=== PATIENT | female | born 1970 | race Caucasian/White ===

== ENCOUNTER 2019-10-23 17:35 | Emergency (ER) | payer MEDICAID, SELFPAY ==
[2019-10-23 17:37] VITALS: BP 143/87; PULSE 94; RESP 17; TEMP 36.8; O2SAT 99; BMI 20.7
[2019-10-23 18:18] LABS: Bacteria 0 SEEN /hpf (None Seen); Mucous, Urine 0 SEEN /hpf (<or=2+); Red Blood Cells-Urine 0 SEEN /hpf (0-5); White Blood Cells 0 SEEN /hpf (0-5)
[2019-10-23 18:25] LABS: Basophil# 0.09 X10^3/uL; Basophil% 0.6 % (0-1); Eosinophil# 0.33 X10^3/uL; Eosinophils% 2.2 % (0-5); Hematocrit 46.1 % (37-47); Lymphocyte % 22.9 % (19-41); Mean Corp Hgb Conc 32.5 g/dL (32-36); Mean Corpuscular Hgb 29.1 pg (27.0-32.0); Mean Corpuscular Volume 89.5 fL (81-99); Mean Platelet Vol. 10.6 fl (6.2-12.0); Monocyte# 0.98 X10^3/uL; Monocyte% 6.6 % (0-10); NRBC Flagged by Analyzer 0 % (0-5); Neutrophil % 67.4 % (47-70); Platelet Count 397 K/mm3 (150-450); RBC Distribution Width CV 14.6 % (11.6-14.6); RBC Distribution Width SD 48.4 fl (35.1-43.9); Red Blood Count 5.15 M/mm3 (4.2-5.4); White Blood Count 14.9 K/mm3 (4.4-11.0)
[2019-10-23 18:35] LABS: Color, Urine Yellow (Yellow); Glucose, Dipstick Normal (Normal); Ketone-Dipstick Negative (Negative); Leukocyte Esterase-Dipstick Negative /ul (Negative); Nitrite-Dipstick Negative (Negative); Occult Blood-Urine Negative /ul (Negative); Protein-Dipstick Negative (Negative); Specific Gravity, Urine 1.005 (1.002-1.030); Urine Bilirubin Dipstick Negative (Negative); Urine Clarity Clear (Clear); Urine Urobilinogen Normal (Normal)
[2019-10-23 18:36] LABS: Anion Gap 4 (5-15); BUN 13 mg/dL (7-18); BUN/Creat Ratio 16.6 RATIO (10-20); Calcium,Total 9.6 mg/dL (8.5-10.1); Chloride 103 mmol/L (98-107); Creatinine, Serum 0.78 mg/dL (0.55-1.02); EST Glomerular Filtration Rate 83 mL/min (>60); Est Glom Filt Rate - Afr Amer 100 mL/min (>60); Estimated Creatinine Clearance 65.84 ml/min; Glucose 87 mg/dL (74-106); Potassium 3.8 mmol/L (3.5-5.1); Sodium Level 138 mmol/L (136-145)
[2019-10-23 18:38] LABS: D-Dimer Quantitative (DVT/PE) 0.37 FEU/ug/m (0.27-0.49)
[2019-10-23 18:40] LABS: Squamous Epithelial Cells - UA 0-5 SEEN /hpf (5-10)
--- NOTE | 2019-10-23 18:48 | ED.VISSUMM ---
- ER Visit Summary Date of Service: 10/23/19 Chief Complaint: [Back pain] History of Present Illness: The patient is a 48 F [presents the emergency department complaining of right mid back. Patient states she said the pain there for about 2 days. Patient states it came on suddenly. She rates it as an 8 out of 10 currently and is sharp and stabbing and worse with deep breath and certain movements. Patient denies any trauma. She denies urinary symptoms. She denies recent travel or surgery. She denies any hemoptysis. She denies any fever or cough. She denies chest pain otherwise. She denies any paresthesias or pain radiating into the arms or legs. Patient has history of COPD.] Physical Examination: [HEENT-PERRLA, EOMI. Head atraumatic. Cardiovascular-heart] is regular rate and rhythm without murmurs. No rubs or clicks noted. Lungs-good aeration bilaterally. Patient does have some faint expiratory wheezes noted bilaterally. No excessive muscle use or retractions noted. Patient does have tenderness to palpation over the right posterior ribs on percussion. No rashes noted. No erythema or warmth noted. Abdomen-soft and not tender. No rebound, rigidity, or peritoneal signs. Extremities-intact x4, no edema, negative Homans sign, neurovascular intact Test Results: [CBC with differential count 14.9, hemoglobin 15, hematocrit 46, platelet 397. Chemistries unremarkable. Urinalysis was normal. D-dimer was normal 0.37. Chest x-ray showed nothing acute.] Emergency Department Course and Treatment: [Patient was medicated with 4 mg of morphine and 4 mg of Zofran.] Treatment Plan: [Patient will be given a prescription for [place] for pain. Patient advised to follow-up with primary care physician in 3 to 5 days.] Disposition: [Discharged home in stable condition] Impression: [Back pain] This note was generated with [employer] dictation software. It may contain incorrect words, spelling, and punctuation that were not noted in review of the chart prior to signing ED Disposition - Plan for ED Patient: Referrals: Amanda Gross MD [Primary Care Provider] -
--- NOTE | 2019-10-23 18:55 | RAD_ITS ---
STUDY: X-RAY CHEST REASON FOR EXAM: Female, 48 years old. RIGHT SIDED POSTERIOR RIB PAIN RADIATING THROUGH FLANK AND INTO ANTERIOR RIBS TECHNIQUE: PA and lateral views of the chest. COMPARISON: 04/06/2016. FINDINGS: Cardiac silhouette unremarkable. Pulmonary vascularity unremarkable. Aorta unremarkable. Hyperinflated lungs. No focal opacities. No pleural effusions. Upper abdomen unremarkable. Osseous structures intact. No pneumothorax. RAD/Chest PA and Lateral IMPRESSION: Hyperinflated lungs. No acute cardiopulmonary findings. Electronically Signed: Javan Zazueta, at 19:12 EDT Tel , Service support ,
[2019-10-23] MEDS: Morphine 4 MG/ML Syringe IV (19:10)
[2019-10-23] MEDS: Ondansetron 4 MG/2 ML Vial IV (19:10)
--- NOTE | 2019-10-23 19:30 | DCINST.ED_ITS ---
ED Disposition - Plan for ED Patient: Instructions: ED Neck Back Pain General, ED Spasm Back No Trauma Prescriptions: Hydrocodone Bitart/Apap 5-325 [[place] 5MG-325MG] 1 tablet PO Q4H PRN PRN 2 Days #15 tablet PRN Reason: Pain Transmission Status: Sent to [id number] Referrals: Amanda Gross MD [Primary Care Provider] - 3-5 Days
--- NOTE | 2019-10-23 19:30 | ED.DEP ---
ED Disposition - Plan for ED Patient: Instructions: ED Neck Back Pain General, ED Spasm Back No Trauma Prescriptions: Hydrocodone Bitart/Apap 5-325 [[place] 5MG-325MG] 1 tablet PO Q4H PRN PRN 2 Days #15 tablet PRN Reason: Pain Transmission Status: Sent to [facility] [id number] Referrals: Amanda Gross MD [Primary Care Provider] - 3-5 Days
[2019-10-23 19:58] VITALS: BP 140/74; PULSE 88; RESP 16; O2SAT 97
--- NOTE | 2019-10-24 09:45 | ED.RN ---
[facility] CALLED TO CLARIFY [place] PRESCRIPTION. PER DR ZALDIVAR CHANGE QUANTITY TO 12 TABLETS
== END 2019-10-23 19:59 | disposition home or self-care (01) ==
LOC: ED 18:49
PROVIDERS: Emergency Provider Emergency Medicine; PCP Internal Medicine
DX: M54.9 Dorsalgia, unspecified (principal); J44.9 Chronic obstructive pulmonary disease, unspecified; R06.00 Dyspnea, unspecified; Z72.0 Tobacco use
CPT/HCPCS: 71046; 80048; 81001; 85025; 85379; 96374; 96375; 99283; A4216; J2405

== ENCOUNTER 2020-05-27 17:51 | Emergency (ER) | payer MEDICAID, SELFPAY ==
[2020-05-27] VITALS (7 sets, daily range): BP systolic 110–136; BP diastolic 72–90; PULSE 76–103; RESP 16–24; TEMP 36.3; O2SAT 94–99; BMI 20.4
--- NOTE | 2020-05-27 18:01 | EKG12_ITS ---
Test Reason : CP Blood Pressure : / mmHG Vent. Rate : 091 BPM Atrial Rate : 091 BPM P-R Int : 168 ms QRS Dur : 080 ms QT Int : 354 ms P-R-T Axes : 090 086 083 degrees QTc Int : 435 ms Normal sinus rhythm Right atrial enlargement Borderline ECG Confirmed by LYNDSAY ROCHA, NGOZI ([id number]), content editor MAMI RIVERA ([id number]) on 05/31/2020 9:43:51 AM Referred By: Confirmed By:NGOZI UMANA MD
--- NOTE | 2020-05-27 18:05 | RAD_ITS ---
TECHNIQUE: STUDY: X-RAY CHEST REASON FOR EXAM: Female, 49 years old. TREATED FOR BRONCHITIS 2 WKS AGO. NOW CHEST PAIN, MUSCLE ACHES, SOB AND TROUBLE BREATHING. TECHNIQUE: Single frontal view of the chest. COMPARISON: 10/23/2019. FINDINGS: Cardiac silhouette unremarkable. Pulmonary vascularity unremarkable. Aorta unremarkable. No focal airspace opacities. No pleural effusions. Bilateral hyperinflation. Upper abdomen unremarkable. Osseous structures intact. No pneumothorax. RAD/Chest 1 View (Portable) IMPRESSION: Pulmonary hyperinflation may indicate an element of COPD. No focal consolidation. Electronically Signed: Javan Zazueta, at 19:51 EST Tel , Service support ,
[2020-05-27 19:14] LABS: Absolute Lymphocyte Count 3.12 X10^3/uL (0.83-4.51); Absolute Neutrophil Count 15.1 X10^3/uL (2.0-7.7); Basophil# 0.05 X10^3/uL; Basophil% 0.3 % (0-1); Eosinophil# 0.26 X10^3/uL; Eosinophils% 1.3 % (0-5); Hematocrit 44.2 % (37-47); Hemoglobin 14.2 g/dL (12.0-15.0); Lymphocyte # 3.12 X10^3/ul (4.0); Mean Corp Hgb Conc 32.1 g/dL (32-36); Mean Corpuscular Hgb 28.2 pg (27.0-32.0); Mean Corpuscular Volume 87.9 fL (81-99); Mean Platelet Vol. 10.2 fl (6.2-12.0); Monocyte# 0.93 X10^3/uL; Monocyte% 4.8 % (0-10); NRBC Flagged by Analyzer 0 % (0-5); Neutrophil # 15.06 X10^3/uL (2.7-7.7); Neutrophil % 77.2 % (47-70); Platelet Count 408 K/mm3 (150-450); RBC Distribution Width CV 14.4 % (11.6-14.6); RBC Distribution Width SD 45.9 fl (35.1-43.9); Red Blood Count 5.03 M/mm3 (4.2-5.4); White Blood Count 19.5 K/mm3 (4.4-11.0)
--- NOTE | 2020-05-27 19:18 | ED.DCSUM_ITS ---
History of Present Illness Chief Complaint: Chest Pain Informant: Patient Onset: Weeks Context: Gradual Onset Timing: Continuous Quality: Dyspnea, dyspnea on exertion and wheezing nonproductive cough Location: Respiratory Current Severity: Mild Maximum Severity: Moderate Worsened by: Cough and activity Relieved by: Nothing Associated Symptoms: No associated fever, chills or night sweats. No loss of taste or smell. Narrative: Patient is a 49-year-old woman who presents with shortness of breath, nonproductive cough and wheezing. Patient states she was treated with antibiotics 2 weeks ago with no improvement. She is a smoker. She normally smokes about 1 pack/day. She is now smoking 2 cigarettes a day. She does report nasal congestion which she attributes to allergies. She denies postnasal drainage and sore throat. Denies loss of taste or smell. She denies exposure to anyone that is been diagnosed with Covid. She denies headache, photophobia, neck pain or neck stiffness. She denies rash. She denies leg pain, swelling di scoloration. She has no history of VTE. She does report aches in her upper and lower extremity. The aches started 2 days ago. Prior similar symptoms: Yes Recent Illness/Hospitalization: Yes - Past Medical History (1) COPD (chronic obstructive pulmonary disease) Status: Acute (2) Tobacco abuse Status: Acute (3) Cervical cancer Status: Chronic Past Medical History - Allergies and Home Meds Allergies/Adverse Reactions: Allergies Penicillins [PCN] Allergy (Verified 10/23/19 17:37) Anaphylaxis Primary Care Physician: Amanda Gross MD [Primary Care Provider] - Prior records reviewed: Yes Surgical History: noncontributory, - - Total abdominal hysterectomy for cervical cancer Lives: Alone Smoking Status: Current every day smoker Alcohol: Rare Drugs: None - Family History Maternal Family History: Reports: - - Aneurysm of abdomen Paternal Family History: Reports: Cancer - Stomach Review of Systems General: Reports: Malaise. Denies: Chills, Fever, Subjective, Sweats Eyes: Denies: Visual changes - bilaterally, Blurred Vision - bilaterally ENT: Denies: Bilateral ear pain, Rhinorrhea, Sore throat Cardiovascular: Denies: Chest pain, Palpitations Respiratory: Reports: Dyspnea, Cough, Dyspnea on exertion. Denies: Sputum, Orthopnea, Paroxysmal nocturnal dyspnea Gastrointestinal: Denies: Abdominal pain, Nausea, Vomiting, Diarrhea, Melena, Hematochezia Genitourinary: Denies: Dysuria, Hematuria, Frequency Musculoskeletal: Reports: Myalgias, Arthralgias. Denies: Neck pain, Back pain, Swelling, Extremity Pain, -, - Skin: Denies: Rash, Wounds Neurological: Reports: Weakness. Denies: Headache, Parasthesia Endocrine: Denies: Polyuria, Polydipsia Hematologic: Denies: Easy bruising, Easy bleeding Physical Exam Vital Signs/Narrative: Vital Signs Temp Pulse Resp BP Pulse Ox 05/27/20 18:52 91 21 H 110/90 H 98 05/27/20 18:51 98 05/27/20 17:55 97.4 F L 103 H 18 129/85 H 98 05/27/20 17:53 97.4 F L 101 H 18 129/85 H 99 Inital Vital Signs reviewed: Yes General: Well nourished, Well developed, No Acute Distress Head: Normocephalic, Atraumatic Eyes: Perrl, EOMI. Negative for: Pale conjunctiva, Scleral icterus ENT: Moist mucous membranes, No rhinorrhea, TM's clear Neck: Supple, Nontender, No lymphadenopathy, No JVD Cardiovascular: Regular rhythm, No murmurs, Normal S1, Normal S2, Tachycardia Respiratory: No distress, Chest nontender, Wheezing, Decreased Air Movement. Negative for: CTA bilaterally, Retractions Abdomen: Soft, Nontender, Nondistended, Normal bowel sounds Rectal: Deferred Back: Nontender, Normal Inspection Extremities: Nontender, No edema Skin: Normal color, No rash, No Trauma. Negative for: Cyanosis, Diaphoresis, Jaundice Neurological: Alert, Oriented x3, Cranial nerves II-XII grossly intact, Normal Strength, Normal Sensation, Normal DTR Psychological: Normal affect Diagnostic/Tx/Re-eval Chest X-Ray - ED: 1 View, Read by ED Physician, Normal, Heart, No Acute Disease, Chronic Changes, - - Chronic changes with hyper aeration. No infiltrate, CHF, effusion or pneumothorax. Impressions Chest X-Ray 05/27/20 18:05 IMPRESSION: Pulmonary hyperinflation may indicate an element of COPD. No focal consolidation. Electronically Signed: Javan Zazueta, at 19:51 EST Tel , Service support , 05/27/20 18:05 Chest 1 View (Portable) [RAD] Stat Laboratory Results 05/27/20 05/27/20 05/27/20 16:45 16:45 16:45 WBC 19.5 H RBC 5.03 Hgb 14.2 Hct 44.2 MCV 87.9 MCH 28.2 MCHC 32.1 RDW Std Deviation 45.9 H RDW Coeff of Rui 14.4 Plt Count 408 MPV 10.2 Immature Gran % (Auto) 0.400 Neut % (Auto) 77.2 H Lymph % (Auto) 16.0 L Elbert % (Auto) 4.8 Eos % (Auto) 1.3 Baso % (Auto) 0.3 Absolute Neuts (auto) 15.1 H Absolute Lymphs (auto) 3.12 Nucleated RBC % 0 PT 15.1 H INR 1.2 Sodium 140 Potassium 4.3 Chloride 108 H Carbon Dioxide 28.0 Anion Gap 4 L BUN 14 Creatinine 0.85 Estim Creat Clear Calc 59.75 Est GFR (MDRD) Af Amer 91 Est GFR (MDRD) Non-Af 75 BUN/Creatinine Ratio 16.5 Glucose 117 H Calcium 9.2 Troponin I < 0.015 - EKG Initial EKG Interpretation: Sinus Rhythm - Normal sinus rhythm with ventricular rate of 91. ID interval is 168 ms. QRS duration 80 ms. QT duration 3 and 54 ms. [place] is normal. There may be right atrial enlargement. - Medical Decision Making Bacterial infection, COPD exacerbation, viral infection including Covid. Patient has an elevated white count. This may be due to high-dose prednisone. Since she is a smoker we will treat with doxycycline for typical atypical coverage. She was informed to take NSAIDs and she has no contraindication for her chest discomfort. ED Disposition - Plan for ED Patient: Disposition: Home or Assisted Living Diagnosis: Bronchitis, Bronchospasm, Tobacco use Instructions: ED Upper Resp Infec Abx Tx Prescriptions: Doxycycline 100 mg PO BID #14 cap Prescription Printed Referrals: Amanda Gross MD [Primary Care Provider] - 3-5 Days if not improving Additional Instructions: 1. It is in your best interest to quit smoking 2. Take antibiotics until gone 3. If you have Advil take 4 tablets every 8 hours for the next 3 to 5 days. 4. If you have Aleve take 2 tablets every 12 hours for the next 3 to 5 days
[2020-05-27 19:27] LABS: Anion Gap 4 (5-15); BUN 14 mg/dL (7-18); BUN/Creat Ratio 16.5 RATIO (10-20); Calcium,Total 9.2 mg/dL (8.5-10.1); Chloride 108 mmol/L (98-107); Creatinine, Serum 0.85 mg/dL (0.55-1.02); EST Glomerular Filtration Rate 75 mL/min (>60); Est Glom Filt Rate - Afr Amer 91 mL/min (>60); Estimated Creatinine Clearance 59.75 ml/min; Glucose 117 mg/dL (74-106); Potassium 4.3 mmol/L (3.5-5.1); Sodium Level 140 mmol/L (136-145)
[2020-05-27 19:32] LABS: International Normalized Ratio 1.2; Prothrombin Time (Protime)PT. 15.1 SECONDS (11.7-14.9)
[2020-05-27] MEDS: Naproxen 500 MG Tablet PO (22:08)
[2020-05-27] MEDS: Doxycycline 100 MG CAPSULE PO (22:08)
== END 2020-05-27 22:12 | disposition home or self-care (01) ==
PROVIDERS: Emergency Provider Emergency Medicine; PCP Internal Medicine
DX: J40 Bronchitis, not specified as acute or chronic (principal); J98.01 Acute bronchospasm; F17.210 Nicotine dependence, cigarettes, uncomplicated; Z85.41 Personal history of malignant neoplasm of cervix uteri; Z88.0 Allergy status to penicillin
CPT/HCPCS: 71045; 80048; 84484; 85025; 85610; 93005; 99285; A4216

== ENCOUNTER 2021-03-03 09:30 | Outpatient (RCR) | payer MEDICAID, SELFPAY ==
[2020-05-27 17:53] VITALS: BMI 20.4
--- NOTE | 2021-02-08 16:33 | HP.PTEVAL_ITS ---
Patient's Visit Information KARSON SALGADO is a 50 year old F referred to Physical Therapy by MADHAV DOWNING with a diagnosis of ACUTE KNEE PAIN. Date of Evaluation: 02/08/21 Physical Therapist: Drew Johnston, PT, Cert MDT, OCS - Visit Plan Frequency: 2x /Week Duration: 4 Weeks Plan: PT INTERVTIONS ROM,GRADED STRENGTHNEING QUADS/HAMS/HIP ,NUSTEP/BIKE JYOTI, MODALTIES AND FUNCTIONAL STRENGTHENING - Subjective This 50 y/o female presents to physical therapy with right knee pain. Patient injured at work fell off step stool twisted right knee with immediate pain DOI ~ 3weeks ago. Patient went to ER x-rays - for fracture and provided with crutches. Recommended Orthopedic consult thinks possible meniscus tear . MD wanted to try PT for 4weeks before doing MRI. Patient pain located anterior knee and medial aspect. Patient is unable to stand with WB and walk and needs crutches . Patient is unable to squat /kneel and difficulty with stairs. Pain described as sharp and gives way if attempt to put weight on leg. Denies paresthesia/tingling. Difficulty with sleeping. NO MEDS. Patient RTD in 4weeks. Patient knee feels as though it locks. Patient knee pain affects walking/standing affects ability to work and tasks. SOCIAL: - Pain Right Knee Pain Intensity (Out of 10): 9 Pain Intensity Range: 10 - Objective POSTURE: knee flexed. GAIT: Ambulates with crutches with NWB RLE due to pain. EDEMA: ABSENT. PALAPTION: tender medial knee. AROM: 0-110 degrees supine flexion. MMT: quads/hams 3+/5,hip flexion 3+/5,abd 3+/5 ,ankle 4/5. FLEXABILTY: hams mild tight. BALANCE: FAIR+ with crutches. STAIRS: one step at time with crutches - Special Tests R Knee Santo - Meniscus: Positive R Knee Apley - Meniscus: Positive R Knee Gerald - ACL: Negative R Knee Anterior Drawer - ACL: Negative R Knee Posterior Drawer - PCL: Negative R Knee Valgus - MCL: Negative R Knee Varus - LCL: Negative - Goals Goal 1:: Patient to be I with HEP Goal Time Frame: 4-6 Weeks Goal 2:: Patient to ambulate with improved gait pattern with increase WB and stance time Goal Time Frame: 4-6 Weeks Goal 3:: Patient decrease knee pain by 50% or> to improve function and gait Goal Time Frame: 4-6 Weeks Goal 4:: Patient increase AROM knee flexion 130 degrees flexion to improve stairs. Goal Time Frame: 4-6 Weeks Goal 5:: Patient increase strength quads/hams 4-/5 to improve gait Goal Time Frame: 4-6 Weeks Goal 6:: Patient to improve LFES score by 5 points or > to improve gait and function. Goal Time Frame: 4-6 Weeks - Rehabilitation Potential Physical Therapy Diagnosis: This patient injured right knee twisting causing pain with decrease ROM ,strength, unable to WB thus needs crutches with possible meniscus involvement thus benefit from skilled. Rehabilitation Potential: Good - Anticipated Interventions Patient/Client Instruction: Educate patient on: Condition, Plan of Care For the Purpose of:: To decrease pain, To increase ROM, To improve muscle performance and motor function, To improve ability to perform ADL's, To increase tolerance to activity/condition/position, To improve performance and ind ependence with ADL's, To improve ability of physical actions for home/community/work/leisure, To improve health of tissue, To decrease soft tissue restriction, To increase flexibility/ROM, To improve balance, To assume or resume ADL's, To improve health and function, To improve ability to perform tasks related to life management Therapeutic Exercise to Include: Strength training, Endurance training, Balance training, Postural training, Active ROM Comment: QUADS/HAMS/HIP For the Purpose of:: To decrease pain, To increase ROM, To improve nutrient delivery to tissue, To improve muscle performance and motor function, To improve ability to perform ADL's, To increase tolerance to activity/condition/position, To improve performance and independence with ADL's, To improve ability of physical actions for home/community/work/leisure, To improve gait and locomotor functions, To increase flexibility/ROM, To improve balance, To improve safety with gait, To reduce risk of recurrence TENS: Yes IF ES: Yes Cryotherapy (ice pack, ice massage): Yes Ultrasound (thermal/non thermal): Yes For the Purpose of:: To decrease pain, To increase ROM, To improve nutrient delivery to tissue, To increase oxygenation perfusion, To decrease soft tissue restriction Thank you for the opportunity to evaluate your patient. For Medicare and Medicare HMO plans, please review the plan of care and approve it. It will need to be FAXED BACK to us at [phone] for Medicare purposes. For Medicare only, by signing this I certify the plan of care. Please let me know if there are questions or concerns regarding this plan of care. Physician Signature: Date:
--- NOTE | 2021-04-21 11:53 | HP.PT.NRP ---
KARSON STEINBERG was seen in my office for initial evaluation on 02/08/21. The following Plan of Care was established for this patient: Initial Frequency: 2x /Week Initial Duration: 4 Weeks Patient/Client Instruction: Educate patient on: Condition, Plan of Care For the Purpose of:: To decrease pain, To increase ROM, To improve muscle performance and motor function, To improve ability to perform ADL's, To increase tolerance to activity/condition/position, To improve performance and independence with ADL's, To improve ability of physical actions for home/community/work/leisure, To improve health of tissue, To decrease soft tissue restriction, To increase flexibility/ROM, To improve balance, To assume or resume ADL's, To improve health and function, To improve ability to perform tasks related to life management Therapeutic Exercise to Include: Strength training, Endurance training, Balance training, Postural training, Active ROM For the Purpose of:: To decrease pain, To increase ROM, To improve nutrient delivery to tissue, To improve muscle performance and motor function, To improve ability to perform ADL's, To increase tolerance to activity/condition/position, To improve performance and independence with ADL's, To improve ability of physical actions for home/community/work/leisure, To improve gait and locomotor functions, To increase flexibility/ROM, To improve balance, To improve safety with gait, To reduce risk of recurrence TENS: Yes IF ES: Yes Cryotherapy (ice pack, ice massage): Yes Ultrasound (thermal/non thermal): Yes For the Purpose of:: To decrease pain, To increase ROM, To improve nutrient delivery to tissue, To increase oxygenation perfusion, To decrease soft tissue restriction This patient was last seen in our office . Pertinent comments regarding their Physical therapy will appear below: Patient was seen for PT for acute knee pain . Conts to use crutches . ROM and strength improving plan to follow up with MD At this point I will be discontinuing this patient from physical therapy. I would be happy to see this patient again in the future if found appropriate by the physician. Thank you! Drew Johnston, PT, Cert MDT, OCS Balance/Gait/Functional tests - Balance/Special Test Scores Lower Extremity Functional Score: 17
== END 2021-03-03 19:00 | disposition home or self-care (01) ==
LOC: PT 09:30
PROVIDERS: PCP Internal Medicine
DX: M25.561 Pain in right knee (principal)
CPT/HCPCS: 97014; 97110; 97161; G0283

== ENCOUNTER 2021-03-31 16:42 | Emergency (ER) | payer MEDICAID, SELFPAY ==
[2021-03-31 16:43] VITALS: BP 145/83; PULSE 85; PULSE 87; RESP 16; RESP 20; TEMP 36.4; O2SAT 96; O2SAT 97; BMI 22.1
--- NOTE | 2021-03-31 16:49 | EKG12_ITS ---
Test Reason : CP Blood Pressure : / mmHG Vent. Rate : 085 BPM Atrial Rate : 085 BPM P-R Int : 174 ms QRS Dur : 090 ms QT Int : 384 ms P-R-T Axes : 083 073 067 degrees QTc Int : 456 ms Normal sinus rhythm Biatrial enlargement Abnormal ECG Confirmed by LYNDSAY ROCHA, NGOZI ([id number]), serger MAMI RIVERA ([id number]) on 04/06/2021 11:18:03 AM Referred By: JACQUES Confirmed By:NGOZI UMANA MD
[2021-03-31 17:22] LABS: Absolute Lymphocyte Count 2.99 X10^3/uL (0.83-4.51); Absolute Neutrophil Count 7.5 X10^3/uL (2.0-7.7); Basophil# 0.06 X10^3/uL; Basophil% 0.5 % (0-1); Eosinophil# 0.24 X10^3/uL; Eosinophils% 2.1 % (0-5); Hematocrit 44.9 % (37-47); Hemoglobin 14.7 g/dL (12.0-15.0); Lymphocyte # 2.99 X10^3/ul (0.83-4.51); Lymphocyte % 25.7 % (19-41); Mean Corp Hgb Conc 32.7 g/dL (32-36); Mean Corpuscular Hgb 28.5 pg (27.0-32.0); Mean Platelet Vol. 11.2 fl (6.2-12.0); Monocyte# 0.84 X10^3/uL; Monocyte% 7.2 % (0-10); NRBC Flagged by Analyzer 0 % (0-5); Neutrophil # 7.47 X10^3/uL (2.7-7.7); Neutrophil % 64.2 % (47-70); Platelet Count 368 K/mm3 (150-450); RBC Distribution Width CV 14.1 % (11.6-14.6); RBC Distribution Width SD 45.2 fl (35.1-43.9); Red Blood Count 5.16 M/mm3 (4.2-5.4); White Blood Count 11.6 K/mm3 (4.4-11.0)
[2021-03-31] MEDS: Aspirin 81 MG TAB.CHEW 324 MG PO (17:38)
[2021-03-31 17:57] LABS: AST(SGOT) 17 U/L (15-37); Alanine Aminotransfer ALT/SGPT 16 U/L (13-56); Albumin, Serum 3.6 g/dL (3.2-5.0); Alkaline Phosphatase 102 U/L (45-117); Anion Gap 3 (5-15); BUN 16 mg/dL (7-18); BUN/Creat Ratio 18.7 RATIO (10-20); Bilirubin, Direct < 0.05 mg/dL (0.00-0.30); Calcium,Total 8.8 mg/dL (8.5-10.1); Chloride 106 mmol/L (98-107); Creatinine, Serum 0.86 mg/dL (0.55-1.02); EST Glomerular Filtration Rate 74 mL/min (>60); Est Glom Filt Rate - Afr Amer 90 mL/min (>60); Globulin 4.6 g/dL (2.2-4.2); Glucose 110 mg/dL (74-106); Lipase 139 U/L (73-393); Potassium 4.2 mmol/L (3.5-5.1); Protein, Total 8.2 g/dL (6.4-8.2); Sodium Level 137 mmol/L (136-145); Troponin-I HS 4 pg/mL (3.0-54.0)
[2021-03-31 17:58] VITALS: BP 114/79; PULSE 78; RESP 14; O2SAT 98
--- NOTE | 2021-03-31 18:03 | RAD_ITS ---
STUDY: X-RAY CHEST REASON FOR EXAM: Female, 50 years old. chest pain TECHNIQUE: PA and lateral views of the chest. COMPARISON: 05/27/2020. FINDINGS: The lungs are clear and expanded. There is no demonstrated pleural abnormality. Normal size heart. Normal mediastinum and becki. Normal visualized pulmonary arteries. Normal visualized aortic arch and descending thoracic aorta. Normal visualized thoracic spine. Normal visualized ribs, clavicles, and shoulders. There is no demonstrated abnormality of the visualized soft tissue structures of the upper abdomen. RAD/Chest PA and Lateral IMPRESSION: Normal x-ray examination of the chest. Electronically Signed: Louisa Holland MD at 19:08 EDT Tel , Service support ,
[2021-03-31 18:19] LABS: D-Dimer Quantitative (DVT/PE) 0.52 FEU/ug/m (0.27-0.49)
[2021-03-31 18:38] VITALS: BP 114/75; PULSE 61; RESP 12; O2SAT 98
--- NOTE | 2021-03-31 18:41 | CT_ITS ---
STUDY: CTA CHEST REASON FOR EXAM: Female, 50 years old. Chest pain with elevated D-dimer RADIATION DOSAGE (If Supplied By Facility): CTDIvol = ( 4.69 ) mGy, DLP = ( 106.63 ) mGycm TECHNIQUE: The examination was performed with the intravenous administration of IV 100mL Isovue-370. Post-processing of the angiographic images was performed, with multiplanar reformation and 3D reconstruction. Individualized dose optimization techniques were used for this CT. COMPARISON: None. FINDINGS: Heart size and pericardium are unremarkable. The aorta is normal in caliber. No aneurysm or dissection. There is no mediastinal mass or adenopathy. There is no hilar or axillary adenopathy. There is no evidence of pulmonary embolus. There is no pleural effusion. There is no pulmonary consolidation. Visualized abdomen is unremarkable. There is no osseous abnormality. CT/CTA Chest W/WO Contrast IMPRESSION: No acute findings. No pulmonary embolism or arterial dissection. Electronically Signed: Louisa Holland MD at 20:09 EDT Tel , Service support ,
[2021-03-31 19:00] VITALS: BP 130/76; PULSE 84; RESP 14; O2SAT 97
[2021-03-31 19:24] LABS: Troponin-I HS 4 pg/mL (3.0-54.0)
[2021-03-31 20:11] VITALS: BP 117/78; PULSE 61; RESP 16; O2SAT 97
--- NOTE | 2021-03-31 20:38 | EDS_ITS ---
HPI History of Present Illness Chief Complaint: Chest Pain Narrative Narrative: Patient is a 50-year-old female who states that today around 10 or 11 AM she noticed brief episodes of sharp stabbing chest pain. She states the pain would begin in the right side of her chest and shoot across the left. She reports the pain would only last a few seconds and resolve. She denies any nausea vomiting diaphoresis or shortness of breath associated with this. She denies any recent fevers chills or trauma. She states she is concerned this could be cardiac in nature and therefore comes in for evaluation PFSH PFS Home Medications aspirin 81 mg PO DAILY@0800 #30 tab.chew 10/14/15 [Rx Last Taken Unknown] ibuprofen 800 mg PO Q8 PRN #30 tablet 10/14/15 [Rx Last Taken Unknown] albuterol sulfate 2.5 mg INHALATION Q6H PRN PRN 02/13/16 [History Last Taken Unknown] albuterol sulfate [Ventolin Hfa (SP)] 1 puff INHALATION Q4H PRN PRN 02/13/16 [History Last Taken Unknown] fluticasone propionate 1 spray NASAL BID 02/13/16 [History Last Taken Unknown] tiotropium bromide [Spiriva 18 MCG] 1 puff INHALATION DAILY 02/13/16 [History Last Taken Unknown] naproxen 500 mg PO BID PRN #20 tab 05/16/16 [Rx Last Taken Unknown] Allergy/AdvReac Type Severity Reaction Status Date / Time Penicillins [PCN] Allergy Anaphylaxis Verified 03/31/21 16:43 Surgical History History of appendectomy History of hysterectomy Social History (System 02/25/19 @ 11:06 by Yesica Dobbins) Smoking Status: Current every day smoker tobacco type: cigarettes ROS ROS ED Constitutional Constitutional ED: Denies chills or fever(s) ENT ENT ED: Denies sore throat Cardiovascular Cardiovascular: Reports chest pain Respiratory/Chest Respiratory/Chest: Denies cough or dyspnea Gastrointestinal Gastrointestinal: Denies abdominal pain, diarrhea, nausea or vomiting Genitourinary Genitourinary ED: Denies dysuria Musculoskeletal Musculoskeletal: Denies myalgias Integumentary Denies rash Neurologic Neurologic: Denies headache(s) Hematologic/Lymphatic Hematologic/Lymphatic: Denies easy bleeding or easy bruising EXAM Physical Exam Const Vital Signs: 03/31/21 16:43 03/31/21 16:51 03/31/21 17:58 Temperature 97.5 F L Temperature Source Temporal Pulse Rate 87 78 Respiratory Rate 20 H 14 Respiratory Effort Normal Non-Labored Respiratory Pattern Normal Blood Pressure 145/83 H 114/79 Blood Pressure Mean 103 90 Pulse Ox 96 98 Oxygen Delivery Method Room Air Room Air 03/31/21 18:38 03/31/21 19:00 03/31/21 20:11 Temperature Temperature Source Pulse Rate 61 84 61 Respiratory Rate 12 14 16 Respiratory Effort Respiratory Pattern Blood Pressure 114/75 130/76 H 117/78 Blood Pressure Mean 88 94 91 Pulse Ox 98 97 97 Oxygen Delivery Method Room Air Room Air Room Air Positive well nourished and well developed General Appearance ED: well developed HEENT Reports moist mucous membranes Eyes PERRL and EOMs intact bilaterally Neck supple Chest Wall palpation of chest normal Chest Narrative: No bony deformity or crepitance Resp normal respiratory effort Resp Narrative: Breath sounds are diminished throughout with expiratory wheeze and rhonchi consistent with history of COPD Cardio regular rate and regular rhythm Rate: other Other Details: Radial pulses are plus 2 out of 4 bilaterally are equal and symmetric GI normal to inspection, nondistended, normoactive bowel sounds, soft to palpation, non-tender and non-distended GI Narrative: No voluntary guarding no rigidity no pulsatile mass Auscultation: normoactive bowel sounds Palpation: soft Extremity normal to inspection Extremity Narrative: No asymmetric edema no pitting edema negative Homans' sign bilaterally Neuro oriented x3 and CN's II-XII intact bilaterally Sensorium / Orientation: awake and alert Psych mental status grossly normal Skin no rashes or lesions noted Heart Score History: Slightly/Non-Suspicious ECG: Normal Age: >45 - <65 years Risk Factors: 1 or 2 Risk Factors Troponin: </= Normal Limit Score: 2 MDM MDM MDM Narrative Medical decision making narrative: Patient presented to the ER in no acute distress with stable vital. History and risk factors are low for cardiac disease but based on her symptoms I did elect to perform a cardiac work-up. Initial and delta troponin were normal but D-dimer is just slightly elevated so a CTA was added. CTA revealed no acute lung pathology such as dissection pneumonia pneumothorax or pulmonary embolus. Therefore at this time is overall work-up is negative and her risk factors of cardiac disease are low she is safe for discharge Lab Data Labs: Laboratory Results - last 24 hr 03/31/21 03/31/21 03/31/21 16:47 16:47 17:44 WBC 11.6 H RBC 5.16 Hgb 14.7 Hct 44.9 MCV 87.0 MCH 28.5 MCHC 32.7 RDW Std Deviation 45.2 H RDW Coeff of Rui 14.1 Plt Count 368 MPV 11.2 Immature Gran % (Auto) 0.300 Neut % (Auto) 64.2 Lymph % (Auto) 25.7 [place] % (Auto) 7.2 Eos % (Auto) 2.1 Baso % (Auto) 0.5 Absolute Neuts (auto) 7.5 Absolute Lymphs (auto) 2.99 Nucleated RBC % 0 D-Dimer Quant (PE/DVT) 0.52 H* Sodium 137 Potassium 4.2 Chloride 106 Carbon Dioxide 28.0 Anion Gap 3 L BUN 16 Creatinine 0.86 Estim Creat Clear Calc 58.40 Est GFR (MDRD) Af Amer 90 Est GFR (MDRD) Non-Af 74 BUN/Creatinine Ratio 18.7 Glucose 110 H Calcium 8.8 Total Bilirubin 0.20 Direct Bilirubin < 0.05 AST 17 ALT 16 Alkaline Phosphatase 102 Troponin I High Sens 4 Total Protein 8.2 Albumin 3.6 Globulin 4.6 H Lipase 139 03/31/21 Unknown WBC RBC Hgb Hct MCV MCH MCHC RDW Std Deviation RDW Coeff of Rui Plt Count MPV Immature Gran % (Auto) Neut % (Auto) Lymph % (Auto) [place] % (Auto) Eos % (Auto) Baso % (Auto) Absolute Neuts (auto) Absolute Lymphs (auto) Nucleated RBC % D-Dimer Quant (PE/DVT) Sodium Potassium Chloride Carbon Dioxide Anion Gap BUN Creatinine Estim Creat Clear Calc Est GFR (MDRD) Af Amer Est GFR (MDRD) Non-Af BUN/Creatinine Ratio Glucose Calcium Total Bilirubin Direct Bilirubin AST ALT Alkaline Phosphatase Troponin I High Sens 4 Total Protein Albumin Globulin Lipase Radiography Diagnostic Testing: Radiology Impression Chest X-Ray 03/31/21 18:03 IMPRESSION: Normal x-ray examination of the chest. Electronically Signed: Louisa Holland MD at 19:08 EDT Tel , Service support , Chest CTA 03/31/21 18:41 IMPRESSION: No acute findings. No pulmonary embolism or arterial dissection. Electronically Signed: Louisa Holland MD at 20:09 EDT Tel , Service support , Discharge Plan Triage Chief Complaint: Chest Pain ED Provider: Selvin Jennings Dx/Rx/DC Orders Clinical Impression: Nonspecific chest pain Instructions: ED Chest Pain, Uncertain Cause Prescriptions: No Action ibuprofen 400 MG tablet 800 mg PO Q8 PRN (Reason: Pain) Qty: 30 RF: 0 aspirin 81 MG tablet,chewable 81 mg PO DAILY@0800 Qty: 30 RF: 1 albuterol sulfate 2.5 MG/3 ML solution for nebulization 2.5 mg inhalation Q6H PRN PRN (Reason: Sob &/Or Wheezing) RF: 0 albuterol sulfate [Ventolin HFA] 1 INHALER inhaler 1 puff inhalation Q4H PRN PRN (Reason: Sob &/Or Wheezing) RF: 0 fluticasone propionate 1 SPRAY spray,suspension 1 spray NASAL BID RF: 0 Spiriva with HandiHaler 1 PUFF inhaler 1 puff inhalation DAILY RF: 0 naproxen 500 MG tablet 500 mg PO BID PRN Qty: 20 RF: 0 Primary Care Provider: Amanda Gross Referrals: Amanda Gross MD [Primary Care Provider] - Disposition Disposition: Home, Self Care
[2021-03-31 21:09] VITALS: BP 121/85; RESP 16
== END 2021-03-31 21:10 | disposition home or self-care (01) ==
PROVIDERS: Emergency Provider Emergency Medicine; PCP Internal Medicine
DX: R07.89 Other chest pain (principal); F17.210 Nicotine dependence, cigarettes, uncomplicated; Z79.82 Long term (current) use of aspirin
CPT/HCPCS: 71046; 71275; 80048; 80076; 83690; 84484; 85025; 85379; 93005; 99284; Q9967; A4216

== ENCOUNTER 2021-05-26 12:50 | Outpatient (CLI) | payer MEDICAID, SELFPAY ==
[2021-05-26] MEDS: 0.9% Saline Lock 10 ML Syringe IV (13:11)
[2021-05-26 13:13] VITALS: BP 147/85; PULSE 77; RESP 16; TEMP 36.6; O2SAT 98; BMI 21.7
[2021-05-26 13:45] VITALS: BP 149/73; PULSE 68; RESP 17; TEMP 36.4; O2SAT 97
[2021-05-26 14:43] VITALS: BP 145/83; PULSE 71; RESP 16; TEMP 36.4; O2SAT 100
== END 2021-05-26 14:44 | disposition home or self-care (01) ==
LOC: MS3OUT 12:50 → MS3 12:51
PROVIDERS: PCP Internal Medicine; Referring Provider Nurse Practitioner Adult Health; Visit Provider Nurse Practitioner Adult Health
DX: Z23 Encounter for immunization (principal); U07.1 COVID-19
CPT/HCPCS: J7050; M0245; Q0245; A4216

== ENCOUNTER 2021-08-09 18:14 | Emergency (ER) | payer MEDICAID, SELFPAY ==
[2021-08-09 18:15] VITALS: BP 120/81; PULSE 94; RESP 14; TEMP 36.2; O2SAT 96; BMI 21.7
--- NOTE | 2021-08-09 18:48 | EDS_ITS ---
HPI History of Present Illness Chief Complaint: Back Detail of Chief Complaint: Right flank pain Informant: patient Narrative Narrative: Patient presents to the emergency department complaint of right-sided back pain that started yesterday. She describes sharp stabbing pains intermittently about once an hour that lasts a couple of minutes. There is no radiation of the pain. She is never had pain like this before. She denies any back injury. She has no history of kidney stones. She denies dysuria, urgency, or frequency. Patient denies abdominal pain. Patient currently not having any pain. Pain is not positional. Prior similar symptoms: No PFSH PFSH Medical History (Updated 08/09/21 @ 20:[address] So Haley, ) COPD (chronic obstructive pulmonary disease) Home Medications aspirin 81 mg PO DAILY@0800 #30 tab.chew 10/14/15 [Rx Last Taken Unknown] ibuprofen 800 mg PO Q8 PRN #30 tablet 10/14/15 [Rx Last Taken Unknown] albuterol sulfate 2.5 mg INHALATION Q6H PRN PRN 02/13/16 [History Last Taken Unknown] albuterol sulfate [Ventolin Hfa (SP)] 1 puff INHALATION Q4H PRN PRN 02/13/16 [History Last Taken Unknown] fluticasone propionate 1 spray NASAL BID 02/13/16 [History Last Taken Unknown] tiotropium bromide [Spiriva 18 MCG] 1 puff INHALATION DAILY 02/13/16 [History Last Taken Unknown] naproxen 500 mg PO BID PRN #20 tab 05/16/16 [Rx Last Taken Unknown] cyclobenzaprine 10 mg PO TID PRN #20 tablet 08/09/21 [Rx Last Taken Unknown] hydrocodone-acetaminophen 1 tab PO Q4H PRN PRN 2 Days #10 tablet 08/09/21 [Rx Last Taken Unknown] Allergy/AdvReac Type Severity Reaction Status Date / Time Penicillins [PCN] Allergy Anaphylaxis Verified 08/09/21 18:15 Surgical History History of appendectomy History of hysterectomy Social History (System 02/25/19 @ 11:06 by Yesica Dobbins) Smoking Status: Current every day smoker tobacco type: cigarettes ROS ROS ED Constitutional Constitutional ED: Reports systems reviewed and no addt'l complaints, except as documented; Denies body ache(s), change in weight or chills Eyes Eyes: Denies acute decrease in peripheral vision, change in vision, double vision or loss of vision ENT ENT ED: Reports none; Denies ear pain, lip swelling, loss taste/smell, neck pain, otalgia or sore throat Cardiovascular Cardiovascular: Reports none; Denies abdominal pain, chest pain with activity, leg edema, lightheadedness, palpitations, rapid heart rate or syncope Respiratory/Chest Respiratory/Chest: Reports none; Denies change in mental status, dry cough, dyspnea, hemoptysis, shortness of breath at rest or shortness of breath with exertion Gastrointestinal Gastrointestinal: Reports none; Denies abdominal pain, change in stool character, diarrhea, hematemesis, hematochezia, melena, rectal bleeding or vomiting Genitourinary Genitourinary ED: Reports none; Denies abdominal discomfort, anuria, dysuria, genital pain or polyuria Musculoskeletal Musculoskeletal: Reports none and back pain; Denies arthralgias, difficulty walking, extremity pain, muscle weakness or myalgias Integumentary Reports none; Denies abscess or rash Neurologic Neurologic: Reports none; Denies abnormal gait, confusion, focal weakness, frequent falls, headache(s), loss of vision, numbness, paresthesias, radicular pain, vertigo or weakness Psychiatric Psychiatric: Reports systems reviewed and no addt'l complaints, except as documented and none; Denies behavioral changes, confusion, difficulty concentrating, hallucinations, suicidal ideation, tactile hallucinations or visual hallucinations Endocrine Endocrinology: Denies none, cold intolerance, excessive sweating, fatigue or heat intolerance Hematologic/Lymphatic Hematologic/Lymphatic: Reports none; Denies anemia, easy bleeding or easy bruising Allergic/Immunologic Allergic/Immunologic ED: Denies as per HPI, none, lip swelling, mouth swelling, throat swelling, tongue swelling or hives EXAM Physical Exam Const Vital Signs: 08/09/21 18:15 08/09/21 19:02 08/09/21 19:25 Temperature 97.1 F L Temperature Source Temporal Pulse Rate 94 106 H Respiratory Rate 14 20 H Respiratory Effort Normal Non-Labored Blood Pressure 120/81 H 115/80 Blood Pressure Mean 94 91 Pulse Ox 96 95 Oxygen Delivery Method Room Air Room Air Positive well nourished and well developed General Appearance ED: well developed and NAD HEENT Reports TM's clear and moist mucous membranes normocephalic and atraumatic; Negative for trauma or tenderness Tympanic Membrane ED: Yes TM's clear Eyes PERRL and EOMs intact bilaterally General Eye ED: Negative for pale conjunctiva or scleral icterus Neck no lymphadenopathy, supple and no JVD General: Negative for tenderness Chest Wall inspection of chest normal and palpation of chest normal Chest: Negative for tenderness Resp normal respiratory effort and clear to auscultation bilaterally Effort and Inspection: Negative for respiratory distress or pain with movement Auscultation: Negative for rhonchi, wheezes or diminished lung sounds Cardio regular rate, regular rhythm, S1 normal heart sound, S2 normal heart sound and no murmurs Peripheral Pulses: pulses 2+ throughout GI normal to inspection, nondistended, normoactive bowel sounds, soft to palpation, non-tender, non-distended and no masses Back/Spine no CVA tenderness and no thoracic nor lumbar tenderness Back/Spine Narrative: I am unable to reproduce patient's back pain with palpation. Negative straight leg raises. Deep tendon reflexes are plus 2 out of 4 bilaterally at the patella and Achilles. Patient has normal L5 extension bilaterally. Extremity normal to inspection General Extremety ED: Negative for edema General Extremity: Negative for edema Neuro oriented x3, CN's II-XII intact bilaterally, no sensory deficits noted and gait normal Sensorium / Orientation: awake, alert, oriented to person, oriented to place and oriented to time Motor Exam: strength 5/5 throughout and strength abnormal Psych mental status grossly normal Skin no rashes or lesions noted and no wounds MDM MDM MDM Narrative Medical decision making narrative: IV line established on arrival. Patient did not anything for pain. Lab work-up was unremarkable and urinalysis was unremarkable. CT flank was unremarkable. At this point etiology of her pain is unclear although I suspect possibly muscle spasm or nerve pain. Patient will be given a prescription for Flexeril and a few [place] for pain. Patient advised to follow-up with her primary care physician 3 to 5 days. She was advised to return if worsening pain, weakness in extremities, change in bowel or bladder function, or condition should worsen anyway. Lab Data Labs: Laboratory Results - last 24 hr 08/09/21 08/09/21 08/09/21 18:58 18:58 19:20 WBC 11.2 H RBC 4.53 Hgb 13.3 Hct 39.9 MCV 88.1 MCH 29.4 MCHC 33.3 RDW Std Deviation 45.7 H RDW Coeff of Rui 14.2 Plt Count 312 MPV 10.2 Immature Gran % (Auto) 0.300 Neut % (Auto) 62.4 Lymph % (Auto) 26.1 [place] % (Auto) 8.3 Eos % (Auto) 2.4 Baso % (Auto) 0.5 Absolute Neuts (auto) 7.0 Absolute Lymphs (auto) 2.92 Nucleated RBC % 0 Sodium 140 Potassium 3.8 Chloride 107 Carbon Dioxide 31.0 Anion Gap 2 L BUN 18 Creatinine 0.87 Estim Creat Clear Calc 57.73 Est GFR (MDRD) Af Amer 88 Est GFR (MDRD) Non-Af 73 BUN/Creatinine Ratio 20.7 H Glucose 86 Calcium 8.7 Urine Color Yellow Urine Clarity Clear Urine pH 7.0 Ur Specific [place] 1.010 Urine Protein Negative Urine Glucose (UA) Normal Urine Ketones Negative Urine Occult Blood Negative Urine Nitrite Negative Urine Bilirubin Negative Urine Urobilinogen Normal Ur Leukocyte Esterase Negative Urine RBC 0 SEEN Urine WBC 0 SEEN Ur Squamous Epith Cells 0-5 SEEN Urine Bacteria RARE Urine Mucus 0 SEEN Radiography Diagnostic Testing: Clinical Impression(s) from Imaging Studies Abdomen/Pelvis CT 08/09/21 18:48 IMPRESSION: 1. No evidence of renal calcifications or CT evidence of obstructive uropathy. 2. No masses bowel obstruction abscess free fluid or free air. No evidence diverticulitis. 3. The appendix is not visualized, however no evidence of appendicitis. 4. No radiodense calcifications of gallbladder, no pericholecystic fluid or ductal dilatation.. Electronically Signed: Servando Ferguson MD at 20:30 EST , Discharge Plan Triage Chief Complaint: Back Other Complaint: Flank Pain ED Provider: So Haley Dx/Rx/DC Orders Clinical Impression: Back pain Instructions: ED Back Spasm, No Trauma, ED Back and Neck Pain, General Prescriptions: New cyclobenzaprine [cyclobenzaprine] 10 MG tablet 10 mg PO TID PRN (Reason: Muscle Spasm) Qty: 20 RF: 0 hydrocodone-acetaminophen [hydrocodone-acetaminophen] 1 TABLET tablet 1 tab PO Q4H PRN PRN (Reason: Pain) 2 Days Qty: 10 RF: 0 No Action ibuprofen 400 MG tablet 800 mg PO Q8 PRN (Reason: Pain) Qty: 30 RF: 0 aspirin 81 MG tablet,chewable 81 mg PO DAILY@0800 Qty: 30 RF: 1 albuterol sulfate 2.5 MG/3 ML solution for nebulization 2.5 mg inhalation Q6H PRN PRN (Reason: Sob &/Or Wheezing) RF: 0 albuterol sulfate [Ventolin HFA] 1 INHALER inhaler 1 puff inhalation Q4H PRN PRN (Reason: Sob &/Or Wheezing) RF: 0 fluticasone propionate 1 SPRAY spray,suspension 1 spray NASAL BID RF: 0 Spiriva with HandiHaler 1 PUFF inhaler 1 puff inhalation DAILY RF: 0 naproxen 500 MG tablet 500 mg PO BID PRN Qty: 20 RF: 0 Primary Care Provider: Amanda Gross Referrals: mAanda Gross MD [Primary Care Provider] - 3-5 Days Disposition Disposition: Home, Self Care
--- NOTE | 2021-08-09 18:48 | CT_ITS ---
INDICATION: right flank pain EXAMINATION: CT ABDOMEN AND PELVIS WITHOUT CONTRAST - CT Abdomen And Pelvis W/O Contrast Injection TECHNIQUE: Helically acquired images were obtained of the abdomen and pelvis without oral or IV contrast. A radiation dose optimization technique was used for this scan. IV Contrast dosage and agent: None. Oral contrast: None. Radiation Dose (provided by facility) CTDIvol (6.1 ) mGy, DLP ( 295.49) mGy-cm COMPARISON: None. FINDINGS: LOWER CHEST: Lung bases are clear. No cardiomegaly or pericardial effusion. LIVER: Normal size configuration density given noncontrast imaging No focal mass. GALLBLADDER AND BILIARY TREE: No calcified gallstones. No gallbladder distension or wall edema. No intra- or extrahepatic biliary ductal dilation. PANCREAS: No focal cystic or solid mass. SPLEEN: Normal size without focal cystic or solid mass. ADRENAL GLANDS: No nodules. KIDNEYS AND URETERS: Normal renal size and position. No hydronephrosis. PERITONEUM: No ascites or free air. No other fluid collection. BOWEL: The appendix is not adequately visualized however no CT evidence of appendicitis. No stomach or bowel distension. No focal inflammatory change. No evidence diverticulitis. LYMPH NODES: No enlarged mesenteric or retroperitoneal lymph nodes. VESSELS: Minimal scattered vascular calcifications in the aorta. No aneurysmal dilatation. URINARY BLADDER: Unremarkable. REPRODUCTIVE ORGANS: Postop change of prior hysterectomy. ABDOMINAL WALL: No discrete abdominal or pelvic wall hernia. BONES: No lytic or blastic abnormality. CT/Abdomen/Pelvis without Cont IMPRESSION: 1. No evidence of renal calcifications or CT evidence of obstructive uropathy. 2. No masses bowel obstruction abscess free fluid or free air. No evidence diverticulitis. 3. The appendix is not visualized, however no evidence of appendicitis. 4. No radiodense calcifications of gallbladder, no pericholecystic fluid or ductal dilatation.. Electronically Signed: Servando Ferguson MD at 20:30 EST ,
[2021-08-09 19:08] LABS: Absolute Lymphocyte Count 2.92 X10^3/uL (0.83-4.51); Basophil# 0.06 X10^3/uL; Basophil% 0.5 % (0-1); Eosinophil# 0.27 X10^3/uL; Eosinophils% 2.4 % (0-5); Hematocrit 39.9 % (37-47); Hemoglobin 13.3 g/dL (12.0-15.0); Lymphocyte # 2.92 X10^3/ul (0.83-4.51); Lymphocyte % 26.1 % (19-41); Mean Corp Hgb Conc 33.3 g/dL (32-36); Mean Corpuscular Hgb 29.4 pg (27.0-32.0); Mean Corpuscular Volume 88.1 fL (81-99); Mean Platelet Vol. 10.2 fl (6.2-12.0); Monocyte# 0.93 X10^3/uL; Monocyte% 8.3 % (0-10); NRBC Flagged by Analyzer 0 % (0-5); Neutrophil # 6.99 X10^3/uL (2.7-7.7); Neutrophil % 62.4 % (47-70); Platelet Count 312 K/mm3 (150-450); RBC Distribution Width CV 14.2 % (11.6-14.6); RBC Distribution Width SD 45.7 fl (35.1-43.9); Red Blood Count 4.53 M/mm3 (4.2-5.4); White Blood Count 11.2 K/mm3 (4.4-11.0)
[2021-08-09 19:22] LABS: Anion Gap 2 (5-15); BUN 18 mg/dL (7-18); BUN/Creat Ratio 20.7 RATIO (10-20); Calcium,Total 8.7 mg/dL (8.5-10.1); Chloride 107 mmol/L (98-107); Creatinine, Serum 0.87 mg/dL (0.55-1.02); EST Glomerular Filtration Rate 73 mL/min (>60); Est Glom Filt Rate - Afr Amer 88 mL/min (>60); Estimated Creatinine Clearance 57.73 ml/min; Glucose 86 mg/dL (74-106); Potassium 3.8 mmol/L (3.5-5.1); Sodium Level 140 mmol/L (136-145)
[2021-08-09 19:25] VITALS: BP 115/80; PULSE 106; RESP 20; O2SAT 95
[2021-08-09 19:32] LABS: Mucous, Urine 0 SEEN /hpf (<or=2+); Red Blood Cells-Urine 0 SEEN /hpf (0-5); White Blood Cells 0 SEEN /hpf (0-5)
[2021-08-09 20:12] LABS: Color, Urine Yellow (Yellow); Glucose, Dipstick Normal (Normal); Ketone-Dipstick Negative (Negative); Leukocyte Esterase-Dipstick Negative /ul (Negative); Nitrite-Dipstick Negative (Negative); Occult Blood-Urine Negative /ul (Negative); Protein-Dipstick Negative (Negative); Urine Bilirubin Dipstick Negative (Negative); Urine Clarity Clear (Clear); Urine Urobilinogen Normal (Normal)
[2021-08-09 20:39] LABS: Bacteria RARE /hpf (None Seen); Squamous Epithelial Cells - UA 0-5 SEEN /hpf (5-10)
[2021-08-09 20:49] VITALS: BP 116/79; PULSE 79; RESP 16; O2SAT 97
== END 2021-08-09 20:49 | disposition home or self-care (01) ==
PROVIDERS: Emergency Provider Emergency Medicine; PCP Internal Medicine; Visit Provider Emergency Medicine
DX: M54.9 Dorsalgia, unspecified (principal); J44.9 Chronic obstructive pulmonary disease, unspecified; R10.9 Unspecified abdominal pain; F17.210 Nicotine dependence, cigarettes, uncomplicated
CPT/HCPCS: 74176; 80048; 81001; 85025; 99282; A4216

== ENCOUNTER 2021-11-28 15:35 | Emergency (ER) | payer MEDICAID, SELFPAY ==
[2021-11-28 15:36] VITALS: BP 146/95; PULSE 93; RESP 18; TEMP 36.5; O2SAT 99; BMI 23.2
[2021-11-28 15:46] VITALS: PULSE 82; RESP 24; O2SAT 99
[2021-11-28 15:50] VITALS: O2SAT 99
--- NOTE | 2021-11-28 15:52 | ED.VIS.DYS ---
HPI History of Present Illness Chief Complaint: Shortness of Breath Informant: patient Onset/Context/Timing Onset: Weeks (2) Context: gradual Timing: Continuous Quality: Positive for Wheezing Worsened by: Nothing Relieved by: Nothing Associated Symptoms Negative for cough, rhinorrhea, ear pain, fever, sore throat, chills, sweats, clear sputum, white sputum, yellow sputum or green sputum Chest Pain: Positive for None Narrative Narrative: Patient presents with shortness of breath that has been getting worse over the past 2 weeks. Patient states it is gradually gotten worse. Patient states she has been seeing her doctor every other day for this. Patient states her breathing became worse today and she needed to come to the emergency department. Patient states her breathing is worse when she is out in the heat. Patient states nothing seems to help with it. Patient states she has been using her home aerosols and inhalers as prescribed. Patient denies any cough. Patient denies any fevers or chills. Patient denies any chest pain. [facility] Medical History COPD (chronic obstructive pulmonary disease) Home Medications aspirin 81 mg PO DAILY@0800 #30 tab.chew 10/14/15 [Rx Last Taken Unknown] albuterol sulfate 2.5 mg INHALATION Q6H PRN PRN 02/13/16 [History Last Taken Unknown] albuterol sulfate [Ventolin Hfa (SP)] 1 puff INHALATION Q4H PRN PRN 02/13/16 [History Last Taken Unknown] fluticasone propionate 1 spray NASAL BID 02/13/16 [History Last Taken Unknown] tiotropium bromide [Spiriva 18 MCG] 1 puff INHALATION DAILY 02/13/16 [History Last Taken Unknown] loratadine [Claritin] 10 mg PO DAILY 11/28/21 [History Last Taken Unknown] prednisone 60 mg PO DAILY 11/28/21 [History Last Taken Unknown] Allergy/AdvReac Type Severity Reaction Status Date / Time Penicillins [PCN] Allergy Anaphylaxis Verified 11/28/21 15:37 Surgical History History of appendectomy History of hysterectomy Social History Smoking Status: Current every day smoker tobacco type: cigarettes ROS ROS ED Constitutional Constitutional ED: Denies chills or fever(s) Eyes Eyes: Denies blurry vision or change in vision ENT ENT ED: Denies rhinorrhea or sore throat Cardiovascular Cardiovascular: Denies chest pain or palpitations Respiratory/Chest Respiratory/Chest: Reports dyspnea; Denies cough Gastrointestinal Gastrointestinal: Denies nausea or vomiting Genitourinary Genitourinary ED: Denies dysuria or hematuria Musculoskeletal Musculoskeletal: Denies back pain or neck pain Integumentary Denies abscess or rash Neurologic Neurologic: Denies headache(s) or weakness Allergic/Immunologic Allergic/Immunologic ED: Denies mouth swelling or urticaria EXAM Physical Exam Const Vital Signs: 11/28/21 15:36 11/28/21 15:46 11/28/21 15:50 Temperature 97.7 F L Temperature Source Temporal Pulse Rate 93 82 Respiratory Rate 18 24 H Respiratory Effort Normal Blood Pressure 146/95 H Blood Pressure Mean 112 Pulse Ox 99 99 Oxygen Delivery Method Room Air Room Air Room Air 11/28/21 16:09 Temperature Temperature Source Pulse Rate 71 Respiratory Rate 17 Respiratory Effort Blood Pressure Blood Pressure Mean Pulse Ox 99 Oxygen Delivery Method Room Air Positive well nourished and well developed General Appearance ED: well developed HEENT Reports moist mucous membranes Neck supple and no JVD Resp normal respiratory effort Auscultation: wheezes expiratory wheezes and throughout and diminished lung sounds diffuse Cardio regular rate, regular rhythm and no murmurs GI normal to inspection, nondistended, normoactive bowel sounds and non-tender Palpation: soft Extremity normal to inspection General Extremety ED: Negative for edema or tenderness General Extremity: Negative for edema Neuro oriented x3, CN's II-XII intact bilaterally and no sensory deficits noted Sensorium / Orientation: alert Motor Exam: strength 5/5 throughout Psych mental status grossly normal Skin no rashes or lesions noted MDM MDM MDM Narrative Medical decision making narrative: Patient was given a DuoNeb aerosol here initially. Patient was ordered prednisone. However, patient told nursing staff that she was on prednisone 60 mg daily and took a dose this morning. Therefore, that the prednisone was withheld here. CBC showed a mild leukocytosis of 12.6. This is likely due to the prednisone. Comprehensive metabolic profile was within normal limits. Portable 1 view chest x-ray was obtained. On my interpretation, lung lees are clear. There is normal cardiac silhouette. Bony thorax is normal. There is no acute process noted. Radiologist also interpreted the x-ray and agrees. COVID-19 rapid antigen was obtained and was negative. Influenza A and influenza B swabs were obtained and were negative. On reevaluation, there is still some rhonchi in the bases bilaterally. Patient was given a repeat dose of albuterol here. Patient was instructed to continue her prednisone as prescribed. Patient was instructed to continue her aerosols and inhalers at home. Patient was instructed return if worse in any way. Patient understood and was agreeable with the plan. All questions were answered. Lab Data Attestation: I reviewed the patient's lab results. Labs: Laboratory Results - last 24 hr 11/28/21 11/28/21 15:49 15:49 WBC 12.6 H RBC 5.03 Hgb 14.6 Hct 45.4 MCV 90.3 MCH 29.0 MCHC 32.2 RDW Std Deviation 48.0 H RDW Coeff of Rui 14.5 Plt Count 399 MPV 10.8 Immature Gran % (Auto) 1.200 H Neut % (Auto) 67.3 Lymph % (Auto) 23.0 Owsley % (Auto) 5.5 Eos % (Auto) 2.5 Baso % (Auto) 0.5 Absolute Neuts (auto) 8.5 H Absolute Lymphs (auto) 2.89 Nucleated RBC % 0 Sodium 139 Potassium 3.8 Chloride 106 Carbon Dioxide 28.0 Anion Gap 5 BUN 15 Creatinine 0.94 Estim Creat Clear Calc 53.43 Est GFR (MDRD) Af Amer 81 Est GFR (MDRD) Non-Af 67 BUN/Creatinine Ratio 16.0 Glucose 97 Calcium 9.1 Total Bilirubin 0.20 AST 16 ALT 39 Alkaline Phosphatase 111 Total Protein 8.0 Albumin 3.7 Globulin 4.3 H Albumin/Globulin Ratio 0.9 Radiography Chest X-Ray - ED: 1 View, Read by ED Physician, Read by Radiologist and No Acute Disease Diagnostic Testing: Clinical Impression(s) from Imaging Studies Chest X-Ray 11/28/21 16:05 IMPRESSION: No radiographic evidence of acute cardiopulmonary disease. Electronically Signed: Payam Santiago, at 16:27 EDT , Discharge Plan Triage Chief Complaint: Shortness of Breath ED Provider: Aydin Almodovar Dx/Rx/DC Orders Clinical Impression: COPD (chronic obstructive pulmonary disease) Instructions: ED COPD Flare Prescriptions: No Action aspirin 81 MG tablet,chewable 81 mg PO DAILY@0800 Qty: 30 RF: 1 albuterol sulfate 2.5 MG/3 ML solution for nebulization 2.5 mg inhalation Q6H PRN PRN (Reason: Sob &/Or Wheezing) RF: 0 albuterol sulfate [Ventolin HFA] 1 INHALER inhaler 1 puff inhalation Q4H PRN PRN (Reason: Sob &/Or Wheezing) RF: 0 fluticasone propionate 1 SPRAY spray,suspension 1 spray NASAL BID RF: 0 Spiriva with HandiHaler 1 PUFF inhaler 1 puff inhalation DAILY RF: 0 prednisone 20 mg Tablet 60 mg PO DAILY RF: 0 loratadine [Claritin] 10 mg Tablet 10 mg PO DAILY RF: 0 Primary Care Provider: Amanda Gross Referrals: Amanda Gross MD [Primary Care Provider] - 3-5 Days Disposition Disposition: Home, Self Care
[2021-11-28] MEDS: Ipratropium/Albuterol Sulfate 3 ML AMPUL.NEB INHALATION (16:05)
--- NOTE | 2021-11-28 16:05 | RAD_ITS ---
INDICATION: Dyspnea EXAMINATION/TECHNIQUE: X-RAY - XR Chest 1 View COMPARISON: Chest radiograph from 03/31/2021. FINDINGS: Support devices: None. No focal consolidations, effusions, or sizable pneumothorax. Cardiomediastinal silhouette is within normal limits. No acute findings in the bones or soft tissues. RAD/Chest 1 View (Portable) IMPRESSION: No radiographic evidence of acute cardiopulmonary disease. Electronically Signed: Payam Santiago, at 16:27 EDT ,
[2021-11-28 16:09] VITALS: PULSE 71; RESP 17; O2SAT 99
[2021-11-28 16:16] LABS: Absolute Lymphocyte Count 2.89 X10^3/uL (0.83-4.51); Absolute Neutrophil Count 8.5 X10^3/uL (2.0-7.7); Basophil# 0.06 X10^3/uL; Basophil% 0.5 % (0-1); Eosinophil# 0.31 X10^3/uL; Eosinophils% 2.5 % (0-5); Hematocrit 45.4 % (37-47); Hemoglobin 14.6 g/dL (12.0-15.0); Lymphocyte # 2.89 X10^3/ul (0.83-4.51); Mean Corp Hgb Conc 32.2 g/dL (32-36); Mean Corpuscular Volume 90.3 fL (81-99); Mean Platelet Vol. 10.8 fl (6.2-12.0); Monocyte# 0.69 X10^3/uL; Monocyte% 5.5 % (0-10); NRBC Flagged by Analyzer 0 % (0-5); Neutrophil # 8.47 X10^3/uL (2.7-7.7); Neutrophil % 67.3 % (47-70); Platelet Count 399 K/mm3 (150-450); RBC Distribution Width CV 14.5 % (11.6-14.6); Red Blood Count 5.03 M/mm3 (4.2-5.4); White Blood Count 12.6 K/mm3 (4.4-11.0)
[2021-11-28 16:27] LABS: ALB/GLOB Ratio 0.9 RATIO (0.9-2.4); AST(SGOT) 16 U/L (15-37); Alanine Aminotransfer ALT/SGPT 39 U/L (13-56); Albumin, Serum 3.7 g/dL (3.2-5.0); Alkaline Phosphatase 111 U/L (45-117); Anion Gap 5 (5-15); BUN 15 mg/dL (7-18); Calcium,Total 9.1 mg/dL (8.5-10.1); Chloride 106 mmol/L (98-107); Creatinine, Serum 0.94 mg/dL (0.55-1.02); EST Glomerular Filtration Rate 67 mL/min (>60); Est Glom Filt Rate - Afr Amer 81 mL/min (>60); Estimated Creatinine Clearance 53.43 ml/min; Globulin 4.3 g/dL (2.2-4.2); Glucose 97 mg/dL (74-106); Potassium 3.8 mmol/L (3.5-5.1); Sodium Level 139 mmol/L (136-145)
[2021-11-28] MEDS: Albuterol 2.5 MG/3 ML VIAL.NEB. INHALATION (19:00)
[2021-11-28 19:01] VITALS: PULSE 71; RESP 17
[2021-11-28 19:07] VITALS: PULSE 97; RESP 18; O2SAT 99
== END 2021-11-28 19:08 | disposition home or self-care (01) ==
PROVIDERS: Emergency Provider Emergency Medicine; PCP Internal Medicine; Visit Provider Emergency Medicine
DX: J44.9 Chronic obstructive pulmonary disease, unspecified (principal); F17.210 Nicotine dependence, cigarettes, uncomplicated; Z98.2 Presence of cerebrospinal fluid drainage device
CPT/HCPCS: 94640; 71045; 80053; 85025; 87428; 99284; A4216

== ENCOUNTER → 2021-12-27 | Outpatient (CLI) | payer MEDICAID, SELFPAY ==
--- NOTE | 2021-12-27 13:16 | PFTCOMP_ITS ---
COMPLETE PULMONARY FUNCTION TEST INTERPRETATION Brief HPI: Patient is a 50-year-old female, currently under the care of Dr. Ruiz, who presents to [facility] for complete pulmonary function tests secondary to diagnosis of tobacco abuse. Respiratory therapist reports good effort and reproducible results. Interpretation: Forced expiration spirometry shows a moderately severe large airways obstructive ventilatory defect with an FEV1 of 56% predicted. There is a significant bronchodilator response in FVC and FEV1 by strict ATS criteria. Spirograms are of good quality and plateau slowly, indicating slowly emptying areas of the lungs. The respiratory flow volume loop shows decreased expiratory flow rates at all lung volumes consistent with airway obstruction. Lung volumes by body plethysmography show a decreased total lung capacity at 2.31 L, 53% predicted. All other lung volumes are reduced symmetrically. Diffusion capacity by carbon monoxide is decreased at 61% predicted. The airway resistance is elevated. Compared to previous pulmonary function tests from 11/25/2015, there is been a significant reduction in spirometry and lung volumes. Impression: Moderately severe mixed ventilatory defect with a symmetric reduction diffusion capacity. There has been worsening compared to 2016.
== END | disposition home or self-care (01) ==
LOC: PSN 08:36
PROVIDERS: PCP Internal Medicine; Referring Provider Internal Medicine Critical Care Medicine; Visit Provider Internal Medicine Critical Care Medicine
DX: J44.9 Chronic obstructive pulmonary disease, unspecified (principal); F17.211 Nicotine dependence, cigarettes, in remission
CPT/HCPCS: 94060; 94726; 94729

== ENCOUNTER → 2021-12-29 | Outpatient (CLI) | payer MEDICAID, SELFPAY ==
[2021-12-29 08:39] VITALS: PULSE 78; PULSE 82; PULSE 83; PULSE 84; PULSE 87; PULSE 95; O2SAT 94; O2SAT 95; O2SAT 96; O2SAT 97
--- NOTE | 2021-12-29 14:04 | PCM.PSN.6M ---
PSN 6 Minute Walk Test 6 Minute Walk Test 6 Minute Walk Test: 6 Minute Walk Test PSN:6-Minute Walk Test Start: 12/29/21 08:38 Freq: Status: Active Protocol: [id number] Document 12/29/21 08:39 [facility] (Rec: 12/29/21 08:42 [facility] [id number]) 6 Minute Walk Test Date Performed 12/29/21 Time Performed 08:15 Height 5 ft 1 in Weight: 56.699 kg Weight in Pounds 125.[address]: Efren Ruiz Assistive device used: None Pre-test Oxygen Delivery Method Room Air Pulse Ox (%) 96 Pulse Rate (60-100 beats/min) 78 Dyspnea Yu Scale (0-10) 2 1st minute Oxygen Delivery Method Room Air Pulse Ox (%) 95 Pulse Rate (60-100 beats/min) 87 Dyspnea Yu Scale (0-10) 3 Number of Rests Taken 0 Reported Symptoms Increased Work of Breathing 2nd minute Oxygen Delivery Method Room Air Pulse Ox (%) 97 Pulse Rate (60-100 beats/min) 87 Dyspnea Yu Scale (0-10) 3 Number of Rests Taken 0 Reported Symptoms Increased Work of Breathing 3rd minute Oxygen Delivery Method Room Air Pulse Ox (%) 97 Pulse Rate (60-100 beats/min) 82 Dyspnea Yu Scale (0-10) 3 Number of Rests Taken 0 Reported Symptoms Increased Work of Breathing 4th minute Oxygen Delivery Method Room Air Pulse Ox (%) 96 Pulse Rate (60-100 beats/min) 84 Dyspnea Yu Scale (0-10) 3 Number of Rests Taken 0 Reported Symptoms Increased Work of Breathing 5th minute Oxygen Delivery Method Room Air Pulse Ox (%) 97 Pulse Rate (60-100 beats/min) 87 Dyspnea Yu Scale (0-10) 4 Number of Rests Taken 0 Reported Symptoms Increased Work of Breathing 6th minute Oxygen Delivery Method Room Air Pulse Ox (%) 94 Pulse Rate (60-100 beats/min) 95 Dyspnea Yu Scale (0-10) 4 Number of Rests Taken 0 Reported Symptoms Increased Work of Breathing Post-test Oxygen Delivery Method Room Air Pulse Ox (%) 97 Pulse Rate (60-100 beats/min) 83 Dyspnea Yu Scale (0-10) 2 Full Laps Walked 12 Partial Lap, Number of Tiles Walked 53 Total Distance Walked (ft) 761 Interpretation Interpretation: The patient was able to ambulate 761 feet over the course of 6 minutes on room air with no assistive devices or breaks. No significant desaturation or tachycardia was noted. These findings are consistent with a musculoskeletal limitation exercise tolerance. Recommendations Recommendations: No supplemental oxygen is indicated at this time.
== END | disposition home or self-care (01) ==
LOC: PSN 08:15
PROVIDERS: PCP Internal Medicine; Referring Provider Internal Medicine Critical Care Medicine; Visit Provider Internal Medicine Critical Care Medicine
DX: J44.9 Chronic obstructive pulmonary disease, unspecified (principal); F17.211 Nicotine dependence, cigarettes, in remission
CPT/HCPCS: 94618

== ENCOUNTER 2022-02-09 09:57 | Emergency (ER) | payer MEDICAID, SELFPAY ==
[2022-02-09 09:58] VITALS: BP 135/84; PULSE 70; RESP 14; TEMP 36.3; O2SAT 98; BMI 23.5
--- NOTE | 2022-02-09 10:28 | ED.VIS.LOWEX ---
HPI History of Present Illness Chief Complaint: Lower Extremity Injury Informant: patient Narrative Narrative: Right foot injury yesterday after johan fell on her foot going down steps. History of right knee issues concerns for meniscus injury followed by orthopedics. She had MRI recently awaiting results. States her knee gave out going down steps when he came down the block came on top of her foot with a shoe on. Pain in the top of her foot. Ibuprofen taken yesterday. No other injuries. PFSH PFSH Medical History Anorexia nervosa Anxiety Asthma Duenas's esophagus Bulimia nervosa COPD (chronic obstructive pulmonary disease) Emphysema lung GERD (gastroesophageal reflux disease) H. pylori infection History of uterine cancer Hx of migraines Internal hemorrhoids Lung disease Snoring Home Medications aspirin 81 mg chewable tablet 81 mg PO DAILY@0800 ##30 10/14/15 [Rx Last Taken Unknown] albuterol sulfate 2.5 mg/3 mL (0.083 %) solution for nebulization 2.5 mg inhalation Q6H PRN PRN Sob &/Or Wheezing 02/13/16 [History Last Taken Unknown] albuterol sulfate 90 mcg/actuation aerosol inhaler (Ventolin HFA) 1 puff inhalation Q4H PRN PRN Sob &/Or Wheezing 02/13/16 [History Last Taken Unknown] fluticasone propionate 50 mcg/actuation nasal spray,suspension 1 spray BID 02/13/16 [History Last Taken Unknown] cyclobenzaprine 10 mg tablet 10 mg PO TID PRN Muscle Spasm 12/09/21 [History Last Taken Unknown] dicyclomine 10 mg capsule 10 mg PO QHS 12/09/21 [History Last Taken Unknown] ergocalciferol (vitamin D2) 1,250 mcg (50,000 unit) capsule 1,250 mcg PO QWEEK 12/09/21 [History Last Taken Unknown] ibuprofen 800 mg tablet 800 mg PO PRN PRN Pain 12/09/21 [History Last Taken Unknown] pantoprazole 40 mg tablet,delayed release 40 mg PO DAILY 12/09/21 [History Last Taken Unknown] zolpidem 5 mg tablet 5 mg PO QHS PRN Sleep 12/09/21 [History Last Taken Unknown] guaifenesin 1,200 mg tablet, extended release 12 hr 1,200 mg PO Q12H #60 tabs 01/06/22 [Rx Last Taken Unknown] loratadine 10 mg tablet (Claritin) 10 mg PO DAILY #90 tabs 01/06/22 [Rx Last Taken Unknown] tiotropium bromide 2.5 mcg/actuation mist for inhalation (Spiriva Respimat) 2 inh inhalation QDAY #1 ea 01/06/22 [Rx Last Taken Unknown] ipratropium 0.5 mg-albuterol 3 mg (2.5 mg base)/3 mL nebulization soln 3 ml inhalation Q4H PRN Shortness Of Breath Or Wheezing 02/09/22 [History Last Taken Unknown] montelukast 10 mg tablet 10 mg PO DAILY 02/09/22 [History Last Taken Unknown] phenylephrine 0.25 %-cocoa butter 88.44 % rectal suppository (Preparation H(phenyleph,cocoa buttr)) 1 supp AR PRN PRN Hemorrhoids 02/09/22 [History Last Taken Unknown] Allergy/AdvReac Type Severity Reaction Status Date / Time Penicillins [PCN] Allergy Anaphylaxis Verified 02/09/22 09:58 Family History Mother Hypertension Heart disease Eczema AAA (abdominal aortic aneurysm) Fibromyalgia Father Lung cancer Alcohol abuse Colon cancer Sister Hypertension Asthma Migraine headache Gout Fibromyalgia Aunt Breast cancer Aunt Breast cancer Surgical History History of appendectomy History of hysterectomy Social History Smoking Status: Former smoker Electronic Cigarette Use: not used second hand exposure: No alcohol intake: former substance use type: does not use ROS ROS ED Constitutional Constitutional ED: Denies chills, fever(s) or sweats Eyes Eyes: Denies change in vision ENT ENT ED: Denies dysphagia or sore throat Cardiovascular Cardiovascular: Denies chest pain, leg edema, palpitations or racing heartbeat Respiratory/Chest Respiratory/Chest: Denies cough, dyspnea or dyspnea on exertion Gastrointestinal Gastrointestinal: Denies abdominal pain, diarrhea, nausea or vomiting Genitourinary Genitourinary ED: Denies dysuria, hematuria or urinary frequency Musculoskeletal Musculoskeletal: Reports extremity pain and other Details: Right foot injury ; Denies back pain or neck pain Integumentary Denies rash or wounds Neurologic Neurologic: Denies headache(s), paresthesias or weakness EXAM Physical Exam Const Vital Signs: 02/09/22 09:58 02/09/22 12:04 02/09/22 12:04 Temperature 97.3 F L Temperature Source Temporal Pulse Rate 70 62 64 Respiratory Rate 14 16 16 Blood Pressure 135/84 H 146/87 H 146/87 H Blood Pressure Mean 101 106 Pulse Ox 98 96 96 Oxygen Delivery Method Room Air Room Air Positive well nourished and well developed General Appearance ED: well developed and NAD HEENT Reports moist mucous membranes normocephalic and atraumatic Eyes PERRL, EOMs intact bilaterally and conjunctivae normal General Eye ED: Yes normal appearance of both eyes Neck no lymphadenopathy and supple General: Negative for tenderness Chest Wall Chest: Negative for tenderness Resp normal respiratory effort and normal air movement Effort and Inspection: symmetric chest movement; Negative for respiratory distress Cardio regular rate, regular rhythm and no murmurs Peripheral Pulses: pulses 2+ throughout GI normal to inspection, nondistended, normoactive bowel sounds and non-tender Palpation: Negative for guarding or rebound tenderness present Back/Spine no CVA tenderness and no thoracic nor lumbar tenderness Extremity Extremity Narrative: Right lower extremity: Knee hinged brace intact. There is no ankle tenderness. There is tenderness midfoot and distal first and second metatarsals with mild ecchymosis. Skin intact. Neuro vas intact. No proximal fifth base tenderness. General Extremety ED: Yes tenderness; Negative for edema General Extremity: Negative for edema Neuro oriented x3 and no sensory deficits noted Sensorium / Orientation: awake and alert Skin no rashes or lesions noted and no wounds MDM MDM MDM Narrative Medical decision making narrative: Patient declined any pain medicines. Three-view x-ray right foot reviewed by myself and read by radiology shows no acute process. Postop shoe provided. She will continue ibuprofen at home. She will follow-up as an outpatient. All questions were answered. Radiography Diagnostic Testing: Clinical Impression(s) from Imaging Studies Foot X-Ray 02/09/22 11:00 IMPRESSION: Normal x-ray examination of the foot. Electronically Signed: Frank Villatoro MD at 12:28 EDT Reading Location ID and State: [facility] / [place] , Service support , Discharge Plan Triage Chief Complaint: Lower Extremity Injury ED Provider: Talon Kaba Dx/Rx/DC Orders Clinical Impression: Contusion of foot, right, History of COPD Instructions: ED Foot Contusion Prescriptions: No Action zolpidem 5 mg tablet 5 mg PO QHS PRN (Reason: Sleep) cyclobenzaprine 10 mg tablet 10 mg PO TID PRN (Reason: Muscle Spasm) pantoprazole 40 mg tablet,delayed release (DR/EC) 40 mg PO DAILY ergocalciferol (vitamin D2) 1,250 mcg (50,000 unit) capsule 1,250 mcg PO QWEEK ibuprofen 800 mg tablet 800 mg PO PRN PRN (Reason: Pain) dicyclomine 10 mg capsule 10 mg PO QHS Spiriva Respimat 2.5 mcg/actuation mist 2 inh inhalation QDAY Qty: 1 6RF Rx Instructions: administer at approximately the same time(s) each day guaifenesin 1,200 mg tablet extended release 12hr 1,200 mg PO Q12H Qty: 60 6RF loratadine [Claritin] 10 mg tablet 10 mg PO DAILY Qty: 90 3RF aspirin 81 MG tablet,chewable 81 mg PO DAILY@0800 Qty: 30 1RF albuterol sulfate 2.5 MG/3 ML solution for nebulization 2.5 mg inhalation Q6H PRN PRN (Reason: Sob &/Or Wheezing) albuterol sulfate [Ventolin HFA] 1 INHALER inhaler 1 puff inhalation Q4H PRN PRN (Reason: Sob &/Or Wheezing) fluticasone propionate 1 SPRAY spray,suspension 1 spray NASAL BID ipratropium-albuterol [DuoNeb] 0.5 mg-3 mg(2.5 mg base)/3 mL Solution For Nebulization 3 ml INHALATION Q4H PRN (Reason: Shortness Of Breath Or Wheezing) montelukast 10 mg Tablet 10 mg PO DAILY Preparation H(pe,cb) 0.25-88.44 % Suppository 1 supp AR PRN PRN (Reason: Hemorrhoids) Primary Care Provider: Amanda Gross Referrals: Amanda Gross MD [Primary Care Provider] - 1 Week if not improving Activity Restrictions/Additional Instructions: Right foot x-ray negative. Continue ibuprofen every 6 hours as needed. Postop shoe for comfort. Disposition Disposition: Home, Self Care Discharge Date/Time: 02/09/22 12:08
--- NOTE | 2022-02-09 11:00 | RAD_ITS ---
STUDY: X-RAY - LEFT FOOT CLINICAL: Female, 51 years old. FELL ON STAIRS LAST NIGHT, BRUISING TO MEDIAL ASPECT OF FOOT TECHNIQUE: 3 view(s) of the foot. COMPARISON: None. FINDINGS: Normal talus, calcaneus, and tarsal bones. Normal visualized subtalar, talonavicular, calcaneocuboid, tarsal and tarsometatarsal articulations. Normal metatarsi. Normal metatarsophalangeal joint of the great toe. Normal tibial and fibular sesamoid bones. Normal interphalangeal joint of the great toe. Normal phalanges of the great toe. Normal second through fifth metatarsophalangeal joints. Normal interphalangeal joints and phalanges of the lesser toes. The soft tissue structures are unremarkable. There is no demonstrated fracture. RAD/Foot min 3 Views IMPRESSION: Normal x-ray examination of the foot. Electronically Signed: Frank Villatoro MD at 12:28 EDT ,
[2022-02-09 12:04] VITALS: BP 146/87; PULSE 62; PULSE 64; RESP 16; O2SAT 96
== END 2022-02-09 12:08 | disposition home or self-care (01) ==
PROVIDERS: Emergency Provider Emergency Medicine; PCP Internal Medicine; Visit Provider Emergency Medicine
DX: S90.31XA Contusion of right foot, initial encounter (principal); J43.9 Emphysema, unspecified; Z87.891 Personal history of nicotine dependence; W22.8XXA Striking against or struck by other objects, initial encounter
CPT/HCPCS: 73630; 99283

== ENCOUNTER → 2022-04-26 | Outpatient (CLI) | payer MEDICAID, SELFPAY ==
--- NOTE | 2022-04-26 12:05 | ART_ITS ---
Reason For Study: stricture of artery Procedure A bilateral lower extremity continuous wave Doppler with analog waveform analysis and ankle brachial indexes. Left Segmental Pressures Left brachial= 145mmHg. Left posterior tibial artery = 149mmHg. Left dorsalis pedis artery = 152mmHg. The left dorsalis pedis waveforms are triphasic. The left posterior tibial artery waveforms are triphasic. Right Segmental Pressures Right brachial= 148mmHg. Right posterior tibial artery = 150mmHg. Right dorsalis pedis artery = 153mmHg. The right dorsalis pedis waveforms are triphasic. The right posterior tibial artery waveforms are triphasic. Indices The right ankle brachial index by the posterior tibial artery is 1.01. The right ankle brachial index by the dorsalis pedis is 1.03. The left ankle brachial index by the posterior tibial artery is 1.01. The left ankle brachial index by the dorsalis pedis is 1.03. VL/Ankle Brachial Index Interpretation Summary Bilateral noocclussive disease at rest with BRYNN 1.03 and 1.03. Ordering Physician: Nathan Malik Performed By: David Ma RVT
--- NOTE | 2022-04-26 12:06 | ADUL_ITS ---
Reason For Study: stricture of artery Right Velocities Ext. Iliac Artery, dist = 178.5 cm./sec. Common Femoral Artery, mid = 121.4 cm./sec. Supf Femoral Artery, prox = 87.6 cm./sec. Supf Femoral Artery, mid = 97.4 cm./sec. Supf Femoral Artery, dist. = 76.5 cm./sec. Profunda Femoral Artery = 75.3 cm./sec. Popliteal Artery, mid = 50.7 cm./sec. Ant. Tibial Artery, prox = 66.3 cm./sec. Ant. Tibial Artery, mid = 53.1 cm./sec. Ant. Tibial Artery, dist = 42.1 cm./sec. Post. Tibial Artery, prox = 59.3 cm./sec. Post. Tibial Artery, mid = 47.0 cm./sec. Post. Tibial Artery, dist = 54.4 cm./sec. Peroneal Artery, prox = 36.6 cm./sec. Peroneal Artery, mid = 42.1 cm./sec. Peroneal Artery,dist = 46.5 cm./sec. Procedure The exam was diagnostic. Exam performed in department. /US Art Duplex Unilat Lower Ext Interpretation Summary Right leg with no stenosis and triphasic flow. Ordering Physician: Nathan Malik Performed By: David Ma RVT
== END | disposition home or self-care (01) ==
LOC: CVS 12:02
PROVIDERS: PCP Internal Medicine; Referring Provider Surgery Vascular Surgery; Visit Provider Surgery Vascular Surgery
DX: I77.1 Stricture of artery (principal)
CPT/HCPCS: 93922; 93926

== ENCOUNTER 2022-10-29 13:34 | Emergency (ER) | payer MEDICAID, SELFPAY ==
[2022-10-29 13:35] VITALS: BP 118/79; PULSE 111; RESP 18; TEMP 36.1; O2SAT 100; BMI 25.1
--- NOTE | 2022-10-29 14:09 | EDS_ITS ---
HPI History of Present Illness Chief Complaint: Constipation Informant: patient Onset/Context/Timing Onset: Weeks Narrative Narrative: Patient has a history of chronic constipation. At baseline she takes MiraLAX da duncan, stool softeners, and has a bowel movement every week and a half or so. She presents with constipation and abdominal bloating. She states her last bowel movement was about 3 weeks ago. She was seen by her doctor earlier this week. Plan was to start lactulose if her abdominal x-ray was clear. She has lactulose at home but had not heard from her provider about whether to start the lactulose or not. She saw the results for her x-ray online this morning and came to the ER. X-ray reveals moderate stool and gas in the large bowel loops. Patient states that she is not passing any gas at this time. She is eating and drinking. [facility] Medical History Anorexia nervosa Anxiety Asthma Duenas's esophagus Bulimia nervosa COPD (chronic obstructive pulmonary disease) Emphysema lung GERD (gastroesophageal reflux disease) H. pylori infection History of uterine cancer Hx of migraines Internal hemorrhoids Lung disease Snoring Home Medications aspirin 81 mg chewable tablet 81 mg PO DAILY@0800 ##30 10/14/15 [Rx Last Taken Unknown] fluticasone propionate 50 mcg/actuation nasal spray,suspension 1 spray BID 02/13/16 [History Last Taken Unknown] cyclobenzaprine 10 mg tablet 10 mg PO TID PRN Muscle Spasm 12/09/21 [History Last Taken Unknown] dicyclomine 10 mg capsule 10 mg PO QHS 12/09/21 [History Last Taken Unknown] ergocalciferol (vitamin D2) 1,250 mcg (50,000 unit) capsule 1,250 mcg PO QWEEK 12/09/21 [History Last Taken Unknown] ibuprofen 800 mg tablet 800 mg PO PRN PRN Pain 12/09/21 [History Last Taken Unknown] pantoprazole 40 mg tablet,delayed release 40 mg PO DAILY 12/09/21 [History Last Taken Unknown] zolpidem 5 mg tablet 5 mg PO QHS PRN Sleep 12/09/21 [History Last Taken Unknown] guaifenesin 1,200 mg tablet, extended release 12 hr 1,200 mg PO Q12H #60 tabs 01/06/22 [Rx Last Taken Unknown] loratadine 10 mg tablet (Claritin) 10 mg PO DAILY #90 tabs 01/06/22 [Rx Last Taken Unknown] montelukast 10 mg tablet 10 mg PO DAILY 02/09/22 [History Last Taken Unknown] phenylephrine 0.25 %-cocoa butter 88.44 % rectal suppository (Preparation H(phenyleph,cocoa buttr)) 1 supp IN PRN PRN Hemorrhoids 02/09/22 [History Last Taken Unknown] albuterol sulfate 90 mcg/actuation aerosol inhaler (Ventolin HFA) 1 puff inhalation Q4H PRN PRN Sob &/Or Wheezing #8.5 grams 05/16/22 [Rx Last Taken Unknown] amitriptyline 25 mg tablet 25 mg PO QHS 05/16/22 [History Last Taken Unknown] fluticasone fur. 200 mcg-umeclid 62.5 mcg-vilant 25 mcg inhalat.powder (Trelegy Ellipta) 1 inh inhalation DAILY #60 ea 05/16/22 [Rx Last Taken Unknown] albuterol sulfate 2.5 mg/3 mL (0.083 %) solution for nebulization 2.5 mg (3 mL) inhalation Q6H PRN PRN Sob &/Or Wheezing #180 mL 08/14/22 [Rx Last Taken Unknown] doxycycline hyclate 100 mg tablet 100 mg PO BID #20 tabs 08/14/22 [Rx Last Taken Unknown] ipratropium 0.5 mg-albuterol 3 mg (2.5 mg base)/3 mL nebulization soln 3 ml inhalation Q4H PRN Shortness Of Breath Or Wheezing #180 mL 08/14/22 [Rx Last Taken Unknown] levofloxacin 750 mg tablet tablet PO 08/14/22 [History Last Taken Unknown] prednisone 10 mg tablet tablet PO 08/14/22 [History Last Taken Unknown] Allergy/AdvReac Type Severity Reaction Status Date / Time Penicillins [PCN] Allergy Anaphylaxis Verified 10/29/22 13:37 Family History Mother Hypertension Heart disease Eczema AAA (abdominal aortic aneurysm) Fibromyalgia Father Lung cancer Alcohol abuse Colon cancer Sister Hypertension Asthma Migraine headache Gout Fibromyalgia Aunt Breast cancer Aunt Breast cancer Surgical History History of appendectomy History of hysterectomy Social History Smoking Status: Light Smoker (<10/day) alcohol intake: former substance use type: does not use ROS ROS ED Constitutional Constitutional ED: Denies chills or fever(s) Eyes Eyes: Denies change in vision or discharge from eye(s) ENT ENT ED: Denies discharge from eye(s), rhinorrhea or sore throat Cardiovascular Cardiovascular: Denies chest pain or palpitations Respiratory/Chest Respiratory/Chest: Denies cough or dyspnea Gastrointestinal Gastrointestinal: Reports abdominal pain and constipation; Denies diarrhea, nausea or vomiting Genitourinary Genitourinary ED: Denies dysuria Musculoskeletal Musculoskeletal: Denies back pain or extremity pain Integumentary Denies Abrasions or rash Neurologic Neurologic: Denies headache(s) or weakness Allergic/Immunologic Allergic/Immunologic ED: Denies lip swelling or urticaria EXAM Physical Exam Const Vital Signs: 10/29/22 13:35 Temperature 96.9 F L Temperature Source Temporal Pulse Rate 111 H Respiratory Rate 18 Blood Pressure 118/79 Blood Pressure Mean 92 Pulse Ox 100 Oxygen Delivery Method Room Air Positive well nourished and well developed General Appearance ED: well developed HEENT Reports normocephalic and head/scalp atraumatic Eyes PERRL and EOMs intact bilaterally Neck supple Chest Wall inspection of chest normal and palpation of chest normal Resp normal respiratory effort and clear to auscultation bilaterally Cardio regular rate and regular rhythm GI GI Narrative: Abdomen distended but soft. Rare, hypoactive bowel sounds noted. No guarding or rebound. Palpation: soft Extremity normal to inspection Neuro oriented x3 and no sensory deficits noted Sensorium / Orientation: alert Motor Exam: strength 5/5 throughout Psych mental status grossly normal Skin no rashes or lesions noted MDM MDM MDM Narrative Medical decision making narrative: I was able to review the patient's notes from [facility] and the x-ray report, but cannot see images. With the patient now states that she is not passing gas abdominal x-ray with upright obtained to rule out obstruction. Radiography Diagnostic Testing: Clinical Impression(s) from Imaging Studies Abdomen X-Ray 10/29/22 14:21 IMPRESSION: No acute findings in the abdomen or pelvis. Electronically Signed: Pablo Weinstein MD at 15:24 EDT , Treatment and Re-Evaluation :: Abdominal x-ray per my interpretation reveals stool and gas pattern throughout with no sign of obstruction. Soapsuds enema is given and patient had moderate results. She will be discharged home to start the lactulose that she was already prescribed. Return instructions given Discharge Plan Triage Chief Complaint: Constipation ED Provider: Sheryl Nguyen Dx/Rx/DC Orders Clinical Impression: Constipation Instructions: ED Constipation (Adult) Prescriptions: No Action zolpidem 5 mg tablet 5 mg PO QHS PRN (Reason: Sleep) cyclobenzaprine 10 mg tablet 10 mg PO TID PRN (Reason: Muscle Spasm) pantoprazole 40 mg tablet,delayed release (DR/EC) 40 mg PO DAILY ergocalciferol (vitamin D2) 1,250 mcg (50,000 unit) capsule 1,250 mcg PO QWEEK ibuprofen 800 mg tablet 800 mg PO PRN PRN (Reason: Pain) dicyclomine 10 mg capsule 10 mg PO QHS guaifenesin 1,200 mg tablet extended release 12hr 1,200 mg PO Q12H Qty: 60 6RF loratadine [Claritin] 10 mg tablet 10 mg PO DAILY Qty: 90 3RF amitriptyline 25 mg tablet 25 mg PO QHS Trelegy Ellipta 200-62.5-25 mcg blister with device 1 inh inhalation DAILY Qty: 60 3RF albuterol sulfate [Ventolin HFA] 90 mcg/actuation HFA aerosol inhaler 1 puff inhalation Q4H PRN PRN (Reason: Sob &/Or Wheezing) Qty: 8.5 6RF prednisone 10 mg tablet PO levofloxacin 750 mg tablet PO albuterol sulfate 2.5 mg /3 mL (0.083 %) solution for nebulization 2.5 mg inhalation Q6H PRN PRN (Reason: Sob &/Or Wheezing) Qty: 180 11RF ipratropium-albuterol 0.5 mg-3 mg(2.5 mg base)/3 mL solution for nebulization 3 ml INHALATION Q4H PRN (Reason: Shortness Of Breath Or Wheezing) Qty: 180 11RF doxycycline hyclate 100 mg tablet 100 mg PO BID Qty: 20 0RF aspirin 81 MG tablet,chewable 81 mg PO DAILY@0800 Qty: 30 1RF fluticasone propionate 1 SPRAY spray,suspension 1 spray NASAL BID montelukast 10 mg Tablet 10 mg PO DAILY Preparation H(pe,cb) 0.25-88.44 % Suppository 1 supp IN PRN PRN (Reason: Hemorrhoids) Primary Care Provider: LAURA RUCKER Referrals: LAURA RUCKER, [employer] [Primary Care Provider] - 1 Week if not improving Disposition Disposition: Home, Self Care
--- NOTE | 2022-10-29 14:21 | RAD_ITS ---
EXAM: XR ABDOMEN, 2 VIEWS CLINICAL INDICATION: constipation, not passing gas TECHNIQUE: Frontal view of the abdomen/pelvis with upright view of the abdomen. This report was created using [employer] report generation technology. COMPARISON: None. FINDINGS: INTRAPERITONEAL SPACE: No free air. GASTROINTESTINAL TRACT: Mild stool burden within the large bowel. ORGANS: Unremarkable as visualized. No organomegaly. No abnormal calcifications. BONES/JOINTS: No acute abnormality. SOFT TISSUES: No acute pathology. RAD/Abd Inc Decub and/or Erect IMPRESSION: No acute findings in the abdomen or pelvis. Electronically Signed: Pablo Weinstein MD at 15:24 EDT ,
== END 2022-10-29 16:11 | disposition home or self-care (01) ==
PROVIDERS: Emergency Provider Emergency Medicine; PCP Nurse Practitioner; Visit Provider Emergency Medicine
DX: K59.00 Constipation, unspecified (principal); J43.9 Emphysema, unspecified; F17.200 Nicotine dependence, unspecified, uncomplicated; Z79.82 Long term (current) use of aspirin; Z79.899 Other long term (current) drug therapy; Z79.52 Long term (current) use of systemic steroids; Z79.1 Long term (current) use of non-steroidal anti-inflammatories (NSAID); K21.9 Gastro-esophageal reflux disease without esophagitis; F41.9 Anxiety disorder, unspecified; Z79.51 Long term (current) use of inhaled steroids; Z90.49 Acquired absence of other specified parts of digestive tract; Z90.710 Acquired absence of both cervix and uterus
CPT/HCPCS: 74019; 99284

== ENCOUNTER → 2022-11-09 | Outpatient (CLI) | payer MEDICAID, SELFPAY ==
--- NOTE | 2022-11-10 07:51 | PFT ---
INTRODUCTION: The patient is a 51-year-old female that presents for pulmonary function studies secondary to a diagnosis of COPD. Respiratory therapy reported good patient effort. Bronchodilators were used during testing. INTERPRETATION: Forced expiration spirometry demonstrated no evidence of a large airways obstructive ventilatory defect. There was a partial, although technically nonsignificant, response to aerosolized bronchodilators. Spirograms are of good quality and plateau normally. Body plethysmography was performed and revealed a decreased TLC to 2.70 L, 64% of predicted, indicative of a moderate restrictive ventilatory impairment. Diffusing capacity by single breath CO was within normal limits. IMPRESSION: Moderate restrictive ventilatory impairment with preserved diffusing capacity. There was a partial, although technically nonsignificant, response to aerosolized bronchodilators.
== END | disposition home or self-care (01) ==
LOC: PSN 13:03
PROVIDERS: PCP Nurse Practitioner; Referring Provider Nurse Practitioner Acute Care; Visit Provider Nurse Practitioner Acute Care
DX: J44.9 Chronic obstructive pulmonary disease, unspecified (principal)
CPT/HCPCS: 94060; 94726; 94729

== ENCOUNTER → 2022-12-13 | Outpatient (CLI) | payer MEDICAID, SELFPAY ==
[2022-12-13 09:56] LABS: Absolute Lymphocyte Count 2.33 X10^3/uL (0.83-4.51); Absolute Neutrophil Count 5.8 X10^3/uL (2.0-7.7); Basophil# 0.06 X10^3/uL; Basophil% 0.6 % (0-1); Eosinophil# 0.47 X10^3/uL; Eosinophils% 4.9 % (0-5); Hematocrit 39.9 % (37-47); Hemoglobin 12.9 g/dL (12.0-15.0); Lymphocyte # 2.33 X10^3/ul (0.83-4.51); Lymphocyte % 24.3 % (19-41); Mean Corp Hgb Conc 32.3 g/dL (32-36); Mean Corpuscular Hgb 28.3 pg (27.0-32.0); Mean Corpuscular Volume 87.5 fL (81-99); Mean Platelet Vol. 9.9 fl (6.2-12.0); Monocyte% 9.4 % (0-10); NRBC Flagged by Analyzer 0 % (0-5); Neutrophil % 60.4 % (47-70); Platelet Count 434 K/mm3 (150-450); RBC Distribution Width CV 14.7 % (11.6-14.6); RBC Distribution Width SD 47.1 fl (35.1-43.9); Red Blood Count 4.56 M/mm3 (4.2-5.4); White Blood Count 9.6 K/mm3 (4.4-11.0)
[2022-12-16 19:07] LABS: Alternaria tenuis 0.15 kU/L (Class 0/I); Ash, White <0.10 kU/L (Class 0); Aspergillus fumigatus <0.10 kU/L (Class 0); Bermuda Grass 0.52 kU/L (Class I); Birch <0.10 kU/L (Class 0); Black Walnut <0.10 kU/L (Class 0); Cat Hair / Dander,Stand <0.10 kU/L (Class 0); Cedar, Mountain <0.10 kU/L (Class 0); Cladosporium herbarum <0.10 kU/L (Class 0); Cockroach, American <0.10 kU/L (Class 0); Cottonwood <0.10 kU/L (Class 0); D farinae Mite <0.10 kU/L (Class 0); D pteronyssinus <0.10 kU/L (Class 0); Dog Epithelia <0.10 kU/L (Class 0); Elm, American White <0.10 kU/L (Class 0); Immunoglobulin E 21 IU/mL (6-495); Maple/Box Elder <0.10 kU/L (Class 0); Mouse Urine <0.10 kU/L (Class 0); Mulberry, White <0.10 kU/L (Class 0); Oak, White <0.10 kU/L (Class 0); Pecan <0.10 kU/L (Class 0); Penicillium Notatum <0.10 kU/L (Class 0); Pigweed, Rough <0.10 kU/L (Class 0); Ragweed, Short/Common 0.12 kU/L (Class 0/I); Russian Thistle <0.10 kU/L (Class 0); Sheep Sorrel <0.10 kU/L (Class 0); Sycamore, American <0.10 kU/L (Class 0); Timothy Grass 1.75 kU/L (Class III)
[2022-12-17 03:06] LABS: Aspirgillus flavus Negative (Neg:<1:1); Aspirgillus fumigatus Negative (Neg:<1:1); Aspirgillus niger Negative (Neg:<1:1); Immunoglobulin E 20 IU/mL (6-495)
== END | disposition home or self-care (01) ==
LOC: PAVLAB 09:42
PROVIDERS: PCP Nurse Practitioner; Referring Provider Internal Medicine Critical Care Medicine; Visit Provider Internal Medicine Critical Care Medicine
DX: J44.9 Chronic obstructive pulmonary disease, unspecified (principal)
CPT/HCPCS: 36415; 82785; 85025; 86003; 86606

== ENCOUNTER → 2022-12-21 | Outpatient (CLI) | payer MEDICAID, SELFPAY ==
--- NOTE | 2022-12-21 08:30 | CT_ITS ---
STUDY: CT CHEST WITHOUT CONTRAST REASON FOR EXAM: Female, 51 years old. Lung Nodule RADIATION DOSAGE (If Supplied By Facility): CTDIvol = ( 6.05 ) mGy, DLP = ( 202.66 ) mGycm TECHNIQUE: Transaxial imaging was performed without the administration of intravenous contrast material. Multiplanar coronal and sagittal images were reformatted. Individualized dose optimization techniques were used for this CT. COMPARISON: Comparison is made with prior study May 04, 2016. FINDINGS: CHEST Stable small benign appearing bilateral axillary lymph nodes. Emphysematous changes more prominent in the upper lobes. 1.5 cm bulla is seen in the right lung apex. Stable mild scarring at the lung apices as well as at the lung bases. There is no demonstrated pleural abnormality. There are calcifications of the coronary arteries. There are multiple small lymph nodes within the mediastinum, which are normal in size and morphology most compatible with reactive lymph hyperplasia. Normal hilar regions. Normal unenhanced pulmonary arteries. There is atherosclerotic calcification of the aortic arch. There is demineralization of the thoracic spine. There is no demonstrated abnormality of the visualized upper abdomen. CT/Chest without Contrast IMPRESSION: Stable examination. Electronically Signed: Baltazar Greene MD at 15:46 EDT ,
== END | disposition home or self-care (01) ==
PROVIDERS: PCP Nurse Practitioner; Referring Provider Internal Medicine Critical Care Medicine; Visit Provider Internal Medicine Critical Care Medicine
DX: R91.1 Solitary pulmonary nodule (principal)
CPT/HCPCS: 71250

== ENCOUNTER → 2023-05-04 | Outpatient (CLI) | payer MEDICAID, SELFPAY ==
[2023-05-04 12:50] VITALS: PULSE 83; PULSE 88; PULSE 94; PULSE 96; O2SAT 93; O2SAT 94; O2SAT 96; O2SAT 97; O2SAT 99
--- NOTE | 2023-05-04 13:41 | PCM.PSN.6M ---
PSN 6 Minute Walk Test 6 Minute Walk Test 6 Minute Walk Test: 6 Minute Walk Test PSN:6-Minute Walk Test Start: 05/04/23 12:50 Freq: Status: Active Protocol: [id number] Document 05/04/23 12:50 ELIEZERLUZ ELENA (Rec: 05/04/23 12:52 JOSÉ MIGUEL [id number]) 6 Minute Walk Test Date Performed 05/04/23 Time Performed 12:30 Height 5 ft 1 in Weight: 58.967 kg Weight in Pounds 130.[address]: Efren Ruiz Assistive device used: None Pre-test Oxygen Delivery Method Room Air Pulse Ox 97 Pulse Rate (60-100) 88 Dyspnea Yu Scale (0-10) 0.5 Exertion Yu Scale (6-20) 6 1st minute Oxygen Delivery Method Room Air Pulse Ox 96 Pulse Rate (60-100) 94 2nd minute Oxygen Delivery Method Room Air Pulse Ox 93 Pulse Rate (60-100) 96 3rd minute Oxygen Delivery Method Room Air Pulse Ox 94 Pulse Rate (60-100) 96 4th minute Oxygen Delivery Method Room Air Pulse Ox 94 Pulse Rate (60-100) 96 5th minute Oxygen Delivery Method Room Air Pulse Ox 96 Pulse Rate (60-100) 94 6th minute Oxygen Delivery Method Room Air Pulse Ox 96 Pulse Rate (60-100) 94 Dyspnea Yu Scale (0-10) 3 Exertion Yu Scale (6-20) 13 Post-test Oxygen Delivery Method Room Air Pulse Ox 99 Pulse Rate (60-100) 83 Full Laps Walked 13 Partial Lap, Number of Tiles Walked 0 Total Distance Walked (ft) 767 Interpretation Interpretation: The patient was able to ambulate 767 feet over the course of 6 minutes on room air with no assistive devices or breaks. The patient experienced no significant desaturation or tachycardia during testing. These findings are consistent with a musculoskeletal limitation exercise tolerance. Recommendations Recommendations: No supplemental oxygen is indicated at this time.
== END | disposition home or self-care (01) ==
LOC: PSN 12:33
PROVIDERS: PCP Nurse Practitioner; Referring Provider Internal Medicine Critical Care Medicine; Visit Provider Internal Medicine Critical Care Medicine
DX: J44.9 Chronic obstructive pulmonary disease, unspecified (principal)
CPT/HCPCS: 94618

== ENCOUNTER → 2023-05-15 | Outpatient (CLI) | payer MEDICAID, SELFPAY ==
--- NOTE | 2023-05-15 14:33 | US_ITS ---
STUDY: ULTRASOUND BREAST - RIGHT REASON FOR EXAM: Female, 52 years old. Right axillary pain/swelling. TECHNIQUE: Axial and longitudinal images of the RIGHT breast were performed with a high resolution ultrasound transducer. # OF IMAGES: 12 COMPARISON: None. FINDINGS: RIGHT Breast: The right axillary region was examined with ultrasound. 3 axillary lymph nodes are seen. The largest lymph node measures 2.6 cm x 1.2 cm x 0.8 cm. A fatty hilum is seen within it. US/Breast Limited Unilateral IMPRESSION: 3 right axillary lymph nodes are seen. The largest measures 2.6 cm x 1.2 cm x 0.8 cm. A fatty hilum is visualized. ASSESSMENT CATEGORY: BIRADS Category 2: Benign. A letter regarding these results will be sent to the patient by the facility within 30 days. Electronically Signed: Baltazar Greene MD at 14:01 EST ,
== END | disposition home or self-care (01) ==
PROVIDERS: PCP Nurse Practitioner; Referring Provider Clinical Nurse Specialist; Visit Provider Clinical Nurse Specialist
DX: M79.89 Other specified soft tissue disorders (principal); M79.621 Pain in right upper arm; N63.10 Unspecified lump in the right breast, unspecified quadrant
CPT/HCPCS: 76642

== ENCOUNTER 2023-05-18 16:04 | Emergency (ER) | payer MEDICAID, SELFPAY ==
[2023-05-18 16:06] VITALS: BP 143/83; PULSE 95; RESP 16; TEMP 36; O2SAT 97; BMI 24.9
--- NOTE | 2023-05-18 16:25 | ED.VIS.CHEST ---
HPI History of Present Illness Chief Complaint: Chest Pain Informant: patient Onset/Context/Timing Onset: Hours (2) Activity at onset: sudden Timing: Intermittent and Lasts (Few minutes) Location: Right Chest Worsened By: Nothing Relieved By: Nothing Associated Symptoms: Positive for Dyspnea, Cough, Acid Reflux and Palpitations; Negative for Nausea, Vomiting, Diaphoresis, Fever or Lightheadedness Narrative Narrative: Patient presents with chest pain that began approximately 2 hours prior to arrival. Patient states it has been intermittent. Patient states it is over the right upper chest and radiates down her right arm. Patient admits to some shortness of breath and cough but states she has a history of COPD. Patient admits to some palpitations. Patient also admits to some esophageal reflux disease. Patient denies any diaphoresis. Patient denies any nausea or vomiting. Patient denies any lightheadedness or dizziness. CVD Risk Factors: Positive for Smoking; Negative for Hypertension, Diabetes, Hypercholesterolemia or Family History 1' </=55 PE Risk Factors: Positive for Cancer; Negative for Recent Travel/Surgery, Recent Immobilization or Prior DVT or PE [facility] Medical History Anorexia nervosa Anxiety Asthma Duenas's esophagus Bulimia nervosa COPD (chronic obstructive pulmonary disease) Emphysema lung GERD (gastroesophageal reflux disease) H. pylori infection History of uterine cancer Hx of migraines Internal hemorrhoids Lung disease Snoring Home Medications aspirin 81 mg chewable tablet 81 mg PO DAILY@0800 ##30 10/14/15 [Rx Last Taken Unknown] fluticasone propionate 50 mcg/actuation nasal spray,suspension 1 spray BID 02/13/16 [History Last Taken Unknown] cyclobenzaprine 10 mg tablet 10 mg PO TID PRN Muscle Spasm 12/09/21 [History Last Taken Unknown] dicyclomine 10 mg capsule 10 mg PO QHS 12/09/21 [History Last Taken Unknown] ergocalciferol (vitamin D2) 1,250 mcg (50,000 unit) capsule 1,250 mcg PO QWEEK 12/09/21 [History Last Taken Unknown] ibuprofen 800 mg tablet 800 mg PO PRN PRN Pain 12/09/21 [History Last Taken Unknown] pantoprazole 40 mg tablet,delayed release 40 mg PO DAILY 12/09/21 [History Last Taken Unknown] zolpidem 5 mg tablet 5 mg PO QHS PRN Sleep 12/09/21 [History Last Taken Unknown] guaifenesin 1,200 mg tablet, extended release 12 hr 1,200 mg PO Q12H #60 tabs 01/06/22 [Rx Last Taken Unknown] loratadine 10 mg tablet (Claritin) 10 mg PO DAILY #90 tabs 01/06/22 [Rx Last Taken Unknown] montelukast 10 mg tablet 10 mg PO DAILY 02/09/22 [History Last Taken Unknown] phenylephrine 0.25 %-cocoa butter 88.44 % rectal suppository (Preparation H(phenyleph,cocoa buttr)) 1 supp KS PRN PRN Hemorrhoids 02/09/22 [History Last Taken Unknown] albuterol sulfate 90 mcg/actuation aerosol inhaler (Ventolin HFA) 1 puff inhalation Q4H PRN PRN Sob &/Or Wheezing #8.5 grams 05/16/22 [Rx Last Taken Unknown] amitriptyline 25 mg tablet 25 mg PO QHS 05/16/22 [History Last Taken Unknown] epinephrine 0.3 mg/0.3 mL injection, auto-injector (EpiPen) 0.3 mg (0.3 mL) IM ONCE #1 ea 01/08/23 [Rx Last Taken Unknown] fluticasone fur. 200 mcg-umeclid 62.5 mcg-vilant 25 mcg inhalat.powder (Trelegy Ellipta) 1 inh inhalation DAILY #3 ea 01/08/23 [Rx Last Taken Unknown] ipratropium 0.5 mg-albuterol 3 mg (2.5 mg base)/3 mL nebulization soln 3 ml inhalation Q4H PRN Shortness Of Breath Or Wheezing #180 mL 01/08/23 [Rx Last Taken Unknown] benralizumab 30 mg/mL subcutaneous auto-injector (Fasenra Pen) 30 mg subcut Q4W #1 mL 01/24/23 [Rx Last Taken Unknown] prednisone 10 mg tablet 10 mg PO QDAY #100 tabs 01/24/23 [Rx Last Taken Unknown] albuterol sulfate 2.5 mg/3 mL (0.083 %) solution for nebulization 2.5 mg (3 mL) inhalation Q6H PRN PRN Sob &/Or Wheezing #180 mL 05/03/23 [Rx Last Taken Unknown] Allergy/AdvReac Type Severity Reaction Status Date / Time Penicillins [PCN] Allergy Anaphylaxis Verified 05/18/23 16:27 Family History Mother Hypertension Heart disease Eczema AAA (abdominal aortic aneurysm) Fibromyalgia Father Lung cancer Alcohol abuse Colon cancer Sister Hypertension Asthma Migraine headache Gout Fibromyalgia Aunt Breast cancer Aunt Breast cancer Surgical History History of appendectomy History of hysterectomy Social History Smoking Status: Light Smoker (<10/day) alcohol intake: former substance use type: does not use ROS ROS ED Constitutional Constitutional ED: Denies chills or fever(s) Eyes Eyes: Denies blurry vision or change in vision ENT ENT ED: Denies rhinorrhea or sore throat Cardiovascular Cardiovascular: Reports chest pain and palpitations Respiratory/Chest Respiratory/Chest: Reports cough and dyspnea Gastrointestinal Gastrointestinal: Denies nausea or vomiting Genitourinary Genitourinary ED: Denies dysuria or hematuria Musculoskeletal Musculoskeletal: Reports neck pain; Denies back pain Integumentary Denies abscess or rash Neurologic Neurologic: Denies headache(s) or weakness Allergic/Immunologic Allergic/Immunologic ED: Denies mouth swelling or urticaria EXAM Physical Exam Const Vital Signs: 05/18/23 16:06 05/18/23 16:27 05/18/23 16:28 Temperature 96.8 F L Temperature Source Temporal Pulse Rate 95 88 Respiratory Rate 16 23 H Respiratory Effort Normal Non-Labored Respiratory Depth Respiratory Pattern Blood Pressure 143/83 H 120/93 H Blood Pressure Mean 103 102 Pulse Ox 97 Oxygen Delivery Method Room Air Room Air 05/18/23 16:31 05/18/23 16:52 05/18/23 17:04 Temperature Temperature Source Pulse Rate 77 Respiratory Rate 18 Respiratory Effort Normal Non-Labored Respiratory Depth Normal Respiratory Pattern Normal Normal Blood Pressure Blood Pressure Mean Pulse Ox 99 Oxygen Delivery Method Room Air Room Air 05/18/23 18:50 Temperature Temperature Source Pulse Rate 72 Respiratory Rate 12 Respiratory Effort Respiratory Depth Respiratory Pattern Blood Pressure 123/78 H Blood Pressure Mean 93 Pulse Ox 97 Oxygen Delivery Method Room Air Positive well nourished, well developed and obese General Appearance ED: well developed and NAD Nutritional Appearance: obese HEENT Reports moist mucous membranes Neck supple and no JVD Resp normal respiratory effort Auscultation: wheezes expiratory wheezes and throughout Cardio regular rate and regular rhythm GI soft to palpation, non-tender and non-distended Extremity normal to inspection General Extremety ED: Negative for edema or tenderness General Extremity: Negative for edema Neuro oriented x3, CN's II-XII intact bilaterally and no sensory deficits noted Sensorium / Orientation: awake and alert Motor Exam: strength 5/5 throughout Psych mental status grossly normal Heart Score History: Slightly/Non-Suspicious ECG: Normal Age: >45 - <65 years Risk Factors: 1 or 2 Risk Factors Troponin: </= Normal Limit Score: 2 MDM MDM MDM Narrative Medical decision making narrative: Differential diagnosis includes cardiac dysrhythmia, cardiac ischemia, pulmonary embolism, pneumonia, musculoskeletal pain, anxiety, and pleurisy. EKG will be obtained to assess for cardiac dysrhythmia and cardiac ischemia. Chest x-ray will be obtained to assess for pneumonia and pneumothorax. D-dimer will be obtained to assess for pulmonary embolism. CBC will be obtained to assess for leukocytosis and anemia. Basic metabolic profile will be obtained to assess for electrolyte abnormality and renal function. High-sensitivity troponin will be obtained to assess for cardiac ischemia. 2-hour repeat high-sensitivity troponin will be obtained to assess for ongoing cardiac ischemia. Lab Data Attestation: I reviewed the patient's lab results. Lab results narrative: CBC was reviewed. There is a mild leukocytosis of 11.4. The remainder is within normal limits. D-dimer was reviewed and was normal at 0.47. Basic metabolic profile was reviewed and was essentially within normal limits. Initial high-sensitivity troponin was reviewed and was normal at 5. 2-hour repeat high-sensitivity troponin was reviewed and was normal at 4. Labs: Laboratory Results - last 24 hr 05/18/23 05/18/23 16:07 18:12 WBC 11.4 H RBC 4.75 Hgb 13.2 Hct 41.2 MCV 86.7 MCH 27.8 MCHC 32.0 RDW Std Deviation 45.2 H RDW Coeff of Rui 14.1 Plt Count 396 MPV 10.2 Immature Gran % (Auto) 0.400 Neut % (Auto) 72.5 H Lymph % (Auto) 21.5 Payne % (Auto) 5.4 Eos % (Auto) 0.0 Baso % (Auto) 0.2 Absolute Neuts (auto) 8.3 H Absolute Lymphs (auto) 2.44 Nucleated RBC % 0 D-Dimer Quant (PE/DVT) 0.47 Sodium 136 Potassium 3.5 Chloride 104 Carbon Dioxide 27.0 Anion Gap 5 BUN 13 Creatinine 1.03 H Estim Creat Clear Calc 47.66 Est GFR (MDRD) Af Amer 72 Est GFR (MDRD) Non-Af 60 BUN/Creatinine Ratio 12.6 Glucose 126 H Calcium 9.0 Troponin I High Sens 5 4 Radiography Chest X-Ray - ED: 1 View, Read by ED Physician, Read by Radiologist and No Acute Disease Diagnostic Testing: Clinical Impression(s) from Imaging Studies Chest X-Ray 05/18/23 16:57 IMPRESSION: 1. Shallow inspiration crowding of bronchovascular markings at the lung bases. No consolidation, congestive failure or effusion. Electronically Signed: Servando Ferguson MD at 17:20 EST , Portable 1 view chest x-ray was obtained. On my independent interpretation, lung lees are clear. There is normal cardiac silhouette. Bony thorax is normal. There is no acute process noted. Radiologist also interpreted the x-ray and agrees. EKG Initial EKG: Attestation: I personally reviewed and interpreted this EKG as follows: Interpretation: Sinus Rhythm (88) and No Acute Injury Pattern Comments: EKG was obtained. On my independent interpretation, it showed a normal sinus rhythm with a rate of 88. KS interval, QRS interval, and QTc intervals were all normal. [place] was normal. There are no acute ST or T wave changes. Prior EKG tracings: available for review Prior: Unchanged (03/31/2021) Treatment and Re-Evaluation :: Patient was given aspirin. Patient was given a DuoNeb aerosol. Patient was advised of her findings. Patient has a HEART score of 2. Patient was advised that this is low risk for acute cardiac event. Patient was instructed to follow-up with her primary care physician in 5 to 7 days. Patient was instructed to continue her inhalers. Patient was instructed to return if worse in any way. Patient understood and was agreeable with the plan. All questions were answered. Discharge Plan Triage Chief Complaint: Chest Pain ED Provider: Aydin Almodovar Dx/Rx/DC Orders Clinical Impression: Right-sided chest pain, Tobacco abuse Instructions: ED Chest Pain, Uncertain Cause Prescriptions: No Action zolpidem 5 mg tablet 5 mg PO QHS PRN (Reason: Sleep) cyclobenzaprine 10 mg tablet 10 mg PO TID PRN (Reason: Muscle Spasm) pantoprazole 40 mg tablet,delayed release (DR/EC) 40 mg PO DAILY ergocalciferol (vitamin D2) 1,250 mcg (50,000 unit) capsule 1,250 mcg PO QWEEK ibuprofen 800 mg tablet 800 mg PO PRN PRN (Reason: Pain) dicyclomine 10 mg capsule 10 mg PO QHS guaifenesin 1,200 mg tablet extended release 12hr 1,200 mg PO Q12H Qty: 60 6RF loratadine [Claritin] 10 mg tablet 10 mg PO DAILY Qty: 90 3RF amitriptyline 25 mg tablet 25 mg PO QHS albuterol sulfate [Ventolin HFA] 90 mcg/actuation HFA aerosol inhaler 1 puff inhalation Q4H PRN PRN (Reason: Sob &/Or Wheezing) Qty: 8.5 6RF Trelegy Ellipta 200-62.5-25 mcg blister with device 1 inh inhalation DAILY Qty: 3 3RF ipratropium-albuterol 0.5 mg-3 mg(2.5 mg base)/3 mL solution for nebulization 3 ml INHALATION Q4H PRN (Reason: Shortness Of Breath Or Wheezing) Qty: 180 11RF epinephrine [EpiPen] 0.3 mg/0.3 mL auto-injector 0.3 mg IM ONCE Qty: 1 0RF Rx Instructions: as a single dose; may repeat once Fasenra Pen 30 mg/mL auto-injector 30 mg subcut Q4W Qty: 1 12RF prednisone 10 mg tablet 10 mg PO QDAY Qty: 100 0RF Rx Instructions: take 4 tabs for three days, then 3 tabs for three days, then 2 tabs for three days, then 1 tab for 3 days albuterol sulfate 2.5 mg /3 mL (0.083 %) solution for nebulization 2.5 mg inhalation Q6H PRN PRN (Reason: Sob &/Or Wheezing) Qty: 180 11RF aspirin 81 MG tablet,chewable 81 mg PO DAILY@0800 Qty: 30 1RF fluticasone propionate 1 SPRAY spray,suspension 1 spray NASAL BID montelukast 10 mg Tablet 10 mg PO DAILY Preparation H(pe,cb) 0.25-88.44 % Suppository 1 supp KS PRN PRN (Reason: Hemorrhoids) Primary Care Provider: LAURA RUCKER Referrals: LAURA RUCKER, ADVERTISING WRITER-C [Primary Care Provider] - 5-7 Days Disposition Disposition: Home, Self Care
[2023-05-18 16:27] VITALS: BP 120/93; PULSE 88; RESP 23
[2023-05-18 16:52] VITALS: O2SAT 99
[2023-05-18] MEDS: Aspirin 81 MG TAB.CHEW 324 MG PO (16:54)
--- NOTE | 2023-05-18 16:57 | RAD_ITS ---
INDICATION: chest pain EXAMINATION/TECHNIQUE: X-RAY - XR Chest 1 View COMPARISON: No previous relevant examinations available for comparison.. FINDINGS: LIFE-SUPPORT AND LINES: 1. None HEART AND VESSELS: The cardiac silhouette, pulmonary vasculature have normal appearance. No evidence of congestive failure. LUNGS AND PLEURAL SPACES: Shallow inspiration crowding of bronchovascular markings at the lung bases without consolidation or effusion. No pulmonary mass is noted. MEDIASTINUM AND HILAR REGIONS: No masses adenopathy noted. No areas of calcification. Visualized upper airway is normal in position. BONY ELEMENTS: No acute bony changes noted. RAD/Chest 1 View (Portable) IMPRESSION: 1. Shallow inspiration crowding of bronchovascular markings at the lung bases. No consolidation, congestive failure or effusion. Electronically Signed: Servando Ferguson MD at 17:20 EST ,
--- NOTE | 2023-05-18 17:00 | EKG12_ITS ---
Test Reason : CP Blood Pressure : / mmHG Vent. Rate : 088 BPM Atrial Rate : 088 BPM P-R Int : 170 ms QRS Dur : 100 ms QT Int : 360 ms P-R-T Axes : 068 062 058 degrees QTc Int : 435 ms Normal sinus rhythm Normal ECG Confirmed by JOSE DE JESUS ROCHA, CHAO ([id number]), technical editor SATHYA MUHAMMAD [id number]) on 05/21/2023 8:28:04 AM Referred By: CELESTE/KYLAH Confirmed By:MAXIMO DELA CRUZ MD
[2023-05-18] MEDS: Ipratropium/Albuterol Sulfate 3 ML AMPUL.NEB INHALATION (17:02)
[2023-05-18 17:04] VITALS: PULSE 77; RESP 18
[2023-05-18 17:07] LABS: Absolute Lymphocyte Count 2.44 X10^3/uL (0.83-4.51); Absolute Neutrophil Count 8.3 X10^3/uL (2.0-7.7); Basophil# 0.02 X10^3/uL; Basophil% 0.2 % (0-1); Hematocrit 41.2 % (37-47); Hemoglobin 13.2 g/dL (12.0-15.0); Lymphocyte # 2.44 X10^3/ul (0.83-4.51); Lymphocyte % 21.5 % (19-41); Mean Corpuscular Hgb 27.8 pg (27.0-32.0); Mean Corpuscular Volume 86.7 fL (81-99); Mean Platelet Vol. 10.2 fl (6.2-12.0); Monocyte# 0.61 X10^3/uL; Monocyte% 5.4 % (0-10); NRBC Flagged by Analyzer 0 % (0-5); Neutrophil # 8.26 X10^3/uL (2.7-7.7); Neutrophil % 72.5 % (47-70); Platelet Count 396 K/mm3 (150-450); RBC Distribution Width CV 14.1 % (11.6-14.6); RBC Distribution Width SD 45.2 fl (35.1-43.9); Red Blood Count 4.75 M/mm3 (4.2-5.4); White Blood Count 11.4 K/mm3 (4.4-11.0)
[2023-05-18 17:24] LABS: Anion Gap 5 (5-15); BUN 13 mg/dL (7-18); BUN/Creat Ratio 12.6 RATIO (10-20); Chloride 104 mmol/L (98-107); Creatinine, Serum 1.03 mg/dL (0.55-1.02); EST Glomerular Filtration Rate 60 mL/min (>60); Est Glom Filt Rate - Afr Amer 72 mL/min (>60); Estimated Creatinine Clearance 47.66 ml/min; Glucose 126 mg/dL (74-106); Potassium 3.5 mmol/L (3.5-5.1); Sodium Level 136 mmol/L (136-145); Troponin-I HS (w/2H Reflex) 5 pg/mL (3.0-54.0)
[2023-05-18 17:34] LABS: D-Dimer Quantitative (DVT/PE) 0.47 FEU/ug/m (0.27-0.49)
[2023-05-18 18:44] LABS: Reflex Troponin-HS? (from REC) Y
[2023-05-18 18:50] VITALS: BP 123/78; PULSE 72; RESP 12; O2SAT 97
[2023-05-18 19:05] LABS: Troponin-I HS 4 pg/mL (3.0-54.0)
[2023-05-18 19:37] VITALS: BP 127/87; PULSE 73; O2SAT 98
== END 2023-05-18 19:57 | disposition home or self-care (01) ==
PROVIDERS: Emergency Provider Emergency Medicine; PCP Nurse Practitioner; Visit Provider Emergency Medicine
DX: R07.9 Chest pain, unspecified (principal); J44.9 Chronic obstructive pulmonary disease, unspecified; Z72.0 Tobacco use; Z79.51 Long term (current) use of inhaled steroids; K21.9 Gastro-esophageal reflux disease without esophagitis; Z90.49 Acquired absence of other specified parts of digestive tract; Z90.710 Acquired absence of both cervix and uterus
CPT/HCPCS: 71045; 80048; 84484; 85025; 85379; 93005; 94640; 99285; A4216

== ENCOUNTER 2023-08-26 18:36 | Emergency (ER) | payer MEDICAID, SELFPAY ==
[2023-08-26 18:37] VITALS: BP 131/98; PULSE 106; RESP 20; TEMP 37.8; O2SAT 95; BMI 25.5
--- NOTE | 2023-08-26 18:40 | ED.VIS.CHEST ---
HPI History of Present Illness Chief Complaint: Chest Pain PFSH [facility] Medical History Anorexia nervosa Anxiety Asthma Duenas's esophagus Bulimia nervosa COPD (chronic obstructive pulmonary disease) Emphysema lung GERD (gastroesophageal reflux disease) H. pylori infection History of uterine cancer Hx of migraines Internal hemorrhoids Lung disease Snoring Home Medications aspirin 81 mg chewable tablet 81 mg PO DAILY@0800 ##30 10/14/15 [Rx Last Taken Unknown] fluticasone propionate 50 mcg/actuation nasal spray,suspension 1 spray BID 02/13/16 [History Last Taken Unknown] cyclobenzaprine 10 mg tablet 10 mg PO TID PRN Muscle Spasm 12/09/21 [History Last Taken Unknown] dicyclomine 10 mg capsule 10 mg PO QHS 12/09/21 [History Last Taken Unknown] ergocalciferol (vitamin D2) 1,250 mcg (50,000 unit) capsule 1,250 mcg PO QWEEK 12/09/21 [History Last Taken Unknown] ibuprofen 800 mg tablet 800 mg PO PRN PRN Pain 12/09/21 [History Last Taken Unknown] pantoprazole 40 mg tablet,delayed release 40 mg PO DAILY 12/09/21 [History Last Taken Unknown] zolpidem 5 mg tablet 5 mg PO QHS PRN Sleep 12/09/21 [History Last Taken Unknown] guaifenesin 1,200 mg tablet, extended release 12 hr 1,200 mg PO Q12H #60 tabs 01/06/22 [Rx Last Taken Unknown] loratadine 10 mg tablet (Claritin) 10 mg PO DAILY #90 tabs 01/06/22 [Rx Last Taken Unknown] montelukast 10 mg tablet 10 mg PO DAILY 02/09/22 [History Last Taken Unknown] phenylephrine 0.25 %-cocoa butter 88.44 % rectal suppository (Preparation H(phenyleph,cocoa buttr)) 1 supp NE PRN PRN Hemorrhoids 02/09/22 [History Last Taken Unknown] albuterol sulfate 90 mcg/actuation aerosol inhaler (Ventolin HFA) 1 puff inhalation Q4H PRN PRN Sob &/Or Wheezing #8.5 grams 05/16/22 [Rx Last Taken Unknown] amitriptyline 25 mg tablet 25 mg PO QHS 05/16/22 [History Last Taken Unknown] epinephrine 0.3 mg/0.3 mL injection, auto-injector (EpiPen) 0.3 mg (0.3 mL) IM ONCE #1 ea 01/08/23 [Rx Last Taken Unknown] fluticasone fur. 200 mcg-umeclid 62.5 mcg-vilant 25 mcg inhalat.powder (Trelegy Ellipta) 1 inh inhalation DAILY #3 ea 01/08/23 [Rx Last Taken Unknown] ipratropium 0.5 mg-albuterol 3 mg (2.5 mg base)/3 mL nebulization soln 3 ml inhalation Q4H PRN Shortness Of Breath Or Wheezing #180 mL 01/08/23 [Rx Last Taken Unknown] benralizumab 30 mg/mL subcutaneous auto-injector (Fasenra Pen) 30 mg subcut Q4W #1 mL 01/24/23 [Rx Last Taken Unknown] prednisone 10 mg tablet 10 mg PO QDAY #100 tabs 01/24/23 [Rx Last Taken Unknown] albuterol sulfate 2.5 mg/3 mL (0.083 %) solution for nebulization 2.5 mg (3 mL) inhalation Q6H PRN PRN Sob &/Or Wheezing #180 mL 05/03/23 [Rx Last Taken Unknown] azithromycin 250 mg tablet See Rx Instructions PO .COMPLEX #6 tabs 08/23/23 [Rx Last Taken Unknown] levofloxacin 750 mg tablet 750 mg PO DAILY #5 tabs 08/26/23 [Rx Last Taken Unknown] Allergy/AdvReac Type Severity Reaction Status Date / Time Penicillins [PCN] Allergy Anaphylaxis Verified 08/26/23 18:37 Family History (Reviewed 01/24/23 @ 11:34 by Margret Valencia PEDIATRICS PHYSICIAN, PEDIATRICS PHYSICIAN-C) Mother Hypertension Heart disease Eczema AAA (abdominal aortic aneurysm) Fibromyalgia Father Lung cancer Alcohol abuse Colon cancer Sister Hypertension Asthma Migraine headache Gout Fibromyalgia Aunt Breast cancer Aunt Breast cancer Surgical History History of appendectomy History of hysterectomy Social History Smoking Status: Light Smoker (<10/day) alcohol intake: former substance use type: does not use EXAM Physical Exam Const Vital Signs: 08/26/23 18:37 08/26/23 19:05 08/26/23 20:00 Temperature 100.1 F H Temperature Source Temporal Pulse Rate 106 H 99 Respiratory Rate 20 H 22 H Blood Pressure 131/98 H Blood Pressure Mean 109 Pulse Ox 95 99 Oxygen Delivery Method Room Air Room Air Room Air 08/26/23 21:00 08/26/23 22:07 Temperature 97.3 F L Temperature Source Pulse Rate 98 105 H Respiratory Rate 24 H 16 Blood Pressure 110/86 H 128/93 H Blood Pressure Mean 94 104 Pulse Ox 99 99 Oxygen Delivery Method Room Air [facility] Narrative Medical decision making narrative: HISTORY OF PRESENT ILLNESS: 52-year-old female presents with chest pain. She states she was recently treated for bronchitis with prednisone and a Z-Roberto. She notes tonight she developed sharp burning chest pain and bilateral arm numbness. She further states pain is ongoing for several days and worsened tonight. Denies losing consciousness. Denies any bleeding diathesis. Denies any vomiting or diarrhea. Denies any sick contacts. The patient denies recent surgery in the last 4 weeks or immobilization in the last 3 days, denies previous diagnosis of DVT or PE, hemoptysis, unilateral leg swelling or malignancy with treatment the last 6 months or palliative. No estrogen use noted. Patient denies sudden onset of pain, no tearing sensation, no migratory symptoms, no new numbness, weakness or loss of sensation. Patient denies family history or personal history of Connective tissue disorders (Marfan's Syndrome, Марина Danlos etc) REVIEW OF SYSTEMS: Pertinent positives: Chest pain, numbness, dry cough Pertinent negatives: Syncope, focal weakness, loss of sensation, PHYSICAL EXAM: Nursing triage notes reviewed, Vital signs reviewed Constitutional: please see mdm HENT: MMM Eyes: Pupils equal round and reactive to light, Extraocular muscles intact Neck: No stridor, no JVD, full neck ROM Lungs: Clear to auscultation, No wheezing or rales. No increased work of breathing, no conversational dyspnea, no accessory muscle use, no nasal flaring. No respiratory distress noted Heart: Regular rate and rhythm, No murmurs, No rubs and No gallops, 2+ distal pulses (radial, femoral, posterior tibial) in all extremities Abdomen: Soft, there is no tenderness, rigidity, rebound or guarding, no obvious peritoneal signs, no palpable pulsatile abdominal masses, no auscultated abdominal bruit : No CVAT Extremities: No edema Neuro: No focal neurological deficits, cranial nerves II through XII intact, 5/5 strength in all extremities. Intact sensation to light touch in all extremities, 2+ reflexes bilateral patella tendons. No ataxia. Intact 5/5 strength with ok sign (median), intact finger abduction (ulnar) intact wrist extension (radial n). Intact sensation in the radial, ulnar, and median nerve distributions. Skin: No rash or lesions noted MEDICAL DECISION MAKING: Chief Complaint: Chest pain External records reviewed: Echocardiogram from 2016 shows ejection fraction 65 Factors affecting care: COPD Social determinants of health: Tobacco abuse History obtained from others: The patient's Consults: none MDM Narrative: Patient was initially tachycardic, tachypneic and febrile. Lung exam without obvious consolidative process. No stigmata of VTE. No pulse deficits noted. I considered pulmonary embolism however the patient low risk Wells score and as such have a low suspicion for acute PE. There is no pulse deficits, history of connective tissue diseases or signs of focal neurologic deficits to suggest aortic dissection. I considered the following differential diagnosis: COVID, flu, RSV, pneumonia, COPD exacerbation, ACS, arrhythmia, anemia, PE, dissection I obtained a broad lab and imaging workup to further elucidate the etiology of patient's complaints Aspirin given for chest pain and fever control. ALL IMAGES (IF OBTAINED) HAVE BEEN PERSONALLY REVIEWED AND INTERPRETED BY MYSELF. EKG with normal sinus rhythm, normal axis, no intervals, no STEMI CBC without leukocytosis, severe anemia, no thrombocytopenia. BMP without evidence of significant electrolyte abnormalities, no anion gap, no acute kidney injury. High-sensitivity troponin is negative, no evidence of myocardial ischemia x 2 BNP within normal limits suggestive of no increased ventricular stretch or transmural pressure I have personally reviewed the patient's chest x-ray. Chest x-ray is unremarkable for pulmonary edema, pneumothorax, pneumonia or focal cardiopulmonary abnormality. COVID flu RSV negative The synthesis of his history, physical exam, labs images suggest no acute life-threatening etiology. Given her fever cough chest pain concern for infection her x-ray is negative. Will give prophylactic antibiotics given history of COPD and signs of infection (cough, fever, CP). The patient and/or family, caregivers express understanding. The patient and/or family, caregivers agrees with the plan. Shared decision making: I will have a discussion with the patient and or visitors regarding risk/benefits of further testing or admission. They will be made aware of of the risk/benefits inherent in this decision they will be given the opportunity to voice understanding. Total critical care time today provided was at least 0 minutes. This excludes separately billable procedures. Critical care time (if documented) is secondary to the patient having high probability of clinically significant/life threatening deterioration in the patient's condition which required my urgent intervention. Impression: 1. Chest pain 2. Fever 3. Clinical pneumonia Dispo: Discharge home This note was generated with [employer] dictation software. It may contain incorrect words, spelling, and punctuation that were not noted in review of the chart prior to signing. Lab Data Labs: Laboratory Results - last 24 hr 08/26/23 08/26/23 18:50 21:06 WBC 9.9 RBC 4.85 Hgb 13.3 Hct 42.0 MCV 86.6 MCH 27.4 MCHC 31.7 L RDW Std Deviation 44.7 H RDW Coeff of Rui 14.0 Plt Count 357 MPV 10.3 Immature Gran % (Auto) 0.500 Neut % (Auto) 70.8 H Lymph % (Auto) 18.6 L [place] % (Auto) 9.5 Eos % (Auto) 0.2 Baso % (Auto) 0.4 Absolute Neuts (auto) 7.0 Absolute Lymphs (auto) 1.83 Nucleated RBC % 0 Sodium 139 Potassium 3.6 Chloride 108 H Carbon Dioxide 27.0 Anion Gap 4 L BUN 11 Creatinine 0.80 Estim Creat Clear Calc 68.34 Est GFR (MDRD) Af Amer 97 Est GFR (MDRD) Non-Af 80 BUN/Creatinine Ratio 13.8 Glucose 99 Calcium 8.8 Troponin I High Sens 4 5 B-Natriuretic Peptide 12.8 Radiography Diagnostic Testing: Clinical Impression(s) from Imaging Studies Chest X-Ray 08/26/23 18:53 IMPRESSION: No radiographic evidence of acute cardiopulmonary disease. Electronically Signed: Aydin Houser MD at 19:31 EST , Discharge Plan Triage Chief Complaint: Chest Pain ED Provider: Compa Martin Dx/Rx/DC Orders Instructions: Treating Pneumonia Prescriptions: New levofloxacin 750 mg tablet 750 mg PO DAILY Qty: 5 0RF No Action zolpidem 5 mg tablet 5 mg PO QHS PRN (Reason: Sleep) cyclobenzaprine 10 mg tablet 10 mg PO TID PRN (Reason: Muscle Spasm) pantoprazole 40 mg tablet,delayed release (DR/EC) 40 mg PO DAILY ergocalciferol (vitamin D2) 1,250 mcg (50,000 unit) capsule 1,250 mcg PO QWEEK ibuprofen 800 mg tablet 800 mg PO PRN PRN (Reason: Pain) dicyclomine 10 mg capsule 10 mg PO QHS guaifenesin 1,200 mg tablet extended release 12hr 1,200 mg PO Q12H Qty: 60 6RF loratadine [Claritin] 10 mg tablet 10 mg PO DAILY Qty: 90 3RF amitriptyline 25 mg tablet 25 mg PO QHS albuterol sulfate [Ventolin HFA] 90 mcg/actuation HFA aerosol inhaler 1 puff inhalation Q4H PRN PRN (Reason: Sob &/Or Wheezing) Qty: 8.5 6RF Trelegy Ellipta 200-62.5-25 mcg blister with device 1 inh inhalation DAILY Qty: 3 3RF ipratropium-albuterol 0.5 mg-3 mg(2.5 mg base)/3 mL solution for nebulization 3 ml INHALATION Q4H PRN (Reason: Shortness Of Breath Or Wheezing) Qty: 180 11RF epinephrine [EpiPen] 0.3 mg/0.3 mL auto-injector 0.3 mg IM ONCE Qty: 1 0RF Rx Instructions: as a single dose; may repeat once Fasenra Pen 30 mg/mL auto-injector 30 mg subcut Q4W Qty: 1 12RF prednisone 10 mg tablet 10 mg PO QDAY Qty: 100 0RF Rx Instructions: take 4 tabs for three days, then 3 tabs for three days, then 2 tabs for three days, then 1 tab for 3 days albuterol sulfate 2.5 mg /3 mL (0.083 %) solution for nebulization 2.5 mg inhalation Q6H PRN PRN (Reason: Sob &/Or Wheezing) Qty: 180 11RF aspirin 81 MG tablet,chewable 81 mg PO DAILY@0800 Qty: 30 1RF fluticasone propionate 1 SPRAY spray,suspension 1 spray NASAL BID montelukast 10 mg Tablet 10 mg PO DAILY Preparation H(pe,cb) 0.25-88.44 % Suppository 1 supp NE PRN PRN (Reason: Hemorrhoids) azithromycin 250 mg tablet See Rx Instructions PO .COMPLEX Qty: 6 0RF Rx Instructions: take 500 mg today (day 1), then 250 mg for 4 days (days 2-5) PO Primary Care Provider: LAURA RUCKER Referrals: LAURA RUCKER NP-C [Primary Care Provider] - Activity Restrictions/Additional Instructions: Thank you for trusting us with your care today! Please take Tylenol (2 pills, 650 mg), ibuprofen (2 pills, 400 mg) every 6 hours as needed for pain and fever control. Please take antibiotics as prescribed. Please return to the emergency department if your symptoms change or worsen. Please follow with your primary care physician for further outpatient evaluation and management. Disposition Disposition: Home, Self Care Discharge Date/Time: 08/26/23 22:16
--- NOTE | 2023-08-26 18:42 | EKG12_ITS ---
Test Reason : CP Blood Pressure : / mmHG Vent. Rate : 098 BPM Atrial Rate : 098 BPM P-R Int : 168 ms QRS Dur : 078 ms QT Int : 332 ms P-R-T Axes : 064 051 068 degrees QTc Int : 423 ms Normal sinus rhythm Normal ECG Confirmed by LYNDSAY ROCHA, NGOZI ([id number]), purchase request editor MAMI RIVERA ([id number]) on 08/27/2023 10:22:06 AM Referred By: AMILCAR Confirmed By:NGOZI UMANA MD
--- NOTE | 2023-08-26 18:53 | RAD_ITS ---
EXAM: XR CHEST, 1 VIEW CLINICAL INDICATION: chest pain TECHNIQUE: Frontal view of the chest. COMPARISON: 05/18/2023 FINDINGS: LUNGS AND PLEURAL SPACES: Unremarkable. No consolidation or edema. No pneumothorax. No effusion. HEART: Unremarkable. Cardiac silhouette not enlarged. MEDIASTINUM: Central airways and mediastinal contour are unremarkable. BONES/JOINTS: Unremarkable. No acute fracture. SOFT TISSUES: Unremarkable. RAD/Chest 1 View (Portable) IMPRESSION: No radiographic evidence of acute cardiopulmonary disease. Electronically Signed: Aydin Houser MD at 19:31 EST ,
[2023-08-26] MEDS: Aspirin 81 MG TAB.CHEW 324 MG PO (19:03)
[2023-08-26 19:05] LABS: Absolute Lymphocyte Count 1.83 X10^3/uL (0.83-4.51); Basophil# 0.04 X10^3/uL; Basophil% 0.4 % (0-1); Eosinophil# 0.02 X10^3/uL; Eosinophils% 0.2 % (0-5); Hemoglobin 13.3 g/dL (12.0-15.0); Lymphocyte # 1.83 X10^3/ul (0.83-4.51); Lymphocyte % 18.6 % (19-41); Mean Corp Hgb Conc 31.7 g/dL (32-36); Mean Corpuscular Hgb 27.4 pg (27.0-32.0); Mean Corpuscular Volume 86.6 fL (81-99); Mean Platelet Vol. 10.3 fl (6.2-12.0); Monocyte# 0.94 X10^3/uL; Monocyte% 9.5 % (0-10); NRBC Flagged by Analyzer 0 % (0-5); Neutrophil # 6.98 X10^3/uL (2.7-7.7); Neutrophil % 70.8 % (47-70); Platelet Count 357 K/mm3 (150-450); RBC Distribution Width SD 44.7 fl (35.1-43.9); Red Blood Count 4.85 M/mm3 (4.2-5.4); White Blood Count 9.9 K/mm3 (4.4-11.0)
[2023-08-26 19:30] LABS: Anion Gap 4 (5-15); BUN 11 mg/dL (7-18); BUN/Creat Ratio 13.8 RATIO (10-20); Calcium,Total 8.8 mg/dL (8.5-10.1); Chloride 108 mmol/L (98-107); EST Glomerular Filtration Rate 80 mL/min (>60); Est Glom Filt Rate - Afr Amer 97 mL/min (>60); Estimated Creatinine Clearance 68.34 ml/min; Glucose 99 mg/dL (74-106); Potassium 3.6 mmol/L (3.5-5.1); Sodium Level 139 mmol/L (136-145); Troponin-I HS (w/2H Reflex) 4 pg/mL (3.0-54.0)
[2023-08-26 19:36] LABS: BNP,B-Type NATRIURETIC PEPTIDE 12.8 pg/mL (0-100)
[2023-08-26 20:00] VITALS: PULSE 99; RESP 22; O2SAT 99
[2023-08-26 21:00] VITALS: BP 110/86; PULSE 98; RESP 24; O2SAT 99
[2023-08-26 21:00] LABS: Reflex Troponin-HS? (from REC) Y
[2023-08-26 21:28] LABS: Troponin-I HS 5 pg/mL (3.0-54.0)
[2023-08-26 22:07] VITALS: BP 128/93; PULSE 105; RESP 16; TEMP 36.3; O2SAT 99
[2023-08-26] MEDS: levoFLOXacin 750 MG Tablet PO (22:13)
== END 2023-08-26 22:16 | disposition home or self-care (01) ==
PROVIDERS: Emergency Provider Emergency Medicine; PCP Nurse Practitioner; Visit Provider Emergency Medicine
DX: J18.9 Pneumonia, unspecified organism (principal); J44.9 Chronic obstructive pulmonary disease, unspecified; F17.200 Nicotine dependence, unspecified, uncomplicated; R07.9 Chest pain, unspecified; Z79.51 Long term (current) use of inhaled steroids; K21.9 Gastro-esophageal reflux disease without esophagitis; Z90.49 Acquired absence of other specified parts of digestive tract; Z90.710 Acquired absence of both cervix and uterus; Z79.899 Other long term (current) drug therapy; R06.82 Tachypnea, not elsewhere classified; R50.9 Fever, unspecified
CPT/HCPCS: 71045; 80048; 83880; 84484; 85025; 87631; 93005; 99284; A4216

== ENCOUNTER 2023-11-30 15:24 | Emergency (ER) | payer MEDICAID, SELFPAY ==
[2023-11-30 15:25] VITALS: BP 145/97; PULSE 95; RESP 18; TEMP 36.4; O2SAT 98; BMI 24.7
--- NOTE | 2023-11-30 15:32 | EKG12_ITS ---
Test Reason : Blood Pressure : / mmHG Vent. Rate : 085 BPM Atrial Rate : 085 BPM P-R Int : 164 ms QRS Dur : 078 ms QT Int : 356 ms P-R-T Axes : 076 051 073 degrees QTc Int : 423 ms Normal sinus rhythm Normal ECG Confirmed by Brian Mohr ([id number]), scientific editor SATHYA MUHAMMAD ([id number]) on 12/03/2023 8:03:12 AM Referred By: ALANIS HALL Confirmed By:Brian Mohr
[2023-11-30] MEDS: Ipratropium/Albuterol Sulfate 3 ML AMPUL.NEB INHALATION (15:38)
[2023-11-30 15:39] VITALS: PULSE 97; RESP 20
[2023-11-30] MEDS: Albuterol 2.5 MG/3 ML VIAL.NEB. INHALATION ×3 (15:40→15:50)
[2023-11-30 15:53] LABS: Absolute Lymphocyte Count 2.37 X10^3/uL (0.83-4.51); Absolute Neutrophil Count 7.1 X10^3/uL (2.0-7.7); Basophil# 0.01 X10^3/uL; Basophil% 0.1 % (0-1); Eosinophil# 0.01 X10^3/uL; Eosinophils% 0.1 % (0-5); Hematocrit 44.8 % (37-47); Hemoglobin 14.5 g/dL (12.0-15.0); Lymphocyte # 2.37 X10^3/ul (0.83-4.51); Lymphocyte % 23.8 % (19-41); Mean Corp Hgb Conc 32.4 g/dL (32-36); Mean Corpuscular Volume 86.7 fL (81-99); Mean Platelet Vol. 10.4 fl (6.2-12.0); Monocyte# 0.51 X10^3/uL; Monocyte% 5.1 % (0-10); NRBC Flagged by Analyzer 0 % (0-5); Neutrophil # 7.05 X10^3/uL (2.7-7.7); Neutrophil % 70.7 % (47-70); Platelet Count 391 K/mm3 (150-450); RBC Distribution Width CV 14.1 % (11.6-14.6); RBC Distribution Width SD 45.4 fl (35.1-43.9); Red Blood Count 5.17 M/mm3 (4.2-5.4)
--- NOTE | 2023-11-30 16:04 | EX.ED.DYSGE1 ---
HPI History of Present Illness Chief Complaint: Chest Pain Detail of Chief Complaint: Sharp left-sided chest pain Informant: patient Onset/Context/Timing Onset: Today and Hours (0.75 hours prior to presentation) Context: Sudden Onset Timing: Continuous and Waxes and wanes Quality: Sharp and stabbing Location: Left side of the chest Current Severity: Mild Maximum Severity: Moderate Worsened by: Nothing Relieved by: Nothing Associated Symptoms Associated Symptoms: Shortness of breath Narrative Narrative: Patient is a 52-year-old woman with history of COPD, depression, reflux and cervical cancer who presents with abrupt onset of sharp and waxing waning left-sided stabbing chest pain with no associated symptoms or radiation. She does endorse history of COPD. She is a smoker. She does have a cough. Cough is essentially nonproductive. She denies fever, chills night sweats. She denies rhinorrhea, congestion postnasal drainage. She denies headache. Eye double vision blurred vision loss of vision. She denies ringing in ears or decreased hearing. He has never experienced chest pain like this before. Patient has hematemesis, black or maroon-colored stool. Patient denies neurologic symptoms. Patient denies urologic symptoms. Patient states she is still experiencing the pain. She is holding her left chest. She appears in no distress. Prior similar symptoms: No Recent Illness/Hospitalization: No [facility] Medical History (Updated 11/30/23 @ 17:[address] Vinay Junior MD) Snoring Hx of migraines Lung disease Internal hemorrhoids History of uterine cancer H. pylori infection GERD (gastroesophageal reflux disease) Emphysema lung Bulimia nervosa Duenas's esophagus Asthma Anxiety Anorexia nervosa COPD (chronic obstructive pulmonary disease) Home Medications ?Medication ?Instructions ?Recorded ?Last Taken ?Type aspirin 81 mg chewable tablet 81 mg PO DAILY@0800 ##30 10/14/15 Unknown Rx cyclobenzaprine 10 mg tablet 10 mg PO TID PRN Muscle Spasm 12/09/21 Unknown History dicyclomine 10 mg capsule 10 mg PO QHS 12/09/21 Unknown History ergocalciferol (vitamin D2) 1,250 1,250 mcg PO QWEEK 12/09/21 Unknown History mcg (50,000 unit) capsule ibuprofen 800 mg tablet 800 mg PO PRN PRN Pain 12/09/21 Unknown History pantoprazole 40 mg tablet,delayed 40 mg PO DAILY 12/09/21 Unknown History release zolpidem 5 mg tablet 5 mg PO QHS PRN Sleep 12/09/21 Unknown History guaifenesin 1,200 mg tablet, 1,200 mg PO Q12H #60 tabs 01/06/22 Unknown Rx extended release 12 hr loratadine 10 mg tablet (Claritin) 10 mg PO DAILY #90 tabs 01/06/22 Unknown Rx phenylephrine 0.25 %-cocoa butter 1 supp CA PRN PRN Hemorrhoids 02/09/22 Unknown History 88.44 % rectal suppository (Preparation H(phenyleph,cocoa buttr)) albuterol sulfate 90 mcg/actuation 1 puff inhalation Q4H PRN PRN Sob 05/16/22 Unknown Rx aerosol inhaler (Ventolin HFA) &/Or Wheezing #8.5 grams amitriptyline 25 mg tablet 25 mg PO QHS 05/16/22 Unknown History epinephrine 0.3 mg/0.3 mL 0.3 mg (0.3 mL) IM ONCE #1 ea 01/08/23 Unknown Rx injection, auto-injector (EpiPen) fluticasone fur. 200 mcg-umeclid 1 inh inhalation DAILY #3 ea 01/08/23 Unknown Rx 62.5 mcg-vilant 25 mcg inhalat.powder (Trelegy Ellipta) ipratropium 0.5 mg-albuterol 3 mg 3 ml inhalation Q4H PRN Shortness 01/08/23 Unknown Rx (2.5 mg base)/3 mL nebulization Of Breath Or Wheezing #180 mL soln benralizumab 30 mg/mL subcutaneous 30 mg subcut Q4W #1 mL 01/24/23 Unknown Rx auto-injector (Fasenra Pen) albuterol sulfate 2.5 mg/3 mL 2.5 mg (3 mL) inhalation Q6H PRN 05/03/23 Unknown Rx (0.083 %) solution for nebulization PRN Sob &/Or Wheezing #180 mL fluticasone propionate 50 1 spray BID #3 ea 11/05/23 Unknown Rx mcg/actuation nasal spray,suspension montelukast 10 mg tablet 10 mg PO DAILY #90 tabs 11/05/23 Unknown Rx prednisone 20 mg tablet 60 mg (3 x 20 mg) PO DAILY #15 11/30/23 Unknown Rx TABLETS Allergy/AdvReac Type Severity Reaction Status Date / Time Penicillins (PCN) Allergy Anaphylaxis Verified 11/05/23 09:48 Family History (Reviewed 11/05/23 @ 09:56 by Margret Valencia SECURITIES UNDERWRITER, SECURITIES UNDERWRITER-C) Mother Hypertension Heart disease Eczema AAA (abdominal aortic aneurysm) Fibromyalgia Father Lung cancer Alcohol abuse Colon cancer Sister Hypertension Asthma Migraine headache Gout Fibromyalgia Aunt Breast cancer Aunt Breast cancer Surgical History History of hysterectomy History of appendectomy Social History (Reviewed 11/05/23 @ 09:56 by Margret Valencia SECURITIES UNDERWRITER, SECURITIES UNDERWRITER-C) Smoking Status: Current every day smoker tobacco type: cigarettes alcohol intake: former substance use type: does not use EXAM Physical Exam Const Vital Signs: 11/30/23 15:25 11/30/23 15:39 11/30/23 16:25 Temperature 97.6 F L Temperature Source Temporal Pulse Rate 95 97 98 Respiratory Rate 18 20 H 16 Respiratory Pattern Tachypnea Blood Pressure 145/97 H 142/89 H Blood Pressure Mean 113 106 Pulse Ox 98 98 Oxygen Delivery Method Room Air Room Air MDM MDM MDM Narrative Medical decision making narrative: Differential diagnosis is COPD, pneumothorax, pneumonia, symptoms not consistent with cardiac ischemia. Will obtain EKG determine if there is any evidence of acute ischemia. If so we will pursue a cardiac workup. Chest x-ray to determine if there are any pulmonary findings to explain her pain. She was treated with Atrovent and 2 albuterol aerosol treatments. History & Record Review Additional record(s) reviewed:: Prior outpatient record (She was recently seen by Margret Dixon.Patient was seen November 04 pulmonary visit for COPD asthma. She also has a significant smoking history.) Lab Data Attestation: I reviewed the patient's lab results. Lab results narrative: CBC is normal Labs: Laboratory Results - last 24 hr 11/30/23 15:40 WBC 10.0 RBC 5.17 Hgb 14.5 Hct 44.8 MCV 86.7 MCH 28.0 MCHC 32.4 RDW Std Deviation 45.4 H RDW Coeff of Rui 14.1 Plt Count 391 MPV 10.4 Immature Gran % (Auto) 0.200 Neut % (Auto) 70.7 H Lymph % (Auto) 23.8 [place] % (Auto) 5.1 Eos % (Auto) 0.1 Baso % (Auto) 0.1 Absolute Neuts (auto) 7.1 Absolute Lymphs (auto) 2.37 Nucleated RBC % 0 Sodium 137 Potassium 3.6 Chloride 106 Carbon Dioxide 24.0 Anion Gap 7 BUN 10 Creatinine 0.96 Estim Creat Clear Calc 56.07 Est GFR (MDRD) Af Amer 78 Est GFR (MDRD) Non-Af 65 BUN/Creatinine Ratio 10.5 Glucose 119 H Calcium 9.5 Radiography Chest X-Ray - ED: Read by ED Physician (Chest x-ray reveals normal cardiac silhouette and size. Lung parenchyma is normal. [place] is normal. Osseous structures are normal. There is no evidence of pneumothorax, infiltrate or CHF.) Diagnostic Testing: Clinical Impression(s) from Imaging Studies Chest X-Ray 11/30/23 16:10 IMPRESSION: No acute radiographic abnormalities. Electronically Signed: Nahid Ferguson MD at 16:53 EDT , EKG Initial EKG: Attestation: I personally reviewed and interpreted this EKG as follows: Interpretation: Sinus Rhythm (Rate is 85 and EKG is normal. Parables under 6 4 ms per cures duration 78 ms per QT duration 3 and 56 ms. [place] is normal) Treatment and Re-Evaluation :: Patient was reassessed at 1659. Her pain is resolved. She feels markedly better. There is slight wheeze noted. Since there is still a slight wheeze she was placed on a burst of prednisone. She was discharged to home. She was informed it is in her best interest to quit smoking. Discharge Plan Triage Chief Complaint: Chest Pain ED Provider: Vinay Junior Dx/Rx/DC Orders Clinical Impression: Acute exacerbation of chronic obstructive pulmonary disease, Tobacco abuse, Acute bronchospasm, Left-sided chest pain Instructions: ED COPD Flare Prescriptions: New prednisone 20 mg tablet 60 mg PO DAILY Qty: 15 0RF No Action zolpidem 5 mg tablet 5 mg PO QHS PRN (Reason: Sleep) cyclobenzaprine 10 mg tablet 10 mg PO TID PRN (Reason: Muscle Spasm) pantoprazole 40 mg tablet,delayed release (DR/EC) 40 mg PO DAILY ergocalciferol (vitamin D2) 1,250 mcg (50,000 unit) capsule 1,250 mcg PO QWEEK ibuprofen 800 mg tablet 800 mg PO PRN PRN (Reason: Pain) dicyclomine 10 mg capsule 10 mg PO QHS guaifenesin 1,200 mg tablet extended release 12hr 1,200 mg PO Q12H Qty: 60 6RF loratadine [Claritin] 10 mg tablet 10 mg PO DAILY Qty: 90 3RF amitriptyline 25 mg tablet 25 mg PO QHS albuterol sulfate [Ventolin HFA] 90 mcg/actuation HFA aerosol inhaler 1 puff inhalation Q4H PRN PRN (Reason: Sob &/Or Wheezing) Qty: 8.5 6RF Trelegy Ellipta 200-62.5-25 mcg blister with device 1 inh inhalation DAILY Qty: 3 3RF ipratropium-albuterol 0.5 mg-3 mg(2.5 mg base)/3 mL solution for nebulization 3 ml INHALATION Q4H PRN (Reason: Shortness Of Breath Or Wheezing) Qty: 180 11RF epinephrine [EpiPen] 0.3 mg/0.3 mL auto-injector 0.3 mg IM ONCE Qty: 1 0RF Rx Instructions: as a single dose; may repeat once Fasenra Pen 30 mg/mL auto-injector 30 mg subcut Q4W Qty: 1 12RF albuterol sulfate 2.5 mg /3 mL (0.083 %) solution for nebulization 2.5 mg inhalation Q6H PRN PRN (Reason: Sob &/Or Wheezing) Qty: 180 11RF fluticasone propionate 50 mcg/actuation spray,suspension 1 spray NASAL BID Qty: 3 3RF montelukast 10 mg tablet 10 mg PO DAILY Qty: 90 3RF aspirin 81 MG tablet,chewable 81 mg PO DAILY@0800 Qty: 30 1RF Preparation H(pe,cb) 0.25-88.44 % Suppository 1 supp CA PRN PRN (Reason: Hemorrhoids) Primary Care Provider: LAURA RUCKER Referrals: LAURA RUCKER, SECURITIES UNDERWRITER-C [Primary Care Provider] - 3-5 Days if not improving Print Language: Malay Disposition Disposition: Home, Self Care
--- NOTE | 2023-11-30 16:10 | RAD_ITS ---
INDICATION: Productive cough, wheezing, Hx COPD EXAMINATION/TECHNIQUE: X-RAY - XR Chest 2 Views COMPARISON: 08/26/2023. FINDINGS: The lungs are clear. Tortuous and calcified thoracic aorta. The heart is not enlarged. No pleural effusion or pneumothorax. Degenerative changes of the thoracic spine. RAD/Chest PA and Lateral IMPRESSION: No acute radiographic abnormalities. Electronically Signed: Nahid Ferguson MD at 16:53 EDT ,
[2023-11-30 16:13] LABS: Anion Gap 7 (5-15); BUN 10 mg/dL (7-18); BUN/Creat Ratio 10.5 RATIO (10-20); Calcium,Total 9.5 mg/dL (8.5-10.1); Chloride 106 mmol/L (98-107); Creatinine, Serum 0.96 mg/dL (0.55-1.02); EST Glomerular Filtration Rate 65 mL/min (>60); Est Glom Filt Rate - Afr Amer 78 mL/min (>60); Estimated Creatinine Clearance 56.07 ml/min; Glucose 119 mg/dL (74-106); Potassium 3.6 mmol/L (3.5-5.1); Sodium Level 137 mmol/L (136-145)
[2023-11-30 16:25] VITALS: BP 142/89; PULSE 98; RESP 16; O2SAT 98
[2023-11-30 16:45] VITALS: BP 133/82; PULSE 93; RESP 20; O2SAT 99
[2023-11-30 17:10] VITALS: BP 124/79; PULSE 95; RESP 23; TEMP 36; O2SAT 94
== END 2023-11-30 17:15 | disposition home or self-care (01) ==
PROVIDERS: Emergency Provider Emergency Medicine; PCP Nurse Practitioner; Visit Provider Emergency Medicine
DX: R07.89 Other chest pain (principal); J44.1 Chronic obstructive pulmonary disease with (acute) exacerbation; J98.01 Acute bronchospasm; Z85.41 Personal history of malignant neoplasm of cervix uteri; K21.9 Gastro-esophageal reflux disease without esophagitis; Z79.899 Other long term (current) drug therapy; F41.9 Anxiety disorder, unspecified; Z90.710 Acquired absence of both cervix and uterus; Z90.49 Acquired absence of other specified parts of digestive tract; F17.210 Nicotine dependence, cigarettes, uncomplicated
CPT/HCPCS: 71046; 80048; 85025; 93005; 94640; 99283

== ENCOUNTER 2023-12-31 06:57 | Outpatient (CLI) | payer MEDICAID, SELFPAY ==
--- NOTE | 2023-12-31 07:01 | CT_ITS ---
STUDY: LOW DOSE CT LUNG CANCER SCREENING REASON FOR EXAM: Female, 53 years old. Tobacco Dependency. Patient smoked 1 pack per day for 15 years. COPD. RADIATION DOSAGE (If Supplied By Facility): CTDIvol = ( 2.01 ) mGy, DLP = ( 67.20 ) mGycm TECHNIQUE: No contrast was administered. Low dose technique was utilized (average mAS-38 and kVp 120). 1.25 mm axial source images with a slice interval of 1.25-mm were reconstructed in lung windows. 2.5 mm axial source images with a slice interval of 2.5-mm were reconstructed in lung windows. 5.0 mm axial source images with a slice interval of 5.0-mm were reconstructed in soft tissue windows. COMPARISON: None. NODULES: No suspicious nodules are seen. Emphysema: Mild degree of emphysema with a 1.5 cm bulla in the right lung apex. Scarring at the lung apices more prominent on the right side. Mild scarring at the lung bases. Endobronchial lesion: None Aorta: Atherosclerotic plaque formation. CORONARY ARTERIES: Coronary artery calcification is seen. Heart: Unremarkable Pulmonary artery: Unremarkable Mediastinal nodes: Small mediastinal lymph nodes. Other chest and abdominal findings: CT/Low Dose CT Lung Screening IMPRESSION: Lung-RADS category 2 - Continue annual screening with LDCT in 12 months. IMPORTANT NOTES FOR USE: ACR Lung-RADS Version 1.1 Assessment Categories Release Date: 2018 Category: Coded 0-4 bases on nodule(s) with highest degree of suspicion. Negative screen is defined as categories 1 and 2; a positive screen is defined as categories 3 and 4. Category 3 and 4A nodules that are unchanged on interval CT should be coded as category 2, and individuals returned to screening in 12 months. Category 4X: Category 3 or 4 nodules with additional imaging findings that increase the suspicion of lung cancer, such as spiculation, GGN that doubles in size in 1 year, enlarged lymph notes, etc. Category Modifiers: S (significant finding unrelated to lung cancer) Electronically Signed: Baltazar Greene MD at 8:38 EDT ,
== END 2023-12-31 23:59 | disposition home or self-care (01) ==
LOC: CT 06:59
PROVIDERS: PCP Nurse Practitioner; Referring Provider Internal Medicine Critical Care Medicine; Visit Provider Internal Medicine Critical Care Medicine
DX: F17.210 Nicotine dependence, cigarettes, uncomplicated (principal); J44.9 Chronic obstructive pulmonary disease, unspecified; J43.9 Emphysema, unspecified; I25.10 Atherosclerotic heart disease of native coronary artery without angina pectoris
CPT/HCPCS: 71271

== ENCOUNTER 2024-01-21 16:42 | Emergency (ER) | payer MEDICARE, MEDICAID, SELFPAY ==
[2024-01-21 16:42] VITALS: BP 143/86; PULSE 83; RESP 16; TEMP 36.3; O2SAT 96
--- NOTE | 2024-01-21 17:12 | EKG12_ITS ---
Test Reason : SYNCOPE Blood Pressure : / mmHG Vent. Rate : 073 BPM Atrial Rate : 073 BPM P-R Int : 170 ms QRS Dur : 078 ms QT Int : 386 ms P-R-T Axes : 074 052 072 degrees QTc Int : 425 ms Normal sinus rhythm Biatrial enlargement Abnormal ECG Confirmed by JOSE DE JESUS ROCHA, CHAO ([id number]), editor sound SATHYA MUHAMMAD ([id number]) on 01/23/2024 9:59:41 AM Referred By: Confirmed By:MAXIMO DELA CRUZ MD
[2024-01-21 17:40] VITALS: BMI 23.8
[2024-01-21 17:42] VITALS: BP 118/82; PULSE 79; RESP 20; O2SAT 96
--- NOTE | 2024-01-21 17:45 | RAD_ITS ---
INDICATION: chest pain EXAMINATION/TECHNIQUE: X-RAY - XR Chest 1 View COMPARISON: November 30, 2023 FINDINGS: LINES/DEVICES: None. LUNGS: No consolidation, edema or effusion. No pneumothorax. MEDIASTINUM AND CARDIOVASCULAR STRUCTURES: Cardiac silhouette not enlarged. Central airways and mediastinal contour are unremarkable. BONES AND SOFT TISSUES: Unremarkable. RAD/Chest 1 View (Portable) IMPRESSION: No radiographic evidence of acute cardiopulmonary disease. Electronically Signed: Alexandre Elizabeth DO at 18:41 EDT ,
[2024-01-21 17:49] LABS: Absolute Lymphocyte Count 2.71 X10^3/uL (0.83-4.51); Absolute Neutrophil Count 7.8 X10^3/uL (2.0-7.7); Basophil# 0.01 X10^3/uL; Basophil% 0.1 % (0-1); Hematocrit 43.9 % (37-47); Hemoglobin 14.2 g/dL (12.0-15.0); Lymphocyte # 2.71 X10^3/ul (0.83-4.51); Lymphocyte % 24.2 % (19-41); Mean Corp Hgb Conc 32.3 g/dL (32-36); Mean Corpuscular Hgb 27.8 pg (27.0-32.0); Mean Corpuscular Volume 85.9 fL (81-99); Mean Platelet Vol. 10.5 fl (6.2-12.0); Monocyte% 6.2 % (0-10); NRBC Flagged by Analyzer 0 % (0-5); Neutrophil # 7.77 X10^3/uL (2.7-7.7); Neutrophil % 69.2 % (47-70); Platelet Count 396 K/mm3 (150-450); RBC Distribution Width CV 13.9 % (11.6-14.6); RBC Distribution Width SD 43.9 fl (35.1-43.9); Red Blood Count 5.11 M/mm3 (4.2-5.4); White Blood Count 11.2 K/mm3 (4.4-11.0)
[2024-01-21 18:08] LABS: Anion Gap 4 (5-15); BUN 7 mg/dL (7-18); BUN/Creat Ratio 8.6 RATIO (10-20); Calcium,Total 9.3 mg/dL (8.5-10.1); Chloride 106 mmol/L (98-107); Creatinine, Serum 0.81 mg/dL (0.55-1.02); EST Glomerular Filtration Rate 78 mL/min (>60); Est Glom Filt Rate - Afr Amer 94 mL/min (>60); Estimated Creatinine Clearance 59.91 ml/min; Glucose 106 mg/dL (74-106); Magnesium 2.2 mg/dL (1.6-2.6); Potassium 3.5 mmol/L (3.5-5.1); Sodium Level 140 mmol/L (136-145); Troponin-I HS 4 pg/mL (3.0-54.0)
--- NOTE | 2024-01-21 18:16 | EDS_ITS ---
HPI History of Present Illness Chief Complaint: Palpitations Narrative Narrative: 53-year-old female presenting with syncopal episodes. She states she has had 6 over the last couple months. She has cardiology follow-up next month. She is currently wearing a Holter monitor. She has a scheduled tilt table test as well. Patient states that she will to start feeling shaky and if she catches that she will sit down. Otherwise she will faint. She felt like this today and has felt weak and shaky all day long. She denies chest pain. She states she is always short of breath and she has COPD. She has home nebulizers that she uses. Denies fevers or chills. [facility] Medical History Cholelithiasis Irritable bowel syndrome with constipation Hiatal hernia Snoring Hx of migraines Lung disease Internal hemorrhoids History of uterine cancer H. pylori infection GERD (gastroesophageal reflux disease) Emphysema lung Bulimia nervosa Duenas's esophagus Asthma Anxiety Anorexia nervosa COPD (chronic obstructive pulmonary disease) Home Medications ?Medication ?Instructions ?Recorded ?Last Taken ?Type aspirin 81 mg chewable tablet 81 mg PO DAILY@0800 ##30 10/14/15 Unknown Rx cyclobenzaprine 10 mg tablet 10 mg PO TID PRN Muscle Spasm 12/09/21 Unknown History dicyclomine 10 mg capsule 10 mg PO QHS 12/09/21 Unknown History ergocalciferol (vitamin D2) 1,250 1,250 mcg PO QWEEK 12/09/21 Unknown History mcg (50,000 unit) capsule guaifenesin 1,200 mg tablet, 1,200 mg PO Q12H #60 tabs 01/06/22 Unknown Rx extended release 12 hr loratadine 10 mg tablet (Claritin) 10 mg PO DAILY #90 tabs 01/06/22 Unknown Rx phenylephrine 0.25 %-cocoa butter 1 supp NH PRN PRN Hemorrhoids 02/09/22 Unknown History 88.44 % rectal suppository (Preparation H(phenyleph,cocoa buttr)) albuterol sulfate 90 mcg/actuation 1 puff inhalation Q4H PRN PRN Sob 05/16/22 Unknown Rx aerosol inhaler (Ventolin HFA) &/Or Wheezing #8.5 grams amitriptyline 25 mg tablet 25 mg PO QHS 05/16/22 Unknown History epinephrine 0.3 mg/0.3 mL 0.3 mg (0.3 mL) IM ONCE #1 ea 01/08/23 Unknown Rx injection, auto-injector (EpiPen) fluticasone fur. 200 mcg-umeclid 1 inh inhalation DAILY #3 ea 01/08/23 Unknown Rx 62.5 mcg-vilant 25 mcg inhalat.powder (Trelegy Ellipta) ipratropium 0.5 mg-albuterol 3 mg 3 ml inhalation Q4H PRN Shortness 01/08/23 Unknown Rx (2.5 mg base)/3 mL nebulization Of Breath Or Wheezing #180 mL soln benralizumab 30 mg/mL subcutaneous 30 mg subcut Q4W #1 mL 01/24/23 Unknown Rx auto-injector (Fasenra Pen) albuterol sulfate 2.5 mg/3 mL 2.5 mg (3 mL) inhalation Q6H PRN 05/03/23 Unknown Rx (0.083 %) solution for nebulization PRN Sob &/Or Wheezing #180 mL fluticasone propionate 50 1 spray BID #3 ea 11/05/23 Unknown Rx mcg/actuation nasal spray,suspension montelukast 10 mg tablet 10 mg PO DAILY #90 tabs 11/05/23 Unknown Rx prednisone 20 mg tablet 60 mg (3 x 20 mg) PO DAILY #15 11/30/23 Unknown Rx TABLETS dexlansoprazole 60 mg 60 mg PO DAILY 01/18/24 Unknown History capsule,biphase delayed release (Dexilant) diclofenac sodium 1 % topical gel 2 g topical ONCE 01/18/24 Unknown History famotidine 40 mg tablet 40 mg PO DAILY 01/18/24 Unknown History promethazine 25 mg tablet 25 mg PO TID PRN 01/18/24 Unknown History tenapanor 50 mg tablet (Ibsrela) 50 mg PO BID 01/18/24 Unknown History Allergy/AdvReac Type Severity Reaction Status Date / Time Penicillins (PCN) Allergy Anaphylaxis Verified 01/21/24 16:45 Family History Mother Hypertension Heart disease Eczema AAA (abdominal aortic aneurysm) Fibromyalgia Father Lung cancer Alcohol abuse Colon cancer Sister Hypertension Asthma Migraine headache Gout Fibromyalgia Aunt Breast cancer Aunt Breast cancer Surgical History History of hysterectomy History of appendectomy Social History (Updated 01/18/24 @ 11:02 by Rosita Gupta) Smoking Status: Current every day smoker tobacco type: cigarettes alcohol intake: current alcohol intake frequency: holidays/special occasions only substance use type: does not use EXAM Physical Exam Const Vital Signs: 01/21/24 16:42 01/21/24 17:40 01/21/24 17:42 Temperature 97.3 F L Temperature Source Temporal Pulse Rate 83 79 Respiratory Rate 16 20 H Respiratory Effort Respiratory Pattern Blood Pressure 143/86 H 118/82 H Blood Pressure Mean 105 94 Pulse Ox 96 96 Oxygen Delivery Method Room Air Room Air 01/21/24 17:52 01/21/24 18:31 01/21/24 19:00 Temperature Temperature Source Pulse Rate 80 86 Respiratory Rate 18 19 H Respiratory Effort Normal Non-Labored Respiratory Pattern Normal Blood Pressure 114/68 Blood Pressure Mean 83 Pulse Ox 96 Oxygen Delivery Method Room Air 01/21/24 20:25 Temperature Temperature Source Pulse Rate 86 Respiratory Rate 20 H Respiratory Effort Respiratory Pattern Blood Pressure 118/77 Blood Pressure Mean 90 Pulse Ox 95 Oxygen Delivery Method Room Air MDM MDM MDM Narrative Medical decision making narrative: 53-year-old female presenting with weakness and history of syncope. Differe ntial includes ACS, dysrhythmia, syncope, near syncope, dehydration, anemia, electrode abnormalities, pneumonia, COPD exacerbation. CBC will be obtained to assess white blood cell count, hemoglobin, platelets. BMP to assess renal function, electrolytes, glucose. Magnesium level be obtained. High-sensitivity troponin and EKG to assess for ischemia/dysrhythmia. Chest x-ray to rule out pneumonia. Patient is wheezing on exam so I did give her breathing treatments. CBC shows mild leukocytosis 11.2. Hemoglobin 14.2. Platelets 396. Renal function and electrolytes within normal limits. High-sensitivity troponin is 4. Magnesium 2.2. EKG interpreted by myself shows a sinus rhythm at 73 beats per minute without sign of ischemic change or ectopy. Chest x-ray interpreted by myself as no acute cardiopulmonary process. Radiologist interprets this and agrees. Patient feels improved after breathing treatment. At this point patient is comfortable being discharged home. She has appropriate follow-up. Return precautions were discussed. Impression: 1. Syncope 2. Weakness 3. COPD Lab Data Labs: Laboratory Results - last 24 hr 01/21/24 17:40 WBC 11.2 H RBC 5.11 Hgb 14.2 Hct 43.9 MCV 85.9 MCH 27.8 MCHC 32.3 RDW Std Deviation 43.9 RDW Coeff of Rui 13.9 Plt Count 396 MPV 10.5 Immature Gran % (Auto) 0.300 Neut % (Auto) 69.2 Lymph % (Auto) 24.2 [place] % (Auto) 6.2 Eos % (Auto) 0.0 Baso % (Auto) 0.1 Absolute Neuts (auto) 7.8 H Absolute Lymphs (auto) 2.71 Nucleated RBC % 0 Sodium 140 Potassium 3.5 Chloride 106 Carbon Dioxide 30.0 Anion Gap 4 L BUN 7 Creatinine 0.81 Estim Creat Clear Calc 59.91 Est GFR (MDRD) Af Amer 94 Est GFR (MDRD) Non-Af 78 BUN/Creatinine Ratio 8.6 L Glucose 106 Calcium 9.3 Magnesium 2.2 Troponin I High Sens 4 Radiography Diagnostic Testing: Clinical Impression(s) from Imaging Studies Chest X-Ray 01/21/24 17:45 IMPRESSION: No radiographic evidence of acute cardiopulmonary disease. Electronically Signed: Alexandre Elizabeth DO at 18:41 EDT Reading Location ID and State: [facility] / [place] Tel [phone], Service support , Discharge Plan Triage Chief Complaint: Palpitations ED Provider: Dejan Jolly Dx/Rx/DC Orders Instructions: ED Near-Fainting, Uncertain Cause Prescriptions: No Action cyclobenzaprine 10 mg tablet 10 mg PO TID PRN (Reason: Muscle Spasm) ergocalciferol (vitamin D2) 1,250 mcg (50,000 unit) capsule 1,250 mcg PO QWEEK dicyclomine 10 mg capsule 10 mg PO QHS guaifenesin 1,200 mg tablet extended release 12hr 1,200 mg PO Q12H Qty: 60 6RF loratadine [Claritin] 10 mg tablet 10 mg PO DAILY Qty: 90 3RF amitriptyline 25 mg tablet 25 mg PO QHS albuterol sulfate [Ventolin HFA] 90 mcg/actuation HFA aerosol inhaler 1 puff inhalation Q4H PRN PRN (Reason: Sob &/Or Wheezing) Qty: 8.5 6RF Trelegy Ellipta 200-62.5-25 mcg blister with device 1 inh inhalation DAILY Qty: 3 3RF ipratropium-albuterol 0.5 mg-3 mg(2.5 mg base)/3 mL solution for nebulization 3 ml INHALATION Q4H PRN (Reason: Shortness Of Breath Or Wheezing) Qty: 180 11RF epinephrine [EpiPen] 0.3 mg/0.3 mL auto-injector 0.3 mg IM ONCE Qty: 1 0RF Rx Instructions: as a single dose; may repeat once Fasenra Pen 30 mg/mL auto-injector 30 mg subcut Q4W Qty: 1 12RF albuterol sulfate 2.5 mg /3 mL (0.083 %) solution for nebulization 2.5 mg inhalation Q6H PRN PRN (Reason: Sob &/Or Wheezing) Qty: 180 11RF fluticasone propionate 50 mcg/actuation spray,suspension 1 spray NASAL BID Qty: 3 3RF montelukast 10 mg tablet 10 mg PO DAILY Qty: 90 3RF Ibsrela 50 mg tablet 50 mg PO BID Rx Instructions: must administer immediately before first meal of day/breakfast and dinner promethazine 25 mg tablet 25 mg PO TID PRN diclofenac sodium 1 % gel 2 g topical ONCE Rx Instructions: apply to single elbow, wrist or hand; for hand includes palm/fingers/back of hand dexlansoprazole [Dexilant] 60 mg capsule,biphase delayed releas 60 mg PO DAILY famotidine 40 mg tablet 40 mg PO DAILY aspirin 81 MG tablet,chewable 81 mg PO DAILY@0800 Qty: 30 1RF Preparation H(pe,cb) 0.25-88.44 % Suppository 1 supp NH PRN PRN (Reason: Hemorrhoids) prednisone 20 mg tablet 60 mg PO DAILY Qty: 15 0RF Primary Care Provider: LAURA RUCKER Referrals: LAURA RUCKER NP-C [Primary Care Provider] - Print Language: Serbian Disposition Disposition: Home, Self Care
[2024-01-21 18:31] VITALS: PULSE 80; RESP 18
[2024-01-21] MEDS: Albuterol 2.5 MG/3 ML VIAL.NEB. INHALATION (18:31)
[2024-01-21] MEDS: Ipratropium/Albuterol Sulfate 3 ML AMPUL.NEB INHALATION (18:31)
--- NOTE | 2024-01-21 18:47 | CPS ---
[1831] x1 Albuterol given to pt. in ER as well
[2024-01-21 19:00] VITALS: BP 114/68; PULSE 86; RESP 19; O2SAT 96
[2024-01-21 20:25] VITALS: BP 118/77; PULSE 86; RESP 20; O2SAT 95
== END 2024-01-21 20:30 | disposition home or self-care (01) ==
PROVIDERS: Emergency Provider Student in an Organized Health Care Education/Training Program; PCP Nurse Practitioner; Visit Provider Student in an Organized Health Care Education/Training Program
DX: R53.1 Weakness (principal); J44.9 Chronic obstructive pulmonary disease, unspecified; R55 Syncope and collapse; F17.200 Nicotine dependence, unspecified, uncomplicated; Z79.82 Long term (current) use of aspirin
CPT/HCPCS: 71045; 80048; 83735; 84484; 85025; 93005; 94640; 99284; A4216

== ENCOUNTER → 2024-02-13 | Outpatient (CLI) | payer MEDICARE, SELFPAY | END | disposition home or self-care (01) | PROVIDERS: PCP Nurse Practitioner; Referring Provider Nurse Practitioner Acute Care; Visit Provider Nurse Practitioner Acute Care | DX: J44.9 Chronic obstructive pulmonary disease, unspecified (principal) | CPT/HCPCS: 94060; 94667; 94726; 94729 ==

== ENCOUNTER → 2024-03-14 | Outpatient (CLI) | payer MEDICARE, SELFPAY ==
[2024-03-14 10:40] LABS: Erythrocyte Sedimentation Rate 35 mm/hr (0-30)
[2024-03-14 11:02] LABS: Vitamin B12 298 pg/mL (211-911)
[2024-03-14 11:30] LABS: ALB/GLOB Ratio 0.9 RATIO (0.9-2.4); AST(SGOT) 31 U/L (15-37); Alanine Aminotransfer ALT/SGPT 37 U/L (13-56); Albumin, Serum 3.7 g/dL (3.2-5.0); Alkaline Phosphatase 99 U/L (45-117); Anion Gap 7 (5-15); BUN 13 mg/dL (7-18); BUN/Creat Ratio 14.1 RATIO (10-20); CRP 9.05 mg/L (0.0-3.0); Calcium,Total 9.7 mg/dL (8.5-10.1); Chloride 106 mmol/L (98-107); Creatinine, Serum 0.92 mg/dL (0.55-1.02); EST Glomerular Filtration Rate 68 mL/min (>60); Est Glom Filt Rate - Afr Amer 82 mL/min (>60); Ferritin 42 ng/mL (8-252); Globulin 4.2 g/dL (2.2-4.2); Glucose 97 mg/dL (74-106); LDH 166 U/L (84-246); Protein, Total 7.9 g/dL (6.4-8.2); Sodium Level 137 mmol/L (136-145)
[2024-03-19 10:09] LABS: ACCA 27 units (0-90); ALCA 1 units (0-60); AMCA 39 units (0-100); Albumin 3.7 g/dL (2.9-4.4); Alpha-1-Globulins 0.3 g/dL (0.0-0.4); Alpha-2-Globulins 0.9 g/dL (0.4-1.0); Angiotensin Convert Enzyme 63 U/L (14-82); Cytoplasmic Ab (C-ANCA) <1:20 titer (Neg:<1:20); Endomysial Antibody IgA Negative (Negative); Gamma Globulin 1.1 g/dL (0.4-1.8); HEPATITIS B SURFACE AG Negative (Negative); Hep C Antibodies Non Reactive (Non Reactive); Hepatitis A IgM Antibody Negative (Negative); Hepatitis B Core AB IgM Negative (Negative); IMMUNOFIXATION RESULT,S Comment: (.); Immunoglobulin A 470 mg/dL (87-352); Immunoglobulin E 13 IU/mL (6-495); Immunoglobulin G 945 mg/dL (586-1602); Immunoglobulin M 129 mg/dL (26-217); PROEL- TOTAL PROTEIN 7.5 g/dL (6.0-8.5); Perinuclear Ab (P-ANCA) <1:20 titer (Neg:<1:20); gASCA 21 units (0-50); t-Transglutaminase IgA <2 U/mL (0-3)
[2024-03-29 07:09] LABS: Beef <0.10 kU/L (Class 0); Chocolate <0.10 kU/L (Class 0); Codfish <0.10 kU/L (Class 0); Corn 0.29 kU/L (Class 0/I); Egg, Whole <0.10 kU/L (Class 0); Milk (Cow) <0.10 kU/L (Class 0); Mussels <0.10 kU/L (Class 0); Peanut 0.15 kU/L (Class 0/I); Pork <0.10 kU/L (Class 0); Salmon <0.10 kU/L (Class 0); Shrimp <0.10 kU/L (Class 0); Soybean <0.10 kU/L (Class 0); Tuna <0.10 kU/L (Class 0); Vitamin D 1,25-Dihydroxy 42.9 pg/mL (24.8-81.5); Wheat 0.18 kU/L (Class 0/I)
== END | disposition home or self-care (01) ==
LOC: LAB 09:37
PROVIDERS: PCP Nurse Practitioner; Referring Provider Internal Medicine Gastroenterology; Visit Provider Internal Medicine Gastroenterology
DX: K21.9 Gastro-esophageal reflux disease without esophagitis (principal); R14.0 Abdominal distension (gaseous); K59.00 Constipation, unspecified; D64.9 Anemia, unspecified; E03.9 Hypothyroidism, unspecified
CPT/HCPCS: 36415; 80053; 80074; 82164; 82533; 82607; 82652; 82728; 82784; 82785; 83516; 83615; 84165; 84443; 85652; 86003; 86005; 86036; 86140; 86255; 86256; 86334; 86671

== ENCOUNTER 2024-04-03 05:28 | Day surgery (SDC) | payer MEDICARE, SELFPAY ==
[2024-04-03] VITALS (8 sets, daily range): BP systolic 92–119; BP diastolic 60–72; PULSE 72–82; RESP 16–18; TEMP 36.2–36.5; O2SAT 93–96; BMI 21.2
[2024-04-03] MEDS: Lactated Ringers 1,000 ML 15 ML IV (05:50)
--- NOTE | 2024-04-03 06:30 | PCM.PRE.AN2 ---
ASA Classification* ASA Classification ASA Classification: 3 Assessment & Plan Anesthesia* Anesthesia Assessment Anesthesia Assessment: Discussed sedation and/or anesthesia options, risks, benefits, and alternatives with patient/parents/legal guardian/POA. Questions invited. The patient/parents/legal guardian/POA seems to understand and agrees to proceed with anesthesia plan. Reviewed the physical assessment, medical history, allergy history and patient home medications list prior to surgery/procedure/anesthetic and documented any changes. Performed airway and anesthesia risk assessments. Anesthesia Type Anesthesia Type: MAC History Source History Obtained from:: Patient and Chart Anesthesia Focused Assessment* Temperature: 97.6 F Pulse Rate: 81 Blood Pressure: 119/65 Respiratory Rate: 16 Pulse Ox: 93 Airway Assessment Mouth opens: >3 cm Mallampati Score: II Neck Range of motion (ROM): Full ROM Focused Labs Anesthesia Preop lab: CBC WBC 11.2 K/mm3 (4.4-11.0) H 01/21/24 17:40 RBC 5.11 M/mm3 (4.2-5.4) 01/21/24 17:40 Hgb 14.2 g/dL (12.0-15.0) 01/21/24 17:40 Hct 43.9 % (37-47) 01/21/24 17:40 Plt Count 396 K/mm3 (150-450) 01/21/24 17:40 CHEMISTRY Potassium 4.0 mmol/L (3.5-5.1) 03/14/24 09:44 Sodium 137 mmol/L (136-145) 03/14/24 09:44 Magnesium 2.2 mg/dL (1.6-2.6) 01/21/24 17:40 Phosphorus 3.3 mg/dL (2.5-4.9) 10/10/15 04:50 BUN 13 mg/dL (7-18) 03/14/24 09:44 Creatinine 0.92 mg/dL (0.55-1.02) 03/14/24 09:44 Glucose 97 mg/dL (74-106) 03/14/24 09:44 TSH 3.390 uIU/mL (0.358-3.740) 03/14/24 09:44 COAG PT 15.1 SECONDS (11.7-14.9) H 05/27/20 16:45 Pre-Assessment Diagnosis/Proposed Procedure Planned Operative Procedure(s): EGD Anesthesia History 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 When Was Last Pacemaker Check QUESTION #4 FULL TEXT: You/Your Family Experience fever (hyperthermia) with Anesthesia Last Oral Intake Last Oral intake: Last Oral Intake NPO since 20:00 04/03/24 05:57 Meds taken in AM with sips of No 04/03/24 05:57 water? Meds patient instructed to take am of surgery PONV PONV - cattle shipper: PONV - cattle shipper Female Yes 03/31/24 11:54 HX of Motion Sickness No 03/31/24 11:54 HX of N/V After Surgery No 03/31/24 11:54 Non-Smoker No 03/31/24 11:54 Duration of Surgery greater No 03/31/24 11:54 than 60 minutes Number of Risk Factors 1 03/31/24 11:54 PONV Score Low Risk 03/31/24 11:54 Height & Weight Height & Weight: Anesthesia: Height & Weight Height 5 ft 3 in 04/03/24 05:57 Weight: 54.2 kg 04/03/24 05:57 Body Mass Index (BMI) 21.2 04/03/24 05:57 Respiratory Assessment Respiratory Assessment - cattle shipper: Respiratory Tract Infection Hx - cattle shipper Hx Respiratory Tract Infection No 03/31/24 11:54 STOP Sleep Apnea STOP Sleep Apnea - cattle shipper: STOP Sleep Apnea - cattle shipper Hx Hypertension No 03/31/24 11:54 Hx Sleep Apnea No 03/31/24 11:54 CPAP BIPAP Do you snore loudly (louder No 03/31/24 11:54 than talking or can be heard Do you often feel tired/ No 03/31/24 11:54 fatigued/ sleepy during daytime? Has anyone observed you stop No 03/31/24 11:54 breathing during sleep? STOP Results Negative 03/31/24 11:54 QUESTION #5 FULL TEXT : Do you snore loudly (louder than talking or can be heard through closed doors)? 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 Specify any problems Hx of Preganancy in last 3 No 03/31/24 11:54 Months Nurse Filling Out Transfusion [facility] 03/31/24 11:54 & Questions: Date: 03/31/24 03/31/24 11:54 Time: 12:00 03/31/24 11:54 Patient unable to answer at this time (ie. confused, unrespo /Reproduction History /Reproductive History - cattle shipper: /Reproductive Hx- cattle shipper Hx Now No 03/31/24 11:54 Gestational Age (in weeks): EDC: Hx Hx Para Hx Section SAB Active Medications Active Medications: Current Medications Generic Name Dose Route Start Last Admin Trade Name Freq PRN Reason Stop Dose Admin Lactated Ringer's 1,000 mls @ 15 mls/hr 04/03/24 05:45 04/03/24 05:50 IV 15 mls/hr .Q48H HARRY Administration PFSH Medical History Wears glasses Wears dentures Cancer History of IBS Heartburn Gastric reflux Smoker Shortness of breath on exertion Chronic cough Leg cramps History of echocardiogram Cholelithiasis Irritable bowel syndrome with constipation Hiatal hernia Constipation Snoring Hx of migraines Lung disease Internal hemorrhoids History of uterine cancer H. pylori infection GERD (gastroesophageal reflux disease) Emphysema lung Bulimia nervosa Duenas's esophagus Asthma Anxiety Anorexia nervosa COPD (chronic obstructive pulmonary disease) Home Medications ?Medication ?Instructions ?Recorded ?Last Taken ?Type ergocalciferol (vitamin D2) 1,250 1,250 mcg PO QWEEK 12/09/21 Unknown History mcg (50,000 unit) capsule phenylephrine 0.25 %-cocoa butter 1 supp HI PRN PRN Hemorrhoids 02/09/22 Unknown History 88.44 % rectal suppository (Preparation H(phenyleph,cocoa buttr)) amitriptyline 25 mg tablet 100 mg PO QHS 05/16/22 Unknown History epinephrine 0.3 mg/0.3 mL 0.3 mg (0.3 mL) IM ONCE #1 ea 01/08/23 Unknown Rx injection, auto-injector (EpiPen) dexlansoprazole 60 mg 60 mg PO DAILY 01/18/24 Unknown History capsule,biphase delayed release (Dexilant) diclofenac sodium 1 % topical gel 2 g topical ONCE 01/18/24 Unknown History famotidine 40 mg tablet 40 mg PO DAILY 01/18/24 Unknown History promethazine 25 mg tablet 25 mg PO TID PRN nausea and 01/18/24 Unknown History vomiting tenapanor 50 mg tablet (Ibsrela) 50 mg PO BID 01/18/24 Unknown History PEP device #1 ea 02/05/24 Unknown Rx albuterol sulfate 2.5 mg/3 mL 2.5 mg (3 mL) inhalation Q6H PRN 02/05/24 Unknown Rx (0.083 %) solution for nebulization PRN Sob &/Or Wheezing #180 mL albuterol sulfate 90 mcg/actuation 1 puff inhalation Q4H PRN PRN Sob 02/05/24 Unknown Rx aerosol inhaler (Ventolin HFA) &/Or Wheezing #8.5 grams fluticasone fur. 200 mcg-umeclid 1 inh inhalation DAILY #3 ea 02/05/24 Unknown Rx 62.5 mcg-vilant 25 mcg inhalat.powder (Trelegy Ellipta) fluticasone propionate 50 1 spray BID #3 ea 02/05/24 Unknown Rx mcg/actuation nasal spray,suspension guaifenesin 1,200 mg tablet, 1,200 mg PO Q12H #60 tabs 02/05/24 Unknown Rx extended release 12 hr ipratropium 0.5 mg-albuterol 3 mg 3 ml inhalation Q4H PRN Shortness 02/05/24 Unknown Rx (2.5 mg base)/3 mL nebulization Of Breath Or Wheezing #180 mL soln loratadine 10 mg tablet (Claritin) 10 mg PO DAILY #90 tabs 02/05/24 Unknown Rx montelukast 10 mg tablet 10 mg PO DAILY #90 tabs 02/05/24 Unknown Rx benralizumab 30 mg/mL subcutaneous 30 mg subcut Q56D 03/31/24 Unknown History auto-injector (Fasenra Pen) Allergy/AdvReac Type Severity Reaction Status Date / Time Penicillins (PCN) Allergy Anaphylaxis Verified 02/05/24 08:52 Family History Mother Hypertension Heart disease Eczema AAA (abdominal aortic aneurysm) Fibromyalgia Father Lung cancer Alcohol abuse Colon cancer Sister Hypertension Asthma Migraine headache Gout Fibromyalgia Aunt Breast cancer Aunt Breast cancer Surgical History History of cholecystectomy History of hysterectomy History of appendectomy Social History Smoking Status: Current every day smoker tobacco type: cigarettes alcohol intake: current alcohol intake frequency: holidays/special occasions only substance use type: does not use Review of Systems (Anesthesia) ROS Narrative System reviewed and no additional complaints, except as documented.
--- NOTE | 2024-04-03 06:30 | EGD_PTH ---
PATIENT: KARSON STEINBERG LOC: EN U#:[id number] AGE/SX: 53/F ROOM: RE04/03/[address]: Dr. Pelon Hamilton DO : 1970 BED: DIS: 04/03/2024 SPEC #: [id number] RECD: 04/03/24 09:17 STATUS: SHANNAN RENereida #: [id number] KATIE: 04/03/24 06:[address]: Pelon Hamilton DEPT: SURGICAL PATHOLOGY RECD BY: Rose Lucas ENTERED: 04/03/24 10:13 SP TYPE: EGD BIOPSY OT DR: LAURA RUCKER, OBSTETRICS AND GYNECOLOGY PROFESSOR-C Tissues: A - Duodenum, NOS B - Gastric mucous membrane C - Esophagus, NOS Procedures: Special Stain Group I Surgery Specimen Level IV Alcian Blue/PAS (control) HEADER OPERATION: EGD with biopsies PRE-OP DIAGNOSIS: GERD TISSUE SUBMITTED: A- Duodenum biopsy, B- Gastric antrum biopsy, C- Distal esophagus biopsy MICROSCOPIC DIAGNOSIS A. Duodenum, biopsy: No pathologic change. B. Gastric antrum, biopsy: Chronic gastritis. C. Distal esophagus, biopsy: Gastroesophageal junctional mucosa with mild chronic inflammation. 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 No evidence of dysplasia. See comment. Umesh 04/04/2024 COMMENT B. The results of immunohistochemistry for Helicobacter pylori will be reported separately ([id number]). C. Alcian blue/PAS stain with matched control is used in the evaluation of the specimen. Immunohistochemistry ([id number]) for P53 and Ki-67 will be performed and results will be reported separately. MICROSCOPIC DESCRIPTION Slides are reviewed. GROSS DESCRIPTION A. Received in fixative is one container labeled with the patient's name and designated Duodenum biopsy. The specimen consists of two irregular fragments of light lewis soft tissue that in aggregate measure 0.6 x 0.5 x 0.1 cm. The specimen is totally submitted in one cassette. B. Received in fixative is one container labeled with the patient's name and designated Gastric antrum biopsy. The specimen consists of multiple irregular fragments of light lewis soft tissue that in aggregate measure 1.5 x 0.4 x 0.1 cm. The specimen is totally submitted in one cassette. C. Received in fixative is one container labeled with the patient's name and designated Distal esophagus biopsy. The specimen consists of multiple irregular fragments of light lewis soft tissue that in aggregate measure 0.8 x 0.5 x 0.1 cm. The specimen is totally submitted in one cassette. SJ.mr 04/03/2024 TC:3 CPT:[id number]
--- NOTE | 2024-04-03 06:30 | IMM_PTH ---
PATIENT: KARSON STEINBERG LOC: EN U#:[id number] AGE/SX: 53/F ROOM: RE04/03/[address]: Dr. Pelon Hamilton DO : 1970 BED: DIS: 04/03/2024 SPEC #: [id number] RECD: 04/03/24 10:01 STATUS: SHANNAN REQ #: [id number] KATIE: 04/03/24 06:[address]: Pelon Hamilton DEPT: IMMUNOHISTOCHEMISTRY RECD BY: Destin De La Cruz ENTERED: 04/03/24 10:01 SP TYPE: IMMUNO OTHR DR: LAURA RUCKER, RATE ENGINEER-C Tissues: B - Gastric mucous membrane Procedures: H Pylori (initial) PHYSICIAN & INSTITUTION [place] [id number] SPECIMEN INFORMATION: Tissue Source: B- Gastric antrum Clinical Info: GERD Specimen Number: [id number] CPT code: 29854 METHODOLOGY: Deparaffinized sections of prefer/formalin-fixed tissue or PAP/DQ stained slides are incubated with monoclonal/polyclonal antibodies/oligonucleotide probes. Localization is made via biotin free immunoperoxidase method. Appropriate controls are performed and reacted as expected. Results on target cell population are indicated in the following table: RESULTS: ANTIBODY / CLONE RESULT Block B H Pylori (polyclonal) negative These tests were developed and their performance characteristics determined by [facility]. They may not have been cleared or approved by the U.S. Food and Drug Administration. The FDA has determined that such clearance or approval is not necessary. The above immunohistochemical/dualISH markers are ordered and reviewed by the Pathologist. INTERPRETATION: B. Gastric antrum, biopsy: Negative for Helicobacter pylori organisms. 04/04/2024
--- NOTE | 2024-04-03 06:46 | PCM.HP.BLA ---
History and Physical Date of Admission: 04/03/24 KARSON STEINBERG, is a 53 F who presents to the office today for initial consult. *BGI established 03.14.24 pt reports a long history of GERD, IBS-C, Barretts. Pt reports that about a year ago she was told she has a small hiatal hernia. Pt states that she has nearly constant HB and nothing seems to be helpful. Pt reports waking in the middle of the night throwing up due to her HB. Pt reports taking Ibsrela and that if she did not she could go months without a bm. ROS Const Constitutional: Positive for fatigue and headache(s); No fever(s) or weight change ENT ENT: Positive for headache(s); No difficulty swallowing Gastro GI: Positive for constipation, heartburn, nausea/dyspepsia and vomiting; No abdominal pain, belching, bloating, change in bowel habits, change in stool character, coffee ground emesis, cramping, diarrhea, difficulty swallowing, feeling full early, excessive flatus, incontinent of stools, Vomiting blood/hematemesis, Blood in stool, loose stools, Black,tarry stools, pain with swallowing or other Musc Musculoskeletal: Positive for back pain, restless legs and leg pain at night; No joint pain Skin Skin: No yellowing of the eye or itchy eyes Neuro Neurology: Positive for headache(s) and restless legs Psych Psychiatric: Positive for anxiety and No depression Endo Endocrine: Positive for fatigue; No weight change Aller/Imm Allergy/Immunologic: No itchy eyes Adelso/Lymp Hematologic/Lymphatic: No easy bleeding or easy bruising Exam Const General: cooperative and comfortable Nutritional Appearance: average body habitus and well nourished [facility] Head: normal to inspection Ears: hearing grossly normal bilaterally Nose: external nose normal Face and sinus: normal facial exam Mouth: oral mucosae normal Throat: posterior oropharynx normal Eyes General: appearance normal, both eyes and all related structures Neck Neck: normal visual inspection Chest Chest palpation & inspection: normal inspection of the chest and normal palpation of entire chest wall Resp Effort & Inspection: normal respiratory effort Auscultation: Bilateral: Clear to Auscultation Cardio Palpation: normal PMI Rate: regular rate Rhythm: regular rhythm GI Inspection: normal to inspection Auscultation: normal bowel sounds Percussion: normal to percussion Palpation: no hepatosplenomegaly Skin General: no rashes or lesions noted Neuro General: patient alert Extrem General: normal to inspection Psych Affect: normal affect Assessment and Plan Assessment and Plan (1) Irritable bowel syndrome: Plan: She likely has her bowel syndrome with constipation. She is on his Ken and is actually doing very well. She is experiencing some intermittent abdominal pain so we will get a gastric emptying study to determine her gastric emptying time to see if this contributing to her IBS-C symptoms. (2) GERD (gastroesophageal reflux disease): Status: Acute Plan: She is having refractory gastroesophageal reflux disease possibly secondary to gastroparesis. She does have underlying diagnosis of anorexia on nervosa and bulimia previously diagnosed a long time ago. She does smoke which contributes to a lot of bloating and CO2 retention along with she is suffering from a COPD smoker's cough which contributes to cough induced reflux. We talked about smoking cessation and some other modalities including getting a Gonzalez pH study to evaluate her refractory reflux disease. 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 (3) Bloating: Status: Acute Plan: Bloating likely secondary to small bacterial overgrowth from smoking. (4) Constipation: Status: Inactive Plan: Continue current medications for her IBS with constipation. Orders: Orders ANTONIO + Protein Elect, Serum Today K21.9 - Gastro-esophageal reflux disease without esophagitis, K59.00 - Constipation, unspecified, R14.0 - Abdominal distension (gaseous) Ferritin Today D64.9 - Anemia, unspecified, K21.9 - Gastro-esophageal reflux disease without esophagitis, K59.00 - Constipation, unspecified, R14.0 - Abdominal distension (gaseous) LDH Today K21.9 - Gastro-esophageal reflux disease without esophagitis, K59.00 - Constipation, unspecified, R14.0 - Abdominal distension (gaseous) ANCA Today K21.9 - Gastro-esophageal reflux disease without esophagitis, K59.00 - Constipation, unspecified, R14.0 - Abdominal distension (gaseous) Angiotensin Convert Enzyme Today K21.9 - Gastro-esophageal reflux disease without esophagitis, K59.00 - Constipation, unspecified, R14.0 - Abdominal distension (gaseous) Celiac Disease Profile Today K21.9 - Gastro-esophageal reflux disease without esophagitis, K59.00 - Constipation, unspecified, R14.0 - Abdominal distension (gaseous) Comprehensive Metabolic Profil Today K21.9 - Gastro-esophageal reflux disease without esophagitis, K59.00 - Constipation, unspecified, R14.0 - Abdominal distension (gaseous) CRP Today K21.9 - Gastro-esophageal reflux disease without esophagitis, K59.00 - Constipation, unspecified, R14.0 - Abdominal distension (gaseous) Erythrocyte Sed Rate Today K21.9 - Gastro-esophageal reflux disease without esophagitis, K59.00 - Constipation, unspecified, R14.0 - Abdominal distension (gaseous) Immunoglobulin E Today K21.9 - Gastro-esophageal reflux disease without esophagitis, K59.00 - Constipation, unspecified, R14.0 - Abdominal distension (gaseous) Hepatitis Panel Acute Today K21.9 - Gastro-esophageal reflux disease without esophagitis, K59.00 - Constipation, unspecified, K75.9 - Inflammatory liver disease, unspecified, R14.0 - Abdominal distension (gaseous) Gastric Emptying Study Today K21.9 - Gastro-esophageal reflux disease without esophagitis, K59.00 - Constipation, unspecified, R14.0 - Abdominal distension (gaseous) Vitamin B12 Today K21.9 - Gastro-esophageal reflux disease without esophagitis, K59.00 - Constipation, unspecified, R14.0 - Abdominal distension (gaseous) Thyroid Stim Hormone (TSH) Today E03.9 - Hypothyroidism, unspecified, K21.9 - Gastro-esophageal reflux disease without esophagitis, K59.00 - Constipation, unspecified, R14.0 - Abdominal distension (gaseous) Vitamin D 1,25-Dihydroxy Today K21.9 - Gastro-esophageal reflux disease without esophagitis, K59.00 - Constipation, unspecified, R14.0 - Abdominal distension (gaseous) ABD Complete w/ Elastography Today K21.9 - Gastro-esophageal reflux disease without esophagitis, K59.00 - Constipation, unspecified, R14.0 - Abdominal distension (gaseous) CORTISOL SERUM Today K21.9 - Gastro-esophageal reflux disease without esophagitis, K59.00 - Constipation, unspecified, R14.0 - Abdominal distension (gaseous) IBD Expanded Profile Today K21.9 - Gastro-esophageal reflux disease without esophagitis, K59.00 - Constipation, unspecified, R14.0 - Abdominal distension (gaseous) Dexa Bone Density Study Today M81.0 - Age-related osteoporosis without current pathological fracture Allergen, Food Profile 14 I have examined the patient and the H&P has been reviewed. There are no clinical changes since date of exam.
--- NOTE | 2024-04-03 07:03 | PCM.POST.ANE ---
Anesthesia: Postop Eval I Current Vital Signs Temperature: 97.4 F Pulse Rate: 82 Blood Pressure: 96/60 Respiratory Rate: 16 Pulse Ox: 96 Oxygen Delivery Method: Room Air Assessment Airway patent: Yes Spontaneous unlabored respirations: Yes Mental status: Asleep nausea: No Vomiting: No Anesthesia Complication: No Fluid Hydration Crystalloid volume administer (ml): 400 Total IV fluid infused: 400 Progress Note Anesthesia document: Postop Eval 1 completed: Yes
--- NOTE | 2024-04-03 07:04 | OP.EGD_ITS ---
Patient Name: Jane Malik Procedure Date: 04/03/2024 6:17 AM Date of : 1970 Age: 53 Procedure: Upper GI endoscopy Indications: Epigastric abdominal pain, Functional Dyspepsia, Indigestion, Heartburn, Failure to respond to medical treatment Providers: Pelon Hamilton DO Medicines: Monitored Anesthesia Care Patient Profile: This is a 53 year old female. Refer to note in patient chart for documentation of history and physical. Patient has symptoms of chronic dyspepsia, chronic heartburn and chronic nausea. Complications: No immediate complications. Procedure: Pre-Anesthesia Assessment: - Prior to the procedure, a History and Physical was performed, and patient medications and allergies were reviewed. The patient is competent. The risks and benefits of the procedure and the sedation options and risks were discussed with the patient. All questions were answered and informed consent was obtained. Patient identification and proposed procedure were verified by the physician. Mental Status Examination: normal. Airway Examination: normal oropharyngeal airway and neck mobility. Prophylactic Antibiotics: The patient does not require prophylactic antibiotics. Prior Anticoagulants: The patient has taken no anticoagulant or antiplatelet agents except for NSAID medication. ASA Grade Assessment: II - A patient with mild systemic disease. After reviewing the risks and benefits, the patient was deemed in satisfactory condition to undergo the procedure. The anesthesia plan was to use monitored anesthesia care (MAC). Immediately prior to administration of medications, the patient was re-assessed for adequacy to receive sedatives. The heart rate, respiratory rate, oxygen saturations, blood pressure, adequacy of pulmonary ventilation, and response to care were monitored throughout the procedure. The physical status of the patient was re-assessed after the procedure. After obtaining informed consent, the endoscope was passed under direct vision. Throughout the procedure, the patient's blood pressure, pulse, and oxygen saturations were monitored continuously. The Endoscope was introduced through the mouth, and advanced to the second part of duodenum. The upper GI endoscopy was accomplished without difficulty. The patient tolerated the procedure well. Scope In: 6:50:05 AM Scope Out: 6:56:32 AM Total Procedure Duration Time 0 hours 6 minutes 27 seconds Findings: LA Grade B (one or more mucosal breaks greater than 5 mm, not extending between the tops of two mucosal folds) esophagitis with no bleeding was found 37 to 40 cm from the incisors. Biopsies were taken with a cold forceps for histology. No biopsies or other specimens were collected for this exam. Patchy moderate inflammation characterized by erosions, erythema and linear erosions was found in the gastric antrum. Biopsies were taken with a cold forceps for histology. Verification of patient identification for the specimen was done. Estimated blood loss was minimal. Biopsies were taken with a cold forceps for histology. Biopsies were taken with a cold forceps for Helicobacter pylori testing. Verification of patient identification for the specimen was done. Estimated blood loss was minimal. Patchy mildly erythematous mucosa without active bleeding and with no stigmata of bleeding was found in the first portion of the duodenum. Biopsies were taken with a cold forceps for histology. Verification of patient identification for the specimen was done. Estimated blood loss was minimal. Impression: - LA Grade B erosive esophagitis with no bleeding. Biopsied. No specimens collected. - Chronic gastritis. Biopsied. - Erythematous duodenopathy. Biopsied. Recommendation: - Discharge patient to home. - Resume previous diet. - Continue present medications. - Await pathology results. Procedure Code(s): --- Professional --- 22941, Esophagogastroduodenoscopy, flexible, transoral; with biopsy, single or multiple CPT copyright 2021 [employer]. All rights reserved. The codes documented in this report are preliminary and upon physical therapy teacher review may be revised to meet current compliance requirements. Pelon Hamilton DO 04/03/2024 7:03:57 AM This report has been signed electronically. Number of Addenda: 0 Note Initiated On: 04/03/2024 6:17 AM
--- NOTE | 2024-04-03 07:05 | OP.CCLET_ITS ---
04/03/2024 Abdelrahman Lutz Re : Upper GI endoscopy procedure for Jane Almanza Belen This procedure was performed on March. My impressions and recommendations are as follows: Impressions : - LA Grade B erosive esophagitis with no bleeding. Biopsied. No specimens collected. - Chronic gastritis. Biopsied. - Erythematous duodenopathy. Biopsied. Recommendations : - Discharge patient to home. - Resume previous diet. - Continue present medications. - Await pathology results. My findings are described in the full procedure note, which is enclosed. If I can be of further assistance, please feel free to contact me at . Sincerely, Pelon Hamilton, 04/03/2024 7:03:57 AM This report has been signed electronically.
--- NOTE | 2024-04-03 07:24 | PCM.POSTANE2 ---
Anesthesia Postop Eval I Sum Postop Eval Completion status Anesthesia document: Postop Eval 1 completed: Yes Anesthesia Postop Eval I Summary Anesthesia Postop Eval I Summary: Anesthesia Postop Eval I: Assessment Summary Airway patent Yes 04/03/24 07:04 [email or web address] Spontaneous unlabored Yes 04/03/24 07:04 [email or web address] respirations Mental status Asleep 04/03/24 07:04 [email or web address] nausea No 04/03/24 07:04 [email or web address] Vomiting No 04/03/24 07:04 [email or web address] Anesthesia Postop Eval I: Fluid Summary Crystalloid volume administer 400 04/03/24 07:04 [email or web address] (ml) Colloids volume administered ( ml) Blood Product volume administered (ml) Total IV fluid infused 400 04/03/24 07:04 [email or web address] Anesthesia Postop Eval I: Summary Notes Anesthesia Complication No 04/03/24 07:04 [email or web address] Anesthesia Complication Comment: Post-operative progress note Anesthesia: Postop Eval II Evaluation Mental status: Awake Pain Level: 0 nausea: No Vomiting: No
== END 2024-04-03 07:43 | disposition home or self-care (01) ==
LOC: EN 05:29 → AC 05:31
PROVIDERS: PCP Nurse Practitioner; Referring Provider Nurse Practitioner; Visit Provider Internal Medicine Gastroenterology
PROC: 0DJ08ZZ Inspection of Upper Intestinal Tract, Via Natural or Artificial Opening Endoscopic (ICD-10-PCS; CPT 43235; principal; 2024-04-03 06:25)
DX: K29.50 Unspecified chronic gastritis without bleeding (principal); K58.9 Irritable bowel syndrome, unspecified; K30 Functional dyspepsia; K20.80 Other esophagitis without bleeding; F41.9 Anxiety disorder, unspecified; R53.83 Other fatigue; K59.00 Constipation, unspecified
CPT/HCPCS: 43239; 88305; 88312; 88342; J7120; J2405

== ENCOUNTER → 2024-04-04 | Outpatient (CLI) | payer MEDICARE, SELFPAY ==
--- NOTE | 2024-04-04 13:00 | NM_ITS ---
CLINICAL: 53-year-old female with history of abdominal bloating. SEMI-SOLID PHASE 99m Tc SULFUR COLLOID GASTRIC EMPTYING STUDY COMPARISON: None available FINDINGS: The patient was administered 1.1 mCi of 99m Tc sulfur colloid mixed with oatmeal and consumed per os. Image acquisitions in the anterior-posterior projections were obtained for 60 minutes. There is prompt visualization of the stomach. There is no gastroesophageal reflux identified. First order kinetics are maintained throughout the duration of the acquisitions. The T ? linear fit was calculated to be 60.46 minutes, (Normal: 12-56 minutes). NM/Gastric Emptying Study IMPRESSION: 1. ABNORMAL 99m Tc sulfur colloid semi-solid phase (oatmeal) gastric emptying imaging examination. A. There is mild delayed semi-solid phase gastric emptying compared to normal controls with maintained first order kinetics throughout all components of the examination. (Ellie et al, J Nucl Med Tech 38: 186, 2010). Electronically Signed: Servando Deleon DO at 15:47 EDT ,
== END | disposition home or self-care (01) ==
LOC: NM 12:58
PROVIDERS: PCP Nurse Practitioner; Referring Provider Internal Medicine Gastroenterology; Visit Provider Internal Medicine Gastroenterology
DX: K21.9 Gastro-esophageal reflux disease without esophagitis (principal); R14.0 Abdominal distension (gaseous); K59.00 Constipation, unspecified
CPT/HCPCS: 78264; A9541

== ENCOUNTER → 2024-04-05 | Outpatient (CLI) | payer MEDICARE, SELFPAY ==
--- NOTE | 2024-04-05 08:48 | US_ITS ---
STUDY: ABDOMINAL ULTRASOUND - RIGHT UPPER QUADRANT; ELASTOGRAPHY REASON FOR VISIT: Female, 53 years old. Fatty infiltration of the liver. TECHNIQUE: Ultrasound evaluation of the right upper quadrant was performed with real-time and static leonard-scale imaging. Point quantification shear wave elastography was performed ([employer]). TECHNICAL QUALITY: Adequate. COMPARISON: None. FINDINGS: Liver: The liver is enlarged and measures 18.7 cm. There is increased echogenicity consistent with fatty infiltration. The bile ducts are within normal limits. There is hepatic color flow. The direction of portal flow is hepatopetal. There is no demonstrated mass lesion. Median liver stiffness measured 5.6 kPa. Gallbladder: The patient is status post cholecystectomy. Common Bile Duct (C.B.D.): The common bile duct measures 7 mm. Pancreas: There is normal echogenicity of the visualized pancreas. There is no demonstrated pancreatic mass or cyst. Right Kidney: Normal size of the right kidney. The right kidney measures 10.1 cm x 4.6 cm x 3.5 cm. Normal renal cortex. The right cortex measures 1.1 cm. There is no demonstrated renal mass or cyst. There is no right hydronephrosis. US/ABD Complete w/ Elastography IMPRESSION: 1. Liver stiffness measures 5.6 kPa compatible with F0-F1 (Normal to mild liver fibrosis) Metavir score. Electronically Signed: Baltazar Greene MD at 10:38 EDT ,
== END | disposition home or self-care (01) ==
PROVIDERS: PCP Nurse Practitioner; Referring Provider Internal Medicine Gastroenterology; Visit Provider Internal Medicine Gastroenterology
DX: K21.9 Gastro-esophageal reflux disease without esophagitis (principal); R14.0 Abdominal distension (gaseous); K59.00 Constipation, unspecified
CPT/HCPCS: 76700; 76981

== ENCOUNTER → 2024-04-09 | Outpatient (CLI) | payer MEDICARE, SELFPAY ==
--- NOTE | 2024-04-09 09:44 | NM_ITS ---
CLINICAL: 53-year-old female with history of abdominal bloating status post cholecystectomy. RADIONUCLIDE HEPATOBILIARY SCINTIGRAPHY COMPARISON: Abdominal ultrasound report 04/05/2024 FINDINGS: Following the intravenous administration of 5.3 mCi of 99m Tc Mebrofenin, hepatobiliary images reveal: 1. Relatively prompt and homogeneous radiopharmaceutical concentration is noted by a normal sized liver. No parenchymal defects are identified. 2. Gallbladder activity is not identified during 60 minutes of sequential imaging commensurate with known history of prior cholecystectomy. 3. Small intestinal tract is observed at 48 minutes post radiopharmaceutical administration. 4. Washout of the radiopharmaceutical by the hepatic parenchyma appears qualitatively normal. NM/Hepatobilliary Imaging IMPRESSION: 1. ABNORMAL 99m Tc Mebrofenin hepatobiliary imaging examination. A. Nonvisualization of the gallbladder is consistent with prior cholecystectomy. B. Further evaluation of this individual may be undertaken utilizing pre-examination CCK quantitative hepatobiliary scintigraphy to exclude the presence of post cholecystectomy syndrome-Sphincter of Oddi dysfunction. (Ifeanyi et al, J Nucl Med 33: 1216, 1992). Electronically Signed: Servando Deleon DO at 11:58 EDT ,
== END | disposition home or self-care (01) ==
PROVIDERS: PCP Nurse Practitioner; Referring Provider Internal Medicine Gastroenterology; Visit Provider Internal Medicine Gastroenterology
DX: R14.0 Abdominal distension (gaseous) (principal); K21.9 Gastro-esophageal reflux disease without esophagitis; K59.00 Constipation, unspecified
CPT/HCPCS: 78226; A9537

== ENCOUNTER → 2024-04-16 | Outpatient (CLI) | payer MEDICARE, SELFPAY ==
[2024-04-16 11:25] LABS: Amylase 26 U/L (25-115); Lipase 24 U/L (13-75)
== END | disposition home or self-care (01) ==
LOC: LAB 10:38
PROVIDERS: PCP Nurse Practitioner
DX: K83.4 Spasm of sphincter of Oddi (principal); K29.50 Unspecified chronic gastritis without bleeding
CPT/HCPCS: 36415; 82150; 83690

== ENCOUNTER → 2024-05-01 | Outpatient (CLI) | payer MEDICARE, SELFPAY ==
--- NOTE | 2024-05-01 08:58 | BD_ITS ---
STUDY: DUAL ENERGY X-RAY ABSORPTIOMETRY / DXA REASON FOR EXAM: Female, 53 years old. Osteoporosis TECHNIQUE: Bone Mineral Density (BMD) measurements of lumbar spine and bilateral hips were obtained. COMPARISON: None. FINDINGS: Lumbar Spine (L1-L4): g/cm2 (1.025) / T-score (-0.2) / Z-score (0.8) Findings are suggestive of normal bone density with a low fracture risk. Left Femur Total: g/cm2 (0.802) / T-score (-1.2) / Z-score (-0.5) Left Femoral Neck: g/cm2 (0.597) / T-score (-2.3) / Z-score (-1.3) Right Femur Total: g/cm2 (0.825) / T-score (-1.0) / Z-score (-0.3) Right Femoral Neck: g/cm2 (0.637) / T-score (-1.9) / Z-score (-0.9) BD/Dexa Bone Density Study IMPRESSION: The patient is considered osteopenic as outlined below according to World Armin Organization (WHO) criteria with a high fracture risk. Reference Information: The T-score is the number of standard deviations above or below the standard which is normal for young adults at their peak bone mineral density. The World Health Organization (WHO) interprets the T-scores as follows: Above -1 Normal bone density Between -1 and -2.5 Osteopenia Equal to / or below -2.5 Osteoporosis As a practical clinical guideline, osteopenia may be graded as follows: Mild -1 through -1.5 Moderate -1.6 through -2.0 Severe -2.1 through -2.4 The Z-score is the number of standard deviations above or below age-matched controls. A Z-score of less than -1.5 would be considered abnormal. References: 1. NIH Osteoporosis and Related Bone Diseases www osteo.org 2. International Society for Clinical Densitometry www iscd.org 3. National Osteoporosis Foundation www nof.org Electronically Signed: Baltazar Greene MD at 15:07 EDT ,
== END | disposition home or self-care (01) ==
LOC: OPBD 08:45
PROVIDERS: PCP Nurse Practitioner; Referring Provider Internal Medicine Gastroenterology; Visit Provider Internal Medicine Gastroenterology
DX: M81.0 Age-related osteoporosis without current pathological fracture (principal)
CPT/HCPCS: 77080

== ENCOUNTER → 2024-08-26 | Outpatient (CLI) | payer MEDICARE, SELFPAY | END | disposition home or self-care (01) | LOC: SL 09:46 | PROVIDERS: PCP Nurse Practitioner; Referring Provider Nurse Practitioner Acute Care; Visit Provider Nurse Practitioner Acute Care | DX: R09.02 Hypoxemia (principal) | CPT/HCPCS: 94762 ==

== ENCOUNTER → 2025-01-01 | Outpatient (CLI) | payer MEDICARE, SELFPAY ==
--- NOTE | 2025-01-01 13:51 | CT_ITS ---
PROCEDURE: LOW DOSE CT LUNG SCREENING 01/01/2025 REASON FOR EXAM: SMOKER TECHNIQUE: LOW DOSE CT LUNG SCREENING Coronal and Sagittal reconstruction series were provided. One or more dose reduction techniques were used (e.g., Automated exposure control, adjustment of the mA and/or kV according to patient size, use of iterative reconstruction technique). REFERENCE LINK: [employer]. Lung-RADS RADIATION DOSE SUMMARY: CTDlvol: 2 mGy DLP: 66 mGycm COMPARISON: 12/31/2023 FINDINGS: Central airways are patent. Bronchial wall thickening. Biapical scarring, some densities have a nodular appearance but are stable. Multifocal, bilateral areas of ground-glass airspace disease, some of which was present previously, but interval progression of infectious/inflammatory process. No effusion or pneumothorax. On the left, multiple micro nodules. On the right, multiple micro nodules. Multiple pleural-based nodular densities, stable, favoring pleural tags. Multiple intrapulmonary lymph nodes. Mild bilateral axillary adenopathy, usually reactive in etiology. Unremarkable base of neck. Normal heart size. No acute vascular pathology on noncontrast scanning. Mild mediastinal adenopathy, usually reactive in etiology. Thoracic spine scoliosis and degeneration. No acute chest wall findings. No acute upper abdominal findings. Status post cholecystectomy. CT/Low Dose CT Lung Screening IMPRESSION: Bilateral micro nodules. Lung-RADS Category: 2 Other Significant Findings: Worsening scattered bilateral nonspecific ground-gl ass airspace disease, most consistent with a chronic infectious/inflammatory process. Advise correlation. Follow up imagin g as clinically determined. Reading Location: [place] [id number]
== END | disposition home or self-care (01) ==
LOC: CT 13:40
PROVIDERS: PCP Nurse Practitioner; Referring Provider Nurse Practitioner Acute Care; Visit Provider Nurse Practitioner Acute Care
DX: Z12.2 Encounter for screening for malignant neoplasm of respiratory organs (principal); F17.210 Nicotine dependence, cigarettes, uncomplicated
CPT/HCPCS: 71271

== ENCOUNTER 2025-02-24 05:24 | Day surgery (SDC) | payer MEDICARE, SELFPAY ==
--- NOTE | 2025-02-23 15:09 | PAT.ANE_ITS ---
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 When Was Last Pacemaker Check QUESTION #4 FULL TEXT: You/Your Family Experience fever (hyperthermia) with Anesthesia Last Oral Intake Last Oral intake: Last Oral Intake NPO since Meds taken in AM with sips of water? 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 Female Yes 02/23/25 11:50 HX of Motion Sickness No 02/23/25 11:50 HX of N/V After Surgery No 02/23/25 11:50 Non-Smoker No 02/23/25 11:50 Duration of Surgery greater No 02/23/25 11:50 than 60 minutes Number of Risk Factors 1 02/23/25 11:50 PONV Score Low Risk 02/23/25 11:50 Height & Weight Height & Weight: Anesthesia: Height & Weight Height 5 ft 1 in 02/06/25 09:08 Respiratory Assessment Respiratory Assessment - airline ticket agent: Respiratory Tract Infection Hx - airline ticket agent Hx Respiratory Tract Infection No 02/23/25 11:50 STOP Sleep Apnea STOP Sleep Apnea - airline ticket agent: STOP Sleep Apnea - airline ticket agent Hx Hypertension No 02/23/25 11:50 Hx Sleep Apnea No: 4L O2 @ NIGHT VIA NC 02/23/25 11:50 CPAP BIPAP Do you snore loudly (louder No 02/23/25 11:50 than talking or can be heard Do you often feel tired/ No 02/23/25 11:50 fatigued/ sleepy during daytime? Has anyone observed you stop No 02/23/25 11:50 breathing during sleep? STOP Results Negative 02/23/25 11:50 QUESTION #5 FULL TEXT : Do you snore loudly (louder than talking or can be heard through closed doors)? 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 Specify any problems Hx of Preganancy in last 3 N/A 02/23/25 11:50 Months Nurse Filling Out Transfusion NBUCHER 02/23/25 11:50 & Questions: Date: 02/23/25 02/23/25 11:50 Time: 11:51 02/23/25 11:50 Patient unable to answer at this time (ie. confused, unrespo /Reproduction History /Reproductive History - airline ticket agent: /Reproductive Hx- airline ticket agent Hx Now No 02/23/25 11:50 Gestational Age (in weeks): EDC: Hx Hx Para Hx Section SAB No 02/23/25 11:50 PFSH Medical History (Updated 02/23/25 @ 11:55 by Yesica Stauffer) High cholesterol Migraine headache On home oxygen therapy Wears glasses Wears dentures Cancer History of IBS Heartburn Gastric reflux Smoker Shortness of breath on exertion Chronic cough Leg cramps History of echocardiogram Cholelithiasis Irritable bowel syndrome with constipation Hiatal hernia Constipation Snoring Hx of migraines Lung disease Internal hemorrhoids History of uterine cancer H. pylori infection GERD (gastroesophageal reflux disease) Emphysema lung Bulimia nervosa Duenas's esophagus Asthma Anxiety Anorexia nervosa COPD (chronic obstructive pulmonary disease) Home Medications ?Medication ?Instructions ?Recorded ?Last Taken ?Type ergocalciferol (vitamin D2) 1,250 1,250 mcg PO QWEEK 0 12/09/21 Unknown History mcg (50,000 unit) capsule phenylephrine 0.25 %-cocoa butter 1 supp AL PRN PRN He morrhoids 02/09/22 Unknown History 88.44 % rectal suppository (Preparation H(phenyleph,cocoa buttr)) epinephrine 0.3 mg/0.3 mL 0.3 mg (0.3 mL) IM ONCE #1 e a 01/08/23 Unknown Rx injection, auto-injector (EpiPen) diclofenac sodium 1 % topical gel 2 g topical ONCE PRN rash 01/18/24 Unknown History promethazine 25 mg tablet 25 mg PO TID PRN nausea and 01/18/24 Unknown History vomiting PEP device #1 ea 02/05/24 Unknown Rx albuterol sulfate 2.5 mg/3 mL 2.5 mg (3 mL) inhalation Q6H PRN 02/05/24 Unknown Rx (0.083 %) solution for nebulization PRN Sob &/Or Wheez ing #180 mL fluticasone propionate 50 1 spray BID #3 ea 02/05/24 U nknown Rx mcg/actuation nasal spray,suspension dexlansoprazole 30 mg 30 mg PO BID #60 caps Unknown Rx capsule,biphase delayed release famotidine 20 mg tablet 20 mg PO BID PRN breakthroug h 04/14/24 Unknown Rx heartburn #60 tabs dicyclomine 20 mg tablet 20 mg PO BID #60 tabs Unknown Rx atorvastatin 20 mg tablet 20 mg PO QDAY 05/15/24 Unkno wn History metoclopramide HCl 10 mg tablet 10 mg PO QAC #90 tabs 06/03/24 Unknown Rx tenapanor 50 mg tablet (Ibsrela) 50 mg PO BID #180 tab s 08/28/24 Unknown Rx Lactobacillus acidophilus 2 2,000 mmu cells PO BID #60 tabs 01/06/25 Unknown Rx billion cell tablet albuterol sulfate 90 mcg/actuation 1 puff inhalation Q 4H PRN PRN Sob 01/14/25 Unknown Rx aerosol inhaler (Ventolin HFA) &/Or Wheezing #8.5 gram s amitriptyline 150 mg tablet 150 mg PO QHS 01/14/25 Unk nown History doxycycline hyclate 100 mg capsule 100 mg PO BID #14 c aps 01/14/25 Unknown Rx dupilumab 300 mg/2 mL subcutaneous 300 mg (2 mL) subcu t Q2W #4 mL 01/14/25 Unknown Rx pen injector (Dupixent) famotidine 40 mg tablet 40 mg PO QDAY PRN GERD 01/14 Unknown History fluticasone fur. 200 mcg-umeclid 1 inh inhalation JOSELUIS Y #3 ea 01/14/25 Unknown Rx 62.5 mcg-vilant 25 mcg inhalat.powder (Trelegy Ellipta) guaifenesin 1,200 mg tablet, 1,200 mg PO Q12H #60 tabs 01/14/25 Unknown Rx extended release 12 hr ipratropium 0.5 mg-albuterol 3 mg 3 ml inhalation Q4H PRN Shortness 01/14/25 Unknown Rx (2.5 mg base)/3 mL nebulization Of Breath Or Wheezing #180 mL soln loratadine 10 mg tablet (Claritin) 10 mg PO DAILY #90 tabs 01/14/25 Unknown Rx meloxicam 15 mg tablet 15 mg PO QDAY 01/14/25 Unkno wn History montelukast 10 mg tablet 10 mg PO DAILY #90 tabs 04/02 Unknown Rx rizatriptan 10 mg tablet 10 mg PO Q2H PRN migraine he adache 01/14/25 Unknown History topiramate 25 mg tablet 25 mg PO QHS 01/14/25 Unknow n History sucralfate 100 mg/mL oral 10 ml PO BID 30 days #600 mL 02/13/25 Unknown Rx suspension OXYGEN - Supplemental ([facility] 02/23/25 Unknown History INFORMATIONAL USE ONLY) Allergy/AdvReac Type Severity Reaction Status Date / Time Penicillins (PCN) Allergy Anaphylaxis Verified 02/23/25 11:45 Family History Mother Hypertension Heart disease Eczema AAA (abdominal aortic aneurysm) Fibromyalgia Father Lung cancer Alcohol abuse Colon cancer Sister Hypertension Asthma Migraine headache Gout Fibromyalgia Aunt Breast cancer Aunt Breast cancer Surgical History (Updated 02/23/25 @ 11:55 by Yesica Stauffer) History of colonoscopy History of esophagogastroduodenoscopy (EGD) History of cholecystectomy History of hysterectomy History of appendectomy Social History Smoking Status: Current every day smoker tobacco type: cigarettes alcohol intake: current alcohol intake frequency: holidays/special occasions only substance use type: does not use Audit: Pertinent Findings Pertinent Findings EKG Perinent findings: January 21, 2024. Normal sinus rhythm. Biatrial enlargement. Pulmonary function results/spirometer pertinent findings: November 10, 2022. Moderate restrictive ventilatory impairment with preserved diffusing capacity. There was a partial response to aerosolized bronchodilators. Recommendation Anesthesia Recommendation Anesthesia recommendation: OPTIMIZED for anesthesia
[2025-02-24] VITALS (7 sets, daily range): BP systolic 89–126; BP diastolic 61–77; PULSE 61–72; RESP 16; TEMP 36.1–36.2; O2SAT 95–99; BMI 22.2
--- OUTSIDE RECORDS SUMMARY | 2025-02-24 05:29 | XMS RPT_ITS | CCD ---
Author Organization [facility] Care Team Providers Care Agency Trainer Name Role Phone Amanda Wallace MD Primary Care Provider Dr. Amanda Wallace Primary Care Provider Dr. Amanda Wallace Referring Provider Dr. Efren Ruiz Attending Provider Dr. Alex Graham Attending Provider Dr. Efren Ruiz Referring Provider Annie POT ANNEALER, POT ANNEALER-C Mickey Attending Provider Annie POT ANNEALER, POT ANNEALER-C Mickey Referring Provider Amanda Wallace MD Primary Care Provider Dr. Amanda Wallace Primary Care Provider Amanda Wallace MD Primary Care Provider Dr. Amanda Wallace Primary Care Provider Annie POT ANNEALER, POT ANNEALER-C Mickey Attending Provider Annie POT ANNEALER, POT ANNEALER-C Mickey Referring Provider Annie POT ANNEALER, POT ANNEALER-C Mickey Other Provider BELEN, POT ANNEALER-C LAURA Primary Care Provider Dr. Efren Ruiz Attending Provider Annie POT ANNEALER, POT ANNEALER-C Mickey Referring Provider Dr. Amanda Wallace Referring Provider Amanda Wallace MD Primary Care Provider ROSELYN TOBAR Referring Unavailable CHARLES RIGGS Attending Unavailable GANTA, AMANDA Primary Care Unavailable KALDEEDEE, ROSELYN Referring Unavailable GANHORACIO, AMANDA Primary Care Unavailable KHANH MATA Attending Unavailable OLDER, LAURA Primary Care Unavailable Older HOUSESMITH.DUMPER, Laura Primary Care Provider Ginny ROCHA, Amanda Primary Care Provider Fauzia Pendleton Primary Care Provider Unavaila chino Wallace MD, Amanda Primary Care Provider Gil HOUSESMITH.DUMPER, Oksana Delacruz Primary Care Provider Unavailable Pcp HOUSESMITH, No Primary Care Provider Unavailabl e Ginny ROCHA, Amanda Primary Care Provider Ginny ROCHA, Amanda Primary Care Provider Older HOUSESMITH.DUMPER, Laura Primary Care Provider OLDER, POT ANNEALER-C LAURA Primary Care Provider OLDER, POT ANNEALER-C LAURA Referring Provider Valencia POT ANNEALER, POT ANNEALER-C Mickey Attending Provider Dr. Efren Ruiz Attending Provider Dr. Efren Ruiz Referring Provider Dr. Efren Ruiz Other Provider Dr. Alex Graham Attending Provider OLDER, POT ANNEALER-C LAURA Primary Care Provider OLDER, POT ANNEALER-C LAURA Referring Provider Valencia POT ANNEALER, POT ANNEALER-C Mickey Attending Provider Dr. Efren Ruiz Attending Provider Dr. Efren Ruiz Referring Provider Dr. Efren Ruiz Other Provider Dr. Alex Graham Attending Provider Older HOUSESMITH.DUMPER, Laura Primary Care Provider OLDER, POT ANNEALER-C LAURA Primary Care Provider OLDER, POT ANNEALER-C LAURA Referring Provider Amanda Wallace MD Primary Care Provider Older HOUSESMITH.KACY, Laura Primary Care Provider Amanda Wallace MD Primary Care Provider GANTA, AMANDA Primary Care Unavailable SELF Referring Unavailable GANTA, AMANDA Primary Care Unavailable Allison Montoya Admitting Unavailable Allison Montoya Attending Unavailable Older HOUSESMITH.KACY, Laura Primary Care Provider Amanda Wallace MD Primary Care Provider Amanda Wallace MD Primary Care Provider Denbow PA-C, Zaida L Unavailable Older HOUSESMITH.DUMPER, Laura Unavailable Bogner PA-C, Vilma Unavailable Denbow PA-C, Zaida L Unavailable Bogner PA-C, Vilma Unavailable OLDER POT ANNEALER-C, LAURA Primary Care Provider OLDER POT ANNEALER-C, LAURA Referring Provider Dr. Pelon Hamilton DO Attending Provider Annie POT ANNEALER-C, Mickey Attending Provider Annie POT ANNEALER-C, Mickey Referring Provider Rita POT ANNEALER-CLorin Attending Provider OLDER POT ANNEALER-C, LAURA Primary Care Provider OLDER POT ANNEALER-C, LAURA Referring Provider Dr. Pelon Hamilton DO Attending Provider SHAINATA, AMANDA Primary Care Unavailable OLDER, LAURA Referring Unavailable MICKEY LÓPEZ Attending Unavailable GANTA, AMANDA Referring Unavailable GANTA, AMANDA Primary Care Unavailable OLDER, LAURA Attending Unavailable OLGA CELIS Attending Unavailable GANTA, AMANDA Primary Care Unavailable SELF Referring Unavailable GANTA, AMANDA Primary Care Unavailable GANTA, AMANDA Primary Care Unavailable MICKEY LÓPEZ Referring Unavailable OLDER, LAURA Referring Unavailable GANTA, AMANDA Primary Care Unavailable OLDER, LAURA Referring Unavailable GANTA, AMANDA Primary Care Unavailable GANTA, AMANDA Primary Care Unavailable OLDER, LAURA Attending Unavailable GANTA, AMANDA Primary Care Unavailable HABERNA, DEEP Attending Unavailable YULI, CARIN L Referring Unavailable GANTA, AMANDA Primary Care Unavailable YULI, CARIN L Referring Unavailable OLDER, LAURA Attending Unavailable OLDER, LAURA Referring Unavailable GANTA, AMANDA Primary Care Unavailable HEATH MAR Attending Unavailable GANTA, AMANDA Primary Care Unavailable OLDER, LAURA Attending Unavailable GANTA, AMANDA Primary Care Unavailable OLDER, LAURA Attending Unavailable OLDER, LAURA Referring Unavailable GANTA, AMANDA Primary Care Unavailable GANTA, AMANDA Primary Care Unavailable OLDER, LAURA Referring Unavailable GANTA, AMANDA Primary Care Unavailable OLDER, LAURA Attending Unavailable GANTA, AMANDA Primary Care Unavailable YULI, CARIN L Referring Unavailable GANTA, AMANDA Primary Care Unavailable OLDER, LAURA Referring Unavailable GANTA, AMANDA Primary Care Unavailable OLDER, LAURA Attending Unavailable JERRY HUSTON Attending Unavailable GANTA, AMANDA Primary Care Unavailable HEATH MAR Referring Unavailable GANTA, AMANDA Primary Care Unavailable OLDER, LAURA Attending Unavailable GANTA, AMANDA Primary Care Unavailable OLDER, LAURA Attending Unavailable GANTA, AMANDA Primary Care Unavailable KEYLA, DEEP Referring Unavailable BOUCHRA, MELANIE T Attending Unavailable BOUCHRA, MELANIE T Attending Unavailable GANTA, AMANDA Primary Care Unavailable BOUCHRA, MELANIE T Referring Unavailable GANTA, AMANDA Primary Care Unavailable BOUCHRA, MELANIE T Referring Unavailable GANTA, AMANDA Primary Care Unavailable OLDER, LAURA Attending Unavailable GANTA, AMANDA Primary Care Unavailable Friend, Pelon Referring Unavailable OLDER, LAURA Primary Care Unavailable Friend, Pelon Attending Unavailable Friend, Pelon Referring Unavailable OLDER, LAURA Primary Care Unavailable Friend, Pelon Attending Unavailable Friend, Pelon Attending Unavailable Friend, Pelon Referring Unavailable OLDER, LAURA Primary Care Unavailable OLDER, LAURA Referring Unavailable Katty Maurer Attending Unavailable OLDER, LAURA Primary Care Unavailable Valencia POT ANNEALER, Mickey Attending Unavailable OLDER, LAURA Primary Care Unavailable Valencia POT ANNEALER, Mickey Referring Unavailable Friend, Pelon Referring Unavailable OLDER, LAURA Primary Care Unavailable Friend, Pelon Attending Unavailable OLDER, LAURA Primary Care Unavailable OLDER, LAURA Referring Unavailable Friend, Pelon Attending Unavailable OLDER, LAURA Primary Care Unavailable Valencia POT ANNEALER, Mickey Referring Unavailable Valencia POT ANNEALER, Mickey Attending Unavailable OLDER, LAURA Referring Unavailable OLDER, LAURA Primary Care Unavailable Valencia POT ANNEALER, Mickey Attending Unavailable Killian KEENE, Jas Attending Unavailable OLDER, LAURA Referring Unavailable OLDER, LAURA Primary Care Unavailable Friend, Pelon Attending Unavailable Friend, Pelon Referring Unavailable OLDER, LAURA Primary Care Unavailable Maurer, Katty Referring Unavailable Maurer, Katty Attending Unavailable OLDER, LAURA Primary Care Unavailable OLDER, LAURA Primary Care Unavailable OLDER, LAURA Referring Unavailable Friend, Pelon Attending Unavailable OLDER, LAURA Referring Unavailable OLDER, LAURA Primary Care Unavailable Valencia POT ANNEALER, Mickey Attending Unavailable Friend, Pelon Attending Unavailable OLDER, LAURA Primary Care Unavailable OLDER, LAURA Referring Unavailable Lorin Salinas Attending Unavailable OLDER, LAURA Primary Care Unavailable OLDER, LAURA Referring Unavailable Lorin Salinas Attending Unavailable OLDER, LAURA Primary Care Unavailable OLDER, LAURA Referring Unavailable Friend, Pelon Attending Unavailable OLDER, LAURA Primary Care Unavailable OLDER, LAURA Referring Unavailable Friend, Pelon Attending Unavailable Friend, Pelon Consulting Unavailable OLDER, LAURA Referring Unavailable OLDER, LAURA Primary Care Unavailable Friend, Pelon Attending Unavailable OLDER, LAURA Primary Care Unavailable OLDER, LAURA Referring Unavailable OLDER, LAURA Primary Care Unavailable OLDER, LAURA Referring Unavailable Friend, Pelon Attending Unavailable Allergies Allergy Classification Reported Allergen(s) Allergy Type Date of Onset Reaction(s) Facility (20 sources) Penicillins; Translations: [PENICILLINS] Drug Allergy 06-11-2006 Anaphylaxis [facility] Work Phone: (20 sources) Penicillins Drug Allergy 06-11-2006 Anaphylaxis [facility] Work Phone: (12 sources) Penicillins Allergy to substance 02-09-2022 Anaphylaxis [facility] (20 sources) Penicillins Drug Allergy 06-11-2006 Anaphylaxis [facility] Work Phone: (1 source) Penicillins Drug allergy (disorder) 02-23-2025 [facility] Repository Medications Current Medications Medication Drug Class(es) Dates Sig (Normalized) Sig (Original) amitriptyline hydrochloride 150 mg oral tablet (20 sources) Tricyclic Antidepressant Start: 09-08-2024 take 1 tablet by mouth at bedtime Amitriptyline 150 mg tablet Active 150 mg PO AT BEDTIME January 14, 2025 12:00am Start: 08-10-2022 End: 09-08-2024 take 1 tablet by mouth once daily at bedtime amitriptyline (ELAVIL) 100 mg tablet take 1 tablet by mouth once daily at bedtime 90 tablet 3 09/28/2023 09/08/2024 Discontinued Start: 07-13-2022 End: 08-10-2022 take 1 tablet by mouth once daily at bedtime amitriptyline (ELAVIL) 75 mg tablet Take 1 tablet by mouth daily at bedtime. 90 tablet 3 07/13/2022 08/10/2022 Discontinued Start: 05-17-2022 End: 07-13-2022 take 1 tablet by mouth once daily at bedtime amitriptyline (ELAVIL) 50 mg tablet Take 1 tablet by mouth daily at bedtime. 90 tablet 1 05/17/2022 07/13/2022 Discontinued Start: 05-16-2022 End: 01-14-2025 take 4 tablets by mouth at bedtime Amitriptyline 25 mg tablet Discontinued 100 mg PO AT BEDTIME May 16, 2022 1:00am January 14, 2025 8:07am Start: 05-16-2022 take 25 mg by mouth at bedtime Amitriptyline Active 25 MG PO AT BEDTIME May 16, 2022 12:00am Start: 03-29-2022 take 1 tablet by freddy th once daily at bedtime amitriptyline (ELAVIL) 25 mg tablet Take 1 tablet by mouth daily at bedtime. 30 tablet 1 03/29/2022 Active Start: 03-16-2022 End: 03-29-2022 take 1 tablet by mouth once daily at bedtime amitriptyline (ELAVIL) 10 mg tablet Take 1 tablet by mouth daily at bedtime. 30 tablet 1 03/16/2022 03/29/2022 Discontinued Comment on above: Take 1 tablet by freddy th daily at bedtime. take 1 tablet by freddy th once daily at bedtime atorvastatin 20 mg oral tablet (20 sources) HMG-CoA Reductase Inhibitor Start: 04-07-20 End: 04-07-20 take 1 tablet by mouth once daily atorvastatin (LIPITOR) 20 mg tablet Take 1 tablet by mouth once daily. 30 tablet 11 04/07/2024 04/07/2025 Active azithromycin 250 mg oral tablet (18 sources) Macrolide Antimicrobial Start: 11-21-19 End: 11-26-19 take 2 tablets by mouth once daily, then take 1 tablet by mouth once daily azithromycin (ZITHROMAX) 250 mg tablet Take 2 tablets by mouth once daily for 1 day, THEN 1 tablet once daily for 4 days. 6 tablet 11/20/2024 11/25/2024 Active Start: 08-08-2024 End: 01-14-2025 take 2-5 tablets by mouth once daily Azithromycin 250 mg tablet Discontinued 0 PO .COMPLEX 6 0 August 08, 2024 1:00am January 14, 2025 8:52am take 500 mg today (day 1), then 250 mg for 4 days (days 2-5) PO Start: 08-23-2023 End: 11-05-2023 take 2-5 tablets by mouth once daily Azithromycin 250 mg tablet Discontinued 0 PO .COMPLEX 6 0 August 23, 2023 1:00am November 05, 2023 9:49am take 500 mg today (day 1), then 250 mg for 4 days (days 2-5) PO Start: 08-23-2023 Azithromycin A ctive 0 PO .COMPLEX 6 August 23, 2023 12:00am take 500 mg today (day 1), then 250 mg for 4 days (days 2-5) PO Start: 11-23-2021 End: 11-28-2021 azithromycin (ZITHROMAX Z-PA K) 250 mg tablet Take 2 tablets day one, then, 1 tablet daily until gone. 6 tablet 0 11/23/2021 11/28/2021 Active Comment on above: Take 2 tablets day o ne, then, 1 tablet daily until gone. 1 ml benralizumab 30 mg/ml auto-injector (20 sources) Interleukin-5 Receptor alpha-directed Cytolytic Antibody Start: 02-14-2023 End: 01-14-2025 FASENRA PEN 30 mg/mL auto-injector 02/14/2023 Active Start: 02-14-2023 End: 05-15-2024 Benralizumab (Fasenra Pen) 3 0 mg/mL auto-injector Discontinued 30 mg SC Q56D March 31, 2024 12:00am May 15, 2024 8:55am Start: 01-24-2023 End: 03-31-2024 Benralizumab (Fasenra Pen) 3 0 mg/mL auto-injector Discontinued 30 mg SC every 4 weeks 1 January 24, 2023 12:00am March 31, 2024 11:54am bisacodyl 10 mg rectal suppository (20 sources) Stimulant Laxative Start: 11-29-2022 bisacodyl ( DULCOLAX, BISACODYL,) 10 mg supp 1 Suppository by RECTAL route once daily as needed for constipation. 5 Suppository 1 11/29/2022 Active Comment on above: 1 Suppository by REC AILEEN route once daily as needed for constipation. cocoa butter 0.884 mg/mg / phenylephrine hydrochloride 0.0025 mg/mg rectal suppository (20 sources) alpha-1 Adrenergic Agonist Start: 02-09-2022 Phenylephrine-[place] Butter (Preparation H(Pe,Cb)) 0.25-88.44 % Suppository Active 1 NMA RC NEEDED as needed for Hemorrhoids February 09, 2022 12:00am Start: 02-09-2022 Phenylephrine- [place] Butter (Preparation H(Pe,Cb)) 0.25-88.44 % Suppository Active 1 SUPP RC NEEDED February 08, 2022 11:00pm Start: 06-13-2021 End: 02-14-2024 PHENYLephrine-cocoa butter ( PREPARATION H,PE,CB,) 0.25-88.44 % supp Indications: Blood in stool , Internal hemorrhoids 1 Suppository by RECTAL route once daily. 30 Suppository 2 06/13/2021 02/14/2024 Discontinued Comment on above: 1 Suppository by REC AILEEN route once daily. Comp Stocking,Knee,Regular, Med misc (20 sources) Start: 05-11-2020 Comp Stocking,Knee,Regula r,Med misc Indications: Pedal edema 2 Each once daily. 2 Each 05/11/2020 Active Start: 05-11-2020 Comp Stocking, Knee,Regular,Med misc Indications: Pedal edema 2 Each once daily. 2 Each 0 05/11/2020 Active Comment on above: 2 Each once daily. COMPACT SPACE CHAMBER (20 sources) Start: 01-20-2021 COMPACT SPACE CHAMBER as directed. 01/20/2021 Active Start: 01-20-2021 COMPACT SPACE CHAMBER as directed. 0 01/20/2021 Active Comment on above: as directed. 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 90 capsule 2 01/05/2023 Active Comment on above: Take 60 mg by mouth once daily. Dexlansoprazole 30 mg capsule,biphase delayed releas (5 sources) Start: 024 take 1 capsule by mouth twice daily Dexlansoprazole 30 mg capsule,biphase delayed releas Active 30 mg PO TWICE A DAY 60 April 14, 2024 12:00am diclofenac sodium 0.01 mg/mg topical gel (20 sources) Nonsteroidal Anti-inflammatory Drug Start: 024 apply 2 g topically once Diclofenac Sodium 1 % gel Active 2 g TOPICAL ONCE January 18, 2024 12:00am apply to single elbow, wrist or hand; for hand includes palm/fingers/back of hand Start: 03-23-2023 apply 2 g topically twice mary kate y diclofenac (VOLTAREN) 1 % topical gel Apply 2 g to affected area twice daily. 50 g 03/23/2023 Active Comment on above: Apply 2 g to affecte d area twice daily. dicyclomine hydrochloride 20 mg oral tablet (20 sources) Anticholinergic Start: 04-16-20 24 take 1 tablet by mouth twice daily Dicyclomine 20 mg tablet Active 20 mg PO TWICE A DAY 60 April 16, 2024 12:00am Start: 06-13-2021 End: 03-14-2024 take 1 capsule by mouth at bedtime Dicyclomine 10 mg capsule Discontinued 10 mg PO AT BEDTIME December 09, 2021 12:00am March 14, 2024 8:58am End: 11-19-2020 take 1 capsule by mouth at bedtime dicyclomine (BENTYL) 10 mg capsule Take 10 mg by mouth before meals and at bedtime. 11/19/2020 Discontinued Comment on above: Take 1 capsule by mo uth before meals and at bedtime. doxycycline hyclate 100 mg oral capsule (20 sources) Tetracycline-class Drug Start: 01-14-2025 take 1 capsule by mouth twice daily Doxycycline Hyclate 100 mg capsule Active 100 mg PO TWICE A DAY 14 January 14, 2025 12:00am Asthma-chronic obstructive pulmonary disease overlap syndrome Chronic obstructive pulmonary disease, unspecified Start: 08-02-2024 End: 08-07-2024 take 1 capsule by mouth twice daily doxycycline hyclate (VIBRAMYCIN) 100 mg capsule Indications: Asthma with COPD with exacerbation (HCC) Take 1 capsule (100 mg) by mouth two times a day for 5 days. 10 capsule 08/02/2024 08/07/2024 Active Start: 02-14-2024 End: 02-24-2024 take 1 tablet by mouth twice daily doxycycline (VIBRA-TABS) 100 mg tablet Take 1 tablet by mouth two times a day for 10 days. 20 tablet 02/14/2024 02/24/2024 Start: 10-17-2023 End: 10-27-2023 take 1 tablet by mouth twice daily doxycycline (VIBRA-TABS) 100 mg tablet Take 1 tablet by mouth two times a day for 10 days. 20 tablet 10/17/2023 10/27/2023 Start: 08-14-2022 End: 05-14-2023 take 1 tablet by mouth twice daily Doxycycline Hyclate 100 mg tablet Discontinued 100 mg PO TWICE A DAY 20 December 29, 2022 12:00am January 08, 2023 7:51am Start: 05-11-2020 End: 05-21-2020 take 1 tablet by mouth twice daily doxycycline (VIBRA-TABS) 100 mg tablet Indications: COPD with exacerbation (HCC) Take 1 tablet by mouth twice daily for 10 days. 20 tablet 05/11/2020 05/21/2020 Comment on above: Take 1 tablet by freddy th two times a day for 10 days. Take with food Take 1 tablet by freddy th two times a day for 10 days. 2 ml dupilumab 150 mg/ml auto-injector (3 sources) Interleukin-4 Receptor alpha Antagonist Start: 01-14-2025 Dupilumab (Dupixent Pen) 300 mg/2 mL pen injector Active 300 mg SC every 2 weeks 4 January 14, 2025 12:00am Asthma-chronic obstructive pulmonary disease overlap syndrome Chronic obstructive pulmonary disease, unspecified enteric contrast (will be provided with radiology test) (1 source) Start: 11-22-2022 End: 11-23-2022 enteric contrast (will be provided with radiology test) Indications: Vomiting without nausea, unspecified vomiting type , Constipation, unspecified constipation type , Acute LUQ pain For CT ABD/PEL W IVCON Routine order Administer, As Directed One Time Only, via Oral, Rectal, both Oral and Rectal, Enteric Tube, Stoma or Indwelling Catheter, Enteric Contrast as designated per enteric contrast guidelines 1 Each 0 11/22/2022 11/23/2022 Active Comment on above: For CT ABD/PEL W IVC ON Routine order Administer, As Directed One Time Only, via Oral, Rectal, both Oral and Rectal, Enteric Tube, Stoma or Indwelling Catheter, Enteric Contrast as designated per enteric contrast guidelines [id number] 0.3 ml EPINEPHrine 1 mg/ml auto-injector (20 sources) alpha-Adrenergic Agonist, beta-Adrenergic Agonist, Catecholamine Start: 01-08-2023 EPINEPHrine (EPIPEN) 0.3 mg/0.3 mL auto-injector Inject intramuscularly. 01/08/2023 Active Start: 01-08-2023 Epinephrine (E pipen) 0.3 mg/0.3 mL auto-injector Active 0.3 mg IM ONCE 1 0 January 08, 2023 12:00am as a single dose; may repeat once Comment on above: Inject intramuscular ly. ergocalciferol 1.25 mg oral capsule (20 sources) Provitamin D2 Compound Start: 024 take 1 tablet by mouth two times weekly, then take 1 tablet by mouth every week ergocalciferol 50,000 unit capsule (VITAMIN D2, DRISDOL) Take 1 tablet by mouth twice weekly [id number], then decrease to 1 tablet weekly. 16 capsule 3 05/26/2024 Active Start: 06-15-2021 End: 05-26-2024 Ergocalciferol (Vitamin D2) 1,250 mcg (50,000 unit) capsule Active 1250 ug PO EVERY WEEK December 09, 2021 12:00am Start: 01-15-2020 End: 07-12-2020 take 1 capsule by mouth every week ergocalciferol 50,000 unit capsule (VITAMIN D2, DRISDOL) Indications: Vitamin D deficiency Take 1 capsule by mouth one time a week. 4 capsule 2 01/15/2020 07/12/2020 Discontinued Comment on above: Take 1 capsule by mo [facility] one time a week. famotidine 40 mg oral tablet (20 sources) Histamine-2 Receptor Antagonist Start: take 1 tablet by mouth once daily at bedtime for gastroesophageal reflux disease Famotidine 20 mg tablet Active 20 mg PO TWICE A DAY as needed for breakthrough heartburn 60 April 14, 2024 12:00am Take 1 at bedtime. The second dose can be midday. Start: 10-26-2022 End: 12-29-2024 take 1 tablet by mouth once daily as needed Famotidine 40 mg tablet Active 40 mg PO daily as needed January 14, 2025 12:00am Comment on above: Take 1 tablet by [facility] once daily as needed. fluticasone propionate 0.05 mg/actuat metered dose nasal spray (20 sources) Corticosteroid Start: take 2 spray(s) by mouth once daily fluticasone (FLONASE) 50 mcg/actuation nasal spray Use 2 sprays in each nostril once daily. Rinse mouth after use. 1 each 3 10/31/2024 Active Start: 02-13-2016 End: 02-05-2024 Fluticasone Propionate 50 mc g/actuation spray,suspension Discontinued 1 NMA NASAL TWICE A DAY 3 3 November 05, 2023 9:59am February 05, 2024 9:06am Start: 02-13-2016 Fluticasone Pr opionate Active 1 SPRAY NASAL TWICE A DAY February 12, 2016 11:00pm Start: 01-26-2016 End: 07-18-2023 take 2 spray(s) by mouth once daily fluticasone (FLONASE) 50 mcg/actuation nasal spray Indications: History of environmental allergies Use 2 Sprays in each nostril once daily. Rinse mouth after use. 1 Each 11 07/18/2023 Active Comment on above: Use 2 Sprays in each nostril once daily. Rinse mouth after use. Fluticasone-Umeclidin- Vilanter (20 sources) Start: 01-14-2025 Oqttxomznal-Wlmgluayu-Mlb anter (Trelegy Ellipta) 200-62.5-25 mcg blister with device Active 1 NMA INHALATION DAILY 3 January 14, 2025 9:04am Asthma-chronic obstructive pulmonary disease overlap syndrome Chronic obstructive pulmonary disease, unspecified Start: 02-05-2024 End: 01-14-2025 Nihkexjzuce-Mkekzlwly-Styhed er (Trelegy Ellipta) 200-62.5-25 mcg blister with device Discontinued 1 NMA INHALATION DAILY 3 February 05, 2024 9:05am January 14, 2025 9:05am Asthma-chronic obstructive pulmonary disease overlap syndrome Chronic obstructive pulmonary disease, unspecified Start: 02-05-2024 Fluticasone-Um eclidin-Vilanter (Trelegy Ellipta) 200-62.5-25 mcg blister with device Active 1 NMA INHALATION DAILY 3 February 05, 2024 9:05am Asthma-chronic obstructive pulmonary disease overlap syndrome Chronic obstructive pulmonary disease, unspecified Start: 01-08-2023 End: 02-05-2024 Yjxggrteuir-Djbgyedta-Nlhuyh er (Trelegy Ellipta) 200-62.5-25 mcg blister with device Discontinued 1 NMA INHALATION DAILY 3 January 08, 2023 8:16am February 05, 2024 9:06am Start: 01-08-2023 Fluticasone-Um eclidin-Vilanter (Trelegy Ellipta) 200-62.5-25 mcg blister with device Active 1 INH INHALATION DAILY January 08, 2023 7:16am Start: 01-08-2023 Fluticasone-Um eclidin-Vilanter (Trelegy Ellipta) 200-62.5-25 mcg blister with device Active 1 INH INHALATION DAILY January 08, 2023 8:16am Start: 05-16-2022 End: 01-08-2023 Jriuouwwena-Ptjokulel-Vcoggv er (Trelegy Ellipta) 200-62.5-25 mcg blister with device Discontinued 1 NMA INHALATION DAILY 60 May 16, 2022 1:00am January 08, 2023 8:18am Start: 05-16-2022 End: 01-08-2023 Wsxgwydlzpo-Hwvcwqtkn-Gjwojj er (Trelegy Ellipta) 200-62.5-25 mcg blister with device Discontinued 1 INH INHALATION DAILY 60 May 16, 2022 12:00am January 08, 2023 7:18am Start: 05-16-2022 End: 01-08-2023 Yrdmlgjokjv-Rnsadoopv-Xnpvhr er (Trelegy Ellipta) 200-62.5-25 mcg blister with device Discontinued 1 INH INHALATION DAILY May 16, 2022 1:00am January 08, 2023 8:18am Start: 05-16-2022 Fluticasone-Um eclidin-Vilanter (Trelegy Ellipta) 200-62.5-25 mcg blister with device Active 1 INH INHALATION DAILY May 16, 2022 1:00am oefnjkmqkvq-agzchahtt-boxalp er (TRELEGY ELLIPTA) 200-62.5-25 mcg inhalation powder (20 sources) Start: 05-16-2022 pwewhwpnmro-ifdtuiwvv-mzpusl er (TRELEGY ELLIPTA) 200-62.5-25 mcg inhalation powder Inhale as instructed. 05/16/2022 Active Start: 05-16-2022 fluticasone-um eclidin-vilanter (TRELEGY ELLIPTA) 200-62.5-25 mcg inhalation powder Inhale as instructed. 0 05/16/2022 Active Comment on above: Inhale as instructed . 12 hr guaiFENesin 600 mg extended release oral tablet (20 sources) Start: 07-13-2022 take 1 tablet by mouth twice daily MUCUS RELIEF ER 600 mg 12 hr tablet Take 1,200 mg by mouth twice daily. 07/13/2022 Active Start: 07-13-2022 End: 08-16-2022 take 1 tablet by mouth twice daily guaiFENesin 1,200 mg Ta12 Take 1 tablet by mouth twice daily. 180 tablet 1 07/13/2022 08/16/2022 Discontinued Start: 01-06-2022 End: 01-14-2025 take 1 tablet by mouth every twelve hours Guaifenesin 1,200 mg tablet extended release 12hr Discontinued 1200 mg PO Q12H 60 6 February 05, 2024 9:05am January 14, 2025 9:05am Lung nodule Solitary pulmonary nodule Comment on above: Take 1 tablet by freddy twice daily. Take by mouth. Take 1,200 mg by [facility] twice daily. iv contrast (will be provided with radiology test) (1 source) Start: 11-23-19 End: 11-24-19 iv contrast (will be provided with radiology test) Indications: Vomiting without nausea, unspecified vomiting type , Constipation, unspecified constipation type , Acute LUQ pain CT ABD/PEL -Inject, intravenously, once for 1 dose.No IV access, insert saline lock prior to the beginning of sedation, infusion, injection of imaging exam. Discontinue saline lock post exam. If Pt. has a central line or IVAD, may access for administration according to line specific nursing protocol. Once exam is complete flush line and de-access according to line specific nursing protocol in the CT contrast administration guidelines link. 1 Each 0 11/22/2022 11/23/2022 Active Comment on above: CT ABD/PEL -Inject, intravenously, once for 1 dose.No IV access, insert saline lock prior to the beginning of sedation, infusion, injection of imaging exam. Discontinue saline lock post exam. If Pt. has a central line or IVAD, may access for administration according to line specific nursing protocol. Once exam is complete flush line and de-access according to line specific nursing protocol in the CT contrast administration guidelines link. L. acidophilus-L. rhamnosus 15 billion cell cap (20 sources) Start: 08-05-19 take 1 capsule by mouth once daily L. acidophilus-L. rhamnosus 15 billion cell cap Indications: BV (bacterial vaginosis) Take 1 capsule by mouth once daily. FLORAJ[employer] WOMEN. If on antibiotic, take at least 1-2 hours before or after antibiotic. KEEP REFRIGERATED 30 capsule 08/05/2021 Active Start: 09-18-2019 End: 08-05-2021 take 1 capsule by mouth once daily L. acidophilus-L. rhamnosus 15 billion cell cap Indications: BV (bacterial vaginosis) Take 1 capsule by mouth once daily. FLORAJEN WOMEN. If on antibiotic, take at least 1-2 hours before or after antibiotic. KEEP REFRIGERATED 30 capsule 11 09/18/2019 08/05/2021 Discontinued Comment on above: Take 1 capsule by [facility] once daily. FLORAJEN WOMEN. If on antibiotic, take at least 1-2 hours before or after antibiotic. KEEP REFRIGERATED lactobacillus acidophilus [id number] unt oral tablet (5 sources) Start: 01-07-20 Lactobacillus Acidophilus 2 billion cell tablet Active 2000 NMA PO TWICE A DAY 60 3 January 06, 2025 12:00am levoFLOXacin 750 mg oral tablet (20 sources) Quinolone Antimicrobial Start: 03-31-20 End: 04-07-20 take 1 tablet by mouth once daily levoFLOXacin (LEVAQUIN) 750 mg tablet Indications: COPD with exacerbation (HCC) , Wheezing , Shortness of breath Take 1 tablet by mouth once daily for 7 days. 7 tablet 03/31/2024 04/07/2024 Active Start: 08-26-2023 End: 11-05-2023 take 1 tablet by mouth once daily Levofloxacin 750 mg tablet Discontinued 750 mg PO DAILY 5 0 August 26, 2023 1:00am November 05, 2023 9:49am Start: 08-14-2022 End: 12-13-2022 Levofloxacin 750 mg tablet Discontinued NMA PO August 14, 2022 1:00am December 13, 2022 9:11am Start: 08-10-2022 End: 12-13-2022 take 1 tablet by mouth once daily levoFLOXacin (LEVAQUIN) 750 mg tablet Indications: COPD with exacerbation (HCC) , Wheezing , Shortness of breath Take 1 tablet by mouth once daily for 7 days. 7 tablet 08/10/2022 08/17/2022 Discontinued (Discontinued by Patient) Start: 05-31-2022 End: 06-07-2022 take 1 tablet by mouth once daily levoFLOXacin (LEVAQUIN) 750 mg tablet Indications: Helicobacter pylori infection Take 1 tablet by mouth once daily for 7 days. 7 tablet 0 05/31/2022 06/07/2022 Discontinued (Clinical Decision) Start: 10-11-2021 End: 10-18-2021 take 1 tablet by mouth once daily levoFLOXacin (LEVAQUIN) 500 mg tablet Indications: Helicobacter pylori infection Take 1 tablet by mouth once daily for 7 days. 7 tablet 0 10/11/2021 10/18/2021 Active Comment on above: Take 1 tablet by freddy th once daily for 7 days. loratadine 10 mg oral tablet (20 sources) Start: 018 End: 025 take 1 tablet by mouth once daily loratadine (CLARITIN) 10 mg tablet Take 1 tablet by mouth once daily. 30 tablet 5 01/07/2025 Active Comment on above: Take 1 tablet by freddy th once daily. magnesium hydroxide 80 mg/ml oral suspension (20 sources) Start: 023 take 15 mL by mouth once daily as needed for constipation magnesium hydroxide (MILK OF MAGNESIA) 400 mg/5 mL suspension Take 15 mL by mouth once daily as needed for constipation. 60 mL 11/29/2022 Active Comment on above: Take 15 mL by mouth once daily as needed for constipation. meloxicam 15 mg oral tablet (20 sources) Nonsteroidal Anti-inflammatory Drug Start: End: 025 take 1 tablet by mouth once daily Meloxicam 15 mg tablet Active 15 mg PO daily January 14, 2025 12:00am metoclopramide 10 mg oral tablet (10 sources) Dopamine-2 Receptor Antagonist Start: 024 take 1 tablet by mouth 30 minutes before mealtime Metoclopramide Hcl 10 mg tablet Active 10 mg PO before meals 90 2 June 03, 2024 1:00am administer 30 minutes before meals Start: 04-14-2024 End: 05-05-2024 take 1 tablet by mouth every eight hours Metoclopramide Hcl 10 mg tablet Discontinued 10 mg PO Q8H 63 21 0 April 14, 2024 12:00am May 04, 2024 12:00am May 05, 2024 12:08am nausea and vomiting montelukast 10 mg oral tablet (20 sources) Leukotriene Receptor Antagonist Start: 11-17-2021 End: 01-14-2025 take 1 tablet by mouth once daily at bedtime montelukast (SINGULAIR) 10 mg tablet Take 1 tablet by mouth daily at bedtime. 90 tablet 3 07/13/2022 Active End: 11-17-2021 montelukast (SINGULAIR) 10 m g tablet q 24 HR. 11/17/2021 Discontinued Comment on above: q 24 HR. Take 1 tablet by freddy th daily at bedtime. multivit with minerals/lutein (MULTIVITAMIN 50 PLUS ORAL) (20 sources) multivit with minerals/lutein (MULTIVITAMIN 50 PLUS ORAL) Take by mouth. Active multivit with mi nerals/lutein (MULTIVITAMIN 50 PLUS ORAL) Take by mouth. 0 Active Comment on above: Take by mouth. PEP device (5 sources) Start: 02-05-2024 PEP device Active 0 .ROUTE .MEDSUPPLY 1 February 05, 2024 12:00am Chronic obstructive pulmonary disease Chronic obstructive pulmonary disease, unspecified Bronchiectasis, uncomplicated with training predniSONE 20 mg oral tablet (20 sources) Start: 01-14-2025 take 2 tablets by mouth once daily, then take 1 tablet by mouth once daily Prednisone 20 mg tablet Active 20 mg PO daily 10 January 14, 2025 12:00am Asthma-chronic obstructive pulmonary disease overlap syndrome Stage 3 severe COPD by GOLD classification Chronic obstructive pulmonary disease, unspecified Take 2 tablets daily for 4 days then 1 tablet daily for 2 days. Start: 10-31-2024 End: 11-24-2024 take 2 tablets by mouth once daily predniSONE (DELTASONE) 20 mg tablet Take 2 tablets by mouth once daily. 10 tablet 10/31/2024 11/24/2024 Discontinued Start: 08-11-2024 End: 08-23-2024 Prednisone 10 mg tablet Disc ontinued 10 mg PO daily 30 12 0 August 11, 2024 11:19am August 22, 2024 1:00am August 23, 2024 1:18am take 4 tabs for three days, then 3 tabs for three days, then 2 tabs for three days, then 1 tab for 3 days Start: 08-02-2024 End: 08-08-2024 predniSONE (DELTASONE) 10 mg tablet Indications: Asthma with COPD with exacerbation (HCC) Take by mouth 6 pills on day 1, 5 pills on day 2, 4 pills on day 3, 3 pills on day 4, 2 pills on day 5, 1 pill on day 6 21 tablet 08/02/2024 08/08/2024 Active Start: 03-31-2024 End: 04-09-2024 predniSONE (DELTASONE) 10 mg tablet Take 4 tabs daily for 3 days, then 2 tabs daily for 3 days, then 1 tab daily for 3 days with food. 21 tablet 03/31/2024 04/09/2024 Active Start: 02-14-2024 End: 02-23-2024 predniSONE (DELTASONE) 10 mg tablet Take 4 tabs daily for 3 days, then 2 tabs daily for 3 days, then 1 tab daily for 3 days with food. 21 tablet 02/14/2024 02/23/2024 Start: 11-30-2023 End: 03-14-2024 take 3 tablets by mouth once daily Prednisone 20 mg tablet Discontinued 60 mg PO DAILY 15 November 30, 2023 12:00am March 14, 2024 8:59am Start: 08-14-2022 End: 12-13-2022 Prednisone 10 mg tablet Disc ontinued NMA PO August 14, 2022 1:00am December 13, 2022 9:11am Start: 08-10-2022 End: 11-05-2023 take 4 tablets by mouth once daily, then take 3 tablets by mouth once daily, then take 2 tablets by mouth once daily, then take 1 tablet by mouth once daily Prednisone 10 mg tablet Discontinued 10 mg PO As Directed 30 December 29, 2022 11:01am January 08, 2023 7:51am see taper instructions. Take 4 tabs daily x 3 days, then 3 tabs daily x 3 days, then 2 tabs daily x 3 days, then 1 tab daily x 3 days Start: 07-13-2022 End: 07-22-2022 predniSONE (DELTASONE) 10 mg tablet Take 4 tabs daily for 3 days, then 2 tabs daily for 3 days, then 1 tab daily for 3 days with food. 21 tablet 0 07/13/2022 07/22/2022 Active Start: 05-31-2022 End: 06-12-2022 predniSONE (DELTASONE) 10 mg tablet Indications: Wheezing , COPD with exacerbation (HCC) Take 4 tabs daily x 3 days, then 3 tabs x 3 days, 2 tabs x 3 days, then 1 tab x3 days with food. 30 tablet 05/31/2022 06/12/2022 Start: 03-29-2022 End: 04-07-2022 predniSONE (DELTASONE) 10 mg tablet Take 4 tabs daily for 3 days, then 2 tabs daily for 3 days, then 1 tab daily for 3 days with food. 21 tablet 0 03/29/2022 04/07/2022 Active Start: 12-02-2021 End: 12-14-2021 predniSONE (DELTASONE) 10 mg tablet Take 4 tabs daily x 3 days, then 3 tabs x 3 days, 2 tabs x 3 days, then 1 tab x3 days with food. 30 tablet 0 12/02/2021 12/14/2021 Active Start: 11-28-2021 take 60 mg by mouth once daily, then take 40 mg by mouth once daily Prednisone Active 60 MG PO DAILY November 28, 2021 3:47pm through 11/28/21 then 40mg po daily Start: 11-23-2021 End: 12-02-2021 take 2 tablets by mouth once daily predniSONE (DELTASONE) 20 mg tablet Take 2 tablets by mouth once daily. 10 tablet 0 11/23/2021 12/02/2021 Discontinued Start: 11-17-2021 End: 11-29-2021 predniSONE (DELTASONE) 10 mg tablet Take 4 tabs daily x 3 days, then 3 tabs x 3 days, 2 tabs x 3 days, then 1 tab x3 days with food. 30 tablet 0 11/17/2021 11/23/2021 Discontinued Start: 05-11-2020 End: 05-20-2020 predniSONE (DELTASONE) 10 mg tablet Indications: COPD with exacerbation (HCC) Take 4 tabs daily for 3 days, then 2 tabs daily for 3 days, then 1 tab daily for 3 days with food. 21 tablet 05/11/2020 05/20/2020 Comment on above: Take 4 tabs daily x 3 days, then 3 tabs x 3 days, 2 tabs x 3 days, then 1 tab x3 days with food. Take 2 tablets by [facility] once daily. Take 4 tabs daily fo r 3 days, then 2 tabs daily for 3 days, then 1 tab daily for 3 days with food. Take 4 tabs daily x5 days, then 2 tabs daily for 5 days, then 1 tab daily for 5 days. promethazine hydrochloride 25 mg oral tablet (20 sources) Phenothiazine Start: 01-18-20 take 1 tablet by mouth three times daily as needed for nausea and vomiting Promethazine 25 mg tablet Active 25 mg PO THREE TIMES A DAY as needed for nausea and vomiting January 18, 2024 12:00am Start: 07-26-2023 End: 12-29-2024 take 1 tablet by mouth every eight hours as needed promethazine (PHENERGAN) 25 mg tablet Take 1 tablet by mouth every 8 hours as needed (for nausea). 30 tablet 2 12/29/2024 Active Start: 08-16-2022 End: 07-18-2023 take 1 tablet by mouth every eight hours as needed for nausea promethazine (PHENERGAN) 25 mg tablet Indications: Chronic Helicobacter pylori gastritis Take 1 tablet by mouth every 8 hours as needed (for nausea). 30 tablet 1 02/02/2023 07/18/2023 Discontinued Start: 06-13-2021 End: 10-05-2021 take 1 tablet by mouth every eight hours as needed for nausea promethazine (PHENERGAN) 25 mg tablet Indications: Helicobacter pylori infection Take 1 tablet by mouth every 8 hours as needed (for nausea). 30 tablet 06/13/2021 10/05/2021 Discontinued End: 10-22-2020 take 1 tablet by mouth every six hours as needed for nausea and nausea promethazine (PHENERGAN) 25 mg tablet Indications: Nausea Take 25 mg by mouth every 6 hours as needed. 10/22/2020 Discontinued (Other) Comment on above: Take 1 tablet by freddy th every 8 hours as needed (for nausea). PULSE OXIMETER CONTE (20 sources) Start: 05-13-2020 PULSE OXIMETER CONTE Indications: SOB (shortness of breath) , COPD with exacerbation (HCC) , Centrilobular emphysema (HCC) 1 Each as needed. 1 Each 05/13/2020 Active Start: 05-13-2020 PULSE OXIMETER CONTE Indications: SOB (shortness of breath) , COPD with exacerbation (HCC) , Centrilobular emphysema (HCC) 1 Each as needed. 1 Each 0 05/13/2020 Active Comment on above: 1 Each as needed. RABEprazole sodium 20 mg delayed release oral tablet (3 sources) Proton Pump Inhibitor Start: End: take 1 tablet by mouth twice daily RABEprazole (ACIPHEX) 20 mg tablet Indications: Helicobacter pylori infection Take 1 tablet by mouth twice daily for 7 days. 14 tablet 0 10/11/2021 10/18/2021 Active Comment on above: Take 1 tablet by freddy th twice daily for 7 days. rifabutin 150 mg oral capsule (3 sources) Rifamycin Antimycobacterial Start: End: take 2 capsules by mouth once daily rifabutin (MYCOBUTIN) 150 mg capsule Indications: Helicobacter pylori infection Take 2 capsules by mouth once daily for 7 days. 14 capsule 0 10/11/2021 10/18/2021 Active Comment on above: Take 2 capsules by m out once daily for 7 days. rizatriptan 10 mg oral tablet (14 sources) Serotonin-1b and Serotonin-1d Receptor Agonist Start: 025 Rizatriptan 10 mg tablet Active mg PO January 14, 2025 12:00am sodium citrate (20 sources) SODIUM CITRATE O RAL Take by mouth. 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 Crush and mix with small tablespoon of applesauce. 60 tablet 0 10/05/2021 11/04/2021 Active Comment on above: Take 1 tablet by freddy twice daily. Crush and mix with small tablespoon of applesauce. tenapanor 50 mg oral tablet (20 sources) Start: 3 End: 4 take 1 tablet by mouth twice daily IBSRELA 50 mg tablet Indications: Irritable bowel syndrome with constipation TAKE 1 TABLET BY MOUTH TWICE A DAY 10 MINUTES BEFORE EATING 180 tablet 1 09/26/2023 Active Comment on above: Take 1 tablet (50 mg ) by mouth twice daily. 10 minutes before eating. TAKE 1 TABLET BY FREDDY TWICE A DAY 10 MINUTES BEFORE EATING Tenapanor (Ibsrela) 50 mg tablet (10 sources) Start: 5 take 1 tablet by mouth once daily at dinner Tenapanor (Ibsrela) 50 mg tablet Active 50 mg PO TWICE A DAY 180 3 August 28, 2024 9:17am must administer immediately before first meal of day/breakfast and dinner Start: 01-18-2024 End: 08-28-2024 take 1 tablet by mouth once daily at dinner Tenapanor (Ibsrela) 50 mg tablet Discontinued 50 mg PO TWICE A DAY January 18, 2024 12:00am August 28, 2024 9:19am must administer immediately before first meal of day/breakfast and dinner tiZANidine 4 mg oral tablet (20 sources) Central alpha-2 Adrenergic Agonist Start: 05-23-2024 take 1 tablet by mouth every eight hours as needed tiZANidine (ZANAFLEX) 4 mg tablet Indications: Cervicalgia , Muscle tightness Take 1 tablet by mouth every 8 hours as needed. 30 tablet 1 05/23/2024 Active Start: 09-06-2020 End: 11-17-2021 take 1 tablet by mouth at bedtime as needed for muscle spasms tiZANidine (ZANAFLEX) 4 mg tablet Indications: Sciatica of right side Take 1 tablet by mouth at bedtime as needed (muscle spasms). 30 tablet 2 09/06/2020 11/17/2021 Discontinued (Discontinued by Patient) Comment on above: Take 1 tablet by freddy th at bedtime as needed (muscle spasms). topiramate 25 mg oral tablet (15 sources) Start: 5 End: 5 take 1 tablet by mouth at bedtime Topiramate 25 mg tablet Active 25 mg PO AT BEDTIME January 14, 2025 12:00am valACYclovir 1000 mg oral tablet (1 source) Herpesvirus Nucleoside Analog DNA Polymerase Inhibitor, Herpes Simplex Virus Nucleoside Analog DNA Polymerase Inhibitor, Herpes Zoster Virus Nucleoside Analog DNA Polymerase Inhibitor Start: 2 End: 2 take 1 tablet by mouth three times daily valACYclovir (VALTREX) 1 gram Take 1 tablet by mouth three times daily for 7 days. 21 tablet 0 03/29/2022 04/05/2022 Active Comment on above: Take 1 tablet by freddy th three times daily for 7 days. Completed/Discontinued Medications Medication Drug Class(es) Dates Sig (Normalized) Sig (Original) acetaminophen 325 mg / HYDROcodone bitartrate 5 mg oral tablet (15 sources) Opioid Agonist Start: 10-23-2019 End: 10-25-2019 Hydrocodone-Acetami nophen 1 TABLET tablet Discontinued 1 {tbl} PO EVERY 4 HOURS NEEDED as needed for Pain 15 2 0 October 23, 2019 October 24, 2019 12:00am October 25, 2019 12:02am Back pain Dorsalgia, unspecified Start: 10-23-2019 End: 10-25-2019 take 1 tablet by mouth every four hours as needed Hydrocodone-Acetaminophen Discontinued 1 TABLET PO EVERY 4 HOURS NEEDED 15 2 October 23, 2019 October 24, 2019 11:02pm [id number] 200 actuat albuterol 0.09 mg/actuat metered dose inhaler (20 sources) beta2-Adrenergic Agonist Start: 05-03-2023 End: 02-05-2024 take 2.5 mg by inhalation every six hours as needed for wheezing Albuterol Sulfate 2.5 mg /3 mL (0.083 %) solution for nebulization Active 2.5 mg INHALATION EVERY 6 HOURS NEEDED as needed for Sob &/Or Wheezing 180 11 February 05, 2024 9:05am Asthma-chronic obstructive pulmonary disease overlap syndrome Chronic obstructive pulmonary disease, unspecified Start: 08-14-2022 End: 05-03-2023 take 2.5 mg by inhalation every six hours as needed Albuterol Sulfate Discontinued 2.5 MG INHALATION EVERY 6 HOURS NEEDED 180 August 14, 2022 10:24am May 03, 2023 9:00am Start: 08-14-2022 End: 05-03-2023 take 2.5 mg by inhalation every six hours as needed Albuterol Sulfate Discontinued 2.5 MG INHALATION EVERY 6 HOURS NEEDED 180 August 14, 2022 11:24am May 03, 2023 10:00am Start: 08-14-2022 take 2.5 mg by inhal ation every six hours as needed Albuterol Sulfate Active 2.5 MG INHALATION EVERY 6 HOURS NEEDED 180 August 14, 2022 11:24am Start: 05-16-2022 End: 01-14-2025 Albuterol Sulfate (Ventolin Hfa) 90 mcg/actuation HFA aerosol inhaler Discontinued 1 NMA INHALATION EVERY 4 HOURS NEEDED as needed for Sob &/Or Wheezing 8.5 6 February 05, 2024 9:05am January 14, 2025 9:05am Asthma-chronic obstructive pulmonary disease overlap syndrome Chronic obstructive pulmonary disease, unspecified Start: 05-16-2022 take 1 puff(s) by in halation every four hours as needed Albuterol Sulfate (Ventolin Hfa) 90 mcg/actuation HFA aerosol inhaler Active 1 PUFF INHALATION EVERY 4 HOURS NEEDED 8.5 May 16, 2022 10:12am Start: 06-15-2021 take 2.5 mg by inhal ation every six hours as needed albuterol (PROVENTIL) 2.5 mg /3 mL (0.083 %) nebulizer solution Use 3 mL via nebulizer every 6 hours as needed. 180 mL 3 06/15/2021 Active Start: 06-15-2021 End: 11-17-2021 take 2 puff(s) by inhalation every four hours as needed for wheezing albuterol HFA (VENTOLIN HFA) 90 mcg/actuation inhaler Indications: COPD with exacerbation (HCC) Inhale 2 Puffs as instructed every 4 hours as needed for wheezing/shortness of breath. 18 g 2 11/17/2021 Active Start: 01-15-2020 End: 06-15-2021 albuterol (PROVENTIL) 2.5 mg /0.5 mL nebulizer solution Indications: Moderate persistent asthma without complication Use 0.5 mL via nebulizer every 6 hours as needed. 60 Vial 3 01/15/2020 06/15/2021 Discontinued Start: 02-13-2016 Albuterol Sulf ate (Ventolin Hfa (Sp)) 1 INHALER inhaler Active 1 PUFF INHALATION EVERY 4 HOURS NEEDED February 13, 2016 12:49pm Start: 02-13-2016 End: 08-14-2022 take 2.5 mg by inhalation every six hours as needed for wheezing Albuterol Sulfate 2.5 MG/3 ML solution for nebulization Discontinued 2.5 mg INHALATION EVERY 6 HOURS NEEDED as needed for Sob &/Or Wheezing February 13, 2016 12:00am August 14, 2022 11:25am Start: 02-13-2016 End: 05-16-2022 Albuterol Sulfate (Ventolin Hfa (Sp)) 1 INHALER inhaler Discontinued 1 NMA INHALATION EVERY 4 HOURS NEEDED as needed for Sob &/Or Wheezing February 13, 2016 12:00am May 16, 2022 11:12am Start: 02-13-2016 End: 11-08-2022 Albuterol Sulfate (Ventolin Hfa (Sp)) 1 INHALER inhaler Discontinued 1 PUFF INHALATION EVERY 4 HOURS NEEDED February 12, 2016 11:00pm May 16, 2022 10:12am Start: 02-13-2016 End: 05-16-2022 Albuterol Sulfate (Ventolin Hfa (Sp)) 1 INHALER inhaler Discontinued 1 PUFF INHALATION EVERY 4 HOURS NEEDED February 13, 2016 12:00am May 16, 2022 11:12am Start: 02-13-2016 Albuterol Sulf ate (Ventolin Hfa (Sp)) 1 INHALER inhaler Active 1 PUFF INHALATION EVERY 4 HOURS NEEDED February 13, 2016 12:00am Start: 10-07-2015 End: 10-14-2015 take 1 puff(s) by inhalation every four hours as needed Albuterol Sulfate (Proair Hfa (Sp)Vent Pts) 1 PUFF inhaler Discontinued 1 - 2 NMA INHALATION EVERY 4 HOURS NEEDED as needed for Sob &/Or Wheezing October 07, 2015 12:00am October 14, 2015 2:59pm Start: 10-07-2015 End: 10-14-2015 take 1 puff(s) by inhalation every four hours as needed Albuterol Sulfate (Proair Hfa (Sp)Vent Pts) 1 PUFF inhaler Discontinued 1 - 2 PUFF INHALATION EVERY 4 HOURS NEEDED October 06, 2015 11:00pm October 14, 2015 1:59pm Comment on above: Inhale 2 Puffs as in structed every 4 hours as needed for wheezing/shortness of breath. Use 3 mL via nebuliz er every 6 hours as needed. albuterol 0.833 mg/ml / ipratropium bromide 0.167 mg/ml inhalation solution (20 sources) Anticholinergic, beta2-Adrenergic Agonist Start: 025 End: 025 take 1 mL by inhalation every six hours Ipratropium-Albute rol 0.5 mg-3 mg(2.5 mg base)/3 mL solution for nebulization Discontinued 3 mL INHALATION EVERY 6 HOURS 90 5 0 August 08, 2024 1:00am August 12, 2024 1:00am August 13, 2024 1:11am Start: 02-09-2022 End: 01-08-2023 take 1 mL by inhalation every four hours Ipratropium-Albuterol Discontinued 3 ML INHALATION Q4H 180 August 14, 2022 10:24am January 08, 2023 7:18am Start: 08-25-2020 End: 01-14-2025 take 3 mL by inhalation every four hours as needed ipratropium-albuterol (DUONEB) 0.5 mg-3 mg(2.5 mg base)/3 mL nebu Inhale 3 mL as instructed every 4 hours as needed. 20 Vial 08/25/2020 Active Start: 10-14-2015 End: 02-13-2016 Ipratropium-Albuterol (Combi vent Respimat Inhal [place]) 1 PUFF inhaler Discontinued 1 NMA INHALATION 4 TIMES DAILY 28 October 14, 2015 12:00am February 13, 2016 12:51pm Start: 10-14-2015 End: 02-13-2016 take 1 puff(s) by inhalation four times daily Ipratropium-Albuterol (Combivent Respimat Inhal [place]) 1 PUFF inhaler Discontinued 1 PUFF INHALATION 4 TIMES DAILY October 13, 2015 11:00pm February 13, 2016 11:51am Comment on above: Inhale 3 mL as instr ucted every 4 hours as needed. Albuterol Sulfate 2.5 mg /3 mL (0.083 %) solution for nebulization (5 sources) Start: 08-14-19 End: 05-03-20 take 2.5 mg by inhalation every six hours as needed for wheezing Albuterol Sulfate 2.5 mg /3 mL (0.083 %) solution for nebulization Discontinued 2.5 mg INHALATION EVERY 6 HOURS NEEDED as needed for Sob &/Or Wheezing 180 11 August 14, 2022 11:24am May 03, 2023 10:00am Asthma-chronic obstructive pulmonary disease overlap syndrome Chronic obstructive pulmonary disease, unspecified aspirin 81 mg delayed release oral tablet (20 sources) Platelet Aggregation Inhibitor, Nonsteroidal Anti-inflammatory Drug Start: 06-15-20 End: 10-06-19 23 take 1 tablet by mouth once daily aspirin, enteric coated (ASPIR-81) 81 mg EC tablet Indications: Tobacco use disorder, mild, in early remission, abuse Take 1 tablet by mouth once daily. 100 tablet 06/15/2021 03/01/2022 Discontinued Start: 07-06-2016 End: 07-12-2020 take 1 tablet by mouth once daily aspirin, enteric coated (ASPIR-81) 81 mg EC tablet Indications: Tobacco use disorder, mild, in early remission, abuse Take 1 tablet by mouth once daily. 100 tablet 3 07/06/2016 07/12/2020 Discontinued Start: 10-14-2015 End: 03-14-2024 take 1 tablet by mouth once daily Aspirin 81 MG tablet,chewable Discontinued 81 mg PO DAILY@0800 30 1 October 14, 2015 12:00am March 14, 2024 8:58am Comment on above: Take 1 tablet by freddy once daily. bismuth subcitrate 140 mg / metroNIDAZOLE 125 mg / tetracycline hydrochloride 125 mg oral capsule (1 source) Nitroimidazole Antimicrobial, Tetracycline-class Antimicrobial Start: End: take 3 capsules by mouth at bedtime Bis Subcit Tol-Cgzxe-Gzpovrhi (PYLERA) 140-125-125 mg per capsule Indications: Helicobacter pylori infection Take 3 capsules by mouth before meals and at bedtime. 120 capsule 03/01/2020 11/19/2020 Discontinued cyclobenzaprine hydrochloride 10 mg oral tablet (20 sources) Muscle Relaxant Start: 022 End: take 1 tablet by mouth three times daily as needed for muscle spasms Cyclobenzaprine 10 mg tablet Discontinued 10 mg PO THREE TIMES A DAY as needed for Muscle Spasm December 09, 2021 12:00am March 14, 2024 8:58am Start: 06-15-2021 End: 11-17-2021 take 0.5-1 tablets by mouth three times daily as needed for muscle spasms cyclobenzaprine (FLEXERIL) 10 mg tablet Indications: Strain of neck muscle, initial encounter Take 0.5-1 tablets by mouth three times daily as needed for muscle spasm. 20 tablet 06/15/2021 11/17/2021 Discontinued (Discontinued by Patient) Start: 04-19-2020 End: 07-12-2020 take 0.5-1 tablets by mouth three times daily as needed for muscle spasms cyclobenzaprine (FLEXERIL) 10 mg tablet Indications: Strain of neck muscle, initial encounter Take 0.5-1 tablets by mouth three times daily as needed for Muscle Spasm. 20 tablet 04/19/2020 07/12/2020 Discontinued Comment on above: Take 0.5-1 tablets b y mouth three times daily as needed for muscle spasm. Dexlansoprazole (Dexilant) 60 mg capsule,biphase delayed releas (5 sources) Start: 01-18-20 End: 04-14-20 24 take 1 capsule by mouth once daily Dexlansoprazole (Dexilant) 60 mg capsule,biphase delayed releas Discontinued 60 mg PO DAILY January 18, 2024 12:00am April 14, 2024 3:19pm FLUoxetine 40 mg oral capsule (1 source) Serotonin Reuptake Inhibitor Start: 08-21-19 17 End: 10-23-19 21 take 1 capsule by mouth once daily FLUoxetine HCl (PROZAC) 40 mg capsule Take 1 capsule by mouth once daily. 30 capsule 11 08/21/2016 10/22/2020 Discontinued (Other) fluticasone / salmeterol (20 sources) Corticosteroid, beta2-Adrenergic Agonist Start: 06-15-20 End: 06-07-20 take 1 puff(s) by mouth twice daily fluticasone-salmeterol (ADVAIR DISKUS) 500-50 mcg/dose dsdv Indications: COPD with exacerbation (HCC) Inhale 1 Puff as instructed twice daily. Rinse and gargle mouth with water after use. 60 Each 1 06/15/2021 06/07/2022 Discontinued (Discontinued by Patient) Start: 06-15-2021 take 1 puff(s) by mo [facility] twice daily fluticasone-salmeterol (ADVAIR DISKUS) 500-50 mcg/dose dsdv Indications: COPD with exacerbation (HCC) Inhale 1 Puff as instructed twice daily. Rinse and gargle mouth with water after use. 60 Each 1 06/15/2021 Active Start: 06-15-2021 take 1 puff(s) by mo [facility] twice daily fluticasone-salmeterol (ADVAIR DISKUS) 500-50 mcg/dose dsdv Indications: COPD with exacerbation (HCC) Inhale 1 Puff as instructed twice daily. Rinse and gargle mouth with water after use. 60 Each 1 06/15/2021 Active Comment on above: Inhale 1 Puff as ins tructed twice daily. Rinse and gargle mouth with water after use. gabapentin 100 mg oral capsule (5 sources) Anti-epileptic Agent Start: End: take 1 capsule by mouth three times daily gabapentin (NEURONTIN) 100 mg capsule Take 1 capsule by mouth three times daily for 30 days. 90 capsule 0 02/27/2022 04/12/2022 Discontinued (Discontinued by Patient) Comment on above: Take 1 capsule by mo [facility] three times daily for 30 days. hydrocortisone 25 mg/ml topical cream (5 sources) Corticosteroid Start: End: hydrocortisone (ANUSOL-HC) 2.5 % rectal cream Indications: Internal hemorrhoids by RECTAL route twice daily for 14 days. 28 g 0 11/10/2022 11/24/2022 Comment on above: by RECTAL route twic e daily for 14 days. ibuprofen 800 mg oral tablet (20 sources) Nonsteroidal Anti-inflammatory Drug Start: End: Ibuprofen 800 mg tablet Discontinued 800 mg PO NEEDED as needed for Pain December 09, 2021 12:00am January 18, 2024 11:00am Start: 11-01-2016 End: 07-12-2020 take 1 tablet by mouth every eight hours as needed for pain ibuprofen (MOTRIN) 800 mg tablet Indications: Chronic pain syndrome Take 1 tablet by mouth every 8 hours as needed for Pain. 60 tablet 5 11/01/2016 07/12/2020 Discontinued Comment on above: Take 1 tablet by [facility] every 8 hours as needed for pain. 2 ml ketorolac tromethamine 30 mg/ml injection (2 sources) Nonsteroidal Anti-inflammatory Drug, Cyclooxygenase Inhibitor Start: 08-21-2024 End: 08-21-2024 keTORolac 30 mg injection (Toradol) Start: 08-21-2024 End: 08-21-2024 30 mg, INTRAMUSCULAR, ONCE, 1 dose, On Chen 08/21/24 at 1000, Ketorolac (Toradol) is indicated for the short-term (up to 5 days) management of moderately severe acute pain. Continuation of ketorolac (Toradol) beyond 5 days increases the risk of developing serious adverse events. Please verify the duration of therapy for ketorolac (Toradol). lactulose 667 mg/ml oral solution (20 sources) Osmotic Laxative Start: 10-26-2022 End: 07-18-2023 take 15 mL by mouth twice daily lactulose (ENULOSE) 10 gram/15 mL solution Indications: Other constipation Take 15 mL by mouth twice daily. 473 mL 2 10/26/2022 07/18/2023 Discontinued Comment on above: Take 15 mL by mouth twice daily. lansoprazole 30 mg delayed release oral capsule (20 sources) Proton Pump Inhibitor Start: 08-16-2022 End: 04-11-2023 take 1 capsule by mouth twice daily lansoprazole (PREVACID) 30 mg capsule Indications: Chronic Helicobacter pylori gastritis , 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 Take 1 capsule by mouth twice daily. Take on empty stomach at least 30 minutes before eating. 180 capsule 3 08/16/2022 04/11/2023 Discontinued Comment on above: Take 1 capsule by mo [facility] twice daily. Take on empty stomach at least 30 minutes before eating. lidocaine 40 mg/ml topical cream (7 sources) Antiarrhythmic, Amide Local Anesthetic Start: 03-16-2022 End: 06-07-2022 lidocaine (LMX) 4 % cream Apply to affected area twice daily as needed. 15 g 1 03/16/2022 06/07/2022 Discontinued (Discontinued by Patient) Comment on above: Apply to affected ar ea twice daily as needed. linaclotide 0.29 mg oral capsule (20 sources) Guanylate Cyclase-C Agonist Start: 11-30-2022 End: 04-11-2023 take 1 capsule by mouth once daily LINZESS 290 mcg capsule Indications: Irritable bowel syndrome with constipation TAKE 1 CAPSULE BY MOUTH ONCE DAILY 6AM. 90 capsule 1 02/21/2023 04/11/2023 Discontinued Start: 11-06-2022 End: 11-30-2022 take 1 capsule by mouth once daily, then take 6 capsules by mouth in the morning linaclotide (LINZESS) 145 mcg capsule Indications: Irritable bowel syndrome with constipation Take 1 capsule by mouth DAILY (6 AM). 30 capsule 2 11/06/2022 11/30/2022 Discontinued Comment on above: Take 1 capsule by mo uth DAILY (6 AM). TAKE 1 CAPSULE BY MO UTH ONCE DAILY 6AM. methylPREDNISolone 4 mg oral tablet (6 sources) Corticosteroid Start: 2024 End: 2024 take 1 tablet by mouth once Methylprednisolone (Medrol (Neema)) 4 mg tablets,dose pack Discontinued 4 mg PO per package directions 21 6 0 August 08, 2024 1:00am August 13, 2024 1:00am August 11, 2024 10:56am Start: 06-25-2021 End: 07-01-2021 methylPREDNISolone (MEDROL, NEEMA,) 4 mg Dose-Pack Follow dosing instructions, take with food. 21 tablet 06/25/2021 07/01/2021 naproxen 500 mg oral tablet (1 source) Nonsteroidal Anti-inflammatory Drug Start: 10-13-2019 End: 07-12-2020 take 1 tablet by mouth twice daily as needed for pain naproxen (NAPROSYN) 500 mg tablet Indications: Strain of neck muscle, initial encounter Take 1 tablet by mouth twice daily as needed (for pain/inflammation). Take with food. 20 tablet 10/13/2019 07/12/2020 Discontinued omeprazole 40 mg delayed release oral capsule (1 source) Proton Pump Inhibitor Start: 03-01-2020 End: 11-19-2020 take 1 capsule by mouth twice daily omeprazole (PRILOSEC) 40 mg capsule Indications: Helicobacter pylori infection Take 1 capsule by mouth twice daily. 30 capsule 03/01/2020 11/19/2020 Discontinued (Changing Therapy/Dosage Form) pantoprazole 40 mg delayed release oral tablet (20 sources) Proton Pump Inhibitor Start: 12-09-2021 End: 01-18-2024 take 1 tablet by mouth once daily Pantoprazole 40 mg tablet,delayed release (DR/EC) Discontinued 40 mg PO DAILY December 09, 2021 12:00am January 18, 2024 11:00am Start: 06-25-2021 End: 08-16-2022 take 1 tablet by mouth twice daily 30 minutes before mealtime pantoprazole DR (PROTONIX) 40 mg tablet Indications: 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 , Helicobacter pylori infection Take 1 tablet by mouth twice daily. 30 minutes before meal. 60 tablet 5 06/25/2021 11/17/2021 Discontinued Start: 03-01-2020 End: 11-19-2020 take 1 tablet by mouth once daily pantoprazole DR (PROTONIX) 40 mg tablet Indications: Epigastric pain Take 1 tablet by mouth once daily. HOLD while taking omeprazole. 30 tablet 5 03/01/2020 11/19/2020 Discontinued (Changing Therapy/Dosage Form) Comment on above: Take 1 tablet by freddy twice daily. 30 minutes before meal. perflutren lipid microspheres 1.3 mL in NaCl (PF) 0.9% 10 mL injection (DEFINITY) (20 sources) Start: 2021 End: 2023 perflutren lipid microspheres 1.3 mL in NaCl (PF) 0.9% 10 mL injection (DEFINITY) phenazopyridine hydrochloride 100 mg oral tablet (2 sources) Start: 2022 phenazopyridine (PYRIDIUM) 100 mg tablet Take 1-2 tablets every 8 hrs as needed for painful urination for up to 2 days 12 tablet 0 03/23/2023 Active Comment on above: Take 1-2 tablets christian ry 8 hrs as needed for painful urination for up to 2 days polyethylene glycol 3350 [id number] mg / potassium chloride 2970 mg / sodium bicarbonate 6740 mg / sodium chloride 5860 mg / sodium sulfate 11799 mg powder for oral solution (20 sources) Osmotic Laxative Start: 2022 End: 2023 peg 3350-Electrolytes (GOLYTELY) 236-22.74-6.74 -5.86 gram suspension Indications: Irritable bowel syndrome with constipation Refer to printed patient instructions that will be mailed to you. 4000 mL 01/05/2023 07/18/2023 Discontinued Comment on above: Refer to printed pat ient instructions that will be mailed to you. 125 ml sodium chloride 9 mg/ml prefilled syringe (20 sources) Start: 2021 End: 2023 sodium chloride 0.9 % (flush) 10 mL (BD POSIFLUSH) SUMAtriptan 50 mg oral tablet (13 sources) Serotonin-1b and Serotonin-1d Receptor Agonist Start: 2024 End: 2024 take 1 tablet by mouth every two hours as needed for headache SUMAtriptan (IMITREX) 50 mg tablet Indications: Acute intractable headache, unspecified headache type , Migraine without status migrainosus, not intractable, unspecified migraine type Take 1 tablet by mouth as needed for migraine headache (see administration instructions) (at onset of headache. May repeat after 2 hours.). May repeat dose after 2 hours if needed. Maximum daily dose is 200 mg per day. 10 tablet 09/08/2024 11/24/2024 Discontinued 60 actuat tiotropium 0.0025 mg/actuat inhalation spray (20 sources) Anticholinergic Start: 2021 End: 2021 take 2.5 ug by inhalation once daily Tiotropium [place] (Spiriva Respimat) 2.5 mcg/actuation mist Discontinued 2 NMA INHALATION daily 07 14January 06, 2022 12:00am May 16, 2022 11:11am Lung nodule Solitary pulmonary nodule administer at approximately the same time(s) each day Start: 11-23-2021 End: 01-12-2022 take 2 puff(s) by inhalation once daily, then take 2 puff(s) by inhalation once daily tiotropium bromide (SPIRIVA RESPIMAT) 2.5 mcg/actuation inhaler Inhale 2 Puffs as instructed once daily. Inhale two puffs once daily. 1 Inhaler 0 11/23/2021 01/12/2022 Discontinued (Discontinued by Patient) Start: 02-13-2016 End: 11-17-2021 tiotropium (SPIRIVA) 18 mcg inhalation capsule Inhale as instructed. 02/13/2016 11/17/2021 Discontinued (Discontinued by Patient) Start: 02-13-2016 End: 01-06-2022 Tiotropium [place] (Spiriva 18 Mcg) 1 PUFF inhaler Discontinued 1 NMA INHALATION DAILY February 13, 2016 12:00am January 06, 2022 10:39am Start: 02-13-2016 End: 01-06-2022 take 1 puff(s) by inhalation once daily Tiotropium [place] (Spiriva 18 Mcg) 1 PUFF inhaler Discontinued 1 PUFF INHALATION DAILY February 12, 2016 11:00pm January 06, 2022 9:39am Comment on above: Inhale as instructed . Inhale 2 Puffs as in structed once daily. Inhale two puffs once daily. varenicline 0.5 mg oral tablet (14 sources) Partial Cholinergic Nicotinic Agonist Start: 4 End: take 1 tablet by mouth once daily varenicline (CHANTIX STARTING MONTH BOX) 0.5 mg (11)- 1 mg (42) tablet Indications: Tobacco use disorder , COPD with exacerbation (HCC) Take 0.5 mg by mouth once daily on Days 1 through 3, THEN 0.5 mg twice daily on Days 4 through 7, THEN 1 mg twice daily on Day 8 and thereafter 120 tablet 04/03/2024 09/08/2024 Discontinued Start: 03-16-2021 End: 10-05-2021 take 1 tablet by mouth once daily varenicline (CHANTIX) 0.5 mg tablet Take 0.5 mg by mouth once daily on Days 1 through 3, THEN 0.5 mg twice daily on Days 4 through 7, THEN 1 mg twice daily on Day 8 and thereafter 53 tablet 0 08/12/2021 10/05/2021 Discontinued Comment on above: Take 0.5 mg by mouth once daily on Days 1 through 3, THEN 0.5 mg twice daily on Days 4 through 7, THEN 1 mg twice daily on Day 8 and thereafter vitamin b6 100 mg oral tablet (1 source) End: 10-22-2020 take 1 tablet by mouth once daily pyridoxine, vitamin B6, (VITAMIN B6) 100 mg tablet Take 100 mg by mouth once daily. 10/22/2020 Discontinued (Other) zolpidem tartrate 5 mg oral tablet (20 sources) gamma-Aminobutyric Acid-ergic Agonist Start: 06-25-2021 End: 01-18-2024 take 1 tablet by mouth at bedtime as needed for sleep Zolpidem 5 mg tablet Discontinued 5 mg PO AT BEDTIME as needed for Sleep December 09, 2021 12:00am January 18, 2024 11:00am Comment on above: Take 1 tablet by freddy th at bedtime as needed for sedation for up to 30 days. Problems Active Problems Problem Classification Problem Date Documented Da te Episodic/Chronic Abdominal pain (10 sources) Right upper quadrant pain; Translations: [Right upper quadrant pain] Onset: Episodic Allergic reactions (1 source) H/O: non-drug allergy; Translations: [Other allergy status, other than to drugs and biological substances] 07-18-2023 Episodic Anxiety disorders (5 sources) Anxiety; Translations: [Anxiety disorder, unspecified] 11-05-2023 Chronic Asthma (20 sources) Asthma; Translations: [Unspecified asthma, uncomplicated] 01-26-2016 Chronic Biliary tract disease (12 sources) Dysfunction of sphincter of Oddi; 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] Onset: 4 04-14-2024 Chronic Chronic obstructive pulmonary disease and bronchiectasis (20 sources) Centriacinar emphysema; Translations: [Centrilobular emphysema] Onset: 6 01-17-2017 Chronic Chronic obstructive pulmonary disease and bronchiectasis (15 sources) Bronchitis; Translations: [Bronchitis, not specified as acute or chronic] 05-28-2020 Episodic Diseases of white blood cells (1 source) Leukocytosis; Translations: [Elevated white blood cell count, unspecified] 06-08-2023 Chronic E Codes: Fall (1 source) Fall; Translations: [Unspecified fall, initial encounter] 08-18-2021 Episodic Esophageal disorders (20 sources) Duggan's esophagus; Translations: [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] Onset: 7 Chronic Gastritis and duodenitis (4 sources) Unspecified chronic gastritis without bleeding; Translations: [Atrophic gastritis, without mention of hemorrhage] Onset: 3 Chronic Gastritis and duodenitis (11 sources) Gastritis; Translations: [Gastritis, unspecified, without bleeding] 04-14-2024 Episodic Genitourinary symptoms and ill-defined conditions (2 sources) Increased frequency of urination; Translations: [Frequency of micturition] Episodic Headache; including migraine (20 sources) Chronic cluster headache; Translations: [Chronic cluster headache, intractable] Onset: 6 12-31-2015 Chronic Headache; including migraine (7 sources) Headache; Translations: [Headaches] Onset: 5 Episodic Hemorrhoids (1 source) Internal hemorrhoids; Translations: [Other hemorrhoids] Episodic Intestinal infection (4 sources) Infection caused by Helicobacter pylori; Translations: [Other specified bacterial intestinal infections] Episodic Lymphadenitis (6 sources) Lymphadenopathy; Translations: [Generalized enlarged lymph nodes] Onset: 5 11-20-2024 Episodic Malaise and fatigue (1 source) Fatigue; Translations: [Other fatigue] Episodic Mood disorders (20 sources) Depressive disorder; Translations: [Other specified depressive episodes] Onset: 6 06-27-2006 Chronic Nausea and vomiting (5 sources) Vomiting without nausea; Translations: [Vomiting without nausea] Episodic Nonmalignant breast conditions (2 sources) Pain of breast; Translations: [Mastodynia] 02-23-2023 Episodic Nutritional deficiencies (20 sources) Vitamin D deficiency; Translations: [Vitamin D deficiency, unspecified] Onset: 7 07-24-2016 Chronic Nutritional deficiencies (1 source) Vitamin deficiency; Translations: [Vitamin deficiency, unspecified] 06-04-2024 Episodic Occlusion or stenosis of precerebral arteries (2 sources) Carotid artery stenosis; Translations: [Occlusion and stenosis of unspecified carotid artery] Onset: 4 04-07-2024 Chronic Osteoporosis (2 sources) Senile osteoporosis; Translations: [Age-related osteoporosis without current pathological fracture] Onset: 4 10-13-2024 Chronic Other aftercare (14 sources) Patient encounter status; Translations: [Other predatory animal exterminator (current) drug therapy] Episodic Other bone disease and musculoskeletal deformities (1 source) Osteopenia; Translations: [Other specified disorders of bone density and structure, unspecified site] 05-23-2024 Episodic Other congenital anomalies (1 source) Osteogenesis imperfecta; Translations: [Osteogenesis imperfecta] 11-20-2024 Chronic Other connective tissue disease (1 source) Cramp; Translations: [Cramp and spasm] Episodic Other connective tissue disease (7 sources) Tenderness of body region; Translations: [Pain in right upper arm] 02-23-2023 Episodic Other connective tissue disease (8 sources) Pain in axilla; Translations: [Pain in right upper arm] 05-04-2023 Episodic Other connective tissue disease (2 sources) Pain of bilateral upper limbs; Translations: [Pain in right arm] 11-01-2023 Episodic Other connective tissue disease (2 sources) Pain in right arm; Translations: [Pain in right arm] 12-11-2023 Episodic Other connective tissue disease (2 sources) Pain in left lower limb; Translations: [Pain in left lower leg] 02-21-2024 Episodic Other connective tissue disease (1 source) Increased muscle tone; Translations: [Other specified disorders of muscle] 05-23-2024 Episodic Other eye disorders (1 source) Bilateral lesion of eyelids; Translations: [Unspecified disorder of eyelid] 08-14-2023 Episodic Other gastrointestinal disorders (20 sources) Irritable bowel syndrome characterized by constipation; Translations: [Irritable bowel syndrome with constipation] Onset: 3 Chronic Other gastrointestinal disorders (2 sources) Irritable bowel syndrome without diarrhea; Translations: [Irritable bowel syndrome, unspecified] Onset: 4 Chronic Other gastrointestinal disorders (19 sources) Constipation; Translations: [Other constipation] Episodic Other gastrointestinal disorders (4 sources) Dysphagia; Translations: [Dysphagia, unspecified] Episodic Other gastrointestinal disorders (2 sources) Dysphagia, unspecified; Translations: [Dysphagia, unspecified type] Onset: 3 Episodic Other gastrointestinal disorders (5 sources) Abdominal bloating; Translations: [Abdominal distension (gaseous)] 03-14-2024 Episodic Other hereditary and degenerative nervous system conditions (1 source) Restless legs; Translations: [Restless legs syndrome] Chronic Other infections; including parasitic (3 sources) History of Helicobacter pylori infection; Translations: [Personal history of other infectious and parasitic diseases] Episodic Other infections; including parasitic (1 source) Personal history of other infectious and parasitic diseases; Translations: [History of Helicobacter pylori infection] Onset: 5 Episodic Other liver diseases (1 source) Elevated liver enzymes level; Translations: [Abnormal levels of other serum enzymes] 03-23-2023 Episodic Other lower respiratory disease (15 sources) Wheezing; Translations: [Wheezing] Episodic Other lower respiratory disease (14 sources) Dyspnea; Translations: [Shortness of breath] Episodic Other lower respiratory disease (16 sources) Nodule of lung; Translations: [Solitary pulmonary nodule] 12-09-2021 Episodic Other lower respiratory disease (5 sources) Solitary pulmonary nodule; Translations: [Solitary pulmonary nodule] Episodic Other lower respiratory disease (13 sources) History of chronic obstructive airway disease; Translations: [Personal history of other diseases of the respiratory system] 02-17-2022 Episodic Other lower respiratory disease (2 sources) Sputum abnormal - amount; Translations: [Abnormal sputum] 02-14-2024 Episodic Other lower respiratory disease (8 sources) Hypoxia; Translations: [Hypoxemia] 08-11-2024 Episodic Other nervous system disorders (5 sources) Chronic pain syndrome; Translations: [Chronic pain syndrome] Chronic Other nervous system disorders (1 source) Other chronic pain; Translations: [Chronic right shoulder pain] Onset: 5 Chronic Other nervous system disorders (3 sources) Paresthesia of upper limb; Translations: [Anesthesia of skin] 11-01-2023 Episodic Other non-epithelial cancer of skin (1 source) History of malignant neoplasm of skin; Translations: [Personal history of other malignant neoplasm of skin] 11-21-2024 Episodic Other non-traumatic joint disorders (1 source) Shoulder pain; Translations: [Pain in right shoulder] Episodic Other non-traumatic joint disorders (1 source) Hip pain; Translations: [Pain in left hip] Episodic Other non-traumatic joint disorders (12 sources) Pain in right shoulder; Translations: [Pain in joint, shoulder region] Onset: 5 03-23-2023 Episodic Other non-traumatic joint disorders (1 source) Acute ankle pain; Translations: [Pain in right ankle and joints of right foot] 2023 Episodic Other non-traumatic joint disorders (3 sources) Chronic pain of right upper limb; Translations: [Pain in right shoulder] 09-08-2024 Episodic Other screening for suspected conditions (not mental disorders or infectious disease) (5 sources) Electrocardiogram abnormal; Translations: [Abnormal electrocardiogram [ECG] [EKG]] Onset: Episodic Other skin disorders (1 source) Eruption; Translations: [Rash and other nonspecific skin eruption] Episodic Other skin disorders (4 sources) Localized swelling, mass and lump, right upper limb; Translations: [Localized superficial swelling, mass, or lump] 09-18-2023 Episodic Other upper respiratory disease (1 source) Other seasonal allergic rhinitis; Translations: [Seasonal allergies] Onset: Chronic Other upper respiratory disease (15 sources) Bronchospasm; Translations: [Acute bronchospasm] 05-28-2020 Episodic Other upper respiratory disease (5 sources) Acute bronchospasm; Translations: [Acute bronchospasm] 12-08-2023 Episodic Residual codes; unclassified (15 sources) Tobacco user; Translations: [Tobacco use] 10-07-2015 Episodic Residual codes; unclassified (15 sources) Tobacco use and exposure - finding; Translations: [Tobacco use] 05-28-2020 Episodic Residual codes; unclassified (6 sources) Tobacco use; Translations: [Tobacco use disorder] Episodic Residual codes; unclassified (1 source) Family history of malignant neoplasm of pancreas; Translations: [Family history of malignant neoplasm of digestive organs] 11-21-2024 Episodic Residual codes; unclassified (1 source) Family history of malignant neoplasm of uterus; Translations: [Family history of malignant neoplasm of other genital organs] 11-21-2024 Episodic Residual codes; unclassified (1 source) Family history of malignant neoplasm of brain; Translations: [Family history of malignant neoplasm of other organs or systems] 11-21-2024 Episodic Respiratory failure; insufficiency; arrest (adult) (2 sources) Dependence on supplemental oxygen; Translations: [Dependence on supplemental oxygen] Onset: 12-29-2024 Chronic Respiratory failure; insufficiency; arrest (adult) (15 sources) Acute respiratory failure; Translations: [Acute respiratory failure with hypoxia] 05-27-2020 Episodic Spondylosis; intervertebral disc disorders; other back problems (20 sources) Neck pain; Translations: [Cervicalgia] Onset: 6 12-31-2015 Episodic Substance-related disorders (20 sources) Tobacco user; Translations: [Nicotine dependence, unspecified, uncomplicated] Onset: 6 06-11-2006 Chronic Superficial injury; contusion (13 sources) Contusion of foot; Translations: [Contusion of right foot, initial encounter] 02-17-2022 Episodic Unclassified (20 sources) Regurgitation; Translations: [Regurgitation] Onset: 7 03-06-2017 Unclassified (2 sources) Chronic pain of right upper limb 09-08-2024 Viral infection (20 sources) Disease caused by 2019-nCoV; Translations: [COVID-19] Episodic Past or Other Problems Problem Classification Problem Date Documented Da te Episodic/Chronic Abdominal hernia (20 sources) Hiatal hernia; Translations: [Diaphragmatic hernia without obstruction or gangrene] Onset: 03-05-2023 02-28-2023 Episodic Bacterial infection; unspecified site (1 source) Helicobacter pylori [H. pylori] as the cause of diseases classified elsewhere; Translations: [Chronic Helicobacter pylori gastritis] Onset: 09-12-2022 Episodic Biliary tract disease (20 sources) Biliary calculus; Translations: [Calculus of gallbladder without cholecystitis without obstruction] Onset: 07-10-2023 07-10-2023 Episodic Cancer of cervix (20 sources) Malignant tumor of cervix; Translations: [Malignant neoplasm of cervix uteri, unspecified] Onset: 11-25-2021 Resolved: 02-14-2024 11-25-2021 Chronic Cancer of uterus (20 sources) H/O: malignant neoplasm; Translations: [Personal history of malignant neoplasm of other parts of uterus] Onset: 06-11-2006 Resolved: 05-18-2016 05-18-2016 Episodic Immunizations and screening for infectious disease (2 sources) Encounter for immunization; Translations: [Encounter for immunization] Onset: 05-15-2024 Episodic Miscellaneous mental health disorders (20 sources) Anorexia nervosa; Translations: [Anorexia nervosa, unspecified] Onset: 06-11-2006 Resolved: 02-14-2024 06-11-2006 Chronic Nonspecific chest pain (20 sources) Chest pain; Translations: [Chest pain, unspecified] Onset: 01-16-2017 Resolved: 01-17-2017 05-03-2017 Episodic Other aftercare (1 source) Other half-way (current) drug therapy; Translations: [Medication management] Onset: 05-23-2024 Episodic Other bone disease and musculoskeletal deformities (1 source) Other specified disorders of bone density and structure, unspecified site; Translations: [Osteopenia, unspecified location] Onset: 05-23-2024 Episodic Other connective tissue disease (20 sources) Myofascial pain; Translations: [Myalgia, other site] Onset: 08-23-2016 08-23-2016 Episodic Other connective tissue disease (20 sources) Fibromyalgia; Translations: [Fibromyalgia] Onset: 08-23-2016 01-17-2017 Episodic Other connective tissue disease (20 sources) Weakness of left leg; Translations: [Other symptoms and signs involving the musculoskeletal system] Onset: 09-10-2020 09-10-2020 Episodic Other connective tissue disease (20 sources) Other symptoms and signs involving the musculoskeletal system; Translations: [Other musculoskeletal symptoms referable to limbs] Onset: 09-10-2020 09-10-2020 Episodic Other connective tissue disease (20 sources) Localized swelling of right upper limb; Translations: [Other specified soft tissue disorders] Onset: 10-31-2024 05-04-2023 Episodic Other connective tissue disease (1 source) Fibromyalgia; Translations: [Fibromyalgia] Onset: 01-17-2017 Episodic Other connective tissue disease (1 source) Other specified soft tissue disorders; Translations: [Right axillary swelling] Onset: 10-31-2024 Episodic Other connective tissue disease (1 source) Pain in right upper arm; Translations: [Axillary pain, right] Onset: 10-13-2024 Episodic Other connective tissue disease (1 source) Pain in left lower leg; Translations: [Pain in left hernandez] Onset: 02-21-2024 Episodic Other female genital disorders (20 sources) Vaginal intraepithelial neoplasia grade 1; Translations: [Mild vaginal dysplasia] Onset: 05-18-2016 10-28-2020 Episodic Other female genital disorders (1 source) Other specified noninflammatory disorders of vagina; Translations: [Vaginal dryness] Onset: 10-31-2024 Episodic Other gastrointestinal disorders (1 source) Abdominal distension (gaseous); Translations: [Abdominal distension (gaseous)] Onset: 05-01-2024 Episodic Other infections; including parasitic (20 sources) Personal history of other infectious and parasitic diseases; Translations: [History of COVID-19] Onset: 07-10-2023 07-10-2023 Episodic Other lower respiratory disease (2 sources) Wheezing; Translations: [Wheezing] Onset: 03-31-2024 Episodic Other lower respiratory disease (1 source) Shortness of breath; Translations: [Shortness of breath] Onset: 03-31-2024 Episodic Other lower respiratory disease (1 source) Hypoxemia; Translations: [Hypoxemia] Onset: 09-10-2024 Episodic Other nervous system disorders (1 source) Other acute postprocedural pain; Translations: [Postoperative pain] Onset: 07-24-2023 Episodic Other nutritional; endocrine; and metabolic disorders (20 sources) Body mass index 25-29 - overweight; Translations: [Overweight] Onset: 07-10-2023 07-10-2023 Episodic Pneumonia (except that caused by tuberculosis or sexually transmitted disease) (20 sources) Community acquired pneumonia; Translations: [Pneumonia, unspecified organism] Onset: 11-03-2015 11-03-2015 Episodic Residual codes; unclassified (20 sources) Edema of foot; Translations: [Localized edema] Onset: 01-26-2016 01-26-2016 Episodic Residual codes; unclassified (20 sources) Insomnia; Translations: [Insomnia, unspecified] Onset: 06-25-2021 06-25-2021 Episodic Residual codes; unclassified (20 sources) Edema; Translations: [Edema, unspecified] Onset: 06-11-2006 Resolved: 05-18-2016 05-18-2016 Episodic Residual codes; unclassified (20 sources) Family history of malignant neoplasm of ovary; Translations: [Family history of malignant neoplasm of ovary] Onset: 10-31-2024 10-31-2024 Episodic Residual codes; unclassified (20 sources) Family history of breast cancer; Translations: [Family history of malignant neoplasm of breast] Onset: 10-31-2024 10-31-2024 Episodic Residual codes; unclassified (1 source) Family history of malignant neoplasm of ovary; Translations: [Family history of ovarian cancer] Onset: 10-31-2024 Episodic Residual codes; unclassified (1 source) Family history of malignant neoplasm of breast; Translations: [Family history of breast cancer] Onset: 10-31-2024 Episodic Screening and history of mental health and substance abuse codes (20 sources) Ex-tobacco user; Translations: [Personal history of nicotine dependence] Onset: 01-26-2016 07-10-2023 Episodic Syncope (8 sources) Syncope; Translations: [Syncope and collapse] Onset: 03-25-2024 01-16-2024 Episodic Unclassified (2 sources) RUE weakness 09-08-2024 Results Test Name Value Interpretation Reference Range Facility MR/PATElvie 02-23-2025 MR/PAT.[facility] Medical Records Department [address] [place] [address] PAT - Anesthesia 02/23/25 1509 MR#: [id number] Acct: [id number] Name: JANE STEINBERG Rep #: [id number] : 1970 54 From: Delmer Schreiber MD PCP: ASHISH LUTZC Status:PRE [facility] [place] Race: C Location: [place] Pre-Assessment Diagnosis/Proposed Procedure Planned Operative Procedure(s): EGD Anesthesia History 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 When Was Last Pacemaker Check QUESTION #4 FULL TEXT: You/Your Family Experience fever (hyperthermia) with Anesthesia Last Oral Intake Last Oral intake: Last Oral Intake NPO since Meds taken in AM with sips of water? Meds patient instructed to take am of surgery PONV PONV - tan room supervisor: PONV - tan room supervisor Female Yes 02/23/25 11:50 HX of Motion Sickness No 02/23/25 11:50 HX of N/V After Surgery No 02/23/25 11:50 Non-Smoker No 02/23/25 11:50 Duration of Surgery greater No 02/23/25 11:50 than 60 minutes Number of Risk Factors 1 02/23/25 11:50 PONV Score Low Risk 02/23/25 11:50 Height Weight Height Weight: Anesthesia: Height Weight Height 5 ft 1 in 02/06/25 09:08 Respiratory Assessment Respiratory Assessment - tan room supervisor: Respiratory Tract Infection Hx - tan room supervisor Hx Respiratory Tract Infection No 02/23/25 11:50 STOP Sleep Apnea STOP Sleep Apnea - tan room supervisor: STOP Sleep Apnea - tan room supervisor Hx Hypertension No 02/23/25 11:50 Hx Sleep Apnea No: 4L O2 @ NIGHT VIA NC 02/23/25 11:50 CPAP BIPAP Do you snore loudly (louder No 02/23/25 11:50 than talking or can be heard Do you often feel tired/ No 02/23/25 11:50 fatigued/ sleepy during daytime? Has anyone observed you stop No 02/23/25 11:50 breathing during sleep? STOP Results Negative 02/23/25 11:50 QUESTION #5 FULL TEXT : Do you snore loudly (louder than talking or can be heard through closed doors)? 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 Specify any problems Hx of Preganancy in last 3 N/A 02/23/25 11:50 Months Nurse Filling Out Transfusion NBUCHER 02/23/25 11:50 Questions: Date: 02/23/25 02/23/25 11:50 Time: 11:51 02/23/25 11:50 Patient unable to answer at this time (ie. confused, unrespo /Reproduction History /Reproductive History - tan room supervisor: /Reproductive Hx- tan room supervisor Hx Now No 02/23/25 11:50 Gestational Age (in weeks): EDC: Hx Hx Para Hx Section SAB No 02/23/25 11:50 [facility] Medical History (Updated 02/23/25 @ 11:55 by Yesica Stauffer) High cholesterol Migraine headache On home oxygen therapy Wears glasses Wears dentures Cancer History of IBS Heartburn Gastric reflux Smoker Shortness of breath on exertion Chronic cough Leg cramps History of echocardiogram Cholelithiasis Irritable bowel syndrome with constipation Hiatal hernia Constipation Snoring Hx of migraines Lung disease Internal hemorrhoids History of uterine cancer H. pylori infection GERD (gastroesophageal reflux disease) Emphysema lung Bulimia nervosa Duggan's esophagus Asthma Anxiety Anorexia nervosa COPD (chronic obstructive pulmonary disease) Home Medications ???Medication ???Instructions ???Recorded ???Last Taken ???Type ergocalciferol (vitamin D2) 1,250 1,250 mcg PO QWEEK 12/09/21 Unkno wn History mcg (50,000 unit) capsule phenylephrine 0.25 %-cocoa butter 1 supp DC PRN PRN Hemorrhoid (more content not included)... Normal [facility] Gastroenterology Visit Repor ton 02-13-2025 Gastroenterology Visit Report [facility] Gastroenterology [address] [place] [address] OFFICE VISIT Date of Service: 02/13/25 MR#: [id number] Acct: [id number] Name: JANE STEINBERG Rep #: [id number] : 1970 Provider: Pelon Friend, DO Age/Sex: 54/F [place] [facility] [place]: Signed Intake Vital Signs 08/11/24 09:31 02/06/25 09:08 Height 5 ft 1 in 5 ft 1 in Intake Visit Reasons: 1 M FU Allergies Penicillins (PCN) Allergy (Verified 02/06/25 09:22) Anaphylaxis Medications ???Medication ???Instructions ???Recorded ???Confirmed ???Type ergocalciferol (vitamin D2) 1,250 1,250 mcg PO QWEEK 12/09/2102/13 History mcg (50,000 unit) capsule phenylephrine 0.25 %-cocoa butter 1 supp DC PRN PRN Hemorrhoids 10/2802/13/25 History 88.44 % rectal suppository (Preparation H(phenyleph,cocoa buttr)) epinephrine 0.3 mg/0.3 mL 0.3 mg (0.3 mL) IM ONCE #1 ea 09/2802/13/25 Rx injection, auto-injector (EpiPen) diclofenac sodium 1 % topical gel 2 g topical ONCE 01/18/24 5 History promethazine 25 mg tablet 25 mg PO TID PRN nausea and 02/13/25 History vomiting PEP device #1 ea 02/05/24 02/13/25 Rx albuterol sulfate 2.5 mg/3 mL 2.5 mg (3 mL) inhalation Q6H PRN 0 02/05/24 02/13/25 Rx (0.083 %) solution for nebulization PRN Sob /Or Wheezing #180 mL fluticasone propionate 50 1 spray BID #3 ea 02/05/24 5 Rx mcg/actuation nasal spray,suspension dexlansoprazole 30 mg 30 mg PO BID #60 caps 04/14/2403/02 Rx capsule,biphase delayed release famotidine 20 mg tablet 20 mg PO BID PRN breakthrough 01/2902/13/25 Rx heartburn #60 tabs dicyclomine 20 mg tablet 20 mg PO BID #60 tabs 04/16/2403/02 Rx atorvastatin 20 mg tablet 20 mg PO QDAY 05/15/24 02/13/25 Hi story metoclopramide HCl 10 mg tablet 10 mg PO QAC #90 tabs 06/03/2403/02 Rx tenapanor 50 mg tablet (Ibsrela) 50 mg PO BID #180 tabs 08/28/24 Rx Lactobacillus acidophilus 2 2,000 mmu cells PO BID #60 tabs 02/13/25 Rx billion cell tablet albuterol sulfate 90 mcg/actuation 1 puff inhalation Q4H PRN PRN So b 01/14/25 02/13/25 Rx aerosol inhaler (Ventolin HFA) /Or Wheezing #8.5 grams amitriptyline 150 mg tablet 150 mg PO QHS 01/14/25 02/13/25 Hi story doxycycline hyclate 100 mg capsule 100 mg PO BID #14 caps 01/14/25 02/13/25 Rx dupilumab 300 mg/2 mL subcutaneous 300 mg (2 mL) subcut Q2W #4 mL 0 01/14/25 02/13/25 Rx pen injector (DupixKSKT) famotidine 40 mg tablet 40 mg PO QDAY PRN 01/14/25 5 History fluticasone fur. 200 mcg-umeclid 1 inh inhalation DAILY #3 ea 01/1402/13/25 Rx 62.5 mcg-vilant 25 mcg inhalat.powder (Trelegy Ellipta) guaifenesin 1,200 mg tablet, 1,200 mg PO Q12H #60 tabs 01/14/25 02/13/25 Rx extended release 12 hr ipratropium 0.5 mg-albuterol 3 mg 3 ml inhalation Q4H PRN Shortness 01/14/25 02/13/25 Rx (2.5 mg base)/3 mL nebulization Of Breath Or Wheezing #180 mL soln loratadine 10 mg tablet (Claritin) 10 mg PO DAILY #90 tabs 01/14/25 02/13/25 Rx meloxicam 15 mg tablet 15 mg PO QDAY 01/14/25 02/13/25 Hi story montelukast 10 mg tablet 10 mg PO DAILY #90 tabs 01/14/25 0 02/13/25 Rx prednisone 20 mg tablet 20 mg PO QDAY #10 tabs 01/14/25 Rx rizatriptan 10 mg tablet mg PO 01/14/25 02/13/25 History topiramate 25 mg tablet 25 mg PO QHS 01/14/25 02/13/25 His tory sucralfate 100 mg/mL oral 10 ml PO BID 30 days #600 mL 02/1302/13/25 Rx suspension PFSH Medical History Wears glasses Wears dentures Cancer History of IBS Heartburn Gastric reflux Smoker Shortness of breath on exertion Chronic cough Leg cramps History of echocardiogram Cholelithiasis Irritable bowel syndrome with constipation Hiatal hernia Constipation Snoring Hx of migraines Lung disease Internal hemorrhoids History of uterine cancer H. pylori infection GERD (gastroesophageal reflux disease) Emphysema lung Bulimia nervosa Duggan's esophagus Asthma Anxiety Anorexia nervosa COPD (chronic obstructive pulmonary disease) Surgical History History of cholecystectomy History of hysterectomy History of appendectomy Family History Mother Hypertension Heart disease Eczema AAA (abdominal aortic aneurysm) Fibromyalgia Father Lung cancer Alcohol abuse Colon cancer Sister Hypertension Asthma Migraine headache Gout Fibromyalgia Aunt Breast cancer Aunt Breast cancer Social History Smoking Status: Current every day smoker tobacco type: cigarettes alcohol intake: curren (more content not included)... Normal [facility] Office Visit Reporton 2024 [place] [facility] [place] [address] [place] [address] OFFICE VISIT Date of Service: 02/06/25 MR#: [id number] Acct: [id number] Patient: JANE STEINBERG Rep #: [id number] : 1970 Provider: Lorin Salinas NP Age/Sex: 54/F [place] [facility] [place] Status: Signed Intake Vital Signs 01/14/25 07:23 02/06/25 09:08 02/06/25 09:35 02/06/25 10:05 02/06/25 10:35 Height 5 ft 1 in 5 ft 1 in Weight: 119 lb 117 lb BMI 22.4 22.1 BP 149/99 H 133/86 H 127/88 H 122/83 H 148/84 H Blood Pressure Location Lt brachial Rt brachial Rt brachial Rt brachial Rt brachial Position Sitting Sitting Sitting Sitting Sitting Respiration 16 16 18 18 18 Pulse 84 80 68 76 72 Pulse Source Monitor Monitor Monitor Monitor Monitor Temp 97.4 F L 96.8 F L 97.8 F 98 F 97.8 F Temp Source Temporal Temporal Temporal Temporal Pulse Oximetry (%) 94 97 98 94 96 Oxygen Delivery Method room air room air room air room air room air Intake Visit Reasons: Asthma- Severe Persistent Asthma, Injection administration Chief Complaint: cough, SOB, wheezing Accompanied by: Allergies Penicillins (PCN) Allergy (Verified 02/06/25 09:22) Anaphylaxis Medications ???Medication ???Instructions ???Recorded ???Confirmed ???Type ergocalciferol (vitamin D2) 1,250 1,250 mcg PO QWEEK 12/09/2102/06 History mcg (50,000 unit) capsule phenylephrine 0.25 %-cocoa butter 1 supp DC PRN PRN Hemorrhoids 10/2802/06/25 History 88.44 % rectal suppository (Preparation H(phenyleph,cocoa buttr)) epinephrine 0.3 mg/0.3 mL 0.3 mg (0.3 mL) IM ONCE #1 ea 09/2802/06/25 Rx injection, auto-injector (EpiPen) diclofenac sodium 1 % topical gel 2 g topical ONCE 01/18/24 5 History promethazine 25 mg tablet 25 mg PO TID PRN nausea and 02/06/25 History vomiting PEP device #1 ea 02/05/24 02/06/25 Rx albuterol sulfate 2.5 mg/3 mL 2.5 mg (3 mL) inhalation Q6H PRN 0 02/05/24 02/06/25 Rx (0.083 %) solution for nebulization PRN Sob /Or Wheezing #180 mL fluticasone propionate 50 1 spray BID #3 ea 02/05/24 5 Rx mcg/actuation nasal spray,suspension dexlansoprazole 30 mg 30 mg PO BID #60 caps 04/14/2408/02 Rx capsule,biphase delayed release famotidine 20 mg tablet 20 mg PO BID PRN breakthrough 10/0 01/2902/06/25 Rx heartburn #60 tabs dicyclomine 20 mg tablet 20 mg PO BID #60 tabs 04/16/2408/02 Rx atorvastatin 20 mg tablet 20 mg PO QDAY 05/15/24 02/06/25 Hi story metoclopramide HCl 10 mg tablet 10 mg PO QAC #90 tabs 06/03/2408/02 Rx tenapanor 50 mg tablet (Ibsrela) 50 mg PO BID #180 tabs 08/28/24 Rx Lactobacillus acidophilus 2 2,000 mmu cells PO BID #60 tabs 02/06/25 Rx billion cell tablet albuterol sulfate 90 mcg/actuation 1 puff inhalation Q4H PRN PRN So b 01/14/25 02/06/25 Rx aerosol inhaler (Ventolin HFA) /Or Wheezing #8.5 grams amitriptyline 150 mg tablet 150 mg PO QHS 01/14/25 02/06/25 Hi story doxycycline hyclate 100 mg capsule 100 mg PO BID #14 caps 01/14/25 02/06/25 Rx dupilumab 300 mg/2 mL subcutaneous 300 mg (2 mL) subcut Q2W #4 mL 0 01/14/25 02/06/25 Rx pen injector (Dupixent) famotidine 40 mg tablet 40 mg PO QDAY PRN 01/14/25 5 History fluticasone fur. 200 mcg-umeclid 1 inh inhalation DAILY #3 ea 01/1402/06/25 Rx 62.5 mcg-vilant 25 mcg inhalat.powder (Trelegy Ellipta) guaifenesin 1,200 mg tablet, 1,200 mg PO Q12H #60 tabs 01/14/25 02/06/25 Rx extended release 12 hr ipratropium 0.5 mg-albuterol 3 mg 3 ml inhalation Q4H PRN Shortness 01/14/25 02/06/25 Rx (2.5 mg base)/3 mL nebulization Of Breath Or Wheezing #180 mL soln loratadine 10 mg tablet (Claritin) 10 mg PO DAILY #90 tabs 01/14/25 02/06/25 Rx meloxicam 15 mg tablet 15 mg PO QDAY 01/14/25 02/06/25 Hi story montelukast 10 mg tablet 10 mg PO DAILY #90 tabs 01/14/25 0 02/06/25 Rx prednisone 20 mg tablet 20 mg PO QDAY #10 tabs 01/14/25 Rx rizatriptan 10 mg tablet mg PO 01/14/25 02/06/25 History topiramate 25 mg tablet 25 mg PO QHS 01/14/25 02/06/25 His tory Have you fallen in the past year?: No Office Procedures Asthma Injection Procedure: Details:: Patient presented for [Y] injection. Patient tolerated treatment well. The patient was monitored for [120] minutes after treatment. Patient shows no signs of adverse reaction. Reviewed signs and symptoms of reaction. Patient instructed to call the office with new or worsening symptoms. Patient advised to report to the emergency department during after hours if necessary. Patient departed from the office with no signs of distress. 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 Normal [facility] Pulmonary Visit Reporton Pulmonary Visit Report [facility] [place] [address] [place] [address] OFFICE VISIT Date of Service: 01/14/25 MR#: [id number] Acct: [id number] Name: JANE STEINBERG Rep #: [id number] : 1970 Provider: Lorin Salinas NP Age/Sex: 54/F [place] [facility] [place] Status: Signed Assessment and Plan Assessment and Plan (1) Asthma-COPD overlap syndrome: Status: Chronic Plan: Deteriorated, the patient is uncontrolled with her current regimen. She is failing Fasenra. She has required multiple rounds of oral prednisone the last year which do provide her with some benefit while she is utilizing the medication but then there is return of wheeze after she has been off prednisone for a few weeks. I have recommended that Fasenra be discontinued and Dupixent be initiated at this time. The patient understands that she will need to come into the office for 2 hours when she has received her dose of Dupixent for an office monitoring. She is agreeable to this plan. The NIOX level is not beneficial today as it is reading below 5 in the context of significant wheezing and respiratory symptoms that the patient has described to me. I am treating her for an exacerbation of her asthma/COPD overlap syndrome today with oral prednisone and doxycycline at this time. The patient does have history of aspiration for which I had initially wanted to utilize Augmentin but due to the penicillin allergy I am planning to place her on doxycycline. The patient should notify this practice if she has worsening respiratory symptoms. She should continue to follow with GI for gastric disease process that is present as this could be contributing to suboptimal control of respiratory symptoms as well. (2) Hypoxia: Status: Acute Plan: Nocturnal hypoxemia is present with the requirement of 4 L/min of supplemental oxygen during sleep. I have discussed importance of obtaining a 6-minute walk test so that the patient can qualify for portable oxygen. The patient reports that she is not interested in obtaining this test today because in the past this test has not been able to be performed outdoors which is when she notices desaturations are present due to the heat and humidity. (3) Lung nodule: Status: Acute Plan: There are micronodules identified on the CT imaging along with groundglass disease. The patient has bilateral axillary adenopathy along with mild mediastinal adenopathy. I have recommended that she complete the antibiotic regimen and a contrasted CT scan be obtained in approximately 8 weeks. The patient does have a history of cervical cancer and significant smoking history. (4) Smoking greater than 30 pack years: Status: Chronic Plan: Complete smoking cessation is encouraged today. The patient reports that she does not want to pick a quit date. She reports that she is working on quitting . Orders: Orders Chest WITH Contrast 03/09/25 R91.1 - Solitary pulmonary nodule Medications: New dupilumab (Dupixent) 300 mg (2 mL) subcut Q2W 4 mL 11RF J44.9 - Chronic obstructive pulmonary disease, unspecified doxycycline hyclate 100 mg PO BID 14 caps 0RF J44.9 - Chronic obstructive pulmonary disease, unspecified prednisone Take 2 tablets daily for 4 days then 1 tablet daily for 2 days. 20 mg PO QDAY 10 tabs 0RF J44.9 - Chronic obstructive pulmonary disease, unspecified Discontinued benralizumab (Fasenra Pen) Discontinued Reason: Order Changed 30 mg subcut Q8W 1 mL 11RF azithromycin Discontinued Reason: Order Completed take 500 mg today (day 1), then 250 mg for 4 days (days 2-5) PO 6 tabs 0RF Plan Details Follow Up: 8 Weeks (LMR) HPI HPI Comments Details: Patient is a 54-year-old female who presents to the office today to discuss recent testing. She is ambulatory and currently on room air. She has not recently had respiratory illness requiring oral prednisone or antibiotic therapy. If you recall just prior to the last evaluation at this practice she was diagnosed with an asthma exacerbation and was given a Medrol Dosepak along with a Z-Neema in July 2024. She reports that her primary care constantly places her on prednisone. She was last on prednisone 1 month ago and before that one month prior. The patient reports that she has received at least 3 doses of prednisone this year already. The patient reports that she has shortness of breath if she goes outside for even 10 minutes. She reports that she is unable to move her air. She has to go inside and use her supplemental oxygen. She notices a significant trigger of Juan hay which is planted across the road from her home. Associated symptoms include cough that is not productive. She reports wheezes present. She denies chest pain and chest tightness. She is compliant with use of Trelegy 200, 1 puff daily. She does report rinsing he (more content not included)... Normal [facility] Gastroenterology Visit Repor ton 01-06-2025 Gastroenterology Visit Report [facility] Gastroenterology [address] [place] [address] OFFICE VISIT Date of Service: 01/06/25 MR#: [id number] Acct: [id number] Name: JANE STEINBERG Rep #: [id number] : 1970 Provider: Pelon Hamilton DO Age/Sex: 54/F Location: [facility] [place] Status: Signed Intake Vital Signs 08/11/24 09:31 Height 5 ft 1 in Weight: 126 lb BMI 23.8 BP 132/50 H Blood Pressure Location Lt brachial Position Sitting Respiration 24 H Pulse 75 Pulse Source Monitor Temp 97.3 F L Pulse Oximetry (%) 96 Oxygen Delivery Method room air Intake Visit Reasons: 3 M FU Allergies Penicillins (PCN) Allergy (Verified 08/11/24 09:40) Anaphylaxis Medications ???Medication ???Instructions ???Recorded ???Confirmed ???Type ergocalciferol (vitamin D2) 1,250 1,250 mcg PO QWEEK 12/09/2101/06 History mcg (50,000 unit) capsule phenylephrine 0.25 %-cocoa butter 1 supp DC PRN PRN Hemorrhoids 10/2801/06/25 History 88.44 % rectal suppository (Preparation H(phenyleph,cocoa buttr)) amitriptyline 25 mg tablet 100 mg PO QHS 05/16/22 01/06/25 Hi story epinephrine 0.3 mg/0.3 mL 0.3 mg (0.3 mL) IM ONCE #1 ea 09/2801/06/25 Rx injection, auto-injector (EpiPen) diclofenac sodium 1 % topical gel 2 g topical ONCE 01/18/24 5 History promethazine 25 mg tablet 25 mg PO TID PRN nausea and 01/06/25 History vomiting PEP device #1 ea 02/05/24 01/06/25 Rx albuterol sulfate 2.5 mg/3 mL 2.5 mg (3 mL) inhalation Q6H PRN 0 02/05/24 01/06/25 Rx (0.083 %) solution for nebulization PRN Sob /Or Wheezing #180 mL albuterol sulfate 90 mcg/actuation 1 puff inhalation Q4H PRN PRN So b 02/05/24 01/06/25 Rx aerosol inhaler (Ventolin HFA) /Or Wheezing #8.5 grams fluticasone fur. 200 mcg-umeclid 1 inh inhalation DAILY #3 ea 02/0401/06/25 Rx 62.5 mcg-vilant 25 mcg inhalat.powder (Trelegy Ellipta) fluticasone propionate 50 1 spray BID #3 ea 02/05/24 5 Rx mcg/actuation nasal spray,suspension guaifenesin 1,200 mg tablet, 1,200 mg PO Q12H #60 tabs 02/05/24 01/06/25 Rx extended release 12 hr ipratropium 0.5 mg-albuterol 3 mg 3 ml inhalation Q4H PRN Shortness 02/05/24 01/06/25 Rx (2.5 mg base)/3 mL nebulization Of Breath Or Wheezing #180 mL soln loratadine 10 mg tablet (Claritin) 10 mg PO DAILY #90 tabs 02/05/24 01/06/25 Rx montelukast 10 mg tablet 10 mg PO DAILY #90 tabs 02/05/24 0 01/06/25 Rx dexlansoprazole 30 mg 30 mg PO BID #60 caps 04/14/2408/02 Rx capsule,biphase delayed release famotidine 20 mg tablet 20 mg PO BID PRN breakthrough 01/2901/06/25 Rx heartburn #60 tabs dicyclomine 20 mg tablet 20 mg PO BID #60 tabs 04/16/2408/02 Rx atorvastatin 20 mg tablet 20 mg PO QDAY 05/15/24 01/06/25 Hi story benralizumab 30 mg/mL subcutaneous 30 mg subcut Q8W #1 mL 05/15/24 01/06/25 Rx auto-injector (Fasenra Pen) metoclopramide HCl 10 mg tablet 10 mg PO QAC #90 tabs 06/03/2408/02 Rx azithromycin 250 mg tablet See Rx Instructions PO .COMPLEX #6 08/08/24 01/06/25 Rx tabs tenapanor 50 mg tablet (Ibsrela) 50 mg PO BID #180 tabs 08/28/24 Rx Lactobacillus acidophilus 2 2,000 mmu cells PO BID #60 tabs 01/06/25 Rx billion cell tablet PFSH Medical History Wears glasses Wears dentures Cancer History of IBS Heartburn Gastric reflux Smoker Shortness of breath on exertion Chronic cough Leg cramps History of echocardiogram Cholelithiasis Irritable bowel syndrome with constipation Hiatal hernia Constipation Snoring Hx of migraines Lung disease Internal hemorrhoids History of uterine cancer H. pylori infection GERD (gastroesophageal reflux disease) Emphysema lung Bulimia nervosa Duggan's esophagus Asthma Anxiety Anorexia nervosa COPD (chronic obstructive pulmonary disease) Surgical History History of cholecystectomy History of hysterectomy History of appendectomy Family History Mother Hypertension Heart disease Eczema AAA (abdominal aortic aneurysm) Fibromyalgia Father Lung cancer Alcohol abuse Colon cancer Sister Hypertension Asthma Migraine headache Gout Fibromyalgia Aunt Breast cancer Aunt Breast cancer Social History (Updated 08/11/24 @ 09:54 by Mickey Valencia NP, [facility]) Smoking Status: Current every day smoker tobacco type: cigarettes alcohol intake: current alcohol intake frequency: holidays/special occasions only substance use type: does not use HPI HPI Details: JANE STEINBERG, is a 54 F who presents to the office today fo (more content not included)... [facility] 01-05-2025 [facility] Telephone (INTMWS) JANE STEINBERG ([id number]) 1970 F Date Time Provider Department 01/05/25 AMANDA WALLACE INTWS During your visit today, we recorded the following information about you: Abbey Baker, RN 01/05/2025 12:14 PM Signed Pt called in and didn't know if she should be calling her PCP or Pulmonary provider. Pt reports since it has been hot and humid outside she has been having issues going outside. She said she tries to stay inside unless she has to go to an appointment or nut picker medication. She states it feels like her throat is swelling, she reports it hinders her breathing but she can still breath. The Pt also reports she has had a consistent dry cough. She reports she will go inside and put her O2 on. I asked the Pt if she has portable O2 and she states her O2 is actually only for HS. I asked if her O2 is ordered by Pulmonary and she said it was. I told her she would need to go through them to get that changed. Pt is going to call Pulmonary as well. Please call merry hummel. KIRK Barnes Chitra, MD 01/05/2025 1:13 PM Signed Agree Regards, Abbey Espino MD, RN 01/05/2025 4:03 PM Signed Pt called and is notified of providers message. Pt voices understanding. She states she called and spoke with their nurse and she said she would talk with Pulmonary provider and get back with her. I told her she could probably give them a call back to see if they had a message for her. Abbey Baker RN Allergies As of Date: 01/05/2025 Noted Allergy Reaction PENICILLINS 06/11/2006 10 - Anaphylaxis Date Reviewed: 12/29/2024 Reviewed by: Laura Hernandez APRN.DUMPER - Fully Assessed Reason for Visit: Patient Update [1234] Prescriptions as of 01/05/2025 - promethazine (PHENERGAN) 25 mg tablet Take 1 tablet by mouth every 8 hours as needed (for nausea). - famotidine (PEPCID) 40 mg tablet Take 1 tablet by mouth once daily as needed. - meloxicam (MOBIC) 15 mg tablet Take 1 tablet by mouth once daily. - topiramate (TOPAMAX) 25 mg tablet Take 1 tablet by mouth daily at bedtime. - rizatriptan (MAXALT) 10 mg tablet Take 1 tablet by mouth as directed. at onset of headache. May repeat after 2 hours. Do not exceed 30 mg per day. - fluticasone (FLONASE) 50 mcg/actuation nasal spray Use 2 sprays in each nostril once daily. Rinse mouth after use. - amitriptyline 150 mg tablet Take 1 tablet by mouth daily at bedtime. - SODIUM CITRATE ORAL Take by mouth. - ergocalciferol 50,000 unit capsule (VITAMIN D2, DRISDOL) Take 1 tablet by mouth twice weekly [id number], then decrease to 1 tablet weekly. - tiZANidine (ZANAFLEX) 4 mg tablet Take 1 tablet by mouth every 8 hours as needed. - atorvastatin (LIPITOR) 20 mg tablet Take 1 tablet by mouth once daily. - EPINEPHrine (EPIPEN) 0.3 mg/0.3 mL auto-injector Inject intramuscularly. - multivit with minerals/lutein (MULTIVITAMIN 50 PLUS ORAL) Take by mouth. - IBSRELA 50 mg tablet TAKE 1 TABLET BY MOUTH TWICE A DAY 10 MINUTES BEFORE EATING - diclofenac (VOLTAREN) 1 % topical gel Apply 2 g to affected area twice daily. - FASENRA PEN 30 mg/mL auto-injector - Dexlansoprazole (DEXILANT) 60 mg CpDM Take 60 mg by mouth once daily. - magnesium hydroxide (MILK OF MAGNESIA) 400 mg/5 mL suspension Take 15 mL by mouth once daily as needed for constipation. - bisacodyl (DULCOLAX, BISACODYL,) 10 mg supp 1 Suppository by RECTAL route once daily as needed for constipation. - MUCUS RELIEF ER 600 mg 12 hr tablet Take 1,200 mg by mouth twice daily. - montelukast (SINGULAIR) 10 mg tablet Take 1 tablet by mouth daily at bedtime. - fluticasone-umeclidin- vilanter (TRELEGY ELLIPTA) 200-62.5-25 mcg inhalation powder Inhale as instructed. - albuterol HFA (VENTOLIN HFA) 90 mcg/actuation inhaler Inhale 2 Puffs as instructed every 4 hours as needed for wheezing/shortness of breath. - L. acidophilus-L. rhamnosus 15 billion cell cap Take 1 capsule by mouth once daily. FLORAJEN WOMEN. If on antibiotic, take at least 1-2 hours before or after antibiotic. KEEP REFRIGERATED - albuterol (PROVENTIL) 2.5 mg /3 mL (0.083 %) nebulizer solution Use 3 mL via nebulizer every 6 hours as needed. - COMPACT SPACE CHAMBER as directed. - ipratropium-albuterol (DUONEB) 0.5 mg-3 mg(2.5 mg base)/3 mL nebu Inhale 3 mL as instructed every 4 hours as needed. - PULSE OXIMETER CONTEC 1 Each as needed. - Comp Stocking,Knee,Regular, Med misc 2 Each once daily. - loratadine (CLARITIN) 10 mg tablet Take 1 tablet by mouth once daily. Meds Comments as of 06/25/2021: ` Problem List As Of Date 01/05/2025 Noted Resolved Asthma [J45.909] HISTORY OF CANCER OF UTERUS [Z85.42] 06/11/2006 05/18/2016 TOBACCO USE DISORDER [F17.200] 06/11/2006 Anorexia nervosa [F50.00] 06/11/2006 02/14/2024 Bulimia nervosa (HCC) [F50.20] 06/11/2006 02/14/2024 Edema [R60.9] (more content not included)... Normal [facility] Low Dose CT Lung Screeningon 01-01-[address] Lung Screening [facility] Imaging Services [address] [place] [address] Lung Screening MR#: [id number] Acct: [id number] Name: JANE STEINBERG Rep #: [id number] : 1970 F 54 From: Roman Dyson MD PCP: LAURA HERNANDEZ POT ANNEALER-C Status: REG CLI Study: Low Dose CT Lung Screening Date of Exam: 01/01 Exam# [id number] Ordering Dr: Mickey Valencia NP [facility]NE[facility]-C PROCEDURE: LOW DOSE CT LUNG SCREENING 01/01/2025 REASON FOR EXAM: SMOKER TECHNIQUE: LOW DOSE CT LUNG SCREENING Coronal and Sagittal reconstruction series were provided. One or more dose reduction techniques were used (e.g., Automated exposure control, adjustment of the mA and/or kV according to patient size, use of iterative reconstruction technique). REFERENCE LINK: [employer] Lung-RADS RADIATION DOSE SUMMARY: CTDlvol: 2 mGy DLP: 66 mGycm COMPARISON: 12/31/2023 FINDINGS: Central airways are patent. Bronchial wall thickening. Biapical scarring, some densities have a nodular appearance but are stable. Multifocal, bilateral areas of ground-glass airspace disease, some of which was present previously, but interval progression of infectious/inflammator y process. No effusion or pneumothorax. On the left, multiple micro nodules. On the right, multiple micro nodules. Multiple pleural-based nodular densities, stable, favoring pleural tags. Multiple intrapulmonary lymph nodes. Mild bilateral axillary adenopathy, usually reactive in etiology. Unremarkable base of neck. Normal heart size. No acute vascular pathology on noncontrast scanning. Mild mediastinal adenopathy, usually reactive in etiology. Thoracic spine scoliosis and degeneration. No acute chest wall findings. No acute upper abdominal findings. Status post cholecystectomy. CT/Low Dose CT Lung Screening IMPRESSION: Bilateral micro nodules. Lung-RADS Category: 2 Other Significant Findings: Worsening scattered bilateral nonspecific ground-glass airspace disease, most consistent with a chronic infectious/inflammator y process. Advise correlation. Follow up imaging as clinically determined. 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: Signed Normal [facility] CNOVon 12-29-2024 [facility] Office Visit (INTMWS ) JANE STEINBERG ([id number]) 1970 F Date Time Provider Department 12/29/24 9:00 AM LAURA HERNANDEZ During your visit today, we recorded the following information about you: Pulse Respiration Blood pressure Weight 80/minute 16/minute 132/80 53.1 kg Laura Hernandez APRN.DUMPER 12/29/2024 9:35 AM Signed CC: Patient presents with: Recheck: Medication follow up HPI Jane Steinberg is a 54 year old female who presents today for medication refill Recording using [employer] software for draft documentation of the visit was discussed with the patient/authorized client care representative; all questions welcomed and answered. Patient/authorized client care representative agreed to proceed COPD: - Well-controlled; avoids heat by staying indoors with air conditioning. - Recent increase in nocturnal oxygen to 4 L/min following an overnight test. - Experiences throat tightness when exposed to outdoor allergens, such as cut grass. - Has steroids on hand at home if needed - cough, wheezing, and shortness of breath at baseline. Denies fever, chills, or chest pain. Nocturnal Emesis/GERD/Barretts esophagus: - Recent increase in nocturnal emesis; previously well-controlled with medication. Needs refill on promethazine as she is needing it again. - Taking promethazine more frequently at bedtime to manage symptoms. - Scheduled appointment with Dr. Hamilton in mid-January for further evaluation. - Denies new dysphagia or abdominal pain. REVIEW OF SYSTEMS See HPI PAST MEDICAL HISTORY Diagnosis Date Anorexia nervosa (HCC) 06/11/2006 Stable; treated in past Anxiety Asthma (HCC) 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 02/13/2020 Bulimia nervosa (HCC) 06/11/2006 Stable, treated in past Cancer (HCC) Chest pain Cholelithiasis 07/24/2023 Chronic obstructive pulmonary disease (COPD) (HCC) Emphysema lung (HCC) GERD (gastroesophageal reflux disease) H. pylori infection cronic Hiatal hernia 02/13/2020 small HISTORY OF CANCER OF UTERUS 06/11/2006 2004, Hysterectomy - complete History of COVID-19 07/10/2023 Internal hemorrhoids Lung disease Migraines Osteopenia Overweight (BMI 25.0-29.9) 07/10/2023 Snoring Tobacco use disorder 06/11/2006 Quit 09/2015. Unspecified asthma(493.90) Childhood diagnosis. VAIN (vaginal intraepithelial neoplasia) 2013 Had seen MICRO PHOTOGRAPHER ONC for abnormal pap and colp biospy of vaginal vault VAIN 2013. PAST SURGICAL HISTORY Procedure Laterality Date APPENDECTOMY 1998 COLONOSCOPY 01/12/2023 no specimens, next colonoscopy 2029 EGD WITH BIOPSY(S) 03/13/2017 Dr. Shook EGD WITH BIOPSY(S) 02/13/2020 small hiatal hernia; Duggan's without dysplasia; Dr. Montoya EGD WITH BIOPSY(S) 10/06/2021 H. pylori +; Duggan's without dysplasia; Dr. Riggs EGD WITH BIOPSY(S) 09/12/2022 neg for H. pylori; Dr. Riggs LAPS SURG CHOLECYSTECTOMY W/CHOLANGIOGRAPHY 07/24/2023 PAST SURGICAL HISTORY OF 2004 Lymph Node Bx 1999 TOTAL ABDOMINAL HYSTERECT W/WO RMVL TUBE OVARY 2004 and BSO - pelvic pain/benign ALLERGIES Penicillins MEDICATIONS promethazine (PHENERGAN) 25 mg tablet Take 1 tablet by mouth every 8 hours as needed (for nausea). famotidine (PEPCID) 40 mg tablet Take 1 tablet by mouth once daily as needed. meloxicam (MOBIC) 15 mg tablet Take 1 tablet by mouth once daily. topiramate (TOPAMAX) 25 mg tablet Take 1 tablet by mouth daily at bedtime. rizatriptan (MAXALT) 10 mg tablet Take 1 tablet by mouth as directed. at onset of headache. May repeat after 2 hours. Do not exceed 30 mg per day. fluticasone (FLONASE) 50 mcg/actuation nasal spray Use 2 sprays in each nostril once daily. Rinse mouth after use. amitriptyline 150 mg tablet Take 1 tablet by mouth daily at bedtime. SODIUM CITRATE ORAL Take by mouth. ergocalciferol 50,000 unit capsule (VITAMIN D2, DRISDOL) Take 1 tablet by mouth twice weekly [id number], then decrease to 1 tablet weekly. tiZANidine (ZANAFLEX) 4 mg tablet Take 1 tablet by mouth every 8 hours as needed. atorvastatin (LIPITOR) 20 mg tablet Take 1 tablet by mouth once daily. EPINEPHrine (EPIPEN) 0.3 mg/0.3 mL auto-injector Inject intramuscularly. multivit with minerals/lutein (MULTIVITAMIN 50 PLUS ORAL) Take by mouth. IBSRELA 50 mg tablet TAKE 1 TABLET BY MOUTH TWICE A DAY 10 MINUTES BEFORE EATING diclofenac (VOLTAREN) 1 % topical gel Apply 2 g to affected area twice daily. FASENRA PEN 30 mg/mL auto-injector Dexlansoprazole (DEXILANT) 60 mg CpDM Take 60 mg by mouth once daily. magnesium hydroxide (MILK OF MAGNESIA) 400 mg/5 mL suspension Take 15 mL by mouth once daily as needed for constipation. bisacodyl (DULCOLAX, BISACODYL,) 10 mg supp 1 Suppository by RECTAL route once daily as needed for constipation. MUCUS RELIEF ER 600 mg 12 hr tablet Take 1,200 mg by mouth twice daily. montelukast (SINGULAIR) 10 mg tablet Take 1 tablet by mouth daily (more content not included)... Normal [facility] [id number] 12-16-2024 [id number] HNO ID: [id number] Author: JERRY HUSTON PT Service: ? Author Type: Physical Therapist Type: [id number] Filed: 12/16/2024 13:22 Note Text: [facility] Therapy Physical Therapy Plan of Care Certification Patient Name: Jane Steinberg : 1970 [facility] #: [id number] Date: 12/16/2024 To: Heath Mar MD From Therapist: Jerry Golias, PT RE: Patient Certification/ Recertification Your review, approval and electronic signature are required in order to comply with Payor: [employer] / Plan: [employer] MEDICARE PPO / Product Type: PPO / regulations. The identified Physical Therapy PLAN OF CARE for the patient is as follows: R29.898 RUE weakness M79.621 Axillary pain, right M25.511, G89.29 Chronic right shoulder pain M54.12 Cervical radiculopathy PLAN OF CARE: Assessment: Jane Steinberg presents with diagnosis of cervical radiculopathy that interferes with lifting, reaching overhead, sleeping (holding coffee cup) . The patient presents with impairments in ADL's, independence in exercise, overall function, posture, range of motion, strength, symptom management, and tissue tenderness. PROMIS? (Patient-Reported Outcomes Measurement Information System) scores were reviewed and identified as a rehabilitation concern. Prognosis for therapy is Good due to: current objective clinical presentation, good overall health status, good support system/ coping skills. The patient will benefit from skilled therapy services to meet the goals established for this plan of care as noted below. Goals for Episode of Care: established 12/16/24 Patient reported outcome of pain Interference will decrease T -score by a minimum of 5 points. Independent in a Home Exercise Program. Patient will decrease pain to 0/10 at rest and with functional activities to allow patient to improve reaching and lifting. Restore pain free cervical ROM to WFL to allow for improved sleeping tolerance. Sleep throughout the night without pain/symptoms. Patient will increase strength of postural muscles to WFL to allow for improve ability to maintain proper posture, improve mechanics, and decrease pain. Patient will be able to tolerate holding coffee cup, lifting and reaching without increased symptoms. Patient Goals: Alleviate pain and symptoms Time Frame for Goals and Treatment : 01/27/25 Planned Interventions, Frequency, and Duration: Current Frequency: 2x/week Duration: 6 weeks Total Number of Visits Planned: 12 Planned Treatment Interventions: Therapeutic exercise (11037), Neuromuscular re-education (93750), Manual therapy (43017), Therapeutic activities (73372), Self-fci management (80424), Patient/Family/Caregiv er Education, Body Mechanics Training PLAN FOR NEXT VISIT: Review, correct and progress HEP to tolerance. Continue with postural stretching and strengthening. Consider the use of manual therapy prn. Patient demonstrates good understanding of plan of care and treatment. The above goals and plan of care were discussed and agreed upon by patient/family. For further details regarding this patient refer to the Physical Therapy electronically documented visit dated 12/16/2024. Provider Attestation I have reviewed the treatment plan for Jane Steinberg, [facility]# [id number] for the period of 12/16/24 -- 01/27/25, established on 12/16/2024. Signature certifies the need for therapy services. Normal [facility] CNTHERAPYon 12-16-2024 CNTHERAPY OT/PT/Speech Visit (PTWS) JANE STEINBERG ([id number]) 1970 F Date Time Provider Department 12/16/24 10:00 AM JERRY HUSTON PTELIECER Date Time Provider Department Center 12/16/2024 10:00 AM [id number], BRENT PTELIECER [place] Reason for Visit: PT Eval [747] Physical Therapy [503] Visit Diagnoses:RUE weakness [R29.898] Axillary pain, right [M79.621] Chronic right shoulder pain [M25.511, G89.29] Cervical radiculopathy [M54.12] Allergies As of Date: 12/16/2024 Noted Allergy Reaction PENICILLINS 06/11/2006 10 - Anaphylaxis Date Reviewed: 11/24/2024 Reviewed by: Laura Hernandez APRN.DUMPER - Fully Assessed Prescriptions as of 12/16/2024 - topiramate (TOPAMAX) 25 mg tablet Take 1 tablet by mouth daily at bedtime. - meloxicam (MOBIC) 15 mg tablet Take 1 tablet by mouth once daily - rizatriptan (MAXALT) 10 mg tablet Take 1 tablet by mouth as directed. at onset of headache. May repeat after 2 hours. Do not exceed 30 mg per day. - fluticasone (FLONASE) 50 mcg/actuation nasal spray Use 2 sprays in each nostril once daily. Rinse mouth after use. - amitriptyline 150 mg tablet Take 1 tablet by mouth daily at bedtime. - SODIUM CITRATE ORAL Take by mouth. - promethazine (PHENERGAN) 25 mg tablet Take 1 tablet by mouth every 8 hours as needed (for nausea). - ergocalciferol 50,000 unit capsule (VITAMIN D2, DRISDOL) Take 1 tablet by mouth twice weekly [id number], then decrease to 1 tablet weekly. - tiZANidine (ZANAFLEX) 4 mg tablet Take 1 tablet by mouth every 8 hours as needed. - atorvastatin (LIPITOR) 20 mg tablet Take 1 tablet by mouth once daily. - EPINEPHrine (EPIPEN) 0.3 mg/0.3 mL auto-injector Inject intramuscularly. - multivit with minerals/lutein (MULTIVITAMIN 50 PLUS ORAL) Take by mouth. - IBSRELA 50 mg tablet TAKE 1 TABLET BY MOUTH TWICE A DAY 10 MINUTES BEFORE EATING - diclofenac (VOLTAREN) 1 % topical gel Apply 2 g to affected area twice daily. - FASENRA PEN 30 mg/mL auto-injector - Dexlansoprazole (DEXILANT) 60 mg CpDM Take 60 mg by mouth once daily. - magnesium hydroxide (MILK OF MAGNESIA) 400 mg/5 mL suspension Take 15 mL by mouth once daily as needed for constipation. - bisacodyl (DULCOLAX, BISACODYL,) 10 mg supp 1 Suppository by RECTAL route once daily as needed for constipation. - famotidine (PEPCID) 40 mg tablet Take 1 tablet by mouth once daily as needed. - MUCUS RELIEF ER 600 mg 12 hr tablet Take 1,200 mg by mouth twice daily. - montelukast (SINGULAIR) 10 mg tablet Take 1 tablet by mouth daily at bedtime. - fluticasone-umeclidin- vilanter (TRELEGY ELLIPTA) 200-62.5-25 mcg inhalation powder Inhale as instructed. - albuterol HFA (VENTOLIN HFA) 90 mcg/actuation inhaler Inhale 2 Puffs as instructed every 4 hours as needed for wheezing/shortness of breath. - L. acidophilus-L. rhamnosus 15 billion cell cap Take 1 capsule by mouth once daily. FLORAJEN WOMEN. If on antibiotic, take at least 1-2 hours before or after antibiotic. KEEP REFRIGERATED - albuterol (PROVENTIL) 2.5 mg /3 mL (0.083 %) nebulizer solution Use 3 mL via nebulizer every 6 hours as needed. - COMPACT SPACE CHAMBER as directed. - ipratropium-albuterol (DUONEB) 0.5 mg-3 mg(2.5 mg base)/3 mL nebu Inhale 3 mL as instructed every 4 hours as needed. - PULSE OXIMETER CONTEC 1 Each as needed. - Comp Stocking,Knee,Regular, Med misc 2 Each once daily. - loratadine (CLARITIN) 10 mg tablet Take 1 tablet by mouth once daily. Meds Comments as of 06/25/2021: ` Road Grader Operator: Addendum Therapy (PT/OT/Speech/Resp) ID: [id number] 12/16/2024 10:42 AM Author: JERRY HUSTON Signed by JERRY HUSTON PT on 12/16/2024 at 10:42 AM * * * This document replaces document [id number] * * * Document text: Program_ID:[id number] Access Code: [email or web address] URL: [email or web address] Date: 12-16-2024 Prepared By: Jerry Huston Program Notes Exercises - Seated Gentle Upper Trapezius Stretch - 3 x daily - 7 x weekly - sets - 3 reps - Gentle Levator Scapulae Stretch - 3 x daily - 7 x weekly - sets - 3 reps -- Normal [facility] THERAPY NTon 12-16-2024 THERAPY NT HNO ID: [id number] Author: JERRY HUSTON PT Service: ? Author Type: Physical Therapist Type: Therapy (PT/OT/Speech/Resp) Filed: 12/16/2024 10:42 Note Text: Program_ID:[id number] Access Code: [email or web address] URL: [email or web address] Date: 12-16-2024 Prepared By: Jerry Huston Program Notes Exercises - Seated Gentle Upper Trapezius Stretch - 3 x daily - 7 x weekly - sets - 3 reps - Gentle Levator Scapulae Stretch - 3 x daily - 7 x weekly - sets - 3 reps Normal [facility] CNOVon 11-24-2024 CNOV Office Visit (INTMWS ) JANE STEINBERG ([id number]) 1970 F Date Time Provider Department 11/24/24 8:40 AM LAURA HERNANDEZ INTMWS During your visit today, we recorded the following information about you: Temperature Pulse Blood pressure Weight 97.6 degrees 85/minute 122/79 54.4 kg Laura Hernandez APRN.CNP 11/24/2024 9:03 AM Signed Continue taking Zithromax as prescribed for your swollen lymph node. Begin physical therapy on Sunday as planned You are scheduled for an ultrasound in 3 months to check on the size of your lymph node as ordered by general surgeries. For your migraines and fibromyalgia pain: - Continue taking your amitriptyline before bedtime as you have been. - Start a new low-dose topiramate for migraine prevention by taking 1 pill before bed. The dose may be slowly increased if you do not feel side effects such as sleepiness, grogginess, or word-finding difficulties, and please monitor for any upset stomach or nausea. Please return for a follow-up visit in 2 weeks so we can review how you are tolerating the new medication and address any issues. Laura Hernandez APRN.CNP 11/24/2024 3:57 PM Signed CC: Patient presents with: F/U 6 Month HPI Jane Steinberg is a 53 year old female who presents today for routine follow up but has had an increase in her migraines. Recording using [employer] software for draft documentation of the visit was discussed with the patient/authorized client care representative; all questions welcomed and answered. Patient/authorized client care representative agreed to proceed Migraines: - Experiencing migraines approximately twice a week for the past 4-6 weeks. - Describes pain as stabbing and crushing, localized to the head. - Associated symptoms include nausea and emesis; denies dizziness, vision changes, confusion, weakness, or numbness. - No photophobia; denies sinus pain, pressure, or ear pain. - No history of head injuries, falls, or car accidents. - Currently taking sumatriptan (Imitrex) twice a week with minimal relief. - Uses Excedrin Migraine and Tylenol Tension for additional pain management. - Previous daily migraines reduced to twice a week. - CT of the brain last fall showed no issues. Fibromyalgia: - Taking amitriptyline before bed for pain management, reports effective control. Asthma: - Breathing reported as pretty good. - No current use of steroids; back to baseline with albuterol use. - Denies fever, chills, increased sputum production, coughing, wheezing, or increased dyspnea. Right Arm Pain: - Intermittent shooting pain in the right arm, severe enough to prevent holding objects like a coffee cup. - Recent ultrasound revealed a swollen lymph node; currently on Zithromax as ordered by general surgery - Scheduled for another ultrasound in 3 months to monitor lymph node size. - Starting physical therapy on Sunday before considering an MRI as they feel this is related to chronic neck issues. - Denies known trauma or injury. REVIEW OF SYSTEMS See HPI PAST MEDICAL HISTORY Diagnosis Date Anorexia nervosa (HCC) 06/11/2006 Stable; treated in past Anxiety Asthma (HCC) 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 02/13/2020 Bulimia nervosa 06/11/2006 Stable, treated in past Cancer (HCC) Chest pain Cholelithiasis 07/24/2023 Chronic obstructive pulmonary disease (COPD) (HCC) Emphysema lung (HCC) GERD (gastroesophageal reflux disease) H. pylori infection cronic Hiatal hernia 02/13/2020 small HISTORY OF CANCER OF UTERUS 06/11/2006 2004, Hysterectomy - complete History of COVID-19 07/10/2023 Internal hemorrhoids Lung disease Migraines Osteopenia Overweight (BMI 25.0-29.9) 07/10/2023 Snoring Tobacco use disorder 06/11/2006 Quit 09/2015. Unspecified asthma(493.90) Childhood diagnosis. VAIN (vaginal intraepithelial neoplasia) 2013 Had seen MICRO PHOTOGRAPHER ONC for abnormal pap and colp biospy of vaginal vault VAIN 2013. PAST SURGICAL HISTORY Procedure Laterality Date APPENDECTOMY 1998 COLONOSCOPY 01/12/2023 no specimens, next colonoscopy 2029 EGD WITH BIOPSY(S) 03/13/2017 Dr. Shook EGD WITH BIOPSY(S) 02/13/2020 small hiatal hernia; Duggan's without dysplasia; Dr. Montoya EGD WITH BIOPSY(S) 10/06/2021 H. pylori +; Duggan's without dysplasia; Dr. Riggs EGD WITH BIOPSY(S) 09/12/2022 neg for H. pylori; Dr. Riggs LAPChava SURG CHOLECYSTECTOMY W/CHOLANGIOGRAPHY 07/24/2023 PAST SURGICAL HISTORY OF 2003 Lymph Node Bx 1999 TOTAL ABDOMINAL HYSTERECT W/WO RMVL TUBE OVARY 2004 and BSO - pelvic pain/benign ALLERGIES Penicillins MEDICATIONS azithromycin (ZITHROMAX) 250 mg tablet Take 2 tablets by mouth once daily for 1 day, THEN 1 tablet once daily for 4 days. fluticasone (FLONASE) 50 mcg/actuation nasal spray Use 2 sprays in each nostril once daily. Rinse mouth after use. meloxicam (MOBIC) 15 mg tablet Take 1 tablet by mo (more content not included)... Normal [facility] CNOVon 11-20-2024 CNOV Office Visit (GENSWS ) JANE STEINBERG ([id number]) 1970 F Date Time Provider Department 11/20/24 8:30 AM MELANIE SHOOK During your visit today, we recorded the following information about you: Melanie Shook MD 11/20/2024 10:10 AM Signed FOLLOW UP VISIT NAME: Jane Steinberg CLINIC NO.: [id number] DATE OF SERVICE: 11/20/2024 : 1970 REFERRING PHYSICIAN: Amanda Wallace MD Jane is a patient I am following for a palpable tender lymph node and associated arm pain. Yohannes is a 53-year-old female presenting for evaluation of a tender lymph node and associated arm pain. Yohannes reports a tender lymph node and associated arm pain. She has a history of a tight neck and is experiencing pain radiating down her arm. She inquires about the possibility of a pinched nerve in her neck or a strain. She has a history of brittle bone. CT scan of the chest and axillary ultrasound were obtained which demonstrated: IMPRESSION: The lymph node in the right axilla is probably benign. Follow-up with diagnostic ultrasound is recommended in 3 months. BI-RADS Category 3: Probably Benign Interpreting Radiologist: Claire Nelson M.D. Electronically signed on: 11/18/2024 IMPRESSION: 1. Stable mildly prominent intrathoracic lymphadenopathy dating back to May 2023. 2. Peribronchial cuffing which may be seen with small airways inflammation. 3. Stable subcentimeter pulmonary nodules. VITALS: There were no vitals taken for this visit. Assessment 1. Lymphadenopathy (R59.1) Localized enlarged lymph nodes (R59.0) CT scan shows normal-sized lymph nodes without any worrisome enlargement. Ultrasound previously showed a lymph node with a slightly larger hilum, but no signs consistent with lymphoma. Tenderness suggests a reactive lymph node rather than a malignant process. - Prescribed Zithromax, 2 tablets on the first day, followed by 1 tablet daily for the next 4 days. - Ordered follow-up ultrasound in 3 months to monitor for any changes. 2. Pain in right arm (M79.601) Radiculopathy, cervical region (M54.12) No evidence of enlarged lymph nodes near the brachial plexus on CT scan. Pain is likely musculoskeletal or related to cervical radiculopathy rather than lymphadenopathy. - Recommended evaluation by musculoskeletal orthospine or neurosurgical claim benefit specialist. 3. Encounter for follow-up examination after completed treatment for conditions other than malignant neoplasm (Z09) 4. Brittle bone disease (HCC) (Q78.0) Not within my area of expertise. Diagnoses: (R59.1) Lymphadenopathy (primary encounter diagnosis) Return to Clinic: The patient is instructed to follow-up with me in 3 months, after the testing has been completed. MD Bouchra Rosales Richard T, MD 11/20/2024 10:10 AM Signed We discussed your tender lymph node and arm pain: - The chest scan and ultrasound show no concerning findings. The lymph node does not appear enlarged or abnormal, and it does not resemble a lymphoma lymph node. The radiologist recommended a follow-up ultrasound in 3 months to monitor for any changes. I have ordered this test for you. - The lymph node tenderness is likely due to a reactive process, similar to how lymph nodes respond to infections. This is not concerning at this time. - I do not recommend a biopsy of the lymph node at this point, as it appears normal and does not require removal. - I prescribed Zithromax (antibiotic) to see if it helps reduce the lymph node tenderness. Take 2 tablets on the first day, followed by 1 tablet daily for the next 4 days. This prescription has been sent to your preferred [facility] pharmacy. - If the lymph node grows or becomes more painful, please return sooner for evaluation. We discussed your arm pain: - The arm pain does not appear to be related to the lymph node. It may be due to a musculoskeletal issue, such as a pinched nerve in your neck or strain. This type of pain is often referred to as radicular pain. - I recommend discussing this further with your primary care doctor, who may refer you to a musculoskeletal or claim benefit specialist for evaluation. Physical therapy is often the first step in managing these types of symptoms. Follow-up: - Please complete the prescribed course of Zithromax. - Schedule the follow-up ultrasound in 3 months to monitor the lymph node. - If the lymph node grows, becomes more painful, or if your symptoms worsen, please return for evaluation sooner. Allergies As of Date: 11/20/2024 Noted Allergy Reaction PENICILLINS 06/11/2006 10 - Anaphylaxis Date Reviewed: 11/20/2024 Reviewed by: Johanny Vallecillo RN - Fully Assessed Reason for Visit: Follow Up [171] Cmt: US AND CT scan Primary Visit Diagnosis:Lymphadenopa thy [R59.1] Other Visit Diagnoses:Pain in right arm [M79.601 (more content not included)... Normal [facility] CT CHEST WO IVCONon 11-19-19 CT CHEST WO IVCON * * *Final Report* * * DATE OF EXAM: Nov 18 2024 8:28AM [facility] 0541 - CT CHEST WO IVCON / PROCEDURE REASON: Right axillary swelling * * * * Physician Interpretation * * * * EXAMINATION: CHEST CT WITHOUT CONTRAST CLINICAL HISTORY: Right axillary swelling Technique: Spiral CT acquisition of the chest from the thoracic inlet to the upper abdomen without contrast. MQ: CTCWO_6 CT Radiation dose: Integrated Dose-length product (DLP) for this visit = 182 mGy*cm CT Dose Reduction Employed: Automated exposure control(AEC) and iterative recon Comparison: CT chest dated 06/04/2020 RESULT: Limitations: None. Lines, tubes, and devices: None. Lung parenchyma and airways: Stable right greater than left biapical pleural-parenchymal scarring. Stable subcentimeter pulmonary nodules with client care representative measurements of a few as follows. Stable 3 mm right apical pulmonary nodule (6, 43). Stable 3 mm right lower lobe subpleural nodule (6, 82). Stable small cluster of less than 5 mm groundglass nodules in the periphery of the anterior right upper lobe (6, 92). Stable 3 to 4 mm right lower lobe subpleural nodule (6, 110). Stable nonspecific 6 mm groundglass opacity in the subpleural right middle lobe (6, 145). Several additional stable subcentimeter pulmonary nodules. No new or enlarging suspicious pulmonary nodules. Few stable scattered thin-walled cysts. Peribronchial cuffing which may be seen with small airways inflammation. Minimal dependent atelectasis. Pleural space: No pleural effusion. No pleural thickening. Lower neck, lymph nodes, and mediastinum: The imaged thyroid gland is normal. There are stable mildly prominent bilateral axillary and mediastinal lymph nodes dating back to May 2023 with client care representative measurements as follows. A stable superior right axillary lymph node with preservation of a fatty hilum measures 8 mm (5, 47). An additional stable right axillary lymph node measures 0.6 x 1.1 cm (5, 61). A stable left axillary/subpectoral lymph node measures 8 mm (5, 42). A stable prevascular lymph node measures 0.5 x 1.0 cm. A stable precarinal lymph node measures 0.6 x 1.0 cm. A stable right anterior mediastinal lymph node measures 1.1 x 0.9 cm. No new or enlarging suspect intrathoracic lymphadenopathy.. Heart, pericardium, and thoracic vessels: The thoracic aorta and main pulmonary artery are normal in caliber. The cardiac chambers are normal in size. No coronary artery atherosclerotic calcifications are noted, although the study is not optimized for coronary assessment. No pericardial effusion or thickening. Bones and soft tissues: No destructive bone lesion. Chest wall is unremarkable. Upper abdomen: Prior cholecystectomy. No additional abnormality in the imaged upper abdomen within the limits of noncontrast technique. Localizer images: No additional findings. IMPRESSION: 1. Stable mildly prominent intrathoracic lymphadenopathy dating back to May 2023. 2. Peribronchial cuffing which may be seen with small airways inflammation. 3. Stable subcentimeter pulmonary nodules. Certified Orthotic Fitter: [facility] Transcribe Date/Time: Nov 18 2024 8:36A Dictated by : KANWAL SANDRA MD This examination was interpreted and the report reviewed and electronically signed by: KANWAL SANDRA MD on Nov 18 2024 8:58AM EST [id number] Normal [facility] CT Chest WO contraston 11-18 Addendum by Provider , [facility] [place] on 11/18/2024 8:58 AM EDT * * *Final Report* * * DATE OF EXAM: Nov 18 2024 8:28AM [facility] 0541 - CT CHEST WO IVCON / PROCEDURE REASON: Right axillary swelling * * * * Physician Interpretation * * * * EXAMINATION: CHEST CT WITHOUT CONTRAST CLINICAL HISTORY: Right axillary swelling Technique: Spiral CT acquisition of the chest from the thoracic inlet to the upper abdomen without contrast. MQ: CTCWO_6 CT Radiation dose: Integrated Dose-length product (DLP) for this visit = 182 mGy*cm CT Dose Reduction Employed: Automated exposure control(AEC) and iterative recon Comparison: CT chest dated 06/04/2020 RESULT: Limitations: None. Lines, tubes, and devices: None. Lung parenchyma and airways: Stable right greater than left biapical pleural-parenchymal scarring. Stable subcentimeter pulmonary nodules with client care representative measurements of a few as follows. Stable 3 mm right apical pulmonary nodule (6, 43). Stable 3 mm right lower lobe subpleural nodule (6, 82). Stable small cluster of less than 5 mm groundglass nodules in the periphery of the anterior right upper lobe (6, 92). Stable 3 to 4 mm right lower lobe subpleural nodule (6, 110). Stable nonspecific 6 mm groundglass opacity in the subpleural right middle lobe (6, 145). Several additional stable subcentimeter pulmonary nodules. No new or enlarging suspicious pulmonary nodules. Few stable scattered thin-walled cysts. Peribronchial cuffing which may be seen with small airways inflammation. Minimal dependent atelectasis. Pleural space: No pleural effusion. No pleural thickening. Lower neck, lymph nodes, and mediastinum: The imaged thyroid gland is normal. There are stable mildly prominent bilateral axillary and mediastinal lymph nodes dating back to May 2023 with client care representative measurements as follows. A stable superior right axillary lymph node with preservation of a fatty hilum measures 8 mm (5, 47). An additional stable right axillary lymph node measures 0.6 x 1.1 cm (5, 61). A stable left axillary/subpectoral lymph node measures 8 mm (5, 42). A stable prevascular lymph node measures 0.5 x 1.0 cm. A stable precarinal lymph node measures 0.6 x 1.0 cm. A stable right anterior mediastinal lymph node measures 1.1 x 0.9 cm. No new or enlarging suspect intrathoracic lymphadenopathy.. Heart, pericardium, and thoracic vessels: The thoracic aorta and main pulmonary artery are normal in caliber. The cardiac chambers are normal in size. No coronary artery atherosclerotic calcifications are noted, although the study is not optimized for coronary assessment. No pericardial effusion or thickening. Bones and soft tissues: No destructive bone lesion. Chest wall is unremarkable. Upper abdomen: Prior cholecystectomy. No additional abnormality in the imaged upper abdomen within the limits of noncontrast technique. Localizer images: No additional findings. IMPRESSION: 1. Stable mildly prominent intrathoracic lymphadenopathy dating back to May 2023. 2. Peribronchial cuffing which may be seen with small airways inflammation. 3. Stable subcentimeter pulmonary nodules. Certified Orthotic Fitter: G[employer]NA Transcribe Date/Time: Nov 18 2024 8:36A Dictated by : KANWAL SANDRA MD This examination was interpreted and the report reviewed and electronically signed by: KANWAL SANDRA MD on Nov 18 2024 8:58AM EST [facility] Radiology Study observation [facility]narrative[facility] Chest WO contrastOrdered By: [facility] Provider on 11-18-2024 [facility] US AXILLA ONLY RTon 11-06 [facility] US AXILLA ONLY RT * * *Final Report* * * DATE OF EXAM: Nov 18 2024 9:01AM [facility] [id number] - [facility] US AXILLA ONLY RT / PROCEDURE REASON: Right axillary swelling * * * * Physician Interpretation * * * * [address] [address] [place] [address] #[id number] - [facility] US AXILLA ONLY RT HISTORY: 53 year-old patient seen for diagnostic evaluation of a palpable abnormality in the right breast. Patient states no personal history of breast cancer. The patient has a family history of breast cancer. COMPARISON STUDIES: The present examination has been compared to prior imaging studies dated 05/16/2023 (ultrasound), 10/09/2023 (mammogram), 10/09/2023 (ultrasound) and 10/31/2024 (mammogram). ULTRASOUND TECHNIQUE: Targeted ultrasound of the indicated area was performed. Pena scale images were saved. ULTRASOUND FINDINGS: There is a 1.2 cm lymph node in the right axilla. This lymph node demonstrates uniform borderline cortical thickening of 3 mm. Fatty hilus is intact. This is likely an incidental finding. No discrete sonographic abnormality for the area of palpable concern in the right axilla. Further management should be based on clinical assessment. IMPRESSION: The lymph node in the right axilla is probably benign. Follow-up with diagnostic ultrasound is recommended in 3 months. BI-RADS Category 3: Probably Benign Interpreting Radiologist: Claire Nelson M.D. Electronically signed on: 11/18/2024 Certified Orthotic Fitter: JAN Transcribe Date/Time: Nov 18 2024 8:43A Dictated by : CLAIRE NELSON MD This examination was interpreted and the report reviewed and electronically signed by: CLAIRE NELSON MD on Nov 18 2024 9:12AM EST [id number] Normal [facility] US Axilla - righton 11-19-19 IMPRESSION: The lymph node in the right axilla is probably benign. Follow-up with diagnostic ultrasound is recommended in 3 months. BI-RADS Category 3: Probably Benign Interpreting Radiologist: Claire Nelson M.D. Electronically signed on: 11/18/2024 Certified Orthotic Fitter: JAN Transcribe Date/Time: Nov 18 2024 8:43A Dictated by : CLAIRE NELSON MD This examination was interpreted and the report reviewed and electronically signed by: CLAIRE NELSON MD on Nov 18 2024 9:12AM [facility] DIVISION OF RADIOLOGY * * *Final Report* * * DATE OF EXAM: Nov 18 2024 9:01AM [facility] 0592 - [facility] US AXILLA ONLY RT / PROCEDURE REASON: Right axillary swelling * * * * Physician Interpretation * * * * [place] [address] #[id number] - [facility] US AXILLA ONLY RT HISTORY: 53 year-old patient seen for diagnostic evaluation of a palpable abnormality in the right breast. Patient states no personal history of breast cancer. The patient has a family history of breast cancer. COMPARISON STUDIES: The present examination has been compared to prior imaging studies dated 05/16/2023 (ultrasound), 10/09/2023 (mammogram), 10/09/2023 (ultrasound) and 10/31/2024 (mammogram). ULTRASOUND TECHNIQUE: Targeted ultrasound of the indicated area was performed. Pena scale images were saved. ULTRASOUND FINDINGS: There is a 1.2 cm lymph node in the right axilla. This lymph node demonstrates uniform borderline cortical thickening of 3 mm. Fatty hilus is intact. This is likely an incidental finding. No discrete sonographic abnormality for the area of palpable concern in the right axilla. Further management should be based on clinical assessment. DIVISION OF RADIOLOGY Provider, [facility] - 11/18/2024 * * *Final Report* * * DATE OF EXAM: Nov 18 2024 9:01AM [facility] [id number] - [facility] US AXILLA ONLY RT / PROCEDURE REASON: Right axillary swelling * * * * Physician Interpretation * * * * [address] [address] [place] [address] #[id number] - [facility] US AXILLA ONLY RT HISTORY: 53 year-old patient seen for diagnostic evaluation of a palpable abnormality in the right breast. Patient states no personal history of breast cancer. The patient has a family history of breast cancer. COMPARISON STUDIES: The present examination has been compared to prior imaging studies dated 05/16/2023 (ultrasound), 10/09/2023 (mammogram), 10/09/2023 (ultrasound) and 10/31/2024 (mammogram). ULTRASOUND TECHNIQUE: Targeted ultrasound of the indicated area was performed. Pena scale images were saved. ULTRASOUND FINDINGS: There is a 1.2 cm lymph node in the right axilla. This lymph node demonstrates uniform borderline cortical thickening of 3 mm. Fatty hilus is intact. This is likely an incidental finding. No discrete sonographic abnormality for the area of palpable concern in the right axilla. Further management should be based on clinical assessment. IMPRESSION IMPRESSION: The lymph node in the right axilla is probably benign. Follow-up with diagnostic ultrasound is recommended in 3 months. BI-RADS Category 3: Probably Benign Interpreting Radiologist: Claire Nelson M.D. Electronically signed on: 11/18/2024 Certified Orthotic Fitter: JAN Transcribe Date/Time: Nov 18 2024 8:43A Dictated by : CLAIRE NELSON MD This examination was interpreted and the report reviewed and electronically signed by: CLAIRE NELSON MD on Nov 18 2024 9:12AM EST [facility] Radiology Study observation (narrative) [facility] [facility] US Axilla - rightOrdered By: Ccf Provider on 11-18-2024 [facility] Basic metabolic 2000 panelon 11-06-2024 Anion gap [Moles/Vol] 11 mmol/L Normal 8-15 [facility] Comment on above: Order Comment: Speci men Type: BLOOD SPECIMENOrdering Facility: [facility] Address: [address] [place] [address] Performed By: #### 2 4321-2 ####[facility] LABCLIA [id number] [address] [place] [address] [place] Calcium [Mass/Vol] 9.2 mg/dL Normal 8.5-10.2 [facility] Comment on above: Order Comment: Speci men Type: BLOOD SPECIMENOrdering Facility: [facility] Address: [address] [place], [place] [id number] Performed By: #### 2 4321-2 ####[facility] LABCLIA [id number] [address] [place] [address] [place] Chloride [Moles/Vol] 104 mmol/L Normal 98-107 [facility] Comment on above: Order Comment: Speci men Type: BLOOD SPECIMENOrdering Facility: [facility] Address: [address] [place] [address] Performed By: #### 2 4321-2 ####[facility] LABCLIA [id number] [place] [id number] [place] CO2 [Moles/Vol] 26 mmol/L Normal 22-30 [facility] Comment on above: Order Comment: Speci men Type: BLOOD SPECIMENOrdering Facility: [facility] Address: [address] [place] [address] Performed By: #### 2 4321-2 ####[facility] LABCLIA [id number] [place] [id number] [place] Creatinine [Mass/Vol] 0.85 mg/dL Normal 0.58-0.96 [facility] Comment on above: Order Comment: Speci men Type: BLOOD SPECIMENOrdering Facility: [facility] Address: [address] [place] [address] Performed By: #### 2 4321-2 ####[facility] LABCLIA [id number] [address] [address] [place] Creatinine and Glomerular filtration rate.predicted panel (S/P/Bld) 82 mL/min/1.73m??? Normal >=60 [facility] Comment on above: Order Comment: Sonja tom Type: BLOOD SPECIMENOrdering Facility: [facility] Address: [address] [place] [address] Result Comment: Ledy mated Glomerular Filtration Rate (eGFR) is calculated using the 2020 CKD-EPI creatinine equation. This equation utilizes serum creatinine, sex, and age as parameters. The creatinine assay has traceable calibration to isotope dilution-mass spectrometry. Refer to KDIGO guidelines for clinical interpretation. In patients with unstable renal function, e.g. those with acute kidney injury, the eGFR may not accurately reflect actual GFR. Performed By: #### 2 4321-2 ####[facility] LABIA [id number] [place] [address] [place] Glucose [Mass/Vol] 100 mg/dL High 74-99 [facility] Comment on above: Order Comment: Sonja tom Type: BLOOD SPECIMENOrdering Facility: [facility] Address: [address] [place] [address] Result Comment: The [place] Diabetes Association (ADA) provides guidance for cutoff values for fasting glucose and random glucose. The ADA defines fasting as no caloric intake for at least 8 hours. Fasting plasma glucose results between 100 to 125 mg/dL indicate increased risk for diabetes (prediabetes). Fasting plasma glucose results greater than or equal to 126 mg/dL meet the criteria for diagnosis of diabetes. In the absence of unequivocal hyperglycemia, results should be confirmed by repeat testing. In a patient with classic symptoms of hyperglycemia or hyperglycemic crisis, random plasma glucose results greater than or equal to 200 mg/dL meet the criteria for diagnosis of diabetes. Reference: Standards of Medical Care in Diabetes 2016, [place] Diabetes Association. Diabetes Care. 2016.39(Suppl 1). Performed By: #### 2 4321-2 ####[facility] LABIA [id number] [place] [address] [place] Potassium [Moles/Vol] 4.3 mmol/L Normal 3.7-5.1 [facility] [place] Comment on above: Order Comment: Sonja tom Type: BLOOD SPECIMENOrdering Facility: [facility] Address: [address] [place] [address] Performed By: #### 2 4321-2 ####[facility] LABCLIA [id number] [place] [id number] [place] Sodium [Moles/Vol] 141 mmol/L Normal 136-144 [facility] Comment on above: Order Comment: Speci men Type: BLOOD SPECIMENOrdering Facility: [facility] Address: [address] [place] [address] Performed By: #### 2 4321-2 ####[facility] LABCLIA [id number] [address], [facility] [place] Urea nitrogen [Mass/Vol] 12 mg/dL Normal 7-21 [facility] Comment on above: Order Comment: Speci men Type: BLOOD SPECIMENOrdering Facility: [facility] Address: [address] [place] [address] Performed By: #### 2 4321-2 ####[facility] LABCLIA [id number] [place] [address] [place] CBC panel Auto (Bld)on 11-06 Erythrocyte distribution width (RBC) [Ratio] 13.4 % Normal 11.5-15.0 [facility] Comment on above: Order Comment: Speci men Type: BLOOD SPECIMENOrdering Facility: [facility] Address: [address] [place] [address] Performed By: #### 5 8410-2 ####[facility] LABCLIA [id number] [place] [id number] [place] Hematocrit (Bld) [Volume fraction] 45.0 % Normal 36.0-46.0 [facility] Comment on above: Order Comment: Speci men Type: BLOOD SPECIMENOrdering Facility: [facility] Address: [address] [place] [address] Performed By: #### 5 8410-2 ####[facility] LABCLIA [id number] [place] [id number] [place] Hemoglobin (Bld) [Mass/Vol] 14.4 g/dL Normal 11.5-15.5 [facility] Comment on above: Order Comment: Speci men Type: BLOOD SPECIMENOrdering Facility: [facility] Address: [address] [place] [address] Performed By: #### 5 8410-2 ####[facility] LABCLIA [id number] [place] [address] [place] MCH (RBC) [Entitic mass] 28.3 pg Normal 26.0-34.0 [facility] Comment on above: Order Comment: Speci men Type: BLOOD SPECIMENOrdering Facility: [facility] Address: [address] [place] [address] Performed By: #### 5 8410-2 ####[facility] LABIA [id number] [address] [place] MCHC (RBC) [Mass/Vol] 32.0 g/dL Normal 30.5-36.0 [facility] Comment on above: Order Comment: Speci men Type: BLOOD SPECIMENOrdering Facility: [facility] Address: [address] [place] [address] Performed By: #### 5 8410-2 ####[facility] LABIA [id number] [address] [place] MCV (RBC) [Entitic vol] 88.4 fL Normal 80.0-100.0 C [facility] Comment on above: Order Comment: Speci men Type: BLOOD SPECIMENOrdering Facility: [facility] Address: [address] [place] [address] Performed By: #### 5 8410-2 ####[facility] LABIA [id number] [place] [address] [place] Nucleated RBC (Bld) [#/Vol] 10*3/uL Normal <0.01 [facility] Comment on above: Order Comment: Speci men Type: BLOOD SPECIMENOrdering Facility: [facility] Address: [address] [place] [address] Performed By: #### 5 8410-2 ####[facility] LABIA [id number] [place] [address] [place] Platelet mean volume (Bld) [Entitic vol] 11.5 fL Normal 9.0-12.7 [facility] Comment on above: Order Comment: Speci men Type: BLOOD SPECIMENOrdering Facility: [facility] Address: [address] [place] [address] Performed By: #### 5 8410-2 ####[facility] LABIA [id number] [place] [address] [place] Platelets (Bld) [#/Vol] 404 10*3/uL High 150-400 [facility] Comment on above: Order Comment: Speci men Type: BLOOD SPECIMENOrdering Facility: [facility] Address: [address] [place] [address] Performed By: #### 5 8410-2 ####[facility] LABIA [id number] [place] [address] [place] RBC (Bld) [#/Vol] 5.09 10*6/uL Normal 3.90-5.20 [facility] Comment on above: Order Comment: Speci men Type: BLOOD SPECIMENOrdering Facility: [facility] Address: [address] [place] [address] Performed By: #### 5 8410-2 ####[facility] LABIA [id number] [place] [address] [place] WBC (Bld) [#/Vol] 7.67 10*3/uL Normal 3.70-11.00 [facility] Comment on above: Order Comment: Speci men Type: BLOOD SPECIMENOrdering Facility: [facility] Address: [address] [place] [address] Performed By: #### 5 8410-2 ####[facility] [place] [id number] ROSEANN HU [address] [place] CNOVon 11-06-2024 CNOV Office Visit (GENSWS ) MARYANJANE SHELLEY ([id number]) 1970 F Date Time Provider Department 11/06/24 3:00 PM MELANIE SHOOK GENSWS During your visit today, we recorded the following information about you: Pulse Respiration Blood pressure Weight 78/minute 14/minute 123/81 55.2 kg Felicita Huffman RN 11/08/2024 7:37 AM Signed REVIEW OF SYSTEMS: General: The patient denies fatigue, denies weight loss, denies weight gain, denies feeling hot, and denies feelings of cold. Eyes: The patient denies glaucoma, denies eye injury/surgery, does not wear glasses or contacts. Ear/Nose/Throat: The patient notes allergies, denies hayfever, denies ear infections, and denies bloody noses. Cardiovascular: The patient denies chest pain, denies heart disease, denies high blood pressure,denies cardiac stent, denies prior heart attack, denies irregular heart beat, denies high cholesterol, denies poor circulation, denies heart failure, other cardiac issues, denies claudication, denies cold feet, denies peripheral arterial stent. Respiratory: The patient denies tuberculosis, denies pneumonia, notes frequent cough, denies pulmonary embolism, notes shortness of breath, and denies coughing up blood. Gastrointestinal: The patient denies difficulty swallowing, notes acid reflux, denies ulcers, denies vomiting, denies jaundice/hepatitis, denies gallbladder problems, denies black or tarry stools, denies hemorrhoids, denies bleeding from rectum, denies diverticulitis, denies constipation, denies diarrhea, denies loss of stool control, and denies hernias. Kidney/Bladder: The patient denies kidney stones, denies urine infections, and denies bloody urine. Skin: The patient denies a history of skin cancer, denies bleeding/changing moles, and denies a history of skin rash. Neurologic: The patient denies a history of epilepsy/convulsions, denies headaches, denies head/spinal injuries, and denies stroke/TIA. Psychiatric: The patient denies psychiatric medications, denies depression, and denies voices, denies substance abuse. Endocrine: The patient denies thyroid disorders, denies diabetes, and denies hormonal problems. Hematologic: The patient denies a history of bruising, denies bleeding, and denies anemia, denies blood clots. Infections: The patient denies a history of measles and mumps, denies rheumatic fever, and denies sexually transmitted diseases. Musculoskeletal: The patient denies back pain/injury, denies back problems, denies sciatica, denies knee/foot trouble, denies arthritis, or denies gout. When was patient's last Mammogram screening? 11/01/24 Last Colonoscopy: 2022 KIRK Guo Richard T, MD 11/06/2024 3:35 PM Signed We discussed the lumps in your armpits: - I will order a new ultrasound of your right armpit to evaluate the lymph node that appears abnormal. This will help us determine the next steps. - I have also ordered a CT scan of your chest to check for any other abnormal lymph nodes. This has been marked as a priority (stat) to expedite results. - Once the ultrasound and CT scan are completed, please schedule a follow-up appointment with me a couple of days after both tests are done. At that visit, I will review the results and perform a biopsy of the lymph node if necessary. - If a biopsy is needed, I will numb the area with lidocaine, which may burn for 10-15 seconds. After that, the area should be numb, and I will use a needle to take a small tissue sample from the lymph node. This procedure is typically painless, but there may be minor discomfort if a small nerve is nearby. We discussed the importance of determining the cause of the abnormal lymph node: - Removing the lymph node is not the first step. It is important to biopsy the node to understand what is causing the abnormality. This will guide the appropriate treatment plan. - Based on the imaging and biopsy results, we will determine whether further treatment is needed. Next steps: - Complete the ultrasound and CT scan as soon as possible. - Schedule a follow-up appointment with me a few days after the tests are completed to review the results and discuss the plan moving forward. Please let me know if you have any questions or concerns before your next visit. Melanie Shook MD 11/08/2024 7:37 AM Signed HISTORY AND PHYSICAL Jane Steinberg 1970 REFERRING PHYSICIAN: Deep Ramires APRN.DUMPER CHIEF COMPLAINT: Consult (Bilat axillary swelling. R>L has gotten worse and more painful over the past few months) HPI:Yohannes is a 53-year-old female presenting with bilateral axillary masses. Yohannes reports bilateral axillary masses, with the right side being more prominent. An ultrasound was performed approximately one year ago, which reportedly showed no abnormalities. However, Yohannes notes that the masses have become p (more content not included)... Normal [facility] CNOV Office Visit (INTMWS ) JANE STEINBERG ([id number]) 1970 F Date Time Provider Department 11/06/24 7:20 AM LAURA HERNANDEZ INTMWS During your visit today, we recorded the following information about you: Pulse Respiration Blood pressure Weight 84/minute 16/minute 128/84 54.9 kg Laura Hernandez APRN.DUMPER 11/06/2024 7:34 AM Signed Continue using your albuterol inhaler as needed (approximately every 4-6 hours) since that is your baseline for managing breathlessness. Continue using Trelegy as prescribed for your COPD maintenance. Keep your windows shut to avoid triggers. If you notice a return of increased shortness of breath, wheezing, or a change in your cough, please contact your rug sample beveler or our office. Attend your scheduled rug sample beveler appointment later this month. Follow up with the specialist evaluating the recurring arm lumps as recommended. Laura Hernandez APRN.DUMPER 11/06/2024 7:41 AM Signed CC: Patient presents with: Recheck: 1 week follow up HPI Jane Steinberg is a 53 year old female who presents today for follow up on copd exacerbation. Recording using [employer] software for draft documentation of the visit was discussed with the patient/authorized client care representative; all questions welcomed and answered. Patient/authorized client care representative agreed to proceed COPD: - seen last week for exacerbation and treated with a burst of steroids and a Z-Neema; both completed. - Significant improvement in symptoms since last week, including dyspnea, wheezing, and a tight cough. - Using albuterol inhaler every 4-6 hours, consistent with baseline usage. - Reports nocturnal wheezing, present before the exacerbation. - Denies fever, chills, chest pain, sinus pressure, or otalgia. - Keeping windows shut to avoid allergens. - Follow-up with rug sample beveler scheduled for this month. - Currently on Trelegy and taking medications as ordered. REVIEW OF SYSTEMS See HPI PAST MEDICAL HISTORY Diagnosis Date Anorexia nervosa (HCC) 06/11/2006 Stable; treated in past Anxiety Asthma (HCC) 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 02/13/2020 Bulimia nervosa 06/11/2006 Stable, treated in past Cancer (HCC) Chest pain Cholelithiasis 07/24/2023 Chronic obstructive pulmonary disease (COPD) (HCC) Emphysema lung (HCC) GERD (gastroesophageal reflux disease) H. pylori infection cronic Hiatal hernia 02/13/2020 small HISTORY OF CANCER OF UTERUS 06/11/2006 2004, Hysterectomy - complete History of COVID-19 07/10/2023 Internal hemorrhoids Lung disease Migraines Osteopenia Overweight (BMI 25.0-29.9) 07/10/2023 Snoring Tobacco use disorder 06/11/2006 Quit 09/2015. Unspecified asthma(493.90) Childhood diagnosis. VAIN (vaginal intraepithelial neoplasia) 2013 Had seen MICRO PHOTOGRAPHER ONC for abnormal pap and colp biospy of vaginal vault VAIN 2013. PAST SURGICAL HISTORY Procedure Laterality Date APPENDECTOMY 1998 COLONOSCOPY 01/12/2023 no specimens, next colonoscopy 2029 EGD WITH BIOPSY(S) 03/13/2017 Dr. Shook EGD WITH BIOPSY(S) 02/13/2020 small hiatal hernia; Duggan's without dysplasia; Dr. Montoya EGD WITH BIOPSY(S) 10/06/2021 H. pylori +; Duggan's without dysplasia; Dr. Riggs EGD WITH BIOPSY(S) 09/12/2022 neg for H. pylori; Dr. Riggs LAPChava SURG CHOLECYSTECTOMY W/CHOLANGIOGRAPHY 07/24/2023 PAST SURGICAL HISTORY OF 2004 Lymph Node Bx 1999 TOTAL ABDOMINAL HYSTERECT W/WO RMVL TUBE OVARY 2004 and BSO - pelvic pain/benign ALLERGIES Penicillins MEDICATIONS predniSONE (DELTASONE) 20 mg tablet Take 2 tablets by mouth once daily. fluticasone (FLONASE) 50 mcg/actuation nasal spray Use 2 sprays in each nostril once daily. Rinse mouth after use. meloxicam (MOBIC) 15 mg tablet Take 1 tablet by mouth once daily. SUMAtriptan (IMITREX) 50 mg tablet Take 1 tablet by mouth as needed for migraine headache (see administration instructions) (at onset of headache. May repeat after 2 hours.). May repeat dose after 2 hours if needed. Maximum daily dose is 200 mg per day. amitriptyline 150 mg tablet Take 1 tablet by mouth daily at bedtime. SODIUM CITRATE ORAL Take by mouth. promethazine (PHENERGAN) 25 mg tablet Take 1 tablet by mouth every 8 hours as needed (for nausea). ergocalciferol 50,000 unit capsule (VITAMIN D2, DRISDOL) Take 1 tablet by mouth twice weekly [id number], then decrease to 1 tablet weekly. tiZANidine (ZANAFLEX) 4 mg tablet Take 1 tablet by mouth every 8 hours as needed. atorvastatin (LIPITOR) 20 mg tablet Take 1 tablet by mouth once daily. EPINEPHrine (EPIPEN) 0.3 mg/0.3 mL auto-injector Inject intramuscularly. multivit with minerals/lutein (MULTIVITAMIN 50 PLUS ORAL) Take by mouth. IBSRELA 50 mg tablet TAKE 1 TABLET BY MOUTH TWICE A DAY 10 MINUTES BEFORE EATING diclofenac (VOLTAREN) 1 % topical gel Apply 2 g to affected area twice daily. FASENRA PEN 30 mg/mL auto-injector Dexla (more content not included)... Normal [facility] CNOVon 10-31-2024 CNOV Office Visit (OBGYWM ) STEINBERGJANE ZAVALETA ([id number]) 1970 F Date Time Provider Department 10/31/24 2:00 PM DEEP RAMIRES During your visit today, we recorded the following information about you: Blood pressure Weight Height 120/70 54.9 kg 1.58 m Deep Ramires APRN.CNP 10/31/2024 1:56 PM Signed Fur Farmer offered: Patient declines. Yohannes is a 53 year old who presents for an annual gynecologic exam with complaints, vaginal dryness. Postmenopausal: Yes HRT use: No. Still get period: No LMP: unknown Menopause symptoms: Vaginal dryness Time with current partner: 14 years Number of lifetime partners: 4 control frequency: Never Contraception: hysterectomy, benign HPV vaccine: Unsure; Last pap smear: 10/28/2023 History of abnormal pap: Yes, history of abnormal PAP smears. History of VAIN 2013. Has had normal paps 2023, 2020, 2019 Bothersome pelvic pain: No Last mammogram: 10/2024 pending History of abnormal mammogram: Yes , follow up benign OB History Gravida3 Para2 Term2 Preterm0 AB1 Living2 SAB1 IAB0 Ectopic0 Multiple0 Live Births0 Comment: 2 vaginal deliveries FAMILY HISTORY Problem Relation Age of Onset Hypertension Mother Heart Mother Eczema Mother other (AAA) Mother other (Fibromyalgia) Mother Alcohol/Drug Father Alcohol Cancer Father lung Colon Cancer Father Hypertension Sister Asthma Sister other (Migraines) Sister other (Gout) Sister other (Fibromyalgia) Sister Cancer Sister 32 Ovarian cancer Sister 32 Breast Cancer Maternal Aunt 2 maternal aunts. Stomach Cancer Maternal Aunt 70 - 79 other (MICRO PHOTOGRAPHER cancer) No Family History Anesthesia Problems No Family History Blood Clots No Family History SOCIAL HISTORY Social History Tobacco Use Smoking status: Every Day Current packs/day: 0.00 Average packs/day: 0.3 packs/day for 35.0 years (8.8 ttl pk-yrs) Types: Cigarettes Start date: 11/17/1986 Last attempt to quit: 11/23/2021 Years since quittin.9 Smokeless tobacco: Never Vaping Use Vaping status: Never Used Substance Use Topics Alcohol use: Not Currently Comment: Rarely Drug use: No REVIEW OF SYSTEMS Abdomen: No abdominal pain, nausea, vomiting, diarrhea, or constipation. No bloating, early satiety, indigestion, or increased flatulence. Bladder: No dysuria, gross hematuria, urinary frequency, urinary urgency, or incontinence Breast: No breast lumps, nipple d/c, overlying skin changes, redness or skin retraction Allergies and current medication updated:Yes SENSITIVE EXAM: The sensitive examination was discussed with the Patient or Patient's Authorized Eap Counselor. As applicable, any other physician, advance practice provider, medical student, or other health professional student that will be observing or involved in the sensitive examination for educational or training purposes was discussed with the Patient or Authorized Eap Counselor. The Patient or Authorized Eap Counselor has agreed to proceed with the sensitive examination. (Sensitive examination includes inspection and/or palpation of the breasts, pelvis, prostate and anorectal regions). EXAM: BP 120/70 Ht 5' 2.205 (1.58m) Wt 121 lb (54.9kg) BMI 21.99 kg/(m2). GENERAL: pleasant, female in no apparent distress HEENT: Normocephalic, atraumatic, mucus membranes moist, and no lesions NECK: Supple, full range of motion, no adenopathy, and thyroid normal DERMATOLOGY: Normal, without lesions, non-icteric, and non-hirsute BREAST: soft, non-tender, symmetric, no dominant mass, normal nipple-areolar complex, and no nipple discharge + swelling noted to right axilla CHEST: Normal inspiratory effort ABDOMEN: soft, non-tender, and no masses PELVIC: external genitalia normal, normal Bartholin's glands, urethra, [place]'s glands, no vulvar lesions, good vaginal support, physiologic discharge present, normal appearing perineal body and perianal region, cervix surgically absent BIMANUAL: no adnexal masses, non-tender, and uterus surgically absent RECTOVAGINAL: deferred. NEURO: alert and oriented x3,exam grossly non-focal EXTREMITIES: normal ASSESSMENT/PLAN: 1) Health maintenance: Pap/HPV up to date 2023. Mammogram ordered Mammogram up to date Nutrition, exercise and routine health maintenance exams reviewed. Calcium/Vitamin D supplementation information provided. Smoking cessation: Smoking cessation encouraged and resources provided. Colon cancer screening: up to date with screening TSH/lipids/glucose: followed by PCP BMD: followed by PCP 2) Follow up one year or sooner as needed Family history of ovarian cancer - ICD9: V16.41, ICD10: Z80.41 Family history of breast cancer - ICD9: V16.3, ICD10: Z80.3 - CONSULT TO MEDICAL GENETICS - GENERAL - CONSULT TO BREAST CTR HEREDITARY HIGH RISK Right axillary swelling - ICD9: 729.8 (more content not included)... Normal [facility] CNOV Office Visit (INTMWS ) STEINBERGJANE ZAVALETA ([id number]) 1970 F Date Time Provider Department 10/31/24 7:00 AM LAURA HERNANDEZ INTKARO During your visit today, we recorded the following information about you: Temperature Pulse Respiration Blood pressure 96.8 degrees 71/minute 16/minute 132/82 Weight 54.4 kg Laura Hernandez APRN.CNP 10/31/2024 12:22 PM Signed CC: Patient presents with: Chest Congestion: Chest congestion, wheezing x 3 days HPI Jane Steinberg is a 53 year old female who presents today for copd exacerbation. Recording using [employer] software for draft documentation of the visit was discussed with the patient/authorized client care representative; all questions welcomed and answered. Patient/authorized client care representative agreed to proceed COPD: - Increased wheezing and dyspnea x3 days. - No known triggers; denies recent outdoor exposure or contact with sick individuals. - Windows open in the house. - Denies fever, chills, or body aches. - Increased cough, but minimal sputum production. - Using albuterol inhaler every few hours. - Taking Claritin and montelukast daily; no current use of Flonase. - Some nasal drainage; denies sneezing, sinus congestion, or itchy/watery eyes. - Denies chest pressure or swelling; reports back pain associated with breathing and coughing. - Last steroid use was about a month ago, a quick burst. - Took doxycycline in July. - Smokes 4-5 cigarettes per day. - Allergic to penicillin. REVIEW OF SYSTEMS See HPI PAST MEDICAL HISTORY Diagnosis Date Anorexia nervosa (HCC) 06/11/2006 Stable; treated in past Anxiety Asthma (HCC) 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 02/13/2020 Bulimia nervosa 06/11/2006 Stable, treated in past Cancer (HCC) Chest pain Cholelithiasis 07/24/2023 Chronic obstructive pulmonary disease (COPD) (HCC) Emphysema lung (HCC) GERD (gastroesophageal reflux disease) H. pylori infection cronic Hiatal hernia 02/13/2020 small HISTORY OF CANCER OF UTERUS 06/11/20062003, Hysterectomy - complete History of COVID-19 07/10/2023 Internal hemorrhoids Lung disease Migraines Overweight (BMI 25.0-29.9) 07/10/2023 Snoring Tobacco use disorder 06/11/2006 Quit 09/2015. Unspecified asthma(493.90) Childhood diagnosis. PAST SURGICAL HISTORY Procedure Laterality Date APPENDECTOMY 1998 COLONOSCOPY 01/12/2023 no specimens, next colonoscopy 2029 EGD WITH BIOPSY(S) 03/13/2017 Dr. Shook EGD WITH BIOPSY(S) 02/13/2020 small hiatal hernia; Duggan's without dysplasia; Dr. Montoya EGD WITH BIOPSY(S) 10/06/2021 H. pylori +; Duggan's without dysplasia; Dr. Riggs EGD WITH BIOPSY(S) 09/12/2022 neg for H. pylori; Dr. Riggs LAPS SURG CHOLECYSTECTOMY W/CHOLANGIOGRAPHY 07/24/2023 PAST SURGICAL HISTORY OF 2004 Lymph Node Bx 1999 TOTAL ABDOMINAL HYSTERECT W/WO RMVL TUBE OVARY 2004 and BSO - pelvic pain/benign ALLERGIES Penicillins MEDICATIONS predniSONE (DELTASONE) 20 mg tablet Take 2 tablets by mouth once daily. azithromycin (ZITHROMAX Z-NEEMA) 250 mg tablet Take 2 tablets day one, then, 1 tablet daily until gone. fluticasone (FLONASE) 50 mcg/actuation nasal spray Use 2 sprays in each nostril once daily. Rinse mouth after use. meloxicam (MOBIC) 15 mg tablet Take 1 tablet by mouth once daily. SUMAtriptan (IMITREX) 50 mg tablet Take 1 tablet by mouth as needed for migraine headache (see administration instructions) (at onset of headache. May repeat after 2 hours.). May repeat dose after 2 hours if needed. Maximum daily dose is 200 mg per day. amitriptyline 150 mg tablet Take 1 tablet by mouth daily at bedtime. SODIUM CITRATE ORAL Take by mouth. promethazine (PHENERGAN) 25 mg tablet Take 1 tablet by mouth every 8 hours as needed (for nausea). ergocalciferol 50,000 unit capsule (VITAMIN D2, DRISDOL) Take 1 tablet by mouth twice weekly [id number], then decrease to 1 tablet weekly. tiZANidine (ZANAFLEX) 4 mg tablet Take 1 tablet by mouth every 8 hours as needed. atorvastatin (LIPITOR) 20 mg tablet Take 1 tablet by mouth once daily. EPINEPHrine (EPIPEN) 0.3 mg/0.3 mL auto-injector Inject intramuscularly. multivit with minerals/lutein (MULTIVITAMIN 50 PLUS ORAL) Take by mouth. IBSRELA 50 mg tablet TAKE 1 TABLET BY MOUTH TWICE A DAY 10 MINUTES BEFORE EATING diclofenac (VOLTAREN) 1 % topical gel Apply 2 g to affected area twice daily. FASENRA PEN 30 mg/mL auto-injector Dexlansoprazole (DEXILANT) 60 mg CpDM Take 60 mg by mouth once daily. magnesium hydroxide (MILK OF MAGNESIA) 400 mg/5 mL suspension Take 15 mL by mouth once daily as needed for constipation. bisacodyl (DULCOLAX, BISACODYL,) 10 mg supp 1 Suppository by RECTAL route once daily as needed for constipation. famotidine (PEPCID) 40 mg tablet Take 1 tablet by mouth once daily as needed. MUCUS RELIEF ER 600 mg 12 hr tablet Take 1,200 mg by mouth twice daily. m (more content not included)... Normal [facility] DELTA SCREENING W Todd 10-31 DELTA SCREENING W MYRIAM * * *Final Report* * * DATE OF EXAM: Oct 31 2024 3:08PM [facility] - [facility] / PROCEDURE REASON: multiple diagnoses * * * * Physician Interpretation * * * * RESULT: [address] [address] [place] [address] #[id number] - [facility] S[facility]EN[facility] HISTORY: 53 year-old patient seen for screening. Patient is asymptomatic in both breasts. Patient states no personal history of breast cancer. The patient has a family history of breast cancer. The patient reports palpable abnormalities in both axillae, as reported in October 2023. COMPARISON STUDIES: The present examination has been compared to prior imaging studies dated 03/13/2023 (mammogram), 05/16/2023 (ultrasound), 10/09/2023 (ultrasound) and 10/09/2023 (mammogram). MAMMOGRAM TECHNIQUE: The study was acquired using full field digital technology and interpreted from soft copy. Digital Breast Tomosynthesis (DBT) images were obtained and used to assist in the interpretation of this examination. MAMMOGRAM FINDINGS: There are scattered areas of fibroglandular density. There are no suspicious mammographic findings to correspond with the areas of concern in both axillae. No significant masses, calcifications or other findings are seen in either breast. There has been no significant interval change. IMPRESSION: Negative study. No mammographic evidence of malignancy. There is no suspicious imaging finding to correspond with the areas of concern in both axillae. Clinical correlation and clinical follow up is recommended. Otherwise, a one year screening mammogram is recommended. BI-RADS Category 1: Negative RISK: Based on the Tyrer-Cuzick (TC) risk assessment model, this patient has a 5.8% lifetime risk of developing breast cancer, meaning they are at average risk for developing breast cancer. However, this is only an estimate based on available history provided on the patient's questionnaire. We encourage all patients to talk with their providers about these results, further recommendations for managing breast health, and appropriate supplemental screening options if the patient has dense breast tissue. Interpreting Radiologist: Scooby Love M.D. Electronically signed on: 11/03/2024 Certified Orthotic Fitter: JAN Transcribe Date/Time: Oct 31 2024 2:46P Dictated by: SCOOBY LOVE MD This examination was interpreted and the report reviewed and electronically signed by: SCOOBY LOVE MD on Nov 03 2024 8:13AM EST [id number] Normal [facility] CNOVon 10-13-2024 CNOV Office Visit (ORTHWS ) MARYANJANE ([id number]) 1970 F Date Time Provider Department 10/13/24 9:00 AM HEATH MAR During your visit today, we recorded the following information about you: Heath Mar MD 10/13/2024 9:33 AM Signed 2 Heath Mar MD 10/13/2024 9:33 AM Signed Heath Mar MD Department of Orthopaedics Orthopa[facility] [address] [facility] [address] Dept: [phone] Dept October 13, 2024 CHIEF COMPLAINT: New and Pain of the Right Shoulder Yohannes is a 53-year-old female with a history of osteoporosis, presenting for evaluation of right shoulder and arm pain. HPI Right Shoulder and Arm Pain: - Pain localized to the shoulder, radiating down the arm with associated numbness. - Aggravated by pressure in the axillary region, which elicits shooting pain down the arm. - Denies any limitations in shoulder mobility. - Recent shoulder X-ray showed minimal degenerative changes and small bone spurs. - Underwent a nerve conduction study last summer, which was reportedly normal. - No current use of anti-inflammatory medications. Cervicalgia: - Reports neck pain and migraines. - Previous evaluation by Dr. Hamilton noted abnormal cervical curvature. - No prior physical therapy for the neck. Osteoporosis: - Diagnosed following a bone density test. ASSESSMENT: 1. RUE weakness (R29.898) 2. Axillary pain, right (M79.621) 3. Chronic right shoulder pain (M25.511) 4. Cervical radiculopathy (M54.12) 5. Cervical disc disorder with radiculopathy of cervical region (M50.10) PLAN: - Shoulder X-ray shows minimal degenerative changes with small osteophytes; no significant arthritis. - Spurling's test positive on the right side, indicating possible cervical nerve root irritation. - Previous nerve conduction study of the upper extremities was normal. - Symptoms and exam findings suggest cervical radiculopathy rather than primary shoulder pathology. - Prescribed meloxicam 15 mg orally once daily; sent prescription to [facility] pharmacy. - Ordered physical therapy focusing on cervical spine exercises. - If no significant improvement after one month of physical therapy and anti-inflammatory treatment, will order MRI of the cervical spine. 6. Age-related osteoporosis without current pathological fracture (M81.0) - Discussed previous bone density test results indicating osteoporosis. - Reinforced importance of bone health to prevent fractures. Will continue to monitor patient for Rue weakness Axillary pain, right Chronic right shoulder pain Cervical radiculopathy (primary encounter diagnosis) Cervical disc disorder with radiculopathy of cervical region Age-related osteoporosis without current pathological fracture, patient to schedule visit as per follow up discussed. OBJECTIVE: Ms. Jane Steinberg is a pleasant 53 year old in no apparent distress. Gen:There were no vitals taken for this visit. nl development, non obese, no deformities ENT: Normocephalic, normal hearing, moist mucosa CV: Pulses:Radial= 2+ and symmetric, capillary refill < 2 secs, no peripheral edema/varicosities Skin: no rash, bruising or lesions. Good turgor. Psych: cooperative and appropriate, alert and oriented x 3, good mood and affect. - Musculoskeletal: - Right Shoulder: No palpable swelling in the axilla. No tenderness. - ROM: Forward elevation to 180 degrees, external rotation full. IR upper thoracic. - Provocative test: Negative impingement sign. - Neck: - Provocative test: Spurling's test positive on ipsilateral side, negative oncontralateral side . IMAGING: IMPRESSION: Minimal degenerative changes. Certified Orthotic Fitter: GEENA Transcribe Date/Time: Jan 03 2024 7:43A Dictated by : GINGER MONTEMAYOR MD This examination was interpreted and the report reviewed and electronically signed by: GINGER MONTEMAYOR MD on Jan 03 2024 7:43AM EST Results-Findings * * *Final Report* * * DATE OF EXAM: 2023 3:09PM WOX 5253 - XR SHLDR >/=3V AP/RACHEL AP/OTHR RT / PROCEDURE REASON: multiple diagnoses * * * * Physician Interpretation * * * * EXAMINATION: XR SHLDR >/=3V AP/RACHEL AP/OTHR RT, XR SHLDR >/=3V AP/RACHEL AP/OTHR LT HISTORY: Pain in neck and painful lumps in bilateral axillary region. Pain in axilla, unspecified laterality Numbness and tingling of both upper extremities Numbness and tingling of both upper extremities . TECHNIQUE: XR SHLDR >/=3V AP/RACHEL AP/OTHR RT, XR SHLDR >/=3V AP/RACHEL AP/OTHR LT Laterality: RIGHT (accession [id number]), LEFT (accession [id number]) Number of different views (projections): 3 M: XB_1 COMPARISON: August 18, 2021 RESULT: Minimal glenohumeral and acromioclavicular degenerative changes bilaterally. No acute bone destruction. No acute fracture or dislocation. There are no bony erosions. Sup (more content not included)... [facility] Gastroenterology Visit Repor ton 10-07-2024 Gastroenterology Visit Report [facility] [address] [place] [address] OFFICE VISIT Date of Service: 10/07/24 MR#: [id number] Acct: [id number] Name: JANE STEINBERG Rep #: [id number] : 1970 Provider: Pelon Hamilton DO Age/Sex: 53/F [place] [facility] [place]: Signed Intake Vital Signs 04/03/24 05:57 08/11/24 09:31 Height 5 ft 3 in 5 ft 1 in Intake Visit Reasons: 6 M FU Allergies Penicillins (PCN) Allergy (Verified 08/11/24 09:40) Anaphylaxis Medications ???Medication ???Instructions ???Recorded ???Confirmed ???Type ergocalciferol (vitamin D2) 1,250 1,250 mcg PO QWEEK 12/09/2110/07 History mcg (50,000 unit) capsule phenylephrine 0.25 %-cocoa butter 1 supp DC PRN PRN Hemorrhoids 10/2810/07/24 History 88.44 % rectal suppository (Preparation H(phenyleph,cocoa buttr)) amitriptyline 25 mg tablet 100 mg PO QHS 05/16/22 10/07/24 Hi story epinephrine 0.3 mg/0.3 mL 0.3 mg (0.3 mL) IM ONCE #1 ea 09/2810/07/24 Rx injection, auto-injector (EpiPen) diclofenac sodium 1 % topical gel 2 g topical ONCE 01/18/24 5 History promethazine 25 mg tablet 25 mg PO TID PRN nausea and 10/07/24 History vomiting PEP device #1 ea 02/05/24 10/07/24 Rx albuterol sulfate 2.5 mg/3 mL 2.5 mg (3 mL) inhalation Q6H PRN 0 02/05/24 10/07/24 Rx (0.083 %) solution for nebulization PRN Sob /Or Wheezing #180 mL albuterol sulfate 90 mcg/actuation 1 puff inhalation Q4H PRN PRN So b 02/05/24 10/07/24 Rx aerosol inhaler (Ventolin HFA) /Or Wheezing #8.5 grams fluticasone fur. 200 mcg-umeclid 1 inh inhalation DAILY #3 ea 02/0410/07/24 Rx 62.5 mcg-vilant 25 mcg inhalat.powder (Trelegy Ellipta) fluticasone propionate 50 1 spray BID #3 ea 02/05/24 5 Rx mcg/actuation nasal spray,suspension guaifenesin 1,200 mg tablet, 1,200 mg PO Q12H #60 tabs 02/05/24 10/07/24 Rx extended release 12 hr ipratropium 0.5 mg-albuterol 3 mg 3 ml inhalation Q4H PRN Shortness 02/05/24 10/07/24 Rx (2.5 mg base)/3 mL nebulization Of Breath Or Wheezing #180 mL soln loratadine 10 mg tablet (Claritin) 10 mg PO DAILY #90 tabs 02/05/24 10/07/24 Rx montelukast 10 mg tablet 10 mg PO DAILY #90 tabs 02/05/24 0 10/07/24 Rx dexlansoprazole 30 mg 30 mg PO BID #60 caps 04/14/2408/02 Rx capsule,biphase delayed release famotidine 20 mg tablet 20 mg PO BID PRN breakthrough 01/2910/07/24 Rx heartburn #60 tabs dicyclomine 20 mg tablet 20 mg PO BID #60 tabs 04/16/2408/02 Rx atorvastatin 20 mg tablet 20 mg PO QDAY 05/15/24 10/07/24 Hi story benralizumab 30 mg/mL subcutaneous 30 mg subcut Q8W #1 mL 05/15/24 10/07/24 Rx auto-injector (Fasenra Pen) metoclopramide HCl 10 mg tablet 10 mg PO QAC #90 tabs 06/03/2408/02 Rx azithromycin 250 mg tablet See Rx Instructions PO .COMPLEX #6 08/08/24 10/07/24 Rx tabs tenapanor 50 mg tablet (Ibsrela) 50 mg PO BID #180 tabs 08/28/24 Rx PFSH Medical History Wears glasses Wears dentures Cancer History of IBS Heartburn Gastric reflux Smoker Shortness of breath on exertion Chronic cough Leg cramps History of echocardiogram Cholelithiasis Irritable bowel syndrome with constipation Hiatal hernia Constipation Snoring Hx of migraines Lung disease Internal hemorrhoids History of uterine cancer H. pylori infection GERD (gastroesophageal reflux disease) Emphysema lung Bulimia nervosa Duggan's esophagus Asthma Anxiety Anorexia nervosa COPD (chronic obstructive pulmonary disease) Surgical History History of cholecystectomy History of hysterectomy History of appendectomy Family History Mother Hypertension Heart disease Eczema AAA (abdominal aortic aneurysm) Fibromyalgia Father Lung cancer Alcohol abuse Colon cancer Sister Hypertension Asthma Migraine headache Gout Fibromyalgia Aunt Breast cancer Aunt Breast cancer Social History (Updated 08/11/24 @ 09:54 by Mickey Valencia NP, [employer] ANNEALER-C) Smoking Status: Current every day smoker tobacco type: cigarettes alcohol intake: current alcohol intake frequency: holidays/special occasions only substance use type: does not use HPI HPI Details: JANE STEINBERG, is a 53 F who presents to the office today for follow up. *BGI established 9.12.30 pt reports a long history of GERD, IBS-C, Barretts. Pt reports that about a year ago she was told she has a small hiatal hernia. Pt states that she has nearly constant HB and nothing seems to be helpful. Pt reports waking in the middle of the night throwing up due to her HB. Pt reports (more content not included)... Normal [facility] CNOVon 09-08-2024 CNOV Office Visit (INTMWS ) STEINBERGJANE ZAVALETA ([id number]) 1970 F Date Time Provider Department 09/08/24 8:40 AM LAURA HERNANDEZ During your visit today, we recorded the following information about you: Pulse Respiration Blood pressure Weight 78/minute 16/minute 130/82 56.2 kg Laura Hernandez APRN.DUMPER 09/08/2024 10:09 AM Signed CC: Patient presents with: Recheck: Headache follow up HPI Jane Steinberg is a 53 year old female who presents today for migraine. Was seen 3 weeks ago with migraine vs tension headache. Was given ketoralac in office and imitrex to use at home. Was already on amitriptyline for migraine with aura prevention. Tolerating the imitrex well but has needed all 10 tablets. No headache today and used last 2 days ago. Previous Visit: Pain starts at neck and radiates into head and is a constant ache that varies in severity. Worsens with noise. Very bright lights can make it worse as well. Excedrin migraine helps for a few hours but it returns immediately. Last taken yesterday. Will sometimes see sparkly lights but only when the pain is severe. Does have a history of migraines with aura which is controlled with amitriptyline. Denies head injury, fever, chills, weakness, confusion, numbness, nausea, chest pain, or edema. Does have continued cough, wheezing and some shortness of breath she is continuing to follow with pulmonology for this Did have CT of brain a few months ago without concern. Ongoing right sharp axillary pain going straight down the arm, decreased ROM to right shoulder, right shoulder pain, and gets weakness to RUE. This will occur intermittently and then she will describe feeling a know if in her axillary region. It will self resolve and she says nothing makes it resolves. Will just come and go without identifiable cause throughout the day. Has had xray of shoulder last year that showed degenerative changes. Cervical xray showing degeneration and disc space narrowing and negative breast and axillary imaging. After the studies, patient started with new onset syncope and other issues so this was tabled but now would like it revaluated. Is noticing she is dropping more things over the last few months. This was prior to the headaches and med changes. Denies injuries or falls. Not occurring in office visit. Denies swelling, redness, fever, chills, or numbness. REVIEW OF SYSTEMS See HPI PAST MEDICAL HISTORY Diagnosis Date Anorexia nervosa 06/11/2006 Stable; treated in past Anxiety Asthma 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 02/13/2020 Bulimia nervosa 06/11/2006 Stable, treated in past Cancer (HCC) Chest pain Cholelithiasis 07/24/2023 Chronic obstructive pulmonary disease (COPD) (HCC) Emphysema lung (HCC) GERD (gastroesophageal reflux disease) H. pylori infection cronic Hiatal hernia 02/13/2020 small HISTORY OF CANCER OF UTERUS 06/11/2006 2004, Hysterectomy - complete History of COVID-19 07/10/2023 Internal hemorrhoids Lung disease Migraines Overweight (BMI 25.0-29.9) 07/10/2023 Snoring Tobacco use disorder 06/11/2006 Quit 09/2015. Unspecified asthma(493.90) Childhood diagnosis. PAST SURGICAL HISTORY Procedure Laterality Date APPENDECTOMY 1998 COLONOSCOPY 01/12/2023 no specimens, next colonoscopy 2029 EGD WITH BIOPSY(S) 03/13/2017 Dr. Shook EGD WITH BIOPSY(S) 02/13/2020 small hiatal hernia; Duggan's without dysplasia; Dr. Montoya EGD WITH BIOPSY(S) 10/06/2021 H. pylori +; Duggan's without dysplasia; Dr. Riggs EGD WITH BIOPSY(S) 09/12/2022 neg for H. pylori; Dr. Riggs LAPS SURG CHOLECYSTECTOMY W/CHOLANGIOGRAPHY 07/24/2023 PAST SURGICAL HISTORY OF 2004 Lymph Node Bx 1999 TOTAL ABDOMINAL HYSTERECT W/WO RMVL TUBE OVARY 2004 and BSO - pelvic pain/benign ALLERGIES Penicillins MEDICATIONS SUMAtriptan (IMITREX) 50 mg tablet Take 1 tablet (50 mg) by mouth as needed for migraine headache (see administration instructions) (at onset of headache. May repeat after 2 hours.). May repeat dose after 2 hours if needed. Maximum daily dose is 200 mg per day. SODIUM CITRATE ORAL Take by mouth. promethazine (PHENERGAN) 25 mg tablet Take 1 tablet by mouth every 8 hours as needed (for nausea). ergocalciferol 50,000 unit capsule (VITAMIN D2, DRISDOL) Take 1 tablet by mouth twice weekly [id number], then decrease to 1 tablet weekly. tiZANidine (ZANAFLEX) 4 mg tablet Take 1 tablet by mouth every 8 hours as needed. atorvastatin (LIPITOR) 20 mg tablet Take 1 tablet by mouth once daily. varenicline (CHANTIX STARTING MONTH BOX) 0.5 mg (11)- 1 mg (42) tablet Take 0.5 mg by mouth once daily on Days 1 through 3, THEN 0.5 mg twice daily on Days 4 through 7, THEN 1 mg twice daily on Day 8 and thereafter (Patient not taking: Reported on 08/02/2024) EPINEPHrine (EPIPEN) 0.3 mg/0.3 mL auto-injector Inject intramuscularly. multivit with (more content not included)... Normal [facility] CNOVon 08-21-2024 CNOV Office Visit (INTMWS ) JANE STEINBERG ([id number]) 1970 F Date Time Provider Department 08/21/24 9:40 AM LAURA HERNANDEZ During your visit today, we recorded the following information about you: Pulse Respiration Blood pressure Weight 72/minute 16/minute 128/78 58.5 kg Laura Hernandez APRN.CNP 08/21/2024 10:23 AM Signed CC: Patient presents with: Headache: Headache x 1 week HPI Jane Steinberg is a 53 year old female who presents today for headache for the last week after being on steroids and antibiotics for respiratory infection as prescribed by pulmonology. Pain starts at neck and radiates into head and is a constant ache that varies in severity. Worsens with noise. Very bright lights can make it worse as well. Excedrin migraine helps for a few hours but it returns immediately. Last taken yesterday. Will sometimes see sparkly lights but only when the pain is severe. Does have a history of migraines with aura which is controlled with amitriptyline. Denies head injury, fever, chills, weakness, confusion, numbness, nausea, chest pain, or edema. Does have continued cough, wheezing and some shortness of breath she is continuing to follow with pulmonology for this Did have CT of brain a few months ago without concern. REVIEW OF SYSTEMS See HPI PAST MEDICAL HISTORY Diagnosis Date Anorexia nervosa 06/11/2006 Stable; treated in past Anxiety Asthma 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 02/13/2020 Bulimia nervosa 06/11/2006 Stable, treated in past Cancer (HCC) Chest pain Cholelithiasis 07/24/2023 Chronic obstructive pulmonary disease (COPD) (HCC) Emphysema lung (HCC) GERD (gastroesophageal reflux disease) H. pylori infection cronic Hiatal hernia 02/13/2020 small HISTORY OF CANCER OF UTERUS 06/11/2006 2004, Hysterectomy - complete History of COVID-19 07/10/2023 Internal hemorrhoids Lung disease Migraines Overweight (BMI 25.0-29.9) 07/10/2023 Snoring Tobacco use disorder 06/11/2006 Quit 09/2015. Unspecified asthma(493.90) Childhood diagnosis. PAST SURGICAL HISTORY Procedure Laterality Date APPENDECTOMY 1998 COLONOSCOPY 01/12/2023 no specimens, next colonoscopy 2029 EGD WITH BIOPSY(S) 03/13/2017 Dr. Shook EGD WITH BIOPSY(S) 02/13/2020 small hiatal hernia; Duggan's without dysplasia; Dr. Montoya EGD WITH BIOPSY(S) 10/06/2021 H. pylori +; Duggan's without dysplasia; Dr. Riggs EGD WITH BIOPSY(S) 09/12/2022 neg for H. pylori; Dr. Keely LAPS SURG CHOLECYSTECTOMY W/CHOLANGIOGRAPHY 07/24/2023 PAST SURGICAL HISTORY OF 2004 Lymph Node Bx 1999 TOTAL ABDOMINAL HYSTERECT W/WO RMVL TUBE OVARY 2004 and BSO - pelvic pain/benign ALLERGIES Penicillins MEDICATIONS SODIUM CITRATE ORAL Take by mouth. ibuprofen (MOTRIN) 800 mg tablet Take 1 tablet by mouth every 8 hours as needed for pain. promethazine (PHENERGAN) 25 mg tablet Take 1 tablet by mouth every 8 hours as needed (for nausea). ergocalciferol 50,000 unit capsule (VITAMIN D2, DRISDOL) Take 1 tablet by mouth twice weekly [id number], then decrease to 1 tablet weekly. tiZANidine (ZANAFLEX) 4 mg tablet Take 1 tablet by mouth every 8 hours as needed. atorvastatin (LIPITOR) 20 mg tablet Take 1 tablet by mouth once daily. varenicline (CHANTIX STARTING MONTH BOX) 0.5 mg (11)- 1 mg (42) tablet Take 0.5 mg by mouth once daily on Days 1 through 3, THEN 0.5 mg twice daily on Days 4 through 7, THEN 1 mg twice daily on Day 8 and thereafter (Patient not taking: Reported on 08/02/2024) EPINEPHrine (EPIPEN) 0.3 mg/0.3 mL auto-injector Inject intramuscularly. multivit with minerals/lutein (MULTIVITAMIN 50 PLUS ORAL) Take by mouth. amitriptyline (ELAVIL) 100 mg tablet take 1 tablet by mouth once daily at bedtime IBSRELA 50 mg tablet TAKE 1 TABLET BY MOUTH TWICE A DAY 10 MINUTES BEFORE EATING fluticasone (FLONASE) 50 mcg/actuation nasal spray Use 2 Sprays in each nostril once daily. Rinse mouth after use. diclofenac (VOLTAREN) 1 % topical gel Apply 2 g to affected area twice daily. FASENRA PEN 30 mg/mL auto-injector Dexlansoprazole (DEXILANT) 60 mg CpDM Take 60 mg by mouth once daily. magnesium hydroxide (MILK OF MAGNESIA) 400 mg/5 mL suspension Take 15 mL by mouth once daily as needed for constipation. bisacodyl (DULCOLAX, BISACODYL,) 10 mg supp 1 Suppository by RECTAL route once daily as needed for constipation. famotidine (PEPCID) 40 mg tablet Take 1 tablet by mouth once daily as needed. MUCUS RELIEF ER 600 mg 12 hr tablet Take 1,200 mg by mouth twice daily. montelukast (SINGULAIR) 10 mg tablet Take 1 tablet by mouth daily at bedtime. fluticasone-umeclidin- vilanter (TRELEGY ELLIPTA) 200-62.5-25 mcg inhalation powder Inhale as instructed. albuterol HFA (VENTOLIN HFA) 90 mcg/actuation inhaler Inhale 2 Puffs as instructed every 4 hours as needed for wheezing/shortness of breath. L. acidophilus-L. r (more content not included)... Normal [facility] Pulmonary Visit Reporton Pulmonary Visit Report [facility] [address] [place] [address] OFFICE VISIT Date of Service: 08/11/24 MR#: [id number] Acct: [id number] Name: JANE STEINBERG Rep #: [id number] : 1970 Provider: NAI Valencia Age/Sex: 53/F [place] [facility] [place] Status: Signed Assessment and Plan Assessment and Plan (1) Hypoxia: Status: Acute Plan: Patient reports that her oxygen saturation has noted to be 87% upon awakening in the morning. For this reason, I am going to order an overnight oximetry. If hypoxia is discovered we will set the patient up with supplemental oxygen. (2) Asthma-COPD overlap syndrome: Status: Chronic Plan: Deteriorated, the patient was diagnosed with exacerbation on Sunday in the urgent care. She was treated with azithromycin and a Medrol Dosepak. She continues to experience symptoms and reports that she has not seen any improvement. Unfortunately, given that she is already on systemic steroids, I cannot perform a NIOX in the office today. I have encouraged her to complete the Z-Neema as ordered. I am discontinuing the Medrol Dosepak and placing the patient on a prednisone taper. The patient does admit that she becomes symptomatic about 2 weeks prior to the due of her Fasenra. We may need to consider an alternative biologic or requesting that she be treated every 4 weeks. I have asked her to contact the office on Sunday afternoon to give us an update. I explained that this is likely viral and will take some time to recover. She should not expect much improvement in the next 48 hours. Continue current maintenance medication, on maximal traditional medical treatment, including triple therapy on Trelegy and biologic therapy with Fasenra. An acute visit and typically be arranged within 1-2 days. Keep previously scheduled follow-up in January 2025. Orders: Orders OutPt Pulse Ox/Cont Overnight Today R09.02 - Hypoxemia Medications: New prednisone take 4 tabs for three days, then 3 tabs for three days, then 2 tabs for three days, then 1 tab for 3 days 10 mg PO QDAY 12 days 12 tabs 0RF Discontinued methylprednisolone (Medrol (Neema)) Discontinued Reason: Order Changed 4 mg PO PER PKG DIR 6 days 21 tabs 0RF HPI HPI Comments Details: This patient presents to the office today for an acute visit regarding wheezing, shortness of breath and cough. She is ambulatory and currently on room air. She is accompanied today by a friend. She initially contacted the office on August 07 reporting that she was feeling short of breath and had a severe cough that was dry. The nurses left a message for her to get some more details on her symptoms. The patient returned the call late in the afternoon on August 07 reporting that she did not have any fever or chills and that she felt as though her cough was productive but she was not able to expectorate any sputum. She has been utilizing her DuoNeb more frequently. Providing staff wanted to see the patient on the , however the patient did not have return a call to the office until 345 on Sunday afternoon. The provider did call the patient back at 430 that afternoon to get further details. It was recommended that the patient be seen at an urgent care or local ER for evaluation. The staff contacted the patient early this morning to see how she is feeling and the patient reported that she was continuing to experience wheezing, shortness of breath and cough. She reports that she has been using her nebulizer every 2 hours. The cough is nonproductive. Oxygen saturations are stable throughout the day, but the patient reports that they dropped to 87% at night. She is compliant with use of Trelegy 1 puff daily. She does report rinsing her mouth out after each use. She denies any medication side effect such as sore throat or thrush. She is also compliant with Claritin and Singulair daily. She continues with Fasenra bimonthly injections. She is currently utilizing albuterol in the nebulizer every 2 hours. She continues to smoke cigarettes. If you recall, she previously smoked more but recently has been only smoking 1 or 2 cigarettes/day. She is not currently on any supplemental oxygen. She has been taking the Z-Neema and Medrol Dosepak as prescribed. Intake Vital Signs 08/08/24 17:37 08/11/24 09:31 Height 5 ft 1 in 5 ft 1 in Weight: 130 lb 4 oz 126 lb BMI 24.6 23.8 BP 150/80 H 132/50 H Blood Pressure Location Rt brachial Lt brachial Position Sitting Sitting Respiration 18 24 H Pulse 94 75 Pulse Source NIBP Monitor Temp 98.6 F 97.3 F L Temperature Source Temporal Artery Pulse Oximetry (%) 95 96 Oxygen Delivery Method room air room air Intake Visit Reasons: Acute Chief Complaint: cough, SOB, wheezing Machine Try Out Setter Required: No DME Vendor: None Accompanie (more content not included)... Normal [facility] Urgent Care Visit Reporton 0 08-08-2024 Urgent Care Visit Report [facility] [address] [place] [address] OFFICE VISIT Date of Service: 08/08/24 MR#: [id number] Acct: [id number] Name: JANE STEINBERG Rep #: [id number] : 1970 Provider: YECENIA Guerra Age/Sex: 53/F [place] [facility] [place] Status: Signed Intake Vital Signs 05/15/24 07:27 08/08/24 17:37 Height 5 ft 3 in 5 ft 1 in Weight: 124 lb 130 lb 4 oz BMI 21.9 24.6 BP 129/81 H 150/80 H Blood Pressure Location Lt brachial Rt brachial Position Sitting Sitting Respiration 16 18 Pulse 81 94 Pulse Source Monitor NIBP Temp 97.4 F L 98.6 F Temp Source Oral Pulse Oximetry (%) 97 95 Oxygen Delivery Method room air room air Intake Visit Reasons: Cough Chief Complaint: cough, SOB, wheezing Machine Try Out Setter Required: No Is patient in pain?: No Allergies Penicillins (PCN) Allergy (Verified 08/08/24 17:37) Anaphylaxis Is last menstrual period known: No Post menopausal: Yes Patient : No Have you fallen in the past year?: No Nurse's Note: cough, SOB, wheezing x 2 weeks. dxd with flu 10 days ago, was also given ATB and steroid. completed as prescribed, s/s worsening. pt audibly wheezing, c/o bilateral rib/flank pain with cough. hx emphysema and COPD [facility] Medical History Wears glasses Wears dentures Cancer History of IBS Heartburn Gastric reflux Smoker Shortness of breath on exertion Chronic cough Leg cramps History of echocardiogram Cholelithiasis Irritable bowel syndrome with constipation Hiatal hernia Constipation Snoring Hx of migraines Lung disease Internal hemorrhoids History of uterine cancer H. pylori infection GERD (gastroesophageal reflux disease) Emphysema lung Bulimia nervosa Duggan's esophagus Asthma Anxiety Anorexia nervosa COPD (chronic obstructive pulmonary disease) Surgical History History of cholecystectomy History of hysterectomy History of appendectomy Family History Mother Hypertension Heart disease Eczema AAA (abdominal aortic aneurysm) Fibromyalgia Father Lung cancer Alcohol abuse Colon cancer Sister Hypertension Asthma Migraine headache Gout Fibromyalgia Aunt Breast cancer Aunt Breast cancer Social History Smoking Status: Current every day smoker tobacco type: cigarettes alcohol intake: current alcohol intake frequency: holidays/special occasions only substance use type: does not use HPI HPI Chief Complaint: cough, SOB, wheezing Details: JANE STEINBERG, is a 53 F who presents to the office today for complaint of cough, congestion, shortness of breath and wheezing. Patient states she has had this intermittently for the past 3 weeks. She also states just coming off of doxycycline after being diagnosed with influenza a week ago. Patient denies nausea, vomiting, diarrhea. No loss of taste or smell. Patient does have asthma COPD overlap syndrome. No other associated symptoms or alleviating/aggravatin g factors. ROS Const Constitutional: No other (6 system ROS completed with pertinent findings in the HPI otherwise normal.) Exam Const General: cooperative and well developed HENNM Head: normal to inspection and atraumatic Ears: hearing grossly normal bilaterally Nose: nasal discharge clear Face and sinus: normal facial exam Mouth: oral mucosae normal Throat: abnormal tonsil bilaterally hypertrophy 1+ Resp Effort Inspection: normal respiratory effort and no audible wheezes Auscultation: Bilateral: Clear to Auscultation Cardio Palpation: normal PMI Rate: regular rate Rhythm: regular rhythm Neuro General: patient alert and CN's II-XI intact bilaterally Psych Appearance: grossly normal Mental Status: mental status grossly normal Coding Level of Care Code Off vis,new,level 3 Diagnoses Asthmatic bronchitis with acute exacerbation J45.901 Assessment and Plan Assessment and Plan (1) Asthmatic bronchitis with acute exacerbation: Status: Acute Plan: Azithromycin, Medrol Dosepak and DuoNebs as prescribed today. Encouraged to get plenty of rest, drink lots of clear liquids, and use Tylenol or Ibuprofen (unless contraindicated) for fever and comfort. Patient also educated on other symptomatic management techniques. To be seen in 7-10 days if no improvement; sooner if worsening of symptoms. Patient advised of potential red flags and when appropriate to report to the ED. Patient verbalized understanding and agreement with all the above. Medications: New azithromycin take 500 mg today (day 1), then 250 mg for 4 days (days 2-5) PO 6 tabs 0RF methylprednisolone (Medrol (Pa (more content not included)... Normal [facility] 25(OH)D3 [facility] 2024 25-hydroxyvitamin D3 [Mass/Vol] 55.6 ng/mL Normal 31.0-80.0 [facility] Comment on above: Order Comment: Speci men Type: BLOOD SPECIMENOrdering Facility: [facility] Address: [address] [place] [address] Result Comment: Clas sification of 25 [place] Vitamin D status: Deficiency/Insufficiency: < or = 30 ng/ml. Sufficiency/Optimal Levels: 31-80 ng/mL Toxicity: > 100 ng/mL. Test performed by chemiluminescent immunoassay. Performed By: #### 1 989-3 ####[facility] LABCLIA [id number] [place] [address] [place] CNOVon 08-02-2024 CNOV Office Visit (UCWSTR ) MARYANJANE SHELLEY ([id number]) 1970 F Date Time Provider Department 08/02/24 12:15 PM [facility] During your visit today, we recorded the following information about you: Temperature Pulse Respiration Blood pressure 97 degrees 90/minute 16/minute 120/72 Weight 58.6 kg Weston Strickland MD 08/02/2024 12:54 PM Signed Patient presents with: Nasal Congestion: bodyaches, vomiting, wheezing, sob, fatigue x 10 days HPI: Feeling sick for 1 1/2 weeks. Positive symptoms: Cough, Shortness of breath, Wheezing, sore chest, Nasal Congestion, Rhinorrhea, Body Aches, Fatigue, migraine Headaches, Nausea and Vomiting from headaches Negative symptoms: Sore throat, Fever, Chills, Diarrhea, OTC: Nyquil, Ibuprofen, inhalers PAST MEDICAL HISTORY Diagnosis Date Anorexia nervosa 06/11/2006 Stable; treated in past Anxiety Asthma 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 02/13/2020 Bulimia nervosa 06/11/2006 Stable, treated in past Cancer (HCC) Chest pain Cholelithiasis 07/24/2023 Chronic obstructive pulmonary disease (COPD) (HCC) Emphysema lung (HCC) GERD (gastroesophageal reflux disease) H. pylori infection cronic Hiatal hernia 02/13/2020 small HISTORY OF CANCER OF UTERUS 06/11/2006 2004, Hysterectomy - complete History of COVID-19 07/10/2023 Internal hemorrhoids Lung disease Migraines Overweight (BMI 25.0-29.9) 07/10/2023 Snoring Tobacco use disorder 06/11/2006 Quit 09/2015. Unspecified asthma(493.90) Childhood diagnosis. MEDICATIONS: Current Outpatient Medications Medication Sig SODIUM CITRATE ORAL Take by mouth. ibuprofen (MOTRIN) 800 mg tablet Take 1 tablet by mouth every 8 hours as needed for pain. promethazine (PHENERGAN) 25 mg tablet Take 1 tablet by mouth every 8 hours as needed (for nausea). ergocalciferol 50,000 unit capsule (VITAMIN D2, DRISDOL) Take 1 tablet by mouth twice weekly [id number], then decrease to 1 tablet weekly. tiZANidine (ZANAFLEX) 4 mg tablet Take 1 tablet by mouth every 8 hours as needed. atorvastatin (LIPITOR) 20 mg tablet Take 1 tablet by mouth once daily. EPINEPHrine (EPIPEN) 0.3 mg/0.3 mL auto-injector Inject intramuscularly. multivit with minerals/lutein (MULTIVITAMIN 50 PLUS ORAL) Take by mouth. amitriptyline (ELAVIL) 100 mg tablet take 1 tablet by mouth once daily at bedtime fluticasone (FLONASE) 50 mcg/actuation nasal spray Use 2 Sprays in each nostril once daily. Rinse mouth after use. diclofenac (VOLTAREN) 1 % topical gel Apply 2 g to affected area twice daily. FASENRA PEN 30 mg/mL auto-injector Dexlansoprazole (DEXILANT) 60 mg CpDM Take 60 mg by mouth once daily. magnesium hydroxide (MILK OF MAGNESIA) 400 mg/5 mL suspension Take 15 mL by mouth once daily as needed for constipation. bisacodyl (DULCOLAX, BISACODYL,) 10 mg supp 1 Suppository by RECTAL route once daily as needed for constipation. famotidine (PEPCID) 40 mg tablet Take 1 tablet by mouth once daily as needed. MUCUS RELIEF ER 600 mg 12 hr tablet Take 1,200 mg by mouth twice daily. montelukast (SINGULAIR) 10 mg tablet Take 1 tablet by mouth daily at bedtime. fluticasone-umeclidin- vilanter (TRELEGY ELLIPTA) 200-62.5-25 mcg inhalation powder Inhale as instructed. albuterol HFA (VENTOLIN HFA) 90 mcg/actuation inhaler Inhale 2 Puffs as instructed every 4 hours as needed for wheezing/shortness of breath. L. acidophilus-L. rhamnosus 15 billion cell cap Take 1 capsule by mouth once daily. FLORAJEN WOMEN. If on antibiotic, take at least 1-2 hours before or after antibiotic. KEEP REFRIGERATED albuterol (PROVENTIL) 2.5 mg /3 mL (0.083 %) nebulizer solution Use 3 mL via nebulizer every 6 hours as needed. COMPACT SPACE CHAMBER as directed. ipratropium-albuterol (DUONEB) 0.5 mg-3 mg(2.5 mg base)/3 mL nebu Inhale 3 mL as instructed every 4 hours as needed. PULSE OXIMETER CONTEC 1 Each as needed. Comp Stocking,Knee,Regular, Med misc 2 Each once daily. loratadine (CLARITIN) 10 mg tablet Take 1 tablet by mouth once daily. varenicline (CHANTIX STARTING MONTH BOX) 0.5 mg (11)- 1 mg (42) tablet Take 0.5 mg by mouth once daily on Days 1 through 3, THEN 0.5 mg twice daily on Days 4 through 7, THEN 1 mg twice daily on Day 8 and thereafter (Patient not taking: Reported on 08/02/2024) IBSRELA 50 mg tablet TAKE 1 TABLET BY MOUTH TWICE A DAY 10 MINUTES BEFORE EATING No current facility-administered medications for this visit. ALLERGIES: ALLERGIES Allergen Reactions Penicillins Anaphylaxis VITALS: BP 120/72 Pulse 90 Temp 36.1 ?C (97 ?F) Resp 16 Wt 58.6 kg (129 lb 3 oz) SpO2 95% BMI 23.33 kg/m? PHYSICAL EXAM: GEN: mildly ill appearing, pleasant, alert HEENT: PERRL, EOMI, conjunctiva clear Ears: moderate cerumen in canals. TMs without erythema, bulge, or effusion Sinuses: non-tender frontal sinus, non-tender maxillary sin (more content not included)... Normal [facility] CNCOon 07-31-2024 CNCO Letter Text Letter Text Normal [facility] JANE STEINBERG ([id number]) 1970 F FNS Date Time Provider Department 05/26/24 LAURA HERNANDEZ During your visit today, we recorded the following information about you: Laura Hernandez APRN.CNP 05/26/2024 8:38 AM Signed Vit D is low. Is she taking a vit d supplement. Thank you Laura Hernandez APRN.DUMPER Latasha Salamanca MA 05/26/2024 9:02 AM Signed Patient notified and states not taking Vit D supplement. Laura Hernandez APRN.KACY 05/26/2024 9:15 AM Signed Prescription vit d supplement started. 1 tablet twice weekly for 4 weeks then once weekly. I want to improve your vit d prior to starting reclast. Thank you Laura Hernandez APRN.Abbey Delacruz RN 05/26/2024 10:49 AM Signed Pt called and is notified of providers message and instructions. Pt voices understanding. Abbey Baker RN Allergies As of Date: 05/26/2024 Noted Allergy Reaction PENICILLINS 06/11/2006 10 - Anaphylaxis Date Reviewed: 05/23/2024 Reviewed by: Laura Hernandez APRN.KACY - Fully Assessed Reason for Visit: Results [95] Order(s):ergocalcifero l 50,000 unit capsule (VITAMIN D2, DRISDOL)Take 1 tablet by mouth twice weekly [id number], then decrease to 1 tablet weekly.Disp: 16 capsuleRfl: 3 Prescriptions as of 05/26/2024 - ergocalciferol 50,000 unit capsule (VITAMIN D2, DRISDOL) Take 1 tablet by mouth twice weekly [id number], then decrease to 1 tablet weekly. - tiZANidine (ZANAFLEX) 4 mg tablet Take 1 tablet by mouth every 8 hours as needed. - atorvastatin (LIPITOR) 20 mg tablet Take 1 tablet by mouth once daily. - varenicline (CHANTIX STARTING MONTH BOX) 0.5 mg (11)- 1 mg (42) tablet Take 0.5 mg by mouth once daily on Days 1 through 3, THEN 0.5 mg twice daily on Days 4 through 7, THEN 1 mg twice daily on Day 8 and thereafter - EPINEPHrine (EPIPEN) 0.3 mg/0.3 mL auto-injector Inject intramuscularly. - multivit with minerals/lutein (MULTIVITAMIN 50 PLUS ORAL) Take by mouth. - amitriptyline (ELAVIL) 100 mg tablet take 1 tablet by mouth once daily at bedtime - IBSRELA 50 mg tablet TAKE 1 TABLET BY MOUTH TWICE A DAY 10 MINUTES BEFORE EATING - promethazine (PHENERGAN) 25 mg tablet Take 1 tablet by mouth every 8 hours as needed (for nausea). - fluticasone (FLONASE) 50 mcg/actuation nasal spray Use 2 Sprays in each nostril once daily. Rinse mouth after use. - ibuprofen (MOTRIN) 800 mg tablet Take 1 tablet by mouth every 8 hours as needed for pain. - diclofenac (VOLTAREN) 1 % topical gel Apply 2 g to affected area twice daily. - FASENRA PEN 30 mg/mL auto-injector - Dexlansoprazole (DEXILANT) 60 mg CpDM Take 60 mg by mouth once daily. - magnesium hydroxide (MILK OF MAGNESIA) 400 mg/5 mL suspension Take 15 mL by mouth once daily as needed for constipation. - bisacodyl (DULCOLAX, BISACODYL,) 10 mg supp 1 Suppository by RECTAL route once daily as needed for constipation. - famotidine (PEPCID) 40 mg tablet Take 1 tablet by mouth once daily as needed. - MUCUS RELIEF ER 600 mg 12 hr tablet Take 1,200 mg by mouth twice daily. - montelukast (SINGULAIR) 10 mg tablet Take 1 tablet by mouth daily at bedtime. - fluticasone-umeclidin- vilanter (TRELEGY ELLIPTA) 200-62.5-25 mcg inhalation powder Inhale as instructed. - albuterol HFA (VENTOLIN HFA) 90 mcg/actuation inhaler Inhale 2 Puffs as instructed every 4 hours as needed for wheezing/shortness of breath. - L. acidophilus-L. rhamnosus 15 billion cell cap Take 1 capsule by mouth once daily. FLORAJEN WOMEN. If on antibiotic, take at least 1-2 hours before or after antibiotic. KEEP REFRIGERATED - albuterol (PROVENTIL) 2.5 mg /3 mL (0.083 %) nebulizer solution Use 3 mL via nebulizer every 6 hours as needed. - COMPACT SPACE CHAMBER as directed. - ipratropium-albuterol (DUONEB) 0.5 mg-3 mg(2.5 mg base)/3 mL nebu Inhale 3 mL as instructed every 4 hours as needed. - PULSE OXIMETER CONTEC 1 Each as needed. - Comp Stocking,Knee,Regular, Med misc 2 Each once daily. - loratadine (CLARITIN) 10 mg tablet Take 1 tablet by mouth once daily. 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 Normal [facility] 25(OH)D3 SerPl-mCncon 2023 25-hydroxyvitamin D3 [Mass/Vol] 19.0 ng/mL Low 31.0-80.0 [facility] Comment on above: Order Comment: Speci men Type: BLOOD SPECIMENOrdering Facility: [facility] Address: [address] [place] [address] Result Comment: Clas sification of 25 [place] Vitamin D status: Deficiency/Insufficiency: < or = 30 ng/ml. Sufficiency/Optimal Levels: 31-80 ng/mL Toxicity: > 100 ng/mL. Test performed by chemiluminescent immunoassay. Performed By: #### 1 989-3 ####[facility] LABCLIA [id number] [place] [id number], [place] [address] [place] Basic metabolic 2000 panelon 05-23-2024 Anion gap [Moles/Vol] 9 mmol/L Normal 8-15 [facility] Comment on above: Order Comment: Speci men Type: BLOOD SPECIMENOrdering Facility: [facility] Address: [address] [place] [address] Performed By: #### 2 4321-2, 45002-1, 45357-4, 77247-5 ####[facility] LABCLIA [id number] [facility] [place] [address] [place] Calcium [Mass/Vol] 9.2 mg/dL Normal 8.5-10.2 [facility] Comment on above: Order Comment: Speci men Type: BLOOD SPECIMENOrdering Facility: [facility] Address: [address] [place] [address] Performed By: #### 2 4321-2, 59081-8, 75448-2, ####[facility] LABCLIA [id number] [place] [address] [place] Chloride [Moles/Vol] 104 mmol/L Normal 98-107 [facility] Comment on above: Order Comment: Speci men Type: BLOOD SPECIMENOrdering Facility: [facility] Address: [address] [place] [address] Performed By: #### 2 4321-2, 08804-9, 40479-6, ####[facility] LABCLIA [id number] [facility] [place] [id number] [place] CO2 [Moles/Vol] 26 mmol/L Normal 22-30 [facility] Comment on above: Order Comment: Speci men Type: BLOOD SPECIMENOrdering Facility: [facility] Address: [address] [place] [address] Performed By: #### 2 4321-2, 30956-5, 25824-7, 01508-1 ####[facility] LABCLIA [id number] [facility] [place] [id number] [place] Creatinine [Mass/Vol] 0.86 mg/dL Normal 0.58-0.96 [facility] [place] Comment on above: Order Comment: Sonja tom Type: BLOOD SPECIMENOrdering Facility: [facility] Address: [address] [id number] Performed By: #### 2 4321-2, 57243-3, 82549-7, ####[facility] LABCLIA [id number] [place] [id number] [place] Creatinine and Glomerular filtration rate.predicted panel (S/P/Bld) 80 mL/min/1.73m??? Normal >=60 [facility] Comment on above: Order Comment: Sonja tom Type: BLOOD SPECIMENOrdering Facility: [facility] Address: [address] [place] [address] Result Comment: Ledy mated Glomerular Filtration Rate (eGFR) is calculated using the 2020 CKD-EPI creatinine equation. This equation utilizes serum creatinine, sex, and age as parameters. The creatinine assay has traceable calibration to isotope dilution-mass spectrometry. Refer to KDIGO guidelines for clinical interpretation. In patients with unstable renal function, e.g. those with acute kidney injury, the eGFR may not accurately reflect actual GFR. Performed By: #### 2 4321-2, 50539-9, 98484-6, ####[facility] LABCLIA [id number] [address] [address] [place] Glucose [Mass/Vol] 100 mg/dL High 74-99 [facility] Comment on above: Order Comment: Sonja tom Type: BLOOD SPECIMENOrdering Facility: [facility] Address: [address] [place] [address] Result Comment: The [place] Diabetes Association (ADA) provides guidance for cutoff values for fasting glucose and random glucose. The ADA defines fasting as no caloric intake for at least 8 hours. Fasting plasma glucose results between 100 to 125 mg/dL indicate increased risk for diabetes (prediabetes). Fasting plasma glucose results greater than or equal to 126 mg/dL meet the criteria for diagnosis of diabetes. In the absence of unequivocal hyperglycemia, results should be confirmed by repeat testing. In a patient with classic symptoms of hyperglycemia or hyperglycemic crisis, random plasma glucose results greater than or equal to 200 mg/dL meet the criteria for diagnosis of diabetes. Reference: Standards of Medical Care in Diabetes 2016, [place] Diabetes Association. Diabetes Care. 2016.39(Suppl 1). Performed By: #### 2 4321-2, 67160-0, 53882-2, ####[facility] LABCLIA [id number] [place] [address] [place] Potassium [Moles/Vol] 4.9 mmol/L Normal 3.7-5.1 [facility] [place] Comment on above: Order Comment: Speci men Type: BLOOD SPECIMENOrdering Facility: [facility] Address: [address] [place] [address] Performed By: #### 2 4321-2, 60344-0, 28460-4, ####[facility] LABCLIA [id number] [place] [address] [place] Sodium [Moles/Vol] 139 mmol/L Normal 136-144 [facility] Comment on above: Order Comment: Speci men Type: BLOOD SPECIMENOrdering Facility: [facility] Address: [address] [place] [address] Performed By: #### 2 4321-2, 98031-0, 44731-6, ####[facility] LABCLIA [id number] [place] [address] [place] Urea nitrogen [Mass/Vol] 15 mg/dL Normal 7-21 [facility] Comment on above: Order Comment: Speci men Type: BLOOD SPECIMENOrdering Facility: [facility] Address: [address] [place] [address] Performed By: #### 2 4321-2, 23595-4, 92847-4, 35745-8 ####[facility] LABCLIA [id number] [place] [id number] [place] CNOVon 11-15-2024 CNOV Office Visit (INTMWS ) STEINBERGJANE ZAVALETA ([id number]) 1970 F FNS Date Time Provider Department 05/23/24 7:20 AM LAURA HERNANDEZ INTKARO During your visit today, we recorded the following information about you: Pulse Respiration Blood pressure Weight 72/minute 16/minute 122/72 55.3 kg Laura Hernandez APRN.DUMPER 05/23/2024 7:52 AM Signed detention: Patient presents with: Recheck: 3 month follow up HPI Jane Steinberg is a 53 year old female who presents today for follow up but with concerns. Recent Bone density showing osteopenia with high fracture risk: This study was done by her GI specialist due to her chronic gastrointestinal issues with duggan's esophagus requiring multiple kinds of PPI treatment. Last dental exam was 6 months ago. Muscle tenseness to to bilateral shoulders into neck for the past few weeks. Has tried icy hot which helps for 10 minutes or so and returns. These are resulting in tension headaches. Denies injury, weakness, numbness, vision changes, confusion, edema, redness, fever, chills, or dizziness. Also no further syncope since being on sodium. REVIEW OF SYSTEMS See HPI PAST MEDICAL HISTORY Diagnosis Date Anorexia nervosa 06/11/2006 Stable; treated in past Anxiety Asthma 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 02/13/2020 Bulimia nervosa 06/11/2006 Stable, treated in past Cancer (HCC) Chest pain Cholelithiasis 07/24/2023 Chronic obstructive pulmonary disease (COPD) (HCC) Emphysema lung (HCC) GERD (gastroesophageal reflux disease) H. pylori infection cronic Hiatal hernia 02/13/2020 small HISTORY OF CANCER OF UTERUS 06/11/2006 2004, Hysterectomy - complete History of COVID-19 07/10/2023 Internal hemorrhoids Lung disease Migraines Overweight (BMI 25.0-29.9) 07/10/2023 Snoring Tobacco use disorder 06/11/2006 Quit 09/2015. Unspecified asthma(493.90) Childhood diagnosis. PAST SURGICAL HISTORY Procedure Laterality Date APPENDECTOMY 1998 COLONOSCOPY 01/12/2023 no specimens, next colonoscopy 2029 EGD WITH BIOPSY(S) 03/13/2017 Dr. Shook EGD WITH BIOPSY(S) 02/13/2020 small hiatal hernia; Duggan's without dysplasia; Dr. Montoya EGD WITH BIOPSY(S) 10/06/2021 H. pylori +; Duggan's without dysplasia; Dr. Riggs EGD WITH BIOPSY(S) 09/12/2022 neg for H. pylori; Dr. Riggs LAPS SURG CHOLECYSTECTOMY W/CHOLANGIOGRAPHY 07/24/2023 PAST SURGICAL HISTORY OF 2004 Lymph Node Bx 1999 TOTAL ABDOMINAL HYSTERECT W/WO RMVL TUBE OVARY 2004 and BSO - pelvic pain/benign ALLERGIES Penicillins MEDICATIONS atorvastatin (LIPITOR) 20 mg tablet Take 1 tablet by mouth once daily. varenicline (CHANTIX STARTING MONTH BOX) 0.5 mg (11)- 1 mg (42) tablet Take 0.5 mg by mouth once daily on Days 1 through 3, THEN 0.5 mg twice daily on Days 4 through 7, THEN 1 mg twice daily on Day 8 and thereafter EPINEPHrine (EPIPEN) 0.3 mg/0.3 mL auto-injector Inject intramuscularly. multivit with minerals/lutein (MULTIVITAMIN 50 PLUS ORAL) Take by mouth. amitriptyline (ELAVIL) 100 mg tablet take 1 tablet by mouth once daily at bedtime IBSRELA 50 mg tablet TAKE 1 TABLET BY MOUTH TWICE A DAY 10 MINUTES BEFORE EATING promethazine (PHENERGAN) 25 mg tablet Take 1 tablet by mouth every 8 hours as needed (for nausea). fluticasone (FLONASE) 50 mcg/actuation nasal spray Use 2 Sprays in each nostril once daily. Rinse mouth after use. ibuprofen (MOTRIN) 800 mg tablet Take 1 tablet by mouth every 8 hours as needed for pain. diclofenac (VOLTAREN) 1 % topical gel Apply 2 g to affected area twice daily. FASENRA PEN 30 mg/mL auto-injector Dexlansoprazole (DEXILANT) 60 mg CpDM Take 60 mg by mouth once daily. magnesium hydroxide (MILK OF MAGNESIA) 400 mg/5 mL suspension Take 15 mL by mouth once daily as needed for constipation. bisacodyl (DULCOLAX, BISACODYL,) 10 mg supp 1 Suppository by RECTAL route once daily as needed for constipation. famotidine (PEPCID) 40 mg tablet Take 1 tablet by mouth once daily as needed. MUCUS RELIEF ER 600 mg 12 hr tablet Take 1,200 mg by mouth twice daily. montelukast (SINGULAIR) 10 mg tablet Take 1 tablet by mouth daily at bedtime. fluticasone-umeclidin- vilanter (TRELEGY ELLIPTA) 200-62.5-25 mcg inhalation powder Inhale as instructed. albuterol HFA (VENTOLIN HFA) 90 mcg/actuation inhaler Inhale 2 Puffs as instructed every 4 hours as needed for wheezing/shortness of breath. L. acidophilus-L. rhamnosus 15 billion cell cap Take 1 capsule by mouth once daily. FLORAJEN WOMEN. If on antibiotic, take at least 1-2 hours before or after antibiotic. KEEP REFRIGERATED ergocalciferol 50,000 unit capsule (VITAMIN D2, DRISDOL) Take 1 capsule by mouth one time a week. albuterol (PROVENTIL) 2.5 mg /3 mL (0.083 %) nebulizer solution Use 3 mL via nebulizer every 6 hours as needed. COMPACT SPACE CHAMBER as directed. ipratropium-albuterol (DUONEB) 0.5 mg-3 mg(2.5 mg (more content not included)... Normal [facility] Hepatic function 2000 panelo n 05-23-2024 Albumin [Mass/Vol] 3.9 g/dL Normal 3.9-4.9 [facility] Comment on above: Order Comment: Speci men Type: BLOOD SPECIMENOrdering Facility: [facility] Address: [address] [place] [address] Performed By: #### 2 4321-2, 79290-3, 44996-6, 88914-1 ####[facility] LABCLIA [id number] [place] [address] [place] ALP [Catalytic activity/Vol] 107 U/L Normal 34-123 [facility] Comment on above: Order Comment: Speci men Type: BLOOD SPECIMENOrdering Facility: [facility] Address: [address] [place] [address] Performed By: #### 2 4321-2, 40272-6, 93117-5, ####[facility] LABCLIA [id number] [place] [address] [place] ALT [Catalytic activity/Vol] 15 U/L Normal 7-38 [facility] Comment on above: Order Comment: Speci men Type: BLOOD SPECIMENOrdering Facility: [facility] Address: [address] [place] [address] Performed By: #### 2 4321-2, 39915-3, 31577-7, ####[facility] LABCLIA [id number] [place] [address] [place] AST [Catalytic activity/Vol] 16 U/L Normal 13-35 [facility] Comment on above: Order Comment: Speci men Type: BLOOD SPECIMENOrdering Facility: [facility] Address: [address] [place] [address] Performed By: #### 2 4321-2, 69727-3, 19252-4, ####[facility] LABCLIA [id number] [place] [address] [place] Bilirubin [Mass/Vol] 0.2 mg/dL Normal 0.2-1.3 [facility] Comment on above: Order Comment: Speci men Type: BLOOD SPECIMENOrdering Facility: [facility] Address: [address] [place] [address] Performed By: #### 2 4321-2, 29840-8, 79907-0, ####[facility] LABCLIA [id number] [place] [address] [place] Bilirubin.conjugated [Mass/Vol] mg/dL Normal <0.2 [facility] Comment on above: Order Comment: Speci men Type: BLOOD SPECIMENOrdering Facility: [facility] Address: [address] [id number] Performed By: #### 2 4321-2, 85216-3, 48191-0, ####[facility] LABCLIA [id number] [address] [address] [place] Protein [Mass/Vol] 7.0 g/dL Normal 6.3-8.0 [facility] Comment on above: Order Comment: Speci men Type: BLOOD SPECIMENOrdering Facility: [facility] Address: [address] [place] [address] Performed By: #### 2 4321-2, 27301-3, 70042-6, ####[facility] LABCLIA [id number] [place] [address] [place] Lipid 1996 panelon 4 Cholesterol [Mass/Vol] 155 mg/dL Normal <200 [facility] Comment on above: Order Comment: Speci men Type: BLOOD SPECIMENOrdering Facility: [facility] Address: [address] [place] [address] Result Comment: <200 mg/dL, Desirable 200-239 mg/dL, Borderline high >239 mg/dL, High Performed By: #### 2 4321-2, 65924-9, 39591-9, ####[facility] LABCLIA [id number] [place] [id number] [place] Cholesterol in HDL [Mass/Vol] 33 mg/dL Low >39 [facility] Comment on above: Order Comment: Speci men Type: BLOOD SPECIMENOrdering Facility: [facility] Address: [address] [place] [address] Result Comment: 40-5 9 mg/dL, Acceptable >59 mg/dL, High: Negative risk factor for coronary heart disease <40 mg/dL, Low: Positive risk factor for coronary heart disease Performed By: #### 2 4321-2, 95484-5, 88466-4, ####[facility] LABCLIA [id number] [address] [address] [place] Cholesterol in LDL [Mass/Vol] 91 mg/dL Normal <100 [facility] Comment on above: Order Comment: Speci men Type: BLOOD SPECIMENOrdering Facility: [facility] Address: [address] [place] [address] Result Comment: <100 mg/dL, Optimal 100-129 mg/dL, Near optimal/above optimal 130-159 mg/dL, Borderline high 160-189 mg/dL, High >189 mg/dL, Very high Secondary prevention optimal LDL Cholesterol levels are recommended to be < 70 mg/dL Performed By: #### 2 4321-2, 92818-0, 16226-5, ####[facility] LABCLIA [id number] [place] [address] [place] Cholesterol in LDL/Cholesterol in HDL [Mass ratio] 2.76 {ratio} High <2.54 [facility] Comment on above: Order Comment: Speci men Type: BLOOD SPECIMENOrdering Facility: [facility] Address: [address] [place] [address] Result Comment: Hugo agrawal: 1. National Cholesterol Education Program ATP III Guideline At-A-Glance Quick Desk Reference: National Heart, Lung, and Blood [place]. National Institutes of Health. 2001: NIH Publication No. 01-3305. 2. An International Atherosclerosis Society position paper: global recommendations for the management of dyslipidemia: executive summary, Atherosclerosis. 2014: 232(2):410-413. Performed By: #### 2 4321-2, 19689-4, 84597-5, 17475-1 ####[facility] LABCLIA [id number] [place] [id number] [place] Cholesterol in VLDL [Mass/Vol] 31 mg/dL High <30 [facility] Comment on above: Order Comment: Speci men Type: BLOOD SPECIMENOrdering Facility: [facility] Address: [address] [place] [address] Performed By: #### 2 4321-2, 48612-9, 75990-6, ####[facility] LABCLIA [id number] [address] [address] [place] Cholesterol non HDL [Mass/Vol] 122 mg/dL Normal <130 [facility] Comment on above: Order Comment: Speci men Type: BLOOD SPECIMENOrdering Facility: [facility] Address: [address] [place] [address] Result Comment: <130 mg/dL, Optimal 130-159 mg/dL, Near optimal/above optimal 160-189 mg/dL, Borderline high 190-219 mg/dL, High >219 mg/dL, Very high Secondary prevention optimal non HDL Cholesterol levels are recommended to be <100 mg/dL Performed By: #### 2 4321-2, 31091-7, 58690-8, ####[facility] LABCLIA [id number] [place] [address] [place] Cholesterol.total/Choles terol in HDL [Mass ratio] 4.70 {ratio} Normal <5.10 [facility] Comment on above: Order Comment: Speci men Type: BLOOD SPECIMENOrdering Facility: [facility] Address: [address] [place] [address] Performed By: #### 2 4321-2, 99287-7, 91705-2, ####[facility] LABCLIA [id number] [place] [id number] [place] FASTING TIME 12 hrs Normal [facility] Comment on above: Order Comment: Speci men Type: BLOOD SPECIMENOrdering Facility: [facility] Address: [address] [place] [address] Performed By: #### 2 4321-2, 12154-3, 47371-8, ####[facility] LABCLIA [id number] [place] [id number] [place] Triglyceride [Mass/Vol] 154 mg/dL High <150 C [facility] Comment on above: Order Comment: Speci men Type: BLOOD SPECIMENOrdering Facility: [facility] Address: [address] [place] [address] Result Comment: <150 mg/dL, Normal 150-199 mg/dL, Borderline high 200-499 mg/dL, High >499 mg/dL, Very high Performed By: #### 2 4321-2, 53800-8, 16062-6, 24670-1 ####[facility] LABCLIA [id number] [address] [address] [place] Magnesium SerPl-ncon 05-23 Magnesium [Mass/Vol] 2.2 mg/dL Normal 1.7-2.3 [facility] Comment on above: Order Comment: Speci men Type: BLOOD SPECIMENOrdering Facility: [facility] Address: [address] [place] [address] Performed By: #### 2 4321-2, 51064-2, 37534-8, ####[facility] LABCLIA [id number] [place] [id number] [place] Phosphate SerPl-mCncon 05-23 Phosphate [Mass/Vol] 4.2 mg/dL Normal 2.7-4.8 [facility] Comment on above: Order Comment: Speci men Type: BLOOD SPECIMENOrdering Facility: [facility] Address: [address] [place] [address] Performed By: #### 2 777-1 ####[facility] LABCLIA [id number] [place] [id number] [place] Pulmonary Visit Reporton Pulmonary Visit Report [facility] [place] [address] [place] [address] OFFICE VISIT Date of Service: 05/15/24 MR#: [id number] Acct: [id number] Name: JANE STEINBERG Rep #: [id number] : 1970 Provider: NAI Valencia Age/Sex: 53/F [place] [facility] [place] Status: Signed Assessment and Plan Assessment and Plan (1) Asthma-COPD overlap syndrome: Status: Chronic Plan: She does not appear to be an exacerbation of COPD today. NIOX procedure performed in the office today and returned within normal limits. This indicates that the patient does not require any additional corticosteroid. No need for prednisone or antibiotic. She always has significant wheezing on exam, which I believe is related to her Duggan's esophagus. I have asked her to contact our office with increase in wheezing and cough so that she can come in and have a NIOX performed to make sure that the patient is appropriately managed with prednisone when indicated. Continue current maintenance medication, on maximal traditional medical treatment, including triple therapy on Trelegy and biologic therapy with Fasenra. No additional testing at this time. An acute visit and typically be arranged within 1-2 days. Follow-up in January 2025. She was provided with a pneumonia vaccination and annual influenza vaccine today. (2) Smoking greater than 30 pack years: Status: Chronic Plan: Encourage complete smoking cessation. She admits that she would like to try to quit smoking before her follow-up visit. She is appropriate for repeat LDCT which is due in December 2024, ordered previously. Follow-up in January 2025 to discuss test results. Orders: Orders NIOX Today R06.2 - Wheezing Influenza Immunization Today J44.9 - Chronic obstructive pulmonary disease, unspecified Pneumonia Immunization Today J44.9 - Chronic obstructive pulmonary disease, unspecified, Z23 - Encounter for immunization Medications: Changed From benralizumab (Fasenra Pen) 30 mg subcut Q56D To benralizumab (Fasenra Pen) 30 mg subcut Q8W 1 mL 11RF Plan Details Follow Up: 01/06/25 (LMR) HPI 3 M FU Chief Complaint: Wheezing HPI Comments Details: This patient presents to the office today for follow-up of her severe asthma with COPD overlap syndrome. She is ambulatory, currently on room air and accompanied today by her significant other. She has not recently been seen in the ED or urgent care for any respiratory illness. She was on prednisone for really bad wheezing and coughing by PCP about one month ago. It did improve symptoms. She is compliant with use of Trelegy 1 puff daily. She does report rinsing her mouth out after each use. She denies any medication side effect such as sore throat or thrush. She is also compliant with Flonase daily, Claritin daily and Mucinex twice daily. She is not frequently using albuterol or DuoNebs. She is compliant with Fasenra bimonthly injections. She does have shortness of breath on exertion. She reports a cough that is productive of yellow- colored sputum but denies any hemoptysis. She reports constant wheezing. She denies chest tightness, chest pain or palpitations. She has not had any fever, chills or body aches. She continues to smoke cigarettes. She is currently smoking approximately 1/2 pack/day. Test results personally viewed with patient: Pulmonary function test completed on February 13, 2024 shows moderate restrictive dilatory impairment with symmetric reduction diffusing capacity. Intake Vital Signs 02/05/24 07:31 04/03/24 05:57 05/15/24 07:27 Height 5 ft 1 in 5 ft 3 in 5 ft 3 in Weight: 124 lb BMI 21.9 BP 129/81 H Blood Pressure Location Lt brachial Position Sitting Respiration 16 Pulse 81 Pulse Source Monitor Temp 97.4 F L Temperature Source Temporal Artery Pulse Oximetry (%) 97 Oxygen Delivery Method room air Intake Visit Reasons: 3 M FU Chief Complaint: follow up DME Vendor: N/A Accompanied by: Allergies Penicillins (PCN) Allergy (Verified 05/15/24 07:34) Anaphylaxis Medications ???Medication ???Instructions ???Recorded ???Confirmed ???Type ergocalciferol (vitamin D2) 1,250 1,250 mcg PO QWEEK 12/09/21 05/15/24 History mcg (50,000 unit) capsule phenylephrine 0.25 %-cocoa butter 1 supp DC PRN PRN Hemorrhoids 02/09/22 05/15/24 History 88.44 % rectal suppository (Preparation H(phenyleph,cocoa buttr)) amitriptyline 25 mg tablet 100 mg PO QHS 05/16/22 05/15/24 History epinephrine 0.3 mg/0.3 mL 0.3 mg (0.3 mL) IM ONCE #1 ea 01/08/23 05/15/24 Rx injection, auto-injector (EpiPen) diclofenac sodium 1 % topical gel 2 g topical ONCE 01/18/24 05/15/24 History promethazine 25 mg tablet 25 mg PO TID PRN nausea and 01/18/24 05/15/24 History vomiting tenapanor 50 mg (more content not included)... Normal [facility] 05-01-2024 CNPN Telephone (INTMWS) JANE STEINBERGE ([id number]) 1970 F FNS Date Time Provider Department 05/01/24 AMANDA WALLACE INTMWS During your visit today, we recorded the following information about you: Abbey Baker RN 05/01/2024 1:22 PM Signed Pt called in and reports she had blood in her stool x1 today. She denies any blood in the water or filling the toilet. Pt sates the stool was soft but formed. She reports she has had blood in her stool before, and she is worried it is her H. pylori. She is asking if provider would want to send in a stool kit for her. She reports Laura Hernandez POT ANNEALER has before. Pt does see Dr Friend, but she states that she sees him for her acid reflux. I asked if he had done a colonoscopy on her and she denied this. I let her know I would have provider get back to her if she wanted her to do stool kit or see Dr Friend. Please call and advise. Pt. Laura Hernandez APRN.KACY 05/01/2024 1:36 PM Signed She will need seen for this. She should also update her GI specialist as he recently did an EGD on her and may have biopsied for Hpylori. Also he will be where I send her if there is any concerns. Thank you Laura Hernandez APRN.Latasha Carreno MA 05/01/2024 3:02 PM Signed Tried calling patient, line kept ringing busy. Abbey Baker RN 05/01/2024 4:16 PM Signed Pt called and is notified of providers message and instructions. Pt voices understanding. She states she knows he did biopsies when he did the EGD, but she doesn't know if it was for the H. Pylori. She said she will call his office and ask and see if she can get in there, and if not she will call to get I over here. Abbey Baker RN Allergies As of Date: 05/01/2024 Noted Allergy Reaction PENICILLINS 06/11/2006 10 - Anaphylaxis Date Reviewed: 04/07/2024 Reviewed by: Ashley Jimenes MA - Fully Assessed Reason for Visit: Patient Update [5654] Patient Question [6687] Prescriptions as of 05/01/2024 - atorvastatin (LIPITOR) 20 mg tablet Take 1 tablet by mouth once daily. - varenicline (CHANTIX STARTING MONTH BOX) 0.5 mg (11)- 1 mg (42) tablet Take 0.5 mg by mouth once daily on Days 1 through 3, THEN 0.5 mg twice daily on Days 4 through 7, THEN 1 mg twice daily on Day 8 and thereafter - EPINEPHrine (EPIPEN) 0.3 mg/0.3 mL auto-injector Inject intramuscularly. - multivit with minerals/lutein (MULTIVITAMIN 50 PLUS ORAL) Take by mouth. - amitriptyline (ELAVIL) 100 mg tablet take 1 tablet by mouth once daily at bedtime - IBSRELA 50 mg tablet TAKE 1 TABLET BY MOUTH TWICE A DAY 10 MINUTES BEFORE EATING - promethazine (PHENERGAN) 25 mg tablet Take 1 tablet by mouth every 8 hours as needed (for nausea). - fluticasone (FLONASE) 50 mcg/actuation nasal spray Use 2 Sprays in each nostril once daily. Rinse mouth after use. - ibuprofen (MOTRIN) 800 mg tablet Take 1 tablet by mouth every 8 hours as needed for pain. - diclofenac (VOLTAREN) 1 % topical gel Apply 2 g to affected area twice daily. - FASENRA PEN 30 mg/mL auto-injector - Dexlansoprazole (DEXILANT) 60 mg CpDM Take 60 mg by mouth once daily. - magnesium hydroxide (MILK OF MAGNESIA) 400 mg/5 mL suspension Take 15 mL by mouth once daily as needed for constipation. - bisacodyl (DULCOLAX, BISACODYL,) 10 mg supp 1 Suppository by RECTAL route once daily as needed for constipation. - famotidine (PEPCID) 40 mg tablet Take 1 tablet by mouth once daily as needed. - MUCUS RELIEF ER 600 mg 12 hr tablet Take 1,200 mg by mouth twice daily. - montelukast (SINGULAIR) 10 mg tablet Take 1 tablet by mouth daily at bedtime. - fluticasone-umeclidin- vilanter (TRELEGY ELLIPTA) 200-62.5-25 mcg inhalation powder Inhale as instructed. - albuterol HFA (VENTOLIN HFA) 90 mcg/actuation inhaler Inhale 2 Puffs as instructed every 4 hours as needed for wheezing/shortness of breath. - L. acidophilus-L. rhamnosus 15 billion cell cap Take 1 capsule by mouth once daily. FLORAJEN WOMEN. If on antibiotic, take at least 1-2 hours before or after antibiotic. KEEP REFRIGERATED - ergocalciferol 50,000 unit capsule (VITAMIN D2, DRISDOL) Take 1 capsule by mouth one time a week. - albuterol (PROVENTIL) 2.5 mg /3 mL (0.083 %) nebulizer solution Use 3 mL via nebulizer every 6 hours as needed. - COMPACT SPACE CHAMBER as directed. - ipratropium-albuterol (DUONEB) 0.5 mg-3 mg(2.5 mg base)/3 mL nebu Inhale 3 mL as instructed every 4 hours as needed. - PULSE OXIMETER CONTEC 1 Each as needed. - Comp Stocking,Knee,Regular, Med misc 2 Each once daily. - loratadine (CLARITIN) 10 mg tablet Take 1 tablet by mouth once daily. Meds Comments as of 06/25/2021: ` Problem List As Of Date 05/01/2024 Noted Resolved Asthma [J45.909] HISTORY OF CANCER OF UTERUS [Z85.42] 06/11/2006 05/18/2016 TOBACCO USE DISORDER [F17.200] 06/11/2006 Anorexia nervosa [F50.00] 06/11/2006 02/14/2024 Bulimia nervos (more content not included)... Normal [facility] Dexa Bone Density Studyon Dexa Bone Density Study [facility] Services [address] [place] [address] Dexa Bone Density Study MR#: [id number] Acct: [id number] Name: JANE STEINBERG Rep #: [id number] : 1970 F 53 From: Baltazar mahan MD PCP: LAURA HERNANDEZ, POT ANNEALER-C Status: REG CLI Study: Dexa Bone Density Study Date of Exam: 05/01/24 Exam# [id number] Ordering Dr: Pelon Hamilton DO [id number] STUDY: DUAL ENERGY X-RAY ABSORPTIOMETRY / DXA REASON FOR EXAM: Female, 53 years old. Osteoporosis TECHNIQUE: Bone Mineral Density (BMD) measurements of lumbar spine and bilateral hips were obtained. COMPARISON: None. FINDINGS: Lumbar Spine (L1-L4): g/cm2 (1.025) / T-score (-0.2) / Z-score (0.8) Findings are suggestive of normal bone density with a low fracture risk. Left Femur Total: g/cm2 (0.802) / T-score (-1.2) / Z-score (-0.5) Left Femoral Neck: g/cm2 (0.597) / T-score (-2.3) / Z-score (-1.3) Right Femur Total: g/cm2 (0.825) / T-score (-1.0) / Z-score (-0.3) Right Femoral Neck: g/cm2 (0.637) / T-score (-1.9) / Z-score (-0.9) BD/Dexa Bone Density Study IMPRESSION: The patient is considered osteopenic as outlined below according to World Armin Organization (WHO) criteria with a high fracture risk. Reference Information: The T-score is the number of standard deviations above or below the standard which is normal for young adults at their peak bone mineral density. The World Health Organization (WHO) interprets the T-scores as follows: Above -1 Normal bone density Between -1 and -2.5 Osteopenia Equal to / or below -2.5 Osteoporosis As a practical clinical guideline, osteopenia may be graded as follows: Mild -1 through -1.5 Moderate -1.6 through -2.0 Severe -2.1 through -2.4 The Z-score is the number of standard deviations above or below age-matched controls. A Z-score of less than -1.5 would be considered abnormal. References: 1. NIH Osteoporosis and Related Bone Diseases www osteo.org 2. International Society for Clinical Densitometry www iscd.org 3. National Osteoporosis Foundation www nof.org Electronically Signed: Baltazar Greene MD at 15:07 EDT Reading Location ID and State: [address] [place] [address] , Service support , CC: NAI HERNANDEZ; Pelon Friend, Certified Orthotic Fitter: Signed Normal [facility] Amylaseon 04-16-2024 DANNY 26 U/L Normal 25-115 [facility] Comment on above: Performed By: #### L 501.2400, L560.2670 ####[facility] [id number] [place], [place], [address] Lipaseon 04-16-2024 Lipase [Catalytic activity/Vol] 24 U/L Normal 13-75 [facility] Comment on above: Result Comment: Fuentes schofield note: LIPASE revised reference range effective 22. New Lipase methodology. Expected to produce lower values than the previous assay method. NEW Reference Range: 13 - 75 U/L Performed By: #### L 501.2400, [id number] ####[facility] [id number] [place], [address] Gastroenterology Visit Repor [facility] 04-14-2024 Gastroenterology Visit Report [facility] Gastroenterology [address] [place] [address] OFFICE VISIT Date of Service: 04/14/24 MR#: [id number] Acct: [id number] Name: JANE STEINBERG Rep #: [id number] : 1970 Provider: NAI arredondo Age/Sex: 53/F [place] [facility] [place]: Signed Intake Vital Signs 04/03/24 05:57 Height 5 ft 3 in Intake Visit Reasons: Biopsy results Chief Complaint: follow up Allergies Penicillins (PCN) Allergy (Verified 02/05/24 08:52) Anaphylaxis Nurse's Note: OV 04.14.24 Pt here for a f/u of recent imaging and labs. Pt reports N/V every night. Has BM daily. Takes Ibsresla daily. [facility] Medical History Wears glasses Wears dentures Cancer History of IBS Heartburn Gastric reflux Smoker Shortness of breath on exertion Chronic cough Leg cramps History of echocardiogram Cholelithiasis Irritable bowel syndrome with constipation Hiatal hernia Constipation Snoring Hx of migraines Lung disease Internal hemorrhoids History of uterine cancer H. pylori infection GERD (gastroesophageal reflux disease) Emphysema lung Bulimia nervosa Duggan's esophagus Asthma Anxiety Anorexia nervosa COPD (chronic obstructive pulmonary disease) Surgical History History of cholecystectomy History of hysterectomy History of appendectomy Family History Mother Hypertension Heart disease Eczema AAA (abdominal aortic aneurysm) Fibromyalgia Father Lung cancer Alcohol abuse Colon cancer Sister Hypertension Asthma Migraine headache Gout Fibromyalgia Aunt Breast cancer Aunt Breast cancer Social History Smoking Status: Current every day smoker tobacco type: cigarettes alcohol intake: current alcohol intake frequency: holidays/special occasions only substance use type: does not use HPI HPI Chief Complaint: follow up Details: JANE STEINBERG, is a 53 F who presents to the office today for FU with desire to review EGD results and complaints of continued nausea and emesis waking her up at night due to severe heartburn. She denies difficulty chewing and swallowing, denies diarrhea and constipation while on Ibsrela. Denies hematochezia and melena. ROS Const Constitutional: Positive for fatigue and headache(s); No fever(s) or weight change Eyes Eyes: No change in vision ENT ENT: Positive for headache(s); No abnormal hearing or difficulty swallowing Resp Respiratory: Positive for cough; No change in phlegm color Cardio Cardiology: No chest pain at rest, chest pain with exertion or leg pain with exertion Gastro GI: Positive for heartburn and vomiting; No abdominal pain, belching, bloating, change in bowel habits, change in stool character, coffee ground emesis, constipation, cramping, diarrhea, difficulty swallowing, feeling full early, excessive flatus, incontinent of stools, Vomiting blood/hematemesis, Blood in stool, loose stools, Black,tarry stools, nausea/dyspepsia, pain with swallowing or other Genitourinary-Female: No difficulty urinating Musc Musculoskeletal: Positive for joint pain, back pain and leg pain at night; No leg pain with exertion Skin Skin: No yellowing of the eye or itchy eyes Neuro Neurology: Positive for headache(s); No abnormal hearing Psych Psychiatric: Positive for anxiety and No depression Endo Endocrine: Positive for fatigue; No cold intolerance, heat intolerance or weight change Aller/Imm Allergy/Immunologic: No food intolerance or itchy eyes Adelso/Lymp Hematologic/Lymphatic: No easy bleeding or easy bruising Exam Const General: cooperative, healthy appearing, comfortable and no acute distress Nutritional Appearance: average body habitus Orientation: alert [facility] Head: normal to inspection Ears: hearing grossly normal bilaterally Nose: external nose normal Face and sinus: normal facial exam and face symmetric Eyes General: appearance normal, both eyes and all related structures Neck Neck: normal visual inspection and full ROM Chest Chest palpation inspection: normal inspection of the chest Resp Effort Inspection: normal respiratory effort, able to speak in complete sentences and symmetric chest movement GI Inspection: normal to inspection Skin General: no rashes or lesions noted Neuro General: patient alert, patient awake and patient oriented x3 Cognition: normal cognition Speech: speech normal Gait: normal gait Extrem General: full ROM Psych Appearance: well kempt Mental Status: mental status grossly normal Mood: congruent mood Affect: normal affect Speech and Movement: speech and movement normal Attitude: cooperative Tho (more content not included)... Normal [facility] Hepatobilliary Imagingon Hepatobilliary Imaging [facility] Imaging Services [address] [place], [place] [address] Hepatobilliary Imaging MR#: [id number] Acct: [id number] Name: JANE STEINBERG Rep #: [id number] : 1970 F 53 From: Melanie Moses PCP: NAI LUTZ Status: REG CLI Study: Hepatobilliary Imaging Date of Exam: 04/09/24 Exam# [id number] Ordering Dr: Pelon Hamilton DO [id number] CLINICAL: 53-year-old female with history of abdominal bloating status post cholecystectomy. RADIONUCLIDE HEPATOBILIARY SCINTIGRAPHY COMPARISON: Abdominal ultrasound report 04/05/2024 FINDINGS: Following the intravenous administration of 5.3 mCi of 99m Tc Mebrofenin, hepatobiliary images reveal: 1. Relatively prompt and homogeneous radiopharmaceutical concentration is noted by a normal sized liver. No parenchymal defects are identified. 2. Gallbladder activity is not identified during 60 minutes of sequential imaging commensurate with known history of prior cholecystectomy. 3. Small intestinal tract is observed at 48 minutes post radiopharmaceutical administration. 4. Washout of the radiopharmaceutical by the hepatic parenchyma appears qualitatively normal. NM/Hepatobilliary Imaging IMPRESSION: 1. ABNORMAL 99m Tc Mebrofenin hepatobiliary imaging examination. A. Nonvisualization of the gallbladder is consistent with prior cholecystectomy. B. Further evaluation of this individual may be undertaken utilizing pre-examination CCK quantitative hepatobiliary scintigraphy to exclude the presence of post cholecystectomy syndrome-Sphincter of Oddi dysfunction. (Ifeanyi et al, J Nucl Med 33: 1216, 1992). Electronically Signed: Melanie Deleon DO at 11:58 EDT , CC: NAI Hamilton DO Certified Orthotic Fitter: Signed Normal [facility] CNOVon 04-07-2024 CNOV Office Visit (CARDMM ) JANE STEINBERG ([id number]) 1970 F FNS Date Time Provider Department 04/07/24 9:40 AM MICKEY LÓPEZ During your visit today, we recorded the following information about you: Pulse Blood pressure Weight 78/minute 106/72 54.6 kg Mickey López MD 04/07/2024 10:23 AM Signed [facility] SECTION OF REGIONAL CARDIOLOGY OUTPATIENT VISIT DATE 04/07/2024 OUTPATIENT VISIT TYPE NEW PRIMARY CARE PHYSICIAN: Amanda Wallace [address] [place] [address] HISTORY OF PRESENT ILLNESS: Ms. Steinberg is a 53 year old female, hx of anorexia nervosa, ISAAC, anxiety, bulimia nervosa, smoker, Duggan's, emphysema, GERD, hiatal hernia, COVID, asthma presents for syncope management. She reported a syncopal episode a few weeks ago after getting up and walking across the [place]. Preceded by lightheadedness. Denied chest pain, SOB, palpitations prior to episode. Reported feeling fatigued after the episode. She denies chest pain, SOB, palpitations, orthopnea, PND, leg swelling. She drinks 3x 16 oz of water daily. Underwent cardiac testing, results of which are summarized below. She states that she is able to engage in walking exercises. TTT 02/26/24: vasodepressor response- orthostatic drop in BP with lowest SBP 54 Carotid artery duplex 02/20/24: MIKE 20-39%, LICA 0-19%. Zio 01/15-01/25 ; HR of 50 bpm, max HR of 136 bpm, and avg HR of 90 bpm. Predominant underlying rhythm was Sinus Rhythm. Isolated SVEs were rare (<1.0%), SVE Couplets were rare (<1.0%), and no SVE Triplets were present. Isolated VEs were rare (<1.0%), and no VE Couplets or VE Triplets were present. TTE 11/05/23: EF 61%, 0.9/0.9, 1-2+ MR, trace DC, asc Ao 2.7 cm. PAST MEDICAL HISTORY Diagnosis Date Anorexia nervosa 06/11/2006 Stable; treated in past Anxiety Asthma 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 02/13/2020 Bulimia nervosa 06/11/2006 Stable, treated in past Cancer (HCC) Chest pain Cholelithiasis 07/24/2023 Chronic obstructive pulmonary disease (COPD) (HCC) Emphysema lung (HCC) GERD (gastroesophageal reflux disease) H. pylori infection cronic Hiatal hernia 02/13/2020 small HISTORY OF CANCER OF UTERUS 06/11/20062003, Hysterectomy - complete History of COVID-19 07/10/2023 Internal hemorrhoids Lung disease Migraines Overweight (BMI 25.0-29.9) 07/10/2023 Snoring Tobacco use disorder 06/11/2006 Quit 09/2015. Unspecified asthma(493.90) Childhood diagnosis. PAST SURGICAL HISTORY Procedure Laterality Date APPENDECTOMY 1998 COLONOSCOPY 01/12/2023 no specimens, next colonoscopy 2029 EGD WITH BIOPSY(S) 03/13/2017 Dr. Shook EGD WITH BIOPSY(S) 02/13/2020 small hiatal hernia; Duggan's without dysplasia; Dr. Montoya EGD WITH BIOPSY(S) 10/06/2021 H. pylori +; Duggan's without dysplasia; Dr. Riggs EGD WITH BIOPSY(S) 09/12/2022 neg for H. pylori; Dr. Riggs LAPS SURG CHOLECYSTECTOMY W/CHOLANGIOGRAPHY 07/24/2023 PAST SURGICAL HISTORY OF 2004 Lymph Node Bx 1999 TOTAL ABDOMINAL HYSTERECT W/WO RMVL TUBE OVARY 2004 and BSO - pelvic pain/benign Social History Tobacco Use Smoking status: Every Day Current packs/day: 0.00 Average packs/day: 0.3 packs/day for 35.0 years (8.8 ttl pk-yrs) Types: Cigarettes Start date: 11/17/1986 Last attempt to quit: 11/23/2021 Years since quittin.3 Smokeless tobacco: Never Vaping Use Vaping status: Never Used Substance Use Topics Alcohol use: Not Currently Comment: Rarely Drug use: No FAMILY HISTORY Problem Relation Age of Onset Hypertension Mother Heart Mother Eczema Mother other (AAA) Mother other (Fibromyalgia) Mother Alcohol/Drug Father Alcohol Cancer Father lung Colon Cancer Father Hypertension Sister Asthma Sister other (Migraines) Sister other (Gout) Sister other (Fibromyalgia) Sister Cancer Sister 32 Ovarian cancer Sister 32 Breast Cancer Maternal Aunt 2 maternal aunts. other (MICRO PHOTOGRAPHER cancer) No Family History Anesthesia Problems No Family History Blood Clots No Family History ALLERGIES Allergen Reactions Penicillins Anaphylaxis CURRENT MEDICATIONS: varenicline (CHANTIX STARTING MONTH BOX) 0.5 mg (11)- 1 mg (42) tablet Take 0.5 mg by mouth once daily on Days 1 through 3, THEN 0.5 mg twice daily on Days 4 through 7, THEN 1 mg twice daily on Day 8 and thereafter levoFLOXacin (LEVAQUIN) 750 mg tablet Take 1 tablet by mouth once daily for 7 days. predniSONE (DELTASONE) 10 mg tablet Take 4 tabs daily for 3 days, then 2 tabs daily for 3 days, then 1 tab daily for 3 days with food. EPINEPHrine (EPIPEN) 0.3 mg/0.3 mL auto-injector Inject intramuscularly. multivit with minerals/lutein (MULTIVITAMIN 50 PLUS ORAL) Take by mouth. amitriptyline (ELAVIL) 100 mg tablet take 1 tablet by mouth once daily at bedtime IBSRELA 5 (more content not included)... Normal [facility] ABD Complete w/ Elastography on 04-05-2024 ABD Complete w/ Elastography [facility] Imaging Services [address] [place] [address] [id number] ABD Complete w/ Elastography MR#: [id number] Acct: [id number] Name: JANE STEINBERG Rep #: [id number] : 1970 F 53 From: Baltazar mahan MD PCP: LAURA HERNANDEZ POT ANNEALER-C Status: REG CLI Study: ABD Complete w/ Elastography Date of Exam: Exam# [id number] Ordering Dr: Pelon Hamilton DO [id number] STUDY: ABDOMINAL ULTRASOUND - RIGHT UPPER QUADRANT; ELASTOGRAPHY REASON FOR VISIT: Female, 53 years old. Fatty infiltration of the liver. TECHNIQUE: Ultrasound evaluation of the right upper quadrant was performed with real-time and static pena-scale imaging. Point quantification shear wave elastography was performed (C-Note). TECHNICAL QUALITY: Adequate. COMPARISON: None. FINDINGS: Liver: The liver is enlarged and measures 18.7 cm. There is increased echogenicity consistent with fatty infiltration. The bile ducts are within normal limits. There is hepatic color flow. The direction of portal flow is hepatopetal. There is no demonstrated mass lesion. Median liver stiffness measured 5.6 kPa. Gallbladder: The patient is status post cholecystectomy. Common Bile Duct (C.B.D.): The common bile duct measures 7 mm. Pancreas: There is normal echogenicity of the visualized pancreas. There is no demonstrated pancreatic mass or cyst. Right Kidney: Normal size of the right kidney. The right kidney measures 10.1 cm x 4.6 cm x 3.5 cm. Normal renal cortex. The right cortex measures 1.1 cm. There is no demonstrated renal mass or cyst. There is no right hydronephrosis. US/ABD Complete w/ Elastography IMPRESSION: 1. Liver stiffness measures 5.6 kPa compatible with F0-F1 (Normal to mild liver fibrosis) Metavir score. Electronically Signed: Baltazar Greene MD at 10:38 EDT , CC: NAI HERNANDEZ; Pelon Hamilton DO Certified Orthotic Fitter: Signed Normal [facility] Gastric Emptying Studyon Gastric Emptying Study [facility] Imaging Services [address] [place], [place] [address] Gastric Emptying Study MR#: [id number] Acct: [id number] Name: JANE STEINBERG Rep #: [id number] : 1970 F 53 From: Melanie Monge O PCP: NAI LUTZ Status: REG CLI Study: Gastric Emptying Study Date of Exam: 04/04/24 Exam# [id number] Ordering Dr: Pelon Hamilton DO [id number] CLINICAL: 53-year-old female with history of abdominal bloating. SEMI-SOLID PHASE 99m Tc SULFUR COLLOID GASTRIC EMPTYING STUDY COMPARISON: None available FINDINGS: The patient was administered 1.1 mCi of 99m Tc sulfur colloid mixed with oatmeal and consumed per os. Image acquisitions in the anterior-posterior projections were obtained for 60 minutes. There is prompt visualization of the stomach. There is no gastroesophageal reflux identified. First order kinetics are maintained throughout the duration of the acquisitions. The T ? linear fit was calculated to be 60.46 minutes, (Normal: 12-56 minutes). NM/Gastric Emptying Study IMPRESSION: 1. ABNORMAL 99m Tc sulfur colloid semi-solid phase (oatmeal) gastric emptying imaging examination. A. There is mild delayed semi-solid phase gastric emptying compared to normal controls with maintained first order kinetics throughout all components of the examination. (Ellie et al, J Nucl Med Tech 38: 186, 2010). Electronically Signed: Melanie Deleon DO at 15:47 EDT Reading Location ID and State: [address] [place] [address] Tel , Service support , CC: POT ANNEALER-C LAURA HERNANDEZ; Pelon Hamilton DO Certified Orthotic Fitter: Signed Normal [facility] EGD Reporton 04-03-2024 EGD Report [facility] Medical Records Department [address] [place] [address] EGD Report MR#: [id number] Acct: [id number] Name: JANE STEINBERG Rep #: [id number] : 1970 53 From: Pelon Hamilton DO PCP: NAI LUTZ Status:REG SDC Patient Name: Jane Steinberg Procedure Date: 04/03/2024 6:17 AM Date of : 1970 Age: 53 Procedure: Upper GI endoscopy Indications: Epigastric abdominal pain, Functional Dyspepsia, Indigestion, Heartburn, Failure to respond to medical treatment Providers: Pelon Hamilton DO Medicines: Monitored Anesthesia Care Patient Profile: This is a 53 year old female. Refer to note in patient chart for documentation of history and physical. Patient has symptoms of chronic dyspepsia, chronic heartburn and chronic nausea. Complications: No immediate complications. Procedure: Pre-Anesthesia Assessment: - Prior to the procedure, a History and Physical was performed, and patient medications and allergies were reviewed. The patient is competent. The risks and benefits of the procedure and the sedation options and risks were discussed with the patient. All questions were answered and informed consent was obtained. Patient identification and proposed procedure were verified by the physician. Mental Status Examination: normal. Airway Examination: normal oropharyngeal airway and neck mobility. Prophylactic Antibiotics: The patient does not require prophylactic antibiotics. Prior Anticoagulants: The patient has taken no anticoagulant or antiplatelet agents except for NSAID medication. ASA Grade Assessment: II - A patient with mild systemic disease. After reviewing the risks and benefits, the patient was deemed in satisfactory condition to undergo the procedure. The anesthesia plan was to use monitored anesthesia care (MAC). Immediately prior to administration of medications, the patient was re-assessed for adequacy to receive sedatives. The heart rate, respiratory rate, oxygen saturations, blood pressure, adequacy of pulmonary ventilation, and response to care were monitored throughout the procedure. The physical status of the patient was re-assessed after the procedure. After obtaining informed consent, the endoscope was passed under direct vision. Throughout the procedure, the patient's blood pressure, pulse, and oxygen saturations were monitored continuously. The Endoscope was introduced through the mouth, and advanced to the second part of duodenum. The upper GI endoscopy was accomplished without difficulty. The patient tolerated the procedure well. Scope In: 6:50:05 AM Scope Out: 6:56:32 AM Total Procedure Duration Time 0 hours 6 minutes 27 seconds Findings: LA Grade B (one or more mucosal breaks greater than 5 mm, not extending between the tops of two mucosal folds) esophagitis with no bleeding was found 37 to 40 cm from the incisors. Biopsies were taken with a cold forceps for histology. No biopsies or other specimens were collected for this exam. Patchy moderate inflammation characterized by erosions, erythema and linear erosions was found in the gastric antrum. Biopsies were taken with a cold forceps for histology. Verification of patient identification for the specimen was done. Estimated blood loss was minimal. Biopsies were taken with a cold forceps for histology. Biopsies were taken with a cold forceps for Helicobacter pylori testing. Verification of patient identification for the specimen was done. Estimated blood loss was minimal. Patchy mildly erythematous mucosa without active bleeding and with no stigmata of bleeding was found in the first portion of the duodenum. Biopsies were taken with a cold forceps for histology. Verification of patient identification for the specimen was done. Estimated blood loss was minimal. Impression: - LA Grade B erosive esophagitis with no bleeding. Biopsied. No specimens collected. - Chronic gastritis. Biopsied. - Erythematous duodenopathy. Biopsied. Recommendation: - Discharge patient to home. - Resume previous diet. - Continue present medications. - Await pathology results. Procedure Code(s): --- Professional --- 73440, Esophagogastroduodenos copy, flexible, transoral; with biopsy, single or multiple CPT copyright 2021 [employer]. All rights reserved. The codes documented in this report are preliminary and upon hide dyer review may be revised to meet current compliance requirements. Pelon Hamilton DO 04/03/2024 7:03:57 AM This report has been signed electronically. Number of Addenda: 0 Note Initiated On: 04/03/2024 6:17 AM 04/03/24 0704 Date Pelon Carbajal Signature: Date (if indicated) CC: POT ANNEALERAndria Cooper (more content not included)... Normal [facility] H Pylori (initial)on 024 H Pylori (initial) -- ---- Patient Age/Sex Location Account Attending Physician ---- JANE STEINBERG 53/F EN [id number] Pelon Hamilton DO ---- Specimen: [id number] Received: 04/03/24 Status: SHANNAN Tavarez Num: [id number] Spec Type: IMMUNO Subm Dr: Pelon Hamilton DO PHYSICIAN INSTITUTION [place] [address] SPECIMEN INFORMATION: Tissue Source: B- Gastric antrum Clinical Info: GERD Specimen Number: [id number] CPT code: 49461 METHODOLOGY: Deparaffinized sections of prefer/formalin-fixed tissue or PAP/DQ stained slides are incubated with monoclonal/polyclonal antibodies/oligonucleo tide probes. Localization is made via biotin free immunoperoxidase method. Appropriate controls are performed and reacted as expected. Results on target cell population are indicated in the following table: RESULTS: ANTIBODY / CLONE RESULT Block B H Pylori (polyclonal) negative These tests were developed and their performance characteristics determined by [facility]. They may not have been cleared or approved by the U.S. Food and Drug Administration. The FDA has determined that such clearance or approval is not necessary. The above immunohistochemical/du alISH markers are ordered and reviewed by the Pathologist. INTERPRETATION: B. Gastric antrum, biopsy: Negative for Helicobacter pylori organisms. AM.mr 04/04/2024 Signed (signature on file) Dr. Senthil Gonsales, DO 04/04/24 1336 ---- Normal [facility] Comment on above: Performed By: #### P H.PYLORI ####[facility] [address] [facility] [place], [address] MR/POSTOP.WILMAR 04-03-2024 MR/POSTOP.[facility] Medical Records Department [address] [place] [address] Anesthesia Postop Eval I 04/03/24 07 MR#: [id number] Acct: [id number] Name: JANE STEINBERG Rep #: [id number] : 1970 53 From: Paul Son PCP: LAURA HERNANDEZ, POT ANNEALER-C Status:REG SDC Y Race: C Location: [place] [address] Anesthesia: Postop Eval I Current Vital Signs Temperature: 97.4 F Pulse Rate: 82 Blood Pressure: 96/60 Respiratory Rate: 16 Pulse Ox: 96 Oxygen Delivery Method: Room Air Assessment Airway patent: Yes Spontaneous unlabored respirations: Yes Mental status: Asleep nausea: No Vomiting: No Anesthesia Complication: No Fluid Hydration Crystalloid volume administer (ml): 400 Total IV fluid infused: 400 Progress Note Anesthesia document: Postop Eval 1 completed: Yes 04/03/24703 Date Paul Son Cosigner Signature: Date CC: Signed Normal [facility] MR/MAMOZYTA1vt 04-03-2024 MR/POSTOPAN2 [facility] Medical Records Department [address] [place] [address] Anesthesia Postop Eval II 04/03/24723 MR#: [id number] Acct: [id number] Name: JANE STEINBERG Rep #: [id number] : 1970 53 From: Aydin De Souza MD PCP: LAURA HERANNDEZ POT ANNEALER-C Status:REG [facility] [place] Y Race: C Location: [address] Anesthesia Postop Eval I Sum Postop Eval Completion status Anesthesia document: Postop Eval 1 completed: Yes Anesthesia Postop Eval I Summary Anesthesia Postop Eval I Summary: Anesthesia Postop Eval I: Assessment Summary Airway patent Yes 04/03/24 07:04 [email or web address] Spontaneous unlabored Yes 04/03/24 07:04 [email or web address] respirations Mental status Asleep 04/03/24 07:04 [email or web address] nausea No 04/03/24 07:04 [email or web address] Vomiting No 04/03/24 07:04 [email or web address] Anesthesia Postop Eval I: Fluid Summary Crystalloid volume administer 400 04/03/24 07:04 [email or web address] (ml) Colloids volume administered ( ml) Blood Product volume administered (ml) Total IV fluid infused 400 04/03/24 07:04 [email or web address] Anesthesia Postop Eval I: Summary Notes Anesthesia Complication No 04/03/24 07:04 [email or web address] Anesthesia Complication Comment: Post-operative progress note Anesthesia: Postop Eval II Evaluation Mental status: Awake Pain Level: 0 nausea: No Vomiting: No 04/03/24723 Date Aydin Wangigner Signature: Date CC: Signed Normal [facility] Special Stain Group Ion 03-10 Special Stain Group I ---- ---- Patient Age/Sex Location Account Attending Physician ---- JANE STEINBERG 53/F EN [id number] Pelon Hamilton DO ---- Specimen: [id number] Received: 04/03/24 Status: SHANNAN Tavarez Num: [id number] Spec Type: EGD BIOPSY Subm Dr: Pelon Hamilton, DO HEADER OPERATION: EGD with biopsies PRE-OP DIAGNOSIS: GERD TISSUE SUBMITTED: A- Duodenum biopsy, B- Gastric antrum biopsy, C- Distal esophagus biopsy ---- MICROSCOPIC DIAGNOSIS A. Duodenum, biopsy: No pathologic change. B. Gastric antrum, biopsy: Chronic gastritis. C. Distal esophagus, biopsy: Gastroesophageal junctional mucosa with mild chronic inflammation. Goblet cell metaplasia consistent with Duggan's esophagus. No evidence of dysplasia. See comment. MAGDIEL/ 04/04/2024 COMMENT B. The results of immunohistochemistry for Helicobacter pylori will be reported separately ([id number]). C. Alcian blue/PAS stain with matched control is used in the evaluation of the specimen. Immunohistochemistry ([id number]) for P53 and Ki-67 will be performed and results will be reported separately. MICROSCOPIC DESCRIPTION Slides are reviewed. GROSS DESCRIPTION A. Received in fixative is one container labeled with the patient's name and designated Duodenum biopsy. The specimen consists of two irregular fragments of light lewis soft tissue that in aggregate measure 0.6 x 0.5 x 0.1 cm. The specimen is totally submitted in one cassette. B. Received in fixative is one container labeled with the patient's name and designated Gastric antrum biopsy. The specimen consists of multiple irregular fragments of light lewis soft tissue that in aggregate measure 1.5 x 0.4 x 0.1 cm. The specimen is totally submitted in one cassette. C. Received in fixative is one container labeled with the patient's name and designated Distal esophagus biopsy. The specimen consists of multiple irregular fragments of light lewis soft tissue that in aggregate measure 0.8 x 0.5 x 0.1 cm. The specimen is totally submitted in one cassette. 04/03/2024 TC: ---- Patient Age/Sex Location Account Attending Physician ---- YOHANNES STEINBERGELA CAPRICE 53/F EN [id number] Pelon Hamilton DO ---- CPT:51163x1,31287 ---- Patient Age/Sex Location Account Attending Physician ---- JANE STEINBERG 53/F EN [id number] Pelon Hamilton DO ---- Signed (signature on file) Dr. Senthil Gonsales, 04/07/24 1141 ---- Normal [facility] Comment on above: Performed By: #### P SSI #### [facility] [address] [place], [address] CNOVon 03-31-2024 CNOV Office Visit (INTMWS ) JANE STEINBERG ([id number]) 1970 F [facility] Date Time Provider Department 03/31/24 2:20 PM LAURA HERNANDEZ During your visit today, we recorded the following information about you: Pulse Respiration Blood pressure Weight 84/minute 16/minute 128/76 54.9 kg Laura Hernandez APRN.DUMPER 03/31/2024 2:45 PM Signed CC: Patient presents with: Recheck: 1 month follow up HPI Jane Steinberg is a 53 year old female who presents today for syncope. Tilt table with lowering blood pressure with symptoms. CT brain: unremarkable Carotid US: Left 0-19% stenosis. Right 20-39% stenosis CXR: unremarkable Echo: Normal in the last 5 months Zio: Unremarkable Scheduled to see cardiology next week. Has had 2 episodes since last being seen both occurring when she was standing. Once symptoms started she sat down so did not pass out. COPD: Feels over the past 7 days is having increase in coughing, shortness of breath, and wheezing. Using acapella device as ordered by pulmonology but does not see them until next month. Coughing up thick yellow sputum that can lead to vomiting. Denies fever, chills, chest pain, edema, palpitations, sore throat, increase in regular headaches, nausea or diarrhea. Previously treated for last exacerbation 6 weeks ago with full resolution. Smoking on average 1/2 pack or less daily. REVIEW OF SYSTEMS See HPI PAST MEDICAL HISTORY Diagnosis Date Anorexia nervosa 06/11/2006 Stable; treated in past Anxiety Asthma 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 02/13/2020 Bulimia nervosa 06/11/2006 Stable, treated in past Cancer (HCC) Chest pain Cholelithiasis 07/24/2023 Chronic obstructive pulmonary disease (COPD) (HCC) Emphysema lung (HCC) GERD (gastroesophageal reflux disease) H. pylori infection cronic Hiatal hernia 02/13/2020 small HISTORY OF CANCER OF UTERUS 06/11/20062003, Hysterectomy - complete History of COVID-19 07/10/2023 Internal hemorrhoids Lung disease Migraines Overweight (BMI 25.0-29.9) 07/10/2023 Snoring Tobacco use disorder 06/11/2006 Quit 09/2015. Unspecified asthma(493.90) Childhood diagnosis. PAST SURGICAL HISTORY Procedure Laterality Date APPENDECTOMY 1998 COLONOSCOPY 01/12/2023 no specimens, next colonoscopy 2029 EGD WITH BIOPSY(S) 03/13/2017 Dr. Shook EGD WITH BIOPSY(S) 02/13/2020 small hiatal hernia; Duggan's without dysplasia; Dr. Montoya EGD WITH BIOPSY(S) 10/06/2021 H. pylori +; Duggan's without dysplasia; Dr. Riggs EGD WITH BIOPSY(S) 09/12/2022 neg for H. pylori; Dr. Riggs LAPS SURG CHOLECYSTECTOMY W/CHOLANGIOGRAPHY 07/24/2023 PAST SURGICAL HISTORY OF 2004 Lymph Node Bx 1999 TOTAL ABDOMINAL HYSTERECT W/WO RMVL TUBE OVARY 2004 and BSO - pelvic pain/benign ALLERGIES Penicillins MEDICATIONS EPINEPHrine (EPIPEN) 0.3 mg/0.3 mL auto-injector Inject intramuscularly. multivit with minerals/lutein (MULTIVITAMIN 50 PLUS ORAL) Take by mouth. amitriptyline (ELAVIL) 100 mg tablet take 1 tablet by mouth once daily at bedtime IBSRELA 50 mg tablet TAKE 1 TABLET BY MOUTH TWICE A DAY 10 MINUTES BEFORE EATING promethazine (PHENERGAN) 25 mg tablet Take 1 tablet by mouth every 8 hours as needed (for nausea). fluticasone (FLONASE) 50 mcg/actuation nasal spray Use 2 Sprays in each nostril once daily. Rinse mouth after use. ibuprofen (MOTRIN) 800 mg tablet Take 1 tablet by mouth every 8 hours as needed for pain. diclofenac (VOLTAREN) 1 % topical gel Apply 2 g to affected area twice daily. FASENRA PEN 30 mg/mL auto-injector Dexlansoprazole (DEXILANT) 60 mg CpDM Take 60 mg by mouth once daily. magnesium hydroxide (MILK OF MAGNESIA) 400 mg/5 mL suspension Take 15 mL by mouth once daily as needed for constipation. bisacodyl (DULCOLAX, BISACODYL,) 10 mg supp 1 Suppository by RECTAL route once daily as needed for constipation. famotidine (PEPCID) 40 mg tablet Take 1 tablet by mouth once daily as needed. MUCUS RELIEF ER 600 mg 12 hr tablet Take 1,200 mg by mouth twice daily. montelukast (SINGULAIR) 10 mg tablet Take 1 tablet by mouth daily at bedtime. fluticasone-umeclidin- vilanter (TRELEGY ELLIPTA) 200-62.5-25 mcg inhalation powder Inhale as instructed. albuterol HFA (VENTOLIN HFA) 90 mcg/actuation inhaler Inhale 2 Puffs as instructed every 4 hours as needed for wheezing/shortness of breath. L. acidophilus-L. rhamnosus 15 billion cell cap Take 1 capsule by mouth once daily. FLORAJEN WOMEN. If on antibiotic, take at least 1-2 hours before or after antibiotic. KEEP REFRIGERATED ergocalciferol 50,000 unit capsule (VITAMIN D2, DRISDOL) Take 1 capsule by mouth one time a week. albuterol (PROVENTIL) 2.5 mg /3 mL (0.083 %) nebulizer solution Use 3 mL via nebulizer every 6 hours as needed. COMPACT SPACE CHAMBER as directed. ipratropium-albuterol (DUONEB) 0.5 mg-3 mg(2.5 mg base)/3 mL nebu Inhale 3 mL as (more content not included)... Normal [facility] CHEST 2V FRONTAL/LATon XR CHEST 2V FRONTAL/LAT * * *Final Repor t* * * DATE OF EXAM: Mar 31 2024 2:50PM WOX [id number] - XR CHEST 2V FRONTAL/LAT / PROCEDURE REASON: multiple diagnoses * * * * Physician Interpretation * * * * EXAMINATION: CHEST RADIOGRAPH (2 VIEW FRONTAL and LATERAL) CLINICAL HISTORY: COPD with exacerbation (HCC) Wheezing MQ: XC2_6 EXAM DATE/TIME: 03/31/2024 2:50 PM COMPARISON: Chest x-ray on 02/14/2024 RESULT: Lines, tubes, and devices: None. Lungs and pleura: No consolidation. No lung mass. No pleural effusion. No pneumothorax. Cardiomediastinal silhouette: Normal cardiomediastinal silhouette. Bones and soft tissues: Unremarkable. IMPRESSION: No acute radiographic abnormality. Certified Orthotic Fitter: GEENA Transcribe Date/Time: Mar 31 2024 3:27P Dictated by : GENESIS HERNANDEZ MD This examination was interpreted and the report reviewed and electronically signed by: GENESIS HERNANDEZ MD on Mar 31 2024 3:28PM EST [id number] Normal [facility] XR Chest PA and Lateralon IMPRESSION: No acute radiographic abnormality. Certified Orthotic Fitter: PSC Transcribe Date/Time: Mar 31 2024 3:27P Dictated by : GENESIS HERNANDEZ MD This examination was interpreted and the report reviewed and electronically signed by: GENESIS HERNANDEZ MD on Mar 31 2024 3:28PM EST DIVISION OF RADIOLOGY * * *Final Report* * * DATE OF EXAM: Mar 31 2024 2:50PM WOX [id number] - XR CHEST 2V FRONTAL/LAT / PROCEDURE REASON: multiple diagnoses * * * * Physician Interpretation * * * * EXAMINATION: CHEST RADIOGRAPH (2 VIEW FRONTAL & LATERAL) CLINICAL HISTORY: COPD with exacerbation (HCC) Wheezing MQ: XC2_6 EXAM DATE/TIME: 03/31/2024 2:50 PM COMPARISON: Chest x-ray on 02/14/2024 RESULT: Lines, tubes, and devices: None. Lungs and pleura: No consolidation. No lung mass. No pleural effusion. No pneumothorax. Cardiomediastinal silhouette: Normal cardiomediastinal silhouette. Bones and soft tissues: Unremarkable. DIVISION OF RADIOLOGY Provider, Bonnie Gibson [facility] - 03/31/2024 * * *Final Report* * * DATE OF EXAM: Mar 31 2024 2:50PM WOX 5291 - XR CHEST 2V FRONTAL/LAT / PROCEDURE REASON: multiple diagnoses * * * * Physician Interpretation * * * * EXAMINATION: CHEST RADIOGRAPH (2 VIEW FRONTAL & LATERAL) CLINICAL HISTORY: COPD with exacerbation (HCC) Wheezing MQ: XC2_6 EXAM DATE/TIME: 03/31/2024 2:50 PM COMPARISON: Chest x-ray on 02/14/2024 RESULT: Lines, tubes, and devices: None. Lungs and pleura: No consolidation. No lung mass. No pleural effusion. No pneumothorax. Cardiomediastinal silhouette: Normal cardiomediastinal silhouette. Bones and soft tissues: Unremarkable. IMPRESSION IMPRESSION: No acute radiographic abnormality. Certified Orthotic Fitter: PSCB Transcribe Date/Time: Mar 31 2024 3:27P Dictated by : GENESIS HERNANDEZ MD This examination was interpreted and the report reviewed and electronically signed by: GENESIS HERNANDEZ MD on Mar 31 2024 3:28PM EST [facility] Radiology Study observation (narrative) Sadia Moreno XR Chest PA and LateralOrder ed By: Ccf Provider on 03-31-2024 [facility] [id number] 03-29-2024 BEEF <0.10 Normal Class 0 [facility] Comment on above: Performed By: #### L 2100.0000, L3100.3425, L3100.6900, L101.9900, L3300.1200, L509.6000, L3410.2400, L504.2610, L3200.1600, L3300.0960, L501.6710, L501.9520, L500.4050, L3000.0375, L503.6550, L5500.0550, L503.0105 ####[facility] [address] [place], [address] CHOCOLATE <0.10 Normal Class 0 [facility] Comment on above: Performed By: #### L 2100.0000, L3100.3425, L3100.6900, L101.9900, L3300.1200, L509.6000, L3410.2400, L504.2610, L3200.1600, L3300.0960, L501.6710, L501.9520, L500.4050, L3000.0375, L503.6550, L5500.0550, L503.0105 ####[facility] [address] [place], [place], [id number] CODFISH <0.10 Normal Class 0 [facility] Comment on above: Performed By: #### L 2100.0000, L3100.3425, L3100.6900, L101.9900, L3300.1200, L509.6000, L3410.2400, L504.2610, L3200.1600, L3300.0960, L501.6710, L501.9520, L500.4050, L3000.0375, L503.6550, L5500.0550, L503.0105 ####[facility] [address] [place], [address] COMMENT Comment Normal . [facility] Comment on above: Result Comment: Armand avitia of Specific IgE Class Description of Class ----- < 0.10 0 Negative 0.10 - 0.31 0/I Equivocal/Low 0.32 - 0.55 I Low 0.56 - 1.40 II Moderate 1.41 - 3.90 III High 3.91 - 19.00 IV Very High 19.01 - 100.00 V Very High >100.00 Very High Performed By: #### L 2100.0000, L3100.3425, L3100.6900, L101.9900, L3300.1200, L509.6000, L3410.2400, L504.2610, L3200.1600, L3300.0960, L501.6710, L501.9520, L500.4050, L3000.0375, L503.6550, L5500.0550, L503.0105 ####[facility] [address] [place], [address] CORN 0.29 kU/L Abnormal Class 0/I [facility] Comment on above: Performed By: #### L 2100.0000, L3100.3425, L3100.6900, L101.9900, L3300.1200, L509.6000, L3410.2400, L504.2610, L3200.1600, L3300.0960, L501.6710, L501.9520, L500.4050, L3000.0375, L503.6550, L5500.0550, L503.0105 ####[facility] [address] [place], [address] EGG, WHOLE <0.10 Normal Class 0 [facility] Comment on above: Result Comment: Perf ormed at: [facility] - [facility] [id number] [employer] Sticker: Bonnie Sawyer MD, Phone: [phone] Performed By: #### L 2100.0000, L3100.3425, L3100.6900, L101.9900, L3300.1200, L509.6000, L3410.2400, L504.2610, L3200.1600, L3300.0960, L501.6710, L501.9520, L500.4050, L3000.0375, L503.6550, L5500.0550, L503.0105 ####[facility] [address] [place], [address] MILK (COW) <0.10 Normal Class 0 [facility] Comment on above: Performed By: #### L 2100.0000, L3100.3425, L3100.6900, L101.9900, L3300.1200, L509.6000, L3410.2400, L504.2610, L3200.1600, L3300.0960, L501.6710, L501.9520, L500.4050, L3000.0375, L503.6550, L5500.0550, L503.0105 ####[facility] [address] [facility] [place], [place], [id number] MUSSELS <0.10 Normal Class 0 [facility] Comment on above: Performed By: #### L 2100.0000, L3100.3425, L3100.6900, L101.9900, L3300.1200, L509.6000, L3410.2400, L504.2610, L3200.1600, L3300.0960, L501.6710, L501.9520, L500.4050, L3000.0375, L503.6550, L5500.0550, L503.0105 ####[facility] [address] [facility] [place], [address] PEANUT 0.15 kU/L Abnormal Class 0/I [facility] Comment on above: Performed By: #### L 2100.0000, L3100.3425, L3100.6900, L101.9900, L3300.1200, L509.6000, L3410.2400, L504.2610, L3200.1600, L3300.0960, L501.6710, L501.9520, L500.4050, L3000.0375, L503.6550, L5500.0550, L503.0105 ####[facility] [address] [facility] [place], [place], [id number] PORK <0.10 Normal Class 0 [facility] Comment on above: Performed By: #### L 2100.0000, L3100.3425, L3100.6900, L101.9900, L3300.1200, L509.6000, L3410.2400, L504.2610, L3200.1600, L3300.0960, L501.6710, L501.9520, L500.4050, L3000.0375, L503.6550, L5500.0550, L503.0105 ####[facility] [address] [place], [place], [id number] SALMON <0.10 Normal Class 0 [facility] Comment on above: Performed By: #### L 2100.0000, L3100.3425, L3100.6900, L101.9900, L3300.1200, L509.6000, L3410.2400, L504.2610, L3200.1600, L3300.0960, L501.6710, L501.9520, L500.4050, L3000.0375, L503.6550, L5500.0550, L503.0105 ####[facility] [address] [place], [place], [id number] SHRIMP <0.10 Normal Class 0 [facility] Comment on above: Performed By: #### L 2100.0000, L3100.3425, L3100.6900, L101.9900, L3300.1200, L509.6000, L3410.2400, L504.2610, L3200.1600, L3300.0960, L501.6710, L501.9520, L500.4050, L3000.0375, L503.6550, L5500.0550, L503.0105 ####[facility] [address] [place], [address] SOYBEAN <0.10 Normal Class 0 [facility] Comment on above: Performed By: #### L 2100.0000, L3100.3425, L3100.6900, L101.9900, L3300.1200, L509.6000, L3410.2400, L504.2610, L3200.1600, L3300.0960, L501.6710, L501.9520, L500.4050, L3000.0375, L503.6550, L5500.0550, L503.0105 ####[facility] [address] [place], [place], [address] TUNA <0.10 Normal Class 0 [facility] Comment on above: Performed By: #### L 2100.0000, L3100.3425, L3100.6900, L101.9900, L3300.1200, L509.6000, L3410.2400, L504.2610, L3200.1600, L3300.0960, L501.6710, L501.9520, L500.4050, L3000.0375, L503.6550, L5500.0550, L503.0105 ####[facility] [address] [place], [place], [id number] WHEAT 0.18 kU/L Abnormal Class 0/I [facility] Comment on above: Performed By: #### L 2100.0000, L3100.3425, L3100.6900, L101.9900, L3300.1200, L509.6000, L3410.2400, L504.2610, L3200.1600, L3300.0960, L501.6710, L501.9520, L500.4050, L3000.0375, L503.6550, L5500.0550, L503.0105 ####[facility] [address] [place], [place], [id number] Vitamin D 1,25-Dihydroxyon 0 03-29-2024 VIT D 1,25 DIHY 42.9 pg/mL Normal 24.8-81.5 [facility] Comment on above: Performed By: #### L 2100.0000, L3100.3425, L3100.6900, L101.9900, L3300.1200, L509.6000, L3410.2400, L504.2610, L3200.1600, L3300.0960, L501.6710, L501.9520, L500.4050, L3000.0375, L503.6550, L5500.0550, L503.0105 ####[facility] [address] [place], [place], [address] CT BRAIN WO IVCONon 03-25-[address] BRAIN WO IVCON * * *Final Report* * * DATE OF EXAM: Mar 25 2024 8:51AM [facility] 0504 - CT BRAIN WO IVCON / PROCEDURE REASON: Syncope and collapse * * * * Physician Interpretation * * * * EXAMINATION: CT BRAIN WO IVCON CLINICAL HISTORY: Syncope TECHNIQUE: Serial axial images without IV contrast were obtained from the vertex to the foramen magnum. MQ: CTBWO_3 CT Radiation dose: Integrated Dose-Length Product (DLP) for this visit = 719 mGy*cm CT Dose Reduction Employed: Automated exposure control(AEC) and iterative recon COMPARISON: Head CT 01/16/2017. RESULT: Localizer images: No significant findings. Post-operative change: None. Acute change: No evidence of an acute infarct or other acute parenchymal process. Hemorrhage: No evidence of acute intracranial hemorrhage. ECASS hemorrhagic transformation score: Not Applicable Mass Lesion / Mass Effect: There is no evidence of an intracranial mass or extraaxial fluid collection. No significant mass effect. Chronic change: None apparent. Parenchyma: There is no significant volume loss. The brain parenchyma is otherwise within normal limits for age. Ventricles: The ventricles are within normal limits of size and configuration for age. Paranasal sinuses and skull base: The visualized paranasal sinuses are grossly clear. The skull base and imaged soft tissues are unremarkable. IMPRESSION: No acute findings. No acute infarction, intracranial hemorrhage or intracranial mass lesion. Certified Orthotic Fitter: GEENA Transcribe Date/Time: Mar 25 2024 9:50A Dictated by : SHABNAM MCCOY MD This examination was interpreted and the report reviewed and electronically signed by: SHABNAM MCCOY MD on Mar 25 2024 9:53AM EST [id number] Normal [facility] CT Head WO contraston 2023 IMPRESSION: No acute findings. No acute infarction, intracranial hemorrhage or intracranial mass lesion. Certified Orthotic Fitter: [facility] Transcribe Date/Time: Mar 25 2024 9:50A Dictated by : SHABNAM MCCOY MD This examination was interpreted and the report reviewed and electronically signed by: SHABNAM MCCOY MD on Mar 25 2024 9:53AM EST DIVISION OF RADIOLOGY * * *Final Report* * * DATE OF EXAM: Mar 25 2024 8:51AM [facility] 0504 - CT BRAIN WO IVCON / PROCEDURE REASON: Syncope and collapse * * * * Physician Interpretation * * * * EXAMINATION: CT BRAIN WO IVCON CLINICAL HISTORY: Syncope TECHNIQUE: Serial axial images without IV contrast were obtained from the vertex to the foramen magnum. MQ: CTBWO_3 CT Radiation dose: Integrated Dose-Length Product (DLP) for this visit = 719 mGy*cm CT Dose Reduction Employed: Automated exposure control(AEC) and iterative recon COMPARISON: Head CT 01/16/2017. RESULT: Localizer images: No significant findings. Post-operative change: None. Acute change: No evidence of an acute infarct or other acute parenchymal process. Hemorrhage: No evidence of acute intracranial hemorrhage. ECASS hemorrhagic transformation score: Not Applicable Mass Lesion / Mass Effect: There is no evidence of an intracranial mass or extraaxial fluid collection. No significant mass effect. Chronic change: None apparent. Parenchyma: There is no significant volume loss. The brain parenchyma is otherwise within normal limits for age. Ventricles: The ventricles are within normal limits of size and configuration for age. Paranasal sinuses and skull base: The visualized paranasal sinuses are grossly clear. The skull base and imaged soft tissues are unremarkable. DIVISION OF RADIOLOGY Provider, [facility] - 03/25/2024 * * *Final Report* * * DATE OF EXAM: Mar 25 2024 8:51AM [facility] 0504 - CT BRAIN WO IVCON / PROCEDURE REASON: Syncope and collapse * * * * Physician Interpretation * * * * EXAMINATION: CT BRAIN WO IVCON CLINICAL HISTORY: Syncope TECHNIQUE: Serial axial images without IV contrast were obtained from the vertex to the foramen magnum. MQ: CTBWO_3 CT Radiation dose: Integrated Dose-Length Product (DLP) for this visit = 719 mGy*cm CT Dose Reduction Employed: Automated exposure control(AEC) and iterative recon COMPARISON: Head CT 01/16/2017. RESULT: Localizer images: No significant findings. Post-operative change: None. Acute change: No evidence of an acute infarct or other acute parenchymal process. Hemorrhage: No evidence of acute intracranial hemorrhage. ECASS hemorrhagic transformation score: Not Applicable Mass Lesion / Mass Effect: There is no evidence of an intracranial mass or extraaxial fluid collection. No significant mass effect. Chronic change: None apparent. Parenchyma: There is no significant volume loss. The brain parenchyma is otherwise within normal limits for age. Ventricles: The ventricles are within normal limits of size and configuration for age. Paranasal sinuses and skull base: The visualized paranasal sinuses are grossly clear. The skull base and imaged soft tissues are unremarkable. IMPRESSION IMPRESSION: No acute findings. No acute infarction, intracranial hemorrhage or intracranial mass lesion. Certified Orthotic Fitter: GEENA Transcribe Date/Time: Mar 25 2024 9:50A Dictated by : SHABNAM MCCOY MD This examination was interpreted and the report reviewed and electronically signed by: SHABNAM MCCOY MD on Mar 25 2024 9:53AM EST [facility] Radiology Study observation (narrative) [facility] CT Head WO contrastOrdered B y: [facility] Provider on 03-25-2024 [facility] ANCAon 03-19-2024 Atypical pANCA <1:20 Normal Neg:<1:20 [facility] Comment on above: Order Comment: N Result Comment: The atypical pANCA pattern has been observed in a significant percentage of patients with ulcerative colitis, primary sclerosing cholangitis and autoimmune hepatitis. Performed By: #### L 2100.0000, L3100.3425, L3100.6900, L101.9900, L3300.1200, L509.6000, L3410.2400, L504.2610, L3200.1600, L3300.0960, L501.6710, L501.9520, L500.4050, L3000.0375, L503.6550, L5500.0550, L503.0105 ####[facility] [address] [place], [place], [id number] Cytoplasmic Ab <1:20 Normal Neg:<1:20 [facility] Comment on above: Order Comment: N Performed By: #### L 2100.0000, L3100.3425, L3100.6900, L101.9900, L3300.1200, L509.6000, L3410.2400, L504.2610, L3200.1600, L3300.0960, L501.6710, L501.9520, L500.4050, L3000.0375, L503.6550, L5500.0550, L503.0105 ####[facility] [address] [place], [address] Perinuclear Ab. <1:20 Normal Neg:<1:20 [facility] Comment on above: Order Comment: N Result Comment: The presence of positive fluorescence exhibiting P-ANCA or C-ANCA patterns alone is not specific for the diagnosis of Melisa's Granulomatosis (WG) or microscopic polyangiitis. Decisions about treatment should not be based solely on ANCA IFA results. The International ANCA Group Consensus recommends follow up testing of positive sera with both DC- 3 and MPO-ANCA enzyme immunoassays. As many as 5% serum samples are positive only by EIA. Ref. AM J Clin Pathol 1999;111:507-513. Performed By: #### L 2100.0000, L3100.3425, L3100.6900, L101.9900, L3300.1200, L509.6000, L3410.2400, L504.2610, L3200.1600, L3300.0960, L501.6710, L501.9520, L500.4050, L3000.0375, L503.6550, L5500.0550, L503.0105 ####[facility] [address] [place], [address] Angiotensin Convert Enzymeon 03-19-2024 ANGIOT-CONV.ENZ 63 U/L Normal 14-82 [facility] Comment on above: Order Comment: N Performed By: #### L 2100.0000, L3100.3425, L3100.6900, L101.9900, L3300.1200, L509.6000, L3410.2400, L504.2610, L3200.1600, L3300.0960, L501.6710, L501.9520, L500.4050, L3000.0375, L503.6550, L5500.0550, L503.0105 ####[facility] [address] [place], [place], [address] Celiac Disease Profileon ENDOMYSIAL IGA Negative Normal Negative [facility] Comment on above: Order Comment: N Performed By: #### L 2100.0000, L3100.3425, L3100.6900, L101.9900, L3300.1200, L509.6000, L3410.2400, L504.2610, L3200.1600, L3300.0960, L501.6710, L501.9520, L500.4050, L3000.0375, L503.6550, L5500.0550, L503.0105 ####[facility] [address] [place], [place], [address] tTG IGA <2 Normal 0-3 [facility] Comment on above: Order Comment: N Result Comment: Nega tive 0 - 3 Weak Positive 4 - 10 Positive >10 Tissue Transglutaminase (tTG) has been identified as the endomysial antigen. Studies have demonstr- ated that endomysial IgA antibodies have over 99% specificity for gluten sensitive enteropathy. Performed By: #### L 2100.0000, L3100.3425, L3100.6900, L101.9900, L3300.1200, L509.6000, L3410.2400, L504.2610, L3200.1600, L3300.0960, L501.6710, L501.9520, L500.4050, L3000.0375, L503.6550, L5500.0550, L503.0105 ####[facility] [address] [place], [place], [phone] Hepatitis Panel Acuteon 03-09 HEP B CORE,IgM Negative Normal Negative [facility] Comment on above: Order Comment: N Performed By: #### L 2100.0000, L3100.3425, L3100.6900, L101.9900, L3300.1200, L509.6000, L3410.2400, L504.2610, L3200.1600, L3300.0960, L501.6710, L501.9520, L500.4050, L3000.0375, L503.6550, L5500.0550, L503.0105 ####[facility] [address] [facility] [place], [place], [phone] HEP B SURF AG Negative Normal Negative [facility] Comment on above: Order Comment: N Performed By: #### L 2100.0000, L3100.3425, L3100.6900, L101.9900, L3300.1200, L509.6000, L3410.2400, L504.2610, L3200.1600, L3300.0960, L501.6710, L501.9520, L500.4050, L3000.0375, L503.6550, L5500.0550, L503.0105 ####[facility] [address] [facility] [place], [address] HEP C VIRUS AB Non-Reactive Normal Non Reactive [facility] Comment on above: Order Comment: N Performed By: #### L 2100.0000, L3100.3425, L3100.6900, L101.9900, L3300.1200, L509.6000, L3410.2400, L504.2610, L3200.1600, L3300.0960, L501.6710, L501.9520, L500.4050, L3000.0375, L503.6550, L5500.0550, L503.0105 ####[facility] [address] [facility] [place], [place], [phone] HEPATITIS A-IgM Negative Normal Negative [facility] Comment on above: Order Comment: N Result Comment: A ne gative anti-HAV IgM result suggests no recent or current HAV infection. Performed By: #### L 2100.0000, L3100.3425, L3100.6900, L101.9900, L3300.1200, L509.6000, L3410.2400, L504.2610, L3200.1600, L3300.0960, L501.6710, L501.9520, L500.4050, L3000.0375, L503.6550, L5500.0550, L503.0105 ####[facility] [address] [facility] [place], [address] ANTONIO + Protein Elect, Serumon 03-19-2024 Albumin [Mass/Vol] 3.7 g/dL Normal 2.9-4.4 [facility] Comment on above: Order Comment: N Performed By: #### L 2100.0000, L3100.3425, L3100.6900, L101.9900, L3300.1200, L509.6000, L3410.2400, L504.2610, L3200.1600, L3300.0960, L501.6710, L501.9520, L500.4050, L3000.0375, L503.6550, L5500.0550, L503.0105 ####[facility] [address] [place], [address] Albumin/Globulin [Mass ratio] 1.0 {ratio} Normal 0.7-1.7 [facility] Comment on above: Order Comment: N Performed By: #### L 2100.0000, L3100.3425, L3100.6900, L101.9900, L3300.1200, L509.6000, L3410.2400, L504.2610, L3200.1600, L3300.0960, L501.6710, L501.9520, L500.4050, L3000.0375, L503.6550, L5500.0550, L503.0105 ####[facility] [address] [place], [address] VTBLT-7-PYSN 0.3 g/dL Normal 0.0-0.4 [facility] Comment on above: Order Comment: N Performed By: #### L 2100.0000, L3100.3425, L3100.6900, L101.9900, L3300.1200, L509.6000, L3410.2400, L504.2610, L3200.1600, L3300.0960, L501.6710, L501.9520, L500.4050, L3000.0375, L503.6550, L5500.0550, L503.0105 ####[facility] [address] [place], [place], [address] DYVIE-8-HBZL 0.9 g/dL Normal 0.4-1.0 [facility] Comment on above: Order Comment: N Performed By: #### L 2100.0000, L3100.3425, L3100.6900, L101.9900, L3300.1200, L509.6000, L3410.2400, L504.2610, L3200.1600, L3300.0960, L501.6710, L501.9520, L500.4050, L3000.0375, L503.6550, L5500.0550, L503.0105 ####[facility] [address] [place], [place], [address] BETA GLOBULIN 1.5 g/dL High 0.7-1.3 [facility] Comment on above: Order Comment: N Performed By: #### L 2100.0000, L3100.3425, L3100.6900, L101.9900, L3300.1200, L509.6000, L3410.2400, L504.2610, L3200.1600, L3300.0960, L501.6710, L501.9520, L500.4050, L3000.0375, L503.6550, L5500.0550, L503.0105 ####[facility] [address] [place], [address] GAMMA GLOBULIN 1.1 g/dL Normal 0.4-1.8 [facility] Comment on above: Order Comment: N Performed By: #### L 2100.0000, L3100.3425, L3100.6900, L101.9900, L3300.1200, L509.6000, L3410.2400, L504.2610, L3200.1600, L3300.0960, L501.6710, L501.9520, L500.4050, L3000.0375, L503.6550, L5500.0550, L503.0105 ####[facility] [address] [place], [place], [phone] Globulin (S) [Mass/Vol] 3.8 g/dL Normal 2.2-3.9 [facility] Comment on above: Order Comment: N Performed By: #### L 2100.0000, L3100.3425, L3100.6900, L101.9900, L3300.1200, L509.6000, L3410.2400, L504.2610, L3200.1600, L3300.0960, L501.6710, L501.9520, L500.4050, L3000.0375, L503.6550, L5500.0550, L503.0105 ####[facility] [address] [place], [place], [phone] ANTONIO RESULT,S Comment: Normal . [facility] Comment on above: Order Comment: N Result Comment: Pres ence of monoclonal protein is unclear at this time. Suggest repeat in 3 to 6 months if clinically indicated. Performed By: #### L 2100.0000, L3100.3425, L3100.6900, L101.9900, L3300.1200, L509.6000, L3410.2400, L504.2610, L3200.1600, L3300.0960, L501.6710, L501.9520, L500.4050, L3000.0375, L503.6550, L5500.0550, L503.0105 ####[facility] [address] [place], [place], [address] IMMUNOGLOB A QN 470 mg/dL High 87-352 [facility] Comment on above: Order Comment: N Performed By: #### L 2100.0000, L3100.3425, L3100.6900, L101.9900, L3300.1200, L509.6000, L3410.2400, L504.2610, L3200.1600, L3300.0960, L501.6710, L501.9520, L500.4050, L3000.0375, L503.6550, L5500.0550, L503.0105 ####[facility] [address] [place], [address] IMMUNOGLOB G QN 945 mg/dL Normal 586-1602 [facility] Comment on above: Order Comment: N Performed By: #### L 2100.0000, L3100.3425, L3100.6900, L101.9900, L3300.1200, L509.6000, L3410.2400, L504.2610, L3200.1600, L3300.0960, L501.6710, L501.9520, L500.4050, L3000.0375, L503.6550, L5500.0550, L503.0105 ####[facility] [address] [place], [address] IMMUNOGLOB M QN 129 mg/dL Normal 26-217 [facility] Comment on above: Order Comment: N Performed By: #### L 2100.0000, L3100.3425, L3100.6900, L101.9900, L3300.1200, L509.6000, L3410.2400, L504.2610, L3200.1600, L3300.0960, L501.6710, L501.9520, L500.4050, L3000.0375, L503.6550, L5500.0550, L503.0105 ####[facility] [address] [place], [address] M-Chris Not Observed Normal Not Observed [facility] Comment on above: Order Comment: N Performed By: #### L 2100.0000, L3100.3425, L3100.6900, L101.9900, L3300.1200, L509.6000, L3410.2400, L504.2610, L3200.1600, L3300.0960, L501.6710, L501.9520, L500.4050, L3000.0375, L503.6550, L5500.0550, L503.0105 ####[facility] [address] [place], [address] NOTE: Comment Normal . [facility] Comment on above: Order Comment: N Result Comment: Prot ein electrophoresis scan will follow via computer, mail, or mirror maker delivery. Performed By: #### L 2100.0000, L3100.3425, L3100.6900, L101.9900, L3300.1200, L509.6000, L3410.2400, L504.2610, L3200.1600, L3300.0960, L501.6710, L501.9520, L500.4050, L3000.0375, L503.6550, L5500.0550, L503.0105 ####[facility] [address] [place], [address] Protein [Mass/Vol] 7.5 g/dL Normal 6.0-8.5 [facility] Comment on above: Order Comment: N Performed By: #### L 2100.0000, L3100.3425, L3100.6900, L101.9900, L3300.1200, L509.6000, L3410.2400, L504.2610, L3200.1600, L3300.0960, L501.6710, L501.9520, L500.4050, L3000.0375, L503.6550, L5500.0550, L503.0105 ####[facility] [address] [place], [address] Immunoglobulin Luis Enrique 4 IMMUNOGLOB E QN 13 IU/mL Normal 6-495 [facility] Comment on above: Order Comment: N Result Comment: Perf ormed at: [address] [id number] [employer] Sticker: Tereso Sierra PhD, Phone: [phone] Performed at: [facility] [address] [id number] [employer] Sticker: Bonnie Sawyer MD, Phone: [phone] Performed By: #### L 2100.0000, L3100.3425, L3100.6900, L101.9900, L3300.1200, L509.6000, L3410.2400, L504.2610, L3200.1600, L3300.0960, L501.6710, L501.9520, L500.4050, L3000.0375, L503.6550, L5500.0550, L503.0105 ####[facility] [address] [place], [place], [address] L2100.0000on 03-19-2024 ACCA 27 units Normal 0-90 [facility] Comment on above: Order Comment: N Result Comment: Nega tive: <80 Equivocal: 80-90 Positive: >90 Performed By: #### L 2100.0000, L3100.3425, L3100.6900, L101.9900, L3300.1200, L509.6000, L3410.2400, L504.2610, L3200.1600, L3300.0960, L501.6710, L501.9520, L500.4050, L3000.0375, L503.6550, L5500.0550, L503.0105 ####[facility] [address] [place], [address] ALCA 1 units Normal 0-60 [facility] Comment on above: Order Comment: N Result Comment: Nega tive:<55 Equivocal: 55-60 Positive: >60 Performed By: #### L 2100.0000, L3100.3425, L3100.6900, L101.9900, L3300.1200, L509.6000, L3410.2400, L504.2610, L3200.1600, L3300.0960, L501.6710, L501.9520, L500.4050, L3000.0375, L503.6550, L5500.0550, L503.0105 ####[facility] [address] [place], [place], [phone] AMCA 39 units Normal 0-100 [facility] Comment on above: Order Comment: N Result Comment: Nega tive: <90 Equivocal: 90-100 Positive: >100 This test was developed and its performance characteristics determined by [employer]. It has not been cleared or approved by the Food and Drug Administration. The FDA has determined that such clearance or approval is not necessary. Performed By: #### L 2100.0000, L3100.3425, L3100.6900, L101.9900, L3300.1200, L509.6000, L3410.2400, L504.2610, L3200.1600, L3300.0960, L501.6710, L501.9520, L500.4050, L3000.0375, L503.6550, L5500.0550, L503.0105 ####[facility] [address] [place], [place], [phone] Atypical pANCA Negative Normal Negative [facility] Comment on above: Order Comment: N Performed By: #### L 2100.0000, L3100.3425, L3100.6900, L101.9900, L3300.1200, L509.6000, L3410.2400, L504.2610, L3200.1600, L3300.0960, L501.6710, L501.9520, L500.4050, L3000.0375, L503.6550, L5500.0550, L503.0105 ####[facility] [address] [place], [place], [phone] COMMENT Comment Normal . [facility] Comment on above: Order Comment: N Result Comment: Carole baljinder is not suggestive of Inflammatory Bowel Disease Performed By: #### L 2100.0000, L3100.3425, L3100.6900, L101.9900, L3300.1200, L509.6000, L3410.2400, L504.2610, L3200.1600, L3300.0960, L501.6710, L501.9520, L500.4050, L3000.0375, L503.6550, L5500.0550, L503.0105 ####[facility] [address] [place], [place], [phone] Result Comment: Not infected with HCV unless early or acute infection is suspected (which may be delayed in an immunocompromised individual), or other evidence exists to indicate HCV infection. Brayan 21 units Normal 0-50 [facility] Comment on above: Order Comment: N Result Comment: Nega tive: <45 Equivocal: 45-50 Positive: >50 Performed By: #### L 2100.0000, L3100.3425, L3100.6900, L101.9900, L3300.1200, L509.6000, L3410.2400, L504.2610, L3200.1600, L3300.0960, L501.6710, L501.9520, L500.4050, L3000.0375, L503.6550, L5500.0550, L503.0105 ####[facility] [address] [place], [address] CORTISOL SERUMon 03-14-2024 CORTISOL 8.00 ug/dL Normal 3.44-22.45 [facility] Comment on above: Result Comment: Adul t (AM) 5.27 - 22.45 ug/dL Adult (PM) 3.44 - 16.76 ug/dL Performed By: #### L 2100.0000, L3100.3425, L3100.6900, L101.9900, L3300.1200, L509.6000, L3410.2400, L504.2610, L3200.1600, L3300.0960, L501.6710, L501.9520, L500.4050, L3000.0375, L503.6550, L5500.0550, L503.0105 ####[facility] [address] [place], [place], [phone] CRPon 03-14-2024 C-REACTIVE PROT 9.05 mg/L High 0.0-3.0 [facility] Comment on above: Order Comment: 1 Result Comment: C-Re active Protein (CRP) provides useful information for the diagnosis, therapy and monitoring of inflammatory processes and associated diseases. For the evaluation of Relative Risk for Cardiovascular Disease, a High Sensitivity CRP (HSCRP) should be ordered. Performed By: #### L 2100.0000, L3100.3425, L3100.6900, L101.9900, L3300.1200, L509.6000, L3410.2400, L504.2610, L3200.1600, L3300.0960, L501.6710, L501.9520, L500.4050, L3000.0375, L503.6550, L5500.0550, L503.0105 ####[facility] [address] [place], [place], [phone] Comprehensive Metabolic Prof ilon 03-14-2024 Albumin [Mass/Vol] 3.7 g/dL Normal 3.2-5.0 [facility] Comment on above: Order Comment: 1 Performed By: #### L 2100.0000, L3100.3425, L3100.6900, L101.9900, L3300.1200, L509.6000, L3410.2400, L504.2610, L3200.1600, L3300.0960, L501.6710, L501.9520, L500.4050, L3000.0375, L503.6550, L5500.0550, L503.0105 ####[facility] [address] [place], [place], [id number] Albumin/Globulin [Mass ratio] 0.9 {ratio} Normal 0.9-2.4 [facility] Comment on above: Order Comment: 1 Performed By: #### L 2100.0000, L3100.3425, L3100.6900, L101.9900, L3300.1200, L509.6000, L3410.2400, L504.2610, L3200.1600, L3300.0960, L501.6710, L501.9520, L500.4050, L3000.0375, L503.6550, L5500.0550, L503.0105 ####[facility] [address] [place], [place], [phone] ALK P 99 U/L Normal 45-117 [facility] Comment on above: Order Comment: 1 Performed By: #### L 2100.0000, L3100.3425, L3100.6900, L101.9900, L3300.1200, L509.6000, L3410.2400, L504.2610, L3200.1600, L3300.0960, L501.6710, L501.9520, L500.4050, L3000.0375, L503.6550, L5500.0550, L503.0105 ####[facility] [address] [place], [place], [id number] ALT [Catalytic activity/Vol] 37 U/L Normal 13-56 [facility] Comment on above: Order Comment: 1 Performed By: #### L 2100.0000, L3100.3425, L3100.6900, L101.9900, L3300.1200, L509.6000, L3410.2400, L504.2610, L3200.1600, L3300.0960, L501.6710, L501.9520, L500.4050, L3000.0375, L503.6550, L5500.0550, L503.0105 ####[facility] [address] [place], [place], [id number] AST [Catalytic activity/Vol] 31 U/L Normal 15-37 [facility] Comment on above: Order Comment: 1 Performed By: #### L 2100.0000, L3100.3425, L3100.6900, L101.9900, L3300.1200, L509.6000, L3410.2400, L504.2610, L3200.1600, L3300.0960, L501.6710, L501.9520, L500.4050, L3000.0375, L503.6550, L5500.0550, L503.0105 ####[facility] [id number] [place], [place], [id number] Bilirubin [Mass/Vol] 0.30 mg/dL Normal 0.20-1.00 [facility] Comment on above: Order Comment: 1 Result Comment: For patients on eltrombopag therapy, use of Dimension Papillion TBIL is not recommended. Performed By: #### L 2100.0000, L3100.3425, L3100.6900, L101.9900, L3300.1200, L509.6000, L3410.2400, L504.2610, L3200.1600, L3300.0960, L501.6710, L501.9520, L500.4050, L3000.0375, L503.6550, L5500.0550, L503.0105 ####[facility] [id number] [place], [place], [phone] BUN/CRE 14.1 RATIO Normal 10-20 [facility] Comment on above: Order Comment: 1 Performed By: #### L 2100.0000, L3100.3425, L3100.6900, L101.9900, L3300.1200, L509.6000, L3410.2400, L504.2610, L3200.1600, L3300.0960, L501.6710, L501.9520, L500.4050, L3000.0375, L503.6550, L5500.0550, L503.0105 ####[facility] [address] [place], [place], [phone](804 CA,Total 9.7 mg/dL Normal 8.5-10.1 [facility] Comment on above: Order Comment: 1 Performed By: #### L 2100.0000, L3100.3425, L3100.6900, L101.9900, L3300.1200, L509.6000, L3410.2400, L504.2610, L3200.1600, L3300.0960, L501.6710, L501.9520, L500.4050, L3000.0375, L503.6550, L5500.0550, L503.0105 ####[facility] [address] [place], [address] Chloride [Moles/Vol] 106 mmol/L Normal 98-107 [facility] Comment on above: Order Comment: 1 Performed By: #### L 2100.0000, L3100.3425, L3100.6900, L101.9900, L3300.1200, L509.6000, L3410.2400, L504.2610, L3200.1600, L3300.0960, L501.6710, L501.9520, L500.4050, L3000.0375, L503.6550, L5500.0550, L503.0105 ####[facility] [address] [place], [place], [phone](391) CO2 [Moles/Vol] 24.0 mmol/L Normal 21.0-32.0 [facility] Comment on above: Order Comment: 1 Performed By: #### L 2100.0000, L3100.3425, L3100.6900, L101.9900, L3300.1200, L509.6000, L3410.2400, L504.2610, L3200.1600, L3300.0960, L501.6710, L501.9520, L500.4050, L3000.0375, L503.6550, L5500.0550, L503.0105 ####[facility] [address] [place], [place], [phone] Creatinine [Mass/Vol] 0.92 mg/dL Normal 0.55-1.02 [facility] Comment on above: Order Comment: 1 Result Comment: The validity of the calculated GFR GFRAA in patients over 70 years has not been determined. Clinical correlation is essential. Performed By: #### L 2100.0000, L3100.3425, L3100.6900, L101.9900, L3300.1200, L509.6000, L3410.2400, L504.2610, L3200.1600, L3300.0960, L501.6710, L501.9520, L500.4050, L3000.0375, L503.6550, L5500.0550, L503.0105 ####[facility] [address] [place], [place], [address] EST GFR - AA 82 mL/min Normal >60 [facility] Comment on above: Order Comment: 1 Result Comment: Afri can Malian GFR Calc Performed By: #### L 2100.0000, L3100.3425, L3100.6900, L101.9900, L3300.1200, L509.6000, L3410.2400, L504.2610, L3200.1600, L3300.0960, L501.6710, L501.9520, L500.4050, L3000.0375, L503.6550, L5500.0550, L503.0105 ####[facility] [address] [facility] [place], [place], [phone] GAP 7 Normal 5-15 [facility] Comment on above: Order Comment: 1 Performed By: #### L 2100.0000, L3100.3425, L3100.6900, L101.9900, L3300.1200, L509.6000, L3410.2400, L504.2610, L3200.1600, L3300.0960, L501.6710, L501.9520, L500.4050, L3000.0375, L503.6550, L5500.0550, L503.0105 ####[facility] [address] [facility] [place], [place], [phone] GFR/1.73 sq M.predicted among non-blacks MDRD (S/P/Bld) [Vol rate/Area] 68 mL/min/{1.73_m2} Normal >60 [facility] Comment on above: Order Comment: 1 Result Comment: Non- GFR Calc Performed By: #### L 2100.0000, L3100.3425, L3100.6900, L101.9900, L3300.1200, L509.6000, L3410.2400, L504.2610, L3200.1600, L3300.0960, L501.6710, L501.9520, L500.4050, L3000.0375, L503.6550, L5500.0550, L503.0105 ####[facility] [address] [place], [place], [phone] Globulin (S) [Mass/Vol] 4.2 g/dL Normal 2.2-4.2 [facility] Comment on above: Order Comment: 1 Performed By: #### L 2100.0000, L3100.3425, L3100.6900, L101.9900, L3300.1200, L509.6000, L3410.2400, L504.2610, L3200.1600, L3300.0960, L501.6710, L501.9520, L500.4050, L3000.0375, L503.6550, L5500.0550, L503.0105 ####[facility] [address] [place], [place], [phone] Glucose [Mass/Vol] 97 mg/dL Normal 74-106 [facility] Comment on above: Order Comment: 1 Performed By: #### L 2100.0000, L3100.3425, L3100.6900, L101.9900, L3300.1200, L509.6000, L3410.2400, L504.2610, L3200.1600, L3300.0960, L501.6710, L501.9520, L500.4050, L3000.0375, L503.6550, L5500.0550, L503.0105 ####[facility] [address] [place], [place], [phone] Potassium [Moles/Vol] 4.0 mmol/L Normal 3.5-5.1 [facility] Comment on above: Order Comment: 1 Performed By: #### L 2100.0000, L3100.3425, L3100.6900, L101.9900, L3300.1200, L509.6000, L3410.2400, L504.2610, L3200.1600, L3300.0960, L501.6710, L501.9520, L500.4050, L3000.0375, L503.6550, L5500.0550, L503.0105 ####[facility] [address] [place], [address] Sodium [Moles/Vol] 137 mmol/L Normal 136-145 [facility] Comment on above: Order Comment: 1 Performed By: #### L 2100.0000, L3100.3425, L3100.6900, L101.9900, L3300.1200, L509.6000, L3410.2400, L504.2610, L3200.1600, L3300.0960, L501.6710, L501.9520, L500.4050, L3000.0375, L503.6550, L5500.0550, L503.0105 ####[facility] [address] [place], [address] T PROT 7.9 g/dL Normal 6.4-8.2 [facility] Comment on above: Order Comment: 1 Performed By: #### L 2100.0000, L3100.3425, L3100.6900, L101.9900, L3300.1200, L509.6000, L3410.2400, L504.2610, L3200.1600, L3300.0960, L501.6710, L501.9520, L500.4050, L3000.0375, L503.6550, L5500.0550, L503.0105 ####[facility] [address] [place], [place], [phone] Urea nitrogen [Mass/Vol] 13 mg/dL Normal 7-18 [facility] Comment on above: Order Comment: 1 Performed By: #### L 2100.0000, L3100.3425, L3100.6900, L101.9900, L3300.1200, L509.6000, L3410.2400, L504.2610, L3200.1600, L3300.0960, L501.6710, L501.9520, L500.4050, L3000.0375, L503.6550, L5500.0550, L503.0105 ####[facility] [address] [place], [place], [address] Erythrocyte Sed Rateon 03-14 SED RATE 35 mm/hr High 0-30 [facility] Comment on above: Performed By: #### L 2100.0000, L3100.3425, L3100.6900, L101.9900, L3300.1200, L509.6000, L3410.2400, L504.2610, L3200.1600, L3300.0960, L501.6710, L501.9520, L500.4050, L3000.0375, L503.6550, L5500.0550, L503.0105 #### [facility] Laboratory [address] [place], [place], [phone] Ferritinon 03-14-2024 Ferritin [Mass/Vol] 42 ng/mL Normal 8-252 [facility] Comment on above: Order Comment: 1 Performed By: #### L 2100.0000, L3100.3425, L3100.6900, L101.9900, L3300.1200, L509.6000, L3410.2400, L504.2610, L3200.1600, L3300.0960, L501.6710, L501.9520, L500.4050, L3000.0375, L503.6550, L5500.0550, L503.0105 ####[facility] [address] [place], [place], [phone] Gastroenterology Visit Repor ton 03-14-2024 Gastroenterology Visit Report [facility]enter[facility] [address] [place] [address] OFFICE VISIT Date of Service: 03/14/24 MR#: [id number] Acct: [id number] Name: JANE STEINBERG Rep #: [id number] : 1970 Provider: Pelon Hamilton DO Age/Sex: 53/F Location: [facility] Status: Signed Intake Vital Signs 11/30/23 15:25 02/05/24 07:31 Height 5 ft 1 in 5 ft 1 in Intake Visit Reasons: Irritable bowel syndrome Chief Complaint: follow up Allergies Penicillins (PCN) Allergy (Verified 02/05/24 08:52) Anaphylaxis Medications ???Medication ???Instructions ???Recorded ???Confirmed ???Type ergocalciferol (vitamin D2) 1,250 1,250 mcg PO QWEEK 12/09/21 02/05/24 History mcg (50,000 unit) capsule phenylephrine 0.25 %-cocoa butter 1 supp DC PRN PRN Hemorrhoids 02/09/22 02/05/24 History 88.44 % rectal suppository (Preparation H(phenyleph,cocoa buttr)) amitriptyline 25 mg tablet 25 mg PO QHS 05/16/22 02/05/24 History epinephrine 0.3 mg/0.3 mL 0.3 mg (0.3 mL) IM ONCE #1 ea 01/08/23 02/05/24 Rx injection, auto-injector (EpiPen) benralizumab 30 mg/mL subcutaneous 30 mg subcut Q4W #1 mL 01/24/23 02/05/24 Rx auto-injector (Fasenra Pen) dexlansoprazole 60 mg 60 mg PO DAILY 01/18/24 02/05/24 History capsule,biphase delayed release (Dexilant) diclofenac sodium 1 % topical gel 2 g topical ONCE 01/18/24 02/05/24 History famotidine 40 mg tablet 40 mg PO DAILY 01/18/24 02/05/24 History promethazine 25 mg tablet 25 mg PO TID PRN 01/18/24 02/05/24 History tenapanor 50 mg tablet (Ibsrela) 50 mg PO BID 01/18/24 02/05/24 History PEP device #1 ea 02/05/24 03/14/24 Rx albuterol sulfate 2.5 mg/3 mL 2.5 mg (3 mL) inhalation Q6H PRN 02/05/24 03/14/24 Rx (0.083 %) solution for nebulization PRN Sob /Or Wheezing #180 mL albuterol sulfate 90 mcg/actuation 1 puff inhalation Q4H PRN PRN Sob 02/05/24 03/14/24 Rx aerosol inhaler (Ventolin HFA) /Or Wheezing #8.5 grams fluticasone fur. 200 mcg-umeclid 1 inh inhalation DAILY #3 ea 02/05/24 03/14/24 Rx 62.5 mcg-vilant 25 mcg inhalat.powder (Trelegy Ellipta) fluticasone propionate 50 1 spray BID #3 ea 02/05/24 03/14/24 Rx mcg/actuation nasal spray,suspension guaifenesin 1,200 mg tablet, 1,200 mg PO Q12H #60 tabs 02/05/24 03/14/24 Rx extended release 12 hr ipratropium 0.5 mg-albuterol 3 mg 3 ml inhalation Q4H PRN Shortness 02/05/24 02/05/24 Rx (2.5 mg base)/3 mL nebulization Of Breath Or Wheezing #180 mL soln loratadine 10 mg tablet (Claritin) 10 mg PO DAILY #90 tabs 02/05/24 03/14/24 Rx montelukast 10 mg tablet 10 mg PO DAILY #90 tabs 02/05/24 03/14/24 Rx PFSH Medical History (Updated 03/14/24 @ 09:[address] Bird Friend, DO) Constipation Cholelithiasis Irritable bowel syndrome with constipation Hiatal hernia Snoring Hx of migraines Lung disease Internal hemorrhoids History of uterine cancer H. pylori infection GERD (gastroesophageal reflux disease) Emphysema lung Bulimia nervosa Duggan's esophagus Asthma Anxiety Anorexia nervosa COPD (chronic obstructive pulmonary disease) Surgical History History of hysterectomy History of appendectomy Family History Mother Hypertension Heart disease Eczema AAA (abdominal aortic aneurysm) Fibromyalgia Father Lung cancer Alcohol abuse Colon cancer Sister Hypertension Asthma Migraine headache Gout Fibromyalgia Aunt Breast cancer Aunt Breast cancer Social History Smoking Status: Current every day smoker tobacco type: cigarettes alcohol intake: current alcohol intake frequency: holidays/special occasions only substance use type: does not use HPI HPI Chief Complaint: follow up Details: JANE STEINBERG, is a 53 F who presents to the office today for initial consult. *BGI established 9.6.24 pt reports a long history of GERD, IBS-C, Barretts. Pt reports that about a year ago she was told she has a small hiatal hernia. Pt states that she has nearly constant HB and nothing seems to be helpful. Pt reports waking in the middle of the night throwing up due to her HB. Pt reports taking Ibsrela and that if she did not she could go months without a bm. ROS Const Constitutional: Positive for fatigue and headache(s); No fever(s) or weight change ENT ENT: Positive for headache(s); No difficulty swallowing Gastro GI: Positive for constipation, heartburn, nausea/dyspepsia and vomiting; No abdominal pain, belching, bloating, change in bowel habits, change in stool character, coffee ground emesis, cramping, diarrhea, difficulty swallowing, feeling full early, excessive flatus, incontinent of stools, Vomiting blood/ (more content not included)... Normal [facility] LDHon 03-14-2024 LDH 166 U/L Normal 84-246 [facility] Comment on above: Order Comment: 1 Performed By: #### L 2100.0000, L3100.3425, L3100.6900, L101.9900, L3300.1200, L509.6000, L3410.2400, L504.2610, L3200.1600, L3300.0960, L501.6710, L501.9520, L500.4050, L3000.0375, L503.6550, L5500.0550, L503.0105 ####[facility] [address] [place], [address] Thyroid Stim Hormone (TSH)on 03-14-2024 TSH 3.390 uIU/mL Normal 0.358-3.740 [facility] Comment on above: Order Comment: 1 Performed By: #### L 2100.0000, L3100.3425, L3100.6900, L101.9900, L3300.1200, L509.6000, L3410.2400, L504.2610, L3200.1600, L3300.0960, L501.6710, L501.9520, L500.4050, L3000.0375, L503.6550, L5500.0550, L503.0105 ####[facility] [address] [place], [place], [address] Vitamin B12on 03-14-2024 Cobalamin (Vitamin B12) [Mass/Vol] 298 pg/mL Normal 211-911 [facility] Comment on above: Performed By: #### L 2100.0000, L3100.3425, L3100.6900, L101.9900, L3300.1200, L509.6000, L3410.2400, L504.2610, L3200.1600, L3300.0960, L501.6710, L501.9520, L500.4050, L3000.0375, L503.6550, L5500.0550, L503.0105 ####[facility] [address] [place], [address] [facility] 02-28-2024 [facility] Telephone (INTMWS) JANE STEINBERG ([id number]) 1970 F FNS Date Time Provider Department 02/28/24 AMANDA WALLACE INTWS During your visit today, we recorded the following information about you: Bree Meléndez, KIRK 02/28/2024 1:14 PM Signed Patient calling in and requesting provider to advise on recent Tilt Table results, when able. Thank you. Laura Hernandez APRN.CNP 02/28/2024 2:30 PM Signed Still only at a preliminary status. Will update her when results are final. Thank you Laura Hernandez APRN.Maricarmen Hawkins LPN 02/29/2024 11:42 AM Signed Updated via [employer] JOMAR Arroyo Mary, LPN 03/07/2024 1:45 PM Signed Tilt table test still in preliminary result status. Maricarmen Wong LPN March 07, 2024 1:45 PM Laura Hernandez APRN.CNP 03/14/2024 2:09 PM Signed Had a drop of BP during tilt table that may or may not be cause of previous syncope. No other cardiac concerns noted. Has she had any further episodes or concerns? Thank you Laura Hernandez APRN.Latasha Carreno MA 03/14/2024 2:36 PM Signed Patient notified. Patient states that she continues to have syncope episodes though not as often, only when patient has been up on feet for a long period of time. Laura Hernandez APRN.CNP 03/14/2024 2:42 PM Signed I have consulted her to cardiology and ordered a CT of her brain. Follow up in 2 weeks. Go to ER for any concerns or further syncopal episodes. Thank you WILLIAM Lutz Brandy 03/16/2024 11:03 AM Signed Patient is currently scheduled with cardiology at [facility] for 04/07/24. I scheduled patient for CT scan on 03/25/24 @ 8:20 am and then follow-up with Laura Hernandez CNP on 03/31/24 @ 8:20 am I called and confirmed these dates and times with Yohannes Aguilar Allergies As of Date: 02/28/2024 Noted Allergy Reaction PENICILLINS 06/11/2006 10 - Anaphylaxis Date Reviewed: 02/21/2024 Reviewed by: Latasha Salamanca MA - Fully Assessed Reason for Visit: Results [95] Primary Visit Diagnosis:Syncope and collapse [R55] Order(s):CT BRAIN WO IVCON [5396915] Order #: [id number] FUTURE CONSULT TO CARDIOLOGY [9004] Order #: [id number]: 1 FUTURE Prescriptions as of 03/16/2024 - EPINEPHrine (EPIPEN) 0.3 mg/0.3 mL auto-injector Inject intramuscularly. - multivit with minerals/lutein (MULTIVITAMIN 50 PLUS ORAL) Take by mouth. - amitriptyline (ELAVIL) 100 mg tablet take 1 tablet by mouth once daily at bedtime - IBSRELA 50 mg tablet TAKE 1 TABLET BY MOUTH TWICE A DAY 10 MINUTES BEFORE EATING - promethazine (PHENERGAN) 25 mg tablet Take 1 tablet by mouth every 8 hours as needed (for nausea). - fluticasone (FLONASE) 50 mcg/actuation nasal spray Use 2 Sprays in each nostril once daily. Rinse mouth after use. - ibuprofen (MOTRIN) 800 mg tablet Take 1 tablet by mouth every 8 hours as needed for pain. - diclofenac (VOLTAREN) 1 % topical gel Apply 2 g to affected area twice daily. - FASENRA PEN 30 mg/mL auto-injector - Dexlansoprazole (DEXILANT) 60 mg CpDM Take 60 mg by mouth once daily. - magnesium hydroxide (MILK OF MAGNESIA) 400 mg/5 mL suspension Take 15 mL by mouth once daily as needed for constipation. - bisacodyl (DULCOLAX, BISACODYL,) 10 mg supp 1 Suppository by RECTAL route once daily as needed for constipation. - famotidine (PEPCID) 40 mg tablet Take 1 tablet by mouth once daily as needed. - MUCUS RELIEF ER 600 mg 12 hr tablet Take 1,200 mg by mouth twice daily. - montelukast (SINGULAIR) 10 mg tablet Take 1 tablet by mouth daily at bedtime. - fluticasone-umeclidin- vilanter (TRELEGY ELLIPTA) 200-62.5-25 mcg inhalation powder Inhale as instructed. - albuterol HFA (VENTOLIN HFA) 90 mcg/actuation inhaler Inhale 2 Puffs as instructed every 4 hours as needed for wheezing/shortness of breath. - L. acidophilus-L. rhamnosus 15 billion cell cap Take 1 capsule by mouth once daily. FLORAJEN WOMEN. If on antibiotic, take at least 1-2 hours before or after antibiotic. KEEP REFRIGERATED - ergocalciferol 50,000 unit capsule (VITAMIN D2, DRISDOL) Take 1 capsule by mouth one time a week. - albuterol (PROVENTIL) 2.5 mg /3 mL (0.083 %) nebulizer solution Use 3 mL via nebulizer every 6 hours as needed. - COMPACT SPACE CHAMBER as directed. - ipratropium-albuterol (DUONEB) 0.5 mg-3 mg(2.5 mg base)/3 mL nebu Inhale 3 mL as instructed every 4 hours as needed. - PULSE OXIMETER CONTEC 1 Each as needed. - Comp Stocking,Knee,Regular, Med misc 2 Each once daily. - loratadine (CLARITIN) 10 mg tablet Take 1 tablet by mouth once daily. Meds Comments as of 06/25/2021: ` Problem List As Of Date 02/28/2024 Noted Resolved Asthma [J45.909] HISTORY OF CANCER OF UTERUS [Z85.42] 06/11/2006 05/18/2016 TOBACCO USE DISORDER [F17.200] 06/11/2006 Anorexia nervosa [F50.00] 06/11/2006 02/14/2024 Bulimia nervosa [F50.2] 06/11/2006 02/14/2024 Edema [R60.9] 06/11/2006 05/18/2016 DEPRESSIVE (more content not included)... Normal [facility] TILT TABLE TESTon 02-26-2024 Martin Shah MD - 02/26/2024 12:00 AM EDT [facility]- Tilt Table Test (passive) MARYAN JANEANGELA SHELLEY : 1970 AGE: 53 SEX: F ACCTNUM: [id number] [facility] SVC: LOCATION: ATTENDING PHYSICIAN: DATE OF STUDY: 02/26/2024 INDICATIONS: Syncope. REPORT: The resting blood pressure was 138/83 mmHg. The patient had a resting heart rate of 65 beats per minute. EKG NSR The patient was tilted upright at an angle of 70 degrees for 18 minutes. The patient's heart rate increased up to 85 beats per minute after 10 minutes. The patient did not have any symptoms at that time. Her blood pressure steadily dropped after 15 minutes and the patient started to feel tingling all over the body and her blood pressure dropped suddenly to 54 mmHg systolic. EKG showed NSR with no arrhythmia or ST changes. At this time, she was reclined back and her symptoms got better and her blood pressure recovered to 118/71 mmHg and her symptoms resolved. CONCLUSION: 1. The patient had vasodepressor response that may be responsible for her syncope due to orthostatic / postural drop in her blood pressure suddenly at 19 minutes. 2. The patient did not have any postural orthostatic tachycardia or neurocardiogenic syncope. Martin Shah MD, [facility]. Services Engineer, Dept of Medicine, [facility]. Regulator Mechanic of Ambulatory Cardiology, [facility]. Regulator Mechanic of Cardiac Catheterization laboratory, [facility]. Asst. producer arborist manager, [facility] and [facility] Staff Insurance Rater, Heart, Vascular and Thoracic [place], Rose Wyatt Department of Cardiovascular Medicine. QS:[id number] /[id number] [facility] XR Tibia and Fibula - left A P and Lateralon 02-26-2024 IMPRESSION: No acute osseous abnormality Certified Orthotic Fitter: GEENA Transcribe Date/Time: Feb 26 2024 4:15P Dictated by : KATTY WU MD This examination was interpreted and the report reviewed and electronically signed by: KATTY WU MD on Feb 26 2024 4:17PM [facility] DIVISION OF RADIOLOGY * * *Final Report* * * DATE OF EXAM: Feb 21 2024 8:55AM WOX [id number] - XR TIBIA FIBULA 2V AP/LAT LT / PROCEDURE REASON: Pain in left hernandez * * * * Physician Interpretation * * * * EXAMINATION: XR TIBIA FIBULA 2V AP/LAT LT CLINICAL HISTORY: Pain in left hernandez Technique: XR TIBIA FIBULA 2V AP/LAT LT -- LEFT with 2 views on 2 images Comparison: None RESULT: No acute fracture or dislocation. Joint spaces are maintained. DIVISION OF RADIOLOGY Provider, [facility] - 02/26/2024 * * *Final Report* * * DATE OF EXAM: Feb 21 2024 8:55AM WOX [id number] - XR TIBIA FIBULA 2V AP/LAT LT / PROCEDURE REASON: Pain in left hernandez * * * * Physician Interpretation * * * * EXAMINATION: XR TIBIA FIBULA 2V AP/LAT LT CLINICAL HISTORY: Pain in left hernandez Technique: XR TIBIA FIBULA 2V AP/LAT LT -- LEFT with 2 views on 2 images Comparison: None RESULT: No acute fracture or dislocation. Joint spaces are maintained. IMPRESSION IMPRESSION: No acute osseous abnormality Certified Orthotic Fitter: PSCB Transcribe Date/Time: Feb 26 2024 4:15P Dictated by : KATTY WU MD This examination was interpreted and the report reviewed and electronically signed by: KATTY WU MD on Feb 26 2024 4:17PM EST [facility] XR Tibia and Fibula - left A P and LateralOrdered By: [facility] Provider on 02-26-2024 [facility] CNOVon 02-21-2024 CNOV Office Visit (INTMWS ) JANE STEINBERG ([id number]) 1970 F FNS Date Time Provider Department 02/21/24 8:20 AM LAURA HERNANDEZ INTKARO During your visit today, we recorded the following information about you: Pulse Respiration Blood pressure Weight 88/minute 16/minute 128/80 56.2 kg Laura Hernandez APRN.DUMPER 02/21/2024 9:26 AM Signed CC: Patient presents with: Recheck: 1 week follow up HPI Jane Steinberg is a 53 year old female who presents today for COPD exacerbation follow up. Was seen a 1 week ago and doxy and prednisone ordered. CXR resulted without concern. Last visit: COPD Exacerbation: Last saw pulmonology 1 week ago for routine follow up and given an acapella device. For the past two days feels like her breathing is worsening. Denies extra sputum but states she can hear it rattling in her chest, increased cough which she states is worsening, wheezing, and shortness of breath. All worse than her baseline. Using her albuterol every 4 hours even at night time. Prior to use was using every 6 hours and not needing at night. Also feeling weak, tired, headaches, Last steroid usage was months ago and last antibiotic over 6 months ago. Reports today that she has had improvement and is less wheezy but still using albuterol every four hours including at night. Also with moist cough and shortness of breath. Has appointment with rug sample beveler in 2 weeks which was as early as she could get in. Currently smoking 1/2 ppd. Denies fever, chills, chest pain, edema, or palpitations. Being worked up for syncope. Left hernandez stil painful from last episode of syncope while in xray 2 months ago. Hit the hernandez on a step. 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 Denies edema, redness, deformity, or loss of sensation. REVIEW OF SYSTEMS See HPI PAST MEDICAL HISTORY 06/11/2006: Anorexia nervosa Comment: Stable; treated in past No date: Anxiety No date: Asthma 02/13/2020: 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 06/11/2006: Bulimia nervosa Comment: Stable, treated in past No date: Cancer (HCC) No date: Chest pain 07/24/2023: Cholelithiasis No date: Chronic obstructive pulmonary disease (COPD) (HCC) No date: Emphysema lung (HCC) No date: GERD (gastroesophageal reflux disease) No date: H. pylori infection Comment: cronic 02/13/2020: Hiatal hernia Comment: small 06/11/2006: HISTORY OF CANCER OF UTERUS Comment: 2003, Hysterectomy - complete 07/10/2023: History of COVID-19 No date: Internal hemorrhoids No date: Lung disease No date: Migraines 07/10/2023: Overweight (BMI 25.0-29.9) No date: Snoring 06/11/2006: Tobacco use disorder Comment: Quit 09/2015. No date: Unspecified asthma(493.90) Comment: Childhood diagnosis. PAST SURGICAL HISTORY 1998: APPENDECTOMY 01/12/2023: COLONOSCOPY Comment: no specimens, next colonoscopy 202903/13/2017: EGD WITH BIOPSY(S) Comment: Dr. Shook 02/13/2020: EGD WITH BIOPSY(S) Comment: small hiatal hernia; Duggan's without dysplasia; Dr. Montoya 10/06/2021: EGD WITH BIOPSY(S) Comment: H. pylori +; Duggan's without dysplasia; Dr. Riggs 09/12/2022: EGD WITH BIOPSY(S) Comment: neg for H. pylori; Dr. Riggs 07/24/2023: LAPS SURG CHOLECYSTECTOMY W/CHOLANGIOGRAPHY 2004: PAST SURGICAL HISTORY OF Comment: Lymph Node Bx 1999 2005: TOTAL ABDOMINAL HYSTERECT W/WO RMVL TUBE OVARY Comment: and BSO - pelvic pain/benign ALLERGIES Penicillins MEDICATIONS predniSONE (DELTASONE) 10 mg tablet Take 4 tabs daily for 3 days, then 2 tabs daily for 3 days, then 1 tab daily for 3 days with food. doxycycline (VIBRA-TABS) 100 mg tablet Take 1 tablet by mouth two times a day for 10 days. EPINEPHrine (EPIPEN) 0.3 mg/0.3 mL auto-injector Inject intramuscularly. multivit with minerals/lutein (MULTIVITAMIN 50 PLUS ORAL) Take by mouth. amitriptyline (ELAVIL) 100 mg tablet take 1 tablet by mouth once daily at bedtime IBSRELA 50 mg tablet TAKE 1 TABLET BY MOUTH TWICE A DAY 10 MINUTES BEFORE EATING promethazine (PHENERGAN) 25 mg tablet Take 1 tablet by mouth every 8 hours as needed (for nausea). fluticasone (FLONASE) 50 mcg/actuation nasal spray Use 2 Sprays in each nostril once daily. Rinse mouth after use. ibuprofen (MOTRIN) 800 mg tablet Take 1 tablet by mouth every 8 hours as needed for pain. diclofenac (VOLTAREN) 1 % topical gel Apply 2 g to affected area twice daily. FASENRA PEN 30 mg/mL auto-injector Dexlansoprazole (DEXILANT) 60 mg CpDM Take 60 mg by mouth once daily. magnesium hydroxide (MILK OF MAGNESIA) 400 mg/5 mL suspension Take 15 mL by mouth once daily as needed for constipation. bisacodyl (DULCOLAX, BISACODYL,) 10 mg supp 1 Suppository by RECTAL route once daily as needed for constipation. famotidine (PEPCID) 40 mg tablet Take 1 tablet by mouth once d (more content not included)... Normal [facility] [place] 02-21-2024 B[facility] Telephone (GSTNOR) STEINBERG,JANE SHELLEY ([id number]) 1970 F FNS Date Time Provider Department 02/21/24 ROSELYN TOBAR During your visit today, we recorded the following information about you: Danielle Shabazz MA 02/21/2024 2:08 PM Signed Last office notes faxed to [facility] specialty pharmacy at [phone] Allergies As of Date: 02/21/2024 Noted Allergy Reaction PENICILLINS 06/11/2006 10 - Anaphylaxis Date Reviewed: 02/21/2024 Reviewed by: Latasha Salamanca MA - Fully Assessed Reason for Visit: [employer] - Other [4440] Prescriptions as of 02/21/2024 - predniSONE (DELTASONE) 10 mg tablet Take 4 tabs daily for 3 days, then 2 tabs daily for 3 days, then 1 tab daily for 3 days with food. - doxycycline (VIBRA-TABS) 100 mg tablet Take 1 tablet by mouth two times a day for 10 days. - EPINEPHrine (EPIPEN) 0.3 mg/0.3 mL auto-injector Inject intramuscularly. - multivit with minerals/lutein (MULTIVITAMIN 50 PLUS ORAL) Take by mouth. - amitriptyline (ELAVIL) 100 mg tablet take 1 tablet by mouth once daily at bedtime - IBSRELA 50 mg tablet TAKE 1 TABLET BY MOUTH TWICE A DAY 10 MINUTES BEFORE EATING - promethazine (PHENERGAN) 25 mg tablet Take 1 tablet by mouth every 8 hours as needed (for nausea). - fluticasone (FLONASE) 50 mcg/actuation nasal spray Use 2 Sprays in each nostril once daily. Rinse mouth after use. - ibuprofen (MOTRIN) 800 mg tablet Take 1 tablet by mouth every 8 hours as needed for pain. - diclofenac (VOLTAREN) 1 % topical gel Apply 2 g to affected area twice daily. - FASENRA PEN 30 mg/mL auto-injector - Dexlansoprazole (DEXILANT) 60 mg CpDM Take 60 mg by mouth once daily. - magnesium hydroxide (MILK OF MAGNESIA) 400 mg/5 mL suspension Take 15 mL by mouth once daily as needed for constipation. - bisacodyl (DULCOLAX, BISACODYL,) 10 mg supp 1 Suppository by RECTAL route once daily as needed for constipation. - famotidine (PEPCID) 40 mg tablet Take 1 tablet by mouth once daily as needed. - MUCUS RELIEF ER 600 mg 12 hr tablet Take 1,200 mg by mouth twice daily. - montelukast (SINGULAIR) 10 mg tablet Take 1 tablet by mouth daily at bedtime. - fluticasone-umeclidin- vilanter (TRELEGY ELLIPTA) 200-62.5-25 mcg inhalation powder Inhale as instructed. - albuterol HFA (VENTOLIN HFA) 90 mcg/actuation inhaler Inhale 2 Puffs as instructed every 4 hours as needed for wheezing/shortness of breath. - L. acidophilus-L. rhamnosus 15 billion cell cap Take 1 capsule by mouth once daily. FLORAJEN WOMEN. If on antibiotic, take at least 1-2 hours before or after antibiotic. KEEP REFRIGERATED - ergocalciferol 50,000 unit capsule (VITAMIN D2, DRISDOL) Take 1 capsule by mouth one time a week. - albuterol (PROVENTIL) 2.5 mg /3 mL (0.083 %) nebulizer solution Use 3 mL via nebulizer every 6 hours as needed. - COMPACT SPACE CHAMBER as directed. - ipratropium-albuterol (DUONEB) 0.5 mg-3 mg(2.5 mg base)/3 mL nebu Inhale 3 mL as instructed every 4 hours as needed. - PULSE OXIMETER CONTEC 1 Each as needed. - Comp Stocking,Knee,Regular, Med misc 2 Each once daily. - loratadine (CLARITIN) 10 mg tablet Take 1 tablet by mouth once daily. Meds Comments as of 06/25/2021: ` Problem List As Of Date 02/21/2024 Noted Resolved Asthma [J45.909] HISTORY OF CANCER OF UTERUS [Z85.42] 06/11/2006 05/18/2016 TOBACCO USE DISORDER [F17.200] 06/11/2006 Anorexia nervosa [F50.00] 06/11/2006 02/14/2024 Bulimia nervosa [F50.2] 06/11/2006 02/14/2024 Edema [R60.9] 06/11/2006 05/18/2016 DEPRESSIVE DISORDER NEC [F32.89] 06/27/2006 Community acquired pneumonia [J18.9] 11/03/2015 Cervicalgia [M54.2] 12/31/2015 Intractable chronic cluster headache [G44.021] 12/31/2015 Former tobacco use [Z87.891] 01/26/2016 Pedal edema [R60.0] 01/26/2016 VAIN I (vaginal intraepithelial neoplasia grade*05/18/2016 Centrilobular emphysema (HCC) [J43.2] 05/18/2016 Vitamin D deficiency [E55.9] 07/24/2016 Chronic neck and back pain [M54.2, M54.9, G89.2*08/23/2016 Myofascial pain [M79.18] 08/23/2016 Fibromyalgia [M79.7] 08/23/2016 Chest pain [R07.9] 01/16/2017 01/17/2017 Regurgitation [ZDU7205] 03/06/2017 Gastroesophageal reflux disease [K21.9] 03/06/2017 Chest pain [R07.9] 05/03/2017 Left leg weakness [R29.898] 09/10/2020 Chronic obstructive pulmonary disease (HCC) [J4*10/22/2020 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 [K22.70] 06/22/2021 Insomnia [G47.00] 06/25/2021 Malignant neoplasm of cervix (HCC) [C53.9] 11/25/2021 02/14/2024 Irritable bowel syndrome with constipation [K58*01/12/2023 Hiatal hernia [K44.9] 03/05/2023 Biliary calculus [K80.20] 07/10/2023 Overweight (BMI 25.0-29.9) [E66.3] 07/10/2023 History of COVID-19 [Z86.16] 07/10/2023 Encounter Status:Closed by DANIELLE SHABAZZ on 02/21/24 Normal [facility] XR TIBIA FIBULA 2V AP/LAT LT on 02-21-2024 XR TIBIA FIBULA 2V AP/LAT LT * * *Final Report* * * DATE OF EXAM: Feb 21 2024 8:55AM WOX 5265 - XR TIBIA FIBULA 2V AP/LAT LT / PROCEDURE REASON: Pain in left hernandez * * * * Physician Interpretation * * * * EXAMINATION: XR TIBIA FIBULA 2V AP/LAT LT CLINICAL HISTORY: Pain in left hernandez Technique: XR TIBIA FIBULA 2V AP/LAT LT -- LEFT with 2 views on 2 images Comparison: None RESULT: No acute fracture or dislocation. Joint spaces are maintained. IMPRESSION: No acute osseous abnormality Certified Orthotic Fitter: PSCB Transcribe Date/Time: Feb 26 2024 4:15P Dictated by : KATTY WU MD This examination was interpreted and the report reviewed and electronically signed by: KATTY WU MD on Feb 26 2024 4:17PM EST [id number] Normal [facility] XR Tibia and Fibula - left A P and Lateralon 02-21-2024 Radiology Study observation (narrative) [facility] XR Chest PA and Lateralon IMPRESSION: No acute radiographic abnormality. Certified Orthotic Fitter: [employer]INGS Transcribe Date/Time: Feb 14 2024 9:01A Dictated by : GENESIS HERNANDEZ MD This examination was interpreted and the report reviewed and electronically signed by: GENESIS HERNANDEZ MD on Feb 14 2024 9:02AM EST DIVISION OF RADIOLOGY * * *Final Report* * * DATE OF EXAM: Feb 14 2024 8:11AM WOX 5291 - XR CHEST 2V FRONTAL/LAT / PROCEDURE REASON: multiple diagnoses * * * * Physician Interpretation * * * * EXAMINATION: CHEST RADIOGRAPH (2 VIEW FRONTAL & LATERAL) CLINICAL HISTORY: COPD with exacerbation (HCC) Shortness of breath MQ: XC2_6 EXAM DATE/TIME: 02/14/2024 8:11 AM COMPARISON: Chest x-ray on 10/17/2023 RESULT: Lines, tubes, and devices: None. Lungs and pleura: No consolidation. No lung mass. No pleural effusion. No pneumothorax. Cardiomediastinal silhouette: Stable cardiomediastinal silhouette. Bones and soft tissues: Unremarkable. DIVISION OF RADIOLOGY [facility]14/[facility] * * *Final Report* * * DATE OF EXAM: Feb 14 2024 8:11AM WOX 5291 - XR CHEST 2V FRONTAL/LAT / PROCEDURE REASON: multiple diagnoses * * * * Physician Interpretation * * * * EXAMINATION: CHEST RADIOGRAPH (2 VIEW FRONTAL & LATERAL) CLINICAL HISTORY: COPD with exacerbation (HCC) Shortness of breath MQ: XC2_6 EXAM DATE/TIME: 02/14/2024 8:11 AM COMPARISON: Chest x-ray on 10/17/2023 RESULT: Lines, tubes, and devices: None. Lungs and pleura: No consolidation. No lung mass. No pleural effusion. No pneumothorax. Cardiomediastinal silhouette: Stable cardiomediastinal silhouette. Bones and soft tissues: Unremarkable. IMPRESSION IMPRESSION: No acute radiographic abnormality. Certified Orthotic Fitter: PSCB Transcribe Date/Time: Feb 14 2024 9:01A Dictated by : GENESIS HERNANDEZ MD This examination was interpreted and the report reviewed and electronically signed by: GENESIS HERNANDEZ MD on Feb 14 2024 9:02AM EST [facility] Radiology Study observation (narrative) [facility] XR Chest PA and LateralOrder ed By: Ccf Provider on 02-14-2024 [facility] CBC W Auto Differential pane l (Bld)on 01-16-2024 Basophils (Bld) [#/Vol] [facility] Basophils/100 WBC (Bld) 0.1 % C [facility] Differential cell count method Nom (Bld) Auto [facility] Eosinophils (Bld) [#/Vol] [facility] Eosinophils/100 WBC (Bld) 0.0 % [facility] Erythrocyte distribution width (RBC) [Ratio] 14.2 % 11.5 - 15.0 % [facility] Hematocrit (Bld) [Volume fraction] 46.2 % High 36.0 - 46.0 % [facility] Hemoglobin (Bld) [Mass/Vol] 14.6 g/dL 11.5 - 15.5 g/dL [facility] Immature granulocytes (Bld) [#/Vol] 0.03 10*3/uL [facility] Immature granulocytes/100 WBC (Bld) 0.3 % [facility] Interpretation and review of laboratory results Abnormal [facility] Lymphocytes (Bld) [#/Vol] 2.71 10*3/uL [facility] Lymphocytes/100 WBC (Bld) 31.4 % [facility] MCH (RBC) [Entitic mass] 27.9 pg 26. 0 - 34.0 pg [facility] MCHC (RBC) [Mass/Vol] 31.6 g/dL 30.5 - 36.0 g/dL [facility] MCV (RBC) [Entitic vol] 88.3 fL 80.0 - 100.0 fL [facility] Monocytes (Bld) [#/Vol] 0.76 10*3/uL [facility] Monocytes/100 WBC (Bld) 8.8 % [facility] Neutrophils (Bld) [#/Vol] 5.12 10*3/uL [facility] Neutrophils/100 WBC (Bld) 59.4 % [facility] Nucleated RBC (Bld) [#/Vol] NINF [facility] Nucleated RBC/100 WBC (Bld) [Ratio] 0.0 % /100 WBC [facility] Platelet mean volume (Bld) [Entitic vol] 11.5 fL 9.0 - 12.7 fL [facility] Platelets (Bld) [#/Vol] 383 10*3/uL [facility] RBC (Bld) [#/Vol] 5.23 10*6/uL High 3.90 - 5.2 0 m/uL [facility] WBC (Bld) [#/Vol] 8.63 10*3/uL [facility] No Panel InformationOrdered By: Ccf Provider on 01-03-2024 [facility] No Panel Informationon 01-02 IMPRESSION: Minimal degenerative changes. Certified Orthotic Fitter: GEENA Transcribe Date/Time: Jan 03 2024 7:43A Dictated by : GINGER MONTEMAYOR MD This examination was interpreted and the report reviewed and electronically signed by: GINGER MONTEMAYOR MD on Jan 03 2024 7:43AM EST DIVISION OF RADIOLOGY XR Ankle - right AP and Late ral and obliqueon 01-03-2024 IMPRESSION: No acute osseous findings. Certified Orthotic Fitter: PSCPasha Transcribe Date/Time: Jan 03 2024 7:43A Dictated by : GINGER MONTEMAYOR MD This examination was interpreted and the report reviewed and electronically signed by: GINGER MONTEMAYOR MD on Jan 03 2024 7:44AM EST DIVISION OF RADIOLOGY * * *Final Report* * * DATE OF EXAM: 2023 3:09PM WOX 5297 - XR ANKLE 3V AP/LAT/OBL RT / PROCEDURE REASON: Acute right ankle pain * * * * Physician Interpretation * * * * EXAMINATION: XR ANKLE 3V AP/LAT/OBL RT HISTORY: Right ankle pain after recently dropping a heavy item on ankle. Pain on lateral side of ankle. Acute right ankle pain . TECHNIQUE: XR ANKLE 3V AP/LAT/OBL RT Laterality: RIGHT Number of different views (projections): 3 M: XB_1 COMPARISON: RESULT: Ankle mortise is maintained. Os peroneum. Mild hindfoot degenerative changes. No acute fracture or dislocation. There are no bony erosions. DIVISION OF RADIOLOGY Provider, [facility] - 01/03/2024 * * *Final Report* * * DATE OF EXAM: 2023 3:09PM WOX 5297 - XR ANKLE 3V AP/LAT/OBL RT / PROCEDURE REASON: Acute right ankle pain * * * * Physician Interpretation * * * * EXAMINATION: XR ANKLE 3V AP/LAT/OBL RT HISTORY: Right ankle pain after recently dropping a heavy item on ankle. Pain on lateral side of ankle. Acute right ankle pain . TECHNIQUE: XR ANKLE 3V AP/LAT/OBL RT Laterality: RIGHT Number of different views (projections): 3 M: XB_1 COMPARISON: RESULT: Ankle mortise is maintained. Os peroneum. Mild hindfoot degenerative changes. No acute fracture or dislocation. There are no bony erosions. IMPRESSION IMPRESSION: No acute osseous findings. Certified Orthotic Fitter: PSCB Transcribe Date/Time: Jan 03 2024 7:43A Dictated by : GINGER MONTEMAYOR MD This examination was interpreted and the report reviewed and electronically signed by: GINGER MONTEMAYOR MD on Jan 03 2024 7:44AM EST [facility] XR Shoulder - left 3 Viewson 01-03-2024 * * *Final Report* * * DATE OF EXAM: 2023 3:09PM WOX 5252 - XR SHLDR >/=3V AP/RACHEL AP/OTHR LT / PROCEDURE REASON: multiple diagnoses * * * * Physician Interpretation * * * * EXAMINATION: XR SHLDR >/=3V AP/RACHEL AP/OTHR RT, XR SHLDR >/=3V AP/RACHEL AP/OTHR LT HISTORY: Pain in neck and painful lumps in bilateral axillary region. Pain in axilla, unspecified laterality Numbness and tingling of both upper extremities Numbness and tingling of both upper extremities . TECHNIQUE: XR SHLDR >/=3V AP/RACHEL AP/OTHR RT, XR SHLDR >/=3V AP/RACHEL AP/OTHR LT Laterality: RIGHT (accession [id number]), LEFT (accession [id number]) Number of different views (projections): 3 M: XB_1 COMPARISON: August 18, 2021 RESULT: Minimal glenohumeral and acromioclavicular degenerative changes bilaterally. No acute bone destruction. No acute fracture or dislocation. There are no bony erosions. DIVISION OF RADIOLOGY Provider, [facility] - 01/03/2024 * * *Final Report* * * DATE OF EXAM: 2023 3:09PM WOX 5252 - XR SHLDR >/=3V AP/RACHEL AP/OTHR LT / PROCEDURE REASON: multiple diagnoses * * * * Physician Interpretation * * * * EXAMINATION: XR SHLDR >/=3V AP/RACHEL AP/OTHR RT, XR SHLDR >/=3V AP/RACHEL AP/OTHR LT HISTORY: Pain in neck and painful lumps in bilateral axillary region. Pain in axilla, unspecified laterality Numbness and tingling of both upper extremities Numbness and tingling of both upper extremities . TECHNIQUE: XR SHLDR >/=3V AP/RACHEL AP/OTHR RT, XR SHLDR >/=3V AP/RACHEL AP/OTHR LT Laterality: RIGHT (accession [id number]), LEFT (accession [id number]) Number of different views (projections): 3 M: XB_1 COMPARISON: August 18, 2021 RESULT: Minimal glenohumeral and acromioclavicular degenerative changes bilaterally. No acute bone destruction. No acute fracture or dislocation. There are no bony erosions. IMPRESSION IMPRESSION: Minimal degenerative changes. Certified Orthotic Fitter: GEENA Transcribe Date/Time: Jan 03 2024 7:43A Dictated by : GINGER MONTEMAYOR MD This examination was interpreted and the report reviewed and electronically signed by: GINGER MONTEMAYOR MD on Jan 03 2024 7:43AM EST [facility] XR Shoulder - right 3 Viewso n 01-03-2024 * * *Final Report* * * DATE OF EXAM: 2023 3:09PM WOX 5253 - XR SHLDR >/=3V AP/RACHEL AP/OTHR RT / PROCEDURE REASON: multiple diagnoses * * * * Physician Interpretation * * * * EXAMINATION: XR SHLDR >/=3V AP/RACHEL AP/OTHR RT, XR SHLDR >/=3V AP/RACHEL AP/OTHR LT HISTORY: Pain in neck and painful lumps in bilateral axillary region. Pain in axilla, unspecified laterality Numbness and tingling of both upper extremities Numbness and tingling of both upper extremities . TECHNIQUE: XR SHLDR >/=3V AP/RACHEL AP/OTHR RT, XR SHLDR >/=3V AP/RACHEL AP/OTHR LT Laterality: RIGHT (accession [id number]), LEFT (accession [id number]) Number of different views (projections): 3 M: XB_1 COMPARISON: August 18, 2021 RESULT: Minimal glenohumeral and acromioclavicular degenerative changes bilaterally. No acute bone destruction. No acute fracture or dislocation. There are no bony erosions. DIVISION OF RADIOLOGY Provider, [facility] - 01/03/2024 * * *Final Report* * * DATE OF EXAM: 2023 3:09PM WOX 5253 - XR SHLDR >/=3V AP/RACHEL AP/OTHR RT / PROCEDURE REASON: multiple diagnoses * * * * Physician Interpretation * * * * EXAMINATION: XR SHLDR >/=3V AP/RACHEL AP/OTHR RT, XR SHLDR >/=3V AP/RACHEL AP/OTHR LT HISTORY: Pain in neck and painful lumps in bilateral axillary region. Pain in axilla, unspecified laterality Numbness and tingling of both upper extremities Numbness and tingling of both upper extremities . TECHNIQUE: XR SHLDR >/=3V AP/RACHEL AP/OTHR RT, XR SHLDR >/=3V AP/RACHEL AP/OTHR LT Laterality: RIGHT (accession [id number]), LEFT (accession [id number]) Number of different views (projections): 3 M: XB_1 COMPARISON: August 18, 2021 RESULT: Minimal glenohumeral and acromioclavicular degenerative changes bilaterally. No acute bone destruction. No acute fracture or dislocation. There are no bony erosions. IMPRESSION IMPRESSION: Minimal degenerative changes. Certified Orthotic Fitter: PSCB Transcribe Date/Time: Jan 03 2024 7:43A Dictated by : GINGER MONTEMAYOR MD This examination was interpreted and the report reviewed and electronically signed by: GINGER MONTEMAYOR MD on Jan 03 2024 7:43AM EST [facility] XR CERV OTHER 4V AP/LAT/FLX/ EXTon 12-31-2023 IMPRESSION: Cervical spine degenerative changes with multilevel disc space narrowing. Certified Orthotic Fitter: [facility] Transcribe Date/Time: Dec 31 2023 4:02P Dictated by : GENESIS HERNANDEZ MD This examination was interpreted and the report reviewed and electronically signed by: GENESIS HERNANDEZ MD on Dec 31 2023 4:04PM [facility] DIVISION OF RADIOLOGY * * *Final Report* * * DATE OF EXAM: 2023 3:09PM WOX 5310 - XR CERVICAL 4V AP/LAT/FLX/EXT / PROCEDURE REASON: multiple diagnoses * * * * Physician Interpretation * * * * EXAM TITLE: XR CERVICAL 4V AP/LAT/FLX/EXT EXAM DATE/TIME: 2023 3:09 PM COMPARISON: None. CLINICAL INDICATION/HISTORY: Pain. TECHNIQUE: AP, lateral, lateral extension and lateral flexion views of the cervical spine are presented. FINDINGS: No fractures or subluxations are noted. No change in alignment of the cervical spine with lateral extension and lateral flexion. C2 and C3 spinal fusion/partial spinal fusion is visualized. There is generalized disc space narrowing involving C3-C7 levels. There is mild to moderate osteophyte formation. Degenerative changes involving the bilateral Luschka joints. The prevertebral soft tissues are normal. DIVISION OF RADIOLOGY [facility], [facility] - 12/31/2023 * * *Final Report* * * DATE OF EXAM: 2023 3:09PM WOX 5310 - XR CERVICAL 4V AP/LAT/FLX/EXT / PROCEDURE REASON: multiple diagnoses * * * * Physician Interpretation * * * * EXAM TITLE: XR CERVICAL 4V AP/LAT/FLX/EXT EXAM DATE/TIME: 2023 3:09 PM COMPARISON: None. CLINICAL INDICATION/HISTORY: Pain. TECHNIQUE: AP, lateral, lateral extension and lateral flexion views of the cervical spine are presented. FINDINGS: No fractures or subluxations are noted. No change in alignment of the cervical spine with lateral extension and lateral flexion. C2 and C3 spinal fusion/partial spinal fusion is visualized. There is generalized disc space narrowing involving C3-C7 levels. There is mild to moderate osteophyte formation. Degenerative changes involving the bilateral Luschka joints. The prevertebral soft tissues are normal. IMPRESSION IMPRESSION: Cervical spine degenerative changes with multilevel disc space narrowing. Certified Orthotic Fitter: GEENA Transcribe Date/Time: Dec 31 2023 4:02P Dictated by : GENESIS HERNANDEZ MD This examination was interpreted and the report reviewed and electronically signed by: GENESIS HERNANDEZ MD on Dec 31 2023 4:04PM EST [facility] No Panel Informationon 12-27 Radiology Study observation (narrative) [facility] EMG(NEURO/NI)on 12-11-2023 Results can be seen in attached scanned documents. If you are a patient reviewing this test result, call the doctor who ordered the test with any questions. [facility] CBC W Auto Differential pane l (Bld)on 11-01-2023 Basophils (Bld) [#/Vol] NINF [facility] Basophils/100 WBC (Bld) 0.2 % [facility] Differential cell count method Nom (Bld) Auto [facility] Eosinophils (Bld) [#/Vol] NINF [facility] Eosinophils/100 WBC (Bld) 0.0 % [facility] Erythrocyte distribution width (RBC) [Ratio] 14.4 % 11.5 - 15.0 % [facility] Hematocrit (Bld) [Volume fraction] 46.3 % High 36.0 - 46.0 % [facility] Hemoglobin (Bld) [Mass/Vol] 14.1 g/dL 11.5 - 15.5 g/dL [facility] Immature granulocytes (Bld) [#/Vol] [facility] Immature granulocytes/100 WBC (Bld) 0.2 % [facility] Interpretation and review of laboratory results Abnormal [facility] Lymphocytes (Bld) [#/Vol] 2.43 10*3/uL [facility] Lymphocytes/100 WBC (Bld) 28.7 % [facility] MCH (RBC) [Entitic mass] 27.5 pg 26. 0 - 34.0 pg [facility] MCHC (RBC) [Mass/Vol] 30.5 g/dL 30.5 - 36.0 g/dL [facility] MCV (RBC) [Entitic vol] 90.3 fL 80.0 - 100.0 fL [facility] Monocytes (Bld) [#/Vol] 0.78 10*3/uL [facility] Monocytes/100 WBC (Bld) 9.2 % [facility] Neutrophils (Bld) [#/Vol] 5.23 10*3/uL [facility] Neutrophils/100 WBC (Bld) 61.7 % [facility] Nucleated RBC (Bld) [#/Vol] [facility] Nucleated RBC/100 WBC (Bld) [Ratio] 0.0 % /100 WBC [facility] Platelet mean volume (Bld) [Entitic vol] 11.4 fL 9.0 - 12.7 fL [facility] Platelets (Bld) [#/Vol] 404 10*3/uL High [facility] RBC (Bld) [#/Vol] 5.13 10*6/uL 3.90 - 5.2 0 m/uL [facility] WBC (Bld) [#/Vol] 8.48 10*3/uL [facility] Comprehensive metabolic 2000 panelon 11-01-2023 Albumin [Mass/Vol] 4.0 g/dL 3.9 - 4.9 g/dL [facility] ALP [Catalytic activity/Vol] 113 U/L 34 - 123 U/L [facility] ALT [Catalytic activity/Vol] 23 U/L 7 - 38 U/L [facility] Anion gap [Moles/Vol] 11 mmol/L 9 - 18 mmol/L [facility] AST [Catalytic activity/Vol] 25 U/L 13 - 35 U/L [facility] Bilirubin [Mass/Vol] mg/dL Low 0.2 - 1 .3 mg/dL [facility] Calcium [Mass/Vol] 9.7 mg/dL 8.5 - 10. 2 mg/dL [facility] Chloride [Moles/Vol] 103 mmol/L 97 - 10 5 mmol/L [facility] CO2 [Moles/Vol] 26 mmol/L 22 - 30 mmol/L [facility] Creatinine [Mass/Vol] 0.82 mg/dL 0.58 - 0.96 mg/dL [facility] GFR/1.73 sq M.predicted among non-blacks MDRD (S/P/Bld) [Vol rate/Area] 86 mL/min/{1.73_m2} - PINF [facility] Comment on above: Estimated Glomerular Filtration Rate (eGFR) is calculated using the 2020 CKD-EPI creatinine equation. This equation utilizes serum creatinine, sex, and age as parameters. The creatinine assay has traceable calibration to isotope dilution-mass spectrometry. Refer to KDIGO guidelines for clinical interpretation. In patients with unstable renal function, e.g. those with acute kidney injury, the eGFR may not accurately reflect actual GFR. Glucose [Mass/Vol] 105 mg/dL High 74 - 99 mg/dL [facility] Comment on above: The [place] Diabete s Association (ADA) provides guidance for cutoff values for fasting glucose and random glucose. The ADA defines fasting as no caloric intake for at least 8 hours. Fasting plasma glucose results between 100 to 125 mg/dL indicate increased risk for diabetes (prediabetes). Fasting plasma glucose results greater than or equal to 126 mg/dL meet the criteria for diagnosis of diabetes. In the absence of unequivocal hyperglycemia, results should be confirmed by repeat testing. In a patient with classic symptoms of hyperglycemia or hyperglycemic crisis, random plasma glucose results greater than or equal to 200 mg/dL meet the criteria for diagnosis of diabetes. Reference: Standards of Medical Care in Diabetes 2016, [place] Diabetes Association. Diabetes Care. 2016.39(Suppl 1). Interpretation and review of laboratory results Abnormal [facility] Potassium [Moles/Vol] 4.7 mmol/L 3.7 - 5.1 mmol/L [facility] Protein [Mass/Vol] 7.3 g/dL 6.3 - 8.0 g/dL [facility] Sodium [Moles/Vol] 140 mmol/L 136 - 144 mmol/L [facility] Urea nitrogen [Mass/Vol] 14 mg/dL 7 - 21 mg/dL [facility] HbA1c (Bld)on 11-01-2023 Average glucose Estimated from glycated hemoglobin (Bld) [Mass/Vol] 123 mg/dL [facility] Comment on above: eAG: (Estimated aver age glucose) is a calculated value from HgbA1c and is client care representative of the average blood glucose level in the last 2-3 month period. HbA1c (Bld) [Mass fraction] 5.9 % High 4.3 - 5.6 % [facility] Comment on above: [place] Diabetes As sociation guidelines indicate that patients with HgbA1c in the range 5.7-6.4% are at increased risk for development of diabetes, and intervention by lifestyle modification may be beneficial. HgbA1c greater or equal to 6.5% is considered diagnostic of diabetes. Interpretation and review of laboratory results Abnormal [facility] No Panel Informationon 10-31 Interpretation and review of laboratory results Normal [facility] THYROID STIMULATING HORMONEo n 11-01-2023 TSH Qn 3.530 m[IU]/L [facility] VITAMIN B12on 11-01-2023 Cobalamin (Vitamin B12) [Mass/Vol] 286 pg/mL 232 - 1245 pg/mL [facility] XR Chest PA and Lateralon IMPRESSION: No acute radiographic abnormality. Certified Orthotic Fitter: GEENA Transcribe Date/Time: Oct 17 2023 10:54A Dictated by : GENESIS HERNANDEZ MD This examination was interpreted and the report reviewed and electronically signed by: GENESIS HERNANDEZ MD on Oct 17 2023 10:54AM [facility] DIVISION OF RADIOLOGY * * *Final Report* * * DATE OF EXAM: Oct 17 2023 10:39AM WOX 5291 - XR CHEST 2V FRONTAL/LAT / PROCEDURE REASON: multiple diagnoses * * * * Physician Interpretation * * * * EXAMINATION: CHEST RADIOGRAPH (2 VIEW FRONTAL & LATERAL) CLINICAL HISTORY: Chest pain, unspecified type Shortness of breath MQ: XC2_6 EXAM DATE/TIME: 10/17/2023 10:39 AM COMPARISON: Chest x-ray on 08/10/2022 RESULT: Lines, tubes, and devices: None. Lungs and pleura: No consolidation. No lung mass. No pleural effusion. No pneumothorax. Cardiomediastinal silhouette: Normal cardiomediastinal silhouette. Bones and soft tissues: Unremarkable. DIVISION OF RADIOLOGY Provider, Bonnie Ramirez - 10/17/2023 * * *Final Report* * * DATE OF EXAM: Oct 17 2023 10:39AM WOX 5291 - XR CHEST 2V FRONTAL/LAT / PROCEDURE REASON: multiple diagnoses * * * * Physician Interpretation * * * * EXAMINATION: CHEST RADIOGRAPH (2 VIEW FRONTAL & LATERAL) CLINICAL HISTORY: Chest pain, unspecified type Shortness of breath MQ: XC2_6 EXAM DATE/TIME: 10/17/2023 10:39 AM COMPARISON: Chest x-ray on 08/10/2022 RESULT: Lines, tubes, and devices: None. Lungs and pleura: No consolidation. No lung mass. No pleural effusion. No pneumothorax. Cardiomediastinal silhouette: Normal cardiomediastinal silhouette. Bones and soft tissues: Unremarkable. IMPRESSION IMPRESSION: No acute radiographic abnormality. Certified Orthotic Fitter: PSCB Transcribe Date/Time: Oct 17 2023 10:54A Dictated by : GENESIS HERNANDEZ MD This examination was interpreted and the report reviewed and electronically signed by: GENESIS HERNANDEZ MD on Oct 17 2023 10:54AM [facility] Radiology Study observation (narrative) [facility] XR Chest PA and LateralOrder ed By: [facility] Provider on 10-17-2023 [facility] DBT Breast - bilateral diagn ostic for implanton 10-09-2023 [facility] No Panel Informationon 10-08 [facility] Absolute lymphocyte countOrd ered By: Compa Martin on 08-26-2023 Lymphocytes Auto (Unsp spec) [#/Vol] 1.83 10*3/uL 0.83-4.51 [facility] Automated lymphocyte count a s percentage of total leukocytesOrdered By: Compa Martin on 08-26-2023 Lymphocytes/100 WBC Auto (Unsp spec) 18.6 % 19-41 [facility] Basophil percentageOrdered B y: Compa Martin on 08-26-2023 Basophils/100 WBC (Bld) 0.4 % 0-1 [facility] Chloride [Moles/Vol] 108 mmol/L 98-107 [facility] Eosinophils/100 WBC (Bld) 0.2 % 0-5 [facility] Glucose [Mass/Vol] 99 mg/dL 74-106 [facility] Hemoglobin (Bld) [Mass/Vol] 13.3 g/dL 12.0-15.0 [facility] Monocytes/100 WBC (Bld) 9.5 % 0-10 [facility] Neutrophils (Bld) [#/Vol] 7.0 10*3/uL 2.0-7.7 [facility] Neutrophils/100 WBC (Bld) 70.8 % 47-70 [facility] Potassium [Moles/Vol] 3.6 mmol/L 3.5-5.1 [facility] Sodium [Moles/Vol] 139 mmol/L 136-145 [facility] WBC (Bld) [#/Vol] 9.9 10*3/uL 4.4-11.0 [facility] Determination of erythrocyte mean corpuscular volume (MCV)Ordered By: Compa Martin on 08-26-2023 MCV (RBC) [Entitic vol] 86.6 fL 81-99 [facility] Erythrocyte distribution wid th ratioOrdered By: Compa Martin on 08-26-2023 Erythrocyte distribution width (RBC) [Ratio] 14.0 % 11.6-14.6 [facility] Erythrocyte distribution wid th standard deviationOrdered By: Compa Martin on 08-26-2023 Erythrocyte distribution width (RBC) [Entitic vol] 44.7 fL 35.1-43.9 [facility] Hematocrit Auto (Bld) [Volum e fraction]Ordered By: Compa Martin on 08-26-2023 Hematocrit (Bld) [Volume fraction] 42.0 % 37-47 [facility] Immature granulocytes/100 WB C Auto (Bld)Ordered By: Compa Martin on 08-26-2023 Immature granulocytes/100 WBC (Bld) 0.500 % 0.0-0.9 [facility] Comment on above: IG% - Immature Granu locytes (promyelocytes, myelocytes and metamyelocytes) > 1% indicates that a LEFT SHIFT is Present. Laboratory - Chemistry and C hemistry - challengeOrdered By: Compa Martin on 08-26-2023 CO2 [Moles/Vol] 27.0 mmol/L 21.0-32.0 [facility] Natriuretic peptide B (Bld) [Mass/Vol] 12.8 pg/mL 0-100 [facility] Urea nitrogen/Creatinine [Mass ratio] 13.8 mg/mg 10-20 [facility] Laboratory - Hematology and Cell countsOrdered By: Compa Martin on 08-26-2023 MCH (RBC) [Entitic mass] 27.4 pg 27.0-32.0 [facility] MCHC (RBC) [Mass/Vol] 31.7 g/dL 32-36 [facility] Nucleated RBC/100 WBC (Bld) [Ratio] 0 % 0-5 [facility] Platelet mean volume (Bld) [Entitic vol] 10.3 fL 6.2-12.0 [facility] Platelets (Bld) [#/Vol] 357 10*3/uL 150-450 [facility] Laboratory - Microbiology an d Antimicrobial susceptibilityOrdered By: Compa Martin on 08-26-2023 SARS-CoV-2 (COVID-19) RNA ERYN+probe Ql (Unsp spec) [facility] No Panel InformationOrdered By: Compa Martin on 08-26-2023 Troponin I High Sensitivity 5 pg/mL 3.0-54.0 [facility] Comment on above: Please Note: New Gaby t Units and Gender Specific Reference Ranges. For more information see Policy Stat Procedure [place] High Sensitivity Troponin (TNIH) and attachments. Estimated Creatinine Clearance Calc 68.34 ml/min [facility] Estimated GFR (MDRD) Amer 97 mL/min >60 [facility] Comment on above: GFR Calc Estimated GFR (MDRD) Non-Af Amer 80 mL/min >60 [facility] Comment on above: Non- GFR Calc RBC Auto (Bld) [#/Vol]Ordere d By: Compa Martin on 08-26-2023 RBC (Bld) [#/Vol] 4.85 10*6/uL 4.2-5.4 [facility] Serum or plasma calcium tea urement (mass/volume)Ordered By: Compa Martin on 08-26-2023 Calcium [Mass/Vol] 8.8 mg/dL 8.5-10.1 [facility] Serum or plasma creatinine m easurement (mass/volume)Ordered By: Compa Martin on 08-26-2023 Creatinine [Mass/Vol] 0.80 mg/dL 0.55-1.02 [facility] Comment on above: The validity of the calculated GFR & GFRAA in patients over 70 years has not been determined. Clinical correlation is essential. Serum or plasma urea nitroge n measurement (mass/volume)Ordered By: Compa Martin on 08-26-2023 Urea nitrogen [Mass/Vol] 11 mg/dL 7-18 [facility] Thin prep Papanicolaou smear with manual screeningOrdered By: Compa Martin on 08-26-2023 Thin prep Papanicolaou smear with manual screening 4 -15 [facility] ANES POSTPROC EVALon 024 ANES POSTPROC EVAL HNO ID: [id number] Author: SHERYL SHEA MD Service: Anesthesiology Author Type: Anesthesiologist Type: Anesthesia Postprocedure Evaluation Filed: 07/24/2023 10:17 Note Text: POST ANESTHESIA EVALUATION NOTE : 1970 Procedure Summary Date: 07/24/23 Room / Location: [place] [address] / [place] Anesthesia Start: 734 Anesthesia Stop: 910 Procedure: LAPAROSCOPIC CHOLECYSTECTOMY WITH GRAMS (Abdomen) Diagnosis: Biliary calculus of other site without obstruction RUQ abdominal pain (Biliary calculus of other site without obstruction [K80.80]) (RUQ abdominal pain [R10.11]) Surgeons: Allison Montoya MD Responsible Provider: Sheryl Shea MD Anesthesia Type: general ASA Status: 3 Anesthesia Type: general Airway Type: ETT Last Vitals Vitals Value Taken Time BP 135/73 07/24/23 1000 Temp 36 ?C (96.8 ?F) 07/24/23 0910 HR SpO2 93 07/24/23 0910 Resp 26 07/24/23 1010 SpO2 93 % 07/24/23 1010 Vitals shown include unfiled device data. Post Anesthesia Patient Status Patient Evaluation: PACU. PACU/ICU Patient Condition: stable. Anticipated Disposition: phase 2 then home. Neurological Status: aware and responsive. Pulmonary Status: breathing comfortably on room air Airway Control: returned to baseline unsupported. Cardiovascular Status: stable. Pain Management: clinically adequate - multimodal analgesia pain management approach Postoperative Hydration: acceptable. Intraoperative Events: no significant anesthesia events Post Operative Nausea/Vomiting Status: no significant post operative nausea or vomiting Recommendation: continue current plan of care. Anesthesia Observations No Documentation SIGNATURE: Sheryl Shea MD PATIENT NAME: Jane Steinberg DATE: July 24, 2023 TIME: 10:17 AM CSN: [id number] [facility] ANES PRE-OPon 07-24-2023 ANES PRE-OP HNO ID: [id number] Author: MEJIA RIDER MD Service: Anesthesiology Author Type: Anesthesiologist Type: Anesthesia Preprocedure Evaluation Filed: 07/24/2023 07:09 Note Text: ANESTHESIOLOGY DAY OF SURGERY NOTE : 1970 Procedure Information Date/Time: 07/24/23729 Procedure: LAPAROSCOPIC CHOLECYSTECTOMY WITH GRAMS Location: [place] [facility] Surgeons: Allison Montoya MD Estimated body mass index is 24.75 kg/m? as calculated from the following: Height as of this encounter: 154.9 cm (5' 1). Weight as of this encounter: 59.4 kg (131 lb). Most recent hematocrit and potassium results: Hematocrit 44.7 06/08/2023 Potassium 4.8 06/08/2023 Relevant Problems GI (+) Gastroesophageal reflux disease (+) Hiatal hernia NEURO-PSYCH (+) History of COVID-19 (+) Intractable chronic cluster headache PULMONARY (+) Asthma (+) Centrilobular emphysema (HCC) (+) Chronic obstructive pulmonary disease (HCC) (+) Community acquired pneumonia (+) History of COVID-19 I - PHYSICAL EVALUATION AIRWAY Patient intubated: No. Mallampati: II. TM distance: >3 FB. Neck ROM: full ROM without neurological symptoms. Mouth opening: adequate. Short neck: no. DENTAL Dental findings: poor dentition. Dentures, upper: complete. II - ANESTHESIA PLAN ASA Score: 3 Anesthetic Plan: general Airway type: ETT NPO Status: adequate Beta Wayne Monitoring Plan Monitoring plan: standard ASA. Post Procedure Analgesic Plan Postoperative analgesic plan: multimodal analgesia. Patient / Surrogate agrees to blood products: blood products not planned DNR status not reviewed with patient and/or family prior to surgery. Significant changes in the patient condition since the History and Physical, not otherwise documented in primary service progress note: no. Vitals Value Taken Time BP 133/87 07/24/23 0650 Pulse Resp Temp 36.5 ?C (97.7 ?F) 07/24/23 0650 SpO2 98 % 07/24/23 0650 Facility-Administered Medications as of 07/24/2023 Medication Dose Route Frequency - lidocaine (PF) 10 mg/mL (1 %) 1-2 mg injection (XYLOCAINE) 0.1-0.2 mL INTRADERMAL PRN - lactated ringers iv infusion 5-30 mL/hr INTRAVENOUS CONTINUOUS - NaCl 0.9% iv flush bag 20 mL INTRAVENOUS PRN - vancomycin iv piggyback 1 g in D5W 200 mL (VANCOCIN) 1 g INTRAVENOUS Pre-Op Once - [COMPLETED] acetaminophen 1,000 mg tab(s) (TYLENOL) 1,000 mg ORAL Pre-Op Once - [COMPLETED] promethazine 12.5 mg tab(s) (PHENERGAN) 12.5 mg ORAL Pre-Op Once - lactated ringers iv infusion 30 mL/hr INTRAVENOUS CONTINUOUS Outpatient Medications as of 07/24/2023 Medication Sig - amitriptyline (ELAVIL) 100 mg tablet Take 1 tablet by mouth daily at bedtime. - Dexlansoprazole (DEXILANT) 60 mg CpDM Take 60 mg by mouth once daily. - famotidine (PEPCID) 40 mg tablet Take 1 tablet by mouth once daily as needed. - MUCUS RELIEF ER 600 mg 12 hr tablet Take 1,200 mg by mouth twice daily. - montelukast (SINGULAIR) 10 mg tablet Take 1 tablet by mouth daily at bedtime. - fluticasone-umeclidin- vilanter (TRELEGY ELLIPTA) 200-62.5-25 mcg inhalation powder Inhale as instructed. - albuterol HFA (VENTOLIN HFA) 90 mcg/actuation inhaler Inhale 2 Puffs as instructed every 4 hours as needed for wheezing/shortness of breath. - albuterol (PROVENTIL) 2.5 mg /3 mL (0.083 %) nebulizer solution Use 3 mL via nebulizer every 6 hours as needed. - ipratropium-albuterol (DUONEB) 0.5 mg-3 mg(2.5 mg base)/3 mL nebu Inhale 3 mL as instructed every 4 hours as needed. - PULSE OXIMETER CONTEC 1 Each as needed. - diclofenac (VOLTAREN) 1 % topical gel Apply 2 g to affected area twice daily. - FASENRA PEN 30 mg/mL auto-injector - tenapanor (IBSRELA) 50 mg tablet Take 1 tablet (50 mg) by mouth twice daily. 10 minutes before eating. - magnesium hydroxide (MILK OF MAGNESIA) 400 mg/5 mL suspension Take 15 mL by mouth once daily as needed for constipation. - bisacodyl (DULCOLAX, BISACODYL,) 10 mg supp 1 Suppository by RECTAL route once daily as needed for constipation. - L. acidophilus-L. rhamnosus 15 billion cell cap Take 1 capsule by mouth once daily. FLORAJEN WOMEN. If on antibiotic, take at least 1-2 hours before or after antibiotic. KEEP REFRIGERATED - ergocalciferol 50,000 unit capsule (VITAMIN D2, DRISDOL) Take 1 capsule by mouth one time a week. - PHENYLephrine-cocoa butter (PREPARATION H,PE,CB,) 0.25-88.44 % supp 1 Suppository by RECTAL route once daily. (Patient taking differently: 1 Suppository by RECTAL route as needed.) - COMPACT SPACE CHAMBER as directed. - Comp Stocking,Knee,Regular, Med misc 2 Each once daily. - loratadine (CLARITIN) 10 mg tablet Take 1 tablet by mouth once daily. I have interviewed and examined the patient. I have reviewed the medical record and/or the pre-anesthesia evaluation, pertinent labs, and test results. This contains updated information obtained within 48 hours of Surgery/Procedure. SIGNATURE: Mejia Rider MD PATIENT (more content not included)... [facility] BRIEF OP NOTon 07-24-2023 BRIEF OP NOT HNO ID: [id number] Author: ALLISON MONTOYA MD Service: General Surgery Author Type: Physician Type: Brief Op Note Filed: 07/24/2023 08:56 Note Text: BRIEF OPERATIVE NOTE SURGERY DATE: 07/24/2023 Incision/Procedure Start Time: 7:56 Incision Close/Procedure End Time: 8:54 Surgeon(s)/Procedurali st(s) and Back End Web Developer(s): Valarie Procedures: Laparoscopic cholecystectomy with cholangigrams Anesthesia: General Findings: normal cholangiograms, cholelithiasis with obstruction (hydrops) and cholecystitis Estimated Blood Loss: 10 ml Specimens: gallbladder and contents Complications: None Closure Technique: Primary Preop Diagnosis: cholelithiaiss, RUQ abdomial pain Postop Diagnosis: cholelithiasis with obstruction (hydrops) and cholecystitis SIGNATURE: Allison Montoya MD PATIENT NAME: Jane Steinberg DATE: July 24, 2023 TIME: 8:53 AM Acct: [id number] [facility] OPERATIVE NOon 07-24-2023 OPERATIVE NO HNO ID: [id number] Author: ALLISON MONTOYA MD Service: General Surgery Author Type: Physician Type: Operative Report Filed: 07/24/2023 16:00 Note Text: [facility] - Operative Report JANE STEINBERG : 1970 AGE: 52. SEX: F PATIENT TYPE: [facility] LOCATION: [facility] ATTENDING PHYSICIAN: Allison Montoya M.D. CSN NUMBER: [id number] DATE OF SURGERY/PROCEDURE: 07/24/2023 INCISION/PROCEDURE START TIME: 7:56 AM INCISION CLOSE/PROCEDURE END TIME: 8:55 AM PREOPERATIVE DIAGNOSIS: Cholelithiasis and right upper quadrant abdominal pain. POSTOPERATIVE DIAGNOSIS: Cholelithiasis with obstruction and cholecystitis. SURGEON: Allison Montoya M.D. ACCOUNT GENERAL MANAGER: 1st assistant prosecuting attorney, Zuleika Bush. She has assisted me as there is no surgery residents available. She assisted in retraction during the procedure and closure of the wounds under my supervision. SURGERY/PROCEDURE: Laparoscopic cholecystectomy with cholangiogram. ANESTHESIA: General endotracheal anesthesia. LOCATION: [facility] [place]. INDICATIONS: The patient is a 52-year-old white female who presents with right upper quadrant abdominal pain and findings of cholelithiasis by ultrasound. She therefore presents for laparoscopic cholecystectomy. She has been counseled on the risks of the procedure including, but not limited to infection, bleeding, injury to any bowel or bladder, injury to any blood vessels or nerves, scar tissue, injury to any internal organs such as the liver and/or the spleen, injury to the common bile duct and/or biliary tree, possible bile leakage, internal abscess and/or bleeding, incisional trocar site hernias, wound infections, cosmetic deformity, complications of anesthesia, etc. The patient understands and agrees to proceed. DESCRIPTION OF PROCEDURE: After informed consent was given, the patient was brought to the operating room. Appropriate time-out protocol was followed. The patient was then placed under general endotracheal anesthesia by the anesthesia provider. The patient's abdomen was then prepped with sterile surgical skin preparation. Appropriate sterile surgical drapes were placed. The supraumbilical skin fold was grasped with 2 penetrating towel clips and the skin and subcutaneous tissues were infiltrated with local anesthetic. An incision was made with a 15 blade scalpel. The anterior abdominal wall was elevated and Veress needle was carefully inserted into the intraabdominal cavity. A normal saline drop test was done and was noted to be correct. CO2 pneumoperitoneum was created. Once this was achieved, the Veress needle was removed and 11 mm trocar was placed instead. A 10 mm laparoscope was then inserted into the trocar. Under direct visualization, the contents of the intraabdominal cavity was carefully examined. There was no evidence of any injury from insertion of Veress needle or the trocar. Under direct visualization, two 5 mm right subcostal trocars were placed as well as one 5 mm subxiphoid trocar. The skin and subcutaneous tissues were infiltrated with local anesthetic prior to placement of these trocars. Attention was then directed to the RUQ of the abdominal cavity. The gallbladder was noted to be grossly distended. Needle aspiration was done and clear fluid was obtained from the gallbladder contents. This was consistent with hydrops and thus, cholelithiasis with obstruction. Once needle aspiration was done, the gallbladder could be easily grasped. Graspers were placed in the 2 right sided trocars, 1 grasper was grasping the gallbladder distally and directed cephalad and the other was grasping the gallbladder Catracho's pouch and directing it laterally. Dissection then began around the area of the triangle of Calot. The critical triangle was identified. A clip was placed across the cystic artery Proximally for hemostasis control. A clip was then placed across the neck of the gallbladder. A small ductotomy was then created. A Ranfac catheter was brought in through a separate skin incision and placed into the cystic duct. Intraoperative cholangiogram was obtained which revealed no lesions in the common bile duct and good flow into the duodenum. The Ranfac catheter was then removed. 2 clips were placed proximal to the ductotomy and cystic duct was then transected. Clips were placed on the proximal cystic artery and distally and was then transected between the distal and proximal clips. The gallbladder was then removed from liver bed using electrocautery. The posterior gallbladder wall was densely adhesed to the liver bed. This was consistent with acute on chronic cholecystitis. This precluded keeping the gallbladder wall intact. The gallbladder once completely from the liver bed was then placed in the endobag and brought out through the periumbilical trocar site. It was then forwarded to Pathology for analysis. The area was then vigor (more content not included)... [facility] SURGICAL PATHOLOGYon 024 CASE REPORT [facility] Comment on above: Order Comment: Sonja tom Type: TISSUE SPECIMEN Ordering Facility: [facility] Address: [address] [place] [address] Result Comment: Surg ica Pathology Report Case: [id number] Authorizing Provider: Allison Montoya MD Collected: 07/24/2023 08:19 AM Ordering Location: [facility] Surgery Received: 07/24/2023 10:37 AM Pathologist: Mayo Matute MD Specimen: GALLBLADDER Performed By: #### S #### [facility] CLIA [id number] [address] [place] [address] [place] CLINICAL HISTORY Normal [facility] Comment on above: Order Comment: Sonja tom Type: TISSUE SPECIMEN Ordering Facility: [facility] Address: [address] [place] [address] Result Comment: Pre- op diagnosis: Biliary calculus of other site without obstruction [K80.80] RUQ abdominal pain [R10.11] Performed By: #### S #### [facility] CLIA [id number] [address] [place] [address] [place] FINAL DIAGNOSIS [facility] Comment on above: Order Comment: Sonja tom Type: TISSUE SPECIMEN Ordering Facility: [facility] Address: [address] [place] [address] Result Comment: A. G allbladder, cholecystectomy: - Partially denuded gallbladder mucosa with features of chronic cholecystitis. - Cholelithiasis. Performed By: #### S #### [facility] CLIA [id number] [address] [place] [address] [place] FINAL PERFORMING LAB Normal [facility] Comment on above: Order Comment: Speci men Type: TISSUE SPECIMEN Ordering Facility: [facility] Address: [address] [place] [address] Result Comment: Diag nostic interpretation performed at [facility], [address] [place] [address] CLIA# [id number] [employer] Well Shooter: Adeel Bahena M.D. Performed By: #### S #### [facility] CLIA [id number] [address] [place] [address] [place] GROSS DESCRIPTION A. GALLBLADDER Normal [facility] Comment on above: Order Comment: Speci men Type: TISSUE SPECIMEN Ordering Facility: [facility] Address: [address] [place] [address] Result Comment: Rece ived in formalin, labeled gallbladder is a gallbladder measuring 7.2 x 2.5 x 1.0 cm. The serosal aspect is purple-lewis and diffusely hyperemic. A defect is present at the fundus, on the hepatic bed, measuring 2.3 cm in greatest dimension. The lumen is devoid of contents. The wall of the gallbladder averages 0.1 cm in thickness. Calculi are present, are lewis-yellow, firm, bosselated, and measure up to 1.7 cm in greatest dimension. A calculus is impacted in the cystic duct. The mucosa is pink-red, glistening and trabeculated. Eap Counselor sections are submitted in cassette A1. AKA July 24, 2023 1:41 PM Gross examination performed at [facility], [address] [place] [address] Performed By: #### S #### [facility] CLIA [id number] [address] [place] [address] [place] HISTORY PHYSICALon HISTORY PHYSICAL HNO ID: [id number] Author: ALLISON MONTOYA MD Service: General Surgery Author Type: Physician Type: H&P Filed: 07/23/2023 12:15 Note Text: HISTORY AND PHYSICAL Jane Steinberg 1970 REFERRING PHYSICIAN: Laura Hernandez APRN.DUMPER CHIEF COMPLAINT: Consult (RUQ pain) HPI: The patient is a 52 year old female presents with RUQ abdominal pain for the past two weeks. She states that it is a severe ache with occasional sharp pains. She notes some nausea and emesis. She was noted to have gallstones by US 06/12/2023 She states that her mother had gallbladder disease She denies icterus and/or jaundice She denies fevers. Patient is a heavy cigarettes user PAST MEDICAL HISTORY PAST MEDICAL HISTORY Diagnosis Date Anorexia nervosa 06/11/2006 Stable; treated in past Anxiety Asthma 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 02/13/2020 Bulimia nervosa 06/11/2006 Stable, treated in past Cancer (HCC) Chest pain Chronic obstructive pulmonary disease (COPD) (HCC) Emphysema lung (HCC) GERD (gastroesophageal reflux disease) H. pylori infection cronic Hiatal hernia 02/13/2020 small HISTORY OF CANCER OF UTERUS 06/11/20062003, Hysterectomy - complete Internal hemorrhoids Lung disease Migraines Snoring Tobacco use disorder 06/11/2006 Quit 09/2015. Unspecified asthma(493.90) Childhood diagnosis. PAST SURGICAL HISTORY PAST SURGICAL HISTORY Procedure Laterality Date APPENDECTOMY 1998 COLONOSCOPY 01/12/2023 no specimens, next colonoscopy 2029 EGD WITH BIOPSY(S) 03/13/2017 Dr. Shook EGD WITH BIOPSY(S) 02/13/2020 small hiatal hernia; Duggan's without dysplasia; Dr. Montoya EGD WITH BIOPSY(S) 10/06/2021 H. pylori +; Duggan's without dysplasia; Dr. Riggs EGD WITH BIOPSY(S) 09/12/2022 neg for H. pylori; Dr. Riggs PAST SURGICAL HISTORY OF 2003 Lymph Node Bx 1999 TOTAL ABDOMINAL HYSTERECT W/WO RMVL TUBE OVARY 2004 and BSO - pelvic pain/benign Current Outpatient Medications Medication Sig amitriptyline (ELAVIL) 100 mg tablet Take 1 tablet by mouth daily at bedtime. diclofenac (VOLTAREN) 1 % topical gel Apply 2 g to affected area twice daily. FASENRA PEN 30 mg/mL auto-injector tenapanor (IBSRELA) 50 mg tablet Take 1 tablet (50 mg) by mouth twice daily. 10 minutes before eating. promethazine (PHENERGAN) 25 mg tablet Take 1 tablet by mouth every 8 hours as needed (for nausea). peg 3350-Electrolytes (GOLYTELY) 236-22.74-6.74 -5.86 gram suspension Refer to printed patient instructions that will be mailed to you. Dexlansoprazole (DEXILANT) 60 mg CpDM Take 60 mg by mouth once daily. magnesium hydroxide (MILK OF MAGNESIA) 400 mg/5 mL suspension Take 15 mL by mouth once daily as needed for constipation. bisacodyl (DULCOLAX, BISACODYL,) 10 mg supp 1 Suppository by RECTAL route once daily as needed for constipation. lactulose (ENULOSE) 10 gram/15 mL solution Take 15 mL by mouth twice daily. famotidine (PEPCID) 40 mg tablet Take 1 tablet by mouth once daily as needed. MUCUS RELIEF ER 600 mg 12 hr tablet Take 1,200 mg by mouth twice daily. montelukast (SINGULAIR) 10 mg tablet Take 1 tablet by mouth daily at bedtime. fluticasone-umeclidin- vilanter (TRELEGY ELLIPTA) 200-62.5-25 mcg inhalation powder Inhale as instructed. zolpidem (AMBIEN) 5 mg tablet Take 1 tablet by mouth at bedtime as needed for sedation for up to 30 days. albuterol HFA (VENTOLIN HFA) 90 mcg/actuation inhaler Inhale 2 Puffs as instructed every 4 hours as needed for wheezing/shortness of breath. L. acidophilus-L. rhamnosus 15 billion cell cap Take 1 capsule by mouth once daily. FLORAJEN WOMEN. If on antibiotic, take at least 1-2 hours before or after antibiotic. KEEP REFRIGERATED ergocalciferol 50,000 unit capsule (VITAMIN D2, DRISDOL) Take 1 capsule by mouth one time a week. albuterol (PROVENTIL) 2.5 mg /3 mL (0.083 %) nebulizer solution Use 3 mL via nebulizer every 6 hours as needed. PHENYLephrine-cocoa butter (PREPARATION H,PE,CB,) 0.25-88.44 % supp 1 Suppository by RECTAL route once daily. (Patient taking differently: 1 Suppository by RECTAL route as needed.) COMPACT SPACE CHAMBER as directed. ipratropium-albuterol (DUONEB) 0.5 mg-3 mg(2.5 mg base)/3 mL nebu Inhale 3 mL as instructed every 4 hours as needed. PULSE OXIMETER CONTEC 1 Each as needed. Comp Stocking,Knee,Regular, Med misc 2 Each once daily. loratadine (CLARITIN) 10 mg tablet Take 1 tablet by mouth once daily. fluticasone (FLONASE) 50 mcg/actuation nasal spray Use 2 Sprays in each nostril once daily. Rinse mouth after use. ALLERGIES: Penicillins PERSONAL HISTORY: SOCIAL HISTORY Social History Tobacco Use Smoking status: Every Day Packs/day: 0.25 Years: 29.00 Additional pack years: 0.00 Total pack years: 7.25 Types: Cigarettes Start date: 11/17/1986 Last attempt to quit: 11/23/2021 Years since quittin.5 Smokeless tobacco: Never Vaping Use Vaping Use: Never used Substance Use Topics (more content not included)... Normal [facility] US ABD RIGHT UPPER QUADRANTo n 06-12-2023 [facility] CBC W Auto Differential pane l (Bld)on 06-08-2023 Basophils (Bld) [#/Vol] <0.11 k/uL [facility] Basophils/100 WBC (Bld) 0.2 % [facility] Differential cell count method Nom (Bld) Auto [facility] Eosinophils (Bld) [#/Vol] <0.46 k/uL [facility] Eosinophils/100 WBC (Bld) 0.1 % [facility] Erythrocyte distribution width (RBC) [Ratio] 14.0 % 11.5 - 15.0 % [facility] Hematocrit (Bld) [Volume fraction] 44.7 % 36.0 - 46.0 % [facility] Hemoglobin (Bld) [Mass/Vol] 14.4 g/dL 11.5 - 15.5 g/dL [facility] Immature granulocytes (Bld) [#/Vol] 0.04 10*3/uL <0.10 k/uL [facility] Immature granulocytes/100 WBC (Bld) 0.5 % [facility] Lymphocytes (Bld) [#/Vol] 2.71 10*3/uL 1.00 - 4.00 k/uL [facility] Lymphocytes/100 WBC (Bld) 31.7 % [facility] MCH (RBC) [Entitic mass] 27.9 pg 26. 0 - 34.0 pg [facility] MCHC (RBC) [Mass/Vol] 32.2 g/dL 30.5 - 36.0 g/dL [facility] MCV (RBC) [Entitic vol] 86.6 fL 80.0 - 100.0 fL [facility] Monocytes (Bld) [#/Vol] 0.67 10*3/uL <0.87 k/uL [facility] Monocytes/100 WBC (Bld) 7.8 % [facility] Neutrophils (Bld) [#/Vol] 5.09 10*3/uL 1.45 - 7.50 k/uL [facility] Neutrophils/100 WBC (Bld) 59.7 % [facility] Nucleated RBC (Bld) [#/Vol] <0.01 k/uL [facility] Nucleated RBC/100 WBC (Bld) [Ratio] 0.0 /100 WBC [facility] Platelet mean volume (Bld) [Entitic vol] 10.6 fL 9.0 - 12.7 fL [facility] Platelets (Bld) [#/Vol] 413 10*3/uL High 150 - 400 k/uL [facility] RBC (Bld) [#/Vol] 5.16 10*6/uL 3.90 - 5.2 0 m/uL [facility] WBC (Bld) [#/Vol] 8.54 10*3/uL 3.70 - 11.00 k/uL [facility] UA DIP, URINE (POC)on 2022 BILIRUBIN UA (POCT) Negative Negative [facility] CLARITY UA (POCT) Clear [facility] COLOR UA (POCT) Yellow [facility] GLUCOSE UA (POCT) Negative Negative mg/dL [facility] Hemoglobin Ql (U) Negative Negative [facility] KETONE UA (POCT) Negative Negative mg/dL [facility] LEUKOCYTES UA (POCT) Negative Negative [facility] NITRITE UA (POCT) Negative Negative [facility] PH UA (POCT) 5.5 4.5 - 8.0 [facility] Protein Ql (U) Negative Negative mg/dL [facility] SPECIFIC GRAVITY UA (POCT) 1.010 1.005 - 1.030 [facility] UROBILINOGEN UA (POCT) 0.2 E.U./dL Aniyah l E.U./dL [facility] Absolute lymphocyte countOrd ered By: Aydin Almodovar on 05-18-2023 Lymphocytes Auto (Unsp spec) [#/Vol] 2.44 10*3/uL 0.83-4.51 [facility] Basophil percentageOrdered B y: Aydin Almodovar on 05-18-2023 Basophils/100 WBC (Bld) 0.2 % 0-1 [facility] Chloride [Moles/Vol] 104 mmol/L 98-107 [facility] Eosinophils/100 WBC (Bld) 0.0 % 0-5 [facility] Glucose [Mass/Vol] 126 mg/dL 74-106 [facility] Comment on above: Fasting Glucose resu lt greater than or equal to 126 mg/dL suggests DIABETES MELLITUS per A.D.A. criteria. Neutrophils (Bld) [#/Vol] 8.3 10*3/uL 2.0-7.7 [facility] Neutrophils/100 WBC (Bld) 72.5 % 47-70 [facility] Potassium [Moles/Vol] 3.5 mmol/L 3.5-5.1 [facility] Sodium [Moles/Vol] 136 mmol/L 136-145 [facility] WBC (Bld) [#/Vol] 11.4 10*3/uL 4.4-11.0 [facility] Blood erythrocytes count (nu mber/volume)Ordered By: Aydin Almodovar on 05-18-2023 RBC (Bld) [#/Vol] 4.75 10*6/uL 4.2-5.4 [facility] Blood hemoglobin measurement (mass/volume)Ordered By: Aydin Almodovar on 05-18-2023 Hemoglobin (Bld) [Mass/Vol] 13.2 g/dL 12.0-15.0 [facility] Blood lymphocytes/100 leukoc ytesOrdered By: Aydin Almodovar on 05-18-2023 Lymphocytes/100 WBC (Bld) 21.5 % 19-41 [facility] Blood monocytes/100 leukocyt esOrdered By: Aydin Almodovar on 05-18-2023 Monocytes/100 WBC (Bld) 5.4 % 0-10 [facility] Blood platelet mean volumeOr dered By: Aydin Almodovar on 05-18-2023 Platelet mean volume (Bld) [Entitic vol] 10.2 fL 6.2-12.0 [facility] Determination of erythrocyte mean corpuscular volume (MCV)Ordered By: Aydin Almodovar on 05-18-2023 MCV (RBC) [Entitic vol] 86.7 fL 81-99 [facility] Hematocrit Auto (Bld) [Volum e fraction]Ordered By: Aydin Almodovar on 05-18-2023 Hematocrit (Bld) [Volume fraction] 41.2 % 37-47 [facility] Laboratory - Chemistry and C hemistry - challengeOrdered By: Aydin Almodovar on 05-18-2023 CO2 [Moles/Vol] 27.0 mmol/L 21.0-32.0 [facility] Urea nitrogen/Creatinine [Mass ratio] 12.6 mg/mg 10-20 [facility] Laboratory - Hematology and Cell countsOrdered By: Aydin Almodovar on 05-18-2023 Erythrocyte distribution width (RBC) [Entitic vol] 45.2 fL 35.1-43.9 [facility] Erythrocyte distribution width (RBC) [Ratio] 14.1 % 11.6-14.6 [facility] Immature granulocytes/100 WBC (Bld) 0.400 % 0.0-0.9 [facility] Comment on above: IG% - Immature Granu locytes (promyelocytes, myelocytes and metamyelocytes) > 1% indicates that a LEFT SHIFT is Present. MCH (RBC) [Entitic mass] 27.8 pg 27.0-32.0 [facility] Nucleated RBC/100 WBC (Bld) [Ratio] 0 % 0-5 [facility] MCHC Auto (RBC) [Mass/Vol]Or dered By: Aydin Almodovar on 05-18-2023 MCHC (RBC) [Mass/Vol] 32.0 g/dL 32-36 [facility] No Panel InformationOrdered By: Aydin Almodovar on 05-18-2023 Troponin I High Sensitivity 4 pg/mL 3.0-54.0 [facility] Comment on above: Please Note: New Gaby t Units and Gender Specific Reference Ranges. For more information see Policy Stat Procedure [place] High Sensitivity Troponin (TNIH) and attachments. D-Dimer Quantitative (PE/DVT) 0.47 FEU/ug/m 0.27-0.49 [facility] Comment on above: NORMAL D-Dimer level (<0.50) indicates no DVT or PE. Estimated Creatinine Clearance Calc 47.66 ml/min [facility] Estimated GFR (MDRD) Amer 72 mL/min >60 [facility] Comment on above: GFR Calc Estimated GFR (MDRD) Non-Af Amer 60 mL/min >60 [facility] Comment on above: Non- GFR Calc Platelets bldOrdered By: Sharon Almodovar on 05-18-2023 Platelets (Bld) [#/Vol] 396 10*3/uL 150-450 [facility] Serum or plasma calcium tea urement (mass/volume)Ordered By: Aydin Almodovar on 05-18-2023 Calcium [Mass/Vol] 9.0 mg/dL 8.5-10.1 [facility] Serum or plasma creatinine m easurement (mass/volume)Ordered By: Aydin Almodovar on 05-18-2023 Creatinine [Mass/Vol] 1.03 mg/dL 0.55-1.02 [facility] Comment on above: The validity of the calculated GFR & GFRAA in patients over 70 years has not been determined. Clinical correlation is essential. Serum or plasma urea nitroge n measurement (mass/volume)Ordered By: Aydin Almodovar on 05-18-2023 Urea nitrogen [Mass/Vol] 13 mg/dL 7-18 [facility] Thin prep Papanicolaou smear with manual screeningOrdered By: Aydin Almodovar on 05-18-2023 Thin prep Papanicolaou smear with manual screening 5 -15 [facility] US BREAST LTD RIGHTon 2022 [facility] UA DIP, URINE (POC)on 2022 BILIRUBIN UA (POCT) Negative Negative [facility] CLARITY UA (POCT) Clear [facility] COLOR UA (POCT) Yellow [facility] GLUCOSE UA (POCT) Negative Negative mg/dL [facility] Hemoglobin Ql (U) Negative Negative [facility] KETONE UA (POCT) Negative Negative mg/dL [facility] LEUKOCYTES UA (POCT) Negative [facility] NITRITE UA (POCT) Negative Negative [facility] PH UA (POCT) 6.0 4.5 - 8.0 [facility] Protein Ql (U) Negative Negative mg/dL [facility] SPECIFIC GRAVITY UA (POCT) 1.010 1.005 - 1.030 [facility] UROBILINOGEN UA (POCT) 0.2 E.U./dL Aniyah l E.U./dL [facility] CNCOon 03-05-2023 CNCO Letter Text Normal [facility] CNOVon 03-05-2023 CNOV Office Visit (AGGENS 4) JANE STEINBERG ([id number]) 1970 F Date Time Provider Department 03/05/23 9:30 AM KHANH MATA AGGENS4 During your visit today, we recorded the following information about you: Pulse Blood pressure Weight Height 78/minute 118/74 58.8 kg 1.549 m Khanh Mata MD 03/05/2023 11:41 AM Signed [facility] [address] [facility] [place] [address] Khanh Mata MD New Reflux H/P Referred by: Roselyn Tobar PA-C History of Present Illness: Patient is a 52 year old female whose Body mass index is 24.49 kg/m?. who presents to general surgery clinic for initial consultation. The patient presents with chief complaint of GERD and hiatal hernia. They report a history of heartburn, dysphagia, and regurgitation which have been ongoing for 5 years. Exacerbating factors: spicy foods but any food could cause symptoms. Alleviating factors: taking antacids. Additional symptoms: bad smell, vomiting, and choking sensation . Prior workup: EGD, UGI, colonoscopy, CT scan. Taking Dexilant pepcid and then takes tums 3 times per day. Smoke half a pack per day which she has decreased for the last 3 years. Drinks multiple cups of coffee per day. Review of Systems: Review of Systems HENT: Negative. Eyes: Negative. Respiratory: Negative. Cardiovascular: Negative. Gastrointestinal: Positive for heartburn, nausea and vomiting. Genitourinary: Negative. Musculoskeletal: Negative. Skin: Negative. Neurological: Negative. Endo/Heme/Allergies: Negative. Psychiatric/Behavioral : Negative. Past Medical History: PAST MEDICAL HISTORY Diagnosis Date Anorexia nervosa 06/11/2006 Stable; treated in past Anxiety Asthma 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 02/13/2020 Bulimia nervosa 06/11/2006 Stable, treated in past Cancer (HCC) Chest pain Chronic obstructive pulmonary disease (COPD) (HCC) Emphysema lung (HCC) GERD (gastroesophageal reflux disease) H. pylori infection cronic Hiatal hernia 02/13/2020 small HISTORY OF CANCER OF UTERUS 06/11/2006 2004, Hysterectomy - complete Internal hemorrhoids Lung disease Migraines Snoring Tobacco use disorder 06/11/2006 Quit 09/2015. Unspecified asthma(493.90) Childhood diagnosis. Past Surgical History: PAST SURGICAL HISTORY Procedure Laterality Date APPENDECTOMY 1998 EGD WITH BIOPSY(S) 03/13/2017 Dr. Shook EGD WITH BIOPSY(S) 02/13/2020 small hiatal hernia; Duggan's without dysplasia; Dr. Montoya EGD WITH BIOPSY(S) 10/06/2021 H. pylori +; Duggan's without dysplasia; Dr. Riggs EGD WITH BIOPSY(S) 09/12/2022 neg for H. pylori; Dr. Riggs PAST SURGICAL HISTORY OF 2004 Lymph Node Bx 1999 TOTAL ABDOMINAL HYSTERECT W/WO RMVL TUBE OVARY 2004 and BSO - pelvic pain/benign Current Medications: Current Outpatient Medications Medication Sig FASENRA PEN 30 mg/mL auto-injector LINZESS 290 mcg capsule TAKE 1 CAPSULE BY MOUTH ONCE DAILY 6AM. tenapanor (IBSRELA) 50 mg tablet Take 1 tablet (50 mg) by mouth twice daily. 10 minutes before eating. ibuprofen (MOTRIN) 800 mg tablet Take 1 tablet by mouth every 8 hours as needed for pain. promethazine (PHENERGAN) 25 mg tablet Take 1 tablet by mouth every 8 hours as needed (for nausea). peg 3350-Electrolytes (GOLYTELY) 236-22.74-6.74 -5.86 gram suspension Refer to printed patient instructions that will be mailed to you. Dexlansoprazole (DEXILANT) 60 mg CpDM Take 60 mg by mouth once daily. magnesium hydroxide (MILK OF MAGNESIA) 400 mg/5 mL suspension Take 15 mL by mouth once daily as needed for constipation. lactulose (ENULOSE) 10 gram/15 mL solution Take 15 mL by mouth twice daily. famotidine (PEPCID) 40 mg tablet Take 1 tablet by mouth once daily as needed. amitriptyline (ELAVIL) 100 mg tablet Take 1 tablet by mouth daily at bedtime. doxycycline (VIBRA-TABS) 100 mg tablet MUCUS RELIEF ER 600 mg 12 hr tablet Take 1,200 mg by mouth twice daily. lansoprazole (PREVACID) 30 mg capsule Take 1 capsule by mouth twice daily. Take on empty stomach at least 30 minutes before eating. montelukast (SINGULAIR) 10 mg tablet Take 1 tablet by mouth daily at bedtime. fluticasone-umeclidin- vilanter (TRELEGY ELLIPTA) 200-62.5-25 mcg inhalation powder Inhale as instructed. zolpidem (AMBIEN) 5 mg tablet Take 1 tablet by mouth at bedtime as needed for sedation for up to 30 days. albuterol HFA (VENTOLIN HFA) 90 mcg/actuation inhaler Inhale 2 Puffs as instructed every 4 hours as needed for wheezing/shortness of breath. L. acidophilus-L. rhamnosus 15 billion cell cap Take 1 capsule by mouth once daily. FLORAJEN WOMEN. If on antibiotic, take at least 1-2 hours before or after antibiotic. KEEP REFRIGERATED ergocalciferol 50,000 unit capsule (VITAMIN D2, DRISDOL) Take 1 capsule by mouth one time a week. albuterol (PROVENTIL) 2.5 mg /3 mL (more content not included)... Normal [facility] COLONOSCOPY DIAGNOSTICon [facility] Absolute lymphocyte countOrd ered By: Dr. Ruiz on 12-13-2022 Lymphocytes Auto (Unsp spec) [#/Vol] 2.33 10*3/uL 0.83-4.51 [facility] Alternaria alternata IgE ser umOrdered By: Dr. Ruiz on 12-13-2022 A. alternata IgE Qn (S) 0.15 kU/L Class 0/I [facility] Basophil percentageOrdered B y: Dr. Ruiz on 12-13-2022 Basophils/100 WBC (Bld) 0.6 % 0-1 [facility] Eosinophils/100 WBC (Bld) 4.9 % 0-5 [facility] Neutrophils (Bld) [#/Vol] 5.8 10*3/uL 2.0-7.7 [facility] Neutrophils/100 WBC (Bld) 60.4 % 47-70 [facility] WBC (Bld) [#/Vol] 9.6 10*3/uL 4.4-11.0 [facility] Blood erythrocytes count (nu mber/volume)Ordered By: Dr. Ruiz on 12-13-2022 RBC (Bld) [#/Vol] 4.56 10*6/uL 4.2-5.4 [facility] Blood hemoglobin measurement (mass/volume)Ordered By: Dr. Ruiz on 12-13-2022 Hemoglobin (Bld) [Mass/Vol] 12.9 g/dL 12.0-15.0 [facility] Blood lymphocytes/100 leukoc ytesOrdered By: Dr. Ruiz on 12-13-2022 Lymphocytes/100 WBC (Bld) 24.3 % 19-41 [facility] Blood monocytes/100 leukocyt esOrdered By: Dr. Ruiz on 12-13-2022 Monocytes/100 WBC (Bld) 9.4 % 0-10 [facility] Blood platelet mean volumeOr dered By: Dr. Ruiz on 12-13-2022 Platelet mean volume (Bld) [Entitic vol] 9.9 fL 6.2-12.0 [facility] Determination of erythrocyte mean corpuscular volume (MCV)Ordered By: Dr. Ruiz on 12-13-2022 MCV (RBC) [Entitic vol] 87.5 fL 81-99 [facility] Hematocrit Auto (Bld) [Volum e fraction]Ordered By: Dr. Ruiz on 12-13-2022 Hematocrit (Bld) [Volume fraction] 39.9 % 37-47 [facility] Laboratory - Hematology and Cell countsOrdered By: Dr. Ruiz on 12-13-2022 Erythrocyte distribution width (RBC) [Entitic vol] 47.1 fL 35.1-43.9 [facility] Erythrocyte distribution width (RBC) [Ratio] 14.7 % 11.6-14.6 [facility] Immature granulocytes/100 WBC (Bld) 0.400 % 0.0-0.9 [facility] Comment on above: IG% - Immature Granu locytes (promyelocytes, myelocytes and metamyelocytes) > 1% indicates that a LEFT SHIFT is Present. MCH (RBC) [Entitic mass] 28.3 pg 27.0-32.0 [facility] Nucleated RBC/100 WBC (Bld) [Ratio] 0 % 0-5 [facility] MCHC Auto (RBC) [Mass/Vol]Or dered By: Dr. Ruiz on 12-13-2022 MCHC (RBC) [Mass/Vol] 32.3 g/dL 32-36 [facility] No Panel InformationOrdered By: Dr. Ruiz on 12-13-2022 Cat Hair Allergen <0.10 kU/L Class 0 [facility] Common Ragweed (Short) Allergen 0.12 kU/L Class 0/I [facility] Immunoglobulin E 20 IU/mL 6-495 [facility] Comment on above: Performed at: [place] [id number] Director: Bonnie Sawyer MD, Phone: [phone] Maple (Barren) Allergen IgE Ab <0.10 kU/L [facility] 0 [facility] Mouse Urine Allergen IgE Antibody <0.10 kU/L [facility] 0 [facility] Comment on above: Performed at: [facility] [id number] Director: Bonnie Sawyer MD, Phone: [phone] RAST Comment Comment . [facility] Comment on above: Levels of Specific I gE Class Description of Class ----- < 0.10 0 Negative 0.10 - 0.31 0/I Equivocal/Low 0.32 - 0.55 I Low 0.56 - 1.40 II Moderate 1.41 - 3.90 III High 3.91 - 19.00 IV Very High 19.01 - 100.00 V Very High >100.00 Very High [place] Tree Allergen <0.10 kU/L Class 0 [facility] Platelets bldOrdered By: Dr. Ruiz on 12-13-2022 Platelets (Bld) [#/Vol] 434 10*3/uL 150-450 [facility] Rough pigweed specific IgE a ntibody assayOrdered By: Dr. Ruiz on 12-13-2022 Rough Pigweed IgE Qn (S) <0.10 kU/L Class 0 [facility] Serum Malian sycamore IgE antibody assay (units/volume)Ordered By: Dr. Ruiz on 12-13-2022 Malian Sanford IgE Qn (S) <0.10 kU/L Class 0 [facility] Serum Aspergillus flavus ant ibody detection by immunodiffusionOrdered By: Dr. Ruiz on 12-13-2022 A. flavus Ab Immune diff Ql (S) Negative Neg:<1:1 [facility] Serum Aspergillus fumigatus IgE antibody assay (units/volume)Ordered By: Dr. Ruiz on 12-13-2022 A. fumigatus IgE Qn (S) <0.10 kU/L Class 0 [facility] Serum Aspergillus fumigatus antibody detection by immunodiffusionOrdered By: Dr. Ruiz on 12-13-2022 A. fumigatus Ab Immune diff Ql (S) Negative Neg:<1:1 [facility] Serum Aspergillus niger anti body detection by immunodiffusionOrdered By: Dr. Ruiz on 12-13-2022 A. niger Ab Immune diff Ql (S) Negative Neg:<1:1 [facility] Serum Bermuda grass IgE anti body assay (units/volume)Ordered By: Dr. Ruiz on 12-13-2022 Bermuda grass IgE Qn (S) 0.52 kU/L Class I [facility] Serum Cladosporium herbarum IgE antibody assay (units/volume)Ordered By: Dr. Ruiz on 12-13-2022 C. herbarum IgE Qn (S) <0.10 kU/L Class 0 [facility] Serum Dermatophagoides farin ae specific IgE antibody assay (units/volume)Ordered By: Dr. Ruiz on 12-13-2022 Malian house dust mite IgE Qn (S) <0.10 kU/L Class 0 [facility] Serum house dust mi te IgE antibody assay (units/volume)Ordered By: Dr. Ruiz on 12-13-2022 house dust mite IgE Qn (S) <0.10 kU/L Class 0 [facility] Serum Penicillium notatum Ig E antibody assay (units/volume)Ordered By: Dr. Ruiz on 12-13-2022 P. notatum IgE Qn (S) <0.10 kU/L Class 0 [facility] Serum Periplaneta americana IgE antibody assay (units/volume)Ordered By: Dr. Ruiz on 12-13-2022 Malian Cockroach IgE Qn (S) <0.10 kU/L Class 0 [facility] Serum Paraguayan thistle specif ic IgE antibody assayOrdered By: Dr. Ruiz on 12-13-2022 Saltwort IgE Qn (S) <0.10 kU/L Class 0 [facility] Serum birch specific IgE ant ibody assayOrdered By: Dr. Ruiz on 12-13-2022 Silver Birch IgE Qn (S) <0.10 kU/L [facility] Serum black walnut IgE antib rita assay (units/volume)Ordered By: Dr. Ruiz on 12-13-2022 Black [place] IgE Qn (S) <0.10 kU/L Class [facility] Serum cottonwood IgE antibod y assay (units/volume)Ordered By: Dr. Ruiz on 12-13-2022 Archbold IgE Qn (S) <0.10 kU/L Class 0 [facility] Serum dog epithelium IgE ant ibody assay (units/volume)Ordered By: Dr. Ruiz on 12-13-2022 Dog epithelium IgE Qn (S) <0.10 kU/L Class 0 [facility] Serum mountain cedar specifi c IgE antibody assayOrdered By: Dr. Ruiz on 12-13-2022 Mountain Juniper IgE Qn (S) <0.10 kU/L Class 0 [facility] Serum pecan or hickory nut I gE antibody assay (units/volume)Ordered By: Dr. Ruiz on 12-13-2022 Pecan or [place] Nut IgE Qn (S) <0.10 kU/L Class 0 [facility] Serum sheep sorrel IgE antib rita assay (units/volume)Ordered By: Dr. Ruiz on 12-13-2022 Sheep [place] IgE Qn (S) <0.10 kU/L Class 0 [facility] Serum juan IgE antibody a ssay (units/volume)Ordered By: Dr. Ruiz on 12-13-2022 Juan IgE Qn (S) 1.75 kU/L Class III [facility] Serum white gt IgE antibody assay (units/volume)Ordered By: Dr. Ruiz on 12-13-2022 White Gt IgE Qn (S) <0.10 kU/L Class 0 [facility] Serum white elm IgE antibody assay (units/volume)Ordered By: Dr. Ruiz on 12-13-2022 White Elm IgE Qn (S) <0.10 kU/L Class 0 [facility] Serum white mulberry IgE ant ibody assay (units/volume)Ordered By: Dr. Ruiz on 12-13-2022 White mulberry IgE Qn (S) <0.10 kU/L Class 0 [facility] CT ABD/PEL W IVCONon 023 [facility] CBC W Auto Differential pane l (Bld)on 11-22-2022 Basophils (Bld) [#/Vol] 0.06 10*3/uL <0.11 k/uL [facility] Basophils/100 WBC (Bld) 0.6 % [facility] Differential cell count method Nom (Bld) Auto [facility] Eosinophils (Bld) [#/Vol] 0.35 10*3/uL <0.46 k/uL [facility] Eosinophils/100 WBC (Bld) 3.4 % [facility] Erythrocyte distribution width (RBC) [Ratio] 14.9 % 11.5 - 15.0 % [facility] Hematocrit (Bld) [Volume fraction] 41.8 % 36.0 - 46.0 % [facility] Hemoglobin (Bld) [Mass/Vol] 13.3 g/dL 11.5 - 15.5 g/dL [facility] Immature granulocytes (Bld) [#/Vol] 0.07 10*3/uL <0.10 k/uL [facility] Immature granulocytes/100 WBC (Bld) 0.7 % [facility] Lymphocytes (Bld) [#/Vol] 2.64 10*3/uL 1.00 - 4.00 k/uL [facility] Lymphocytes/100 WBC (Bld) 26.0 % [facility] MCH (RBC) [Entitic mass] 28.4 pg 26. 0 - 34.0 pg [facility] MCHC (RBC) [Mass/Vol] 31.8 g/dL 30.5 - 36.0 g/dL [facility] MCV (RBC) [Entitic vol] 89.3 fL 80.0 - 100.0 fL [facility] Monocytes (Bld) [#/Vol] 0.87 10*3/uL High <0.87 k/uL [facility] Monocytes/100 WBC (Bld) 8.6 % [facility] Neutrophils (Bld) [#/Vol] 6.18 10*3/uL 1.45 - 7.50 k/uL [facility] Neutrophils/100 WBC (Bld) 60.7 % [facility] Nucleated RBC (Bld) [#/Vol] <0.01 k/uL [facility] Nucleated RBC/100 WBC (Bld) [Ratio] 0.0 /100 WBC [facility] Platelet mean volume (Bld) [Entitic vol] 10.7 fL 9.0 - 12.7 fL [facility] Platelets (Bld) [#/Vol] 381 10*3/uL 150 - 400 k/uL [facility] RBC (Bld) [#/Vol] 4.68 10*6/uL 3.90 - 5.2 0 m/uL [facility] WBC (Bld) [#/Vol] 10.17 10*3/uL 3.70 - 11.00 k/uL [facility] XR ESOPHAGRAMon 11-15-2022 XR ESOPHAGRAM * * *Final Report* * * DATE OF EXAM: Nov 15 2022 2:01PM [id number] [id number] - XR ESOPHAGRAM / PROCEDURE REASON: Dysphagia, unspecified type * * * * Physician Interpretation * * * * EXAM TITLE: ESOPHAGRAM DATE: November 15, 2022 CLINICAL INDICATION/HISTORY: Dysphagia COMPARISON: None. TECHNIQUE: Air-contrast esophagram was performed by Shayne Perez RPA. A total of 83 images are presented for my interpretation. 42 seconds of fluoroscopy time was utilized. Oral contrast was administered CINE AP and lateral images of the upper esophagus were obtained. There are multiple spot fluoroscopic images of the esophagus which were obtained with the patient in the upright and DYSON position. FINDINGS: No evidence of aspiration. The esophagus has a smooth contour with no evidence of mass, diverticulum or stricture. Normal primary and secondary peristaltic waves were noted. There is a small hiatal hernia. A 13 mm barium tablet was administered and passed rapidly into the stomach. IMPRESSION: Small hiatal hernia. Certified Orthotic Fitter: [facility] Transcribe Date/Time: Nov 15 2022 3:45P Dictated by : WILLIAM ARGUETA MD This examination was interpreted and the report reviewed and electronically signed by: WILLIAM ARGUETA MD on Nov 15 2022 3:49PM EST [id number] Normal [facility] XR ABDOMEN 1V SUPINEon 10-26 [facility] UA DIP, URINE (POC)on 2022 BILIRUBIN UA (POCT) Negative Negative [facility] CLARITY UA (POCT) Clear [facility] COLOR UA (POCT) Yellow [facility] GLUCOSE UA (POCT) Negative Negative mg/dL [facility] HEMOGLOBIN/BLOOD UA (POCT) Negative Negative [facility] KETONE UA (POCT) Negative Negative mg/dL [facility] LEUKOCYTES UA (POCT) Negative Negative [facility] NITRITE UA (POCT) Negative Negative [facility] PH UA (POCT) 6.5 4.5 - 8.0 [facility] Protein Ql (U) Negative Negative mg/dL [facility] SPECIFIC GRAVITY UA (POCT) 1.010 1.005 - 1.030 [facility] UROBILINOGEN UA (POCT) 0.2 E.U./dL Aniyah l E.U./dL [facility] ANES POSTPROC EVALon 023 ANES POSTPROC EVAL HNO ID: [id number] Author: Mejia Victor MD Service: Anesthesiology Author Type: Physician Type: Anesthesia Postprocedure Evaluation Filed: 09/12/2022 2:12 PM Note Text: POST ANESTHESIA EVALUATION NOTE : 1970 Procedure Summary Date: 09/12/22 Room / Location: [facility] Anesthesia Start: 1332 Anesthesia Stop: 1400 Procedure: EGD DIAGNOSTIC Diagnosis: Chronic Helicobacter pylori gastritis Scheduled Providers: Charles Riggs MD Responsible Provider: Mejia Victor MD Anesthesia Type: MAC ASA Status: 3 Anesthesia Type: MAC Last Vitals Vitals Value Taken Time BP 95/64 09/12/22 1400 Temp 36.6 ?C (97.8 ?F) 09/12/22 1400 Pulse 93 09/12/22 1400 Resp 24 09/12/22 1400 SpO2 94 % 09/12/22 1400 Post Anesthesia Patient Status Patient Evaluation: bedside. Pulmonary Status: breathing comfortably on supplemental oxygen Cardiovascular Status: stable. Intraoperative Events: no significant anesthesia events Recommendation: continue current plan of care. Anesthesia Observations No Documentation SIGNATURE: Mejia Victor MD PATIENT NAME: Jane Steinberg DATE: September 12, 2022 TIME: 2:11 PM CSN: [id number] Normal [facility] ANES PRE-OPon 09-12-2022 ANES PRE-OP HNO ID: [id number] Author: Mejia Victor MD Service: Anesthesiology Author Type: Physician Type: Anesthesia Preprocedure Evaluation Filed: 09/12/2022 1:57 PM Note Text: ANESTHESIOLOGY DAY OF SURGERY NOTE : 1970 Procedure Information Anesthesia Start Date/Time: 09/12/221332 Scheduled providers: Charles Riggs MD Procedure: EGD DIAGNOSTIC Location: [facility] Estimated body mass index is 23.23 kg/m? (pended) as calculated from the following: Height as of 08/16/22: 157.5 cm (5' 2). Weight as of 08/17/22: (P) 57.6 kg (127 lb). Most recent hematocrit and potassium results: Hematocrit 44.5 02/27/2022 Potassium 4.0 02/27/2022 Relevant Problems GI (+) GERD without esophagitis NEURO-PSYCH (+) Intractable chronic cluster headache PULMONARY (+) Asthma (+) Centrilobular emphysema (HCC) (+) Chronic obstructive pulmonary disease (HCC) (+) Community acquired pneumonia I - PHYSICAL EVALUATION AIRWAY Patient intubated: No. Tracheostomy tube not present Mallampati: III. TM distance: >3 FB. Neck ROM: full ROM without neurological symptoms. Mouth opening: adequate. Short neck: no. Thick neck: no DENTAL Normal dental observations. Dental findings: teeth intact. II - ANESTHESIA PLAN ASA Score: 3 Anesthetic Plan: MAC NPO Status: adequate Beta Wayne Administration of chronic beta wayne medication not planned. Reasons for not administering beta wayne perioperatively: other Monitoring Plan Monitoring plan: standard ASA. Post Procedure Analgesic Plan Postoperative analgesic plan: parenteral or oral opioids and per surgical service. Informed Consent Anesthetic risks, benefits, alternatives, personnel and consent discussed: yes. Patient / Responsible Libertarian agrees to proceed: yes Patient / Surrogate agrees to blood products: blood products not planned Vitals Value Taken Time BP 121/79 09/12/22 1257 Pulse 91 09/12/22 1317 Resp 18 09/12/22 1317 Temp 36.4 ?C (97.5 ?F) 09/12/22 1257 SpO2 100 % 09/12/22 1317 Outpatient Medications as of 09/12/2022 Medication Sig - aspirin, enteric coated (ASPIR-81) 81 mg EC tablet Take 1 tablet by mouth once daily. - doxycycline (VIBRA-TABS) 100 mg tablet - MUCUS RELIEF ER 600 mg 12 hr tablet Take 1,200 mg by mouth twice daily. - lansoprazole (PREVACID) 30 mg capsule Take 1 capsule by mouth twice daily. Take on empty stomach at least 30 minutes before eating. - amitriptyline (ELAVIL) 100 mg tablet Take 1 tablet by mouth daily at bedtime. - montelukast (SINGULAIR) 10 mg tablet Take 1 tablet by mouth daily at bedtime. - ibuprofen (MOTRIN) 800 mg tablet Take 1 tablet by mouth every 8 hours as needed for pain. - fluticasone-umeclidin- vilanter (TRELEGY ELLIPTA) 200-62.5-25 mcg inhalation powder Inhale as instructed. - albuterol HFA (VENTOLIN HFA) 90 mcg/actuation inhaler Inhale 2 Puffs as instructed every 4 hours as needed for wheezing/shortness of breath. - L. acidophilus-L. rhamnosus 15 billion cell cap Take 1 capsule by mouth once daily. FLORAJEN WOMEN. If on antibiotic, take at least 1-2 hours before or after antibiotic. KEEP REFRIGERATED - ergocalciferol 50,000 unit capsule (VITAMIN D2, DRISDOL) Take 1 capsule by mouth one time a week. - albuterol (PROVENTIL) 2.5 mg /3 mL (0.083 %) nebulizer solution Use 3 mL via nebulizer every 6 hours as needed. - ipratropium-albuterol (DUONEB) 0.5 mg-3 mg(2.5 mg base)/3 mL nebu Inhale 3 mL as instructed every 4 hours as needed. - loratadine (CLARITIN) 10 mg tablet Take 1 tablet by mouth once daily. - fluticasone (FLONASE) 50 mcg/actuation nasal spray Use 2 Sprays in each nostril once daily. Rinse mouth after use. - promethazine (PHENERGAN) 25 mg tablet Take 1 tablet by mouth every 8 hours as needed (for nausea). - zolpidem (AMBIEN) 5 mg tablet Take 1 tablet by mouth at bedtime as needed for sedation for up to 30 days. - PHENYLephrine-cocoa butter (PREPARATION H,PE,CB,) 0.25-88.44 % supp 1 Suppository by RECTAL route once daily. (Patient taking differently: 1 Suppository by RECTAL route as needed.) - COMPACT SPACE CHAMBER as directed. - PULSE OXIMETER CONTEC 1 Each as needed. - Comp Stocking,Knee,Regular, Med misc 2 Each once daily. Facility-Administered Medications as of 09/12/2022 Medication Dose Route Frequency - lidocaine 10 mg/mL (1 %) 1-2 mg injection (XYLOCAINE) 0.1-0.2 mL INTRADERMAL PRN - lactated ringers iv infusion 30 mL/hr INTRAVENOUS CONTINUOUS - [COMPLETED] ipratropium-albuterol 3 mL nebulizer solution (DUONEB) 3 mL INHALATION ONCE - lidocaine (PF) 20 mg/mL (2 %) injection (XYLOCAINE) INTRAVENOUS PRN - propofol injection (DIPRIVAN) INTRAVENOUS PRN - perflutren lipid microspheres 1.3 mL in NaCl (PF) 0.9% 10 mL injection (DEFINITY) INTRAVENOUS DIRECTED PRN - sodium chloride 0.9 % (flush) 10 mL (BD POSIFLUSH) 10 mL INTRAVENOUS DIRECTED PRN I have interviewed and examined the patient. I have reviewed the medical record an (more content not included)... Normal [facility] OPERATIVE NOon 09-12-2022 OPERATIVE NO HNO ID: [id number] Author: Charles Riggs MD Service: Gastroenterology Author Type: Physician Type: Operative Report Filed: 09/12/2022 2:28 PM Note Text: OPERATIVE/PROCEDURE REPORT LOG ID: [id number] Surgery/Procedure Date: Incision/Procedure Start Time: 1:50 PM Incision Close/Procedure End Time: 1:52 PM Surgeon(s)/Procedurali st(s) and Back End Web Developer(s): Charles Riggs MD No Additional Staff Procedure(s): Esophagogastroduodenos copy (EGD) with biopsy Anesthesia: Monitored anesthesia care (MAC) Brief History: 51/F with H pylori infection for repeat upper endoscopy Procedure Details: The patient was placed in the left lateral decubitus position. A bite block was placed and medications administered as above. The Olympus gastroscope was used to intubate the oropharynx and esophagus with ease. Esophagus- No strictures; mucosa unremarkable; Diaphragmatic indentation at 38 cm, GE junction at 38 cm and Squamocolumnar junction at 38 cm from incisors. Stomach- Cardia- No masses Body- normal Antrum- normal Fundus (during retroflexion)- normal Duodenum- Bulb- normal; Second part- normal The scope was then withdrawn and the patient tolerated the procedure well. Pre-Op/Pre-Procedure Diagnosis: H pylori infection S/P antibiotic therapy with persistent infection Post-Op/Post-Procedure Diagnosis: Normal gastroscopy. Biopsies taken to rule out H. Pylori. Specimens: See above EBL: None Complications: None Recommendations: Continue current medications Follow up pathology Follow up in GI clinic I/primary surgeon/proceduralist performed the procedure with assistance. Charles Riggs MD SIGNATURE: Charles Riggs MD PATIENT NAME: Jane Steinberg DATE: September 12, 2022 TIME: 2:26 PM PAGER/CONTACT #: [phone] [facility] SURGICAL PATHOLOGYon 023 CASE REPORT Normal [facility] Comment on above: Order Comment: Speci men Type: TISSUE SPECIMEN Ordering Facility: [facility] Address: [address] [place] [address] Result Comment: Surg [facility] Pathology Report Case: [id number] Authorizing Provider: Charles Riggs MD Collected: 09/12/2022 01:53 PM Ordering Location: [facility] Received: 09/13/2022 11:16 AM Pathologist: Aydin Banerjee MD Specimen: STOMACH BIOPSY Performed By: #### S #### [facility] CLIA [id number] [address] CLINICAL HISTORY History of Helicobacter pylori gastritis Normal [facility] Comment on above: Order Comment: Speci men Type: TISSUE SPECIMEN Ordering Facility: [facility] Address: [address] [place] [address] Performed By: #### S #### [facility] CLIA [id number] [address] [place] [address] DIAGNOSIS COMMENT Normal [facility] Comment on above: Order Comment: Speci men Type: TISSUE SPECIMEN Ordering Facility: [facility] Address: [address] [place] [address] Result Comment: Shay brandt Developed Test (LDT) Disclaimer: Performance characteristics of immunohistochemical, immunofluorescent and chromogenic in-situ hybridization tests have been determined by the performing laboratory within [facility]???s [facility] [place] ([facility], [facility], [facility], [facility], [facility], or [facility]) in a manner consistent with CLIA requirements. One or more of these tests have not been cleared or approved by the FDA. [facility] is regulated under CLIA as qualified to perform high-complexity testing. These tests are used for clinical purposes. They should not be regarded as investigational or for research. Positive and negative controls stain appropriately. Performed By: #### S #### [facility] CLIA [id number] [address] [place] [address] FINAL DIAGNOSIS Normal [facility] Comment on above: Order Comment: Speci men Type: TISSUE SPECIMEN Ordering Facility: [facility] Address: [address] [address] Result Comment: A. S tomach, biopsy: - Mild chronic gastritis. Immunohistochemical stain for Helicobacter pylori is negative for organisms. Performed By: #### S #### [facility] CLIA [id number] [address] [place] [address] FINAL PERFORMING LAB Normal [facility] Comment on above: Order Comment: Speci men Type: TISSUE SPECIMEN Ordering Facility: [facility] Address: [address] [address] Result Comment: Diag nostic interpretation performed at [facility], [address] [place] [address] CLIA# [id number] [employer] Sh[employer]: Aydin Banerjee M.D. Performed By: #### S #### [facility] CLIA [id number] [address] [place] [address] GROSS DESCRIPTION Normal [facility] Comment on above: Order Comment: Speci men Type: TISSUE SPECIMEN Ordering Facility: [facility] Address: [address] [place] [address] Result Comment: Frank. Chava JOY BIOPSY Received in formalin labeled stomach biopsy are multiple pieces of lewis, soft tissue aggregating to 1.5 x 0.2 x 0.2 cm. Totally submitted in one cassette. Gross examination performed at [facility], [address] [place] [address] CLIA# [id number] RSA September 13, 2022 1:48 PM Performed By: #### S #### [facility] CLIA [id number] [address] [place] [address] XR Chest PA and Lateralon IMPRESSION: No acute radiographic abnormality. Certified Orthotic Fitter: [facility] Transcribe Date/Time: Aug 10 2022 3:19P Dictated by : GENESIS HERNANDEZ MD This examination was interpreted and the report reviewed and electronically signed by: GENESIS HERNANDEZ MD on Aug 10 2022 3:20PM [facility] DIVISION OF RADIOLOGY * * *Final Report* * * DATE OF EXAM: Aug 10 2022 8:33AM WOX [id number] - XR CHEST 2V FRONTAL/LAT / PROCEDURE REASON: multiple diagnoses * * * * Physician Interpretation * * * * EXAMINATION: CHEST RADIOGRAPH (2 VIEW FRONTAL & LATERAL) CLINICAL HISTORY: COPD with exacerbation (HCC) Wheezing MQ: XC2_6 EXAM DATE/TIME: 08/10/2022 8:33 AM COMPARISON: Chest x-ray on 06/07/2022 RESULT: Lines, tubes, and devices: None. Lungs and pleura: No consolidation. No lung mass. No pleural effusion. No pneumothorax. Cardiomediastinal silhouette: Normal cardiomediastinal silhouette. Bones and soft tissues: Unremarkable. DIVISION OF RADIOLOGY Provider, [facility] - 08/10/2022 * * *Final Report* * * DATE OF EXAM: Aug 10 2022 8:33AM WOX [id number] - XR CHEST 2V FRONTAL/LAT / PROCEDURE REASON: multiple diagnoses * * * * Physician Interpretation * * * * EXAMINATION: CHEST RADIOGRAPH (2 VIEW FRONTAL & LATERAL) CLINICAL HISTORY: COPD with exacerbation (HCC) Wheezing MQ: XC2_6 EXAM DATE/TIME: 08/10/2022 8:33 AM COMPARISON: Chest x-ray on 06/07/2022 RESULT: Lines, tubes, and devices: None. Lungs and pleura: No consolidation. No lung mass. No pleural effusion. No pneumothorax. Cardiomediastinal silhouette: Normal cardiomediastinal silhouette. Bones and soft tissues: Unremarkable. IMPRESSION IMPRESSION: No acute radiographic abnormality. Certified Orthotic Fitter: [facility] Transcribe Date/Time: Aug 10 2022 3:19P Dictated by : GENESIS HERNANDEZ MD This examination was interpreted and the report reviewed and electronically signed by: GENESIS HERNANDEZ MD on Aug 10 2022 3:20PM EST [facility] Radiology Study observation (narrative) [facility] XR Chest PA and LateralOrder ed By: [facility] Provider on 08-10-2022 [facility] XR CHEST 2V FRONTAL/LATon [facility] XR Chest PA and Lateralon IMPRESSION: No persistent or developing acute abnormality Certified Orthotic Fitter: GEENA Transcribe Date/Time: Jun 07 2022 4:21P Dictated by : CANDIE ROMERO MD This examination was interpreted and the report reviewed and electronically signed by: CANDIE ROMERO MD on Jun 07 2022 4:22PM [facility] DIVISION OF RADIOLOGY * * *Final Report* * * DATE OF EXAM: Jun 07 2022 4:09PM WOX 5291 - XR CHEST 2V FRONTAL/LAT / PROCEDURE REASON: multiple diagnoses * * * * Physician Interpretation * * * * EXAMINATION: CHEST RADIOGRAPH (2 VIEW FRONTAL & LATERAL) CLINICAL HISTORY: Chest pain, unspecified type Pneumonia due to infectious organism, unspecified laterality, unspecified part of lung MQ: XC2_6 EXAM DATE/TIME: 06/07/2022 4:09 PM COMPARISON: 05/31/2022 RESULT: Lines, tubes, and devices: None. Lungs and pleura: No consolidation. No lung mass. No pleural effusion. No pneumothorax. Cardiomediastinal silhouette: Normal cardiomediastinal silhouette. Bones and soft tissues: Unremarkable. DIVISION OF RADIOLOGY Provider, [facility] - 06/07/2022 * * *Final Report* * * DATE OF EXAM: Jun 07 2022 4:09PM WOX 5291 - XR CHEST 2V FRONTAL/LAT / PROCEDURE REASON: multiple diagnoses * * * * Physician Interpretation * * * * EXAMINATION: CHEST RADIOGRAPH (2 VIEW FRONTAL & LATERAL) CLINICAL HISTORY: Chest pain, unspecified type Pneumonia due to infectious organism, unspecified laterality, unspecified part of lung MQ: XC2_6 EXAM DATE/TIME: 06/07/2022 4:09 PM COMPARISON: 05/31/2022 RESULT: Lines, tubes, and devices: None. Lungs and pleura: No consolidation. No lung mass. No pleural effusion. No pneumothorax. Cardiomediastinal silhouette: Normal cardiomediastinal silhouette. Bones and soft tissues: Unremarkable. IMPRESSION IMPRESSION: No persistent or developing acute abnormality Certified Orthotic Fitter: GEENA Transcribe Date/Time: Jun 07 2022 4:21P Dictated by : CANDIE ROMERO MD This examination was interpreted and the report reviewed and electronically signed by: CANDIE ROMERO MD on Jun 07 2022 4:22PM [facility] Radiology Study observation (narrative) Sadia monge [facility] XR Chest PA and LateralOrder ed By: Ccf Provider on 06-07-2022 [facility] XR CHEST 2V FRONTAL/LATon [facility] XR Chest PA and Lateralon IMPRESSION: Mild hazy opacity in the left midlung zone, likely atelectasis versus pneumonia in the appropriate clinical setting. Follow-up to document resolution is advised. Certified Orthotic Fitter: GEENA Transcribe Date/Time: May 31 2022 1:55P Dictated by : KANWAL SANDRA MD This examination was interpreted and the report reviewed and electronically signed by: KANWAL SANDRA MD on May 31 2022 2:03PM [facility] DIVISION OF RADIOLOGY * * *Final Report* * * DATE OF EXAM: May 31 2022 1:48PM WOX 5291 - XR CHEST 2V FRONTAL/LAT / PROCEDURE REASON: multiple diagnoses * * * * Physician Interpretation * * * * EXAMINATION: CHEST RADIOGRAPH (2 VIEW FRONTAL & LATERAL) CLINICAL HISTORY: Wheezing COPD with exacerbation (HCC) MQ: XC2_6 EXAM DATE/TIME: 05/31/2022 1:48 PM COMPARISON: Chest x-ray dated November 17, 2021 RESULT: Lines, tubes, and devices: None. Lungs and pleura: Stable mild biapical pleural thickening Mild hazy opacity in the left midlung zone. No pleural effusion or pneumothorax. Cardiomediastinal silhouette: Normal cardiomediastinal silhouette. Bones and soft tissues: No acute abnormality. DIVISION OF RADIOLOGY [facility] * * *Final Report* * * DATE OF EXAM: May 31 2022 1:48PM WOX 5291 - XR CHEST 2V FRONTAL/LAT / PROCEDURE REASON: multiple diagnoses * * * * Physician Interpretation * * * * EXAMINATION: CHEST RADIOGRAPH (2 VIEW FRONTAL & LATERAL) CLINICAL HISTORY: Wheezing COPD with exacerbation (HCC) MQ: XC2_6 EXAM DATE/TIME: 05/31/2022 1:48 PM COMPARISON: Chest x-ray dated November 17, 2021 RESULT: Lines, tubes, and devices: None. Lungs and pleura: Stable mild biapical pleural thickening Mild hazy opacity in the left midlung zone. No pleural effusion or pneumothorax. Cardiomediastinal silhouette: Normal cardiomediastinal silhouette. Bones and soft tissues: No acute abnormality. IMPRESSION IMPRESSION: Mild hazy opacity in the left midlung zone, likely atelectasis versus pneumonia in the appropriate clinical setting. Follow-up to document resolution is advised. Certified Orthotic Fitter: GEENA Transcribe Date/Time: May 31 2022 1:55P Dictated by : KANWAL SANDRA MD This examination was interpreted and the report reviewed and electronically signed by: KANWAL SANDRA MD on May 31 2022 2:03PM EST [facility] Radiology Study observation (narrative) [facility] XR Chest PA and LateralOrder ed By: Ccf Provider on 05-31-2022 [facility] Absolute lymphocyte counton 11-28-2021 Lymphocytes Auto (Unsp spec) [#/Vol] 2.89 10*3/uL 0.83-4.51 [facility] Work Phone: Basophil percentageon 2021 Basophils/100 WBC (Bld) 0.5 % 0-1 [facility] Work Phone: [phone] Bilirubin [Mass/Vol] 0.20 mg/dL 0.20-1.00 [facility] Work Phone: [phone] Comment on above: For patients on eltr ombopag therapy, use of Dimension [place] TBIL is not recommended. Chloride [Moles/Vol] 106 mmol/L 98-107 [facility] Work Phone: [phone] Eosinophils/100 WBC (Bld) 2.5 % 0-5 [facility] Work Phone: [phone] Glucose [Mass/Vol] 97 mg/dL 74-106 [facility] Work Phone: [phone] Neutrophils (Bld) [#/Vol] 8.5 10*3/uL 2.0-7.7 [facility] Work Phone: Neutrophils/100 WBC (Bld) 67.3 % 47-70 [facility] Work Phone: [phone] Potassium [Moles/Vol] 3.8 mmol/L 3.5-5.1 [facility] Work Phone: Protein [Mass/Vol] 8.0 g/dL 6.4-8.2 [facility] Work Phone: Sodium [Moles/Vol] 139 mmol/L 136-145 [facility] Work Phone: WBC (Bld) [#/Vol] 12.6 10*3/uL 4.4-11.0 [facility]: Blood erythrocytes count (nu mber/volume)on 11-28-2021 RBC (Bld) [#/Vol] 5.03 10*6/uL 4.2-5.4 [facility] Work Phone: Blood hemoglobin measurement (mass/volume)on 11-28-2021 Hemoglobin (Bld) [Mass/Vol] 14.6 g/dL 12.0-15.0 [facility] Work Phone: Blood lymphocytes/100 leukoc yteson 11-28-2021 Lymphocytes/100 WBC (Bld) 23.0 % 19-41 [facility] Work Phone: Blood monocytes/100 leukocyt eson 11-28-2021 Monocytes/100 WBC (Bld) 5.5 % 0-10 [facility] Work Phone: Blood platelet mean volumeon 11-28-2021 Platelet mean volume (Bld) [Entitic vol] 10.8 fL 6.2-12.0 [facility] Work Phone: Determination of erythrocyte mean corpuscular volume (MCV)on 11-28-2021 MCV (RBC) [Entitic vol] 90.3 fL 81-99 [facility] Work Phone: Hematocrit Auto (Bld) [Volum e fraction]on 11-28-2021 Hematocrit (Bld) [Volume fraction] 45.4 % 37-47 [facility] Work Phone: Laboratory - Chemistry and C hemistry - challengeon 11-28-2021 ALP [Catalytic activity/Vol] 111 U/L 45-117 [facility] Work Phone: ALT [Catalytic activity/Vol] 39 U/L 13-56 [facility] Work Phone: CO2 [Moles/Vol] 28.0 mmol/L 21.0-32.0 [facility] Work Phone: Globulin (S) [Mass/Vol] 4.3 g/dL 2.2-4.2 [facility] Work Phone: Urea nitrogen/Creatinine [Mass ratio] 16.0 mg/mg 10-20 [facility] Work Phone: Laboratory - Hematology and Cell countson 11-28-2021 Erythrocyte distribution width (RBC) [Entitic vol] 48.0 fL 35.1-43.9 [facility] Work Phone: Erythrocyte distribution width (RBC) [Ratio] 14.5 % 11.6-14.6 [facility] Work Phone: Immature granulocytes/100 WBC (Bld) 1.200 % 0.0-0.9 [facility] Work Phone: Comment on above: IG% - Immature Granu locytes (promyelocytes, myelocytes and metamyelocytes) > 1% indicates that a LEFT SHIFT is Present. MCH (RBC) [Entitic mass] 29.0 pg 27.0-32.0 [facility] Work Phone: Nucleated RBC/100 WBC (Bld) [Ratio] 0 % 0-5 [facility] Work Phone: MCHC Auto (RBC) [Mass/Vol]on 11-28-2021 MCHC (RBC) [Mass/Vol] 32.2 g/dL 32-36 [facility] Work Phone: [phone] Panel Informationon 11-28 SARS-CoV-2 & FLU Antigen (Rapid) [facility] Work Phone: Estimated Creatinine Clearance Calc 53.43 ml/min [facility] Work Phone: Estimated GFR (MDRD) Amer 81 mL/min >60 [facility] Work Phone: Comment on above: GFR Calc Estimated GFR (MDRD) Non-Af Amer 67 mL/min >60 [facility] Work Phone: Comment on above: Non- GFR Calc Platelets bldon 11-28-2021 Platelets (Bld) [#/Vol] 399 10*3/uL 150-450 [facility] Work Phone: Serum or plasma albumin tea urement (mass/volume)on 11-28-2021 Albumin [Mass/Vol] 3.7 g/dL 3.2-5.0 [facility] Work Phone: Serum or plasma albumin/glob ulin mass ratioon 11-28-2021 Albumin/Globulin [Mass ratio] 0.9 {ratio} 0.9-2.4 [facility] Work Phone: Serum or plasma calcium tea urement (mass/volume)on 11-28-2021 Calcium [Mass/Vol] 9.1 mg/dL 8.5-10.1 [facility] Work Phone: Serum or plasma creatinine m easurement (mass/volume)on 11-28-2021 Creatinine [Mass/Vol] 0.94 mg/dL 0.55-1.02 [facility] Work Phone: Comment on above: The validity of the calculated GFR & GFRAA in patients over 70 years has not been determined. Clinical correlation is essential. Serum or plasma urea nitroge n measurement (mass/volume)on 11-28-2021 Urea nitrogen [Mass/Vol] 15 mg/dL 7-18 [facility] Work Phone: Thin prep Papanicolaou smear with manual screeningon 11-28-2021 Thin prep Papanicolaou smear with manual screening 16 U/L 15-37 [facility] Work Phone: Thin prep Papanicolaou smear with manual screening 5 5-15 [facility] Work Phone: DELTA SCREENINGon 11-18-2021 [facility] No Panel Informationon 11-17 Radiology Study observation (narrative) Sadia monge [facility] XR CHEST 2V FRONTAL/LATon [facility] XR Chest PA and Lateralon IMPRESSION: Stable chest. No acute radiographic abnormality. Certified Orthotic Fitter: PSCB Transcribe Date/Time: Nov 17 2021 2:05P Dictated by : VAN PALACIOS MD This examination was interpreted and the report reviewed and electronically signed by: VAN PALACIOS MD on Nov 17 2021 2:07PM EST ZZZ_DO_NOT_US E_DIVISION OF RADIOLOGY * * *Final Report* * * DATE OF EXAM: Nov 17 2021 1:59PM WOX 5291 - XR CHEST 2V FRONTAL/LAT / PROCEDURE REASON: multiple diagnoses * * * * Physician Interpretation * * * * EXAMINATION: CHEST RADIOGRAPH (2 VIEW FRONTAL & LATERAL) CLINICAL HISTORY: Wheezing. Shortness of breath. MQ: XC2_6 EXAM DATE/TIME: 11/17/2021 1:59 PM COMPARISON: Comparison is made to prior study dated 10/05/2021 and 24 Nov 2020 RESULT: Lines, tubes, and devices: None. Lungs and pleura: Chronic interstitial lung changes with biapical pleural thickening and scattered fibrotic scarring. There is no focal consolidation or acute pleural process. There is no vascular redistribution to suggest pulmonary edema. Cardiomediastinal silhouette: Normal cardiomediastinal silhouette. Bones and soft tissues: Unremarkable. [id number]_NOT_US E_DIVISION OF RADIOLOGY Provider, [facility] - 11/17/2021 * * *Final Report* * * DATE OF EXAM: Nov 17 2021 1:59PM WOX 5291 - XR CHEST 2V FRONTAL/LAT / PROCEDURE REASON: multiple diagnoses * * * * Physician Interpretation * * * * EXAMINATION: CHEST RADIOGRAPH (2 VIEW FRONTAL & LATERAL) CLINICAL HISTORY: Wheezing. Shortness of breath. MQ: XC2_6 EXAM DATE/TIME: 11/17/2021 1:59 PM COMPARISON: Comparison is made to prior study dated 10/05/2021 and 24 Nov 2020 RESULT: Lines, tubes, and devices: None. Lungs and pleura: Chronic interstitial lung changes with biapical pleural thickening and scattered fibrotic scarring. There is no focal consolidation or acute pleural process. There is no vascular redistribution to suggest pulmonary edema. Cardiomediastinal silhouette: Normal cardiomediastinal silhouette. Bones and soft tissues: Unremarkable. IMPRESSION IMPRESSION: Stable chest. No acute radiographic abnormality. Certified Orthotic Fitter: [facility] Transcribe Date/Time: Nov 17 2021 2:05P Dictated by : VAN PALACIOS MD This examination was interpreted and the report reviewed and electronically signed by: VAN PALACIOS MD on Nov 17 2021 2:07PM EST [facility] XR Chest PA and LateralOrder ed By: Cc Provider on 11-17-2021 [facility] XR Lumbar spine AP and Later elia 11-17-2021 IMPRESSION: Mild spondylosis, unchanged Certified Orthotic Fitter: [facility] Transcribe Date/Time: Nov 17 2021 12:40P Dictated by : MIKE SPEARS MD This examination was interpreted and the report reviewed and electronically signed by: MIKE SPEARS MD on Nov 17 2021 12:56PM EST ZZZ_DO_NOT_US E_DIVISION OF RADIOLOGY * * *Final Report* * * DATE OF EXAM: Nov 17 2021 12:33PM WOX 5229 - XR LUMBAR 2V AP/LAT / PROCEDURE REASON: lumbar pain * * * * Physician Interpretation * * * * PROCEDURE: Lumbar pain INDICATION: lumbar pain.acute low back pain, began after injuring right knee TECHNIQUE: XR LUMBAR 2V AP/LAT COMPARISON: 08/18/2021 FINDINGS: Mild levoscoliosis, unchanged. No fracture or subluxation. Minimal vertebral body spurring at all levels. Disc spaces are maintained. Sacroiliac joints are unremarkable. [id number]_NOT_US E_DIVISION OF RADIOLOGY Provider, Bonnie Ramirez - 11/17/2021 * * *Final Report* * * DATE OF EXAM: Nov 17 2021 12:33PM WOX 5229 - XR LUMBAR 2V AP/LAT / PROCEDURE REASON: lumbar pain * * * * Physician Interpretation * * * * PROCEDURE: Lumbar pain INDICATION: lumbar pain.acute low back pain, began after injuring right knee TECHNIQUE: XR LUMBAR 2V AP/LAT COMPARISON: 08/18/2021 FINDINGS: Mild levoscoliosis, unchanged. No fracture or subluxation. Minimal vertebral body spurring at all levels. Disc spaces are maintained. Sacroiliac joints are unremarkable. IMPRESSION IMPRESSION: Mild spondylosis, unchanged Certified Orthotic F[facility] Transcribe Date/Time: Nov 17 2021 12:40P Dictated by : MIKE SPEARS MD This examination was interpreted and the report reviewed and electronically signed by: MIKE SPEARS MD on Nov 17 2021 12:56PM EST [facility] XR Lumbar spine AP and Later alOrdered By: Ccf Provider on 11-17-2021 [facility] XR CHEST 2V FRONTAL/LATon [facility] XR Chest PA and Lateralon Addendum by Provider , [facility] [place] on 10/05/2021 12:21 PM EDT * * *Final Report* * * DATE OF EXAM: Oct 05 2021 12:08PM WOX 5291 - XR CHEST 2V FRONTAL/LAT / PROCEDURE REASON: Wheezing * * * * Physician Interpretation * * * * EXAMINATION: CHEST RADIOGRAPH (2 VIEW FRONTAL & LATERAL) CLINICAL HISTORY: Wheezing MQ: XC2_6 EXAM DATE/TIME: 10/05/2021 12:08 PM COMPARISON: 11/24/2020 RESULT: Lines, tubes, and devices: None. Lungs and pleura: No consolidation. No lung mass. No pleural effusion. No pneumothorax. Cardiomediastinal silhouette: Normal cardiomediastinal silhouette. Bones and soft tissues: Unremarkable. IMPRESSION: No acute radiographic abnormality. Certified Orthotic Fitter: PSCB Transcribe Date/Time: Oct 05 2021 12:18P Dictated by : CANDIE ROMERO MD This examination was interpreted and the report reviewed and electronically signed by: CANDIE ROMERO MD on Oct 05 2021 12:19PM [facility] Radiology Study observation (narrative) [facility] XR Chest PA and LateralOrder ed By: Ccf Provider on 10-05-2021 [facility] No Panel Informationon 08-18 Radiology Study observation (narrative) [facility] XR Lumbar spine 3 Viewson IMPRESSION: Lumbar spine mild degenerative changes. Certified Orthotic Fitter: GEENA Transcribe Date/Time: Aug 18 2021 1:40P Dictated by : GENESIS HERNANDEZ MD This examination was interpreted and the report reviewed and electronically signed by: GENESIS HERNANDEZ MD on Aug 18 2021 1:41PM [facility] DIVISION OF RADIOLOGY * * *Final Report* * * DATE OF EXAM: Aug 18 2021 1:20PM WOX 5228 - XR LUMBAR 3V AP/LAT/L5-S1 / PROCEDURE REASON: Fall, initial encounter * * * * Physician Interpretation * * * * EXAM TITLE: XR LUMBAR 3V AP/LAT/L5-S1 EXAM DATE/TIME: 08/18/2021 1:20 PM COMPARISON: None. CLINICAL INDICATION/HISTORY: Fall. TECHNIQUE: AP, lateral and cone down lateral views of the lumbar spine are presented. FINDINGS: There are five tyn-qge-jxmqjim lumbar vertebrae. No acute fracture or subluxations are noted. Mild left-sided curvature seen on AP view. The disc spaces are maintained. There is mild osteophyte formation. DIVISION OF RADIOLOGY Provider, [facility] - 08/18/2021 * * *Final Report* * * DATE OF EXAM: Aug 18 2021 1:20PM WOX 5228 - XR LUMBAR 3V AP/LAT/L5-S1 / PROCEDURE REASON: Fall, initial encounter * * * * Physician Interpretation * * * * EXAM TITLE: XR LUMBAR 3V AP/LAT/L5-S1 EXAM DATE/TIME: 08/18/2021 1:20 PM COMPARISON: None. CLINICAL INDICATION/HISTORY: Fall. TECHNIQUE: AP, lateral and cone down lateral views of the lumbar spine are presented. FINDINGS: There are five ywu-ian-[id number] lumbar vertebrae. No acute fracture or subluxations are noted. Mild left-sided curvature seen on AP view. The disc spaces are maintained. There is mild osteophyte formation. IMPRESSION IMPRESSION: Lumbar spine mild degenerative changes. Certified Orthotic Fitter: GEENA Transcribe Date/Time: Aug 18 2021 1:40P Dictated by : GENESIS HERNANDEZ MD This examination was interpreted and the report reviewed and electronically signed by: GENESIS HERNANDEZ MD on Aug 18 2021 1:41PM EST [facility] XR Pelvis and Hip - right AP and Lateral frogon 08-18-2021 IMPRESSION: Negative right hip x-ray and AP view pelvis. Certified Orthotic Fitter: GEENA Transcribe Date/Time: Aug 18 2021 1:43P Dictated by : GENESIS HERNANDEZ MD This examination was interpreted and the report reviewed and electronically signed by: GENESIS HERNANDEZ MD on Aug 18 2021 1:45PM [facility] DIVISION OF RADIOLOGY * * *Final Report* * * DATE OF EXAM: Aug 18 2021 1:20PM WOX 5352 - XR HIP 3V PELV+ AP/LAT RT / PROCEDURE REASON: Fall, initial encounter * * * * Physician Interpretation * * * * EXAM TITLE: XR HIP 3V PELV+ AP/LAT RT EXAM DATE/TIME: 08/18/2021 1:20 PM COMPARISON: None. CLINICAL INDICATION/HISTORY: Fall. TECHNIQUE: AP and frog lateral views of the right hip and AP view of the pelvis are presented. FINDINGS: No acute fractures or subluxations are noted in the right hip. The right hip joint space is maintained. The visualized pelvic bones are intact. The mineralization of the bones is normal. There is no significant soft tissue swelling. DIVISION OF RADIOLOGY Provider, [facility] - 08/18/2021 * * *Final Report* * * DATE OF EXAM: Aug 18 2021 1:20PM WOX 5352 - XR HIP 3V PELV+ AP/LAT RT / PROCEDURE REASON: Fall, initial encounter * * * * Physician Interpretation * * * * EXAM TITLE: XR HIP 3V PELV+ AP/LAT RT EXAM DATE/TIME: 08/18/2021 1:20 PM COMPARISON: None. CLINICAL INDICATION/HISTORY: Fall. TECHNIQUE: AP and frog lateral views of the right hip and AP view of the pelvis are presented. FINDINGS: No acute fractures or subluxations are noted in the right hip. The right hip joint space is maintained. The visualized pelvic bones are intact. The mineralization of the bones is normal. There is no significant soft tissue swelling. IMPRESSION IMPRESSION: Negative right hip x-ray and AP view pelvis. Certified Orthotic Fitter: [facility] Transcribe Date/Time: Aug 18 2021 1:43P Dictated by : GENESIS HERNANDEZ MD This examination was interpreted and the report reviewed and electronically signed by: GENESIS HERNANDEZ MD on Aug 18 2021 1:45PM EST [facility] XR Shoulder - right 3 Viewso n 08-18-2021 IMPRESSION: Findings are suggestive of degenerative changes of the acromioclavicular joint. No acute fracture seen. Certified Orthotic Fitter: [facility] Transcribe Date/Time: Aug 18 2021 1:41P Dictated by : GENESIS HERNANDEZ MD This examination was interpreted and the report reviewed and electronically signed by: GENESIS HERNANDEZ MD on Aug 18 2021 1:43PM [facility] DIVISION OF RADIOLOGY * * *Final Report* * * DATE OF EXAM: Aug 18 2021 1:20PM WOX 5253 - XR SHLDR >/=3V AP/RACHEL AP/OTHR RT / PROCEDURE REASON: Fall, initial encounter * * * * Physician Interpretation * * * * EXAM TITLE: XR SHLDR >/=3V AP/RACHEL AP/OTHR RT EXAM DATE/TIME: 08/18/2021 1:20 PM COMPARISON: None. CLINICAL INDICATION/HISTORY: Fall. TECHNIQUE: AP, true AP and axillary views of the right shoulder are presented FINDINGS: No acute fractures or subluxations are noted. Acromioclavicular joint space narrowing is demonstrated, with mild osteophyte formation. Normal appearance of the glenohumeral joint. The acromiohumeral interval is maintained. The mineralization of the bones is normal. There is no significant soft tissue swelling. DIVISION OF RADIOLOGY Provider, [facility] - 08/18/2021 * * *Final Report* * * DATE OF EXAM: Aug 18 2021 1:20PM WOX 5253 - XR SHLDR >/=3V AP/RACHEL AP/OTHR RT / PROCEDURE REASON: Fall, initial encounter * * * * Physician Interpretation * * * * EXAM TITLE: XR SHLDR >/=3V AP/RACHEL AP/OTHR RT EXAM DATE/TIME: 08/18/2021 1:20 PM COMPARISON: None. CLINICAL INDICATION/HISTORY: Fall. TECHNIQUE: AP, true AP and axillary views of the right shoulder are presented FINDINGS: No acute fractures or subluxations are noted. Acromioclavicular joint space narrowing is demonstrated, with mild osteophyte formation. Normal appearance of the glenohumeral joint. The acromiohumeral interval is maintained. The mineralization of the bones is normal. There is no significant soft tissue swelling. IMPRESSION IMPRESSION: Findings are suggestive of degenerative changes of the acromioclavicular joint. No acute fracture seen. Certified Orthotic Fitter: PSCB Transcribe Date/Time: Aug 18 2021 1:41P Dictated by : GENESIS HERNANDEZ MD This examination was interpreted and the report reviewed and electronically signed by: GENESIS HERNANDEZ MD on Aug 18 2021 1:43PM EST [facility] XR Shoulder - right 3 ViewsO rdered By: Ccf Provider on 08-18-2021 [facility] Absolute lymphocyte counton 08-09-2021 Lymphocytes Auto (Unsp spec) [#/Vol] 2.92 10*3/uL 0.83-4.51 [facility] Work Phone: Basophil percentageon 2021 Basophil percentage 0 SEEN /hpf [facility] Work Phone: Basophils/100 WBC (Bld) 0.5 % 0-1 [facility] Work Phone: Chloride [Moles/Vol] 107 mmol/L 98-107 [facility] Work Phone: Eosinophils/100 WBC (Bld) 2.4 % 0-5 [facility] Work Phone: Glucose [Mass/Vol] 86 mg/dL 74-106 [facility] Work Phone: Neutrophils (Bld) [#/Vol] 7.0 10*3/uL 2.0-7.7 [facility] Work Phone: Neutrophils/100 WBC (Bld) 62.4 % 47-70 [facility] Work Phone: Potassium [Moles/Vol] 3.8 mmol/L 3.5-5.1 [facility] Work Phone: Sodium [Moles/Vol] 140 mmol/L 136-145 [place] [facility] Work Phone: WBC (Bld) [#/Vol] 11.2 10*3/uL 4.4-11.0 [facility]: Bilirubin Test strip Ql (U)o n 08-09-2021 Bilirubin Ql (U) Negative Negative [facility] Work Phone: Blood erythrocytes count (nu mber/volume)on 08-09-2021 RBC (Bld) [#/Vol] 4.53 10*6/uL 4.2-5.4 [facility] Work Phone: Blood hemoglobin measurement (mass/volume)on 08-09-2021 Hemoglobin (Bld) [Mass/Vol] 13.3 g/dL 12.0-15.0 [facility] Work Phone: Blood lymphocytes/100 leukoc yteson 08-09-2021 Lymphocytes/100 WBC (Bld) 26.1 % 19-41 [facility] Work Phone: Blood monocytes/100 leukocyt eson 08-09-2021 Monocytes/100 WBC (Bld) 8.3 % 0-10 [facility] Work Phone: Blood platelet mean volumeon 08-09-2021 Platelet mean volume (Bld) [Entitic vol] 10.2 fL 6.2-12.0 [facility] Work Phone: Determination of erythrocyte mean corpuscular volume (MCV)on 08-09-2021 MCV (RBC) [Entitic vol] 88.1 fL 81-99 [facility] Work Phone: Hematocrit Auto (Bld) [Volum e fraction]on 08-09-2021 Hematocrit (Bld) [Volume fraction] 39.9 % 37-47 [facility] Work Phone: Ketones Test strip Ql (U)on 08-09-2021 Ketones Ql (U) Negative Negative [facility] Work Phone: Laboratory - Chemistry and C hemistry - challengeon 08-09-2021 CO2 [Moles/Vol] 31.0 mmol/L 21.0-32.0 [facility] Work Phone: Urea nitrogen/Creatinine [Mass ratio] 20.7 mg/mg 10-20 [facility] Work Phone: Laboratory - Hematology and Cell countson 08-09-2021 Erythrocyte distribution width (RBC) [Entitic vol] 45.7 fL 35.1-43.9 [facility] Work Phone: Erythrocyte distribution width (RBC) [Ratio] 14.2 % 11.6-14.6 [facility] Work Phone: Immature granulocytes/100 WBC (Bld) 0.300 % 0.0-0.9 [facility] Work Phone: Comment on above: IG% - Immature Granu locytes (promyelocytes, myelocytes and metamyelocytes) > 1% indicates that a LEFT SHIFT is Present. MCH (RBC) [Entitic mass] 29.4 pg 27.0-32.0 [facility] Work Phone: Nucleated RBC/100 WBC (Bld) [Ratio] 0 % 0-5 [facility] Work Phone: MCHC Auto (RBC) [Mass/Vol]on 08-09-2021 MCHC (RBC) [Mass/Vol] 33.3 g/dL 32-36 [facility] Work Phone: Mucus LM Ql (Urine sed)on Mucus Ql (Urine sed) 0 SEEN /hpf [facility] Work Phone: Nitrite Test strip Ql (U)on 08-09-2021 Nitrite Ql (U) Negative Negative [facility] Work Phone: No Panel Informationon 08-09 Estimated Creatinine Clearance Calc 57.73 ml/min [facility] Work Phone: Estimated GFR (MDRD) Amer 88 mL/min >60 [facility] Work Phone: Comment on above: GFR Calc Estimated GFR (MDRD) Non-Af Amer 73 mL/min >60 [facility] Work Phone: Comment on above: Non- GFR Calc Platelets bldon 08-09-2021 Platelets (Bld) [#/Vol] 312 10*3/uL 150-450 [facility] Work Phone: Protein Test strip Ql (U)on 08-09-2021 Protein Ql (U) Negative Negative [facility] Work Phone: Serum or plasma calcium tea urement (mass/volume)on 08-09-2021 Calcium [Mass/Vol] 8.7 mg/dL 8.5-10.1 [facility] Work Phone: Serum or plasma creatinine m easurement (mass/volume)on 08-09-2021 Creatinine [Mass/Vol] 0.87 mg/dL 0.55-1.02 [facility] Work Phone: Comment on above: The validity of the calculated GFR & GFRAA in patients over 70 years has not been determined. Clinical correlation is essential. Serum or plasma urea nitroge n measurement (mass/volume)on 08-09-2021 Urea nitrogen [Mass/Vol] 18 mg/dL 7-18 [facility] Work Phone: Squamous epithelial cells de tection in urine sediment by light microscopyon 08-09-2021 Epithelial cells.squamous LM Ql (Urine sed) 0-5 SEEN /hpf [facility] Work Phone: Thin prep Papanicolaou smear with manual screeningon 08-09-2021 Thin prep Papanicolaou smear with manual screening 2 5-15 [facility] Work Phone: Urine blood detectionon 02-0 RBC Ql (U) Negative Negative [facility] Work Phone: RBC Ql (U) 0 SEEN /hpf [facility] Work Phone: Urine clarityon 08-09-2021 Clarity (U) Clear Clear [facility] Work Phone: Urine color determinationon 08-09-2021 Color (U) Yellow Yellow [facility] Work Phone: Urine glucose detectionon Glucose Ql (U) Normal mg/dl Normal [facility] Work Phone: Urine leukocyte esterase det ection by dipstickon 08-09-2021 Leukocyte esterase Test strip Ql (U) Negative Negative [facility] Work Phone: Urine pHon 08-09-2021 pH (U) 7.0 [pH] [facility] Work Phone: Urine sediment bacteria coun t by microscopy (number/high power field)on 08-09-2021 Bacteria LM.HPF (Urine sed) [#/Area] RARE /hpf None Seen [facility] Work Phone: Urine specific gravity measu rementon 08-09-2021 Specific gravity (U) [Rel density] 1.010 [facility] Work Phone: Urobilinogen Auto test strip Ql (U)on 08-09-2021 Urobilinogen Ql (U) Normal mg/dl Normal [facility] Work Phone: XR Abdomen Supine and Uprigh ton 06-26-2021 IMPRESSION: Nonobstructive bowel gas pattern. Certified Orthotic Fitter: PSCPasha Transcribe Date/Time: Jun 26 2021 4:34P Dictated by : GENESIS HERNANDEZ MD This examination was interpreted and the report reviewed and electronically signed by: GENESIS HERNANDEZ MD on Jun 26 2021 4:35PM [facility] DIVISION OF RADIOLOGY * * *Final Report* * * DATE OF EXAM: Jun 25 2021 12:02PM WOX [id number] - XR ABDOMEN 1V SUPINE / PROCEDURE REASON: multiple diagnoses * * * * Physician Interpretation * * * * EXAM TITLE: XR ABDOMEN 1V SUPINE EXAM DATE/TIME: 06/25/2021 12:02 PM COMPARISON: None. CLINICAL INDICATION/HISTORY: Abdominal pain TECHNIQUE: AP views of the abdomen are presented. FINDINGS: No abnormally dilated bowel loops identified. No study is not tailored for evaluation of free air. There are phleboliths in the pelvis. The bony structures appear intact. DIVISION OF RADIOLOGY Provider, [facility] - 06/26/2021 * * *Final Report* * * DATE OF EXAM: Jun 25 2021 12:02PM WOX [id number] - XR ABDOMEN 1V SUPINE / PROCEDURE REASON: multiple diagnoses * * * * Physician Interpretation * * * * EXAM TITLE: XR ABDOMEN 1V SUPINE EXAM DATE/TIME: 06/25/2021 12:02 PM COMPARISON: None. CLINICAL INDICATION/HISTORY: Abdominal pain TECHNIQUE: AP views of the abdomen are presented. FINDINGS: No abnormally dilated bowel loops identified. No study is not tailored for evaluation of free air. There are phleboliths in the pelvis. The bony structures appear intact. IMPRESSION IMPRESSION: Nonobstructive bowel gas pattern. Certified Orthotic Fitter: cFares Transcribe Date/Time: Jun 26 2021 4:34P Dictated by : GENESIS HERNANDEZ MD This examination was interpreted and the report reviewed and electronically signed by: GENESIS HERNANDEZ MD on Jun 26 2021 4:35PM EST [facility] XR Abdomen Supine and Uprigh tOrdered By: Ccf Provider on 06-26-2021 [facility] XR Abdomen Supine and Uprigh ton 06-25-2021 Radiology Study observation (narrative) [facility] XR HIP DAVID 5V PEL+ AP/LAT EA HIPon 09-10-2020 XR HIP DAVID 5V PEL+ AP/LAT EA HIP Final Report DATE OF EXAM: Sep 10 2020 12:02PM GRX [id number] - XR HIP DAVID 5V PEL+ AP/LAT EA HIP / PROCEDURE REASON: Sciatica of right side Physician Interpretation EXAM TITLE: XR HIP DAVID 5V PEL+ AP/LAT EA HIP DATE: 09/10/2020 12:59 PM INDICATION: Chronic bilateral hip pain COMPARISON: None. FINDINGS: There is no fracture or dislocation. Joint spaces are maintained and the soft tissues are normal. IMPRESSION: Within normal limits. Certified Orthotic Fitter: cFares Transcribe Date/Time: Sep 10 2020 12:59P Dictated by : MK GOLDBERG MD This examination was interpreted and the report reviewed and electronically signed by: MK GOLDBERG MD on Sep 10 2020 1:00PM EST Normal [facility] XR CHEST 1V FRONTALon 2020 XR CHEST 1V FRONTAL Final Report DATE OF EXAM: Aug 25 2020 11:16AM GRX [id number] - XR CHEST 1V FRONTAL / PROCEDURE REASON: Chest pain or SOB, pleurisy or effusion suspected Physician Interpretation EXAMINATION: CHEST RADIOGRAPH (SINGLE VIEW AP OR PA) CLINICAL HISTORY: Chest pain MQ: XC1_5 Comparison: Chest radiograph 08/23/2020 RESULT: Lines, tubes, and devices: None. Lungs and pleura: No consolidation. No pneumothorax. No pleural effusion. Cardiomediastinal silhouette: Normal cardiomediastinal silhouette. Other: . IMPRESSION: No acute radiographic abnormality. Certified Orthotic Fitter: GEENA Transcribe Date/Time: Aug 25 2020 11:29A Dictated by : DEX IVORY MD This examination was interpreted and the report reviewed and electronically signed by: DEX IVORY MD on Aug 25 2020 11:30AM EST Normal [facility] XR CHEST 2V FRONTAL/LATon XR CHEST 2V FRONTAL/LAT Final Report DATE OF EXAM: Aug 23 2020 5:50PM GRX [id number] - XR CHEST 2V FRONTAL/LAT / PROCEDURE REASON: Shortness of breath Physician Interpretation EXAMINATION: CHEST RADIOGRAPH (2 VIEW FRONTAL & LATERAL) CLINICAL HISTORY: Shortness of breath, Wheezing MQ: XC2_6 EXAM DATE/TIME: 08/23/2020 5:50 PM COMPARISON: 05/12/2020 RESULT: Lines, tubes, and devices: None. Lungs and pleura: There are mild increased bronchovascular markings which may represent minimal pulmonary vascular congestion. Changes of bronchitis/viral pneumonia cannot be excluded. No consolidation. No lung mass. There is bilateral apical pleural thickening with no pleural effusion. No pneumothorax. Cardiomediastinal silhouette: Normal cardiomediastinal silhouette. Bones and soft tissues: Unremarkable. IMPRESSION: Nonspecific prominent bronchovascular markings which may be related to changes of bronchitis or early changes of viral pneumonia. Clinical correlation and follow-up exams are recommended. Certified Orthotic Fitter: GEENA Transcribe Date/Time: Aug 23 2020 5:53P Dictated by : RADHA PEREZ MD This examination was interpreted and the report reviewed and electronically signed by: RADHA PEREZ MD on Aug 23 2020 5:54PM EST Normal [facility] XR Chest PA and Lateralon IMPRESSION: No acute radiographic abnormality. Certified Orthotic Fitter: [facility] Transcribe Date/Time: May 12 2020 4:35P Dictated by : BRYAN HANEY MD This examination was interpreted and the report reviewed and electronically signed by: BRYAN HANEY MD on May 12 2020 4:35PM EST DIVISION OF RADIOLOGY * * *Final Report* * * DATE OF EXAM: May 12 2020 3:13PM WOX [id number] - XR CHEST 2V FRONTAL/LAT / PROCEDURE REASON: SOB (shortness of breath) * * * * Physician Interpretation * * * * EXAMINATION: CHEST RADIOGRAPH (2 VIEW FRONTAL & LATERAL) CLINICAL HISTORY: SOB (shortness of breath) MQ: XC2_6 EXAM DATE/TIME: 05/12/2020 3:13 PM COMPARISON: 05/03/2017 RESULT: Lines, tubes, and devices: None. Lungs and pleura: No consolidation. No lung mass. No pleural effusion. No pneumothorax. Cardiomediastinal silhouette: Normal cardiomediastinal silhouette. Bones and soft tissues: Unremarkable. DIVISION OF RADIOLOGY Provider, [facility] - 05/12/2020 * * *Final Report* * * DATE OF EXAM: May 12 2020 3:13PM WOX [id number] - XR CHEST 2V FRONTAL/LAT / PROCEDURE REASON: SOB (shortness of breath) * * * * Physician Interpretation * * * * EXAMINATION: CHEST RADIOGRAPH (2 VIEW FRONTAL & LATERAL) CLINICAL HISTORY: SOB (shortness of breath) MQ: XC2_6 EXAM DATE/TIME: 05/12/2020 3:13 PM COMPARISON: 05/03/2017 RESULT: Lines, tubes, and devices: None. Lungs and pleura: No consolidation. No lung mass. No pleural effusion. No pneumothorax. Cardiomediastinal silhouette: Normal cardiomediastinal silhouette. Bones and soft tissues: Unremarkable. IMPRESSION IMPRESSION: No acute radiographic abnormality. Certified Orthotic Fitter: GEENA Transcribe Date/Time: May 12 2020 4:35P Dictated by : BRYAN HANEY MD This examination was interpreted and the report reviewed and electronically signed by: BRYAN HANEY MD on May 12 2020 4:35PM [facility] Radiology Study observation (narrative) Sadia monge [facility] XR Chest PA and LateralOrder ed By: Ccf Provider on 05-12-2020 [facility] CHEST-2 VIEWon 12-14-2019 CHEST-2 VIEW JANE GUTIERREZ [id number] Ordering physician: Stoney Lagos LOC:ER [id number] Attending physician: [id number] DOS: 12/14/19 Acc#: [id number] Exam/Proc: CHEST-2 VIEW Dept: RADIOLOGY INDICATION: shortness of breath EXAMINATION: X-ray CHEST-2 VIEW COMPARISON: July 04, 2019 chest x-ray FINDINGS: Subtle perihilar reticular pulmonary markings. No gross consolidative pneumonia, effusion, or pneumothorax. Heart size normal. Aortic contour normal. Mild rotoscoliosis. No gross acute osseous process demonstrated. IMPRESSION: 1. Subtle perihilar reticular pulmonary markings, nonspecific. Chronic lung change considered. Inflammatory/infectiou s process considered. Correlate with clinical exam findings. Electronically signed by: Jim Rogers DO 12/14/2019 1:44 PM CDT REPORT SIGNATURE ON FILE Electronically Signed Date/Time: 12/14/19 1344 Dictated Date/time: 12/14/19 1344 CC: [facility] ED.PDOCon 12-14-2019 ED.PDOC JANE GUTIERREZ [id number] Attending provider: [facility] ER ER [id number] Stoney Lagos 1970 48 DOS: 12/14/19 Hx/Exam - History of Present Illness Chief Complaint: COUGH Additional Comments: 48-year-old female with known history of COPD and heavy smoking calms with cough wheezing and shortness of breath. Its been going on for a week. No associated fever chills or productivity of the cough. No known exposures to COVID-19. She has some rib pain from coughing that is intermittent and only present with a cough. It is sharp its fibers 6/10 it is bilateral. She is not in any pain right now. She does have a nebulizer at home. She has been using it. She has not been on steroids for a year. - Review of Systems All Other Systems: Pertinent Positives in HPI, All Other Systems Negative Constitutional: Denies: Fever, Chills, Sweats, Weakness, Malaise Eyes: Denies: Blurred Vision, Conjunctivae Inflammation, Eye Discharge ENT: Denies: Nose Congestion, Throat Pain Respiratory: Shortness of Breath, SOB with Excertion, Wheezing. Denies: Cough, Hemoptysis, Pleuritic Pain, Sputum Cardiovascular: Chest Pain (Chest wall pain with cough ). Denies: Palpitations, Light Headedness Gastrointestinal: Denies: Nausea, Vomiting, Abdominal Pain Genitourinary: Denies: Dysuria, Frequency, Urgency Reproductive: Denies Presumptive Musculoskeletal: Denies: Neck Pain, Back Pain, Body Aches Skin: Denies: Rash, Lesions Neurological: Denies: Headache, Weakness Psychiatric: Denies: Anxiety, Depression - Past Medical History General History: Yes COPD - Past Surgical History Surgical History: Yes Appendectomy, Yes Hysterectomy - Social History Smoking Status: Current every day smoker Hx Alcohol Use: Yes Hx Drug Use: None Living Conditions: Friends - Physical Exam General Appearance: awake, alert, no apparent distress Eyes: PERRL, EOMI, conjunctivae clear Head, Ears, Nose, and Throat: pharynx normal, mucous membranes moist Neck: no stridor Respiratory: no respiratory distress, no accessory muscle use, wheezing, chest wall tender (A little tender to palpation of the ribs on both sides ) Cardiovascular: regular rate, rhythm Abdomen/GI: non tender, soft, non-distended, normal bowel sounds Back: non tender Extremity: normal inspection, no pedal edema, no calf tenderness Pulses: Radial: 2+ Neurologic: no motor/sensory deficits, speech clear/fluent, boiler tester II-XII intact Psychiatric: oriented x3, calm, normal affect Skin Exam: warm/dry, normal color - Source of History Source of History: Nursing Notes/Vital Signs/Triage Reviewed and Agree Note(s) - Physician Notes Additional Notes, See Orders for Details: 12/14/19 14:39 Chest x-ray shows no acute change. Patient will go home on prednisone burst with taper as well as albuterol for nebulizer. EKG - EKG EKG Interpretation: Not Applicable Discharge Screen - Discharge Discharge Problem: COPD exacerbation, Strain of chest wall, Smoking Disposition: HOME/SELF CARE Condition: Stable Instructions: DI for Chronic Obstructive Pulmonary Disease, Web and Computer Based Smoking Cessation Programs May Be Effective Prescriptions: Albuterol Sulfate 0.63 mg IN 4 X DAY PRN PRN #50 neb PRN Reason: Albuterol Sulfate [Proair Hfa] 2 puffs INH Q4H PRN #1 inh PRN Reason: Wheezing PredniSONE [Prednisone] 40 mg PO DAILY #34 tab PredniSONE [Prednisone] 60 mg PO DAILY #15 tab Referrals: Call,On [NON STAFF] - William Dimas [ACTIVE] - Dictated By: Stoney Lagos MD Dictated Date/Time:12/14/19 1308 Electronically Signed Date/Time: 12/14/19 1445 [facility] ABDOMEN/PELVIS W/CONTRASTon 09-14-2019 ABDOMEN/PELVIS W/CONTRAST JANE GUTIERREZ Female [id number] Ordering physician: Vy Gutierres LOC:ER [id number] Attending physician: [id number] 48 DOS: 09/14/19 Acc#: [id number] Exam/Proc: ABDOMEN/PELVIS W/CONTRAST Dept: COMPUTED TOMOGRAPHY EXAM DESCRIPTION: ABDOMEN/PELVIS W/CONTRAST CLINICAL HISTORY: pain, nausea, diarrhea, uterine cancer hx TECHNIQUE: Routine helical CT images were obtained from the lung bases through the pelvis after the uneventful administration of IV contrast. Coronal and sagittal reformats were obtained. Dose lowering techniques were utilized to include automated exposure control, adjustment of the mA and/or kV according to patient size, and use of iterative reconstruction technique. COMPARISON: None available FINDINGS: The size, density, and morphology of the liver, spleen, adrenals, kidneys, pancreas and unopacified loops of bowel are unremarkable. The opacified aorta demonstrates normal size and morphology without aneurysmal dilation or dissection. There are no enlarged lymph nodes by pathologic size criteria. There is no free fluid within the pelvis. The bladder has an unremarkable CT appearance. Patient status post hysterectomy. The osseous structures are without gross lytic or sclerotic lesion. The lung bases are clear. IMPRESSION: No acute intra-abdominal or intrapelvic pathology. Electronically signed by: Edmond Cortez MD 09/14/2019 7:36 PM CDT Workstation: [employer] REPORT SIGNATURE ON FILE Electronically Signed Date/Time: 09/14/191935 Dictated Date/time: 09/14/191935 CC: Normal [facility] AMYLASEon 09-14-2019 Amylase [Catalytic activity/Vol] 50 U/L Normal 25-115 [facility] Comment on above: Performed By: #### A MY, LIP #### [address] [address] CBC with AUTO DIFFon 020 BAS0 % 0.90 % Normal 0-2 [facility] Comment on above: Performed By: #### C BC #### [address] [address] Basophils (Bld) [#/Vol] 0.1 10*3/uL Normal 0-0.1 [facility] Comment on above: Performed By: #### C BC #### [address] [address] Eosinophils (Bld) [#/Vol] 0.3 10*3/uL Normal 0.0-1.80 [facility] Comment on above: Performed By: #### C BC #### [address] [address] Eosinophils/100 WBC (Bld) 3.0 % Normal 0-8 [facility] Comment on above: Performed By: #### C BC #### [address] [address] GRAN # 5.2 K/uL Normal 2.2-9.1 [facility] Comment on above: Performed By: #### C BC #### [facility] [address] [place] [address] GRAN % 53.2 % Normal 42-80 [facility] Comment on above: Performed By: #### C BC #### [facility] [address] [place] [address] Hematocrit (Bld) [Volume fraction] 37.0 % Normal 37.0-47.0 [facility] Comment on above: Performed By: #### C BC #### [facility] [address] [place] [address] Hemoglobin (Bld) [Mass/Vol] 12.5 g/dL Normal 12.0-16.0 [facility] Comment on above: Performed By: #### C BC #### [facility] [address] [place] [address] Lymphocytes (Bld) [#/Vol] 3.4 10*3/uL Normal 1.0-4.0 [facility] Comment on above: Performed By: #### C BC #### [facility] [address] [place] [address] Lymphocytes/100 WBC (Bld) 34.9 % Normal 16-48 [facility] Comment on above: Performed By: #### C BC #### [facility] [address] [place] [address] MCH (RBC) [Entitic mass] 33.9 g/dL Normal 31.0-36.0 [facility] Comment on above: Performed By: #### C BC #### [facility] [address] [place] [address] MCV (RBC) [Entitic vol] 87.3 fL Normal 80-97 [facility] Comment on above: Performed By: #### C BC #### [facility] [address] [place] [address] MEAN CORPUSCULAR HGB 29.6 pg Normal 26.0-32.0 [facility] Comment on above: Performed By: #### C BC #### [facility] [address] [place] [address] Monocytes (Bld) [#/Vol] 0.8 10*3/uL Normal 0.1-1.7 [facility] Comment on above: Performed By: #### C BC #### [facility] [address] [place] [address] Monocytes/100 WBC (Bld) 8.0 % Normal 3-9 [facility] Comment on above: Performed By: #### C BC #### [facility] [address] [place] [address] Platelet mean volume (Bld) [Entitic vol] 9.1 fL Normal 6.6-10.5 [facility] Comment on above: Performed By: #### C BC #### [facility] [address] [place] [address] Platelets (Bld) [#/Vol] 321 10*3/uL Normal 140-450 [facility] Comment on above: Performed By: #### C BC #### [facility] [address] [place] [address] RBC (Bld) [#/Vol] 4.24 10*6/uL Normal 4.20-5.50 [facility] Comment on above: Performed By: #### C BC #### [facility] [address] [place] [address] RED CELL DISTRI WIDTH 14.7 % Normal 11.0-15.5 [facility] Comment on above: Performed By: #### C BC #### [facility] [address] [place] [address] WBC (Bld) [#/Vol] 9.8 10*3/uL Normal 4.0-11.0 [facility] Comment on above: Performed By: #### C BC #### [facility] [address] [place] [address] COMPREHENSIVE METABOLIC PANE Go 09-14-2019 Albumin [Mass/Vol] 3.3 g/dL Low 3.4-5.0 [facility] Comment on above: Performed By: #### M N #### [facility] [address] [place] [address] Albumin/Globulin [Mass ratio] 1.0 {ratio} Low 1.1-1.8 [facility] Comment on above: Performed By: #### M N #### [facility] [address] [place] [address] ALP [Catalytic activity/Vol] 95 U/L Normal 45-117 [facility] Comment on above: Performed By: #### M N #### [facility] [address] [place] [address] ALT [Catalytic activity/Vol] 16 U/L Normal 12-78 [facility] Comment on above: Performed By: #### M N #### [facility] [address] [place] [address] Anion gap [Moles/Vol] 6.8 mmol/L Low 11-23 [facility] Comment on above: Performed By: #### M N #### [address] [place] [address] Bilirubin [Mass/Vol] 0.1 mg/dL Low 0.2-1.0 [facility] Comment on above: Performed By: #### M N #### [address] [place] [address] Calcium [Mass/Vol] 8.3 mg/dL Low 8.5-10.1 [facility] Comment on above: Performed By: #### M N #### [address] [place] [address] Chloride [Moles/Vol] 110 mmol/L High 98-107 [facility] Comment on above: Performed By: #### M N #### [address] [place] [address] CO2 [Moles/Vol] 28.0 mmol/L Normal 21-32 [facility] Comment on above: Performed By: #### M N #### [address] [place] [address] Creatinine [Mass/Vol] 0.90 mg/dL Normal 0.55-1.02 [facility] Comment on above: Performed By: #### M N #### [address] [place] [address] GFR AM > 60.0 [facility] Comment on above: Result Comment: THE NORMAL LEVEL OF GFR VARIES ACCORDING TO AGE, SEX, AND BODY SIZE. A GFR LEVEL OF LESS THAN 60 ML/MIN REPRESENTS LOSS OF THE ADULT LEVEL OF NORMAL KIDNEY FUNCTION. Performed By: #### M N #### [address] [place] [address] GFR/1.73 sq M.predicted MDRD (S/P/Bld) [Vol rate/Area] mL/min/{1.73_m2} [facility] Comment on above: Performed By: #### M N #### [facility] [place] [facility] [address] [place] [address] Globulin (S) [Mass/Vol] 3.4 g/dL Normal 2.5-4.6 [facility] Comment on above: Performed By: #### M N #### [facility] [address] [place] [address] Glucose [Mass/Vol] 85 mg/dL Normal 70-100 [facility] Comment on above: Performed By: #### M N #### [facility] [address] [place] [address] Potassium [Moles/Vol] 3.6 mmol/L Normal 3.5-5.1 [facility] Comment on above: Performed By: #### M N #### [facility] [address] [place] [address] Protein [Mass/Vol] 6.7 g/dL Normal 6.0-8.3 [facility] Comment on above: Performed By: #### M N #### [facility] [address] [place] [address] SGOT/AST 13 U/L Low 15-37 [facility] Comment on above: Performed By: #### M N #### [facility] [address] [place] [address] Sodium [Moles/Vol] 141 mmol/L Normal 136-145 [facility] Comment on above: Performed By: #### M N #### [facility] [address] [place] [address] Urea nitrogen [Mass/Vol] 19.0 mg/dL High 7-18 [facility] Comment on above: Performed By: #### M N #### [facility] [address] [place] [address] ED.PDOCon 09-14-2019 ED.PDOC JANE GUTIERREZ [id number] Attending provider: [facility] [id number] Vy Gutierres 1970 48 DOS: 09/14/19 Hx/Exam - History of Present Illness Location: diffuse but worse on mid to left side Symptom Duration: 1 Symptom Duration: Day(s) Onset of Symptoms: acute Intensity: moderate Quality: sharp Episode Frequency: constant Radiations: none Symptoms Improve with: none Symptoms Worse with: any food Assoc Sxs/Pertinent Hx: nausea, nonbloody diarrhea, h/o uterine CA with hysterectomy-1999 Patient/Family Denies: fevers, cp, sob, dizziness, vomiting, weak, dysuria, flank pain, rash - Review of Systems All Other Systems: Pertinent Positives in HPI, All Other Systems Negative Constitutional: Denies: Fever, Chills, Sweats, Weakness, Malaise Respiratory: Denies: Cough, Shortness of Breath, Wheezing Cardiovascular: Denies: Chest Pain, Palpitations, Light Headedness Gastrointestinal: Nausea, Abdominal Pain, Constipation. Denies: Vomiting, Diarrhea, Melena, Hematochezia Genitourinary: Denies: Dysuria, Frequency, Urgency, Hematuria, Incontinence, Retention Reproductive: Denies Presumptive (hysterectomy) Musculoskeletal: Denies: Back Pain Skin: Denies: Rash, Lesions, Jaundice, Laceration, Abrasion, Bruising Neurological: Denies: Headache, Weakness, Numbness, Incoordination, Change in Speech, Confusion, Seizures - Past Medical History General History: Yes COPD - Past Surgical History Surgical History: Yes Appendectomy, Yes Hysterectomy - Social History Smoking Status: Current every day smoker - Physical Exam General Appearance: awake, alert, no apparent distress Eyes: PERRL, EOMI, conjunctivae clear Head, Ears, Nose, and Throat: mucous membranes moist Neck: supple, full ROM Respiratory: lungs clear, no wheezes/rhonchi/rales, no respiratory distress, no accessory muscle use Cardiovascular: regular rate, rhythm, no murmur Abdomen/GI: soft, non-distended, normal bowel sounds, no organomegaly, no pulsatile mass, guarding, diffuse tenderness (worse on left and mid) Back: no CVA tenderness Extremity: normal range of motion, non-tender, normal inspection, normal capillary refill Pulses: Radial: 2+ Neurologic: no motor/sensory deficits, normal gait, normal strength, normal sensation, speech clear/fluent Psychiatric: oriented x3, calm Skin Exam: warm/dry, normal color - Source of History Source of History: Nursing Notes/Vital Signs/Triage Reviewed and Agree Source of History: Old Medical Records Reviewed - History of Present Illness Chief Complaint: ABDOMINAL PAIN Additional Comments: + smoker with h/o COPD. states last ate soft tacos few hrs ago. Told 4 yrs ago had abnormal PAP test which is supposed to be a yearly test but patient hasnt followed up for over last year. (Vy Gutierres) Note(s) - Physician Notes Additional Notes, See Orders for Details: 09/14/19 19:[address] Canada. 09/14/19 20:[address] abd/pelvis no acute intra-abdominal pathology. 09/14/19 21:05 Patient initially refused anything for pain. On my recheck to discuss results she was still c/o no change in pain so she now agreed to have something for pain. She will be given bentyl IM and dilaudid IV. Wie also discussed follow up referrals. 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 She states she has h/o of GERD and had scope though past GI located in [place] but hasnt seen him since. She is not currently on any GERD medication. 09/14/19 21:54 Dr Canada is going to recheck after patient has had some time to allow pain medications to take effect. (Vy Gutierres) 09/14/19 23:05 I saw patient as well, and agree with workup and plan. 48 yo F presents for eavluation of abdomainl discomfort. Denies chset pain or SOB. Denies back or flank pain. Denies distinct pelvic pain. Denies any concern for . CT a/p shows no acute process; I d/w pt and her loved one all imaging results. Exam: PERRLA, EOMI RRR no MRG BCTA no WR Soft abdomen no peritoneal signs noted CN 2-12 intact, strength 5/5 UE and LE; sensation 2+ light touch B/L No rash noted My reassessment of pt shows she now feels improved after meds in the ED. Repeat exam shows soft abdomen, no peritoneal signs; in particular no RLQ or vamsi-umbilical tenderness. Patient has tolerated PO well and has been up and ambulatory with steady gait in the ED. Repeat HR 72 radial bedside. Pt states she has close follow up outpt, and her loved one confirms she is acting her baseline. I d/w pt no driving with phenergan. Discussed with patient, comfortable with plan, close follow up and return precautions. 03/10/20 11:10 This note completed at this point due to the busyness of the ED at time of pt encounter. 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 If the symptoms worsen or new symptoms develop return to the Emergency Department (ED) immediately. Call your doctor for additional questions. ED Condition: Good Instructions: DI for Abdominal Pain-Adult Prescriptions: Dicyclomine [Bentyl] 10 mg PO Q8H PRN PRN #10 cap PRN Reason: RX: Omeprazole [Prilosec] 20 mg PO DAILY #10 cap Promethazine HCl [Phenergan] 12.5 mg PO BID PRN PRN #5 tab PRN Reason: Referrals: Jonathan Newell [ACTIVE] - 2-3 Days Paco Sanchez [ACTIVE] - 2-3 Days William Dimas [Family Provider] - 2-3 Days Dictated By: YECENIA Whitley Dictated Date/Time:09/14/19 191 Electronically Signed Date/Time: 09/15/19 1157 Normal [facility] LACTIC ACIDon 09-14-2019 Lactate [Moles/Vol] 0.7 mmol/L Normal 0.4-2.0 [facility] Comment on above: Order Comment: Y Performed By: #### L A #### [facility] [address] [place] [address] LIPASEon 09-14-2019 Lipase [Catalytic activity/Vol] 345 U/L Normal 73-393 [facility] Comment on above: Performed By: #### A MY, LIP #### [facility] [address] [place] [address] URINALYSISon 09-14-2019 Appearance (U) Clear Normal CLEAR [facility] Comment on above: Order Comment: What Is Urine Source? Clean Catch [place] Performed By: #### U A #### [facility] [address] [place] [address] Color (U) Lt. Yellow Normal [facility] Comment on above: Order Comment: What Is Urine Source? [place] Performed By: #### U A #### [address] [address] Hemoglobin Ql (U) Negative Normal NEGATIVE [facility] Comment on above: Order Comment: What Is Urine Source? [place] Performed By: #### U A #### [address] [address] pH (U) 6.5 [pH] Normal 5.0-9.0 [facility] Comment on above: Order Comment: What Is Urine Source? Clean [place] Performed By: #### U A #### [address] [address] Protein (U) [Mass/Vol] Negative Normal NEGATIVE [facility] Comment on above: Order Comment: What Is Urine Source? [place] Performed By: #### U A #### [address] [address] URINE BILIRUBIN - DIPSTICK Negative Normal NEGATIVE [facility] Comment on above: Order Comment: What Is Urine Source? [place] Performed By: #### U A #### [address] [address] URINE GLUCOSE -DIPSTICK Negative Normal NEGATIVE [facility] Comment on above: Order Comment: What Is Urine Source? [place] Performed By: #### U A #### [address] [address] URINE KETONE Negative Normal NEGATIVE [facility] Comment on above: Order Comment: What Is Urine Source? [place] Performed By: #### U A #### [address] [address] URINE LEUK ESTERASE Negative Normal NEGATIVE [facility] Comment on above: Order Comment: What Is Urine Source? [place] Performed By: #### U A #### [address] [address] URINE NITRITE - DIPSTICK Negative Normal NEGATIVE [facility] Comment on above: Order Comment: What Is Urine Source? [place] Performed By: #### U A #### [address] [address] URINE SPEC GRAVITY, DIPSTICK 1.010 Normal 1.003-1.035 [facility] Comment on above: Order Comment: What Is Urine Source? [place] Performed By: #### U A #### [facility] [address] [place] [address] URINE UROBILINOGEN - DIPSTICK 0.2 E.U./dL Normal <=1.0 [facility] Comment on above: Order Comment: What Is Urine Source? Clean [place] Performed By: #### U A #### [facility] [address] [place] [address] CHEST-2 VIEWon 07-04-2019 CHEST-2 VIEW GUTIERREZJANEfrank greco [id number] Ordering physician: Narendra Pugh LOC:ER [id number] Attending physician: 1970 48 DOS: 07/04/19 Acc#: [id number] Exam/Proc: CHEST-2 VIEW Dept: RADIOLOGY EXAM DESCRIPTION: CHEST-2 VIEW CLINICAL HISTORY: cough/SOB COMPARISON:None available FINDINGS: PA and lateral radiographs of the chest were obtained. The lungs are clear without evidence of focal consolidation, mass, pleural effusion, or pneumothorax. The cardiomediastinal silhouette is unremarkable. The bones and soft tissues are unremarkable. IMPRESSION: Negative PA and lateral radiographs of the chest. Electronically signed by: Edmond Cortez MD 07/04/2019 6:10 PM [facility] REPORT SIGNATURE ON FILE Electronically Signed Date/Time: 07/04/191809 Dictated Date/time: 07/04/191809 CC: Normal [facility] ED.PDOCon 07-04-2019 ED.PDOC GUTIERREZJANEfrank greco [id number] Attending provider: [facility] ER [id number] Narendra Pugh 1970 48 DOS: 07/04/19 Hx/Exam - History of Present Illness Symptom Duration: several weeks Onset of Symptoms: subtle and steadily worsening Intensity: moderate-severe Quality: cough wheeze and SOB c exertion Episode Frequency: constant Symptoms Improve with: rest Symptoms Worse with: minimal exertion Assoc Sxs/Pertinent Hx: known hx of COPD smoke cigs daily Patient/Family Denies: fevers or night sweats - Review of Systems Constitutional: Denies: Fever, Chills, Sweats, Weakness, Malaise, Weight Gain, Weight Loss, Other Eyes: Denies: Pain, Blurred Vision, Double Vision, Conjunctivae Inflammation, Eyelid Inflammation, Redness, Eye Discharge, Other ENT: Denies: Ear Pain, Ear Discharge, Hearing Impaired, Nose Pain, Nose Discharge, Nose Congestion, Mouth Pain, Mouth Swelling, Throat Pain, Throat Swelling, Other Respiratory: Cough, Shortness of Breath, SOB with Excertion, Sputum, Wheezing. Denies: Hemoptysis Cardiovascular: Denies: Chest Pain, Palpitations Gastrointestinal: Denies: Nausea, Vomiting, Abdominal Pain, Diarrhea, Constipation, Melena, Hematochezia, Other, 9 Genitourinary: Denies: Dysuria, Frequency, Urgency Neurological: Denies: Headache, Weakness, Numbness, Incoordination, Change in Speech, Confusion, Seizures, Other Psychiatric: Denies: Anxiety, Depression, Radha, Dementia, Hallucination, Suicidal Ideation, Other - Physical Exam General Appearance: awake, alert, no apparent distress Eyes: PERRL, EOMI, no scleral icterus Head, Ears, Nose, and Throat: pharynx normal, mucous membranes moist Neck: supple, non-tender Respiratory: no respiratory distress, no accessory muscle use, crackles/rales, rhonchi, wheezing Cardiovascular: regular rate, rhythm, no murmur Abdomen/GI: non tender, soft Extremity: no pedal edema, no calf tenderness Pulses: Carotid: 1+, Radial: 1+ Neurologic: no motor/sensory deficits, normal gait, speech clear/fluent Psychiatric: oriented x3, calm, normal affect Skin Exam: warm/dry, normal color - History of Present Illness Chief Complaint: COUGH Note(s) - Physician Notes Additional Notes, See Orders for Details: 07/04/19 18:43 pt is currently receiving aerosols and is starting to feel better case endorsed to Dr Canada at change of shift . CXR is pending. Plan home nebs, zithromax, 9 day prednisone taper. (Narendra Pugh) 07/04/19 19:19 I received sign out regarding patient at change of shift, pending disposition, cxr result. 48 yo F presents with hx of COPD, with cough and wheezing. Exam: PERRLA, EOMI Midline uvula, no exudates; symmetric nonswollen tonsils bilaterally; no pain or swelling noted under tongue. No pain over anterior throat. RRR no MRG BCTA with trace wheezing B/L noted Soft abdomen no peritoneal signs noted Strength 5/5 UE and LE; sensation 2+ light touch B/L No rash noted Steady gait I reviewed nursing notes. Pulse ox 99% on RA. No stridor or retracitons. PERC negative. cxr shows no acute process; I d/w pt all imaging results. Discussed with patient, loved one, comfortable with plan, close follow up and return precautions. This note is completed with assistance of the [employer] dictation program. While every attempt has been made to dictate accurately, the system does make errors in transcribing the precise spoken word intended. (Amado Canada) EKG - EKG EKG Interpretation: Not Applicable Discharge Screen - Discharge Discharge Problem: COPD exacerbation, Cough Disposition: HOME/SELF CARE Additional Instructions: nebulizer as directed, prednisone, zithromax, STOP SMOKING return if worse Make and keep apt with Dr Traore for follow up care. Condition: Good Instructions: DI for Chronic Obstructive Pulmonary Disease Prescriptions: Albuterol [Ventolin] 2.5 mg AERO 4 X DAY PRN #30 udc PRN Reason: Azithromycin [Z-Neema] 1 pack PO ASDIR #1 pack PredniSONE [Prednisone] 0 tab PO ASDIR #18 tab Referrals: Sindy Traore [ACTIVE] - 2-3 Days [facility] [Provider Group] - 2-3 Days Dictated By: Narendra Pugh MD Dictated Date/Time:07/04/19 5660 Electronically Signed Date/Time: 07/09/19 1630 [facility] Telephone (HLPRAD) JANE STEINBERG ( ) 1970 FDate Time Provider Guimzvekdk71/25/17 JUAN JOSE DOVER During your visit today, we recorded the following information about you:Juan Jose Dover MD 05/02/2017 2:38 PM SignedCalled and discussed b6 levels. She will start a supplementAllergies As of Date: 05/02/2017 Noted Allergy ReactionPENICILLINS 06/11/2006 10 - AnaphylaxisDate Reviewed: 04/30/2017Reviewed by: Sonya Gill LPN - Fully AssessedReason for Visit: Results [95]Prescriptions as of 05/02/2017 Sig: SUCRALFATE 1 GRAM TABLET Take 1 tablet by mouth four t* PANTOPRAZOLE 40 MG TABLET,DEL* Take 1 tablet by mouth once d* PREDNISONE 10 MG TABLET 4 tablets daily for 3 days, 3* MONTELUKAST 10 MG TABLET Take 1 tablet by mouth daily * FLUTICASONE 200 MCG-VILANTERO* Inhale 1 Inhalation as instru* PREGABALIN 50 MG CAPSULE Take 1 capsule by mouth as di* IBUPROFEN 800 MG TABLET Take 1 tablet by mouth every * FLUOXETINE 40 MG CAPSULE Take 1 capsule by mouth once * DULOXETINE 60 MG CAPSULE,CAROLYN* Take 1 capsule by mouth once * ERGOCALCIFEROL (VITAMIN D2) 5* Take 1 capsule by mouth once * ASPIRIN 81 MG TABLET,DELAYED * Take 1 tablet by mouth once d* LORAZEPAM 0.5 MG TABLET Take 1 tablet by mouth twice * FLUTICASONE 50 MCG/ACTUATION * Use 2 Sprays in each nostril * ALBUTEROL SULFATE CONCENTRATE* Use 0.5 mL via nebulizer ever* IPRATROPIUM 20 MCG-ALBUTEROL * Inhale 1 Puff as instructed f*Problem List As Of Date 05/02/2017 Noted Resolved Asthma [J45.909] 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 BULIMIA NERVOSA [F50.2] INVALID FOR* More... Edema [R60.9] INVALID FOR*05/18/2016 DEPRESSIVE DISORDER NEC [F32.9] INVALID FOR* Community acquired pneumonia [J18.9] INVALID FOR* Cervicalgia [M54.2] INVALID FOR* Intractable chronic cluster headache [G44.021] INVALID FOR* Tobacco use disorder, mild, in early remission,*INVALID FOR* Pedal edema [R60.0] INVALID FOR* VAIN I (vaginal intraepithelial neoplasia grade*INVALID FOR* Centrilobular emphysema (HCC) [J43.2] INVALID FOR* Vitamin D deficiency [E55.9] INVALID FOR* Chronic neck and back pain [M54.2, M54.9] INVALID FOR* Myofascial pain [M79.1] INVALID FOR* Fibromyalgia [M79.7] INVALID FOR* Chest pain [R07.9] INVALID FOR*01/17/2017 Regurgitation [R11.10] INVALID FOR* More... GERD without esophagitis [K21.9] INVALID FOR* More... Status:Closed by JUAN JOSE DOVER MD on 05/02/17 [facility] SURGICAL PATHOLOGY, CONVERTE Don 06-06-2011 [facility] No Panel Information SARS-CoV-2 & FLU Antigen (Rapid) [facility] Work Phone: Vital Signs Date Time Vital Sign Value Performing Clinician Facility 02-06-2025 10:35-0400 Body temperature 97.8 [degF] [facility] Work Phone: [facility] 02-06-2025 10:35-0400 Diastolic blood pressure 84 mm[Hg] [facility] Work Phone: [facility] 02-06-2025 10:35-0400 Heart rate 72 /min [facility] Work Phone: [facility] 02-06-2025 10:35-0400 Respiratory rate 18 /min [facility] Work Phone: [facility] 02-06-2025 10:35-0400 SaO2% (BldA) [Mass fraction] 96 % [facility] Work Phone: [facility] 02-06-2025 10:35-0400 Systolic blood pressure 148 mm[Hg] [facility] Work Phone: [facility] 02-06-2025 09:08-0400 Body height 154.94 cm LAURA O[facility] Work Phone: [facility] 02-06-2025 09:08-0400 Body mass index (BMI) [Ratio] 22.1 kg/m2 LAURA OLDER [facility] Work Phone: [facility] 02-06-2025 09:08-0400 Body weight 53.07 kg LAURA OLDER [facility] Work Phone: [phone] [place] [address] 01-14-2025 07:23-0400 Body mass index (BMI) [Ratio] 22.4 kg/m2 LAURA OLDER [facility] Work Phone: [facility] 01-14-2025 07:23-0400 Body temperature 97.4 [degF] LAURA OLDER [facility] Work Phone: [phone] [place] [address] 01-14-2025 07:23-0400 Body weight 53.97 kg LAURA OLDER [facility] Work Phone: [facility] 01-14-2025 07:23-0400 Diastolic blood pressure 99 mm[Hg] LAURA OLDER [facility] Work Phone: [facility] 01-14-2025 07:23-0400 Heart rate 84 /min LAURA OLDER [employer] Work Phone: [facility] 01-14-2025 07:23-0400 Respiratory rate 16 /min LAURA OLDER [facility] Work Phone: [facility] 01-14-2025 07:23-0400 SaO2% (BldA) [Mass fraction] 94 % LAURA OLDER [facility] Work Phone: [facility] 01-14-2025 07:23-0400 Systolic blood pressure 149 mm[Hg] LAURA OLDER [facility] [facility]NE[facility]C Work Phone: [facility] 12-29-2024 09:00-0400 Body mass index (BMI) [Ratio] 21.26 kg/m2 Laura Older HOUSESMITH.DUMPER Work Phone: [facility] 12-29-2024 09:00-0400 Body weight 53.07 kg Laura Older HOUSESMITH[employer]DUMPER Work Phone: [facility] 12-29-2024 09:00-0400 Diastolic blood pressure 80 mm[Hg] Laura Older HOUSESMITH.DUMPER Work Phone: [facility] 12-29-2024 09:00-0400 Heart rate 80 /min Laura Older HOUSESMITH.DUMPER Work Phone: [facility] 12-29-2024 09:00-0400 Respiratory rate 16 /min Laura Older HOUSESMITH.DUMPER Work Phone: [facility] 12-29-2024 09:00-0400 SaO2% (BldA) [Mass fraction] 94 % Laura Older HOUSESMITH[employer]DUMPER Work Phone: [facility] 12-29-2024 09:00-0400 Systolic blood pressure 132 mm[Hg] Laura Older HOUSESMITH[employer]DUMPER Work Phone: [facility] 12-16-2024 09:00-0400 Diastolic blood pressure 86 mm[Hg] Jerry Golias PT Work Phone: [facility] 12-16-2024 09:00-0400 Heart rate 81 /min Jerry Golias PT Work Phone: [facility] 12-16-2024 09:00-0400 Systolic blood pressure 134 mm[Hg] Jerry Golias PT Work Phone: [facility] 11-24-2024 08:40-0400 Body mass index (BMI) [Ratio] 21.8 kg/m2 Laura Older [employer]OUSESMITH[employer]DUMPER Work Phone: [facility] 11-24-2024 08:40-0400 Body temperature 97.59 [degF] Laura Older HOUSESMITH[employer]DUMPER Work Phone: [facility] 11-24-2024 08:40-0400 Body weight 54.43 kg Laura Older HOUSESMITH.DUMPER Work Phone: [facility] 11-24-2024 08:40-0400 Diastolic blood pressure 79 mm[Hg] Laura Older HOUSESMITH.DUMPER Work Phone: [facility] Comment on above: bp machine reading 11-24-2024 08:40-0400 Heart rate 85 /min Laura Older HOUSESMITH.DUMPER Work Phone: [facility] 11-24-2024 08:40-0400 SaO2% (BldA) [Mass fraction] 93 % Laura Older HOUSESMITH.DUMPER Work Phone: [facility] 11-24-2024 08:40-0400 Systolic blood pressure 122 mm[Hg] Laura Older HOUSESMITH.DUMPER Work Phone: [facility] Comment on above: bp machine reading 11-06-2024 15:09-0400 Body mass index (BMI) [Ratio] 22.13 kg/m2 Melanie Shook MD Work Phone: [facility] 11-06-2024 15:09-0400 Body weight 55.25 kg Melanie Shook MD Work Phone: [facility] 11-06-2024 15:09-0400 Diastolic blood pressure 81 mm[Hg] Melanie Shook MD Work Phone: [facility] 11-06-2024 15:09-0400 Heart rate 78 /min Melanie Shook MD Work Phone: [facility] 11-06-2024 15:09-0400 Respiratory rate 14 /min Melanie Shook MD Work Phone: [facility] 11-06-2024 15:09-0400 SaO2% (BldA) [Mass fraction] 95 % Melanie Shook MD Work Phone: [facility] 11-06-2024 15:09-0400 Systolic blood pressure 123 mm[Hg] Melanie Shook MD Work Phone: [facility] 11-06-2024 07:10-0400 Body mass index (BMI) [Ratio] 21.99 kg/m2 Laura Older HOUSESMITH.DUMPER Work Phone: [facility] 11-06-2024 07:10-0400 Body weight 54.88 kg Laura Older HOUSESMITH.DUMPER Work Phone: [facility] 11-06-2024 07:10-0400 Diastolic blood pressure 84 mm[Hg] Laura Older HOUSESMITH.DUMPER Work Phone: [facility] 11-06-2024 07:10-0400 Heart rate 84 /min Laura Older HOUSESMITH.DUMPER Work Phone: [facility] 11-06-2024 07:10-0400 Respiratory rate 16 /min Laura Older HOUSESMITH.DUMPER Work Phone: [facility] 11-06-2024 07:10-0400 SaO2% (BldA) [Mass fraction] 96 % Laura Older HOUSESMITH.DUMPER Work Phone: [facility] 11-06-2024 07:10-0400 Systolic blood pressure 128 mm[Hg] Laura Older HOUSESMITH.DUMPER Work Phone: [facility] 09-08-2024 08:50-0500 Body mass index (BMI) [Ratio] 22.39 kg/m2 Laura Older HOUSESMITH.DUMPER Work Phone: [facility] 09-08-2024 08:50-0500 Body weight 56.25 kg Laura Older HOUSESMITH.DUMPER Work Phone: [facility] 09-08-2024 08:50-0500 Diastolic blood pressure 82 mm[Hg] Laura Older HOUSESMITH.DUMPER Work Phone: [facility] 09-08-2024 08:50-0500 Heart rate 78 /min Laura Older HOUSESMITH.DUMPER Work Phone: [facility] 09-08-2024 08:50-0500 Respiratory rate 16 /min Laura Older HOUSESMITH.DUMPER Work Phone: [facility] 09-08-2024 08:50-0500 SaO2% (BldA) [Mass fraction] 98 % Laura Older HOUSESMITH.DUMPER Work Phone: [facility] 09-08-2024 08:50-0500 Systolic blood pressure 130 mm[Hg] Laura Older HOUSESMITH.DUMPER Work Phone: [facility] 08-21-2024 09:30-0500 Body mass index (BMI) [Ratio] 23.29 kg/m2 Laura Older HOUSESMITH.DUMPER Work Phone: [facility] 08-21-2024 09:30-0500 Body weight 58.51 kg Laura Older HOUSESMITH.DUMPER Work Phone: [facility] 08-21-2024 09:30-0500 Diastolic blood pressure 78 mm[Hg] Laura Older HOUSESMITH.DUMPER Work Phone: [facility] 08-21-2024 09:30-0500 Heart rate 72 /min Laura Older HOUSESMITH.DUMPER Work Phone: [facility] 08-21-2024 09:30-0500 Respiratory rate 16 /min Laura Older HOUSESMITH.DUMPER Work Phone: [facility] 08-21-2024 09:30-0500 SaO2% (BldA) [Mass fraction] 98 % Laura Older HOUSESMITH.DUMPER Work Phone: [facility] 08-21-2024 09:30-0500 Systolic blood pressure 128 mm[Hg] Laura Older HOUSESMITH.DUMPER Work Phone: [facility] 08-02-2024 12:11-0500 Body mass index (BMI) [Ratio] 23.33 kg/m2 Weston Strickland MD Work Phone: [facility] 08-02-2024 12:11-0500 Body temperature 97 [degF] Weston Strickland MD Work Phone: [facility] 08-02-2024 12:11-0500 Body weight 58.6 kg Weston Strickland MD Work Phone: [facility] 08-02-2024 12:11-0500 Diastolic blood pressure 72 mm[Hg] Weston Strickland MD Work Phone: [facility] 08-02-2024 12:11-0500 Heart rate 90 /min Weston Strickland MD Work Phone: [facility] 08-02-2024 12:11-0500 Respiratory rate 16 /min Weston Strickland MD Work Phone: [facility] 08-02-2024 12:11-0500 SaO2% (BldA) [Mass fraction] 95 % Weston Strickland MD Work Phone: [facility] 08-02-2024 12:11-0500 Systolic blood pressure 120 mm[Hg] Weston Strickland MD Work Phone: [facility] 05-23-2024 07:17-0500 Body mass index (BMI) [Ratio] 22.03 kg/m2 Laura Older HOUSESMITH.DUMPER Work Phone: [facility] 05-23-2024 07:17-0500 Body weight 55.34 kg Laura Older HOUSESMITH.DUMPER Work Phone: [facility] 05-23-2024 07:17-0500 Diastolic blood pressure 72 mm[Hg] Laura Older HOUSESMITH.DUMPER Work Phone: [facility] 05-23-2024 07:17-0500 Heart rate 72 /min Laura Older HOUSESMITH.DUMPER Work Phone: [facility] 05-23-2024 07:17-0500 Respiratory rate 16 /min Laura Older HOUSESMITH.DUMPER Work Phone: [facility] 05-23-2024 07:17-0500 SaO2% (BldA) [Mass fraction] 96 % Laura Older HOUSESMITH.DUMPER Work Phone: [facility] 05-23-2024 07:17-0500 Systolic blood pressure 122 mm[Hg] Laura Older HOUSESMITH.DUMPER Work Phone: [facility] 04-07-2024 09:52-0400 Body mass index (BMI) [Ratio] 21.73 kg/m2 Mickey López MD Work Phone: [facility] 04-07-2024 09:52-0400 Body weight 54.6 kg Mickey López MD Work Phone: [facility] 04-07-2024 09:52-0400 Diastolic blood pressure 72 mm[Hg] Mickey López MD Work Phone: [facility] 04-07-2024 09:52-0400 Heart rate 78 /min Mickey López MD Work Phone: [facility] 04-07-2024 09:52-0400 SaO2% (BldA) [Mass fraction] 98 % Mickey López MD Work Phone: [facility] 04-07-2024 09:52-0400 Systolic blood pressure 106 mm[Hg] Mickey López MD Work Phone: [facility] 03-31-2024 14:06-0400 Body mass index (BMI) [Ratio] 21.85 kg/m2 Laura Older HOUSESMITH.DUMPER Work Phone: [facility] 03-31-2024 14:06-0400 Body weight 54.88 kg Laura Older HOUSESMITH.DUMPER Work Phone: [facility] 03-31-2024 14:06-0400 Diastolic blood pressure 76 mm[Hg] Laura Older HOUSESMITH.DUMPER Work Phone: [facility] 03-31-2024 14:06-0400 Heart rate 84 /min Laura Older HOUSESMITH.DUMPER Work Phone: [facility] 03-31-2024 14:06-0400 Respiratory rate 16 /min Laura Older HOUSESMITH.DUMPER Work Phone: [facility] 03-31-2024 14:06-0400 SaO2% (BldA) [Mass fraction] 95 % Laura Older HOUSESMITH.DUMPER Work Phone: [facility] 03-31-2024 14:06-0400 Systolic blood pressure 128 mm[Hg] Laura Older HOUSESMITH.DUMPER Work Phone: [facility] 02-21-2024 08:15-0400 Body mass index (BMI) [Ratio] 22.39 kg/m2 Laura Older HOUSESMITH.DUMPER Work Phone: [facility] 02-21-2024 08:15-0400 Body weight 56.25 kg Laura Older HOUSESMITH.DUMPER Work Phone: [facility] 02-21-2024 08:15-0400 Diastolic blood pressure 80 mm[Hg] Laura Older HOUSESMITH.DUMPER Work Phone: [facility] 02-21-2024 08:15-0400 Heart rate 88 /min Laura Older HOUSESMITH.DUMPER Work Phone: [facility] 02-21-2024 08:15-0400 Respiratory rate 16 /min Laura Older HOUSESMITH.DUMPER Work Phone: [facility] 02-21-2024 08:15-0400 SaO2% (BldA) [Mass fraction] 96 % Laura Older HOUSESMITH.DUMPER Work Phone: [facility] 02-21-2024 08:15-0400 Systolic blood pressure 128 mm[Hg] Laura Older HOUSESMITH.DUMPER Work Phone: [facility] 02-14-2024 07:24-0400 Body mass index (BMI) [Ratio] 22.39 kg/m2 Laura Older HOUSESMITH.DUMPER Work Phone: [facility] 02-14-2024 07:24-0400 Body weight 56.25 kg Laura Older HOUSESMITH.DUMPER Work Phone: [facility] 02-14-2024 07:24-0400 Diastolic blood pressure 80 mm[Hg] Laura Older HOUSESMITH.DUMPER Work Phone: [facility] 02-14-2024 07:24-0400 Heart rate 90 /min Laura Older HOUSESMITH.DUMPER Work Phone: [facility] 02-14-2024 07:24-0400 Respiratory rate 16 /min Laura Older HOUSESMITH.DUMPER Work Phone: [facility] 02-14-2024 07:24-0400 SaO2% (BldA) [Mass fraction] 97 % Laura Older HOUSESMITH.DUMPER Work Phone: [facility] 02-14-2024 07:24-0400 Systolic blood pressure 120 mm[Hg] Laura Older HOUSESMITH.DUMPER Work Phone: [facility] 01-16-2024 07:45-0400 Body mass index (BMI) [Ratio] 22.57 kg/m2 Laura Older HOUSESMITH.DUMPER Work Phone: [facility] 01-16-2024 07:45-0400 Body weight 56.7 kg Laura Older HOUSESMITH.DUMPER Work Phone: [facility] 01-16-2024 07:45-0400 Diastolic blood pressure 79 mm[Hg] Laura Older HOUSESMITH.DUMPER Work Phone: [facility] 01-16-2024 07:45-0400 Heart rate 91 /min Laura Older HOUSESMITH.DUMPER Work Phone: [facility] 01-16-2024 07:45-0400 Respiratory rate 16 /min Laura Older HOUSESMITH.DUMPER Work Phone: [facility] 01-16-2024 07:45-0400 SaO2% (BldA) [Mass fraction] 96 % Laura Older HOUSESMITH.DUMPER Work Phone: [facility] 01-16-2024 07:45-0400 Systolic blood pressure 120 mm[Hg] Laura Older HOUSESMITH.DUMPER Work Phone: [facility] 2023 09:37-0400 Body mass index (BMI) [Ratio] 22.75 kg/m2 Laura Older HOUSESMITH.DUMPER Work Phone: [facility] 2023 09:37-0400 Body weight 57.15 kg Laura Older HOUSESMITH.DUMPER Work Phone: [facility] 2023 09:37-0400 Diastolic blood pressure 74 mm[Hg] Laura Older HOUSESMITH.DUMPER Work Phone: [facility] 2023 09:37-0400 Heart rate 84 /min Laura Older HOUSESMITH.DUMPER Work Phone: [facility] 2023 09:37-0400 Respiratory rate 16 /min Laura Older HOUSESMITH.DUMPER Work Phone: [facility] 2023 09:37-0400 SaO2% (BldA) [Mass fraction] 96 % Laura Older HOUSESMITH.DUMPER Work Phone: [facility] 2023 09:37-0400 Systolic blood pressure 122 mm[Hg] Laura Older HOUSESMITH.DUMPER Work Phone: [facility] 11-01-2023 07:05-0400 Body mass index (BMI) [Ratio] 24.01 kg/m2 María Elena Felicia HOUSESMITH.DUMPER Work Phone: [facility] 11-01-2023 07:05-0400 Body weight 60.33 kg María Elena Felicia HOUSESMITH.DUMPER Work Phone: [facility] 11-01-2023 07:05-0400 Diastolic blood pressure 86 mm[Hg] María Elena Felicia HOUSESMITH.DUMPER Work Phone: [facility] 11-01-2023 07:05-0400 Heart rate 84 /min María Elena Felicia HOUSESMITH.DUMPER Work Phone: [facility] 11-01-2023 07:05-0400 Respiratory rate 18 /min María Elena Felicia HOUSESMITH.DUMPER Work Phone: [facility] 11-01-2023 07:05-0400 SaO2% (BldA) [Mass fraction] 94 % María Elena Felicia HOUSESMITH.DUMPER Work Phone: [facility] 11-01-2023 07:05-0400 Systolic blood pressure 126 mm[Hg] María Elena Felicia HOUSESMITH.DUMPER Work Phone: [facility] 10-25-2023 09:22-0400 Body height 158.5 cm Carin Roldan MD Work Phone: [facility] 10-25-2023 09:22-0400 Body weight 58.51 kg Carin Roldan MD Work Phone: [facility] 10-25-2023 09:22-0400 Diastolic blood pressure 74 mm[Hg] Carin Roldan MD Work Phone: [facility] 10-25-2023 09:22-0400 Systolic blood pressure 116 mm[Hg] Carin Roldan MD Work Phone: [facility] 10-17-2023 09:38-0400 Body weight 59.42 kg Laura Older HOUSESMITH.DUMPER Work Phone: [facility] 10-17-2023 09:38-0400 Diastolic blood pressure 78 mm[Hg] Laura Older HOUSESMITH.DUMPER Work Phone: [facility] 10-17-2023 09:38-0400 Heart rate 80 /min Laura Older HOUSESMITH.DUMPER Work Phone: [facility] 10-17-2023 09:38-0400 Respiratory rate 16 /min Laura Older HOUSESMITH.DUMPER Work Phone: [facility] 10-17-2023 09:38-0400 SaO2% (BldA) [Mass fraction] 97 % Laura Older HOUSESMITH.DUMPER Work Phone: [facility] 10-17-2023 09:38-0400 Systolic blood pressure 118 mm[Hg] Laura Older HOUSESMITH.DUMPER Work Phone: [facility] 09-18-2023 09:00-0400 Diastolic blood pressure 70 mm[Hg] Laura Older HOUSESMITH.DUMPER Work Phone: [facility] 09-18-2023 09:00-0400 Systolic blood pressure 122 mm[Hg] Laura Older HOUSESMITH.DUMPER Work Phone: [facility] 09-18-2023 08:23-0400 Body temperature 96.8 [degF] Laura Older HOUSESMITH.DUMPER Work Phone: [facility] 09-18-2023 08:23-0400 Body weight 61.69 kg Laura Older HOUSESMITH.DUMPER Work Phone: [facility] 09-18-2023 08:23-0400 Heart rate 90 /min Laura Older HOUSESMITH.DUMPER Work Phone: [facility] 09-18-2023 08:23-0400 Respiratory rate 16 /min Laura Older HOUSESMITH.DUMPER Work Phone: [facility] 09-18-2023 08:23-0400 SaO2% (BldA) [Mass fraction] 96 % Laura Older HOUSESMITH.DUMPER Work Phone: [facility] 08-26-2023 22:07-0500 Body temperature 97.3 [degF] POT ANNEALER-C LAURA OLDER Work Phone: [facility] 08-26-2023 22:07-0500 Diastolic blood pressure 93 mm[Hg] POT ANNEALER-C LAURA OLDER Work Phone: [facility] 08-26-2023 22:07-0500 Heart rate 105 /min POT ANNEALER-C LAURA OLDER Work Phone: [facility] 08-26-2023 22:07-0500 Respiratory rate 16 /min POT ANNEALER-C LAURA OLDER Work Phone: [facility] 08-26-2023 22:07-0500 SaO2% (BldA) [Mass fraction] 99 % POT ANNEALER-C LAURA OLDER Work Phone: [facility] 08-26-2023 22:07-0500 Systolic blood pressure 128 mm[Hg] POT ANNEALER-C LAURA OLDER Work Phone: [facility] 08-26-2023 18:37-0500 Body height 154.94 cm POT ANNEALER-C LAURA OLDER Work Phone: [facility] 08-26-2023 18:37-0500 Body mass index (BMI) [Ratio] 25.5 kg/m2 POT ANNEALER-C LAURA OLDER Work Phone: [facility] 08-26-2023 18:37-0500 Body weight 61.37 kg POT ANNEALER-C LAURA BELEN Work Phone: [facility] 08-14-2023 08:18-0500 Body temperature 97.11 [degF] María Elena LloydFelicia HOUSESMITH.DUMPER Work Phone: [facility] 08-14-2023 08:18-0500 Body weight 59.88 kg María Elena LloydFelicia HOUSESMITH.DUMPER Work Phone: [facility] 08-14-2023 08:18-0500 Diastolic blood pressure 66 mm[Hg] María Elena Felicia HOUSESMITH.DUMPER Work Phone: [facility] 08-14-2023 08:18-0500 Heart rate 92 /min María Elena LloydFelicia HOUSESMITH.DUMPER Work Phone: [facility] 08-14-2023 08:18-0500 Respiratory rate 16 /min María Elena LloydFelicia HOUSESMITH.DUMPER Work Phone: [facility] 08-14-2023 08:18-0500 SaO2% (BldA) [Mass fraction] 95 % María Elena Duarte HOUSESMITH.DUMPER Work Phone: [facility] 08-14-2023 08:18-0500 Systolic blood pressure 106 mm[Hg] María Elena VallesFelicia HOUSESMITH.DUMPER Work Phone: [facility] 08-09-2023 12:48-0500 Body height 154.9 cm Abbeymerry Ortaf PA-C Work Phone: [facility] 08-09-2023 12:48-0500 Body temperature 96.3 [degF] Abbey Duck Key PA-C Work Phone: [facility] 08-09-2023 12:48-0500 Body weight 59.24 kg Abbey Nuno PA-C Work Phone: [facility] 08-09-2023 12:48-0500 Diastolic blood pressure 78 mm[Hg] Abbey [place] PA-C Work Phone: [facility] 08-09-2023 12:48-0500 Heart rate 113 /min Abbeymerry Ortaf PA-C Work Phone: [facility] 08-09-2023 12:48-0500 SaO2% (BldA) [Mass fraction] 96 % Abbeymerry Ortaf PA-C Work Phone: [facility] 08-09-2023 12:48-0500 Systolic blood pressure 112 mm[Hg] Abbeymerry Ortaf PA-C Work Phone: [facility] 07-18-2023 10:09-0500 Body weight 59.42 kg Laura Older HOUSESMITH.DUMPER Work Phone: [facility] 07-18-2023 10:09-0500 Diastolic blood pressure 70 mm[Hg] Laura Older HOUSESMITH.DUMPER Work Phone: [facility] 07-18-2023 10:09-0500 Heart rate 92 /min Laura Older HOUSESMITH.DUMPER Work Phone: [facility] 07-18-2023 10:09-0500 Respiratory rate 16 /min Laura Older HOUSESMITH.DUMPER Work Phone: [facility] 07-18-2023 10:09-0500 SaO2% (BldA) [Mass fraction] 97 % Laura Older HOUSESMITH.DUMPER Work Phone: [facility] 07-18-2023 10:09-0500 Systolic blood pressure 122 mm[Hg] Laura Older HOUSESMITH.DUMPER Work Phone: [facility] 06-08-2023 11:35-0500 Body weight 59.88 kg Laura Older HOUSESMITH.DUMPER Work Phone: [facility] 06-08-2023 11:35-0500 Diastolic blood pressure 80 mm[Hg] Laura Older HOUSESMITH.DUMPER Work Phone: [facility] 06-08-2023 11:35-0500 Heart rate 84 /min Laura Older HOUSESMITH.DUMPER Work Phone: [facility] 06-08-2023 11:35-0500 Respiratory rate 16 /min Laura Older HOUSESMITH.DUMPER Work Phone: [facility] 06-08-2023 11:35-0500 Systolic blood pressure 120 mm[Hg] Laura Older HOUSESMITH.DUMPER Work Phone: [facility] 05-18-2023 19:37-0500 Diastolic blood pressure 87 mm[Hg] POT ANNEALER-C LAURA OLDER Work Phone: [facility] 05-18-2023 19:37-0500 Heart rate 73 /min POT ANNEALER-C LAURA OLDER Work Phone: [facility] 05-18-2023 19:37-0500 SaO2% (BldA) [Mass fraction] 98 % POT ANNEALER-C LAURA OLDER Work Phone: [facility] 05-18-2023 19:37-0500 Systolic blood pressure 127 mm[Hg] POT ANNEALER-C LAURA OLDER Work Phone: [facility] 05-18-2023 18:50-0500 Respiratory rate 12 /min POT ANNEALER-C LAURA OLDER Work Phone: [facility] 05-18-2023 16:06-0500 Body mass index (BMI) [Ratio] 24.9 kg/m2 POT ANNEALER-C LAURA OLDER Work Phone: [facility] 05-18-2023 16:06-0500 Body temperature 96.8 [degF] POT ANNEALER-C LAURA OLDER Work Phone: [facility] 05-18-2023 16:06-0500 Body weight 59.8 kg POT ANNEALER-C LAURA OLDER Work Phone: [facility] 05-04-2023 13:56-0400 Body weight 60.33 kg Renetta Kline HOUSESMITH.ANDROID DEVELOPER Work Phone: [facility] 05-04-2023 13:56-0400 Diastolic blood pressure 80 mm[Hg] Renetta Kline HOUSESMITH.ANDROID DEVELOPER Work Phone: [facility] 05-04-2023 13:56-0400 Heart rate 91 /min Renetta Kline HOUSESMITH.ANDROID DEVELOPER Work Phone: [facility] 05-04-2023 13:56-0400 Respiratory rate 16 /min Renetta Kline HOUSESMITH.ANDROID DEVELOPER Work Phone: [facility] 05-04-2023 13:56-0400 Systolic blood pressure 121 mm[Hg] Renetta Kline HOUSESMITH.ANDROID DEVELOPER Work Phone: [facility] 05-04-2023 12:50-0400 Body height 154.94 cm POT ANNEALER-C LAURA OLDER Work Phone: [facility] 05-04-2023 12:50-0400 Body weight 58.96 kg POT ANNEALER-C LAURA OLDER Work Phone: [facility] 05-04-2023 12:50-0400 Heart rate 88 /min POT ANNEALER-C LAURA OLDER Work Phone: [facility] 05-04-2023 12:50-0400 SaO2% (BldA) [Mass fraction] 97 % POT ANNEALER-C LAURA OLDER Work Phone: [facility] 05-03-2023 06:37-0400 Body mass index (BMI) [Ratio] 24.5 kg/m2 POT ANNEALER-C LAURA OLDER Work Phone: [facility] 05-03-2023 06:37-0400 Body temperature 97.3 [degF] POT ANNEALER-C LAURA OLDER Work Phone: [facility] 05-03-2023 06:37-0400 Body weight 58.96 kg POT ANNEALER-C LAURA OLDER Work Phone: [facility] 05-03-2023 06:37-0400 Diastolic blood pressure 77 mm[Hg] POT ANNEALER-C LAURA OLDER Work Phone: [facility] 05-03-2023 06:37-0400 Heart rate 87 /min POT ANNEALER-C LAURA OLDER Work Phone: [facility] 05-03-2023 06:37-0400 Respiratory rate 18 /min POT ANNEALER-C LAURA OLDER Work Phone: [facility] 05-03-2023 06:37-0400 SaO2% (BldA) [Mass fraction] 95 % POT ANNEALER-C LAURA OLDER Work Phone: [facility] 05-03-2023 06:37-0400 Systolic blood pressure 115 mm[Hg] POT ANNEALER-C LAURA OLDER Work Phone: [facility] 03-23-2023 07:18-0400 Body temperature 96.91 [degF] Laura Older HOUSESMITH.DUMPER Work Phone: [facility] 03-23-2023 07:18-0400 Body weight 59.06 kg Laura Older HOUSESMITH.DUMPER Work Phone: [facility] 03-23-2023 07:18-0400 Diastolic blood pressure 80 mm[Hg] Laura Older HOUSESMITH.DUMPER Work Phone: [facility] 03-23-2023 07:18-0400 Heart rate 78 /min Laura Older HOUSESMITH.DUMPER Work Phone: [facility] 03-23-2023 07:18-0400 Respiratory rate 16 /min Laura Older HOUSESMITH.DUMPER Work Phone: [facility] 03-23-2023 07:18-0400 SaO2% (BldA) [Mass fraction] 99 % Laura Older HOUSESMITH.DUMPER Work Phone: [facility] 03-23-2023 07:18-0400 Systolic blood pressure 130 mm[Hg] Laura Older HOUSESMITH.DUMPER Work Phone: [facility] 03-05-2023 09:35-0400 Body height 154.9 cm Khanh Mata MD Work Phone: [facility] 03-05-2023 09:35-0400 Body weight 58.79 kg Khanh Mata MD Work Phone: [facility] 03-05-2023 09:35-0400 Diastolic blood pressure 74 mm[Hg] Khanh Mata MD Work Phone: [facility] 03-05-2023 09:35-0400 Heart rate 78 /min Khanh Mata MD Work Phone: [facility] 03-05-2023 09:35-0400 Systolic blood pressure 118 mm[Hg] Khanh Mata MD Work Phone: [facility] 02-19-2023 11:00-0400 Body temperature 96.4 [degF] POT ANNEALER-C LAURA OLDER Work Phone: [facility] 02-19-2023 11:00-0400 Diastolic blood pressure 86 mm[Hg] POT ANNEALER-C LAURA OLDER Work Phone: [facility] 02-19-2023 11:00-0400 Heart rate 87 /min POT ANNEALER-C LAURA OLDER Work Phone: [facility] 02-19-2023 11:00-0400 Respiratory rate 18 /min POT ANNEALER-C LAURA OLDER Work Phone: [facility] 02-19-2023 11:00-0400 SaO2% (BldA) [Mass fraction] 96 % POT ANNEALER-C LAURA OLDER Work Phone: [facility] 02-19-2023 11:00-0400 Systolic blood pressure 125 mm[Hg] POT ANNEALER-C LAURA OLDER Work Phone: [facility] 01-24-2023 07:54-0400 Body mass index (BMI) [Ratio] 24 kg/m2 POT ANNEALER-C LAURA OLDER Work Phone: [facility] 01-24-2023 07:54-0400 Body temperature 97.2 [degF] POT ANNEALER-C LAURA OLDER Work Phone: [facility] 01-24-2023 07:54-0400 Body weight 57.6 kg POT ANNEALER-C LAURA OLDER Work Phone: [facility] 01-24-2023 07:54-0400 Diastolic blood pressure 86 mm[Hg] POT ANNEALER-C LAURA OLDER Work Phone: [facility] 01-24-2023 07:54-0400 Heart rate 90 /min POT ANNEALER-C LAURA OLDER Work Phone: [facility] 01-24-2023 07:54-0400 Respiratory rate 18 /min POT ANNEALER-C LAURA OLDER Work Phone: [facility] 01-24-2023 07:54-0400 SaO2% (BldA) [Mass fraction] 94 % POT ANNEALER-C LAURA OLDER Work Phone: [facility] 01-24-2023 07:54-0400 Systolic blood pressure 135 mm[Hg] POT ANNEALER-C LAURA OLDER Work Phone: [facility] 01-12-2023 11:44-0400 Diastolic blood pressure 64 mm[Hg] Allison Montoya MD Work Phone: [facility] 01-12-2023 11:44-0400 Heart rate 83 /min Allison Montoya MD Work Phone: [facility] 01-12-2023 11:44-0400 Respiratory rate 16 /min Allison Montoya MD Work Phone: [facility] 01-12-2023 11:44-0400 SaO2% (BldA) [Mass fraction] 92 % Allison Montoya MD Work Phone: [facility] 01-12-2023 11:44-0400 Systolic blood pressure 132 mm[Hg] Allison Montoya MD Work Phone: [facility] 01-12-2023 10:03-0400 Body temperature 97.2 [degF] Allison Montoya MD Work Phone: [facility] 12-13-2022 06:25-0400 Body height 154.94 cm POT ANNEALER-C Mickey Valencia POT ANNEALER Work Phone: [facility] 12-13-2022 06:25-0400 Body mass index (BMI) [Ratio] 24.3 kg/m2 POT ANNEALER-C Mickey Valencia POT ANNEALER Work Phone: [facility] 12-13-2022 06:25-0400 Body temperature 97.6 [degF] POT ANNEALER-C Mickey Valencia POT ANNEALER Work Phone: [facility] 12-13-2022 06:25-0400 Body weight 58.51 kg POT ANNEALER-C Mickey Valencia POT ANNEALER Work Phone: [facility] 12-13-2022 06:25-0400 Diastolic blood pressure 76 mm[Hg] POT ANNEALER-C Mickey Valencia POT ANNEALER Work Phone: [facility] 12-13-2022 06:25-0400 Heart rate 92 /min POT ANNEALER-C Mickey Valencia POT ANNEALER Work Phone: [facility] 12-13-2022 06:25-0400 Respiratory rate 16 /min POT ANNEALER-C Mickey Valencia POT ANNEALER Work Phone: [facility] 12-13-2022 06:25-0400 SaO2% (BldA) [Mass fraction] 95 % POT ANNEALER-C Mickey Valencia POT ANNEALER Work Phone: [facility] 12-13-2022 06:25-0400 Systolic blood pressure 107 mm[Hg] POT ANNEALER-C Mickey Valencia POT ANNEALER Work Phone: [facility] 11-22-2022 07:53-0400 Body temperature 97.39 [degF] Laura Older HOUSESMITH.DUMPER Work Phone: [facility] 11-22-2022 07:53-0400 Body weight 60.33 kg Laura Older HOUSESMITH.DUMPER Work Phone: [facility] 11-22-2022 07:53-0400 Diastolic blood pressure 80 mm[Hg] Laura Older HOUSESMITH.DUMPER Work Phone: [facility] 11-22-2022 07:53-0400 Heart rate 86 /min Laura Older HOUSESMITH.DUMPER Work Phone: [facility] 11-22-2022 07:53-0400 Respiratory rate 16 /min Laura Older HOUSESMITH.DUMPER Work Phone: [facility] 11-22-2022 07:53-0400 SaO2% (BldA) [Mass fraction] 97 % Laura Older HOUSESMITH.DUMPER Work Phone: [facility] 11-22-2022 07:53-0400 Systolic blood pressure 118 mm[Hg] Laura Hernandez APRN.CNP Work Phone: [facility] 10-29-2022 13:35-0400 Body height 154.[address] Amanda Wallace Work Phone: [facility] 10-29-2022 13:35-0400 Body mass index (BMI) [Ratio] 25.1 kg/m2 Dr. Amanda Wallace Work Phone: [facility] 10-29-2022 13:35-0400 Body temperature 96.9 [degF] Dr. Amanda Wallace Work Phone: [facility] 10-29-2022 13:35-0400 Body weight 60.[address] Amanda Wallace Work Phone: [facility] 10-29-2022 13:35-0400 Diastolic blood pressure 79 mm[Hg] Dr. Amanda Wallace Work Phone: [facility] 10-29-2022 13:35-0400 Heart rate 111 /min Dr. Amanda Wallace Work Phone: [facility] 10-29-2022 13:35-0400 Respiratory rate 18 /min Dr. Amanda Wallace Work Phone: [facility] 10-29-2022 13:35-0400 SaO2% (BldA) [Mass fraction] 100 % Dr. Amanda Wallace Work Phone: [facility] 10-29-2022 13:35-0400 Systolic blood pressure 118 mm[Hg] Dr. Amanda Wallace Work Phone: [facility] 10-26-2022 10:38-0400 Body height 157.5 cm Roselyn Tobar PA-C Work Phone: [facility] 10-26-2022 10:38-0400 Body weight 58.51 kg Roselyn KEENE-C Work Phone: [facility] 10-26-2022 10:38-0400 Diastolic blood pressure 70 mm[Hg] Roselyn Cantuka PA-C Work Phone: [facility] 10-26-2022 10:38-0400 Heart rate 90 /min Roselyn Kalka PA-C Work Phone: [facility] 10-26-2022 10:38-0400 Systolic blood pressure 108 mm[Hg] Roselyn Kalka PA-C Work Phone: [facility] 10-05-2022 08:16-0400 Body temperature 97.11 [degF] Laura Older HOUSESMITH.DUMPER Work Phone: [facility] 10-05-2022 08:16-0400 Body weight 62.14 kg Laura Older HOUSESMITH.DUMPER Work Phone: [facility] 10-05-2022 08:16-0400 Diastolic blood pressure 70 mm[Hg] Laura Older HOUSESMITH.DUMPER Work Phone: [facility] 10-05-2022 08:16-0400 Heart rate 84 /min Laura Older HOUSESMITH.DUMPER Work Phone: [facility] 10-05-2022 08:16-0400 Respiratory rate 16 /min Laura Older HOUSESMITH.DUMPER Work Phone: [facility] 10-05-2022 08:16-0400 SaO2% (BldA) [Mass fraction] 94 % Laura Older HOUSESMITH.DUMPER Work Phone: [facility] 10-05-2022 08:16-0400 Systolic blood pressure 112 mm[Hg] Laura Older HOUSESMITH.DUMPER Work Phone: [facility] 09-12-2022 14:17-0500 Diastolic blood pressure 68 mm[Hg] Charles Riggs MD Work Phone: [facility] 09-12-2022 14:17-0500 Heart rate 90 /min Charles Riggs MD Work Phone: [facility] 09-12-2022 14:17-0500 Respiratory rate 24 /min Charles Riggs MD Work Phone: [facility] 09-12-2022 14:17-0500 SaO2% (BldA) [Mass fraction] 94 % Charles Riggs MD Work Phone: [facility] 09-12-2022 14:17-0500 Systolic blood pressure 99 mm[Hg] Charles Riggs MD Work Phone: [facility] 09-12-2022 14:00-0500 Body temperature 97.81 [degF] Charles Riggs MD Work Phone: [facility] 08-16-2022 08:17-0500 Body height 157.5 cm Roselyn Kalka PA-C Work Phone: [facility] 08-16-2022 08:17-0500 Body weight 59.38 kg Roselyn Kalka PA-C Work Phone: [facility] 08-16-2022 08:17-0500 Diastolic blood pressure 74 mm[Hg] Roselyn Kalka PA-C Work Phone: [facility] 08-16-2022 08:17-0500 Heart rate 99 /min Roselyn Kalka PA-C Work Phone: [facility] 08-16-2022 08:17-0500 Systolic blood pressure 118 mm[Hg] Roselyn Kalka PA-C Work Phone: [facility] 08-14-2022 07:55-0500 Body mass index (BMI) [Ratio] 24.7 kg/m2 Dr. Amanda Wallace Work Phone: [facility] 08-14-2022 07:55-0500 Body temperature 97.7 [degF] Dr. Amanda Wallace Work Phone: [facility] 08-14-2022 07:55-0500 Body weight 59.[address] Amanda Wallace Work Phone: [facility] 08-14-2022 07:55-0500 Diastolic blood pressure 92 mm[Hg] Dr. Amanda Wallace Work Phone: [facility] 08-14-2022 07:55-0500 Heart rate 96 /min Dr. Amanda Wallace Work Phone: [facility] 08-14-2022 07:55-0500 Respiratory rate 20 /min Dr. Amanda Wallace Work Phone: [facility] 08-14-2022 07:55-0500 SaO2% (BldA) [Mass fraction] 93 % Dr. Amanda Wallace Work Phone: [facility] 08-14-2022 07:55-0500 Systolic blood pressure 143 mm[Hg] Dr. Amanda Wallace Work Phone: [facility] 08-10-2022 07:51-0500 Body temperature 97.3 [degF] Laura Older HOUSESMITH.DUMPER Work Phone: [facility] 08-10-2022 07:51-0500 Body weight 58.51 kg Laura Older HOUSESMITH.DUMPER Work Phone: [facility] 08-10-2022 07:51-0500 Diastolic blood pressure 72 mm[Hg] Laura Older HOUSESMITH.DUMPER Work Phone: [facility] 08-10-2022 07:51-0500 Heart rate 76 /min Laura Older HOUSESMITH.DUMPER Work Phone: [facility] 08-10-2022 07:51-0500 Respiratory rate 16 /min Laura Older HOUSESMITH.DUMPER Work Phone: [facility] 08-10-2022 07:51-0500 SaO2% (BldA) [Mass fraction] 99 % Laura Older HOUSESMITH.DUMPER Work Phone: [facility] 08-10-2022 07:51-0500 Systolic blood pressure 122 mm[Hg] Laura Older HOUSESMITH.DUMPER Work Phone: [facility] 07-13-2022 07:59-0500 Diastolic blood pressure 78 mm[Hg] Laura Older HOUSESMITH.DUMPER Work Phone: [facility] 07-13-2022 07:59-0500 Systolic blood pressure 118 mm[Hg] Laura Older HOUSESMITH.DUMPER Work Phone: [facility] 06-07-2022 15:05-0500 Body temperature 97.5 [degF] Laura Older HOUSESMITH.DUMPER Work Phone: [facility] 06-07-2022 15:05-0500 Diastolic blood pressure 72 mm[Hg] Laura Older HOUSESMITH.DUMPER Work Phone: [facility] 06-07-2022 15:05-0500 Heart rate 93 /min Laura Older HOUSESMITH.DUMPER Work Phone: [facility] 06-07-2022 15:05-0500 Respiratory rate 16 /min Laura Older HOUSESMITH.DUMPER Work Phone: [facility] 06-07-2022 15:05-0500 SaO2% (BldA) [Mass fraction] 95 % Laura Older HOUSESMITH.DUMPER Work Phone: [facility] 06-07-2022 15:05-0500 Systolic blood pressure 116 mm[Hg] Laura Older HOUSESMITH.DUMPER Work Phone: [facility] 05-31-2022 13:11-0500 Body temperature 97.7 [degF] Laura Older HOUSESMITH.DUMPER Work Phone: [facility] 05-31-2022 13:11-0500 Body weight 56.7 kg Laura Older HOUSESMITH.DUMPER Work Phone: [facility] 05-31-2022 13:11-0500 Diastolic blood pressure 70 mm[Hg] Laura Older HOUSESMITH.DUMPER Work Phone: [facility] 05-31-2022 13:11-0500 Heart rate 84 /min Laura Older HOUSESMITH.DUMPER Work Phone: [facility] 05-31-2022 13:11-0500 Respiratory rate 16 /min Laura Older HOUSESMITH.DUMPER Work Phone: [facility] 05-31-2022 13:11-0500 SaO2% (BldA) [Mass fraction] 94 % Laura Older HOUSESMITH.DUMPER Work Phone: [facility] 05-31-2022 13:11-0500 Systolic blood pressure 124 mm[Hg] Laura Older HOUSESMITH.DUMPER Work Phone: [facility] 04-12-2022 13:15-0400 Body weight 57.61 kg Laura Older HOUSESMITH.DUMPER Work Phone: [facility] 04-12-2022 13:15-0400 Diastolic blood pressure 72 mm[Hg] Laura Older HOUSESMITH.DUMPER Work Phone: [facility] 04-12-2022 13:15-0400 Heart rate 92 /min Laura Older HOUSESMITH.DUMPER Work Phone: [facility] 04-12-2022 13:15-0400 Respiratory rate 16 /min Laura Older HOUSESMITH.DUMPER Work Phone: [facility] 04-12-2022 13:15-0400 Systolic blood pressure 112 mm[Hg] Laura Older HOUSESMITH.DUMPER Work Phone: [facility] 03-29-2022 12:57-0400 Body weight 55.34 kg Laura Older HOUSESMITH.DUMPER Work Phone: [facility] 03-29-2022 12:57-0400 Diastolic blood pressure 78 mm[Hg] Laura Older HOUSESMITH.DUMPER Work Phone: [facility] 03-29-2022 12:57-0400 Heart rate 68 /min Laura Older HOUSESMITH.DUMPER Work Phone: [facility] 03-29-2022 12:57-0400 Respiratory rate 16 /min Laura Older HOUSESMITH.DUMPER Work Phone: [facility] 03-29-2022 12:57-0400 Systolic blood pressure 126 mm[Hg] Laura Older HOUSESMITH.DUMPER Work Phone: [facility] 03-16-2022 13:30-0400 Body weight 55.34 kg Laura Older HOUSESMITH.DUMPER Work Phone: [facility] 03-16-2022 13:30-0400 Diastolic blood pressure 76 mm[Hg] Laura Older HOUSESMITH.DUMPER Work Phone: [facility] 03-16-2022 13:30-0400 Heart rate 74 /min Laura Older HOUSESMITH.DUMPER Work Phone: [facility] 03-16-2022 13:30-0400 Respiratory rate 16 /min Laura Older HOUSESMITH.DUMPER Work Phone: [facility] 03-16-2022 13:30-0400 SaO2% (BldA) [Mass fraction] 99 % Laura Older HOUSESMITH.DUMPER Work Phone: [facility] 03-16-2022 13:30-0400 Systolic blood pressure 122 mm[Hg] Laura Older HOUSESMITH.DUMPER Work Phone: [facility] 02-27-2022 14:06-0400 Body weight 55.34 kg Laura Older HOUSESMITH.DUMPER Work Phone: [facility] 02-27-2022 14:06-0400 Diastolic blood pressure 74 mm[Hg] Laura Older HOUSESMITH.DUMPER Work Phone: [facility] 02-27-2022 14:06-0400 Heart rate 76 /min Laura Older HOUSESMITH.DUMPER Work Phone: [facility] 02-27-2022 14:06-0400 Respiratory rate 16 /min Laura Older HOUSESMITH.DUMPER Work Phone: [facility] 02-27-2022 14:06-0400 SaO2% (BldA) [Mass fraction] 95 % Laura Older HOUSESMITH.DUMPER Work Phone: [facility] 02-27-2022 14:06-0400 Systolic blood pressure 122 mm[Hg] Laura Older HOUSESMITH.DUMPER Work Phone: [facility] 02-09-2022 12:04-0400 Diastolic blood pressure 87 mm[Hg] Dr. Amanda Wallace Work Phone: [facility] Work Phone: 02-09-2022 12:04-0400 Heart rate 64 /min Dr. Amanda Wallace Work Phone: [facility] Work Phone: 02-09-2022 12:04-0400 Respiratory rate 16 /min Dr. Amanda Wallace Work Phone: [facility] Work Phone: 02-09-2022 12:04-0400 SaO2% (BldA) [Mass fraction] 96 % Dr. Amanda Wallace Work Phone: [facility] Work Phone: 02-09-2022 12:04-0400 Systolic blood pressure 146 mm[Hg] Dr. Amanda Wallace Work Phone: [facility] Work Phone: 02-09-2022 09:58-0400 Body height 154.[address] Amanda Wallace Work Phone: [facility] Work Phone: 02-09-2022 09:58-0400 Body mass index (BMI) [Ratio] 23.5 kg/m2 Dr. Amanda Wallace Work Phone: [facility] Work Phone: 02-09-2022 09:58-0400 Body temperature 97.3 [degF] Dr. Amanda Wallace Work Phone: [facility] Work Phone: 02-09-2022 09:58-0400 Body weight 56.[address] Amanda Wallace Work Phone: [facility] Work Phone: 01-12-2022 09:16-0400 Body weight 55.79 kg Laura Hernandez APRN.CNP Work Phone: [facility] 01-12-2022 09:16-0400 Diastolic blood pressure 76 mm[Hg] HOUSESMITH.DUMPER Work Phone: [facility] 01-12-2022 09:16-0400 Heart rate 82 /min Laura Older HOUSESMITH.DUMPER Work Phone: [facility] 01-12-2022 09:16-0400 Respiratory rate 16 /min Laura Older HOUSESMITH.DUMPER Work Phone: [facility] 01-12-2022 09:16-0400 SaO2% (BldA) [Mass fraction] 99 % Older HOUSESMITH.DUMPER Work Phone: [facility] 01-12-2022 09:16-0400 Systolic blood pressure 124 mm[Hg] HOUSESMITH.DUMPER Work Phone: [facility] 01-06-2022 10:18-0400 Body mass index (BMI) [Ratio] 23.2 kg/m2 Dr. Amanda Wallace Work Phone: [facility] Work Phone: 01-06-2022 10:18-0400 Body temperature 97.4 [degF] Dr. Amanda Wallace Work Phone: [facility] Work Phone: 01-06-2022 10:18-0400 Body weight 55.[address] Amanda Wallace Work Phone: [facility] Work Phone: 01-06-2022 10:18-0400 Diastolic blood pressure 89 mm[Hg] Dr. Amanda Wallace Work Phone: [facility] Work Phone: 01-06-2022 10:18-0400 Heart rate 80 /min Dr. Amanda Wallace Work Phone: [facility] Work Phone: 01-06-2022 10:18-0400 Respiratory rate 16 /min Dr. Amanda Wallace Work Phone: [facility] Work Phone: 01-06-2022 10:18-0400 SaO2% (BldA) [Mass fraction] 96 % Dr. Amanda Wallace Work Phone: [facility] Work Phone: 01-06-2022 10:18-0400 Systolic blood pressure 138 mm[Hg] Dr. Amanda Wallace Work Phone: [facility] Work Phone: 12-29-2021 08:39-0400 Body height 154.[address] Amanda Wallace Work Phone: [facility] Work Phone: 12-29-2021 08:39-0400 Body weight 56.[address] Amanda Wallace Work Phone: [facility] Work Phone: 12-29-2021 08:39-0400 Heart rate 78 /min Dr. Amanda Wallace Work Phone: [facility] Work Phone: 12-29-2021 08:39-0400 SaO2% (BldA) [Mass fraction] 96 % Dr. Amanda Wallace Work Phone: [facility] Work Phone: 12-09-2021 10:28-0400 Body mass index (BMI) [Ratio] 23.6 kg/m2 Dr. Amanda Wallace Work Phone: [facility] Work Phone: 12-09-2021 10:28-0400 Body temperature 97.4 [degF] Dr. Amanda Wallace Work Phone: [facility] Work Phone: 12-09-2021 10:28-0400 Body weight 56.[address] Amanda Wallace Work Phone: [facility] Work Phone: 12-09-2021 10:28-0400 Diastolic blood pressure 86 mm[Hg] Dr. Amanda Wallace Work Phone: [facility] Work Phone: 12-09-2021 10:28-0400 Heart rate 86 /min Dr. Amanda Wallace Work Phone: [facility] Work Phone: 12-09-2021 10:28-0400 Respiratory rate 16 /min Dr. Amanda Wallace Work Phone: [facility] Work Phone: 12-09-2021 10:28-0400 SaO2% (BldA) [Mass fraction] 97 % Dr. Amanda Wallace Work Phone: [facility] Work Phone: 12-09-2021 10:28-0400 Systolic blood pressure 135 mm[Hg] Dr. Amanda Wallace Work Phone: [facility] Work Phone: 11-28-2021 19:07-0400 Heart rate 97 /min [facility] Work Phone: 11-28-2021 19:07-0400 Respiratory rate 18 /min [facility] Work Phone: 11-28-2021 19:07-0400 SaO2% (BldA) [Mass fraction] 99 % [facility] Work Phone: 11-28-2021 15:36-0400 Body height 154.94 cm [facility] Work Phone: 11-28-2021 15:36-0400 Body mass index (BMI) [Ratio] 23.2 kg/m2 [facility] Work Phone: 11-28-2021 15:36-0400 Body temperature 97.7 [degF] [facility] Work Phone: 11-28-2021 15:36-0400 Body weight 55.79 kg [facility] Work Phone: 11-28-2021 15:36-0400 Diastolic blood pressure 95 mm[Hg] [facility] Work Phone: 11-28-2021 15:36-0400 Systolic blood pressure 146 mm[Hg] [facility] Work Phone: 11-25-2021 15:32-0400 Body height 157.5 cm Dona Shadi HOUSESMITH.DUMPER Work Phone: [facility] 11-25-2021 15:32-0400 Body weight 55.88 kg Dona [place] H[employer]ESMITH[employer]DUMPER Work Phone: [facility] 11-25-2021 15:32-0400 Diastolic blood pressure 60 mm[Hg] Dona Shadi HOUSESMITH.DUMPER Work Phone: [facility] 11-25-2021 15:32-0400 Systolic blood pressure 110 mm[Hg] Dona [place] HOUSESMITH.DUMPER Work Phone: [facility] 11-25-2021 10:34-0400 Diastolic blood pressure 92 mm[Hg] Laura Older HOUSESMITH.DUMPER Work Phone: [facility] 11-25-2021 10:34-0400 Heart rate 60 /min Laura Older HOUSESMITH.DUMPER Work Phone: [facility] 11-25-2021 10:34-0400 Respiratory rate 20 /min Laura Older HOUSESMITH.DUMPER Work Phone: [facility] 11-25-2021 10:34-0400 SaO2% (BldA) [Mass fraction] 99 % Laura Older HOUSESMITH.DUMPER Work Phone: [facility] 11-25-2021 10:34-0400 Systolic blood pressure 138 mm[Hg] Laura Older HOUSESMITH.DUMPER Work Phone: [facility] 11-23-2021 14:07-0400 Body weight 56.25 kg Laura Older HOUSESMITH.DUMPER Work Phone: [facility] 11-23-2021 14:07-0400 Diastolic blood pressure 72 mm[Hg] Laura Older HOUSESMITH.DUMPER Work Phone: [facility] 11-23-2021 14:07-0400 Heart rate 72 /min Laura Older HOUSESMITH.DUMPER Work Phone: [facility] 11-23-2021 14:07-0400 Respiratory rate 16 /min Laura Older HOUSESMITH.DUMPER Work Phone: [facility] 11-23-2021 14:07-0400 SaO2% (BldA) [Mass fraction] 97 % Laura Older HOUSESMITH.DUMPER Work Phone: [facility] 11-23-2021 14:07-0400 Systolic blood pressure 130 mm[Hg] Laura Older HOUSESMITH.DUMPER Work Phone: [facility] 11-17-2021 12:51-0400 Body weight 55.34 kg Laura Older HOUSESMITH.DUMPER Work Phone: [facility] 11-17-2021 12:51-0400 Diastolic blood pressure 80 mm[Hg] Laura Older HOUSESMITH.DUMPER Work Phone: [facility] 11-17-2021 12:51-0400 Heart rate 72 /min Laura Older HOUSESMITH.DUMPER Work Phone: [facility] 11-17-2021 12:51-0400 Respiratory rate 16 /min Laura Older HOUSESMITH.DUMPER Work Phone: [facility] 11-17-2021 12:51-0400 SaO2% (BldA) [Mass fraction] 96 % Laura Older HOUSESMITH.DUMPER Work Phone: [facility] 11-17-2021 12:51-0400 Systolic blood pressure 118 mm[Hg] Laura Older HOUSESMITH.DUMPER Work Phone: [facility] 10-06-2021 09:57-0400 Diastolic blood pressure 83 mm[Hg] Charles Riggs MD Work Phone: [facility] 10-06-2021 09:57-0400 Heart rate 81 /min Charles Riggs MD Work Phone: [facility] 10-06-2021 09:57-0400 Respiratory rate 16 /min Charles Riggs MD Work Phone: [facility] 10-06-2021 09:57-0400 SaO2% (BldA) [Mass fraction] 97 % Charles Riggs MD Work Phone: [facility] 10-06-2021 09:57-0400 Systolic blood pressure 109 mm[Hg] Charles Riggs MD Work Phone: [facility] 10-06-2021 09:47-0400 Body temperature 97.2 [degF] Charles Riggs MD Work Phone: [facility] 10-05-2021 10:21-0400 Body height 154.9 cm Roselyn Kalka PA-C Work Phone: [facility] 10-05-2021 10:21-0400 Body weight 56.25 kg Roselyn Kalka PA-C Work Phone: [facility] 10-05-2021 10:21-0400 Diastolic blood pressure 70 mm[Hg] Roselyn Kalka PA-C Work Phone: [facility] 10-05-2021 10:21-0400 Heart rate 80 /min Roselyn Kalka PA-C Work Phone: [facility] 10-05-2021 10:21-0400 Systolic blood pressure 112 mm[Hg] Roselyn Kalka PA-C Work Phone: [facility] 08-09-2021 19:49-0500 Diastolic blood pressure 79 mm[Hg] [facility] Work Phone: 08-09-2021 19:49-0500 Heart rate 79 /min [facility] Work Phone: 08-09-2021 19:49-0500 Respiratory rate 16 /min [facility] Work Phone: 08-09-2021 19:49-0500 SaO2% (BldA) [Mass fraction] 97 % [facility] Work Phone: 08-09-2021 19:49-0500 Systolic blood pressure 116 mm[Hg] [facility] Work Phone: 08-09-2021 17:15-0500 Body mass index (BMI) [Ratio] 21.7 kg/m2 [facility] Work Phone: 08-09-2021 17:15-0500 Body temperature 97.1 [degF] [facility] Work Phone: 08-09-2021 17:15-0500 Body weight 52.16 kg [facility] Work Phone: Encounters Encounter Date Encounter Type Care Provider Facility Start: 02-24-2025 ambulatory LAURA OLDER Facility:[facility] Start: 02-17-2025 End: 02-17-2025 ambulatory Amanda Wallace MD Work Phone: Pharm [facility] Comment on above: Allied Health Visit (Medication Adherence Outreach/) Start: 02-13-2025 End: 02-13-2025 Patient encounter procedure Pelon Hamilton DO -[facility] Work Phone: Start: 02-13-2025 End: 02-13-2025 ambulatory LAURA OLDER POT ANNEALER-C Work Phone: [facility] Start: 02-06-2025 End: 02-06-2025 Patient encounter procedure CHELSEA Salinas -[facility] Work Phone: Start: 02-06-2025 End: 02-06-2025 ambulatory LAURA OLDER POT ANNEALER-C Work Phone: [facility] Start: 01-14-2025 End: 01-14-2025 Patient encounter procedure CHELSEA Salinas [facility] Work Phone: Start: 01-14-2025 End: 01-14-2025 ambulatory LAURA OLDER POT ANNEALER-C Work Phone: [facility] Start: 01-06-2025 End: 01-06-2025 Patient encounter procedure Pelon Hamilton [facility] Work Phone: Start: 01-06-2025 End: 01-07-2025 ambulatory LAURA HERNANDEZ POT ANNEALER-C Work Phone: [facility] Comment on above: Claritin Start: 01-05-2025 End: 01-05-2025 Telephone encounter Amanda Wallace MD Work Phone: [facility] Comment on above: Patient Update Start: 01-01-2025 End: 01-01-2025 ambulatory LAURA HERNANDEZ POT ANNEALER-C Work Phone: -Cat Scan [facility] Start: 01-01-2025 End: 01-01-2025 Patient encounter procedure Mickey Valencia POT ANNEALER-C -Cat Scan [facility] Work Phone: Start: 01-01-2025 End: 01-01-2025 [facility] LAURA HERNANDEZ Facility:[facility] Start: 12-29-2024 End: 12-29-2024 Office outpatient visit 25 minutes Laura Hernandez APRN.DUMPER Work Phone: [facility] Comment on above: 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 (Primary Dx); Gastro-esophageal reflux disease without esophagitis; Dysphagia, unspecified type; Chronic obstructive pulmonary disease, unspecified COPD type (HCC); Dependence on supplemental oxygen; History of Helicobacter pylori infection; Encounter for immunization Start: 12-29-2024 End: 12-29-2024 ambulatory AMANDA WALLACE Facility:[facility] Start: 12-25-2024 End: 12-29-2024 Refill Roselyn Tobar PA-C Work Phone: [facility] [place] Comment on above: Refill Request Start: 12-16-2024 End: 12-16-2024 ambulatory Jerry Huston PT Work Phone: [facility] Comment on above: RUE weakness; Axillary pain, right; Chronic right shoulder pain; Cervical radiculopathy Start: 12-10-2024 End: 12-10-2024 Telemedicine consultation with patient Laura Hernandez APRN.DUMPER Work Phone: [facility] Start: 12-10-2024 End: 12-10-2024 ambulatory Laura Hernandez APRN.DUMPER Work Phone: [facility] [place] Comment on above: Chronic migraine wit hout aura without status migrainosus, not intractable (Primary Dx); Acute intractable headache, unspecified headache type Start: 12-07-2024 End: 12-08-2024 Refill Heath Mar MD Work Phone: Orthopaedics Comment on above: Refill Request Start: 11-24-2024 End: 11-24-2024 Office outpatient visit 25 minutes Laura Hernandez APRN.DUMPER Work Phone: [facility] Comment on above: Chronic migraine wit hout aura without status migrainosus, not intractable (Primary Dx); Fibromyalgia; Enlarged lymph nodes; Chronic obstructive pulmonary disease, unspecified COPD type (HCC) Start: 11-24-2024 End: 11-24-2024 ambulatory [facility] Facility:[facility] Start: 11-21-2024 End: 11-21-2024 Telemedicine consultation with patient Olga Celis MS Work Phone: [facility] Start: 11-21-2024 End: 11-21-2024 ambulatory Olga Celis MS Work Phone: [facility] Comment on above: History of uterine c ancer (Primary Dx); Family history of ovarian cancer; Family history of breast cancer; History of skin cancer; Family history of pancreatic cancer; Family history of uterine cancer; Family history of brain cancer Start: 11-20-2024 End: 11-20-2024 Patient encounter procedure Melanie Shook MD Work Phone: General Surgery Comment on above: Lymphadenopathy (Emi maricarmen Dx); Pain in right arm; Localized enlarged lymph nodes; Radiculopathy, cervical region; Encounter for follow-up examination after completed treatment for conditions other than malignant neoplasm; Brittle bone disease (HCC) Start: 11-20-2024 End: 11-20-2024 ambulatory MELANIE SHOOK Facility:[facility] Start: 11-18-2024 ambulatory MELANIE SHOOK [facility] ity:[facility] Start: 11-18-2024 End: 11-18-2024 Subsequent hospital visit by physician Latonia [facility] (I-Stat) Work Phone: Cat Scan Comment on above: Right axillary swell ing [M79.89] Start: 11-07-2024 End: 11-07-2024 E-mail encounter from caregiver Olga Celis MS Work Phone: [facility] Start: 11-07-2024 End: 01-07-2025 Follow-up encounter Laura Hernandez APRN.DUMPER Work Phone: Family Medicine [facility] Start: 11-07-2024 End: 11-07-2024 Patient encounter procedure Olga Celis MS Work Phone: [facility] Comment on above: Genetic counseling a ppointment Start: 11-06-2024 End: 11-06-2024 Patient encounter procedure Melanie Shook MD Work Phone: General Surgery Comment on above: Right axillary swell ing Start: 11-06-2024 End: 11-06-2024 ambulatory [facility] Facility:[facility] Start: 11-06-2024 End: 11-06-2024 Office outpatient visit 15 minutes Laura Hernandez APRN.DUMPER Work Phone: Internal Medicine [place] Comment on above: Chronic obstructive pulmonary disease, unspecified COPD type (HCC) (Primary Dx); Medication management Start: 11-06-2024 End: 11-06-2024 ambulatory [facility] Facility:[facility] Start: 11-03-2024 End: 01-03-2025 Follow-up encounter Carin Roldan MD Work Phone: OB/Gynecology Start: 10-31-2024 End: 10-31-2024 [facility] Facility:[facility] Start: 10-31-2024 Encounter for gynecological examination (general) (routine) without abnormal findings DEEP RAMIRES [facility] Start: 10-31-2024 End: 10-31-2024 ambulatory [facility] Facility:[facility] Start: 10-13-2024 End: 10-13-2024 ambulatory LAURA HERNANDEZ Facility:[facility] Start: 10-13-2024 End: 10-13-2024 Patient encounter procedure Heath Mar MD Work Phone: Orthopaedics Comment on above: Cervical radiculopat hy (Primary Dx); RUE weakness; Axillary pain, right; Chronic right shoulder pain; Cervical disc disorder with radiculopathy of cervical region; Age-related osteoporosis without current pathological fracture Start: 10-07-2024 End: 10-07-2024 Patient encounter procedure Pelondionne Hamilton [facility] Work Phone: Start: 10-07-2024 End: 10-07-2024 ambulatory Pelon Hamilton [place] Start: 10-01-2024 End: 10-01-2024 ambulatory Amanda Wallace MD Work Phone: Pharm [facility] Comment on above: Allied Health Visit (Medication Adherence Outreach/) Start: 09-08-2024 End: 09-08-2024 ambulatory AMANDA WALLACE Facility:[facility] Start: 09-08-2024 End: 09-08-2024 Patient encounter procedure Laura Hrenandez APRN.DUMPER Work Phone: Internal Medicine [place] Comment on above: Acute intractable he adache, unspecified headache type (Primary Dx); Migraine without status migrainosus, not intractable, unspecified migraine type; RUE weakness; Axillary pain, right; Chronic right shoulder pain Start: 08-26-2024 End: 08-26-2024 ambulatory Mickey Valencia NP Facility:[facility] Start: 08-21-2024 End: 08-21-2024 [facility] Start: 08-21-2024 End: 08-21-2024 Patient encounter procedure Laura Hernandez APRN.DUMPER Work Phone: Internal Medicine [place] Comment on above: Acute intractable he adache, unspecified headache type (Primary Dx); Migraine without status migrainosus, not intractable, unspecified migraine type Start: 08-20-2024 End: 08-20-2024 ambulatory Amanda Wallace MD Work Phone: Internal Medicine [place] Comment on above: Headaches Start: 08-11-2024 End: 08-11-2024 ambulatory LAURA OLDER [place] Start: 08-08-2024 End: 08-08-2024 ambulatory Jas KEENE [place] Start: 08-04-2024 End: 08-04-2024 ambulatory [facility] Facility:[facility] Start: 08-02-2024 End: 08-02-2024 ambulatory [facility] Facility:[facility] Start: 08-02-2024 End: 08-02-2024 Office outpatient visit 25 minutes Weston Strickland MD Work Phone: [facility] Comment on above: Asthma with COPD wit h exacerbation (HCC) (Primary Dx) Start: 07-31-2024 End: 08-01-2024 Refill Laura Older HOUSESMITH.DUMPER Work Phone: Internal Medicine [place] Comment on above: Refill Request Start: 06-06-2024 End: 06-06-2024 Refill Laura Older HOUSESMITH.DUMPER Work Phone: [facility] Comment on above: Refill Request Start: 05-26-2024 End: 05-26-2024 Telephone encounter Laura Older HOUSESMITH.DUMPER Work Phone: [facility] [place] Comment on above: Results Start: 05-24-2024 End: 06-04-2024 ambulatory Laura Older HOUSESMITH.DUMPER Work Phone: Internal Medicine [place] Comment on above: Infusion Start: 05-23-2024 End: 05-23-2024 ambulatory [facility] Facility:[facility] Start: 05-23-2024 End: 05-23-2024 Patient encounter procedure Laura Older HOUSESMITH.DUMPER Work Phone: Internal Medicine [place] Comment on above: Osteopenia, unspecif ied location (Primary Dx); Cervicalgia; Muscle tightness; Medication management Start: 05-15-2024 End: 05-15-2024 ambulatory LAURA OLDER [place] Start: 05-01-2024 End: 05-01-2024 ambulatory Carin Roldan MD Work Phone: OB/Gynecology Comment on above: Cervical cancer scre ening Start: 05-01-2024 End: 05-01-2024 Telephone encounter Amanda Wallace MD Work Phone: [facility] Comment on above: Patient Update; Kori ent Question Start: 05-01-2024 End: 05-01-2024 ambulatory [facility] Facility:[facility] Start: 04-16-2024 End: 04-16-2024 ambulatory Katty Maurer Facility:[facility] Start: 04-14-2024 End: 04-14-2024 ambulatory [facility] [place] Start: 04-09-2024 End: 04-09-2024 ambulatory [facility] Facility:[facility] Start: 04-07-2024 End: 04-07-2024 ambulatory AMANDA WALLACE Facility:[facility] Start: 04-07-2024 End: 04-07-2024 Patient encounter procedure Mickey López MD Work Phone: Cardiology Comment on above: Syncope, unspecified syncope type (Primary Dx); Stenosis of carotid artery, unspecified laterality Start: 04-05-2024 End: 04-05-2024 [facility] Facility:[facility] Start: 04-03-2024 End: 04-04-2024 [facility] Facility:[facility] Start: 03-31-2024 End: 03-31-2024 Subsequent hospital visit by physician Luisito [facility] Work Phone: Radiology Comment on above: COPD with exacerbati on (HCC) [J44.1] Start: 03-31-2024 End: 03-31-2024 ambulatory [facility] Facility:[facility] Start: 03-31-2024 End: 03-31-2024 Patient encounter procedure Laura Hernandez APRN.CNP Work Phone: [facility] Comment on above: Syncope, unspecified syncope type (Primary Dx); COPD with exacerbation (HCC); Wheezing; Shortness of breath Start: 03-25-2024 End: 03-25-2024 Refill Roselyn Tobar PA-C Work Phone: [facility] [place] Comment on above: Refill Request Start: 03-25-2024 End: 03-25-2024 ambulatory [facility] Facility:[facility] Start: 03-25-2024 End: 03-25-2024 Subsequent hospital visit by physician Latonia [facility] (I-Stat) Work Phone: Cat Scan Comment on above: Syncope and collapse [R55] Start: 03-14-2024 End: 03-14-2024 ambulatory LAURA OLDER [place] Start: 03-14-2024 End: 03-14-2024 ambulatory Pelon Friend Facility:[facility] Start: 02-28-2024 End: 03-16-2024 Telephone encounter Amanda Wallace MD Work Phone: [facility] Comment on above: Results Start: 02-26-2024 End: 02-26-2024 ambulatory Lalita Nieves RN Cardiology Lab Start: 02-26-2024 End: 02-26-2024 Subsequent hospital visit by physician [facility] Work Phone: Cardiology Lab Start: 02-21-2024 Telephone encounter Roselyn dunlap PA-C Work Phone: [facility] [place] Comment on above: [employer] - O ther Start: 02-21-2024 End: 02-21-2024 Subsequent hospital visit by physician Luisito [facility] Work Phone: Radiology Comment on above: Pain in left hernandez [M 79.662] Start: 02-21-2024 End: 02-21-2024 ambulatory AMANDA SHAINA Facility:[facility] Start: 02-21-2024 End: 02-21-2024 Patient encounter procedure Laura Older HOUSESMITH.DUMPER Work Phone: Internal Medicine [place] Comment on above: COPD with exacerbati on (HCC) (Primary Dx); Pain in left hernandez Start: 02-14-2024 End: 02-14-2024 Subsequent hospital visit by physician Luisito [facility] Work Phone: Radiology Comment on above: COPD with exacerbati on (HCC) [J44.1] Start: 02-14-2024 End: 02-14-2024 Patient encounter procedure Laura Older HOUSESMITH.DUMPER Work Phone: [facility] Comment on above: COPD with exacerbati on (HCC) (Primary Dx); Shortness of breath; Headaches; Increased sputum production; Syncope, unspecified syncope type Start: 02-01-2024 Telephone encounter Lalita Griffin RN Cardiology Lab Comment on above: Opened In Error Start: 01-16-2024 End: 01-16-2024 Patient encounter procedure Laura Hernandez APRN.DUMPER Work Phone: [facility] Comment on above: Syncope, unspecified syncope type (Primary Dx); Hiatal hernia; 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; Gastroesophageal reflux disease with esophagitis, unspecified whether hemorrhage; Irritable bowel syndrome with constipation; Abnormal EKG Start: 2023 End: 2023 Subsequent hospital visit by physician Luisito [facility] Work Phone: Radiology Comment on above: Acute right ankle pa in [M25.571] Start: 2023 End: 12-04-2024 Telephone encounter Laura Hernandez APRN.DUMPER Work Phone: [facility] Start: 2023 End: 2023 Patient encounter procedure Laura Hernandez APRN.DUMPER Work Phone: Internal Medicine [place] Comment on above: Acute right ankle pa in (Primary Dx); Pain in axilla, unspecified laterality; Numbness and tingling of both upper extremities Start: 12-11-2023 End: 12-11-2023 Patient encounter procedure Emg 2 Neur [facility] Rej (Max Weight: 400) Work Phone: Neurology Comment on above: EMG Start: 11-01-2023 End: 11-01-2023 Patient encounter procedure María Elena Duarte APRN.DUMPER Work Phone: Internal Medicine [place] Comment on above: Numbness and tinglin g of both upper extremities (Primary Dx); Pain in both upper extremities Start: 10-25-2023 Telephone encounter Laura Hernandez APRN.CNP Work Phone: [facility] Comment on above: Patient Update Start: 10-25-2023 End: 10-25-2023 Patient encounter procedure Carin Roldan MD Work Phone: OB/Gynecology Comment on above: Encounter for gyneco logical examination (general) (routine) without abnormal findings (Primary Dx); VAIN I (vaginal intraepithelial neoplasia grade I); Encounter for screening for human papillomavirus (HPV); Encounter for screening mammogram for breast cancer Start: 10-25-2023 End: 10-25-2023 Patient encounter status Carin Roldan MD Work Phone: [facility] Start: 10-17-2023 End: 10-17-2023 Subsequent hospital visit by physician Xr [facility] [place] Work Phone: Radiology Comment on above: Chest pain, unspecif ied type [R07.9] Start: 10-17-2023 End: 10-17-2023 Patient encounter procedure Laura Hernadnez APRN.DUMPER Work Phone: [facility] Comment on above: Shortness of breath (Primary Dx); Wheezing; Chest pain, unspecified type; Abnormal EKG; Axillary tenderness, unspecified laterality Start: 10-09-2023 End: 10-09-2023 Subsequent hospital visit by physician Diagnostic Mammo [facility] Mammogram Comment on above: Axillary tenderness, right [M79.621] Start: 09-27-2023 Refill Zaida Goodson PA-C Work Phone: Internal Medicine [facility] Comment on above: Refill Request Start: 09-26-2023 Refill Roselyn Tobar PA-C Work Phone: [facility] [place] Comment on above: Refill Request Start: 09-25-2023 Telephone encounter Laura Hernandez APRN.CNP Work Phone: Mammogram Comment on above: Orders Start: 09-18-2023 End: 09-18-2023 Patient encounter procedure Laura Hernandez APRN.CNP Work Phone: Internal Medicine [place] Comment on above: Axillary tenderness, right (Primary Dx); Axillary mass, right Start: 08-26-2023 End: 08-26-2023 Emergency department patient visit NAI HERNANDEZ Work Phone: [facility]-Emergency Department Work Phone: Start: 08-14-2023 End: 08-14-2023 Patient encounter procedure María Elena Duarte APRN.CNP Work Phone: Internal Medicine [facility] Comment on above: COPD with exacerbati on (HCC) (Primary Dx); Lesion of eyelid of both eyes Start: 08-09-2023 End: 08-09-2023 Patient encounter procedure Abbey Reina PA-C Work Phone: General Surgery Comment on above: 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 (Primary Dx) Start: 07-24-2023 End: 07-24-2023 ambulatory [facility] Facility[facility] Start: 07-18-2023 End: 07-18-2023 Patient encounter procedure Laura Hernandez APRN.CNP Work Phone: Internal Medicine [place] Comment on above: RUQ abdominal pain ( Primary Dx); Gastroesophageal reflux disease, unspecified whether esophagitis present; Chronic obstructive pulmonary disease, unspecified COPD type (HCC); Vomiting without nausea, unspecified vomiting type; Tobacco use disorder; Chronic pain syndrome; History of environmental allergies Start: 06-26-2023 End: 05-13-2024 Telephone encounter Allison Montoya MD Work Phone: General Surgery Comment on above: 07/24/2023 [facility] Start: 06-13-2023 Telephone encounter Laura Hernandez APRN.CNP Work Phone: Internal Medicine [facility] Comment on above: Results Start: 06-12-2023 End: 06-12-2023 Subsequent hospital visit by [place] [facility] Work Phone: Radiology Comment on above: RUQ abdominal pain [ R10.11] Start: 06-08-2023 End: 06-08-2023 Patient encounter procedure Laura Hernandez APRN.CNP Work Phone: Internal Medicine [place] Comment on above: RUQ abdominal pain ( Primary Dx); Nausea; Gastroesophageal reflux disease, unspecified whether esophagitis present; Leukocytosis, unspecified type Start: 05-18-2023 End: 05-18-2023 Emergency department patient visit POT ANNEALER-Tiki HERNANDEZ Work Phone: [facility]-Emergency Department Work Phone: Start: 05-16-2023 End: 05-16-2023 Subsequent hospital visit by physician [facility] Work Phone: Radiology Comment on above: Right axillary swell ing [M79.89] Start: 05-15-2023 End: 05-15-2023 ambulatory POT ANNEALER-C LAURA OLDER Work Phone: [facility] Work Phone: Start: 05-15-2023 End: 05-15-2023 Patient encounter procedure POT ANNEALER-Tiki HERNANDEZ Work Phone: [facility]-Outpatient Breast Imaging Work Phone: Start: 05-04-2023 Non-patient / Non-visit POT ANNEALER-Tiki HERNANDEZ Work Phone: [facility] Start: 05-04-2023 End: 05-04-2023 Office outpatient visit 15 minutes Renetta Kline APRN.ANDROID DEVELOPER Work Phone: Internal Medicine [facility] Comment on above: Right axillary swell ing (Primary Dx); Pain in right axilla Start: 05-04-2023 End: 05-04-2023 ambulatory POT ANNEALER-C LAURA HERNANDEZ Work Phone: [facility] Work Phone: Start: 05-04-2023 End: 05-04-2023 Patient encounter procedure POT ANNEALER-C LAURA HERNANDEZ Work Phone: [facility]-Pulmonary Services/Neurology Work Phone: Start: 05-03-2023 End: 05-03-2023 Patient encounter procedure POT ANNEALER-C LAURA OLDER Work Phone: [facility] Work Phone: Start: 03-26-2023 Refill Laura Hernandez HOUSESMITH .DUMPER Work Phone: Internal Medicine [facility] Comment on above: Refill Request Start: 03-23-2023 End: 03-23-2023 Patient encounter procedure Laura Hernandez APRN.CNP Work Phone: Internal Medicine [place] Comment on above: Pain with urination (Primary Dx); Intermittent right-sided chest pain; Acute pain of right shoulder; Gastroesophageal reflux disease without esophagitis; Vitamin D deficiency; Elevated liver enzymes Start: 03-13-2023 End: 03-13-2023 Subsequent hospital visit by [place] [facility] Work Phone: Radiology Start: 03-05-2023 End: 03-05-2023 ambulatory KHANH MATA Facility:[facility] Start: 03-05-2023 End: 03-05-2023 Office outpatient new 45 minutes Khanh Mata MD Work Phone: [facility] Comment on above: Gastroesophageal ref lux disease without esophagitis (Primary Dx); Tobacco use disorder; Hiatal hernia Start: 02-28-2023 ambulatory [facility] Cant[facility]C [facility] above: [facility] Start: 02-23-2023 Telephone encounter Laura Hernandez APRN.CNP Work Phone: Mammogram Comment on above: Orders Start: 02-20-2023 Refill Laura Hernandez APRN, .CNP Work Phone: Internal Medicine [facility] Comment on above: Refill Request Start: 02-19-2023 Refill Roselyn Cantuka PA-C [facility] Comment on above: Refill Request Start: 02-19-2023 End: 02-19-2023 Patient encounter procedure POT ANNEALER-C LAURA HERNANDEZ Work Phone: [facility] Work Phone: Start: 02-01-2023 Refill Roselyn Kalka PA-C [facility] Comment on above: Refill Request Start: 01-24-2023 End: 01-24-2023 Patient encounter procedure POT ANNEALER-C LAURA HERNANDEZ Work Phone: [facility] Work Phone: Start: 01-22-2023 ambulatory Roselyn Tobar PA-C Work Phone: [facility] [place] Comment on above: Prescription Start: 01-14-2023 ambulatory Roselynreyna Tobar PA-C [facility] Comment on above: Medicine Start: 01-12-2023 End: 01-12-2023 Subsequent hospital visit by physician Allison Montoya MD Work Phone: Ambulatory Surgery Comment on above: Irritable bowel synd elias with constipation [K58.1] Start: 01-05-2023 Telephone encounter Roselyn dunlap PA-C [facility] Comment on above: Insurance Authorizat ion Start: 01-04-2023 Telephone encounter Amanda campos MD Work Phone: Internal Medicine [facility] Comment on above: Peter KEENE report Start: 12-21-2022 End: 12-21-2022 ambulatory POT ANNEALER-C Mickey Valencia NP Work Phone: [facility] Work Phone: Start: 12-21-2022 End: 12-21-2022 Patient encounter procedure POT ANNEALER-C Mickey Valencia NP Work Phone: [facility] Start: 12-20-2022 ambulatory Amanda Monge Work Phone: Internal Medicine [facility] Start: 12-13-2022 End: 12-13-2022 Patient encounter procedure POT ANNEALER-C Mickey Valencia NP [facility] Start: 11-29-2022 Telephone encounter Roselyn dunlap PA-C [facility] Comment on above: Appointment Start: 11-24-2022 End: 11-24-2022 Subsequent hospital visit by physician Ct [facility] (I-Stat) Work Phone: Cat Scan Comment on above: Vomiting without bradley sea, unspecified vomiting type [R11.11] Start: 11-22-2022 End: 11-22-2022 Patient encounter procedure Laura Hernandez WILLIAM Work Phone: Internal Medicine [facility] Comment on above: Constipation, unspec ified constipation type (Primary Dx); Vomiting without nausea, unspecified vomiting type; Acute LUQ pain; Rash Start: 11-16-2022 ambulatory Roselyn Tobar PA-C Work Phone: Gastroenterology [place] Comment on above: Question regarding X R ESOPHAGRAM Start: 11-15-2022 ambulatory ROSELYN TOBAR Facility: [facility] Start: 11-15-2022 End: 11-15-2022 Subsequent hospital visit by physician Gi/Gu 1 [place] [facility]IO GI/ [facility] Comment on above: Dysphagia, unspecifi ed type [R13.10] Start: 11-10-2022 ambulatory Roselyn Tobar PA-C Work Phone: [facility] Comment on above: [place] Start: 11-10-2022 Non-patient / Non-visit Dr. Roberto Wallace Work Phone: [facility] Start: 11-09-2022 End: 11-09-[address] Amanda Wallace Work Phone: [facility] Work Phone: Start: 11-09-2022 End: 11-09-[address] Amanda Wallace Work Phone: [facility]-Pulmonary Services/Neurology Start: 11-07-2022 Telephone encounter Roselyn KEENE-C Work Phone: [facility] Comment on above: Insurance Authorizat ion Start: 11-05-2022 ambulatory Roselyn Tobar PA-C Work Phone: [facility] Comment on above: Stool Start: 10-29-2022 End: 10-29-2022 Emergency department patient visit Dr. Amanda Wallace Work Phone: [facility]-Emergency Department Start: 10-26-2022 End: 10-26-2022 Subsequent hospital visit by physician Luisito [facility] Nick Work Phone: Radiology Comment on above: Other constipation [ K59.09] Start: 10-26-2022 End: 10-26-2022 Patient encounter procedure Roselyn Tobar PA-C Work Phone: [facility] Comment on above: 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 (Primary Dx); Dysphagia, unspecified type; History of Helicobacter pylori infection; Other constipation Start: 10-10-2022 ambulatory Laura Hernandez HOUSESMITH .DUMPER Work Phone: Internal Medicine [place] Comment on above: Medicine Start: 10-05-2022 End: 10-05-2022 Patient encounter procedure Laura Hernandez HOUSESMITH.DUMPER Work Phone: Internal Medicine [place] Comment on above: Gastroesophageal ref lux disease, unspecified whether esophagitis present (Primary Dx); Increased urinary frequency; Constipation, unspecified constipation type Start: 09-19-2022 ambulatory Roselyn Tobar PA-C Work Phone: [facility] Comment on above: Question regarding S URGICAL PATHOLOGY Start: 09-12-2022 ambulatory ROSELYN TOBAR Facility: [facility] Start: 09-12-2022 End: 09-12-2022 Subsequent hospital visit by physician Charles Riggs MD Work Phone: 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] Start: 08-31-2022 Refill Laura Hernandez HOUSESMITH .DUMPER Work Phone: Internal Medicine [place] Comment on above: Refill Request Start: 08-17-2022 End: 08-17-2022 Patient encounter procedure Laura Hernandez HOUSESMITH.DUMPER Work Phone: [facility] Comment on above: Chronic obstructive pulmonary disease, unspecified COPD type (HCC) (Primary Dx); Gastroesophageal reflux disease, unspecified whether esophagitis present; Migraine without aura and without status migrainosus, not intractable Start: 08-16-2022 End: 08-16-2022 Patient encounter procedure Roselyn Tobar PA-C [facility] Comment on above: Chronic Helicobacter pylori gastritis (Primary Dx); 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; Other constipation Start: 08-14-2022 Telephone encounter Roselyn dunlap PA-C Work Phone: [facility] Comment on above: Appointment Start: 08-14-2022 End: 08-14-[address] Amanda Wallace [facility] Start: 08-10-2022 End: 08-10-2022 Subsequent hospital visit by physician Xr [facility] Work Phone: Radiology Comment on above: COPD with exacerbati on (HCC) [J44.1] Start: 08-10-2022 End: 08-10-2022 Patient encounter procedure Laura Hernandez APRN.CNP Work Phone: Internal Medicine [facility] Comment on above: COPD with exacerbati on (HCC) (Primary Dx); Wheezing; Shortness of breath; Other fatigue; Headaches Start: 07-13-2022 End: 07-13-2022 Patient encounter procedure Laura Hernandez APRN.CNP Work Phone: Internal [facility] Comment on above: Chronic obstructive pulmonary disease, unspecified COPD type (HCC) (Primary Dx); Fibromyalgia; Chronic pain syndrome; GERD without esophagitis Start: 06-07-2022 End: 06-07-2022 Subsequent hospital visit by physician Luisito [facility] Work Phone: Radiology Comment on above: Chest pain, unspecif ied type [R07.9] Start: 06-07-2022 End: 06-07-2022 Patient encounter procedure Laura Hernandez APRN.CNP Work Phone: [facility] Comment on above: Pneumonia due to inf ectious organism, unspecified laterality, unspecified part of lung (Primary Dx); Shortness of breath; Chest pain, unspecified type; EKG abnormality Start: 06-07-2022 Telephone encounter Laura Older HOUSESMITH.DUMPER Work Phone: Internal Medicine [facility] Comment on above: Results Start: 05-31-2022 Telephone encounter Laura Older HOUSESMITH.DUMPER Work Phone: Internal Medicine [facility] Comment on above: Results Start: 05-31-2022 End: 05-31-2022 Subsequent hospital visit by physician Xr [facility] Work Phone: Radiology Comment on above: Wheezing [R06.2] Start: 05-31-2022 End: 05-31-2022 Patient encounter procedure Laura Older HOUSESMITH.DUMPER Work Phone: Internal Medicine [facility] Comment on above: COPD with exacerbati on (HCC) (Primary Dx); Wheezing Start: 04-26-2022 End: 04-26-[address] Amanda Wallace Work Phone: [facility] Work Phone: Start: 04-26-2022 End: 04-26-[address] Amanda Wallace Work Phone: [facility]-Cardiovascular Services Start: 04-17-2022 End: 04-17-2022 Subsequent hospital visit by physician Xr [facility] Work Phone: RADIO GEN [facility] Start: 04-12-2022 End: 04-12-2022 Patient encounter procedure Laura Older HOUSESMITH.DUMPER Work Phone: Internal Medicine [place] Comment on above: Herpes zoster withou t complication (Primary Dx); Postherpetic neuralgia; Left hip pain Start: 03-29-2022 End: 03-29-2022 Patient encounter procedure Laura Older HOUSESMITH.DUMPER Work Phone: Internal Medicine [facility] Comment on above: Herpes zoster withou t complication (Primary Dx); Postherpetic neuralgia; Wheezing Start: 03-16-2022 End: 03-16-2022 Patient encounter procedure Laura Older HOUSESMITH.DUMPER Work Phone: Internal Medicine [place] Comment on above: Postherpetic neuralg ia (Primary Dx) Start: 03-01-2022 Refill Lenore Cee APRN.DUMPER Work Phone: Internal Medicine [facility] Comment on above: Refill Request Start: 02-27-2022 End: 02-27-2022 Patient encounter procedure Laura Hernandez APRN.DUMPER Work Phone: Internal Medicine [facility] Comment on above: Muscle cramps (Prima ry Dx); Restless leg; Herpes zoster without complication Start: 02-09-2022 End: 02-09-2022 Emergency department patient visit Dr. Amanda Wallace Work Phone: [facility]-Emergency Department Start: 01-12-2022 End: 01-12-2022 Patient encounter procedure Laura Hernandez APRN.DUMPER Work Phone: Internal [facility] Comment on above: Chronic obstructive pulmonary disease, unspecified COPD type (HCC) (Primary Dx); GERD without esophagitis; Helicobacter pylori infection Start: 01-06-2022 End: 01-06-[address] Amanda Wallace Work [facility] Start: 12-29-2021 Non-patient / Non-visit Dr. Roberto Wallace Work Phone: [facility] Start: 12-29-2021 End: 12-29-[address] Amanda Wallace Work Phone: [facility]-Pulmonary Services/Neurology Start: 12-27-2021 Non-patient / Non-visit Dr. Roberto Wallace Work Phone: [facility] Start: 12-27-2021 End: 12-27-[address] Amanda Wallace [facility] Start: 12-12-2021 Telephone encounter Tu John DO Work Phone: Radiology Comment on above: Patient Question Start: 12-09-2021 End: 12-09-[address] Amanda Wallace Work [facility] Start: 12-07-2021 Telephone encounter Laura Hernandez APRN.CNP Work Phone: Family Medicine [facility] Comment on above: Orders Start: 12-02-2021 Telephone encounter Laura Hernandez APRN.CNP Work Phone: Family [facility] Comment on above: Results Start: 11-28-2021 End: 11-28-2021 Emergency department patient visit [facility]-Emergency Department Start: 11-25-2021 End: 11-25-2021 Patient encounter procedure Dona [place] EVELYN.KACY Work Phone: OB/Gynecology Comment on above: Encounter for gyneco logical examination (general) (routine) without abnormal findings; Encounter for screening mammogram for breast cancer Start: 11-25-2021 End: 11-25-2021 Patient encounter status Donasusan PinedaShadi EVELYN.KACY Work Phone: OB/Gynecology Start: 11-25-2021 End: 11-25-2021 Patient encounter procedure Laura Hernandez APRN.CNP Work Phone: Internal [facility] Comment on above: COPD with exacerbati on (HCC) (Primary Dx); Shortness of breath; Wheezing Start: 11-23-2021 End: 11-23-2021 Patient encounter procedure Laura Hernandez APRN.CNP Work Phone: Internal Medicine [facility] Comment on above: COPD with exacerbati on (HCC) (Primary Dx); Shortness of breath; Wheezing Start: 11-23-2021 Telephone encounter Laura Hernandez APRN.CNP Work Phone: Family Medicine [facility] Comment on above: Medication Question Start: 11-18-2021 Documentation procedure Mammog guero Coordinator [facility] Start: 11-18-2021 Letter encounter Mammography Coordinator [facility] Department Start: 11-18-2021 End: 11-18-2021 Subsequent hospital visit by physician Screen Mammo [facility] Mammogram Comment on above: Encounter for screen ing mammogram for malignant neoplasm of breast [Z12.31] Start: 11-17-2021 ambulatory Laura Hernandez APRN, .CNP Work Phone: Internal Medicine [place] Comment on above: H maddy Start: 11-17-2021 End: 11-17-2021 Subsequent hospital visit by physician Luisito [facility] Work Phone: Radiology Comment on above: Wheezing [R06.2] Start: 11-17-2021 End: 11-17-2021 Patient encounter procedure Laura Belen BEAUCHAMPDUMPER Work Phone: Internal Medicine [facility] Comment on above: COPD with exacerbati on (HCC) (Primary Dx); Shortness of breath; Wheezing; Insomnia, unspecified type; Vitamin D deficiency; Lipid screening; Medication management; Encounter for screening mammogram for malignant neoplasm of breast; Acute pain of both shoulders Start: 11-17-2021 End: 11-17-2021 Subsequent hospital visit by physician Luisito [facility] Work Phone: Radiology Start: 11-10-2021 Telephone encounter Roselyn KEENE-C [facility] Comment on above: Results Start: 10-14-2021 ambulatory Roselyn KEENE-C Work Phone: Gastroenterology Comment on above: 3rd medication Start: 10-14-2021 E-mail encounter arsen m caregiver Roselyn KEENE-C Work Phone: [facility] Start: 10-11-2021 ambulatory Amanda Monge Work Phone: Internal Medicine [facility] [employer] Start: 10-11-2021 Telephone encounter Roselyn KEENE-C Work Phone: [facility] Comment on above: Results Start: 10-07-2021 Telephone encounter Charles Riggs MD [facility] Comment on above: Patient Question Start: 10-06-2021 End: 10-06-2021 Subsequent hospital visit by physician Charles Riggs MD Work Phone: [place] [facility] Comment on above: Chronic RUQ pain [R1 0.11, G89.29] Start: 10-05-2021 End: 10-05-2021 Subsequent hospital visit by physician Xr [facility] Work Phone: Radiology Comment on above: Wheezing [R06.2] Start: 10-05-2021 End: 10-05-2021 Patient encounter procedure Roselyn Tobar PAChiaraC Work Phone: Gastroenterology [place] Comment on above: Chronic RUQ pain (Pr imary Dx); 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; Other constipation; Wheezing Start: 08-18-2021 End: 08-18-2021 Subsequent hospital visit by physician Xr [facility] Work Phone: Radiology Comment on above: Fall, initial encoun ter [W19.XXXA] Start: 08-09-2021 End: 08-09-2021 [facility] Start: 06-25-2021 End: 06-25-2021 Subsequent hospital visit by physician Xr [facility] Work Phone: Radiology Comment on above: Chronic RUQ pain [R1 0.11, G89.29] Start: 05-12-2020 End: 05-12-2020 Subsequent hospital visit by physician Xr [facility] Work Phone: Radiology Comment on above: SOB (shortness of br eath) [R06.02] Start: 06-07-2011 Documentation procedure Sachin Mendez MD Work Phone: [facility] Start: 06-07-2011 Historic EMR Sachin hernandez MD Work Phone: [facility] Procedures Date Procedure Procedure Detail Performing Clinician Start: 01-01-2025 CT of chest LAURA HERNANDEZ POT ANNEALER-C Work Phone: Start: 12-29-2024 PFIZER-BIONTECH COVI D-19 VACCINE AGE 12+ YR (COMIRNATY) Laura Hernandez HOUSESMITH.DUMPER Work Phone: Start: 11-18-2024 Us lmtd joint/oth no nvasc xtr strux r-t w/img Melanie Shook MD Work Phone: Start: 11-18-2024 Ct thorax w/o contra st material Melanie Shook MD Work Phone: Start: 05-23-2024 Lipid 1996 panel - S chepe or Plasma Laura Older HOUSESMITH.DUMPER Work Phone: Start: 03-31-2024 Radiologic exam ches t 2 views Laura Older HOUSESMITH.DUMPER Work Phone: Start: 03-25-2024 Ct head/brain w/o co ntrast material Laura Older HOUSESMITH.DUMPER Work Phone: Start: 02-26-2024 Cardiovascular funct ion eval w/tilt table w/mntr Laura Older HOUSESMITH.DUMPER Work Phone: Start: 02-26-2024 Cardiovascular funct ion eval w/tilt table w/mntr Provider [facility] Start: 02-21-2024 Radiologic examinati on tibia & fibula 2 views Laura Older HOUSESMITH.DUMPER Work Phone: Start: 02-14-2024 Radiologic exam ches t 2 views Laura Older HOUSESMITH.DUMPER Work Phone: Start: 2023 Radex ankle complete minimum 3 views Laura Older HOUSESMITH.DUMPER Work Phone: Start: 12-11-2023 Nerve conduction jacek dies 5-6 studies María Elena Duarte HOUSESMITH.DUMPER Work Phone: Start: 10-17-2023 Radiologic exam ches t 2 views Laura Older HOUSESMITH.DUMPER Work Phone: Start: 10-09-2023 Us breast uni real t adarsh with image limited Laura Older HOUSESMITH.DUMPER Work Phone: Start: 10-09-2023 Digital breast tomos ynthesis bilateral Laura Older HOUSESMITH.DUMPER Work Phone: Start: 08-26-2023 Plain chest X-ray POT ANNEALER-C LAURA OLDER Work Phone: Start: 08-26-2023 SARS-CoV-2, Influenz a & RSV (PCR) POT ANNEALER-C LAURA OLDER Work Phone: Start: 06-12-2023 Us abdominal real ti me w/image limited Laura Older HOUSESMITH.DUMPER Work Phone: Start: 06-08-2023 Urnls dip stick/tabl et rgnt auto w/o microscopy Laura Older HOUSESMITH.DUMPER Work Phone: Start: 05-18-2023 Plain chest X-ray POT ANNEALER-C LAURA OLDER Work Phone: Start: 05-16-2023 Us breast uni real t adarsh with image limited Renetta Kline HOUSESMITH.[employer]EL[employer] Work Phone: Start: 05-15-2023 Ultrasonography of breast POT ANNEALER-C LAURA OLDER Work Phone: Start: 03-23-2023 Urnls dip stick/tabl et rgnt auto w/o microscopy Laura Older HOUSESMITH.DUMPER Work Phone: Start: 01-12-2023 Colonoscopy flx dx w /collj spec when pfrmd Roselyn Tobar PA-C Work Phone: Start: 01-12-2023 Colonoscopy Roselyn dunlap PA-C Work Phone: Start: 12-21-2022 CT of chest without contrast POT ANNEALER-C Mickey Valencia POT ANNEALER Work Phone: Start: 11-24-2022 Ct abdomen & pelvis w/contrast material Laura Hernandez HOUSESMITH.DUMPER Work Phone: Start: 11-15-2022 Radiologic exam esop hagus single contrast study Roselyn MILLERC Work Phone: Start: 11-14-2022 Lipid 1996 panel - S chepe or Plasma Laura Hernandez HOUSESMITH.DUMPER Work Phone: Start: 10-29-2022 Diagnostic radiograp hy of abdomen, decubitus and erect Dr. Amanda Wallace Work Phone: Start: 10-26-2022 Radiologic exam abdo men 1 view Roselyn MILLERC Work Phone: Start: 10-05-2022 Urnls dip stick/tabl et rgnt auto w/o microscopy Laura Older HOUSESMITH.[facility] Work Phone: Start: 08-10-2022 Radiologic exam ches t 2 views Laura Older HOUSESMITH.[facility] Work Phone: Start: 06-07-2022 Radiologic exam ches t 2 views Laura Older HOUSESMITH.[facility] Work Phone: Start: 05-31-2022 Radiologic exam ches t 2 views Laura Older HOUSESMITH.[facility] Work Phone: Start: 02-09-2022 X-ray of both feet Dr. Amanda Wallace Work Phone: Start: 11-28-2021 Plain chest X-ray Start: 11-28-2021 SARS-CoV-2 & FLU Ant igen (Rapid) Start: 11-18-2021 End: 11-18-2021 Screening mammography bi 2-view breast inc cad Laura Older HOUSESMITH.[facility] Work Phone: Start: 11-17-2021 Radiologic exam ches t 2 views Laura Older HOUSESMITH.[facility] Work Phone: Start: 11-17-2021 Radex spine lumbosac ral 2/3 views [facility] Provider Start: 10-05-2021 Radiologic exam ches t 2 views Roselyn KEENE-Tiki Work Phone: Start: 08-18-2021 Radex hip unilateral with pelvis 2-3 views Kathy R Ervin PA-C Work Phone: Start: 08-09-2021 CT of abdomen and pe lvis without contrast Start: 06-25-2021 Radiologic exam abdo men 1 view Roselyn KEENE-C Work Phone: Start: 10-22-2020 Mammography Roselyn dunlap PA-C Work Phone: Start: 02-13-2020 Colonoscopy Roselyn dunlap PA-C Work Phone: Start: 06-06-2011 SURGICAL PATHOLOGY, CONVERTED Sachin Paul Mendez MD Work Phone: SARS-CoV-2 & FLU Ant igen (Rapid) Dr. Amanda Wallace Work Phone: Plan of Treatment Date Care Activity Detail Author Start: 12-29-2034 Urine microalbumin profile DTaP,Tdap,Td Vaccine (7 - Td or Tdap) [facility] Start: 01-12-2033 Colonoscopy COLONOSCOPY [facility] Start: 01-12-2033 COLORECTAL CANCER SCREENING COLORECTAL CANCER SCREENING [facility] Start: 01-12-2033 Screening for malignant neoplasm of colon [facility] Start: 02-12-2030 Colonoscopy COLONOSCOPY [facility] Start: 02-12-2030 COLORECTAL CANCER SCREENING COLORECTAL CANCER SCREENING [facility] Start: 05-23-2029 Lipid panel Lipid Screening [facility] Start: 10-24-2028 Screening for malignant neoplasm of cervix HPV Testing [facility] Start: 11-15-2027 Lipid 1996 panel - Serum or Plasma Lipid Screening [facility] Start: 11-15-2027 Lipid panel Lipid Screening [facility] Start: 11-15-2027 LIPID SCREEN LIPID SCREEN [facility] Start: 11-07-2027 Diabetes Screening Diabetes Screening [facility] Start: 05-23-2027 Diabetes Screening Diabetes Screening [facility] Start: 01-15-2027 Diabetes Screening Diabetes Screening [facility] Start: 11-18-2026 LIPID SCREEN LIPID SCREEN [facility] Start: 10-31-2026 Diabetes Screening Diabetes Screening [facility] Start: 06-08-2026 Diabetes Screening Diabetes Screening [facility] Start: 03-23-2026 Diabetes Screening Diabetes Screening [facility] Start: 12-29-2025 Annual PCP Team Chronic Disease Visit Annual PCP Team Chronic Disease Visit [facility] Start: 12-10-2025 Annual PCP Team Chronic Disease Visit Annual PCP Team Chronic Disease Visit [facility] Start: 11-24-2025 Annual PCP Team Chronic Disease Visit Annual PCP Team Chronic Disease Visit [facility] Start: 11-22-2025 DIABETES SCREEN DIABETES SCREEN [facility] Start: 11-22-2025 Diabetes Screening Diabetes Screening [facility] Start: 11-06-2025 Annual PCP Team Chronic Disease Visit Annual PCP Team Chronic Disease Visit [facility] Start: 11-02-2025 End: 11-02-2025 Patient encounter procedure Mammogram Comment on above: Encounter for screening mammogram for br east cancer [Z12.31] Annual Start: 10-31-2025 Screening for malignant neoplasm of breast Mammogram Screening [facility] Start: 10-22-2025 HPV TESTING HPV TESTING [facility] Start: 10-22-2025 Screening for malignant neoplasm of cervix HPV Testing [facility] Start: 09-08-2025 Annual PCP Team Chronic Disease Visit Annual PCP Team Chronic Disease Visit [facility] Start: 08-21-2025 Annual PCP Team Chronic Disease Visit Annual PCP Team Chronic Disease Visit [facility] Start: 05-23-2025 Annual PCP Team Chronic Disease Visit Annual PCP Team Chronic Disease Visit [facility] Start: 05-15-2025 Pneumococcal vaccination Pneumococcal Vaccine (2 of 2 - PCV) [facility] Start: 05-15-2025 Pneumococcal Vaccine: 50+ (2 of 2 - PCV) Pneumococcal Vaccine: 50+ (2 of 2 - PCV) [facility] Start: 03-31-2025 Annual PCP Team Chronic Disease Visit Annual PCP Team Chronic Disease Visit [facility] Start: 03-30-2025 End: 03-30-2025 Patient encounter procedure 03/30/2025 8:20 AM EDT Office Visit Internal Medicine [facility] [address] [place], [place] [id number] Laura Hernandez APRN.DUMPER [address] [place], [place] [address] 3 month follow up Internal Medicine [facility] Comment on above: 3 month follow up Start: 03-27-2025 End: 03-27-2025 Patient encounter procedure 03/27/2025 9:00 AM EDT Office Visit [facility] [address] [place] [address] [place], [place] [address] [place] [address] Family history of ovarian cancer [Z80.41]; Family history of breast cancer [Z80.3] [facility] Comment on above: Family history of ovarian cancer [Z80.41 ]; Family history of breast cancer [Z80.3] Start: 03-09-2025 Influenza vaccination Influenza Vaccine (#1) [facility] [facility] Start: 02-27-2025 DIABETES SCREEN DIABETES SCREEN [facility] Start: 02-24-2025 End: 02-24-2025 Patient encounter procedure 02/24/2025 8:30 AM EDT Appointment Radiology [address] [place] [address] Lymphadenopathy [R59.1] Radiology Comment on above: Lymphadenopathy [R59.1] Start: 02-20-2025 Annual PCP Team Chronic Disease Visit Annual PCP Team Chronic Disease Visit [facility] Start: 02-20-2025 End: 12-20-2025 US Axilla - right US AXILLA ONLY RIGHT Radiology Routine Lymphadenopathy Expected: 02/20/2025, Expires: 12/20/2025 [facility] Work Phone: Comment on above: Expected: 02/20/2025, Expires: Start: 02-13-2025 Annual PCP Team Chronic Disease Visit Annual PCP Team Chronic Disease Visit [facility] Start: 01-15-2025 Annual PCP Team Chronic Disease Visit Annual PCP Team Chronic Disease Visit [facility] Start: 12-27-2024 Annual PCP Team Chronic Disease Visit Annual PCP Team Chronic Disease Visit [facility] Start: 12-16-2024 End: 12-16-2024 ambulatory 12/16/2024 10:00 AM EDT OT/PT/Speech Visit [facility] Physical Therapy [address] [address] Jerry Huston, PT [address] [place] [address] Doctor says my neck [facility] Physical Therapy Comment on above: Doctor says my neck Start: 12-10-2024 End: 12-10-2024 ambulatory 12/10/2024 10:20 AM EDT [facility] Internal Medicine [place] [address] [place] [address] Laura Hernandez APRN.DUMPER [address] [place] [address] 2 week Internal Medicine [facility] Comment on above: 2 week Start: 12-08-2024 End: 12-08-2024 ambulatory 12/08/2024 9:20 AM EDT [facility] Internal Medicine [place] [address] [facility] [place] [address] Laura Hernandez APRN.DUMPER [address] [facility] [place] [place] [address] 2 week Internal Medicine [facility] Comment on above: 2 week Start: 12-05-2024 End: 12-05-2024 ambulatory 12/05/2024 9:30 AM EDT OT/PT/Speech [facility] [address] [place] [address] Jerry Huston, PT [address] [place] [address] Doctor [facility] Comment on above: Doctor says my neck Start: 11-24-2024 End: 11-24-2024 Patient encounter procedure 11/24/2024 8:40 AM EDT Office Visit Internal Medicine [place] [address] [facility] [place] [address] Laura Hernandez APRN.DUMPER [address] [facility] [place] [address] 6 month follow up Internal Medicine [facility] Comment on above: 6 month follow up Start: 11-21-2024 End: 11-21-2024 ambulatory 11/21/2024 6:00 PM EDT [facility] [address] [place] [address] Olga Celis, [place] [address] [place] [address] Fhx of cancers [facility] Comment on above: Fhx of cancers Start: 11-21-2024 End: 02-20-2025 [facility] INVITAE HEREDITARY DIAGNOSTIC CANCER PANEL [facility] IN[facility] HEREDITARY DIAGNOSTIC CANCER PANEL Lab Routine Family history of ovarian cancer Family history of breast cancer History of uterine cancer History of skin cancer Family history of pancreatic cancer Family history of uterine cancer Family history of brain cancer Expected: 11/21/2024, Expires: 02/20/2025 [facility] Work Phone: Comment on above: Expected: 11/21/2024, Expires: Start: 11-20-2024 End: 11-20-2024 Patient encounter procedure Internal Medicine [place] Comment on above: 6 month follow up RT BREAST BIOPSY PROCEDURE: RT BREAST BIOPSY - F/U saw RG 11-06-2024. US scheduled 11/18/24 as of 11/13/24. [facility] Start: 11-18-2024 DIABETES SCREEN DIABETES SCREEN [facility] Start: 11-18-2024 End: 11-18-2024 Patient encounter procedure Cat Scan Comment on above: CT CHEST US Start: 11-06-2024 End: 11-06-2024 Patient encounter procedure 11/06/2024 3:00 PM EDT Office Visit General Surgery [address] [place] [address] Melanie Shook MD [address] [place] [address] Referral Deep Ramires MICRO PHOTOGRAPHER Right axillary swelling [M79.89] lh General Surgery Comment on above: Referral Deep Ramires MICRO PHOTOGRAPHER Right axillary swelling [M79.89] Start: 11-06-2024 End: 02-05-2025 Basic metabolic 2000 panel - Serum or Plasma [facility] Work Phone: Comment on above: Expected: 11/06/2024, Expires: Start: 11-06-2024 End: 02-05-2025 CBC panel - Blood by Automated count [facility] Comment on above: Expected: 11/06/2024, Expires: Start: 10-31-2024 Annual PCP Team Chronic Disease Visit Annual PCP Team Chronic Disease Visit [facility] Start: 10-27-2024 End: 10-27-2024 Patient encounter procedure 10/27/2024 10:15 AM EDT Office Visit OB/Gynecology [address] [place] [address] Deep Ramires APRN.DUMPER [address] [place] [address] ANNUAL OB/Gynecology Comment on above: ANNUAL Start: 10-27-2024 End: 10-27-2024 Patient encounter procedure Mammogram Comment on above: Encounter for screening mammogram for br east cancer [Z12.31] annual Start: 10-24-2024 Screening for malignant neoplasm of cervix [facility] Start: 10-16-2024 Annual PCP Team Chronic Disease Visit Annual PCP Team Chronic Disease Visit [facility] Start: 10-13-2024 End: 10-13-2024 Patient encounter procedure 10/13/2024 9:00 AM EDT Office Visit Orthopaedics [address] [place] [address] Heath Mar MD [address] [place] [address] : RUE weakness [R29.898]; Axillary pain, right [M79.621]; Chronic right shoulder pain [M25.511, G89.29] Orthopaedics Comment on above: : RUE weakness [R29.898]; Axillary pain, right [M79.621]; Chronic right shoulder pain [M25.511, G89.29] Start: 10-08-2024 Screening for malignant neoplasm of breast Mammogram Screening [facility] Start: 10-06-2024 End: 10-06-2024 Patient encounter procedure 10/06/2024 9:40 AM EDT Office Visit Cardiology [address] [place] [address] Mickey López MD [address] [place] [id number] 6 month follow up Cardiology Comment on above: 6 month follow up Start: 09-17-2024 Annual PCP Team Chronic Disease Visit Annual PCP Team Chronic Disease Visit [facility] Start: 09-16-2024 LIPID SCREEN LIPID SCREEN [facility] Start: 09-08-2024 End: 09-08-2024 Patient encounter procedure 09/08/2024 8:40 AM EST Office Visit Internal Medicine [place] [address] [place] [address] Laura Hernandez, HOUSESMITH.DUMPER [address] [place] [address] 2 week follow up for headaches Internal Medicine [place] Comment on above: 2 week follow up for headaches Start: 08-21-2024 End: 08-21-2024 Patient encounter procedure 08/21/2024 9:40 AM EST Office Visit Internal Medicine [place] [address] [place] [address] Laura Hernandez, HOUSESMITH.DUMPER [address] [place] [address] Headache. See triage Internal Medicine [place] Comment on above: Headache. See triage Start: 08-14-2024 Annual PCP Team Chronic Disease Visit Annual PCP Team Chronic Disease Visit [facility] Start: 08-04-2024 End: 11-03-2024 25-hydroxyvitamin D3 [Mass/volume] in Serum or Plasma VITAMIN D 25 HYDROXY Lab Routine Medication management Vitamin D deficiency Expected: 08/04/2024 (Approximate), Expires: 11/03/2024 [facility] Work Phone: Comment on above: Expected: 08/04/2024 (Approximate), Expi res: 11/03/2024 Start: 08-04-2024 End: 08-04-2024 ambulatory 08/04/2024 8:00 AM EST Results Only [place] [facility] Draw Station [address] [place] [address] [facility] Draw Station Start: 07-18-2024 Annual PCP Team Chronic Disease Visit Annual PCP Team Chronic Disease Visit [facility] Start: 07-09-2024 Medicare Advantage Annual Wellness Visit Medicare Advantage Annual Wellness Visit [facility] Start: 06-08-2024 Annual PCP Team Chronic Disease Visit Annual PCP Team Chronic Disease Visit [facility] Start: 05-23-2024 End: 08-22-2024 25-hydroxyvitamin D3 [Mass/volume] in Serum or Plasma [facility] Comment on above: Expected: 05/23/2024, Expires: Start: 05-23-2024 End: 08-22-2024 Basic metabolic 2000 panel - Serum or Plasma [facility] Work Phone: Comment on above: Expected: 05/23/2024, Expires: Start: 05-23-2024 End: 08-22-2024 Magnesium [Mass/volume] in Serum or Plasma [facility] Comment on above: Expected: 05/23/2024, Expires: Start: 05-23-2024 End: 08-22-2024 Phosphate [Mass/volume] in Serum or Plasma [facility] Comment on above: Expected: 05/23/2024, Expires: Start: 05-23-2024 End: 05-23-2024 Patient encounter procedure 05/23/2024 7:20 AM EST Office Visit Internal Medicine [place] [address] [place], [place] [address] Laura Hernandez APRN.DUMPER [address] [place] [address] 3 month follow up Internal Medicine [facility] Comment on above: 3 month follow up Start: 05-07-2024 End: 08-06-2024 Hepatic function 2000 panel - Serum or Plasma HEPATIC FUNCTION PNL Lab Routine Stenosis of carotid artery, unspecified laterality Expected: 05/07/2024, Expires: 08/06/2024 [facility] Comment on above: Expected: 05/07/2024, Expires: Start: 05-07-2024 End: 08-06-2024 Lipid 1996 panel - Serum or Plasma LIPID PANEL BASIC Lab Routine Stenosis of carotid artery, unspecified laterality Expected: 05/07/2024, Expires: 08/06/2024 [facility] Work Phone: Comment on above: Expected: 05/07/2024, Expires: Start: 04-11-2024 Annual PCP Team Chronic Disease Visit Annual PCP Team Chronic Disease Visit [facility] Start: 04-11-2024 Covid-19 Vaccine () Covid-19 Vaccine () [facility] Comment on above: Postponed from 03/09/2023 (Declined at t his time) Start: 04-11-2024 Hepatitis B Vaccine (1 of 3 - 19+ 3-dose series) Hepatitis B Vaccine (1 of 3 - 19+ 3-dose series) [facility] Comment on above: Postponed from 1988 (Declined at t his time) Start: 04-11-2024 Hepatitis B Vaccine (1 of 3 - 3-dose series) Hepatitis B Vaccine (1 of 3 - 3-dose series) [facility] Comment on above: Postponed from 1969 (Declined at t his time) Start: 04-11-2024 Pneumococcal vaccination [facility] Comment on above: Postponed from 08/25/2017 (Declined at t his time) Start: 04-11-2024 Shingrix Vaccine (1 of 2) Shingrix Vaccine (1 of 2) [facility] Comment on above: Postponed from 12/29/2019 (Declined at t his time) Start: 04-11-2024 Urine microalbumin profile DTaP,Tdap,Td Vaccine (6 - Tdap) [facility] Comment on above: Postponed from 07/31/2006 (Declined at t his time) Start: 04-07-2024 End: 04-07-2024 Patient encounter procedure 04/07/2024 9:40 AM EDT Office Visit Cardiology [address] [place] [address] Mickey López MD [address] [place] [address] Syncope, unspecified syncope type [R55] Cardiology Comment on above: Syncope, unspecified syncope type [R55] Start: 03-31-2024 End: 03-31-2024 Patient encounter procedure 03/31/2024 2:20 PM EDT Office Visit Internal Medicine [place] [address] [place], [place] [id number] Laura Hernandez APRN.DUMPER [address] [place], [place] [address] 1 week follow up Internal Medicine [place] Comment on above: 1 week follow up Start: 03-25-2024 End: 03-25-2024 Patient encounter procedure Gastroenterology [place] Comment on above: follow up, IBS, Duggan's Syncope and collapse [R55] Start: 03-23-2024 Annual PCP Team Chronic Disease Visit Annual PCP Team Chronic Disease Visit [facility] Start: 03-13-2024 Mammography Mammogram Screening [facility] Start: 03-13-2024 Screening for malignant neoplasm of breast Mammogram Screening [facility] Start: 03-09-2024 Covid-19 Vaccine () Covid-19 Vaccine () [facility] Start: 03-09-2024 Influenza vaccination Influenza Vaccine (#1) [facility] Start: 02-26-2024 End: 02-26-2024 Patient encounter procedure 02/26/2024 9:00 AM EDT Appointment Cardiology Lab [address] [place] [address] Syncope, unspecified syncope type [R55 (ICD-10-CM)] Cardiology Lab Comment on above: Syncope, unspecified syncope type [R55 ( ICD-10-CM)] Start: 02-21-2024 End: 02-21-2024 Patient encounter procedure 02/21/2024 8:20 AM EDT Office Visit Internal Medicine [place] [address] [place] [address] Laura Hernandez APRN.DUMPER [address] [place] [address] 1 week follow up Internal Medicine [place] Comment on above: 1 week follow up Start: 02-20-2024 End: 02-20-2024 Patient encounter procedure 02/20/2024 8:00 AM EDT Office Visit Vasculary Surgery [address] [place] [address] Syncope, unspecified syncope type [R55] Vasculary Surgery Comment on above: Syncope, unspecified syncope type [R55] Start: 02-14-2024 End: 02-14-2024 Patient encounter procedure Internal Medicine [place] Comment on above: 4 week follow up Start: 02-09-2024 ANNUAL PCP TEAM CHRONIC DISEASE VISIT ANNUAL PCP TEAM CHRONIC DISEASE VISIT [facility] Start: 01-16-2024 End: 04-16-2024 Comprehensive metabolic 2000 panel - Serum or Plasma [facility] Comment on above: Expected: 01/16/2024, Expires: Start: 01-16-2024 End: 04-16-2024 Magnesium [Mass/volume] in Serum or Plasma [facility] Comment on above: Expected: 01/16/2024, Expires: Start: 01-16-2024 End: 04-16-2024 Thyrotropin [Units/volume] in Serum or Plasma [facility] Comment on above: Expected: 01/16/2024, Expires: Start: 01-16-2024 End: 04-16-2024 Thyroxine (T4) free [Mass/volume] in Serum or Plasma [facility] Comment on above: Expected: 01/16/2024, Expires: Start: 01-16-2024 End: 01-16-2024 Patient encounter procedure 01/16/2024 7:40 AM EDT Office Visit Internal Medicine [place] [address] [place] [address] Laura Hernandez, HOUSESMITH.DUMPER [address] [place], [place] [id number] 3 month follow up Internal Medicine [place] Comment on above: 3 month follow up Start: 2023 End: 2023 Patient encounter procedure 2023 9:40 AM EDT Office Visit Internal Medicine [place] [address] [place], [place] [id number] Laura Hernandez, HOUSESMITH.DUMPER [address] [place] [address] Lumps Internal Medicine [place] Comment on above: Raffaele Start: 11-30-2023 ANNUAL PCP TEAM CHRONIC DISEASE VISIT ANNUAL PCP TEAM CHRONIC DISEASE VISIT [facility] Start: 11-29-2023 End: 11-29-2023 ambulatory 11/29/2023 12:30 PM EDT Procedure Neurology [address] [place] [address] Numbness and tingling of both upper extremities [R20.0, R20.2]; Pain in both upper extremities [M79.601, M79.602] Neurology Comment on above: Numbness and tingling of both upper extr emities [R20.0, R20.2]; Pain in both upper extremities [M79.601, M79.602] Start: 11-25-2023 DIABETES SCREEN DIABETES SCREEN [facility] Start: 11-23-2023 ANNUAL PCP TEAM CHRONIC DISEASE VISIT ANNUAL PCP TEAM CHRONIC DISEASE VISIT [facility] Start: 11-19-2023 End: 11-19-2023 Patient encounter procedure 11/19/2023 1:05 PM EDT Procedure Neurology [address] [place] [address] Numbness and tingling of both upper extremities [R20.0, R20.2]; Pain in both upper extremities [M79.601, M79.602] Neurology Comment on above: Numbness and tingling of both upper extr emities [R20.0, R20.2]; Pain in both upper extremities [M79.601, M79.602] Start: 11-05-2023 End: 11-05-2023 Patient encounter procedure 11/05/2023 3:30 PM EDT Office Visit Cardiology [address] [place] [address] Chest pain, unspecified type [R07.9]; Shortness of breath [R06.02]; Abnormal EKG [R94.31] Cardiology Comment on above: Chest pain, unspecified type [R07.9]; Sh ortness of breath [R06.02]; Abnormal EKG [R94.31] Start: 11-02-2023 End: 11-02-2023 Patient encounter procedure 11/02/2023 7:40 AM EDT Office Visit Internal Medicine [place] [address] [place], [place] [address] María Elena Duarte, HOUSESMITH.DUMPER [address] [place] [address] Pain Internal Medicine [place] Comment on above: Pain Start: 10-06-2023 ANNUAL PCP TEAM CHRONIC DISEASE VISIT ANNUAL PCP TEAM CHRONIC DISEASE VISIT [facility] Start: 08-26-2023 [facility] Start: 08-26-2023 [facility] Start: 08-17-2023 ANNUAL PCP TEAM CHRONIC DISEASE VISIT ANNUAL PCP TEAM CHRONIC DISEASE VISIT [facility] Start: 08-10-2023 ANNUAL PCP TEAM CHRONIC DISEASE VISIT ANNUAL PCP TEAM CHRONIC DISEASE VISIT [facility] Start: 07-13-2023 ANNUAL PCP TEAM CHRONIC DISEASE VISIT ANNUAL PCP TEAM CHRONIC DISEASE VISIT [facility] Start: 06-08-2023 End: 09-07-2023 Basic metabolic 2000 panel - Serum or Plasma [facility] Work Phone: Comment on above: Expected: 06/08/2023, Expires: Start: 06-07-2023 ANNUAL PCP TEAM CHRONIC DISEASE VISIT ANNUAL PCP TEAM CHRONIC DISEASE VISIT [facility] Start: 05-31-2023 ANNUAL PCP TEAM CHRONIC DISEASE VISIT ANNUAL PCP TEAM CHRONIC DISEASE VISIT [facility] Start: 05-18-2023 [facility] Start: 05-18-2023 [facility] Start: 04-12-2023 ANNUAL PCP TEAM CHRONIC DISEASE VISIT ANNUAL PCP TEAM CHRONIC DISEASE VISIT [facility] Start: 03-29-2023 ANNUAL PCP TEAM CHRONIC DISEASE VISIT ANNUAL PCP TEAM CHRONIC DISEASE VISIT [facility] Start: 03-23-2023 End: 05-23-2023 25-hydroxyvitamin D3 [Mass/volume] in Serum or Plasma [facility] Work Phone: Comment on above: Expected: 03/23/2023, Expires: Start: 03-23-2023 End: 05-23-2023 CBC panel - Blood by Automated count [facility] Work Phone: Comment on above: Expected: 03/23/2023, Expires: Start: 03-23-2023 End: 05-23-2023 Cobalamin (Vitamin B12) [Mass/volume] in Serum or Plasma [facility] Work Phone: Comment on above: Expected: 03/23/2023, Expires: Start: 03-23-2023 End: 05-23-2023 Comprehensive metabolic 2000 panel - Serum or Plasma [facility] Work Phone: Comment on above: Expected: 03/23/2023, Expires: Start: 03-23-2023 End: 05-23-2023 Magnesium [Mass/volume] in Serum or Plasma [facility] Work Phone: Comment on above: Expected: 03/23/2023, Expires: 3 Start: 03-23-2023 End: 05-23-2023 Thyrotropin [Units/volume] in Serum or Plasma [facility] Work Phone: Comment on above: Expected: 03/23/2023, Expires: Start: 03-16-2023 ANNUAL PCP TEAM CHRONIC DISEASE VISIT ANNUAL PCP TEAM CHRONIC DISEASE VISIT [facility] Start: 03-09-2023 Influenza vaccination [facility] Start: 02-27-2023 ANNUAL PCP TEAM CHRONIC DISEASE VISIT ANNUAL PCP TEAM CHRONIC DISEASE VISIT [facility] Start: 01-12-2023 ANNUAL PCP TEAM CHRONIC DISEASE VISIT ANNUAL PCP TEAM CHRONIC DISEASE VISIT [facility] Start: 01-12-2023 PAP TESTING PAP TESTING [facility] Comment on above: Postponed from 10/22/2021 (Declined at t his time) Start: 01-12-2023 PNEUMOCOCCAL (2 - PCV) PNEUMOCOCCAL (2 - PCV) [facility] Comment on above: Postponed from 01/25/2017 (Declined at t his time) Start: 01-12-2023 SHINGRIX VACCINE (1 of 2) SHINGRIX VACCINE (1 of 2) [facility] Comment on above: Postponed from 12/29/2019 (Declined at t his time) Start: 11-30-2022 ANNUAL PCP TEAM CHRONIC DISEASE VISIT ANNUAL PCP TEAM CHRONIC DISEASE VISIT [facility] Start: 11-25-2022 ANNUAL PCP TEAM CHRONIC DISEASE VISIT ANNUAL PCP TEAM CHRONIC DISEASE VISIT [facility] Start: 11-23-2022 ANNUAL PCP TEAM CHRONIC DISEASE VISIT ANNUAL PCP TEAM CHRONIC DISEASE VISIT [facility] Start: 11-22-2022 End: 01-22-2023 Amylase [Enzymatic activity/volume] in Serum or Plasma [facility] Work Phone: Comment on above: Expected: 11/22/2022, Expires: 3 Start: 11-22-2022 End: 01-22-2023 Comprehensive metabolic 2000 panel - Serum or Plasma [facility] Work Phone: Comment on above: Expected: 11/22/2022, Expires: 3 Start: 11-22-2022 End: 01-22-2023 Lipase [Enzymatic activity/volume] in Serum or Plasma [facility] Work Phone: Comment on above: Expected: 11/22/2022, Expires: 3 Start: 11-18-2022 Mammography MAMMOGRAM [facility] Start: 11-17-2022 ANNUAL PCP TEAM CHRONIC DISEASE VISIT ANNUAL PCP TEAM CHRONIC DISEASE VISIT [facility] Start: 06-25-2022 ANNUAL PCP TEAM CHRONIC DISEASE VISIT ANNUAL PCP TEAM CHRONIC DISEASE VISIT [facility] Start: 06-25-2022 Urine microalbumin profile DTAP,TDAP,TD (6 - Tdap) [facility] Comment on above: Postponed from 07/31/2006 (Declined at t his time) Start: 03-09-2022 Influenza vaccination INFLUENZA (#1) [facility] Start: 02-27-2022 End: 04-29-2022 Basic metabolic 2000 panel - Serum or Plasma [facility] Work Phone: Comment on above: Expected: 02/27/2022, Expires: 2 Start: 02-27-2022 End: 04-29-2022 CBC W Auto Differential panel - Blood [facility] Work Phone: Comment on above: Expected: 02/27/2022, Expires: 2 Start: 02-27-2022 End: 04-29-2022 Magnesium [Mass/volume] in Serum or Plasma [facility] Work Phone: Comment on above: Expected: 02/27/2022, Expires: 2 Start: 02-26-2022 COVID-19 VACCINE (3 - Booster for Pfizer series) COVID-19 VACCINE (3 - Booster for Pfizer series) [facility] Start: 02-09-2022 X-ray of both feet Foot min 3 Views [facility] Work Phone: Start: 02-09-2022 XR Foot GE 3 Views [facility] Work Phone: Start: 11-28-2021 Inhalation therapy procedure [facility] Work Phone: Start: 11-28-2021 Pressurized/nonpressuriz ed inhalation treatment AIRWAY INHALATION TREATMENT [facility] Work Phone: Start: 11-28-2021 Inhalation therapy procedure [facility] Work Phone: Start: 11-21-2021 COVID-19 VACCINE (3 - Booster for Pfizer series) COVID-19 VACCINE (3 - Booster for Pfizer series) [facility] Start: 11-21-2021 COVID-19 VACCINE (3 - Pfizer series) COVID-19 VACCINE (3 - Pfizer series) [facility] Start: 11-17-2021 End: 01-17-2022 CBC W Auto Differential panel - Blood CBC + DIFF Lab Routine Medication management Expected: 11/17/2021, Expires: 01/17/2022 [facility] Work Phone: Comment on above: Expected: 11/17/2021, Expires: 2 Start: 11-17-2021 End: 01-17-2022 Comprehensive metabolic 2000 panel - Serum or Plasma COMP METABOLIC PANEL Lab Routine Lipid screening Medication management Expected: 11/17/2021, Expires: 01/17/2022 [facility] Work Phone: Comment on above: Expected: 11/17/2021, Expires: 2 Start: 11-17-2021 End: 01-17-2022 LIPID PANEL BASIC LIPID PANEL BASIC Lab Routine Lipid screening Expected: 11/17/2021, Expires: 01/17/2022 [facility] Work Phone: Comment on above: Expected: 11/17/2021, Expires: 2 Start: 11-17-2021 End: 01-17-2022 VITAMIN D 25 HYDROXY VITAMIN D 25 HYDROXY Lab Routine Vitamin D deficiency Expected: 11/17/2021, Expires: 01/17/2022 [facility] Work Phone: Comment on above: Expected: 11/17/2021, Expires: 2 Start: 11-10-2021 End: 01-10-2022 Helicobacter pylori Ag [Presence] in Stool by Immunoassay H PYLORI AG BY EIA,STOOL Microbiology Routine Helicobacter pylori infection Expected: 11/10/2021, Expires: 01/10/2022 [facility] Work Phone: Comment on above: Expected: 11/10/2021, Expires: 2 Start: 10-22-2021 Mammography MAMMOGRAM [facility] Start: 10-22-2021 PAP TESTING PAP TESTING [facility] Start: 10-22-2021 Screening for malignant neoplasm of cervix Pap Testing [facility] Start: 10-11-2021 End: 12-11-2021 CBC panel - Blood by Automated count CBC Lab Routine Medication management Expected: 10/11/2021, Expires: 12/11/2021 [facility] Work Phone: Comment on above: Expected: 10/11/2021, Expires: 2 Start: 10-11-2021 End: 12-11-2021 SCHEDULE LAB TESTING SCHEDULE LAB TESTING Lab Routine Expected: 10/11/2021, Expires: 12/11/2021 [facility] Work Phone: Comment on above: Expected: 10/11/2021, Expires: 2 Start: 12-29-2019 SHINGRIX VACCINE (1 of 2) SHINGRIX VACCINE (1 of 2) [facility] Start: 08-25-2017 Pneumococcal vaccination Pneumococcal Vaccine (2 of 2 - PCV) [facility] Start: 01-25-2017 PNEUMOCOCCAL (2 - PCV) PNEUMOCOCCAL (2 - PCV) [facility] Start: 01-25-2017 Pneumococcal vaccination Pneumococcal Vaccine (2 - PCV) [facility] Start: 2014 COLOGUARD (FIT-DNA) COLOGUARD (FIT-DNA) [facility] Start: [address] COLONOGRAPHY [facility] Start: 2014 FECAL OCCULT BLOOD FECAL OCCULT BLOOD [facility] Start: 2014 Screening for malignant neoplasm of colon [facility] Start: 2014 SIGMOIDOSCOPY SIGMOIDOSCOPY [facility] Start: 07-31-2006 Urine microalbumin profile [facility] Start: 1988 Hepatitis B Vaccine (1 of 3 - 19+ 3-dose series) Hepatitis B Vaccine (1 of 3 - 19+ 3-dose series) [facility] Start: 1988 SHINGRIX VACCINE (1 of 2) SHINGRIX VACCINE (1 of 2) [facility] Start: 12-29-1987 Anxiety Screening Anxiety Screening [facility] Start: 1969 HEPATITIS B (1 of 3 - 3-dose series) HEPATITIS B (1 of 3 - 3-dose series) [facility] Start: 1969 Hepatitis B Vaccine (1 of 3 - 3-dose series) Hepatitis B Vaccine (1 of 3 - 3-dose series) [facility] Bacteria identified in Urine by Culture URINE CULTURE Microbiology Routine Pain with urination 03/23/2023 7:54 AM EDT [facility] Work Phone: Cardiovascular funct ion eval w/tilt table w/mntr TILT TABLE EVALUATION Cardiology Routine Syncope, unspecified syncope type Ordered: 01/16/2024 [facility] Comment on above: Ordered: 01/16/2024 COVID & INFLUENZA A/ B & RSV NAAT, ROUTINE COVID & INFLUENZA A/B & RSV NAAT, ROUTINE Microbiology Routine COPD with exacerbation (HCC) Shortness of breath Headaches Increased sputum production Ordered: 02/14/2024 [facility] Work Phone: Comment on above: Ordered: 02/14/2024 End: 12-22-2023 Ct abdomen & pelvis w/contrast material CT ABD/PEL W IVCON Radiology Routine Vomiting without nausea, unspecified vomiting type Constipation, unspecified constipation type Acute LUQ pain 1 Occurrences starting 11/22/2022 until 12/22/2023 [facility] Work Phone: Comment on above: 1 Occurrences starting 11/22/2022 until 12/22/2023 CT [facility] [place] [place] contrast [facility] Work Phone: End: 12-06-2025 CT Chest WO contrast CT CHEST WO IVCON Radiology STAT Right axillary swelling 1 Occurrences starting 11/06/2024 until 12/06/2025 [facility] Comment on above: 1 Occurrences starting 11/06/2024 until 12/06/2025 End: 04-13-2025 CT Head WO contrast CT BRAIN WO IVCON Radiology Routine Syncope and collapse 1 Occurrences starting 03/14/2024 until 04/13/2025 [facility] Work Phone: Comment on above: 1 Occurrences starting 03/14/2024 until 04/13/2025 End: 11-23-2024 DBT Breast - bilateral screening DELTA SCREENING W MYRIAM Radiology Routine Encounter for gynecological examination (general) (routine) without abnormal findings Encounter for screening mammogram for breast cancer 1 Occurrences starting 10/25/2023 until 11/23/2024 [facility] Work Phone: Comment on above: 1 Occurrences starting 10/25/2023 until 11/23/2024 End: 06-07-2023 ECG COMPLETE ECG COMPLETE ECG Routine Chest pain, unspecified type 1 Occurrences starting 06/07/2022 until 06/07/2023 [facility] Work Phone: Comment on above: 1 Occurrences starting 06/07/2022 until 06/07/2023 End: 03-23-2024 ECG COMPLETE ECG COMPLETE ECG Routine Intermittent right-sided chest pain 1 Occurrences starting 03/23/2023 until 03/23/2024 [facility] Work Phone: Comment on above: 1 Occurrences starting 03/23/2023 until 03/23/2024 ECG COMPLETE ECG COMPLETE ECG Routine Chest pain, unspecified type Ordered: 10/17/2023 [facility] Work Phone: Comment on above: Ordered: 10/17/2023 ECG COMPLETE ECG COMPLETE ECG Routine Syncope, unspecified syncope type Ordered: 01/16/2024 [facility] Work Phone: Comment on above: Ordered: 01/16/2024 End: 06-07-2023 Echocardiography ECHO Cardiology Routine Chest pain, unspecified type Shortness of breath EKG abnormality 1 Occurrences starting 06/07/2022 until 06/07/2023 [facility] Work Phone: Comment on above: 1 Occurrences starting 06/07/2022 until 06/07/2023 End: 10-16-2024 Echocardiography ECHO Cardiology Routine Chest pain, unspecified type Shortness of breath Abnormal EKG 1 Occurrences starting 10/17/2023 until 10/16/2024 [facility] Work Phone: Comment on above: 1 Occurrences starting 10/17/2023 until 10/16/2024 End: 10-05-2022 EGD DIAGNOSTIC EGD DIAGNOSTIC Endoscopy Routine Chronic RUQ pain 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 1 Occurrences starting 10/05/2021 until 10/05/2022 [facility] Work Phone: Comment on above: 1 Occurrences starting 10/05/2021 until 10/05/2022 End: 10-06-2021 EGD DIAGNOSTIC EGD DIAGNOSTIC Endoscopy Routine Chronic RUQ pain 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 1 Occurrences starting 10/06/2021 until 10/06/2021 [facility] Work Phone: Comment on above: 1 Occurrences starting 10/06/2021 until 10/06/2021 End: 08-16-2023 EGD DIAGNOSTIC EGD DIAGNOSTIC Endoscopy Routine Chronic Helicobacter pylori gastritis 1 Occurrences starting 08/16/2022 until 08/16/2023 [facility] Work Phone: Comment on above: 1 Occurrences starting 08/16/2022 until 08/16/2023 End: 09-12-2022 EGD DIAGNOSTIC EGD DIAGNOSTIC Endoscopy Routine Chronic Helicobacter pylori gastritis 1 Occurrences starting 09/12/2022 until 09/12/2022 [facility] Work Phone: Comment on above: 1 Occurrences starting 09/12/2022 until 09/12/2022 End: 10-31-2024 EMG(NEURO/NI) EMG(NEURO/NI) EMG JAMESON Numbness and tingling of both upper extremities Pain in both upper extremities 1 Occurrences starting 11/01/2023 until 10/31/2024 [facility] Work Phone: Comment on above: 1 Occurrences starting 11/01/2023 until 10/31/2024 End: 03-24-2024 DELTA DIAGNOSTIC BILATERAL DELTA DIAGNOSTIC BILATERAL Radiology Routine Breast pain Axillary tenderness, right 1 Occurrences starting 02/23/2023 until 03/24/2024 [facility] Work Phone: Comment on above: 1 Occurrences starting 02/23/2023 until 03/24/2024 End: 06-02-2024 DELTA DIAGNOSTIC RIGHT DELTA DIAGNOSTIC RIGHT Radiology Routine Right axillary swelling Pain in right axilla 1 Occurrences starting 05/04/2023 until 06/02/2024 [facility] Work Phone: Comment on above: 1 Occurrences starting 05/04/2023 until 06/02/2024 End: 01-19-2024 DELTA SCREENING DELTA SCREENING Radiology Routine Encounter for screening mammogram for breast cancer 1 Occurrences starting 12/20/2022 until 01/19/2024 [facility] Work Phone: Comment on above: 1 Occurrences starting 12/20/2022 until 01/19/2024 Measurement of respiratory function [facility] End: 10-24-2024 MG Breast - bilateral Diagnostic DELTA DIAGNOSTIC BILATERAL Radiology Routine Axillary tenderness, right Mass of right axilla 1 Occurrences starting 09/26/2023 until 10/24/2024 [facility] Work Phone: Comment on above: 1 Occurrences starting 09/26/2023 until 10/24/2024 End: 10-17-2024 MG Breast - right Diagnostic for implant DELTA DIAGNOSTIC RIGHT Radiology Routine Axillary tenderness, right Axillary mass, right 1 Occurrences starting 09/18/2023 until 10/17/2024 [facility] Work Phone: Comment on above: 1 Occurrences starting 09/18/2023 until 10/17/2024 OUTSIDE VENDOR CARDI AC OUTPATIENT EXTENDED RHYTHM RECORDING (WITHOUT TELEMETRY) OUTSIDE VENDOR CARDIAC OUTPATIENT EXTENDED RHYTHM RECORDING (WITHOUT TELEMETRY) Holter Routine Syncope, unspecified syncope type Ordered: 01/16/2024 [facility] Comment on above: Ordered: 01/16/2024 PAP TEST PAP TEST Lab Rou lucidna EDWARD I (vaginal intraepithelial neoplasia grade I) Encounter for gynecological examination (general) (routine) without abnormal findings Encounter for screening for human papillomavirus (HPV) 10/25/2023 9:48 AM EDT [facility] Work Phone: Patient Education [facility] Work Phone: Patient referral [facility] Work Phone: PT ED DIGESTIVE DISEASE PT ED DI GESTIVE DISEASE Other 08/17/2022 [facility] PT ED PATIENT INFORMATION PT ED PATIENT INFORMATION Other 08/17/2022 [facility] End: 09-09-2023 Radiologic exam chest 2 views XR CHEST 2V FRONTAL/LAT Radiology Routine COPD with exacerbation (HCC) Wheezing Shortness of breath 1 Occurrences starting 08/10/2022 until 09/09/2023 [facility] Work Phone: Comment on above: 1 Occurrences starting 08/10/2022 until 09/09/2023 Radiologic exam ches t 2 views XR CHEST 2V FRONTAL/LAT Radiology Routine COPD with exacerbation (HCC) Wheezing Shortness of breath 08/10/2022 8:39 AM EST [facility] Work Phone: End: 11-25-2023 Radiologic exam esophagus single contrast study XR ESOPHAGRAM Radiology Routine Dysphagia, unspecified type 1 Occurrences starting 10/26/2022 until 11/25/2023 [facility] Work Phone: Comment on above: 1 Occurrences starting 10/26/2022 until 11/25/2023 End: 12-17-2022 Screening mammography bi 2-view breast inc cad DELTA SCREENING Radiology Routine Encounter for screening mammogram for malignant neoplasm of breast 1 Occurrences starting 11/17/2021 until 12/17/2022 [facility] Work Phone: Comment on above: 1 Occurrences starting 11/17/2021 until 12/17/2022 End: 12-25-2022 Screening mammography bi 2-view breast inc cad DELTA SCREENING Radiology Routine Encounter for screening mammogram for breast cancer 1 Occurrences starting 11/25/2021 until 12/25/2022 [facility] Work Phone: Comment on above: 1 Occurrences starting 11/25/2021 until 12/25/2022 SURGICAL PATHOLOGY [facility] Work Phone: Comment on above: Release Upon Ordering for 1 Occurrences starting 10/06/2021, 1 completed SURGICAL PATHOLOGY SURGICAL PATH OLOGY Lab Routine Chronic Helicobacter pylori gastritis Release Upon Ordering for 1 Occurrences starting 09/12/2022 [facility] Work Phone: Comment on above: Release Upon Ordering for 1 Occurrences starting 09/12/2022 TILT TABLE TEST TILT TABLE TEST EPS Routine 02/26/2024 9:07 AM EDT [facility] Work Phone: UA DIP, URINE (POC) UA DIP, URIN E (POC) Lab Routine Increased urinary frequency Ordered: 10/05/2022 [facility] Work Phone: Comment on above: Ordered: 10/05/2022 End: 07-07-2024 US ABD RIGHT UPPER QUADRANT US ABD RIGHT UPPER QUADRANT Radiology Routine RUQ abdominal pain Nausea 1 Occurrences starting 06/08/2023 until 07/07/2024 [facility] Work Phone: Comment on above: 1 Occurrences starting 06/08/2023 until 07/07/2024 End: 12-06-2025 US Axilla - right US AXILLA ONLY RIGHT Radiology Routine Right axillary swelling 1 Occurrences starting 11/06/2024 until 12/06/2025 [facility] Work Phone: Comment on above: 1 Occurrences starting 11/06/2024 until 12/06/2025 End: 06-02-2024 US AXILLA ONLY RIGHT US AXILLA ONLY RIGHT Radiology Routine Right axillary swelling Pain in right axilla 1 Occurrences starting 05/04/2023 until 06/02/2024 [facility] Work Phone: Comment on above: 1 Occurrences starting 05/04/2023 until 06/02/2024 End: 10-17-2024 US Breast - right limited US BREAST LTD RIGHT Radiology Routine Axillary tenderness, right Axillary mass, right 1 Occurrences starting 09/18/2023 until 10/17/2024 [facility] Work Phone: Comment on above: 1 Occurrences starting 09/18/2023 until 10/17/2024 End: 01-15-2025 US Carotid arteries - bilateral US CAROTID ARTERIES [facility] Vascular Lab Routine Syncope, unspecified syncope type 1 Occurrences starting 01/16/2024 until 01/15/2025 [facility] Comment on above: 1 Occurrences starting 01/16/2024 until 01/15/2025 End: 11-25-2023 XR ABDOMEN 1V SUPINE XR ABDOMEN 1V SUPINE Radiology Routine Other constipation 1 Occurrences starting 10/26/2022 until 11/25/2023 [facility] Work Phone: Comment on above: 1 Occurrences starting 10/26/2022 until 11/25/2023 XR ABDOMEN 1V SUPINE XR ABDOMEN 1V SUPINE Radiology Routine Other constipation 10/26/2022 12:13 PM EDT [facility] Work Phone: End: 01-26-2025 XR Ankle - right AP and Lateral and oblique XR ANKLE GENERAL 3V AP/LAT/OBL RIGHT Radiology Routine Acute right ankle pain 1 Occurrences starting 2023 until 01/26/2025 [facility] Work Phone: Comment on above: 1 Occurrences starting 2023 until 01/26/2025 XR Ankle - right AP and Lateral and oblique XR ANKLE GENERAL 3V AP/LAT/OBL RIGHT Radiology Routine Acute right ankle pain 2023 3:09 PM EDT [facility] End: 01-26-2025 XR CERV OTHER 4V AP/LAT/FLX/EXT XR CERV OTHER 4V AP/LAT/FLX/EXT Radiology Routine Pain in axilla, unspecified laterality Numbness and tingling of both upper extremities 1 Occurrences starting 2023 until 01/26/2025 [facility] Comment on above: 1 Occurrences starting 2023 until 01/26/2025 XR CERV OTHER 4V AP/LAT/FLX/EXT XR CERV OTHER 4V AP/LAT/FLX/EXT Radiology Routine Acute right ankle pain Pain in axilla, unspecified laterality Numbness and tingling of both upper extremities 2023 3:09 PM EDT [facility] End: 01-26-2025 XR Shoulder - left 3 Views XR SHOULDER GENERAL 3V OR MORE AP/TRUE AP/OTHER LEFT Radiology Routine Pain in axilla, unspecified laterality Numbness and tingling of both upper extremities 1 Occurrences starting 2023 until 01/26/2025 [facility] Comment on above: 1 Occurrences starting 2023 until 01/26/2025 XR Shoulder - left 3 Views XR SHOULDER GENERAL 3V OR MORE AP/TRUE AP/OTHER LEFT Radiology Routine Acute right ankle pain Pain in axilla, unspecified laterality Numbness and tingling of both upper extremities 2023 3:09 PM EDT [facility] End: 01-26-2025 XR Shoulder - right 3 Views XR SHOULDER GENERAL 3V OR MORE AP/TRUE AP/OTHER RIGHT Radiology Routine Pain in axilla, unspecified laterality Numbness and tingling of both upper extremities 1 Occurrences starting 2023 until 01/26/2025 [facility] Comment on above: 1 Occurrences starting 2023 until 01/26/2025 XR Shoulder - right 3 Views XR SHOULDER GENERAL 3V OR MORE AP/TRUE AP/OTHER RIGHT Radiology Routine Acute right ankle pain Pain in axilla, unspecified laterality Numbness and tingling of both upper extremities 2023 3:09 PM EDT [facility] End: 03-22-2025 XR Tibia and Fibula - left AP and Lateral XR TIBIA FIBULA 2V AP/LAT LEFT Radiology Routine Pain in left hernandez 1 Occurrences starting 02/21/2024 until 03/22/2025 [facility] Work Phone: Comment on above: 1 Occurrences starting 02/21/2024 until 03/22/2025 XR Tibia and Fibula - left AP and Lateral XR TIBIA FIBULA 2V AP/LAT LEFT Radiology Routine Pain in left hernandez 02/21/2024 8:55 AM EDT [facility] Immunizations Immunization Date Immunization Notes Care Provider Devon escudero 12-29-2024 COVID-19 vaccine, ag e 12+ yr (PFIZER-BIONTECH COMIRNATY) Laura Older HOUSESMITH.DUMPER Work Phone: [facility] 12-29-2024 tetanus toxoid, redu manda diphtheria toxoid, and acellular pertussis vaccine, adsorbed Amanda Wallace MD Work Phone: [facility] 05-15-2024 influenza, injectabl e, madin ene canine kidney, preservative free LAURA OLDER POT ANNEALER-C Work Phone: [facility] 05-15-2024 pneumococcal polysaccharide vaccine, 23 valent LAURA OLDER POT ANNEALER-C Work Phone: [facility] 05-15-2024 influenza virus vaccine, unspecified formulation Laura Older HOUSESMITH.DUMPER Work Phone: [facility] 04-11-2023 influenza, injectabl e, quadrivalent, contains preservative Renetat Kline HOUSESMITH.ANDROID DEVELOPER Work Phone: [facility] 04-11-2023 influenza virus vaccine, unspecified formulation Laura Older HOUSESMITH.DUMPER Work Phone: [facility] 09-26-2021 COVID-19 original vaccine, age 12+ yr, monovalent (PFIZER-BIONTECH - MAGAÑA TOP) Renetta Kline HOUSESMITH.ANDROID DEVELOPER Work Phone: [facility] Work Phone: 09-26-2021 COVID-19 vaccine, ag e 12+ yr (PFIZER-BIONTECH - PURPLE TOP) Roselyn MILLERC Work Phone: [facility] 09-05-2021 COVID-19 original vaccine, age 12+ yr, monovalent (PFIZER-BIONTECH - MAGAÑA TOP) Renetta Kline HOUSESMITH.ANDROID DEVELOPER Work Phone: [facility] Work Phone: 09-05-2021 COVID-19 vaccine, ag e 12+ yr ([employer] - PURPLE TOP) Roselyn Cantuka PA-C Work Phone: [facility] 06-25-2021 influenza, seasonal, injectable Roselyn Cantuka PA-C Work Phone: [facility] 06-25-2021 influenza virus vaccine, unspecified formulation Laura Hernandez HOUSESMITH.DUMPER Work Phone: [facility] 04-30-2017 influenza, injectabl e, quadrivalent, contains preservative Roselyn Kalka PA-C Work Phone: [facility] Work Phone: 08-25-2016 pneumococcal conjuga te vaccine, 7 valent Renetta Kline HOUSESMITH.ANDROID DEVELOPER Work Phone: [facility] Work Phone: 07-09-2016 influenza, injectabl e, quadrivalent, contains preservative Renetta Kline HOUSESMITH.ANDROID DEVELOPER Work Phone: [facility] Work Phone: 04-28-2016 influenza, injectabl e, quadrivalent, contains preservative Roselyn Kalka PA-C Work Phone: [facility] Work Phone: 01-26-2016 pneumococcal polysaccharide vaccine, 23 valent Roselyn Kalka PA-C Work Phone: [facility] Work Phone: 10-14-2015 influenza, injectabl e, quadrivalent, preservative free POT ANNEALER-C LAURA HERNANDEZ Work Phone: [facility] 10-14-2015 influenza, seasonal, injectable [facility] 10-14-2015 influenza, seasonal, injectable, preservative free Renetta Kline HOUSESMITH.ANDROID DEVELOPER Work Phone: [facility] Work Phone: 07-30-2006 tetanus and diphther ia toxoids, adsorbed, preservative free, for adult use (2 Lf of tetanus toxoid and 2 Lf of diphtheria toxoid) Roselyn Cantuka PA-C Work Phone: [facility] Work Phone: 06-20-1985 diphtheria antitoxin Roselyn Cantuka PA-C Work Phone: [facility] Work Phone: 06-20-1985 trivalent poliovirus vaccine, live, oral Roselyn Cantuka PA-C Work Phone: [facility] Work Phone: 06-20-1985 tuberculin skin test ; purified protein derivative solution, intradermal Lalita Nieves [facility] 02-10-1975 diphtheria, tetanus toxoids and pertussis vaccine Roselyn Pepeka PA-C Work Phone: [facility] Work Phone: 02-10-1975 trivalent poliovirus vaccine, live, oral Roselyn Kalka PA-C Work Phone: [facility] Work Phone: 02-28-1974 tuberculin skin test ; purified protein derivative solution, intradermal Lalita Nieves [facility] 11-13-1972 measles, mumps and rubella virus vaccine Roselyn Pepeka PA-C Work Phone: [facility] Work Phone: 03-08-1972 diphtheria, tetanus toxoids and pertussis vaccine Roselyn Pepeka PA-C Work Phone: [facility] Work Phone: 03-08-1972 trivalent poliovirus vaccine, live, oral Roselyn Kalka PA-C Work Phone: [facility] Work Phone: 03-08-1972 tuberculin skin test ; purified protein derivative solution, intradermal Lalita Nieves [facility] 03-03-1971 diphtheria, tetanus toxoids and pertussis vaccine Roselyn Pepeka PA-C Work Phone: [facility] Work Phone: 03-03-1971 trivalent poliovirus vaccine, live, oral Roselyn Kalka PA-C Work Phone: [facility] Work Phone: 11-08-1970 diphtheria, tetanus toxoids and pertussis vaccine Roselyn Kalka PA-C Work Phone: [facility] Work Phone: 11-08-1970 trivalent poliovirus vaccine, live, oral Roselyn Kalka PA-C Work Phone: [facility] Work Phone: 08-05-1970 diphtheria, tetanus toxoids and pertussis vaccine Roselyn Kalka PA-C Work Phone: [facility] Work Phone: 08-05-1970 trivalent poliovirus vaccine, live, oral Roselyn Kalka PA-C Work Phone: [facility] Work Phone: NEGATED: Highlighted row has not occurred!06-25-2021 influenza, injectable, quadrivalent, contains preservative Roselyn Kalka PA-C Work Phone: [facility] Work Phone: Payers Date Payer Category Payer Medicare (Managed Care) [employer] [id number] 2024 Medicare [id number] 2023 Medicare [id number] 2022 Medicaid [id number] 2021 Medicaid [employer] [id number] 2021-[facility] [phone] [address] [place] [address] Medicaid [id number] 2019 Medicaid [id number] 2007 Self-pay [id number] Unknown [id number] Unknown [id number] Unknown [id number]. 462 Unknown [id number] [id number]. 462 Unknown [id number] [id number]. 462 Unknown [id number] 2.840.1.287938.3.579.2. 462 Unknown [id number] [id number]. 462 Unknown [id number] [id number]. 462 Unknown [id number] [id number]. 462 Unknown [id number] 2.16840.1.437543.3.579.2. 462 Unknown [id number] 2.16840.1.479169.3.579.2. 462 Unknown [id number] 2.16.840.1.851627.3.579.2. 462 Unknown [id number] 2.16.840.1.161561.3.579.2. 462 Unknown [id number] 2.16.840.1.381976.3.579.2. 462 Unknown [id number] 2.16.840.1.280370.3.579.2. 462 Unknown [id number] 2.16.840.1.525623.3.579.2. 462 Unknown [id number] 2.16.840.1.651872.3.579.2. 462 Unknown [id number] 2.16.840.1.882271.3.579.2. 462 Unknown [id number] [id number]. 462 Unknown [id number] 2.16.840.1.374448.3.579.2. 462 Unknown [id number] 2.16.840.1.342862.3.579.2. 462 Unknown [id number] [id number]. 462 Unknown [id number]. 462 Social History Date Type Detail Facility Start: 11-17-1986 End: 04-07-2024 Tobacco smoking status NVIS Smokes tobacco daily [facility] Start: 11-17-1986 End: 11-23-2021 History of tobacco use Cigarette Smoker [facility] Start: 09-17-2019 End: 11-24-2022 Cigarettes smoked current (pack per day) - Reported 0.25 [facility] Start: 09-17-2019 End: 04-07-2024 Tobacco use and exposure Smokeless tobacco non-user [facility] Start: 10-05-2021 End: 12-29-2024 Alcohol intake Ex-drinker (finding) [facility] Start: 07-17-2020 End: 05-29-2022 History SDOH Alcohol Frequency 1 [facility] Start: 07-17-2020 History SDOH Alcohol Std Drinks 98 [facility] Start: 07-20-2016 History SDOH Alcohol Comment Rarely [facility] Start: 07-17-2020 End: 05-29-2022 History SDOH Social Connections Phone 5 [facility] Start: 07-17-2020 End: 05-29-2022 History SDOH Social Connections Get Together 2 [facility] Start: 07-17-2020 End: 05-29-2022 History SDOH Physical Activity DPW 0 [facility] Start: 1970 Sex Assigned At Female [facility] Start: 04-12-2020 End: 04-17-2022 Exposure to SARS-CoV-2 (event) Not sure [facility] Start: 11-07-2021 End: 04-12-2022 Exposure to SARS-CoV-2 (event) Unable to assess [facility] Start: 11-25-2021 End: 08-16-2022 Tobacco smoking status NHIS Ex-smoker [facility] Work Phone: Start: 11-17-1986 End: 11-23-2021 History of tobacco use Current smoker [facility] Work Phone: Start: 11-28-2021 End: 08-26-2023 Tobacco smoking status NHIS Unknown if ever smoked [facility] Start: 05-27-2020 Rare [facility] Start: 05-27-2020 None [facility] Start: 05-27-2020 Alone [facility] Start: 05-29-2022 History SDOH Social Connections Phone 3 [facility] Start: 05-29-2022 End: 11-24-2022 Social connection and isolation panel [facility] Do you belong to any clubs or organizations such as islam groups, unions, fraternal or athletic groups, or school groups? No [facility] Are you now , , , , never or living with a partner? [facility] How often to you hav e a drink containing alcohol? Never [facility] Start: 06-09-2012 How many standard drinks containing alcohol do you have on a typical day? Patient does not drink [facility] Do you feel stress - tense, restless, nervous, or anxious, or unable to sleep at night because your mind is troubled all the time - these days [OSQ] Only a little [facility] (I/We) worried sindy er (my/our) food would run out before (I/we) got money to buy more. Never true [facility] Start: 07-16-2020 Gender identity Identifies as female gender (finding) [facility] Start: 07-16-2020 Sexual orientation Heterosexual (finding) [facility] Start: 10-15-2006 Alcohol intake Current non-drinker of alcohol (finding) [facility] Do you feel stress - tense, restless, nervous, or anxious, or unable to sleep at night because your mind is troubled all the time - these days [OSQ] Rather much [facility] Do you feel stress - tense, restless, nervous, or anxious, or unable to sleep at night because your mind is troubled all the time - these days [OSQ] Very much [facility] Are you now , , , , never or living with a partner? [facility] Do you feel stress - tense, restless, nervous, or anxious, or unable to sleep at night because your mind is troubled all the time - these days [OSQ] To some extent [facility] Start: 02-13-2020 Tobacco Comment 6 cigs a day 02/13/20 [facility] Functional Status Date Assessment Result Facility 05-04-2017 Are you deaf, or do you have serious difficulty hearing No 05/04/2017 7:51 PM Kendy Brown, KIRK No [facility] 05-04-2017 Are you blind, or do you have serious difficulty seeing, even when wearing glasses No 05/04/2017 7:51 PM Kendy Brown, KIRK No [facility] 05-04-2017 Do you have serious difficulty walking or climbing stairs No 05/04/2017 7:51 PM Kendy Brown, KIRK No [facility] 05-04-2017 Do you have difficul ty dressing or bathing No 05/04/2017 7:51 PM Kendy Brown, KIRK No [facility] 05-04-2017 Because of a physica l, mental, or emotional condition, do you have difficulty doing errands alone such as visiting a physician's office or shopping No 05/04/2017 7:51 PM Kendy Brown, KIRK No [facility] Mental Status Date Assessment Result Facility 08-26-2023 Cognitive function Level Of Cons ciousness Awake;Alert;Appropriate;Fol lows Commands [facility] Work Phone: 05-18-2023 Cognitive function Voice/Name [facility] Work Phone: 08-09-2021 Cognitive function Level Of Cons ciousness Awake;Alert;Appropriate [facility] Work Phone: 05-04-2017 Because of a physica l, mental, or emotional condition, do you have serious difficulty concentrating, remembering, or making decisions No 05/04/2017 7:51 PM EDT Kendy Pittman RN No [facility] Clinical Notes 01-16-2017 to 02-17-2025 Deion Tracy CPhT - 02/17/2025 3:20 PM EDTTelephone Encounter - Reena Nuñez RN - 01/07/2025 4:11 PM EDTTelephone Encounter - Reena Nuñez RN - 01/07/2025 4:11 PM EDT Note Date & Type Note Facility 02-17-2025 History of Presen t illness Narrative Patient is identified through a medication adherence outreach initiative based on pharmacy claims data from: [employer] Medication Adherence Category: Statins First Review Attribution Status: Correct attribution Medication(s) Atorvastatin 20 mg Medication Status per portal/Epic Reconcile Dispense: Not filled Medication Status per Profile Review: No issues per profile review Patient/provider appropriate for outreach? Yes Patient identified by name and Outreach to patient: Sent/Responded to [employer] What was primary intervention? Remind patient to nut picker or fill Deion Tracy CPhT [facility] Pharm[facility] Team documented in this encounter [facility] 02-17-2025 Note HNO ID: [id number] Author: DEION TRACY CPhT Service: ? Author Type: Spiritual Counselor Type: Progress Notes Filed: 02/17/2025 15:23 Note Text: Patient is identified through a medication adherence outreach initiative based on pharmacy claims data from: [employer] Medication Adherence Category: Statins First Review Attribution Status: Correct attribution Medication(s) Atorvastatin 20 mg Medication Status per portal/Epic Reconcile Dispense: Not filled Medication Status per Profile Review: No issues per profile review Patient/provider appropriate for outreach? Yes Patient identified by name and Outreach to patient: Sent/Responded to [employer] What was primary intervention? Remind patient to nut picker or fill Deion Tracy CPhT [facility] 02-17-2025 Note Patient Outreach ( POHE) JANE STEINBERG ([id number]) 1970 F Date Time Provider Department 02/17/25 AMANDA WALLACE During your visit today, we recorded the following information about you: Deion Tracy CPhT 02/17/2025 3:23 PM Signed Patient is identified through a medication adherence outreach initiative based on pharmacy claims data from: [employer] Medication Adherence Category: Statins First Review Attribution Status: Correct attribution Medication(s) Atorvastatin 20 mg Medication Status per portal/Epic Reconcile Dispense: Not filled Medication Status per Profile Review: No issues per profile review Patient/provider appropriate for outreach? Yes Patient identified by name and Outreach to patient: Sent/Responded to [employer] What was primary intervention? 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 - promethazine (PHENERGAN) 25 mg tablet Take 1 tablet by mouth every 8 hours as needed (for nausea). - famotidine (PEPCID) 40 mg tablet Take 1 tablet by mouth once daily as needed. - meloxicam (MOBIC) 15 mg tablet Take 1 tablet by mouth once daily. - topiramate (TOPAMAX) 25 mg tablet Take 1 tablet by mouth daily at bedtime. - rizatriptan (MAXALT) 10 mg tablet Take 1 tablet by mouth as directed. at onset of headache. May repeat after 2 hours. Do not exceed 30 mg per day. - fluticasone (FLONASE) 50 mcg/actuation nasal spray Use 2 sprays in each nostril once daily. Rinse mouth after use. - amitriptyline 150 mg tablet Take 1 tablet by mouth daily at bedtime. - SODIUM CITRATE ORAL Take by mouth. - ergocalciferol 50,000 unit capsule (VITAMIN D2, DRISDOL) Take 1 tablet by mouth twice weekly [id number], then decrease to 1 tablet weekly. - tiZANidine (ZANAFLEX) 4 mg tablet Take 1 tablet by mouth every 8 hours as needed. - atorvastatin (LIPITOR) 20 mg tablet Take 1 tablet by mouth once daily. - EPINEPHrine (EPIPEN) 0.3 mg/0.3 mL auto-injector Inject intramuscularly. - multivit with minerals/lutein (MULTIVITAMIN 50 PLUS ORAL) Take by mouth. - IBSRELA 50 mg tablet TAKE 1 TABLET BY MOUTH TWICE A DAY 10 MINUTES BEFORE EATING - diclofenac (VOLTAREN) 1 % topical gel Apply 2 g to affected area twice daily. - FASENRA PEN 30 mg/mL auto-injector - Dexlansoprazole (DEXILANT) 60 mg CpDM Take 60 mg by mouth once daily. - magnesium hydroxide (MILK OF MAGNESIA) 400 mg/5 mL suspension Take 15 mL by mouth once daily as needed for constipation. - bisacodyl (DULCOLAX, BISACODYL,) 10 mg supp 1 Suppository by RECTAL route once daily as needed for constipation. - MUCUS RELIEF ER 600 mg 12 hr tablet Take 1,200 mg by mouth twice daily. - montelukast (SINGULAIR) 10 mg tablet Take 1 tablet by mouth daily at bedtime. - bhojuxvrwwi-wtvicgafk-qeqrnnas (TRELEGY ELLIPTA) 200-62.5-25 mcg inhalation powder Inhale as instructed. - albuterol HFA (VENTOLIN HFA) 90 mcg/actuation inhaler Inhale 2 Puffs as instructed every 4 hours as needed for wheezing/shortness of breath. - L. acidophilus-L. rhamnosus 15 billion cell cap Take 1 capsule by mouth once daily. FLORAJEN WOMEN. If on antibiotic, take at least 1-2 hours before or after antibiotic. KEEP REFRIGERATED - albuterol (PROVENTIL) 2.5 mg /3 mL (0.083 %) nebulizer solution Use 3 mL via nebulizer every 6 hours as needed. - COMPACT SPACE CHAMBER as directed. - ipratropium-albuterol (DUONEB) 0.5 mg-3 mg(2.5 mg base)/3 mL nebu Inhale 3 mL as instructed every 4 hours as needed. - PULSE OXIMETER CONTEC 1 Each as needed. - Comp Stocking,Knee,Regular,Med misc 2 Each once daily. Meds Comments as of 06/25/2021: ` Problem List As Of Date 02/17/2025 Noted Resolved Asthma [J45.909] HISTORY OF CANCER OF UTERUS [Z85.42] 06/11/2006 05/18/2016 TOBACCO USE DISORDER [F17.200] 06/11/2006 Anorexia nervosa [F50.00] 06/11/2006 02/14/2024 Bulimia nervosa (HCC) [F50.20] 06/11/2006 02/14/2024 Edema [R60.9] 06/11/2006 05/18/2016 DEPRESSIVE DISORDER NEC [F32.89] 06/27/2006 Community acquired pneumonia [J18.9] 11/03/2015 Cervicalgia [M54.2] 12/31/2015 Intractable chronic cluster headache [G44.021] 12/31/2015 Former tobacco use [Z87.891] 01/26/2016 Pedal edema [R60.0] 01/26/2016 VAIN I (vaginal intraepithelial neoplasia grade*05/18/2016 Centrilobular emphysema (HCC) [J43.2] 05/18/2016 Vitamin D deficiency [E55.9] 07/24/2016 Chronic neck and back pain [M54.2, M54.9, G89.2*08/23/2016 Myofascial pain [M79.18] 08/23/2016 Fibromyalgia [M79.7] (more content not included)... [facility] 01-07-2025 Telephone encounter Note Patient calls to check on status of request below. Notified that prescription was sent to [facility] today with verbalized understanding. Reena Nuñez RN [facility] 01-07-2025 Miscellaneous Notes Patient calls to check on status of request below. Notified that prescription was sent to [facility] today with verbalized understanding. Reena Nuñez RN Prescription Refill Information The patient has been identified by name and date of : Yes Caregiver verified no other encounters exist for this prescription request: Yes Caregiver confirmed with patient/requestor that no other refills are due, in the near future, with this provider at this time: Yes The last office visit in the department: 12/29/24 Does the patient have a future office visit with this provider/department: Yes 03/30/25 Requested Prescriptions Pending Prescriptions Disp Refills loratadine (CLARITIN) 10 mg tablet 30 tablet 5 Sig: Take 1 tablet by mouth once daily. Hermila Roldan LPN January 07, 2025 9:33 AM documented in this encounter [facility] 01-07-2025 Telephone encounter Note Prescription Refill Information The patient has been identified by name and date of : Yes Caregiver verified no other encounters exist for this prescription request: Yes Caregiver confirmed with patient/requestor that no other refills are due, in the near future, with this provider at this time: Yes The last office visit in the department: 12/29/24 Does the patient have a future office visit with this provider/department: Yes 03/30/25 Requested Prescriptions Pending Prescriptions Disp Refills loratadine (CLARITIN) 10 mg tablet 30 tablet 5 Sig: Take 1 tablet by mouth once daily. Hermila Roldan LPN January 07, 2025 9:33 AM [facility] 01-06-2025 Evaluation note Diagnosis Onset Date Resolution Duggan esophagus determined by endoscopy acute January 9:23am Gastritis acute January 06, 2025 9:23am Sphincter of Oddi dysfunction acute January 06, 2025 9 :23am Hypoxia acute January 14, 2025 8:01am Lung nodule acute January 14 8:01am Asthma-COPD overlap syndrome chronic January 14, 2025 8 :01am Smoking greater than 30 pack years chronic January 14, 2025 8 :01am Asthma-COPD overlap syndrome chronic February 06, 2025 8:50am [facility]: [phone] Telephone encounter Note* Telephone Encounter - Abbey Baker RN - 01/05/2025 4:02 PM EDT Pt called and is notified of providers message. Pt voices understanding. She states she called and spoke with their nurse and she said she would talk with Pulmonary provider and get back with her. I told her she could probably give them a call back to see if they had a message for her. Abbey Baker RN [facility]06-30-2025 Miscellaneous Notes* Telephone Encounter - Abbey Baker RN - 01/05/2025 4:02 PM EDT Pt called and is notified of providers message. Pt voices understanding. She states she called and spoke with their nurse and she said she would talk with Pulmonary provider and get back with her. I told her she could probably give them a call back to see if they had a message for her. Abbey Baker RN * Telephone Encounter - Amanda Wallace MD - 01/05/2025 1:13 PM EDT Agree Regards, Amanda Wallace MD * Telephone Encounter - Abbey Baker RN - 01/05/2025 11:49 AM EDT Pt called in and didn't know if she should be calling her PCP or Pulmonary provider. Pt reports since it has been hot and humid outside she has been having issues going outside. She said she tries tostay inside unless she has to go to an appointment or nut picker medication. She states it feels like her throat is swelling, she reports it hinders her breathing but she can still breath. The Pt also reports she has had a consistent dry cough. She reports she will go inside and put her O2 on. I askedthe Pt if she has portable O2 and she states her O2 is actually only for HS. I asked if her O2 is ordered by Pulmonary and she said it was. I told her she would need to go through them to get that changed. Pt is going to call Pulmonary as well. Please call merry hummel. Abbey Baker RN [facility] Telephone encounter Note * Telephone Encounter - Amanda Wallace MD - 01/05/2025 1:13 PM EDT Agree Regards, Amanda Wallace MD [facility]06-30-2025 Telephone encounter Note* Telephone Encounter - Abbey Baker RN - 01/05/2025 11:49 AM EDT Pt called in and didn't know if she should be calling her PCP or Pulmonary provider. Pt reports since it has been hot and humid outside she has been having issues going outside. She said she tries tostay inside unless she has to go to an appointment or nut picker medication. She states it feels like her throat is swelling, she reports it hinders her breathing but she can still breath. The Pt also reports she has had a consistent dry cough. She reports she will go inside and put her O2 on. I askedthe Pt if she has portable O2 and she states her O2 is actually only for HS. I asked if her O2 is ordered by Pulmonary and she said it was. I told her she would need to go through them to get that changed. Pt is going to call Pulmonary as well. Please call merry hummel. Abbey Baker RN [facility]06-26-2025 Radiology Diagnostic study note [facility] Imaging Services [address] [place] [address] Lung Screening MR#: [id number] Acct: [id number] Name: JANE STEINBERG Rep #: [id number] 2 : 1970 F 54 From: Fanta Dyson MD PCP: LAURA HERNANDEZ [facility] Status: [facility] CL Study:Low Dose CT Lung Screening Date of Exam : 01/01/25 Exam# [id number] Ordering Dr: Tiki Valencia NP [facility] PROCEDURE: LOW DOSE CT LUNG SCREENING 01/01/2025 REASON FOR EXAM: SMOKER TECHNIQUE: LOW DOSE CT LUNG SCREENING Coronal and Sagittal reconstruction series were provided. One or more dose reduction techniques were used (e.g., Automated exposure control, adjustment of the mA and/or kV according to patient size, use of iterative reconstruction technique). REFERENCE LINK: [employer] Lung-RADS RADIATION DOSE SUMMARY: CTDlvol: 2 mGy DLP: 66 mGycm COMPARISON: 12/31/2023 FINDINGS: Central airways are patent. Bronchial wall thickening. Biapical scarring, somedensities have a nodular appearance but are stable. Multifocal, bilateral areas of ground-glass airspace disease, some of which was present previously, but interval progression of infectious/inflammatory process. No effusion or pneumothorax. On the left, multiple micro nodules. On the right, multiple micro nodules. Multiple pleural-based nodular densities,stable, favoring pleural tags. Multiple intrapulmonary lymph nodes. Mild bilateral axillary adenopathy, usually reactive in etiology. Unremarkable base of neck. Normalheart size. No acute vascular pathology on noncontrast scanning. Mild mediastinal adenopathy, usually reactive in etiology. Thoracic spine scoliosis and degeneration. No acute chest wall findings. No acute upper abdominal findings. Status post cholecystectomy. CT/Low Dose CT Lung Screening IMPRESSION: Bilateral micro nodules. Lung-RADS Category: 2 Other Significant Findings: Worsening scattered bilateral nonspecific ground- glass airspace disease, most consistent with a chronic infectious/inflammatory process. Advise correlation. Follow up imagingas clinically determined. [facility] CC: NAI Valencia; NAI HERNANDEZ ~ Certified Orthotic Fitter: Signed [facility]06-23-2025 Telephone encounter Note* Telephone Encounter - Vy Cr LPN - 12/29/2024 3:37 PM EDT Duplicate request. Vy Cr LPN [facility]06-23-2025 Miscellaneous Notes* Telephone Encounter - Vy Cr LPN - 12/29/2024 3:37 PM EDT Duplicate request. Vy Cr LPN documented in this encounter[facility] Instructions* Patient Instructions* Laura Hernandez APRN.DUMPER - 12/29/2024 9:13 AM EDT - Refills for promethazine (Phenergan) and famotidine have been sent to [facility] [place]: take promethazine at bedtime as needed for nighttime nausea/vomiting and continue famotidine once nightly before bed for GERD. - Continue using your prescribed nighttime oxygen at 4 L/min as recommended after your overnight test. - Stay indoors with air conditioning during hot weather to help control your COPD. - Bring your rescue inhalers and oral steroids with you on your honeymoon trip so they re readily available if you have breathing trouble. - COVID-19 booster vaccine was given today in this office. - Get the Tdap (tetanus/diphtheria/pertussis) vaccine at your pharmacy before traveling. - Your follow-up appointment with Dr. Hamilton is in mid-January to reassess your GI symptoms. documented in this encounter[facility]25 NoteHNO ID: [id number] Author: LAURA HERNANDEZ APRN.KACY Service: ? Author Type: Nurse Practitioner Type: Progress Notes Filed: 12/29/2024 09:35 Note Text: CC: Patient presents with: Recheck: Medication follow up HPI Jane Steinberg is a 54 year old female who presents today for medication refill Recording using [employer] software for draft documentation of the visit was discussed with the patient/authorized client care representative; all questions welcomed and answered. Patient/authorized client care representative agreed to proceed COPD: - Well-controlled; avoids heat by staying indoors with air conditioning. - Recent increase in nocturnal oxygen to 4 L/min following an overnight test. - Experiences throat tightness when exposed to outdoor allergens, such as cut grass. - Has steroids on hand at home if needed - cough, wheezing, and shortness of breath at baseline. Denies fever, chills, or chest pain. Nocturnal Emesis/GERD/Barretts esophagus: - Recent increase in nocturnal emesis; previously well-controlled with medication. Needs refill on promethazine as she is needing it again. - Taking promethazine more frequently at bedtime to manage symptoms. - Scheduled appointment with Dr. Hamilton in mid-January for further evaluation. - Denies new dysphagia or abdominal pain. REVIEW OF SYSTEMS See HPI PAST MEDICAL HISTORY Diagnosis Date Anorexia nervosa (HCC) 06/11/2006 Stable; treated in past Anxiety Asthma (HCC) 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 02/13/2020 Bulimia nervosa (HCC) 06/11/2006 Stable, treated in past Cancer (HCC) Chest pain Cholelithiasis 07/24/2023 Chronic obstructive pulmonary disease (COPD) (HCC) Emphysema lung (HCC) GERD (gastroesophageal reflux disease) H. pylori infection cronic Hiatal hernia 02/13/2020 small HISTORY OF CANCER OF UTERUS 06/11/2006 2004, Hysterectomy - complete History of COVID-19 07/10/2023 Internal hemorrhoids Lung disease Migraines Osteopenia Overweight (BMI 25.0-29.9) 07/10/2023 Snoring Tobacco use disorder 06/11/2006 Quit 09/2015. Unspecified asthma(493.90) Childhood diagnosis. VAIN (vaginal intraepithelial neoplasia) 2013 Had seen MICRO PHOTOGRAPHER ONC for abnormal pap and colp biospy of vaginal vault VAIN 2013. PAST SURGICAL HISTORY Procedure Laterality Date APPENDECTOMY 1998 COLONOSCOPY 01/12/2023 no specimens, next colonoscopy 2029 EGD WITH BIOPSY(S) 03/13/2017 Dr. Shook EGD WITH BIOPSY(S) 02/13/2020 small hiatal hernia; Duggan's without dysplasia; Dr. Montoya EGD WITH BIOPSY(S) 10/06/2021 H. pylori +; Duggan's without dysplasia; Dr. Riggs EGD WITH BIOPSY(S) 09/12/2022 neg for H. pylori; Dr. Riggs LAPS SURG CHOLECYSTECTOMY W/CHOLANGIOGRAPHY 07/24/2023 PAST SURGICAL HISTORY OF 2004 Lymph Node Bx 1999 TOTAL ABDOMINAL HYSTERECT W/WO RMVL TUBE OVARY 2004 and BSO - pelvic pain/benign ALLERGIES Penicillins MEDICATIONS promethazine (PHENERGAN) 25 mg tablet Take 1 tablet by mouth every 8 hours as needed (for nausea). famotidine (PEPCID) 40 mg tablet Take 1 tablet by mouth once daily as needed. meloxicam (MOBIC) 15 mg tablet Take 1 tablet by mouth once daily. topiramate (TOPAMAX) 25 mg tablet Take 1 tablet by mouth daily at bedtime. rizatriptan (MAXALT) 10 mg tablet Take 1 tablet by mouth as directed. at onset of headache. May repeat after 2 hours. Do not exceed 30 mg per day. fluticasone (FLONASE) 50 mcg/actuation nasal spray Use 2 sprays in each nostril once daily. Rinse mouth after use. amitriptyline 150 mg tablet Take 1 tablet by mouth daily at bedtime. SODIUM CITRATE ORAL Take by mouth. ergocalciferol 50,000 unit capsule (VITAMIN D2, DRISDOL) Take 1 tablet by mouth twice weekly [id number], then decrease to 1 tablet weekly. tiZANidine (ZANAFLEX) 4 mg tablet Take 1 tablet by mouth every 8 hours as needed. atorvastatin (LIPITOR) 20 mg tablet Take 1 tablet by mouth once daily. EPINEPHrine (EPIPEN) 0.3 mg/0.3 mL auto-injector Inject intramuscularly. multivit with minerals/lutein (MULTIVITAMIN 50 PLUS ORAL) Take by mouth. IBSRELA 50 mg tablet TAKE 1 TABLET BY MOUTH TWICE A DAY 10 MINUTES BEFORE EATING diclofenac (VOLTAREN) 1 % topical gel Apply 2 g to affected area twice daily. FASENRA PEN 30 mg/mL auto-injector Dexlansoprazole (DEXILANT) 60 mg CpDM Take 60 mg by mouth once daily. magnesium hydroxide (MILK OF MAGNESIA) 400 mg/5 mL suspension Take 15 mL by mouth once daily as needed for constipation. bisacodyl (DULCOLAX, BISACODYL,) 10 mg supp 1 Suppository by RECTAL route once daily as needed for constipation. MUCUS RELIEF ER 600 mg 12 hr tablet Take 1,200 mg by mouth twice daily. montelukast (SINGULAIR) 10 mg tablet Take 1 tablet by mouth daily at bedtime. kjoeuavefci-nqcpdzeis-eueqyudj (TRELEGY ELLIPTA) 200-62.5-25 mcg inhalation powder Inhale as instructed. albuterol HFA (VENTOLIN HFA) 90 mcg/actuation inhaler Inhale 2 Puffs as instructed every 4 hours as needed for wheezing/shortness of mary (more content not included)...[facility]06-23-2025 History of Present illness Narrative* Laura Hernandez APRN.DUMPER - 12/29/2024 9:06 AM EDT CC: Patient presents with: Recheck: Medication follow up HPI Jane Steinberg is a 54 year old female who presents today for medication refill Recording using [employer] software for draft documentation of the visit was discussed with the patient/authorized client care representative; all questions welcomed and answered. Patient/authorized client care representative agreed to proceed COPD: - Well-controlled; avoids heat by staying indoors with air conditioning. - Recent increase in nocturnal oxygen to 4 L/min following an overnight test. - Experiences throat tightness when exposed to outdoor allergens, such as cut grass. - Has steroids on hand at home if needed - cough, wheezing, and shortness of breath at baseline. Denies fever, chills, or chest pain. Nocturnal Emesis/GERD/Barretts esophagus: - Recent increase in nocturnal emesis; previously well-controlled with medication. Needs refill on promethazine as she is needing it again. - Taking promethazine more frequently at bedtime to manage symptoms. - Scheduled appointment with Dr. Hamilton in mid-January for further evaluation. - Denies new dysphagia or abdominal pain. REVIEW OF SYSTEMS See HPI PAST MEDICAL HISTORY Diagnosis Date Anorexia nervosa (HCC) 06/11/2006 Stable; treated in past Anxiety Asthma (HCC) 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 02/13/2020 Bulimia nervosa (HCC) 06/11/2006 Stable, treated in past Cancer (HCC) Chest pain Cholelithiasis 07/24/2023 Chronic obstructive pulmonary disease (COPD) (HCC) Emphysema lung (HCC) GERD (gastroesophageal reflux disease) H. pylori infection cronic Hiatal hernia 02/13/2020 small HISTORY OF CANCER OF UTERUS 06/11/2006 2004, Hysterectomy - complete History of COVID-19 07/10/2023 Internal hemorrhoids Lung disease Migraines Osteopenia Overweight (BMI 25.0-29.9) 07/10/2023 Snoring Tobacco use disorder 06/11/2006 Quit 09/2015. Unspecified asthma(493.90) Childhood diagnosis. VAIN (vaginal intraepithelial neoplasia) 2013 Had seen MICRO PHOTOGRAPHER ONC for abnormal pap and colp biospy of vaginal vault VAIN 2013. PAST SURGICAL HISTORY Procedure Laterality Date APPENDECTOMY 1998 COLONOSCOPY 01/12/2023 no specimens, next colonoscopy 2029 EGD WITH BIOPSY(S) 03/13/2017 Dr. Shook EGD WITH BIOPSY(S) 02/13/2020 small hiatal hernia; Duggan's without dysplasia; Dr. Montoya EGD WITH BIOPSY(S) 10/06/2021 H. pylori +; Duggan's without dysplasia; Dr. Riggs EGD WITH BIOPSY(S) 09/12/2022 neg for H. pylori; Dr. Riggs LAPS SURG CHOLECYSTECTOMY W/CHOLANGIOGRAPHY 07/24/2023 PAST SURGICAL HISTORY OF 2004 Lymph Node Bx 1999 TOTAL ABDOMINAL HYSTERECT W/WO RMVL TUBE OVARY 2004 and BSO - pelvic pain/benign ALLERGIES Penicillins MEDICATIONS promethazine (PHENERGAN) 25 mg tablet Take 1 tablet by mouth every 8 hours as needed (for nausea). famotidine (PEPCID) 40 mg tablet Take 1 tablet by mouth once daily as needed. meloxicam (MOBIC) 15 mg tablet Take 1 tablet by mouth once daily. topiramate (TOPAMAX) 25 mg tablet Take 1 tablet by mouth daily at bedtime. rizatriptan (MAXALT) 10 mg tablet Take 1 tablet by mouth as directed. at onset of headache. May repeat after 2 hours. Do not exceed 30 mg per day. fluticasone (FLONASE) 50 mcg/actuation nasal spray Use 2 sprays in each nostril once daily. Rinse mouth after use. amitriptyline 150 mg tablet Take 1 tablet by mouth daily at bedtime. SODIUM CITRATE ORAL Take by mouth. ergocalciferol 50,000 unit capsule (VITAMIN D2, DRISDOL) Take 1 tablet by mouth twice weekly [id number], then decrease to 1 tablet weekly. tiZANidine (ZANAFLEX) 4 mg tablet Take 1 tablet by mouth every 8 hours as needed. atorvastatin (LIPITOR) 20 mg tablet Take 1 tablet by mouth once daily. EPINEPHrine (EPIPEN) 0.3 mg/0.3 mL auto-injector Inject intramuscularly. multivit with minerals/lutein (MULTIVITAMIN 50 PLUS ORAL) Take by mouth. IBSRELA 50 mg tablet TAKE 1 TABLET BY MOUTH TWICE A DAY 10 MINUTES BEFORE EATING diclofenac (VOLTAREN) 1 % topical gel Apply 2 g to affected area twice daily. FASENRA PEN 30 mg/mL auto-injector Dexlansoprazole (DEXILANT) 60 mg CpDM Take 60 mg by mouth once daily. magnesium hydroxide (MILK OF MAGNESIA) 400 mg/5 mL suspension Take 15 mL by mouth once daily as needed for constipation. bisacodyl (DULCOLAX, BISACODYL,) 10 mg supp 1 Suppository by RECTAL route once daily as needed for constipation. MUCUS RELIEF ER 600 mg 12 hr tablet Take 1,200 mg by mouth twice daily. montelukast (SINGULAIR) 10 mg tablet Take 1 tablet by mouth daily at bedtime. bgzwqklpnyj-kxssggjmg-wehlcfil (TRELEGY ELLIPTA) 200-62.5-25 mcg inhalation powder Inhale as instructed. albuterol HFA (VENTOLIN HFA) 90 mcg/actuation inhaler Inhale 2 Puffs as instructed every 4 hours asneeded for wheezing/shortness of breath. L. acidophilus-L. rhamnosus 15 billion cell cap Take 1 capsule by mouth once daily. FLORAJEN WOMEN.If on antibiotic, take at least 1-2 hours before or after antibiotic. KEEP REFRIGERATED albuterol (PROVENTIL) 2.5 mg /3 mL (0.083 %) nebulizer solution Use 3 mL via nebulizer every 6 hours as needed. COMPACT SPACE CHAMBER as directed. ipratropium-albuterol (DUONEB) 0.5 mg-3 mg(2.5 mg base)/3 mL nebu Inhale 3 mL as instructed every 4hours as needed. PULSE OXIMETER CONTEC 1 Each as needed. Comp Stocking,Knee,Regular,Med misc 2 Each once daily. loratadine (CLARITIN) 10 mg tablet Take 1 tablet by mouth once daily. FAMILY HISTORY Problem Relation Age of Onset Hypertension Mother Heart Mother Eczema Mother other (AAA) Mother other (Fibromyalgia) Mother Alcohol/Drug Father Alcohol Cancer Father lung Colon Cancer Father Hypertension Sister Asthma Sister other (Migraines) Sister other (Gout) Sister other (Fibromyalgia) Sister Cancer Sister 32 Ovarian cancer Sister 32 Breast Cancer Maternal Aunt 2 maternal aunts. Stomach Cancer Maternal Aunt 70 - 79 other (MICRO PHOTOGRAPHER cancer) No Family History Anesthesia Problems No Family History Blood Clots No Family History Social History Tobacco Use Smoking status: Every Day Current packs/day: 0.00 Average packs/day: 0.3 packs/day for 35.0 years (8.8 ttl pk-yrs) Types: Cigarettes Start date: 11/17/1986 Last attempt to quit: 11/23/2021 Years since quittin.1 Smokeless tobacco: Never Vaping Use Vaping status: Never Used Substance Use Topics Alcohol use: Not Currently Comment: Rarely Drug use: No PHYSICAL EXAM BP 132/80 Pulse 80 Resp 16 Wt 53.1 kg (117 lb) SpO2 94% BMI 21.26 kg/m General Appearance: well appearing, in no acute distress, alert Eyes: conjunctiva pink and moist, no icterus, sclera white, non-injected Lungs: Lungs with inspiratory and expiratory wheezes. No rhonchi, rales. Heart: RRR without murmur, gallop, or rubs. No ectopy Abdomen: Abdomen soft, non-tender. Bowel sounds normal. No masses, organomegaly Health maintenance reviewed with patient: Anxiety Screening Never done Hepatitis B Vaccine(1 of 3 - 19+ 3-dose series) Never done DTaP,Tdap,Td Vaccine(6 - Tdap) due on 07/31/2006 Shingrix Vaccine(1 of 2) Never done Covid-19 Vaccine(6 - 2023- season) due on 03/09/2024 Medicare Advantage Annual Wellness Visit Never done Pneumococcal Vaccine: 50+(2 of 2 - PCV) due on 05/15/2025 Mammogram Screening due on 10/31/2025 Annual PCP Team Chronic Disease Visit due on 12/29/2025 Diabetes Screening due on 11/07/2027 Lipid Screening due on 05/23/2029 Colorectal Cancer Screening due on 01/12/2033 Influenza Vaccine Completed Hepatitis C Screening Completed HIV Screening Completed Cervical Cancer Screening Discontinued DATA REVIEWED: No new labs Assessment/Plan 1. 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 (K22.70) 2. Gastro-esophageal reflux disease without esophagitis (K21.9) 3. History of Helicobacter pylori infection (Z86.19) - Duggan's esophagus and GERD are chronic and had been controlled - History of H. pylori infection, previously difficult to eradicate. - Refilled promethazine 25 mg PO QHS PRN for nocturnal emesis; provided multiple refills. - Follow-up with Dr. Hamilton scheduled for mid-January to reassess management. - follow up in 3 months or earlier if needed 4. Dysphagia, unspecified type (R13.10) - no current dysphagia at this time due to control of GERD, refill needed 5. Chronic obstructive pulmonary disease, unspecified COPD type (HCC) (J44.9) 6. Dependence on supplemental oxygen (Z99.81) - COPD stable; usual wheezing noted on exam. - Advised to stay indoors with air conditioning to prevent exacerbations due to heat and allergens. - Oxygen therapy increased to 4 L/min at night per rug sample beveler's recommendation following overnight oximetry. - Patient has a supply of corticosteroids at home; instructed to bring her PRN medications and steroids on upcoming trip to [facility] in case they are needed 7. Encounter for immunization (Z23) - Administered COVID-19 vaccine in office today. - Advised to obtain Tdap vaccine at the pharmacy before international travel. Prescription instructions reviewed with patient as applicable. Potential red flag symptoms discussed with the patient. Reviewed appropriate action plan to take if red flag symptoms occur. Patient agreeable to treatment plan. Laura Hernandez APRN.CNP documented [facility] NoteHNO ID: [id number] Author: JERRY HUSTON PT Service: ? Author Type: Physical Therapist Type: Progress Notes Filed: 12/16/2024 13:22 Note Text: Episode Visit Count: 1 Therapist That Will Accept/Oversee The Plan Of Care: Jerry Huston PT Start of Care Date: 12/16/24 Onset Date: 07/18/24 Plan of Care Certification Date: 12/16/24 Next Certification Due Date: 01/27/25 Patient Identified by Name and Date of : Yes REHABILITATION AND SPORTS THERAPY PHYSICAL THERAPY EVALUATION PLAN OF CARE: Assessment: Jane Steinberg presents with diagnosis of cervical radiculopathy that interferes with lifting, reaching overhead, sleeping (holding coffee cup) . The patient presents with impairments in ADL's, independence in exercise, overall function, posture, range of motion, strength, symptom management, and tissue tenderness. PROMIS? (Patient-Reported Outcomes Measurement Information System) scores were reviewed and identified as a rehabilitation concern. Prognosis for therapy is Good due to: current objective clinical presentation, good overall health status, good support system/ coping skills. The patient will benefit from skilled therapy services to meet the goals established for this plan of care as noted below. Goals for Episode of Care: established 12/16/24 Patient reported outcome of pain Interference will decrease T -score by a minimum of 5 points. Independent in a Home Exercise Program. Patient will decrease pain to 0/10 at rest and with functional activities to allow patient to improve reaching and lifting. Restore pain free cervical ROM to WFL to allow for improved sleeping tolerance. Sleep throughout the night without pain/symptoms. Patient will increase strength of postural muscles to WFL to allow for improve ability to maintain proper posture, improve mechanics, and decrease pain. Patient will be able to tolerate holding coffee cup, lifting and reaching without increased symptoms. Patient Goals: Alleviate pain and symptoms Time Frame for Goals and Treatment : 01/27/25 Planned Interventions, Frequency, and Duration: Current Frequency: 2x/week Duration: 6 weeks Total Number of Visits Planned: 12 Planned Treatment Interventions: Therapeutic exercise (56110), Neuromuscular re-education (79555), Manual therapy (06847), Therapeutic activities (53177), Self-fci management (79990), Patient/Family/Caregiver Education, Body Mechanics Training PLAN FOR NEXT VISIT: Review, correct and progress HEP to tolerance. Continue with postural stretching and strengthening. Consider the use of manual therapy prn. Patient demonstrates good understanding of plan of care and treatment. The above goals and plan of care were discussed and agreed upon by patient/family. SUBJECTIVE: Pt reports intermittent random shooting pains down R UE to fingers without explanation. She reports that at times she can go days without symptoms. She also reports intermittent weakness in her R hand that accompanies the shooting pains. She denies any consistent pattern to her symptoms. She reports going to the gym 3 days a week to work on core and [employer]. She denies any neck pain at this time. She reports that this can wake her at night. 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 Cervical Arterial Dysfunction Clinical Reasoning: No identified risk factors Red Flags - Cervical Cancer Red Flags: History of Cancer Cancer Clinical Reasoning: Proceed with caution (uterine cancer 1999, currently clear) Infection Clinical Reasoning: No identified risk factors. Cervical Arterial Dysfunction Clinical Reasoning: No identified risk factors Spine History Symptoms Location at Onset: Arm Symptoms Since Onset: Unchanging Pain is Worse Always: (nothing consistently aggravates) Pain is Better Always: (nothing consistently relieves) Previous Episodes: No Sleeping Position: Side lying left Sleep Affected by Pain: Pain awakens Pain: Pain Pain Level: (-8) Pain Location: Arm - Right Description: Sharp Frequency: Intermittent Post Treatment Pain Post Treatment Pain Level: No Change PROMIS Scales 12/09/2024 09/09/2020 Higher is Better Phys Func - T Score 41 (mild dysfunction) Phys Func - Percentile 18 Self-Eff Sympt (more content not included)...[facility] 12-16-2024 History of Present illness Narrative* Jerry Huston, PT - 12/16/2024 1:18 PM EDT Images from the original note were not included. Episode Visit Count: 1 Therapist That Will Accept/Oversee The Plan Of Care: Jerry Huston PT Start of Care Date: 12/16/24 Onset Date: 07/18/24 Plan of Care Certification Date: 12/16/24 Next Certification Due Date: 01/27/25 Patient Identified by Name and Date of : Yes REHABILITATION AND SPORTS THERAPY PHYSICAL THERAPY EVALUATION PLAN OF CARE: Assessment: Jane Steinberg presents with diagnosis of cervical radiculopathy that interferes with lifting, reaching overhead, sleeping (holding coffee cup) . The patient presents with impairments in ADL's, independence in exercise, overall function, posture, range of motion, strength, symptom management, and tissue tenderness. PROMIS (Patient-Reported Outcomes Measurement Information System) scores were reviewed and identified as a rehabilitation concern. Prognosis for therapy is Good due to: current objective clinical presentation, good overall health status, good support system/ coping skills. The patient will benefit from skilled therapy services to meet the goals established for this plan of care as noted below. Goals for Episode of Care: established 12/16/24 Patient reported outcome of pain Interference will decrease T -score by a minimum of 5 points. Independent in a Home Exercise Program. Patient will decrease pain to 0/10 at rest and with functional activities to allow patient to improve reaching and lifting. Restore pain free cervical ROM to WFL to allow for improved sleeping tolerance. Sleep throughout the night without pain/symptoms. Patient will increase strength of postural muscles to WFL to allow for improve ability to maintain proper posture, improve mechanics, and decrease pain. Patient will be able to tolerate holding coffee cup, lifting and reaching without increased symptoms. Patient Goals: Alleviate pain and symptoms Time Frame for Goals and Treatment : 01/27/25 Planned Interventions, Frequency, and Duration: Current Frequency: 2x/week Duration: 6 weeks Total Number of Visits Planned: 12 Planned Treatment Interventions: Therapeutic exercise (54235), Neuromuscular re- education (53441), Manual therapy (28910), Therapeutic activities (96881), Self- fci management (30955), Patient/Family/Caregiver Education, Body Mechanics Training PLAN FOR NEXT VISIT: Review, correct and progress HEP to tolerance. Continue with postural stretching and strengthening. Consider the use of manual therapy prn. Patient demonstrates good understanding of plan of care and treatment. The above goals and plan of care were discussed and agreed upon by patient/family. SUBJECTIVE: Pt reports intermittent random shooting pains down R UE to fingers without explanation. She reportsthat at times she can go days without symptoms. She also reports intermittent weakness in her R hand that accompanies the shooting pains. She denies any consistent pattern to her symptoms. She reports going to the gym 3 days a week to work on [employer] and [employer]. She denies any neck pain at this time. Shereports that this can wake her at night. 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 Cervical Arterial Dysfunction Clinical Reasoning: No identified risk factors Red Flags - Cervical Cancer Red Flags: History of Cancer Cancer Clinical Reasoning: Proceed with caution (uterine cancer 1999, currently clear) Infection Clinical Reasoning: No identified risk factors. Cervical Arterial Dysfunction Clinical Reasoning: No identified risk factors Spine History Symptoms Location at Onset: Arm Symptoms Since Onset: Unchanging Pain is Worse Always: (nothing consistently aggravates) Pain is Better Always: (nothing consistently relieves) Previous Episodes: No Sleeping Position: Side lying left Sleep Affected by Pain: Pain awakens Pain: Pain Pain Level: (-02/15) Pain Location: Arm - Right Description: Sharp Frequency: Intermittent Post Treatment Pain Post Treatment Pain Level: No Change PROMIS Scales 12/09/2024 09/09/2020 Higher is Better Phys Func - T Score 41 (mild dysfunction) Phys Func - Percentile 18 Self-Eff Symptom - T Score 46 (Average) 44 (Average) Self-Eff Symptom - Percentile 34 27 12/09/2024 09/09/2020 Lower is Better Pain Interference - T Score 65 (moderate) 66 (moderate) Pain Interference - Percentile 7 5 T-scores: mean of general population = 50. 5 points is clinically meaningfully difference Percentiles provide an indication of how the patient's score ranks in relation to the general population. Higher percentile rankings indicate better function/quality of life. 50th percentile is the average of the general population and indicates half of respondents had a worse score. OBJECTIVE MEASURES WITH LEVEL OF FUNCTION: Posture / Alignment Posture: Forward head, Increased thoracic kyphosis, Rounded shoulders Reflexes - Upper Extremity R Brachioradialis : Normal R Biceps: Normal L Brachioradialis : Normal L Biceps: Normal Spine Observations R Cervical Spine Palpation Tenderness: Upper trapezius, Levator scapulae L Cervical Spine Palpation Tenderness: No tenderness noted Sensation - Cervical Spine Cervical Spine Sensation: Grossly Intact (but pt does report intermittent numbness and tingling in R UE but sensation is currently normal) Cervical Spine ROM Cervical ROM : Measurement AROM Cervical Flexion AROM (degrees) : 53 Degrees Cervical Extension AROM (degrees) : 50 Degrees Cervical Side-Bend Right AROM (degrees): 45 Degrees Cervical Side-Bend Left AROM (degrees) : 35 Degrees Cervical Rotation Right AROM (degrees) : 82 Degrees Cervical Rotation Left AROM (degrees) : 101 Degrees UE and Cervical Strength Strength Tested: Cervical Cervical Strength: Pt's diagnosis and reported functional difficulties indicate that she will benefit from increased core and postural strength. Special Tests - Cervical Cervical Special Tests: Cervical Compression, Cervical Distraction, Spurling, Vertebral Artery Test Vertebral Artery Test: Negative Cervical Compression: Negative Cervical Distraction: Negative Spurling: Right Negative, Left Negative (L caused stretch but not pain or R UE symptoms) Vitals BP: 134/86 Pulse: 81 Education: Education Learning Preferences: Demonstration, Explanation, Performance, Printed Materials Barriers: None Learning/educational needs: Home exercise program, Plan of Care, Posture, Body Mechanics Education Provided: Yes, see treatment interventions for education provided Education Provided To: Patient Education Mode/Type: Demonstration, Explanation/Discussion, Literature/Printed Materials, Performance Response to Education/Teach Back: States/Identifies, Return Demonstration, Requires Review/Additional Education TREATMENT: PT Treatment Interventions: Therapeutic Exercise, Self-Senior Living Management Evaluation Therapeutic Exercise: 1: Pt was educated on the anatomy of cervical spine and surrounding musculature, likely etiology ofsymptoms and rationale for plan of care recommendations. She was advised to stop any exercise that causes increased pain, especially peripheral symptoms. Pictures were used to clarify education regarding anatomy and etiology. She was advised to avoid R sidebending movements because it could aggravate her symptoms in R UE. 2: *seated R UT stretch 3x30 seconds 3: *seated R levator scapulae stretch 3x30 seconds Skilled Intervention: Patient was educated in proper exercise technique and purpose for exercises. Reviewed and educated patient on additions/changes for home exercise program as above (*). Skilled judgment was used in selection of appropriate interventions. Provided written instruction for home exercise program to facilitate proper performance and compliance. Correct performance of therapeutic exercises was facilitated with verbal, visual, and tactile cuing. Patient education as noted. Self-Senior Living Management: 1: Pt was educated on anatomy, postural correction, the importance of postural correction and the functional implications of postural correction on her symptoms. She was educated on how to use a towel roll in her pillowcase to support her cervical lordosis at night. Proper pillow thickness was also explained. Skilled Intervention: Skilled judgment in the selection of proper modification for activity of daily living/home management based on clinical presentation, deficits, and needs. Reviewed patient specific diagnosis in relation to activities of daily living/home management. Billing * Evaluation Low Complexity: 1 Unit Therapeutic Exercise Treatment Minutes: 17 Self-Care/Home Management Treatment Minutes: 10 Skilled Treatment Time Minutes (timed and untimed codes): 47 Total Session Time (minutes): 47 Session Start Time : 1000 Session Stop Time : 1047 Jerry Huston PT * Jerry Huston PT - 12/16/2024 10:42 AM EDT Program_ID:[id number] Access Code: [email or web address] URL: [email or web address] Date: 12-16-2024 Prepared By: Jerry Huston Program Notes Exercises - Seated Gentle Upper Trapezius Stretch - 3 x daily - 7 x weekly - sets - 3 reps - Gentle Levator Scapulae Stretch - 3 x daily - 7 x weekly - sets - 3 reps documented in this [facility] NoteHNO ID: [id number] Author: LAURA HERNANDEZ APRN.KACY Service: ? Author Type: Nurse Practitioner Type: Progress Notes Filed: 12/10/2024 08:36 Note Text: This Team Access Model visit is a virtual encounter. It required patient-provider interaction for the medical decision making as documented below. Patient agrees to the visit: Yes Patient Location: [place] CC: Patient presents with: Headache HPI Jane Steinberg is a 53 year old female who is contacted today for a virtual visit. This is an established patient of Dr. Amanda Wallace MD. Was seen 2 weeks ago for increase headaches/migraines and started on topiramate. Has not lost weight on this medication. Denies any side effects to this medication specifically fatigue, difficulty with work find, or confusion. Has only had 1 slight headache since starting this medication. Took a maxalt for this which resolved her headache. REVIEW OF SYSTEMS Neurologic: No weakness, numbness, dizziness, memory loss, syncope. PAST MEDICAL HISTORY Diagnosis Date Anorexia nervosa (HCC) 06/11/2006 Stable; treated in past Anxiety Asthma (HCC) 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 02/13/2020 Bulimia nervosa 06/11/2006 Stable, treated in past Cancer (HCC) Chest pain Cholelithiasis 07/24/2023 Chronic obstructive pulmonary disease (COPD) (HCC) Emphysema lung (HCC) GERD (gastroesophageal reflux disease) H. pylori infection cronic Hiatal hernia 02/13/2020 small HISTORY OF CANCER OF UTERUS 06/11/2006 2004, Hysterectomy - complete History of COVID-19 07/10/2023 Internal hemorrhoids Lung disease Migraines Osteopenia Overweight (BMI 25.0-29.9) 07/10/2023 Snoring Tobacco use disorder 06/11/2006 Quit 09/2015. Unspecified asthma(493.90) Childhood diagnosis. VAIN (vaginal intraepithelial neoplasia) 2013 Had seen MICRO PHOTOGRAPHER ONC for abnormal pap and colp biospy of vaginal vault VAIN 2013. PAST SURGICAL HISTORY Procedure Laterality Date APPENDECTOMY 1998 COLONOSCOPY 01/12/2023 no specimens, next colonoscopy 2029 EGD WITH BIOPSY(S) 03/13/2017 Dr. Shook EGD WITH BIOPSY(S) 02/13/2020 small hiatal hernia; Duggan's without dysplasia; Dr. Montoya EGD WITH BIOPSY(S) 10/06/2021 H. pylori +; Duggan's without dysplasia; Dr. Riggs EGD WITH BIOPSY(S) 09/12/2022 neg for H. pylori; Dr. Riggs LAPS SURG CHOLECYSTECTOMY W/CHOLANGIOGRAPHY 07/24/2023 PAST SURGICAL HISTORY OF 2004 Lymph Node Bx 1999 TOTAL ABDOMINAL HYSTERECT W/WO RMVL TUBE OVARY 2004 and BSO - pelvic pain/benign ALLERGIES Penicillins MEDICATIONS meloxicam (MOBIC) 15 mg tablet Take 1 tablet by mouth once daily topiramate (TOPAMAX) 25 mg tablet Take 1 tablet by mouth daily at bedtime. rizatriptan (MAXALT) 10 mg tablet Take 1 tablet by mouth as directed. at onset of headache. May repeat after 2 hours. Do not exceed 30 mg per day. fluticasone (FLONASE) 50 mcg/actuation nasal spray Use 2 sprays in each nostril once daily. Rinse mouth after use. amitriptyline 150 mg tablet Take 1 tablet by mouth daily at bedtime. SODIUM CITRATE ORAL Take by mouth. promethazine (PHENERGAN) 25 mg tablet Take 1 tablet by mouth every 8 hours as needed (for nausea). ergocalciferol 50,000 unit capsule (VITAMIN D2, DRISDOL) Take 1 tablet by mouth twice weekly [id number], then decrease to 1 tablet weekly. tiZANidine (ZANAFLEX) 4 mg tablet Take 1 tablet by mouth every 8 hours as needed. atorvastatin (LIPITOR) 20 mg tablet Take 1 tablet by mouth once daily. EPINEPHrine (EPIPEN) 0.3 mg/0.3 mL auto-injector Inject intramuscularly. multivit with minerals/lutein (MULTIVITAMIN 50 PLUS ORAL) Take by mouth. IBSRELA 50 mg tablet TAKE 1 TABLET BY MOUTH TWICE A DAY 10 MINUTES BEFORE EATING diclofenac (VOLTAREN) 1 % topical gel Apply 2 g to affected area twice daily. FASENRA PEN 30 mg/mL auto-injector Dexlansoprazole (DEXILANT) 60 mg CpDM Take 60 mg by mouth once daily. magnesium hydroxide (MILK OF MAGNESIA) 400 mg/5 mL suspension Take 15 mL by mouth once daily as needed for constipation. bisacodyl (DULCOLAX, BISACODYL,) 10 mg supp 1 Suppository by RECTAL route once daily as needed for constipation. famotidine (PEPCID) 40 mg tablet Take 1 tablet by mouth once daily as needed. MUCUS RELIEF ER 600 mg 12 hr tablet Take 1,200 mg by mouth twice daily. montelukast (SINGULAIR) 10 mg tablet Take 1 tablet by mouth daily at bedtime. twwomfeexhd-vqfivssvp-omemavab (TRELEGY ELLIPTA) 200-62.5-25 mcg inhalation powder Inhale as instructed. albuterol HFA (VENTOLIN HFA) 90 mcg/actuation inhaler Inhale 2 Puffs as instructed every 4 hours as needed for wheezing/shortness of breath. L. acidophilus-L. rhamnosus 15 billion cell cap Take 1 capsule by mouth once daily. FLORAJEN WOMEN. If on antibiotic, take at least 1-2 hours before or after antibiotic. KEEP REFRIGERATED albuterol (PROVENTIL) 2.5 mg /3 mL (0.083 %) nebulizer solution Use 3 mL via nebulizer every 6 hours as needed. COMPACT SPACE CHAMBER as d (more content not included)...[facility]06-04-2025 History of Present illness Narrative* Laura Hernandez APRN.DUMPER - 12/10/2024 8:24 AM EDT This Team Access Model visit is a virtual encounter. It required patient- provider interaction for the medical decision making as documented below. Patient agrees to the visit: Yes Patient Location: [place] CC: Patient presents with: Headache HPI Jane Steinberg is a 53 year old female who is contacted today for a virtual visit. This is an established patient of Dr. Amanda Wallace MD. Was seen 2 weeks ago for increase headaches/migraines and started on topiramate. Has not lost weight on this medication. Denies any side effects to this medication specifically fatigue, difficulty with work find, or confusion. Has only had 1 slight headache since starting this medication. Took a maxalt for this which resolved her headache. REVIEW OF SYSTEMS Neurologic: No weakness, numbness, dizziness, memory loss, syncope. PAST MEDICAL HISTORY Diagnosis Date Anorexia nervosa (HCC) 06/11/2006 Stable; treated in past Anxiety Asthma (HCC) 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 02/13/2020 Bulimia nervosa 06/11/2006 Stable, treated in past Cancer (HCC) Chest pain Cholelithiasis 07/24/2023 Chronic obstructive pulmonary disease (COPD) (HCC) Emphysema lung (HCC) GERD (gastroesophageal reflux disease) H. pylori infection cronic Hiatal hernia 02/13/2020 small HISTORY OF CANCER OF UTERUS 06/11/2006 2004, Hysterectomy - complete History of COVID-19 07/10/2023 Internal hemorrhoids Lung disease Migraines Osteopenia Overweight (BMI 25.0-29.9) 07/10/2023 Snoring Tobacco use disorder 06/11/2006 Quit 09/2015. Unspecified asthma(493.90) Childhood diagnosis. VAIN (vaginal intraepithelial neoplasia) 2013 Had seen MICRO PHOTOGRAPHER ONC for abnormal pap and colp biospy of vaginal vault VAIN 2013. PAST SURGICAL HISTORY Procedure Laterality Date APPENDECTOMY 1998 COLONOSCOPY 01/12/2023 no specimens, next colonoscopy 2029 EGD WITH BIOPSY(S) 03/13/2017 Dr. Shook EGD WITH BIOPSY(S) 02/13/2020 small hiatal hernia; Duggan's without dysplasia; Dr. Montoya EGD WITH BIOPSY(S) 10/06/2021 H. pylori +; Duggan's without dysplasia; Dr. Riggs EGD WITH BIOPSY(S) 09/12/2022 neg for H. pylori; Dr. Riggs LAPS SURG CHOLECYSTECTOMY W/CHOLANGIOGRAPHY 07/24/2023 PAST SURGICAL HISTORY OF 2003 Lymph Node Bx 1999 TOTAL ABDOMINAL HYSTERECT W/WO RMVL TUBE OVARY 2004 and BSO - pelvic pain/benign ALLERGIES Penicillins MEDICATIONS meloxicam (MOBIC) 15 mg tablet Take 1 tablet by mouth once daily topiramate (TOPAMAX) 25 mg tablet Take 1 tablet by mouth daily at bedtime. rizatriptan (MAXALT) 10 mg tablet Take 1 tablet by mouth as directed. at onset of headache. May repeat after 2 hours. Do not exceed 30 mg per day. fluticasone (FLONASE) 50 mcg/actuation nasal spray Use 2 sprays in each nostril once daily. Rinse mouth after use. amitriptyline 150 mg tablet Take 1 tablet by mouth daily at bedtime. SODIUM CITRATE ORAL Take by mouth. promethazine (PHENERGAN) 25 mg tablet Take 1 tablet by mouth every 8 hours as needed (for nausea). ergocalciferol 50,000 unit capsule (VITAMIN D2, DRISDOL) Take 1 tablet by mouth twice weekly [id number], then decrease to 1 tablet weekly. tiZANidine (ZANAFLEX) 4 mg tablet Take 1 tablet by mouth every 8 hours as needed. atorvastatin (LIPITOR) 20 mg tablet Take 1 tablet by mouth once daily. EPINEPHrine (EPIPEN) 0.3 mg/0.3 mL auto-injector Inject intramuscularly. multivit with minerals/lutein (MULTIVITAMIN 50 PLUS ORAL) Take by mouth. IBSRELA 50 mg tablet TAKE 1 TABLET BY MOUTH TWICE A DAY 10 MINUTES BEFORE EATING diclofenac (VOLTAREN) 1 % topical gel Apply 2 g to affected area twice daily. FASENRA PEN 30 mg/mL auto-injector Dexlansoprazole (DEXILANT) 60 mg CpDM Take 60 mg by mouth once daily. magnesium hydroxide (MILK OF MAGNESIA) 400 mg/5 mL suspension Take 15 mL by mouth once daily as needed for constipation. bisacodyl (DULCOLAX, BISACODYL,) 10 mg supp 1 Suppository by RECTAL route once daily as needed for constipation. famotidine (PEPCID) 40 mg tablet Take 1 tablet by mouth once daily as needed. MUCUS RELIEF ER 600 mg 12 hr tablet Take 1,200 mg by mouth twice daily. montelukast (SINGULAIR) 10 mg tablet Take 1 tablet by mouth daily at bedtime. zzjjcxgcvoq-xddaohrjc-ohkvvebp (TRELEGY ELLIPTA) 200-62.5-25 mcg inhalation powder Inhale as instructed. albuterol HFA (VENTOLIN HFA) 90 mcg/actuation inhaler Inhale 2 Puffs as instructed every 4 hours asneeded for wheezing/shortness of breath. L. acidophilus-L. rhamnosus 15 billion cell cap Take 1 capsule by mouth once daily. FLORAJEN WOMEN.If on antibiotic, take at least 1-2 hours before or after antibiotic. KEEP REFRIGERATED albuterol (PROVENTIL) 2.5 mg /3 mL (0.083 %) nebulizer solution Use 3 mL via nebulizer every 6 hours as needed. COMPACT SPACE CHAMBER as directed. ipratropium-albuterol (DUONEB) 0.5 mg-3 mg(2.5 mg base)/3 mL nebu Inhale 3 mL as instructed every 4hours as needed. PULSE OXIMETER CONTEC 1 Each as needed. Comp Stocking,Knee,Regular,Med misc 2 Each once daily. loratadine (CLARITIN) 10 mg tablet Take 1 tablet by mouth once daily. FAMILY HISTORY Problem Relation Age of Onset Hypertension Mother Heart Mother Eczema Mother other (AAA) Mother other (Fibromyalgia) Mother Alcohol/Drug Father Alcohol Cancer Father lung Colon Cancer Father Hypertension Sister Asthma Sister other (Migraines) Sister other (Gout) Sister other (Fibromyalgia) Sister Cancer Sister 32 Ovarian cancer Sister 32 Breast Cancer Maternal Aunt 2 maternal aunts. Stomach Cancer Maternal Aunt 70 - 79 other (MICRO PHOTOGRAPHER cancer) No Family History Anesthesia Problems No Family History Blood Clots No Family History Social History Tobacco Use Smoking status: Every Day Current packs/day: 0.00 Average packs/day: 0.3 packs/day for 35.0 years (8.8 ttl pk-yrs) Types: Cigarettes Start date: 11/17/1986 Last attempt to quit: 11/23/2021 Years since quittin.0 Smokeless tobacco: Never Vaping Use Vaping status: Never Used Substance Use Topics Alcohol use: Not Currently Comment: Rarely Drug use: No EXAM: Virtual visit completed using video, limited exam completed. GENERAL: alert and appropriate, in no distress, well-hydrated, well nourished, and happy, smiling, interactive RESPIRATORY: breathing non-labored CHEST: equal chest rise with normal respiratory effort DATA REVIEWED: No new labs Anxiety Screening Never done Hepatitis B Vaccine(1 of 3 - 19+ 3-dose series) Never done DTaP,Tdap,Td Vaccine(6 - Tdap) due on 07/31/2006 Shingrix Vaccine(1 of 2) Never done Covid-19 Vaccine( - 2023- season) due on 03/09/2024 Pneumococcal Vaccine: 50+(2 of 2 - PCV) due on 05/15/2025 Mammogram Screening due on 10/31/2025 Annual PCP Team Chronic Disease Visit due on 11/24/2025 Diabetes Screening due on 11/07/2027 Lipid Screening due on 05/23/2029 Colorectal Cancer Screening due on 01/12/2033 Influenza Vaccine Completed Hepatitis C Screening Completed HIV Screening Completed Cervical Cancer Screening Discontinued ASSESSMENT/PLAN: 1. Chronic migraine without aura without status migrainosus, not intractable - ICD9: 346.70, ICD10:G43.709 (primary diagnosis) Improved control with topiramate and tolerating well. Will continue use - go to ER for sudden or severe headache, weakness, numbness, confusion, or any other urgent concerns. 2. Acute intractable headache, unspecified headache type - ICD9: 784.0, ICD10: R51.9 As above Prescription instructions reviewed with patient as applicable. Potential red flag symptoms discussed with the patient. Reviewed appropriate action plan to take if red flag symptoms occur. Patient agreeable to treatment plan. During this patient visit I have spent approximately 15 minutes in counseling regarding treatment options and medications. Laura Hernandez APRN.KACY documented in this encounterCos[facility]05-[facility] Telephone encounter Note * Telephone Encounter - Latasha Salamanca MA - 12/04/2024 3:29 PM EDT Addressed in OV. [facility]05-[facility] Miscellaneous Notes* Telephone Encounter - Latasha Salamanca MA - 12/04/2024 3:29 PM EDT Addressed in OV. * Telephone Encounter - Latasha Salamanca MA - 2023 3:25 PM EDT Patient stopped in to let provider know that when in radiology she passed out. She did not fall or hit head, asked patient if she had ate that day or was feeling poorly, patient denied any warning. Patient states it is happening maybe 2 times a week. Patient states she feels fine afterwards just maybe a little shaky. Advised patient to to to ED if happens again. documented in this encounterCoshocton [facility]05-19-2025 NoteHNO ID: [id number] Author: LAURA HERNANDEZ APRN.DUMPER Service: ? Author Type: Nurse Practitioner Type: Progress Notes Filed: 11/24/2024 15:57 Note Text: CC: Patient presents with: F/U 6 Month HPI Jane Steinberg is a 53 year old female who presents today for routine follow up but has had an increase in her migraines. Recording using [employer] software for draft documentation of the visit was discussed with the patient/authorized client care representative; all questions welcomed and answered. Patient/authorized client care representative agreed to proceed Migraines: - Experiencing migraines approximately twice a week for the past 4-6 weeks. - Describes pain as stabbing and crushing, localized to the head. - Associated symptoms include nausea and emesis; denies dizziness, vision changes, confusion, weakness, or numbness. - No photophobia; denies sinus pain, pressure, or ear pain. - No history of head injuries, falls, or car accidents. - Currently taking sumatriptan (Imitrex) twice a week with minimal relief. - Uses Excedrin Migraine and Tylenol Tension for additional pain management. - Previous daily migraines reduced to twice a week. - CT of the brain last fall showed no issues. Fibromyalgia: - Taking amitriptyline before bed for pain management, reports effective control. Asthma: - Breathing reported as pretty good. - No current use of steroids; back to baseline with albuterol use. - Denies fever, chills, increased sputum production, coughing, wheezing, or increased dyspnea. Right Arm Pain: - Intermittent shooting pain in the right arm, severe enough to prevent holding objects like a coffee cup. - Recent ultrasound revealed a swollen lymph node; currently on Zithromax as ordered by general surgery - Scheduled for another ultrasound in 3 months to monitor lymph node size. - Starting physical therapy on Sunday before considering an MRI as they feel this is related to chronic neck issues. - Denies known trauma or injury. REVIEW OF SYSTEMS See HPI PAST MEDICAL HISTORY Diagnosis Date Anorexia nervosa (HCC) 06/11/2006 Stable; treated in past Anxiety Asthma (HCC) 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 02/13/2020 Bulimia nervosa 06/11/2006 Stable, treated in past Cancer (HCC) Chest pain Cholelithiasis 07/24/2023 Chronic obstructive pulmonary disease (COPD) (HCC) Emphysema lung (HCC) GERD (gastroesophageal reflux disease) H. pylori infection cronic Hiatal hernia 02/13/2020 small HISTORY OF CANCER OF UTERUS 06/11/2006 2004, Hysterectomy - complete History of COVID-19 07/10/2023 Internal hemorrhoids Lung disease Migraines Osteopenia Overweight (BMI 25.0-29.9) 07/10/2023 Snoring Tobacco use disorder 06/11/2006 Quit 09/2015. Unspecified asthma(493.90) Childhood diagnosis. VAIN (vaginal intraepithelial neoplasia) 2013 Had seen MICRO PHOTOGRAPHER ONC for abnormal pap and colp biospy of vaginal vault VAIN 2013. PAST SURGICAL HISTORY Procedure Laterality Date APPENDECTOMY 1998 COLONOSCOPY 01/12/2023 no specimens, next colonoscopy 2029 EGD WITH BIOPSY(S) 03/13/2017 Dr. Shook EGD WITH BIOPSY(S) 02/13/2020 small hiatal hernia; Duggan's without dysplasia; Dr. Montoya EGD WITH BIOPSY(S) 10/06/2021 H. pylori +; Duggan's without dysplasia; Dr. Riggs EGD WITH BIOPSY(S) 09/12/2022 neg for H. pylori; Dr. Riggs LAPS SURG CHOLECYSTECTOMY W/CHOLANGIOGRAPHY 07/24/2023 PAST SURGICAL HISTORY OF 2003 Lymph Node Bx 1999 TOTAL ABDOMINAL HYSTERECT W/WO RMVL TUBE OVARY 2004 and BSO - pelvic pain/benign ALLERGIES Penicillins MEDICATIONS azithromycin (ZITHROMAX) 250 mg tablet Take 2 tablets by mouth once daily for 1 day, THEN 1 tablet once daily for 4 days. fluticasone (FLONASE) 50 mcg/actuation nasal spray Use 2 sprays in each nostril once daily. Rinse mouth after use. meloxicam (MOBIC) 15 mg tablet Take 1 tablet by mouth once daily. amitriptyline 150 mg tablet Take 1 tablet by mouth daily at bedtime. SODIUM CITRATE ORAL Take by mouth. promethazine (PHENERGAN) 25 mg tablet Take 1 tablet by mouth every 8 hours as needed (for nausea). ergocalciferol 50,000 unit capsule (VITAMIN D2, DRISDOL) Take 1 tablet by mouth twice weekly [id number], then decrease to 1 tablet weekly. tiZANidine (ZANAFLEX) 4 mg tablet Take 1 tablet by mouth every 8 hours as needed. atorvastatin (LIPITOR) 20 mg tablet Take 1 tablet by mouth once daily. EPINEPHrine (EPIPEN) 0.3 mg/0.3 mL auto-injector Inject intramuscularly. multivit with minerals/lutein (MULTIVITAMIN 50 PLUS ORAL) Take by mouth. diclofenac (VOLTAREN) 1 % topical gel Apply 2 g to affected area twice daily. FASENRA PEN 30 mg/mL auto-injector Dexlansoprazole (DEXILANT) 60 mg CpDM Take 60 mg by mouth once daily. magnesium hydroxide (MILK OF MAGNESIA) 400 mg/5 mL suspension Take 15 mL by mouth once daily as needed for constipation. bisacodyl (DULCOLAX, BISACODYL,) 10 mg supp 1 Suppository by RECTAL route once daily (more content not included)...[facility]05-19-2025 History of Present illness Narrative* Laura Hernandez APRN.DUMPER - 11/24/2024 9:12 AM EDT CC: Patient presents with: F/U 6 Month HPI Jane Steinberg is a 53 year old female who presents today for routine follow up but has had an increase in her migraines. Recording using [employer] software for draft documentation of the visit was discussed with the patient/authorized client care representative; all questions welcomed and answered. Patient/authorized client care representative agreed to proceed Migraines: - Experiencing migraines approximately twice a week for the past 4-6 weeks. - Describes pain as stabbing and crushing, localized to the head. - Associated symptoms include nausea and emesis; denies dizziness, vision changes, confusion, weakness, or numbness. - No photophobia; denies sinus pain, pressure, or ear pain. - No history of head injuries, falls, or car accidents. - Currently taking sumatriptan (Imitrex) twice a week with minimal relief. - Uses Excedrin Migraine and Tylenol Tension for additional pain management. - Previous daily migraines reduced to twice a week. - CT of the brain last fall showed no issues. Fibromyalgia: - Taking amitriptyline before bed for pain management, reports effective control. Asthma: - Breathing reported as pretty good. - No current use of steroids; back to baseline with albuterol use. - Denies fever, chills, increased sputum production, coughing, wheezing, or increased dyspnea. Right Arm Pain: - Intermittent shooting pain in the right arm, severe enough to prevent holding objects like a coffee cup. - Recent ultrasound revealed a swollen lymph node; currently on Zithromax as ordered by general surgery - Scheduled for another ultrasound in 3 months to monitor lymph node size. - Starting physical therapy on Sunday before considering an MRI as they feel this is related to chronic neck issues. - Denies known trauma or injury. REVIEW OF SYSTEMS See HPI PAST MEDICAL HISTORY Diagnosis Date Anorexia nervosa (HCC) 06/11/2006 Stable; treated in past Anxiety Asthma (HCC) 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 02/13/2020 Bulimia nervosa 06/11/2006 Stable, treated in past Cancer (HCC) Chest pain Cholelithiasis 07/24/2023 Chronic obstructive pulmonary disease (COPD) (HCC) Emphysema lung (HCC) GERD (gastroesophageal reflux disease) H. pylori infection cronic Hiatal hernia 02/13/2020 small HISTORY OF CANCER OF UTERUS 06/11/20062003, Hysterectomy - complete History of COVID-19 07/10/2023 Internal hemorrhoids Lung disease Migraines Osteopenia Overweight (BMI 25.0-29.9) 07/10/2023 Snoring Tobacco use disorder 06/11/2006 Quit 09/2015. Unspecified asthma(493.90) Childhood diagnosis. VAIN (vaginal intraepithelial neoplasia) 2013 Had seen MICRO PHOTOGRAPHER ONC for abnormal pap and colp biospy of vaginal vault VAIN 2013. PAST SURGICAL HISTORY Procedure Laterality Date APPENDECTOMY 1998 COLONOSCOPY 01/12/2023 no specimens, next colonoscopy 2029 EGD WITH BIOPSY(S) 03/13/2017 Dr. Shook EGD WITH BIOPSY(S) 02/13/2020 small hiatal hernia; Duggan's without dysplasia; Dr. Montoya EGD WITH BIOPSY(S) 10/06/2021 H. pylori +; Duggan's without dysplasia; Dr. Riggs EGD WITH BIOPSY(S) 09/12/2022 neg for H. pylori; Dr. Riggs LAPS SURG CHOLECYSTECTOMY W/CHOLANGIOGRAPHY 07/24/2023 PAST SURGICAL HISTORY OF 2004 Lymph Node Bx 1999 TOTAL ABDOMINAL HYSTERECT W/WO RMVL TUBE OVARY 2004 and BSO - pelvic pain/benign ALLERGIES Penicillins MEDICATIONS azithromycin (ZITHROMAX) 250 mg tablet Take 2 tablets by mouth once daily for 1 day, THEN 1 tablet once daily for 4 days. fluticasone (FLONASE) 50 mcg/actuation nasal spray Use 2 sprays in each nostril once daily. Rinse mouth after use. meloxicam (MOBIC) 15 mg tablet Take 1 tablet by mouth once daily. amitriptyline 150 mg tablet Take 1 tablet by mouth daily at bedtime. SODIUM CITRATE ORAL Take by mouth. promethazine (PHENERGAN) 25 mg tablet Take 1 tablet by mouth every 8 hours as needed (for nausea). ergocalciferol 50,000 unit capsule (VITAMIN D2, DRISDOL) Take 1 tablet by mouth twice weekly [id number], then decrease to 1 tablet weekly. tiZANidine (ZANAFLEX) 4 mg tablet Take 1 tablet by mouth every 8 hours as needed. atorvastatin (LIPITOR) 20 mg tablet Take 1 tablet by mouth once daily. EPINEPHrine (EPIPEN) 0.3 mg/0.3 mL auto-injector Inject intramuscularly. multivit with minerals/lutein (MULTIVITAMIN 50 PLUS ORAL) Take by mouth. diclofenac (VOLTAREN) 1 % topical gel Apply 2 g to affected area twice daily. FASENRA PEN 30 mg/mL auto-injector Dexlansoprazole (DEXILANT) 60 mg CpDM Take 60 mg by mouth once daily. magnesium hydroxide (MILK OF MAGNESIA) 400 mg/5 mL suspension Take 15 mL by mouth once daily as needed for constipation. bisacodyl (DULCOLAX, BISACODYL,) 10 mg supp 1 Suppository by RECTAL route once daily as needed for constipation. famotidine (PEPCID) 40 mg tablet Take 1 tablet by mouth once daily as needed. MUCUS RELIEF ER 600 mg 12 hr tablet Take 1,200 mg by mouth twice daily. montelukast (SINGULAIR) 10 mg tablet Take 1 tablet by mouth daily at bedtime. zxuxznofvpe-zzhlknedh-wlznopzz (TRELEGY ELLIPTA) 200-62.5-25 mcg inhalation powder Inhale as instructed. albuterol HFA (VENTOLIN HFA) 90 mcg/actuation inhaler Inhale 2 Puffs as instructed every 4 hours asneeded for wheezing/shortness of breath. L. acidophilus-L. rhamnosus 15 billion cell cap Take 1 capsule by mouth once daily. FLORAJEN WOMEN.If on antibiotic, take at least 1-2 hours before or after antibiotic. KEEP REFRIGERATED albuterol (PROVENTIL) 2.5 mg /3 mL (0.083 %) nebulizer solution Use 3 mL via nebulizer every 6 hours as needed. COMPACT SPACE CHAMBER as directed. ipratropium-albuterol (DUONEB) 0.5 mg-3 mg(2.5 mg base)/3 mL nebu Inhale 3 mL as instructed every 4hours as needed. PULSE OXIMETER CONTEC 1 Each as needed. Comp Stocking,Knee,Regular,Med misc 2 Each once daily. loratadine (CLARITIN) 10 mg tablet Take 1 tablet by mouth once daily. topiramate (TOPAMAX) 25 mg tablet Take 1 tablet by mouth daily at bedtime. rizatriptan (MAXALT) 10 mg tablet Take 1 tablet by mouth as directed. at onset of headache. May repeat after 2 hours. Do not exceed 30 mg per day. IBSRELA 50 mg tablet TAKE 1 TABLET BY MOUTH TWICE A DAY 10 MINUTES BEFORE EATING FAMILY HISTORY Problem Relation Age of Onset Hypertension Mother Heart Mother Eczema Mother other (AAA) Mother other (Fibromyalgia) Mother Alcohol/Drug Father Alcohol Cancer Father lung Colon Cancer Father Hypertension Sister Asthma Sister other (Migraines) Sister other (Gout) Sister other (Fibromyalgia) Sister Cancer Sister 32 Ovarian cancer Sister 32 Breast Cancer Maternal Aunt 2 maternal aunts. Stomach Cancer Maternal Aunt 70 - 79 other (MICRO PHOTOGRAPHER cancer) No Family History Anesthesia Problems No Family History Blood Clots No Family History Social History Tobacco Use Smoking status: Every Day Current packs/day: 0.00 Average packs/day: 0.3 packs/day for 35.0 years (8.8 ttl pk-yrs) Types: Cigarettes Start date: 11/17/1986 Last attempt to quit: 11/23/2021 Years since quittin.0 Smokeless tobacco: Never Vaping Use Vaping status: Never Used Substance Use Topics Alcohol use: Not Currently Comment: Rarely Drug use: No PHYSICAL EXAM BP 122/79 (BP Site: Left Arm, BP Position: Sitting, BP Cuff Size: Regular Adult) Pulse 85 Temp 36.4 C (97.6 F) Wt 54.4 kg (120 lb) SpO2 93% BMI 21.80 kg/m General Appearance: well appearing, in no acute distress, alert Eyes: PERRLA, EOM's intact, conjunctiva pink and moist, no icterus, sclera white, non-injected Lungs: Lungs clear to auscultation. No wheezing, rhonchi, rales. Heart: RRR without murmur, gallop, or rubs. No ectopy Neurological: Gait normal. Reflexes normal and symmetric. Sensation intact., speech normal, mental status intact, muscle tone normal, muscle strength normal Health maintenance reviewed with patient: Anxiety Screening Never done Hepatitis B Vaccine(1 of 3 - 19+ 3-dose series) Never done DTaP,Tdap,Td Vaccine(6 - Tdap) due on 07/31/2006 Shingrix Vaccine(1 of 2) Never done Covid-19 Vaccine( - season) due on 03/09/2024 Pneumococcal Vaccine: 50+(2 of 2 - PCV) due on 05/15/2025 Mammogram Screening due on 10/31/2025 Annual PCP Team Chronic Disease Visit due on 11/06/2025 Diabetes Screening due on 11/07/2027 Lipid Screening due on 05/23/2029 Colorectal Cancer Screening due on 01/12/2033 Influenza Vaccine Completed Hepatitis C Screening Completed HIV Screening Completed Cervical Cancer Screening Discontinued DATA REVIEWED: No new labs Assessment/Plan 1. Chronic migraine without aura without status migrainosus, not intractable (G43.709) - Experiencing migraines approximately twice a week, characterized by severe pain and nausea, without photophobia, dizziness, or aura. - Current treatment with sumatriptan is ineffective; patient also uses Excedrin Migraine and Excedrin Tension. - Previous CT of the brain last fall showed no abnormalities. - Initiated topiramate at the lowest dose, to be taken before bed. Discussed potential side effectsincluding somnolence, cognitive effects, and weight loss. - Follow-up in 2 weeks to monitor efficacy and side effects. 2. Fibromyalgia (M79.7) - Pain is well-controlled with current amitriptyline regimen. - Continue current dosage of amitriptyline. 3. Enlarged lymph nodes (R59.9) - Lymphadenopathy noted, with variable presentation on physical examination and ultrasound. - Currently on azithromycin. - Scheduled for a follow-up ultrasound in 3 months to monitor changes in size. 4. Chronic obstructive pulmonary disease, unspecified COPD type (HCC) (J44.9) - Respiratory status stable; no fever, chills, increased sputum production, cough, wheezing, or dyspnea. - Completed course of corticosteroids; using albuterol as needed. - Continue current management. Prescription instructions reviewed with patient as applicable. Potential red flag symptoms discussed with the patient. Reviewed appropriate action plan to take if red flag symptoms occur. Patient agreeable to treatment plan. Laura Hernandez APRN.CNP documented in this [facility] Instructions* Patient Instructions* Laura Hernandez APRN.CNP - 11/24/2024 9:03 AM EDT Continue taking Zithromax as prescribed for your swollen lymph node. Begin physical therapy on Sunday as planned You are scheduled for an ultrasound in 3 months to check on the size of your lymph node as ordered by general surgeries. For your migraines and fibromyalgia pain: - Continue taking your amitriptyline before bedtime as you have been. - Start a new low-dose topiramate for migraine prevention by taking 1 pill before bed. The dose maybe slowly increased if you do not feel side effects such as sleepiness, grogginess, or word-findingdifficulties, and please monitor for any upset stomach or nausea. Please return for a follow-up visit in 2 weeks so we can review how you are tolerating the new medication and address any issues. documented in this encounterCosho[facility]05-16-[facility]25 History of Present illness Narrative* Olga Celis MS - 11/21/2024 6:00 PM EDT [facility] Department of Medical Genetics Consultation Note Genetic Counselor: Olga Celis MS, [facility] [facility] Patient: Jane Steinberg This visit was conducted via [employer]. I have communicated my name and active licensure. The patient's identity and physical location were verified at the time of this visit. Either the patient or their legal client care representative has been informed of the risks and benefits of -- and alternatives to -- treatment through a remote evaluation and consents to proceed with the evaluation remotely. HIGH LEVEL SUMMARY: The patient's personal and family history is potentially suggestive of a hereditary cancer syndrome. The patient provided informed consent for Multi-Cancer panel through [facility]. Results are expected in 2-3 weeks from the time of sample collection. Patient will have blood drawn at a [facility] lab. IDENTIFICATION AND CHIEF COMPLAINT: Deep Ramires APRN.DUMPER requested a consultation for genetic counseling and risk assessment for Jane Steinberg, a 53 year old female, for discussion of her personal and family history of cancer. Shepresents to clinic today to discuss the possibility of a genetic predisposition to cancer, and to further clarify her risks, as well as her family members' risks for cancer. HISTORY OF PRESENT ILLNESS: In 2003, at the age of 33, Jane Steinberg was diagnosed with uterine cancer. This was treated with a hysterectomy. She also had a skin cancer in 2000, unsure which type which was removed. PAST MEDICAL HISTORY Diagnosis Date Anorexia nervosa (HCC) 06/11/2006 Stable; treated in past Anxiety Asthma (HCC) 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 02/13/2020 Bulimia nervosa 06/11/2006 Stable, treated in past Cancer (HCC) Chest pain Cholelithiasis 07/24/2023 Chronic obstructive pulmonary disease (COPD) (HCC) Emphysema lung (HCC) GERD (gastroesophageal reflux disease) H. pylori infection cronic Hiatal hernia 02/13/2020 small HISTORY OF CANCER OF UTERUS 06/11/20062003, Hysterectomy - complete History of COVID-19 07/10/2023 Internal hemorrhoids Lung disease Migraines Osteopenia Overweight (BMI 25.0-29.9) 07/10/2023 Snoring Tobacco use disorder 06/11/2006 Quit 09/2015. Unspecified asthma(493.90) Childhood diagnosis. VAIN (vaginal intraepithelial neoplasia) 2013 Had seen MICRO PHOTOGRAPHER ONC for abnormal pap and colp biospy of vaginal vault VAIN 2013. PAST SURGICAL HISTORY Procedure Laterality Date APPENDECTOMY 1998 COLONOSCOPY 01/12/2023 no specimens, next colonoscopy 2029 EGD WITH BIOPSY(S) 03/13/2017 Dr. Shook EGD WITH BIOPSY(S) 02/13/2020 small hiatal hernia; Duggan's without dysplasia; Dr. Montoya EGD WITH BIOPSY(S) 10/06/2021 H. pylori +; Duggan's without dysplasia; Dr. Riggs EGD WITH BIOPSY(S) 09/12/2022 neg for H. pylori; Dr. Riggs LAPS SURG CHOLECYSTECTOMY W/CHOLANGIOGRAPHY 07/24/2023 PAST SURGICAL HISTORY OF 2004 Lymph Node Bx 1999 TOTAL ABDOMINAL HYSTERECT W/WO RMVL TUBE OVARY 2004 and BSO - pelvic pain/benign CANCER SURVEILLANCE HISTORY: Mammograms: last 10/2024 Breast MRI's: N/A Breast Biopsies: N/A Colonoscopy: last 01/2023 EGD: last 03/2024 GI Polyps: no polyps per pt report Dermatology: No REPRODUCTIVE HISTORY AND PERSONAL RISK ASSESSMENT FACTORS: Weight: Last 1 Encounter Wt Readings: Date: Wt: 11/06/2024 55.2 kg (121 lb 12.8 oz) Height: Last 1 Encounter Ht Readings: Date: Ht: 10/31/2024 158 cm (5' 2.21) Menarche was at age 11 Surgical menopause Uterus Intact: No Ovaries Intact: No First live at age 14 She has not used HRT in the past. SOCIAL HISTORY: Social History Tobacco Use Smoking status: Every Day Current packs/day: 0.00 Average packs/day: 0.3 packs/day for 35.0 years (8.8 ttl pk-yrs) Types: Cigarettes Start date: 11/17/1986 Last attempt to quit: 11/23/2021 Years since quittin.9 Smokeless tobacco: Never Vaping Use Vaping status: Never Used Substance Use Topics Alcohol use: Not Currently Comment: Rarely Drug use: No FAMILY HISTORY: We obtained a detailed, 4-generation family history. Significant diagnoses are listed below: Father with pancreatic cancer in 50s Paternal half-sister with ovarian cancer in 30s Maternal aunt with breast cancer in 40s, pancreatic cancer in 70s Maternal aunt with breast cancer in 40s Maternal cousin with uterine cancer in 40s Maternal grandmother with brain cancer in 60s FAMILY HISTORY Problem Relation Age of Onset Hypertension Mother Heart Mother Eczema Mother other (AAA) Mother other (Fibromyalgia) Mother Alcohol/Drug Father Alcohol Cancer Father lung Colon Cancer Father Hypertension Sister Asthma Sister other (Migraines) Sister other (Gout) Sister other (Fibromyalgia) Sister Cancer Sister 32 Ovarian cancer Sister 32 Breast Cancer Maternal Aunt 2 maternal aunts. Stomach Cancer Maternal Aunt 70 - 79 other (MICRO PHOTOGRAPHER cancer) No Family History Anesthesia Problems No Family History Blood Clots No Family History The patient's maternal ancestors are of mixed descent and paternal ancestors are of mixed descent. There is no known Ashkenazi Yarsani ancestry. There is no known consanguinity. A copy of the patient's pedigree will be available under the scanned documents tab following today's visit. GENETIC COUNSELING RISK ASSESSMENT, DISCUSSION, AND SUGGESTED FOLLOW UP: We reviewed the natural history and genetic etiology of sporadic, familial and hereditary cancer syndromes. 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 We discussed that identification of a hereditary cancer syndrome may help her care providers tailorher medical management. If a mutation is detected, the National Comprehensive Cancer Network and/[facility] opinion recommendations could include increased cancer surveillance and prophylactic surgeryoptions. If a mutation is detected, the patient will be referred back to the referring provider andto any additional appropriate care providers to discuss the relevant options. Inheritance of hereditary cancer syndromes was discussed with the patient. If a mutation is not found in the patient, this will decrease the likelihood of a hereditary cancersyndrome as the explanation for the patient's personal and family history of cancer. However, it cannot completely rule out this possibility. Cancer surveillance options would be discussed for the patient according to the appropriate standard National Comprehensive Cancer Network and [place] [employer] guidelines, with consideration of their personal and family history risk factors. In this case, the patient will be referred back to their care providers for discussions of management. Based on this assessment of the patient's family and personal history, genetic testing is recommended. The patient was offered Multi-Cancer panel through [facility]. After considering the risks, benefits, and limitations, the patient chose to pursue and provided informed consent for the following testing: Multi-Cancer panel through [facility]. The Multi-Cancer Panel includes the following 70 genes: AIP, ALK, APC, DANI, AXIN2, BAP1, BARD1, BLM, BMPR1A, BRCA1, BRCA2, BRIP1, CDC73, CDH1, CDK4, CDKN1B, CDKN2A, CHEK2, CTNNA1, DICER1, EGFR, EPCAM, FH, FLCN, GREM1, HOXB13, KIT, LZTR1, MAX, MBD4, MEN1, MET, MITF, MLH1, MSH2, MSH3, MSH6, MUTYH, NF1, NF2, NTHL1, PALB2, PDGFRA, PMS2, POLD1, POLE, POT1, CDLDT0F, PTCH1, PTEN, RAD51C, RAD51D, RB1, RET, SDHA, SDHAF2, SDHB, SDHC, SDHD, SMAD4, SMARCA4, SMARCB1, SMARCE1, STK11, SUFU, VUJR163, TP53, TSC1, TSC2, VHL. The Multi-Cancer panel looks at genes associated with cancers of the breast, gynecologic tract (ovarian, uterine/endometrial), gastrointestinal system (colorectal, gastric, pancreatic), endocrine glands (thyroid, parathyroid, pituitary, adrenal glands), genitourinary tract (renal/urinary tract, prostate), skin (melanoma, basal cell carcinoma), and brain/nervous system. We discussed that an NGS panel can rarely result in an unexpected finding which may or may not be related to the presenting phenotype. We discussed that [employer] may contact the patient regarding billing. The patient should watch for this communication and respond promptly. The patient should contact [employer] directly with anybilling questions (ph. [phone] or [email or web address]). Per the patient's request, we will contact her by [employer] or telephone to review these results. A follow up genetic counseling visit will be scheduled if requested. I spent a total of 30 minutes on the date of the service, which included preparing to see the patient, completing clinical documentation, obtaining and/or reviewing separately obtained history, counseling and educating the patient/family/caregiver, ordering tests, communicating with other HCPs (not separately reported), independently interpreting results (not separately reported), communicating results to the patient/family/caregiver, and care coordination (not separately reported). This plan is being carried out under the oversight of Dr. Gerri Quezada. This note will also be sent to the referring provider via the electronic medical record. Olga Celis MS, [facility] CC: Deep Ramires APRN.DUMPER Dr. Gerri Quezada documented in this encounterCoshocton [facility]05-16-[facility]25 NoteHNO ID: [id number] Author: OLGA CELIS MS Service: ? Author Type: Genetic Counselor Type: Progress Notes Filed: 11/29/2024 09:46 Note Text: [facility] Department of Medical Genetics Consultation Note Genetic Counselor: Olga Celis MS, [facility] Patient: Jane Steinberg This visit was conducted via [employer]aren[employer]. I have communicated my name and active licensure. The patient's identity and physical location were verified at the time of this visit. Either the patient or their legal client care representative has been informed of the risks and benefits of -- and alternatives to -- treatment through a remote evaluation and consents to proceed with the evaluation remotely. HIGH LEVEL SUMMARY: The patient's personal and family history is potentially suggestive of a hereditary cancer syndrome. The patient provided informed consent for Multi-Cancer panel through [facility]. Results are expected in 2-3 weeks from the time of sample collection. Patient will have blood drawn at a [facility] lab. IDENTIFICATION AND CHIEF COMPLAINT: Deep Ramires APRN.[facility] requested a consultation for genetic counseling and risk assessment for Jane Steinberg, a 53 year old female, for discussion of her personal and family history of cancer. She presents to clinic today to discuss the possibility of a genetic predisposition to cancer, and to further clarify her risks, as well as her family members' risks for cancer. HISTORY OF PRESENT ILLNESS: In 2003, at the age of 33, Jane Steinberg was diagnosed with uterine cancer. This was treated with a hysterectomy. She also had a skin cancer in 2000, unsure which type which was removed. PAST MEDICAL HISTORY Diagnosis Date Anorexia nervosa (HCC) 06/11/2006 Stable; treated in past Anxiety Asthma (HCC) 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 02/13/2020 Bulimia nervosa 06/11/2006 Stable, treated in past Cancer (HCC) Chest pain Cholelithiasis 07/24/2023 Chronic obstructive pulmonary disease (COPD) (HCC) Emphysema lung (HCC) GERD (gastroesophageal reflux disease) H. pylori infection cronic Hiatal hernia 02/13/2020 small HISTORY OF CANCER OF UTERUS 06/11/2006 2004, Hysterectomy - complete History of COVID-19 07/10/2023 Internal hemorrhoids Lung disease Migraines Osteopenia Overweight (BMI 25.0-29.9) 07/10/2023 Snoring Tobacco use disorder 06/11/2006 Quit 09/2015. Unspecified asthma(493.90) Childhood diagnosis. VAIN (vaginal intraepithelial neoplasia) 2013 Had seen MICRO PHOTOGRAPHER ONC for abnormal pap and colp biospy of vaginal vault VAIN 1 2013. PAST SURGICAL HISTORY Procedure Laterality Date APPENDECTOMY 1998 COLONOSCOPY 01/12/2023 no specimens, next colonoscopy 2029 EGD WITH BIOPSY(S) 03/13/2017 Dr. Shook EGD WITH BIOPSY(S) 02/13/2020 small hiatal hernia; Duggan's without dysplasia; Dr. Montoya EGD WITH BIOPSY(S) 10/06/2021 H. pylori +; Duggan's without dysplasia; Dr. Riggs EGD WITH BIOPSY(S) 09/12/2022 neg for H. pylori; Dr. Riggs LAPS SURG CHOLECYSTECTOMY W/CHOLANGIOGRAPHY 07/24/2023 PAST SURGICAL HISTORY OF 2004 Lymph Node Bx 1999 TOTAL ABDOMINAL HYSTERECT W/WO RMVL TUBE OVARY 2004 and BSO - pelvic pain/benign CANCER SURVEILLANCE HISTORY: Mammograms: last 10/2024 Breast MRI's: N/A Breast Biopsies: N/A Colonoscopy: last 01/2023 EGD: last 03/2024 GI Polyps: no polyps per pt report Dermatology: No REPRODUCTIVE HISTORY AND PERSONAL RISK ASSESSMENT FACTORS: Weight: Last 1 Encounter Wt Readings: Date: Wt: 11/06/2024 55.2 kg (121 lb 12.8 oz) Height: Last 1 Encounter Ht Readings: Date: Ht: 10/31/2024 158 cm (5' 2.21) Menarche was at age 11 Surgical menopause Uterus Intact: No Ovaries Intact: No First live at age 14 She has not used HRT in the past. SOCIAL HISTORY: Social History Tobacco Use Smoking status: Every Day Current packs/day: 0.00 Average packs/day: 0.3 packs/day for 35.0 years (8.8 ttl pk-yrs) Types: Cigarettes Start date: 11/17/1986 Last attempt to quit: 11/23/2021 Years since quittin.9 Smokeless tobacco: Never Vaping Use Vaping status: Never Used Substance Use Topics Alcohol use: Not Currently Comment: Rarely Drug use: No FAMILY HISTORY: We obtained a detailed, 4-generation family history. Significant diagnoses are listed below: FAMILY HISTORY Problem Relation Age of Onset Hypertension Mother Heart Mother Eczema Mother other (AAA) Mother other (Fibromyalgia) Mother Alcohol/Drug Father Alcohol Cancer Father lung Colon Cancer Father Hypertension Sister Asthma Sister other (Migraines) Sister other (Gout) Sister other (Fibromyalgia) Sister Cancer Sister 32 Ovarian cancer Sister 32 Breast Cancer Maternal Aunt 2 maternal aunts. Stomach Cancer Maternal Aunt 70 - 79 other (MICRO PHOTOGRAPHER cancer) No Family History Anesthesia Problems No Family History Blood Clots No Family History The patient's maternal ancestors (more content not included)...[facility]05-15-2025 Instructions* Patient Instructions* Melanie Shook MD - 11/20/2024 10:10 AM EDT We discussed your tender lymph node and arm pain: - The chest scan and ultrasound show no concerning findings. The lymph node does not appear enlarged or abnormal, and it does not resemble a lymphoma lymph node. The radiologist recommended a follow-up ultrasound in 3 months to monitor for any changes. I have ordered this test for you. - The lymph node tenderness is likely due to a reactive process, similar to how lymph nodes respondto infections. This is not concerning at this time. - I do not recommend a biopsy of the lymph node at this point, as it appears normal and does not require removal. - I prescribed Zithromax (antibiotic) to see if it helps reduce the lymph node tenderness. Take 2 tablets on the first day, followed by 1 tablet daily for the next 4 days. This prescription has been sent to your preferred [facility] pharmacy. - If the lymph node grows or becomes more painful, please return sooner for evaluation. We discussed your arm pain: - The arm pain does not appear to be related to the lymph node. It may be due to a musculoskeletal issue, such as a pinched nerve in your neck or strain. This type of pain is often referred to as radicular pain. - I recommend discussing this further with your primary care doctor, who may refer you to a musculoskeletal or claim benefit specialist for evaluation. Physical therapy is often the first step in managing these types of symptoms. Follow-up: - Please complete the prescribed course of Zithromax. - Schedule the follow-up ultrasound in 3 months to monitor the lymph node. - If the lymph node grows, becomes more painful, or if your symptoms worsen, please return for evaluation sooner. documented in this encounterCoshocton [facility]05-15-2025 NoteHNO ID: [id number] Author: MELANIE SHOOK MD Service: ? Author Type: Physician Type: Progress Notes Filed: 11/20/2024 10:10 Note Text: FOLLOW UP VISIT NAME: Jane Shelley [facility] NO.: [id number] DATE OF SERVICE: 11/20/2024 : 1970 REFERRING PHYSICIAN: Amanda Wallace MD Jane is a patient I am following for a palpable tender lymph node and associated arm pain. Yohannes is a 53-year-old female presenting for evaluation of a tender lymph node and associated arm pain. Yohannes reports a tender lymph node and associated arm pain. She has a history of a tight neck and is experiencing pain radiating down her arm. She inquires about the possibility of a pinched nerve in her neck or a strain. She has a history of brittle bone. CT scan of the chest and axillary ultrasound were obtained which demonstrated: IMPRESSION: The lymph node in the right axilla is probably benign. Follow-up with diagnostic ultrasound is recommended in 3 months. BI-RADS Category 3: Probably Benign Interpreting Radiologist: Claire Nelson M.D. Electronically signed on: 11/18/2024 IMPRESSION: 1. Stable mildly prominent intrathoracic lymphadenopathy dating back to May 2023. 2. Peribronchial cuffing which may be seen with small airways inflammation. 3. Stable subcentimeter pulmonary nodules. VITALS: There were no vitals taken for this visit. Assessment 1. Lymphadenopathy (R59.1) Localized enlarged lymph nodes (R59.0) CT scan shows normal-sized lymph nodes without any worrisome enlargement. Ultrasound previously showed a lymph node with a slightly larger hilum, but no signs consistent with lymphoma. Tenderness suggests a reactive lymph node rather than a malignant process. - Prescribed Zithromax, 2 tablets on the first day, followed by 1 tablet daily for the next 4 days. - Ordered follow-up ultrasound in 3 months to monitor for any changes. 2. Pain in right arm (M79.601) Radiculopathy, cervical region (M54.12) No evidence of enlarged lymph nodes near the brachial plexus on CT scan. Pain is likely musculoskeletal or related to cervical radiculopathy rather than lymphadenopathy. - Recommended evaluation by musculoskeletal orthospine or neurosurgical claim benefit specialist. 3. Encounter for follow-up examination after completed treatment for conditions other than malignant neoplasm (Z09) 4. Brittle bone disease (HCC) (Q78.0) Not within my area of expertise. Diagnoses: (R59.1) Lymphadenopathy (primary encounter diagnosis) Return to Clinic: The patient is instructed to follow-up with me in 3 months, after the testing has been completed. Melanie Shook [facility]05-15-2025 History of Present illness Narrative* Melanie Shook MD - 11/20/2024 10:06 AM EDT FOLLOW UP VISIT NAME: Jane Shelley [facility] NO.: [id number] DATE OF SERVICE: 11/20/2024 : 1970 REFERRING PHYSICIAN: Amanda Wallace MD Jane is a patient I am following for a palpable tender lymph node and associated arm pain. Yohannes is a 53-year-old female presenting for evaluation of a tender lymph node and associated arm pain. Yohannes reports a tender lymph node and associated arm pain. She has a history of a tight neck and isexperiencing pain radiating down her arm. She inquires about the possibility of a pinched nerve in her neck or a strain. She has a history of brittle bone. CT scan of the chest and axillary ultrasound were obtained which demonstrated: IMPRESSION: The lymph node in the right axilla is probably benign. Follow-up with diagnostic ultrasound is recommended in 3 months. BI-RADS Category 3: Probably Benign Interpreting Radiologist: Claire Nelson M.D. Electronically signed on: 11/18/2024 IMPRESSION: 1. Stable mildly prominent intrathoracic lymphadenopathy dating back to May 2023. 2. Peribronchial cuffing which may be seen with small airways inflammation. 3. Stable subcentimeter pulmonary nodules. VITALS: There were no vitals taken for this visit. Assessment 1. Lymphadenopathy (R59.1) Localized enlarged lymph nodes (R59.0) CT scan shows normal-sized lymph nodes without any worrisome enlargement. Ultrasound previously showed a lymph node with a slightly larger hilum, but no signs consistent with lymphoma. Tenderness suggests a reactive lymph node rather than a malignant process. - Prescribed Zithromax, 2 tablets on the first day, followed by 1 tablet daily for the next 4 days. - Ordered follow-up ultrasound in 3 months to monitor for any changes. 2. Pain in right arm (M79.601) Radiculopathy, cervical region (M54.12) No evidence of enlarged lymph nodes near the brachial plexus on CT scan. Pain is likely musculoskeletal or related to cervical radiculopathy rather than lymphadenopathy. - Recommended evaluation by musculoskeletal orthospine or neurosurgical claim benefit specialist. 3. Encounter for follow-up examination after completed treatment for conditions other than malignant neoplasm (Z09) 4. Brittle bone disease (HCC) (Q78.0) Not within my area of expertise. Diagnoses: (R59.1) Lymphadenopathy (primary encounter diagnosis) Return to Clinic: The patient is instructed to follow-up with me in 3 months, after the testing hasbeen completed. Melanie Shook MD [facility] History of Present illness Narrative* Nichole Sage RDMS - 11/18/2024 8:30 AM EDT Radiology Service Progress Note PATIENT NAME: Jane Steinberg DATE OF SERVICE: November 18, 2024 TIME: 3:09 PM PATIENT IDENTITY VERIFICATION COMPLETED USING TWO (2) IDENTIFIERS: Name and Date of confirmedby patient verbally. FALL SCREENING: Has the patient had 2 falls in the last year or 1 fall with injury or currently using an Ambulatory Assistive Device (Walker, Cane, Wheelchair, Crutches, etc.)? No PATIENT GENDER DATA: Assigned female at . status: : No status:NO. PATIENT RELEVANT IMPLANT DATA REVIEWED: Not Applicable PATIENT PRESENTS WITH AN IMPLANTABLE OR ATTACHED SHAREMILKER: No RADIOLOGY DEPARTMENT: Ultrasound PERIPHERAL IV DATA: Not applicable SIGNED BY: Nichole Sage RDMS November 18, 2024 3:09 PM documented in this encounterCos[facility]05-13-[facility]25 NoteHNO ID: [id number] Author: NICHOLE SAGE RDMS Service: ? Author Type: Food Safety Manager Type: Progress Notes Filed: 11/18/2024 15:09 Note Text: Radiology Service Progress Note PATIENT NAME: Jane Steinberg DATE OF SERVICE: November 18, 2024 TIME: 3:09 PM PATIENT IDENTITY VERIFICATION COMPLETED USING TWO (2) IDENTIFIERS: Name and Date of confirmed by patient verbally. FALL SCREENING: Has the patient had 2 falls in the last year or 1 fall with injury or currently using an Ambulatory Assistive Device (Walker, Cane, Wheelchair, Crutches, etc.)? No PATIENT GENDER DATA: Assigned female at . status: : No status: NO. PATIENT RELEVANT IMPLANT DATA REVIEWED: Not Applicable PATIENT PRESENTS WITH AN IMPLANTABLE OR ATTACHED SHAREMILKER: No RADIOLOGY DEPARTMENT: Ultrasound PERIPHERAL IV DATA: Not applicable SIGNED BY: Nichole Sage RDMS November 18, 2024 3:09 [facility]05-13-2025 History of Present illness Narrative* Mike Mojica RT(R) - 11/18/2024 8:00 AM EDT Radiology Service Progress Note PATIENT NAME: Jane Steinberg DATE OF SERVICE: November 18, 2024 TIME: 2:51 PM PATIENT IDENTITY VERIFICATION COMPLETED USING TWO (2) IDENTIFIERS: Name and Date of confirmedby patient verbally. FALL SCREENING: Has the patient had 2 falls in the last year or 1 fall with injury or currently using an Ambulatory Assistive Device (Walker, Cane, Wheelchair, Crutches, etc.)? No PATIENT GENDER DATA: Assigned female at . status: : No status:NO. PATIENT RELEVANT IMPLANT DATA REVIEWED: Yes PATIENT PRESENTS WITH AN IMPLANTABLE OR ATTACHED SHAREMILKER: No RADIOLOGY DEPARTMENT: CT; Exam(s) Completed: Chest PERIPHERAL IV DATA: Not applicable SIGNED BY: RT Bj(R) November 18, 2024 2:51 PM documented in this encounterCos[facility]05-13-2025 NoteHNO ID: [id number] Author: MIKE MOJICA RT(Lashae) Service: ? Author Type: Food Safety Manager Type: Progress Notes Filed: 11/18/2024 14:52 Note Text: Radiology Service Progress Note PATIENT NAME: Jane Steinberg DATE OF SERVICE: November 18, 2024 TIME: 2:51 PM PATIENT IDENTITY VERIFICATION COMPLETED USING TWO (2) IDENTIFIERS: Name and Date of confirmed by patient verbally. FALL SCREENING: Has the patient had 2 falls in the last year or 1 fall with injury or currently using an Ambulatory Assistive Device (Walker, Cane, Wheelchair, Crutches, etc.)? No PATIENT GENDER DATA: Assigned female at . status: : No status: NO. PATIENT RELEVANT IMPLANT DATA REVIEWED: Yes PATIENT PRESENTS WITH AN IMPLANTABLE OR ATTACHED SHAREMILKER: No RADIOLOGY DEPARTMENT: CT; Exam(s) Completed: Chest PERIPHERAL IV DATA: Not applicable SIGNED BY: RT Bj(Lashae) November 18, 2024 2:51 [facility]05-01-2025 NoteHNO ID: [id number] Author: MELANIE SHOOK MD Service: ? Author Type: Physician Type: Progress Notes Filed: 11/08/2024 07:37 Note Text: HISTORY AND PHYSICAL Jane Steinberg 1970 REFERRING PHYSICIAN: Deep Ramires APRN.CNP CHIEF COMPLAINT: Consult (Bilat axillary swelling. R>L has gotten worse and more painful over the past few months) HPI:Yohannes is a 53-year-old female presenting with bilateral axillary masses. Yohannes reports bilateral axillary masses, with the right side being more prominent. An ultrasound was performed approximately one year ago, which reportedly showed no abnormalities. However, Yohannes notes that the masses have become painful over the past few months. She initially thought she might be imagining the masses, but her OB-MICRO PHOTOGRAPHER, Deep, confirmed the presence of a mass on the right side during a recent examination. The patient is being seen by me today at the request of Deep Ramires APRN.CNP my opinion and advice regarding palpable axillary mass. PAST MEDICAL HISTORY Diagnosis Date Anorexia nervosa (HCC) 06/11/2006 Stable; treated in past Anxiety Asthma (HCC) 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 02/13/2020 Bulimia nervosa 06/11/2006 Stable, treated in past Cancer (HCC) Chest pain Cholelithiasis 07/24/2023 Chronic obstructive pulmonary disease (COPD) (HCC) Emphysema lung (HCC) GERD (gastroesophageal reflux disease) H. pylori infection cronic Hiatal hernia 02/13/2020 small HISTORY OF CANCER OF UTERUS 06/11/2006 2004, Hysterectomy - complete History of COVID-19 07/10/2023 Internal hemorrhoids Lung disease Migraines Osteopenia Overweight (BMI 25.0-29.9) 07/10/2023 Snoring Tobacco use disorder 06/11/2006 Quit 09/2015. Unspecified asthma(493.90) Childhood diagnosis. VAIN (vaginal intraepithelial neoplasia) 2013 Had seen MICRO PHOTOGRAPHER ONC for abnormal pap and colp biospy of vaginal vault VAIN 2013. PAST SURGICAL HISTORY Procedure Laterality Date APPENDECTOMY 1998 COLONOSCOPY 01/12/2023 no specimens, next colonoscopy 2029 EGD WITH BIOPSY(S) 03/13/2017 Dr. Shook EGD WITH BIOPSY(S) 02/13/2020 small hiatal hernia; Duggan's without dysplasia; Dr. Montoya EGD WITH BIOPSY(S) 10/06/2021 H. pylori +; Duggan's without dysplasia; Dr. Riggs EGD WITH BIOPSY(S) 09/12/2022 neg for H. pylori; Dr. Riggs LAPS SURG CHOLECYSTECTOMY W/CHOLANGIOGRAPHY 07/24/2023 PAST SURGICAL HISTORY OF 2004 Lymph Node Bx 1999 TOTAL ABDOMINAL HYSTERECT W/WO RMVL TUBE OVARY 2004 and BSO - pelvic pain/benign Current Outpatient Medications Medication Sig predniSONE (DELTASONE) 20 mg tablet Take 2 tablets by mouth once daily. fluticasone (FLONASE) 50 mcg/actuation nasal spray Use 2 sprays in each nostril once daily. Rinse mouth after use. meloxicam (MOBIC) 15 mg tablet Take 1 tablet by mouth once daily. SUMAtriptan (IMITREX) 50 mg tablet Take 1 tablet by mouth as needed for migraine headache (see administration instructions) (at onset of headache. May repeat after 2 hours.). May repeat dose after 2 hours if needed. Maximum daily dose is 200 mg per day. amitriptyline 150 mg tablet Take 1 tablet by mouth daily at bedtime. SODIUM CITRATE ORAL Take by mouth. promethazine (PHENERGAN) 25 mg tablet Take 1 tablet by mouth every 8 hours as needed (for nausea). ergocalciferol 50,000 unit capsule (VITAMIN D2, DRISDOL) Take 1 tablet by mouth twice weekly m7lyuls, then decrease to 1 tablet weekly. tiZANidine (ZANAFLEX) 4 mg tablet Take 1 tablet by mouth every 8 hours as needed. atorvastatin (LIPITOR) 20 mg tablet Take 1 tablet by mouth once daily. EPINEPHrine (EPIPEN) 0.3 mg/0.3 mL auto-injector Inject intramuscularly. multivit with minerals/lutein (MULTIVITAMIN 50 PLUS ORAL) Take by mouth. diclofenac (VOLTAREN) 1 % topical gel Apply 2 g to affected area twice daily. FASENRA PEN 30 mg/mL auto-injector Dexlansoprazole (DEXILANT) 60 mg CpDM Take 60 mg by mouth once daily. magnesium hydroxide (MILK OF MAGNESIA) 400 mg/5 mL suspension Take 15 mL by mouth once daily as needed for constipation. bisacodyl (DULCOLAX, BISACODYL,) 10 mg supp 1 Suppository by RECTAL route once daily as needed for constipation. famotidine (PEPCID) 40 mg tablet Take 1 tablet by mouth once daily as needed. MUCUS RELIEF ER 600 mg 12 hr tablet Take 1,200 mg by mouth twice daily. montelukast (SINGULAIR) 10 mg tablet Take 1 tablet by mouth daily at bedtime. lcpljsrwgps-wzxzeozfc-yghnhhxo (TRELEGY ELLIPTA) 200-62.5-25 mcg inhalation powder Inhale as instructed. albuterol HFA (VENTOLIN HFA) 90 mcg/actuation inhaler Inhale 2 Puffs as instructed every 4 hours as needed for wheezing/shortness of breath. L. acidophilus-L. rhamnosus 15 billion cell cap Take 1 capsule by mouth once daily. FLORAJEN WOMEN. If on antibiotic, take at least 1-2 hours before or after antibiotic. KEEP REFRIGERATED albuterol (PROVENTIL) 2.5 mg /3 mL (0.083 %) nebulizer solution Use 3 mL via nebulizer every (more content not included)...[facility] 11-06-2024 History of Present illness Narrative* Melanie Shook MD - 11/06/2024 3:35 PM EDT HISTORY AND PHYSICAL Jane Steinberg 1970 REFERRING PHYSICIAN: Deep Ramires APRN.CNP CHIEF COMPLAINT: Consult (Bilat axillary swelling. R>L has gotten worse and more painful over the past few months) HPI:Yohannes is a 53-year-old female presenting with bilateral axillary masses. Yohannes reports bilateral axillary masses, with the right side being more prominent. An ultrasound was performed approximately one year ago, which reportedly showed no abnormalities. However, Yohannes notes that the masses have become painful over the past few months. She initially thought she might be imagining the masses, but her OB-MICRO PHOTOGRAPHER, Deep, confirmed the presence of a mass on the right side during arecent examination. The patient is being seen by me today at the request of Deep Ramires APRN.KACY my opinion and advice regarding palpable axillary mass. PAST MEDICAL HISTORY Diagnosis Date Anorexia nervosa (HCC) 06/11/2006 Stable; treated in past Anxiety Asthma (HCC) 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 02/13/2020 Bulimia nervosa 06/11/2006 Stable, treated in past Cancer (HCC) Chest pain Cholelithiasis 07/24/2023 Chronic obstructive pulmonary disease (COPD) (HCC) Emphysema lung (HCC) GERD (gastroesophageal reflux disease) H. pylori infection cronic Hiatal hernia 02/13/2020 small HISTORY OF CANCER OF UTERUS 06/11/2006 2004, Hysterectomy - complete History of COVID-19 07/10/2023 Internal hemorrhoids Lung disease Migraines Osteopenia Overweight (BMI 25.0-29.9) 07/10/2023 Snoring Tobacco use disorder 06/11/2006 Quit 09/2015. Unspecified asthma(493.90) Childhood diagnosis. VAIN (vaginal intraepithelial neoplasia) 2013 Had seen MICRO PHOTOGRAPHER ONC for abnormal pap and colp biospy of vaginal vault VAIN 2013. PAST SURGICAL HISTORY Procedure Laterality Date APPENDECTOMY 1998 COLONOSCOPY 01/12/2023 no specimens, next colonoscopy 2029 EGD WITH BIOPSY(S) 03/13/2017 Dr. Shook EGD WITH BIOPSY(S) 02/13/2020 small hiatal hernia; Duggan's without dysplasia; Dr. Montoya EGD WITH BIOPSY(S) 10/06/2021 H. pylori +; Duggan's without dysplasia; Dr. Riggs EGD WITH BIOPSY(S) 09/12/2022 neg for H. pylori; Dr. Riggs LAPS SURG CHOLECYSTECTOMY W/CHOLANGIOGRAPHY 07/24/2023 PAST SURGICAL HISTORY OF 2004 Lymph Node Bx 1999 TOTAL ABDOMINAL HYSTERECT W/WO RMVL TUBE OVARY 2004 and BSO - pelvic pain/benign Current Outpatient Medications Medication Sig predniSONE (DELTASONE) 20 mg tablet Take 2 tablets by mouth once daily. fluticasone (FLONASE) 50 mcg/actuation nasal spray Use 2 sprays in each nostril once daily. Rinse mouth after use. meloxicam (MOBIC) 15 mg tablet Take 1 tablet by mouth once daily. SUMAtriptan (IMITREX) 50 mg tablet Take 1 tablet by mouth as needed for migraine headache (see administration instructions) (at onset of headache. May repeat after 2 hours.). May repeat dose after 2 hours if needed. Maximum daily dose is 200 mg per day. amitriptyline 150 mg tablet Take 1 tablet by mouth daily at bedtime. SODIUM CITRATE ORAL Take by mouth. promethazine (PHENERGAN) 25 mg tablet Take 1 tablet by mouth every 8 hours as needed (for nausea). ergocalciferol 50,000 unit capsule (VITAMIN D2, DRISDOL) Take 1 tablet by mouth twice weekly [id number], then decrease to 1 tablet weekly. tiZANidine (ZANAFLEX) 4 mg tablet Take 1 tablet by mouth every 8 hours as needed. atorvastatin (LIPITOR) 20 mg tablet Take 1 tablet by mouth once daily. EPINEPHrine (EPIPEN) 0.3 mg/0.3 mL auto-injector Inject intramuscularly. multivit with minerals/lutein (MULTIVITAMIN 50 PLUS ORAL) Take by mouth. diclofenac (VOLTAREN) 1 % topical gel Apply 2 g to affected area twice daily. FASENRA PEN 30 mg/mL auto-injector Dexlansoprazole (DEXILANT) 60 mg CpDM Take 60 mg by mouth once daily. magnesium hydroxide (MILK OF MAGNESIA) 400 mg/5 mL suspension Take 15 mL by mouth once daily as needed for constipation. bisacodyl (DULCOLAX, BISACODYL,) 10 mg supp 1 Suppository by RECTAL route once daily as needed for constipation. famotidine (PEPCID) 40 mg tablet Take 1 tablet by mouth once daily as needed. MUCUS RELIEF ER 600 mg 12 hr tablet Take 1,200 mg by mouth twice daily. montelukast (SINGULAIR) 10 mg tablet Take 1 tablet by mouth daily at bedtime. icxdmzwjrkx-acfguolqu-mfwdpqio (TRELEGY ELLIPTA) 200-62.5-25 mcg inhalation powder Inhale as instructed. albuterol HFA (VENTOLIN HFA) 90 mcg/actuation inhaler Inhale 2 Puffs as instructed every 4 hours asneeded for wheezing/shortness of breath. L. acidophilus-L. rhamnosus 15 billion cell cap Take 1 capsule by mouth once daily. FLORAJEN WOMEN.If on antibiotic, take at least 1-2 hours before or after antibiotic. KEEP REFRIGERATED albuterol (PROVENTIL) 2.5 mg /3 mL (0.083 %) nebulizer solution Use 3 mL via nebulizer every 6 hours as needed. COMPACT SPACE CHAMBER as directed. ipratropium-albuterol (DUONEB) 0.5 mg-3 mg(2.5 mg base)/3 mL nebu Inhale 3 mL as instructed every 4hours as needed. PULSE OXIMETER CONTEC 1 Each as needed. Comp Stocking,Knee,Regular,Med misc 2 Each once daily. loratadine (CLARITIN) 10 mg tablet Take 1 tablet by mouth once daily. IBSRELA 50 mg tablet TAKE 1 TABLET BY MOUTH TWICE A DAY 10 MINUTES BEFORE EATING No current facility-administered medications for this visit. ALLERGIES: Penicillins PERSONAL HISTORY: Social History Tobacco Use Smoking status: Every Day Current packs/day: 0.00 Average packs/day: 0.3 packs/day for 35.0 years (8.8 ttl pk-yrs) Types: Cigarettes Start date: 11/17/1986 Last attempt to quit: 11/23/2021 Years since quittin.9 Smokeless tobacco: Never Vaping Use Vaping status: Never Used Substance Use Topics Alcohol use: Not Currently Comment: Rarely Drug use: No FAMILY HISTORY: FAMILY HISTORY Problem Relation Age of Onset Hypertension Mother Heart Mother Eczema Mother other (AAA) Mother other (Fibromyalgia) Mother Alcohol/Drug Father Alcohol Cancer Father lung Colon Cancer Father Hypertension Sister Asthma Sister other (Migraines) Sister other (Gout) Sister other (Fibromyalgia) Sister Cancer Sister 32 Ovarian cancer Sister 32 Breast Cancer Maternal Aunt 2 maternal aunts. Stomach Cancer Maternal Aunt 70 - 79 other (MICRO PHOTOGRAPHER cancer) No Family History Anesthesia Problems No Family History Blood Clots No Family History REVIEW OF SYMPTOMS: The review of systems data was entered by the nurse and reviewed by me There are no exam notes on file for this visit. PHYSICAL EXAMINATION: General: The patient is 53 year old female, well nourished, well hydrated in no acute distress. Thepatient is oriented to time, place, and person. VITALS: Blood pressure 123/81, pulse 78, resp. rate 14, weight 55.2 kg (121 lb 12.8 oz), SpO2 95%. HEENT: Normal cephalic, ataumatic, pupils are equally round, sclera are anicteric, mucous membranesare moist, oropharynx is clear. Neck has no masses, asymmetry or lymphadenopathy. Thyroid is unremarkable. Respiratory: Clear to auscultation and percussion. Normal respiratory excursion and pattern. Cardiac: Examination is regular rate and rhythm. Abdominal exam: Soft, nontender, with no palpable masses. No hepatosplenomegaly. No palpable hernias. Rectal exam: exam deferred Extremities: no clubbing, cyanosis or edema. No adenopathy. Other: Palpable masses in both axillae; right axillary lymph node palpated, described as enlarged and resembling a walnut. LABORATORY VALUES: As Noted RADIOLOGIC STUDIES: As Noted Imaging: (Today) Right Axilla Ultrasound: - Enlarged lymph node with normal external contour and suspicious internal architecture Mammogram: - No suspicious findings in the breast (October) Ultrasound (Axilla): - No abnormalities Bone Density: - No results discussed Ultrasound (Gallbladder and Liver): - No results discussed Assessment 1. Right axillary swelling (M79.89) Palpable mass in the right axilla with recent onset of tenderness. Previous ultrasound approximately a year ago showed no abnormalities. Recent mammogram on the showed no abnormalities. On examination, a lymph node in the right axilla appears enlarged and atypical. - Ordered a repeat ultrasound of the right axilla to obtain a more current assessment. - Ordered a CT scan of the chest to evaluate for any additional lymphadenopathy. - Scheduled follow-up appointment a few days after both imaging studies are completed to review results. - Plan to perform a core needle biopsy of the suspicious lymph node under ultrasound guidance during the follow-up visit. Will use local anesthetic (lidocaine) to minimize discomfort during the procedure. - Discussed the importance of obtaining a biopsy before considering surgical removal to ensure appropriate treatment based on the underlying pathology. Diagnoses: (M79.89) Right axillary swelling My findings have been communicated to Keyla via shared medical record. This note will be forwarded to Amanda Wallace MD. Return to Clinic: The patient is instructed to follow-up with me after the testing has been completed. Melanie Shook MD * Felicita Huffman RN - 11/06/2024 3:16 PM EDT REVIEW OF SYSTEMS: General: The patient denies fatigue, denies weight loss, denies weight gain, denies feeling hot, and denies feelings of cold. Eyes: The patient denies glaucoma, denies eye injury/surgery, does not wear glasses or contacts. Ear/Nose/Throat: The patient notes allergies, denies hayfever, denies ear infections, and denies bloody noses. Cardiovascular: The patient denies chest pain, denies heart disease, denies high blood pressure,denies cardiac stent, denies prior heart attack, denies irregular heart beat, denies high cholesterol, denies poor circulation, denies heart failure, other cardiac issues, denies claudication, denies cold feet, denies peripheral arterial stent. Respiratory: The patient denies tuberculosis, denies pneumonia, notes frequent cough, denies pulmonary embolism, notes shortness of breath, and denies coughing up blood. Gastrointestinal: The patient denies difficulty swallowing, notes acid reflux, denies ulcers, denies vomiting, denies jaundice/hepatitis, denies gallbladder problems, denies black or tarry stools, denies hemorrhoids, denies bleeding from rectum, denies diverticulitis, denies constipation, denies diarrhea, denies loss of stool control, and denies hernias. Kidney/Bladder: The patient denies kidney stones, denies urine infections, and denies bloody urine. Skin: The patient denies a history of skin cancer, denies bleeding/changing moles, and denies a history of skin rash. Neurologic: The patient denies a history of epilepsy/convulsions, denies headaches, denies head/spinal injuries, and denies stroke/TIA. Psychiatric: The patient denies psychiatric medications, denies depression, and denies voices, denies substance abuse. Endocrine: The patient denies thyroid disorders, denies diabetes, and denies hormonal problems. Hematologic: The patient denies a history of bruising, denies bleeding, and denies anemia, denies blood clots. Infections: The patient denies a history of measles and mumps, denies rheumatic fever, and denies sexually transmitted diseases. Musculoskeletal: The patient denies back pain/injury, denies back problems, denies sciatica, deniesknee/foot trouble, denies arthritis, or denies gout. When was patient's last Mammogram screening? 11/01/24 Last Colonoscopy: 2022 Felicita Huffman RN documented in this [facility] Instructions* Patient Instructions* Melanie Shook MD - 11/06/2024 3:35 PM EDT We discussed the lumps in your armpits: - I will order a new ultrasound of your right armpit to evaluate the lymph node that appears abnormal. This will help us determine the next steps. - I have also ordered a CT scan of your chest to check for any other abnormal lymph nodes. This hasbeen marked as a priority (stat) to expedite results. - Once the ultrasound and CT scan are completed, please schedule a follow-up appointment with me a couple of days after both tests are done. At that visit, I will review the results and perform a biopsy of the lymph node if necessary. - If a biopsy is needed, I will numb the area with lidocaine, which may burn for 10-15 seconds. After that, the area should be numb, and I will use a needle to take a small tissue sample from the lymph node. This procedure is typically painless, but there may be minor discomfort if a small nerve isnearby. We discussed the importance of determining the cause of the abnormal lymph node: - Removing the lymph node is not the first step. It is important to biopsy the node to understand what is causing the abnormality. This will guide the appropriate treatment plan. - Based on the imaging and biopsy results, we will determine whether further treatment is needed. Next steps: - Complete the ultrasound and CT scan as soon as possible. - Schedule a follow-up appointment with me a few days after the tests are completed to review the results and discuss the plan moving forward. Please let me know if you have any questions or concerns before your next visit. documented [facility] NoteHNO ID: [id number] Author: FELICITA HUFFMAN RN Service: ? Author Type: Registered Nurse Type: Progress Notes Filed: 11/08/2024 07:37 Note Text: REVIEW OF SYSTEMS: General: The patient denies fatigue, denies weight loss, denies weight gain, denies feeling hot, and denies feelings of cold. Eyes: The patient denies glaucoma, denies eye injury/surgery, does not wear glasses or contacts. Ear/Nose/Throat: The patient notes allergies, denies hayfever, denies ear infections, and denies bloody noses. Cardiovascular: The patient denies chest pain, denies heart disease, denies high blood pressure,denies cardiac stent, denies prior heart attack, denies irregular heart beat, denies high cholesterol, denies poor circulation, denies heart failure, other cardiac issues, denies claudication, denies cold feet, denies peripheral arterial stent. Respiratory: The patient denies tuberculosis, denies pneumonia, notes frequent cough, denies pulmonary embolism, notes shortness of breath, and denies coughing up blood. Gastrointestinal: The patient denies difficulty swallowing, notes acid reflux, denies ulcers, denies vomiting, denies jaundice/hepatitis, denies gallbladder problems, denies black or tarry stools, denies hemorrhoids, denies bleeding from rectum, denies diverticulitis, denies constipation, denies diarrhea, denies loss of stool control, and denies hernias. Kidney/Bladder: The patient denies kidney stones, denies urine infections, and denies bloody urine. Skin: The patient denies a history of skin cancer, denies bleeding/changing moles, and denies a history of skin rash. Neurologic: The patient denies a history of epilepsy/convulsions, denies headaches, denies head/spinal injuries, and denies stroke/TIA. Psychiatric: The patient denies psychiatric medications, denies depression, and denies voices, denies substance abuse. Endocrine: The patient denies thyroid disorders, denies diabetes, and denies hormonal problems. Hematologic: The patient denies a history of bruising, denies bleeding, and denies anemia, denies blood clots. Infections: The patient denies a history of measles and mumps, denies rheumatic fever, and denies sexually transmitted diseases. Musculoskeletal: The patient denies back pain/injury, denies back problems, denies sciatica, denies knee/foot trouble, denies arthritis, or denies gout. When was patient's last Mammogram screening? 11/01/24 Last Colonoscopy: 2022 [facility] NoteHNO ID: [id number] Author: LAURA HERNANDEZ APRN.DUMPER Service: ? Author Type: Nurse Practitioner Type: Progress Notes Filed: 11/06/2024 07:41 Note Text: CC: Patient presents with: Recheck: 1 week follow up HPI Jane Steinberg is a 53 year old female who presents today for follow up on copd exacerbation. Recording using [employer] software for draft documentation of the visit was discussed with the patient/authorized client care representative; all questions welcomed and answered. Patient/authorized client care representative agreed to proceed COPD: - seen last week for exacerbation and treated with a burst of steroids and a Z-Neema; both completed. - Significant improvement in symptoms since last week, including dyspnea, wheezing, and a tight cough. - Using albuterol inhaler every 4-6 hours, consistent with baseline usage. - Reports nocturnal wheezing, present before the exacerbation. - Denies fever, chills, chest pain, sinus pressure, or otalgia. - Keeping windows shut to avoid allergens. - Follow-up with rug sample beveler scheduled for this month. - Currently on Trelegy and taking medications as ordered. REVIEW OF SYSTEMS See HPI PAST MEDICAL HISTORY Diagnosis Date Anorexia nervosa (HCC) 06/11/2006 Stable; treated in past Anxiety Asthma (HCC) 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 02/13/2020 Bulimia nervosa 06/11/2006 Stable, treated in past Cancer (HCC) Chest pain Cholelithiasis 07/24/2023 Chronic obstructive pulmonary disease (COPD) (HCC) Emphysema lung (HCC) GERD (gastroesophageal reflux disease) H. pylori infection cronic Hiatal hernia 02/13/2020 small HISTORY OF CANCER OF UTERUS 06/11/2006 2004, Hysterectomy - complete History of COVID-19 07/10/2023 Internal hemorrhoids Lung disease Migraines Osteopenia Overweight (BMI 25.0-29.9) 07/10/2023 Snoring Tobacco use disorder 06/11/2006 Quit 09/2015. Unspecified asthma(493.90) Childhood diagnosis. VAIN (vaginal intraepithelial neoplasia) 2013 Had seen MICRO PHOTOGRAPHER ONC for abnormal pap and colp biospy of vaginal vault VAIN 2013. PAST SURGICAL HISTORY Procedure Laterality Date APPENDECTOMY 1998 COLONOSCOPY 01/12/2023 no specimens, next colonoscopy 2029 EGD WITH BIOPSY(S) 03/13/2017 Dr. Shook EGD WITH BIOPSY(S) 02/13/2020 small hiatal hernia; Duggan's without dysplasia; Dr. Montoya EGD WITH BIOPSY(S) 10/06/2021 H. pylori +; Duggan's without dysplasia; Dr. Riggs EGD WITH BIOPSY(S) 09/12/2022 neg for H. pylori; Dr. Riggs LAP[facility] SURG CHOLECYSTECTOMY W/CHOLANGIOGRAPHY 07/24/2023 PAST SURGICAL HISTORY OF 2004 Lymph Node Bx 1999 TOTAL ABDOMINAL HYSTERECT W/WO RMVL TUBE OVARY 2004 and BSO - pelvic pain/benign ALLERGIES Penicillins MEDICATIONS predniSONE (DELTASONE) 20 mg tablet Take 2 tablets by mouth once daily. fluticasone (FLONASE) 50 mcg/actuation nasal spray Use 2 sprays in each nostril once daily. Rinse mouth after use. meloxicam (MOBIC) 15 mg tablet Take 1 tablet by mouth once daily. SUMAtriptan (IMITREX) 50 mg tablet Take 1 tablet by mouth as needed for migraine headache (see administration instructions) (at onset of headache. May repeat after 2 hours.). May repeat dose after 2 hours if needed. Maximum daily dose is 200 mg per day. amitriptyline 150 mg tablet Take 1 tablet by mouth daily at bedtime. SODIUM CITRATE ORAL Take by mouth. promethazine (PHENERGAN) 25 mg tablet Take 1 tablet by mouth every 8 hours as needed (for nausea). ergocalciferol 50,000 unit capsule (VITAMIN D2, DRISDOL) Take 1 tablet by mouth twice weekly [id number], then decrease to 1 tablet weekly. tiZANidine (ZANAFLEX) 4 mg tablet Take 1 tablet by mouth every 8 hours as needed. atorvastatin (LIPITOR) 20 mg tablet Take 1 tablet by mouth once daily. EPINEPHrine (EPIPEN) 0.3 mg/0.3 mL auto-injector Inject intramuscularly. multivit with minerals/lutein (MULTIVITAMIN 50 PLUS ORAL) Take by mouth. IBSRELA 50 mg tablet TAKE 1 TABLET BY MOUTH TWICE A DAY 10 MINUTES BEFORE EATING diclofenac (VOLTAREN) 1 % topical gel Apply 2 g to affected area twice daily. FASENRA PEN 30 mg/mL auto-injector Dexlansoprazole (DEXILANT) 60 mg CpDM Take 60 mg by mouth once daily. magnesium hydroxide (MILK OF MAGNESIA) 400 mg/5 mL suspension Take 15 mL by mouth once daily as needed for constipation. bisacodyl (DULCOLAX, BISACODYL,) 10 mg supp 1 Suppository by RECTAL route once daily as needed for constipation. famotidine (PEPCID) 40 mg tablet Take 1 tablet by mouth once daily as needed. MUCUS RELIEF ER 600 mg 12 hr tablet Take 1,200 mg by mouth twice daily. montelukast (SINGULAIR) 10 mg tablet Take 1 tablet by mouth daily at bedtime. skohaatxkdu-rvajwdmtp-kdbfczra (TRELEGY ELLIPTA) 200-62.5-25 mcg inhalation powder Inhale as instructed. albuterol HFA (VENTOLIN HFA) 90 mcg/actuation inhaler Inhale 2 Puffs as instructed every 4 hours as needed for wheezing/shortness of breath. L. acidophilus-L. rhamnosus 15 billion cell cap Take 1 capsul (more content not included)...[facility]05-01[facility] History of Present illness Narrative* Laura Hernandez APRN.DUMPER - 11/06/2024 7:37 AM EDT CC: Patient presents with: Recheck: 1 week follow up HPI Jane Steinberg is a 53 year old female who presents today for follow up on copd exacerbation. Recording using [employer] software for draft documentation of the visit was discussed with the patient/authorized client care representative; all questions welcomed and answered. Patient/authorized client care representative agreed to proceed COPD: - seen last week for exacerbation and treated with a burst of steroids and a Z- Neema; both completed. - Significant improvement in symptoms since last week, including dyspnea, wheezing, and a tight cough. - Using albuterol inhaler every 4-6 hours, consistent with baseline usage. - Reports nocturnal wheezing, present before the exacerbation. - Denies fever, chills, chest pain, sinus pressure, or otalgia. - Keeping windows shut to avoid allergens. - Follow-up with rug sample beveler scheduled for this month. - Currently on Trelegy and taking medications as ordered. REVIEW OF SYSTEMS See HPI PAST MEDICAL HISTORY Diagnosis Date Anorexia nervosa (HCC) 06/11/2006 Stable; treated in past Anxiety Asthma ([facility]) 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 02/13/2020 Bulimia nervosa 06/11/2006 Stable, treated in past Cancer (HCC) Chest pain Cholelithiasis 07/24/2023 Chronic obstructive pulmonary disease (COPD) (HCC) Emphysema lung (HCC) GERD (gastroesophageal reflux disease) H. pylori infection cronic Hiatal hernia 02/13/2020 small HISTORY OF CANCER OF UTERUS 06/11/2006 2004, Hysterectomy - complete History of COVID-19 07/10/2023 Internal hemorrhoids Lung disease Migraines Osteopenia Overweight (BMI 25.0-29.9) 07/10/2023 Snoring Tobacco use disorder 06/11/2006 Quit 09/2015. Unspecified asthma(493.90) Childhood diagnosis. VAIN (vaginal intraepithelial neoplasia) 2013 Had seen MICRO PHOTOGRAPHER ONC for abnormal pap and colp biospy of vaginal vault VAIN 2013. PAST SURGICAL HISTORY Procedure Laterality Date APPENDECTOMY 1998 COLONOSCOPY 01/12/2023 no specimens, next colonoscopy 2029 EGD WITH BIOPSY(S) 03/13/2017 Dr. Shook EGD WITH BIOPSY(S) 02/13/2020 small hiatal hernia; Duggan's without dysplasia; Dr. Montoya EGD WITH BIOPSY(S) 10/06/2021 H. pylori +; Duggan's without dysplasia; Dr. Riggs EGD WITH BIOPSY(S) 09/12/2022 neg for H. pylori; Dr. Keely ROSARIO SURG CHOLECYSTECTOMY W/CHOLANGIOGRAPHY 07/24/2023 PAST SURGICAL HISTORY OF 2004 Lymph Node Bx 1999 TOTAL ABDOMINAL HYSTERECT W/WO RMVL TUBE OVARY 2004 and BSO - pelvic pain/benign ALLERGIES Penicillins MEDICATIONS predniSONE (DELTASONE) 20 mg tablet Take 2 tablets by mouth once daily. fluticasone (FLONASE) 50 mcg/actuation nasal spray Use 2 sprays in each nostril once daily. Rinse mouth after use. meloxicam (MOBIC) 15 mg tablet Take 1 tablet by mouth once daily. SUMAtriptan (IMITREX) 50 mg tablet Take 1 tablet by mouth as needed for migraine headache (see administration instructions) (at onset of headache. May repeat after 2 hours.). May repeat dose after 2 hours if needed. Maximum daily dose is 200 mg per day. amitriptyline 150 mg tablet Take 1 tablet by mouth daily at bedtime. SODIUM CITRATE ORAL Take by mouth. promethazine (PHENERGAN) 25 mg tablet Take 1 tablet by mouth every 8 hours as needed (for nausea). ergocalciferol 50,000 unit capsule (VITAMIN D2, DRISDOL) Take 1 tablet by mouth twice weekly [id number], then decrease to 1 tablet weekly. tiZANidine (ZANAFLEX) 4 mg tablet Take 1 tablet by mouth every 8 hours as needed. atorvastatin (LIPITOR) 20 mg tablet Take 1 tablet by mouth once daily. EPINEPHrine (EPIPEN) 0.3 mg/0.3 mL auto-injector Inject intramuscularly. multivit with minerals/lutein (MULTIVITAMIN 50 PLUS ORAL) Take by mouth. IBSRELA 50 mg tablet TAKE 1 TABLET BY MOUTH TWICE A DAY 10 MINUTES BEFORE EATING diclofenac (VOLTAREN) 1 % topical gel Apply 2 g to affected area twice daily. FASENRA PEN 30 mg/mL auto-injector Dexlansoprazole (DEXILANT) 60 mg CpDM Take 60 mg by mouth once daily. magnesium hydroxide (MILK OF MAGNESIA) 400 mg/5 mL suspension Take 15 mL by mouth once daily as needed for constipation. bisacodyl (DULCOLAX, BISACODYL,) 10 mg supp 1 Suppository by RECTAL route once daily as needed for constipation. famotidine (PEPCID) 40 mg tablet Take 1 tablet by mouth once daily as needed. MUCUS RELIEF ER 600 mg 12 hr tablet Take 1,200 mg by mouth twice daily. montelukast (SINGULAIR) 10 mg tablet Take 1 tablet by mouth daily at bedtime. gsxmpbvwzbt-gkwryxumz-qsggqcdj (TRELEGY ELLIPTA) 200-62.5-25 mcg inhalation powder Inhale as instructed. albuterol HFA (VENTOLIN HFA) 90 mcg/actuation inhaler Inhale 2 Puffs as instructed every 4 hours asneeded for wheezing/shortness of breath. L. acidophilus-L. rhamnosus 15 billion cell cap Take 1 capsule by mouth once daily. FLORAJEN WOMEN.If on antibiotic, take at least 1-2 hours before or after antibiotic. KEEP REFRIGERATED albuterol (PROVENTIL) 2.5 mg /3 mL (0.083 %) nebulizer solution Use 3 mL via nebulizer every 6 hours as needed. COMPACT SPACE CHAMBER as directed. ipratropium-albuterol (DUONEB) 0.5 mg-3 mg(2.5 mg base)/3 mL nebu Inhale 3 mL as instructed every 4hours as needed. PULSE OXIMETER CONTEC 1 Each as needed. Comp Stocking,Knee,Regular,Med misc 2 Each once daily. loratadine (CLARITIN) 10 mg tablet Take 1 tablet by mouth once daily. FAMILY HISTORY Problem Relation Age of Onset Hypertension Mother Heart Mother Eczema Mother other (AAA) Mother other (Fibromyalgia) Mother Alcohol/Drug Father Alcohol Cancer Father lung Colon Cancer Father Hypertension Sister Asthma Sister other (Migraines) Sister other (Gout) Sister other (Fibromyalgia) Sister Cancer Sister 32 Ovarian cancer Sister 32 Breast Cancer Maternal Aunt 2 maternal aunts. Stomach Cancer Maternal Aunt 70 - 79 other (MICRO PHOTOGRAPHER cancer) No Family History Anesthesia Problems No Family History Blood Clots No Family History Social History Tobacco Use Smoking status: Every Day Current packs/day: 0.00 Average packs/day: 0.3 packs/day for 35.0 years (8.8 ttl pk-yrs) Types: Cigarettes Start date: 11/17/1986 Last attempt to quit: 11/23/2021 Years since quittin.9 Smokeless tobacco: Never Vaping Use Vaping status: Never Used Substance Use Topics Alcohol use: Not Currently Comment: Rarely Drug use: No PHYSICAL EXAM BP 128/84 Pulse 84 Resp 16 Wt 54.9 kg (121 lb) SpO2 96% BMI 21.99 kg/m General Appearance: well appearing, in no acute distress, alert Eyes: conjunctiva pink and moist, no icterus, sclera white, non-injected Lungs: Lungs with scattered inspiratory and expiratory wheezes throughout. No rhonchi or rales. Heart: RRR without murmur, gallop, or rubs. No ectopy Health maintenance reviewed with patient: Anxiety Screening Never done Hepatitis B Vaccine(1 of 3 - 19+ 3-dose series) Never done DTaP,Tdap,Td Vaccine(6 - Tdap) due on 07/31/2006 Shingrix Vaccine(1 of 2) Never done Covid-19 Vaccine( - 2023- season) due on 03/09/2024 Pneumococcal Vaccine: 50+(2 of 2 - PCV) due on 05/15/2025 Mammogram Screening due on 10/31/2025 Annual PCP Team Chronic Disease Visit due on 10/31/2025 Diabetes Screening due on 05/23/2027 Lipid Screening due on 05/23/2029 Colorectal Cancer Screening due on 01/12/2033 Influenza Vaccine Completed Hepatitis C Screening Completed HIV Screening Completed Cervical Cancer Screening Discontinued DATA REVIEWED: No new labs Assessment/Plan 1. Chronic obstructive pulmonary disease, unspecified COPD type (HCC) (J44.9) - Recent exacerbation treated with a course of prednisone and azithromycin; symptoms have significantly improved. - Currently using albuterol every 4 to 6 hours, which is baseline usage. - Mild wheezing noted on auscultation, consistent with baseline findings; no signs of respiratory distress. - Continues on Trelegy as prescribed by rug sample beveler. - Follow-up with rug sample beveler scheduled for this month. - Advised to seek medical attention if symptoms worsen or if there is a recurrence of exacerbation. 2. Medication management (Z79.899) - bmp and cbc ordered. - Completed recent courses of prednisone and azithromycin for COPD exacerbation. - Continues on Trelegy and albuterol as per rug sample beveler's management plan. - No changes to current medication regimen at this time. Prescription instructions reviewed with patient as applicable. Potential red flag symptoms discussed with the patient. Reviewed appropriate action plan to take if red flag symptoms occur. Patient agreeable to treatment plan. Laura Hernandez APRN.KACY documented in this encounterCos[facility]05-[facility]25 Instructions* Patient Instructions* Laura Hernandez APRN.CNP - 11/06/2024 7:34 AM EDT Continue using your albuterol inhaler as needed (approximately every 4-6 hours) since that is your baseline for managing breathlessness. Continue using Trelegy as prescribed for your COPD maintenance. Keep your windows shut to avoid triggers. If you notice a return of increased shortness of breath, wheezing, or a change in your cough, please contact your rug sample beveler or our office. Attend your scheduled rug sample beveler appointment later this month. Follow up with the specialist evaluating the recurring arm lumps as recommended. documented in this encounterCos[facility]04-25-2025 NoteHNO ID: [id number] Author: GOLDIE WAGNER Mammo Tech Service: ? Author Type: Food Safety Manager Type: Progress Notes Filed: 10/31/2024 15:00 Note Text: Radiology Service Progress Note PATIENT NAME: Jane Steinberg DATE OF SERVICE: October 31, 2024 TIME: 3:00 PM PATIENT IDENTITY VERIFICATION COMPLETED USING TWO (2) IDENTIFIERS: Name and Date of confirmed by patient verbally. FALL SCREENING: Has the patient had 2 falls in the last year or 1 fall with injury or currently using an Ambulatory Assistive Device (Walker, Cane, Wheelchair, Crutches, etc.)? No PATIENT GENDER DATA: Assigned female at . status: : No status: NO. PATIENT RELEVANT IMPLANT DATA REVIEWED: Not Applicable PATIENT PRESENTS WITH AN IMPLANTABLE OR ATTACHED SHAREMILKER: No RADIOLOGY DEPARTMENT: Mammography PERIPHERAL IV DATA: Not applicable SIGNED BY: Asa Centeno October 31, 2024 3:00 [facility]04-25-2025 NoteHNO ID: [id number] Author: DEEP RAMIRES APRN.CNP Service: ? Author Type: Nurse Practitioner Type: Progress Notes Filed: 10/31/2024 13:56 Note Text: Fur Farmer offered: Patient declines. Yohannes is a 53 year old who presents for an annual gynecologic exam with complaints, vaginal dryness. Postmenopausal: Yes HRT use: No. Still get period: No LMP: unknown Menopause symptoms: Vaginal dryness Time with current partner: 14 years Number of lifetime partners: 4 control frequency: Never Contraception: hysterectomy, benign HPV vaccine: Unsure; Last pap smear: 10/28/2023 History of abnormal pap: Yes, history of abnormal PAP smears. History of VAIN 2013. Has had normal paps 2023, 2020, 2019 Bothersome pelvic pain: No Last mammogram: 10/2024 pending History of abnormal mammogram: Yes , follow up benign OB History Gravida3 Para2 Term2 Preterm0 AB1 Living2 SAB1 IAB0 Ectopic0 Multiple0 Live Births0 Comment: 2 vaginal deliveries FAMILY HISTORY Problem Relation Age of Onset Hypertension Mother Heart Mother Eczema Mother other (AAA) Mother other (Fibromyalgia) Mother Alcohol/Drug Father Alcohol Cancer Father lung Colon Cancer Father Hypertension Sister Asthma Sister other (Migraines) Sister other (Gout) Sister other (Fibromyalgia) Sister Cancer Sister 32 Ovarian cancer Sister 32 Breast Cancer Maternal Aunt 2 maternal aunts. Stomach Cancer Maternal Aunt 70 - 79 other (MICRO PHOTOGRAPHER cancer) No Family History Anesthesia Problems No Family History Blood Clots No Family History SOCIAL HISTORY Social History Tobacco Use Smoking status: Every Day Current packs/day: 0.00 Average packs/day: 0.3 packs/day for 35.0 years (8.8 ttl pk-yrs) Types: Cigarettes Start date: 11/17/1986 Last attempt to quit: 11/23/2021 Years since quittin.9 Smokeless tobacco: Never Vaping Use Vaping status: Never Used Substance Use Topics Alcohol use: Not Currently Comment: Rarely Drug use: No REVIEW OF SYSTEMS Abdomen: No abdominal pain, nausea, vomiting, diarrhea, or constipation. No bloating, early satiety, indigestion, or increased flatulence. Bladder: No dysuria, gross hematuria, urinary frequency, urinary urgency, or incontinence Breast: No breast lumps, nipple d/c, overlying skin changes, redness or skin retraction Allergies and current medication updated:Yes SENSITIVE EXAM: The sensitive examination was discussed with the Patient or Patient's Authorized Eap Counselor. As applicable, any other physician, advance practice provider, medical student, or other health professional student that will be observing or involved in the sensitive examination for educational or training purposes was discussed with the Patient or Authorized Eap Counselor. The Patient or Authorized Eap Counselor has agreed to proceed with the sensitive examination. (Sensitive examination includes inspection and/or palpation of the breasts, pelvis, prostate and anorectal regions). EXAM: BP 120/70 Ht 5' 2.205 (1.58m) Wt 121 lb (54.9kg) BMI 21.99 kg/(m2). GENERAL: pleasant, female in no apparent distress HEENT: Normocephalic, atraumatic, mucus membranes moist, and no lesions NECK: Supple, full range of motion, no adenopathy, and thyroid normal DERMATOLOGY: Normal, without lesions, non-icteric, and non-hirsute BREAST: soft, non-tender, symmetric, no dominant mass, normal nipple-areolar complex, and no nipple discharge + swelling noted to right axilla CHEST: Normal inspiratory effort ABDOMEN: soft, non-tender, and no masses PELVIC: external genitalia normal, normal Bartholin's glands, urethra, [place]'s glands, no vulvar lesions, good vaginal support, physiologic discharge present, normal appearing perineal body and perianal region, cervix surgically absent BIMANUAL: no adnexal masses, non-tender, and uterus surgically absent RECTOVAGINAL: deferred. NEURO: alert and oriented x3,exam grossly non-focal EXTREMITIES: normal ASSESSMENT/PLAN: 1) Health maintenance: Pap/HPV up to date 2023. Mammogram ordered Mammogram up to date Nutrition, exercise and routine health maintenance exams reviewed. Calcium/Vitamin D supplementation information provided. Smoking cessation: Smoking cessation encouraged and resources provided. Colon cancer screening: up to date with screening TSH/lipids/glucose: followed by PCP BMD: followed by PCP 2) Follow up one year or sooner as needed Family history of ovarian cancer - ICD9: V16.41, ICD10: Z80.41 Family history of breast cancer - ICD9: V16.3, ICD10: Z80.3 - CONSULT TO MEDICAL GENETICS - GENERAL - CONSULT TO BREAST CTR HEREDITARY HIGH RISK Right axillary swelling - ICD9: 729.81, ICD10: M79.89 - Had imaging for this in 2023 and saw PCP 2023 - Unknown etiology - I recommend consult with general surgery for second opinion - CONSULT TO GENERAL SURGERY Vaginal dryness - ICD9: 625.8, ICD10: N89.8 - [place] (more content not included)...[facility]04-25-2025 NoteHNO ID: [id number] Author: LAURA HERNANDEZ APRN.DUMPER Service: ? Author Type: Nurse Practitioner Type: Progress Notes Filed: 10/31/2024 12:22 Note Text: CC: Patient presents with: Chest Congestion: Chest congestion, wheezing x 3 days HPI Jane Steinberg is a 53 year old female who presents today for copd exacerbation. Recording using ImmuMet[employer] software for draft documentation of the visit was discussed with the patient/authorized client care representative; all questions welcomed and answered. Patient/authorized client care representative agreed to proceed COPD: - Increased wheezing and dyspnea x3 days. - No known triggers; denies recent outdoor exposure or contact with sick individuals. - Windows open in the house. - Denies fever, chills, or body aches. - Increased cough, but minimal sputum production. - Using albuterol inhaler every few hours. - Taking Claritin and montelukast daily; no current use of Flonase. - Some nasal drainage; denies sneezing, sinus congestion, or itchy/watery eyes. - Denies chest pressure or swelling; reports back pain associated with breathing and coughing. - Last steroid use was about a month ago, a quick burst. - Took doxycycline in July. - Smokes 4-5 cigarettes per day. - Allergic to penicillin. REVIEW OF SYSTEMS See HPI PAST MEDICAL HISTORY Diagnosis Date Anorexia nervosa (HCC) 06/11/2006 Stable; treated in past Anxiety Asthma (HCC) 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 02/13/2020 Bulimia nervosa 06/11/2006 Stable, treated in past Cancer (HCC) Chest pain Cholelithiasis 07/24/2023 Chronic obstructive pulmonary disease (COPD) (HCC) Emphysema lung (HCC) GERD (gastroesophageal reflux disease) H. pylori infection cronic Hiatal hernia 02/13/2020 small HISTORY OF CANCER OF UTERUS 06/11/2006 2004, Hysterectomy - complete History of COVID-19 07/10/2023 Internal hemorrhoids Lung disease Migraines Overweight (BMI 25.0-29.9) 07/10/2023 Snoring Tobacco use disorder 06/11/2006 Quit 09/2015. Unspecified asthma(493.90) Childhood diagnosis. PAST SURGICAL HISTORY Procedure Laterality Date APPENDECTOMY 1998 COLONOSCOPY 01/12/2023 no specimens, next colonoscopy 2029 EGD WITH BIOPSY(S) 03/13/2017 Dr. Shook EGD WITH BIOPSY(S) 02/13/2020 small hiatal hernia; Duggan's without dysplasia; Dr. Montoya EGD WITH BIOPSY(S) 10/06/2021 H. pylori +; Duggan's without dysplasia; Dr. Riggs EGD WITH BIOPSY(S) 09/12/2022 neg for H. pylori; Dr. Riggs LAPS SURG CHOLECYSTECTOMY W/CHOLANGIOGRAPHY 07/24/2023 PAST SURGICAL HISTORY OF 2004 Lymph Node Bx 1999 TOTAL ABDOMINAL HYSTERECT W/WO RMVL TUBE OVARY 2004 and BSO - pelvic pain/benign ALLERGIES Penicillins MEDICATIONS predniSONE (DELTASONE) 20 mg tablet Take 2 tablets by mouth once daily. azithromycin (ZITHROMAX Z-NEEMA) 250 mg tablet Take 2 tablets day one, then, 1 tablet daily until gone. fluticasone (FLONASE) 50 mcg/actuation nasal spray Use 2 sprays in each nostril once daily. Rinse mouth after use. meloxicam (MOBIC) 15 mg tablet Take 1 tablet by mouth once daily. SUMAtriptan (IMITREX) 50 mg tablet Take 1 tablet by mouth as needed for migraine headache (see administration instructions) (at onset of headache. May repeat after 2 hours.). May repeat dose after 2 hours if needed. Maximum daily dose is 200 mg per day. amitriptyline 150 mg tablet Take 1 tablet by mouth daily at bedtime. SODIUM CITRATE ORAL Take by mouth. promethazine (PHENERGAN) 25 mg tablet Take 1 tablet by mouth every 8 hours as needed (for nausea). ergocalciferol 50,000 unit capsule (VITAMIN D2, DRISDOL) Take 1 tablet by mouth twice weekly [id number], then decrease to 1 tablet weekly. tiZANidine (ZANAFLEX) 4 mg tablet Take 1 tablet by mouth every 8 hours as needed. atorvastatin (LIPITOR) 20 mg tablet Take 1 tablet by mouth once daily. EPINEPHrine (EPIPEN) 0.3 mg/0.3 mL auto-injector Inject intramuscularly. multivit with minerals/lutein (MULTIVITAMIN 50 PLUS ORAL) Take by mouth. IBSRELA 50 mg tablet TAKE 1 TABLET BY MOUTH TWICE A DAY 10 MINUTES BEFORE EATING diclofenac (VOLTAREN) 1 % topical gel Apply 2 g to affected area twice daily. FASENRA PEN 30 mg/mL auto-injector Dexlansoprazole (DEXILANT) 60 mg CpDM Take 60 mg by mouth once daily. magnesium hydroxide (MILK OF MAGNESIA) 400 mg/5 mL suspension Take 15 mL by mouth once daily as needed for constipation. bisacodyl (DULCOLAX, BISACODYL,) 10 mg supp 1 Suppository by RECTAL route once daily as needed for constipation. famotidine (PEPCID) 40 mg tablet Take 1 tablet by mouth once daily as needed. MUCUS RELIEF ER 600 mg 12 hr tablet Take 1,200 mg by mouth twice daily. montelukast (SINGULAIR) 10 mg tablet Take 1 tablet by mouth daily at bedtime. bmflysmxdrz-prfuienqw-hgdhcepy (TRELEGY ELLIPTA) 200-62.5-25 mcg inhalation powder Inhale as instructed. albuterol HFA (VENTOLIN HFA) 90 mcg/actuation inhaler Inhale 2 Puffs as instructed every 4 hours as (more content not included)...[facility]04-07-2025 NoteHNO ID: [id number] Author: HEATH MAR MD Service: ? Author Type: Physician Type: Progress Notes Filed: 10/13/2024 09:33 Note Text: Heath Mar MD Department of Orthopaedics Orthopa[facility] [address] [address] Dept: [phone] Dept October 13, 2024 CHIEF COMPLAINT: New and Pain of the Right Shoulder Yohannes is a 53-year-old female with a history of osteoporosis, presenting for evaluation of right shoulder and arm pain. HPI Right Shoulder and Arm Pain: - Pain localized to the shoulder, radiating down the arm with associated numbness. - Aggravated by pressure in the axillary region, which elicits shooting pain down the arm. - Denies any limitations in shoulder mobility. - Recent shoulder X-ray showed minimal degenerative changes and small bone spurs. - Underwent a nerve conduction study last summer, which was reportedly normal. - No current use of anti-inflammatory medications. Cervicalgia: - Reports neck pain and migraines. - Previous evaluation by Dr. Hamilton noted abnormal cervical curvature. - No prior physical therapy for the neck. Osteoporosis: - Diagnosed following a bone density test. ASSESSMENT: 1. RUE weakness (R29.898) 2. Axillary pain, right (M79.621) 3. Chronic right shoulder pain (M25.511) 4. Cervical radiculopathy (M54.12) 5. Cervical disc disorder with radiculopathy of cervical region (M50.10) PLAN: - Shoulder X-ray shows minimal degenerative changes with small osteophytes; no significant arthritis. - Spurling's test positive on the right side, indicating possible cervical nerve root irritation. - Previous nerve conduction study of the upper extremities was normal. - Symptoms and exam findings suggest cervical radiculopathy rather than primary shoulder pathology. - Prescribed meloxicam 15 mg orally once daily; sent prescription to [facility] pharmacy. - Ordered physical therapy focusing on cervical spine exercises. - If no significant improvement after one month of physical therapy and anti-inflammatory treatment, will order MRI of the cervical spine. 6. Age-related osteoporosis without current pathological fracture (M81.0) - Discussed previous bone density test results indicating osteoporosis. - Reinforced importance of bone health to prevent fractures. Will continue to monitor patient for Rue weakness Axillary pain, right Chronic right shoulder pain Cervical radiculopathy (primary encounter diagnosis) Cervical disc disorder with radiculopathy of cervical region Age-related osteoporosis without current pathological fracture, patient to schedule visit as per follow up discussed. OBJECTIVE: Ms. Jane Steinberg is a pleasant 53 year old in no apparent distress. Gen:There were no vitals taken for this visit. nl development, non obese, no deformities ENT: Normocephalic, normal hearing, moist mucosa CV: Pulses:Radial= 2+ and symmetric, capillary refill < 2 secs, no peripheral edema/varicosities Skin: no rash, bruising or lesions. Good turgor. Psych: cooperative and appropriate, alert and oriented x 3, good mood and affect. - Musculoskeletal: - Right Shoulder: No palpable swelling in the axilla. No tenderness. - ROM: Forward elevation to 180 degrees, external rotation full. IR upper thoracic. - Provocative test: Negative impingement sign. - Neck: - Provocative test: Spurling's test positive on ipsilateral side, negative oncontralateral side . IMAGING: IMPRESSION: Minimal degenerative changes. Certified Orthotic Fitter: GEENA Transcribe Date/Time: Jan 03 2024 7:43A Dictated by : GINGER MONTEMAYOR MD This examination was interpreted and the report reviewed and electronically signed by: GINGER MONTEMAYOR MD on Jan 03 2024 7:43AM EST Results-Findings * * *Final Report* * * DATE OF EXAM: 2023 3:09PM WOX 5253 - XR SHLDR >/=3V AP/RACHEL AP/OTHR RT / PROCEDURE REASON: multiple diagnoses * * * * Physician Interpretation * * * * EXAMINATION: XR SHLDR >/=3V AP/RACHEL AP/OTHR RT, XR SHLDR >/=3V AP/RACHEL AP/OTHR LT HISTORY: Pain in neck and painful lumps in bilateral axillary region. Pain in axilla, unspecified laterality Numbness and tingling of both upper extremities Numbness and tingling of both upper extremities . TECHNIQUE: XR SHLDR >/=3V AP/RACHEL AP/OTHR RT, XR SHLDR >/=3V AP/RACHEL AP/OTHR LT Laterality: RIGHT (accession [id number]), LEFT (accession [id number]) Number of different views (projections): 3 M: XB_1 COMPARISON: August 18, 2021 RESULT: Minimal glenohumeral and acromioclavicular degenerative changes bilaterally. No acute bone destruction. No acute fracture or dislocation. There are no bony erosions. Supporting Subjective Information Below: Past Medical History: PAST MEDICAL HISTORY Diagnosis Date Anorexia nervosa (HCC) 06/11/2006 Stable; treated in past Anxiety Asthma (HCC) 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 02/13/2020 Bul (more content not included)...[facility]04-07-2025 History of Present illness Narrative* Heath Mar MD - 10/13/2024 9:26 AM EDT Heath Mar MD Department of Orthopaedics Orthopaedics [address] [address] Dept: [phone] Dept October 13, 2024 CHIEF COMPLAINT: New and Pain of the Right Shoulder Yohannes is a 53-year-old female with a history of osteoporosis, presenting for evaluation of right shoulder and arm pain. HPI Right Shoulder and Arm Pain: - Pain localized to the shoulder, radiating down the arm with associated numbness. - Aggravated by pressure in the axillary region, which elicits shooting pain down the arm. - Denies any limitations in shoulder mobility. - Recent shoulder X-ray showed minimal degenerative changes and small bone spurs. - Underwent a nerve conduction study last summer, which was reportedly normal. - No current use of anti-inflammatory medications. Cervicalgia: - Reports neck pain and migraines. - Previous evaluation by Dr. Hamilton noted abnormal cervical curvature. - No prior physical therapy for the neck. Osteoporosis: - Diagnosed following a bone density test. ASSESSMENT: 1. RUE weakness (R29.898) 2. Axillary pain, right (M79.621) 3. Chronic right shoulder pain (M25.511) 4. Cervical radiculopathy (M54.12) 5. Cervical disc disorder with radiculopathy of cervical region (M50.10) PLAN: - Shoulder X-ray shows minimal degenerative changes with small osteophytes; no significant arthritis. - Spurling's test positive on the right side, indicating possible cervical nerve root irritation. - Previous nerve conduction study of the upper extremities was normal. - Symptoms and exam findings suggest cervical radiculopathy rather than primary shoulder pathology. - Prescribed meloxicam 15 mg orally once daily; sent prescription to [facility] pharmacy. - Ordered physical therapy focusing on cervical spine exercises. - If no significant improvement after one month of physical therapy and anti- inflammatory treatment, will order MRI of the cervical spine. 6. Age-related osteoporosis without current pathological fracture (M81.0) - Discussed previous bone density test results indicating osteoporosis. - Reinforced importance of bone health to prevent fractures. Will continue to monitor patient for Rue weakness Axillary pain, right Chronic right shoulder pain Cervical radiculopathy (primary encounter diagnosis) Cervical disc disorder with radiculopathy of cervical region Age-related osteoporosis without current pathological fracture, patient to schedule visit as per follow up discussed. OBJECTIVE: Ms. Jane Steinberg is a pleasant 53 year old in no apparent distress. Gen:There were no vitals taken for this visit. nl development, non obese, no deformities ENT: Normocephalic, normal hearing, moist mucosa CV: Pulses:Radial= 2+ and symmetric, capillary refill < 2 secs, no peripheral edema/varicosities Skin: no rash, bruising or lesions. Good turgor. Psych: cooperative and appropriate, alert and oriented x 3, good mood and affect. - Musculoskeletal: - Right Shoulder: No palpable swelling in the axilla. No tenderness. - ROM: Forward elevation to 180 degrees, external rotation full. IR upper thoracic. - Provocative test: Negative impingement sign. - Neck: - Provocative test: Spurling's test positive on ipsilateral side, negative oncontralateral side . IMAGING: IMPRESSION: Minimal degenerative changes. Certified Orthotic Fitter: cFares Transcribe Date/Time: Jan 03 2024 7:43A Dictated by : GINGER MONTEMAYOR MD This examination was interpreted and the report reviewed and electronically signed by: GINGER MONTEMAYOR MD on Jan 03 2024 7:43AM EST Results-Findings * * *Final Report* * * DATE OF EXAM: 2023 3:09PM WOX 5253 - XR SHLDR >/=3V AP/RACHEL AP/OTHR RT / PROCEDURE REASON: multiple diagnoses * * * * Physician Interpretation * * * * EXAMINATION: XR SHLDR >/=3V AP/RACHEL AP/OTHR RT, XR SHLDR >/=3V AP/RACHEL AP/OTHR LT HISTORY: Pain in neck and painful lumps in bilateral axillary region. Pain in axilla, unspecified laterality Numbness and tingling of both upper extremities Numbness and tingling of both upper extremities . TECHNIQUE: XR SHLDR >/=3V AP/RACHEL AP/OTHR RT, XR SHLDR >/=3V AP/RACHEL AP/OTHR LT Laterality: RIGHT (accession [id number]), LEFT (accession [id number]) Number of different views (projections): 3 M: XB_1 COMPARISON: August 18, 2021 RESULT: Minimal glenohumeral and acromioclavicular degenerative changes bilaterally. No acute bone destruction. No acute fracture or dislocation. There are no bony erosions. Supporting Subjective Information Below: Past Medical History: PAST MEDICAL HISTORY Diagnosis Date Anorexia nervosa (HCC) 06/11/2006 Stable; treated in past Anxiety Asthma ([facility]) 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 02/13/2020 Bulimia nervosa 06/11/2006 Stable, treated in past Cancer (HCC) Chest pain Cholelithiasis 07/24/2023 Chronic obstructive pulmonary disease (COPD) (HCC) Emphysema lung (HCC) GERD (gastroesophageal reflux disease) H. pylori infection cronic Hiatal hernia 02/13/2020 small HISTORY OF CANCER OF UTERUS 06/11/2006 2004, Hysterectomy - complete History of COVID-19 07/10/2023 Internal hemorrhoids Lung disease Migraines Overweight (BMI 25.0-29.9) 07/10/2023 Snoring Tobacco use disorder 06/11/2006 Quit 09/2015. Unspecified asthma(493.90) Childhood diagnosis. Past Surgical History: PAST SURGICAL HISTORY Procedure Laterality Date APPENDECTOMY 1998 COLONOSCOPY 01/12/2023 no specimens, next colonoscopy 2029 EGD WITH BIOPSY(S) 03/13/2017 Dr. Shook EGD WITH BIOPSY(S) 02/13/2020 small hiatal hernia; Duggan's without dysplasia; Dr. Montoya EGD WITH BIOPSY(S) 10/06/2021 H. pylori +; Duggan's without dysplasia; Dr. Riggs EGD WITH BIOPSY(S) 09/12/2022 neg for H. pylori; Dr. Riggs LAPS SURG CHOLECYSTECTOMY W/CHOLANGIOGRAPHY 07/24/2023 PAST SURGICAL HISTORY OF 2003 Lymph Node Bx 1999 TOTAL ABDOMINAL HYSTERECT W/WO RMVL TUBE OVARY 2004 and BSO - pelvic pain/benign Family History: FAMILY HISTORY Problem Relation Age of Onset Hypertension Mother Heart Mother Eczema Mother other (AAA) Mother other (Fibromyalgia) Mother Alcohol/Drug Father Alcohol Cancer Father lung Colon Cancer Father Hypertension Sister Asthma Sister other (Migraines) Sister other (Gout) Sister other (Fibromyalgia) Sister Cancer Sister 32 Ovarian cancer Sister 32 Breast Cancer Maternal Aunt 2 maternal aunts. other (MICRO PHOTOGRAPHER cancer) No Family History Anesthesia Problems No Family History Blood Clots No Family History Social History: Social History Tobacco Use Smoking status: Every Day Current packs/day: 0.00 Average packs/day: 0.3 packs/day for 35.0 years (8.8 ttl pk-yrs) Types: Cigarettes Start date: 11/17/1986 Last attempt to quit: 11/23/2021 Years since quittin.8 Smokeless tobacco: Never Vaping Use Vaping status: Never Used Substance Use Topics Alcohol use: Not Currently Comment: Rarely Drug use: No Medications: Current Outpatient Medications Medication Sig SUMAtriptan (IMITREX) 50 mg tablet Take 1 tablet by mouth as needed for migraine headache (see administration instructions) (at onset of headache. May repeat after 2 hours.). May repeat dose after 2 hours if needed. Maximum daily dose is 200 mg per day. amitriptyline 150 mg tablet Take 1 tablet by mouth daily at bedtime. SODIUM CITRATE ORAL Take by mouth. promethazine (PHENERGAN) 25 mg tablet Take 1 tablet by mouth every 8 hours as needed (for nausea). ergocalciferol 50,000 unit capsule (VITAMIN D2, DRISDOL) Take 1 tablet by mouth twice weekly [id number], then decrease to 1 tablet weekly. tiZANidine (ZANAFLEX) 4 mg tablet Take 1 tablet by mouth every 8 hours as needed. atorvastatin (LIPITOR) 20 mg tablet Take 1 tablet by mouth once daily. multivit with minerals/lutein (MULTIVITAMIN 50 PLUS ORAL) Take by mouth. IBSRELA 50 mg tablet TAKE 1 TABLET BY MOUTH TWICE A DAY 10 MINUTES BEFORE EATING fluticasone (FLONASE) 50 mcg/actuation nasal spray Use 2 Sprays in each nostril once daily. Rinse mouth after use. diclofenac (VOLTAREN) 1 % topical gel Apply 2 g to affected area twice daily. FASENRA PEN 30 mg/mL auto-injector Dexlansoprazole (DEXILANT) 60 mg CpDM Take 60 mg by mouth once daily. magnesium hydroxide (MILK OF MAGNESIA) 400 mg/5 mL suspension Take 15 mL by mouth once daily as needed for constipation. bisacodyl (DULCOLAX, BISACODYL,) 10 mg supp 1 Suppository by RECTAL route once daily as needed for constipation. famotidine (PEPCID) 40 mg tablet Take 1 tablet by mouth once daily as needed. MUCUS RELIEF ER 600 mg 12 hr tablet Take 1,200 mg by mouth twice daily. montelukast (SINGULAIR) 10 mg tablet Take 1 tablet by mouth daily at bedtime. gvwepeiyaaw-gnwhbhsrp-tpufycpz (TRELEGY ELLIPTA) 200-62.5-25 mcg inhalation powder Inhale as instructed. albuterol HFA (VENTOLIN HFA) 90 mcg/actuation inhaler Inhale 2 Puffs as instructed every 4 hours asneeded for wheezing/shortness of breath. L. acidophilus-L. rhamnosus 15 billion cell cap Take 1 capsule by mouth once daily. FLORAJEN WOMEN.If on antibiotic, take at least 1-2 hours before or after antibiotic. KEEP REFRIGERATED albuterol (PROVENTIL) 2.5 mg /3 mL (0.083 %) nebulizer solution Use 3 mL via nebulizer every 6 hours as needed. ipratropium-albuterol (DUONEB) 0.5 mg-3 mg(2.5 mg base)/3 mL nebu Inhale 3 mL as instructed every 4hours as needed. loratadine (CLARITIN) 10 mg tablet Take 1 tablet by mouth once daily. meloxicam (MOBIC) 15 mg tablet Take 1 tablet by mouth once daily. EPINEPHrine (EPIPEN) 0.3 mg/0.3 mL auto-injector Inject intramuscularly. COMPACT SPACE CHAMBER as directed. PULSE OXIMETER CONTEC 1 Each as needed. Comp Stocking,Knee,Regular,Med misc 2 Each once daily. No current facility-administered medications for this visit. Allergies: Penicillins ROS: General (negative for fatigue, malaise, weight loss/gain) HEENT (negative for headache, earache, recent vision changes, sinus pain, sore throat) Respiratory (no recent shortness of breath, hemoptysis) CV (negative for chest tightness, palpitations) Musculoskeletal (see HPI) Psych (no depression, anxiety) The patient consented to the use of [employer] software for draft documentation of the visit consistent with [facility] s Notice of Privacy Practices. Heath Mar MD * Heath Mar MD - 10/13/2024 8:37 AM EDT 2 documented in this encounterCoshocton [facility]04-07-2025 NoteHNO ID: [id number] Author: HEATH MAR MD Service: ? Author Type: Physician Type: Progress Notes Filed: 10/13/2024 09:33 Note Text: [facility]* Diagnosis Onset Date Resolution Status Admit Date Duggan esophagus determined by endoscopy acute October 07, 2024 8:22am Gastritis acute October 07 8:22am Sphincter of Oddi dysfunction acute October 07, 2024 8:22am [facility] Work Phone: [phone]) 600-603704-01-2025 Evaluation note* Diagnosis Onset Date Resolution Status Admit Date Duggan esophagus determined by endoscopy acute October 07, 2024 8:22am Gastritis acute October 07 8:22am Sphincter of Oddi dysfunction acute October 07, 2024 8:22am Duggan esophagus determined by endoscopy acute January 06, 2025 9 :23am Gastritis acute January 06, 2025 9:23am Sphincter of Oddi dysfunction acute January 06, 2025 9:23am Hypoxia acute January 14, 2025 8:01am Asthma-COPD overlap syndrome chronic January 14, 2025 8:01am [facility] Work Phone: 1(950) 577-460503-26-2025 NoteHNO ID: [id number] Author: LENORE LILLY CPhT Service: ? Author Type: Spiritual Counselor Type: Progress Notes Filed: 10/01/2024 10:52 Note Text: Patient is identified through a medication adherence outreach initiative based on pharmacy claims data from: [facility] Medication Adherence Category: Statins First Review Attribution Status: Correct Attribution Medication(s) Atorvastatin 20 mg Medication Status per portal/Epic Reconcile Dispense: Filled on time - On or before next fill date Date Filled (MM/DD): 09/22 Day Supply: 30 Medication Status per Profile Review: No issues per profile review Patient appropriate for outreach? No Reason patient not appropriate for outreach:Patient filled on time / no adherence concerns to be addressed Lenore Lilly CPhT [facility] History of Present illness Narrative* Lenore Lilly CPhT - 10/01/2024 10:51 AM EDT Patient is identified through a medication adherence outreach initiative based on pharmacy claims data from: [facility] Medication Adherence Category: Statins First Review Attribution Status: Correct Attribution Medication(s) Atorvastatin 20 mg Medication Status per portal/Epic Reconcile Dispense: Filled on time - On or before next fill date Date Filled (MM/DD): 03/17 Day Supply: 30 Medication Status per Profile Review: No issues per profile review Patient appropriate for outreach? No Reason patient not appropriate for outreach:Patient filled on time / no adherence concerns to be addressed Lenore Lilly CPhT [facility] Based [facility] Pharmacy Team documented in this encounterCoshocton [facility]03-26-2025 NotePatient Outreach (PHPOHE) JANE STEINBERG ([id number]) 1970 F Date Time Provider Department 10/01/24 AMANDA WALLACE PHPOHE During your visit today, we recorded the following information about you: Lenore Lilly CPhT 10/01/2024 10:52 AM Signed Patient is identified through a medication adherence outreach initiative based on pharmacy claims data from: [facility] Medication Adherence Category: Statins First Review Attribution Status: Correct Attribution Medication(s) Atorvastatin 20 mg Medication Status per portal/Epic Reconcile Dispense: Filled on time - On or before next fill date Date Filled (MM/DD): 09/22 Day Supply: 30 Medication Status per Profile Review: No issues per profile review Patient appropriate for outreach? No Reason patient not appropriate for outreach:Patient filled on time / no adherence concerns to be addressed Lenore Lilly CPhT Value [facility] Pharmacy Team Allergies As of Date: 10/01/2024 Noted Allergy Reaction PENICILLINS 06/11/2006 10 - Anaphylaxis Date Reviewed: 09/08/2024 Reviewed by: Latasha Salamanca MA - Fully Assessed Reason for Visit: Allied Health Visit [5] Cmt: Medication Adherence Outreach Prescriptions as of 10/01/2024 - SUMAtriptan (IMITREX) 50 mg tablet Take 1 tablet by mouth as needed for migraine headache (see administration instructions) (at onset of headache. May repeat after 2 hours.). May repeat dose after 2 hours if needed. Maximum daily dose is 200 mg per day. - amitriptyline 150 mg tablet Take 1 tablet by mouth daily at bedtime. - SODIUM CITRATE ORAL Take by mouth. - promethazine (PHENERGAN) 25 mg tablet Take 1 tablet by mouth every 8 hours as needed (for nausea). - ergocalciferol 50,000 unit capsule (VITAMIN D2, DRISDOL) Take 1 tablet by mouth twice weekly [id number], then decrease to 1 tablet weekly. - tiZANidine (ZANAFLEX) 4 mg tablet Take 1 tablet by mouth every 8 hours as needed. - atorvastatin (LIPITOR) 20 mg tablet Take 1 tablet by mouth once daily. - EPINEPHrine (EPIPEN) 0.3 mg/0.3 mL auto-injector Inject intramuscularly. - multivit with minerals/lutein (MULTIVITAMIN 50 PLUS ORAL) Take by mouth. - IBSRELA 50 mg tablet TAKE 1 TABLET BY MOUTH TWICE A DAY 10 MINUTES BEFORE EATING - fluticasone (FLONASE) 50 mcg/actuation nasal spray Use 2 Sprays in each nostril once daily. Rinse mouth after use. - diclofenac (VOLTAREN) 1 % topical gel Apply 2 g to affected area twice daily. - FASENRA PEN 30 mg/mL auto-injector - Dexlansoprazole (DEXILANT) 60 mg CpDM Take 60 mg by mouth once daily. - magnesium hydroxide (MILK OF MAGNESIA) 400 mg/5 mL suspension Take 15 mL by mouth once daily as needed for constipation. - bisacodyl (DULCOLAX, BISACODYL,) 10 mg supp 1 Suppository by RECTAL route once daily as needed for constipation. - famotidine (PEPCID) 40 mg tablet Take 1 tablet by mouth once daily as needed. - MUCUS RELIEF ER 600 mg 12 hr tablet Take 1,200 mg by mouth twice daily. - montelukast (SINGULAIR) 10 mg tablet Take 1 tablet by mouth daily at bedtime. - ahgsfsybpsc-imllzsikz-ysoimegh (TRELEGY ELLIPTA) 200-62.5-25 mcg inhalation powder Inhale as instructed. - albuterol HFA (VENTOLIN HFA) 90 mcg/actuation inhaler Inhale 2 Puffs as instructed every 4 hours as needed for wheezing/shortness of breath. - L. acidophilus-L. rhamnosus 15 billion cell cap Take 1 capsule by mouth once daily. FLORAJEN WOMEN. If on antibiotic, take at least 1-2 hours before or after antibiotic. KEEP REFRIGERATED - albuterol (PROVENTIL) 2.5 mg /3 mL (0.083 %) nebulizer solution Use 3 mL via nebulizer every 6 hours as needed. - COMPACT SPACE CHAMBER as directed. - ipratropium-albuterol (DUONEB) 0.5 mg-3 mg(2.5 mg base)/3 mL nebu Inhale 3 mL as instructed every 4 hours as needed. - PULSE OXIMETER CONTEC 1 Each as needed. - Comp Stocking,Knee,Regular,Med misc 2 Each once daily. - loratadine (CLARITIN) 10 mg tablet Take 1 tablet by mouth once daily. 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 Author Type: Nurse Practitioner Type: Progress Notes Filed: 09/08/2024 10:09 Note Text: CC: Patient presents with: Recheck: Headache follow up HPI Jane Steinberg is a 53 year old female who presents today for migraine. Was seen 3 weeks ago with migraine vs tension headache. Was given ketoralac in office and imitrex to use at home. Was already on amitriptyline for migraine with aura prevention. Tolerating the imitrex well but has needed all 10 tablets. No headache today and used last 2 days ago. Previous Visit: Pain starts at neck and radiates into head and is a constant ache that varies in severity. Worsens with noise. Very bright lights can make it worse as well. Excedrin migraine helps for a few hours but it returns immediately. Last taken yesterday. Will sometimes see sparkly lights but only when the pain is severe. Does have a history of migraines with aura which is controlled with amitriptyline. Denies head injury, fever, chills, weakness, confusion, numbness, nausea, chest pain, or edema. Does have continued cough, wheezing and some shortness of breath she is continuing to follow with pulmonology for this Did have CT of brain a few months ago without concern. Ongoing right sharp axillary pain going straight down the arm, decreased ROM to right shoulder, right shoulder pain, and gets weakness to RUE. This will occur intermittently and then she will describe feeling a know if in her axillary region. It will self resolve and she says nothing makes it resolves. Will just come and go without identifiable cause throughout the day. Has had xray of shoulder last year that showed degenerative changes. Cervical xray showing degeneration and disc space narrowing and negative breast and axillary imaging. After the studies, patient started with new onset syncope and other issues so this was tabled but now would like it revaluated. Is noticing she is dropping more things over the last few months. This was prior to the headaches and med changes. Denies injuries or falls. Not occurring in office visit. Denies swelling, redness, fever, chills, or numbness. REVIEW OF SYSTEMS See HPI PAST MEDICAL HISTORY Diagnosis Date Anorexia nervosa 06/11/2006 Stable; treated in past Anxiety Asthma 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 02/13/2020 Bulimia nervosa 06/11/2006 Stable, treated in past Cancer (HCC) Chest pain Cholelithiasis 07/24/2023 Chronic obstructive pulmonary disease (COPD) (HCC) Emphysema lung (HCC) GERD (gastroesophageal reflux disease) H. pylori infection cronic Hiatal hernia 02/13/2020 small HISTORY OF CANCER OF UTERUS 06/11/2006 2004, Hysterectomy - complete History of COVID-19 07/10/2023 Internal hemorrhoids Lung disease Migraines Overweight (BMI 25.0-29.9) 07/10/2023 Snoring Tobacco use disorder 06/11/2006 Quit 09/2015. Unspecified asthma(493.90) Childhood diagnosis. PAST SURGICAL HISTORY Procedure Laterality Date APPENDECTOMY 1998 COLONOSCOPY 01/12/2023 no specimens, next colonoscopy 2029 EGD WITH BIOPSY(S) 03/13/2017 Dr. Shook EGD WITH BIOPSY(S) 02/13/2020 small hiatal hernia; Duggan's without dysplasia; Dr. Montoya EGD WITH BIOPSY(S) 10/06/2021 H. pylori +; Duggan's without dysplasia; Dr. Riggs EGD WITH BIOPSY(S) 09/12/2022 neg for H. pylori; Dr. Riggs LAPS SURG CHOLECYSTECTOMY W/CHOLANGIOGRAPHY 07/24/2023 PAST SURGICAL HISTORY OF 2003 Lymph Node Bx 1999 TOTAL ABDOMINAL HYSTERECT W/WO RMVL TUBE OVARY 2004 and BSO - pelvic pain/benign ALLERGIES Penicillins MEDICATIONS SUMAtriptan (IMITREX) 50 mg tablet Take 1 tablet (50 mg) by mouth as needed for migraine headache (see administration instructions) (at onset of headache. May repeat after 2 hours.). May repeat dose after 2 hours if needed. Maximum daily dose is 200 mg per day. SODIUM CITRATE ORAL Take by mouth. promethazine (PHENERGAN) 25 mg tablet Take 1 tablet by mouth every 8 hours as needed (for nausea). ergocalciferol 50,000 unit capsule (VITAMIN D2, DRISDOL) Take 1 tablet by mouth twice weekly [id number], then decrease to 1 tablet weekly. tiZANidine (ZANAFLEX) 4 mg tablet Take 1 tablet by mouth every 8 hours as needed. atorvastatin (LIPITOR) 20 mg tablet Take 1 tablet by mouth once daily. varenicline (CHANTIX STARTING MONTH BOX) 0.5 mg (11)- 1 mg (42) tablet Take 0.5 mg by mouth once daily on Days 1 through 3, THEN 0.5 mg twice daily on Days 4 through 7, THEN 1 mg twice daily on Day 8 and thereafter (Patient not taking: Reported on 08/02/2024) EPINEPHrine (EPIPEN) 0.3 mg/0.3 mL auto-injector Inject intramuscularly. multivit with minerals/lutein (MULTIVITAMIN 50 PLUS ORAL) Take by mouth. amitriptyline (ELAVIL) 100 mg tablet take 1 tablet by mouth once daily at bedtime IBSRELA 50 mg tablet TAKE 1 TABLET BY MOUTH TWICE A DAY 10 MINUTES BEFORE EATING fluticasone (FLONASE) 50 mc (more content not included)...[facility]03-03-2025 History of Present illness Narrative* Laura Hernandez APRN.DUMPER - 09/08/2024 8:59 AM EST CC: Patient presents with: Recheck: Headache follow up HPI Jane Steinberg is a 53 year old female who presents today for migraine. Was seen 3 weeks ago with migraine vs tension headache. Was given ketoralac in office and imitrex to use at home. Was already on amitriptyline for migraine with aura prevention. Tolerating the imitrex well but has needed all 10 tablets. No headache today and used last 2 days ago. Previous Visit: Pain starts at neck and radiates into head and is a constant ache that varies in severity. Worsens with noise. Very bright lights can make it worse as well. Excedrin migraine helps for a few hours but it returns immediately. Last taken yesterday. Will sometimes see sparkly lights but only when the pain is severe. Does have a history of migraines with aura which is controlled withamitriptyline. Denies head injury, fever, chills, weakness, confusion, numbness, nausea, chest pain, or edema. Does have continued cough, wheezing and some shortness of breath she is continuing to follow with pulmonology for this Did have CT of brain a few months ago without concern. Ongoing right sharp axillary pain going straight down the arm, decreased ROM to right shoulder, right shoulder pain, and gets weakness to RUE. This will occur intermittently and then she will describe feeling a know if in her axillary region. It will self resolve and she says nothing makes it resolves. Will just come and go without identifiable cause throughout the day. Has had xray of shoulder last year that showed degenerative changes. Cervical xray showing degeneration and disc space narrowing and negative breast and axillary imaging. After the studies, patient started with new onset syncope and other issues so this was tabled but now would like it revaluated. Is noticing she is dropping more things over the last few months. This was prior to the headaches and med changes. Denies injuries or falls. Not occurring in office visit. Denies swelling, redness, fever, chills, or numbness. REVIEW OF SYSTEMS See HPI PAST MEDICAL HISTORY Diagnosis Date Anorexia nervosa 06/11/2006 Stable; treated in past Anxiety Asthma 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 02/13/2020 Bulimia nervosa 06/11/2006 Stable, treated in past Cancer (HCC) Chest pain Cholelithiasis 07/24/2023 Chronic obstructive pulmonary disease (COPD) (HCC) Emphysema lung (HCC) GERD (gastroesophageal reflux disease) H. pylori infection cronic Hiatal hernia 02/13/2020 small HISTORY OF CANCER OF UTERUS 06/11/20062003, Hysterectomy - complete History of COVID-19 07/10/2023 Internal hemorrhoids Lung disease Migraines Overweight (BMI 25.0-29.9) 07/10/2023 Snoring Tobacco use disorder 06/11/2006 Quit 09/2015. Unspecified asthma(493.90) Childhood diagnosis. PAST SURGICAL HISTORY Procedure Laterality Date APPENDECTOMY 1998 COLONOSCOPY 01/12/2023 no specimens, next colonoscopy 2029 EGD WITH BIOPSY(S) 03/13/2017 Dr. Shook EGD WITH BIOPSY(S) 02/13/2020 small hiatal hernia; Duggan's without dysplasia; Dr. Montoya EGD WITH BIOPSY(S) 10/06/2021 H. pylori +; Duggan's without dysplasia; Dr. Riggs EGD WITH BIOPSY(S) 09/12/2022 neg for H. pylori; Dr. Riggs LAPS SURG CHOLECYSTECTOMY W/CHOLANGIOGRAPHY 07/24/2023 PAST SURGICAL HISTORY OF 2004 Lymph Node Bx 1999 TOTAL ABDOMINAL HYSTERECT W/WO RMVL TUBE OVARY 2004 and BSO - pelvic pain/benign ALLERGIES Penicillins MEDICATIONS SUMAtriptan (IMITREX) 50 mg tablet Take 1 tablet (50 mg) by mouth as needed for migraine headache (see administration instructions) (at onset of headache. May repeat after 2 hours.). May repeat dose after 2 hours if needed. Maximum daily dose is 200 mg per day. SODIUM CITRATE ORAL Take by mouth. promethazine (PHENERGAN) 25 mg tablet Take 1 tablet by mouth every 8 hours as needed (for nausea). ergocalciferol 50,000 unit capsule (VITAMIN D2, DRISDOL) Take 1 tablet by mouth twice weekly [id number], then decrease to 1 tablet weekly. tiZANidine (ZANAFLEX) 4 mg tablet Take 1 tablet by mouth every 8 hours as needed. atorvastatin (LIPITOR) 20 mg tablet Take 1 tablet by mouth once daily. varenicline (CHANTIX STARTING MONTH BOX) 0.5 mg (11)- 1 mg (42) tablet Take 0.5 mg by mouth once daily on Days 1 through 3, THEN 0.5 mg twice daily on Days 4 through 7, THEN 1 mg twice daily on Day 8and thereafter (Patient not taking: Reported on 08/02/2024) EPINEPHrine (EPIPEN) 0.3 mg/0.3 mL auto-injector Inject intramuscularly. multivit with minerals/lutein (MULTIVITAMIN 50 PLUS ORAL) Take by mouth. amitriptyline (ELAVIL) 100 mg tablet take 1 tablet by mouth once daily at bedtime IBSRELA 50 mg tablet TAKE 1 TABLET BY MOUTH TWICE A DAY 10 MINUTES BEFORE EATING fluticasone (FLONASE) 50 mcg/actuation nasal spray Use 2 Sprays in each nostril once daily. Rinse mouth after use. diclofenac (VOLTAREN) 1 % topical gel Apply 2 g to affected area twice daily. FASENRA PEN 30 mg/mL auto-injector Dexlansoprazole (DEXILANT) 60 mg CpDM Take 60 mg by mouth once daily. magnesium hydroxide (MILK OF MAGNESIA) 400 mg/5 mL suspension Take 15 mL by mouth once daily as needed for constipation. bisacodyl (DULCOLAX, BISACODYL,) 10 mg supp 1 Suppository by RECTAL route once daily as needed for constipation. famotidine (PEPCID) 40 mg tablet Take 1 tablet by mouth once daily as needed. MUCUS RELIEF ER 600 mg 12 hr tablet Take 1,200 mg by mouth twice daily. montelukast (SINGULAIR) 10 mg tablet Take 1 tablet by mouth daily at bedtime. xcqrjvmpabu-ydinkkkmh-wrkazijb (TRELEGY ELLIPTA) 200-62.5-25 mcg inhalation powder Inhale as instructed. albuterol HFA (VENTOLIN HFA) 90 mcg/actuation inhaler Inhale 2 Puffs as instructed every 4 hours asneeded for wheezing/shortness of breath. L. acidophilus-L. rhamnosus 15 billion cell cap Take 1 capsule by mouth once daily. FLORAJEN WOMEN.If on antibiotic, take at least 1-2 hours before or after antibiotic. KEEP REFRIGERATED albuterol (PROVENTIL) 2.5 mg /3 mL (0.083 %) nebulizer solution Use 3 mL via nebulizer every 6 hours as needed. COMPACT SPACE CHAMBER as directed. ipratropium-albuterol (DUONEB) 0.5 mg-3 mg(2.5 mg base)/3 mL nebu Inhale 3 mL as instructed every 4hours as needed. PULSE OXIMETER CONTEC 1 Each as needed. Comp Stocking,Knee,Regular,Med misc 2 Each once daily. loratadine (CLARITIN) 10 mg tablet Take 1 tablet by mouth once daily. FAMILY HISTORY Problem Relation Age of Onset Hypertension Mother Heart Mother Eczema Mother other (AAA) Mother other (Fibromyalgia) Mother Alcohol/Drug Father Alcohol Cancer Father lung Colon Cancer Father Hypertension Sister Asthma Sister other (Migraines) Sister other (Gout) Sister other (Fibromyalgia) Sister Cancer Sister 32 Ovarian cancer Sister 32 Breast Cancer Maternal Aunt 2 maternal aunts. other (MICRO PHOTOGRAPHER cancer) No Family History Anesthesia Problems No Family History Blood Clots No Family History Social History Tobacco Use Smoking status: Every Day Current packs/day: 0.00 Average packs/day: 0.3 packs/day for 35.0 years (8.8 ttl pk-yrs) Types: Cigarettes Start date: 11/17/1986 Last attempt to quit: 11/23/2021 Years since quittin.7 Smokeless tobacco: Never Vaping Use Vaping status: Never Used Substance Use Topics Alcohol use: Not Currently Comment: Rarely Drug use: No PHYSICAL EXAM BP 130/82 Pulse 78 Resp 16 Wt 56.2 kg (124 lb) SpO2 98% BMI 22.39 kg/m General Appearance: well appearing, in no acute distress, alert Eyes: conjunctiva pink and moist, no icterus, sclera white, non-injected Neck: Thyroid normal size and symmetric without palpable nodules, Neck supple, No adenopathy Lymph nodes: No cervical lymphadenopathy and No supraclavicular lymphadenopathy Lungs: Lungs clear to auscultation. No wheezing, rhonchi, rales. Heart: RRR without murmur, gallop, or rubs. No ectopy Neck: Inspection: normal Palpation: non-tender ROM: full Musculoskeletal: Bilateral shoulder: normal to inspection. no tenderness with palpation of deltoid,biceps tendon, trapezius, clavicle, AC (Acromioclavicular) joint, and SC (Sternoclavicular) joint. ROM: full. Special tests: Drop arm: -, Empty Can: -, Infraspinatus: -, Brooks:-, Neer - Upper extremities: reflexes: +2 to bilateral U/L extremities.. Muscle strength: 5/5 upper, bilaterally, sensation intact Extremities: No deformities, edema, skin discoloration, clubbing or cyanosis. Good capillary refill. Pulses palpable. Health maintenance reviewed with patient: Anxiety Screening Never done Hepatitis B Vaccine(1 of 3 - 19+ 3-dose series) Never done DTaP,Tdap,Td Vaccine(6 - Tdap) due on 07/31/2006 Shingrix Vaccine(1 of 2) Never done Covid-19 Vaccine(6 - 2023- season) due on 03/09/2024 Mammogram Screening due on 10/08/2024 Pneumococcal Vaccine: 50+(2 of 2 - PCV) due on 05/15/2025 Annual PCP Team Chronic Disease Visit due on 08/21/2025 Diabetes Screening due on 05/23/2027 Lipid Screening due on 05/23/2029 Colorectal Cancer Screening due on 01/12/2033 Alpha-1 Antitrypsin Deficiency Screening Completed Spirometry Completed Influenza Vaccine Completed Hepatitis C Screening Completed HIV Screening Completed Cervical Cancer Screening Discontinued DATA REVIEWED: Most recent imaging ASSESSMENT/PLAN: 1. Acute intractable headache, unspecified headache type - ICD9: 784.0, ICD10: R51.9 (primary diagnosis) Imitrex working well but needing often, increasing amitriptyline to decrease need of use. No red flag symptoms or exam findings. Neuro exam benign - Reviewed headache treatment, prevention and when to seek emergency care; see patient instructions - SUMATRIPTAN 50 MG TABLET - follow up if needing imitrex more then 1-2 times a week or for any other changes or concerns. 2. Migraine without status migrainosus, not intractable, unspecified migraine type - ICD9: 346.90, ICD10: G43.909 As above - SUMATRIPTAN 50 MG TABLET 3. RUE weakness - ICD9: 729.89, ICD10: R29.898 Assessments typically normal, imaging unremarkable out of degeneration, but the intermittent complaints sound like musculoskeletal cause so will have her see orthopedics for further evaluation of this - CONSULT TO ORTHOPAEDICS 4. Axillary pain, right - ICD9: 729.5, ICD10: M79.621 As above - CONSULT TO ORTHOPAEDICS 5. Chronic right shoulder pain - ICD9: 719.41, 338.29, ICD10: M25.511, G89.29 See #3 - CONSULT TO ORTHOPAEDICS Prescription instructions reviewed with patient as applicable. Potential red flag symptoms discussed with the patient. Reviewed appropriate action plan to take if red flag symptoms occur. Patient agreeable to treatment plan. Laura Hernandez APRN.CNP documented in [facility] NoteHNO ID: [id number] Author: LAURA HERNANDEZ APRN.CNP Service: ? Author Type: Nurse Practitioner Type: Progress Notes Filed: 08/21/2024 10:23 Note Text: CC: Patient presents with: Headache: Headache x 1 week HPI Jane Steinberg is a 53 year old female who presents today for headache for the last week after being on steroids and antibiotics for respiratory infection as prescribed by pulmonology. Pain starts at neck and radiates into head and is a constant ache that varies in severity. Worsens with noise. Very bright lights can make it worse as well. Excedrin migraine helps for a few hours but it returns immediately. Last taken yesterday. Will sometimes see sparkly lights but only when the pain is severe. Does have a history of migraines with aura which is controlled with amitriptyline. Denies head injury, fever, chills, weakness, confusion, numbness, nausea, chest pain, or edema. Does have continued cough, wheezing and some shortness of breath she is continuing to follow with pulmonology for this Did have CT of brain a few months ago without concern. REVIEW OF SYSTEMS See HPI PAST MEDICAL HISTORY Diagnosis Date Anorexia nervosa 06/11/2006 Stable; treated in past Anxiety Asthma 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 02/13/2020 Bulimia nervosa 06/11/2006 Stable, treated in past Cancer (HCC) Chest pain Cholelithiasis 07/24/2023 Chronic obstructive pulmonary disease (COPD) (HCC) Emphysema lung (HCC) GERD (gastroesophageal reflux disease) H. pylori infection cronic Hiatal hernia 02/13/2020 small HISTORY OF CANCER OF UTERUS 06/11/2006 2004, Hysterectomy - complete History of COVID-19 07/10/2023 Internal hemorrhoids Lung disease Migraines Overweight (BMI 25.0-29.9) 07/10/2023 Snoring Tobacco use disorder 06/11/2006 Quit 09/2015. Unspecified asthma(493.90) Childhood diagnosis. PAST SURGICAL HISTORY Procedure Laterality Date APPENDECTOMY 1998 COLONOSCOPY 01/12/2023 no specimens, next colonoscopy 2029 EGD WITH BIOPSY(S) 03/13/2017 Dr. Shook EGD WITH BIOPSY(S) 02/13/2020 small hiatal hernia; Duggan's without dysplasia; Dr. Montoya EGD WITH BIOPSY(S) 10/06/2021 H. pylori +; Duggan's without dysplasia; Dr. Riggs EGD WITH BIOPSY(S) 09/12/2022 neg for H. pylori; Dr. Riggs LAPS SURG CHOLECYSTECTOMY W/CHOLANGIOGRAPHY 07/24/2023 PAST SURGICAL HISTORY OF 2004 Lymph Node Bx 1999 TOTAL ABDOMINAL HYSTERECT W/WO RMVL TUBE OVARY 2004 and BSO - pelvic pain/benign ALLERGIES Penicillins MEDICATIONS SODIUM CITRATE ORAL Take by mouth. ibuprofen (MOTRIN) 800 mg tablet Take 1 tablet by mouth every 8 hours as needed for pain. promethazine (PHENERGAN) 25 mg tablet Take 1 tablet by mouth every 8 hours as needed (for nausea). ergocalciferol 50,000 unit capsule (VITAMIN D2, DRISDOL) Take 1 tablet by mouth twice weekly [id number], then decrease to 1 tablet weekly. tiZANidine (ZANAFLEX) 4 mg tablet Take 1 tablet by mouth every 8 hours as needed. atorvastatin (LIPITOR) 20 mg tablet Take 1 tablet by mouth once daily. varenicline (CHANTIX STARTING MONTH BOX) 0.5 mg (11)- 1 mg (42) tablet Take 0.5 mg by mouth once daily on Days 1 through 3, THEN 0.5 mg twice daily on Days 4 through 7, THEN 1 mg twice daily on Day 8 and thereafter (Patient not taking: Reported on 08/02/2024) EPINEPHrine (EPIPEN) 0.3 mg/0.3 mL auto-injector Inject intramuscularly. multivit with minerals/lutein (MULTIVITAMIN 50 PLUS ORAL) Take by mouth. amitriptyline (ELAVIL) 100 mg tablet take 1 tablet by mouth once daily at bedtime IBSRELA 50 mg tablet TAKE 1 TABLET BY MOUTH TWICE A DAY 10 MINUTES BEFORE EATING fluticasone (FLONASE) 50 mcg/actuation nasal spray Use 2 Sprays in each nostril once daily. Rinse mouth after use. diclofenac (VOLTAREN) 1 % topical gel Apply 2 g to affected area twice daily. FASENRA PEN 30 mg/mL auto-injector Dexlansoprazole (DEXILANT) 60 mg CpDM Take 60 mg by mouth once daily. magnesium hydroxide (MILK OF MAGNESIA) 400 mg/5 mL suspension Take 15 mL by mouth once daily as needed for constipation. bisacodyl (DULCOLAX, BISACODYL,) 10 mg supp 1 Suppository by RECTAL route once daily as needed for constipation. famotidine (PEPCID) 40 mg tablet Take 1 tablet by mouth once daily as needed. MUCUS RELIEF ER 600 mg 12 hr tablet Take 1,200 mg by mouth twice daily. montelukast (SINGULAIR) 10 mg tablet Take 1 tablet by mouth daily at bedtime. npmsoogrkhk-fsxcdkazn-uenhufxk (TRELEGY ELLIPTA) 200-62.5-25 mcg inhalation powder Inhale as instructed. albuterol HFA (VENTOLIN HFA) 90 mcg/actuation inhaler Inhale 2 Puffs as instructed every 4 hours as needed for wheezing/shortness of breath. L. acidophilus-L. rhamnosus 15 billion cell cap Take 1 capsule by mouth once daily. FLORAJEN WOMEN. If on antibiotic, take at least 1-2 hours before or after antibiotic. KEEP REFRIGERATED albuterol (PROVENTIL) 2.5 mg /3 mL (0.083 %) nebulizer solution Use 3 mL via nebuliz (more content not included)...[facility]02-13-2025 History of Present illness Narrative* Belen LauraEVELYN.DUMPER - 08/21/2024 9:44 AM EST CC: Patient presents with: Headache: Headache x 1 week HPI Jane Steinberg is a 53 year old female who presents today for headache for the last week after being on steroids and antibiotics for respiratory infection as prescribed by pulmonology. Pain starts at neck and radiates into head and is a constant ache that varies in severity. Worsens with noise. Very bright lights can make it worse as well. Excedrin migraine helps for a few hours but it returns immediately. Last taken yesterday. Will sometimes see sparkly lights but only when the pain is severe. Does have a history of migraines with aura which is controlled with amitriptyline. Denies head injury, fever, chills, weakness, confusion, numbness, nausea, chest pain, or edema. Does have continued cough, wheezing and some shortness of breath she is continuing to follow with pulmonology for this Did have CT of brain a few months ago without concern. REVIEW OF SYSTEMS See HPI PAST MEDICAL HISTORY Diagnosis Date Anorexia nervosa 06/11/2006 Stable; treated in past Anxiety Asthma 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 02/13/2020 Bulimia nervosa 06/11/2006 Stable, treated in past Cancer (HCC) Chest pain Cholelithiasis 07/24/2023 Chronic obstructive pulmonary disease (COPD) (HCC) Emphysema lung (HCC) GERD (gastroesophageal reflux disease) H. pylori infection cronic Hiatal hernia 02/13/2020 small HISTORY OF CANCER OF UTERUS 06/11/2006 2004, Hysterectomy - complete History of COVID-19 07/10/2023 Internal hemorrhoids Lung disease Migraines Overweight (BMI 25.0-29.9) 07/10/2023 Snoring Tobacco use disorder 06/11/2006 Quit 09/2015. Unspecified asthma(493.90) Childhood diagnosis. PAST SURGICAL HISTORY Procedure Laterality Date APPENDECTOMY 1998 COLONOSCOPY 01/12/2023 no specimens, next colonoscopy 2029 EGD WITH BIOPSY(S) 03/13/2017 Dr. Shook EGD WITH BIOPSY(S) 02/13/2020 small hiatal hernia; Duggan's without dysplasia; Dr. Montoya EGD WITH BIOPSY(S) 10/06/2021 H. pylori +; Duggan's without dysplasia; Dr. Rgigs EGD WITH BIOPSY(S) 09/12/2022 neg for H. pylori; Dr. Riggs LAPS SURG CHOLECYSTECTOMY W/CHOLANGIOGRAPHY 07/24/2023 PAST SURGICAL HISTORY OF 2004 Lymph Node Bx 1999 TOTAL ABDOMINAL HYSTERECT W/WO RMVL TUBE OVARY 2004 and BSO - pelvic pain/benign ALLERGIES Penicillins MEDICATIONS SODIUM CITRATE ORAL Take by mouth. ibuprofen (MOTRIN) 800 mg tablet Take 1 tablet by mouth every 8 hours as needed for pain. promethazine (PHENERGAN) 25 mg tablet Take 1 tablet by mouth every 8 hours as needed (for nausea). ergocalciferol 50,000 unit capsule (VITAMIN D2, DRISDOL) Take 1 tablet by mouth twice weekly [id number], then decrease to 1 tablet weekly. tiZANidine (ZANAFLEX) 4 mg tablet Take 1 tablet by mouth every 8 hours as needed. atorvastatin (LIPITOR) 20 mg tablet Take 1 tablet by mouth once daily. varenicline (CHANTIX STARTING MONTH BOX) 0.5 mg (11)- 1 mg (42) tablet Take 0.5 mg by mouth once daily on Days 1 through 3, THEN 0.5 mg twice daily on Days 4 through 7, THEN 1 mg twice daily on Day 8and thereafter (Patient not taking: Reported on 08/02/2024) EPINEPHrine (EPIPEN) 0.3 mg/0.3 mL auto-injector Inject intramuscularly. multivit with minerals/lutein (MULTIVITAMIN 50 PLUS ORAL) Take by mouth. amitriptyline (ELAVIL) 100 mg tablet take 1 tablet by mouth once daily at bedtime IBSRELA 50 mg tablet TAKE 1 TABLET BY MOUTH TWICE A DAY 10 MINUTES BEFORE EATING fluticasone (FLONASE) 50 mcg/actuation nasal spray Use 2 Sprays in each nostril once daily. Rinse mouth after use. diclofenac (VOLTAREN) 1 % topical gel Apply 2 g to affected area twice daily. FASENRA PEN 30 mg/mL auto-injector Dexlansoprazole (DEXILANT) 60 mg CpDM Take 60 mg by mouth once daily. magnesium hydroxide (MILK OF MAGNESIA) 400 mg/5 mL suspension Take 15 mL by mouth once daily as needed for constipation. bisacodyl (DULCOLAX, BISACODYL,) 10 mg supp 1 Suppository by RECTAL route once daily as needed for constipation. famotidine (PEPCID) 40 mg tablet Take 1 tablet by mouth once daily as needed. MUCUS RELIEF ER 600 mg 12 hr tablet Take 1,200 mg by mouth twice daily. montelukast (SINGULAIR) 10 mg tablet Take 1 tablet by mouth daily at bedtime. dtkvxqgnqgw-wxrbmuaxp-onoknzyv (TRELEGY ELLIPTA) 200-62.5-25 mcg inhalation powder Inhale as instructed. albuterol HFA (VENTOLIN HFA) 90 mcg/actuation inhaler Inhale 2 Puffs as instructed every 4 hours asneeded for wheezing/shortness of breath. L. acidophilus-L. rhamnosus 15 billion cell cap Take 1 capsule by mouth once daily. FLORAJEN WOMEN.If on antibiotic, take at least 1-2 hours before or after antibiotic. KEEP REFRIGERATED albuterol (PROVENTIL) 2.5 mg /3 mL (0.083 %) nebulizer solution Use 3 mL via nebulizer every 6 hours as needed. COMPACT SPACE CHAMBER as directed. ipratropium-albuterol (DUONEB) 0.5 mg-3 mg(2.5 mg base)/3 mL nebu Inhale 3 mL as instructed every 4hours as needed. PULSE OXIMETER CONTEC 1 Each as needed. Comp Stocking,Knee,Regular,Med misc 2 Each once daily. loratadine (CLARITIN) 10 mg tablet Take 1 tablet by mouth once daily. FAMILY HISTORY Problem Relation Age of Onset Hypertension Mother Heart Mother Eczema Mother other (AAA) Mother other (Fibromyalgia) Mother Alcohol/Drug Father Alcohol Cancer Father lung Colon Cancer Father Hypertension Sister Asthma Sister other (Migraines) Sister other (Gout) Sister other (Fibromyalgia) Sister Cancer Sister 32 Ovarian cancer Sister 32 Breast Cancer Maternal Aunt 2 maternal aunts. other (MICRO PHOTOGRAPHER cancer) No Family History Anesthesia Problems No Family History Blood Clots No Family History Social History Tobacco Use Smoking status: Every Day Current packs/day: 0.00 Average packs/day: 0.3 packs/day for 35.0 years (8.8 ttl pk-yrs) Types: Cigarettes Start date: 11/17/1986 Last attempt to quit: 11/23/2021 Years since quittin.7 Smokeless tobacco: Never Vaping Use Vaping status: Never Used Substance Use Topics Alcohol use: Not Currently Comment: Rarely Drug use: No PHYSICAL EXAM BP 128/78 Pulse 72 Resp 16 Wt 58.5 kg (129 lb) SpO2 98% BMI 23.29 kg/m General Appearance: well appearing, in no acute distress, alert Eyes: PERRLA, EOM's intact, conjunctiva pink and moist, no icterus, sclera white, non-injected Neck: Thyroid normal size and symmetric without palpable nodules, Neck supple, No adenopathy, full ROM without pain or difficulty. No tenderness to spine or paraspinal muscles. Lymph nodes: No cervical lymphadenopathy and No supraclavicular lymphadenopathy Lungs: Lungs with inspiratory and expiratory wheezing. Heart: RRR without murmur, gallop, or rubs. No ectopy Neurological: Gait normal. Reflexes normal and symmetric. Sensation intact., speech normal, mental status intact, muscle tone normal, muscle strength normal Health maintenance reviewed with patient: Anxiety Screening Never done Hepatitis B Vaccine(1 of 3 - 19+ 3-dose series) Never done DTaP,Tdap,Td Vaccine(6 - Tdap) due on 07/31/2006 Shingrix Vaccine(1 of 2) Never done Covid-19 Vaccine( - 2023- season) due on 03/09/2024 Mammogram Screening due on 10/08/2024 Pneumococcal Vaccine: 50+(2 of 2 - PCV) due on 05/15/2025 Annual PCP Team Chronic Disease Visit due on 05/23/2025 Diabetes Screening due on 05/23/2027 Lipid Screening due on 05/23/2029 Colorectal Cancer Screening due on 01/12/2033 Alpha-1 Antitrypsin Deficiency Screening Completed Spirometry Completed Influenza Vaccine Completed Hepatitis C Screening Completed HIV Screening Completed Cervical Cancer Screening Discontinued DATA REVIEWED: No new labs ASSESSMENT/PLAN: 1. Acute intractable headache, unspecified headache type - ICD9: 784.0, ICD10: R51.9 (primary diagnosis) No sign of meningitis at this time. Possibly form of migraine versus tension headache with all use of accessory muscles from respiratory illness. - if this does not resolve or returns, would recommend increasing amitriptyline. - SUMATRIPTAN 50 MG TABLET - KETOROLAC 60 MG/2 ML INTRAMUSCULAR SOLUTION No red flag symptoms on exam Go to ER for increased pain, confusion, weakness, numbness, or any other urgent concern Follow up in 2 weeks. 2. Migraine without status migrainosus, not intractable, unspecified migraine type - ICD9: 346.90, ICD10: G43.909 As above - SUMATRIPTAN 50 MG TABLET Prescription instructions reviewed with patient as applicable. Potential red flag symptoms discussed with the patient. Reviewed appropriate action plan to take if red flag symptoms occur. Patient agreeable to treatment plan. Laura Hernandez APRN.KACY documented in this encounterCos[facility] Telephone encounter Note * Telephone Encounter - Selina Malave RN - 08/20/2024 11:11 AM EST Patient reports having headaches daily for the past week. Reports tension headache & migraine medicine gives relief for about 8 hours. Protocol recommends see provider within 3 days. Scheduled appt. Reason for Disposition [1] MILD-MODERATE headache AND [2] present > 3 days (72 hours) AND [3] no improvement after using Care Advice Answer Assessment - Initial Assessment Questions 1. LOCATION: Back of head to sides of head, into mosque area. Patient does not have a headache right now - states she took medication this morning at 6 am for headache. 2. ONSET:Daily for about a week 3. PATTERN: Constant. Taking tension headache and migraine medicine gives relief for 8-9 hours. 4. SEVERITY: Moderate- interferes with normal activities, wakes her up in a sleep. They feel severeat times. 5. RECURRENT SYMPTOM: Has had headaches before- due to muscle tightness in shoulders. These are thesame but a little bit stronger. Has never been told she has migraines. 6. CAUSE: Not sure. Drinks a lot of fluids. 7. MIGRAINE: Never diagnosed with migraines. 8. HEAD INJURY No head injury. 9. OTHER SYMPTOMS:No fever. No stiff neck. Eye pain sometimes but not all the time with it. No sorethroat. No cold symptoms. 10. : No. Hx hysterectomy. Protocols used: [id number] [facility] Miscellaneous Notes* Telephone Encounter - Selina Malave RN - 08/20/2024 11:11 AM EST Patient reports having headaches daily for the past week. Reports tension headache & migraine medicine gives relief for about 8 hours. Protocol recommends see provider within 3 days. Scheduled appt. Reason for Disposition [1] MILD-MODERATE headache AND [2] present > 3 days (72 hours) AND [3] no improvement after using Care Advice Answer Assessment - Initial Assessment Questions 1. LOCATION: Back of head to sides of head, into mosque area. Patient does not have a headache right now - states she took medication this morning at 6 am for headache. 2. ONSET:Daily for about a week 3. PATTERN: Constant. Taking tension headache and migraine medicine gives relief for 8-9 hours. 4. SEVERITY: Moderate- interferes with normal activities, wakes her up in a sleep. They feel severeat times. 5. RECURRENT SYMPTOM: Has had headaches before- due to muscle tightness in shoulders. These are thesame but a little bit stronger. Has never been told she has migraines. 6. CAUSE: Not sure. Drinks a lot of fluids. 7. MIGRAINE: Never diagnosed with migraines. 8. HEAD INJURY No head injury. 9. OTHER SYMPTOMS:No fever. No stiff neck. Eye pain sometimes but not all the time with it. No sorethroat. No cold symptoms. 10. : No. Hx hysterectomy. Protocols used: [id number] documented in this encounterCoshocton [facility]01-25-2025 NoteHNO ID: [id number] Author: WESTON STRICKLAND MD Service: ? Author Type: Physician Type: Progress Notes Filed: 08/02/2024 12:54 Note Text: Patient presents with: Nasal Congestion: bodyaches, vomiting, wheezing, sob, fatigue x 10 days HPI: Feeling sick for 1 1/2 weeks. Positive symptoms: Cough, Shortness of breath, Wheezing, sore chest, Nasal Congestion, Rhinorrhea, Body Aches, Fatigue, migraine Headaches, Nausea and Vomiting from headaches Negative symptoms: Sore throat, Fever, Chills, Diarrhea, OTC: Nyquil, Ibuprofen, inhalers PAST MEDICAL HISTORY Diagnosis Date Anorexia nervosa 06/11/2006 Stable; treated in past Anxiety Asthma 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 02/13/2020 Bulimia nervosa 06/11/2006 Stable, treated in past Cancer (HCC) Chest pain Cholelithiasis 07/24/2023 Chronic obstructive pulmonary disease (COPD) (HCC) Emphysema lung (HCC) GERD (gastroesophageal reflux disease) H. pylori infection cronic Hiatal hernia 02/13/2020 small HISTORY OF CANCER OF UTERUS 06/11/2006 2004, Hysterectomy - complete History of COVID-19 07/10/2023 Internal hemorrhoids Lung disease Migraines Overweight (BMI 25.0-29.9) 07/10/2023 Snoring Tobacco use disorder 06/11/2006 Quit 09/2015. Unspecified asthma(493.90) Childhood diagnosis. MEDICATIONS: Current Outpatient Medications Medication Sig SODIUM CITRATE ORAL Take by mouth. ibuprofen (MOTRIN) 800 mg tablet Take 1 tablet by mouth every 8 hours as needed for pain. promethazine (PHENERGAN) 25 mg tablet Take 1 tablet by mouth every 8 hours as needed (for nausea). ergocalciferol 50,000 unit capsule (VITAMIN D2, DRISDOL) Take 1 tablet by mouth twice weekly [id number], then decrease to 1 tablet weekly. tiZANidine (ZANAFLEX) 4 mg tablet Take 1 tablet by mouth every 8 hours as needed. atorvastatin (LIPITOR) 20 mg tablet Take 1 tablet by mouth once daily. EPINEPHrine (EPIPEN) 0.3 mg/0.3 mL auto-injector Inject intramuscularly. multivit with minerals/lutein (MULTIVITAMIN 50 PLUS ORAL) Take by mouth. amitriptyline (ELAVIL) 100 mg tablet take 1 tablet by mouth once daily at bedtime fluticasone (FLONASE) 50 mcg/actuation nasal spray Use 2 Sprays in each nostril once daily. Rinse mouth after use. diclofenac (VOLTAREN) 1 % topical gel Apply 2 g to affected area twice daily. FASENRA PEN 30 mg/mL auto-injector Dexlansoprazole (DEXILANT) 60 mg CpDM Take 60 mg by mouth once daily. magnesium hydroxide (MILK OF MAGNESIA) 400 mg/5 mL suspension Take 15 mL by mouth once daily as needed for constipation. bisacodyl (DULCOLAX, BISACODYL,) 10 mg supp 1 Suppository by RECTAL route once daily as needed for constipation. famotidine (PEPCID) 40 mg tablet Take 1 tablet by mouth once daily as needed. MUCUS RELIEF ER 600 mg 12 hr tablet Take 1,200 mg by mouth twice daily. montelukast (SINGULAIR) 10 mg tablet Take 1 tablet by mouth daily at bedtime. pgncwxiryso-zjarmiowq-jtzbzgdq (TRELEGY ELLIPTA) 200-62.5-25 mcg inhalation powder Inhale as instructed. albuterol HFA (VENTOLIN HFA) 90 mcg/actuation inhaler Inhale 2 Puffs as instructed every 4 hours as needed for wheezing/shortness of breath. L. acidophilus-L. rhamnosus 15 billion cell cap Take 1 capsule by mouth once daily. FLORAJEN WOMEN. If on antibiotic, take at least 1-2 hours before or after antibiotic. KEEP REFRIGERATED albuterol (PROVENTIL) 2.5 mg /3 mL (0.083 %) nebulizer solution Use 3 mL via nebulizer every 6 hours as needed. COMPACT SPACE CHAMBER as directed. ipratropium-albuterol (DUONEB) 0.5 mg-3 mg(2.5 mg base)/3 mL nebu Inhale 3 mL as instructed every 4 hours as needed. PULSE OXIMETER CONTEC 1 Each as needed. Comp Stocking,Knee,Regular,Med misc 2 Each once daily. loratadine (CLARITIN) 10 mg tablet Take 1 tablet by mouth once daily. varenicline (CHANTIX STARTING MONTH BOX) 0.5 mg (11)- 1 mg (42) tablet Take 0.5 mg by mouth once daily on Days 1 through 3, THEN 0.5 mg twice daily on Days 4 through 7, THEN 1 mg twice daily on Day 8 and thereafter (Patient not taking: Reported on 08/02/2024) IBSRELA 50 mg tablet TAKE 1 TABLET BY MOUTH TWICE A DAY 10 MINUTES BEFORE EATING No current facility-administered medications for this visit. ALLERGIES: ALLERGIES Allergen Reactions Penicillins Anaphylaxis VITALS: BP 120/72 Pulse 90 Temp 36.1 ?C (97 ?F) Resp 16 Wt 58.6 kg (129 lb 3 oz) SpO2 95% BMI 23.33 kg/m? PHYSICAL EXAM: GEN: mildly ill appearing, pleasant, alert HEENT: PERRL, EOMI, conjunctiva clear Ears: moderate cerumen in canals. TMs without erythema, bulge, or effusion Sinuses: non-tender frontal sinus, non-tender maxillary sinuses Throat: moist mucous membranes, no erythema, no exudate Neck: supple, no thyromegaly, no lymphadenopathy HEART: regular rate, regular rhythm, no murmurs LUNGS: musical wheezes and crackles throughout, mild increased WOB ASSESSMENT/PLAN: 1. Asthma with COPD with exacerbation (HCC) - ICD9: 4 (more content not included)...[facility]01-25-2025 History of Present illness Narrative* Weston Strickland MD - 08/02/2024 12:40 PM EST Patient presents with: Nasal Congestion: bodyaches, vomiting, wheezing, sob, fatigue x 10 days HPI: Feeling sick for 1 1/2 weeks. Positive symptoms: Cough, Shortness of breath, Wheezing, sore chest, Nasal Congestion, Rhinorrhea, Body Aches, Fatigue, migraine Headaches, Nausea and Vomiting from headaches Negative symptoms: Sore throat, Fever, Chills, Diarrhea, OTC: Nyquil, Ibuprofen, inhalers PAST MEDICAL HISTORY Diagnosis Date Anorexia nervosa 06/11/2006 Stable; treated in past Anxiety Asthma 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 02/13/2020 Bulimia nervosa 06/11/2006 Stable, treated in past Cancer ([facility]) Chest pain Cholelithiasis 07/24/2023 Chronic obstructive pulmonary disease (COPD) ([facility]) Emphysema lung ([facility]) GERD (gastroesophageal reflux disease) H. pylori infection cronic Hiatal hernia 02/13/2020 small HISTORY OF CANCER OF UTERUS 06/11/2006 2004, Hysterectomy - complete History of COVID-19 07/10/2023 Internal hemorrhoids Lung disease Migraines Overweight (BMI 25.0-29.9) 07/10/2023 Snoring Tobacco use disorder 06/11/2006 Quit 09/2015. Unspecified asthma(493.90) Childhood diagnosis. MEDICATIONS: Current Outpatient Medications Medication Sig SODIUM CITRATE ORAL Take by mouth. ibuprofen (MOTRIN) 800 mg tablet Take 1 tablet by mouth every 8 hours as needed for pain. promethazine (PHENERGAN) 25 mg tablet Take 1 tablet by mouth every 8 hours as needed (for nausea). ergocalciferol 50,000 unit capsule (VITAMIN D2, DRISDOL) Take 1 tablet by mouth twice weekly [id number], then decrease to 1 tablet weekly. tiZANidine (ZANAFLEX) 4 mg tablet Take 1 tablet by mouth every 8 hours as needed. atorvastatin (LIPITOR) 20 mg tablet Take 1 tablet by mouth once daily. EPINEPHrine (EPIPEN) 0.3 mg/0.3 mL auto-injector Inject intramuscularly. multivit with minerals/lutein (MULTIVITAMIN 50 PLUS ORAL) Take by mouth. amitriptyline (ELAVIL) 100 mg tablet take 1 tablet by mouth once daily at bedtime fluticasone (FLONASE) 50 mcg/actuation nasal spray Use 2 Sprays in each nostril once daily. Rinse mouth after use. diclofenac (VOLTAREN) 1 % topical gel Apply 2 g to affected area twice daily. FASENRA PEN 30 mg/mL auto-injector Dexlansoprazole (DEXILANT) 60 mg CpDM Take 60 mg by mouth once daily. magnesium hydroxide (MILK OF MAGNESIA) 400 mg/5 mL suspension Take 15 mL by mouth once daily as needed for constipation. bisacodyl (DULCOLAX, BISACODYL,) 10 mg supp 1 Suppository by RECTAL route once daily as needed for constipation. famotidine (PEPCID) 40 mg tablet Take 1 tablet by mouth once daily as needed. MUCUS RELIEF ER 600 mg 12 hr tablet Take 1,200 mg by mouth twice daily. montelukast (SINGULAIR) 10 mg tablet Take 1 tablet by mouth daily at bedtime. fvpilleooka-smtzkeobt-tmwuvilu (TRELEGY ELLIPTA) 200-62.5-25 mcg inhalation powder Inhale as instructed. albuterol HFA (VENTOLIN HFA) 90 mcg/actuation inhaler Inhale 2 Puffs as instructed every 4 hours asneeded for wheezing/shortness of breath. L. acidophilus-L. rhamnosus 15 billion cell cap Take 1 capsule by mouth once daily. FLORAJEN WOMEN.If on antibiotic, take at least 1-2 hours before or after antibiotic. KEEP REFRIGERATED albuterol (PROVENTIL) 2.5 mg /3 mL (0.083 %) nebulizer solution Use 3 mL via nebulizer every 6 hours as needed. COMPACT SPACE CHAMBER as directed. ipratropium-albuterol (DUONEB) 0.5 mg-3 mg(2.5 mg base)/3 mL nebu Inhale 3 mL as instructed every 4hours as needed. PULSE OXIMETER CONTEC 1 Each as needed. Comp Stocking,Knee,Regular,Med misc 2 Each once daily. loratadine (CLARITIN) 10 mg tablet Take 1 tablet by mouth once daily. varenicline (CHANTIX STARTING MONTH BOX) 0.5 mg (11)- 1 mg (42) tablet Take 0.5 mg by mouth once daily on Days 1 through 3, THEN 0.5 mg twice daily on Days 4 through 7, THEN 1 mg twice daily on Day 8and thereafter (Patient not taking: Reported on 08/02/2024) IBSRELA 50 mg tablet TAKE 1 TABLET BY MOUTH TWICE A DAY 10 MINUTES BEFORE EATING No current facility-administered medications for this visit. ALLERGIES: ALLERGIES Allergen Reactions Penicillins Anaphylaxis VITALS: BP 120/72 Pulse 90 Temp 36.1 C (97 F) Resp 16 Wt 58.6 kg (129 lb 3 oz) SpO2 95% BMI 23.33 kg/m PHYSICAL EXAM: GEN: mildly ill appearing, pleasant, alert HEENT: PERRL, EOMI, conjunctiva clear Ears: moderate cerumen in canals. TMs without erythema, bulge, or effusion Sinuses: non-tender frontal sinus, non-tender maxillary sinuses Throat: moist mucous membranes, no erythema, no exudate Neck: supple, no thyromegaly, no lymphadenopathy HEART: regular rate, regular rhythm, no murmurs LUNGS: musical wheezes and crackles throughout, mild increased WOB ASSESSMENT/PLAN: 1. Asthma with COPD with exacerbation (HCC) - ICD9: 493.22, ICD10: J44.1 Viral URI triggering chronic lung disease. - PREDNISONE 10 MG TABLET taper - DOXYCYCLINE HYCLATE 100 MG CAPSULE Follow up in the ER this weekend with worsening cough, worsening shortness of breath, increasing chest pain, or late onset fever. Weston Strickland MD documented in this encounterCos[facility]01-[facility]25 Telephone encounter Note * Telephone Encounter - Kierra Gomez OCCA - 07/31/2024 10:31 AM EST Prescription Refill Information The patient has been identified by name and date of : Yes Caregiver verified no other encounters exist for this prescription request: Yes Caregiver confirmed with patient/requestor that no other refills are due, in the near future, with this provider at this time: Yes The last office visit in the department: 05/23/2024 Does the patient have a future office visit with this provider/department: Yes, 11/20/2024 Requested Prescriptions Pending Prescriptions Disp Refills ibuprofen (MOTRIN) 800 mg tablet 60 tablet 1 Sig: Take 1 tablet by mouth every 8 hours as needed for pain. DAVID Cosme July 31, 2024 10:32 AM [facility]01-23-2025 Miscellaneous Notes* Telephone Encounter - Kierra Gomez OCCA - 07/31/2024 10:31 AM EST Prescription Refill Information The patient has been identified by name and date of : Yes Caregiver verified no other encounters exist for this prescription request: Yes Caregiver confirmed with patient/requestor that no other refills are due, in the near future, with this provider at this time: Yes The last office visit in the department: 05/23/2024 Does the patient have a future office visit with this provider/department: Yes, 11/20/2024 Requested Prescriptions Pending Prescriptions Disp Refills ibuprofen (MOTRIN) 800 mg tablet 60 tablet 1 Sig: Take 1 tablet by mouth every 8 hours as needed for pain. DAVID Cosme July 31, 2024 10:32 AM documented in this encounterCosho[facility]11-29-2024 Telephone encounter Note * Telephone Encounter - Hermila Roldan LPN - 06/06/2024 12:29 PM EST Prescription Refill Information The patient has been identified by name and date of : Yes Caregiver verified no other encounters exist for this prescription request: Yes Caregiver confirmed with patient/requestor that no other refills are due, in the near future, with this provider at this time: Yes The last office visit in the department: 05/23/24 Does the patient have a future office visit with this provider/department: Yes 11/20/24 Requested Prescriptions Pending Prescriptions Disp Refills promethazine (PHENERGAN) 25 mg tablet 30 tablet 1 Sig: Take 1 tablet by mouth every 8 hours as needed (for nausea). Hermila Roldan LPN June 06, 2024 12:30 PM [facility]11-29-2024 Miscellaneous Notes* Telephone Encounter - Hermila Roldan LPN - 06/06/2024 12:29 PM EST Prescription Refill Information The patient has been identified by name and date of : Yes Caregiver verified no other encounters exist for this prescription request: Yes Caregiver confirmed with patient/requestor that no other refills are due, in the near future, with this provider at this time: Yes The last office visit in the department: 05/23/24 Does the patient have a future office visit with this provider/department: Yes 11/20/24 Requested Prescriptions Pending Prescriptions Disp Refills promethazine (PHENERGAN) 25 mg tablet 30 tablet 1 Sig: Take 1 tablet by mouth every 8 hours as needed (for nausea). Hermila Roldan LPN June 06, 2024 12:30 PM documented in this encounterCoshocton [facility]11-18-2024 Telephone encounter Note * Telephone Encounter - Abbey Baker RN - 05/26/2024 10:49 AM EST Pt called and is notified of providers message and instructions. Pt voices understanding. Abbey Baker RN [facility]11-18-2024 Miscellaneous Notes* Telephone Encounter - Abbye Baker RN - 05/26/2024 10:49 AM EST Pt called and is notified of providers message and instructions. Pt voices understanding. Abbey Baker RN * Telephone Encounter - Laura Hernandez APRN.CNP - 05/26/2024 9:13 AM EST Prescription vit d supplement started. 1 tablet twice weekly for 4 weeks then once weekly. I want to improve your vit d prior to starting reclast. Thank you Laura Hernandez APRN.CNP * Telephone Encounter - Latasha Salamanca MA - 05/26/2024 9:02 AM EST Patient notified and states not taking Vit D supplement. * Telephone Encounter - Laura Hernandez APRN.CNP - 05/26/2024 8:38 AM EST Vit D is low. Is she taking a vit d supplement. Thank you Laura Hernandez APRN.CNP documented in this [facility] Telephone encounter Note * Telephone Encounter - Laura Hernandez APRN.CNP - 05/26/2024 9:13 AM EST Prescription vit d supplement started. 1 tablet twice weekly for 4 weeks then once weekly. I want to improve your vit d prior to starting reclast. Thank you Laura Hernandez APRN.CNP [facility]11-18-2024 Telephone encounter Note* Telephone Encounter - Latasha Salamanca MA - 05/26/2024 9:02 AM EST Patient notified and states not taking Vit D supplement. [facility]11-18-[facility] Telephone encounter Note* Telephone Encounter - Laura Hernandez APRN.CNP - 05/26/2024 8:38 AM EST Vit D is low. Is she taking a vit d supplement. Thank you Laura Hernandez APRN.CNP [facility]11-15-2024 Instructions* Patient Instructions* Laura Hernandez APRN.CNP - 05/23/2024 7:38 AM EST Please take over the counter Vit d 3 2000 IU daily and get 5494-6463 mg per day calcium. Calcium isbest absorbed from your diet. Green vegetables and low fat dairy are good dietary sources of calcium. Walking, weight bearing exercise, resistance training , limiting alcohol and not smoking are alsogood ways to help maintain your bone mass. We will repeat the bone density in two years. If you add a calcium supplement you will not absorb more than 600 mg at a time so split the dosing . Yogurt, plain, low fat, 8 ounces 415 mg per serving [place] juice, calcium-fortified, 6 ounces 375 mg per serving Yogurt, fruit, low fat, 8 ounces 338-384 mg per serving Mozzarella, part skim, 1.5 ounces 333 mg per serving Sardines, canned in oil, with bones, 3 ounces 325 mg per serving Cheddar cheese, 1.5 ounces 307 mg per serving Milk, nonfat, 8 ounces 299 mg per serving Milk, reduced-fat (2% milk fat), 8 ounces 293 mg per serving Milk, buttermilk, 8 ounces 282-350 mg per serving Milk, whole (3.25% milk fat), 8 ounces 276 mg per serving Tofu, firm, made with calcium sulfate, cup 253 mg per serving [place], pink, canned, solids with bone, 3 ounces 181 mg per serving Cottage cheese, 1% milk fat, 1 cup 138 mg per serving Instant breakfast drink, various flavors and brands, powder prepared with water, 8 ounces 105-250 mg per serving Frozen yogurt, vanilla, soft serve, cup 103 mg per serving Xownm-ym-iww cereal, calcium-fortified, 1 cup 100-1,000 mg per serving Turnip greens, fresh, boiled, cup 99 mg per serving Kale, fresh, cooked, 1 cup 94 mg per serving Kale, raw, chopped, 1 cup 90 mg per serving Tofu, soft, made with calcium sulfate, cup 138 mg per serving Ice cream, vanilla, cup 84 mg per serving Soy beverage, calcium-fortified, 8 ounces 80-500 mg per serving Italian cabbage, bok bazzi, raw, shredded, 1 cup 74 mg per serving Bread, white, 1 slice 73 mg per serving Pudding, chocolate, ready to eat, refrigerated, 4 ounces 55 mg per serving Tortilla, corn, luuhz-ow-jdya/bernal, one 6 diameter 46 mg per serving Tortilla, flour, qjxmn-hj-xylk/bernal, one 6 diameter 32 mg per serving Sour cream, reduced fat, cultured, 2 tablespoons 31 mg per serving Bread, whole-wheat, 1 slice 30 mg per serving Broccoli, raw, cup 21 mg per serving Cheese, cream, regular, 1 tablespoon 14 mg per serving documented in this [facility]24 NoteHNO ID: [id number] Author: LAURA HERNANDEZ APRN.KACY Service: ? Author Type: Nurse Practitioner Type: Progress Notes Filed: 05/23/2024 07:52 Note Text: detention: Patient presents with: Recheck: 3 month follow up HPI Jane Steinberg is a 53 year old female who presents today for follow up but with concerns. Recent Bone density showing osteopenia with high fracture risk: This study was done by her GI specialist due to her chronic gastrointestinal issues with duggan's esophagus requiring multiple kinds of PPI treatment. Last dental exam was 6 months ago. Muscle tenseness to to bilateral shoulders into neck for the past few weeks. Has tried icy hot which helps for 10 minutes or so and returns. These are resulting in tension headaches. Denies injury, weakness, numbness, vision changes, confusion, edema, redness, fever, chills, or dizziness. Also no further syncope since being on sodium. REVIEW OF SYSTEMS See HPI PAST MEDICAL HISTORY Diagnosis Date Anorexia nervosa 06/11/2006 Stable; treated in past Anxiety Asthma 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 02/13/2020 Bulimia nervosa 06/11/2006 Stable, treated in past Cancer (HCC) Chest pain Cholelithiasis 07/24/2023 Chronic obstructive pulmonary disease (COPD) (HCC) Emphysema lung (HCC) GERD (gastroesophageal reflux disease) H. pylori infection cronic Hiatal hernia 02/13/2020 small HISTORY OF CANCER OF UTERUS 06/11/2006 2004, Hysterectomy - complete History of COVID-19 07/10/2023 Internal hemorrhoids Lung disease Migraines Overweight (BMI 25.0-29.9) 07/10/2023 Snoring Tobacco use disorder 06/11/2006 Quit 09/2015. Unspecified asthma(493.90) Childhood diagnosis. PAST SURGICAL HISTORY Procedure Laterality Date APPENDECTOMY 1998 COLONOSCOPY 01/12/2023 no specimens, next colonoscopy 2029 EGD WITH BIOPSY(S) 03/13/2017 Dr. Shook EGD WITH BIOPSY(S) 02/13/2020 small hiatal hernia; Duggan's without dysplasia; Dr. Montoya EGD WITH BIOPSY(S) 10/06/2021 H. pylori +; Duggan's without dysplasia; Dr. Riggs EGD WITH BIOPSY(S) 09/12/2022 neg for H. pylori; Dr. Riggs LAPS SURG CHOLECYSTECTOMY W/CHOLANGIOGRAPHY 07/24/2023 PAST SURGICAL HISTORY OF 2003 Lymph Node Bx 1999 TOTAL ABDOMINAL HYSTERECT W/WO RMVL TUBE OVARY 2004 and BSO - pelvic pain/benign ALLERGIES Penicillins MEDICATIONS atorvastatin (LIPITOR) 20 mg tablet Take 1 tablet by mouth once daily. varenicline (CHANTIX STARTING MONTH BOX) 0.5 mg (11)- 1 mg (42) tablet Take 0.5 mg by mouth once daily on Days 1 through 3, THEN 0.5 mg twice daily on Days 4 through 7, THEN 1 mg twice daily on Day 8 and thereafter EPINEPHrine (EPIPEN) 0.3 mg/0.3 mL auto-injector Inject intramuscularly. multivit with minerals/lutein (MULTIVITAMIN 50 PLUS ORAL) Take by mouth. amitriptyline (ELAVIL) 100 mg tablet take 1 tablet by mouth once daily at bedtime IBSRELA 50 mg tablet TAKE 1 TABLET BY MOUTH TWICE A DAY 10 MINUTES BEFORE EATING promethazine (PHENERGAN) 25 mg tablet Take 1 tablet by mouth every 8 hours as needed (for nausea). fluticasone (FLONASE) 50 mcg/actuation nasal spray Use 2 Sprays in each nostril once daily. Rinse mouth after use. ibuprofen (MOTRIN) 800 mg tablet Take 1 tablet by mouth every 8 hours as needed for pain. diclofenac (VOLTAREN) 1 % topical gel Apply 2 g to affected area twice daily. FASENRA PEN 30 mg/mL auto-injector Dexlansoprazole (DEXILANT) 60 mg CpDM Take 60 mg by mouth once daily. magnesium hydroxide (MILK OF MAGNESIA) 400 mg/5 mL suspension Take 15 mL by mouth once daily as needed for constipation. bisacodyl (DULCOLAX, BISACODYL,) 10 mg supp 1 Suppository by RECTAL route once daily as needed for constipation. famotidine (PEPCID) 40 mg tablet Take 1 tablet by mouth once daily as needed. MUCUS RELIEF ER 600 mg 12 hr tablet Take 1,200 mg by mouth twice daily. montelukast (SINGULAIR) 10 mg tablet Take 1 tablet by mouth daily at bedtime. pkqtlvdqbxe-sqguudokk-vjqrchop (TRELEGY ELLIPTA) 200-62.5-25 mcg inhalation powder Inhale as instructed. albuterol HFA (VENTOLIN HFA) 90 mcg/actuation inhaler Inhale 2 Puffs as instructed every 4 hours as needed for wheezing/shortness of breath. L. acidophilus-L. rhamnosus 15 billion cell cap Take 1 capsule by mouth once daily. FLORAJEN WOMEN. If on antibiotic, take at least 1-2 hours before or after antibiotic. KEEP REFRIGERATED ergocalciferol 50,000 unit capsule (VITAMIN D2, DRISDOL) Take 1 capsule by mouth one time a week. albuterol (PROVENTIL) 2.5 mg /3 mL (0.083 %) nebulizer solution Use 3 mL via nebulizer every 6 hours as needed. COMPACT SPACE CHAMBER as directed. ipratropium-albuterol (DUONEB) 0.5 mg-3 mg(2.5 mg base)/3 mL nebu Inhale 3 mL as instructed every 4 hours as needed. PULSE OXIMETER CONTEC 1 Each as needed. Comp Stocking,Knee,Regular,Med misc 2 Each once daily. loratadine (CLARITIN) 10 mg tablet Take 1 tablet by mouth once daily. FAMILY HISTORY Problem (more content not included)...[facility]11-15-2024 History of Present illness Narrative* BelenLauraEVELYN.DUMPER - 05/23/2024 7:25 AM EST detention: Patient presents with: Recheck: 3 month follow up HPI Jane Steinberg is a 53 year old female who presents today for follow up but with concerns. Recent Bone density showing osteopenia with high fracture risk: This study was done by her GI specialist due to her chronic gastrointestinal issues with duggan's esophagus requiring multiple kinds of PPI treatment. Last dental exam was 6 months ago. Muscle tenseness to to bilateral shoulders into neck for the past few weeks. Has tried icy hot which helps for 10 minutes or so and returns. These are resulting in tension headaches. Denies injury, weakness, numbness, vision changes, confusion, edema, redness, fever, chills, or dizziness. Also no further syncope since being on sodium. REVIEW OF SYSTEMS See HPI PAST MEDICAL HISTORY Diagnosis Date Anorexia nervosa 06/11/2006 Stable; treated in past Anxiety Asthma 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 02/13/2020 Bulimia nervosa 06/11/2006 Stable, treated in past Cancer (HCC) Chest pain Cholelithiasis 07/24/2023 Chronic obstructive pulmonary disease (COPD) (HCC) Emphysema lung (HCC) GERD (gastroesophageal reflux disease) H. pylori infection cronic Hiatal hernia 02/13/2020 small HISTORY OF CANCER OF UTERUS 06/11/2006 2004, Hysterectomy - complete History of COVID-19 07/10/2023 Internal hemorrhoids Lung disease Migraines Overweight (BMI 25.0-29.9) 07/10/2023 Snoring Tobacco use disorder 06/11/2006 Quit 09/2015. Unspecified asthma(493.90) Childhood diagnosis. PAST SURGICAL HISTORY Procedure Laterality Date APPENDECTOMY 1998 COLONOSCOPY 01/12/2023 no specimens, next colonoscopy 2029 EGD WITH BIOPSY(S) 03/13/2017 Dr. Shook EGD WITH BIOPSY(S) 02/13/2020 small hiatal hernia; Duggan's without dysplasia; Dr. Montoya EGD WITH BIOPSY(S) 10/06/2021 H. pylori +; Duggan's without dysplasia; Dr. Riggs EGD WITH BIOPSY(S) 09/12/2022 neg for H. pylori; Dr. Riggs LAPS SURG CHOLECYSTECTOMY W/CHOLANGIOGRAPHY 07/24/2023 PAST SURGICAL HISTORY OF 2004 Lymph Node Bx 1999 TOTAL ABDOMINAL HYSTERECT W/WO RMVL TUBE OVARY 2004 and BSO - pelvic pain/benign ALLERGIES Penicillins MEDICATIONS atorvastatin (LIPITOR) 20 mg tablet Take 1 tablet by mouth once daily. varenicline (CHANTIX STARTING MONTH ) 0.5 mg (11)- 1 mg (42) tablet Take 0.5 mg by mouth once daily on Days 1 through 3, THEN 0.5 mg twice daily on Days 4 through 7, THEN 1 mg twice daily on Day 8and thereafter EPINEPHrine (EPIPEN) 0.3 mg/0.3 mL auto-injector Inject intramuscularly. multivit with minerals/lutein (MULTIVITAMIN 50 PLUS ORAL) Take by mouth. amitriptyline (ELAVIL) 100 mg tablet take 1 tablet by mouth once daily at bedtime IBSRELA 50 mg tablet TAKE 1 TABLET BY MOUTH TWICE A DAY 10 MINUTES BEFORE EATING promethazine (PHENERGAN) 25 mg tablet Take 1 tablet by mouth every 8 hours as needed (for nausea). fluticasone (FLONASE) 50 mcg/actuation nasal spray Use 2 Sprays in each nostril once daily. Rinse mouth after use. ibuprofen (MOTRIN) 800 mg tablet Take 1 tablet by mouth every 8 hours as needed for pain. diclofenac (VOLTAREN) 1 % topical gel Apply 2 g to affected area twice daily. FASENRA PEN 30 mg/mL auto-injector Dexlansoprazole (DEXILANT) 60 mg CpDM Take 60 mg by mouth once daily. magnesium hydroxide (MILK OF MAGNESIA) 400 mg/5 mL suspension Take 15 mL by mouth once daily as needed for constipation. bisacodyl (DULCOLAX, BISACODYL,) 10 mg supp 1 Suppository by RECTAL route once daily as needed for constipation. famotidine (PEPCID) 40 mg tablet Take 1 tablet by mouth once daily as needed. MUCUS RELIEF ER 600 mg 12 hr tablet Take 1,200 mg by mouth twice daily. montelukast (SINGULAIR) 10 mg tablet Take 1 tablet by mouth daily at bedtime. cxwctbdnmie-wrjqxrdfh-ceiypqco (TRELEGY ELLIPTA) 200-62.5-25 mcg inhalation powder Inhale as instructed. albuterol HFA (VENTOLIN HFA) 90 mcg/actuation inhaler Inhale 2 Puffs as instructed every 4 hours asneeded for wheezing/shortness of breath. L. acidophilus-L. rhamnosus 15 billion cell cap Take 1 capsule by mouth once daily. FLORAJEN WOMEN.If on antibiotic, take at least 1-2 hours before or after antibiotic. KEEP REFRIGERATED ergocalciferol 50,000 unit capsule (VITAMIN D2, DRISDOL) Take 1 capsule by mouth one time a week. albuterol (PROVENTIL) 2.5 mg /3 mL (0.083 %) nebulizer solution Use 3 mL via nebulizer every 6 hours as needed. COMPACT SPACE CHAMBER as directed. ipratropium-albuterol (DUONEB) 0.5 mg-3 mg(2.5 mg base)/3 mL nebu Inhale 3 mL as instructed every 4hours as needed. PULSE OXIMETER CONTEC 1 Each as needed. Comp Stocking,Knee,Regular,Med misc 2 Each once daily. loratadine (CLARITIN) 10 mg tablet Take 1 tablet by mouth once daily. FAMILY HISTORY Problem Relation Age of Onset Hypertension Mother Heart Mother Eczema Mother other (AAA) Mother other (Fibromyalgia) Mother Alcohol/Drug Father Alcohol Cancer Father lung Colon Cancer Father Hypertension Sister Asthma Sister other (Migraines) Sister other (Gout) Sister other (Fibromyalgia) Sister Cancer Sister 32 Ovarian cancer Sister 32 Breast Cancer Maternal Aunt 2 maternal aunts. other (MICRO PHOTOGRAPHER cancer) No Family History Anesthesia Problems No Family History Blood Clots No Family History Social History Tobacco Use Smoking status: Every Day Current packs/day: 0.00 Average packs/day: 0.3 packs/day for 35.0 years (8.8 ttl pk-yrs) Types: Cigarettes Start date: 11/17/1986 Last attempt to quit: 11/23/2021 Years since quittin.4 Smokeless tobacco: Never Vaping Use Vaping status: Never Used Substance Use Topics Alcohol use: Not Currently Comment: Rarely Drug use: No PHYSICAL EXAM BP 122/72 Pulse 72 Resp 16 Wt 55.3 kg (122 lb) SpO2 96% BMI 22.03 kg/m General Appearance: well appearing, in no acute distress, alert Pysch: mood and affect broad and appropriate Eyes: conjunctiva pink and moist, no icterus, sclera white, non-injected Neck: Thyroid normal size and symmetric without palpable nodules, Neck supple, No adenopathy multiple tightness to muscles with small amount of tenderness. No spinal tenderness and full ROM. Lymph nodes: No cervical lymphadenopathy and No supraclavicular lymphadenopathy Lungs: Lungs clear to auscultation. No wheezing, rhonchi, rales. Heart: RRR without murmur, gallop, or rubs. No ectopy Health maintenance reviewed with patient: Anxiety Screening Never done Hepatitis B Vaccine(1 of 3 - 19+ 3-dose series) Never done DTaP,Tdap,Td Vaccine(6 - Tdap) due on 07/31/2006 Shingrix Vaccine(1 of 2) Never done Covid-19 Vaccine(6 - 2023- season) due on 03/09/2024 Mammogram Screening due on 10/08/2024 Annual PCP Team Chronic Disease Visit due on 03/31/2025 Pneumococcal Vaccine(2 of 2 - PCV) due on 05/15/2025 Diabetes Screening due on 01/15/2027 Lipid Screening due on 11/15/2027 Colorectal Cancer Screening due on 01/12/2033 Alpha-1 Antitrypsin Deficiency Screening Completed Spirometry Completed Influenza Vaccine Completed Hepatitis C Screening Completed HIV Screening Completed Cervical Cancer Screening Discontinued DATA REVIEWED: Most recent imaging ASSESSMENT/PLAN: 1. Osteopenia, unspecified location - ICD9: 733.90, ICD10: M85.80 (primary diagnosis) - with her chronic gastritis, barrets esophagus, and resistant to basic treatment GERD, will start treatment with reclast. Patient to have dental evaluation prior to me ordering this infusion and having it scheduled. - Reviewed the need for Calcium and Vitamin D supplements and weight bearing exercise as tolerated - BASIC METABOLIC PANEL - VITAMIN D 25 HYDROXY - MAGNESIUM - PHOSPHORUS INORGANIC 2. Cervicalgia - ICD9: 723.1, ICD10: M54.2 No concerns on exam Will start with muscle relaxer and stretching exercises. If no improvement will consider PT for dryneedling. - TIZANIDINE 4 MG TABLET 3. Muscle tightness - ICD9: 728.9, ICD10: M62.89 As above - TIZANIDINE 4 MG TABLET 4. Medication management - ICD9: V58.69, ICD10: Z79.899 See #1 - MAGNESIUM - PHOSPHORUS INORGANIC Prescription instructions reviewed with patient as applicable. Potential red flag symptoms discussed with the patient. Reviewed appropriate action plan to take if red flag symptoms occur. Patient agreeable to treatment plan. Laura Hernandez APRN.CNP [facility] Telephone encounter Note * Telephone Encounter - Abbey Baker RN - 05/01/2024 4:15 PM EDT Pt called and is notified of providers message and instructions. Pt voices understanding. She states she knows he did biopsies when he did the EGD, but she doesn't know if it was for the H. Pylori. She said she will call his office and ask and see if she can get in there, and if not she will call to get I over here. Abbey Baker RN [facility]10-[facility] Miscellaneous Notes* Telephone Encounter - Abbey Baker RN - 05/01/2024 4:15 PM EDT Pt called and is notified of providers message and instructions. Pt voices understanding. She states she knows he did biopsies when he did the EGD, but she doesn't know if it was for the H. Pylori. She said she will call his office and ask and see if she can get in there, and if not she will call to get I over here. Abbey Baker RN * Telephone Encounter - Latasha Salamanca MA - 05/01/2024 3:02 PM EDT Tried calling patient, line kept ringing busy. * Telephone Encounter - Laura Hernandez APRN.CNP - 05/01/2024 1:35 PM EDT She will need seen for this. She should also update her GI specialist as he recently did an EGD on her and may have biopsied for Hpylori. Also he will be where I send her if there is any concerns. Thank you Laura Hernandez APRN.KACY * Telephone Encounter - Abbey Baker RN - 05/01/2024 1:14 PM EDT Pt called in and reports she had blood in her stool x1 today. She denies any blood in the water or filling the toilet. Pt sates the stool was soft but formed. She reports she has had blood in her stool before, and she is worried it is her H. pylori. She is asking if provider would want to send in astool kit for her. She reports Laura Hernandez POT ANNEALER has before. Pt does see Dr Alfonso, but she states that she sees him for her acid reflux. I asked if he had done a colonoscopy on her and she denied this. Ilet her know I would have provider get back to her if she wanted her to do stool kit or see Dr Hamilton. Please call and advise. Pt. documented in this [facility]10-[facility] Telephone encounter Note * Telephone Encounter - Sheryl Ruggiero RN - 05/01/2024 3:21 PM EDT Patient's chart is marked for yearly cervical cancer screening. Does she need this on a yearly basis? Has Medicare insurance. Sheryl Ruggiero RN [facility]10-[facility] Miscellaneous Notes* Telephone Encounter - Sheryl Ruggiero RN - 05/01/2024 3:21 PM EDT Patient's chart is marked for yearly cervical cancer screening. Does she need this on a yearly basis? Has Medicare insurance. Sheryl Ruggiero, RN documented in this [facility]10[facility] Telephone encounter Note * Telephone Encounter - Latasha Salamanca MA - 05/01/2024 3:02 PM EDT Tried calling patient, line kept ringing busy. [facility] Telephone encounter Note* Telephone Encounter - Laura Hernandez APRN.KACY - 05/01/2024 1:35 PM EDT She will need seen for this. She should also update her GI specialist as he recently did an EGD on her and may have biopsied for Hpylori. Also he will be where I send her if there is any concerns. Thank you Laura Hernandez APRN.KACY [facility]10-[facility] Telephone encounter Note* Telephone Encounter - Abbey Baker RN - 05/01/2024 1:14 PM EDT Pt called in and reports she had blood in her stool x1 today. She denies any blood in the water or filling the toilet. Pt sates the stool was soft but formed. She reports she has had blood in her stool before, and she is worried it is her H. pylori. She is asking if provider would want to send in astool kit for her. She reports Laura Hernandez POT ANNEALER has before. Pt does see Dr Friend, but she states that she sees him for her acid reflux. I asked if he had done a colonoscopy on her and she denied this. Ilet her know I would have provider get back to her if she wanted her to do stool kit or see Dr Friend. Please call and advise. Pt. [facility]09[facility] History of Present illness Narrative* Mcikey López MD - 04/07/2024 9:40 AM EDT Images from the original note were not included. [facility] SE[facility] OF REGIONAL CARDIOLOGY OUTPATIENT VISIT DATE 04/07/2024 OUTPATIENT VISIT TYPE NEW PRIMARY CARE PHYSICIAN: Amanda Wallace [address] [place] [address] HISTORY OF PRESENT ILLNESS: Ms. Steinberg is a 53 year old female, hx of anorexia nervosa, ISAAC, anxiety, bulimia nervosa, smoker, Duggan's, emphysema, GERD, hiatal hernia, COVID, asthma presents for syncope management. She reported a syncopal episode a few weeks ago after getting up and walking across the [place]. Preceded by lightheadedness. Denied chest pain, SOB, palpitations prior to episode. Reported feeling fatigued after the episode. She denies chest pain, SOB, palpitations, orthopnea, PND, leg swelling. She drinks 3x 16 oz of water daily. Underwent cardiac testing, results of which are summarized below. She states that she is able to engage in walking exercises. TTT 02/26/24: vasodepressor response- orthostatic drop in BP with lowest SBP 54 Carotid artery duplex 02/20/24: MIKE 20-39%, LICA 0-19%. Zio 01/15-01/25 ; HR of 50 bpm, max HR of 136 bpm, and avg HR of 90 bpm. Predominant underlying rhythm was Sinus Rhythm. Isolated SVEs were rare (<1.0%), SVE Couplets were rare (<1.0%), and no SVE Triplets were present. Isolated VEs were rare (<1.0%), and no VE Couplets or VE Triplets were present. TTE 11/05/23: EF 61%, 0.9/0.9, 1-2+ MR, trace DC, asc Ao 2.7 cm. PAST MEDICAL HISTORY Diagnosis Date Anorexia nervosa 06/11/2006 Stable; treated in past Anxiety Asthma 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 02/13/2020 Bulimia nervosa 06/11/2006 Stable, treated in past Cancer (HCC) Chest pain Cholelithiasis 07/24/2023 Chronic obstructive pulmonary disease (COPD) (HCC) Emphysema lung (HCC) GERD (gastroesophageal reflux disease) H. pylori infection cronic Hiatal hernia 02/13/2020 small HISTORY OF CANCER OF UTERUS 06/11/20062003, Hysterectomy - complete History of COVID-19 07/10/2023 Internal hemorrhoids Lung disease Migraines Overweight (BMI 25.0-29.9) 07/10/2023 Snoring Tobacco use disorder 06/11/2006 Quit 09/2015. Unspecified asthma(493.90) Childhood diagnosis. PAST SURGICAL HISTORY Procedure Laterality Date APPENDECTOMY 1998 COLONOSCOPY 01/12/2023 no specimens, next colonoscopy 2029 EGD WITH BIOPSY(S) 03/13/2017 Dr. Shook EGD WITH BIOPSY(S) 02/13/2020 small hiatal hernia; Duggan's without dysplasia; Dr. Montoya EGD WITH BIOPSY(S) 10/06/2021 H. pylori +; Duggan's without dysplasia; Dr. Riggs EGD WITH BIOPSY(S) 09/12/2022 neg for H. pylori; Dr. Riggs LAPChava SURG CHOLECYSTECTOMY W/CHOLANGIOGRAPHY 07/24/2023 PAST SURGICAL HISTORY OF 2003 Lymph Node Bx 1999 TOTAL ABDOMINAL HYSTERECT W/WO RMVL TUBE OVARY 2004 and BSO - pelvic pain/benign Social History Tobacco Use Smoking status: Every Day Current packs/day: 0.00 Average packs/day: 0.3 packs/day for 35.0 years (8.8 ttl pk-yrs) Types: Cigarettes Start date: 11/17/1986 Last attempt to quit: 11/23/2021 Years since quittin.3 Smokeless tobacco: Never Vaping Use Vaping status: Never Used Substance Use Topics Alcohol use: Not Currently Comment: Rarely Drug use: No FAMILY HISTORY Problem Relation Age of Onset Hypertension Mother Heart Mother Eczema Mother other (AAA) Mother other (Fibromyalgia) Mother Alcohol/Drug Father Alcohol Cancer Father lung Colon Cancer Father Hypertension Sister Asthma Sister other (Migraines) Sister other (Gout) Sister other (Fibromyalgia) Sister Cancer Sister 32 Ovarian cancer Sister 32 Breast Cancer Maternal Aunt 2 maternal aunts. other (MICRO PHOTOGRAPHER cancer) No Family History Anesthesia Problems No Family History Blood Clots No Family History ALLERGIES Allergen Reactions Penicillins Anaphylaxis CURRENT MEDICATIONS: varenicline (CHANTIX STARTING MONTH BOX) 0.5 mg (11)- 1 mg (42) tablet Take 0.5 mg by mouth once daily on Days 1 through 3, THEN 0.5 mg twice daily on Days 4 through 7, THEN 1 mg twice daily on Day 8and thereafter levoFLOXacin (LEVAQUIN) 750 mg tablet Take 1 tablet by mouth once daily for 7 days. predniSONE (DELTASONE) 10 mg tablet Take 4 tabs daily for 3 days, then 2 tabs daily for 3 days, then 1 tab daily for 3 days with food. EPINEPHrine (EPIPEN) 0.3 mg/0.3 mL auto-injector Inject intramuscularly. multivit with minerals/lutein (MULTIVITAMIN 50 PLUS ORAL) Take by mouth. amitriptyline (ELAVIL) 100 mg tablet take 1 tablet by mouth once daily at bedtime IBSRELA 50 mg tablet TAKE 1 TABLET BY MOUTH TWICE A DAY 10 MINUTES BEFORE EATING promethazine (PHENERGAN) 25 mg tablet Take 1 tablet by mouth every 8 hours as needed (for nausea). fluticasone (FLONASE) 50 mcg/actuation nasal spray Use 2 Sprays in each nostril once daily. Rinse mouth after use. ibuprofen (MOTRIN) 800 mg tablet Take 1 tablet by mouth every 8 hours as needed for pain. diclofenac (VOLTAREN) 1 % topical gel Apply 2 g to affected area twice daily. FASENRA PEN 30 mg/mL auto-injector Dexlansoprazole (DEXILANT) 60 mg CpDM Take 60 mg by mouth once daily. magnesium hydroxide (MILK OF MAGNESIA) 400 mg/5 mL suspension Take 15 mL by mouth once daily as needed for constipation. bisacodyl (DULCOLAX, BISACODYL,) 10 mg supp 1 Suppository by RECTAL route once daily as needed for constipation. famotidine (PEPCID) 40 mg tablet Take 1 tablet by mouth once daily as needed. MUCUS RELIEF ER 600 mg 12 hr tablet Take 1,200 mg by mouth twice daily. montelukast (SINGULAIR) 10 mg tablet Take 1 tablet by mouth daily at bedtime. asximtfpalf-sxpwpuyga-aceamovt (TRELEGY ELLIPTA) 200-62.5-25 mcg inhalation powder Inhale as instructed. albuterol HFA (VENTOLIN HFA) 90 mcg/actuation inhaler Inhale 2 Puffs as instructed every 4 hours asneeded for wheezing/shortness of breath. L. acidophilus-L. rhamnosus 15 billion cell cap Take 1 capsule by mouth once daily. FLORAJEN WOMEN.If on antibiotic, take at least 1-2 hours before or after antibiotic. KEEP REFRIGERATED ergocalciferol 50,000 unit capsule (VITAMIN D2, DRISDOL) Take 1 capsule by mouth one time a week. albuterol (PROVENTIL) 2.5 mg /3 mL (0.083 %) nebulizer solution Use 3 mL via nebulizer every 6 hours as needed. COMPACT SPACE CHAMBER as directed. ipratropium-albuterol (DUONEB) 0.5 mg-3 mg(2.5 mg base)/3 mL nebu Inhale 3 mL as instructed every 4hours as needed. PULSE OXIMETER CONTEC 1 Each as needed. Comp Stocking,Knee,Regular,Med misc 2 Each once daily. loratadine (CLARITIN) 10 mg tablet Take 1 tablet by mouth once daily. PHYSICAL EXAMINATION: BP 106/72 (BP Site: Right Arm, BP Position: Sitting, BP Cuff Size: Regular Adult) Pulse 78 Wt 54.6 kg (120 lb 5.9 oz) SpO2 98% BMI 21.73 kg/m General: Appears comfortable in no apparent cardiopulmonary distress Neck: No JVD, no bruits CVS: S1, S2, No m/r/g Chest: CTAB Abd: Soft, nontender, no masses, BS present Ext: No pedal edema, pedal pulses 2+ bilaterally Neuro: No focal neurological deficits CARDIOVASCULAR MEDICINE TESTING: Last ECHO Result Conclusion ECHO Collected: 11/05/2023 3:29 PM (Final result) Impression: CONCLUSIONS: - Exam indication: Abnormal ECG - The left ventricle is normal in size. Left ventricular systolic function is normal. EF = 61 5% (2D biplane) Normal left ventricular diastolic function. - The right ventricle is normal in size. Right ventricular systolic function is normal. - There are no significant valvular abnormalities. - Exam was compared with the prior echocardiographic exam performed on 06/13/2022, no significant change. * * * Final * * * Last EKG Result Conclusion ECG COMPLETE Collected: 01/16/2024 7:10 AM (Final result) Impression: NORMAL SINUS RHYTHM BIATRIAL ENLARGEMENT ABNORMAL ECG Confirmed by MD VO GREGORY () on 01/17/2024 8:33:[address] Result Conclusion CT CHEST WO IVCON Exam End: 06/04/2023 8:41 AM (Final result) Impression: IMPRESSION: Multiple lung nodules including stable nodules and new nodules. No CT evidence of lymphadenopathy in the chest. Certified Orthotic Fitter: GEENA Transcribe Date/Time: Jun 06 2023 4:38P Dictated by : GENESIS HERNANDEZ MD This examination was interpreted and the report reviewed and electronically signed by: GENESIS HERNANDEZ MD on Jun 06 2023 4:45PM EST ASSESSMENT/PLAN: 1. Syncope, unspecified syncope type - ICD9: 780.2, ICD10: R55 Episodes appear to be orthostatic as well as vagal induced. - Advised on proper hydration - Advised on being liberal with salt intake - Consider salt tablets 6-10 g /24 hrs - Consider at least knee-high graded compression stockings starting at 20 to 30 mmHg, increasing to30 to 40 mmHg if necessary, to be worn during the daytime and removal at bedtime. - Advised on resistance training exercises targeting her lower extremities. - Advised to avoid driving if she continues to experience presyncopal episodes. - She was counseled on techniques to mitigate lightheadedness such as getting close to the ground, elevating her lower extremities above the level of the head/heart, etc. -Will keep us informed if she continues to experience lightheadedness and or syncope despite above measures. Consider midodrine 5 mg p.o. tid if symptoms persist. - RTC 6 months 2. Carotid artery stenosis 20-30% R ICA stenosis per carotid artery duplex. - Start atorvastatin 20 mg p.o. daily - Obtain lipids and LFTs in 4 to 6 weeks - Recommend repeat carotid artery duplex in 1 year Mickey Lpóez MD, FACC documented in this [facility] NoteHNO ID: [id number] Author: MICKEY LÓPEZ MD Service: ? Author Type: Physician Type: Progress Notes Filed: 04/07/2024 10:23 Note Text: [facility] SECTION OF REGIONAL CARDIOLOGY OUTPATIENT VISIT DATE 04/07/2024 OUTPATIENT VISIT TYPE NEW PRIMARY CARE PHYSICIAN: Amanda Wallace [address] [place] [address] HISTORY OF PRESENT ILLNESS: Ms. Steinberg is a 53 year old female, hx of anorexia nervosa, ISAAC, anxiety, bulimia nervosa, smoker, Duggan's, emphysema, GERD, hiatal hernia, COVID, asthma presents for syncope management. She reported a syncopal episode a few weeks ago after getting up and walking across the [place]. Preceded by lightheadedness. Denied chest pain, SOB, palpitations prior to episode. Reported feeling fatigued after the episode. She denies chest pain, SOB, palpitations, orthopnea, PND, leg swelling. She drinks 3x 16 oz of water daily. Underwent cardiac testing, results of which are summarized below. She states that she is able to engage in walking exercises. TTT 02/26/24: vasodepressor response- orthostatic drop in BP with lowest SBP 54 Carotid artery duplex 02/20/24: MIKE 20-39%, LICA 0-19%. Zio 01/15-01/25 ; HR of 50 bpm, max HR of 136 bpm, and avg HR of 90 bpm. Predominant underlying rhythm was Sinus Rhythm. Isolated SVEs were rare (<1.0%), SVE Couplets were rare (<1.0%), and no SVE Triplets were present. Isolated VEs were rare (<1.0%), and no VE Couplets or VE Triplets were present. TTE 11/05/23: EF 61%, 0.9/0.9, 1-2+ MR, trace DC, asc Ao 2.7 cm. PAST MEDICAL HISTORY Diagnosis Date Anorexia nervosa 06/11/2006 Stable; treated in past Anxiety Asthma 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 02/13/2020 Bulimia nervosa 06/11/2006 Stable, treated in past Cancer (HCC) Chest pain Cholelithiasis 07/24/2023 Chronic obstructive pulmonary disease (COPD) (HCC) Emphysema lung (HCC) GERD (gastroesophageal reflux disease) H. pylori infection cronic Hiatal hernia 02/13/2020 small HISTORY OF CANCER OF UTERUS 06/11/2006 2004, Hysterectomy - complete History of COVID-19 07/10/2023 Internal hemorrhoids Lung disease Migraines Overweight (BMI 25.0-29.9) 07/10/2023 Snoring Tobacco use disorder 06/11/2006 Quit 09/2015. Unspecified asthma(493.90) Childhood diagnosis. PAST SURGICAL HISTORY Procedure Laterality Date APPENDECTOMY 1998 COLONOSCOPY 01/12/2023 no specimens, next colonoscopy 2029 EGD WITH BIOPSY(S) 03/13/2017 Dr. Shook EGD WITH BIOPSY(S) 02/13/2020 small hiatal hernia; Duggan's without dysplasia; Dr. Montoya EGD WITH BIOPSY(S) 10/06/2021 H. pylori +; Duggan's without dysplasia; Dr. Riggs EGD WITH BIOPSY(S) 09/12/2022 neg for H. pylori; Dr. Riggs LAPS SURG CHOLECYSTECTOMY W/CHOLANGIOGRAPHY 07/24/2023 PAST SURGICAL HISTORY OF 2003 Lymph Node Bx 1999 TOTAL ABDOMINAL HYSTERECT W/WO RMVL TUBE OVARY 2004 and BSO - pelvic pain/benign Social History Tobacco Use Smoking status: Every Day Current packs/day: 0.00 Average packs/day: 0.3 packs/day for 35.0 years (8.8 ttl pk-yrs) Types: Cigarettes Start date: 11/17/1986 Last attempt to quit: 11/23/2021 Years since quittin.3 Smokeless tobacco: Never Vaping Use Vaping status: Never Used Substance Use Topics Alcohol use: Not Currently Comment: Rarely Drug use: No FAMILY HISTORY Problem Relation Age of Onset Hypertension Mother Heart Mother Eczema Mother other (AAA) Mother other (Fibromyalgia) Mother Alcohol/Drug Father Alcohol Cancer Father lung Colon Cancer Father Hypertension Sister Asthma Sister other (Migraines) Sister other (Gout) Sister other (Fibromyalgia) Sister Cancer Sister 32 Ovarian cancer Sister 32 Breast Cancer Maternal Aunt 2 maternal aunts. other (MICRO PHOTOGRAPHER cancer) No Family History Anesthesia Problems No Family History Blood Clots No Family History ALLERGIES Allergen Reactions Penicillins Anaphylaxis CURRENT MEDICATIONS: varenicline (CHANTIX STARTING MONTH BOX) 0.5 mg (11)- 1 mg (42) tablet Take 0.5 mg by mouth once daily on Days 1 through 3, THEN 0.5 mg twice daily on Days 4 through 7, THEN 1 mg twice daily on Day 8 and thereafter levoFLOXacin (LEVAQUIN) 750 mg tablet Take 1 tablet by mouth once daily for 7 days. predniSONE (DELTASONE) 10 mg tablet Take 4 tabs daily for 3 days, then 2 tabs daily for 3 days, then 1 tab daily for 3 days with food. EPINEPHrine (EPIPEN) 0.3 mg/0.3 mL auto-injector Inject intramuscularly. multivit with minerals/lutein (MULTIVITAMIN 50 PLUS ORAL) Take by mouth. amitriptyline (ELAVIL) 100 mg tablet take 1 tablet by mouth once daily at bedtime IBSRELA 50 mg tablet TAKE 1 TABLET BY MOUTH TWICE A DAY 10 MINUTES BEFORE EATING promethazine (PHENERGAN) 25 mg tablet Take 1 tablet by mouth every 8 hours as needed (for nausea). fluticasone (FLONASE) 50 mcg/actuation nasal spray Use 2 Sprays in each nostril (more content not included)...[facility]09-26-2024 [facility] Medical Records Department [address] [place] [address] History Physical Exam 04/03/24 0646 MR#: [id number] Acct: [id number] Name: JANE STEINBERG Rep #: [id number] : 1970 53 From: Pelon Friend DO PCP: LAURA HERNANDEZ NP-C Status:[facility] Location: [place] [address] History and Physical Date of Admission: 04/03/24 JANE STEINBERG, is a 53 F who presents to the office today for initial consult. *BGI established 9.6.24 pt reports a long history of GERD, IBS-C, Barretts. Pt reports that about a year ago she was told she has a small hiatal hernia. Pt states that she has nearly constant HB and nothing seems to be helpful. Pt reports waking in the middle of the night throwing up due to her HB. Pt reports taking Ibsrela and that if she did not she could go months without a bm. ROS Const Constitutional: Positive for fatigue and headache(s); No fever(s) or weight change ENT ENT: Positive for headache(s); No difficulty swallowing Gastro GI: Positive for constipation, heartburn, nausea/dyspepsia and vomiting; No abdominal pain, belching, bloating, change in bowel habits, change in stool character, coffee ground emesis, cramping, diarrhea, difficulty swallowing, feeling full early, excessive flatus, inc ontinent of stools, Vomiting blood/hematemesis, Blood in stool, loose stools, Black,tarry stools, pain with swallowing or other Musc Musculoskeletal: Positive for back pain, restless legs and leg pain at night; No joint pain Skin Skin: No yellowing of the eye or itchy eyes Neuro Neurology: Positive for headache(s) and restless legs Psych Psychiatric: Positive for anxiety and No depression Endo Endocrine: Positive for fatigue; No weight change Aller/Imm Allergy/Immunologic: No itchy eyes Adelso/Lymp Hematologic/Lymphatic: No easy bleeding or easy bruising Exam Const General: cooperative and comfortable Nutritional Appearance: average body habitus and well nourished [facility] Head: normal to inspection Ears: hearing grossly normal bilaterally Nose: external nose normal Face and sinus: normal facial exam Mouth: oral mucosae normal Throat: posterior oropharynx normal Eyes General: appearance normal, both eyes and all related structures Neck Neck: normal visual inspection Chest Chest palpation inspection: normal inspection of the chest and normal palpation of entire chest wall Resp Effort Inspection: normal respiratory effort Auscultation: Bilateral: Clear to Auscultation Cardio Palpation: normal PMI Rate: regular rate Rhythm: regular rhythm GI Inspection: normal to inspection Auscultation: normal bowel sounds Percussion: normal to percussion Palpation: no hepatosplenomegaly Skin General: no rashes or lesions noted Neuro General: patient alert Extrem General: normal to inspection Psych Affect: normal affect Assessment and Plan Assessment and Plan (1) Irritable bowel syndrome: Plan: She likely has her bowel syndrome with constipation. She is on his Ken and is actually doing very well. She is experiencing some intermittent abdominal pain so we will get a gastric emptying study to determine her gastric emptying time to see if this contributing to her IBS-C symptoms. (2) GERD (gastroesophageal reflux disease): Status: Acute Plan: She is having refractory gastroesophageal reflux disease possibly secondary to gastroparesis. She does have underlying diagnosis of anorexia on nervosa and bulimia previously diagnosed a long time ago. She does smoke which contributes to a lot of bloating and CO2 retention along with she is suffering from a COPD smoker's cough which contributes to cough induced reflux. We talked about smoking cessation and some other modalities including getting a Gonzalez pH study to evaluate her refractory reflux disease. She does have Duggan's esophagus which will need to undergo surveillance. (3) Bloating: Status: Acute Plan: Bloating likely secondary to small bacterial overgrowth from smoking. (4) Constipation: Status: Inactive Plan: Continue current medications for her IBS with constipation. Orders: Orders ANTONIO + Protein Elect, Serum Today K21.9 - Gastro-esophageal reflux disease without esophagitis, K59.00 - Constipation, unspecified, R14.0 - Abdominal distension (gaseous) Ferritin Today D64.9 - Anemia, unspecified, K21.9 - Gastro-esophageal reflux disease without esophagitis, K59.00 - Constipation, unspecified, R14.0 - Abdominal distension (gaseous) LDH Today K21.9 - Gastro-esophageal reflux disease without esophagitis, K59.00 - Constipation, unspecified, R14.0 - Abdominal distension (gaseous) ANCA Today K21.9 - Gastro-esophageal reflux disease without esophagitis, K59.00 - Constipation, unspecified, R14.0 - Abdominal distension (gaseous) Angiotensin Convert Enzyme Today K21.9 - Gastro-esophageal reflux (more content not included)...[facility]09-23-2024 History of Present illness Narrative* Brady Menendez RT(R) - 03/31/2024 2:50 PM EDT Radiology Service Progress Note PATIENT NAME: Jane Steinberg DATE OF SERVICE: March 31, 2024 TIME: 2:43 PM PATIENT IDENTITY VERIFICATION COMPLETED USING TWO (2) IDENTIFIERS: Name and Date of confirmedby patient verbally. FALL SCREENING: Has the patient had 2 falls in the last year or 1 fall with injury or currently using an Ambulatory Assistive Device (Walker, Cane, Wheelchair, Crutches, etc.)? No PATIENT GENDER DATA: Female. status: : No status: NO. PATIENT RELEVANT IMPLANT DATA REVIEWED: Yes PATIENT PRESENTS WITH AN IMPLANTABLE OR ATTACHED SHAREMILKER: No RADIOLOGY DEPARTMENT: General X-ray: Exam(s) Completed: Chest X-Ray PERIPHERAL IV DATA: Not applicable SIGNED BY: RT Emilia(R) March 31, 2024 2:43 PM documented in this encounterCos[facility]09-23-2024 NoteHNO ID: [id number] Author: BRADY MENENDEZ RT(R) Service: Radiology Author Type: Technologist Type: Progress Notes Filed: 03/31/2024 14:51 Note Text: Radiology Service Progress Note PATIENT NAME: Jane Steinberg DATE OF SERVICE: March 31, 2024 TIME: 2:43 PM PATIENT IDENTITY VERIFICATION COMPLETED USING TWO (2) IDENTIFIERS: Name and Date of confirmed by patient verbally. FALL SCREENING: Has the patient had 2 falls in the last year or 1 fall with injury or currently using an Ambulatory Assistive Device (Walker, Cane, Wheelchair, Crutches, etc.)? No PATIENT GENDER DATA: Female. status: : No status: NO. PATIENT RELEVANT IMPLANT DATA REVIEWED: Yes PATIENT PRESENTS WITH AN IMPLANTABLE OR ATTACHED SHAREMILKER: No RADIOLOGY DEPARTMENT: General X-ray: Exam(s) Completed: Chest X-Ray PERIPHERAL IV DATA: Not applicable SIGNED BY: RT Emilia(R) March 31, 2024 2:43 [facility]09-23-2024 NoteHNO ID: [id number] Author: LAURA HERNANDEZ APRN.DUMPER Service: ? Author Type: Nurse Practitioner Type: Progress Notes Filed: 03/31/2024 14:45 Note Text: CC: Patient presents with: Recheck: 1 month follow up HPI Jane Steinberg is a 53 year old female who presents today for syncope. Tilt table with lowering blood pressure with symptoms. CT brain: unremarkable Carotid US: Left 0-19% stenosis. Right 20-39% stenosis CXR: unremarkable Echo: Normal in the last 5 months Zio: Unremarkable Scheduled to see cardiology next week. Has had 2 episodes since last being seen both occurring when she was standing. Once symptoms started she sat down so did not pass out. COPD: Feels over the past 7 days is having increase in coughing, shortness of breath, and wheezing. Using acapella device as ordered by pulmonology but does not see them until next month. Coughing up thick yellow sputum that can lead to vomiting. Denies fever, chills, chest pain, edema, palpitations, sore throat, increase in regular headaches, nausea or diarrhea. Previously treated for last exacerbation 6 weeks ago with full resolution. Smoking on average 1/2 pack or less daily. REVIEW OF SYSTEMS See HPI PAST MEDICAL HISTORY Diagnosis Date Anorexia nervosa 06/11/2006 Stable; treated in past Anxiety Asthma 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 02/13/2020 Bulimia nervosa 06/11/2006 Stable, treated in past Cancer (HCC) Chest pain Cholelithiasis 07/24/2023 Chronic obstructive pulmonary disease (COPD) (HCC) Emphysema lung (HCC) GERD (gastroesophageal reflux disease) H. pylori infection cronic Hiatal hernia 02/13/2020 small HISTORY OF CANCER OF UTERUS 06/11/2006 2004, Hysterectomy - complete History of COVID-19 07/10/2023 Internal hemorrhoids Lung disease Migraines Overweight (BMI 25.0-29.9) 07/10/2023 Snoring Tobacco use disorder 06/11/2006 Quit 09/2015. Unspecified asthma(493.90) Childhood diagnosis. PAST SURGICAL HISTORY Procedure Laterality Date APPENDECTOMY 1998 COLONOSCOPY 01/12/2023 no specimens, next colonoscopy 2029 EGD WITH BIOPSY(S) 03/13/2017 Dr. Shook EGD WITH BIOPSY(S) 02/13/2020 small hiatal hernia; Duggan's without dysplasia; Dr. Montoya EGD WITH BIOPSY(S) 10/06/2021 H. pylori +; Duggan's without dysplasia; Dr. Riggs EGD WITH BIOPSY(S) 09/12/2022 neg for H. pylori; Dr. Riggs LAPS SURG CHOLECYSTECTOMY W/CHOLANGIOGRAPHY 07/24/2023 PAST SURGICAL HISTORY OF 2003 Lymph Node Bx 1999 TOTAL ABDOMINAL HYSTERECT W/WO RMVL TUBE OVARY 2004 and BSO - pelvic pain/benign ALLERGIES Penicillins MEDICATIONS EPINEPHrine (EPIPEN) 0.3 mg/0.3 mL auto-injector Inject intramuscularly. multivit with minerals/lutein (MULTIVITAMIN 50 PLUS ORAL) Take by mouth. amitriptyline (ELAVIL) 100 mg tablet take 1 tablet by mouth once daily at bedtime IBSRELA 50 mg tablet TAKE 1 TABLET BY MOUTH TWICE A DAY 10 MINUTES BEFORE EATING promethazine (PHENERGAN) 25 mg tablet Take 1 tablet by mouth every 8 hours as needed (for nausea). fluticasone (FLONASE) 50 mcg/actuation nasal spray Use 2 Sprays in each nostril once daily. Rinse mouth after use. ibuprofen (MOTRIN) 800 mg tablet Take 1 tablet by mouth every 8 hours as needed for pain. diclofenac (VOLTAREN) 1 % topical gel Apply 2 g to affected area twice daily. FASENRA PEN 30 mg/mL auto-injector Dexlansoprazole (DEXILANT) 60 mg CpDM Take 60 mg by mouth once daily. magnesium hydroxide (MILK OF MAGNESIA) 400 mg/5 mL suspension Take 15 mL by mouth once daily as needed for constipation. bisacodyl (DULCOLAX, BISACODYL,) 10 mg supp 1 Suppository by RECTAL route once daily as needed for constipation. famotidine (PEPCID) 40 mg tablet Take 1 tablet by mouth once daily as needed. MUCUS RELIEF ER 600 mg 12 hr tablet Take 1,200 mg by mouth twice daily. montelukast (SINGULAIR) 10 mg tablet Take 1 tablet by mouth daily at bedtime. zgcosdmtlxn-cipkalomo-enynglbp (TRELEGY ELLIPTA) 200-62.5-25 mcg inhalation powder Inhale as instructed. albuterol HFA (VENTOLIN HFA) 90 mcg/actuation inhaler Inhale 2 Puffs as instructed every 4 hours as needed for wheezing/shortness of breath. L. acidophilus-L. rhamnosus 15 billion cell cap Take 1 capsule by mouth once daily. FLORAJEN WOMEN. If on antibiotic, take at least 1-2 hours before or after antibiotic. KEEP REFRIGERATED ergocalciferol 50,000 unit capsule (VITAMIN D2, DRISDOL) Take 1 capsule by mouth one time a week. albuterol (PROVENTIL) 2.5 mg /3 mL (0.083 %) nebulizer solution Use 3 mL via nebulizer every 6 hours as needed. COMPACT SPACE CHAMBER as directed. ipratropium-albuterol (DUONEB) 0.5 mg-3 mg(2.5 mg base)/3 mL nebu Inhale 3 mL as instructed every 4 hours as needed. PULSE OXIMETER CONTEC 1 Each as needed. Comp Stocking,Knee,Regular,Med misc 2 Each once daily. loratadine (CLARITIN) 10 mg tablet Take 1 tablet by mouth once daily. FAMILY HISTORY Problem Relation Age of Onset Hyper (more content not included)...[facility]09-23-2024 History of Present illness Narrative* Laura Hernandez APRN.DUMPER - 03/31/2024 2:10 PM EDT CC: Patient presents with: Recheck: 1 month follow up HPI Jane Steinberg is a 53 year old female who presents today for syncope. Tilt table with lowering blood pressure with symptoms. CT brain: unremarkable Carotid US: Left 0-19% stenosis. Right 20-39% stenosis CXR: unremarkable Echo: Normal in the last 5 months Zio: Unremarkable Scheduled to see cardiology next week. Has had 2 episodes since last being seen both occurring when she was standing. Once symptoms started she sat down so did not pass out. COPD: Feels over the past 7 days is having increase in coughing, shortness of breath, and wheezing.Using acapella device as ordered by pulmonology but does not see them until next month. Coughing upthick yellow sputum that can lead to vomiting. Denies fever, chills, chest pain, edema, palpitations, sore throat, increase in regular headaches, nausea or diarrhea. Previously treated for last exacerbation 6 weeks ago with full resolution. Smoking on average 1/2 pack or less daily. REVIEW OF SYSTEMS See HPI PAST MEDICAL HISTORY Diagnosis Date Anorexia nervosa 06/11/2006 Stable; treated in past Anxiety Asthma 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 02/13/2020 Bulimia nervosa 06/11/2006 Stable, treated in past Cancer (HCC) Chest pain Cholelithiasis 07/24/2023 Chronic obstructive pulmonary disease (COPD) (HCC) Emphysema lung (HCC) GERD (gastroesophageal reflux disease) H. pylori infection cronic Hiatal hernia 02/13/2020 small HISTORY OF CANCER OF UTERUS 06/11/2006 2004, Hysterectomy - complete History of COVID-19 07/10/2023 Internal hemorrhoids Lung disease Migraines Overweight (BMI 25.0-29.9) 07/10/2023 Snoring Tobacco use disorder 06/11/2006 Quit 09/2015. Unspecified asthma(493.90) Childhood diagnosis. PAST SURGICAL HISTORY Procedure Laterality Date APPENDECTOMY 1998 COLONOSCOPY 01/12/2023 no specimens, next colonoscopy 2029 EGD WITH BIOPSY(S) 03/13/2017 Dr. Shook EGD WITH BIOPSY(S) 02/13/2020 small hiatal hernia; Duggan's without dysplasia; Dr. Montoya EGD WITH BIOPSY(S) 10/06/2021 H. pylori +; Duggan's without dysplasia; Dr. Riggs EGD WITH BIOPSY(S) 09/12/2022 neg for H. pylori; Dr. Riggs LAPS SURG CHOLECYSTECTOMY W/CHOLANGIOGRAPHY 07/24/2023 PAST SURGICAL HISTORY OF 2004 Lymph Node Bx 1999 TOTAL ABDOMINAL HYSTERECT W/WO RMVL TUBE OVARY 2004 and BSO - pelvic pain/benign ALLERGIES Penicillins MEDICATIONS EPINEPHrine (EPIPEN) 0.3 mg/0.3 mL auto-injector Inject intramuscularly. multivit with minerals/lutein (MULTIVITAMIN 50 PLUS ORAL) Take by mouth. amitriptyline (ELAVIL) 100 mg tablet take 1 tablet by mouth once daily at bedtime IBSRELA 50 mg tablet TAKE 1 TABLET BY MOUTH TWICE A DAY 10 MINUTES BEFORE EATING promethazine (PHENERGAN) 25 mg tablet Take 1 tablet by mouth every 8 hours as needed (for nausea). fluticasone (FLONASE) 50 mcg/actuation nasal spray Use 2 Sprays in each nostril once daily. Rinse mouth after use. ibuprofen (MOTRIN) 800 mg tablet Take 1 tablet by mouth every 8 hours as needed for pain. diclofenac (VOLTAREN) 1 % topical gel Apply 2 g to affected area twice daily. FASENRA PEN 30 mg/mL auto-injector Dexlansoprazole (DEXILANT) 60 mg CpDM Take 60 mg by mouth once daily. magnesium hydroxide (MILK OF MAGNESIA) 400 mg/5 mL suspension Take 15 mL by mouth once daily as needed for constipation. bisacodyl (DULCOLAX, BISACODYL,) 10 mg supp 1 Suppository by RECTAL route once daily as needed for constipation. famotidine (PEPCID) 40 mg tablet Take 1 tablet by mouth once daily as needed. MUCUS RELIEF ER 600 mg 12 hr tablet Take 1,200 mg by mouth twice daily. montelukast (SINGULAIR) 10 mg tablet Take 1 tablet by mouth daily at bedtime. lyxzmedihjd-lcnzvxwkx-lkixmpzb (TRELEGY ELLIPTA) 200-62.5-25 mcg inhalation powder Inhale as instructed. albuterol HFA (VENTOLIN HFA) 90 mcg/actuation inhaler Inhale 2 Puffs as instructed every 4 hours asneeded for wheezing/shortness of breath. L. acidophilus-L. rhamnosus 15 billion cell cap Take 1 capsule by mouth once daily. FLORAJEN WOMEN.If on antibiotic, take at least 1-2 hours before or after antibiotic. KEEP REFRIGERATED ergocalciferol 50,000 unit capsule (VITAMIN D2, DRISDOL) Take 1 capsule by mouth one time a week. albuterol (PROVENTIL) 2.5 mg /3 mL (0.083 %) nebulizer solution Use 3 mL via nebulizer every 6 hours as needed. COMPACT SPACE CHAMBER as directed. ipratropium-albuterol (DUONEB) 0.5 mg-3 mg(2.5 mg base)/3 mL nebu Inhale 3 mL as instructed every 4hours as needed. PULSE OXIMETER CONTEC 1 Each as needed. Comp Stocking,Knee,Regular,Med misc 2 Each once daily. loratadine (CLARITIN) 10 mg tablet Take 1 tablet by mouth once daily. FAMILY HISTORY Problem Relation Age of Onset Hypertension Mother Heart Mother Eczema Mother other (AAA) Mother other (Fibromyalgia) Mother Alcohol/Drug Father Alcohol Cancer Father lung Colon Cancer Father Hypertension Sister Asthma Sister other (Migraines) Sister other (Gout) Sister other (Fibromyalgia) Sister Cancer Sister 32 Ovarian cancer Sister 32 Breast Cancer Maternal Aunt 2 maternal aunts. other (MICRO PHOTOGRAPHER cancer) No Family History Anesthesia Problems No Family History Blood Clots No Family History Social History Tobacco Use Smoking status: Every Day Current packs/day: 0.00 Average packs/day: 0.3 packs/day for 35.0 years (8.8 ttl pk-yrs) Types: Cigarettes Start date: 11/17/1986 Last attempt to quit: 11/23/2021 Years since quittin.3 Smokeless tobacco: Never Vaping Use Vaping status: Never Used Substance Use Topics Alcohol use: Not Currently Comment: Rarely Drug use: No PHYSICAL EXAM BP 128/76 Pulse 84 Resp 16 Wt 54.9 kg (121 lb) SpO2 95% BMI 21.85 kg/m General Appearance: well appearing, in no acute distress, alert Skin: Skin color, texture, turgor normal for age; Eyes: conjunctiva pink and moist, no icterus, sclera white, non-injected Neck: Thyroid normal size and symmetric without palpable nodules, Neck supple, No adenopathy Lymph nodes: No cervical lymphadenopathy and No supraclavicular lymphadenopathy Lungs: inspriatory and expiratory wheezes throughout with more coarse sounds on left posterior. No rhonchi noted. Heart: RRR without murmur, gallop, or rubs. No ectopy Health maintenance reviewed with patient: Anxiety Screening Never done Covid-19 Vaccine(6 - 2023- season) due on 03/09/2024 Influenza Vaccine(1) due on 03/09/2024 DTaP,Tdap,Td Vaccine(6 - Tdap) due on 04/11/2024 Hepatitis B Vaccine(1 of 3 - 19+ 3-dose series) due on 04/11/2024 Shingrix Vaccine(1 of 2) due on 04/11/2024 Pneumococcal Vaccine(2 of 2 - PCV) due on 04/11/2024 Mammogram Screening due on 10/08/2024 Cervical Cancer Screening due on 10/24/2024 Annual PCP Team Chronic Disease Visit due on 02/20/2025 Diabetes Screening due on 01/15/2027 Lipid Screening due on 11/15/2027 Colorectal Cancer Screening due on 01/12/2033 Alpha-1 Antitrypsin Deficiency Screening Completed Spirometry Completed Hepatitis C Screening Completed HIV Screening Completed DATA REVIEWED: Most recent labs and imaging results. ASSESSMENT/PLAN: 1. Syncope, unspecified syncope type - ICD9: 780.2, ICD10: R55 (primary diagnosis) Probable result of BP lowering when standing for so long. Wear compression socks during the day Stay hydrated with plenty of water and can slightly increase salt intake on days she will be standing/walking for long periods. Keep upcoming appointment with cardiology 2. COPD with exacerbation (HCC) - ICD9: 491.21, ICD10: J44.1 Recent usage of doxy so will use levaquin along with prednisone taper If no improvement in a few days, call pulmonology group Go to ER for any worsening symptoms. Follow depending on chest xray, if positive for pneumonia will need follow up next week. - LEVOFLOXACIN 750 MG TABLET - XR CHEST 2V FRONTAL/LAT 3. Wheezing - ICD9: 786.07, ICD10: R06.2 As above - LEVOFLOXACIN 750 MG TABLET - XR CHEST 2V FRONTAL/LAT 4. Shortness of breath - ICD9: 786.05, ICD10: R06.02 See #1 - LEVOFLOXACIN 750 MG TABLET - XR CHEST 2V FRONTAL/LAT Prescription instructions reviewed with patient as applicable. Potential red flag symptoms discussed with the patient. Reviewed appropriate action plan to take if red flag symptoms occur. Patient agreeable to treatment plan. Laura Hernandez APRN.CNP documented in this encounter[facility] Telephone encounter Note * Telephone Encounter - Danielle Shabazz MA - 03/25/2024 10:08 AM EDT Patient phones requesting refills as follows: Requested Prescriptions Pending Prescriptions Disp Refills IBSRELA 50 mg tablet [Pharmacy Med Name: IBSRELA 50 MG TAB] 4 Sig: TAKE 1 TABLET BY MOUTH TWICE A DAY 10 MINUTES BEFORE EATING Please review and advise. Danielle Shabazz MA [facility]09-17-2024 Miscellaneous Notes* Telephone Encounter - Danielle Shabazz MA - 03/25/2024 10:08 AM EDT Patient phones requesting refills as follows: Requested Prescriptions Pending Prescriptions Disp Refills IBSRELA 50 mg tablet [Pharmacy Med Name: IBSRELA 50 MG TAB] 4 Sig: TAKE 1 TABLET BY MOUTH TWICE A DAY 10 MINUTES BEFORE EATING Please review and advise. Danielle Shabazz MA documented in this encounterCosho[facility]09-08-2024 Telephone encounter Note * Telephone Encounter - Eleanor Willoughby - 03/16/2024 10:57 AM EDT Patient is currently scheduled with cardiology at [facility] for 04/07/24. I scheduled patient for CT scan on 03/25/24 @ 8:20 am and then follow-up with Laura Hernandez CNP on 03/31/24 @ 8:20 am I called and confirmed these dates and times with Yohannes Aguilar [facility]-08-[facility]24 Miscellaneous Notes* Telephone Encounter - Eleanor Willoughby - 03/16/2024 10:57 AM EDT Patient is currently scheduled with cardiology at [facility] for 04/07/24. I scheduled patient for CT scan on 03/25/24 @ 8:20 am and then follow-up with Laura Hernandez CNP on 03/31/24 @ 8:20 am I called and confirmed these dates and times with Yohannes Aguilar * Telephone Encounter - Laura Hernandez APRN.CNP - 03/14/2024 2:41 PM EDT I have consulted her to cardiology and ordered a CT of her brain. Follow up in 2 weeks. Go to ER for any concerns or further syncopal episodes. Thank you Laura Hernandez APRN.CNP * Telephone Encounter - Latasha Salamanca MA - 03/14/2024 2:35 PM EDT Patient notified. Patient states that she continues to have syncope episodes though not as often, only when patient has been up on feet for a long period of time. * Telephone Encounter - Laura Hernandez APRN.CNP - 03/14/2024 2:08 PM EDT Had a drop of BP during tilt table that may or may not be cause of previous syncope. No other cardiac concerns noted. Has she had any further episodes or concerns? Thank you Laura Hernandez APRN.CNP * Telephone Encounter - Maricarmen Wong LPN - 03/07/2024 1:44 PM EDT Tilt table test still in preliminary result status. Maricarmen Wong LPN March 07, 2024 1:45 PM * Telephone Encounter - Maricarmen Wong LPN - 02/29/2024 11:42 AM EDT Updated via [email or web address] Maricarmen Wong LPN * Telephone Encounter - Laura Hernandez APRN.CNP - 02/28/2024 2:30 PM EDT Still only at a preliminary status. Will update her when results are final. Thank you Laura Hernandez APRN.CNP * Telephone Encounter - Bree Meléndez RN - 02/28/2024 1:11 PM EDT Patient calling in and requesting provider to advise on recent Tilt Table results, when able. Thank you. documented in this encounterCosho[facility]09-06-2024 Telephone encounter Note * Telephone Encounter - Laura Hernandez APRN.CNP - 03/14/2024 2:41 PM EDT I have consulted her to cardiology and ordered a CT of her brain. Follow up in 2 weeks. Go to ER for any concerns or further syncopal episodes. Thank you Laura Hernandez APRN.CNP [facility]09-06-[facility] Telephone encounter Note* Telephone Encounter - Latasha Salamanca MA - 03/14/2024 2:35 PM EDT Patient notified. Patient states that she continues to have syncope episodes though not as often, only when patient has been up on feet for a long period of time. [facility] Telephone encounter Note* Telephone Encounter - Laura Hernandez APRN.CNP - 03/14/2024 2:08 PM EDT Had a drop of BP during tilt table that may or may not be cause of previous syncope. No other cardiac concerns noted. Has she had any further episodes or concerns? Thank you Laura Hernandez APRN.KACY [facility]08-30-2024 Telephone encounter Note* Telephone Encounter - Maricarmen Wong LPN - 03/07/2024 1:44 PM EDT Tilt table test still in preliminary result status. Maricarmen Wong LPN March 07, 2024 1:45 PM [facility]08-23-[facility] Telephone encounter Note* Telephone Encounter - Maricarmen Wong LPN - 02/29/2024 11:42 AM EDT Updated via [email or web address] Maricarmen Wong LPN [facility]08-22-2024 Telephone encounter Note* Telephone Encounter - Laura Hernandez APRN.CNP - 02/28/2024 2:30 PM EDT Still only at a preliminary status. Will update her when results are final. Thank you Laura Hernandez APRN.CNP [facility]08-22-2024 Telephone encounter Note* Telephone Encounter - Bree Meléndez RN - 02/28/2024 1:11 PM EDT Patient calling in and requesting provider to advise on recent Tilt Table results, when able. Thank you. [facility]08[facility] Nurse Note* Lalita Nieves RN - 02/26/2024 10:42 AM EDT Pt here for out patient tilt table test. IV started left hand # 24, flushed and patent. After 18 minutes pt felt like I am going out HR and B/P decreased. Pt requested to lay down. After laying down for 5 minutes, symptoms resolved and vs at baseline. Once test completed, IV discontinued, catheter intact. Pt departs in an upright steady gait without complaints. [facility] Nurse Note* Lalita Nieves RN - 02/26/2024 10:42 AM EDT Pt here for out patient tilt table test. IV started left hand # 24, flushed and patent. After 18 minutes pt felt like I am going out HR and B/P decreased. Pt requested to lay down. After laying down for 5 minutes, symptoms resolved and vs at baseline. Once test completed, IV discontinued, catheter intact. Pt departs in an upright steady gait without complaints. documented in this encounterCoshocton [facility] Center08-20-2024 NoteHNO ID: [id number] Author: MARTIN SHAH MD Service: Cardiovascular Medicine Author Type: Physician Type: Procedures Filed: 02/26/2024 17:10 Note Text: [facility]- Tilt Table Test (passive) JANE STEINBERG : 1970 AGE: 53 SEX: F ACCTNUM: [id number] [facility] SVC: LOCATION: ATTENDING PHYSICIAN: DATE OF STUDY: 02/26/2024 INDICATIONS: Syncope. REPORT: The resting blood pressure was 138/83 mmHg. The patient had a resting heart rate of 65 beats per minute. EKG NSR The patient was tilted upright at an angle of 70 degrees for 18 minutes. The patient's heart rate increased up to 85 beats per minute after 10 minutes. The patient did not have any symptoms at that time. Her blood pressure steadily dropped after 15 minutes and the patient started to feel tingling all over the body and her blood pressure dropped suddenly to 54 mmHg systolic. EKG showed NSR with no arrhythmia or ST changes. At this time, she was reclined back and her symptoms got better and her blood pressure recovered to 118/71 mmHg and her symptoms resolved. CONCLUSION: 1. The patient had vasodepressor response that may be responsible for her syncope due to orthostatic / postural drop in her blood pressure suddenly at 19 minutes. 2. The patient did not have any postural orthostatic tachycardia or neurocardiogenic syncope. Martin Shah MD, FACC. Services Engineer, Dept of Medicine, [facility]. Regulator Mechanic of Ambulatory Cardiology, [facility]. Regulator Mechanic of Cardiac Catheterization laboratory, [facility]. Asst. producer arborist manager, [facility] and [facility] Staff Insurance Rater, [facility] [place], Rose Wyatt Department of Cardiovascular Medicine. QS:[id number] Procedure note* Martin Shah MD - 02/26/2024 12:00 AM EDTAssociated Order(s): TILT TABLE TEST [facility]- Tilt Table Test (passive) STEINBERGJANE ZAVALETA : 1970 AGE: 53 SEX: F [id number] SVC: LOCATION: ATTENDING PHYSICIAN: DATE OF STUDY: 02/26/2024 INDICATIONS: Syncope. REPORT: The resting blood pressure was 138/83 mmHg. The patient had a resting heart rate of 65 beats per minute. EKG NSR The patient was tilted upright at an angle of 70 degrees for 18 minutes. The patient's heart rate increased up to 85 beats per minute after 10 minutes. The patient did not have any symptoms at that time. Her blood pressure steadily dropped after 15 minutes and the patient started to feel tingling all over the body and her blood pressure dropped suddenly to 54 mmHg systolic. EKG showed NSR with noarrhythmia or ST changes. At this time, she was reclined back and her symptoms got better and her blood pressure recovered to 118/71 mmHg and her symptoms resolved. CONCLUSION: 1. The patient had vasodepressor response that may be responsible for her syncope due to orthostatic / postural drop in her blood pressure suddenly at 19 minutes. 2. The patient did not have any postural orthostatic tachycardia or neurocardiogenic syncope. Martin Shah MD, FACC. Services Engineer, Dept of Medicine, [facility]. Regulator Mechanic of Ambulatory Cardiology, [facility]. Regulator Mechanic of Cardiac Catheterization laboratory, [facility]. Asst. producer arborist manager, [facility] and [facility] Staff Insurance Rater, Heart, [facility] [place], Rose Leija Department of Cardiovascular Medicine. QS:[id number] /[id number] [facility] Work Phone: 1(750) 787-290508-20-2024 Procedure note* Martin Shah MD - 02/26/2024 12:00 AM EDTAssociated Order(s): TILT TABLE TEST [facility]- Tilt Table Test (passive) JANE STEINBERG : 1970 AGE: 53 SEX: F [id number]: ATTENDING PHYSICIAN: DATE OF STUDY: 02/26/2024 INDICATIONS: Syncope. REPORT: The resting blood pressure was 138/83 mmHg. The patient had a resting heart rate of 65 beats per minute. EKG NSR The patient was tilted upright at an angle of 70 degrees for 18 minutes. The patient's heart rate increased up to 85 beats per minute after 10 minutes. The patient did not have any symptoms at that time. Her blood pressure steadily dropped after 15 minutes and the patient started to feel tingling all over the body and her blood pressure dropped suddenly to 54 mmHg systolic. EKG showed NSR with noarrhythmia or ST changes. At this time, she was reclined back and her symptoms got better and her blood pressure recovered to 118/71 mmHg and her symptoms resolved. CONCLUSION: 1. The patient had vasodepressor response that may be responsible for her syncope due to orthostatic / postural drop in her blood pressure suddenly at 19 minutes. 2. The patient did not have any postural orthostatic tachycardia or neurocardiogenic syncope. Martin Shah MD, FACC. Services Engineer, Dept of Medicine, [facility]. Regulator Mechanic of Ambulatory Cardiology, [facility]. Regulator Mechanic of Cardiac Catheterization laboratory, [facility]. Asst. producer arborist manager, [facility] and [facility] Staff Insurance Rater, Heart, Vascular [facility] [place], Rose Wyatt Department of Cardiovascular Medicine. QS:[id number] /[id number] documented in this encounterCoshoct[facility]08-15-2024 Telephone encounter Note * Telephone Encounter - Danielle Shabazz MA - 02/21/2024 2:07 PM EDT Last office notes faxed to [facility] at [phone] [facility]08-15-2024 Miscellaneous Notes* Telephone Encounter - Danielle Shabazz MA - 02/21/2024 2:07 PM EDT Last office notes faxed to [facility] at [phone] documented in this encounterCoshocton [facility] Center08-15-2024 History of Present illness Narrative* Mikael Stubbs, RT(R) - 02/21/2024 8:50 AM EDT Radiology Service Progress Note PATIENT NAME: Jane Steinberg DATE OF SERVICE: February 21, 2024 TIME: 8:48 AM PATIENT IDENTITY VERIFICATION COMPLETED USING TWO (2) IDENTIFIERS: Name and Date of confirmedby patient verbally. FALL SCREENING: Has the patient had 2 falls in the last year or 1 fall with injury or currently using an Ambulatory Assistive Device (Walker, Cane, Wheelchair, Crutches, etc.)? No PATIENT GENDER DATA: Female. status: : No status: NO. PATIENT RELEVANT IMPLANT DATA REVIEWED: Not Applicable PATIENT PRESENTS WITH AN IMPLANTABLE OR ATTACHED SHAREMILKER: No RADIOLOGY DEPARTMENT: General X-ray: Exam(s) Completed: Lower Extremity X- Ray(s): Tibia Fibula, Left PERIPHERAL IV DATA: Not applicable SIGNED BY: RT Trisha(R) February 21, 2024 8:48 AM documented in this encounterCoshocton [facility] Center08-15-2024 NoteHNO ID: [id number] Author: MIKAEL STUBBS RT(R) Service: Radiology Author Type: Technologist Type: Progress Notes Filed: 02/21/2024 08:55 Note Text: Radiology Service Progress Note PATIENT NAME: Jane Steinberg DATE OF SERVICE: February 21, 2024 TIME: 8:48 AM PATIENT IDENTITY VERIFICATION COMPLETED USING TWO (2) IDENTIFIERS: Name and Date of confirmed by patient verbally. FALL SCREENING: Has the patient had 2 falls in the last year or 1 fall with injury or currently using an Ambulatory Assistive Device (Walker, Cane, Wheelchair, Crutches, etc.)? No PATIENT GENDER DATA: Female. status: : No status: NO. PATIENT RELEVANT IMPLANT DATA REVIEWED: Not Applicable PATIENT PRESENTS WITH AN IMPLANTABLE OR ATTACHED SHAREMILKER: No RADIOLOGY DEPARTMENT: General X-ray: Exam(s) Completed: Lower Extremity X-Ray(s): Tibia Fibula, Left PERIPHERAL IV DATA: Not applicable SIGNED BY: RT Trisha(Lashae) February 21, 2024 8:[address] [facility]08-15-2024 NoteHNO ID: [id number] Author: LAURA HERNANDEZ APRN.DUMPER Service: ? Author Type: Nurse Practitioner Type: Progress Notes Filed: 02/21/2024 09:26 Note Text: CC: Patient presents with: Recheck: 1 week follow up HPI Jane Steinberg is a 53 year old female who presents today for COPD exacerbation follow up. Was seen a 1 week ago and doxy and prednisone ordered. CXR resulted without concern. Last visit: COPD Exacerbation: Last saw pulmonology 1 week ago for routine follow up and given an acapella device. For the past two days feels like her breathing is worsening. Denies extra sputum but states she can hear it rattling in her chest, increased cough which she states is worsening, wheezing, and shortness of breath. All worse than her baseline. Using her albuterol every 4 hours even at night time. Prior to use was using every 6 hours and not needing at night. Also feeling weak, tired, headaches, Last steroid usage was months ago and last antibiotic over 6 months ago. Reports today that she has had improvement and is less wheezy but still using albuterol every four hours including at night. Also with moist cough and shortness of breath. Has appointment with rug sample beveler in 2 weeks which was as early as she could get in. Currently smoking 1/2 ppd. Denies fever, chills, chest pain, edema, or palpitations. Being worked up for syncope. Left hernandez stil painful from last episode of syncope while in xray 2 months ago. Hit the hernandez on a step. 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 Denies edema, redness, deformity, or loss of sensation. REVIEW OF SYSTEMS See HPI PAST MEDICAL HISTORY 06/11/2006: Anorexia nervosa Comment: Stable; treated in past No date: Anxiety No date: Asthma 02/13/2020: 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 06/11/2006: Bulimia nervosa Comment: Stable, treated in past No date: Cancer (HCC) No date: Chest pain 07/24/2023: Cholelithiasis No date: Chronic obstructive pulmonary disease (COPD) ([facility]) No date: Emphysema lung (HCC) No date: GERD (gastroesophageal reflux disease) No date: H. pylori infection Comment: cronic 02/13/2020: Hiatal hernia Comment: small 06/11/2006: HISTORY OF CANCER OF UTERUS Comment: 2004, Hysterectomy - complete 07/10/2023: History of COVID-19 No date: Internal hemorrhoids No date: Lung disease No date: Migraines 07/10/2023: Overweight (BMI 25.0-29.9) No date: Snoring 06/11/2006: Tobacco use disorder Comment: Quit 09/2015. No date: Unspecified asthma(493.90) Comment: Childhood diagnosis. PAST SURGICAL HISTORY 1998: APPENDECTOMY 01/12/2023: COLONOSCOPY Comment: no specimens, next colonoscopy 202903/13/2017: EGD WITH BIOPSY(S) Comment: Dr. Shook 02/13/2020: EGD WITH BIOPSY(S) Comment: small hiatal hernia; Duggan's without dysplasia; Dr. Montoya 10/06/2021: EGD WITH BIOPSY(S) Comment: H. pylori +; Duggan's without dysplasia; Dr. Riggs 09/12/2022: EGD WITH BIOPSY(S) Comment: neg for H. pylori; Dr. Riggs 07/24/2023: LAPS SURG CHOLECYSTECTOMY W/CHOLANGIOGRAPHY 2003: PAST SURGICAL HISTORY OF Comment: Lymph Node Bx 1999 2004: TOTAL ABDOMINAL HYSTERECT W/WO RMVL TUBE OVARY Comment: and BSO - pelvic pain/benign ALLERGIES Penicillins MEDICATIONS predniSONE (DELTASONE) 10 mg tablet Take 4 tabs daily for 3 days, then 2 tabs daily for 3 days, then 1 tab daily for 3 days with food. doxycycline (VIBRA-TABS) 100 mg tablet Take 1 tablet by mouth two times a day for 10 days. EPINEPHrine (EPIPEN) 0.3 mg/0.3 mL auto-injector Inject intramuscularly. multivit with minerals/lutein (MULTIVITAMIN 50 PLUS ORAL) Take by mouth. amitriptyline (ELAVIL) 100 mg tablet take 1 tablet by mouth once daily at bedtime IBSRELA 50 mg tablet TAKE 1 TABLET BY MOUTH TWICE A DAY 10 MINUTES BEFORE EATING promethazine (PHENERGAN) 25 mg tablet Take 1 tablet by mouth every 8 hours as needed (for nausea). fluticasone (FLONASE) 50 mcg/actuation nasal spray Use 2 Sprays in each nostril once daily. Rinse mouth after use. ibuprofen (MOTRIN) 800 mg tablet Take 1 tablet by mouth every 8 hours as needed for pain. diclofenac (VOLTAREN) 1 % topical gel Apply 2 g to affected area twice daily. FASENRA PEN 30 mg/mL auto-injector Dexlansoprazole (DEXILANT) 60 mg CpDM Take 60 mg by mouth once daily. magnesium hydroxide (MILK OF MAGNESIA) 400 mg/5 mL suspension Take 15 mL by mouth once daily as needed for constipation. bisacodyl (DULCOLAX, BISACODYL,) 10 mg supp 1 Suppository by RECTAL route once daily as needed for constipation. famotidine (PEPCID) 40 mg tablet Take 1 tablet by mouth once daily as needed. MUCUS RELIEF ER 600 mg 12 hr tablet Take 1,200 mg by mouth twice daily. montelukast (SINGULAIR) 10 mg tablet Take 1 tablet by mouth daily at bedtime. swgckiwnuta-hylebuhkg-kornpqvv (TRELEGY ELLIPTA) 200-62.5-25 mcg inhalation powder Inhale (more content not included)...[facility]08-15-2024 History of Present illness Narrative* Laura Hernandez APRN.DUMPER - 02/21/2024 8:29 AM EDT CC: Patient presents with: Recheck: 1 week follow up HPI Jane Steinberg is a 53 year old female who presents today for COPD exacerbation follow up. Was seen a 1 week ago and doxy and prednisone ordered. CXR resulted without concern. Last visit: COPD Exacerbation: Last saw pulmonology 1 week ago for routine follow up and given an acapella device. For the past two days feels like her breathing is worsening. Denies extra sputum but states she can hear it rattling in her chest, increased cough which she states is worsening, wheezing, and shortness of breath. All worse than her baseline. Using her albuterol every 4 hours even atnight time. Prior to use was using every 6 hours and not needing at night. Also feeling weak, tired, headaches, Last steroid usage was months ago and last antibiotic over 6 months ago. Reports today that she has had improvement and is less wheezy but still using albuterol every four hours including at night. Also with moist cough and shortness of breath. Has appointment with rug sample beveler in 2 weeks which was as early as she could get in. Currently smoking 1/2 ppd. Denies fever, chills, chest pain, edema, or palpitations. Being worked up for syncope. Left hernandez stil painful from last episode of syncope while in xray 2 months ago. Hit the hernandez on a step. 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 Denies edema, redness, deformity, or loss of sensation. REVIEW OF SYSTEMS See HPI PAST MEDICAL HISTORY 06/11/2006: Anorexia nervosa Comment: Stable; treated in past No date: Anxiety No date: Asthma 02/13/2020: 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 06/11/2006: Bulimia nervosa Comment: Stable, treated in past No date: Cancer (HCC) No date: Chest pain 07/24/2023: Cholelithiasis No date: Chronic obstructive pulmonary disease (COPD) ([facility]) No date: Emphysema lung ([facility]) No date: GERD (gastroesophageal reflux disease) No date: H. pylori infection Comment: cronic 02/13/2020: Hiatal hernia Comment: small 06/11/2006: HISTORY OF CANCER OF UTERUS Comment: 2004, Hysterectomy - complete 07/10/2023: History of COVID-19 No date: Internal hemorrhoids No date: Lung disease No date: Migraines 07/10/2023: Overweight (BMI 25.0-29.9) No date: Snoring 06/11/2006: Tobacco use disorder Comment: Quit 09/2015. No date: Unspecified asthma(493.90) Comment: Childhood diagnosis. PAST SURGICAL HISTORY 1998: APPENDECTOMY 01/12/2023: COLONOSCOPY Comment: no specimens, next colonoscopy 202903/13/2017: EGD WITH BIOPSY(S) Comment: Dr. Shook 02/13/2020: EGD WITH BIOPSY(S) Comment: small hiatal hernia; Duggan's without dysplasia; Dr. Montoya 10/06/2021: EGD WITH BIOPSY(S) Comment: H. pylori +; Duggan's without dysplasia; Dr. Riggs 09/12/2022: EGD WITH BIOPSY(S) Comment: neg for H. pylori; Dr. Riggs 07/24/2023: LAPS SURG CHOLECYSTECTOMY W/CHOLANGIOGRAPHY 2004: PAST SURGICAL HISTORY OF Comment: Lymph Node Bx 1999 2004: TOTAL ABDOMINAL HYSTERECT W/WO RMVL TUBE OVARY Comment: and BSO - pelvic pain/benign ALLERGIES Penicillins MEDICATIONS predniSONE (DELTASONE) 10 mg tablet Take 4 tabs daily for 3 days, then 2 tabs daily for 3 days, then 1 tab daily for 3 days with food. doxycycline (VIBRA-TABS) 100 mg tablet Take 1 tablet by mouth two times a day for 10 days. EPINEPHrine (EPIPEN) 0.3 mg/0.3 mL auto-injector Inject intramuscularly. multivit with minerals/lutein (MULTIVITAMIN 50 PLUS ORAL) Take by mouth. amitriptyline (ELAVIL) 100 mg tablet take 1 tablet by mouth once daily at bedtime IBSRELA 50 mg tablet TAKE 1 TABLET BY MOUTH TWICE A DAY 10 MINUTES BEFORE EATING promethazine (PHENERGAN) 25 mg tablet Take 1 tablet by mouth every 8 hours as needed (for nausea). fluticasone (FLONASE) 50 mcg/actuation nasal spray Use 2 Sprays in each nostril once daily. Rinse mouth after use. ibuprofen (MOTRIN) 800 mg tablet Take 1 tablet by mouth every 8 hours as needed for pain. diclofenac (VOLTAREN) 1 % topical gel Apply 2 g to affected area twice daily. FASENRA PEN 30 mg/mL auto-injector Dexlansoprazole (DEXILANT) 60 mg CpDM Take 60 mg by mouth once daily. magnesium hydroxide (MILK OF MAGNESIA) 400 mg/5 mL suspension Take 15 mL by mouth once daily as needed for constipation. bisacodyl (DULCOLAX, BISACODYL,) 10 mg supp 1 Suppository by RECTAL route once daily as needed for constipation. famotidine (PEPCID) 40 mg tablet Take 1 tablet by mouth once daily as needed. MUCUS RELIEF ER 600 mg 12 hr tablet Take 1,200 mg by mouth twice daily. montelukast (SINGULAIR) 10 mg tablet Take 1 tablet by mouth daily at bedtime. oddaibwpxtj-imrkixtjg-omrzrmes (TRELEGY ELLIPTA) 200-62.5-25 mcg inhalation powder Inhale as instructed. albuterol HFA (VENTOLIN HFA) 90 mcg/actuation inhaler Inhale 2 Puffs as instructed every 4 hours asneeded for wheezing/shortness of breath. L. acidophilus-L. rhamnosus 15 billion cell cap Take 1 capsule by mouth once daily. FLORAJEN WOMEN.If on antibiotic, take at least 1-2 hours before or after antibiotic. KEEP REFRIGERATED ergocalciferol 50,000 unit capsule (VITAMIN D2, DRISDOL) Take 1 capsule by mouth one time a week. albuterol (PROVENTIL) 2.5 mg /3 mL (0.083 %) nebulizer solution Use 3 mL via nebulizer every 6 hours as needed. COMPACT SPACE CHAMBER as directed. ipratropium-albuterol (DUONEB) 0.5 mg-3 mg(2.5 mg base)/3 mL nebu Inhale 3 mL as instructed every 4hours as needed. PULSE OXIMETER CONTEC 1 Each as needed. Comp Stocking,Knee,Regular,Med misc 2 Each once daily. loratadine (CLARITIN) 10 mg tablet Take 1 tablet by mouth once daily. FAMILY HISTORY Problem Relation Age of Onset Hypertension Mother Heart Mother Eczema Mother other (AAA) Mother other (Fibromyalgia) Mother Alcohol/Drug Father Alcohol Cancer Father lung Colon Cancer Father Hypertension Sister Asthma Sister other (Migraines) Sister other (Gout) Sister other (Fibromyalgia) Sister Cancer Sister 32 Ovarian cancer Sister 32 Breast Cancer Maternal Aunt 2 maternal aunts. other (MICRO PHOTOGRAPHER cancer) No Family History Anesthesia Problems No Family History Blood Clots No Family History Social History Tobacco Use Smoking status: Every Day Packs/day: 0.25 Years: 29.00 Additional pack years: 0.00 Total pack years: 7.25 Types: Cigarettes Start date: 11/17/1986 Last attempt to quit: 11/23/2021 Years since quittin.2 Smokeless tobacco: Never Vaping Use Vaping Use: Never used Substance Use Topics Alcohol use: Not Currently Comment: Rarely Drug use: No PHYSICAL EXAM BP 128/80 Pulse 88 Resp 16 Wt 56.2 kg (124 lb) SpO2 96% BMI 22.39 kg/m General Appearance: well appearing, in no acute distress, alert Pysch: mood and affect broad and appropriate Eyes: conjunctiva pink and moist, no icterus, sclera white, non-injected Lungs: Lungs with faint expiratory wheezes scattered. No rhonchi, rales. Heart: RRR without murmur, gallop, or rubs. No ectopy BLE Extremities: No deformities, edema, skin discoloration, clubbing or cyanosis. Good capillary refill. Pulses palpable. Left lower hernandez tender to touch without deformity, edema, or discoloration. Health maintenance reviewed with patient: Anxiety Screening Never done DTaP,Tdap,Td Vaccine(6 - Tdap) due on 04/11/2024 Hepatitis B Vaccine(1 of 3 - 19+ 3-dose series) due on 04/11/2024 Shingrix Vaccine(1 of 2) due on 04/11/2024 Pneumococcal Vaccine(2 of 2 - PCV) due on 04/11/2024 Influenza Vaccine(1) due on 03/09/2024 Mammogram Screening due on 10/08/2024 Cervical Cancer Screening due on 10/24/2024 Annual PCP Team Chronic Disease Visit due on 02/13/2025 Diabetes Screening due on 01/15/2027 Lipid Screening due on 11/15/2027 Colorectal Cancer Screening due on 01/12/2033 Alpha-1 Antitrypsin Deficiency Screening Completed Spirometry Completed Hepatitis C Screening Completed HIV Screening Completed Covid-19 Vaccine Completed DATA REVIEWED: Most recent imaging ASSESSMENT/PLAN: 1. COPD with exacerbation (HCC) - ICD9: 491.21, ICD10: J44.1 (primary diagnosis) Finish prednisone and antibiotic as ordered at last visit. Lung sound with much improvement so no further treatment at this time. Keep upcoming appointment with pulmonology. Smoking cessation encouraged but declined at this time Follow back up for any worsening or return of symptoms. 2. Pain in left hernandez - ICD9: 729.5, ICD10: M79.662 Has been there for almost 2 months and still very tender. Possibly one bruise but will xray to evaluate for fracture. - XR TIBIA FIBULA 2V AP/LAT LEFT Prescription instructions reviewed with patient as applicable. Potential red flag symptoms discussed with the patient. Reviewed appropriate action plan to take if red flag symptoms occur. Patient agreeable to treatment plan. Laura Hernandez APRN.KACY documented [facility] History of Present illness Narrative* Mikael Stubbs, RT(R) - 02/14/2024 8:10 AM EDT Radiology Service Progress Note PATIENT NAME: Jane Steinberg DATE OF SERVICE: February 14, 2024 TIME: 8:03 AM PATIENT IDENTITY VERIFICATION COMPLETED USING TWO (2) IDENTIFIERS: Name and Date of confirmedby patient verbally. FALL SCREENING: Has the patient had 2 falls in the last year or 1 fall with injury or currently using an Ambulatory Assistive Device (Walker, Cane, Wheelchair, Crutches, etc.)? No PATIENT GENDER DATA: Female. status: : No status: NO. PATIENT RELEVANT IMPLANT DATA REVIEWED: Not Applicable PATIENT PRESENTS WITH AN IMPLANTABLE OR ATTACHED SHAREMILKER: No RADIOLOGY DEPARTMENT: General X-ray: Exam(s) Completed: Chest X-Ray PERIPHERAL IV DATA: Not applicable SIGNED BY: RT Trisha(R) February 14, 2024 8:03 AM documented in this encounterCos[facility]08-[facility]24 History of Present illness Narrative* Laura Hernandez APRN.DUMPER - 02/14/2024 7:33 AM EDT CC: Patient presents with: Recheck: Zio monitor results HPI Jane Steinberg is a 53 year old female who presents today for follow up on syncope to review results. COPD Exacerbation: Last saw pulmonology 1 week ago for routine follow up and given an acapella device. For the past two days feels like her breathing is worsening. Denies extra sputum but states she can hear it rattling in her chest, increased cough which she states is worsening, wheezing, and shortness of breath. All worse than her baseline. Using her albuterol every 4 hours even at night time. Prior to use was using every 6 hours and not needing at night. Also feeling weak, tired, headaches, Last steroid usage was months ago and last antibiotic over 6 months ago. Denies fever, chills, chest pain, palpitations, dizziness, sore throat, N/V/D, sinus congestion. Noknown sick contacts but [place] the weekend at the beach. Syncope: Has not occurred since last visit. As long as she sits down when she feels funny she is fine and it passes quickly. States she feels like she is falling backwards. Zio patch and Echo previously unremarkable. Has upcoming carotid US, tilt table, and consult to cardiology. REVIEW OF SYSTEMS See HPI PAST MEDICAL HISTORY 06/11/2006: Anorexia nervosa Comment: Stable; treated in past No date: Anxiety No date: Asthma 02/13/2020: 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 06/11/2006: Bulimia nervosa Comment: Stable, treated in past No date: Cancer (HCC) No date: Chest pain 07/24/2023: Cholelithiasis No date: Chronic obstructive pulmonary disease (COPD) (HCC) No date: Emphysema lung (HCC) No date: GERD (gastroesophageal reflux disease) No date: H. pylori infection Comment: cronic 02/13/2020: Hiatal hernia Comment: small 06/11/2006: HISTORY OF CANCER OF UTERUS Comment: 2003, Hysterectomy - complete 07/10/2023: History of COVID-19 No date: Internal hemorrhoids No date: Lung disease No date: Migraines 07/10/2023: Overweight (BMI 25.0-29.9) No date: Snoring 06/11/2006: Tobacco use disorder Comment: Quit 09/2015. No date: Unspecified asthma(493.90) Comment: Childhood diagnosis. PAST SURGICAL HISTORY 1998: APPENDECTOMY 01/12/2023: COLONOSCOPY Comment: no specimens, next colonoscopy 202903/13/2017: EGD WITH BIOPSY(S) Comment: Dr. Shook 02/13/2020: EGD WITH BIOPSY(S) Comment: small hiatal hernia; Duggan's without dysplasia; Dr. Montoya 10/06/2021: EGD WITH BIOPSY(S) Comment: H. pylori +; Duggan's without dysplasia; Dr. Riggs 09/12/2022: EGD WITH BIOPSY(S) Comment: neg for H. pylori; Dr. Riggs 07/24/2023: LAPS SURG CHOLECYSTECTOMY W/CHOLANGIOGRAPHY 2003: PAST SURGICAL HISTORY OF Comment: Lymph Node Bx 1999 2005: TOTAL ABDOMINAL HYSTERECT W/WO RMVL TUBE OVARY Comment: and BSO - pelvic pain/benign ALLERGIES Penicillins MEDICATIONS EPINEPHrine (EPIPEN) 0.3 mg/0.3 mL auto-injector Inject intramuscularly. multivit with minerals/lutein (MULTIVITAMIN 50 PLUS ORAL) Take by mouth. amitriptyline (ELAVIL) 100 mg tablet take 1 tablet by mouth once daily at bedtime IBSRELA 50 mg tablet TAKE 1 TABLET BY MOUTH TWICE A DAY 10 MINUTES BEFORE EATING promethazine (PHENERGAN) 25 mg tablet Take 1 tablet by mouth every 8 hours as needed (for nausea). fluticasone (FLONASE) 50 mcg/actuation nasal spray Use 2 Sprays in each nostril once daily. Rinse mouth after use. ibuprofen (MOTRIN) 800 mg tablet Take 1 tablet by mouth every 8 hours as needed for pain. diclofenac (VOLTAREN) 1 % topical gel Apply 2 g to affected area twice daily. FASENRA PEN 30 mg/mL auto-injector Dexlansoprazole (DEXILANT) 60 mg CpDM Take 60 mg by mouth once daily. magnesium hydroxide (MILK OF MAGNESIA) 400 mg/5 mL suspension Take 15 mL by mouth once daily as needed for constipation. bisacodyl (DULCOLAX, BISACODYL,) 10 mg supp 1 Suppository by RECTAL route once daily as needed for constipation. famotidine (PEPCID) 40 mg tablet Take 1 tablet by mouth once daily as needed. MUCUS RELIEF ER 600 mg 12 hr tablet Take 1,200 mg by mouth twice daily. montelukast (SINGULAIR) 10 mg tablet Take 1 tablet by mouth daily at bedtime. bkrllwepgfy-geoncubcz-nwpqwhww (TRELEGY ELLIPTA) 200-62.5-25 mcg inhalation powder Inhale as instructed. albuterol HFA (VENTOLIN HFA) 90 mcg/actuation inhaler Inhale 2 Puffs as instructed every 4 hours asneeded for wheezing/shortness of breath. L. acidophilus-L. rhamnosus 15 billion cell cap Take 1 capsule by mouth once daily. FLORAJEN WOMEN.If on antibiotic, take at least 1-2 hours before or after antibiotic. KEEP REFRIGERATED ergocalciferol 50,000 unit capsule (VITAMIN D2, DRISDOL) Take 1 capsule by mouth one time a week. albuterol (PROVENTIL) 2.5 mg /3 mL (0.083 %) nebulizer solution Use 3 mL via nebulizer every 6 hours as needed. PHENYLephrine-cocoa butter (PREPARATION H,PE,CB,) 0.25-88.44 % supp 1 Suppository by RECTAL route once daily. (Patient taking differently: 1 Suppository by RECTAL route as needed.) COMPACT SPACE CHAMBER as directed. ipratropium-albuterol (DUONEB) 0.5 mg-3 mg(2.5 mg base)/3 mL nebu Inhale 3 mL as instructed every 4hours as needed. PULSE OXIMETER CONTEC 1 Each as needed. Comp Stocking,Knee,Regular,Med misc 2 Each once daily. loratadine (CLARITIN) 10 mg tablet Take 1 tablet by mouth once daily. FAMILY HISTORY Problem Relation Age of Onset Hypertension Mother Heart Mother Eczema Mother other (AAA) Mother other (Fibromyalgia) Mother Alcohol/Drug Father Alcohol Cancer Father lung Colon Cancer Father Hypertension Sister Asthma Sister other (Migraines) Sister other (Gout) Sister other (Fibromyalgia) Sister Cancer Sister 32 Ovarian cancer Sister 32 Breast Cancer Maternal Aunt 2 maternal aunts. other (MICRO PHOTOGRAPHER cancer) No Family History Anesthesia Problems No Family History Blood Clots No Family History Social History Tobacco Use Smoking status: Every Day Packs/day: 0.25 Years: 29.00 Additional pack years: 0.00 Total pack years: 7.25 Types: Cigarettes Start date: 11/17/1986 Last attempt to quit: 11/23/2021 Years since quittin.2 Smokeless tobacco: Never Vaping Use Vaping Use: Never used Substance Use Topics Alcohol use: Not Currently Comment: Rarely Drug use: No PHYSICAL EXAM BP 120/80 Pulse 90 Resp 16 Wt 56.2 kg (124 lb) SpO2 97% BMI 22.39 kg/m General Appearance: in no acute distress, alert, ill and tired appearing Eyes: conjunctiva pink and moist, no icterus, sclera white, non-injected Lungs: expiratory and inspiratory wheezes throughout, diminished tight respiratory sounds to bilateral bases. Heart: RRR without murmur, gallop, or rubs. No ectopy Health maintenance reviewed with patient: Anxiety Screening Never done DTaP,Tdap,Td Vaccine(6 - Tdap) due on 04/11/2024 Hepatitis B Vaccine(1 of 3 - 19+ 3-dose series) due on 04/11/2024 Shingrix Vaccine(1 of 2) due on 04/11/2024 Pneumococcal Vaccine(2 of 2 - PCV) due on 04/11/2024 Influenza Vaccine(1) due on 03/09/2024 Mammogram Screening due on 10/08/2024 Cervical Cancer Screening due on 10/24/2024 Annual PCP Team Chronic Disease Visit due on 01/15/2025 Diabetes Screening due on 01/15/2027 Lipid Screening due on 11/15/2027 Colorectal Cancer Screening due on 01/12/2033 Alpha-1 Antitrypsin Deficiency Screening Completed Spirometry Completed Hepatitis C Screening Completed HIV Screening Completed Covid-19 Vaccine Completed HPV Vaccine Aged Out DATA REVIEWED: Most recent imaging ASSESSMENT/PLAN: 1. COPD with exacerbation (HCC) - ICD9: 491.21, ICD10: J44.1 (primary diagnosis) With increased symptoms including moist cough, will treat with antibiotic along with steroid taper. - worsening or new symptoms, go to ER - follow up in 1 week with either me or pulmonology. - COVID & INFLUENZA A/B & RSV NAAT, ROUTINE - XR CHEST 2V FRONTAL/LAT 2. Shortness of breath - ICD9: 786.05, ICD10: R06.02 As above - COVID & INFLUENZA A/B & RSV NAAT, ROUTINE - XR CHEST 2V FRONTAL/LAT 3. Headaches - ICD9: 784.0, ICD10: R51.9 See #1 - COVID & INFLUENZA A/B & RSV NAAT, ROUTINE - XR CHEST 2V FRONTAL/LAT 4. Increased sputum production - ICD9: 786.4, ICD10: R09.3 See #1 - COVID & INFLUENZA A/B & RSV NAAT, ROUTINE - XR CHEST 2V FRONTAL/LAT 5. Syncope, unspecified syncope type - ICD9: 780.2, ICD10: R55 No further episodes, Zio unremarkable Continue with scheduled carotid US and tilt table For further episodes or any urgent concern, go to ER Prescription instructions reviewed with patient as applicable. Potential red flag symptoms discussed with the patient. Reviewed appropriate action plan to take if red flag symptoms occur. Patient agreeable to treatment plan. Laura Hernandez APRN.CNP documented in this encounterCos[facility]07-10-[facility] History of Present illness Narrative* Latasha Salamanca MA - 01/16/2024 8:47 AM EDT EVENT MONITOR DISPOSABLE PATCH INSTRUCTIONS Patient Name: Jane Steinberg Clinic Number: [id number] Skin prepped and cleansed with alcohol Patch secured to prepped area Monitor Activated Serial #: [id number] Patient Instructed: Prescribed order timeframe Bathing guidelines Usage of event button and diary documentation Return of monitor at the end of prescribed order Call with problems [phone] or [phone]. [phone] Patient expresses a good understanding of instructions Latasha Salamanca MA * Laura Hernandez APRN.DUMPER - 01/16/2024 7:52 AM EDT CC: Patient presents with: Recheck: Follow up HPI Jane Steinberg is a 53 year old female who presents today for routine follow up but experiencingsyncope. For the past month has been having syncopal episodes. Has occurred 5 or 6 times and happens when she is standing. Will get woozy prior to passing out. If able to sit down she does not completely pass out but feelings of shakiness and wooziness will last a few minutes. If unable to sit down, she will wake up on the floor and thinks its a after few minutes. One episode was witnessed by respiratory care technician here when getting shoulder xray. Echo completed 6 weeks ago and unremarkable. Denies recent illness, change in chronic shortness of breath/cough/wheezing, chest pain. palpitations, headaches, edema, weakness, or numbness. Has never had this previously. Also needs referral to Dr. Hamilton for GI due to insurance coverage changes for her chronic unchanged symptoms of GERD, Barretts esophagus, IBS, and hiatal hernia. REVIEW OF SYSTEMS See HPI PAST MEDICAL HISTORY Diagnosis Date Anorexia nervosa 06/11/2006 Stable; treated in past Anxiety Asthma 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 02/13/2020 Bulimia nervosa 06/11/2006 Stable, treated in past Cancer (HCC) Chest pain Cholelithiasis 07/24/2023 Chronic obstructive pulmonary disease (COPD) (HCC) Emphysema lung (HCC) GERD (gastroesophageal reflux disease) H. pylori infection cronic Hiatal hernia 02/13/2020 small HISTORY OF CANCER OF UTERUS 06/11/2006 2004, Hysterectomy - complete History of COVID-19 07/10/2023 Internal hemorrhoids Lung disease Migraines Overweight (BMI 25.0-29.9) 07/10/2023 Snoring Tobacco use disorder 06/11/2006 Quit 09/2015. Unspecified asthma(493.90) Childhood diagnosis. PAST SURGICAL HISTORY Procedure Laterality Date APPENDECTOMY 1998 COLONOSCOPY 01/12/2023 no specimens, next colonoscopy 2029 EGD WITH BIOPSY(S) 03/13/2017 Dr. Shook EGD WITH BIOPSY(S) 02/13/2020 small hiatal hernia; Duggan's without dysplasia; Dr. Montoya EGD WITH BIOPSY(S) 10/06/2021 H. pylori +; Duggan's without dysplasia; Dr. Riggs EGD WITH BIOPSY(S) 09/12/2022 neg for H. pylori; Dr. Riggs LAPS SURG CHOLECYSTECTOMY W/CHOLANGIOGRAPHY 07/24/2023 PAST SURGICAL HISTORY OF 2003 Lymph Node Bx 1999 TOTAL ABDOMINAL HYSTERECT W/WO RMVL TUBE OVARY 2004 and BSO - pelvic pain/benign ALLERGIES Penicillins MEDICATIONS EPINEPHrine (EPIPEN) 0.3 mg/0.3 mL auto-injector Inject intramuscularly. multivit with minerals/lutein (MULTIVITAMIN 50 PLUS ORAL) Take by mouth. amitriptyline (ELAVIL) 100 mg tablet take 1 tablet by mouth once daily at bedtime IBSRELA 50 mg tablet TAKE 1 TABLET BY MOUTH TWICE A DAY 10 MINUTES BEFORE EATING promethazine (PHENERGAN) 25 mg tablet Take 1 tablet by mouth every 8 hours as needed (for nausea). fluticasone (FLONASE) 50 mcg/actuation nasal spray Use 2 Sprays in each nostril once daily. Rinse mouth after use. ibuprofen (MOTRIN) 800 mg tablet Take 1 tablet by mouth every 8 hours as needed for pain. diclofenac (VOLTAREN) 1 % topical gel Apply 2 g to affected area twice daily. FASENRA PEN 30 mg/mL auto-injector Dexlansoprazole (DEXILANT) 60 mg CpDM Take 60 mg by mouth once daily. magnesium hydroxide (MILK OF MAGNESIA) 400 mg/5 mL suspension Take 15 mL by mouth once daily as needed for constipation. bisacodyl (DULCOLAX, BISACODYL,) 10 mg supp 1 Suppository by RECTAL route once daily as needed for constipation. famotidine (PEPCID) 40 mg tablet Take 1 tablet by mouth once daily as needed. MUCUS RELIEF ER 600 mg 12 hr tablet Take 1,200 mg by mouth twice daily. montelukast (SINGULAIR) 10 mg tablet Take 1 tablet by mouth daily at bedtime. lynqasstjtm-hiytondho-uhqeppxl (TRELEGY ELLIPTA) 200-62.5-25 mcg inhalation powder Inhale as instructed. albuterol HFA (VENTOLIN HFA) 90 mcg/actuation inhaler Inhale 2 Puffs as instructed every 4 hours asneeded for wheezing/shortness of breath. L. acidophilus-L. rhamnosus 15 billion cell cap Take 1 capsule by mouth once daily. FLORAJEN WOMEN.If on antibiotic, take at least 1-2 hours before or after antibiotic. KEEP REFRIGERATED ergocalciferol 50,000 unit capsule (VITAMIN D2, DRISDOL) Take 1 capsule by mouth one time a week. albuterol (PROVENTIL) 2.5 mg /3 mL (0.083 %) nebulizer solution Use 3 mL via nebulizer every 6 hours as needed. PHENYLephrine-cocoa butter (PREPARATION H,PE,CB,) 0.25-88.44 % supp 1 Suppository by RECTAL route once daily. (Patient taking differently: 1 Suppository by RECTAL route as needed.) COMPACT SPACE CHAMBER as directed. ipratropium-albuterol (DUONEB) 0.5 mg-3 mg(2.5 mg base)/3 mL nebu Inhale 3 mL as instructed every 4hours as needed. PULSE OXIMETER CONTEC 1 Each as needed. Comp Stocking,Knee,Regular,Med misc 2 Each once daily. loratadine (CLARITIN) 10 mg tablet Take 1 tablet by mouth once daily. FAMILY HISTORY Problem Relation Age of Onset Hypertension Mother Heart Mother Eczema Mother other (AAA) Mother other (Fibromyalgia) Mother Alcohol/Drug Father Alcohol Cancer Father lung Colon Cancer Father Hypertension Sister Asthma Sister other (Migraines) Sister other (Gout) Sister other (Fibromyalgia) Sister Cancer Sister 32 Ovarian cancer Sister 32 Breast Cancer Maternal Aunt 2 maternal aunts. other (MICRO PHOTOGRAPHER cancer) No Family History Anesthesia Problems No Family History Blood Clots No Family History Social History Tobacco Use Smoking status: Every Day Packs/day: 0.25 Years: 29.00 Additional pack years: 0.00 Total pack years: 7.25 Types: Cigarettes Start date: 11/17/1986 Last attempt to quit: 11/23/2021 Years since quittin.1 Smokeless tobacco: Never Vaping Use Vaping Use: Never used Substance Use Topics Alcohol use: Not Currently Comment: Rarely Drug use: No PHYSICAL EXAM BP 120/79 Pulse 91 Resp 16 Wt 56.7 kg (125 lb) SpO2 96% BMI 22.57 kg/m General Appearance: well appearing, in no acute distress, alert Pysch: mood and affect broad and appropriate Skin: Skin color, texture, turgor normal for age; Eyes: PERRLA, EOM's intact, conjunctiva pink and moist, no icterus, sclera white, non-injected Neck: Thyroid normal size and symmetric without palpable nodules, No bruits, Neck supple, No adenopathy Lymph nodes: No cervical lymphadenopathy and No supraclavicular lymphadenopathy Lungs: Lungs clear to auscultation. No wheezing, rhonchi, rales. Heart: RRR without murmur, gallop, or rubs. No ectopy Neurological: Gait normal. Reflexes normal and symmetric. Sensation intact., speech normal, mental status intact, gait, including heel, toe, and tandem walking normal, Romberg negative, muscle tone normal, muscle strength normal Health maintenance reviewed with patient: DTaP,Tdap,Td Vaccine(6 - Tdap) due on 04/11/2024 Hepatitis B Vaccine(1 of 3 - 19+ 3-dose series) due on 04/11/2024 Shingrix Vaccine(1 of 2) due on 04/11/2024 Pneumococcal Vaccine(2 of 2 - PCV) due on 04/11/2024 Influenza Vaccine(1) due on 03/09/2024 Mammogram Screening due on 10/08/2024 Cervical Cancer Screening due on 10/24/2024 Annual PCP Team Chronic Disease Visit due on 12/27/2024 Diabetes Screening due on 10/31/2026 Lipid Screening due on 11/15/2027 Colorectal Cancer Screening due on 01/12/2033 Alpha-1 Antitrypsin Deficiency Screening Completed Spirometry Completed Hepatitis C Screening Completed HIV Screening Completed Covid-19 Vaccine Completed HPV Vaccine Aged Out DATA REVIEWED: No new labs EKG Interpretation: RHYTHM: Normal sinus rhythm at 83 beats per minute with biatrial enlargement AXIS: Normal axis INTERVALS: Normal DC interval QRS COMPLEX: Normal ST SEGMENT: Normal ST-T segments QT INTERVAL: Normal COMPARED WITH PRIOR: changed previous with LA enlargement (not found on ECHO) and this time with bilateral atrial enlargement ASSESSMENT/PLAN: 1. Syncope, unspecified syncope type - ICD9: 780.2, ICD10: R55 (primary diagnosis) Unsure on cause - neurologic exam completely normal and no other concerns at this time. Will evaluate for cardiac cause, if none, would recommend Brain imaging and neuro consult - orthostatic BP in office negative - ECG COMPLETE - OUTSIDE VENDOR CARDIAC OUTPATIENT EXTENDED RHYTHM RECORDING (WITHOUT TELEMETRY) - CONSULT TO CARDIOLOGY - TILT TABLE EVALUATION - US CAROTID ARTERIES [facility] - COMPREHENSIVE METABOLIC PANEL - COMPLETE BLOOD COUNT AND DIFFERENTIAL - MAGNESIUM - THYROID STIMULATING HORMONE - T4 FREE/FREE THYROXINE 2. Hiatal hernia - ICD9: 553.3, ICD10: K44.9 No change in this chronic condition, needs consult for provider that is covered by insurance. - CONSULT TO GASTROENTEROLOGY 3. 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 - ICD9: 530.85, ICD10: K22.70 As above - CONSULT TO GASTROENTEROLOGY 4. Gastroesophageal reflux disease with esophagitis, unspecified whether hemorrhage - ICD9: 530.11,ICD10: K21.00 See #2 - CONSULT TO GASTROENTEROLOGY 5. Irritable bowel syndrome with constipation - ICD9: 564.1, ICD10: K58.1 See #2 - CONSULT TO GASTROENTEROLOGY Prescription instructions reviewed with patient as applicable. Potential red flag symptoms discussed with the patient. Reviewed appropriate action plan to take if red flag symptoms occur. Patient agreeable to treatment plan. Laura Hernandez APRN.CNP documented in this encounterCos[facility] Telephone encounter Note * Telephone Encounter - Latasha Salamanca MA - 2023 3:25 PM EDT Patient stopped in to let provider know that when in radiology she passed out. She did not fall or hit head, asked patient if she had ate that day or was feeling poorly, patient denied any warning. Patient states it is happening maybe 2 times a week. Patient states she feels fine afterwards just maybe a little shaky. Advised patient to to to ED if happens again. [facility]06[facility] History of Present illness Narrative* Michelle Garcia RT(R) - 2023 2:30 PM EDT Radiology Service Progress Note PATIENT NAME: Jane Steinberg DATE OF SERVICE: 2023 TIME: 2:36 PM PATIENT IDENTITY VERIFICATION COMPLETED USING TWO (2) IDENTIFIERS: Name and Date of confirmedby patient verbally. FALL SCREENING: Has the patient had 2 falls in the last year or 1 fall with injury or currently using an Ambulatory Assistive Device (Walker, Cane, Wheelchair, Crutches, etc.)? No PATIENT GENDER DATA: Female. status: : No status: NO. PATIENT RELEVANT IMPLANT DATA REVIEWED: Yes PATIENT PRESENTS WITH AN IMPLANTABLE OR ATTACHED SHAREMILKER: No RADIOLOGY DEPARTMENT: General X-ray: Exam(s) Completed: Spine X-Ray(s): Cervical AP / LAT / FLEX-EXT Lower Extremity X-Ray(s): Ankle, Right Upper Extremity X-Ray(s): Shoulder, AP / TRUE AP / AXILLARY bilateral PERIPHERAL IV DATA: Not applicable SIGNED BY: RT Balwinder(R) 2023 2:36 PM documented in this encounterCosho[facility]06-21-[facility] History of Present illness Narrative* Laura Hernandez APRN.DUMPER - 2023 9:57 AM EDT CC: Patient presents with: Recheck: Follow up, lump under arm. R foot pain HPI Jane Steinberg is a 52 year old female who presents today for foot pain and reoccurrence of painand lumps to axillary. Dropped a 2x4 onto her right foot/ ankle 2 weeks ago. Had the board above her head before it was dropped. Initially after injury, had open wound to ankle region, large amount of edema, bruising and inability to bear weight on it . After a week she was able to start putting weight on it but still istender and very painful with extension of ankle joint. Wound has healed and no further edema or bruising. With extension, pain is very sharp to entire ankle and resolves with relaxing the ankle. Has been taking ibuprofen which helps dull the pain. Denies weakness or instability at this time. Had dropped the board for ongoing axillary pain that causes her arms to get numb and tingly. Had her neck flexed with head back during this. Also will get intermittent lumps to axillary region. Hasseen multiple providers and been worked up for this with negative US, neg mammogram, normal EMG. Was given steroids and even doxy at one point but no improvement. REVIEW OF SYSTEMS See HPI PAST MEDICAL HISTORY Diagnosis Date Anorexia nervosa 06/11/2006 Stable; treated in past Anxiety Asthma 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 02/13/2020 Bulimia nervosa 06/11/2006 Stable, treated in past Cancer (HCC) Chest pain Cholelithiasis 07/24/2023 Chronic obstructive pulmonary disease (COPD) (HCC) Emphysema lung (HCC) GERD (gastroesophageal reflux disease) H. pylori infection cronic Hiatal hernia 02/13/2020 small HISTORY OF CANCER OF UTERUS 06/11/2006 2004, Hysterectomy - complete History of COVID-19 07/10/2023 Internal hemorrhoids Lung disease Migraines Overweight (BMI 25.0-29.9) 07/10/2023 Snoring Tobacco use disorder 06/11/2006 Quit 09/2015. Unspecified asthma(493.90) Childhood diagnosis. PAST SURGICAL HISTORY Procedure Laterality Date APPENDECTOMY 1998 COLONOSCOPY 01/12/2023 no specimens, next colonoscopy 2029 EGD WITH BIOPSY(S) 03/13/2017 Dr. Shook EGD WITH BIOPSY(S) 02/13/2020 small hiatal hernia; Duggan's without dysplasia; Dr. Montoya EGD WITH BIOPSY(S) 10/06/2021 H. pylori +; Duggan's without dysplasia; Dr. Riggs EGD WITH BIOPSY(S) 09/12/2022 neg for H. pylori; Dr. Riggs LAPS SURG CHOLECYSTECTOMY W/CHOLANGIOGRAPHY 07/24/2023 PAST SURGICAL HISTORY OF 2004 Lymph Node Bx 1999 TOTAL ABDOMINAL HYSTERECT W/WO RMVL TUBE OVARY 2005 and BSO - pelvic pain/benign ALLERGIES Penicillins MEDICATIONS EPINEPHrine (EPIPEN) 0.3 mg/0.3 mL auto-injector Inject intramuscularly. multivit with minerals/lutein (MULTIVITAMIN 50 PLUS ORAL) Take by mouth. amitriptyline (ELAVIL) 100 mg tablet take 1 tablet by mouth once daily at bedtime IBSRELA 50 mg tablet TAKE 1 TABLET BY MOUTH TWICE A DAY 10 MINUTES BEFORE EATING promethazine (PHENERGAN) 25 mg tablet Take 1 tablet by mouth every 8 hours as needed (for nausea). fluticasone (FLONASE) 50 mcg/actuation nasal spray Use 2 Sprays in each nostril once daily. Rinse mouth after use. ibuprofen (MOTRIN) 800 mg tablet Take 1 tablet by mouth every 8 hours as needed for pain. diclofenac (VOLTAREN) 1 % topical gel Apply 2 g to affected area twice daily. FASENRA PEN 30 mg/mL auto-injector Dexlansoprazole (DEXILANT) 60 mg CpDM Take 60 mg by mouth once daily. magnesium hydroxide (MILK OF MAGNESIA) 400 mg/5 mL suspension Take 15 mL by mouth once daily as needed for constipation. bisacodyl (DULCOLAX, BISACODYL,) 10 mg supp 1 Suppository by RECTAL route once daily as needed for constipation. famotidine (PEPCID) 40 mg tablet Take 1 tablet by mouth once daily as needed. MUCUS RELIEF ER 600 mg 12 hr tablet Take 1,200 mg by mouth twice daily. montelukast (SINGULAIR) 10 mg tablet Take 1 tablet by mouth daily at bedtime. cwivcaglsnm-lkfltufte-pkbwrksc (TRELEGY ELLIPTA) 200-62.5-25 mcg inhalation powder Inhale as instructed. albuterol HFA (VENTOLIN HFA) 90 mcg/actuation inhaler Inhale 2 Puffs as instructed every 4 hours asneeded for wheezing/shortness of breath. L. acidophilus-L. rhamnosus 15 billion cell cap Take 1 capsule by mouth once daily. FLORAJEN WOMEN.If on antibiotic, take at least 1-2 hours before or after antibiotic. KEEP REFRIGERATED ergocalciferol 50,000 unit capsule (VITAMIN D2, DRISDOL) Take 1 capsule by mouth one time a week. albuterol (PROVENTIL) 2.5 mg /3 mL (0.083 %) nebulizer solution Use 3 mL via nebulizer every 6 hours as needed. PHENYLephrine-cocoa butter (PREPARATION H,PE,CB,) 0.25-88.44 % supp 1 Suppository by RECTAL route once daily. (Patient taking differently: 1 Suppository by RECTAL route as needed.) COMPACT SPACE CHAMBER as directed. ipratropium-albuterol (DUONEB) 0.5 mg-3 mg(2.5 mg base)/3 mL nebu Inhale 3 mL as instructed every 4hours as needed. PULSE OXIMETER CONTEC 1 Each as needed. Comp Stocking,Knee,Regular,Med misc 2 Each once daily. loratadine (CLARITIN) 10 mg tablet Take 1 tablet by mouth once daily. FAMILY HISTORY Problem Relation Age of Onset Hypertension Mother Heart Mother Eczema Mother other (AAA) Mother other (Fibromyalgia) Mother Alcohol/Drug Father Alcohol Cancer Father lung Colon Cancer Father Hypertension Sister Asthma Sister other (Migraines) Sister other (Gout) Sister other (Fibromyalgia) Sister Cancer Sister 32 Ovarian cancer Sister 32 Breast Cancer Maternal Aunt 2 maternal aunts. other (MICRO PHOTOGRAPHER cancer) No Family History Anesthesia Problems No Family History Blood Clots No Family History Social History Tobacco Use Smoking status: Every Day Packs/day: 0.25 Years: 29.00 Additional pack years: 0.00 Total pack years: 7.25 Types: Cigarettes Start date: 11/17/1986 Last attempt to quit: 11/23/2021 Years since quittin.0 Smokeless tobacco: Never Vaping Use Vaping Use: Never used Substance Use Topics Alcohol use: Not Currently Comment: Rarely Drug use: No PHYSICAL EXAM BP 122/74 Pulse 84 Resp 16 Wt 57.2 kg (126 lb) SpO2 96% BMI 22.75 kg/m General Appearance: well appearing, in no acute distress, alert Skin: Skin color, texture, turgor normal for age; Eyes: conjunctiva pink and moist, no icterus, sclera white, non-injected Neck: Thyroid normal size and symmetric without palpable nodules, Neck supple, No adenopathy Lymph nodes: No cervical lymphadenopathy, No supraclavicular lymphadenopathy, and No axillary lymphadenopathy. Lungs: Lungs clear to auscultation. No wheezing, rhonchi, rales. Heart: RRR without murmur, gallop, or rubs. No ectopy Extremities: No deformities, edema, skin discoloration, clubbing or cyanosis. Good capillary refill. Right axillary tenderness reported, - Right ankle with tenderness. Full ROM but pain reported with extension. No redness edema or open area on exam. Neck: Inspection: normal Palpation: non tender ROM: full without pain or difficulty Musculoskeletal: Bilateral shoulder: normal to inspection. no tenderness with palpation of deltoid,biceps tendon, trapezius, clavicle, AC (Acromioclavicular) joint, and SC (Sternoclavicular) joint. ROM: full without difficulty or pain. Special tests: Drop arm: -, Empty Can: -, Infraspinatus: -, Brooks:-, Neer - Upper extremities: reflexes: +2 to bilateral U/L extremities.. Muscle strength: 5/5 upper, bilaterally Health maintenance reviewed with patient: DTaP,Tdap,Td Vaccine(6 - Tdap) due on 04/11/2024 Hepatitis B Vaccine(1 of 3 - 19+ 3-dose series) due on 04/11/2024 Shingrix Vaccine(1 of 2) due on 04/11/2024 Pneumococcal Vaccine(2 of 2 - PCV) due on 04/11/2024 Mammogram Screening due on 10/08/2024 Cervical Cancer Screening due on 10/24/2024 Annual PCP Team Chronic Disease Visit due on 10/31/2024 Diabetes Screening due on 10/31/2026 Lipid Screening due on 11/15/2027 Colorectal Cancer Screening due on 01/12/2033 Alpha-1 Antitrypsin Deficiency Screening Completed Spirometry Completed Influenza Vaccine Completed Hepatitis C Screening Completed HIV Screening Completed Covid-19 Vaccine Completed HPV Vaccine Aged Out DATA REVIEWED: Most recent labs and imaging results. ASSESSMENT/PLAN: 1. Acute right ankle pain - ICD9: 719.47, 338.19, ICD10: M25.571 (primary diagnosis) Still with tenderness and pain on extension - will xray to further evaluate - XR ANKLE GENERAL 3V AP/LAT/OBL RIGHT 2. Pain in axilla, unspecified laterality - ICD9: 729.5, ICD10: M79.629 - normal exam except with tenderness reported to right axillae. Has had these concerns since last fall without any concerns on imaging or EMG. Will do xray to see if cervical possible cause and shoulders as the numbness and pain flared with bilateral shoulders in extension and neck flexed back. If not cause found may need an MRI - XR CERV OTHER 4V AP/LAT/FLX/EXT - XR SHOULDER GENERAL 3V OR MORE AP/TRUE AP/OTHER LEFT - XR SHOULDER GENERAL 3V OR MORE AP/TRUE AP/OTHER RIGHT 3. Numbness and tingling of both upper extremities - ICD9: 782.0, ICD10: R20.0, R20.2 As above - XR CERV OTHER 4V AP/LAT/FLX/EXT - XR SHOULDER GENERAL 3V OR MORE AP/TRUE AP/OTHER LEFT - XR SHOULDER GENERAL 3V OR MORE AP/TRUE AP/OTHER RIGHT Prescription instructions reviewed with patient as applicable. Potential red flag symptoms discussed with the patient. Reviewed appropriate action plan to take if red flag symptoms occur. Patient agreeable to treatment plan. Laura Hernandez APRN.CNP documented in this encounterCos[facility]06-[facility] History of Present illness Narrative* Tj Murphy MD - 12/11/2023 10:18 AM EDT UNIVERSAL PROTOCOL / SAFETY CHECKLIST Procedure to be Performed: EMG Sign In: A Moment of CARE was completed. Personnel directly involved with the procedure wore the appropriate PPE (Personal Protective Equipment). Patient/Surrogate Stated/Verified: PATIENT VERIFIED(optional for EMERGENT procedures): Patient name, Date of , Relevant allergies, and The intended procedure Time Out Communication: Intended patient and procedure match the source documents. Correct side/site marked and visible. Sign Out: SIGN OUT (optional for EMERGENT procedures): Post-procedure follow-up management communicated and Plan of Care Visit completed when applicable. Erin Murphy MD documented in this encounterCos[facility]04-25-2024 History of Present illness Narrative* María Elena Duarte APRN.CNP - 11/01/2023 7:09 AM EDT CC: Patient presents with: Numbness: Couple weeks elbows into hands HPI Jane Steinberg is a 52 year old female who presents today for above. Symptoms started with bilateral axillary pain and swelling approximately 2.5 months ago. She was evaluated for this on 09/17, soft right axillary mass found on exam. Evaluated with diagnostic mammogram and ultrasound which were negative for lymphadenopathy. Pain never improved, re-evaluated in the office on 10/16 and was prescribed prednisone. Today patient reports no improvement in pain. Starting two weeks ago she began experiencing numbness/tingling sensation from her upper arms to her hands. 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 There is no swelling, abnormal skin temperature or discoloration. Denies neck or shoulder pain. Denies alcohol or illicit drug use. Denies heavy lifting or strenuous activities. She has no numbness/tingling any where else. She has never had symptoms likethis before. Pain is still located both armpits and into her chest. She reported this chest pain atoffice visit on 10/16, EKG did not show acute ischemia but there were changes noted from previous. She is scheduled for an echocardiogram to evaluate. No new or worsening symptoms associated with the chest pain. She is SOB with exertion but this her baseline. Review of Systems Constitutional: Positive for fatigue (I'm always tired, but no worse). Negative for chills, diaphoresis, fever and unexpected weight change. HENT: Negative for trouble swallowing and voice change. Eyes: Negative for visual disturbance. Respiratory: Chronic cough and wheezing secondary to smoking. No worse than usual Cardiovascular: Negative for palpitations and leg swelling. Endocrine: Negative for cold intolerance, heat intolerance, polydipsia, polyphagia and polyuria. Musculoskeletal: Negative for back pain, gait problem, joint swelling, neck pain and neck stiffness. Skin: Negative for rash. Neurological: Negative for dizziness, tremors, seizures, syncope, facial asymmetry, speech difficulty, weakness, light-headedness and headaches. No issues with balance or coordination Hematological: Negative for adenopathy. Does not bruise/bleed easily. Psychiatric/Behavioral: Negative for confusion, dysphoric mood and sleep disturbance. The patient is not nervous/anxious. PAST MEDICAL HISTORY Diagnosis Date Anorexia nervosa 06/11/2006 Stable; treated in past Anxiety Asthma 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 02/13/2020 Bulimia nervosa 06/11/2006 Stable, treated in past Cancer (HCC) Chest pain Cholelithiasis 07/24/2023 Chronic obstructive pulmonary disease (COPD) (HCC) Emphysema lung (HCC) GERD (gastroesophageal reflux disease) H. pylori infection cronic Hiatal hernia 02/13/2020 small HISTORY OF CANCER OF UTERUS 06/11/2006 2004, Hysterectomy - complete History of COVID-19 07/10/2023 Internal hemorrhoids Lung disease Migraines Overweight (BMI 25.0-29.9) 07/10/2023 Snoring Tobacco use disorder 06/11/2006 Quit 09/2015. Unspecified asthma(493.90) Childhood diagnosis. PAST SURGICAL HISTORY Procedure Laterality Date APPENDECTOMY 1998 COLONOSCOPY 01/12/2023 no specimens, next colonoscopy 2029 EGD WITH BIOPSY(S) 03/13/2017 Dr. Shook EGD WITH BIOPSY(S) 02/13/2020 small hiatal hernia; Duggan's without dysplasia; Dr. Montoya EGD WITH BIOPSY(S) 10/06/2021 H. pylori +; Duggan's without dysplasia; Dr. Riggs EGD WITH BIOPSY(S) 09/12/2022 neg for H. pylori; Dr. Riggs LAPS SURG CHOLECYSTECTOMY W/CHOLANGIOGRAPHY 07/24/2023 PAST SURGICAL HISTORY OF 2003 Lymph Node Bx 1999 TOTAL ABDOMINAL HYSTERECT W/WO RMVL TUBE OVARY 2004 and BSO - pelvic pain/benign ALLERGIES Penicillins MEDICATIONS EPINEPHrine (EPIPEN) 0.3 mg/0.3 mL auto-injector Inject intramuscularly. multivit with minerals/lutein (MULTIVITAMIN 50 PLUS ORAL) Take by mouth. amitriptyline (ELAVIL) 100 mg tablet take 1 tablet by mouth once daily at bedtime IBSRELA 50 mg tablet TAKE 1 TABLET BY MOUTH TWICE A DAY 10 MINUTES BEFORE EATING promethazine (PHENERGAN) 25 mg tablet Take 1 tablet by mouth every 8 hours as needed (for nausea). fluticasone (FLONASE) 50 mcg/actuation nasal spray Use 2 Sprays in each nostril once daily. Rinse mouth after use. ibuprofen (MOTRIN) 800 mg tablet Take 1 tablet by mouth every 8 hours as needed for pain. diclofenac (VOLTAREN) 1 % topical gel Apply 2 g to affected area twice daily. FASENRA PEN 30 mg/mL auto-injector Dexlansoprazole (DEXILANT) 60 mg CpDM Take 60 mg by mouth once daily. magnesium hydroxide (MILK OF MAGNESIA) 400 mg/5 mL suspension Take 15 mL by mouth once daily as needed for constipation. bisacodyl (DULCOLAX, BISACODYL,) 10 mg supp 1 Suppository by RECTAL route once daily as needed for constipation. famotidine (PEPCID) 40 mg tablet Take 1 tablet by mouth once daily as needed. MUCUS RELIEF ER 600 mg 12 hr tablet Take 1,200 mg by mouth twice daily. montelukast (SINGULAIR) 10 mg tablet Take 1 tablet by mouth daily at bedtime. vfsevmdeqzn-mblwibvms-jcigvjtp (TRELEGY ELLIPTA) 200-62.5-25 mcg inhalation powder Inhale as instructed. albuterol HFA (VENTOLIN HFA) 90 mcg/actuation inhaler Inhale 2 Puffs as instructed every 4 hours asneeded for wheezing/shortness of breath. L. acidophilus-L. rhamnosus 15 billion cell cap Take 1 capsule by mouth once daily. FLORAJEN WOMEN.If on antibiotic, take at least 1-2 hours before or after antibiotic. KEEP REFRIGERATED ergocalciferol 50,000 unit capsule (VITAMIN D2, DRISDOL) Take 1 capsule by mouth one time a week. albuterol (PROVENTIL) 2.5 mg /3 mL (0.083 %) nebulizer solution Use 3 mL via nebulizer every 6 hours as needed. PHENYLephrine-cocoa butter (PREPARATION H,PE,CB,) 0.25-88.44 % supp 1 Suppository by RECTAL route once daily. (Patient taking differently: 1 Suppository by RECTAL route as needed.) COMPACT SPACE CHAMBER as directed. ipratropium-albuterol (DUONEB) 0.5 mg-3 mg(2.5 mg base)/3 mL nebu Inhale 3 mL as instructed every 4hours as needed. PULSE OXIMETER CONTEC 1 Each as needed. Comp Stocking,Knee,Regular,Med misc 2 Each once daily. loratadine (CLARITIN) 10 mg tablet Take 1 tablet by mouth once daily. FAMILY HISTORY Problem Relation Age of Onset Hypertension Mother Heart Mother Eczema Mother other (AAA) Mother other (Fibromyalgia) Mother Alcohol/Drug Father Alcohol Cancer Father lung Colon Cancer Father Hypertension Sister Asthma Sister other (Migraines) Sister other (Gout) Sister other (Fibromyalgia) Sister Cancer Sister 32 Ovarian cancer Sister 32 Breast Cancer Maternal Aunt 2 maternal aunts. other (MICRO PHOTOGRAPHER cancer) No Family History Anesthesia Problems No Family History Blood Clots No Family History Social History Tobacco Use Smoking status: Every Day Packs/day: 0.25 Years: 29.00 Additional pack years: 0.00 Total pack years: 7.25 Types: Cigarettes Start date: 11/17/1986 Last attempt to quit: 11/23/2021 Years since quittin.9 Smokeless tobacco: Never Vaping Use Vaping Use: Never used Substance Use Topics Alcohol use: Not Currently Comment: Rarely Drug use: No BP 126/86 Pulse 84 Resp 18 Wt 60.3 kg (133 lb) SpO2 94% BMI 24.01 kg/m Physical Exam Vitals reviewed. Constitutional: Appearance: Normal appearance. HENT: Head: Normocephalic and atraumatic. Mouth/Throat: Lips: [place]. Mouth: Mucous membranes are moist. Tongue: Tongue does not deviate from midline. Eyes: Extraocular Movements: Extraocular movements intact. Conjunctiva/sclera: Conjunctivae normal. Pupils: Pupils are equal, round, and reactive to light. Neck: Thyroid: No thyroid mass, thyromegaly or thyroid tenderness. Cardiovascular: Rate and Rhythm: Normal rate and regular rhythm. Pulses: Normal pulses. Heart sounds: Normal heart sounds. No murmur heard. Pulmonary: Effort: Pulmonary effort is normal. Breath sounds: Normal air entry. Wheezing (scattered wheezing) present. No rhonchi or rales. Chest: Chest wall: Tenderness present. No mass, deformity, swelling, crepitus or edema. Musculoskeletal: Right shoulder: Tenderness present. Left shoulder: Tenderness present. Right upper arm: Tenderness present. Left upper arm: Tenderness present. Right elbow: No tenderness. Left elbow: No tenderness. Right forearm: Tenderness present. Left forearm: Tenderness present. Right wrist: No tenderness. Left wrist: No tenderness. Right hand: No tenderness. Normal capillary refill. Normal pulse. Left hand: No tenderness. Normal capillary refill. Normal pulse. Cervical back: Normal range of motion and neck supple. Muscular tenderness (bilateral trapezius) present. No pain with movement or spinous process tenderness. Right lower leg: No edema. Left lower leg: No edema. Comments: Bilateral axillary tenderness with palpation Lymphadenopathy: Cervical: No cervical adenopathy. Upper Body: Right upper body: No supraclavicular or axillary adenopathy. Left upper body: No supraclavicular or axillary adenopathy. Skin: General: Skin is warm and dry. Neurological: General: No focal deficit present. Mental Status: She is alert and oriented to person, place, and time. Cranial Nerves: Cranial nerves 2-12 are intact. Sensory: Sensation is intact. Motor: Motor function is intact. No weakness or tremor. Coordination: Romberg sign negative. Coordination normal. Jowxdr-Mvws-Zxcsgi Test normal. Rapid alternating movements normal. Gait: Gait and tandem walk normal. Deep Tendon Reflexes: Reflexes are normal and symmetric. Psychiatric: Attention and Perception: Attention normal. Mood and Affect: Mood and affect normal. Speech: Speech normal. Behavior: Behavior normal. Behavior is cooperative. Cognition and Memory: Cognition normal. DATA REVIEWED: Most recent EKG, labs and imaging ASSESSMENT/PLAN: 1. Numbness and tingling of both upper extremities - ICD9: 782.0, ICD10: R20.0, R20.2 (primary diagnosis) Etiology unclear. Differentials include nerve impingement, thoracic outlet syndrome, autoimmune, diabetes Evaluate further with: - COMPLETE BLOOD COUNT AND DIFFERENTIAL - COMPREHENSIVE METABOLIC PANEL - THYROID STIMULATING HORMONE - VITAMIN B12 - HEMOGLOBIN A1C - EMG(NEURO/NI) Follow-up pending results 2. Pain in both upper extremities - ICD9: 729.5, ICD10: M79.601, M79.602 As above - COMPLETE BLOOD COUNT AND DIFFERENTIAL - COMPREHENSIVE METABOLIC PANEL - THYROID STIMULATING HORMONE - VITAMIN B12 - HEMOGLOBIN A1C - EMG(NEURO/NI) Prescription instructions reviewed with patient as applicable. Potential red flag symptoms discussed with the patient. Reviewed appropriate action plan to take if red flag symptoms occur. Patient agreeable to treatment plan. María Elena Duarte APRN.DUMPER documented in this encounterCos[facility]04-[facility] Telephone encounter Note * Telephone Encounter - Janeen George RN - 10/25/2023 12:52 PM EDT Patient calls with update on pain. Patient states that prednisone has not helped with the pain. Patient reports that pain is now going down to patient's bilateral hands. Please review and advise, Janeen George RN [facility]04-18-2024 Miscellaneous Notes* Telephone Encounter - Janeen George RN - 10/25/2023 12:52 PM EDT Patient calls with update on pain. Patient states that prednisone has not helped with the pain. Patient reports that pain is now going down to patient's bilateral hands. Please review and advise, Janeen George RN documented in this encounterCoshocton [facility]04-18-2024 History of Present illness Narrative* Carin Roldan MD - 10/25/2023 9:11 AM EDT Yohannes is a 52 year old who presents for an annual gynecologic exam without complaints. Denieshot flashes or vaginal dryness. 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 pylori infection cronic Hiatal hernia 02/13/2020 small HISTORY OF CANCER OF UTERUS 06/11/2006 2004, Hysterectomy - complete History of COVID-19 07/10/2023 Internal hemorrhoids Lung disease Migraines Overweight (BMI 25.0-29.9) 07/10/2023 Snoring Tobacco use disorder 06/11/2006 Quit 09/2015. Unspecified asthma(493.90) Childhood diagnosis. PAST SURGICAL HISTORY Procedure Laterality Date APPENDECTOMY 1998 COLONOSCOPY 01/12/2023 no specimens, next colonoscopy 2029 EGD WITH BIOPSY(S) 03/13/2017 Dr. Shook EGD WITH BIOPSY(S) 02/13/2020 small hiatal hernia; Duggan's without dysplasia; Dr. Montoya EGD WITH BIOPSY(S) 10/06/2021 H. pylori +; Duggan's without dysplasia; Dr. Riggs EGD WITH BIOPSY(S) 09/12/2022 neg for H. pylori; Dr. Riggs LAPS SURG CHOLECYSTECTOMY W/CHOLANGIOGRAPHY 07/24/2023 PAST SURGICAL HISTORY OF 2003 Lymph Node Bx 1999 TOTAL ABDOMINAL HYSTERECT W/WO RMVL TUBE OVARY 2004 and BSO - pelvic pain/benign FAMILY HISTORY Problem Relation Age of Onset Hypertension Mother Heart Mother Eczema Mother other (AAA) Mother other (Fibromyalgia) Mother Alcohol/Drug Father Alcohol Cancer Father lung Colon Cancer Father Hypertension Sister Asthma Sister other (Migraines) Sister other (Gout) Sister other (Fibromyalgia) Sister Cancer Sister 32 Ovarian cancer Sister 32 Breast Cancer Maternal Aunt 2 maternal aunts. other (MICRO PHOTOGRAPHER cancer) No Family History Anesthesia Problems No Family History Blood Clots No Family History SOCIAL HISTORY Social History Tobacco Use Smoking status: Every Day Packs/day: 0.25 Years: 29.00 Additional pack years: 0.00 Total pack years: 7.25 Types: Cigarettes Start date: 11/17/1986 Last attempt to quit: 11/23/2021 Years since quittin.9 Smokeless tobacco: Never Vaping Use Vaping Use: Never used Substance Use Topics Alcohol use: Not Currently Comment: Rarely Drug use: No REVIEW OF SYSTEMS Abdomen: No abdominal pain, nausea, vomiting, diarrhea, or constipation. No bloating, early satiety, indigestion, or increased flatulence. Bladder: No dysuria, gross hematuria, urinary frequency, urinary urgency, or incontinence Breast: No breast lumps, nipple d/c, overlying skin changes, redness or skin retraction Allergies and current medication updated:Yes EXAM: BP 116/74 Ht 5' 2.402 (1.59m) Wt 129 lb (58.5kg) BMI 23.29 kg/(m^2). GENERAL: pleasant, female in no apparent distress HEENT: Normocephalic, atraumatic, mucus membranes moist, and no lesions NECK: Supple, full range of motion, no adenopathy, and thyroid normal DERMATOLOGY: Normal, without lesions, non-icteric, and non-hirsute BREAST: soft, non-tender, symmetric, no dominant mass, normal nipple-areolar complex, no lymphadenopathy, and no nipple discharge CHEST: Normal inspiratory effort ABDOMEN: soft, non-tender, and no masses PELVIC: external genitalia normal, normal Bartholin's glands, urethra, [place]'s glands, no vulvar lesions, no cervical lesions, good vaginal support, physiologic discharge present, normal appearing perineal body and perianal region BIMANUAL: uterus normal size, shape and consistency, no adnexal masses, and non-tender RECTOVAGINAL: deferred. NEURO: alert and oriented x3,exam grossly non-focal EXTREMITIES: normal ASSESSMENT/PLAN: 1) Health maintenance: Pap done with HPV. Mammogram ordered Colon cancer screening: up to date with screening 2) Follow up one year or sooner as needed Carin Roldan MD documented in this encounterCos[facility]04-10-2024 History of Present illness Narrative* Brady Menendez RT(R) - 10/17/2023 10:40 AM EDT Radiology Service Progress Note PATIENT NAME: Jane Steinberg DATE OF SERVICE: October 17, 2023 TIME: 10:32 AM PATIENT IDENTITY VERIFICATION COMPLETED USING TWO (2) IDENTIFIERS: Name and Date of confirmedby patient verbally. FALL SCREENING: Has the patient had 2 falls in the last year or 1 fall with injury or currently using an Ambulatory Assistive Device (Walker, Cane, Wheelchair, Crutches, etc.)? No PATIENT GENDER DATA: Female. status: : No status: NO. PATIENT RELEVANT IMPLANT DATA REVIEWED: Yes PATIENT PRESENTS WITH AN IMPLANTABLE OR ATTACHED SHAREMILKER: No RADIOLOGY DEPARTMENT: General X-ray: Exam(s) Completed: Chest X-Ray PERIPHERAL IV DATA: Not applicable SIGNED BY: RT Emilia(Lashae) October 17, 2023 10:32 AM documented in this encounterCos[facility]04-10-2024 History of Present illness Narrative* Laura Hernandez APRN.DUMPER - 10/17/2023 9:49 AM EDT CC: Patient presents with: Recheck: 3 month follow up HPI Jane Steinberg is a 52 year old female who presents today for routine follow up but has ongoing concerns. Bilateral axillary pain for the past month and a half which is present always but at night with certain movement will cause a sharp pain from axillary region down bilateral upper arms which is accompanied by a numbness sensation. Pain and tenderness is to axillary region but US and mammography negative for any concern. Denies any weakness, decreased ROM, injury, neck pain, rash, redness, or fever. COPD: Last exacerbation was 2 months ago. Using albuterol every 4 hours which is her baseline. Seespulmonology in a few weeks Getting short of breath with exertion over the past week. Accompanied with increase cough, some sputum, and wheezing. Denies fever, chills, edema, palpitations, or malaise. Gets right sided chest pain that sometimes can be with the shortness of breath but not always. Onlylasts a few minutes and then self resolves. Described as a sharp ache. Denies any abnromal sweating or nausea wit the pain. REVIEW OF SYSTEMS See HPI PAST MEDICAL HISTORY Diagnosis Date Anorexia nervosa 06/11/2006 Stable; treated in past Anxiety Asthma 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 02/13/2020 Bulimia nervosa 06/11/2006 Stable, treated in past Cancer (HCC) Chest pain Cholelithiasis 07/24/2023 Chronic obstructive pulmonary disease (COPD) (HCC) Emphysema lung (HCC) GERD (gastroesophageal reflux disease) H. pylori infection cronic Hiatal hernia 02/13/2020 small HISTORY OF CANCER OF UTERUS 06/11/2006 2004, Hysterectomy - complete History of COVID-19 07/10/2023 Internal hemorrhoids Lung disease Migraines Overweight (BMI 25.0-29.9) 07/10/2023 Snoring Tobacco use disorder 06/11/2006 Quit 09/2015. Unspecified asthma(493.90) Childhood diagnosis. PAST SURGICAL HISTORY Procedure Laterality Date APPENDECTOMY 1998 COLONOSCOPY 01/12/2023 no specimens, next colonoscopy 2029 EGD WITH BIOPSY(S) 03/13/2017 Dr. Shook EGD WITH BIOPSY(S) 02/13/2020 small hiatal hernia; Duggan's without dysplasia; Dr. Montoya EGD WITH BIOPSY(S) 10/06/2021 H. pylori +; Duggan's without dysplasia; Dr. Riggs EGD WITH BIOPSY(S) 09/12/2022 neg for H. pylori; Dr. Riggs LAPS SURG CHOLECYSTECTOMY W/CHOLANGIOGRAPHY 07/24/2023 PAST SURGICAL HISTORY OF 2004 Lymph Node Bx 1999 TOTAL ABDOMINAL HYSTERECT W/WO RMVL TUBE OVARY 2004 and BSO - pelvic pain/benign ALLERGIES Penicillins MEDICATIONS multivit with minerals/lutein (MULTIVITAMIN 50 PLUS ORAL) Take by mouth. amitriptyline (ELAVIL) 100 mg tablet take 1 tablet by mouth once daily at bedtime IBSRELA 50 mg tablet TAKE 1 TABLET BY MOUTH TWICE A DAY 10 MINUTES BEFORE EATING promethazine (PHENERGAN) 25 mg tablet Take 1 tablet by mouth every 8 hours as needed (for nausea). fluticasone (FLONASE) 50 mcg/actuation nasal spray Use 2 Sprays in each nostril once daily. Rinse mouth after use. ibuprofen (MOTRIN) 800 mg tablet Take 1 tablet by mouth every 8 hours as needed for pain. diclofenac (VOLTAREN) 1 % topical gel Apply 2 g to affected area twice daily. FASENRA PEN 30 mg/mL auto-injector Dexlansoprazole (DEXILANT) 60 mg CpDM Take 60 mg by mouth once daily. magnesium hydroxide (MILK OF MAGNESIA) 400 mg/5 mL suspension Take 15 mL by mouth once daily as needed for constipation. bisacodyl (DULCOLAX, BISACODYL,) 10 mg supp 1 Suppository by RECTAL route once daily as needed for constipation. famotidine (PEPCID) 40 mg tablet Take 1 tablet by mouth once daily as needed. MUCUS RELIEF ER 600 mg 12 hr tablet Take 1,200 mg by mouth twice daily. montelukast (SINGULAIR) 10 mg tablet Take 1 tablet by mouth daily at bedtime. mvxcwilwmvb-szlbfbzsi-guubyezi (TRELEGY ELLIPTA) 200-62.5-25 mcg inhalation powder Inhale as instructed. albuterol HFA (VENTOLIN HFA) 90 mcg/actuation inhaler Inhale 2 Puffs as instructed every 4 hours asneeded for wheezing/shortness of breath. L. acidophilus-L. rhamnosus 15 billion cell cap Take 1 capsule by mouth once daily. FLORAJEN WOMEN.If on antibiotic, take at least 1-2 hours before or after antibiotic. KEEP REFRIGERATED ergocalciferol 50,000 unit capsule (VITAMIN D2, DRISDOL) Take 1 capsule by mouth one time a week. albuterol (PROVENTIL) 2.5 mg /3 mL (0.083 %) nebulizer solution Use 3 mL via nebulizer every 6 hours as needed. PHENYLephrine-cocoa butter (PREPARATION H,PE,CB,) 0.25-88.44 % supp 1 Suppository by RECTAL route once daily. (Patient taking differently: 1 Suppository by RECTAL route as needed.) COMPACT SPACE CHAMBER as directed. ipratropium-albuterol (DUONEB) 0.5 mg-3 mg(2.5 mg base)/3 mL nebu Inhale 3 mL as instructed every 4hours as needed. PULSE OXIMETER CONTEC 1 Each as needed. Comp Stocking,Knee,Regular,Med misc 2 Each once daily. loratadine (CLARITIN) 10 mg tablet Take 1 tablet by mouth once daily. FAMILY HISTORY Problem Relation Age of Onset Hypertension Mother Heart Mother Eczema Mother other (AAA) Mother other (Fibromyalgia) Mother Alcohol/Drug Father Alcohol Cancer Father lung Colon Cancer Father Hypertension Sister Asthma Sister other (Migraines) Sister other (Gout) Sister other (Fibromyalgia) Sister Breast Cancer Maternal Aunt 2 maternal aunts. other (MICRO PHOTOGRAPHER cancer) No Family History Anesthesia Problems No Family History Blood Clots No Family History Social History Tobacco Use Smoking status: Every Day Packs/day: 0.25 Years: 29.00 Additional pack years: 0.00 Total pack years: 7.25 Types: Cigarettes Start date: 11/17/1986 Last attempt to quit: 11/23/2021 Years since quittin.8 Smokeless tobacco: Never Vaping Use Vaping Use: Never used Substance Use Topics Alcohol use: Not Currently Comment: Rarely Drug use: No PHYSICAL EXAM BP 118/78 Pulse 80 Resp 16 Wt 59.4 kg (131 lb) SpO2 97% BMI 24.75 kg/m General Appearance: well appearing, in no acute distress, alert Pysch: mood and affect broad and appropriate Neck: Thyroid normal size and symmetric without palpable nodules, Neck supple, No adenopathy. No tenderness, Full ROM without pain or difficulty Lymph nodes: No cervical lymphadenopathy and No supraclavicular lymphadenopathy Lungs: Lungs clear to auscultation. No wheezing, rhonchi, rales. Heart: RRR without murmur, gallop, or rubs. No ectopy BUE Extremities: No deformities, edema, skin discoloration, clubbing or cyanosis. Good capillary refill. Bilateral axillary with tenderness but no redness, rash, edema, or masses noted today Neck: Inspection: normal Palpation: nontender ROM: full Musculoskeletal: Bilateral shoulder: normal to inspection. no tenderness with palpation of deltoid,biceps tendon, trapezius, clavicle, AC (Acromioclavicular) joint, and SC (Sternoclavicular) joint. ROM: full. Special tests: Drop arm: -, Empty Can: -, Infraspinatus: -, , Neer - Muscle strength: 5/5 upper, bilaterally and sensation intact Health maintenance reviewed with patient: Pap Testing due on 10/22/2021 DTaP,Tdap,Td Vaccine(6 - Tdap) due on 04/11/2024 Hepatitis B Vaccine(1 of 3 - 19+ 3-dose series) due on 04/11/2024 Shingrix Vaccine(1 of 2) due on 04/11/2024 Pneumococcal Vaccine(2 of 2 - PCV) due on 04/11/2024 Annual PCP Team Chronic Disease Visit due on 09/17/2024 Mammogram Screening due on 10/08/2024 HPV Testing due on 10/22/2025 Diabetes Screening due on 06/08/2026 Lipid Screening due on 11/15/2027 Colorectal Cancer Screening due on 01/12/2033 Alpha-1 Antitrypsin Deficiency Screening Completed Spirometry Completed Influenza Vaccine Completed Hepatitis C Screening Completed HIV Screening Completed Covid-19 Vaccine Completed HPV Vaccine Aged Out DATA REVIEWED: No new labs EKG Interpretation: RHYTHM: Normal sinus rhythm at 72 beats per minute with possible left atrial enlargement AXIS: Normal axis INTERVALS: Normal DC interval QRS COMPLEX: Normal ST SEGMENT: Normal ST-T segments QT INTERVAL: Normal COMPARED WITH PRIOR: changed possible left atrial enlargement is new ASSESSMENT/PLAN: 1. Shortness of breath - ICD9: 786.05, ICD10: R06.02 (primary diagnosis) COPD exacerbation but with new EKG changes will do ECHO as well - continue with current medications and prednisone taper - keep upcoming pulmonology appointment or if canceled, follow up in this office - ECHO - PERFLUTREN LIPID MICROSPHERES 1.1 MG/ML INJECTION IN NS 10 ML - SODIUM CHLORIDE 0.9 % (FLUSH) INJECTION SYRINGE - XR CHEST 2V FRONTAL/LAT 2. Wheezing - ICD9: 786.07, ICD10: R06.2 As above - XR CHEST 2V FRONTAL/LAT 3. Chest pain, unspecified type - ICD9: 786.50, ICD10: R07.9 See #1 - ECG COMPLETE - ECHO - PERFLUTREN LIPID MICROSPHERES 1.1 MG/ML INJECTION IN NS 10 ML - SODIUM CHLORIDE 0.9 % (FLUSH) INJECTION SYRINGE - XR CHEST 2V FRONTAL/LAT 4. Abnormal EKG - ICD9: 794.31, ICD10: R94.31 See #1 - ECHO - PERFLUTREN LIPID MICROSPHERES 1.1 MG/ML INJECTION IN NS 10 ML - SODIUM CHLORIDE 0.9 % (FLUSH) INJECTION SYRINGE 5. Axillary tenderness, unspecified laterality - ICD9: 729.5, ICD10: M79.629 - prednisone taper for COPD exacerbation may help if related to inflammation - doxycyline ordered as US was normal but she did have a palpable lump at last visit. - follow up if no improvement in pain Prescription instructions reviewed with patient as applicable. Potential red flag symptoms discussed with the patient. Reviewed appropriate action plan to take if red flag symptoms occur. Patient agreeable to treatment plan. Laura Hernandez APRN.CNP documented in this encounterCos[facility]04-02-2024 History of Present illness Narrative* Nichole Sage RDMS - 10/09/2023 9:30 AM EDT Radiology Service Progress Note PATIENT NAME: Jane Steinberg DATE OF SERVICE: October 09, 2023 TIME: 4:30 PM PATIENT IDENTITY VERIFICATION COMPLETED USING TWO (2) IDENTIFIERS: Name and Date of confirmedby patient verbally. FALL SCREENING: Has the patient had 2 falls in the last year or 1 fall with injury or currently using an Ambulatory Assistive Device (Walker, Cane, Wheelchair, Crutches, etc.)? No PATIENT GENDER DATA: Female. status: : No status: NO. PATIENT RELEVANT IMPLANT DATA REVIEWED: Not Applicable PATIENT PRESENTS WITH AN IMPLANTABLE OR ATTACHED SHAREMILKER: No RADIOLOGY DEPARTMENT: Ultrasound PERIPHERAL IV DATA: Not applicable SIGNED BY: Nichole Sage RDMS October 09, 2023 4:30 PM documented in this encounterCoshoct[facility]03-22-2024 Miscellaneous Notes* Telephone Encounter - Sonya Mark LPN - 09/28/2023 11:22 AM EDT Patient has been identified by name and date of : No Patient phones for refill(s): Requested Prescriptions Pending Prescriptions Disp Refills amitriptyline (ELAVIL) 100 mg tablet [Pharmacy Med Name: Amitriptyline HCl 100 MG Oral Tablet] 90 tablet 0 Sig: take 1 tablet by mouth once daily at bedtime Date of last office visit in primary care: 09/18/2023 Date of next office visit in primary care: 10/17/2023 Please advise. Thank you. Sonya Mark LPN. documented in this encounterCoshocton [facility]03-20-2024 Miscellaneous Notes* Telephone Encounter - Danielle Shabazz MA - 09/26/2023 1:38 PM EDT Patient phones requesting refills as follows: Requested Prescriptions Pending Prescriptions Disp Refills IBSRELA 50 mg tablet [Pharmacy Med Name: IBSRELA 50 MG TAB] 1 Sig: TAKE 1 TABLET BY MOUTH TWICE A DAY 10 MINUTES BEFORE EATING Please review and advise. Danielle Shabazz MA documented in this encounterCoshocton [facility]03-19-2024 Miscellaneous Notes* Telephone Encounter - Lashay Pickard Ma - 09/25/2023 11:52 AM EDT See message below, pended order. Please review and file. There's also an US order in as well. Lashay Pickard Ma * Telephone Encounter - Goldie Wagner Mammo Tech - 09/25/2023 11:01 AM EDT Could we have a new order Bilateral Diagnostic pt due for screening on 12/20. Thanks a million documented in this encounterCoshocton [facility]03-12-2024 History of Present illness Narrative* Laura Hernandez APRN.KACY - 09/18/2023 8:47 AM EDT CC: Patient presents with: Derm Problem: under bilateral armpit areas x few days HPI Jane Steinberg is a 52 year old female who presents today for lump in armpit Has had bumps to bilateral to bilateral armpit for a few weeks now that come and go. One under right axillary region is large, constantly there, and intermittently tender. Denies any fever chills, change in energy, change in weight, itching, breast changes, nipple drainage, or change in Deoderantor soaps. Did have a COPD exacerbation 1 month ago but symptoms have fully resolved and no further infections. Finished her zpack and steroids 1 week ago. Lump to right axillary appeared prior to this. Had US of right breast 4 months ago for tenderness without identified issue. REVIEW OF SYSTEMS General: no fevers, no chills, no night sweats, no recurrent infections, no change in appetite, no change in energy, and no significant changes in weight Respiratory: at baseline Cardiovascular: no chest pain, no chest pressure, no palpitations, and no swelling Neurologic: No headache, weakness, dizziness, memory loss, syncope. PAST MEDICAL HISTORY Diagnosis Date Anorexia nervosa 06/11/2006 Stable; treated in past Anxiety Asthma 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 02/13/2020 Bulimia nervosa 06/11/2006 Stable, treated in past Cancer (HCC) Chest pain Cholelithiasis 07/24/2023 Chronic obstructive pulmonary disease (COPD) (HCC) Emphysema lung (HCC) GERD (gastroesophageal reflux disease) H. pylori infection cronic Hiatal hernia 02/13/2020 small HISTORY OF CANCER OF UTERUS 06/11/2006 2004, Hysterectomy - complete History of COVID-19 07/10/2023 Internal hemorrhoids Lung disease Migraines Overweight (BMI 25.0-29.9) 07/10/2023 Snoring Tobacco use disorder 06/11/2006 Quit 09/2015. Unspecified asthma(493.90) Childhood diagnosis. PAST SURGICAL HISTORY Procedure Laterality Date APPENDECTOMY 1998 COLONOSCOPY 01/12/2023 no specimens, next colonoscopy 2029 EGD WITH BIOPSY(S) 03/13/2017 Dr. Shook EGD WITH BIOPSY(S) 02/13/2020 small hiatal hernia; Dgugan's without dysplasia; Dr. Montoya EGD WITH BIOPSY(S) 10/06/2021 H. pylori +; Duggan's without dysplasia; Dr. Riggs EGD WITH BIOPSY(S) 09/12/2022 neg for H. pylori; Dr. Riggs LAPS SURG CHOLECYSTECTOMY W/CHOLANGIOGRAPHY 07/24/2023 PAST SURGICAL HISTORY OF 2003 Lymph Node Bx 1999 TOTAL ABDOMINAL HYSTERECT W/WO RMVL TUBE OVARY 2004 and BSO - pelvic pain/benign ALLERGIES Penicillins MEDICATIONS promethazine (PHENERGAN) 25 mg tablet Take 1 tablet by mouth every 8 hours as needed (for nausea). fluticasone (FLONASE) 50 mcg/actuation nasal spray Use 2 Sprays in each nostril once daily. Rinse mouth after use. ibuprofen (MOTRIN) 800 mg tablet Take 1 tablet by mouth every 8 hours as needed for pain. amitriptyline (ELAVIL) 100 mg tablet Take 1 tablet by mouth daily at bedtime. diclofenac (VOLTAREN) 1 % topical gel Apply 2 g to affected area twice daily. FASENRA PEN 30 mg/mL auto-injector tenapanor (IBSRELA) 50 mg tablet Take 1 tablet (50 mg) by mouth twice daily. 10 minutes before eating. Dexlansoprazole (DEXILANT) 60 mg CpDM Take 60 mg by mouth once daily. magnesium hydroxide (MILK OF MAGNESIA) 400 mg/5 mL suspension Take 15 mL by mouth once daily as needed for constipation. bisacodyl (DULCOLAX, BISACODYL,) 10 mg supp 1 Suppository by RECTAL route once daily as needed for constipation. famotidine (PEPCID) 40 mg tablet Take 1 tablet by mouth once daily as needed. montelukast (SINGULAIR) 10 mg tablet Take 1 tablet by mouth daily at bedtime. dzgsllorwmh-ciqeerjvl-iyyajvqd (TRELEGY ELLIPTA) 200-62.5-25 mcg inhalation powder Inhale as instructed. albuterol HFA (VENTOLIN HFA) 90 mcg/actuation inhaler Inhale 2 Puffs as instructed every 4 hours asneeded for wheezing/shortness of breath. L. acidophilus-L. rhamnosus 15 billion cell cap Take 1 capsule by mouth once daily. FLORAJEN WOMEN.If on antibiotic, take at least 1-2 hours before or after antibiotic. KEEP REFRIGERATED ergocalciferol 50,000 unit capsule (VITAMIN D2, DRISDOL) Take 1 capsule by mouth one time a week. albuterol (PROVENTIL) 2.5 mg /3 mL (0.083 %) nebulizer solution Use 3 mL via nebulizer every 6 hours as needed. COMPACT SPACE CHAMBER as directed. ipratropium-albuterol (DUONEB) 0.5 mg-3 mg(2.5 mg base)/3 mL nebu Inhale 3 mL as instructed every 4hours as needed. PULSE OXIMETER CONTEC 1 Each as needed. Comp Stocking,Knee,Regular,Med misc 2 Each once daily. loratadine (CLARITIN) 10 mg tablet Take 1 tablet by mouth once daily. MUCUS RELIEF ER 600 mg 12 hr tablet Take 1,200 mg by mouth twice daily. PHENYLephrine-cocoa butter (PREPARATION H,PE,CB,) 0.25-88.44 % supp 1 Suppository by RECTAL route once daily. (Patient taking differently: 1 Suppository by RECTAL route as needed.) FAMILY HISTORY Problem Relation Age of Onset Hypertension Mother Heart Mother Eczema Mother other (AAA) Mother other (Fibromyalgia) Mother Alcohol/Drug Father Alcohol Cancer Father lung Colon Cancer Father Hypertension Sister Asthma Sister other (Migraines) Sister other (Gout) Sister other (Fibromyalgia) Sister Breast Cancer Maternal Aunt 2 maternal aunts. other (MICRO PHOTOGRAPHER cancer) No Family History Anesthesia Problems No Family History Blood Clots No Family History Social History Tobacco Use Smoking status: Every Day Packs/day: 0.25 Years: 29.00 Additional pack years: 0.00 Total pack years: 7.25 Types: Cigarettes Start date: 11/17/1986 Last attempt to quit: 11/23/2021 Years since quittin.8 Smokeless tobacco: Never Vaping Use Vaping Use: Never used Substance Use Topics Alcohol use: Not Currently Comment: Rarely Drug use: No PHYSICAL EXAM BP 122/70 Pulse 90 Temp 36 C (96.8 F) Resp 16 Wt 61.7 kg (136 lb) SpO2 96% BMI 25.70 kg/m General Appearance: well appearing, in no acute distress, alert Pysch: mood and affect broad and appropriate Eyes: conjunctiva pink and moist, no icterus, sclera white, non-injected Neck: Thyroid normal size and symmetric without palpable nodules, Neck supple, No adenopathy Lymph nodes: No cervical lymphadenopathy, No supraclavicular lymphadenopathy, Lungs: Lungs clear to auscultation. No wheezing, rhonchi, rales. Heart: RRR without murmur, gallop, or rubs. No ectopy Breast: breasts symmetric, no dominant or suspicious mass, no skin or nipple changes, no axillary adenopathy to left axillary region. Right axillary with soft mass noted reported as tender. Health maintenance reviewed with patient: Pap Testing due on 10/22/2021 DTaP,Tdap,Td Vaccine(6 - Tdap) due on 04/11/2024 Hepatitis B Vaccine(1 of 3 - 19+ 3-dose series) due on 04/11/2024 Shingrix Vaccine(1 of 2) due on 04/11/2024 Pneumococcal Vaccine(2 of 2 - PCV) due on 04/11/2024 Mammogram Screening due on 03/13/2024 Annual PCP Team Chronic Disease Visit due on 08/14/2024 HPV Testing due on 10/22/2025 Diabetes Screening due on 06/08/2026 Lipid Screening due on 11/15/2027 Colorectal Cancer Screening due on 01/12/2033 Alpha-1 Antitrypsin Deficiency Screening Completed Spirometry Completed Influenza Vaccine Completed Hepatitis C Screening Completed HIV Screening Completed Covid-19 Vaccine Completed HPV Vaccine Aged Out DATA REVIEWED: No new labs ASSESSMENT/PLAN: 1. Axillary tenderness, right - ICD9: 729.5, ICD10: M79.621 (primary diagnosis) Tender previously but now with palpable soft mass, will redo US for further evaluation. - US BREAST LTD RIGHT - DELTA DIAGNOSTIC RIGHT 2. Axillary mass, right - ICD9: 782.2, ICD10: R22.31 As above - US BREAST LTD RIGHT - DELTA DIAGNOSTIC RIGHT Prescription instructions reviewed with patient as applicable. Potential red flag symptoms discussed with the patient. Reviewed appropriate action plan to take if red flag symptoms occur. Patient agreeable to treatment plan. Laura Hernandez APRN.CNP documented in this [facility] History of Present illness Narrative* María Elena Duarte APRN.CNP - 08/14/2023 8:22 AM EST Images from the original note were not included. CC: Patient presents with: Wheezing: X 2 DAYS , SPOTS ON EYELIDS HPI Jane Steinberg is a 52 year old female who presents today for above. Patient reports wheezing x 3 days. Temperature elevation: No Chills: No Cough: Yes non-productive Shortness of breath: Yes, more than usual Fatigue: No Muscle aches: No Headache: No New loss of smell or taste: No Sore throat: No Nasal congestion: No Rhinorrhea: No Nausea and/or vomiting: No Diarrhea: No Other Associated symptoms: none. PMH: COPD Meds/remedies that patient has tried: albuterol inhaler, using more than usual Exposures: Sick contacts? No Family or close contacts with confirmed/probable COVID-19 in last 14 days? No Home COVID test: No Eyelid lesions- first noticed a couple months ago. No change in size or appearance since then. A little itchy at times but no pain or discomfort. Review of Systems See HPI PAST MEDICAL HISTORY Diagnosis Date Anorexia nervosa 06/11/2006 Stable; treated in past Anxiety Asthma 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 02/13/2020 Bulimia nervosa 06/11/2006 Stable, treated in past Cancer (HCC) Chest pain Cholelithiasis 07/24/2023 Chronic obstructive pulmonary disease (COPD) (HCC) Emphysema lung (HCC) GERD (gastroesophageal reflux disease) H. pylori infection cronic Hiatal hernia 02/13/2020 small HISTORY OF CANCER OF UTERUS 06/11/2006 2004, Hysterectomy - complete History of COVID-19 07/10/2023 Internal hemorrhoids Lung disease Migraines Overweight (BMI 25.0-29.9) 07/10/2023 Snoring Tobacco use disorder 06/11/2006 Quit 09/2015. Unspecified asthma(493.90) Childhood diagnosis. PAST SURGICAL HISTORY Procedure Laterality Date APPENDECTOMY 1998 COLONOSCOPY 01/12/2023 no specimens, next colonoscopy 2029 EGD WITH BIOPSY(S) 03/13/2017 Dr. Shook EGD WITH BIOPSY(S) 02/13/2020 small hiatal hernia; Duggan's without dysplasia; Dr. Montoya EGD WITH BIOPSY(S) 10/06/2021 H. pylori +; Duggan's without dysplasia; Dr. Riggs EGD WITH BIOPSY(S) 09/12/2022 neg for H. pylori; Dr. Riggs LAPS SURG CHOLECYSTECTOMY W/CHOLANGIOGRAPHY 07/24/2023 PAST SURGICAL HISTORY OF 2003 Lymph Node Bx 1999 TOTAL ABDOMINAL HYSTERECT W/WO RMVL TUBE OVARY 2004 and BSO - pelvic pain/benign ALLERGIES Penicillins MEDICATIONS promethazine (PHENERGAN) 25 mg tablet^Take 1 tablet by mouth every 8 hours as needed (for nausea).^Disp: 30 tablet^Rfl: 1 fluticasone (FLONASE) 50 mcg/actuation nasal spray^Use 2 Sprays in each nostril once daily. Rinse mouth after use.^Disp: 1 Each^Rfl: 11 ibuprofen (MOTRIN) 800 mg tablet^Take 1 tablet by mouth every 8 hours as needed for pain.^Disp: 60 tablet^Rfl: 1 amitriptyline (ELAVIL) 100 mg tablet^Take 1 tablet by mouth daily at bedtime.^Disp: 90 tablet^Rfl: 1 diclofenac (VOLTAREN) 1 % topical gel^Apply 2 g to affected area twice daily.^Disp: 50 g^Rfl: 0 FASENRA PEN 30 mg/mL auto-injector^^Disp: ^Rfl: tenapanor (IBSRELA) 50 mg tablet^Take 1 tablet (50 mg) by mouth twice daily. 10 minutes before eating.^Disp: 180 tablet^Rfl: 1 Dexlansoprazole (DEXILANT) 60 mg CpDM^Take 60 mg by mouth once daily.^Disp: 90 capsule^Rfl: 2 magnesium hydroxide (MILK OF MAGNESIA) 400 mg/5 mL suspension^Take 15 mL by mouth once daily as needed for constipation.^Disp: 60 mL^Rfl: 0 bisacodyl (DULCOLAX, BISACODYL,) 10 mg supp^1 Suppository by RECTAL route once daily as needed for constipation.^Disp: 5 Suppository^Rfl: 1 famotidine (PEPCID) 40 mg tablet^Take 1 tablet by mouth once daily as needed.^Disp: 90 tablet^Rfl: 2 MUCUS RELIEF ER 600 mg 12 hr tablet^Take 1,200 mg by mouth twice daily.^Disp: ^Rfl: montelukast (SINGULAIR) 10 mg tablet^Take 1 tablet by mouth daily at bedtime.^Disp: 90 tablet^Rfl: 3 ngyqyefekpu-mxuakiqvy-kqnquumc (TRELEGY ELLIPTA) 200-62.5-25 mcg inhalation powder^Inhale as instructed.^Disp: ^Rfl: albuterol HFA (VENTOLIN HFA) 90 mcg/actuation inhaler^Inhale 2 Puffs as instructed every 4 hours asneeded for wheezing/shortness of breath.^Disp: 18 g^Rfl: 2 L. acidophilus-L. rhamnosus 15 billion cell cap^Take 1 capsule by mouth once daily. FLORAJEN WOMEN.If on antibiotic, take at least 1-2 hours before or after antibiotic. KEEP REFRIGERATED^Disp: 30 capsule^Rfl: 11 ergocalciferol 50,000 unit capsule (VITAMIN D2, DRISDOL)^Take 1 capsule by mouth one time a week.^Disp: 4 capsule^Rfl: 1 albuterol (PROVENTIL) 2.5 mg /3 mL (0.083 %) nebulizer solution^Use 3 mL via nebulizer every 6 hours as needed.^Disp: 180 mL^Rfl: 3 PHENYLephrine-cocoa butter (PREPARATION H,PE,CB,) 0.25-88.44 % supp^1 Suppository by RECTAL route once daily.^Disp: 30 Suppository^Rfl: 2 (Patient taking differently: 1 Suppository by RECTAL route asneeded.) COMPACT SPACE CHAMBER^as directed.^Disp: ^Rfl: ipratropium-albuterol (DUONEB) 0.5 mg-3 mg(2.5 mg base)/3 mL nebu^Inhale 3 mL as instructed every 4hours as needed.^Disp: 20 Vial^Rfl: 0 PULSE OXIMETER CONTEC^1 Each as needed.^Disp: 1 Each^Rfl: 0 Comp Stocking,Knee,Regular,Med misc^2 Each once daily.^Disp: 2 Each^Rfl: 0 loratadine (CLARITIN) 10 mg tablet^Take 1 tablet by mouth once daily.^Disp: 10 tablet^Rfl: 0 FAMILY HISTORY Problem Relation Age of Onset Hypertension Mother Heart Mother Eczema Mother other (AAA) Mother other (Fibromyalgia) Mother Alcohol/Drug Father Alcohol Cancer Father lung Colon Cancer Father Hypertension Sister Asthma Sister other (Migraines) Sister other (Gout) Sister other (Fibromyalgia) Sister Breast Cancer Maternal Aunt 2 maternal aunts. other (MICRO PHOTOGRAPHER cancer) No Family History Anesthesia Problems No Family History Blood Clots No Family History Social History Tobacco Use Smoking status: Every Day Packs/day: 0.25 Years: 29.00 Additional pack years: 0.00 Total pack years: 7.25 Types: Cigarettes Start date: 11/17/1986 Last attempt to quit: 11/23/2021 Years since quittin.7 Smokeless tobacco: Never Vaping Use Vaping Use: Never used Substance Use Topics Alcohol use: Not Currently Comment: Rarely Drug use: No BP 106/66 Pulse 92 Temp 36.2 C (97.1 F) (Temporal) Resp 16 Wt 59.9 kg (132 lb) SpO2 95% BMI 24.94 kg/m Physical Exam Vitals reviewed. Constitutional: General: She is not in acute distress. Appearance: Normal appearance. She is not ill-appearing. Eyes: Cardiovascular: Rate and Rhythm: Normal rate and regular rhythm. Heart sounds: Normal heart sounds. No murmur heard. Pulmonary: Effort: Pulmonary effort is normal. Breath sounds: Normal air entry. Wheezing (diffuse) present. Musculoskeletal: Right lower leg: No edema. Left lower leg: No edema. Lymphadenopathy: Cervical: No cervical adenopathy. Skin: General: Skin is warm and dry. Neurological: Mental Status: She is alert. ASSESSMENT/PLAN: 1. COPD with exacerbation (HCC) - ICD9: 491.21, ICD10: J44.1 (primary diagnosis) Wheezing and increased SOB with exertion. Exacerbation treatment with prednisone taper. OTC cough medicine as needed. Follow-up in 3 to 5 days if no improvement or sooner if worsening 2. Lesion of eyelid of both eyes - ICD9: 373.9, ICD10: H02.9 Suspect xanthelasma. Discussed etiology and treatment with patient. She will contact her eye doctorfor any further concerns. Prescription instructions reviewed with patient as applicable. Potential red flag symptoms discussed with the patient. Reviewed appropriate action plan to take if red flag symptoms occur. Patient agreeable to treatment plan. María Elena Duarte APRN.KACY documented in this encounterCos[facility]24 Instructions* Patient Instructions* Abbey Reina PA-C - 08/09/2023 1:20 PM EST The following instructions are important for you related to your office visit today with the [facility] General Surgeons. INSTRUCTIONS FOLLOWING YOU RECENT GALLBLADDER SURGERY You should be returning to your regular diet, If you have having persistent issues with tolerating your diet, please contact our office It is not unusual to have pain similar to your gallbladder symptoms for the first 1-2 weeks following surgery. If this persists beyond 2 weeks, contact the office. It is not unusual to have loose stools following surgery. This is usually self limited and related to the antibiotics that were given during your surgical procedure. Fiber supplementation and yogurt with active cultures may help you return to regular bowel activity. If you note loose stools persisting for over 2 weeks, or significant cramping or loose bloody stools, contact the office immediately. You may return to your regular activities. You may drive if you are no longer taking narcotic pain medication. You should perform no lifting greater than 25 lbs for the next 2 weeks. Contact the office immediately if any of your incisions become increasingly tender, red or have drainage. Again, if you have any difficulties or concerns, contact our office immediately. If you note any additional difficulties, questions, or concerns, you should contact our office immediately @ [phone] and ask to be transferred to the General Surgery department. documented in this encounterCos[facility]02-01-[facility]24 History of Present illness Narrative* Abbey Reina PA-C - 08/09/2023 1:07 PM EST FOLLOW UP VISIT - CHOLECYSTECTOMY NAME: Jane Steinberg [facility] NO.: [id number] DATE OF SERVICE: 08/09/2023 : 1970 REFERRING PHYSICIAN: Laura Hernandez APRN.KACY Lara is a patient I am following with Dr. Montoya for a complaint of right upper quadrant pain. Dr. Montoya performed a laparoscopic cholecystectomy with intraoperative cholangiogram on 07/24/23. Pathology showed chronic cholecystitis and cholelithiasis. The patient currently notes no complaints. her appetite has been good. she denies fever, chills or abdominal pain. She does note some mild incisionaldiscomfort. VITALS: Blood pressure 112/78, pulse 113, temperature (!) 35.7 C (96.3 F), height 154.9 cm (5' 1),weight 59.2 kg (130 lb 9.6 oz), SpO2 96%. On examination, the abdomen is benign. The incisions are healing well without signs of infection orinflammation. Assessment IMPRESSION: status post laparoscopic cholecystectomy with intraoperative cholangiogram PLAN: If the patient notes any problems, she should contact me immediately. she may return to her regularactivities as tolerated, with the exception of no lifting greater than 25 pounds for the next 2 weeks. The patient is to contact me immediately is she experiences any of her preoperative symptoms. Wediscussed that occasional right up quadrant symptoms similar to the preoperative complaints can occur in the first couple of weeks post operatively. If this persists beyond the first 2-3 weeks, they should contact our office. Diagnoses: (K80.10) Calculus of gallbladder with chronic cholecystitis without obstruction (primaryencounter diagnosis) Return to Clinic: The patient is instructed to follow-up with me as needed. Abbey Reina PA-C documented in this encounterCos[facility]01-16-[facility]24 NoteHNO ID: [id number] Author: CECILIO CASANOVA APRN.CRNA Service: Anesthesiology Author Type: Nurse Concrete Layer Type: Anesthesia Procedure Notes Filed: 07/24/2023 07:55 Note Text: ANESTHESIOLOGY PROCEDURE NOTE Airway General Information Procedure Start Time/Medication Administration: 07/24/2023 7:43 AM Patient location during procedure: OR Timeout Performed Pre-procedure: timeout performed Consent Obtained: Yes Patient identity confirmed: arm band, care forensics team director and patient Staffing SCHEDULE MANAGER: Cecilio Casanova APRN.SCHEDULE MANAGER Performed by: BAM Indications and Patient Condition Indications for airway management: anesthesia Preoxygenated: yes anesthesia circuit Patient position: sniffing Method: asleep Cricoid Pressure: Yes Manual In-Line Stabilization: No Difficult Mask: No Final Airway Details Final airway type: endotracheal airway Final Endotracheal Airway: ETT Cuffed: yes Successful intubation technique: direct laryngoscopy Devices used: intubating stylet Endotracheal tube insertion site: oral Blade: Cristian Blade size: #3 ETT size (mm): 7.0 Measured from: lips Measurement (cm): 21 Placement verified by: capnometry Cormack-Lehane Classification: grade IIa - partial view of glottis Number of attempts at approach: 1 Failed airway: no Unrecognized esophageal intubation: no Airway not difficult SIGNATURE: Cecilio Casanova APRN.SCHEDULE MANAGER PATIENT NAME: Jane Steinberg DATE: July 24, 2023 TIME: 7:54 AM CSN: [id number] History of Present illness Narrative* Laura Hernandez APRN.DUMPER - 07/18/2023 10:19 AM EST CC: Patient presents with: Recheck: 3 month follow up HPI Jane Steinberg is a 52 year old female who presents today for follow up on RUQ pain. RUQ pain ongoing and was found to have gallstones. Is getting her gallbladder removed next week. Chronic uncontrolled reflux with chronic vomiting and constipation: Daily Bm now she is on Ibsrela. Stool is easy to past and varies from soft brown to liquid. Hopefully gallbladder removal improves herchronic vomiting. COPD: uses albuterol every four hours which is baseline for her. Denies an increase shortness of breath, cough, or wheezing. Sees [facility] every 3 months. Smokes average of 2 cigarrettes a day. Chronic pain and nerve pain: On amitrytilline and will use ibuprofen on average twice a week. Controlled with current treatment. REVIEW OF SYSTEMS General: no fevers, no chills, no night sweats, no recurrent infections, no change in appetite, no change in energy, and no significant changes in weight Respiratory: See HPI Cardiovascular: no chest pain, no chest pressure, no palpitations, and no swelling PAST MEDICAL HISTORY Diagnosis Date Anorexia nervosa 06/11/2006 Stable; treated in past Anxiety Asthma 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 02/13/2020 Bulimia nervosa 06/11/2006 Stable, treated in past Cancer (HCC) Chest pain Chronic obstructive pulmonary disease (COPD) (HCC) Emphysema lung (HCC) GERD (gastroesophageal reflux disease) H. pylori infection cronic Hiatal hernia 02/13/2020 small HISTORY OF CANCER OF UTERUS 06/11/20062003, Hysterectomy - complete History of COVID-19 07/10/2023 Internal hemorrhoids Lung disease Migraines Overweight (BMI 25.0-29.9) 07/10/2023 Snoring Tobacco use disorder 06/11/2006 Quit 09/2015. Unspecified asthma(493.90) Childhood diagnosis. PAST SURGICAL HISTORY Procedure Laterality Date APPENDECTOMY 1998 COLONOSCOPY 01/12/2023 no specimens, next colonoscopy 2029 EGD WITH BIOPSY(S) 03/13/2017 Dr. Shook EGD WITH BIOPSY(S) 02/13/2020 small hiatal hernia; Duggan's without dysplasia; Dr. Montoya EGD WITH BIOPSY(S) 10/06/2021 H. pylori +; Duggan's without dysplasia; Dr. Riggs EGD WITH BIOPSY(S) 09/12/2022 neg for H. pylori; Dr. Riggs PAST SURGICAL HISTORY OF 2003 Lymph Node Bx 1999 TOTAL ABDOMINAL HYSTERECT W/WO RMVL TUBE OVARY 2004 and BSO - pelvic pain/benign ALLERGIES Penicillins MEDICATIONS amitriptyline (ELAVIL) 100 mg tablet^Take 1 tablet by mouth daily at bedtime.^Disp: 90 tablet^Rfl: 1 diclofenac (VOLTAREN) 1 % topical gel^Apply 2 g to affected area twice daily.^Disp: 50 g^Rfl: 0 FASENRA PEN 30 mg/mL auto-injector^^Disp: ^Rfl: tenapanor (IBSRELA) 50 mg tablet^Take 1 tablet (50 mg) by mouth twice daily. 10 minutes before eating.^Disp: 180 tablet^Rfl: 1 promethazine (PHENERGAN) 25 mg tablet^Take 1 tablet by mouth every 8 hours as needed (for nausea).^Disp: 30 tablet^Rfl: 1 peg 3350-Electrolytes (GOLYTELY) 236-22.74-6.74 -5.86 gram suspension^Refer to printed patient instructions that will be mailed to you.^Disp: 4000 mL^Rfl: 0 Dexlansoprazole (DEXILANT) 60 mg CpDM^Take 60 mg by mouth once daily.^Disp: 90 capsule^Rfl: 2 magnesium hydroxide (MILK OF MAGNESIA) 400 mg/5 mL suspension^Take 15 mL by mouth once daily as needed for constipation.^Disp: 60 mL^Rfl: 0 bisacodyl (DULCOLAX, BISACODYL,) 10 mg supp^1 Suppository by RECTAL route once daily as needed for constipation.^Disp: 5 Suppository^Rfl: 1 lactulose (ENULOSE) 10 gram/15 mL solution^Take 15 mL by mouth twice daily.^Disp: 473 mL^Rfl: 2 famotidine (PEPCID) 40 mg tablet^Take 1 tablet by mouth once daily as needed.^Disp: 90 tablet^Rfl: 2 MUCUS RELIEF ER 600 mg 12 hr tablet^Take 1,200 mg by mouth twice daily.^Disp: ^Rfl: montelukast (SINGULAIR) 10 mg tablet^Take 1 tablet by mouth daily at bedtime.^Disp: 90 tablet^Rfl: 3 fphgfyrbzgj-dohnjhkdz-mdbvgfxx (TRELEGY ELLIPTA) 200-62.5-25 mcg inhalation powder^Inhale as instructed.^Disp: ^Rfl: zolpidem (AMBIEN) 5 mg tablet^Take 1 tablet by mouth at bedtime as needed for sedation for up to 30days.^Disp: 15 tablet^Rfl: 1 albuterol HFA (VENTOLIN HFA) 90 mcg/actuation inhaler^Inhale 2 Puffs as instructed every 4 hours asneeded for wheezing/shortness of breath.^Disp: 18 g^Rfl: 2 L. acidophilus-L. rhamnosus 15 billion cell cap^Take 1 capsule by mouth once daily. FLORAJEN WOMEN.If on antibiotic, take at least 1-2 hours before or after antibiotic. KEEP REFRIGERATED^Disp: 30 capsule^Rfl: 11 ergocalciferol 50,000 unit capsule (VITAMIN D2, DRISDOL)^Take 1 capsule by mouth one time a week.^Disp: 4 capsule^Rfl: 1 albuterol (PROVENTIL) 2.5 mg /3 mL (0.083 %) nebulizer solution^Use 3 mL via nebulizer every 6 hours as needed.^Disp: 180 mL^Rfl: 3 PHENYLephrine-cocoa butter (PREPARATION H,PE,CB,) 0.25-88.44 % supp^1 Suppository by RECTAL route once daily.^Disp: 30 Suppository^Rfl: 2 (Patient taking differently: 1 Suppository by RECTAL route asneeded.) COMPACT SPACE CHAMBER^as directed.^Disp: ^Rfl: ipratropium-albuterol (DUONEB) 0.5 mg-3 mg(2.5 mg base)/3 mL nebu^Inhale 3 mL as instructed every 4hours as needed.^Disp: 20 Vial^Rfl: 0 PULSE OXIMETER CONTEC^1 Each as needed.^Disp: 1 Each^Rfl: 0 Comp Stocking,Knee,Regular,Med misc^2 Each once daily.^Disp: 2 Each^Rfl: 0 loratadine (CLARITIN) 10 mg tablet^Take 1 tablet by mouth once daily.^Disp: 10 tablet^Rfl: 0 fluticasone (FLONASE) 50 mcg/actuation nasal spray^Use 2 Sprays in each nostril once daily. Rinse mouth after use.^Disp: 1 Bottle^Rfl: 11 FAMILY HISTORY Problem Relation Age of Onset Hypertension Mother Heart Mother Eczema Mother other (AAA) Mother other (Fibromyalgia) Mother Alcohol/Drug Father Alcohol Cancer Father lung Colon Cancer Father Hypertension Sister Asthma Sister other (Migraines) Sister other (Gout) Sister other (Fibromyalgia) Sister Breast Cancer Maternal Aunt 2 maternal aunts. other (MICRO PHOTOGRAPHER cancer) No Family History Anesthesia Problems No Family History Blood Clots No Family History Social History Tobacco Use Smoking status: Every Day Packs/day: 0.25 Years: 29.00 Additional pack years: 0.00 Total pack years: 7.25 Types: Cigarettes Start date: 11/17/1986 Last attempt to quit: 11/23/2021 Years since quittin.6 Smokeless tobacco: Never Vaping Use Vaping Use: Never used Substance Use Topics Alcohol use: Not Currently Comment: Rarely Drug use: No PHYSICAL EXAM BP 122/70 Pulse 92 Resp 16 Wt 59.4 kg (131 lb) SpO2 97% BMI 24.75 kg/m General Appearance: well appearing, in no acute distress, alert Skin: Skin color, texture, turgor normal for age; Eyes: conjunctiva pink and moist, no icterus, sclera white, non-injected Lungs: Lungs with faint expiratory and inspiratory wheezes throughout. No rhonchi, rales. Heart: RRR without murmur, gallop, or rubs. No ectopy Health maintenance reviewed with patient: Pap Testing due on 10/22/2021 DTaP,Tdap,Td Vaccine(6 - Tdap) due on 04/11/2024 Hepatitis B Vaccine(1 of 3 - 3-dose series) due on 04/11/2024 Shingrix Vaccine(1 of 2) due on 04/11/2024 Pneumococcal Vaccine(2 of 2 - PCV) due on 04/11/2024 Mammogram Screening due on 03/13/2024 Annual PCP Team Chronic Disease Visit due on 06/08/2024 HPV Testing due on 10/22/2025 Diabetes Screening due on 06/08/2026 Lipid Screening due on 11/15/2027 Colorectal Cancer Screening due on 01/12/2033 Alpha-1 Antitrypsin Deficiency Screening Completed Spirometry Completed Influenza Vaccine Completed Hepatitis C Screening Completed HIV Screening Completed Covid-19 Vaccine Completed HPV Vaccine Aged Out DATA REVIEWED: No new labs ASSESSMENT/PLAN: 1. RUQ abdominal pain - ICD9: 789.01, ICD10: R10.11 (primary diagnosis) - continue with plans for cholecystectomy and recommendations by general surgery 2. Gastroesophageal reflux disease, unspecified whether esophagitis present - ICD9: 530.81, ICD10: K21.9 - uncontrolled -continue with recommendations by GI - Discussed lifestyle modifications including limiting caffeine, no meals three hours before sleep,and head of bed elevation 3. Chronic obstructive pulmonary disease, unspecified COPD type (HCC) - ICD9: 496, ICD10: J44.9 Stable and at baseline Encourage smoking cessation Continue current medications and recommendations by pulmonology 4. Vomiting without nausea, unspecified vomiting type - ICD9: 787.03, ICD10: R11.11 -uncontrolled, if no improvement with cholecystectomy will need to re-evaluated with GI and possible surgery for uncontrolled reflux 5. Tobacco use disorder - ICD9: 305.1, ICD10: F17.200 - Cessation encouraged. - Physiologic and physical aspects of tobacco addiction as well as strategies for quitting were discussed. - Counseling was given focusing on the harmful effects of this addiction especially given the patient's medical condition(s) which will be worsened because of the chemicals in tobacco. 6. Chronic pain syndrome - ICD9: 338.4, ICD10: G89.4 Stable at this time - dicussed with her GI issues, ibuprofen is contraindicated. States she only takes average of 1 tabat most 2 tabs a week and is aware of concerns. - IBUPROFEN 800 MG TABLET 7. History of environmental allergies - ICD9: V15.09, ICD10: Z91.09 Not discussed today refill needed Prescription instructions reviewed with patient as applicable. Potential red flag symptoms discussed with the patient. Reviewed appropriate action plan to take if red flag symptoms occur. Patient agreeable to treatment plan. Laura Hernandez APRN.CNP documented in this encounter[facility]12-[facility] Telephone encounter Note * Telephone Encounter - Olivia Montiel - 06/26/2023 2:29 PM EST 07/24/2023 BRIAN ALVA [facility]12-[facility]23 Miscellaneous Notes* Telephone Encounter - Olivia Montiel - 06/26/2023 2:29 PM EST 07/24/2023 BRIAN ALVA documented in this encounterCosho[facility]12-06-2023 Miscellaneous Notes* Telephone Encounter - Latasha Salamanca Ma - 06/13/2023 9:30 AM EST Patient notified, please assist in scheduling. * Telephone Encounter - Laura Hernandez APRN.CNP - 06/13/2023 9:15 AM EST US showing gallstones. With her symptoms, I a consulting her to general surgery for further evaluation. Take care Laura Hernandez APRN.CNP documented in this encounterCoshocton [facility]12-05-2023 History of Present illness Narrative* Jerica Dyson RDMS - 06/12/2023 7:45 AM EST Radiology Service Progress Note PATIENT NAME: Jane Steinberg DATE OF SERVICE: June 12, 2023 TIME: 2:47 PM PATIENT IDENTITY VERIFICATION COMPLETED USING TWO (2) IDENTIFIERS: Name and Date of confirmedby patient verbally. FALL SCREENING: Has the patient had 2 falls in the last year or 1 fall with injury or currently using an Ambulatory Assistive Device (Walker, Cane, Wheelchair, Crutches, etc.)? No PATIENT GENDER DATA: Female. status: : No status: NO. PATIENT RELEVANT IMPLANT DATA REVIEWED: Not Applicable RADIOLOGY DEPARTMENT: Ultrasound PERIPHERAL IV DATA: Not applicable SIGNED BY: Jerica Dyson RDMS [facility] June 12, 2023 2:47 PM documented in this encounterCoshocton [facility]12-01-2023 History of Present illness Narrative* Laura Hernandez APRN.CNP - 06/08/2023 11:48 AM EST CC: Patient presents with: Sleep Problem: Pain: Right side chest Abdominal Pain: HPI Jane Steinberg is a 52 year old female who presents today for RUQ and Right sided chest pain anduncontrolled GERD. Unable to sleep because she wakes up throwing up and is worried she will in her sleep if she takes medication to keep her asleep. Recent CT of chest showing stable lung noduleswithout any other concern. Has been to [facility] ER for the right sided pain. CXR EKG and lab work all unremarkable. Slight decrease in kidney function and slight elevation in WBCs noted. Gets a sharp pain radiating up from RUQ to right chest which occur randomly and last for a couple of minutes. Is not accompanied with other s ymptoms. Has heartburn and nausea all the time. Follows closely with GI for uncontrolled reflux andchronic constipation. Sees general surgery on the for possible surgical intervention. Still has her gallbladder. Had appendix removed over 20 years ago. Denies fever, chills, difficulty or pain urinating, chest pain, edema, palpitations, dizziness, syncope, or increase in chronic cough wheezing or SOB due to COPD. REVIEW OF SYSTEMS See HPI PAST MEDICAL HISTORY Diagnosis Date Anorexia nervosa 06/11/2006 Stable; treated in past Anxiety Asthma 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 02/13/2020 Bulimia nervosa 06/11/2006 Stable, treated in past Cancer (HCC) Chest pain Chronic obstructive pulmonary disease (COPD) (HCC) Emphysema lung (HCC) GERD (gastroesophageal reflux disease) H. pylori infection cronic Hiatal hernia 02/13/2020 small HISTORY OF CANCER OF UTERUS 06/11/2006 2004, Hysterectomy - complete Internal hemorrhoids Lung disease Migraines Snoring Tobacco use disorder 06/11/2006 Quit 09/2015. Unspecified asthma(493.90) Childhood diagnosis. PAST SURGICAL HISTORY Procedure Laterality Date APPENDECTOMY 1998 COLONOSCOPY 01/12/2023 no specimens, next colonoscopy 2029 EGD WITH BIOPSY(S) 03/13/2017 Dr. Shook EGD WITH BIOPSY(S) 02/13/2020 small hiatal hernia; Duggan's without dysplasia; Dr. Montoya EGD WITH BIOPSY(S) 10/06/2021 H. pylori +; Duggan's without dysplasia; Dr. Riggs EGD WITH BIOPSY(S) 09/12/2022 neg for H. pylori; Dr. Riggs PAST SURGICAL HISTORY OF 2003 Lymph Node Bx 1999 TOTAL ABDOMINAL HYSTERECT W/WO RMVL TUBE OVARY 2004 and BSO - pelvic pain/benign ALLERGIES Penicillins MEDICATIONS amitriptyline (ELAVIL) 100 mg tablet^Take 1 tablet by mouth daily at bedtime.^Disp: 90 tablet^Rfl: 1 diclofenac (VOLTAREN) 1 % topical gel^Apply 2 g to affected area twice daily.^Disp: 50 g^Rfl: 0 FASENRA PEN 30 mg/mL auto-injector^^Disp: ^Rfl: tenapanor (IBSRELA) 50 mg tablet^Take 1 tablet (50 mg) by mouth twice daily. 10 minutes before eating.^Disp: 180 tablet^Rfl: 1 promethazine (PHENERGAN) 25 mg tablet^Take 1 tablet by mouth every 8 hours as needed (for nausea).^Disp: 30 tablet^Rfl: 1 Dexlansoprazole (DEXILANT) 60 mg CpDM^Take 60 mg by mouth once daily.^Disp: 90 capsule^Rfl: 2 magnesium hydroxide (MILK OF MAGNESIA) 400 mg/5 mL suspension^Take 15 mL by mouth once daily as needed for constipation.^Disp: 60 mL^Rfl: 0 bisacodyl (DULCOLAX, BISACODYL,) 10 mg supp^1 Suppository by RECTAL route once daily as needed for constipation.^Disp: 5 Suppository^Rfl: 1 lactulose (ENULOSE) 10 gram/15 mL solution^Take 15 mL by mouth twice daily.^Disp: 473 mL^Rfl: 2 famotidine (PEPCID) 40 mg tablet^Take 1 tablet by mouth once daily as needed.^Disp: 90 tablet^Rfl: 2 MUCUS RELIEF ER 600 mg 12 hr tablet^Take 1,200 mg by mouth twice daily.^Disp: ^Rfl: montelukast (SINGULAIR) 10 mg tablet^Take 1 tablet by mouth daily at bedtime.^Disp: 90 tablet^Rfl: 3 xrgctqwesvl-kpnukcbdx-msoazhms (TRELEGY ELLIPTA) 200-62.5-25 mcg inhalation powder^Inhale as instructed.^Disp: ^Rfl: zolpidem (AMBIEN) 5 mg tablet^Take 1 tablet by mouth at bedtime as needed for sedation for up to 30days.^Disp: 15 tablet^Rfl: 1 albuterol HFA (VENTOLIN HFA) 90 mcg/actuation inhaler^Inhale 2 Puffs as instructed every 4 hours asneeded for wheezing/shortness of breath.^Disp: 18 g^Rfl: 2 L. acidophilus-L. rhamnosus 15 billion cell cap^Take 1 capsule by mouth once daily. FLORAJEN WOMEN.If on antibiotic, take at least 1-2 hours before or after antibiotic. KEEP REFRIGERATED^Disp: 30 capsule^Rfl: 11 ergocalciferol 50,000 unit capsule (VITAMIN D2, DRISDOL)^Take 1 capsule by mouth one time a week.^Disp: 4 capsule^Rfl: 1 albuterol (PROVENTIL) 2.5 mg /3 mL (0.083 %) nebulizer solution^Use 3 mL via nebulizer every 6 hours as needed.^Disp: 180 mL^Rfl: 3 PHENYLephrine-cocoa butter (PREPARATION H,PE,CB,) 0.25-88.44 % supp^1 Suppository by RECTAL route once daily.^Disp: 30 Suppository^Rfl: 2 (Patient taking differently: 1 Suppository by RECTAL route asneeded.) COMPACT SPACE CHAMBER^as directed.^Disp: ^Rfl: ipratropium-albuterol (DUONEB) 0.5 mg-3 mg(2.5 mg base)/3 mL nebu^Inhale 3 mL as instructed every 4hours as needed.^Disp: 20 Vial^Rfl: 0 PULSE OXIMETER CONTEC^1 Each as needed.^Disp: 1 Each^Rfl: 0 loratadine (CLARITIN) 10 mg tablet^Take 1 tablet by mouth once daily.^Disp: 10 tablet^Rfl: 0 fluticasone (FLONASE) 50 mcg/actuation nasal spray^Use 2 Sprays in each nostril once daily. Rinse mouth after use.^Disp: 1 Bottle^Rfl: 11 peg 3350-Electrolytes (GOLYTELY) 236-22.74-6.74 -5.86 gram suspension^Refer to printed patient instructions that will be mailed to you.^Disp: 4000 mL^Rfl: 0 Comp Stocking,Knee,Regular,Med misc^2 Each once daily.^Disp: 2 Each^Rfl: 0 FAMILY HISTORY Problem Relation Age of Onset Hypertension Mother Heart Mother Eczema Mother other (AAA) Mother other (Fibromyalgia) Mother Alcohol/Drug Father Alcohol Cancer Father lung Colon Cancer Father Hypertension Sister Asthma Sister other (Migraines) Sister other (Gout) Sister other (Fibromyalgia) Sister Breast Cancer Maternal Aunt 2 maternal aunts. other (MICRO PHOTOGRAPHER cancer) No Family History Social History Tobacco Use Smoking status: Every Day Packs/day: 0.25 Years: 29.00 Additional pack years: 0.00 Total pack years: 7.25 Types: Cigarettes Start date: 11/17/1986 Last attempt to quit: 11/23/2021 Years since quittin.5 Smokeless tobacco: Never Vaping Use Vaping Use: Never used Substance Use Topics Alcohol use: Not Currently Comment: Rarely Drug use: No PHYSICAL EXAM BP 120/80 Pulse 84 Resp 16 Wt 59.9 kg (132 lb) BMI 24.94 kg/m General Appearance: well appearing, in no acute distress, alert Pysch: mood and affect broad and appropriate Skin: Skin color, texture, turgor normal for age; Eyes: conjunctiva pink and moist, no icterus, sclera white, non-injected Lungs: Lungs clear to auscultation. No wheezing, rhonchi, rales. Heart: RRR without murmur, gallop, or rubs. No ectopy Abdomen: Abdomen soft, non-tender. Bowel sounds normal. No masses, organomegaly Health maintenance reviewed with patient: Pap Testing due on 10/22/2021 DTaP,Tdap,Td Vaccine(6 - Tdap) due on 04/11/2024 Hepatitis B Vaccine(1 of 3 - 3-dose series) due on 04/11/2024 Shingrix Vaccine(1 of 2) due on 04/11/2024 Pneumococcal Vaccine(2 - PCV) due on 04/11/2024 Mammogram Screening due on 03/13/2024 Annual PCP Team Chronic Disease Visit due on 06/08/2024 HPV Testing due on 10/22/2025 Diabetes Screening due on 03/23/2026 Lipid Screening due on 11/15/2027 Colorectal Cancer Screening due on 01/12/2033 Alpha-1 Antitrypsin Deficiency Screening Completed Spirometry Completed Influenza Vaccine Completed Hepatitis C Screening Completed HIV Screening Completed Covid-19 Vaccine Completed HPV Vaccine Aged Out DATA REVIEWED: Outside chart from [facility] reviewed. ASSESSMENT/PLAN: 1. RUQ abdominal pain - ICD9: 789.01, ICD10: R10.11 (primary diagnosis) - will further evaluate but needs to continue to follow up GI - UA DIP, URINE (POC) -normal - US ABD RIGHT UPPER QUADRANT - BASIC METABOLIC PNL - CBC + DIFF 2. Nausea - ICD9: 787.02, ICD10: R11.0 As above - UA DIP, URINE (POC) - US ABD RIGHT UPPER QUADRANT - BASIC METABOLIC PNL 3. Gastroesophageal reflux disease, unspecified whether esophagitis present - ICD9: 530.81, ICD10: K21.9 - uncontrolled - keep upcoming appointment with general surgery - large amount of coffee throughout the day. Patient to decrease this to see if symptoms improve. - Discussed lifestyle modifications including losing weight, limiting caffeine, no meals three hours before sleep, and head of bed elevation 4. Leukocytosis, unspecified type - ICD9: 288.60, ICD10: D72.829 - UA DIP, URINE (POC) - normal - CBC + DIFF Prescription instructions reviewed with patient as applicable. Potential red flag symptoms discussed with the patient. Reviewed appropriate action plan to take if red flag symptoms occur. Patient agreeable to treatment plan. Laura Hernandez APRN.CNP documented in this encounterCos[facility]11-08-2023 History of Present illness Narrative* Jerica Dyson RDMS - 05/16/2023 10:45 AM EST Radiology Service Progress Note PATIENT NAME: Jane Steinberg DATE OF SERVICE: May 16, 2023 TIME: 4:19 PM PATIENT IDENTITY VERIFICATION COMPLETED USING TWO (2) IDENTIFIERS: Name and Date of confirmedby patient verbally. FALL SCREENING: Has the patient had 2 falls in the last year or 1 fall with injury or currently using an Ambulatory Assistive Device (Walker, Cane, Wheelchair, Crutches, etc.)? No PATIENT GENDER DATA: Female. status: : No status: NO. PATIENT RELEVANT IMPLANT DATA REVIEWED: Not Applicable RADIOLOGY DEPARTMENT: Ultrasound PERIPHERAL IV DATA: Not applicable SIGNED BY: Jerica Dyson RDMS RVT May 16, 2023 4:19 PM documented in this encounterCoshocton [facility]11-08-2023 Miscellaneous Notes* Result Encounter Note - Renetta Kline APRN.ANDROID DEVELOPER - 05/16/2023 10:45 AM EST Benign findings, return to annual screening documented in this encounterCoshocton [facility]10-27-2023 Procedure [facility]10[facility]27[facility] History of Present illness Narrative* Renetta Kline APRN.CNS - 05/04/2023 1:40 PM EDT Images from the original note were not included. SUBJECTIVE: Pap Testing due on 10/22/2021 HPI Jane Steinberg is a 52 year old female. 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 She reports no injury illness or fever. Reports axillary swelling present for 3 days or so. No prior occurrence. No palpable breast mass. Review of Systems Constitutional: Negative. Objective BP 121/80 Pulse 91 Resp 16 Wt 60.3 kg (133 lb) BMI 25.13 kg/m Physical Exam Vitals and nursing note reviewed. Constitutional: Appearance: Normal appearance. HENT: Head: Normocephalic and atraumatic. Eyes: Conjunctiva/sclera: Conjunctivae normal. Cardiovascular: Rate and Rhythm: Normal rate. Pulmonary: Effort: Pulmonary effort is normal. Chest: Comments: large mobile mass TTP right axilla, axillary swelling, no breast mass appreciated on palpation Skin: General: Skin is warm and dry. Neurological: Mental Status: She is alert. ALLERGIES Allergen Reactions Penicillins Anaphylaxis amitriptyline (ELAVIL) 100 mg tablet^Take 1 tablet by mouth daily at bedtime.^Disp: 90 tablet^Rfl: 1 diclofenac (VOLTAREN) 1 % topical gel^Apply 2 g to affected area twice daily.^Disp: 50 g^Rfl: 0 FASENRA PEN 30 mg/mL auto-injector^^Disp: ^Rfl: tenapanor (IBSRELA) 50 mg tablet^Take 1 tablet (50 mg) by mouth twice daily. 10 minutes before eating.^Disp: 180 tablet^Rfl: 1 promethazine (PHENERGAN) 25 mg tablet^Take 1 tablet by mouth every 8 hours as needed (for nausea).^Disp: 30 tablet^Rfl: 1 peg 3350-Electrolytes (GOLYTELY) 236-22.74-6.74 -5.86 gram suspension^Refer to printed patient instructions that will be mailed to you.^Disp: 4000 mL^Rfl: 0 Dexlansoprazole (DEXILANT) 60 mg CpDM^Take 60 mg by mouth once daily.^Disp: 90 capsule^Rfl: 2 magnesium hydroxide (MILK OF MAGNESIA) 400 mg/5 mL suspension^Take 15 mL by mouth once daily as needed for constipation.^Disp: 60 mL^Rfl: 0 bisacodyl (DULCOLAX, BISACODYL,) 10 mg supp^1 Suppository by RECTAL route once daily as needed for constipation.^Disp: 5 Suppository^Rfl: 1 (Patient not taking: Reported on 03/05/2023) lactulose (ENULOSE) 10 gram/15 mL solution^Take 15 mL by mouth twice daily.^Disp: 473 mL^Rfl: 2 famotidine (PEPCID) 40 mg tablet^Take 1 tablet by mouth once daily as needed.^Disp: 90 tablet^Rfl: 2 doxycycline (VIBRA-TABS) 100 mg tablet^^Disp: ^Rfl: MUCUS RELIEF ER 600 mg 12 hr tablet^Take 1,200 mg by mouth twice daily.^Disp: ^Rfl: montelukast (SINGULAIR) 10 mg tablet^Take 1 tablet by mouth daily at bedtime.^Disp: 90 tablet^Rfl: 3 sbbmjjmkorx-uxtbisjez-lwqkabgl (TRELEGY ELLIPTA) 200-62.5-25 mcg inhalation powder^Inhale as instructed.^Disp: ^Rfl: zolpidem (AMBIEN) 5 mg tablet^Take 1 tablet by mouth at bedtime as needed for sedation for up to 30days.^Disp: 15 tablet^Rfl: 1 albuterol HFA (VENTOLIN HFA) 90 mcg/actuation inhaler^Inhale 2 Puffs as instructed every 4 hours asneeded for wheezing/shortness of breath.^Disp: 18 g^Rfl: 2 L. acidophilus-L. rhamnosus 15 billion cell cap^Take 1 capsule by mouth once daily. FLORAJEN WOMEN.If on antibiotic, take at least 1-2 hours before or after antibiotic. KEEP REFRIGERATED^Disp: 30 capsule^Rfl: 11 ergocalciferol 50,000 unit capsule (VITAMIN D2, DRISDOL)^Take 1 capsule by mouth one time a week.^Disp: 4 capsule^Rfl: 1 albuterol (PROVENTIL) 2.5 mg /3 mL (0.083 %) nebulizer solution^Use 3 mL via nebulizer every 6 hours as needed.^Disp: 180 mL^Rfl: 3 PHENYLephrine-cocoa butter (PREPARATION H,PE,CB,) 0.25-88.44 % supp^1 Suppository by RECTAL route once daily.^Disp: 30 Suppository^Rfl: 2 (Patient taking differently: 1 Suppository by RECTAL route asneeded.) COMPACT SPACE CHAMBER^as directed.^Disp: ^Rfl: ipratropium-albuterol (DUONEB) 0.5 mg-3 mg(2.5 mg base)/3 mL nebu^Inhale 3 mL as instructed every 4hours as needed.^Disp: 20 Vial^Rfl: 0 PULSE OXIMETER CONTEC^1 Each as needed.^Disp: 1 Each^Rfl: 0 Comp Stocking,Knee,Regular,Med misc^2 Each once daily.^Disp: 2 Each^Rfl: 0 loratadine (CLARITIN) 10 mg tablet^Take 1 tablet by mouth once daily.^Disp: 10 tablet^Rfl: 0 fluticasone (FLONASE) 50 mcg/actuation nasal spray^Use 2 Sprays in each nostril once daily. Rinse mouth after use.^Disp: 1 Bottle^Rfl: 11 PAST MEDICAL HISTORY Diagnosis Date Anorexia nervosa 06/11/2006 Stable; treated in past Anxiety Asthma 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 02/13/2020 Bulimia nervosa 06/11/2006 Stable, treated in past Cancer (HCC) Chest pain Chronic obstructive pulmonary disease (COPD) (HCC) Emphysema lung (HCC) GERD (gastroesophageal reflux disease) H. pylori infection cronic Hiatal hernia 02/13/2020 small HISTORY OF CANCER OF UTERUS 06/11/2006 2004, Hysterectomy - complete Internal hemorrhoids Lung disease Migraines Snoring Tobacco use disorder 06/11/2006 Quit 09/2015. Unspecified asthma(493.90) Childhood diagnosis. Social History Tobacco Use Smoking status: Every Day Packs/day: 0.25 Years: 29.00 Additional pack years: 0.00 Total pack years: 7.25 Types: Cigarettes Start date: 11/17/1986 Last attempt to quit: 11/23/2021 Years since quittin.4 Smokeless tobacco: Never Vaping Use Vaping Use: Never used Substance Use Topics Alcohol use: Not Currently Comment: Rarely Drug use: No ASSESSMENT/PLAN: 1. Right axillary swelling - ICD9: 729.81, ICD10: M79.89 (primary diagnosis) 2. Pain in right axilla - ICD9: 729.5, ICD10: M79.621 Multiple mass deep in right axilla with surrounding swelling, possible infection. We will treat with antibiotic and recheck in 3 to 7 days. Ultrasound axilla only. Follow-up with diagnostic mammogram if needed. ER for any severe or concerning symptoms. - US AXILLA ONLY RIGHT - DELTA DIAGNOSTIC RIGHT Renetta Kline APRN.CNS Medical Decision Making: Problems: Low: Acute, uncomplicated illness or injury Data: Unique test(s) ordered: 2 Risk: Moderate: Drug management Medical Decision Making Level: 3 - Low documented in this encounterCoshoct[facility]09-18-2023 Miscellaneous Notes* Telephone Encounter - Sonya Mark - 03/26/2023 1:02 PM EDT Patient has been identified by name and date of : No Patient phones for refill(s): Requested Prescriptions Pending Prescriptions Disp Refills amitriptyline (ELAVIL) 100 mg tablet 90 tablet 1 Sig: Take 1 tablet by mouth daily at bedtime. Date of last office visit in primary care: 03/23/23 Last 2 Encounter Wt Readings: Date: Wt: 03/23/2023 59.1 kg (130 lb 3.2 oz) 03/05/2023 58.8 kg (129 lb 9.6 oz) Previous labs/tests for medication: Not applicable Please advise. Thank you. Sonya Mark documented in this encounterCoshocton [facility]09-15-2023 History of Present illness Narrative* Laura HernandezEVELYN.DUMPER - 03/23/2023 7:28 AM EDT CC: Patient presents with: Difficulty Urinating: Pain with urination x 2 weeks Chest Pain: Right side down the right arm off and on x 1 week HPI Jane Steinberg is a 52 year old female who presents today for concerns of pain with urinating and chest pain. 1 week ago started with right chest pain that radiates during her right arm. No injury, previous injuries/surgeries, change in activity, swelling, redness, weakness, numbness, tingling, neck pain, decreased ROM, nausea, sweating, increase in chronic shortness of breath, increase in chronic cough/wheezing, or recent COPD exacerbation. Pain is described as sharp to her chest then radiates still sharp all the way down her RUE to her wrist. No pain to hands. Pain can occur at anytime whether with activity or rest. Lasts for a few minutes and then self resolves. Has had pain with urination off and on for the past 2 weeks but became worse and with every urination a few days ago. Gets pain and pressure to lower abdomen with starting, during and after urination. Denies fever, chills, dark/fouls smelling urine, or difficulty urinating. Had history of constipation but has been resolved for the past month. REVIEW OF SYSTEMS General: no fevers, no chills, no night sweats, no recurrent infections, no change in appetite, no change in energy, and no significant changes in weight Respiratory: See HPI Cardiovascular: no chest pressure, no palpitations, and no swelling Neurologic: No headache, weakness, numbness, tingling, dizziness, memory loss, syncope. PAST MEDICAL HISTORY Diagnosis Date Anorexia nervosa 06/11/2006 Stable; treated in past Anxiety Asthma 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 02/13/2020 Bulimia nervosa 06/11/2006 Stable, treated in past Cancer (HCC) Chest pain Chronic obstructive pulmonary disease (COPD) (HCC) Emphysema lung (HCC) GERD (gastroesophageal reflux disease) H. pylori infection cronic Hiatal hernia 02/13/2020 small HISTORY OF CANCER OF UTERUS 06/11/2006 2004, Hysterectomy - complete Internal hemorrhoids Lung disease Migraines Snoring Tobacco use disorder 06/11/2006 Quit 09/2015. Unspecified asthma(493.90) Childhood diagnosis. PAST SURGICAL HISTORY Procedure Laterality Date APPENDECTOMY 1998 EGD WITH BIOPSY(S) 03/13/2017 Dr. Shook EGD WITH BIOPSY(S) 02/13/2020 small hiatal hernia; Duggan's without dysplasia; Dr. Montoya EGD WITH BIOPSY(S) 10/06/2021 H. pylori +; Duggan's without dysplasia; Dr. Riggs EGD WITH BIOPSY(S) 09/12/2022 neg for H. pylori; Dr. Riggs PAST SURGICAL HISTORY OF 2003 Lymph Node Bx 1999 TOTAL ABDOMINAL HYSTERECT W/WO RMVL TUBE OVARY 2004 and BSO - pelvic pain/benign ALLERGIES Penicillins MEDICATIONS FASENRA PEN 30 mg/mL auto-injector^^Disp: ^Rfl: LINZESS 290 mcg capsule^TAKE 1 CAPSULE BY MOUTH ONCE DAILY 6AM.^Disp: 90 capsule^Rfl: 1 tenapanor (IBSRELA) 50 mg tablet^Take 1 tablet (50 mg) by mouth twice daily. 10 minutes before eating.^Disp: 180 tablet^Rfl: 1 ibuprofen (MOTRIN) 800 mg tablet^Take 1 tablet by mouth every 8 hours as needed for pain.^Disp: 60 tablet^Rfl: 1 promethazine (PHENERGAN) 25 mg tablet^Take 1 tablet by mouth every 8 hours as needed (for nausea).^Disp: 30 tablet^Rfl: 1 Dexlansoprazole (DEXILANT) 60 mg CpDM^Take 60 mg by mouth once daily.^Disp: 90 capsule^Rfl: 2 magnesium hydroxide (MILK OF MAGNESIA) 400 mg/5 mL suspension^Take 15 mL by mouth once daily as needed for constipation.^Disp: 60 mL^Rfl: 0 lactulose (ENULOSE) 10 gram/15 mL solution^Take 15 mL by mouth twice daily.^Disp: 473 mL^Rfl: 2 famotidine (PEPCID) 40 mg tablet^Take 1 tablet by mouth once daily as needed.^Disp: 90 tablet^Rfl: 2 amitriptyline (ELAVIL) 100 mg tablet^Take 1 tablet by mouth daily at bedtime.^Disp: 90 tablet^Rfl: 1 MUCUS RELIEF ER 600 mg 12 hr tablet^Take 1,200 mg by mouth twice daily.^Disp: ^Rfl: lansoprazole (PREVACID) 30 mg capsule^Take 1 capsule by mouth twice daily. Take on empty stomach atleast 30 minutes before eating.^Disp: 180 capsule^Rfl: 3 montelukast (SINGULAIR) 10 mg tablet^Take 1 tablet by mouth daily at bedtime.^Disp: 90 tablet^Rfl: 3 zmkkmbvoiwb-baobjnkgr-ezxkfgny (TRELEGY ELLIPTA) 200-62.5-25 mcg inhalation powder^Inhale as instructed.^Disp: ^Rfl: zolpidem (AMBIEN) 5 mg tablet^Take 1 tablet by mouth at bedtime as needed for sedation for up to 30days.^Disp: 15 tablet^Rfl: 1 albuterol HFA (VENTOLIN HFA) 90 mcg/actuation inhaler^Inhale 2 Puffs as instructed every 4 hours asneeded for wheezing/shortness of breath.^Disp: 18 g^Rfl: 2 L. acidophilus-L. rhamnosus 15 billion cell cap^Take 1 capsule by mouth once daily. FLORAJEN WOMEN.If on antibiotic, take at least 1-2 hours before or after antibiotic. KEEP REFRIGERATED^Disp: 30 capsule^Rfl: 11 ergocalciferol 50,000 unit capsule (VITAMIN D2, DRISDOL)^Take 1 capsule by mouth one time a week.^Disp: 4 capsule^Rfl: 1 albuterol (PROVENTIL) 2.5 mg /3 mL (0.083 %) nebulizer solution^Use 3 mL via nebulizer every 6 hours as needed.^Disp: 180 mL^Rfl: 3 PHENYLephrine-cocoa butter (PREPARATION H,PE,CB,) 0.25-88.44 % supp^1 Suppository by RECTAL route once daily.^Disp: 30 Suppository^Rfl: 2 (Patient taking differently: 1 Suppository by RECTAL route asneeded.) COMPACT SPACE CHAMBER^as directed.^Disp: ^Rfl: ipratropium-albuterol (DUONEB) 0.5 mg-3 mg(2.5 mg base)/3 mL nebu^Inhale 3 mL as instructed every 4hours as needed.^Disp: 20 Vial^Rfl: 0 PULSE OXIMETER CONTEC^1 Each as needed.^Disp: 1 Each^Rfl: 0 Comp Stocking,Knee,Regular,Med misc^2 Each once daily.^Disp: 2 Each^Rfl: 0 loratadine (CLARITIN) 10 mg tablet^Take 1 tablet by mouth once daily.^Disp: 10 tablet^Rfl: 0 fluticasone (FLONASE) 50 mcg/actuation nasal spray^Use 2 Sprays in each nostril once daily. Rinse mouth after use.^Disp: 1 Bottle^Rfl: 11 peg 3350-Electrolytes (GOLYTELY) 236-22.74-6.74 -5.86 gram suspension^Refer to printed patient instructions that will be mailed to you.^Disp: 4000 mL^Rfl: 0 bisacodyl (DULCOLAX, BISACODYL,) 10 mg supp^1 Suppository by RECTAL route once daily as needed for constipation.^Disp: 5 Suppository^Rfl: 1 (Patient not taking: Reported on 03/05/2023) doxycycline (VIBRA-TABS) 100 mg tablet^^Disp: ^Rfl: FAMILY HISTORY Problem Relation Age of Onset Hypertension Mother Heart Mother Eczema Mother other (AAA) Mother other (Fibromyalgia) Mother Alcohol/Drug Father Alcohol Cancer Father lung Colon Cancer Father Hypertension Sister Asthma Sister other (Migraines) Sister other (Gout) Sister other (Fibromyalgia) Sister Breast Cancer Maternal Aunt 2 maternal aunts. other (MICRO PHOTOGRAPHER cancer) No Family History Social History Tobacco Use Smoking status: Every Day Packs/day: 0.25 Years: 29.00 Additional pack years: 0.00 Total pack years: 7.25 Types: Cigarettes Start date: 11/17/1986 Last attempt to quit: 11/23/2021 Years since quittin.3 Smokeless tobacco: Never Vaping Use Vaping Use: Never used Substance Use Topics Alcohol use: Not Currently Comment: Rarely Drug use: No PHYSICAL EXAM BP 130/80 Pulse 78 Resp 16 Wt 59.1 kg (130 lb 3.2 oz) BMI 24.60 kg/m General Appearance: well appearing, in no acute distress, alert Skin: Skin color, texture, turgor normal for age; Eyes: conjunctiva pink and moist, no icterus, sclera white, non-injected Lungs: Lungs clear to auscultation. No wheezing, rhonchi, rales. Heart: RRR without murmur, gallop, or rubs. No ectopy Neck: Inspection: normal and no tenderness with Palpation: ROM: Full without pain Musculoskeletal: Bilateral shoulder: normal to inspection. no tenderness with palpation of deltoid,biceps tendon, trapezius, clavicle, AC (Acromioclavicular) joint, and SC (Sternoclavicular) joint. ROM: FULL. Special tests: Drop arm: -, Empty Can: -, Infraspinatus: -, Brooks:-, Neer - Upper extremities: reflexes: +2 to bilateral U/L extremities.. Muscle strength: 5/5 upper, bilaterally, pulses palpable BUE Extremities: No deformities, edema, skin discoloration, clubbing or cyanosis. Good capillary refill. Health maintenance reviewed with patient: Hepatitis B Vaccine(1 of 3 - 3-dose series) Never done DTaP,Tdap,Td Vaccine(6 - Tdap) due on 07/31/2006 Pneumococcal Vaccine(2 - PCV) due on 01/25/2017 Shingrix Vaccine(1 of 2) Never done Pap Testing due on 10/22/2021 Covid-19 Vaccine(3 - Pfizer series) due on 11/21/2021 Influenza Vaccine(1) due on 03/09/2023 Annual PCP Team Chronic Disease Visit due on 02/09/2024 Mammogram Screening due on 03/13/2024 HPV Testing due on 10/22/2025 Diabetes Screening due on 11/22/2025 Lipid Screening due on 11/15/2027 Colorectal Cancer Screening due on 01/12/2033 Alpha-1 Antitrypsin Deficiency Screening Completed Spirometry Completed Hepatitis C Screening Completed HIV Screening Completed HPV Vaccine Aged Out DATA REVIEWED: No new labs EKG Interpretation: RHYTHM: Normal sinus rhythm at 75 beats per minute, possible left atrial enlargement AXIS: Normal axis INTERVALS: Normal DC interval QRS COMPLEX: Normal ST SEGMENT: Normal ST-T segments QT INTERVAL: Normal COMPARED WITH PRIOR: unchanged, except possible left atrial enlargement which was not found on ECHO9 months ago ASSESSMENT/PLAN: 1. Pain with urination - ICD9: 788.1, ICD10: R30.9 (primary diagnosis) - dip normal, and assessment normal. With the description of increasing pain will send for culture and start with some pyridium. - UA DIP, URINE (POC) - URINE CULTURE 2. Intermittent right-sided chest pain - ICD9: 786.59, ICD10: R07.89 - probable inflammation as EKG is without concern and no accompanying symptoms. - ECG COMPLETE - CBC - COMP METABOLIC PANEL - MAGNESIUM BLD - VITAMIN B12 BLOOD - TSH BLD - go to ER for increased chest pain, shortness of breath, palpitations or any other urgent concerns. 3. Acute pain of right shoulder - ICD9: 719.41, ICD10: M25.511 - assessment normal without injury possible inflammation - diclofenac gel as ordered - follow up for persistent or worsening symptoms 4. Gastroesophageal reflux disease without esophagitis - ICD9: 530.81, ICD10: K21.9 - has been uncontrolled for a very long time with multiple treatments, will check for any vitamin deficiencies as she may not be absorbing as well with all the numerous treatments for GERD, Esophagitis, and even resistant Hpylori last year - CBC - COMP METABOLIC PANEL - MAGNESIUM BLD - VITAMIN B12 BLOOD - VITAMIN D 25 HYDROXY 5. Vitamin D deficiency - ICD9: 268.9, ICD10: E55.9 - VITAMIN D 25 HYDROXY 6. Elevated liver enzymes - ICD9: 790.5, ICD10: R74.8 - CBC - COMP METABOLIC PANEL Prescription instructions reviewed with patient as applicable. Potential red flag symptoms discussed with the patient. Reviewed appropriate action plan to take if red flag symptoms occur. Patient agreeable to treatment plan. Laura Hernandez APRN.CNP documented in this encounterCos[facility] History of Present illness Narrative* Jerica Dyson RDMS - 03/13/2023 9:00 AM EDT Radiology Service Progress Note PATIENT NAME: Jane Steinberg DATE OF SERVICE: March 13, 2023 TIME: 10:15 AM PATIENT IDENTITY VERIFICATION COMPLETED USING TWO (2) IDENTIFIERS: Name and Date of confirmedby patient verbally. FALL SCREENING: Has the patient had 2 falls in the last year or 1 fall with injury or currently using an Ambulatory Assistive Device (Walker, Cane, Wheelchair, Crutches, etc.)? No PATIENT GENDER DATA: Female. status: : No status: NO. PATIENT RELEVANT IMPLANT DATA REVIEWED: Not Applicable RADIOLOGY DEPARTMENT: Ultrasound PERIPHERAL IV DATA: Not applicable SIGNED BY: Jerica Dyson RDMS RVT March 13, 2023 10:15 AM documented in this encounterCoshocton [facility]08-28-2023 NoteHNO ID: [id number] Author: Khanh Mata MD Service: ? Author Type: Physician Type: Progress Notes Filed: 03/05/2023 11:41 AM Note Text: [facility] [address] [address] [facility] [place] [address] Khanh Mata MD New Reflux H/P Referred by: Roselyn Tobar PA-C History of Present Illness: Patient is a 52 year old female whose Body mass index is 24.49 kg/m?. who presents to general surgery clinic for initial consultation. The patient presents with chief complaint of GERD and hiatal hernia. They report a history of heartburn, dysphagia, and regurgitation which have been ongoing for 5 years. Exacerbating factors: spicy foods but any food could cause symptoms. Alleviating factors: taking antacids. Additional symptoms: bad smell, vomiting, and choking sensation . Prior workup: EGD, UGI, colonoscopy, CT scan. Taking Dexilant pepcid and then takes tums 3 times per day. Smoke half a pack per day which she has decreased for the last 3 years. Drinks multiple cups of coffee per day. Review of Systems: Review of Systems HENT: Negative. Eyes: Negative. Respiratory: Negative. Cardiovascular: Negative. Gastrointestinal: Positive for heartburn, nausea and vomiting. Genitourinary: Negative. Musculoskeletal: Negative. Skin: Negative. Neurological: Negative. Endo/Heme/Allergies: Negative. Psychiatric/Behavioral: Negative. Past Medical History: PAST MEDICAL HISTORY Diagnosis Date Anorexia nervosa 06/11/2006 Stable; treated in past Anxiety Asthma 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 02/13/2020 Bulimia nervosa 06/11/2006 Stable, treated in past Cancer (HCC) Chest pain Chronic obstructive pulmonary disease (COPD) (HCC) Emphysema lung (HCC) GERD (gastroesophageal reflux disease) H. pylori infection cronic Hiatal hernia 02/13/2020 small HISTORY OF CANCER OF UTERUS 06/11/20062003, Hysterectomy - complete Internal hemorrhoids Lung disease Migraines Snoring Tobacco use disorder 06/11/2006 Quit 09/2015. Unspecified asthma(493.90) Childhood diagnosis. Past Surgical History: PAST SURGICAL HISTORY Procedure Laterality Date APPENDECTOMY 1998 EGD WITH BIOPSY(S) 03/13/2017 Dr. Shook EGD WITH BIOPSY(S) 02/13/2020 small hiatal hernia; Duggan's without dysplasia; Dr. Monotya EGD WITH BIOPSY(S) 10/06/2021 H. pylori +; Duggan's without dysplasia; Dr. Riggs EGD WITH BIOPSY(S) 09/12/2022 neg for H. pylori; Dr. Riggs PAST SURGICAL HISTORY OF 2003 Lymph Node Bx 1999 TOTAL ABDOMINAL HYSTERECT W/WO RMVL TUBE OVARY 2004 and BSO - pelvic pain/benign Current Medications: Current Outpatient Medications Medication Sig FASENRA PEN 30 mg/mL auto-injector LINZESS 290 mcg capsule TAKE 1 CAPSULE BY MOUTH ONCE DAILY 6AM. tenapanor (IBSRELA) 50 mg tablet Take 1 tablet (50 mg) by mouth twice daily. 10 minutes before eating. ibuprofen (MOTRIN) 800 mg tablet Take 1 tablet by mouth every 8 hours as needed for pain. promethazine (PHENERGAN) 25 mg tablet Take 1 tablet by mouth every 8 hours as needed (for nausea). peg 3350-Electrolytes (GOLYTELY) 236-22.74-6.74 -5.86 gram suspension Refer to printed patient instructions that will be mailed to you. Dexlansoprazole (DEXILANT) 60 mg CpDM Take 60 mg by mouth once daily. magnesium hydroxide (MILK OF MAGNESIA) 400 mg/5 mL suspension Take 15 mL by mouth once daily as needed for constipation. lactulose (ENULOSE) 10 gram/15 mL solution Take 15 mL by mouth twice daily. famotidine (PEPCID) 40 mg tablet Take 1 tablet by mouth once daily as needed. amitriptyline (ELAVIL) 100 mg tablet Take 1 tablet by mouth daily at bedtime. doxycycline (VIBRA-TABS) 100 mg tablet MUCUS RELIEF ER 600 mg 12 hr tablet Take 1,200 mg by mouth twice daily. lansoprazole (PREVACID) 30 mg capsule Take 1 capsule by mouth twice daily. Take on empty stomach at least 30 minutes before eating. montelukast (SINGULAIR) 10 mg tablet Take 1 tablet by mouth daily at bedtime. tqrnlbacang-yorfxcgpo-uormkeph (TRELEGY ELLIPTA) 200-62.5-25 mcg inhalation powder Inhale as instructed. zolpidem (AMBIEN) 5 mg tablet Take 1 tablet by mouth at bedtime as needed for sedation for up to 30 days. albuterol HFA (VENTOLIN HFA) 90 mcg/actuation inhaler Inhale 2 Puffs as instructed every 4 hours as needed for wheezing/shortness of breath. L. acidophilus-L. rhamnosus 15 billion cell cap Take 1 capsule by mouth once daily. FLORAJEN WOMEN. If on antibiotic, take at least 1-2 hours before or after antibiotic. KEEP REFRIGERATED ergocalciferol 50,000 unit capsule (VITAMIN D2, DRISDOL) Take 1 capsule by mouth one time a week. albuterol (PROVENTIL) 2.5 mg /3 mL (0.083 %) nebulizer solution Use 3 mL via nebulizer every 6 hours as needed. PHENYLephrine-cocoa butter (PREPARATION H,PE,CB,) 0.25-88.44 % supp 1 Suppository by RECTAL route once daily. (Patient taking differently: 1 Suppository by RECTAL route as nee (more content not included)...[facility]08-28-2023 Instructions* Patient Instructions* Khanh Mata MD - 03/05/2023 9:55 AM EDT Easy Way to Quit Smoking - Jamin Tijerina documented in this encounterCosho[facility]08-28-2023 History of Present illness Narrative* Khanh Mata MD - 03/05/2023 9:39 AM EDT Images from the original note were not included. [facility] [address] [facility] [place] [address] Khanh Mata MD New Reflux H/P Referred by: Roselyn Tobar PA-C History of Present Illness: Patient is a 52 year old female whose Body mass index is 24.49 kg/m . who presents to general surgery clinic for initial consultation. The patient presents with chief complaint of GERD and hiatal hernia. They report a history of heartburn, dysphagia, and regurgitation which have been ongoing for 5 years. Exacerbating factors: spicy foods but any food could cause symptoms. Alleviating factors: taking antacids. Additional symptoms: bad smell, vomiting, and choking sensation . Prior workup: EGD, UGI, colonoscopy, CT scan. Taking Dexilant pepcid and then takes tums 3 times per day. Smoke half a pack per day which she has decreased for the last 3 years. Drinks multiple cups of coffee per day. Review of Systems: Review of Systems HENT: Negative. Eyes: Negative. Respiratory: Negative. Cardiovascular: Negative. Gastrointestinal: Positive for heartburn, nausea and vomiting. Genitourinary: Negative. Musculoskeletal: Negative. Skin: Negative. Neurological: Negative. Endo/Heme/Allergies: Negative. Psychiatric/Behavioral: Negative. Past Medical History: PAST MEDICAL HISTORY Diagnosis Date Anorexia nervosa 06/11/2006 Stable; treated in past Anxiety Asthma 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 02/13/2020 Bulimia nervosa 06/11/2006 Stable, treated in past Cancer (HCC) Chest pain Chronic obstructive pulmonary disease (COPD) (HCC) Emphysema lung (HCC) GERD (gastroesophageal reflux disease) H. pylori infection cronic Hiatal hernia 02/13/2020 small HISTORY OF CANCER OF UTERUS 06/11/2006 2004, Hysterectomy - complete Internal hemorrhoids Lung disease Migraines Snoring Tobacco use disorder 06/11/2006 Quit 09/2015. Unspecified asthma(493.90) Childhood diagnosis. Past Surgical History: PAST SURGICAL HISTORY Procedure Laterality Date APPENDECTOMY 1998 EGD WITH BIOPSY(S) 03/13/2017 Dr. Shook EGD WITH BIOPSY(S) 02/13/2020 small hiatal hernia; Duggan's without dysplasia; Dr. Montoya EGD WITH BIOPSY(S) 10/06/2021 H. pylori +; Duggan's without dysplasia; Dr. Riggs EGD WITH BIOPSY(S) 09/12/2022 neg for H. pylori; Dr. Riggs PAST SURGICAL HISTORY OF 2003 Lymph Node Bx 1999 TOTAL ABDOMINAL HYSTERECT W/WO RMVL TUBE OVARY 2004 and BSO - pelvic pain/benign Current Medications: Current Outpatient Medications Medication Sig FASENRA PEN 30 mg/mL auto-injector LINZESS 290 mcg capsule TAKE 1 CAPSULE BY MOUTH ONCE DAILY 6AM. tenapanor (IBSRELA) 50 mg tablet Take 1 tablet (50 mg) by mouth twice daily. 10 minutes before eating. ibuprofen (MOTRIN) 800 mg tablet Take 1 tablet by mouth every 8 hours as needed for pain. promethazine (PHENERGAN) 25 mg tablet Take 1 tablet by mouth every 8 hours as needed (for nausea). peg 3350-Electrolytes (GOLYTELY) 236-22.74-6.74 -5.86 gram suspension Refer to printed patient instructions that will be mailed to you. Dexlansoprazole (DEXILANT) 60 mg CpDM Take 60 mg by mouth once daily. magnesium hydroxide (MILK OF MAGNESIA) 400 mg/5 mL suspension Take 15 mL by mouth once daily as needed for constipation. lactulose (ENULOSE) 10 gram/15 mL solution Take 15 mL by mouth twice daily. famotidine (PEPCID) 40 mg tablet Take 1 tablet by mouth once daily as needed. amitriptyline (ELAVIL) 100 mg tablet Take 1 tablet by mouth daily at bedtime. doxycycline (VIBRA-TABS) 100 mg tablet MUCUS RELIEF ER 600 mg 12 hr tablet Take 1,200 mg by mouth twice daily. lansoprazole (PREVACID) 30 mg capsule Take 1 capsule by mouth twice daily. Take on empty stomach atleast 30 minutes before eating. montelukast (SINGULAIR) 10 mg tablet Take 1 tablet by mouth daily at bedtime. nxkijmluoiu-nczafmfgk-ecyqvcba (TRELEGY ELLIPTA) 200-62.5-25 mcg inhalation powder Inhale as instructed. zolpidem (AMBIEN) 5 mg tablet Take 1 tablet by mouth at bedtime as needed for sedation for up to 30days. albuterol HFA (VENTOLIN HFA) 90 mcg/actuation inhaler Inhale 2 Puffs as instructed every 4 hours asneeded for wheezing/shortness of breath. L. acidophilus-L. rhamnosus 15 billion cell cap Take 1 capsule by mouth once daily. FLORAJEN WOMEN.If on antibiotic, take at least 1-2 hours before or after antibiotic. KEEP REFRIGERATED ergocalciferol 50,000 unit capsule (VITAMIN D2, DRISDOL) Take 1 capsule by mouth one time a week. albuterol (PROVENTIL) 2.5 mg /3 mL (0.083 %) nebulizer solution Use 3 mL via nebulizer every 6 hours as needed. PHENYLephrine-cocoa butter (PREPARATION H,PE,CB,) 0.25-88.44 % supp 1 Suppository by RECTAL route once daily. (Patient taking differently: 1 Suppository by RECTAL route as needed.) COMPACT SPACE CHAMBER as directed. ipratropium-albuterol (DUONEB) 0.5 mg-3 mg(2.5 mg base)/3 mL nebu Inhale 3 mL as instructed every 4hours as needed. PULSE OXIMETER CONTEC 1 Each as needed. loratadine (CLARITIN) 10 mg tablet Take 1 tablet by mouth once daily. fluticasone (FLONASE) 50 mcg/actuation nasal spray Use 2 Sprays in each nostril once daily. Rinse mouth after use. bisacodyl (DULCOLAX, BISACODYL,) 10 mg supp 1 Suppository by RECTAL route once daily as needed for constipation. (Patient not taking: Reported on 03/05/2023) Comp Stocking,Knee,Regular,Med misc 2 Each once daily. (Patient not taking: Reported on 03/05/2023) Current Facility-Administered Medications Medication Dose Route Frequency perflutren lipid microspheres 1.3 mL in NaCl (PF) 0.9% 10 mL injection (DEFINITY) INTRAVENOUS DIRECTED PRN sodium chloride 0.9 % (flush) 10 mL (BD POSIFLUSH) 10 mL INTRAVENOUS DIRECTED PRN Allergies: Penicillins Family Medical History: FAMILY HISTORY Problem Relation Age of Onset Hypertension Mother Heart Mother Eczema Mother other (AAA) Mother other (Fibromyalgia) Mother Alcohol/Drug Father Alcohol Cancer Father lung Colon Cancer Father Hypertension Sister Asthma Sister other (Migraines) Sister other (Gout) Sister other (Fibromyalgia) Sister Breast Cancer Maternal Aunt 2 maternal aunts. other (MICRO PHOTOGRAPHER cancer) No Family History Social History: Social History Tobacco Use Smoking status: Every Day Packs/day: 0.25 Years: 29.00 Additional pack years: 0.00 Total pack years: 7.25 Types: Cigarettes Start date: 11/17/1986 Last attempt to quit: 11/23/2021 Years since quittin.2 Smokeless tobacco: Never Vaping Use Vaping Use: Never used Substance Use Topics Alcohol use: Not Currently Comment: Rarely Drug use: No Physical Examination: BP 118/74 (BP Site: Left Arm, BP Position: Sitting, BP Cuff Size: Large Adult) Pulse 78 Ht 154.9 cm (5' 1) Wt 58.8 kg (129 lb 9.6 oz) BMI 24.49 kg/m Body mass index is 24.49 kg/m . Physical Exam Constitutional: Appearance: Normal appearance. HENT: Head: Normocephalic and atraumatic. Nose: Nose normal. Mouth/Throat: Mouth: Mucous membranes are moist. Eyes: Extraocular Movements: Extraocular movements intact. Pupils: Pupils are equal, round, and reactive to light. Cardiovascular: Rate and Rhythm: Normal rate. Pulses: Normal pulses. Pulmonary: Effort: Pulmonary effort is normal. Abdominal: Palpations: Abdomen is soft. Musculoskeletal: General: Normal range of motion. Cervical back: Normal range of motion and neck supple. Skin: General: Skin is warm and dry. Neurological: General: No focal deficit present. Mental Status: She is alert and oriented to person, place, and time. Psychiatric: Mood and Affect: Mood normal. Behavior: Behavior normal. Radiologic/Endoscopic/Laboratory Studies to Date UGI on 11/15/[address] small hiatal her[address] CT abdomen/pelvis shows small hiatal hernia as well EGD on 09/12/22 shows mild gastritis, neg for H pylori, no large PEH seen Note from Roselyn Tobar reviewed on 01/05/23, my note will be sent to her via electronic records Assessment: Patient is a 52 year old female with Severe GERD and hiatal hernia. She has had a full work up consistent with GERD and is on dexilant currently, however patient is not a good surgical candidate given the continued nicotine use. ASSESSMENT/PLAN: 1. Gastroesophageal reflux disease without esophagitis - ICD9: 530.81, ICD10: K21.9 (primary diagnosis) Continue PPI and Pepcid Decrease caffeine use Stop nicotine as below 2. Tobacco use disorder - ICD9: 305.1, ICD10: F17.200 - Cessation encouraged. - Physiologic and physical aspects of tobacco addiction as well as strategies for quitting were discussed. - Counseling was given focusing on the harmful effects of this addiction especially given the patient's medical condition(s) which will be worsened because of the chemicals in tobacco. - I gave the patient references to books and videos include Easy Way to Stop Smoking by Bryan Tijerina - After Nicotine cessation, I will follow up with the patient, if her symptoms are still medically refractory, will plan for EGD with Gonzalez and Surgical paraesophageal hernia repair with Toupet fundoplication 3. Hiatal hernia - ICD9: 553.3, ICD10: K44.9 Will plan for repair once she has quit nicotine Follow up in 3 months Khanh Mata MD [facility] Medical Decision Making: Problems: Moderate: 2+ stable chronic illnesses Data: Unique source(s) for external note(s) reviewed: 1 Unique test result(s) reviewed: 3+ Independent interpretation of test from other physician/QHCP Discussed management or test w/ external physician/QHCP/source Risk: Minimal: Minimal risk from testing/treatment Medical Decision Making Level: 4 - Moderate documented in this encounterCos[facility]08-23-2023 Miscellaneous Notes* Addendum Note - Roselyn Tobar PA-C - 02/28/2023 8:20 PM EDTAddended by: ROSELYN TOBAR on: 02/28/2023 08:20 PM Modules accepted: Orders documented in this encounterCoshocton [facility]08-18-2023 Miscellaneous Notes* Telephone Encounter - Laura Hernandez APRN.CNP - 02/23/2023 3:09 PM EDT This has been ordered Thank you Laura Hernandez APRN.CNP * Telephone Encounter - Roselyn King RT(R) - 02/23/2023 1:59 PM EDT Please enter a bilateral diagnostic order, patient's last screening was 11/27, thank you! documented in this encounterCoshoct[facility]08-15-2023 Miscellaneous Notes* Telephone Encounter - Sonya Gill LPN - 02/20/2023 6:42 PM EDT Patient has been identified by name and date of : No Patient phones for refill(s): Requested Prescriptions Pending Prescriptions Disp Refills LINZESS 290 mcg capsule [Pharmacy Med Name: Linzess 290 MCG Oral Capsule] 30 capsule 0 Sig: TAKE 1 CAPSULE BY MOUTH ONCE DAILY 6AM. Date of last office visit in primary care: 02/08/23 Last 2 Encounter Wt Readings: Date: Wt: 02/08/2023 59.4 kg (131 lb) 11/29/2022 60.3 kg (133 lb) Previous labs/tests for medication: Not applicable Please advise. Thank you. Sonya Gill LPN documented in this encounterCos[facility]08-14-2023 Miscellaneous Notes* Telephone Encounter - Hermila Roldan LPN - 02/19/2023 3:55 PM EDT Last office visit: 02/08/23 Next appointment scheduled: 05/11/23 Patient phones requesting refills as follows: Requested Prescriptions Pending Prescriptions Disp Refills ibuprofen (MOTRIN) 800 mg tablet 60 tablet 1 Sig: Take 1 tablet by mouth every 8 hours as needed for pain. Hermila Roldan LPN documented in this encounterCoshoct[facility]08-14-2023 Miscellaneous Notes* Telephone Encounter - Danielle Shabazz MA - 02/19/2023 3:22 PM EDT Patient phones requesting refills as follows: Requested Prescriptions Pending Prescriptions Disp Refills tenapanor (IBSRELA) 50 mg tablet 180 tablet 1 Sig: Take 1 tablet (50 mg) by mouth twice daily. 10 minutes before eating. Please review and advise. Danielle Shabazz MA documented in this encounterKarla [place] [id number] Miscellaneous Notes* Telephone Encounter - Danielle Shabazz MA - 02/02/2023 7:41 AM EDT Patient phones requesting refills as follows: Requested Prescriptions Pending Prescriptions Disp Refills promethazine (PHENERGAN) 25 mg tablet 30 tablet 1 Sig: Take 1 tablet by mouth every 8 hours as needed (for nausea). Please review and advise. Danielle Shabazz MA documented in this encounterCosho[facility]07-07-2023 Nurse Note* Marian Jiménez RN - 01/12/2023 11:14 AM EDT Patient remains sedated and expresses desire to remain in bed for a while longer. Denies discomfort. Marian Jiménez RN * Marian Jiménez RN - 01/12/2023 10:44 AM EDT Arrived in phase II via cart. Left lateral position. Sedated; responds t deep verbal stimuli Color normal; skin warm and dry. Respirations wnl and unlabored. Abdomen soft and with + bowel sounds in quads X 4. Marian Jiménez RN documented in this encounterCoshocton [facility]07-07-2023 History and physical note * Allison Montoya MD - 01/12/2023 10:15 AM EDT UPDATED PROCEDURAL SEDATION HISTORY AND PHYSICAL EXAMINATION SERVICE DATE: 01/12/2023 SERVICE TIME: 9:59 PHYSICAL EXAM MUST BE COMPLETED ON ADMISSION PROCEDURE: colonoscopy, possible biopsies Procedure Indications: constipation The History and Physical (completed in the past 30 days) has been reviewed and the patient has beenexamined. The contents accurately reflect the patient's condition with the following additions or revisions since the H&P was completed. ASA Class: ASA Class:: Patient with mild systemic disease Examination indicates no changes. AIRWAY: Airway Visualization of Uvula: Yes Mouth opening greater than 2 fingerbreadths: Yes Neck Full Range of Motion: Yes LUNGS: Lungs clear to auscultation CARDIAC: Regular rhythm,Regular rate Provisional Diagnosis/Treatment Plan: colonoscopy, possible biopsies SEDATION GOAL: Moderate This H&P can be found in the Electronic Medical Record . SIGNATURE: Allison Montoya MD PATIENT NAME: Jane Steinberg DATE: January 12, 2023 TIME: 9:59 AM Source Note - Allison Montoya MD - 01/12/2023 10:15 AM EDT Ms. Steinberg presents today for colonoscopy. PMHx positive for anorexia nervosa/bulimia (s/p treatment), uterine CA (s/p hysterectomy 2005), anxiety, asthma, Duggan's, COPD, GERD. Unable to log into Zoom, called for encounter. Constipation worsened around 11/2022 for which Golytely bowel prep was advised to clear pt out. Pt includes this worked very well for her initially. Had been taking Linzess 290 mcg daily and now feels as though she is backed up again. Bms are one per week, no blood. Lower abd pain will improve withBM. Also on Miralax daily, stool softeners daily. Denies unintentional weight loss. CT abd 11/2022 IMPRESSION: No acute abdominal or pelvic process is identified. Fatty infiltration of the liver. Moderate stool burden. Stable subcentimeter pulmonary nodules, when compared to the prior examination. \ Taking Miralax full cap daily, stool softeners BID and having a BM every 1.5 weeks. Abd pain is generalized, /10, improves with a BM. Last colonoscopy 2015 PAST MEDICAL HISTORY PAST MEDICAL HISTORY Diagnosis Date Anorexia nervosa 06/11/2006 Stable; treated in past Anxiety Asthma Duggan's esophagus Bulimia nervosa 06/11/2006 Stable, treated in past Chest pain Chronic obstructive pulmonary disease (COPD) (HCC) Emphysema lung (HCC) GERD (gastroesophageal reflux disease) H. pylori infection cronic HISTORY OF CANCER OF UTERUS 06/11/2006 2004, Hysterectomy - complete Internal hemorrhoids Lung disease Migraines Snoring Tobacco use disorder 06/11/2006 Quit 09/2015. Unspecified asthma(493.90) Childhood diagnosis. PAST SURGICAL HISTORY PAST SURGICAL HISTORY Procedure Laterality Date APPENDECTOMY 1998 COLONOSCOPY FLX DX W/COLLJ SPEC WHEN PFRMD 02/13/2020 Colonoscopy EGD W/O [facility] SPEC VARICIES INJ 10/06/2021 EGD W/O [facility] SPEC VARICIES INJ 09/12/2022 ESOPHAGOGASTRODUODENOSCOPY TRANSORAL DIAGNOSTIC 03/13/2017 EGD ESOPHAGOGASTRODUODENOSCOPY TRANSORAL DIAGNOSTIC 02/13/2020 EGD GASTRIC EMPTYING IMAG STUDY 02/17/2021 PAST SURGICAL HISTORY OF 2004 Lymph Node Bx 1999 TOTAL ABDOMINAL HYSTERECT W/WO RMVL TUBE OVARY 2005 and BSO - pelvic pain/benign FAMILY HISTORY FAMILY HISTORY Problem Relation Age of Onset Hypertension Mother Heart Mother Eczema Mother other (AAA) Mother other (Fibromyalgia) Mother Alcohol/Drug Father Alcohol Cancer Father lung Colon Cancer Father Hypertension Sister Asthma Sister other (Migraines) Sister other (Gout) Sister other (Fibromyalgia) Sister Breast Cancer Maternal Aunt 2 maternal aunts. other (MICRO PHOTOGRAPHER cancer) No Family History SOCIAL HISTORY Social History Tobacco Use Smoking status: Every Day Packs/day: 0.25 Years: 29.00 Pack years: 7.25 Types: Cigarettes Start date: 11/17/1986 Last attempt to quit: 11/23/2021 Years since quittin.1 Smokeless tobacco: Never Vaping Use Vaping Use: Never used Substance Use Topics Alcohol use: Not Currently Comment: Rarely Drug use: No CURRENT MEDICATIONS Current Outpatient Medications Medication Sig Dispense Refill linaCLOtide (LINZESS) 290 mcg capsule Take 1 capsule by mouth DAILY (6 AM). 30 capsule 1 magnesium hydroxide (MILK OF MAGNESIA) 400 mg/5 mL suspension Take 15 mL by mouth once daily as needed for constipation. 60 mL 0 bisacodyl (DULCOLAX, BISACODYL,) 10 mg supp 1 Suppository by RECTAL route once daily as needed for constipation. 5 Suppository 1 lactulose (ENULOSE) 10 gram/15 mL solution Take 15 mL by mouth twice daily. 473 mL 2 famotidine (PEPCID) 40 mg tablet Take 1 tablet by mouth once daily as needed. 90 tablet 2 amitriptyline (ELAVIL) 100 mg tablet Take 1 tablet by mouth daily at bedtime. 90 tablet 1 doxycycline (VIBRA-TABS) 100 mg tablet MUCUS RELIEF ER 600 mg 12 hr tablet Take 1,200 mg by mouth twice daily. lansoprazole (PREVACID) 30 mg capsule Take 1 capsule by mouth twice daily. Take on empty stomach atleast 30 minutes before eating. 180 capsule 3 promethazine (PHENERGAN) 25 mg tablet Take 1 tablet by mouth every 8 hours as needed (for nausea). 30 tablet 1 montelukast (SINGULAIR) 10 mg tablet Take 1 tablet by mouth daily at bedtime. 90 tablet 3 ibuprofen (MOTRIN) 800 mg tablet Take 1 tablet by mouth every 8 hours as needed for pain. 60 tablet1 vhyikbitezu-dgbtsqnkv-zxecuqen (TRELEGY ELLIPTA) 200-62.5-25 mcg inhalation powder Inhale as instructed. zolpidem (AMBIEN) 5 mg tablet Take 1 tablet by mouth at bedtime as needed for sedation for up to 30days. 15 tablet 1 albuterol HFA (VENTOLIN HFA) 90 mcg/actuation inhaler Inhale 2 Puffs as instructed every 4 hours asneeded for wheezing/shortness of breath. 18 g 2 L. acidophilus-L. rhamnosus 15 billion cell cap Take 1 capsule by mouth once daily. FLORAJEN WOMEN.If on antibiotic, take at least 1-2 hours before or after antibiotic. KEEP REFRIGERATED 30 capsule 11 ergocalciferol 50,000 unit capsule (VITAMIN D2, DRISDOL) Take 1 capsule by mouth one time a week. 4capsule 1 albuterol (PROVENTIL) 2.5 mg /3 mL (0.083 %) nebulizer solution Use 3 mL via nebulizer every 6 hours as needed. 180 mL 3 PHENYLephrine-cocoa butter (PREPARATION H,PE,CB,) 0.25-88.44 % supp 1 Suppository by RECTAL route once daily. (Patient taking differently: 1 Suppository by RECTAL route as needed.) 30 Suppository 2 COMPACT SPACE CHAMBER as directed. ipratropium-albuterol (DUONEB) 0.5 mg-3 mg(2.5 mg base)/3 mL nebu Inhale 3 mL as instructed every 4hours as needed. 20 Vial 0 PULSE OXIMETER CONTEC 1 Each as needed. 1 Each 0 Comp Stocking,Knee,Regular,Med misc 2 Each once daily. 2 Each 0 loratadine (CLARITIN) 10 mg tablet Take 1 tablet by mouth once daily. 10 tablet 0 fluticasone (FLONASE) 50 mcg/actuation nasal spray Use 2 Sprays in each nostril once daily. Rinse mouth after use. 1 Bottle 11 Current Facility-Administered Medications Medication Dose Route Frequency Provider Last Rate Last Admin perflutren lipid microspheres 1.3 mL in NaCl (PF) 0.9% 10 mL injection (DEFINITY) INTRAVENOUS DIRECTED PRN Laura Hernandez APRN.KACY sodium chloride 0.9 % (flush) 10 mL (BD POSIFLUSH) 10 mL INTRAVENOUS DIRECTED PRN Laura Hernandez APRN.DUMPER ALLERGIES ALLERGIES Allergen Reactions Penicillins Anaphylaxis REVIEW OF SYSTEMS: PAIN ASSESSMENT: Negative for pain, history of chronic pain, or current treatment for a chronic pain condition. GENERAL: No weight loss, malaise or fevers RESPIRATORY: Negative for cough, hemoptysis, wheezing, COPD, dyspnea or shortness of breath CARDIOVASCULAR: Negative for chest pain, leg swelling, hypertension, CHF or palpitations GI: See HPI : No history of dysuria, frequency or incontinence MICRO PHOTOGRAPHER: Negative for abnormal vaginal bleeding, abnormal vaginal discharge Physical examination: Vital signs in chart, reviewed and noted by me General - WD/WN in no apparent distress, alert and oriented Head - Normocephalic. EOM intact with sclera clear. Mouth with mucus membranes moist. Neck - supple with no jugular venous distention noted. Trachea is midline. Lungs - clear to auscultation. Normal breath sounds. No rales/rhonchi/wheezing noted. Heart - normal heart sounds. No rubs/clicks/murmurs noted. Regular rate. Abdomen - soft and benign. Extremities - no pitting edema noted. Skin - Normal skin integrity. Neurological - non focal Psych - calm and appropriate Impression: constipation Discussion/Plan/Recommendations: I have discussed the above with the patient. I have offered colonoscopy , possible biopsies I have explained the procedure to the patient. I have counseled the patient as to the risks of the procedure, including but not limited to: infection, bleeding, injury to any intrabdominal organs such as liver/spleen, perforation of the GI tract,inability to complete the procedure, complications of anesthesia, etc. - the patient understands. The patient wishes to proceed. I have answered all questions to the patient s satisfaction and the patient has no further questions. * lAlison Montoya MD - 01/12/2023 10:15 AM EDT Ms. Steinberg presents today for colonoscopy. PMHx positive for anorexia nervosa/bulimia (s/p treatment), uterine CA (s/p hysterectomy 2005), anxiety, asthma, Duggan's, COPD, GERD. Unable to log into Zoom, called for encounter. Constipation worsened around 11/2022 for which Golytely bowel prep was advised to clear pt out. Pt includes this worked very well for her initially. Had been taking Linzess 290 mcg daily and now feels as though she is backed up again. Bms are one per week, no blood. Lower abd pain will improve withBM. Also on Miralax daily, stool softeners daily. Denies unintentional weight loss. CT abd 11/2022 IMPRESSION: No acute abdominal or pelvic process is identified. Fatty infiltration of the liver. Moderate stool burden. Stable subcentimeter pulmonary nodules, when compared to the prior examination. \ Taking Miralax full cap daily, stool softeners BID and having a BM every 1.5 weeks. Abd pain is generalized, 7/10, improves with a BM. Last colonoscopy 2015 PAST MEDICAL HISTORY PAST MEDICAL HISTORY Diagnosis Date Anorexia nervosa 06/11/2006 Stable; treated in past Anxiety Asthma Duggan's esophagus Bulimia nervosa 06/11/2006 Stable, treated in past Chest pain Chronic obstructive pulmonary disease (COPD) (HCC) Emphysema lung (HCC) GERD (gastroesophageal reflux disease) H. pylori infection cronic HISTORY OF CANCER OF UTERUS 06/11/20062003, Hysterectomy - complete Internal hemorrhoids Lung disease Migraines Snoring Tobacco use disorder 06/11/2006 Quit 09/2015. Unspecified asthma(493.90) Childhood diagnosis. PAST SURGICAL HISTORY PAST SURGICAL HISTORY Procedure Laterality Date APPENDECTOMY 1998 COLONOSCOPY FLX DX W/COLLJ SPEC WHEN PFRMD 02/13/2020 Colonoscopy EGD W/O [facility] SPEC VARICIES INJ 10/06/2021 EGD W/O [facility] SPEC VARICIES INJ 09/12/2022 ESOPHAGOGASTRODUODENOSCOPY TRANSORAL DIAGNOSTIC 03/13/2017 EGD ESOPHAGOGASTRODUODENOSCOPY TRANSORAL DIAGNOSTIC 02/13/2020 EGD GASTRIC EMPTYING IMAG STUDY 02/17/2021 PAST SURGICAL HISTORY OF 2004 Lymph Node Bx 1999 TOTAL ABDOMINAL HYSTERECT W/WO RMVL TUBE OVARY 2004 and BSO - pelvic pain/benign FAMILY HISTORY FAMILY HISTORY Problem Relation Age of Onset Hypertension Mother Heart Mother Eczema Mother other (AAA) Mother other (Fibromyalgia) Mother Alcohol/Drug Father Alcohol Cancer Father lung Colon Cancer Father Hypertension Sister Asthma Sister other (Migraines) Sister other (Gout) Sister other (Fibromyalgia) Sister Breast Cancer Maternal Aunt 2 maternal aunts. other (MICRO PHOTOGRAPHER cancer) No Family History SOCIAL HISTORY Social History Tobacco Use Smoking status: Every Day Packs/day: 0.25 Years: 29.00 Pack years: 7.25 Types: Cigarettes Start date: 11/17/1986 Last attempt to quit: 11/23/2021 Years since quittin.1 Smokeless tobacco: Never Vaping Use Vaping Use: Never used Substance Use Topics Alcohol use: Not Currently Comment: Rarely Drug use: No CURRENT MEDICATIONS Current Outpatient Medications Medication Sig Dispense Refill linaCLOtide (LINZESS) 290 mcg capsule Take 1 capsule by mouth DAILY (6 AM). 30 capsule 1 magnesium hydroxide (MILK OF MAGNESIA) 400 mg/5 mL suspension Take 15 mL by mouth once daily as needed for constipation. 60 mL 0 bisacodyl (DULCOLAX, BISACODYL,) 10 mg supp 1 Suppository by RECTAL route once daily as needed for constipation. 5 Suppository 1 lactulose (ENULOSE) 10 gram/15 mL solution Take 15 mL by mouth twice daily. 473 mL 2 famotidine (PEPCID) 40 mg tablet Take 1 tablet by mouth once daily as needed. 90 tablet 2 amitriptyline (ELAVIL) 100 mg tablet Take 1 tablet by mouth daily at bedtime. 90 tablet 1 doxycycline (VIBRA-TABS) 100 mg tablet MUCUS RELIEF ER 600 mg 12 hr tablet Take 1,200 mg by mouth twice daily. lansoprazole (PREVACID) 30 mg capsule Take 1 capsule by mouth twice daily. Take on empty stomach atleast 30 minutes before eating. 180 capsule 3 promethazine (PHENERGAN) 25 mg tablet Take 1 tablet by mouth every 8 hours as needed (for nausea). 30 tablet 1 montelukast (SINGULAIR) 10 mg tablet Take 1 tablet by mouth daily at bedtime. 90 tablet 3 ibuprofen (MOTRIN) 800 mg tablet Take 1 tablet by mouth every 8 hours as needed for pain. 60 tablet1 bzkhscbixkp-csjszmfyu-etvaagnc (TRELEGY ELLIPTA) 200-62.5-25 mcg inhalation powder Inhale as instructed. zolpidem (AMBIEN) 5 mg tablet Take 1 tablet by mouth at bedtime as needed for sedation for up to 30days. 15 tablet 1 albuterol HFA (VENTOLIN HFA) 90 mcg/actuation inhaler Inhale 2 Puffs as instructed every 4 hours asneeded for wheezing/shortness of breath. 18 g 2 L. acidophilus-L. rhamnosus 15 billion cell cap Take 1 capsule by mouth once daily. FLORAJEN WOMEN.If on antibiotic, take at least 1-2 hours before or after antibiotic. KEEP REFRIGERATED 30 capsule 11 ergocalciferol 50,000 unit capsule (VITAMIN D2, DRISDOL) Take 1 capsule by mouth one time a week. 4capsule 1 albuterol (PROVENTIL) 2.5 mg /3 mL (0.083 %) nebulizer solution Use 3 mL via nebulizer every 6 hours as needed. 180 mL 3 PHENYLephrine-cocoa butter (PREPARATION H,PE,CB,) 0.25-88.44 % supp 1 Suppository by RECTAL route once daily. (Patient taking differently: 1 Suppository by RECTAL route as needed.) 30 Suppository 2 COMPACT SPACE CHAMBER as directed. ipratropium-albuterol (DUONEB) 0.5 mg-3 mg(2.5 mg base)/3 mL nebu Inhale 3 mL as instructed every 4hours as needed. 20 Vial 0 PULSE OXIMETER CONTEC 1 Each as needed. 1 Each 0 Comp Stocking,Knee,Regular,Med misc 2 Each once daily. 2 Each 0 loratadine (CLARITIN) 10 mg tablet Take 1 tablet by mouth once daily. 10 tablet 0 fluticasone (FLONASE) 50 mcg/actuation nasal spray Use 2 Sprays in each nostril once daily. Rinse mouth after use. 1 Bottle 11 Current Facility-Administered Medications Medication Dose Route Frequency Provider Last Rate Last Admin perflutren lipid microspheres 1.3 mL in NaCl (PF) 0.9% 10 mL injection (DEFINITY) INTRAVENOUS DIRECTED PRN Laura Hernandez APRN.CNP sodium chloride 0.9 % (flush) 10 mL (BD POSIFLUSH) 10 mL INTRAVENOUS DIRECTED PRN Laura Hernandez APRN.KACY ALLERGIES ALLERGIES Allergen Reactions Penicillins Anaphylaxis REVIEW OF SYSTEMS: PAIN ASSESSMENT: Negative for pain, history of chronic pain, or current treatment for a chronic pain condition. GENERAL: No weight loss, malaise or fevers RESPIRATORY: Negative for cough, hemoptysis, wheezing, COPD, dyspnea or shortness of breath CARDIOVASCULAR: Negative for chest pain, leg swelling, hypertension, CHF or palpitations GI: See HPI : No history of dysuria, frequency or incontinence MICRO PHOTOGRAPHER: Negative for abnormal vaginal bleeding, abnormal vaginal discharge Physical examination: Vital signs in chart, reviewed and noted by me General - WD/WN in no apparent distress, alert and oriented Head - Normocephalic. EOM intact with sclera clear. Mouth with mucus membranes moist. Neck - supple with no jugular venous distention noted. Trachea is midline. Lungs - clear to auscultation. Normal breath sounds. No rales/rhonchi/wheezing noted. Heart - normal heart sounds. No rubs/clicks/murmurs noted. Regular rate. Abdomen - soft and benign. Extremities - no pitting edema noted. Skin - Normal skin integrity. Neurological - non focal Psych - calm and appropriate Impression: constipation Discussion/Plan/Recommendations: I have discussed the above with the patient. I have offered colonoscopy , possible biopsies I have explained the procedure to the patient. I have counseled the patient as to the risks of the procedure, including but not limited to: infection, bleeding, injury to any intrabdominal organs such as liver/spleen, perforation of the GI tract,inability to complete the procedure, complications of anesthesia, etc. - the patient understands. The patient wishes to proceed. I have answered all questions to the patient s satisfaction and the patient has no further questions. documented in this encounterCosho[facility]07-03-2023 Miscellaneous Notes* Telephone Encounter - Danielle Shabazz MA - 01/08/2023 11:14 AM EDT Dexlansoprazole approved 01/05/23- 01/04/24 * Telephone Encounter - Danielle Shabazz MA - 01/05/2023 1:34 PM EDT Prior authorization submitted for Dexlansoprazole awaiting approval or denial. documented in this encounterCoshocton [facility]06-29-2023 Miscellaneous Notes* Telephone Encounter - Livia Bond Ma - 01/04/2023 3:42 PM EDT Called [employer] and advised yes PA is needed since mg amount was increased. Did complete PA over the phone to get this pushed through faster. Was approved and approved till 01/05/2024 Contact id [id number] Pharmacy was notified Livia Bond Ma * Telephone Encounter - Selina Malave RN - 01/04/2023 3:02 PM EDT [facility] states they received a fax today from pcp office that states linzess does does not require a PA. Reports when they run it through it states PA required. Noted in chart PA approval on 12-01-22. Pharmacy wondering if it's been too long to fill it, since they are just now trying to fill this, and maybe insurance requiring a PA now? documented in this encounterCoshocton [facility]05-24-2023 Miscellaneous Notes* Telephone Encounter - Daiana Harley - 11/29/2022 12:04 PM EDT Pt was in to see PCP today and was recommended to follow up with your office in a week. Per schedule it appears that your next est care appt isn't until February is there anyway we can get this pt in sooner? documented in this encounterCoshocton [facility]05-19-2023 History of Present illness Narrative* Mike Mojica RT(R) - 11/24/2022 2:00 PM EDT Radiology Service Progress Note DATE OF SERVICE: November 24, 2022 TIME: 3:38 PM PATIENT IDENTITY VERIFICATION COMPLETED USING TWO (2) STANDARD IDENTIFIERS: Name and Date of confirmed by patient verbally. FALL SCREENING: Has the patient had 2 falls in the last year or 1 fall with injury or currently using an Ambulatory Assistive Device (Walker, Cane, Wheelchair, Crutches, etc.)? No PATIENT GENDER DATA: Female. status: : No status: NO. PATIENT RELEVANT IMPLANT DATA REVIEWED: Yes ALLERGIES: Reviewed and unchanged CONTRAST ALLERGY: NO. EXAM: CT -CONTRAST INDUCED NEPHROPATHY RISK FACTORS: Not applicable CREATININE: Creatinine Date Value Ref Range Status 11/22/2022 1.00 (H) 0.58 - 0.96 mg/dL Final 02/27/2022 0.79 0.58 - 0.96 mg/dL Final 11/18/2021 0.70 0.58 - 0.96 mg/dL Final Estimated Glomerular Filtration Rate Date Value Ref Range Status 11/22/2022 68 >=60 mL/min/1.73m Final Comment: Estimated Glomerular Filtration Rate (eGFR) is calculated using the 2020 CKD-EPI creatinine equation. This equation utilizes serum creatinine, sex, and age as parameters. The creatinine assay has traceable calibration to isotope dilution- mass spectrometry. Refer to KDIGO guidelines for clinical interpretation. In patients with unstable renal function, e.g. those with acute kidney injury, the eGFRmay not accurately reflect actual GFR. eGFR- Date Value Ref Range Status 11/24/2020 >60 Final P.O.C.T. RESULTS: POC done: Yes, See Lab Tab November 24, 2022 TREATMENT: N/A PERIPHERAL IV DATA: Ambulatory: A peripheral IV was started in the Left antecubital site with a Angio cath: 22 gauge. RADIOLOGY DEPARTMENT: CT; Exam(s) Completed: Abdomen/Pelvis SIGNATURE: RT Bj(R) PATIENT NAME: Jane Steinberg DATE: November 24, 2022 TIME: 3:38 PM documented in this encounterCoshocton Regional [facility] Center05-17-2023 History of Present illness Narrative* Laura EVELYN Hernandez.DUMPER - 11/22/2022 7:57 AM EDT CC: Patient presents with: Recheck: 3 month follow up HPI Jane Steinberg is a 51 year old female who presents today for GI: 2 weeks ago started having daily episodes of emesis with no nausea prior, reporting 3 times during the day and a few times during the night waking her up and has a moment of shortness of breath prior to vomiting. Emesis usually dark in color, black but not coffee ground. Not taking anything over the counter for these episodes, has tried the phenergan but she isn't getting nauseated prior to episodes so it hasn't been helpful. Reports GI physician aware of these episodes and they suggested PCP or rug sample beveler with concern being related to lungs (per patient). Esophagram completed 11/15 per GI, impression of small hiatal hernia Recent issues with constipation. Saw her GI specialis 10/26 and had abdominal xray showing stool andstarted on lactulose and linzess. Then patient went to [facility] ER 10/29 for constipation, due to seeing her abdominal xrays following the GI visit and wasn't passing gas at that time. She hadanother XR in hospital which was negative for acute issues beyond stool burden within large bowel which is consistent with what the XR done 10/26 revealed. She was given an enema in the ER with effective results. Bowels are moving better since that, moves a little every day. Not hard stool and doesn't have to strain as much. But does have blood in her stool. Reports GI physician is aware of this and she was ordered anusol routinely twice a day for possible internal hemorrhoids. Reports she is doing this. Appetite has been good, no changes. COPD: Sob is up and down, but overall stable from previous visits. Worsens with emesis issues. 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 There was a partial, although technically nonsignificant, response to aerosolized bronchodilators. Her next pulmonology appt In December. Denies any edema, sputum is blackish/yellow and tastes like acid when her cough is productive. Usually a dry cough. Discussed lipid panel results which have improved. REVIEW OF SYSTEMS General: no fevers, no chills, no night sweats, no recurrent infections, no change in appetite, no change in energy, and no significant changes in weight Respiratory: See HPI Cardiovascular: no chest pain, no chest pressure, no palpitations, and no swelling GI: See HPI : No history of dysuria, frequency or incontinence PAST MEDICAL HISTORY Diagnosis Date Anorexia nervosa 06/11/2006 Stable; treated in past Anxiety Asthma Duggan's esophagus Bulimia nervosa 06/11/2006 Stable, treated in past Chest pain Chronic obstructive pulmonary disease (COPD) (HCC) Emphysema lung (HCC) GERD (gastroesophageal reflux disease) H. pylori infection cronic HISTORY OF CANCER OF UTERUS 06/11/20062003, Hysterectomy - complete Internal hemorrhoids Lung disease Migraines Snoring Tobacco use disorder 06/11/2006 Quit 09/2015. Unspecified asthma(493.90) Childhood diagnosis. PAST SURGICAL HISTORY Procedure Laterality Date APPENDECTOMY 1998 COLONOSCOPY FLX DX W/COLLJ SPEC WHEN PFRMD 02/13/2020 Colonoscopy EGD W/O [facility] SPEC VARICIES INJ 10/06/2021 EGD W/O [facility] SPEC VARICIES INJ 09/12/2022 ESOPHAGOGASTRODUODENOSCOPY TRANSORAL DIAGNOSTIC 03/13/2017 EGD ESOPHAGOGASTRODUODENOSCOPY TRANSORAL DIAGNOSTIC 02/13/2020 EGD GASTRIC EMPTYING IMAG STUDY 02/17/2021 PAST SURGICAL HISTORY OF 2004 Lymph Node Bx 1999 TOTAL ABDOMINAL HYSTERECT W/WO RMVL TUBE OVARY 2004 and BSO - pelvic pain/benign ALLERGIES Penicillins MEDICATIONS hydrocortisone (ANUSOL-HC) 2.5 % rectal cream^by RECTAL route twice daily for 14 days.^Disp: 28 g^Rfl: 0 linaclotide (LINZESS) 145 mcg capsule^Take 1 capsule by mouth DAILY (6 AM).^Disp: 30 capsule^Rfl: 2 lactulose (ENULOSE) 10 gram/15 mL solution^Take 15 mL by mouth twice daily.^Disp: 473 mL^Rfl: 2 famotidine (PEPCID) 40 mg tablet^Take 1 tablet by mouth once daily as needed.^Disp: 90 tablet^Rfl: 2 amitriptyline (ELAVIL) 100 mg tablet^Take 1 tablet by mouth daily at bedtime.^Disp: 90 tablet^Rfl: 1 doxycycline (VIBRA-TABS) 100 mg tablet^^Disp: ^Rfl: MUCUS RELIEF ER 600 mg 12 hr tablet^Take 1,200 mg by mouth twice daily.^Disp: ^Rfl: lansoprazole (PREVACID) 30 mg capsule^Take 1 capsule by mouth twice daily. Take on empty stomach atleast 30 minutes before eating.^Disp: 180 capsule^Rfl: 3 promethazine (PHENERGAN) 25 mg tablet^Take 1 tablet by mouth every 8 hours as needed (for nausea).^Disp: 30 tablet^Rfl: 1 montelukast (SINGULAIR) 10 mg tablet^Take 1 tablet by mouth daily at bedtime.^Disp: 90 tablet^Rfl: 3 ibuprofen (MOTRIN) 800 mg tablet^Take 1 tablet by mouth every 8 hours as needed for pain.^Disp: 60 tablet^Rfl: 1 qsmcagbsrhe-omjnpdmcx-iobiwhgs (TRELEGY ELLIPTA) 200-62.5-25 mcg inhalation powder^Inhale as instructed.^Disp: ^Rfl: zolpidem (AMBIEN) 5 mg tablet^Take 1 tablet by mouth at bedtime as needed for sedation for up to 30days.^Disp: 15 tablet^Rfl: 1 albuterol HFA (VENTOLIN HFA) 90 mcg/actuation inhaler^Inhale 2 Puffs as instructed every 4 hours asneeded for wheezing/shortness of breath.^Disp: 18 g^Rfl: 2 L. acidophilus-L. rhamnosus 15 billion cell cap^Take 1 capsule by mouth once daily. FLORAJEN WOMEN.If on antibiotic, take at least 1-2 hours before or after antibiotic. KEEP REFRIGERATED^Disp: 30 capsule^Rfl: 11 ergocalciferol 50,000 unit capsule (VITAMIN D2, DRISDOL)^Take 1 capsule by mouth one time a week.^Disp: 4 capsule^Rfl: 1 albuterol (PROVENTIL) 2.5 mg /3 mL (0.083 %) nebulizer solution^Use 3 mL via nebulizer every 6 hours as needed.^Disp: 180 mL^Rfl: 3 PHENYLephrine-cocoa butter (PREPARATION H,PE,CB,) 0.25-88.44 % supp^1 Suppository by RECTAL route once daily.^Disp: 30 Suppository^Rfl: 2 (Patient taking differently: 1 Suppository by RECTAL route asneeded.) COMPACT SPACE CHAMBER^as directed.^Disp: ^Rfl: ipratropium-albuterol (DUONEB) 0.5 mg-3 mg(2.5 mg base)/3 mL nebu^Inhale 3 mL as instructed every 4hours as needed.^Disp: 20 Vial^Rfl: 0 PULSE OXIMETER CONTEC^1 Each as needed.^Disp: 1 Each^Rfl: 0 Comp Stocking,Knee,Regular,Med misc^2 Each once daily.^Disp: 2 Each^Rfl: 0 loratadine (CLARITIN) 10 mg tablet^Take 1 tablet by mouth once daily.^Disp: 10 tablet^Rfl: 0 fluticasone (FLONASE) 50 mcg/actuation nasal spray^Use 2 Sprays in each nostril once daily. Rinse mouth after use.^Disp: 1 Bottle^Rfl: 11 FAMILY HISTORY Problem Relation Age of Onset Hypertension Mother Heart Mother Eczema Mother other (AAA) Mother other (Fibromyalgia) Mother Alcohol/Drug Father Alcohol Cancer Father lung Colon Cancer Father Hypertension Sister Asthma Sister other (Migraines) Sister other (Gout) Sister other (Fibromyalgia) Sister Breast Cancer Maternal Aunt 2 maternal aunts. other (MICRO PHOTOGRAPHER cancer) No Family History Social History Tobacco Use Smoking status: Every Day Packs/day: 0.25 Years: 29.00 Pack years: 7.25 Types: Cigarettes Start date: 11/17/1986 Last attempt to quit: 11/23/2021 Years since quittin.9 Smokeless tobacco: Never Vaping Use Vaping Use: Never used Substance Use Topics Alcohol use: Not Currently Comment: Rarely Drug use: No PHYSICAL EXAM BP 118/80 Pulse 86 Temp 36.3 C (97.4 F) (Temporal) Resp 16 Wt 60.3 kg (133 lb) SpO2 97% BMI 24.33 kg/m General Appearance: well appearing, in no acute distress, alert Skin: Skin color, texture, turgor normal for age; positives: scattered flat to some slightly raised red pinpoint rash generalized to abdomen Eyes: conjunctiva pink and moist, no icterus, sclera white, non-injected Neck: Thyroid normal size and symmetric without palpable nodules, No adenopathy Oropharynx: lips normal without lesions, no post-oropharyngeal erythema Lungs: clear to ausculation, posteriorly assessed. No wheezing. No coughing during visit, no conversational dysnpea noted Heart: RRR without murmur, gallop, or rubs. No ectopy Abdomen: Positive findings: distended, tenderness moderate LUQ and LLQ; bowel sounds normoactive Extremities: No deformities, edema, skin discoloration, clubbing or cyanosis. Good capillary refill. Health maintenance reviewed with patient: HEPATITIS B(1 of 3 - 3-dose series) Never done DTAP,TDAP,TD(6 - Tdap) due on 07/31/2006 COVID-19 VACCINE(3 - Booster for Pfizer series) due on 11/21/2021 MAMMOGRAM due on 11/18/2022 PAP TESTING due on 01/12/2023 SHINGRIX VACCINE(1 of 2) due on 01/12/2023 PNEUMOCOCCAL(2 - PCV) due on 01/12/2023 INFLUENZA(Season Ended) due on 03/09/2023 ANNUAL PCP TEAM CHRONIC DISEASE VISIT due on 10/06/2023 DIABETES SCREEN due on 02/27/2025 HPV TESTING due on 10/22/2025 LIPID SCREEN due on 11/15/2027 COLORECTAL CANCER SCREENING due on 02/12/2030 ALPHA-1 ANTITRYPSIN DEFICIENCY SCREENING Completed SPIROMETRY Completed HEPATITIS C SCREENING Completed HIV SCREENING Completed DATA REVIEWED: Most recent labs and imaging results. Outside chart from [facility] reviewed. ASSESSMENT/PLAN: 1. Constipation, unspecified constipation type - ICD9: 564.00, ICD10: K59.00 (primary diagnosis) Having patient hold lactulose and linzess as symptoms started with starting these medications. - COMP METABOLIC PANEL - CBC + DIFF - CT ABD/PEL W IVCON - IV CONTRAST (RADIOLOGY PROCEDURE) - ENTERIC CONTRAST (RADIOLOGY PROCEDURE) - follow up in 2 weeks. 2. Vomiting without nausea, unspecified vomiting type - ICD9: 787.03, ICD10: R11.11 As above - COMP METABOLIC PANEL - CBC + DIFF - LIPASE BLD - AMYLASE BLD - CT ABD/PEL W IVCON - IV CONTRAST (RADIOLOGY PROCEDURE) - ENTERIC CONTRAST (RADIOLOGY PROCEDURE) 3. Acute LUQ pain - ICD9: 789.02, 338.19, ICD10: R10.12 As above - COMP METABOLIC PANEL - CBC + DIFF - LIPASE BLD - AMYLASE BLD - CT ABD/PEL W IVCON - IV CONTRAST (RADIOLOGY PROCEDURE) - ENTERIC CONTRAST (RADIOLOGY PROCEDURE) 4. Rash - ICD9: 782.1, ICD10: R21 - appears petechial but with some slightly raised unsure. Rash noted on exam, patient did not realize she had it. Denies any itchiness. - will further evaluate in 2 weeks - COMP METABOLIC PANEL - CBC + DIFF Prescription instructions reviewed with patient as applicable. Potential red flag symptoms discussed with the patient. Reviewed appropriate action plan to take if red flag symptoms occur. Patient agreeable to treatment plan. Laura Hernandez APRN.CNP documented in this encounterCos[facility]05-[facility]23 Miscellaneous Notes* Telephone Encounter - Danielle Shabazz MA - 11/10/2022 1:26 PM EDT Follow up form faxed for authorization * Telephone Encounter - Danielle Shabazz MA - 11/07/2022 12:31 PM EDT Prior authorization for Peter completed and faxed. documented in this encounterCoshocton [facility]05-05-2023 Procedure [facility]05-01-2023 Miscellaneous Notes* Addendum Note - Roselyn Tobar PA-C - 11/06/2022 2:34 PM EDTAddended by: ROSELYN TOBAR on: 11/06/2022 02:34 PM Modules accepted: Orders documented in this encounterCoshocton [facility]04-20-2023 History of Present illness Narrative* Roselyn Tobar PA-C - 10/26/2022 10:37 AM EDT CHIEF COMPLAINT: Patient presents with: Procedure Follow Up: EGD 09/12/22. Waking up vomiting in the night tastes like battery acid. Stomach feels on fire HPI Accompanied by spouse. Jane Steinberg is a 51 year old female PMHx positive for anorexia nervosa/bulimia (s/p treatment), uterine CA (s/p hysterectomy 2005), anxiety, asthma, Duggan's, COPD, GERD,here today for Procedure Follow Up (EGD 09/12/22. Waking up vomiting in the night tastes like battery acid. Stomach feels onfire). Seen in office for h/o H. Pylori gastritis, Duggan's. Regimens attempted in the past included quadruple, triple, Doxy containing, Levaquin containing. Levaquin tx confirmed eradication 12/2020. Given recurrent positive 09/2021, rifabutin regimen was advised. Positive again 11/2021, advised to see Infectious disease. Seen by them 01/2022 and Isha advised w/ Protonix. Repeat EGD 09/2022 was neg for H. Pylori. Taking Prevacid 30 mg BID with minimal relief in reflux. Still having persistent N/V, burning/fire sensations in stomach. Having dysphagia with solids/liquids. Weight has been stable. Taking Miralax full cap daily, stool softeners BID and having a BM every 1.5 weeks. Abd pain is generalized, 7/10, improves with a BM. EGD 09/2022 FINAL DIAGNOSIS A. Stomach, biopsy: - Mild chronic gastritis. Immunohistochemical stain for Helicobacter pylori is negative for organisms. GES, HIDA 2020 both negative OV 08/16/2022 Jane Steinberg is a 51 year old female PMHx positive for anorexia nervosa/bulimia (s/p treatment), uterine CA (s/p hysterectomy 2005), anxiety, asthma, Duggan's, COPD, GERD, here today for Heartburn (Vomiting, Dysphagia ). Seen in 2021 for heartburn, RUQ pain. Repeat EGD 09/2021 showed evidenceof H. Pylori gastritis, Duggan's w/o dysplasia. Regimens attempted in the past included quadruple,triple, Doxy containing, Levaquin containing. Levaquin tx confirmed eradication 12/2020. Given recurrent positive 09/2021, rifabutin regimen was advised. Positive again 11/2021, advised to see Infectious disease. Seen by them 01/2022 and Isha advised w/ Protonix. Pt did not wish to follow up withthem after. Noted raspy voice for the past few weeks. Feels as though there is a lump in her voice.Protonix 40 mg BID helping minimally for her reflux, feels as though her sx are significantly getting worse. Having one episode of emesis daily. On Miralax PRN for her constipation with relief. Denies changes in bowel habits, abd pain, fevers, bloating/gas. EGD 09/2021 A. Duodenum, biopsy: - Duodenal mucosa with no histopathologic abnormality. B. Stomach, biopsy: - Helicobacter pylori gastritis with acute and chronic inflammation. - The organisms are identified by Helicobacter pylori immunohistochemistry. C. Esophagus, biopsy: - Squamoglandular junction mucosa with intestinal metaplasia and acute and chronic inflammation. - There is no evidence of dysplasia. GES, HIDA 2020 both negative Current Outpatient Medications Medication Sig amitriptyline (ELAVIL) 100 mg tablet Take 1 tablet by mouth daily at bedtime. doxycycline (VIBRA-TABS) 100 mg tablet MUCUS RELIEF ER 600 mg 12 hr tablet Take 1,200 mg by mouth twice daily. lansoprazole (PREVACID) 30 mg capsule Take 1 capsule by mouth twice daily. Take on empty stomach atleast 30 minutes before eating. promethazine (PHENERGAN) 25 mg tablet Take 1 tablet by mouth every 8 hours as needed (for nausea). montelukast (SINGULAIR) 10 mg tablet Take 1 tablet by mouth daily at bedtime. ibuprofen (MOTRIN) 800 mg tablet Take 1 tablet by mouth every 8 hours as needed for pain. rbfdgndlmfb-dbyogikgw-mtqzivyp (TRELEGY ELLIPTA) 200-62.5-25 mcg inhalation powder Inhale as instructed. zolpidem (AMBIEN) 5 mg tablet Take 1 tablet by mouth at bedtime as needed for sedation for up to 30days. albuterol HFA (VENTOLIN HFA) 90 mcg/actuation inhaler Inhale 2 Puffs as instructed every 4 hours asneeded for wheezing/shortness of breath. L. acidophilus-L. rhamnosus 15 billion cell cap Take 1 capsule by mouth once daily. FLORAJEN WOMEN.If on antibiotic, take at least 1-2 hours before or after antibiotic. KEEP REFRIGERATED ergocalciferol 50,000 unit capsule (VITAMIN D2, DRISDOL) Take 1 capsule by mouth one time a week. albuterol (PROVENTIL) 2.5 mg /3 mL (0.083 %) nebulizer solution Use 3 mL via nebulizer every 6 hours as needed. PHENYLephrine-cocoa butter (PREPARATION H,PE,CB,) 0.25-88.44 % supp 1 Suppository by RECTAL route once daily. (Patient taking differently: 1 Suppository by RECTAL route as needed.) ipratropium-albuterol (DUONEB) 0.5 mg-3 mg(2.5 mg base)/3 mL nebu Inhale 3 mL as instructed every 4hours as needed. PULSE OXIMETER CONTEC 1 Each as needed. loratadine (CLARITIN) 10 mg tablet Take 1 tablet by mouth once daily. fluticasone (FLONASE) 50 mcg/actuation nasal spray Use 2 Sprays in each nostril once daily. Rinse mouth after use. COMPACT SPACE CHAMBER as directed. Comp Stocking,Knee,Regular,Med misc 2 Each once daily. Current Facility-Administered Medications Medication Dose Route Frequency perflutren lipid microspheres 1.3 mL in NaCl (PF) 0.9% 10 mL injection (DEFINITY) INTRAVENOUS DIRECTED PRN sodium chloride 0.9 % (flush) 10 mL (BD POSIFLUSH) 10 mL INTRAVENOUS DIRECTED PRN ALLERGIES Allergen Reactions Penicillins Anaphylaxis Social History Tobacco Use Smoking status: Every Day Packs/day: 0.25 Years: 29.00 Pack years: 7.25 Types: Cigarettes Start date: 11/17/1986 Last attempt to quit: 11/23/2021 Years since quittin.9 Smokeless tobacco: Never Vaping Use Vaping Use: Never used Substance Use Topics Alcohol use: Not Currently Comment: Rarely Drug use: No PAST MEDICAL HISTORY Diagnosis Date Anorexia nervosa 06/11/2006 Stable; treated in past Anxiety Asthma Duggan's esophagus Bulimia nervosa 06/11/2006 Stable, treated in past Chest pain Chronic obstructive pulmonary disease (COPD) (HCC) Emphysema lung (HCC) GERD (gastroesophageal reflux disease) H. pylori infection cronic HISTORY OF CANCER OF UTERUS 06/11/2006 2004, Hysterectomy - complete Internal hemorrhoids Lung disease Migraines Snoring Tobacco use disorder 06/11/2006 Quit 09/2015. Unspecified asthma(493.90) Childhood diagnosis. PAST SURGICAL HISTORY Procedure Laterality Date APPENDECTOMY 1998 COLONOSCOPY FLX DX W/COLLJ SPEC WHEN PFRMD 02/13/2020 Colonoscopy EGD W/O [facility] SPEC VARICIES INJ 10/06/2021 EGD W/O [facility] SPEC VARICIES INJ 09/12/2022 ESOPHAGOGASTRODUODENOSCOPY TRANSORAL DIAGNOSTIC 03/13/2017 EGD ESOPHAGOGASTRODUODENOSCOPY TRANSORAL DIAGNOSTIC 02/13/2020 EGD GASTRIC EMPTYING IMAG STUDY 02/17/2021 PAST SURGICAL HISTORY OF 2004 Lymph Node Bx 1999 TOTAL ABDOMINAL HYSTERECT W/WO RMVL TUBE OVARY 2004 and BSO - pelvic pain/benign FAMILY HISTORY Problem Relation Age of Onset Hypertension Mother Heart Mother Eczema Mother other (AAA) Mother other (Fibromyalgia) Mother Alcohol/Drug Father Alcohol Cancer Father lung Colon Cancer Father Hypertension Sister Asthma Sister other (Migraines) Sister other (Gout) Sister other (Fibromyalgia) Sister Breast Cancer Maternal Aunt 2 maternal aunts. other (MICRO PHOTOGRAPHER cancer) No Family History REVIEW OF SYSTEMS Review of Systems Constitutional: Positive for fatigue. HENT: Positive for trouble swallowing and voice change. Respiratory: Positive for chest tightness, shortness of breath and wheezing. Gastrointestinal: Positive for abdominal pain, constipation and nausea. Change in bowel habits All other systems reviewed and are negative. PHYSICAL EXAM BP 108/70 Pulse 90 Ht 157.5 cm (5' 2) Wt 58.5 kg (129 lb) BMI 23.59 kg/m Physical Exam Constitutional: General: She is not in acute distress. Appearance: Normal appearance. She is normal weight. She is not ill-appearing, toxic-appearing or diaphoretic. HENT: Head: Normocephalic and atraumatic. Nose: Nose normal. Eyes: General: No scleral icterus. Right eye: No discharge. Left eye: No discharge. Extraocular Movements: Extraocular movements intact. Conjunctiva/sclera: Conjunctivae normal. Pupils: Pupils are equal, round, and reactive to light. Cardiovascular: Rate and Rhythm: Normal rate and regular rhythm. Pulses: Normal pulses. Heart sounds: Normal heart sounds. No murmur heard. No friction rub. No gallop. Pulmonary: Effort: No respiratory distress. Breath sounds: No stridor. Wheezing (bilateral wheezing) present. No rhonchi or rales. Chest: Chest wall: No tenderness. Abdominal: General: Bowel sounds are normal. There is distension. Palpations: Abdomen is soft. There is no mass. Tenderness: There is no abdominal tenderness. There is no right CVA tenderness, left CVA tenderness, guarding or rebound. Hernia: No hernia is present. Musculoskeletal: General: Normal range of motion. Cervical back: Normal range of motion and neck supple. Skin: General: Skin is warm and dry. Neurological: General: No focal deficit present. Mental Status: She is alert and oriented to person, place, and time. Psychiatric: Mood and Affect: Mood normal. Behavior: Behavior normal. Assessment/Plan (K22.70) 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 (primary encounter diagnosis) (R13.10) Dysphagia, unspecified type (Z86.19) History of Helicobacter pylori infection (K59.09) Other constipation 1. 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 - famotidine (PEPCID) 40 mg tablet; Take 1 tablet by mouth once daily as needed. Dispense: 90 tablet; Refill: 2 - Continue Prevacid 30 mg BID - Start Pepcid 40 mg daily/PRN - Follow reflux precautions - Avoid NSAIDs - H. Pylori neg on most recent EGD 09/2022 - Will obtain esophagram to further eval dysphagia/dyspepsia, if unremarkable consider HREM (discussed this procedure with pt and reports she would like to wait on this testing at this time but will reconsider if needed) 2. Dysphagia, unspecified type - XR ESOPHAGRAM; Future - famotidine (PEPCID) 40 mg tablet; Take 1 tablet by mouth once daily as needed. Dispense: 90 tablet; Refill: 2 3. History of Helicobacter pylori infection - famotidine (PEPCID) 40 mg tablet; Take 1 tablet by mouth once daily as needed. Dispense: 90 tablet; Refill: 2 4. Other constipation - XR ABDOMEN 1V SUPINE; Future - lactulose (ENULOSE) 10 gram/15 mL solution; Take 15 mL by mouth twice daily. Dispense: 473 mL; Refill: 2 - Colon 2020 normal - Taking Pepto regularly, advised to d/c - Has been taking Miralax daily, stool softeners BID with one BM every 1.5 weeks - Will obtain KUB to assess stool burden - If KUB clear, she will start lactulose daily, is to [place] message/call me if any S/Es I spent a total of 20 minutes on the date of the service which included preparing to see the patient, [id number] patient care, completing clinical documentation, obtaining and/or reviewing separately obtained history, performing a medically appropriate examination, counseling and educating the pat ient/family/caregiver, ordering medications, tests, or procedures, communicating with other HCPs (not separately reported), independently interpreting results (not separately reported), communicatingresults to the patient/family/caregiver, and care coordination (not separately reported). Roselyn Tobar PA-C October 26, 2022 11:03 AM documented in this encounterCos[facility]03-30-2023 Instructions* Patient Instructions* Laura Hernandez APRN.CNP - 10/05/2022 8:50 AM EDT Start taking Pepcid/Famotidine before bed. Take a low dose over the counter laxative today as directed and increase stool softener to twice a day. Follow up if no improvement in bowels or urination. documented in this encounterCoshoct[facility]03-30-2023 History of Present illness Narrative* Laura Hernandez APRN.CNP - 10/05/2022 8:37 AM EDT CC: Patient presents with: Recheck HPI Jane Steinberg is a 51 year old female who presents today for concerns of issues since EGD> Had an EGD a few weeks ago and has had difficulty swallowing since then. Does not choke but all foods feel like they get stuck and has trouble breathing until it goes down. Does not occur with liquids. Has had an increase in her heart burn nausea and vomited twice. Currently is taking prevacid before meals. Has a follow up appointment with GI in 4 weeks. Also has had issues with constipation. Is having a bowel movement daily which is very hard and small brown balls. Are very difficult to pass as well. Has been taking miralax and 1 over the counter stool softener daily to be able to have this small hard bowel movements. [place] also noticed an increase in her urination but denies any pain with urination dark or foul smelling urine. REVIEW OF SYSTEMS General: no fevers, no chills, no night sweats, no recurrent infections, no change in appetite, no change in energy, and no significant changes in weight Respiratory: no increase in chronic cough, wheezing, or shortness of breath, Cardiovascular: no chest pain, no chest pressure, no palpitations, and no swelling GI: See HPI : See HPI Neurologic: No headache, weakness, numbness, tingling, dizziness, syncope. PAST MEDICAL HISTORY Diagnosis Date Anorexia nervosa 06/11/2006 Stable; treated in past Anxiety Asthma Duggan's esophagus Bulimia nervosa 06/11/2006 Stable, treated in past Chest pain Chronic obstructive pulmonary disease (COPD) (HCC) Emphysema lung (HCC) GERD (gastroesophageal reflux disease) H. pylori infection cronic HISTORY OF CANCER OF UTERUS 06/11/20062003, Hysterectomy - complete Internal hemorrhoids Lung disease Migraines Snoring Tobacco use disorder 06/11/2006 Quit 09/2015. Unspecified asthma(493.90) Childhood diagnosis. PAST SURGICAL HISTORY Procedure Laterality Date APPENDECTOMY 1998 COLONOSCOPY FLX DX W/COLLJ SPEC WHEN PFRMD 02/13/2020 Colonoscopy EGD W/O [facility] SPEC VARICIES INJ 10/06/2021 ESOPHAGOGASTRODUODENOSCOPY TRANSORAL DIAGNOSTIC 03/13/2017 EGD ESOPHAGOGASTRODUODENOSCOPY TRANSORAL DIAGNOSTIC 02/13/2020 EGD GASTRIC EMPTYING IMAG STUDY 02/17/2021 PAST SURGICAL HISTORY OF 2004 Lymph Node Bx 1999 TOTAL ABDOMINAL HYSTERECT W/WO RMVL TUBE OVARY 2004 and BSO - pelvic pain/benign ALLERGIES Penicillins MEDICATIONS aspirin, enteric coated (ASPIR-81) 81 mg EC tablet^Take 1 tablet by mouth once daily.^Disp: 90 tablet^Rfl: 2 doxycycline (VIBRA-TABS) 100 mg tablet^^Disp: ^Rfl: MUCUS RELIEF ER 600 mg 12 hr tablet^Take 1,200 mg by mouth twice daily.^Disp: ^Rfl: lansoprazole (PREVACID) 30 mg capsule^Take 1 capsule by mouth twice daily. Take on empty stomach atleast 30 minutes before eating.^Disp: 180 capsule^Rfl: 3 promethazine (PHENERGAN) 25 mg tablet^Take 1 tablet by mouth every 8 hours as needed (for nausea).^Disp: 30 tablet^Rfl: 1 amitriptyline (ELAVIL) 100 mg tablet^Take 1 tablet by mouth daily at bedtime.^Disp: 30 tablet^Rfl: 1 montelukast (SINGULAIR) 10 mg tablet^Take 1 tablet by mouth daily at bedtime.^Disp: 90 tablet^Rfl: 3 ibuprofen (MOTRIN) 800 mg tablet^Take 1 tablet by mouth every 8 hours as needed for pain.^Disp: 60 tablet^Rfl: 1 wqyhwwvqeft-oncuwyzao-tfamzcfq (TRELEGY ELLIPTA) 200-62.5-25 mcg inhalation powder^Inhale as instructed.^Disp: ^Rfl: zolpidem (AMBIEN) 5 mg tablet^Take 1 tablet by mouth at bedtime as needed for sedation for up to 30days.^Disp: 15 tablet^Rfl: 1 albuterol HFA (VENTOLIN HFA) 90 mcg/actuation inhaler^Inhale 2 Puffs as instructed every 4 hours asneeded for wheezing/shortness of breath.^Disp: 18 g^Rfl: 2 L. acidophilus-L. rhamnosus 15 billion cell cap^Take 1 capsule by mouth once daily. FLORAJEN WOMEN.If on antibiotic, take at least 1-2 hours before or after antibiotic. KEEP REFRIGERATED^Disp: 30 capsule^Rfl: 11 ergocalciferol 50,000 unit capsule (VITAMIN D2, DRISDOL)^Take 1 capsule by mouth one time a week.^Disp: 4 capsule^Rfl: 1 albuterol (PROVENTIL) 2.5 mg /3 mL (0.083 %) nebulizer solution^Use 3 mL via nebulizer every 6 hours as needed.^Disp: 180 mL^Rfl: 3 PHENYLephrine-cocoa butter (PREPARATION H,PE,CB,) 0.25-88.44 % supp^1 Suppository by RECTAL route once daily.^Disp: 30 Suppository^Rfl: 2 (Patient taking differently: 1 Suppository by RECTAL route asneeded.) COMPACT SPACE CHAMBER^as directed.^Disp: ^Rfl: ipratropium-albuterol (DUONEB) 0.5 mg-3 mg(2.5 mg base)/3 mL nebu^Inhale 3 mL as instructed every 4hours as needed.^Disp: 20 Vial^Rfl: 0 PULSE OXIMETER CONTEC^1 Each as needed.^Disp: 1 Each^Rfl: 0 Comp Stocking,Knee,Regular,Med misc^2 Each once daily.^Disp: 2 Each^Rfl: 0 loratadine (CLARITIN) 10 mg tablet^Take 1 tablet by mouth once daily.^Disp: 10 tablet^Rfl: 0 fluticasone (FLONASE) 50 mcg/actuation nasal spray^Use 2 Sprays in each nostril once daily. Rinse mouth after use.^Disp: 1 Bottle^Rfl: 11 FAMILY HISTORY Problem Relation Age of Onset Hypertension Mother Heart Mother Eczema Mother other (AAA) Mother other (Fibromyalgia) Mother Alcohol/Drug Father Alcohol Cancer Father lung Colon Cancer Father Hypertension Sister Asthma Sister other (Migraines) Sister other (Gout) Sister other (Fibromyalgia) Sister Breast Cancer Maternal Aunt 2 maternal aunts. other (MICRO PHOTOGRAPHER cancer) No Family History Social History Tobacco Use Smoking status: Every Day Packs/day: 0.25 Years: 29.00 Pack years: 7.25 Types: Cigarettes Start date: 11/17/1986 Last attempt to quit: 11/23/2021 Years since quittin.8 Smokeless tobacco: Never Vaping Use Vaping Use: Never used Substance Use Topics Alcohol use: Not Currently Comment: Rarely Drug use: No PHYSICAL EXAM BP 112/70 Pulse 84 Temp 36.2 C (97.1 F) (Temporal) Resp 16 Wt 62.1 kg (137 lb) SpO2 94% BMI 25.06 kg/m General Appearance: well appearing, in no acute distress, alert Skin: Skin color, texture, turgor normal for age; Eyes: conjunctiva pink and moist, no icterus, sclera white, non-injected Neck: Thyroid normal size and symmetric without palpable nodules, Neck supple, No adenopathy Oropharynx: tongue midline and normal, soft palate, uvula, and tonsils normal, palpation of salivary glands negative Lymph nodes: No cervical lymphadenopathy and No supraclavicular lymphadenopathy Lungs: Lungs with scattered wheezing which is her baseline but no rhonchi or rales. Heart: RRR without murmur, gallop, or rubs. No ectopy Abdomen: Abdomen soft, non-tender. Bowel sounds normal. No masses, organomegaly, Negative CVA tenderness BUE Extremities: No deformities, edema, skin discoloration, clubbing or cyanosis. Good capillary refill. Health maintenance reviewed with patient: HEPATITIS B(1 of 3 - 3-dose series) Never done DTAP,TDAP,TD(6 - Tdap) due on 07/31/2006 COVID-19 VACCINE(3 - Booster for Pfizer series) due on 11/21/2021 INFLUENZA(1) due on 03/09/2022 MAMMOGRAM due on 11/18/2022 PAP TESTING due on 01/12/2023 SHINGRIX VACCINE(1 of 2) due on 01/12/2023 PNEUMOCOCCAL(2 - PCV) due on 01/12/2023 ANNUAL PCP TEAM CHRONIC DISEASE VISIT due on 08/17/2023 DIABETES SCREEN due on 02/27/2025 HPV TESTING due on 10/22/2025 LIPID SCREEN due on 11/18/2026 COLORECTAL CANCER SCREENING due on 02/12/2030 ALPHA-1 ANTITRYPSIN DEFICIENCY SCREENING Completed SPIROMETRY Completed HEPATITIS C SCREENING Completed HIV SCREENING Completed DATA REVIEWED: Most recent labs ASSESSMENT/PLAN: 1. Gastroesophageal reflux disease, unspecified whether esophagitis present - ICD9: 530.81, ICD10: K21.9 (primary diagnosis) - uncontrolled and probable cause of things feeling stuck in her throat. - start taking pepcid prior to bed. - discussed with Roselyn KEENE from GI and she is in agreement with this plan -keep upcoming appointment with GI - Discussed lifestyle modifications including losing weight, limiting caffeine, no meals three hours before sleep, and head of bed elevation 2. Increased urinary frequency - ICD9: 788.41, ICD10: R35.0 - Urine dip completely normal. Possible result of constipation and discussed this with patient - UA DIP, URINE (POC) - follow up if no improvement or worsening of symptoms for further evaluation. 3. Constipation, unspecified constipation type - ICD9: 564.00, ICD10: K59.00 - assessment normal - Start taking stool softener twice daily until regular daily large soft bowel movements. hold for loose stools. Take low dose over the counter laxative today. - follow up if no improvement in bowel movements in the next few days - go to ER for abdominal pain, fever, or vomiting. Prescription instructions reviewed with patient as applicable. Potential red flag symptoms discussed with the patient. Reviewed appropriate action plan to take if red flag symptoms occur. Patient agreeable to treatment plan. Laura Hernandez APRN.CNP documented in this encounter[facility] Surgical operation note* Operative Report - Charles Riggs MD - 09/12/2022 1:34 PM EST OPERATIVE/PROCEDURE REPORT LOG ID: [id number] Surgery/Procedure Date: Incision/Procedure Start Time: 1:50 PM Incision Close/Procedure End Time: 1:52 PM Surgeon(s)/Proceduralist(s) and Back End Web Developer(s): Charles Riggs MD No Additional Staff Procedure(s): Esophagogastroduodenoscopy (EGD) with biopsy Anesthesia: Monitored anesthesia care (MAC) Brief History: 51/F with H pylori infection for repeat upper endoscopy Procedure Details: The patient was placed in the left lateral decubitus position. A bite block was placed and medications administered as above. The Olympus gastroscope was used to intubate the oropharynx and esophagus with ease. Esophagus- No strictures; mucosa unremarkable; Diaphragmatic indentation at 38 cm, GE junction at 38 cm and Squamocolumnar junction at 38 cm from incisors. Stomach- Cardia- No masses Body- normal Antrum- normal Fundus (during retroflexion)- normal Duodenum- Bulb- normal; Second part- normal The scope was then withdrawn and the patient tolerated the procedure well. Pre-Op/Pre-Procedure Diagnosis: H pylori infection S/P antibiotic therapy with persistent infection Post-Op/Post-Procedure Diagnosis: Normal gastroscopy. Biopsies taken to rule out H. Pylori. Specimens: See above EBL: None Complications: None Recommendations: Continue current medications Follow up pathology Follow up in GI clinic I/primary surgeon/proceduralist performed the procedure with assistance. Charles Riggs MD SIGNATURE: Charles Riggs MD PATIENT NAME: Jane Steinberg DATE: September 12, 2022 TIME: 2:26 PM PAGER/CONTACT #: [phone] documented in this encounterCos[facility]02-[facility]23 Miscellaneous Notes* Telephone Encounter - Aline Daily LPN - 08/31/2022 12:07 PM EST Patient has been identified by name and date of : Yes Patient phones for refill(s): Requested Prescriptions Pending Prescriptions Disp Refills aspirin, enteric coated (ASPIR-81) 81 mg EC tablet 90 tablet 2 Sig: Take 1 tablet by mouth once daily. Date of last office visit in primary care: 08/17/2022 Please advise. Thank you. Aline Daily LPN documented in this encounterCos[facility]02-09-[facility]23 History of Present illness Narrative* Laura Hernandez APRN.DUMPER - 08/17/2022 7:59 AM EST CC: Patient presents with: Recheck HPI Jane Steinberg is a 51 year old female who presents today for COPD Exacerbation Follow up. Was seen 1 week ago with increased shortness of breath, wheezing, weakness, moist cough, increased heart burn, and vomiting. Was prescribed steroids and Levaquin. Took steroids as ordered, levaquin 5 days after starting was stopped by her rug sample beveler and switched to doxycycline which she is continuing to take. Has had improved shortness of breath, wheezing, cough and overall feels she is breathing much better. Saw GI for the increase in heartburn and vomiting and is getting scheduled for an upper endoscopy. 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 Was started on pepcid. No further vomiting, but has phenergan for the nausea. Migraines without aura. At last appointment amitriptyline was increased to 100mg before bed with improvement that migraines are less severe. Still getting headaches daily but resolved with ibuprofen.Pain is from forehead to back of school and is a throbbing. With the headache patient is very sensitive to light and sound and nausea increases. REVIEW OF SYSTEMS General: no fevers, no chills, no night sweats, no recurrent infections, no change in appetite, no change in energy, and no significant changes in weight Respiratory: See HPI Cardiovascular: no chest pain, no chest pressure, no palpitations, and no swelling Neurologic: No numbness, tingling, dizziness, memory loss, syncope. PAST MEDICAL HISTORY Diagnosis Date Anorexia nervosa 06/11/2006 Stable; treated in past Anxiety Asthma Duggan's esophagus Bulimia nervosa 06/11/2006 Stable, treated in past Chest pain Chronic obstructive pulmonary disease (COPD) (HCC) Emphysema lung (HCC) GERD (gastroesophageal reflux disease) H. pylori infection cronic HISTORY OF CANCER OF UTERUS 06/11/2006 2004, Hysterectomy - complete Internal hemorrhoids Lung disease Migraines Snoring Tobacco use disorder 06/11/2006 Quit 09/2015. Unspecified asthma(493.90) Childhood diagnosis. PAST SURGICAL HISTORY Procedure Laterality Date APPENDECTOMY 1998 COLONOSCOPY FLX DX W/COLLJ SPEC WHEN PFRMD 02/13/2020 Colonoscopy EGD W/O [facility] SPEC VARICIES INJ 10/06/2021 ESOPHAGOGASTRODUODENOSCOPY TRANSORAL DIAGNOSTIC 03/13/2017 EGD ESOPHAGOGASTRODUODENOSCOPY TRANSORAL DIAGNOSTIC 02/13/2020 EGD GASTRIC EMPTYING IMAG STUDY 02/17/2021 PAST SURGICAL HISTORY OF 2003 Lymph Node Bx 1999 TOTAL ABDOMINAL HYSTERECT W/WO RMVL TUBE OVARY 2004 and BSO - pelvic pain/benign ALLERGIES Penicillins MEDICATIONS doxycycline (VIBRA-TABS) 100 mg tablet^^Disp: ^Rfl: MUCUS RELIEF ER 600 mg 12 hr tablet^Take 1,200 mg by mouth twice daily.^Disp: ^Rfl: lansoprazole (PREVACID) 30 mg capsule^Take 1 capsule by mouth twice daily. Take on empty stomach atleast 30 minutes before eating.^Disp: 180 capsule^Rfl: 3 promethazine (PHENERGAN) 25 mg tablet^Take 1 tablet by mouth every 8 hours as needed (for nausea).^Disp: 30 tablet^Rfl: 1 predniSONE (DELTASONE) 10 mg tablet^Take 4 tabs daily for 3 days, then 2 tabs daily for 3 days, then 1 tab daily for 3 days with food.^Disp: 21 tablet^Rfl: 0 levoFLOXacin (LEVAQUIN) 750 mg tablet^Take 1 tablet by mouth once daily for 7 days.^Disp: 7 tablet^Rfl: 0 amitriptyline (ELAVIL) 100 mg tablet^Take 1 tablet by mouth daily at bedtime.^Disp: 30 tablet^Rfl: 1 montelukast (SINGULAIR) 10 mg tablet^Take 1 tablet by mouth daily at bedtime.^Disp: 90 tablet^Rfl: 3 ibuprofen (MOTRIN) 800 mg tablet^Take 1 tablet by mouth every 8 hours as needed for pain.^Disp: 60 tablet^Rfl: 1 jpuryudvqfz-ennwgnqoh-jvdvjjsi (TRELEGY ELLIPTA) 200-62.5-25 mcg inhalation powder^Inhale as instructed.^Disp: ^Rfl: aspirin, enteric coated (ASPIR-81) 81 mg EC tablet^Take 1 tablet by mouth once daily.^Disp: 90 tablet^Rfl: 2 zolpidem (AMBIEN) 5 mg tablet^Take 1 tablet by mouth at bedtime as needed for sedation for up to 30days.^Disp: 15 tablet^Rfl: 1 albuterol HFA (VENTOLIN HFA) 90 mcg/actuation inhaler^Inhale 2 Puffs as instructed every 4 hours asneeded for wheezing/shortness of breath.^Disp: 18 g^Rfl: 2 L. acidophilus-L. rhamnosus 15 billion cell cap^Take 1 capsule by mouth once daily. FLORAJEN WOMEN.If on antibiotic, take at least 1-2 hours before or after antibiotic. KEEP REFRIGERATED^Disp: 30 capsule^Rfl: 11 ergocalciferol 50,000 unit capsule (VITAMIN D2, DRISDOL)^Take 1 capsule by mouth one time a week.^Disp: 4 capsule^Rfl: 1 albuterol (PROVENTIL) 2.5 mg /3 mL (0.083 %) nebulizer solution^Use 3 mL via nebulizer every 6 hours as needed.^Disp: 180 mL^Rfl: 3 PHENYLephrine-cocoa butter (PREPARATION H,PE,CB,) 0.25-88.44 % supp^1 Suppository by RECTAL route once daily.^Disp: 30 Suppository^Rfl: 2 (Patient taking differently: 1 Suppository by RECTAL route asneeded.) COMPACT SPACE CHAMBER^as directed.^Disp: ^Rfl: ipratropium-albuterol (DUONEB) 0.5 mg-3 mg(2.5 mg base)/3 mL nebu^Inhale 3 mL as instructed every 4hours as needed.^Disp: 20 Vial^Rfl: 0 PULSE OXIMETER CONTEC^1 Each as needed.^Disp: 1 Each^Rfl: 0 Comp Stocking,Knee,Regular,Med misc^2 Each once daily.^Disp: 2 Each^Rfl: 0 loratadine (CLARITIN) 10 mg tablet^Take 1 tablet by mouth once daily.^Disp: 10 tablet^Rfl: 0 fluticasone (FLONASE) 50 mcg/actuation nasal spray^Use 2 Sprays in each nostril once daily. Rinse mouth after use.^Disp: 1 Bottle^Rfl: 11 FAMILY HISTORY Problem Relation Age of Onset Hypertension Mother Heart Mother Eczema Mother other (AAA) Mother other (Fibromyalgia) Mother Alcohol/Drug Father Alcohol Cancer Father lung Colon Cancer Father Hypertension Sister Asthma Sister other (Migraines) Sister other (Gout) Sister other (Fibromyalgia) Sister Breast Cancer Maternal Aunt 2 maternal aunts. other (MICRO PHOTOGRAPHER cancer) No Family History Social History Tobacco Use Smoking status: Former Packs/day: 0.25 Years: 29.00 Pack years: 7.25 Types: Cigarettes Start date: 11/17/1986 Quit date: 11/23/2021 Years since quittin.7 Smokeless tobacco: Never Vaping Use Vaping Use: Never used Substance Use Topics Alcohol use: Not Currently Comment: Rarely Drug use: No PHYSICAL EXAM There were no vitals taken for this visit. General Appearance: well appearing, in no acute distress, alert Skin: Skin color, texture, turgor normal for age; Eyes: PERRLA, EOM's intact, conjunctiva pink and moist, no icterus, sclera white, non-injected Lungs: Lungs with expiratory wheezes throughout posteriorly. No rhonchi or rales. Heart: RRR without murmur, gallop, or rubs. No ectopy Neuro:Gait normal. Reflexes normal and symmetric. Sensation grossly intact., speech normal, mental status intact, muscle tone normal, muscle strength normal Health maintenance reviewed with patient: HEPATITIS B(1 of 3 - 3-dose series) Never done DTAP,TDAP,TD(6 - Tdap) due on 07/31/2006 COVID-19 VACCINE(3 - Booster for Pfizer series) due on 11/21/2021 INFLUENZA(1) due on 03/09/2022 PAP TESTING due on 01/12/2023 SHINGRIX VACCINE(1 of 2) due on 01/12/2023 PNEUMOCOCCAL(2 - PCV) due on 01/12/2023 MAMMOGRAM due on 11/18/2022 ANNUAL PCP TEAM CHRONIC DISEASE VISIT due on 08/10/2023 DIABETES SCREEN due on 02/27/2025 HPV TESTING due on 10/22/2025 LIPID SCREEN due on 11/18/2026 COLORECTAL CANCER SCREENING due on 02/12/2030 ALPHA-1 ANTITRYPSIN DEFICIENCY SCREENING Completed SPIROMETRY Completed HEPATITIS C SCREENING Completed HIV SCREENING Completed DATA REVIEWED: No new labs ASSESSMENT/PLAN: 1. Chronic obstructive pulmonary disease, unspecified COPD type (HCC) - ICD9: 496, ICD10: J44.9 (primary diagnosis) - much improvement - continue with doxycyline as ordered by pulmonology and recommendations by them - continue current medications - follow up in 3 months or earlier if needed 2. Gastroesophageal reflux disease, unspecified whether esophagitis present - ICD9: 530.81, ICD10: K21.9 - continue with plans for upper endoscopy and med changes as ordered by gastroenterology - Discussed lifestyle modifications including losing weight, limiting caffeine, no meals three hours before sleep, and head of bed elevation 3. Migraine without aura and without status migrainosus, not intractable - ICD9: 346.10, ICD10: G43.009 - no red flag symptoms or assessment findings - improved control with increase in amitriptyline. Will continue this for now, but all of her GI issues, we need to decrease the amount of ibuprofen and discussed this with patient. If they do not continue to improve in the next 2-4 weeks, patient should follow up and will try nurtec or increase dose of amitriptyline. - go to ER for sudden or severe headache, weakness, numbness, confusion, or any other urgent concerns Prescription instructions reviewed with patient as applicable. Potential red flag symptoms discussed with the patient. Reviewed appropriate action plan to take if red flag symptoms occur. Patient agreeable to treatment plan. Laura Hernandez APRN.CNP documented in this encounterCos[facility]02-08-[facility]23 History of Present illness Narrative* Roselyn Tobar PA-C - 08/16/2022 8:17 AM EST CHIEF COMPLAINT: Patient presents with: Heartburn : Vomiting, Dysphagia HPI Jane Steinberg is a 51 year old female PMHx positive for anorexia nervosa/bulimia (s/p treatment), uterine CA (s/p hysterectomy 2005), anxiety, asthma, Duggan's, COPD, GERD, here today for Heartburn (Vomiting, Dysphagia ). Seen in 2021 for heartburn, RUQ pain. Repeat EGD 09/2021 showed evidenceof H. Pylori gastritis, Duggan's w/o dysplasia. Regimens attempted in the past included quadruple,triple, Doxy containing, Levaquin containing. Levaquin tx confirmed eradication 12/2020. Given recurrent positive 09/2021, rifabutin regimen was advised. Positive again 11/2021, advised to see Infectious disease. Seen by them 01/2022 and Isha advised w/ Protonix. Pt did not wish to follow up withthem after. Noted raspy voice for the past few weeks. Feels as though there is a lump in her voice.Protonix 40 mg BID helping minimally for her reflux, feels as though her sx are significantly getting worse. Having one episode of emesis daily. On Miralax PRN for her constipation with relief. Denies changes in bowel habits, abd pain, fevers, bloating/gas. EGD 09/2021 A. Duodenum, biopsy: - Duodenal mucosa with no histopathologic abnormality. B. Stomach, biopsy: - Helicobacter pylori gastritis with acute and chronic inflammation. - The organisms are identified by Helicobacter pylori immunohistochemistry. C. Esophagus, biopsy: - Squamoglandular junction mucosa with intestinal metaplasia and acute and chronic inflammation. - There is no evidence of dysplasia. GES, HIDA 2020 both negative Component Latest Ref Rng & Units 02/27/2022 WBC 3.70 - 11.00 k/uL 11.98 (H) RBC 3.90 - 5.20 m/uL 4.98 Hemoglobin 11.5 - 15.5 g/dL 14.1 Hematocrit 36.0 - 46.0 % 44.5 MCV 80.0 - 100.0 fL 89.4 MCH 26.0 - 34.0 pg 28.3 MCHC 30.5 - 36.0 g/dL 31.7 RDW-CV 11.5 - 15.0 % 14.3 Platelet Count 150 - 400 k/uL 351 MPV 9.0 - 12.7 fL 12.5 Neut% % 65.5 Abs Neut (ANC) 1.45 - 7.50 k/uL 7.83 (H) Lymph% % 24.0 Abs Lymph 1.00 - 4.00 k/uL 2.88 Petroleum% % 7.3 Abs Petroleum <0.87 k/uL 0.88 (H) Eosin% % 2.4 Abs Eosin <0.46 k/uL 0.29 Baso% % 0.5 Abs Baso <0.11 k/uL 0.06 Immature Gran % % 0.3 IMMATURE GRANS (ABS) <0.10 k/uL 0.04 NRBC /100 WBC 0.0 Absolute nRBC <0.01 k/uL <0.01 DTYPE Auto Glucose 74 - 99 mg/dL 95 BUN 7 - 21 mg/dL 13 Creatinine 0.58 - 0.96 mg/dL 0.79 Sodium 136 - 144 mmol/L 139 Potassium 3.7 - 5.1 mmol/L 4.0 Chloride 97 - 105 mmol/L 103 CO2 22 - 30 mmol/L 24 Anion Gap 9 - 18 mmol/L 12 Calcium 8.5 - 10.2 mg/dL 9.7 eGFR >=60 mL/min/1.73m 90 Magnesium 1.7 - 2.3 mg/dL 2.1 OV 09/2021 Jane Steinberg is a 50 year old female PMHx positive for anorexia nervosa/bulimia (s/p treatment), uterine CA (s/p hysterectomy 2005), anxiety, asthma, Duggan's, COPD, GERD, here today for Acid reflux (Abdominal pain. XR 06/25/21 H pylori 06/28/21). Seen last in GI office for chronic RUQ pain, B arrett's confirmed on EGD 02/2020. H pylori stool, KUB were both negative 06/2021. Has received GES, HIDA in the past for RUQ pain which were unremarkable. Tried switching from Protonix to Nexium with returning symptoms so she started back on Protonix 40 mg BID. Started having mid-esophageal dysphagia for the past day with solids and liquids. Some mild persistent RUQ pain. Taking Miralax daily with good relief in bowel movements, no blood in stools. Denies NSAID usage. Current Outpatient Medications Medication Sig doxycycline (VIBRA-TABS) 100 mg tablet MUCUS RELIEF ER 600 mg 12 hr tablet Take 1,200 mg by mouth twice daily. predniSONE (DELTASONE) 10 mg tablet Take 4 tabs daily for 3 days, then 2 tabs daily for 3 days, then 1 tab daily for 3 days with food. levoFLOXacin (LEVAQUIN) 750 mg tablet Take 1 tablet by mouth once daily for 7 days. amitriptyline (ELAVIL) 100 mg tablet Take 1 tablet by mouth daily at bedtime. montelukast (SINGULAIR) 10 mg tablet Take 1 tablet by mouth daily at bedtime. ibuprofen (MOTRIN) 800 mg tablet Take 1 tablet by mouth every 8 hours as needed for pain. begnfpwpikq-osrydkjdp-rckblgfi (TRELEGY ELLIPTA) 200-62.5-25 mcg inhalation powder Inhale as instructed. aspirin, enteric coated (ASPIR-81) 81 mg EC tablet Take 1 tablet by mouth once daily. albuterol HFA (VENTOLIN HFA) 90 mcg/actuation inhaler Inhale 2 Puffs as instructed every 4 hours asneeded for wheezing/shortness of breath. L. acidophilus-L. rhamnosus 15 billion cell cap Take 1 capsule by mouth once daily. FLORAJEN WOMEN.If on antibiotic, take at least 1-2 hours before or after antibiotic. KEEP REFRIGERATED ergocalciferol 50,000 unit capsule (VITAMIN D2, DRISDOL) Take 1 capsule by mouth one time a week. albuterol (PROVENTIL) 2.5 mg /3 mL (0.083 %) nebulizer solution Use 3 mL via nebulizer every 6 hours as needed. PHENYLephrine-cocoa butter (PREPARATION H,PE,CB,) 0.25-88.44 % supp 1 Suppository by RECTAL route once daily. (Patient taking differently: 1 Suppository by RECTAL route as needed.) COMPACT SPACE CHAMBER as directed. ipratropium-albuterol (DUONEB) 0.5 mg-3 mg(2.5 mg base)/3 mL nebu Inhale 3 mL as instructed every 4hours as needed. PULSE OXIMETER CONTEC 1 Each as needed. Comp Stocking,Knee,Regular,Med misc 2 Each once daily. loratadine (CLARITIN) 10 mg tablet Take 1 tablet by mouth once daily. fluticasone (FLONASE) 50 mcg/actuation nasal spray Use 2 Sprays in each nostril once daily. Rinse mouth after use. pantoprazole DR (PROTONIX) 40 mg tablet Take 1 tablet by mouth twice daily. 30 minutes before meal. zolpidem (AMBIEN) 5 mg tablet Take 1 tablet by mouth at bedtime as needed for sedation for up to 30days. Current Facility-Administered Medications Medication Dose Route Frequency perflutren lipid microspheres 1.3 mL in NaCl (PF) 0.9% 10 mL injection (DEFINITY) INTRAVENOUS DIRECTED PRN sodium chloride 0.9 % (flush) 10 mL (BD POSIFLUSH) 10 mL INTRAVENOUS DIRECTED PRN ALLERGIES Allergen Reactions Penicillins Anaphylaxis Social History Tobacco Use Smoking status: Former Packs/day: 0.25 Years: 29.00 Pack years: 7.25 Types: Cigarettes Start date: 11/17/1986 Quit date: 11/23/2021 Years since quittin.7 Smokeless tobacco: Never Vaping Use Vaping Use: Never used Substance Use Topics Alcohol use: Not Currently Comment: Rarely Drug use: No PAST MEDICAL HISTORY Diagnosis Date Anorexia nervosa 06/11/2006 Stable; treated in past Anxiety Asthma Duggan's esophagus Bulimia nervosa 06/11/2006 Stable, treated in past Chest pain Chronic obstructive pulmonary disease (COPD) (HCC) Emphysema lung (HCC) GERD (gastroesophageal reflux disease) H. pylori infection cronic HISTORY OF CANCER OF UTERUS 06/11/20062003, Hysterectomy - complete Internal hemorrhoids Lung disease Migraines Snoring Tobacco use disorder 06/11/2006 Quit 09/2015. Unspecified asthma(493.90) Childhood diagnosis. PAST SURGICAL HISTORY Procedure Laterality Date APPENDECTOMY 1998 COLONOSCOPY FLX DX W/COLLJ SPEC WHEN PFRMD 02/13/2020 Colonoscopy EGD W/O [facility] SPEC VARICIES INJ 10/06/2021 ESOPHAGOGASTRODUODENOSCOPY TRANSORAL DIAGNOSTIC 03/13/2017 EGD ESOPHAGOGASTRODUODENOSCOPY TRANSORAL DIAGNOSTIC 02/13/2020 EGD GASTRIC EMPTYING IMAG STUDY 02/17/2021 PAST SURGICAL HISTORY OF 2004 Lymph Node Bx 1999 TOTAL ABDOMINAL HYSTERECT W/WO RMVL TUBE OVARY 2005 and BSO - pelvic pain/benign FAMILY HISTORY Problem Relation Age of Onset Hypertension Mother Heart Mother Eczema Mother other (AAA) Mother other (Fibromyalgia) Mother Alcohol/Drug Father Alcohol Cancer Father lung Colon Cancer Father Hypertension Sister Asthma Sister other (Migraines) Sister other (Gout) Sister other (Fibromyalgia) Sister Breast Cancer Maternal Aunt 2 maternal aunts. other (MICRO PHOTOGRAPHER cancer) No Family History REVIEW OF SYSTEMS Review of Systems Constitutional: Positive for appetite change. HENT: Positive for trouble swallowing and voice change. Respiratory: Positive for shortness of breath and wheezing. Gastrointestinal: Positive for vomiting. Heartburn All other systems reviewed and are negative. PHYSICAL EXAM BP 118/74 Pulse 99 Ht 5' 2 (1.58m) Wt 130 lb 14.4 oz (59.4kg) BMI 23.94 kg/(m^2). Physical Exam Constitutional: General: She is not in acute distress. Appearance: Normal appearance. She is normal weight. She is not ill-appearing, toxic-appearing or diaphoretic. HENT: Head: Normocephalic and atraumatic. Nose: Nose normal. Eyes: General: No scleral icterus. Right eye: No discharge. Left eye: No discharge. Extraocular Movements: Extraocular movements intact. Conjunctiva/sclera: Conjunctivae normal. Pupils: Pupils are equal, round, and reactive to light. Cardiovascular: Rate and Rhythm: Normal rate and regular rhythm. Pulses: Normal pulses. Heart sounds: Normal heart sounds. No murmur heard. No friction rub. No gallop. Pulmonary: Effort: No respiratory distress. Breath sounds: No stridor. Rales present. No wheezing or rhonchi. Chest: Chest wall: No tenderness. Abdominal: General: Abdomen is flat. Bowel sounds are normal. There is no distension. Palpations: Abdomen is soft. There is no mass. Tenderness: There is no abdominal tenderness. There is no right CVA tenderness, left CVA tenderness, guarding or rebound. Hernia: No hernia is present. Musculoskeletal: General: Normal range of motion. Cervical back: Normal range of motion and neck supple. Skin: General: Skin is warm and dry. Neurological: General: No focal deficit present. Mental Status: She is alert and oriented to person, place, and time. Psychiatric: Mood and Affect: Mood normal. Behavior: Behavior normal. Assessment/Plan (K29.50, B96.81) Chronic Helicobacter pylori gastritis (primary encounter diagnosis) (K22.70) 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 (K59.09) Other constipation 1. Chronic Helicobacter pylori gastritis - EGD DIAGNOSTIC; Future - lansoprazole (PREVACID) 30 mg capsule; Take 1 capsule by mouth twice daily. Take on empty stomachat least 30 minutes before eating. Dispense: 180 capsule; Refill: 3 - promethazine (PHENERGAN) 25 mg tablet; Take 1 tablet by mouth every 8 hours as needed (for nausea). Dispense: 30 tablet; Refill: 1 - Stop Protonix, start Prevacid BID - Start Phenergan PRN - Pt reports she has been compliant with all prescribed antibiotic regimens. Regimens attempted in the past included quadruple, triple, Doxy containing, Levaquin containing. Levaquin tx confirmed eradication 12/2020. Pt was positive again 09/2021 and rifabutin tx provided without eradication. Pylera provided to pt by ID without success. - Advised repeat EGD w/ H. Pylori culture to help determine antibiotic susceptibility - Follow gastritis precautions, avoid NSAIDs 2. 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 - lansoprazole (PREVACID) 30 mg capsule; Take 1 capsule by mouth twice daily. Take on empty stomachat least 30 minutes before eating. Dispense: 180 capsule; Refill: 3 3. Other constipation - Advised taking Miralax full cap daily as this works well for her to prevent constipation Recommended to please call office/go to ER if fever, chills, chest pain, SOB, diarrhea, nausea, emesis, worsening abdominal pain, dehydration occurs I spent a total of 20 minutes on the date of the service which included preparing to see the patient, [id number] patient care, completing clinical documentation, obtaining and/or reviewing separately obtained history, performing a medically appropriate examination, counseling and educating the pat ient/family/caregiver, ordering medications, tests, or procedures, communicating with other HCPs (not separately reported), independently interpreting results (not separately reported), communicatingresults to the patient/family/caregiver, and care coordination (not separately reported). Roselyn Tobar PA-C August 16, 2022 8:40 AM documented in this encounterCos[facility]02-06-2023 Miscellaneous Notes* Telephone Encounter - Danielle Shabazz MA - 08/14/2022 9:21 AM EST Patient left a voicemail to see if we had any appointment cancellations. She is currently scheduledon 09/18/22 with Roselyn. documented in this encounterCoshocton [facility]02-02-2023 History of Present illness Narrative* Mikael Stubbs RT(R) - 08/10/2022 8:40 AM EST Radiology Service Progress Note PATIENT NAME: Jane Steinberg DATE OF SERVICE: August 10, 2022 TIME: 8:31 AM PATIENT IDENTITY VERIFICATION COMPLETED USING TWO (2) IDENTIFIERS: Name and Date of confirmedby patient verbally. FALL SCREENING: Has the patient had 2 falls in the last year or 1 fall with injury or currently using an Ambulatory Assistive Device (Walker, Cane, Wheelchair, Crutches, etc.)? No PATIENT GENDER DATA: Female. status: : No status: NO. PATIENT RELEVANT IMPLANT DATA REVIEWED: Not Applicable RADIOLOGY DEPARTMENT: General X-ray: Exam(s) Completed: Chest X-Ray PERIPHERAL IV DATA: Not applicable SIGNED BY: RT Trisha(R) August 10, 2022 8:31 AM documented in this encounterCoshoct[facility]02-02-2023 History of Present illness Narrative* Laura Hernandez APRN.KACY - 08/10/2022 8:01 AM EST CC: Patient presents with: Cough: Cough, vomitting when awaking x 1 week HPI Jane Steinberg is a 51 year old female who presents today for cough and woke up vomiting a few days ago. Reports increased shortness of breath, wheezing, moist cough without any sputum production, fatigued, increase in heart burn with burning all the way into her esophagus, generalized weakness, and decreased appetite. Has vomited 3 times. Twice from coughing so hard and the 3rd time when she woke up in the morning. Denies fever, chills, sick exposures, nausea, diarrhea, or abdominal pain. On pylera 4 times a day for reflux issues along with high dose pantoprazole twice daily. Sees a GI specialist in [place] but not been seen recently. Chronic migraines: Occurs average of every other day, some improvement with previous increase in amitriptyline. Takes ibuprofen and tylenol which is not always helpful. Denies any numbness, tingling,vision changes, dizziness or syncope. REVIEW OF SYSTEMS General: no fevers, no chills, no night sweats, no recurrent infections, and no significant changesin weight HEENT: no changes in hearing, no visual changes, no nose bleeds, no sinus or nasal problems Respiratory: See HPI Cardiovascular: no chest pain, no chest pressure, no palpitations, and no swelling GI: See HPI : No history of dysuria, frequency or incontinence Neurologic: No weakness, numbness, tingling, dizziness, memory loss, syncope. PAST MEDICAL HISTORY Diagnosis Date Anorexia nervosa 06/11/2006 Stable; treated in past Anxiety Asthma Duggan's esophagus Bulimia nervosa 06/11/2006 Stable, treated in past Chest pain Chronic obstructive pulmonary disease (COPD) (HCC) Emphysema lung (HCC) Emphysema lung (HCC) GERD (gastroesophageal reflux disease) H. pylori infection cronic HISTORY OF CANCER OF UTERUS 06/11/20062003, Hysterectomy - complete Internal hemorrhoids Lung disease Migraines Snoring Tobacco use disorder 06/11/2006 Quit 09/2015. Unspecified asthma(493.90) Childhood diagnosis. PAST SURGICAL HISTORY Procedure Laterality Date APPENDECTOMY 1998 APPENDECTOMY COLONOSCOPY FLX DX W/COLLJ SPEC WHEN PFRMD 02/13/2020 Colonoscopy ESOPHAGOGASTRODUODENOSCOPY TRANSORAL DIAGNOSTIC 03/13/2017 EGD ESOPHAGOGASTRODUODENOSCOPY TRANSORAL DIAGNOSTIC 02/13/2020 EGD GASTRIC EMPTYING IMAG STUDY 02/17/2021 PAST SURGICAL HISTORY OF 2004 Lymph Node Bx 1999 TOTAL ABDOMINAL HYSTERECT W/WO RMVL TUBE OVARY 2004 and BSO - pelvic pain/benign VAGINAL HYSTERECTOMY ALLERGIES Penicillins MEDICATIONS pantoprazole DR (PROTONIX) 40 mg tablet^Take 1 tablet by mouth twice daily. 30 minutes before meal.^Disp: 180 tablet^Rfl: 3 montelukast (SINGULAIR) 10 mg tablet^Take 1 tablet by mouth daily at bedtime.^Disp: 90 tablet^Rfl: 3 ibuprofen (MOTRIN) 800 mg tablet^Take 1 tablet by mouth every 8 hours as needed for pain.^Disp: 60 tablet^Rfl: 1 amitriptyline (ELAVIL) 75 mg tablet^Take 1 tablet by mouth daily at bedtime.^Disp: 90 tablet^Rfl: 3 guaiFENesin 1,200 mg Ta12^Take 1 tablet by mouth twice daily.^Disp: 180 tablet^Rfl: 1 apgywdqvkgc-mnqkgjyxp-cbgdhnig (TRELEGY ELLIPTA) 200-62.5-25 mcg inhalation powder^Inhale as instructed.^Disp: ^Rfl: aspirin, enteric coated (ASPIR-81) 81 mg EC tablet^Take 1 tablet by mouth once daily.^Disp: 90 tablet^Rfl: 2 zolpidem (AMBIEN) 5 mg tablet^Take 1 tablet by mouth at bedtime as needed for sedation for up to 30days.^Disp: 15 tablet^Rfl: 1 albuterol HFA (VENTOLIN HFA) 90 mcg/actuation inhaler^Inhale 2 Puffs as instructed every 4 hours asneeded for wheezing/shortness of breath.^Disp: 18 g^Rfl: 2 L. acidophilus-L. rhamnosus 15 billion cell cap^Take 1 capsule by mouth once daily. FLORAJEN WOMEN.If on antibiotic, take at least 1-2 hours before or after antibiotic. KEEP REFRIGERATED^Disp: 30 capsule^Rfl: 11 ergocalciferol 50,000 unit capsule (VITAMIN D2, DRISDOL)^Take 1 capsule by mouth one time a week.^Disp: 4 capsule^Rfl: 1 albuterol (PROVENTIL) 2.5 mg /3 mL (0.083 %) nebulizer solution^Use 3 mL via nebulizer every 6 hours as needed.^Disp: 180 mL^Rfl: 3 PHENYLephrine-cocoa butter (PREPARATION H,PE,CB,) 0.25-88.44 % supp^1 Suppository by RECTAL route once daily.^Disp: 30 Suppository^Rfl: 2 (Patient taking differently: 1 Suppository by RECTAL route asneeded. ) COMPACT SPACE CHAMBER^as directed.^Disp: ^Rfl: ipratropium-albuterol (DUONEB) 0.5 mg-3 mg(2.5 mg base)/3 mL nebu^Inhale 3 mL as instructed every 4hours as needed.^Disp: 20 Vial^Rfl: 0 PULSE OXIMETER CONTEC^1 Each as needed.^Disp: 1 Each^Rfl: 0 Comp Stocking,Knee,Regular,Med misc^2 Each once daily.^Disp: 2 Each^Rfl: 0 loratadine (CLARITIN) 10 mg tablet^Take 1 tablet by mouth once daily.^Disp: 10 tablet^Rfl: 0 fluticasone (FLONASE) 50 mcg/actuation nasal spray^Use 2 Sprays in each nostril once daily. Rinse mouth after use.^Disp: 1 Bottle^Rfl: 11 FAMILY HISTORY Problem Relation Age of Onset Hypertension Mother Heart Mother Eczema Mother other (AAA) Mother other (Fibromyalgia) Mother Alcohol/Drug Father Alcohol Cancer Father lung Colon Cancer Father Hypertension Sister Asthma Sister other (Migraines) Sister other (Gout) Sister other (Fibromyalgia) Sister Breast Cancer Maternal Aunt 2 maternal aunts. other (MICRO PHOTOGRAPHER cancer) No Family History Social History Tobacco Use Smoking status: Former Packs/day: 0.25 Years: 29.00 Pack years: 7.25 Types: Cigarettes Start date: 11/17/1986 Quit date: 11/23/2021 Years since quittin.7 Smokeless tobacco: Never Vaping Use Vaping Use: Never used Substance Use Topics Alcohol use: Not Currently Comment: Rarely Drug use: No PHYSICAL EXAM BP 122/72 Pulse 76 Temp 36.3 C (97.3 F) (Temporal) Resp 16 Wt 58.5 kg (129 lb) SpO2 99% BMI 23.59 kg/m General Appearance: well appearing, in no acute distress, alert Skin: Skin color, texture, turgor normal for age; Eyes: PERRLA, EOM's intact, conjunctiva pink and moist, no icterus, sclera white, non-injected Neck: Thyroid normal size and symmetric without palpable nodules, Neck supple, No adenopathy Lymph nodes: No cervical lymphadenopathy and No supraclavicular lymphadenopathy Lungs: Posterior bilateral wheezing and coarse lung sounds Heart: RRR without murmur, gallop, or rubs. No ectopy Extremities: No deformities, edema, skin discoloration, clubbing or cyanosis. Good capillary refill. Neurological: Gait normal. Reflexes normal and symmetric. Sensation grossly intact., speech normal,mental status intact, muscle tone normal, muscle strength normal Health maintenance reviewed with patient: HEPATITIS B(1 of 3 - 3-dose series) Never done DTAP,TDAP,TD(6 - Tdap) due on 07/31/2006 COVID-19 VACCINE(3 - Booster for Pfizer series) due on 11/21/2021 INFLUENZA(1) due on 03/09/2022 PAP TESTING due on 01/12/2023 SHINGRIX VACCINE(1 of 2) due on 01/12/2023 PNEUMOCOCCAL(2 - PCV) due on 01/12/2023 MAMMOGRAM due on 11/18/2022 ANNUAL PCP TEAM CHRONIC DISEASE VISIT due on 07/13/2023 DIABETES SCREEN due on 02/27/2025 HPV TESTING due on 10/22/2025 LIPID SCREEN due on 11/18/2026 COLORECTAL CANCER SCREENING due on 02/12/2030 ALPHA-1 ANTITRYPSIN DEFICIENCY SCREENING Completed SPIROMETRY Completed HEPATITIS C SCREENING Completed HIV SCREENING Completed DATA REVIEWED: No new labs ASSESSMENT/PLAN: 1. COPD with exacerbation (HCC) - ICD9: 491.21, ICD10: J44.1 (primary diagnosis) - patient declined albuterol nebulizer treatment in office. - per patient has follow up appointmentwith pulmonology scheduled - with the increased shortness of breath, moist cough, and abnormal lung sounds will go ahead and start a prednisone taper and levaquin - PREDNISONE 10 MG TABLET - LEVOFLOXACIN 750 MG TABLET - XR CHEST 2V FRONTAL/LAT - go to Er for any increased shortness of breath or wheezing, or for any chest pain, palpitations or other urgent concerns - follow up next week 2. Wheezing - ICD9: 786.07, ICD10: R06.2 As above - PREDNISONE 10 MG TABLET - LEVOFLOXACIN 750 MG TABLET - XR CHEST 2V FRONTAL/LAT 3. Shortness of breath - ICD9: 786.05, ICD10: R06.02 - see #1 - PREDNISONE 10 MG TABLET - LEVOFLOXACIN 750 MG TABLET - XR CHEST 2V FRONTAL/LAT 4. Other fatigue - ICD9: 780.79, ICD10: R53.83 See #1 5. Headaches - ICD9: 784.0, ICD10: R51.9 - unable to fully discuss in appointment today. Since amitriptyline was helpful, increased dose to 100mg before bed. Will have her follow up next week to discuss other preventative options and further evaluate Prescription instructions reviewed with patient as applicable. Potential red flag symptoms discussed with the patient. Reviewed appropriate action plan to take if red flag symptoms occur. Patient agreeable to treatment plan. Laura Hernandez APRN.CNP documented in this encounterCos[facility]01-05-2023 History of Present illness Narrative* Laura Hernandez, HOUSESMITH.KACY - 07/13/2022 8:03 AM EST CC: Patient presents with: Recheck: Follow up, pain, headaches daily HPI Jane Steinberg is a 51 year old female who presents today for follow up on COPD, chronic pain, and fibromyalgia. COPD: Patient feels she is at baseline with wheezing and needing her albuterol inhaler every 5-6 hours. Sees pulmonology for this and has a follow up appointment next month. Tries to limit smoking to5-6 a day. Denies increase in chronic shortness of breath or wheezing. Has had a persistent dry cough for about 2 weeks. Denies sinus drainage, fever, chills, sick contacts, chest pain, or ear pain. Has issues with generalized chronic pain that she describes as it hurst and is like a ping pong ball that bounces everywhere at different times. States she is unable to sleep well because of the pain which is making her tired throughout the day. Has a history of fibromyalgia which she reports notbeing treated for this for years. GERD: Improved with pantoprazole twice daily. This improves her heartburn greatly, but if she decreases dose then the heartburn is not tolerable. Denies nausea, vomiting, difficulty swallowing, or abdominal pain. REVIEW OF SYSTEMS General: no fevers, no chills, no night sweats, no recurrent infections, no change in appetite, no change in energy, and no significant changes in weight Respiratory: see HPI Cardiovascular: no chest pain, no chest pressure, no palpitations, and no swelling GI: No nausea, vomiting, or diarrhea PAST MEDICAL HISTORY Diagnosis Date Anorexia nervosa 06/11/2006 Stable; treated in past Anxiety Asthma Duggan's esophagus Bulimia nervosa 06/11/2006 Stable, treated in past Chest pain Chronic obstructive pulmonary disease (COPD) (HCC) Emphysema lung (HCC) Emphysema lung (HCC) GERD (gastroesophageal reflux disease) H. pylori infection cronic HISTORY OF CANCER OF UTERUS 06/11/2006 2004, Hysterectomy - complete Internal hemorrhoids Lung disease Migraines Snoring Tobacco use disorder 06/11/2006 Quit 09/2015. Unspecified asthma(493.90) Childhood diagnosis. PAST SURGICAL HISTORY Procedure Laterality Date APPENDECTOMY 1998 APPENDECTOMY COLONOSCOPY FLX DX W/COLLJ SPEC WHEN PFRMD 02/13/2020 Colonoscopy ESOPHAGOGASTRODUODENOSCOPY TRANSORAL DIAGNOSTIC 03/13/2017 EGD ESOPHAGOGASTRODUODENOSCOPY TRANSORAL DIAGNOSTIC 02/13/2020 EGD GASTRIC EMPTYING IMAG STUDY 02/17/2021 PAST SURGICAL HISTORY OF 2004 Lymph Node Bx 1999 TOTAL ABDOMINAL HYSTERECT W/WO RMVL TUBE OVARY 2004 and BSO - pelvic pain/benign VAGINAL HYSTERECTOMY ALLERGIES Penicillins MEDICATIONS jfnyjqzdfap-eoghixiyq-qcbeyqhb (TRELEGY ELLIPTA) 200-62.5-25 mcg inhalation powder^Inhale as instructed.^Disp: ^Rfl: amitriptyline (ELAVIL) 50 mg tablet^Take 1 tablet by mouth daily at bedtime.^Disp: 90 tablet^Rfl: 1 aspirin, enteric coated (ASPIR-81) 81 mg EC tablet^Take 1 tablet by mouth once daily.^Disp: 90 tablet^Rfl: 2 ibuprofen (MOTRIN) 800 mg tablet^Take 1 tablet by mouth every 8 hours as needed for pain.^Disp: 60 tablet^Rfl: [address] (PROTONIX) 40 mg tablet^Take 1 tablet by mouth twice daily. 30 minutes before meal.^Disp: 60 tablet^Rfl: 5 zolpidem (AMBIEN) 5 mg tablet^Take 1 tablet by mouth at bedtime as needed for sedation for up to 30days.^Disp: 15 tablet^Rfl: 1 albuterol HFA (VENTOLIN HFA) 90 mcg/actuation inhaler^Inhale 2 Puffs as instructed every 4 hours asneeded for wheezing/shortness of breath.^Disp: 18 g^Rfl: 2 montelukast (SINGULAIR) 10 mg tablet^Take 1 tablet by mouth daily at bedtime.^Disp: 30 tablet^Rfl: 5 L. acidophilus-L. rhamnosus 15 billion cell cap^Take 1 capsule by mouth once daily. FLORAJEN WOMEN.If on antibiotic, take at least 1-2 hours before or after antibiotic. KEEP REFRIGERATED^Disp: 30 capsule^Rfl: 11 ergocalciferol 50,000 unit capsule (VITAMIN D2, DRISDOL)^Take 1 capsule by mouth one time a week.^Disp: 4 capsule^Rfl: 1 albuterol (PROVENTIL) 2.5 mg /3 mL (0.083 %) nebulizer solution^Use 3 mL via nebulizer every 6 hours as needed.^Disp: 180 mL^Rfl: 3 PHENYLephrine-cocoa butter (PREPARATION H,PE,CB,) 0.25-88.44 % supp^1 Suppository by RECTAL route once daily.^Disp: 30 Suppository^Rfl: 2 (Patient taking differently: 1 Suppository by RECTAL route asneeded. ) COMPACT SPACE CHAMBER^as directed.^Disp: ^Rfl: ipratropium-albuterol (DUONEB) 0.5 mg-3 mg(2.5 mg base)/3 mL nebu^Inhale 3 mL as instructed every 4hours as needed.^Disp: 20 Vial^Rfl: 0 PULSE OXIMETER CONTEC^1 Each as needed.^Disp: 1 Each^Rfl: 0 Comp Stocking,Knee,Regular,Med misc^2 Each once daily.^Disp: 2 Each^Rfl: 0 loratadine (CLARITIN) 10 mg tablet^Take 1 tablet by mouth once daily.^Disp: 10 tablet^Rfl: 0 fluticasone (FLONASE) 50 mcg/actuation nasal spray^Use 2 Sprays in each nostril once daily. Rinse mouth after use.^Disp: 1 Bottle^Rfl: 11 FAMILY HISTORY Problem Relation Age of Onset Hypertension Mother Heart Mother Eczema Mother other (AAA) Mother other (Fibromyalgia) Mother Alcohol/Drug Father Alcohol Cancer Father lung Colon Cancer Father Hypertension Sister Asthma Sister other (Migraines) Sister other (Gout) Sister other (Fibromyalgia) Sister Breast Cancer Maternal Aunt 2 maternal aunts. other (MICRO PHOTOGRAPHER cancer) No Family History Social History Tobacco Use Smoking status: Former Packs/day: 0.25 Years: 29.00 Pack years: 7.25 Types: Cigarettes Start date: 11/17/1986 Quit date: 11/23/2021 Years since quittin.6 Smokeless tobacco: Never Vaping Use Vaping Use: Never used Substance Use Topics Alcohol use: Not Currently Comment: Rarely Drug use: No PHYSICAL EXAM There were no vitals taken for this visit. General Appearance: well appearing, in no acute distress, alert Skin: Skin color, texture, turgor normal for age; Eyes: conjunctiva pink and moist, no icterus, sclera white, non-injected Lungs: expiratory and inspiratory wheezing noted throughout bilaterally and very tight Heart: RRR without murmur, gallop, or rubs. No ectopy Health maintenance reviewed with patient: HEPATITIS B(1 of 3 - 3-dose series) Never done DTAP,TDAP,TD(6 - Tdap) due on 07/31/2006 COVID-19 VACCINE(3 - Booster for Pfizer series) due on 11/21/2021 INFLUENZA(1) due on 03/09/2022 PAP TESTING due on 01/12/2023 SHINGRIX VACCINE(1 of 2) due on 01/12/2023 PNEUMOCOCCAL(2 - PCV) due on 01/12/2023 MAMMOGRAM due on 11/18/2022 ANNUAL PCP TEAM CHRONIC DISEASE VISIT due on 06/07/2023 DIABETES SCREEN due on 02/27/2025 HPV TESTING due on 10/22/2025 LIPID SCREEN due on 11/18/2026 COLORECTAL CANCER SCREENING due on 02/12/2030 ALPHA-1 ANTITRYPSIN DEFICIENCY SCREENING Completed SPIROMETRY Completed HEPATITIS C SCREENING Completed HIV SCREENING Completed DATA REVIEWED: No new labs ASSESSMENT/PLAN: 1. Chronic obstructive pulmonary disease, unspecified COPD type (HCC) - ICD9: 496, ICD10: J44.9 (primary diagnosis) With the large amount of wheezing and increased cough, will put on steroid taper and also start on mucinex. 2. Chronic pain syndrome - ICD9: 338.4, ICD10: G89.4 - probable related to fibromyalgia so increasing amitriptyline. If no improvement will have to weanoff and consider other treatment. Also refilling ibuprofen as requested - IBUPROFEN 800 MG TABLET 3. Fibromyalgia - ICD9: 729.1, ICD10: M79.7 As above 4. GERD without esophagitis - ICD9: 530.81, ICD10: K21.9 - Discussed lifestyle modifications including losing weight, limiting caffeine, no meals three hours before sleep, and head of bed elevation - Continue treatment with Pantoprazole as ordered Prescription instructions reviewed with patient as applicable. Potential red flag symptoms discussed with the patient. Reviewed appropriate action plan to take if red flag symptoms occur. Patient agreeable to treatment plan. Laura Hernandez APRN.CNP documented in this encounterCosho[facility]12-01-2022 Miscellaneous Notes* Telephone Encounter - Kymberly Myles - 06/08/2022 8:37 AM EST Contacted patient scheduled her echo on 06-13-2022 Kymberly Myles * Telephone Encounter - Latasha Salamanca Ma - 06/07/2022 6:27 PM EST Patient notified, please assist in scheduling. * Telephone Encounter - Laura Hernandez APRN.CNP - 06/07/2022 5:14 PM EST Please let patient know chest xray does not show any infection or abnormality. I am ordering an echocardiogram which is an US of the heart to evaluate further for this shortness of breath and EKG indicated possible atrial enlargements which may not be accurate since the chest xray does not indicatethis. Thank you Laura Hernandez APRN.CNP documented in this encounterCoshocton [facility]11-30-2022 History of Present illness Narrative* Mikael Stubbs RT(R) - 06/07/2022 4:10 PM EST Radiology Service Progress Note PATIENT NAME: Jane Steinberg DATE OF SERVICE: June 07, 2022 TIME: 4:08 PM PATIENT IDENTITY VERIFICATION COMPLETED USING TWO (2) IDENTIFIERS: Name and Date of confirmedby patient verbally. FALL SCREENING: Has the patient had 2 falls in the last year or 1 fall with injury or currently using an Ambulatory Assistive Device (Walker, Cane, Wheelchair, Crutches, etc.)? No PATIENT GENDER DATA: Female. status: : No status: NO. PATIENT RELEVANT IMPLANT DATA REVIEWED: Not Applicable RADIOLOGY DEPARTMENT: General X-ray: Exam(s) Completed: Chest X-Ray PERIPHERAL IV DATA: Not applicable SIGNED BY: RT Trisha(Lashae) June 07, 2022 4:13 PM documented in this encounterCoshocton [facility] Center11-30-2022 Instructions* Patient Instructions* Laura Hernandez APRN.CNP - 06/07/2022 3:56 PM EST Call rug sample beveler for further evaluation. documented in this encounterCoshocton [facility]11-30-2022 History of Present illness Narrative* Laura Hernandez APRN.CNP - 06/07/2022 3:11 PM EST CC: Patient presents with: Recheck: 1 week follow up. pneumonia HPI Jane Steinberg is a 51 year old female who presents today for pneumonia. Was seen 1 week ago forincreased cough, increased mucous production wheezing and shortness of breath. CXR showed possible beginning of pneumonia. With history of COPD was given 7 days of levaquin and steroid taper. Finished Levaquin yesterday and is still on taper of prednisone. Denies any improvement, still with shortness of breath, chest jones at all times to sternum, cough is getting worse and is nonproductive, and has decreased energy, Is needing her albuterol inhaler every 3 hours. Denies fever, chills, dizziness, or syncope. Last saw pulmonology 1 month ago and changed to trelegy inhaler at that time. REVIEW OF SYSTEMS General: no fevers, no chills, no night sweats, no recurrent infections, no change in appetite, andno significant changes in weight Respiratory: See HPI Cardiovascular: no chest pressure, no palpitations, and no swelling GI: No nausea, vomiting, or diarrhea Neurologic: No headache, weakness, numbness, tingling, neck stiffness, tremor, vertigo, dizziness, memory loss, syncope. PAST MEDICAL HISTORY Diagnosis Date Anorexia nervosa 06/11/2006 Stable; treated in past Anxiety Asthma Dugagn's esophagus Bulimia nervosa 06/11/2006 Stable, treated in past Chest pain Chronic obstructive pulmonary disease (COPD) (HCC) Emphysema lung (HCC) Emphysema lung (HCC) GERD (gastroesophageal reflux disease) H. pylori infection cronic HISTORY OF CANCER OF UTERUS 06/11/20062003, Hysterectomy - complete Internal hemorrhoids Lung disease Migraines Snoring Tobacco use disorder 06/11/2006 Quit 09/2015. Unspecified asthma(493.90) Childhood diagnosis. PAST SURGICAL HISTORY Procedure Laterality Date APPENDECTOMY 1998 APPENDECTOMY COLONOSCOPY FLX DX W/COLLJ SPEC WHEN PFRMD 02/13/2020 Colonoscopy ESOPHAGOGASTRODUODENOSCOPY TRANSORAL DIAGNOSTIC 03/13/2017 EGD ESOPHAGOGASTRODUODENOSCOPY TRANSORAL DIAGNOSTIC 02/13/2020 EGD GASTRIC EMPTYING IMAG STUDY 02/17/2021 PAST SURGICAL HISTORY OF 2003 Lymph Node Bx 1999 TOTAL ABDOMINAL HYSTERECT W/WO RMVL TUBE OVARY 2004 and BSO - pelvic pain/benign VAGINAL HYSTERECTOMY ALLERGIES Penicillins MEDICATIONS predniSONE (DELTASONE) 10 mg tablet Take 4 tabs daily x 3 days, then 3 tabs x 3 days, 2 tabs x 3 days, then 1 tab x3 days with food. levoFLOXacin (LEVAQUIN) 750 mg tablet Take 1 tablet by mouth once daily for 7 days. amitriptyline (ELAVIL) 50 mg tablet Take 1 tablet by mouth daily at bedtime. lidocaine (LMX) 4 % cream Apply to affected area twice daily as needed. aspirin, enteric coated (ASPIR-81) 81 mg EC tablet Take 1 tablet by mouth once daily. ibuprofen (MOTRIN) 800 mg tablet Take 1 tablet by mouth every 8 hours as needed for pain. pantoprazole DR (PROTONIX) 40 mg tablet Take 1 tablet by mouth twice daily. 30 minutes before meal. zolpidem (AMBIEN) 5 mg tablet Take 1 tablet by mouth at bedtime as needed for sedation for up to 30days. albuterol HFA (VENTOLIN HFA) 90 mcg/actuation inhaler Inhale 2 Puffs as instructed every 4 hours asneeded for wheezing/shortness of breath. montelukast (SINGULAIR) 10 mg tablet Take 1 tablet by mouth daily at bedtime. L. acidophilus-L. rhamnosus 15 billion cell cap Take 1 capsule by mouth once daily. FLORAJEN WOMEN.If on antibiotic, take at least 1-2 hours before or after antibiotic. KEEP REFRIGERATED fluticasone-salmeterol (ADVAIR DISKUS) 500-50 mcg/dose dsdv Inhale 1 Puff as instructed twice daily. Rinse and gargle mouth with water after use. ergocalciferol 50,000 unit capsule (VITAMIN D2, DRISDOL) Take 1 capsule by mouth one time a week. albuterol (PROVENTIL) 2.5 mg /3 mL (0.083 %) nebulizer solution Use 3 mL via nebulizer every 6 hours as needed. PHENYLephrine-cocoa butter (PREPARATION H,PE,CB,) 0.25-88.44 % supp 1 Suppository by RECTAL route once daily. (Patient taking differently: 1 Suppository by RECTAL route as needed. ) dicyclomine (BENTYL) 10 mg capsule Take 1 capsule by mouth before meals and at bedtime. COMPACT SPACE CHAMBER as directed. ipratropium-albuterol (DUONEB) 0.5 mg-3 mg(2.5 mg base)/3 mL nebu Inhale 3 mL as instructed every 4hours as needed. PULSE OXIMETER CONTEC 1 Each as needed. Comp Stocking,Knee,Regular,Med misc 2 Each once daily. loratadine (CLARITIN) 10 mg tablet Take 1 tablet by mouth once daily. fluticasone (FLONASE) 50 mcg/actuation nasal spray Use 2 Sprays in each nostril once daily. Rinse mouth after use. FAMILY HISTORY Problem Relation Age of Onset Hypertension Mother Heart Mother Eczema Mother other (AAA) Mother other (Fibromyalgia) Mother Alcohol/Drug Father Alcohol Cancer Father lung Colon Cancer Father Hypertension Sister Asthma Sister other (Migraines) Sister other (Gout) Sister other (Fibromyalgia) Sister Breast Cancer Maternal Aunt 2 maternal aunts. other (MICRO PHOTOGRAPHER cancer) No Family History Social History Tobacco Use Smoking status: Former Packs/day: 0.25 Years: 29.00 Pack years: 7.25 Types: Cigarettes Start date: 11/17/1986 Quit date: 11/23/2021 Years since quittin.5 Smokeless tobacco: Never Vaping Use Vaping Use: Never used Substance Use Topics Alcohol use: Not Currently Comment: Rarely Drug use: No PHYSICAL EXAM BP 116/72 Pulse 93 Temp 36.4 C (97.5 F) (Temporal) Resp 16 SpO2 95% General Appearance: well appearing, in no acute distress, alert Skin: Skin color, texture, turgor normal for age; Eyes: conjunctiva pink and moist, no icterus, sclera white, non-injected Neck: Thyroid normal size and symmetric without palpable nodules, No adenopathy Lymph nodes: No cervical lymphadenopathy and No supraclavicular lymphadenopathy Lungs: Lungs diminished in the bases with expiratory wheezing. rhonchi, rales. Heart: RRR without murmur, gallop, or rubs. No ectopy Abdomen: Abdomen soft, non-tender. Bowel sounds normal. No masses, organomegaly Health maintenance reviewed with patient: HEPATITIS B(1 of 3 - 3-dose series) Never done COVID-19 VACCINE(3 - Booster for Pfizer series) due on 11/21/2021 INFLUENZA(1) due on 03/09/2022 DTAP,TDAP,TD(6 - Tdap) due on 06/25/2022 PAP TESTING due on 01/12/2023 SHINGRIX VACCINE(1 of 2) due on 01/12/2023 PNEUMOCOCCAL(2 - PCV) due on 01/12/2023 MAMMOGRAM due on 11/18/2022 ANNUAL PCP TEAM CHRONIC DISEASE VISIT due on 05/31/2023 DIABETES SCREEN due on 02/27/2025 HPV TESTING due on 10/22/2025 LIPID SCREEN due on 11/18/2026 COLORECTAL CANCER SCREENING due on 02/12/2030 ALPHA-1 ANTITRYPSIN DEFICIENCY SCREENING Completed SPIROMETRY Completed HEPATITIS C SCREENING Completed HIV SCREENING Completed DATA REVIEWED: Most recent imaging EKG Interpretation: RHYTHM: Normal sinus rhythm at 86 beats per minute AXIS: Normal axis INTERVALS: Normal DC interval QRS COMPLEX: Normal ST SEGMENT: Normal ST-T segments QT INTERVAL: Normal COMPARED WITH PRIOR: changed Normal SR with biatrial enlargement ASSESSMENT/PLAN: 1. Pneumonia due to infectious organism, unspecified laterality, unspecified part of lung - ICD9: 486, ICD10: J18.9 (primary diagnosis) - continue steroid taper - follow up with pulmonology - will repeat chest xray evaluate for any worsening or new findings - XR CHEST 2V FRONTAL/LAT - go to ER for increased shortness of breath, confusion, chest pressure or any other urgent concern. 2. Shortness of breath - ICD9: 786.05, ICD10: R06.02 As above - XR CHEST 2V FRONTAL/LAT 3. Chest pain, unspecified type - ICD9: 786.50, ICD10: R07.9 Atypical chest pain, - inflammation from pneumonia or uncontrolled heartburn - ECG COMPLETE - XR CHEST 2V FRONTAL/LAT 4. EKG abnormality - ICD9: 794.31, ICD10: R94.31 - with EKG showing biatrial enlargement, (no cardiomegaly on chest xray) will do ECHO to further evaluate. Prescription instructions reviewed with patient as applicable. Potential red flag symptoms discussed with the patient. Reviewed appropriate action plan to take if red flag symptoms occur. Patient agreeable to treatment plan. Laura Hernandez APRN.CNP documented in this encounterCos[facility]11-[facility] Miscellaneous Notes* Telephone Encounter - Latasha Salamanca Ma - 05/31/2022 2:14 PM EST Patient notified, will schedule through [facility]. * Telephone Encounter - Laura Hernandez APRN.CNP - 05/31/2022 2:06 PM EST Please let patient know xray shows possible starting of pneumonia. I am ordering her levaquin. 1 tablet daily for 7 days. Follow up with me next week. Thank you Laura Hernandez APRN.CNP documented in this encounterCosho[facility]11-23-2022 History of Present illness Narrative* Laura Hernandez APRN.CNP - 05/31/2022 1:17 PM EST CC: Patient presents with: Head Congestion: Chest congestion, wheezing x 3 days HPI Jane Steinberg is a 51 year old female who presents today for cough and congestion for 3 days. Patient with increased cough, wheezing, shortness of breath, and mucous production for 3 days. Willcough so hard she will vomit. Has had issues with her COPD over the past year and just recently in the last few months got it under control. Patient wanted to be seen prior to getting worse as it is going into a holiday weekend. Denies fever, chills, chest pain, body aches, or known sick contacts. Has noticed she is needing her nebulizer every 4 hours which is almost double what she usually uses it. Smokes an average of 1 cigarette a day. REVIEW OF SYSTEMS General: no fevers, no chills, no night sweats, no recurrent infections, no change in appetite, no change in energy, and no significant changes in weight Respiratory: See HPI Cardiovascular: no chest pain, no chest pressure, no palpitations, and no swelling GI: no nausea, diarrhea,abdominal pain or constipation Skin: Negative for lesions, rash, and itching Neurologic: No headache, weakness, numbness, tingling, dizziness, memory loss, syncope. PAST MEDICAL HISTORY Diagnosis Date Anorexia nervosa 06/11/2006 Stable; treated in past Anxiety Asthma Duggan's esophagus Bulimia nervosa 06/11/2006 Stable, treated in past Chest pain Chronic obstructive pulmonary disease (COPD) (HCC) Emphysema lung (HCC) Emphysema lung (HCC) GERD (gastroesophageal reflux disease) H. pylori infection cronic HISTORY OF CANCER OF UTERUS 06/11/20062003, Hysterectomy - complete Internal hemorrhoids Lung disease Migraines Snoring Tobacco use disorder 06/11/2006 Quit 09/2015. Unspecified asthma(493.90) Childhood diagnosis. PAST SURGICAL HISTORY Procedure Laterality Date APPENDECTOMY 1998 APPENDECTOMY COLONOSCOPY FLX DX W/COLLJ SPEC WHEN PFRMD 02/13/2020 Colonoscopy ESOPHAGOGASTRODUODENOSCOPY TRANSORAL DIAGNOSTIC 03/13/2017 EGD ESOPHAGOGASTRODUODENOSCOPY TRANSORAL DIAGNOSTIC 02/13/2020 EGD GASTRIC EMPTYING IMAG STUDY 02/17/2021 PAST SURGICAL HISTORY OF 2003 Lymph Node Bx 1999 TOTAL ABDOMINAL HYSTERECT W/WO RMVL TUBE OVARY 2004 and BSO - pelvic pain/benign VAGINAL HYSTERECTOMY ALLERGIES Penicillins MEDICATIONS amitriptyline (ELAVIL) 50 mg tablet Take 1 tablet by mouth daily at bedtime. lidocaine (LMX) 4 % cream Apply to affected area twice daily as needed. aspirin, enteric coated (ASPIR-81) 81 mg EC tablet Take 1 tablet by mouth once daily. ibuprofen (MOTRIN) 800 mg tablet Take 1 tablet by mouth every 8 hours as needed for pain. pantoprazole DR (PROTONIX) 40 mg tablet Take 1 tablet by mouth twice daily. 30 minutes before meal. zolpidem (AMBIEN) 5 mg tablet Take 1 tablet by mouth at bedtime as needed for sedation for up to 30days. albuterol HFA (VENTOLIN HFA) 90 mcg/actuation inhaler Inhale 2 Puffs as instructed every 4 hours asneeded for wheezing/shortness of breath. montelukast (SINGULAIR) 10 mg tablet Take 1 tablet by mouth daily at bedtime. L. acidophilus-L. rhamnosus 15 billion cell cap Take 1 capsule by mouth once daily. FLORAJEN WOMEN.If on antibiotic, take at least 1-2 hours before or after antibiotic. KEEP REFRIGERATED fluticasone-salmeterol (ADVAIR DISKUS) 500-50 mcg/dose dsdv Inhale 1 Puff as instructed twice daily. Rinse and gargle mouth with water after use. ergocalciferol 50,000 unit capsule (VITAMIN D2, DRISDOL) Take 1 capsule by mouth one time a week. albuterol (PROVENTIL) 2.5 mg /3 mL (0.083 %) nebulizer solution Use 3 mL via nebulizer every 6 hours as needed. PHENYLephrine-cocoa butter (PREPARATION H,PE,CB,) 0.25-88.44 % supp 1 Suppository by RECTAL route once daily. (Patient taking differently: 1 Suppository by RECTAL route as needed. ) dicyclomine (BENTYL) 10 mg capsule Take 1 capsule by mouth before meals and at bedtime. COMPACT SPACE CHAMBER as directed. ipratropium-albuterol (DUONEB) 0.5 mg-3 mg(2.5 mg base)/3 mL nebu Inhale 3 mL as instructed every 4hours as needed. PULSE OXIMETER CONTEC 1 Each as needed. Comp Stocking,Knee,Regular,Med misc 2 Each once daily. loratadine (CLARITIN) 10 mg tablet Take 1 tablet by mouth once daily. fluticasone (FLONASE) 50 mcg/actuation nasal spray Use 2 Sprays in each nostril once daily. Rinse mouth after use. FAMILY HISTORY Problem Relation Age of Onset Hypertension Mother Heart Mother Eczema Mother other (AAA) Mother other (Fibromyalgia) Mother Alcohol/Drug Father Alcohol Cancer Father lung Colon Cancer Father Hypertension Sister Asthma Sister other (Migraines) Sister other (Gout) Sister other (Fibromyalgia) Sister Breast Cancer Maternal Aunt 2 maternal aunts. other (MICRO PHOTOGRAPHER cancer) No Family History Social History Tobacco Use Smoking status: Former Packs/day: 0.25 Years: 29.00 Pack years: 7.25 Types: Cigarettes Start date: 11/17/1986 Quit date: 11/23/2021 Years since quittin.5 Smokeless tobacco: Never Vaping Use Vaping Use: Never used Substance Use Topics Alcohol use: Not Currently Comment: Rarely Drug use: No PHYSICAL EXAM BP 124/70 Pulse 84 Temp 36.5 C (97.7 F) (Temporal) Resp 16 Wt 56.7 kg (125 lb) SpO2 94% BMI 22.86 kg/m General Appearance: well appearing, in no acute distress, alert Pysch: mood and affect broad and appropriate Skin: Skin color, texture, turgor normal for age; Eyes: conjunctiva pink and moist, no icterus, sclera white, non-injected Nose/sinus: Nares normal. Septum midline. Mucosa normal. No drainage. Neck: Thyroid normal size and symmetric without palpable nodules, No adenopathy Lymph nodes: No cervical lymphadenopathy and No supraclavicular lymphadenopathy Lungs: expiratory wheezing noted posteriorly throughout. Rhonchi noted to LLL Heart: RRR without murmur, gallop, or rubs. No ectopy Abdomen: Abdomen soft, non-tender. Bowel sounds normal. No masses, organomegaly BUE Extremities: No deformities, edema, skin discoloration, clubbing or cyanosis. Good capillary refill. ASSESSMENT/PLAN: 1. COPD with exacerbation (HCC) - ICD9: 491.21, ICD10: J44.1 (primary diagnosis) - with increased shortness of breath, nebulizer usage, and sputum production will treat with antibiotic. Since such a large amount of wheezing and some rhonchi present on exam will have her do chest xray prior to deciding which antibiotic to prescribe. - PREDNISONE 10 MG TABLET - XR CHEST 2V FRONTAL/LAT 2. Wheezing - ICD9: 786.07, ICD10: R06.2 As above - PREDNISONE 10 MG TABLET - XR CHEST 2V FRONTAL/LAT Prescription instructions reviewed with patient as applicable. Potential red flag symptoms discussed with the patient. Reviewed appropriate action plan to take if red flag symptoms occur. Patient agreeable to treatment plan. Laura Hernandez APRN.CNP documented in this encounterCos[facility]10-10-[facility]22 History of Present illness Narrative* RT Brady(R) - 04/17/2022 11:40 AM EDT Radiology Service Progress Note PATIENT NAME: Jane Steinberg DATE OF SERVICE: April 17, 2022 TIME: 12:26 PM PATIENT IDENTITY VERIFICATION COMPLETED USING TWO (2) IDENTIFIERS: Name and Date of confirmedby patient verbally. FALL SCREENING: Has the patient had 2 falls in the last year or 1 fall with injury or currently using an Ambulatory Assistive Device (Walker, Cane, Wheelchair, Crutches, etc.)? No PATIENT GENDER DATA: Female. status: : No status: NO. PATIENT RELEVANT IMPLANT DATA REVIEWED: Not Applicable RADIOLOGY DEPARTMENT: General X-ray: Exam(s) Completed: Pelvis X-Ray: Pelvis with Hip Left PERIPHERAL IV DATA: Not applicable SIGNED BY: RT Brady(Lashae) April 17, 2022 12:26 PM documented in this encounterCos[facility]10-05-2022 History of Present illness Narrative* Laura Hernandez, EVELYN.DUMPER - 04/12/2022 1:22 PM EDT CC: Patient presents with: Recheck: Shingles follow up HPI Jane Steinberg is a 51 year old female who presents today for follow up on shingles rash with postherpetic neuralgia. Shingles rash has resolved and no new occurrences. Pain has greatly improved with the amitriptyline. Is using the lidocaine to left thigh which still hurts at night. At end of visit patient brought up chronic left hip pain that has been worsening. States she has arthritis to hip and it has hurt for years but noticed pain increasing recently. Has a left knee injury she is currently getting physical therapy for. Denies edema, weakness, numbness, tingling, decrease ROM, or injury. REVIEW OF SYSTEMS General: no fevers, no chills, no night sweats, no recurrent infections, no change in appetite, no change in energy, and no significant changes in weight Respiratory: no cough, no wheezing, no shortness of breath, no hemoptysis Cardiovascular: no chest pain, no chest pressure, no palpitations, and no swelling PAST MEDICAL HISTORY Diagnosis Date Anorexia nervosa 06/11/2006 Stable; treated in past Anxiety Asthma Duggan's esophagus Bulimia nervosa 06/11/2006 Stable, treated in past Chest pain Chronic obstructive pulmonary disease (COPD) (HCC) Emphysema lung (HCC) Emphysema lung (HCC) GERD (gastroesophageal reflux disease) H. pylori infection cronic HISTORY OF CANCER OF UTERUS 06/11/2006 2004, Hysterectomy - complete Internal hemorrhoids Lung disease Migraines Snoring Tobacco use disorder 06/11/2006 Quit 09/2015. Unspecified asthma(493.90) Childhood diagnosis. PAST SURGICAL HISTORY Procedure Laterality Date APPENDECTOMY 1998 APPENDECTOMY COLONOSCOPY FLX DX W/COLLJ SPEC WHEN PFRMD 02/13/2020 Colonoscopy ESOPHAGOGASTRODUODENOSCOPY TRANSORAL DIAGNOSTIC 03/13/2017 EGD ESOPHAGOGASTRODUODENOSCOPY TRANSORAL DIAGNOSTIC 02/13/2020 EGD GASTRIC EMPTYING IMAG STUDY 02/17/2021 PAST SURGICAL HISTORY OF 2003 Lymph Node Bx 1999 TOTAL ABDOMINAL HYSTERECT W/WO RMVL TUBE OVARY 2004 and BSO - pelvic pain/benign VAGINAL HYSTERECTOMY ALLERGIES Penicillins MEDICATIONS amitriptyline (ELAVIL) 25 mg tablet Take 1 tablet by mouth daily at bedtime. lidocaine (LMX) 4 % cream Apply to affected area twice daily as needed. aspirin, enteric coated (ASPIR-81) 81 mg EC tablet Take 1 tablet by mouth once daily. ibuprofen (MOTRIN) 800 mg tablet Take 1 tablet by mouth every 8 hours as needed for pain. gabapentin (NEURONTIN) 100 mg capsule Take 1 capsule by mouth three times daily for [address] (PROTONIX) 40 mg tablet Take 1 tablet by mouth twice daily. 30 minutes before meal. zolpidem (AMBIEN) 5 mg tablet Take 1 tablet by mouth at bedtime as needed for sedation for up to 30days. albuterol HFA (VENTOLIN HFA) 90 mcg/actuation inhaler Inhale 2 Puffs as instructed every 4 hours asneeded for wheezing/shortness of breath. montelukast (SINGULAIR) 10 mg tablet Take 1 tablet by mouth daily at bedtime. L. acidophilus-L. rhamnosus 15 billion cell cap Take 1 capsule by mouth once daily. FLORAJEN WOMEN.If on antibiotic, take at least 1-2 hours before or after antibiotic. KEEP REFRIGERATED fluticasone-salmeterol (ADVAIR DISKUS) 500-50 mcg/dose dsdv Inhale 1 Puff as instructed twice daily. Rinse and gargle mouth with water after use. ergocalciferol 50,000 unit capsule (VITAMIN D2, DRISDOL) Take 1 capsule by mouth one time a week. albuterol (PROVENTIL) 2.5 mg /3 mL (0.083 %) nebulizer solution Use 3 mL via nebulizer every 6 hours as needed. PHENYLephrine-cocoa butter (PREPARATION H,PE,CB,) 0.25-88.44 % supp 1 Suppository by RECTAL route once daily. (Patient taking differently: 1 Suppository by RECTAL route as needed. ) dicyclomine (BENTYL) 10 mg capsule Take 1 capsule by mouth before meals and at bedtime. COMPACT SPACE CHAMBER as directed. ipratropium-albuterol (DUONEB) 0.5 mg-3 mg(2.5 mg base)/3 mL nebu Inhale 3 mL as instructed every 4hours as needed. PULSE OXIMETER CONTEC 1 Each as needed. Comp Stocking,Knee,Regular,Med misc 2 Each once daily. loratadine (CLARITIN) 10 mg tablet Take 1 tablet by mouth once daily. fluticasone (FLONASE) 50 mcg/actuation nasal spray Use 2 Sprays in each nostril once daily. Rinse mouth after use. FAMILY HISTORY Problem Relation Age of Onset Hypertension Mother Heart Mother Eczema Mother other (AAA) Mother other (Fibromyalgia) Mother Alcohol/Drug Father Alcohol Cancer Father lung Colon Cancer Father Hypertension Sister Asthma Sister other (Migraines) Sister other (Gout) Sister other (Fibromyalgia) Sister Breast Cancer Maternal Aunt 2 maternal aunts. other (MICRO PHOTOGRAPHER cancer) No Family History Social History Tobacco Use Smoking status: Former Packs/day: 0.25 Years: 29.00 Pack years: 7.25 Types: Cigarettes Start date: 11/17/1986 Quit date: 11/23/2021 Years since quittin.3 Smokeless tobacco: Never Vaping Use Vaping Use: Never used Substance Use Topics Alcohol use: Not Currently Comment: Rarely Drug use: No PHYSICAL EXAM BP 112/72 Pulse 92 Resp 16 Wt 57.6 kg (127 lb) BMI 23.23 kg/m General Appearance: well appearing, in no acute distress, alert Skin: Skin color, texture, turgor normal for age; Eyes: conjunctiva pink and moist, no icterus, sclera white, non-injected Lungs: Lungs clear to auscultation. No wheezing, rhonchi, rales. Heart: RRR without murmur, gallop, or rubs. No ectopy Health maintenance reviewed with patient: HEPATITIS B(1 of 3 - 3-dose series) Never done COVID-19 VACCINE(3 - Booster for Pfizer series) due on 11/21/2021 INFLUENZA(1) due on 03/09/2022 DTAP,TDAP,TD(6 - Tdap) due on 06/25/2022 PAP TESTING due on 01/12/2023 SHINGRIX VACCINE(1 of 2) due on 01/12/2023 PNEUMOCOCCAL(2 - PCV) due on 01/12/2023 MAMMOGRAM due on 11/18/2022 ANNUAL PCP TEAM CHRONIC DISEASE VISIT due on 03/29/2023 DIABETES SCREEN due on 02/27/2025 HPV TESTING due on 10/22/2025 LIPID SCREEN due on 11/18/2026 COLORECTAL CANCER SCREENING due on 02/12/2030 ALPHA-1 ANTITRYPSIN DEFICIENCY SCREENING Completed SPIROMETRY Completed HEPATITIS C SCREENING Completed HIV SCREENING Completed DATA REVIEWED: No new labs ASSESSMENT/PLAN: 1. Herpes zoster without complication - ICD9: 053.9, ICD10: B02.9 (primary diagnosis) Resolved 2. Postherpetic neuralgia - ICD9: 053.19, ICD10: B02.29 - will continue with current amitriptyline dose, but discussed if she is still needing the lidocaine gel to contact me in a week or so to have this dosage increased - follow up in 3 months. 3. Left hip pain - ICD9: 719.45, ICD10: M25.552 - discussed possibility of pain increasing because of abnormal gait due to left knee injury. Patient to let physical therapy of this and if needed, will send an order for the left hip pain. - also discussed if patient needed a thorough evaluation for the left hip she needs to schedule an appointment to review this. Prescription instructions reviewed with patient as applicable. Potential red flag symptoms discussed with the patient. Reviewed appropriate action plan to take if red flag symptoms occur. Patient agreeable to treatment plan. Laura Hernandez APRN.CNP documented in this encounterCos[facility]09-21-2022 History of Present illness Narrative* Laura Hernandez, EVELYN.KACY - 03/29/2022 1:05 PM EDT CC: Patient presents with: Recheck: Rash follow up, new rash on leg and arm x 1 week, sharp shooting pain HPI Jane Steinberg is a 51 year old female who presents today for rash. Duration: 1 week feels it is getting worse. States it started as pain and then the rashes showed. Is still seeing new areas to rash on right upper thigh appear. Location: left upper arm is painful red and dry but originally was reddened vesicles and left upperleg towards groin is painful and reddened vesicles. Itching or Pain: YES. Ever had a rash like this before:Yes had shingles to right upper chest a few weeks ago that resolved except the pain. Per patient she feels it was actually on the left side of chest History of skin problems such as psoriasis, eczema, hives: No. Changes in soaps or detergents: No. New medications or foods: No. Exposure to others with rash: No. Environmental exposures: No Environmental/seasonal allergies: Yes Fever, chills, fatigue, joint pain/swelling: No. Treatments: Tried alcohol rubs and lidocaine gel for pain which is not helpful. PAST MEDICAL HISTORY Diagnosis Date Anorexia nervosa 06/11/2006 Stable; treated in past Anxiety Asthma Duggan's esophagus Bulimia nervosa 06/11/2006 Stable, treated in past Chest pain Chronic obstructive pulmonary disease (COPD) (HCC) Emphysema lung (HCC) Emphysema lung (HCC) GERD (gastroesophageal reflux disease) H. pylori infection cronic HISTORY OF CANCER OF UTERUS 06/11/2006 2004, Hysterectomy - complete Internal hemorrhoids Lung disease Migraines Snoring Tobacco use disorder 06/11/2006 Quit 09/2015. Unspecified asthma(493.90) Childhood diagnosis. PAST SURGICAL HISTORY Procedure Laterality Date APPENDECTOMY 1998 APPENDECTOMY COLONOSCOPY FLX DX W/COLLJ SPEC WHEN PFRMD 02/13/2020 Colonoscopy ESOPHAGOGASTRODUODENOSCOPY TRANSORAL DIAGNOSTIC 03/13/2017 EGD ESOPHAGOGASTRODUODENOSCOPY TRANSORAL DIAGNOSTIC 02/13/2020 EGD GASTRIC EMPTYING IMAG STUDY 02/17/2021 PAST SURGICAL HISTORY OF 2004 Lymph Node Bx 1999 TOTAL ABDOMINAL HYSTERECT W/WO RMVL TUBE OVARY 2004 and BSO - pelvic pain/benign VAGINAL HYSTERECTOMY ALLERGIES Penicillins MEDICATIONS amitriptyline (ELAVIL) 10 mg tablet Take 1 tablet by mouth daily at bedtime. lidocaine (LMX) 4 % cream Apply to affected area twice daily as needed. aspirin, enteric coated (ASPIR-81) 81 mg EC tablet Take 1 tablet by mouth once daily. ibuprofen (MOTRIN) 800 mg tablet Take 1 tablet by mouth every 8 hours as needed for pain. gabapentin (NEURONTIN) 100 mg capsule Take 1 capsule by mouth three times daily for [address] (PROTONIX) 40 mg tablet Take 1 tablet by mouth twice daily. 30 minutes before meal. zolpidem (AMBIEN) 5 mg tablet Take 1 tablet by mouth at bedtime as needed for sedation for up to 30days. albuterol HFA (VENTOLIN HFA) 90 mcg/actuation inhaler Inhale 2 Puffs as instructed every 4 hours asneeded for wheezing/shortness of breath. montelukast (SINGULAIR) 10 mg tablet Take 1 tablet by mouth daily at bedtime. L. acidophilus-L. rhamnosus 15 billion cell cap Take 1 capsule by mouth once daily. FLORAJEN WOMEN.If on antibiotic, take at least 1-2 hours before or after antibiotic. KEEP REFRIGERATED fluticasone-salmeterol (ADVAIR DISKUS) 500-50 mcg/dose dsdv Inhale 1 Puff as instructed twice daily. Rinse and gargle mouth with water after use. ergocalciferol 50,000 unit capsule (VITAMIN D2, DRISDOL) Take 1 capsule by mouth one time a week. albuterol (PROVENTIL) 2.5 mg /3 mL (0.083 %) nebulizer solution Use 3 mL via nebulizer every 6 hours as needed. PHENYLephrine-cocoa butter (PREPARATION H,PE,CB,) 0.25-88.44 % supp 1 Suppository by RECTAL route once daily. (Patient taking differently: 1 Suppository by RECTAL route as needed. ) dicyclomine (BENTYL) 10 mg capsule Take 1 capsule by mouth before meals and at bedtime. COMPACT SPACE CHAMBER as directed. ipratropium-albuterol (DUONEB) 0.5 mg-3 mg(2.5 mg base)/3 mL nebu Inhale 3 mL as instructed every 4hours as needed. PULSE OXIMETER CONTEC 1 Each as needed. Comp Stocking,Knee,Regular,Med misc 2 Each once daily. loratadine (CLARITIN) 10 mg tablet Take 1 tablet by mouth once daily. fluticasone (FLONASE) 50 mcg/actuation nasal spray Use 2 Sprays in each nostril once daily. Rinse mouth after use. FAMILY HISTORY Problem Relation Age of Onset Hypertension Mother Heart Mother Eczema Mother other (AAA) Mother other (Fibromyalgia) Mother Alcohol/Drug Father Alcohol Cancer Father lung Colon Cancer Father Hypertension Sister Asthma Sister other (Migraines) Sister other (Gout) Sister other (Fibromyalgia) Sister Breast Cancer Maternal Aunt 2 maternal aunts. other (MICRO PHOTOGRAPHER cancer) No Family History Social History Tobacco Use Smoking status: Former Packs/day: 0.25 Years: 29.00 Pack years: 7.25 Types: Cigarettes Start date: 11/17/1986 Quit date: 11/23/2021 Years since quittin.3 Smokeless tobacco: Never Vaping Use Vaping Use: Never used Substance Use Topics Alcohol use: Not Currently Comment: Rarely Drug use: No REVIEW OF SYSTEMS General: no fevers, no chills, no night sweats, no recurrent infections, no change in appetite, no change in energy, and no significant changes in weight Respiratory: no increase in chronic cough, wheezing, or shortness of breath, no hemoptysis Cardiovascular: no chest pain, no chest pressure, no palpitations, and no swelling Skin: See HPI PHYSICAL EXAM BP 126/78 Pulse 68 Resp 16 Wt 55.3 kg (122 lb) BMI 22.31 kg/m General Appearance: well appearing, in no acute distress, alert Lungs: inspiratory and expiratory wheezing throughout bilateraly Heart: RRR without murmur, gallop, or rubs. No ectopy Skin: Upper left thigh: vesicles on an erythematous base clustered in a dermatomal distribution Left Upper Arm: reddened and dry/crusty without vesicles - per patient vesicles were there until she started scrubbing them with alcohol. DATA REVIEWED: No new labs ASSESSMENT/PLAN: 1. Herpes zoster without complication - ICD9: 053.9, ICD10: B02.9 (primary diagnosis) - discussed if this continues or changes, she will need to see dermatology for further evaluation. - since continuing to spread will treat with valacyclovir and prednisone - increasing amitriptyline. 2. Postherpetic neuralgia - ICD9: 053.19, ICD10: B02.29 As above 3. Wheezing - ICD9: 786.07, ICD10: R06.2 - per patient this is how she usually sounds and will take her albuterol inhaler once she gets in car to resolve wheezing - follow up if this does not improve - go to ER for increased shortness of breath, chest pain, or any other urgent concerns. Prescription instructions reviewed with patient as applicable. Potential red flag symptoms discussed with the patient. Reviewed appropriate action plan to take if red flag symptoms occur. Patient agreeable to treatment plan. Laura Hernandez APRN.CNP [facility] History of Present illness Narrative* Laura Hernandez APRN.CNP - 03/16/2022 1:40 PM EDT CC: Patient presents with: Recheck: 2 week shingles follow up HPI Jane Steinberg is a 51 year old female who presents today for on shingles and post herpetic neuralgia. Was seen 2 weeks ago and started on gabapentin Since last visit, rash has completely subsided, but still having pain of burning to skin to right upper chest area where the rash was. States it is so painful for anything to rub against it. Has increased gabapentin since last visit with only small amount of improvement. Cold temperatures seem to increase the pain. Denies any numbness, tingling, increase in chronic shortness of breath, chest pain, fever, or any other concerns. REVIEW OF SYSTEMS General: no fevers, no chills, no night sweats, no recurrent infections, no change in appetite, no change in energy, and no significant changes in weight Respiratory: no cough, no wheezing, no hemoptysis Cardiovascular: no chest pain, no chest pressure, no palpitations, and no swelling Skin: See HPI PAST MEDICAL HISTORY Diagnosis Date Anorexia nervosa 06/11/2006 Stable; treated in past Anxiety Asthma Duggan's esophagus Bulimia nervosa 06/11/2006 Stable, treated in past Chest pain Chronic obstructive pulmonary disease (COPD) (HCC) Emphysema lung (HCC) Emphysema lung (HCC) GERD (gastroesophageal reflux disease) H. pylori infection cronic HISTORY OF CANCER OF UTERUS 06/11/20062003, Hysterectomy - complete Internal hemorrhoids Lung disease Migraines Snoring Tobacco use disorder 06/11/2006 Quit 09/2015. Unspecified asthma(493.90) Childhood diagnosis. PAST SURGICAL HISTORY Procedure Laterality Date APPENDECTOMY 1998 APPENDECTOMY COLONOSCOPY FLX DX W/COLLJ SPEC WHEN PFRMD 02/13/2020 Colonoscopy ESOPHAGOGASTRODUODENOSCOPY TRANSORAL DIAGNOSTIC 03/13/2017 EGD ESOPHAGOGASTRODUODENOSCOPY TRANSORAL DIAGNOSTIC 02/13/2020 EGD GASTRIC EMPTYING IMAG STUDY 02/17/2021 PAST SURGICAL HISTORY OF 2004 Lymph Node Bx 1999 TOTAL ABDOMINAL HYSTERECT W/WO RMVL TUBE OVARY 2004 and BSO - pelvic pain/benign VAGINAL HYSTERECTOMY ALLERGIES Penicillins MEDICATIONS aspirin, enteric coated (ASPIR-81) 81 mg EC tablet Take 1 tablet by mouth once daily. ibuprofen (MOTRIN) 800 mg tablet Take 1 tablet by mouth every 8 hours as needed for pain. gabapentin (NEURONTIN) 100 mg capsule Take 1 capsule by mouth three times daily for [address] (PROTONIX) 40 mg tablet Take 1 tablet by mouth twice daily. 30 minutes before meal. zolpidem (AMBIEN) 5 mg tablet Take 1 tablet by mouth at bedtime as needed for sedation for up to 30days. albuterol HFA (VENTOLIN HFA) 90 mcg/actuation inhaler Inhale 2 Puffs as instructed every 4 hours asneeded for wheezing/shortness of breath. montelukast (SINGULAIR) 10 mg tablet Take 1 tablet by mouth daily at bedtime. L. acidophilus-L. rhamnosus 15 billion cell cap Take 1 capsule by mouth once daily. FLORAJEN WOMEN.If on antibiotic, take at least 1-2 hours before or after antibiotic. KEEP REFRIGERATED fluticasone-salmeterol (ADVAIR DISKUS) 500-50 mcg/dose dsdv Inhale 1 Puff as instructed twice daily. Rinse and gargle mouth with water after use. ergocalciferol 50,000 unit capsule (VITAMIN D2, DRISDOL) Take 1 capsule by mouth one time a week. albuterol (PROVENTIL) 2.5 mg /3 mL (0.083 %) nebulizer solution Use 3 mL via nebulizer every 6 hours as needed. PHENYLephrine-cocoa butter (PREPARATION H,PE,CB,) 0.25-88.44 % supp 1 Suppository by RECTAL route once daily. (Patient taking differently: 1 Suppository by RECTAL route as needed. ) dicyclomine (BENTYL) 10 mg capsule Take 1 capsule by mouth before meals and at bedtime. COMPACT SPACE CHAMBER as directed. ipratropium-albuterol (DUONEB) 0.5 mg-3 mg(2.5 mg base)/3 mL nebu Inhale 3 mL as instructed every 4hours as needed. PULSE OXIMETER CONTEC 1 Each as needed. Comp Stocking,Knee,Regular,Med misc 2 Each once daily. loratadine (CLARITIN) 10 mg tablet Take 1 tablet by mouth once daily. fluticasone (FLONASE) 50 mcg/actuation nasal spray Use 2 Sprays in each nostril once daily. Rinse mouth after use. FAMILY HISTORY Problem Relation Age of Onset Hypertension Mother Heart Mother Eczema Mother other (AAA) Mother other (Fibromyalgia) Mother Alcohol/Drug Father Alcohol Cancer Father lung Colon Cancer Father Hypertension Sister Asthma Sister other (Migraines) Sister other (Gout) Sister other (Fibromyalgia) Sister Breast Cancer Maternal Aunt 2 maternal aunts. other (MICRO PHOTOGRAPHER cancer) No Family History Social History Tobacco Use Smoking status: Former Packs/day: 0.25 Years: 29.00 Pack years: 7.25 Types: Cigarettes Start date: 11/17/1986 Quit date: 11/23/2021 Years since quittin.3 Smokeless tobacco: Never Vaping Use Vaping Use: Never used Substance Use Topics Alcohol use: Not Currently Comment: Rarely Drug use: No PHYSICAL EXAM BP 122/76 Pulse 74 Resp 16 Wt 55.3 kg (122 lb) SpO2 99% BMI 22.31 kg/m General Appearance: well appearing, in no acute distress, alert Pysch: mood and affect broad and appropriate Skin: Skin color, texture, turgor normal for age; No rashes or lesions Eyes: conjunctiva pink and moist, no icterus, sclera white, non-injected Health maintenance reviewed with patient: HEPATITIS B(1 of 3 - 3-dose series) Never done COVID-19 VACCINE(3 - Booster for Pfizer series) due on 02/26/2022 INFLUENZA(1) due on 03/09/2022 DTAP,TDAP,TD(6 - Tdap) due on 06/25/2022 PAP TESTING due on 01/12/2023 SHINGRIX VACCINE(1 of 2) due on 01/12/2023 PNEUMOCOCCAL(2 - PCV) due on 01/12/2023 MAMMOGRAM due on 11/18/2022 ANNUAL PCP TEAM CHRONIC DISEASE VISIT due on 02/27/2023 DIABETES SCREEN due on 02/27/2025 HPV TESTING due on 10/22/2025 LIPID SCREEN due on 11/18/2026 COLORECTAL CANCER SCREENING due on 02/12/2030 ALPHA-1 ANTITRYPSIN DEFICIENCY SCREENING Completed SPIROMETRY Completed HEPATITIS C SCREENING Completed HIV SCREENING Completed DATA REVIEWED: No new labs ASSESSMENT/PLAN: 1. Postherpetic neuralgia - ICD9: 053.19, ICD10: B02.29 - will start lidocaine gel to area and begin amitriptyline. Hopefully this will improve her pain and we can wean off gabapentin. - follow up in 4 weeks. Prescription instructions reviewed with patient as applicable. Potential red flag symptoms discussed with the patient. Reviewed appropriate action plan to take if red flag symptoms occur. Patient agreeable to treatment plan. Laura Hernandez APRN.CNP [facility] History of Present illness Narrative* Laura Hernandez APRN.CNP - 02/27/2022 2:14 PM EDT CC: Patient presents with: Pain: Pain throughout arms, legs, shoulders x 5 days HPI Jane Steinberg is a 51 year old female who presents today for muscle spasms to arms and legs forthe past 5 days which is typically at night but happens during the day as well. Also states her skin is very sensitive, feels like it is burning, and touch hurts. Is unable to even have a sheet on atnight or even sleep more than 2 hours because of the pain. Noticed a burning to the skin on the right side of her chest 2 days ago and saw bumps to her chest.[place] bumps and saw what looked like a rasied scratch that may have had blisters. When showed pictures of various rashes, identified a shingles rash as what it originally looked like. REVIEW OF SYSTEMS General: no fevers, no chills, no night sweats, no recurrent infections, no change in appetite, no change in energy, and no significant changes in weight Respiratory: no cough, no wheezing, no shortness of breath, no hemoptysis Cardiovascular: no chest pain, no chest pressure, no palpitations, and no swelling Skin: See HPI, no other rashes except what is identified in HPI Neurologic: No headache, weakness, numbness, tingling, dizziness, syncope. PAST MEDICAL HISTORY Diagnosis Date Anorexia nervosa 06/11/2006 Stable; treated in past Anxiety Asthma Duggan's esophagus Bulimia nervosa 06/11/2006 Stable, treated in past Chest pain Chronic obstructive pulmonary disease (COPD) (HCC) Emphysema lung (HCC) Emphysema lung (HCC) GERD (gastroesophageal reflux disease) H. pylori infection cronic HISTORY OF CANCER OF UTERUS 06/11/20062003, Hysterectomy - complete Internal hemorrhoids Lung disease Migraines Snoring Tobacco use disorder 06/11/2006 Quit 09/2015. Unspecified asthma(493.90) Childhood diagnosis. PAST SURGICAL HISTORY Procedure Laterality Date APPENDECTOMY 1998 APPENDECTOMY COLONOSCOPY FLX DX W/COLLJ SPEC WHEN PFRMD 02/13/2020 Colonoscopy ESOPHAGOGASTRODUODENOSCOPY TRANSORAL DIAGNOSTIC 03/13/2017 EGD ESOPHAGOGASTRODUODENOSCOPY TRANSORAL DIAGNOSTIC 02/13/2020 EGD GASTRIC EMPTYING IMAG STUDY 02/17/2021 PAST SURGICAL HISTORY OF 2003 Lymph Node Bx 1999 TOTAL ABDOMINAL HYSTERECT W/WO RMVL TUBE OVARY 2004 and BSO - pelvic pain/benign VAGINAL HYSTERECTOMY ALLERGIES Penicillins MEDICATIONS pantoprazole DR (PROTONIX) 40 mg tablet Take 1 tablet by mouth twice daily. 30 minutes before meal. zolpidem (AMBIEN) 5 mg tablet Take 1 tablet by mouth at bedtime as needed for sedation for up to 30days. albuterol HFA (VENTOLIN HFA) 90 mcg/actuation inhaler Inhale 2 Puffs as instructed every 4 hours asneeded for wheezing/shortness of breath. montelukast (SINGULAIR) 10 mg tablet Take 1 tablet by mouth daily at bedtime. L. acidophilus-L. rhamnosus 15 billion cell cap Take 1 capsule by mouth once daily. FLORAJEN WOMEN.If on antibiotic, take at least 1-2 hours before or after antibiotic. KEEP REFRIGERATED fluticasone-salmeterol (ADVAIR DISKUS) 500-50 mcg/dose dsdv Inhale 1 Puff as instructed twice daily. Rinse and gargle mouth with water after use. aspirin, enteric coated (ASPIR-81) 81 mg EC tablet Take 1 tablet by mouth once daily. ergocalciferol 50,000 unit capsule (VITAMIN D2, DRISDOL) Take 1 capsule by mouth one time a week. ibuprofen (MOTRIN) 800 mg tablet Take 1 tablet by mouth every 8 hours as needed for pain. albuterol (PROVENTIL) 2.5 mg /3 mL (0.083 %) nebulizer solution Use 3 mL via nebulizer every 6 hours as needed. PHENYLephrine-cocoa butter (PREPARATION H,PE,CB,) 0.25-88.44 % supp 1 Suppository by RECTAL route once daily. (Patient taking differently: 1 Suppository by RECTAL route as needed. ) dicyclomine (BENTYL) 10 mg capsule Take 1 capsule by mouth before meals and at bedtime. COMPACT SPACE CHAMBER as directed. ipratropium-albuterol (DUONEB) 0.5 mg-3 mg(2.5 mg base)/3 mL nebu Inhale 3 mL as instructed every 4hours as needed. PULSE OXIMETER CONTEC 1 Each as needed. Comp Stocking,Knee,Regular,Med misc 2 Each once daily. loratadine (CLARITIN) 10 mg tablet Take 1 tablet by mouth once daily. fluticasone (FLONASE) 50 mcg/actuation nasal spray Use 2 Sprays in each nostril once daily. Rinse mouth after use. FAMILY HISTORY Problem Relation Age of Onset Hypertension Mother Heart Mother Eczema Mother other (AAA) Mother other (Fibromyalgia) Mother Alcohol/Drug Father Alcohol Cancer Father lung Colon Cancer Father Hypertension Sister Asthma Sister other (Migraines) Sister other (Gout) Sister other (Fibromyalgia) Sister Breast Cancer Maternal Aunt 2 maternal aunts. other (MICRO PHOTOGRAPHER cancer) No Family History Social History Tobacco Use Smoking status: Former Packs/day: 0.25 Years: 29.00 Pack years: 7.25 Types: Cigarettes Start date: 11/17/1986 Quit date: 11/23/2021 Years since quittin.2 Smokeless tobacco: Never Vaping Use Vaping Use: Never used Substance Use Topics Alcohol use: Not Currently Comment: Rarely Drug use: No PHYSICAL EXAM BP 122/74 Pulse 76 Resp 16 Wt 55.3 kg (122 lb) SpO2 95% BMI 22.31 kg/m General Appearance: well appearing, in no acute distress, alert Pysch: mood and affect broad and appropriate Eyes: conjunctiva pink and moist, no icterus, sclera white, non-injected Neck: Thyroid normal size and symmetric without palpable nodules, No adenopathy Lymph nodes: No cervical lymphadenopathy and No supraclavicular lymphadenopathy Lungs: Lungs clear to auscultation. No wheezing, rhonchi, rales. Heart: RRR without murmur, gallop, or rubs. No ectopy BUE Extremities: No deformities, edema, skin discoloration, clubbing or cyanosis. Good capillary refill. Skin: 1-1.5 inch scabbed/crusted rash to right upper chest. Health maintenance reviewed with patient: HEPATITIS B(1 of 3 - 3-dose series) Never done COVID-19 VACCINE(3 - Booster for Pfizer series) due on 02/26/2022 DTAP,TDAP,TD(6 - Tdap) due on 06/25/2022 PAP TESTING due on 01/12/2023 SHINGRIX VACCINE(1 of 2) due on 01/12/2023 PNEUMOCOCCAL(2 - PCV) due on 01/12/2023 INFLUENZA(1) due on 03/09/2022 MAMMOGRAM due on 11/18/2022 ANNUAL PCP TEAM CHRONIC DISEASE VISIT due on 01/12/2023 DIABETES SCREEN due on 11/18/2024 HPV TESTING due on 10/22/2025 LIPID SCREEN due on 11/18/2026 COLORECTAL CANCER SCREENING due on 02/12/2030 ALPHA-1 ANTITRYPSIN DEFICIENCY SCREENING Completed SPIROMETRY Completed HEPATITIS C SCREENING Completed HIV SCREENING Completed DATA REVIEWED: No new labs ASSESSMENT/PLAN: 1. Muscle cramps - ICD9: 729.82, ICD10: R25.2 (primary diagnosis) - unsure on cause - CBC + DIFF - BASIC METABOLIC PNL - MAGNESIUM BLD 2. Restless leg - ICD9: 333.94, ICD10: G25.81 - CBC + DIFF - BASIC METABOLIC PNL - MAGNESIUM BLD 3. Herpes zoster without complication - ICD9: 053.9, ICD10: B02.9 - rash is healing without any new lesions but pain is still present - gabapentin as prescribed - follow up in 2 weeks. Prescription instructions reviewed with patient as applicable. Potential red flag symptoms discussed with the patient. Reviewed appropriate action plan to take if red flag symptoms occur. Patient agreeable to treatment plan. Laura Hernandez APRN.CNP [facility] History of Present illness Narrative* Laura Hernandez APRN.CNP - 01/12/2022 9:38 AM EDT CC: Patient presents with: Recheck: Follow up COPD HPI Jane Steinberg is a 51 year old female who presents today for follow up on uncontrolled COPD. Since last visit, she established with [facility], and bronchoscopy completed showing severe COPD. Had a routine follow up and to discuss bronchoscopy results pulmonology a few days ago, was placed on Zpack, inhaler changed, And started mucinex. Patient unsure what inhaler she is taking versus thespiriva and unsure if she is taking duoneb versus albuterol only in her nebulizer. Using nebulizer every 4-5 hours. SOB, cough, and wheezing is irritatated by the heat but feels better when in the air conditioning. Has seen improvement in all of these symptoms since last visit. Denies fever, chest pain, fatigue, or any new concerns. GERD: taking pantoprazole twice daily has heart burn every other day and has difficulty sleeping because of it. Is seeing ID today for chronic H-pylori has a decreased appetite, upper abdominal pain and nausea related to Hpylori without any change. No vomiting constipaiton or diarrhea. REVIEW OF SYSTEMS General: no fevers, no chills, no night sweats, no recurrent infections, no change in appetite, no change in energy and no significant changes in weight Respiratory: no cough, no wheezing, no shortness of breath, no hemoptysis Cardiovascular: no chest pain, no chest pressure, no palpitations and no swelling GI: See HPI Neurologic: No headache, weakness, numbness, tingling, dizziness, syncope. PAST MEDICAL HISTORY Diagnosis Date Anorexia nervosa 06/11/2006 Stable; treated in past Anxiety Asthma Duggan's esophagus Bulimia nervosa 06/11/2006 Stable, treated in past Chest pain Chronic obstructive pulmonary disease (COPD) (HCC) Emphysema lung (HCC) Emphysema lung (HCC) GERD (gastroesophageal reflux disease) H. pylori infection cronic HISTORY OF CANCER OF UTERUS 06/11/20062003, Hysterectomy - complete Internal hemorrhoids Lung disease Migraines Snoring Tobacco use disorder 06/11/2006 Quit 09/2015. Unspecified asthma(493.90) Childhood diagnosis. PAST SURGICAL HISTORY Procedure Laterality Date APPENDECTOMY 1998 APPENDECTOMY COLONOSCOPY FLX DX W/COLLJ SPEC WHEN PFRMD 02/13/2020 Colonoscopy ESOPHAGOGASTRODUODENOSCOPY TRANSORAL DIAGNOSTIC 03/13/2017 EGD ESOPHAGOGASTRODUODENOSCOPY TRANSORAL DIAGNOSTIC 02/13/2020 EGD GASTRIC EMPTYING IMAG STUDY 02/17/2021 PAST SURGICAL HISTORY OF 2003 Lymph Node Bx 1999 TOTAL ABDOMINAL HYSTERECT W/WO RMVL TUBE OVARY 2004 and BSO - pelvic pain/benign VAGINAL HYSTERECTOMY ALLERGIES Penicillins MEDICATIONS tiotropium bromide (SPIRIVA RESPIMAT) 2.5 mcg/actuation inhaler Inhale 2 Puffs as instructed once daily. Inhale two puffs once daily. pantoprazole DR (PROTONIX) 40 mg tablet Take 1 tablet by mouth twice daily. 30 minutes before meal. zolpidem (AMBIEN) 5 mg tablet Take 1 tablet by mouth at bedtime as needed for sedation for up to 30days. albuterol HFA (VENTOLIN HFA) 90 mcg/actuation inhaler Inhale 2 Puffs as instructed every 4 hours asneeded for wheezing/shortness of breath. montelukast (SINGULAIR) 10 mg tablet Take 1 tablet by mouth daily at bedtime. L. acidophilus-L. rhamnosus 15 billion cell cap Take 1 capsule by mouth once daily. FLORAJEN WOMEN.If on antibiotic, take at least 1-2 hours before or after antibiotic. KEEP REFRIGERATED fluticasone-salmeterol (ADVAIR DISKUS) 500-50 mcg/dose dsdv Inhale 1 Puff as instructed twice daily. Rinse and gargle mouth with water after use. aspirin, enteric coated (ASPIR-81) 81 mg EC tablet Take 1 tablet by mouth once daily. ergocalciferol 50,000 unit capsule (VITAMIN D2, DRISDOL) Take 1 capsule by mouth one time a week. ibuprofen (MOTRIN) 800 mg tablet Take 1 tablet by mouth every 8 hours as needed for pain. albuterol (PROVENTIL) 2.5 mg /3 mL (0.083 %) nebulizer solution Use 3 mL via nebulizer every 6 hours as needed. PHENYLephrine-cocoa butter (PREPARATION H,PE,CB,) 0.25-88.44 % supp 1 Suppository by RECTAL route once daily. dicyclomine (BENTYL) 10 mg capsule Take 1 capsule by mouth before meals and at bedtime. COMPACT SPACE CHAMBER as directed. ipratropium-albuterol (DUONEB) 0.5 mg-3 mg(2.5 mg base)/3 mL nebu Inhale 3 mL as instructed every 4hours as needed. PULSE OXIMETER CONTEC 1 Each as needed. Comp Stocking,Knee,Regular,Med misc 2 Each once daily. loratadine (CLARITIN) 10 mg tablet Take 1 tablet by mouth once daily. fluticasone (FLONASE) 50 mcg/actuation nasal spray Use 2 Sprays in each nostril once daily. Rinse mouth after use. FAMILY HISTORY Problem Relation Age of Onset Hypertension Mother Heart Mother Eczema Mother other (AAA) Mother other (Fibromyalgia) Mother Alcohol/Drug Father Alcohol Cancer Father lung Colon Cancer Father Hypertension Sister Asthma Sister other (Migraines) Sister other (Gout) Sister other (Fibromyalgia) Sister Breast Cancer Maternal Aunt 2 maternal aunts. other (MICRO PHOTOGRAPHER cancer) No Family History Social History Tobacco Use Smoking status: Former Smoker Packs/day: 0.25 Years: 29.00 Pack years: 7.25 Types: Cigarettes Start date: 11/17/1986 Quit date: 11/23/2021 Years since quittin.1 Smokeless tobacco: Never Used Vaping Use Vaping Use: Never used Substance Use Topics Alcohol use: Not Currently Comment: Rarely Drug use: No PHYSICAL EXAM BP 124/76 Pulse 82 Resp 16 Wt 55.8 kg (123 lb) SpO2 99% BMI 22.50 kg/m General Appearance: well appearing, in no acute distress, alert Skin: Skin color, texture, turgor normal for age; Eyes: conjunctiva pink and moist, no icterus, sclera white, non-injected Lungs: Lungs with posterior scattered expiratory and inspiratory wheezes. No rhonchi, rales. Heart: RRR without murmur, gallop, or rubs. No ectopy BUE Extremities: No deformities, edema, skin discoloration, clubbing or cyanosis. Good capillary refill. Health maintenance reviewed with patient: PNEUMOCOCCAL(2 - PCV) due on 01/25/2017 SHINGRIX VACCINE(1 of 2) Never done PAP TESTING due on 10/22/2021 DTAP,TDAP,TD(6 - Tdap) due on 06/25/2022 COVID-19 VACCINE(3 - Booster for Pfizer series) due on 02/26/2022 INFLUENZA(1) due on 03/09/2022 MAMMOGRAM due on 11/18/2022 ANNUAL PCP TEAM CHRONIC DISEASE VISIT due on 11/30/2022 DIABETES SCREEN due on 11/18/2024 HPV TESTING due on 10/22/2025 LIPID SCREEN due on 11/18/2026 COLORECTAL CANCER SCREENING due on 02/12/2030 SPIROMETRY Completed HEPATITIS C SCREENING Completed HIV SCREENING Completed DATA REVIEWED: No new labs ASSESSMENT/PLAN: 1. Chronic obstructive pulmonary disease, unspecified COPD type (HCC) - ICD9: 496, ICD10: J44.9 (primary diagnosis) - much improved. Continue current medications and follow ups as ordered by pulmonology. Please callwith or bring in medications to next visit so we can verify appropriate inhalers and nebulizer medications are accurate on your home med list. 2. GERD without esophagitis - ICD9: 530.81, ICD10: K21.9 - Discussed lifestyle modifications including losing weight, limiting caffeine, no meals three hours before sleep and head of bed elevation - With Seeing ID for further treatment of chronic H-Pylori, will not change reflux medications at this time. - discussed with patient if medicaitons aren't changed, to contact me and we will evaluate for new changes to current PPI for reflux control. 3. Helicobacter pylori infection - ICD9: 041.86, ICD10: A04.8 As above Prescription instructions reviewed with patient as applicable. Potential red flag symptoms discussed with the patient. Reviewed appropriate action plan to take if red flag symptoms occur. Patient agreeable to treatment plan. Laura Hernandez APRN.CNP documented in this encounterCos[facility]06-[facility] Miscellaneous Notes* Telephone Encounter - Kymberly Myles - 12/12/2021 2:31 PM EDT Patient has been notified that cd is ready for pickup. Kymberly Myles PSS * Telephone Encounter - ALEXANDRA Roblero - 12/12/2021 11:59 AM EDT CD/ report READY FOR [facility] AT [facility] * Telephone Encounter - Park Mar Pss - 12/12/2021 9:31 AM EDT Patient calling requesting report and cd of xray of lumbar done on 11/17/21. Patient will pickup after 9:30 am tomorrow, 12/13. documented in this encounterCoshocton [facility]06-01-2022 Miscellaneous Notes* Telephone Encounter - Latasha Salamanca Ma - 12/07/2021 12:07 PM EDT Faxed to [facility]. * Telephone Encounter - Laura Hernandez APRN.CNP - 12/07/2021 11:04 AM EDT Please fax, last PFT, recent CT of chest, and my last note to [facility]. Patient has an appointment to establish there on Sunday. Also please have patient schedule a follow up with me in 2 weeks. Thank you Laura Hernandez APRN.CNP documented in this encounterCoshoct[facility]06-01-2022 Miscellaneous Notes* Telephone Encounter - Laura Hernandez APRN.CNP - 12/07/2021 11:03 AM EDT Noted. Laura Hernandez APRN.CNP * Telephone Encounter - Sonya Gill LPN - 12/07/2021 10:39 AM EDT Yes scheduled and appt with this Sunday at 10:45am. please review. Sonya Gill LPN * Telephone Encounter - Sonya Gill LPN - 12/07/2021 10:17 AM EDT ----- Message from Laura Hernandez APRN.CNP sent at 12/07/2021 9:16 AM EDT ----- Regarding: RE: Asthma/COPD Exacerbatio versus vocal cord dysfunction Please ask patient if she has been able to schedule an earlier pulmonology appointment with [facility]? If not please let her know Dr. Edwards might be able to see her in a few weeks, but with him retiring, the bronchoscopy he will recommend will be performed by someone else. Thank you Laura Hernandez APRN.CNP * Telephone Encounter - Laura Hernandez APRN.CNP - 12/07/2021 8:02 AM EDT Noted Laura Hernandez APRN.CNP * Telephone Encounter - Van Acevedo LPN - 12/02/2021 4:24 PM EDT Patient returned call and went over notes form Laura Hernandez POT ANNEALER with understanding. Aware rx to pharmacy. Patient said [facility] phoned her yesterday and said they would be calling her with an appt. * Telephone Encounter - Latasha Salamanca Ma - 12/02/2021 4:00 PM EDT Left message for return call. * Telephone Encounter - Laura Hernandez APRN.CNP - 12/02/2021 3:46 PM EDT Please call patient and ask if she would like us to try to get an earlier appointment with Dr. Perales in [place] which was recommended by Dr. Ruiz, or has she been able to get in with [facility]. I am also going to have her start tapering off of her prednisone. Prescription sent to pharmacy. Thank you Laura Hernandez APRN.CNP documented in this encounterCoshocton [facility]05-20-2022 History of Present illness Narrative* Dona Hsu APRN.CNP - 11/25/2021 3:31 PM EDT Yohannes is a 50 year old who presents for an annual gynecologic exam without complaints. Menses: na s/p hyst for benign disease. Contraception: hysterectomy HPV vaccine: No Last Pap: 10/27/2020 normal HPV: 10/27/2020 negative History of abnormal pap: Yes VAIN, neg pap and HPV last year Last mammogram: 2021 normal History of abnormal mammogram: No Sexually active: Yes History of STDS: None Patient concerns for STD exposure: No. 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 pylori infection cronic HISTORY OF CANCER OF UTERUS 06/11/2006 2004, Hysterectomy - complete Internal hemorrhoids Lung disease Migraines Snoring Tobacco use disorder 06/11/2006 Quit 09/2015. Unspecified asthma(493.90) Childhood diagnosis. PAST SURGICAL HISTORY Procedure Laterality Date APPENDECTOMY 1998 APPENDECTOMY COLONOSCOPY FLX DX W/COLLJ SPEC WHEN PFRMD 02/13/2020 Colonoscopy ESOPHAGOGASTRODUODENOSCOPY TRANSORAL DIAGNOSTIC 03/13/2017 EGD ESOPHAGOGASTRODUODENOSCOPY TRANSORAL DIAGNOSTIC 02/13/2020 EGD GASTRIC EMPTYING IMAG STUDY 02/17/2021 PAST SURGICAL HISTORY OF 2004 Lymph Node Bx 1999 TOTAL ABDOMINAL HYSTERECT W/WO RMVL TUBE OVARY 2004 and BSO - pelvic pain/benign VAGINAL HYSTERECTOMY FAMILY HISTORY Problem Relation Age of Onset Hypertension Mother Heart Mother Eczema Mother other (AAA) Mother other (Fibromyalgia) Mother Alcohol/Drug Father Alcohol Cancer Father lung Colon Cancer Father Hypertension Sister Asthma Sister other (Migraines) Sister other (Gout) Sister other (Fibromyalgia) Sister Breast Cancer Maternal Aunt 2 maternal aunts. other (MICRO PHOTOGRAPHER cancer) No Family History SOCIAL HISTORY Social History Tobacco Use Smoking status: Former Smoker Packs/day: 0.25 Years: 29.00 Pack years: 7.25 Types: Cigarettes Start date: 11/17/1986 Quit date: 11/23/2021 Smokeless tobacco: Never Used Vaping Use Vaping Use: Never used Substance Use Topics Alcohol use: Not Currently Comment: Rarely Drug use: No REVIEW OF SYSTEMS Abdomen: No abdominal pain, nausea, vomiting, diarrhea, or constipation. No bloating, early satiety, indigestion, or increased flatulence. Bladder: No dysuria, gross hematuria, urinary frequency, urinary urgency, or incontinence Breast: No breast lumps, nipple d/c, overlying skin changes, redness or skin retraction Allergies and current medication updated:Yes EXAM: Ht 5' 2 (1.58m) Wt 123 lb 3.2 oz (55.9kg) BMI 22.53 kg/(m^2). GENERAL: pleasant, female in no apparent distress HEENT: Normocephalic, atraumatic, mucus membranes moist and no lesions NECK: full range of motion DERMATOLOGY: Normal, without lesions, non-icteric and non-hirsute BREAST: soft, non-tender, symmetric, no dominant mass, normal nipple-areolar complex, no lymphadenopathy and no nipple discharge CHEST: Normal inspiratory effort ABDOMEN: soft, non-tender and no masses PELVIC: external genitalia normal, normal Bartholin's glands, urethra, [place]'s glands, no vulvar lesions, good vaginal support, physiologic discharge present, normal appearing perineal body and perianal region, cervix surgically absent BIMANUAL: no adnexal masses, non-tender and uterus surgically absent NEURO: alert and oriented x3 EXTREMITIES: normal ASSESSMENT/PLAN: 1) Health maintenance: Pap/HPV up to date. Mammogram ordered Mammogram up to date. 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 I have reviewed the Advanced Practice Registered Nurse (HOUSESMITH) Student's documentation and verified the findings in the note as written. Any additions or changes are noted in bold/italics. Signature: Dona Hsu Date: 11/25/2021 Time: 4:02 PM documented in this encounterCoshoct[facility]05-20-2022 History of Present illness Narrative* Laura Hernandez APRN.DUMPER - 11/25/2021 12:29 PM EDT CC: Patient presents with: Recheck: COPD follow up HPI Jane Steinberg is a 50 year old female who presents today for COPD follow-up with her . Was seen by this provider 2 days ago and started on steroids azythromycin, and spiriva inhaler. Was seen the week prior as well and was started on montelukast and consulted to pulmonology. Pulmonology unable to see her until February. Patient returns today thinking there might have been a decrease in wheezing but not much. Is very frustrated because she has been breathing this way for month and is even refraining from smoking which isn't helping. Has gone to ER numerous times but she says they just do a breathing treatment and send her home without improvement. Denies fever, chills, confusion, chest pain, malaise, dizziness, or any other concerns. REVIEW OF SYSTEMS See HPI PAST MEDICAL HISTORY Diagnosis Date Anorexia nervosa 06/11/2006 Stable; treated in past Anxiety Asthma Duggan's esophagus Bulimia nervosa 06/11/2006 Stable, treated in past Chest pain Chronic obstructive pulmonary disease (COPD) (HCC) Emphysema lung (HCC) Emphysema lung (HCC) GERD (gastroesophageal reflux disease) H. pylori infection cronic HISTORY OF CANCER OF UTERUS 06/11/2006 2004, Hysterectomy - complete Internal hemorrhoids Lung disease Migraines Snoring Tobacco use disorder 06/11/2006 Quit 09/2015. Unspecified asthma(493.90) Childhood diagnosis. PAST SURGICAL HISTORY Procedure Laterality Date APPENDECTOMY 1998 APPENDECTOMY COLONOSCOPY FLX DX W/COLLJ SPEC WHEN PFRMD 02/13/2020 Colonoscopy ESOPHAGOGASTRODUODENOSCOPY TRANSORAL DIAGNOSTIC 03/13/2017 EGD ESOPHAGOGASTRODUODENOSCOPY TRANSORAL DIAGNOSTIC 02/13/2020 EGD GASTRIC EMPTYING IMAG STUDY 02/17/2021 PAST SURGICAL HISTORY OF 2003 Lymph Node Bx 1999 TOTAL ABDOMINAL HYSTERECT W/WO RMVL TUBE OVARY 2004 and BSO - pelvic pain/benign VAGINAL HYSTERECTOMY ALLERGIES Penicillins MEDICATIONS tiotropium bromide (SPIRIVA RESPIMAT) 2.5 mcg/actuation inhaler Inhale 2 Puffs as instructed once daily. Inhale two puffs once daily. azithromycin (ZITHROMAX Z-NEEMA) 250 mg tablet Take 2 tablets day one, then, 1 tablet daily until gone. predniSONE (DELTASONE) 20 mg tablet Take 2 tablets by mouth once daily. pantoprazole DR (PROTONIX) 40 mg tablet Take 1 tablet by mouth twice daily. 30 minutes before meal. zolpidem (AMBIEN) 5 mg tablet Take 1 tablet by mouth at bedtime as needed for sedation for up to 30days. albuterol HFA (VENTOLIN HFA) 90 mcg/actuation inhaler Inhale 2 Puffs as instructed every 4 hours asneeded for wheezing/shortness of breath. montelukast (SINGULAIR) 10 mg tablet Take 1 tablet by mouth daily at bedtime. L. acidophilus-L. rhamnosus 15 billion cell cap Take 1 capsule by mouth once daily. FLORAJEN WOMEN.If on antibiotic, take at least 1-2 hours before or after antibiotic. KEEP REFRIGERATED fluticasone-salmeterol (ADVAIR DISKUS) 500-50 mcg/dose dsdv Inhale 1 Puff as instructed twice daily. Rinse and gargle mouth with water after use. aspirin, enteric coated (ASPIR-81) 81 mg EC tablet Take 1 tablet by mouth once daily. ergocalciferol 50,000 unit capsule (VITAMIN D2, DRISDOL) Take 1 capsule by mouth one time a week. ibuprofen (MOTRIN) 800 mg tablet Take 1 tablet by mouth every 8 hours as needed for pain. albuterol (PROVENTIL) 2.5 mg /3 mL (0.083 %) nebulizer solution Use 3 mL via nebulizer every 6 hours as needed. PHENYLephrine-cocoa butter (PREPARATION H,PE,CB,) 0.25-88.44 % supp 1 Suppository by RECTAL route once daily. dicyclomine (BENTYL) 10 mg capsule Take 1 capsule by mouth before meals and at bedtime. COMPACT SPACE CHAMBER as directed. ipratropium-albuterol (DUONEB) 0.5 mg-3 mg(2.5 mg base)/3 mL nebu Inhale 3 mL as instructed every 4hours as needed. PULSE OXIMETER CONTEC 1 Each as needed. Comp Stocking,Knee,Regular,Med misc 2 Each once daily. loratadine (CLARITIN) 10 mg tablet Take 1 tablet by mouth once daily. fluticasone (FLONASE) 50 mcg/actuation nasal spray Use 2 Sprays in each nostril once daily. Rinse mouth after use. FAMILY HISTORY Problem Relation Age of Onset Hypertension Mother Heart Mother Eczema Mother other (AAA) Mother other (Fibromyalgia) Mother Alcohol/Drug Father Alcohol Cancer Father lung Colon Cancer Father Hypertension Sister Asthma Sister other (Migraines) Sister other (Gout) Sister other (Fibromyalgia) Sister Breast Cancer Maternal Aunt 2 maternal aunts. other (MICRO PHOTOGRAPHER cancer) No Family History Social History Tobacco Use Smoking status: Current Every Day Smoker Packs/day: 0.25 Years: 29.00 Pack years: 7.25 Types: Cigarettes Start date: 11/17/1986 Smokeless tobacco: Never Used Vaping Use Vaping Use: Never used Substance Use Topics Alcohol use: Not Currently Comment: Rarely Drug use: No PHYSICAL EXAM BP 138/92 Pulse 60 Resp 20 SpO2 99% General Appearance: well appearing, in no acute distress, alert Eyes: conjunctiva pink and moist, no icterus, sclera white, non-injected Lungs: Lungs clear to auscultation. No wheezing, rhonchi, rales. Heart: RRR without murmur, gallop, or rubs. No ectopy Health maintenance reviewed with patient: SHINGRIX VACCINE(1 of 2) Never done PAP TESTING due on 10/22/2021 DTAP,TDAP,TD(6 - Tdap) due on 06/25/2022 COVID-19 VACCINE(3 - Booster for Pfizer series) due on 02/26/2022 MAMMOGRAM due on 11/18/2022 ANNUAL PCP TEAM CHRONIC DISEASE VISIT due on 11/25/2022 DIABETES SCREEN due on 11/18/2024 HPV TESTING due on 10/22/2025 LIPID SCREEN due on 11/18/2026 COLORECTAL CANCER SCREENING due on 02/12/2030 SPIROMETRY Completed ONE PNEUMOVAX PRIOR TO AGE 65 Completed INFLUENZA Completed HEPATITIS C SCREENING Completed HIV SCREENING Completed MENINGOCOCCAL CONJUGATE Aged Out DATA REVIEWED: No new labs ASSESSMENT/PLAN: 1. COPD with exacerbation (HCC) - ICD9: 491.21, ICD10: J44.1 (primary diagnosis) - patient without much improvement and I am very concerned about her even though she states she hasbeen like this for the past few months constantly. Discussed ER option with patient and her concerns and frustrations. Patient understanding and agrees that if there are any changes or increase in symptoms she must immediately go to ER. Discussed that oxygen status is normal at this time but my concern is her respiratory system wearing out which if this happens can quickly change. Patient and both state understanding and agreement - Prednisone increased. Patient states she has so much of it at home she would prefer to use what she already has. Increase Prednisone to 60mg for the next 3 days then 40mg for the next 2 days after. - Follow up next week - will fax consult to [facility] in hopes they can see patient earlier. 2. Shortness of breath - ICD9: 786.05, ICD10: R06.02 As above 3. Wheezing - ICD9: 786.07, ICD10: R06.2 As above Prescription instructions reviewed with patient as applicable. Potential red flag symptoms discussed with the patient. Reviewed appropriate action plan to take if red flag symptoms occur. Patient agreeable to treatment plan. Laura Hernandez APRN.CNP documented in this encounterCoshocton [facility]05-20-2022 Instructions* Patient Instructions* Laura Hernandez APRN.CNP - 11/25/2021 11:26 AM EDT Increase Prednisone to 60mg for the next 3 days then 40mg for the next 2 days after. Call pulmonology for hopefully earlier appointment. [facility] with Dr. Graham, Dr. Ruiz and Mickey Dixon CNP documented in this encounterCoshocton [facility]05-18-2022 Miscellaneous Notes* Telephone Encounter - Laura Hernandez APRN.CNP - 11/23/2021 5:59 PM EDT Prescription corrected and resent for 10 tablets. Thank you Laura Hernandez APRN.CNP * Telephone Encounter - Aaliyah Villarreal LPN - 11/23/2021 4:15 PM EDT Pt was seen today & given Rx for prednison. Pt states she understood she was to take 2 tabs daily X 5days. Rx was written to dispense #5 tabs instead of 10. Pt uses [facility]. Aaliyah Villarreal LPN documented in this encounterCoshocton [facility]05-18-2022 History of Present illness Narrative* Laura Hernandez APRN.CNP - 11/23/2021 2:16 PM EDT CC: Patient presents with: Recheck: COPD follow up HPI Jane Steinberg is a 50 year old female who presents today for COPD follow up. Was seen last weekand prescribed steroids, restarted on montelukast, and was ordered a pulmonology consult. CXR was normal. Currently using nebulizer every 4 hours and feels it is increasing in result to the hotter temperatures. Is keeping her house cold to make breathing easier. Has had air filter changed recently by . Has also refrained from smoking with the increase in SOB. Reports increase in wheezing, shortness of breath, nonproductive cough. Denies fever, chills, fatigue, or any other concerns. REVIEW OF SYSTEMS General: no fevers, no chills, no night sweats, no recurrent infections, no change in appetite, no change in energy and no significant changes in weight Respiratory: no cough, no wheezing, no shortness of breath, no hemoptysis Cardiovascular: no chest pain, no chest pressure, no palpitations and no swelling Neurologic: No headache, weakness, dizziness, syncope. PAST MEDICAL HISTORY Diagnosis Date Anorexia nervosa 06/11/2006 Stable; treated in past Anxiety Asthma Duggan's esophagus Bulimia nervosa 06/11/2006 Stable, treated in past Chest pain Chronic obstructive pulmonary disease (COPD) (HCC) Emphysema lung (HCC) Emphysema lung (HCC) GERD (gastroesophageal reflux disease) H. pylori infection cronic HISTORY OF CANCER OF UTERUS 06/11/20062003, Hysterectomy - complete Internal hemorrhoids Lung disease Migraines Snoring Tobacco use disorder 06/11/2006 Quit 09/2015. Unspecified asthma(493.90) Childhood diagnosis. PAST SURGICAL HISTORY Procedure Laterality Date APPENDECTOMY 1998 APPENDECTOMY COLONOSCOPY FLX DX W/COLLJ SPEC WHEN PFRMD 02/13/2020 Colonoscopy ESOPHAGOGASTRODUODENOSCOPY TRANSORAL DIAGNOSTIC 03/13/2017 EGD ESOPHAGOGASTRODUODENOSCOPY TRANSORAL DIAGNOSTIC 02/13/2020 EGD GASTRIC EMPTYING IMAG STUDY 02/17/2021 PAST SURGICAL HISTORY OF 2003 Lymph Node Bx 1999 TOTAL ABDOMINAL HYSTERECT W/WO RMVL TUBE OVARY 2004 and BSO - pelvic pain/benign VAGINAL HYSTERECTOMY ALLERGIES Penicillins MEDICATIONS pantoprazole DR (PROTONIX) 40 mg tablet Take 1 tablet by mouth twice daily. 30 minutes before meal. zolpidem (AMBIEN) 5 mg tablet Take 1 tablet by mouth at bedtime as needed for sedation for up to 30days. albuterol HFA (VENTOLIN HFA) 90 mcg/actuation inhaler Inhale 2 Puffs as instructed every 4 hours asneeded for wheezing/shortness of breath. montelukast (SINGULAIR) 10 mg tablet Take 1 tablet by mouth daily at bedtime. predniSONE (DELTASONE) 10 mg tablet Take 4 tabs daily x 3 days, then 3 tabs x 3 days, 2 tabs x 3 days, then 1 tab x3 days with food. L. acidophilus-L. rhamnosus 15 billion cell cap Take 1 capsule by mouth once daily. FLORAJEN WOMEN.If on antibiotic, take at least 1-2 hours before or after antibiotic. KEEP REFRIGERATED fluticasone-salmeterol (ADVAIR DISKUS) 500-50 mcg/dose dsdv Inhale 1 Puff as instructed twice daily. Rinse and gargle mouth with water after use. aspirin, enteric coated (ASPIR-81) 81 mg EC tablet Take 1 tablet by mouth once daily. ergocalciferol 50,000 unit capsule (VITAMIN D2, DRISDOL) Take 1 capsule by mouth one time a week. ibuprofen (MOTRIN) 800 mg tablet Take 1 tablet by mouth every 8 hours as needed for pain. albuterol (PROVENTIL) 2.5 mg /3 mL (0.083 %) nebulizer solution Use 3 mL via nebulizer every 6 hours as needed. PHENYLephrine-cocoa butter (PREPARATION H,PE,CB,) 0.25-88.44 % supp 1 Suppository by RECTAL route once daily. dicyclomine (BENTYL) 10 mg capsule Take 1 capsule by mouth before meals and at bedtime. COMPACT SPACE CHAMBER as directed. ipratropium-albuterol (DUONEB) 0.5 mg-3 mg(2.5 mg base)/3 mL nebu Inhale 3 mL as instructed every 4hours as needed. PULSE OXIMETER CONTEC 1 Each as needed. Comp Stocking,Knee,Regular,Med misc 2 Each once daily. loratadine (CLARITIN) 10 mg tablet Take 1 tablet by mouth once daily. fluticasone (FLONASE) 50 mcg/actuation nasal spray Use 2 Sprays in each nostril once daily. Rinse mouth after use. FAMILY HISTORY Problem Relation Age of Onset Hypertension Mother Heart Mother Eczema Mother other (AAA) Mother other (Fibromyalgia) Mother Alcohol/Drug Father Alcohol Cancer Father lung Colon Cancer Father Hypertension Sister Asthma Sister other (Migraines) Sister other (Gout) Sister other (Fibromyalgia) Sister Breast Cancer Maternal Aunt 2 maternal aunts. other (MICRO PHOTOGRAPHER cancer) No Family History Social History Tobacco Use Smoking status: Current Every Day Smoker Packs/day: 0.25 Years: 29.00 Pack years: 7.25 Types: Cigarettes Start date: 11/17/1986 Smokeless tobacco: Never Used Vaping Use Vaping Use: Never used Substance Use Topics Alcohol use: Not Currently Comment: Rarely Drug use: No PHYSICAL EXAM BP 130/72 Pulse 72 Resp 16 Wt 56.2 kg (124 lb) SpO2 97% BMI 23.43 kg/m General Appearance: well appearing, in no acute distress, alert Eyes: conjunctiva pink and moist, no icterus, sclera white, non-injected Lungs: Lungs with wheezing throughout, rhonchi, rales., no accessory muscle usage Heart: RRR without murmur, gallop, or rubs. No ectopy BUE Extremities: No deformities, edema, skin discoloration, clubbing or cyanosis. Good capillary refill. Health maintenance reviewed with patient: SHINGRIX VACCINE(1 of 2) Never done PAP TESTING due on 10/22/2021 DTAP,TDAP,TD(6 - Tdap) due on 06/25/2022 COVID-19 VACCINE(3 - Booster for Pfizer series) due on 02/26/2022 ANNUAL PCP TEAM CHRONIC DISEASE VISIT due on 11/17/2022 MAMMOGRAM due on 11/18/2022 DIABETES SCREEN due on 11/18/2024 HPV TESTING due on 10/22/2025 LIPID SCREEN due on 11/18/2026 COLORECTAL CANCER SCREENING due on 02/12/2030 SPIROMETRY Completed ONE PNEUMOVAX PRIOR TO AGE 65 Completed INFLUENZA Completed HEPATITIS C SCREENING Completed HIV SCREENING Completed MENINGOCOCCAL CONJUGATE Aged Out DATA REVIEWED: Most recent labs and imaging results. ASSESSMENT/PLAN: 1. COPD with exacerbation (HCC) - ICD9: 491.21, ICD10: J44.1 - No improvement and very concerning. Pulse ox normal and no accessory muscle usage on exam. Discussed with patient if she has any increase in shortness of breath, need for nebulizer, chest pain, or any other urgent concerns she needs to go immediately to ER. - prednisone as prescribed, added Zpack antibiotic since no improvement - Spiriva also added for daily prevention - Continue with plan to see pulmonology. - Follow up on Sunday unless symptoms worsened at any point and go to ER as discussed 2. Shortness of breath - ICD9: 786.05, ICD10: R06.02 As above 3. Wheezing - ICD9: 786.07, ICD10: R06.2 As above Prescription instructions reviewed with patient as applicable. Potential red flag symptoms discussed with the patient. Reviewed appropriate action plan to take if red flag symptoms occur. Patient agreeable to treatment plan. Laura Hernandez APRN.CNP documented in this encounterCos[facility]-13-[facility] History of Present illness Narrative* RT Brandon(R) - 11/18/2021 9:50 AM EDT Radiology Service Progress Note PATIENT NAME: Jane Steinberg DATE OF SERVICE: November 18, 2021 TIME: 9:02 AM PATIENT IDENTITY VERIFICATION COMPLETED USING TWO (2) IDENTIFIERS: Name and Date of confirmedby patient verbally. FALL SCREENING: Has the patient had 2 falls in the last year or 1 fall with injury or currently using an Ambulatory Assistive Device (Walker, Cane, Wheelchair, Crutches, etc.)? No PATIENT GENDER DATA: Female. status: : No status: NO. PATIENT RELEVANT IMPLANT DATA REVIEWED: Not Applicable RADIOLOGY DEPARTMENT: Mammography PERIPHERAL IV DATA: Not applicable SIGNED BY: RT Brandon(R) November 18, 2021 9:02 AM documented in this encounterCoshoct[facility]05-13-2022 Miscellaneous Notes* Letter - Mammography Coordinator - 11/18/2021 9:45 AM EDT November 18, 2021 PID: [id number] Jane Steinberg [address] [place], [place] [id number] Dear Ms. Steinberg, We are pleased to inform you that the results of your recent breast imaging exam on 11/18/2021 are normal. Your mammogram demonstrates that you have dense breast tissue, which could hide abnormalities. Dense breast tissue, in and of itself, is a relatively common condition. Therefore, this information is not provided to cause undue concern; rather, it is to raise your awareness and promote discussion with your health care provider regarding the presence of dense breast tissue in addition to other riskfactors. Early detection of cancer is very important. We also understand recommendations regarding breast cancer screening are controversial. Please discuss with your primary care provider which strategy is best for you and whether a mammogram is right for you. Your imaging studies and report will be kept on file at [facility] as part of your permanent medical record and are available for your continuing care. Thank you for allowing us to help in meeting your health care needs. Sincerely, Dr. Edouard Interpreting Radiologist [facility] (Normal over 40) documented in this encounterCoshocton [facility]05-12-2022 History of Present illness Narrative* Laura Hernandez, HOUSESMITH.DUMPER - 11/17/2021 12:55 PM EDT CC: Patient presents with: Recheck: Follow up HPI Jane Steinberg is a 50 year old female who presents today for routine follow up on COPD and Insomnia. Chronic H-pylori infection - had multiple treatments by gastroenterology without cure - wants to see a non [facility] specialist for this. Insomnia: Does not take this every night. Will take if she has to lay in bed for a few hours without sleeping. This medication works well for insomnia and sleeps 8 hours with feeling rested in the AM. COPD: Uses advair diskus as prescribed and uses as prescribed. Uses emergency inhaler twice a week and nebulizer nightly. Has noticed the increase need for nebulizer for the past few months. Was muchworse and ended up in ER at [facility] a little over a month ago and was put on a steroid burst dosage unknown. Continues to smoke but has cut back to less than half a pack a day. Reports increase in wheezing and shortness of breath. Denies fever, cough, chest pain, palpitations, or edema. Reports neck and bilateral shoulder pain for the past few days with a sensation of being very tight. Icy hot rub, heat ice, is not helpful. Woke up this and wakes up at night from the pain. Denies injury, edema, weakness decreased ROM, or recent infection. Has had occaisional tingling to arms that comes and goes but is not new and has not increased. REVIEW OF SYSTEMS General: no fevers, no chills, no night sweats, no recurrent infections, no change in appetite, no change in energy and no significant changes in weight Respiratory: See HPI Cardiovascular: no chest pain, no chest pressure, no palpitations and no swelling Musculoskeletal: See HPI Neurologic: No headache, weakness, dizziness, syncope. PAST MEDICAL HISTORY Diagnosis Date Anorexia nervosa 06/11/2006 Stable; treated in past Anxiety Asthma Duggan's esophagus Bulimia nervosa 06/11/2006 Stable, treated in past Chest pain Chronic obstructive pulmonary disease (COPD) (HCC) Emphysema lung (HCC) Emphysema lung (HCC) GERD (gastroesophageal reflux disease) H. pylori infection cronic HISTORY OF CANCER OF UTERUS 06/11/20062003, Hysterectomy - complete Internal hemorrhoids Lung disease Migraines Snoring Tobacco use disorder 06/11/2006 Quit 09/2015. Unspecified asthma(493.90) Childhood diagnosis. PAST SURGICAL HISTORY Procedure Laterality Date APPENDECTOMY 1998 APPENDECTOMY COLONOSCOPY FLX DX W/COLLJ SPEC WHEN PFRMD 02/13/2020 Colonoscopy ESOPHAGOGASTRODUODENOSCOPY TRANSORAL DIAGNOSTIC 03/13/2017 EGD ESOPHAGOGASTRODUODENOSCOPY TRANSORAL DIAGNOSTIC 02/13/2020 EGD GASTRIC EMPTYING IMAG STUDY 02/17/2021 PAST SURGICAL HISTORY OF 2003 Lymph Node Bx 1999 TOTAL ABDOMINAL HYSTERECT W/WO RMVL TUBE OVARY 2004 and BSO - pelvic pain/benign VAGINAL HYSTERECTOMY ALLERGIES Penicillins MEDICATIONS L. acidophilus-L. rhamnosus 15 billion cell cap Take 1 capsule by mouth once daily. FLORAJEN WOMEN.If on antibiotic, take at least 1-2 hours before or after antibiotic. KEEP REFRIGERATED pantoprazole DR (PROTONIX) 40 mg tablet Take 1 tablet by mouth twice daily. 30 minutes before meal. zolpidem (AMBIEN) 5 mg tablet Take 1 tablet by mouth at bedtime as needed for sedation for up to 30days. fluticasone-salmeterol (ADVAIR DISKUS) 500-50 mcg/dose dsdv Inhale 1 Puff as instructed twice daily. Rinse and gargle mouth with water after use. albuterol HFA (VENTOLIN HFA) 90 mcg/actuation inhaler Inhale 2 Puffs as instructed every 4 hours asneeded for wheezing/shortness of breath. cyclobenzaprine (FLEXERIL) 10 mg tablet Take 0.5-1 tablets by mouth three times daily as needed formuscle spasm. aspirin, enteric coated (ASPIR-81) 81 mg EC tablet Take 1 tablet by mouth once daily. ergocalciferol 50,000 unit capsule (VITAMIN D2, DRISDOL) Take 1 capsule by mouth one time a week. ibuprofen (MOTRIN) 800 mg tablet Take 1 tablet by mouth every 8 hours as needed for pain. albuterol (PROVENTIL) 2.5 mg /3 mL (0.083 %) nebulizer solution Use 3 mL via nebulizer every 6 hours as needed. PHENYLephrine-cocoa butter (PREPARATION H,PE,CB,) 0.25-88.44 % supp 1 Suppository by RECTAL route once daily. dicyclomine (BENTYL) 10 mg capsule Take 1 capsule by mouth before meals and at bedtime. COMPACT SPACE CHAMBER as directed. tiotropium (SPIRIVA) 18 mcg inhalation capsule Inhale as instructed. montelukast (SINGULAIR) 10 mg tablet q 24 HR. tiZANidine (ZANAFLEX) 4 mg tablet Take 1 tablet by mouth at bedtime as needed (muscle spasms). ipratropium-albuterol (DUONEB) 0.5 mg-3 mg(2.5 mg base)/3 mL nebu Inhale 3 mL as instructed every 4hours as needed. PULSE OXIMETER CONTEC 1 Each as needed. Comp Stocking,Knee,Regular,Med misc 2 Each once daily. loratadine (CLARITIN) 10 mg tablet Take 1 tablet by mouth once daily. fluticasone (FLONASE) 50 mcg/actuation nasal spray Use 2 Sprays in each nostril once daily. Rinse mouth after use. FAMILY HISTORY Problem Relation Age of Onset Hypertension Mother Heart Mother Eczema Mother other (AAA) Mother other (Fibromyalgia) Mother Alcohol/Drug Father Alcohol Cancer Father lung Colon Cancer Father Hypertension Sister Asthma Sister other (Migraines) Sister other (Gout) Sister other (Fibromyalgia) Sister Breast Cancer Maternal Aunt 2 maternal aunts. other (MICRO PHOTOGRAPHER cancer) No Family History Social History Tobacco Use Smoking status: Current Every Day Smoker Packs/day: 0.25 Years: 29.00 Pack years: 7.25 Types: Cigarettes Start date: 11/17/1986 Smokeless tobacco: Never Used Vaping Use Vaping Use: Never used Substance Use Topics Alcohol use: Not Currently Comment: Rarely Drug use: No PHYSICAL EXAM BP 118/80 Pulse 72 Resp 16 Wt 55.3 kg (122 lb) BMI 23.05 kg/m General Appearance: well appearing, in no acute distress, alert Eyes: conjunctiva pink and moist, no icterus, sclera white, non-injected Neck: Thyroid normal size and symmetric without palpable nodules, Neck supple, No adenopathy Lymph nodes: No cervical lymphadenopathy and No supraclavicular lymphadenopathy Lungs: Inspiratory and expiratory wheezes throughout bilaterally prior to nebulizer treatment - post nebulizer, wheezes still noted but lessened. Breathing also slowed and patient appeared more comfortable. Heart: RRR without murmur, gallop, or rubs. No ectopy Neck: Inspection: aniyah Palpation: nontender ROM: Normal Musculoskeletal: Bilateral shoulder: normal to inspection. no tenderness with palpation ROM: normal.Muscle strength: 5/5 upper, bilaterally Health maintenance reviewed with patient: SHINGRIX VACCINE(1 of 2) Never done MAMMOGRAM due on 10/22/2021 PAP TESTING due on 10/22/2021 DTAP,TDAP,TD(6 - Tdap) due on 06/25/2022 COVID-19 VACCINE(3 - Booster for Pfizer series) due on 02/26/2022 ANNUAL PCP TEAM CHRONIC DISEASE VISIT due on 06/25/2022 DIABETES SCREEN due on 11/25/2023 LIPID SCREEN due on 09/16/2024 HPV TESTING due on 10/22/2025 COLORECTAL CANCER SCREENING due on 02/12/2030 SPIROMETRY Completed ONE PNEUMOVAX PRIOR TO AGE 65 Completed INFLUENZA Completed HEPATITIS C SCREENING Completed HIV SCREENING Completed MENINGOCOCCAL CONJUGATE Aged Out DATA REVIEWED: No new labs ASSESSMENT/PLAN: 1. COPD with exacerbation (HCC) - ICD9: 491.21, ICD10: J44.1 (primary diagnosis) - albuterol nebulizer in office - ALBUTEROL SULFATE HFA 90 MCG/ACTUATION AEROSOL INHALER - CONSULT TO PULMONARY MEDICINE - XR CHEST 2V FRONTAL/LAT - Prednisone as prescribed. - Follow up next week - go to ER for increased SOB, chest pain, lethargy, fever, or any other urgent concerns. - Refrain from smoking. 2. Shortness of breath - ICD9: 786.05, ICD10: R06.02 As above - XR CHEST 2V FRONTAL/LAT 3. Wheezing - ICD9: 786.07, ICD10: R06.2 As above - XR CHEST 2V FRONTAL/LAT 4. Insomnia, unspecified type - ICD9: 780.52, ICD10: G47.00 - controlled - ZOLPIDEM 5 MG TABLET 5. Vitamin D deficiency - ICD9: 268.9, ICD10: E55.9 - VITAMIN D 25 HYDROXY 6. Lipid screening - ICD9: V77.91, ICD10: Z13.220 - COMP METABOLIC PANEL - LIPID PANEL BASIC 7. Medication management - ICD9: V58.69, ICD10: Z79.899 - COMP METABOLIC PANEL - CBC + DIFF 8. Encounter for screening mammogram for malignant neoplasm of breast - ICD9: V76.12, ICD10: Z12.31 - DELTA SCREENING 9. Acute pain of both shoulders - ICD9: 719.41, ICD10: M25.511, M25.512 - no injury or concern on exam - feel that the tightness and ache is related to her difficulty breathing from COPD exacerbation. Prescription instructions reviewed with patient as applicable. Potential red flag symptoms discussed with the patient. Reviewed appropriate action plan to take if red flag symptoms occur. Patient agreeable to treatment plan. Laura Hernandez APRN.KACY documented in this encounterCosho[facility]05-05-2022 Miscellaneous Notes* Addendum Note - Roselyn Tobar PA-C - 11/10/2021 11:38 AM EDT Addended by: ROSELYN TOBAR on: 11/10/2021 11:38 AM Modules accepted: Orders documented in this encounterCoshocton [facility]04-05-2022 Miscellaneous Notes* Telephone Encounter - Roselyn Tobar PA-C - 10/11/2021 9:04 AM EDT First tested positive for H. Pylori 02/2020. Regimens attempted in the past include quadruple, triple, Doxy containing, Levaquin containing. Levaquin tx confirmed eradication 12/2020. Pt exhibited symptoms again and stool testing 06/2021 was negative. Follow up EGD showed H. Pylori positive 10/06/2021. Discussed findings with pt advised Rifabutin containing regimen and to repeat stool 4 weeks after finishing tx. Avoid EtOH while on regimen. Is to stop Carafate, Protonix, and Maalox. Follow up in GI office as scheduled. Roselyn Tobar PA-C documented in this encounterCoshocton [facility]04-01-2022 Miscellaneous Notes* Telephone Encounter - Kalli Apodaca Ma - 10/07/2021 5:27 PM EDT Patient call, having some burning in esophagus/stomach post EGD, is using carafate bid and pantoprazole. Biopsy pending. Suggested Maalox for interim. Kalli Apodaca VISITING NURSE documented in this encounterCoshocton [facility]03-31-2022 Miscellaneous Notes* Operative Report - Charles Riggs MD - 10/06/2021 9:24 AM EDT OPERATIVE/PROCEDURE REPORT LOG ID: [id number] Surgery/Procedure Date: Incision/Procedure Start Time: 9:37 AM Incision Close/Procedure End Time: 9:43 AM Surgeon(s)/Proceduralist(s) and Back End Web Developer(s): * No surgeons found in log * No Additional Staff Procedure(s): Esophagogastroduodenoscopy (EGD) with biopsy Anesthesia: Monitored anesthesia care (MAC) Brief History: 50/F with c/o- abdominal pain for EGD Procedure Details: The patient was placed in the left lateral decubitus position. A bite block was placed and medications administered as above. The Olympus gastroscope was used to intubate the oropharynx and esophagus with ease. Esophagus- No strictures; mucosa unremarkable; Diaphragmatic indentation at 38 cm, GE junction at 38 cm and Squamocolumnar junction at 38 cm from incisors. Biopsy obtained from GE junction Stomach- Cardia- No masses Body- normal Antrum- normal Fundus (during retroflexion)- normal Biopsy obtained Duodenum- Bulb- normal; Second part- normal Biopsy obtained The scope was then withdrawn and the patient tolerated the procedure well. Pre-Op/Pre-Procedure Diagnosis: Abdominal pain Post-Op/Post-Procedure Diagnosis: Normal gastroscopy. Biopsies taken to rule out H. Pylori and celiac disease. Biopsy obtained from GE junction to r/o- Duggan's Specimens: See above EBL: None Complications: None Recommendations: Continue current medications Follow up pathology Follow up in GI clinic I/primary surgeon/proceduralist performed the procedure with assistance. Charles Riggs MD SIGNATURE: Charles Riggs MD PATIENT NAME: Jane Steinberg DATE: October 06, 2021 TIME: 9:49 AM PAGER/CONTACT #: [phone] documented in this encounterCoshocton [facility]03-30-2022 Miscellaneous Notes* Addendum Note - Roselyn Tobar PA-C - 10/05/2021 11:17 AM EDT Addended by: ROSELYN TOBAR on: 10/05/2021 11:17 AM Modules accepted: Orders * Addendum Note - Roselyn Tobar PA-C - 10/05/2021 11:15 AM EDT Addended by: ROSELYN TOBAR on: 10/05/2021 11:15 AM Modules accepted: Orders documented in this encounterCoshocton [facility]03-30-2022 Instructions* Patient Instructions* Roselyn Tobar PA-C - 10/05/2021 10:56 AM EDT Chew all foods thoroughly and avoid tough meats, nuts, seeds, raw fruits and vegetables and dried fruit. Please go to ER if food is getting stuck and not completely passing through esophagus or trouble breathing occurs. Some soft diet food alternatives are included below: Hot cereal, [id number] cereal soaked in milk, canned fruit, soft cooked vegetables, juice, scrambled eggs, ground meat, cooked beans, cooked peas, cottage cheese, yogurt without fruit, custards, puddings, cream soups, noodles Calorie/nutrient rich drinks such as Boost/Ensure as appropriate for weight control Drink water with meals and take sips periodically to keep hydrated and help food pass down esophagus Gargle with warm salt water to help reduce any swelling or irritation that may be causing the difficulty in swallowing Oral lozenges can help eliminate dryness because this increases saliva production documented in this encounterCoshocton [facility] Center03-30-2022 History of Present illness Narrative* Roselyn Tobar PA-C - 10/05/2021 10:21 AM EDT CHIEF COMPLAINT: Patient presents with: Acid reflux: Abdominal pain. XR 06/25/21 H pylori 06/28/21 HPI Jane Steinberg is a 50 year old female PMHx positive for anorexia nervosa/bulimia (s/p treatment), uterine CA (s/p hysterectomy 2005), anxiety, asthma, Duggan's, COPD, GERD, here today for Acid reflux (Abdominal pain. XR 06/25/21 H pylori 06/28/21). Seen last in GI office for chronic RUQ pain, B kamariett's confirmed on EGD 02/2020. H pylori stool, KUB were both negative 06/2021. Has received GES, HIDA in the past for RUQ pain which were unremarkable. Tried switching from Protonix to Nexium with returning symptoms so she started back on Protonix 40 mg BID. Started having mid-esophageal dysphagia for the past day with solids and liquids. Some mild persistent RUQ pain. Taking Miralax daily with good relief in bowel movements, no blood in stools. Denies NSAID usage. OV 06/22/2021 Jane Steinberg is a 50 year old female PMHx positive for anorexia nervosa/bulimia (s/p treatment), uterine CA (s/p hysterectomy 2005), anxiety, asthma, Duggan's, COPD, GERD, here today for Recheck (Early satiety, nausea, RUQ abdominal pain- GES 02/17/21). Received GES, HIDA in the past few mos both of which were normal. Still not feeling much improvement. Having postprandial RUQ pains associated with heartburn. Protonix BID not working well for heartburn anymore. BMs are every 2 days, loose to formed, no blood. Takes Miralax PRN with relief. Last formed stool was yesterday. Tested positivefor COVID last month. Received antibody injections for COVID per PCP last month. Denies unintentional weight loss. HIDA 04/28/2021 IMPRESSION: 1 Gallbladder is visualized. Patent cystic and common bile ducts. No scintigraphic evidence of acute cholecystitis. 2. Normal Gallbladder ejection fraction GES 02/17/2021 IMPRESSION IMPRESSION: NORMAL RATE OF GASTRIC EMPTYING OF SOLID MEAL Current Outpatient Medications Medication Sig L. acidophilus-L. rhamnosus 15 billion cell cap Take 1 capsule by mouth once daily. FLORAJEN WOMEN.If on antibiotic, take at least 1-2 hours before or after antibiotic. KEEP REFRIGERATED pantoprazole DR (PROTONIX) 40 mg tablet Take 1 tablet by mouth twice daily. 30 minutes before meal. zolpidem (AMBIEN) 5 mg tablet Take 1 tablet by mouth at bedtime as needed for sedation for up to 30days. fluticasone-salmeterol (ADVAIR DISKUS) 500-50 mcg/dose dsdv Inhale 1 Puff as instructed twice daily. Rinse and gargle mouth with water after use. albuterol HFA (VENTOLIN HFA) 90 mcg/actuation inhaler Inhale 2 Puffs as instructed every 4 hours asneeded for wheezing/shortness of breath. cyclobenzaprine (FLEXERIL) 10 mg tablet Take 0.5-1 tablets by mouth three times daily as needed formuscle spasm. aspirin, enteric coated (ASPIR-81) 81 mg EC tablet Take 1 tablet by mouth once daily. ergocalciferol 50,000 unit capsule (VITAMIN D2, DRISDOL) Take 1 capsule by mouth one time a week. ibuprofen (MOTRIN) 800 mg tablet Take 1 tablet by mouth every 8 hours as needed for pain. albuterol (PROVENTIL) 2.5 mg /3 mL (0.083 %) nebulizer solution Use 3 mL via nebulizer every 6 hours as needed. PHENYLephrine-cocoa butter (PREPARATION H,PE,CB,) 0.25-88.44 % supp 1 Suppository by RECTAL route once daily. (Patient taking differently: 1 Suppository by RECTAL route as needed. ) dicyclomine (BENTYL) 10 mg capsule Take 1 capsule by mouth before meals and at bedtime. COMPACT SPACE CHAMBER as directed. tiotropium (SPIRIVA) 18 mcg inhalation capsule Inhale as instructed. montelukast (SINGULAIR) 10 mg tablet q 24 HR. tiZANidine (ZANAFLEX) 4 mg tablet Take 1 tablet by mouth at bedtime as needed (muscle spasms). ipratropium-albuterol (DUONEB) 0.5 mg-3 mg(2.5 mg base)/3 mL nebu Inhale 3 mL as instructed every 4hours as needed. PULSE OXIMETER CONTEC 1 Each as needed. Comp Stocking,Knee,Regular,Med misc 2 Each once daily. loratadine (CLARITIN) 10 mg tablet Take 1 tablet by mouth once daily. fluticasone (FLONASE) 50 mcg/actuation nasal spray Use 2 Sprays in each nostril once daily. Rinse mouth after use. No current facility-administered medications for this visit. ALLERGIES Allergen Reactions Penicillins Anaphylaxis Social History Tobacco Use Smoking status: Current Every Day Smoker Packs/day: 0.25 Years: 29.00 Pack years: 7.25 Types: Cigarettes Start date: 11/17/1986 Smokeless tobacco: Never Used Vaping Use Vaping Use: Never used Substance Use Topics Alcohol use: Not Currently Comment: Rarely Drug use: No PAST MEDICAL HISTORY Diagnosis Date Anorexia nervosa 06/11/2006 Stable; treated in past Anxiety Asthma Duggan's esophagus Bulimia nervosa 06/11/2006 Stable, treated in past Chest pain Chronic obstructive pulmonary disease (COPD) (HCC) Emphysema lung (HCC) Emphysema lung (HCC) GERD (gastroesophageal reflux disease) H. pylori infection cronic HISTORY OF CANCER OF UTERUS 06/11/2006 2004, Hysterectomy - complete Internal hemorrhoids Lung disease Migraines Snoring Tobacco use disorder 06/11/2006 Quit 09/2015. Unspecified asthma(493.90) Childhood diagnosis. PAST SURGICAL HISTORY Procedure Laterality Date APPENDECTOMY 1998 APPENDECTOMY COLONOSCOPY FLX DX W/COLLJ SPEC WHEN PFRMD 02/13/2020 Colonoscopy ESOPHAGOGASTRODUODENOSCOPY TRANSORAL DIAGNOSTIC 03/13/2017 EGD ESOPHAGOGASTRODUODENOSCOPY TRANSORAL DIAGNOSTIC 02/13/2020 EGD GASTRIC EMPTYING IMAG STUDY 02/17/2021 PAST SURGICAL HISTORY OF 2004 Lymph Node Bx 1999 TOTAL ABDOMINAL HYSTERECT W/WO RMVL TUBE OVARY 2004 and BSO - pelvic pain/benign VAGINAL HYSTERECTOMY FAMILY HISTORY Problem Relation Age of Onset Hypertension Mother Heart Mother Eczema Mother other (AAA) Mother other (Fibromyalgia) Mother Alcohol/Drug Father Alcohol Cancer Father lung Colon Cancer Father Hypertension Sister Asthma Sister other (Migraines) Sister other (Gout) Sister other (Fibromyalgia) Sister Breast Cancer Maternal Aunt 2 maternal aunts. other (MICRO PHOTOGRAPHER cancer) No Family History REVIEW OF SYSTEMS Review of Systems HENT: Positive for trouble swallowing. Respiratory: Positive for cough and wheezing. Cardiovascular: Positive for chest pain. Gastrointestinal: Heartburn All other systems reviewed and are negative. PHYSICAL EXAM BP 112/70 Pulse 80 Ht 5' 1 (1.55m) Wt 124 lb (56.2kg) BMI 23.44 kg/(m^2). Physical Exam Constitutional: General: She is not in acute distress. Appearance: Normal appearance. She is normal weight. She is not ill-appearing, toxic-appearing or diaphoretic. HENT: Head: Normocephalic and atraumatic. Nose: Nose normal. Eyes: General: No scleral icterus. Right eye: No discharge. Left eye: No discharge. Extraocular Movements: Extraocular movements intact. Conjunctiva/sclera: Conjunctivae normal. Pupils: Pupils are equal, round, and reactive to light. Cardiovascular: Rate and Rhythm: Normal rate and regular rhythm. Pulses: Normal pulses. Heart sounds: Normal heart sounds. No murmur heard. No friction rub. No gallop. Pulmonary: Effort: No respiratory distress. Breath sounds: No stridor. Wheezing (bilateral lower lobes) and rales (bilateral lower lobes) present. No rhonchi. Chest: Chest wall: No tenderness. Abdominal: General: Abdomen is flat. Bowel sounds are normal. There is no distension. Palpations: Abdomen is soft. There is no mass. Tenderness: There is no abdominal tenderness. There is no right CVA tenderness, left CVA tenderness, guarding or rebound. Hernia: No hernia is present. Musculoskeletal: General: Normal range of motion. Cervical back: Normal range of motion and neck supple. Skin: General: Skin is warm and dry. Neurological: General: No focal deficit present. Mental Status: She is alert and oriented to person, place, and time. Psychiatric: Mood and Affect: Mood normal. Behavior: Behavior normal. Assessment/Plan (R10.11, G89.29) Chronic RUQ pain (primary encounter diagnosis) (K22.70) 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 (K59.09) Other constipation 1. Chronic RUQ pain - EGD DIAGNOSTIC; Future - sucralfate (CARAFATE) 1 gram tablet; Take 1 tablet by mouth twice daily. Crush and mix with smalltablespoon of applesauce. Dispense: 60 tablet; Refill: 0 - Bentyl PRN - Has had unremarkable CT abd, HIDA, GES in the past year that were all negative 2. 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 - EGD DIAGNOSTIC; Future - sucralfate (CARAFATE) 1 gram tablet; Take 1 tablet by mouth twice daily. Crush and mix with smalltablespoon of applesauce. Dispense: 60 tablet; Refill: 0 - Continue Protonix 40 mg BID - Start carafate BID - EGD +/- dilaiton, eval for Duggan's changes - Follow reflux precautions - Avoid NSAIDs - Is working with PCP on smoking cessation. Advised f/u with PCP due to wheezing auscultated on PE today, has appointment in October, will obtain CXR Chew all foods thoroughly and avoid tough meats, nuts, seeds, raw fruits and vegetables and dried fruit. Please go to ER if food is getting stuck and not completely passing through esophagus or trouble breathing occurs. Some soft diet food alternatives are included below: Hot cereal, abjhj-jz-rue cereal soaked in milk, canned fruit, soft cooked vegetables, juice, scrambled eggs, ground meat, cooked beans, cooked peas, cottage cheese, yogurt without fruit, custards, puddings, cream soups, noodles Calorie/nutrient rich drinks such as Boost/Ensure as appropriate for weight control Drink water with meals and take sips periodically to keep hydrated and help food pass down esophagus Gargle with warm salt water to help reduce any swelling or irritation that may be causing the difficulty in swallowing Oral lozenges can help eliminate dryness because this increases saliva production 3. Other constipation - Doing well with Miralax full cap daily - Drink plenty of fluids Recommended to please call office/go to ER if fever, chills, chest pain, SOB, diarrhea, nausea, emesis, worsening abdominal pain, dehydration occurs I spent 10 minutes in the visit, with more than 50% of the total [id number] time of the visit in counseling / coordination of care. I have confirmed and edited as necessary, the PFSH and ROS obtained by others. Roselyn Tobar PA-C October 05, 2021 11:00 AM documented in this encounter[facility] History of Present illness Narrative* Brady Menendez RT(R) - 06/25/2021 12:00 PM EST Radiology Service Progress Note PATIENT NAME: Jane Steinberg DATE OF SERVICE: June 25, 2021 TIME: 11:55 AM PATIENT IDENTITY VERIFICATION COMPLETED USING TWO (2) IDENTIFIERS: Name and Date of confirmedby patient verbally. FALL SCREENING: Has the patient had 2 falls in the last year or 1 fall with injury or currently using an Ambulatory Assistive Device (Walker, Cane, Wheelchair, Crutches, etc.)? No PATIENT GENDER DATA: Female. status: : No status: NO. PATIENT RELEVANT IMPLANT DATA REVIEWED: Yes RADIOLOGY DEPARTMENT: General X-ray: Exam(s) Completed: Abdomen X-Ray: Abdomen PERIPHERAL IV DATA: Not applicable SIGNED BY: RT Emilia(R) June 25, 2021 11:55 AM documented in this encounterCos[facility]11[facility] History of Present illness Narrative* Mikael Stubbs (Rt), Tech - 05/12/2020 3:10 PM EST Radiology Service Progress Note PATIENT NAME: Jane Gutierrez DATE OF SERVICE: May 12, 2020 TIME: 3:14 PM PATIENT IDENTITY VERIFICATION COMPLETED USING TWO (2) IDENTIFIERS: Name and Date of confirmedby patient verbally. FALL SCREENING: Has the patient had 2 falls in the last year or 1 fall with injury or currently using an Ambulatory Assistive Device (Walker, Cane, Wheelchair, Crutches, etc.)? No PATIENT GENDER DATA: Female. status: : No status: NO. PATIENT RELEVANT IMPLANT DATA REVIEWED: Not Applicable RADIOLOGY DEPARTMENT: General X-ray: Exam(s) Completed: Chest X-Ray PERIPHERAL IV DATA: Not applicable SIGNED BY: RT Trisha May 12, 2020 3:14 PM documented in this encounterCos[facility] History of Past illness Narrative* Problem Noted Date Resolved Date Chest pain 01/16/2017 01/17/2017 HISTORY OF CANCER OF UTERUS 06/11/200605/09 Overview: 2003, Hysterectomy - complete Edema 06/11/2006 05/18/2016 documented as of this encounter (statuses as of 10/05/2021) [facility] Narrative* Problem Noted Date Resolved Date Chest pain 01/16/2017 01/17/2017 HISTORY OF CANCER OF UTERUS 06/11/200605/09 Overview: 2003, Hysterectomy - complete Edema 06/11/2006 05/18/2016 documented as of this encounter (statuses as of 10/07/2021) [address]11-2017 History of Past illness Narrative* Problem Noted Date Resolved Date Chest pain 01/16/2017 01/17/2017 HISTORY OF CANCER OF UTERUS 06/11/200605/09 Overview: 2003, Hysterectomy - complete Edema 06/11/2006 05/18/2016 documented as of this encounter (statuses as of 10/07/2021) [facility] Narrative* Problem Noted Date Resolved Date Chest pain 01/16/2017 01/17/2017 HISTORY OF CANCER OF UTERUS 06/11/200605/09 Overview: 2003, Hysterectomy - complete Edema 06/11/2006 05/18/2016 documented as of this encounter (statuses as of 10/11/2021) [address]11-2017 History of Past illness Narrative* Problem Noted Date Resolved Date Chest pain 01/16/2017 01/17/2017 HISTORY OF CANCER OF UTERUS 06/11/200605/09 Overview: 2003, Hysterectomy - complete Edema 06/11/2006 05/18/2016 documented as of this encounter (statuses as of 10/14/2021) [facility] Narrative* Problem Noted Date Resolved Date Chest pain 01/16/2017 01/17/2017 HISTORY OF CANCER OF UTERUS 06/11/200605/09 Overview: 2003, Hysterectomy - complete Edema 06/11/2006 05/18/2016 documented as of this encounter (statuses as of 10/14/2021) [facility] Narrative* Problem Noted Date Resolved Date Chest pain 01/16/2017 01/17/2017 HISTORY OF CANCER OF UTERUS 06/11/200605/09 Overview: 2003, Hysterectomy - complete Edema 06/11/2006 05/18/2016 documented as of this encounter (statuses as of 11/10/2021) [address]11-2017 History of Past illness Narrative* Problem Noted Date Resolved Date Chest pain 01/16/2017 01/17/2017 HISTORY OF CANCER OF UTERUS 06/11/200605/09 Overview: 2003, Hysterectomy - complete Edema 06/11/2006 05/18/2016 documented as of this encounter (statuses as of 11/17/2021) [address]11-2017 History of Past illness Narrative* Problem Noted Date Resolved Date Chest pain 01/16/2017 01/17/2017 HISTORY OF CANCER OF UTERUS 06/11/200605/09 Overview: 2003, Hysterectomy - complete Edema 06/11/2006 05/18/2016 documented as of this encounter (statuses as of 11/19/2021) [address]11-2017 History of Past illness Narrative* Problem Noted Date Resolved Date Chest pain 01/16/2017 01/17/2017 HISTORY OF CANCER OF UTERUS 06/11/200605/09 Overview: 2003, Hysterectomy - complete Edema 06/11/2006 05/18/2016 documented as of this encounter (statuses as of 11/21/2021) [facility] Narrative* Problem Noted Date Resolved Date Chest pain 01/16/2017 01/17/2017 HISTORY OF CANCER OF UTERUS 06/11/200605/09 Overview: 2003, Hysterectomy - complete Edema 06/11/2006 05/18/2016 documented as of this encounter (statuses as of 11/22/2021) [facility] Narrative* Problem Noted Date Resolved Date Chest pain 01/16/2017 01/17/2017 HISTORY OF CANCER OF UTERUS 06/11/200605/09 Overview: 2003, Hysterectomy - complete Edema 06/11/2006 05/18/2016 documented as of this encounter (statuses as of 11/23/2021) [address]11-2017 History of Past illness Narrative* Problem Noted Date Resolved Date Chest pain 01/16/2017 01/17/2017 HISTORY OF CANCER OF UTERUS 06/11/200605/09 Overview: 2003, Hysterectomy - complete Edema 06/11/2006 05/18/2016 documented as of this encounter (statuses as of 11/23/2021) [address]11-2017 History of Past illness Narrative* Problem Noted Date Resolved Date Chest pain 01/16/2017 01/17/2017 HISTORY OF CANCER OF UTERUS 06/11/200605/09 Overview: 2003, Hysterectomy - complete Edema 06/11/2006 05/18/2016 documented as of this encounter (statuses as of 11/25/2021) [facility] Narrative* Problem Noted Date Resolved Date Chest pain 01/16/2017 01/17/2017 HISTORY OF CANCER OF UTERUS 06/11/200605/09 Overview: 2003, Hysterectomy - complete Edema 06/11/2006 05/18/2016 documented as of this encounter (statuses as of 11/25/2021) [address]11-2017 History of Past illness Narrative* Problem Noted Date Resolved Date Chest pain 01/16/2017 01/17/2017 HISTORY OF CANCER OF UTERUS 06/11/200605/09 Overview: 2003, Hysterectomy - complete Edema 06/11/2006 05/18/2016 documented as of this encounter (statuses as of 12/07/2021) [facility] Narrative* Problem Noted Date Resolved Date Chest pain 01/16/2017 01/17/2017 HISTORY OF CANCER OF UTERUS 06/11/200605/09 Overview: 2003, Hysterectomy - complete Edema 06/11/2006 05/18/2016 documented as of this encounter (statuses as of 12/07/2021) [facility] Narrative* Problem Noted Date Resolved Date Chest pain 01/16/2017 01/17/2017 HISTORY OF CANCER OF UTERUS 06/11/200605/09 Overview: 2003, Hysterectomy - complete Edema 06/11/2006 05/18/2016 documented as of this encounter (statuses as of 12/12/2021) [facility] Narrative* Problem Noted Date Resolved Date Chest pain 01/16/2017 01/17/2017 HISTORY OF CANCER OF UTERUS 06/11/200605/09 Overview: 2003, Hysterectomy - complete Edema 06/11/2006 05/18/2016 documented as of this encounter (statuses as of 01/12/2022) [facility]arrative* Problem Noted Date Resolved Date Chest pain 01/16/2017 01/17/2017 HISTORY OF CANCER OF UTERUS 06/11/200605/09 Overview: 2003, Hysterectomy - complete Edema 06/11/2006 05/18/2016 documented as of this encounter (statuses as of 02/27/2022) [facility] Narrative* Problem Noted Date Resolved Date Chest pain 01/16/2017 01/17/2017 HISTORY OF CANCER OF UTERUS 06/11/200605/09 Overview: 2003, Hysterectomy - complete Edema 06/11/2006 05/18/2016 documented as of this encounter (statuses as of 03/01/2022) [facility] Narrative* Problem Noted Date Resolved Date Chest pain 01/16/2017 01/17/2017 HISTORY OF CANCER OF UTERUS 06/11/200605/09 Overview: 2003, Hysterectomy - complete Edema 06/11/2006 05/18/2016 documented as of this encounter (statuses as of 03/16/2022) [address]11-2017 History of Past illness Narrative* Problem Noted Date Resolved Date Chest pain 01/16/2017 01/17/2017 HISTORY OF CANCER OF UTERUS 06/11/200605/09 Overview: 2003, Hysterectomy - complete Edema 06/11/2006 05/18/2016 documented as of this encounter (statuses as of 03/29/2022) [address]11-2017 History of Past illness Narrative* Problem Noted Date Resolved Date Chest pain 01/16/2017 01/17/2017 HISTORY OF CANCER OF UTERUS 06/11/200605/09 Overview: 2003, Hysterectomy - complete Edema 06/11/2006 05/18/2016 documented as of this encounter (statuses as of 04/12/2022) [address]11-2017 History of Past illness Narrative* Problem Noted Date Resolved Date Chest pain 01/16/2017 01/17/2017 HISTORY OF CANCER OF UTERUS 06/11/200605/09 Overview: 2003, Hysterectomy - complete Edema 06/11/2006 05/18/2016 documented as of this encounter (statuses as of 04/18/2022) [address]11-2017 History of Past illness Narrative* Problem Noted Date Resolved Date Chest pain 01/16/2017 01/17/2017 HISTORY OF CANCER OF UTERUS 06/11/200605/09 Overview: 2003, Hysterectomy - complete Edema 06/11/2006 05/18/2016 documented as of this encounter (statuses as of 05/31/2022) [facility]* Problem Noted Date Resolved Date Chest pain 01/16/2017 01/17/2017 HISTORY OF CANCER OF UTERUS 06/11/200605/09 Overview: 2003, Hysterectomy - complete Edema 06/11/2006 05/18/2016 documented as of this encounter (statuses as of 05/31/2022) [facility] Narrative* Problem Noted Date Resolved Date Chest pain 01/16/2017 01/17/2017 HISTORY OF CANCER OF UTERUS 06/11/200605/09 Overview: 2003, Hysterectomy - complete Edema 06/11/2006 05/18/2016 documented as of this encounter (statuses as of 06/07/2022) [facility]* Problem Noted Date Resolved Date Chest pain 01/16/2017 01/17/2017 HISTORY OF CANCER OF UTERUS 06/11/200605/09 Overview: 2003, Hysterectomy - complete Edema 06/11/2006 05/18/2016 documented as of this encounter (statuses as of 07/14/2022) [facility]ative* Problem Noted Date Resolved Date Chest pain 01/16/2017 01/17/2017 HISTORY OF CANCER OF UTERUS 06/11/200605/09 Overview: 2003, Hysterectomy - complete Edema 06/11/2006 05/18/2016 documented as of this encounter (statuses as of 08/10/2022) [facility]ative* Problem Noted Date Resolved Date Chest pain 01/16/2017 01/17/2017 HISTORY OF CANCER OF UTERUS 06/11/200605/09 Overview: 2003, Hysterectomy - complete Edema 06/11/2006 05/18/2016 documented as of this encounter (statuses as of 08/14/2022) [facility]* Problem Noted Date Resolved Date Chest pain 01/16/2017 01/17/2017 HISTORY OF CANCER OF UTERUS 06/11/200605/09 Overview: 2003, Hysterectomy - complete Edema 06/11/2006 05/18/2016 documented as of this encounter (statuses as of 08/16/2022) [facility]* Problem Noted Date Resolved Date Chest pain 01/16/2017 01/17/2017 HISTORY OF CANCER OF UTERUS 06/11/200605/09 Overview: 2003, Hysterectomy - complete Edema 06/11/2006 05/18/2016 documented as of this encounter (statuses as of 08/17/2022) [facility]* Problem Noted Date Resolved Date Chest pain 01/16/2017 01/17/2017 HISTORY OF CANCER OF UTERUS 06/11/200605/09 Overview: 2003, Hysterectomy - complete Edema 06/11/2006 05/18/2016 documented as of this encounter (statuses as of 09/01/2022) [address]11-2017 History of Past illness Narrative* Problem Noted Date Resolved Date Chest pain 01/16/2017 01/17/2017 HISTORY OF CANCER OF UTERUS 06/11/200605/09 Overview: 2003, Hysterectomy - complete Edema 06/11/2006 05/18/2016 documented as of this encounter (statuses as of 09/10/2022) [facility]* Problem Noted Date Resolved Date Chest pain 01/16/2017 01/17/2017 HISTORY OF CANCER OF UTERUS 06/11/200605/09 Overview: 2003, Hysterectomy - complete Edema 06/11/2006 05/18/2016 documented as of this encounter (statuses as of 09/13/2022) [address]11-2017 History of Past illness Narrative* Problem Noted Date Resolved Date Chest pain 01/16/2017 01/17/2017 HISTORY OF CANCER OF UTERUS 06/11/200605/09 Overview: 2003, Hysterectomy - complete Edema 06/11/2006 05/18/2016 documented as of this encounter (statuses as of 09/20/2022) [facility]* Problem Noted Date Resolved Date Chest pain 01/16/2017 01/17/2017 HISTORY OF CANCER OF UTERUS 06/11/200605/09 Overview: 2003, Hysterectomy - complete Edema 06/11/2006 05/18/2016 documented as of this encounter (statuses as of 10/05/2022) [address]11-2017 History of Past illness Narrative* Problem Noted Date Resolved Date Chest pain 01/16/2017 01/17/2017 HISTORY OF CANCER OF UTERUS 06/11/200605/09 Overview: 2003, Hysterectomy - complete Edema 06/11/2006 05/18/2016 documented as of this encounter (statuses as of 10/11/2022) [address]11-2017 History of Past illness Narrative* Problem Noted Date Resolved Date Chest pain 01/16/2017 01/17/2017 HISTORY OF CANCER OF UTERUS 06/11/200605/09 Overview: 2003, Hysterectomy - complete Edema 06/11/2006 05/18/2016 documented as of this encounter (statuses as of 10/27/2022) [address]11-2017 History of Past illness Narrative* Problem Noted Date Resolved Date Chest pain 01/16/2017 01/17/2017 HISTORY OF CANCER OF UTERUS 06/11/200605/09 Overview: 2003, Hysterectomy - complete Edema 06/11/2006 05/18/2016 documented as of this encounter (statuses as of 11/06/2022) [address]11-2017 History of Past illness Narrative* Problem Noted Date Resolved Date Chest pain 01/16/2017 01/17/2017 HISTORY OF CANCER OF UTERUS 06/11/200605/09 Overview: 2003, Hysterectomy - complete Edema 06/11/2006 05/18/2016 documented as of this encounter (statuses as of 11/10/2022) [address]11-2017 History of Past illness Narrative* Problem Noted Date Resolved Date Chest pain 01/16/2017 01/17/2017 HISTORY OF CANCER OF UTERUS 06/11/200605/09 Overview: 2003, Hysterectomy - complete Edema 06/11/2006 05/18/2016 documented as of this encounter (statuses as of 11/16/2022) [facility] Problem Noted Date Resolved Date Chest pain 01/16/2017 01/17/2017 HISTORY OF CANCER OF UTERUS 06/11/200605/09 Overview: 2003, Hysterectomy - complete Edema 06/11/2006 05/18/2016 documented as of this encounter (statuses as of 11/16/2022) [facility]* Problem Noted Date Resolved Date Chest pain 01/16/2017 01/17/2017 HISTORY OF CANCER OF UTERUS 06/11/200605/09 Overview: 2003, Hysterectomy - complete Edema 06/11/2006 05/18/2016 documented as of this encounter (statuses as of 11/17/2022) [facility]* Problem Noted Date Resolved Date Chest pain 01/16/2017 01/17/2017 HISTORY OF CANCER OF UTERUS 06/11/200605/09 Overview: 2003, Hysterectomy - complete Edema 06/11/2006 05/18/2016 documented as of this encounter (statuses as of 11/22/2022) [facility]* Problem Noted Date Resolved Date Chest pain 01/16/2017 01/17/2017 HISTORY OF CANCER OF UTERUS 06/11/200605/09 Overview: 2003, Hysterectomy - complete Edema 06/11/2006 05/18/2016 documented as of this encounter (statuses as of 12/24/2022) [facility]* Problem Noted Date Resolved Date Chest pain 01/16/2017 01/17/2017 HISTORY OF CANCER OF UTERUS 06/11/200605/09 Overview: 2003, Hysterectomy - complete Edema 06/11/2006 05/18/2016 documented as of this encounter (statuses as of 12/25/2022) [facility]* Problem Noted Date Resolved Date Chest pain 01/16/2017 01/17/2017 HISTORY OF CANCER OF UTERUS 06/11/200605/09 Overview: 2003, Hysterectomy - complete Edema 06/11/2006 05/18/2016 documented as of this encounter (statuses as of 01/05/2023) [facility]* Problem Noted Date Resolved Date Chest pain 01/16/2017 01/17/2017 HISTORY OF CANCER OF UTERUS 06/11/200605/09 Overview: 2003, Hysterectomy - complete Edema 06/11/2006 05/18/2016 documented as of this encounter (statuses as of 01/08/2023) [facility]* Problem Noted Date Diagnosed Date Resolved Date Chest pain 01/16/2017 01/17/2017 HISTORY OF CANCER OF UTERUS 06/11/2006 05/18/2016 Overview: 2003, Hysterectomy - complete Edema 06/11/2006 05/18/2016 documented as of this encounter (statuses as of 01/15/2023) [facility] Problem Noted Date Diagnosed Date Resolved Date Chest pain 01/16/2017 01/17/2017 HISTORY OF CANCER OF UTERUS 06/11/2006 05/18/2016 Overview: 2003, Hysterectomy - complete Edema 06/11/2006 05/18/2016 documented as of this encounter (statuses as of 01/22/2023) [address]-2017 History of Past illness Narrative* Problem Noted Date Diagnosed Date Resolved Date Chest pain 01/16/2017 01/17/2017 HISTORY OF CANCER OF UTERUS 06/11/2006 05/18/2016 Overview: 2003, Hysterectomy - complete Edema 06/11/2006 05/18/2016 documented as of this encounter (statuses as of 02/02/2023) [facility] Problem Noted Date Diagnosed Date Resolved Date Chest pain 01/16/2017 01/17/2017 HISTORY OF CANCER OF UTERUS 06/11/2006 05/18/2016 Overview: 2003, Hysterectomy - complete Edema 06/11/2006 05/18/2016 documented as of this encounter (statuses as of 02/20/2023) [facility]* Problem Noted Date Diagnosed Date Resolved Date Chest pain 01/16/2017 01/17/2017 HISTORY OF CANCER OF UTERUS 06/11/2006 05/18/2016 Overview: 2003, Hysterectomy - complete Edema 06/11/2006 05/18/2016 documented as of this encounter (statuses as of 02/22/2023) [address]11-2017 History of Past illness Narrative* Problem Noted Date Diagnosed Date Resolved Date Chest pain 01/16/2017 01/17/2017 HISTORY OF CANCER OF UTERUS 06/11/2006 05/18/2016 Overview: 2003, Hysterectomy - complete Edema 06/11/2006 05/18/2016 documented as of this encounter (statuses as of 02/23/2023) [address]11-2017 History of Past illness Narrative* Problem Noted Date Diagnosed Date Resolved Date Chest pain 01/16/2017 01/17/2017 HISTORY OF CANCER OF UTERUS 06/11/2006 05/18/2016 Overview: 2003, Hysterectomy - complete Edema 06/11/2006 05/18/2016 documented as of this encounter (statuses as of 03/01/2023) [address]11-2017 History of Past illness Narrative* Problem Noted Date Diagnosed Date Resolved Date Chest pain 01/16/2017 01/17/2017 HISTORY OF CANCER OF UTERUS 06/11/2006 05/18/2016 Overview: 2003, Hysterectomy - complete Edema 06/11/2006 05/18/2016 documented as of this encounter (statuses as of 03/05/2023) [address]2017 History of Past illness Narrative* Problem Noted Date Diagnosed Date Resolved Date Chest pain 01/16/2017 01/17/2017 HISTORY OF CANCER OF UTERUS 06/11/2006 05/18/2016 Overview: 2003, Hysterectomy - complete Edema 06/11/2006 05/18/2016 documented as of this encounter (statuses as of 03/23/2023) [facility]* Problem Noted Date Diagnosed Date Resolved Date Chest pain 01/16/2017 01/17/2017 HISTORY OF CANCER OF UTERUS 06/11/2006 05/18/2016 Overview: 2003, Hysterectomy - complete Edema 06/11/2006 05/18/2016 documented as of this encounter (statuses as of 03/28/2023) [address]2017 History of Past illness Narrative* Problem Noted Date Diagnosed Date Resolved Date Chest pain 01/16/2017 01/17/2017 HISTORY OF CANCER OF UTERUS 06/11/2006 05/18/2016 Overview: 2003, Hysterectomy - complete Edema 06/11/2006 05/18/2016 documented as of this encounter (statuses as of 03/30/2023) [facility]* Problem Noted Date Diagnosed Date Resolved Date Chest pain 01/16/2017 01/17/2017 HISTORY OF CANCER OF UTERUS 06/11/2006 05/18/2016 Overview: 2003, Hysterectomy - complete Edema 06/11/2006 05/18/2016 documented as of this encounter (statuses as of 05/04/2023) [address]2017 History of Past illness Narrative* Problem Noted Date Diagnosed Date Resolved Date Chest pain 01/16/2017 01/17/2017 HISTORY OF CANCER OF UTERUS 06/11/2006 05/18/2016 Overview: 2003, Hysterectomy - complete Edema 06/11/2006 05/18/2016 documented as of this encounter (statuses as of 05/13/2023) [facility]* Problem Noted Date Diagnosed Date Resolved Date Chest pain 01/16/2017 01/17/2017 HISTORY OF CANCER OF UTERUS 06/11/2006 05/18/2016 Overview: 2003, Hysterectomy - complete Edema 06/11/2006 05/18/2016 documented as of this encounter (statuses as of 05/13/2023) [facility]* Problem Noted Date Diagnosed Date Resolved Date Chest pain 01/16/2017 01/17/2017 HISTORY OF CANCER OF UTERUS 06/11/2006 05/18/2016 Overview: 2003, Hysterectomy - complete Edema 06/11/2006 05/18/2016 documented as of this encounter (statuses as of 05/13/2023) [facility]07-11-2017 History of Past illness Narrative* Problem Noted Date Diagnosed Date Resolved Date Chest pain 01/16/2017 01/17/2017 HISTORY OF CANCER OF UTERUS 06/11/2006 05/18/2016 Overview: 2003, Hysterectomy - complete Edema 06/11/2006 05/18/2016 documented as of this encounter (statuses as of 05/13/2023) [address]11-2017 History of Past illness Narrative* Problem Noted Date Diagnosed Date Resolved Date Chest pain 01/16/2017 01/17/2017 HISTORY OF CANCER OF UTERUS 06/11/2006 05/18/2016 Overview: 2003, Hysterectomy - complete Edema 06/11/2006 05/18/2016 documented as of this encounter (statuses as of 05/17/2023) [address]-2017 History of Past illness Narrative* Problem Noted Date Diagnosed Date Resolved Date Chest pain 01/16/2017 01/17/2017 HISTORY OF CANCER OF UTERUS 06/11/2006 05/18/2016 Overview: 2003, Hysterectomy - complete Edema 06/11/2006 05/18/2016 documented as of this encounter (statuses as of 06/08/2023) [address]-2017 History of Past illness Narrative* Problem Noted Date Diagnosed Date Resolved Date Chest pain 01/16/2017 01/17/2017 HISTORY OF CANCER OF UTERUS 06/11/2006 05/18/2016 Overview: 2003, Hysterectomy - complete Edema 06/11/2006 05/18/2016 documented as of this encounter (statuses as of 06/13/2023) [facility]07-11-2017 History of Past illness Narrative* Problem Noted Date Diagnosed Date Resolved Date Chest pain 01/16/2017 01/17/2017 HISTORY OF CANCER OF UTERUS 06/11/2006 05/18/2016 Overview: 2003, Hysterectomy - complete Edema 06/11/2006 05/18/2016 documented as of this encounter (statuses as of 07/22/2023) [facility]-2017 History of Past illness Narrative* Problem Noted Date Diagnosed Date Resolved Date Chest pain 01/16/2017 01/17/2017 HISTORY OF CANCER OF UTERUS 06/11/2006 05/18/2016 Overview: 2003, Hysterectomy - complete Edema 06/11/2006 05/18/2016 documented as of this encounter (statuses as of 08/10/2023) [address]-2017 History of Past illness Narrative* Problem Noted Date Diagnosed Date Resolved Date Chest pain 01/16/2017 01/17/2017 HISTORY OF CANCER OF UTERUS 06/11/2006 05/18/2016 Overview: 2003, Hysterectomy - complete Edema 06/11/2006 05/18/2016 documented as of this encounter (statuses as of 08/14/2023) [facility]-2017 History of Past illness Narrative* Problem Noted Date Diagnosed Date Resolved Date Chest pain 01/16/2017 01/17/2017 HISTORY OF CANCER OF UTERUS 06/11/2006 05/18/2016 Overview: 2003, Hysterectomy - complete Edema 06/11/2006 05/18/2016 documented as of this encounter (statuses as of 08/30/2023) [address]-2017 History of Past illness Narrative* Problem Noted Date Diagnosed Date Resolved Date Chest pain 01/16/2017 01/17/2017 HISTORY OF CANCER OF UTERUS 06/11/2006 05/18/2016 Overview: 2003, Hysterectomy - complete Edema 06/11/2006 05/18/2016 documented as of this encounter (statuses as of 09/18/2023) [facility]-2017 History of Past illness Narrative* Problem Noted Date Diagnosed Date Resolved Date Chest pain 01/16/2017 01/17/2017 HISTORY OF CANCER OF UTERUS 06/11/2006 05/18/2016 Overview: 2003, Hysterectomy - complete Edema 06/11/2006 05/18/2016 documented as of this encounter (statuses as of 09/26/2023) [facility]2017 History of Past illness Narrative* Problem Noted Date Diagnosed Date Resolved Date Chest pain 01/16/2017 01/17/2017 HISTORY OF CANCER OF UTERUS 06/11/2006 05/18/2016 Overview: 2003, Hysterectomy - complete Edema 06/11/2006 05/18/2016 documented as of this encounter (statuses as of 09/26/2023) [address]-2017 History of Past illness Narrative* Problem Noted Date Diagnosed Date Resolved Date Chest pain 01/16/2017 01/17/2017 HISTORY OF CANCER OF UTERUS 06/11/2006 05/18/2016 Overview: 2003, Hysterectomy - complete Edema 06/11/2006 05/18/2016 documented as of this encounter (statuses as of 09/28/2023) [address]-2017 History of Past illness Narrative* Problem Noted Date Diagnosed Date Resolved Date Chest pain 01/16/2017 01/17/2017 HISTORY OF CANCER OF UTERUS 06/11/2006 05/18/2016 Overview: 2003, Hysterectomy - complete Edema 06/11/2006 05/18/2016 documented as of this encounter (statuses as of 10/10/2023) [address]-2017 History of Past illness Narrative* Problem Noted Date Diagnosed Date Resolved Date Chest pain 01/16/2017 01/17/2017 HISTORY OF CANCER OF UTERUS 06/11/2006 05/18/2016 Overview: 2003, Hysterectomy - complete Edema 06/11/2006 05/18/2016 documented as of this encounter (statuses as of 10/10/2023) [address]11-2017 History of Past illness Narrative* Problem Noted Date Diagnosed Date Resolved Date Chest pain 01/16/2017 01/17/2017 HISTORY OF CANCER OF UTERUS 06/11/2006 05/18/2016 Overview: 2003, Hysterectomy - complete Edema 06/11/2006 05/18/2016 documented as of this encounter (statuses as of 10/18/2023) [facility]-2017 History of Past illness Narrative* Problem Noted Date Diagnosed Date Resolved Date Chest pain 01/16/2017 01/17/2017 HISTORY OF CANCER OF UTERUS 06/11/2006 05/18/2016 Overview: 2003, Hysterectomy - complete Edema 06/11/2006 05/18/2016 documented as of this encounter (statuses as of 10/25/2023) [facility] note* Diagnosis Chronic RUQ pain- Primary Abdominal pain, right upper quadrant 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 Duggan's esophagus Other constipation Wheezing documented [facility] this encounter [facility] Diagnosis Chronic RUQ pain Abdominal pain, right upper quadrant 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 Duggan's esophagus documented in this encounter [facility]* Diagnosis Helicobacter pylori infection- Primary Helicobacter pylori (H. pylori) documented in this encounter [facility]* Diagnosis Medication management Encounter for long-term (current) use of other medications documented in this encounter [facility] note* Diagnosis Helicobacter pylori infection- Primary Helicobacter pylori (H. pylori) documented in this encounter [facility] note* Diagnosis COPD with exacerbation (HCC)- Primary Obstructive chronic bronchitis with exacerbation Shortness of breath Wheezing Insomnia, unspecified type Vitamin D deficiency Unspecified vitamin D deficiency Lipid screening Screening for lipoid disorders Medication management Encounter for long-term (current) use of other medications Encounter for screening mammogram for malignant neoplasm of breast Other screening mammogram Acute pain of both shoulders documented in this encounter [facility]* Diagnosis Encounter for screening mammogram for malignant neoplasm of breast Other screening mammogram documented in this encounter [facility]* Diagnosis COPD with exacerbation (HCC)- Primary Obstructive chronic bronchitis with exacerbation Shortness of breath Wheezing documented in this encounter [facility] note* Diagnosis COPD with exacerbation (HCC)- Primary Obstructive chronic bronchitis with exacerbation Shortness of breath Wheezing documented in this encounter [facility] note* Diagnosis Encounter for gynecological examination (general) (routine) without abnormal findings Encounter for screening mammogram for breast cancer documented in this encounter [facility] noteNo assessment information availableWCleveland Clinic [facility] Work Phone: evaluation note* Diagnosis Onset Date Resolution Status COPD (chronic obstructive pulmonary disease) acute Lung nodule acute Nicotine dependence, cigarettes, in remission acute [facility] Work Phone: Evaluation note* Diagnosis Chronic obstructive pulmonary disease, unspecified COPD type (HCC)- Primary GERD without esophagitis Esophageal reflux Helicobacter pylori infection Helicobacter pylori (H. pylori) documented in this encounter [facility] note* Diagnosis Onset Date Resolution Status COPD (chronic obstructive pulmonary disease) acute Lung nodule acute Nicotine dependence, cigarettes, in remission acute COPD (chronic obstructive pulmonary disease) acute Lung nodule acute Tobacco abuse [facility] Work Phone: Evaluation note* Diagnosis Muscle cramps- Primary Cramp of limb Restless leg Restless legs syndrome (RLS) Herpes zoster without complication Herpes zoster without mention of complication [facility] Diagnosis Tobacco use disorder, mild, in early remission, abuse Chronic pain syndrome [facility] Diagnosis Postherpetic neuralgia- Primary Herpes zoster with other nervous system complications documented in this encounter [facility] note* Diagnosis Herpes zoster without complication- Primary Herpes zoster without mention of complication Postherpetic neuralgia Herpes zoster with other nervous system complications Wheezing documented in this encounter [facility] note* Diagnosis Herpes zoster without complication- Primary Herpes zoster without mention of complication Postherpetic neuralgia Herpes zoster with other nervous system complications Left hip pain Pain in joint, pelvic region and thigh [facility] Diagnosis Onset Date Resolution Status COPD (chronic obstructive pulmonary disease) acute Lung nodule acute Tobacco abuse acute [facility] Work Phone: Evaluation note* Diagnosis COPD with exacerbation (HCC)- Primary Obstructive chronic bronchitis with exacerbation Wheezing documented in this encounter [facility] note* Diagnosis Helicobacter pylori infection Helicobacter pylori (H. pylori) [facility] Diagnosis Pneumonia due to infectious organism, unspecified laterality, unspecified part of lung- Primary Shortness of breath Chest pain, unspecified type EKG abnormality Nonspecific abnormal electrocardiogram (ECG) (EKG) documented in this encounter [facility] note* Diagnosis Chronic obstructive pulmonary disease, unspecified COPD type (HCC)- Primary Fibromyalgia Mylagia and myositis, unspecified Chronic pain syndrome GERD without esophagitis Esophageal reflux documented in this encounter [facility] note* Diagnosis COPD with exacerbation (HCC)- Primary Obstructive chronic bronchitis with exacerbation Wheezing Shortness of breath Other fatigue Headaches documented in this encounter [facility] note* Diagnosis Chronic Helicobacter pylori gastritis- Primary 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 Duggan's esophagus Other constipation documented in this encounter [facility] note* Diagnosis Chronic obstructive pulmonary disease, unspecified COPD type (HCC)- Primary Gastroesophageal reflux disease, unspecified whether esophagitis present Migraine without aura and without status migrainosus, not intractable Migraine without aura, without mention of intractable migraine without mention of status migrainosus documented in this encounter [facility] note* Diagnosis Chronic Helicobacter pylori gastritis documented in this encounter [facility] note* Diagnosis Gastroesophageal reflux disease, unspecified whether esophagitis present- Primary Increased urinary frequency Urinary frequency Constipation, unspecified constipation type documented in this encounter [facility] note* Diagnosis 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- Primary Duggan's esophagus Dysphagia, unspecified type History of Helicobacter pylori infection Personal history of other infectious and parasitic disease Other constipation documented in this encounter [facility] note* Diagnosis Onset Date Resolution Status Asthma-COPD overlap syndrome chronic Smoking greater than 30 pack years [facility] Work Phone: Evaluation note* Diagnosis Irritable bowel syndrome with constipation- Primary Irritable bowel syndrome documented in this encounter [facility] note* Diagnosis Internal hemorrhoids- Primary Internal hemorrhoids without mention of complication documented in this encounter [facility] note* Diagnosis Dysphagia, unspecified type documented in this encounter [facility] note* Diagnosis Constipation, unspecified constipation type- Primary Vomiting without nausea, unspecified vomiting type Acute LUQ pain Abdominal pain, left upper quadrant Rash Rash and other nonspecific skin eruption documented in this encounter [facility] note* Diagnosis Encounter for screening mammogram for breast cancer documented in this encounter [facility] note* Diagnosis Onset Date Resolution Status Lung nodule acute Tobacco abuse acute Asthma-COPD overlap syndrome chronic [facility] Work Phone: Evaluation note* Diagnosis Chronic Helicobacter pylori gastritis documented in this encounter [facility]* Diagnosis Irritable bowel syndrome with constipation Irritable bowel syndrome documented in this encounter [facility]* Diagnosis Chronic pain syndrome documented in this encounter [facility] note* Diagnosis Irritable bowel syndrome with constipation Irritable bowel syndrome documented in this encounter [facility] note* Diagnosis Breast pain- Primary Mastodynia Axillary tenderness, right documented in this encounter [facility]* Diagnosis Hiatal hernia- Primary Diaphragmatic hernia without mention of obstruction or gangrene 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 Duggan's esophagus documented in this encounter [facility] note* Diagnosis Gastroesophageal reflux disease without esophagitis- Primary Esophageal reflux Tobacco use disorder Hiatal hernia Diaphragmatic hernia without mention of obstruction or gangrene documented in this encounter [facility]* Diagnosis Pain with urination- Primary Renal colic Intermittent right-sided chest pain Acute pain of right shoulder Gastroesophageal reflux disease without esophagitis Esophageal reflux Vitamin D deficiency Unspecified vitamin D deficiency Elevated liver enzymes Other nonspecific abnormal serum enzyme levels documented in this encounter [facility] note* Diagnosis Right axillary swelling- Primary Swelling of limb Pain in right axilla Pain in limb documented in this encounter [facility] note* Diagnosis Onset Date Resolution Status Asthma-COPD overlap syndrome chronic Smoking greater than 30 pack years chronic Tobacco abuse acute Asthma-COPD overlap syndrome [facility] Work Phone: Evaluation note* Diagnosis Other constipation documented in this encounter [facility] note* Diagnosis Constipation, unspecified constipation type- Primary Irritable bowel syndrome with constipation Irritable bowel syndrome documented in this encounter [facility]* Diagnosis Axillary tenderness, right Breast pain Mastodynia documented in this encounter [facility]* Diagnosis Vomiting without nausea, unspecified vomiting type Constipation, unspecified constipation type Acute LUQ pain Abdominal pain, left upper quadrant documented in this encounter [facility] note* Diagnosis Right axillary swelling Swelling of limb Pain in right axilla Pain in limb documented in this encounter [facility]* Diagnosis RUQ abdominal pain- Primary Abdominal pain, right upper quadrant Nausea Nausea alone Gastroesophageal reflux disease, unspecified whether esophagitis present Leukocytosis, unspecified type documented in this encounter [facility]* Diagnosis RUQ abdominal pain Abdominal pain, right upper quadrant Nausea Nausea alone documented in this encounter [facility]* Diagnosis RUQ abdominal pain- Primary Abdominal pain, right upper quadrant Gastroesophageal reflux disease, unspecified whether esophagitis present Chronic obstructive pulmonary disease, unspecified COPD type (HCC) Vomiting without nausea, unspecified vomiting type Tobacco use disorder Chronic pain syndrome History of environmental allergies Other allergy, other than to medicinal agents Biliary calculus of other site without obstruction RUQ abdominal pain Abdominal pain, right upper quadrant documented in this encounter [facility]* Diagnosis Calculus of gallbladder with chronic cholecystitis without obstruction- Primary Calculus of gallbladder with other cholecystitis, without mention of obstruction documented in this encounter [facility] note* Diagnosis COPD with exacerbation (HCC)- Primary Obstructive chronic bronchitis with exacerbation Lesion of eyelid of both eyes documented in this encounter [facility] note* Diagnosis Onset Date Resolution Status Tobacco abuse acute Asthma-COPD overlap syndrome [facility] Work Phone: Evaluation note* Diagnosis Biliary calculus of other site without obstruction- Primary RUQ abdominal pain Abdominal pain, right upper quadrant documented in this encounter [facility]* Diagnosis Axillary tenderness, right- Primary Axillary mass, right documented in this encounter [facility] note* Diagnosis Axillary tenderness, right- Primary Mass of right axilla documented in this encounter [facility] note* Diagnosis Axillary tenderness, right Mass of right axilla documented in this encounter [facility] note* Diagnosis Axillary tenderness, right Axillary mass, right documented in this encounter [facility] note* Diagnosis Shortness of breath- Primary Wheezing Chest pain, unspecified type Abnormal EKG Nonspecific abnormal electrocardiogram (ECG) (EKG) Axillary tenderness, unspecified laterality documented in this encounter [facility]* Diagnosis Encounter for gynecological examination (general) (routine) without abnormal findings- Primary 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 Encounter for screening for human papillomavirus (HPV) Special screening examination for human papillomavirus (HPV) Encounter for screening mammogram for breast cancer documented in this encounter [facility]* Diagnosis Numbness and tingling of both upper extremities- Primary Pain in both upper extremities documented in this encounter [facility]* Diagnosis Cervicalgia- Primary Numbness and tingling of both upper extremities Pain in both upper extremities Pain in right arm documented in this encounter [facility]* Diagnosis Acute right ankle pain- Primary Pain in axilla, unspecified laterality Numbness and tingling of both upper extremities documented in this encounter [facility]* Diagnosis Syncope, unspecified syncope type- Primary Hiatal hernia Diaphragmatic hernia without mention of obstruction or gangrene 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 Duggan's esophagus Gastroesophageal reflux disease with esophagitis, unspecified whether hemorrhage Irritable bowel syndrome with constipation Irritable bowel syndrome Abnormal EKG Nonspecific abnormal electrocardiogram (ECG) (EKG) documented in this encounter [facility] note* Diagnosis COPD with exacerbation (HCC)- Primary Obstructive chronic bronchitis with exacerbation Shortness of breath Headaches Increased sputum production Abnormal sputum Syncope, unspecified syncope type COPD with exacerbation (HCC) Obstructive chronic bronchitis with exacerbation Shortness of breath Headaches Increased sputum production Abnormal sputum documented in this encounter [facility]* Diagnosis COPD with exacerbation (HCC)- Primary Obstructive chronic bronchitis with exacerbation Pain in left hernandez [facility] Diagnosis Pre-op evaluation- Primary Preoperative examination, unspecified Biliary calculus of other site without obstruction Former tobacco use Personal history of tobacco use, presenting hazards to health Overweight (BMI 25.0-29.9) Overweight History of COVID-19 Chronic obstructive pulmonary disease, unspecified COPD type (HCC) Malignant neoplasm of cervix, unspecified site (HCC) 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 Duggan's esophagus COPD with exacerbation (HCC) Obstructive chronic bronchitis with exacerbation Shortness of breath Headaches Increased sputum production Abnormal sputum documented in this encounter [facility]* Diagnosis Pre-op evaluation- Primary Preoperative examination, unspecified Biliary calculus of other site without obstruction Former tobacco use Personal history of tobacco use, presenting hazards to health Overweight (BMI 25.0-29.9) Overweight History of COVID-19 Chronic obstructive pulmonary disease, unspecified COPD type (HCC) Malignant neoplasm of cervix, unspecified site (HCC) 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 Duggan's esophagus Pain in left hernandez [facility] Diagnosis Pre-op evaluation- Primary Preoperative examination, unspecified Biliary calculus of other site without obstruction Former tobacco use Personal history of tobacco use, presenting hazards to health Overweight (BMI 25.0-29.9) Overweight History of COVID-19 Chronic obstructive pulmonary disease, unspecified COPD type (HCC) Malignant neoplasm of cervix, unspecified site (HCC) 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 Duggan's esophagus Syncope and collapse- Primary [facility] Diagnosis Pre-op evaluation- Primary Preoperative examination, unspecified Biliary calculus of other site without obstruction Former tobacco use Personal history of tobacco use, presenting hazards to health Overweight (BMI 25.0-29.9) Overweight History of COVID-19 Chronic obstructive pulmonary disease, unspecified COPD type (HCC) Malignant neoplasm of cervix, unspecified site (HCC) 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 Duggan's esophagus Chest pain, unspecified type Shortness of breath Wheezing documented in this [facility] Diagnosis Pre-op evaluation- Primary Preoperative examination, unspecified Biliary calculus of other site without obstruction Former tobacco use Personal history of tobacco use, presenting hazards to health Overweight (BMI 25.0-29.9) Overweight History of COVID-19 Chronic obstructive pulmonary disease, unspecified COPD type (HCC) Malignant neoplasm of cervix, unspecified site (HCC) 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 Duggan's esophagus Irritable bowel syndrome with constipation Irritable bowel syndrome [facility] Diagnosis Pre-op evaluation- Primary Preoperative examination, unspecified Biliary calculus of other site without obstruction Former tobacco use Personal history of tobacco use, presenting hazards to health Overweight (BMI 25.0-29.9) Overweight History of COVID-19 Chronic obstructive pulmonary disease, unspecified COPD type (HCC) Malignant neoplasm of cervix, unspecified site (HCC) 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 Duggan's esophagus Syncope and collapse [facility] Diagnosis Pre-op evaluation- Primary Preoperative examination, unspecified Biliary calculus of other site without obstruction Former tobacco use Personal history of tobacco use, presenting hazards to health Overweight (BMI 25.0-29.9) Overweight History of COVID-19 Chronic obstructive pulmonary disease, unspecified COPD type (HCC) Malignant neoplasm of cervix, unspecified site (HCC) 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 Duggan's esophagus Syncope, unspecified syncope type- Primary COPD with exacerbation (HCC) Obstructive chronic bronchitis with exacerbation Wheezing Shortness of breath COPD with exacerbation (HCC) Obstructive chronic bronchitis with exacerbation Wheezing Shortness of breath documented in this encounter [facility]* Diagnosis Pre-op evaluation- Primary Preoperative examination, unspecified Biliary calculus of other site without obstruction Former tobacco use Personal history of tobacco use, presenting hazards to health Overweight (BMI 25.0-29.9) Overweight History of COVID-19 Chronic obstructive pulmonary disease, unspecified COPD type (HCC) Malignant neoplasm of cervix, unspecified site (HCC) 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 Duggan's esophagus COPD with exacerbation (HCC) Obstructive chronic bronchitis with exacerbation Wheezing Shortness of breath documented in this encounter [facility] note* Diagnosis COPD with exacerbation (HCC) Obstructive chronic bronchitis with exacerbation Wheezing Shortness of breath Pre-op evaluation- Primary Preoperative examination, unspecified Biliary calculus of other site without obstruction Former tobacco use Personal history of tobacco use, presenting hazards to health Overweight (BMI 25.0-29.9) Overweight History of COVID-19 Chronic obstructive pulmonary disease, unspecified COPD type (HCC) Malignant neoplasm of cervix, unspecified site (HCC) 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 Duggan's esophagus documented in this encounter [facility] note* Diagnosis Chest pain, unspecified type Pneumonia due to infectious organism, unspecified laterality, unspecified part of lung Shortness of breath Pre-op evaluation- Primary Preoperative examination, unspecified Biliary calculus of other site without obstruction Former tobacco use Personal history of tobacco use, presenting hazards to health Overweight (BMI 25.0-29.9) Overweight History of COVID-19 Chronic obstructive pulmonary disease, unspecified COPD type (HCC) Malignant neoplasm of cervix, unspecified site (HCC) 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 Duggan's esophagus documented in this encounter [facility] note* Diagnosis Wheezing COPD with exacerbation (HCC) Obstructive chronic bronchitis with exacerbation Pre-op evaluation- Primary Preoperative examination, unspecified Biliary calculus of other site without obstruction Former tobacco use Personal history of tobacco use, presenting hazards to health Overweight (BMI 25.0-29.9) Overweight History of COVID-19 Chronic obstructive pulmonary disease, unspecified COPD type (HCC) Malignant neoplasm of cervix, unspecified site (HCC) 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 Duggan's esophagus documented in this encounter [facility] note* Diagnosis Wheezing Shortness of breath Pre-op evaluation- Primary Preoperative examination, unspecified Biliary calculus of other site without obstruction Former tobacco use Personal history of tobacco use, presenting hazards to health Overweight (BMI 25.0-29.9) Overweight History of COVID-19 Chronic obstructive pulmonary disease, unspecified COPD type (HCC) Malignant neoplasm of cervix, unspecified site (HCC) 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 Duggan's esophagus documented in this encounter [facility] note* Diagnosis Wheezing Pre-op evaluation- Primary Preoperative examination, unspecified Biliary calculus of other site without obstruction Former tobacco use Personal history of tobacco use, presenting hazards to health Overweight (BMI 25.0-29.9) Overweight History of COVID-19 Chronic obstructive pulmonary disease, unspecified COPD type (HCC) Malignant neoplasm of cervix, unspecified site (HCC) 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 Duggan's esophagus documented in this encounter [facility] note* Diagnosis Pre-op evaluation- Primary Preoperative examination, unspecified Biliary calculus of other site without obstruction Former tobacco use Personal history of tobacco use, presenting hazards to health Overweight (BMI 25.0-29.9) Overweight History of COVID-19 Chronic obstructive pulmonary disease, unspecified COPD type (HCC) Malignant neoplasm of cervix, unspecified site (HCC) 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 Duggan's esophagus Syncope, unspecified syncope type- Primary Stenosis of carotid artery, unspecified laterality documented in this encounter [facility] note* Diagnosis Fall, initial encounter Pre-op evaluation- Primary Preoperative examination, unspecified Biliary calculus of other site without obstruction Former tobacco use Personal history of tobacco use, presenting hazards to health Overweight (BMI 25.0-29.9) Overweight History of COVID-19 Chronic obstructive pulmonary disease, unspecified COPD type (HCC) Malignant neoplasm of cervix, unspecified site (HCC) 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 Duggan's esophagus documented in this encounter [facility] note* Diagnosis Chronic RUQ pain Abdominal pain, right upper quadrant Pre-op evaluation- Primary Preoperative examination, unspecified Biliary calculus of other site without obstruction Former tobacco use Personal history of tobacco use, presenting hazards to health Overweight (BMI 25.0-29.9) Overweight History of COVID-19 Chronic obstructive pulmonary disease, unspecified COPD type (HCC) Malignant neoplasm of cervix, unspecified site (HCC) 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 Duggan's esophagus documented in this encounter [facility] note* Diagnosis Pre-op evaluation- Primary Preoperative examination, unspecified Biliary calculus of other site without obstruction Former tobacco use Personal history of tobacco use, presenting hazards to health Overweight (BMI 25.0-29.9) Overweight History of COVID-19 Chronic obstructive pulmonary disease, unspecified COPD type (HCC) Malignant neoplasm of cervix, unspecified site (HCC) 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 Duggan's esophagus Osteopenia, unspecified location- Primary Cervicalgia Muscle tightness Unspecified disorder of muscle, ligament, and fascia Medication management Encounter for long-term (current) use of other medications documented in this [facility] Diagnosis Pre-op evaluation- Primary Preoperative examination, unspecified Biliary calculus of other site without obstruction Former tobacco use Personal history of tobacco use, presenting hazards to health Overweight (BMI 25.0-29.9) Overweight History of COVID-19 Chronic obstructive pulmonary disease, unspecified COPD type (HCC) Malignant neoplasm of cervix, unspecified site (HCC) 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 Duggan's esophagus Vitamin deficiency- Primary Unspecified vitamin deficiency Medication management Encounter for long-term (current) use of other medications Vitamin D deficiency Unspecified vitamin D deficiency documented in this encounter [facility] note* Diagnosis Pre-op evaluation- Primary Preoperative examination, unspecified Biliary calculus of other site without obstruction Former tobacco use Personal history of tobacco use, presenting hazards to health Overweight (BMI 25.0-29.9) Overweight History of COVID-19 Chronic obstructive pulmonary disease, unspecified COPD type (HCC) Malignant neoplasm of cervix, unspecified site (HCC) 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 Duggan's esophagus Chronic pain syndrome documented in this encounter [facility] note* Diagnosis Pre-op evaluation- Primary Preoperative examination, unspecified Biliary calculus of other site without obstruction Former tobacco use Personal history of tobacco use, presenting hazards to health Overweight (BMI 25.0-29.9) Overweight History of COVID-19 Chronic obstructive pulmonary disease, unspecified COPD type (HCC) Malignant neoplasm of cervix, unspecified site (HCC) 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 Duggan's esophagus Asthma with COPD with exacerbation (HCC)- Primary Chronic obstructive asthma with exacerbation documented in this encounter [facility] note* Diagnosis Pre-op evaluation- Primary Preoperative examination, unspecified Biliary calculus of other site without obstruction Former tobacco use Personal history of tobacco use, presenting hazards to health Overweight (BMI 25.0-29.9) Overweight History of COVID-19 Chronic obstructive pulmonary disease, unspecified COPD type (HCC) Malignant neoplasm of cervix, unspecified site (HCC) 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 Duggan's esophagus Acute intractable headache, unspecified headache type- Primary Migraine without status migrainosus, not intractable, unspecified migraine type documented in this encounter [facility] note* Diagnosis Pre-op evaluation- Primary Preoperative examination, unspecified Biliary calculus of other site without obstruction Former tobacco use Personal history of tobacco use, presenting hazards to health Overweight (BMI 25.0-29.9) Overweight History of COVID-19 Chronic obstructive pulmonary disease, unspecified COPD type (HCC) Malignant neoplasm of cervix, unspecified site (HCC) 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 Duggan's esophagus Acute intractable headache, unspecified headache type- Primary Migraine without status migrainosus, not intractable, unspecified migraine type RUE weakness Other musculoskeletal symptoms referable to limbs Axillary pain, right Chronic right shoulder pain Pain in joint, shoulder region documented in this encounter [facility] note* Diagnosis Pre-op evaluation- Primary Preoperative examination, unspecified Biliary calculus of other site without obstruction Former tobacco use Personal history of tobacco use, presenting hazards to health Overweight (BMI 25.0-29.9) Overweight History of COVID-19 Chronic obstructive pulmonary disease, unspecified COPD type (HCC) Malignant neoplasm of cervix, unspecified site (HCC) 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 Duggan's esophagus Cervical radiculopathy- Primary Brachial neuritis or radiculitis nos RUE weakness Other musculoskeletal symptoms referable to limbs Axillary pain, right Chronic right shoulder pain Pain in joint, shoulder region Cervical disc disorder with radiculopathy of cervical region Brachial neuritis or radiculitis nos Age-related osteoporosis without current pathological fracture Senile osteoporosis documented in this encounter [facility] note* Diagnosis Pre-op evaluation- Primary Preoperative examination, unspecified Biliary calculus of other site without obstruction Former tobacco use Personal history of tobacco use, presenting hazards to health Overweight (BMI 25.0-29.9) Overweight History of COVID-19 Chronic obstructive pulmonary disease, unspecified COPD type (HCC) Malignant neoplasm of cervix, unspecified site (HCC) 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 Duggan's esophagus Chronic obstructive pulmonary disease, unspecified COPD type (HCC)- Primary Medication management Encounter for long-term (current) use of other medications documented in this encounter [facility] Diagnosis Pre-op evaluation- Primary Preoperative examination, unspecified Biliary calculus of other site without obstruction Former tobacco use Personal history of tobacco use, presenting hazards to health Overweight (BMI 25.0-29.9) Overweight History of COVID-19 Chronic obstructive pulmonary disease, unspecified COPD type (HCC) Malignant neoplasm of cervix, unspecified site (HCC) 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 Duggan's esophagus Right axillary swelling Swelling of limb documented in this encounter [facility] note* Diagnosis Pre-op evaluation- Primary Preoperative examination, unspecified Biliary calculus of other site without obstruction Former tobacco use Personal history of tobacco use, presenting hazards to health Overweight (BMI 25.0-29.9) Overweight History of COVID-19 Chronic obstructive pulmonary disease, unspecified COPD type (HCC) Malignant neoplasm of cervix, unspecified site (HCC) 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 Duggan's esophagus Right axillary swelling Swelling of limb documented in this encounter [facility] note* Diagnosis Pre-op evaluation- Primary Preoperative examination, unspecified Biliary calculus of other site without obstruction Former tobacco use Personal history of tobacco use, presenting hazards to health Overweight (BMI 25.0-29.9) Overweight History of COVID-19 Chronic obstructive pulmonary disease, unspecified COPD type (HCC) Malignant neoplasm of cervix, unspecified site (HCC) 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 Duggan's esophagus Right axillary swelling Swelling of limb documented in this encounter [facility] note* Diagnosis Pre-op evaluation- Primary Preoperative examination, unspecified Biliary calculus of other site without obstruction Former tobacco use Personal history of tobacco use, presenting hazards to health Overweight (BMI 25.0-29.9) Overweight History of COVID-19 Chronic obstructive pulmonary disease, unspecified COPD type (HCC) Malignant neoplasm of cervix, unspecified site (HCC) 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 Duggan's esophagus Lymphadenopathy- Primary Enlargement of lymph nodes Pain in right arm Localized enlarged lymph nodes Enlargement of lymph nodes Radiculopathy, cervical region Brachial neuritis or radiculitis nos Encounter for follow-up examination after completed treatment for conditions other than malignant neoplasm Brittle bone disease (HCC) Osteogenesis imperfecta documented in this encounter [facility] note* Diagnosis Pre-op evaluation- Primary Preoperative examination, unspecified Biliary calculus of other site without obstruction Former tobacco use Personal history of tobacco use, presenting hazards to health Overweight (BMI 25.0-29.9) Overweight History of COVID-19 Chronic obstructive pulmonary disease, unspecified COPD type (HCC) Malignant neoplasm of cervix, unspecified site (HCC) 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 Duggan's esophagus History of uterine cancer- Primary Personal history of malignant neoplasm of other parts of uterus Family history of ovarian cancer Family history of malignant neoplasm of ovary Family history of breast cancer Family history of malignant neoplasm of breast History of skin cancer Personal history of other malignant neoplasm of skin Family history of pancreatic cancer Family history of malignant neoplasm of gastrointestinal tract Family history of uterine cancer Family history of malignant neoplasm of genital organ, other Family history of brain cancer Family history of other specified malignant neoplasm [facility] Diagnosis Pre-op evaluation- Primary Preoperative examination, unspecified Biliary calculus of other site without obstruction Former tobacco use Personal history of tobacco use, presenting hazards to health Overweight (BMI 25.0-29.9) Overweight History of COVID-19 Chronic obstructive pulmonary disease, unspecified COPD type (HCC) Malignant neoplasm of cervix, unspecified site (HCC) 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 Duggan's esophagus Chronic migraine without aura without status migrainosus, not intractable- Primary Chronic migraine without aura, without mention of intractable migraine without mention of status migrainosus Fibromyalgia Mylagia and myositis, unspecified Enlarged lymph nodes Enlargement of lymph nodes Chronic obstructive pulmonary disease, unspecified COPD type (HCC) [facility] Diagnosis Pre-op evaluation- Primary Preoperative examination, unspecified Biliary calculus of other site without obstruction Former tobacco use Personal history of tobacco use, presenting hazards to health Overweight (BMI 25.0-29.9) Overweight History of COVID-19 Chronic obstructive pulmonary disease, unspecified COPD type (HCC) Malignant neoplasm of cervix, unspecified site (HCC) 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 Duggan's esophagus RUE weakness Other musculoskeletal symptoms referable to limbs Axillary pain, right Chronic right shoulder pain Pain in joint, shoulder region Cervical radiculopathy Brachial neuritis or radiculitis nos [facility] Diagnosis Pre-op evaluation- Primary Preoperative examination, unspecified Biliary calculus of other site without obstruction Former tobacco use Personal history of tobacco use, presenting hazards to health Overweight (BMI 25.0-29.9) Overweight History of COVID-19 Chronic obstructive pulmonary disease, unspecified COPD type (HCC) Malignant neoplasm of cervix, unspecified site (HCC) 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 Duggan's esophagus Chronic migraine without aura without status migrainosus, not intractable- Primary Chronic migraine without aura, without mention of intractable migraine without mention of status migrainosus Acute intractable headache, unspecified headache type documented in this encounter [facility] note* Diagnosis Pre-op evaluation- Primary Preoperative examination, unspecified Biliary calculus of other site without obstruction Former tobacco use Personal history of tobacco use, presenting hazards to health Overweight (BMI 25.0-29.9) Overweight History of COVID-19 Chronic obstructive pulmonary disease, unspecified COPD type (HCC) Malignant neoplasm of cervix, unspecified site (HCC) 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 Duggan's esophagus History of Helicobacter pylori infection Personal history of other infectious and parasitic disease 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 Duggan's esophagus Dysphagia, unspecified type documented in this encounter [facility] note* Diagnosis Pre-op evaluation- Primary Preoperative examination, unspecified Biliary calculus of other site without obstruction Former tobacco use Personal history of tobacco use, presenting hazards to health Overweight (BMI 25.0-29.9) Overweight History of COVID-19 Chronic obstructive pulmonary disease, unspecified COPD type (HCC) Malignant neoplasm of cervix, unspecified site (HCC) 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 Duggan's esophagus 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- Primary Duggan's esophagus Gastro-esophageal reflux disease without esophagitis Esophageal reflux Dysphagia, unspecified type Chronic obstructive pulmonary disease, unspecified COPD type (HCC) Dependence on supplemental oxygen History of Helicobacter pylori infection Personal history of other infectious and parasitic disease Encounter for immunization Need for other specified prophylactic vaccination against single bacterial disease documented in this encounter [facility] Discharge instructions Additional Instructions Thank you for trusting us with your care today! Please take Tylenol (2 pills, 650 mg), ibuprofen (2 pills, 400 mg) every 6 hours as needed for pain and fever control. Please take antibiotics as prescribed. Please return to the emergency department if your symptoms change or worsen. Please follow with your primary care physician for further outpatient evaluation and management.[facility] Work Phone: Reason for referral (narrative)* Outpatient Procedure (Routine) - Authorized Specialty Diagnoses / Procedures Referred By Ml t Referred To Contact [facility] [place] Diagnoses Chronic RUQ pain 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 Procedures EGD DIAGNOSTIC ESOPHAGOGASTRODUODENOS COPY TRANSORAL DIAGNOSTIC Roselyn Tobar PA-C [address] [place] [address] [facility] [address] [place] [address] Referral ID Status Reason Start Date Expiration Date Visits Requested Visits Authorized [id number] Authorized Auto-Generat ed Referral 10/05/2021 10/05/2022 1 1 [facility] for referral (narrative)* Outpatient Procedure (Routine) - Closed Specialty Diagnoses / Procedures Referred By Ml t Referred To Contact [facility] Diagnoses Chronic RUQ pain 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 Procedures EGD DIAGNOSTIC ESOPHAGOGASTRODUODENOS COPY TRANSORAL DIAGNOSTIC Roselyn Tobar PA-C [address] [place] [address] [facility] [address] [place] [address] Referral ID Status Reason Start Date Expiration Date V isits Requested Visits Authorized [id number] Closed Auto-Generate d Referral 10/05/2021 10/05/2022 1 1 [facility] for referral (narrative)* Diagnostic Procedure Only (Routine) - Authorized Specialty Diagnoses / Procedures Referred By Ml t Referred To Contact [facility] Diagnoses Encounter for screening mammogram for malignant neoplasm of breast Procedures DELTA SCREENING SCREENING MAMMOGRAPHY BI 2-VIEW BREAST INC Laura Schafer APRN.CNP [address] [place] [address] [facility] [address] [place] [address] Referral ID Status Reason Start Date Expiration Date Visits Requested Visits Authorized [id number] Authorized Auto-Generat ed Referral 11/17/2021 12/17/2022 1 1 * Medication Prior Authorization - Closed Specialty Diagnoses / Procedures Referred By Contac t Referred To Contact Diagnoses COPD with exacerbation (HCC) Laura Hernandez APRN.DUMPER [address] [place] [address] Referral ID Status Reason Start Date Expiration Date Visits Re quested Visits Authorized [id number] Closed 1 1 [facility] for referral (narrative)* Diagnostic Procedure Only (Routine) - Closed Specialty Diagnoses / Procedures Referred By Contac t Referred To Contact [facility] Diagnoses Encounter for screening mammogram for malignant neoplasm of breast Procedures DELTA SCREENING SCREENING MAMMOGRAPHY BI 2-VIEW BREAST INC CAD Laura Hernandez APRN.DUMPER [address] [place] [address] [facility] [address] [place] [address] Referral ID Status Reason Start Date Expiration Date V isits Requested Visits Authorized [id number] Closed Auto-Generate d Referral 11/17/2021 12/17/2022 1 1 [facility] for referral (narrative)* Diagnostic Procedure Only (Routine) - Pending Review Specialty Diagnoses / Procedures Referred By Contac t Referred To Contact [facility] Diagnoses Encounter for screening mammogram for breast cancer Procedures DELTA SCREENING SCREENING MAMMOGRAPHY BI 2-VIEW BREAST INC CAD Dona Hsu APRN.DUMPER [address] [place] [address] [facility] [address] [place] [address] Referral ID Status Reason Start Date Expiration Date Visits Requested Visits Authorized [id number] Pending Review Auto-Generat ed Referral 11/25/2021 12/25/2022 1 1 [facility] for referral (narrative)* Outpatient Procedure (Routine) - Pending Review Specialty Diagnoses / Procedures Referred By Contac t Referred To Contact [facility] [place] Diagnoses Chest pain, unspecified type Shortness of breath EKG abnormality Procedures ECHO ECHO TTHRC R-T 2D W/WOM-MODE COMPL SPEC&COLR D Laura Hernandez APRN.DUMPER [address] [place] [address] [facility] [place] [address] [place] [address] Referral ID Status Reason Start Date Expiration Date Visits Requested Visits Authorized [id number] Pending Review Auto-Generat ed Referral 2 06/07/2023 1 1 * Outpatient Procedure (Routine) - Pending Review Specialty Diagnoses / Procedures [facility] Diagnoses Chest pain, unspecified type Procedures ECG COMPLETE ECG ROUTINE ECG W/LEAST 12 LDS W/I&R Laura Hernandez APRN.DUMPER [address] [place] [address] [address] Referral ID Status Reason Start Date Expiration Date Visits Requested Visits Authorized [id number] Pending Review Auto-Generat ed Referral 2 06/07/2023 1 1 [facility] for referral (narrative)* Outpatient Procedure (Routine) - Authorized Specialty Diagnoses / Procedures Referred By Contac t Referred To Contact [facility] Diagnoses Chronic Helicobacter pylori gastritis Procedures EGD DIAGNOSTIC ESOPHAGOGASTRODUODENOSCO PY TRANSORAL DIAGNOSTIC Roselyn Tobar PA-C [address] [place] [address] [facility] [address] [place] [address] Referral ID Status Reason Start Date Expiration Date Visits Requested Visits Authorized [id number] Authorized Auto-Generat ed Referral 08/16/2022 08/16/2023 1 1 [facility] for referral (narrative)* Outpatient Procedure (Routine) - Closed Specialty Diagnoses / Procedures [facility] Diagnoses Chronic Helicobacter pylori gastritis Procedures EGD DIAGNOSTIC ESOPHAGOGASTRODUODENOSCO PY TRANSORAL DIAGNOSTIC Roselyn Tobar PA-C [address] [place] [address] [facility] [address] [place] [address] Referral ID Status Reason Start Date Expiration Date V isits Requested Visits Authorized [id number] Closed Auto-Generate d Referral 08/16/2022 08/16/2023 1 1 [facility] for referral (narrative)* Diagnostic Procedure Only (Routine) - Authorized Specialty Diagnoses / Procedures [facility] Diagnoses Dysphagia, unspecified type Procedures XR ESOPHAGRAM RADIOLOGIC EXAM ESOPHAGUS SINGLE CONTRAST STUDY Roselyn Tobar PA-C [address] [place] [address] [facility] Referral ID Status Reason Start Date Expiration Date Visits Requested Visits Authorized [id number] Authorized Auto-Generat ed Referral 10/26/2022 11/25/2023 1 1 * Diagnostic Procedure Only (Routine) - Closed Specialty Diagnoses / Procedures [facility] Diagnoses Other constipation Procedures XR ABDOMEN 1V SUPINE RADIOLOGIC EXAM ABDOMEN 1 VIEW Roselyn Tobar PA-C [address] [place] [address] [facility] Referral ID Status Reason Start Date Expiration Date V isits Requested Visits Authorized [id number] Closed Auto-Generate d Referral 10/26/2022 11/25/2023 1 1 [facility] for referral (narrative)* Diagnostic Procedure Only (Routine) - Closed Specialty Diagnoses / Procedures Referred By Contac t Referred To Contact [facility] Diagnoses Dysphagia, unspecified type Procedures XR ESOPHAGRAM RADIOLOGIC EXAM ESOPHAGUS SINGLE CONTRAST STUDY Roselyn Tobar PA-C [address] [place] [address] [facility] Referral ID Status Reason Start Date Expiration Date V isits Requested Visits Authorized [id number] Closed Auto-Generate d Referral 10/26/2022 11/25/2023 1 1 [facility] for referral (narrative)* Diagnostic Procedure Only (Routine) - Pending Review Specialty Diagnoses / Procedures Referred By Ml t Referred To Contact [facility] Diagnoses Encounter for screening mammogram for breast cancer Procedures DELTA SCREENING SCREENING MAMMOGRAPHY BI 2-VIEW BREAST INC Amanda Díaz MD [address] [place] [address] [facility] [address] [place] [address] Referral ID Status Reason Start Date Expiration Date Visits Requested Visits Authorized [id number] Pending Review Auto-Generat ed Referral 12/20/2022 01/19/2024 1 1 [facility] for referral (narrative)* Diagnostic Procedure Only (Routine) - Pending Review Specialty Diagnoses / Procedures [facility] Diagnoses Breast pain Axillary tenderness, right Procedures DELTA DIAGNOSTIC BILATERAL DIAGNOSTIC MAMMOGRAPHY COMPUTER-AIDED DETCJ Laura Fong APRN.CNP [address] [place] [address] [facility] [address] [place] [address] Referral ID Status Reason Start Date Expiration Date Visits Requested Visits Authorized [id number] Pending Review Auto-Generat ed Referral 02/23/2023 03/24/2024 1 1 [facility] for referral (narrative)* Outpatient Procedure (Routine) - Pending Review Specialty Diagnoses / Procedures Referred By Contac t Referred To [facility] Diagnoses Intermittent right-sided chest pain Procedures ECG COMPLETE ECG ROUTINE ECG W/LEAST 12 LDS W/I&R Laura Hernandez APRN.DUMPER [address] [place] [address] [facility] [place] [address] [place] [address] Referral ID Status Reason Start Date Expiration Date Visits Requested Visits Authorized [id number] Pending Review Auto-Generat ed Referral 03/23/2023 03/22/2024 1 1 [facility] for referral (narrative)* Diagnostic Procedure Only (Routine) - Pending Review Specialty Diagnoses / Procedures Referred By Sadiaac t Referred To Contact [facility] Diagnoses Right axillary swelling Pain in right axilla Procedures DELTA DIAGNOSTIC RIGHT DIAGNOSTIC MAMMOGRAPHY COMPUTER-AIDED DETCJ UNI Renetta Kline APRN.ANDROID DEVELOPER [address] [place] [address] [facility] [address] [place] [address] Referral ID Status Reason Start Date Expiration Date Visits Requested Visits Authorized [id number] Pending Review Auto-Generat ed Referral 3 06/02/2024 1 1 * Diagnostic Procedure Only (Routine) - Authorized Specialty Diagnoses / Procedures Referred By Contac t Referred To Contact [facility] Diagnoses Right axillary swelling Pain in right axilla Procedures US AXILLA ONLY RIGHT US LMTD JOINT/OTH NONVASC XTR STRUX R-T W/IMG Renetta Kline APRN.ANDROID DEVELOPER [address] [place] [address] [facility] [address] [place] [address] Referral ID Status Reason Start Date Expiration Date Visits Requested Visits Authorized [id number] Authorized Auto-Generat ed Referral 3 06/02/2024 1 1 [facility] for referral (narrative)* Diagnostic Procedure Only (Routine) - Closed Specialty Diagnoses / Procedures Referred By Contac t Referred To Contact X[facility] IMAG[facility] Diagnoses Other constipation Procedures XR ABDOMEN 1V SUPINE RADIOLOGIC EXAM ABDOMEN 1 VIEW Roselyn Tobar PA-C [address] [place] [address] [place] [address] Referral ID Status Reason Start Date Expiration Date V isits Requested Visits Authorized [id number] Closed Auto-Generate d Referral 10/26/2022 11/25/2023 1 1 [facility] for referral (narrative)* Outpatient Procedure (Routine) - Closed Specialty Diagnoses / Procedures Referred By Contac t Referred To Contact [facility] Diagnoses Irritable bowel syndrome with constipation Procedures COLONOSCOPY DIAGNOSTIC COLONOSCOPY FLX DX W/COLLJ SPEC WHEN PFRMD Roselny Tobar PA-C [address] [place] [address] [facility] [address] [place] [address] Referral ID Status Reason Start Date Expiration Date V isits Requested Visits Authorized [id number] Closed Auto-Generate d Referral 01/05/2023 01/06/2024 1 1 [facility] for referral (narrative)* Diagnostic Procedure Only (Routine) - Closed Specialty Diagnoses / Procedures Referred By Contac t Referred To Contact [facility] Diagnoses Right axillary swelling Pain in right axilla Procedures US BREAST LTD RIGHT US BREAST UNI REAL TIME WITH IMAGE LIMITED Renetta Kline APRN.CNS [address] [place] [address] [facility] [address] [place] [address] Referral ID Status Reason Start Date Expiration Date V isits Requested Visits Authorized [id number] Closed Auto-Generate d Referral 05/10/2023 06/08/2024 1 1 [facility] for referral (narrative)* Diagnostic Procedure Only (Routine) - Authorized Specialty Diagnoses / Procedures Referred By Contac t Referred To Contact [facility] Diagnoses RUQ abdominal pain Nausea Procedures US ABD RIGHT UPPER QUADRANT US ABDOMINAL REAL TIME W/IMAGE LIMITED Laura Hernandez APRN.DUMPER [address] [place] [address] [place] [address] Referral ID Status Reason Start Date Expiration Date Visits Requested Visits Authorized [id number] Authorized Auto-Generat ed Referral 06/08/2023 07/07/2024 1 1 [facility] for referral (narrative)* Diagnostic Procedure Only (Routine) - Closed Specialty Diagnoses / Procedures Referred By Contac t Referred To Contact [facility] Diagnoses RUQ abdominal pain Nausea Procedures US ABD RIGHT UPPER QUADRANT US ABDOMINAL REAL TIME W/IMAGE LIMITED Laura Hernandez APRN.DUMPER [address] [place] [address] [place] [address] Referral ID Status Reason Start Date Expiration Date V isits Requested Visits Authorized [id number] Closed Auto-Generate d Referral 06/08/2023 07/07/2024 1 1 [facility] for referral (narrative)* Diagnostic Procedure Only (Routine) - Authorized Specialty Diagnoses / Procedures Referred By Contac t Referred To Contact [facility] Diagnoses Axillary tenderness, right Axillary mass, right Procedures DELTA DIAGNOSTIC RIGHT DIAGNOSTIC MAMMOGRAPHY COMPUTER-AIDED DETCJ UNI Laura Hernandez APRN.DUMPER [address] [place] [address] [facility] [address] [place] [address] Referral ID Status Reason Start Date Expiration Date Visits Requested Visits Authorized [id number] Authorized Auto-Generat ed Referral 09/18/2023 10/17/2024 1 1 * Diagnostic Procedure Only (Routine) - Authorized Specialty Diagnoses / Procedures Referred By Contac t Referred To Contact [facility] Diagnoses Axillary tenderness, right Axillary mass, right Procedures US BREAST LTD RIGHT US BREAST UNI REAL TIME WITH IMAGE LIMITED Laura Hernandez APRN.DUMPER [address] [place] [address] [facility] [address] [place] [address] Referral ID Status Reason Start Date Expiration Date Visits Requested Visits Authorized [id number] Authorized Auto-Generat ed Referral 09/18/2023 10/17/2024 1 1 [facility] for referral (narrative)* Diagnostic Procedure Only (Routine) - Authorized Specialty Diagnoses / Procedures Referred By Contac t Referred To Contact [facility] Diagnoses Axillary tenderness, right Mass of right axilla Procedures DELTA DIAGNOSTIC BILATERAL DIAGNOSTIC MAMMOGRAPHY COMPUTER-AIDED DETCJ BI Laura Hernandez APRN.DUMPER [address] [place] [address] [facility] [address] [place] [address] Referral ID Status Reason Start Date Expiration Date Visits Requested Visits Authorized [id number] Authorized Auto-Generat ed Referral 09/26/2023 10/24/2024 1 1 [facility] for referral (narrative)* Diagnostic Procedure Only (Routine) - Closed Specialty Diagnoses / Procedures Referred By Contac t Referred To Contact [facility] Diagnoses Axillary tenderness, right Axillary mass, right Procedures US BREAST LTD RIGHT US BREAST UNI REAL TIME WITH IMAGE LIMITED Laura Hernandez APRN.DUMPER [address] [place] [address] [facility] [address] [place] [address] Referral ID Status Reason Start Date Expiration Date V isits Requested Visits Authorized [id number] Closed Auto-Generate d Referral 09/18/2023 10/17/2024 1 1 [facility] for referral (narrative)* Outpatient Procedure (Routine) - Additional Clinical Info Needed Specialty Diagnoses / Procedures Referred By Ml caballero Referred To Contact [facility] [place] Diagnoses Chest pain, unspecified type Shortness of breath Abnormal EKG Procedures ECHO ECHO TTHRC R-T 2D W/WOM-MODE COMPL SPEC&COLR D Laura Hernandez APRN.DUMPER [address] [place] [address] [address] [place] [address] Referral ID Status Reason Start Date Expiration Date Visits Requested Visits Authorized [id number] Additional Clinical Info Needed Auto-Generat ed Referral 10/17/2023 10/16/2024 1 1 * Outpatient Procedure (Routine) - Pending Review Specialty Diagnoses / Procedures Referred By Ml caballero Referred To Contact [facility] [place] Diagnoses Chest pain, unspecified type Procedures ECG COMPLETE ECG ROUTINE ECG W/LEAST 12 LDS W/I&R Laura Hernandez APRN.DUMPER [address] [place] [address] [facility] [address] [place] [address] Referral ID Status Reason Start Date Expiration Date Visits Requested Visits Authorized [id number] Pending Review Auto-Generat ed Referral 10/17/2023 10/16/2024 1 1 [facility] for referral (narrative)* Diagnostic Procedure Only (Routine) - Authorized Specialty Diagnoses / Procedures Referred By Ml caballero Referred To Contact [facility] Diagnoses Encounter for gynecological examination (general) (routine) without abnormal findings Encounter for screening mammogram for breast cancer Procedures DELTA SCREENING W MYRIAM SCREENING DIGITAL BREAST TOMOSYNTHESIS BI SCREENING MAMMOGRAPHY BI 2-VIEW BREAST INC Carin Lewis MD [address] [place] [address] [facility] [address] [place] [address] Referral ID Status Reason Start Date Expiration Date Visits Requested Visits Authorized [id number] Authorized Auto-Generat ed Referral 10/25/2023 11/23/2024 1 1 [facility] for referral (narrative)* Outpatient Procedure (Urgent) - Authorized Specialty Diagnoses / Procedures Referred By Contac t Referred [facility] Diagnoses Numbness and tingling of both upper extremities Pain in both upper extremities Procedures EMG(NEURO/NI) NERVE CONDUCTION STUDIES 9-10 STUDIES María Elena Duarte APRN.DUMPER [address] [place] [address] [facility] [place] [address] [place] [address] Referral ID Status Reason Start Date Expiration Date Visits Requested Visits Authorized [id number] Authorized Auto-Generat ed Referral 11/01/2023 07/08/2024 1 1 [facility] for referral (narrative)* Diagnostic Procedure Only (Routine) - Closed Specialty Diagnoses / Procedures Referred By Contac t Referred To Contact X[facility] IMAG[facility] Diagnoses Pain in axilla, unspecified laterality Numbness and tingling of both upper extremities Procedures XR SHOULDER GENERAL 3V OR MORE AP/TRUE AP/OTHER RIGHT RADEX SHOULDER COMPLETE MINIMUM 2 VIEWS Laura Hernandez APRN.DUMPER [address] [place] [address] [place] [address] Referral ID Status Reason Start Date Expiration Date V isits Requested Visits Authorized [id number] Closed Auto-Generate d Referral 2023 01/26/2025 1 1 * Diagnostic Procedure Only (Routine) - Closed Specialty Diagnoses / Procedures Referred By Contac t Referred To Contact [facility] IM[facility] Diagnoses Pain in axilla, unspecified laterality Numbness and tingling of both upper extremities Procedures XR SHOULDER GENERAL 3V OR MORE AP/TRUE AP/OTHER LEFT RADEX SHOULDER COMPLETE MINIMUM 2 VIEWS Laura Hernandez APRN.DUMPER [address] [place] [address] [place] [address] Referral ID Status Reason Start Date Expiration Date V isits Requested Visits Authorized [id number] Closed Auto-Generate d Referral 2023 01/26/2025 1 1 * Diagnostic Procedure Only (Routine) - Closed Specialty Diagnoses / Procedures Referred By Contac t Referred To Contact [facility] IMAG[facility] Diagnoses Pain in axilla, unspecified laterality Numbness and tingling of both upper extremities Procedures XR CERV OTHER 4V AP/LAT/FLX/EXT RADEX SPINE CERVICAL 4 OR 5 VIEWS Laura Hernandez APRN.DUMPER [address] [place] [address] [place] [address] Referral ID Status Reason Start Date Expiration Date V isits Requested Visits Authorized [id number] Closed Auto-Generate d Referral 2023 01/26/2025 1 1 * Diagnostic Procedure Only (Routine) - Closed Specialty Diagnoses / Procedures Referred By Contac t Referred To Contact [facility] Diagnoses Acute right ankle pain Procedures XR ANKLE GENERAL 3V AP/LAT/OBL RIGHT RADEX ANKLE COMPLETE MINIMUM 3 VIEWS Laura Hernandez APRN.DUMPER [address] [place] [address] [place] [address] Referral ID Status Reason Start Date Expiration Date V isits Requested Visits Authorized [id number] Closed Auto-Generate d Referral 2023 01/26/2025 1 1 [facility] for referral (narrative)* Diagnostic Procedure Only (Routine) - Closed Specialty Diagnoses / Procedures Referred By Contac t Referred To Contact [facility] Diagnoses Pain in left hernandez Procedures XR TIBIA FIBULA 2V AP/LAT LEFT RADIOLOGIC EXAMINATION TIBIA & FIBULA 2 VIEWS Laura Hernandez APRN.DUMPER [address] [place] [address] [place] [address] Referral ID Status Reason Start Date Expiration Date V isits Requested Visits Authorized [id number] Closed Auto-Generate d Referral 02/21/2024 03/22/2025 1 1 [facility] for referral (narrative)* Diagnostic Procedure Only (Routine) - Closed Specialty Diagnoses / Procedures Referred By Contac t Referred To Contact X[facility] IM[facility] Diagnoses Pain in left hernandez Procedures XR TIBIA FIBULA 2V AP/LAT LEFT RADIOLOGIC EXAMINATION TIBIA & FIBULA 2 VIEWS Laura Hernandez APRN.DUMPER [address] [place] [address] [place] [address] Referral ID Status Reason Start Date Expiration Date V isits Requested Visits Authorized [id number] Closed Auto-Generate d Referral 02/21/2024 03/22/2025 1 1 [facility] for referral (narrative)* Diagnostic Procedure Only (Urgent) - Closed Specialty Diagnoses / Procedures Referred By Contac t Referred To Contact XR IMAG[facility] Diagnoses Fall, initial encounter Procedures XR HIP GENERAL 3V PELV/AP/LAT RIGHT RADEX HIP UNILATERAL WITH PELVIS 2-3 VIEWS Kathy Mueller PA-C [address] [place] [address] [place] [address] Referral ID Status Reason Start Date Expiration Date V isits Requested Visits Authorized [id number] Closed Auto-Generate d Referral 08/18/2021 09/17/2022 1 1 * Diagnostic Procedure Only (Urgent) - Closed Specialty Diagnoses / Procedures Referred By Contac t Referred To Contact XR IMAG[facility] Diagnoses Fall, initial encounter Procedures XR LUMBAR GENERAL 3V AP/LAT/L5-S1 RADEX SPINE LUMBOSACRAL 2/3 VIEWS Kathy Mueller PA-C [address] [place] [address] [place] [address] Referral ID Status Reason Start Date Expiration Date V isits Requested Visits Authorized [id number] Closed Auto-Generate d Referral 08/18/2021 09/17/2022 1 1 * Diagnostic Procedure Only (Urgent) - Closed Specialty Diagnoses / Procedures Referred By Contac t Referred To Contact X[facility] IMAG[facility] Diagnoses Fall, initial encounter Procedures XR SHOULDER GENERAL 3V OR MORE AP/TRUE AP/OTHER RIGHT RADEX SHOULDER COMPLETE MINIMUM 2 VIEWS Kathy Mueller PA-C [address] [place] [address] [place] [address] Referral ID Status Reason Start Date Expiration Date V isits Requested Visits Authorized [id number] Closed Auto-Generate d Referral 08/18/2021 09/17/2022 1 1 [facility] for referral (narrative)* Diagnostic Procedure Only (Routine) - Closed Specialty Diagnoses / Procedures Referred By Contac t Referred To Contact X[facility] IM[facility] Diagnoses Chronic RUQ pain Procedures XR ABDOMEN 1V SUPINE RADIOLOGIC EXAM ABDOMEN 1 VIEW Roselyn Tobar PA-C [address] [place] [address] [place] [address] Referral ID Status Reason Start Date Expiration Date V isits Requested Visits Authorized [id number] Closed Auto-Generate d Referral 06/22/2021 07/22/2022 1 1 [facility] for referral (narrative)No reason for referral information availableMadeline Medical Services Work Phone: Reason for visit Narrative* Outpatient Procedure (Routine) - Closed Specialty Diagnoses / Procedures Referred By Contac t Referred To Contact [facility] Diagnoses Chronic RUQ pain 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 Procedures EGD DIAGNOSTIC ESOPHAGOGASTRODUODENOS COPY TRANSORAL DIAGNOSTIC Kalka, Roselyn, PA-C [address] [place] [address] [facility] [place] [address] [place] [address] Referral ID Status Reason Start Date Expiration Date V isits Requested Visits Authorized [id number] Closed Auto-Generate d Referral 10/05/2021 10/05/2022 1 1 [facility] for visit Narrative* Diagnostic Procedure Only (Routine) - Closed Specialty Diagnoses / Procedures Referred By Contac t Referred To Contact [facility] Diagnoses Encounter for screening mammogram for malignant neoplasm of breast Procedures DELTA SCREENING SCREENING MAMMOGRAPHY BI 2-VIEW BREAST INC Laura Schafer APRN.DUMPER [address] [place] [address] [facility] [address] [place] [address] Referral ID Status Reason Start Date Expiration Date V isits Requested Visits Authorized [id number] Closed Auto-Generate d Referral 11/17/2021 12/17/2022 1 1 [facility] for visit Narrative* Outpatient Procedure (Routine) - Closed Specialty Diagnoses / Procedures Referred By Contac t Referred To Contact [facility] Diagnoses Chronic Helicobacter pylori gastritis Procedures EGD DIAGNOSTIC ESOPHAGOGASTRODUODENOSCO PY TRANSORAL DIAGNOSTIC Roselyn Tobar PA-C [address] [place] [address] [facility] [address] [place] [address] Referral ID Status Reason Start Date Expiration Date V isits Requested Visits Authorized [id number] Closed Auto-Generate d Referral 08/16/2022 08/16/2023 1 1 [facility] for visit Narrative* Diagnostic Procedure Only (Routine) - Closed Specialty Diagnoses / Procedures Referred By Contac t Referred To Contact XR IMAGING Diagnoses Dysphagia, unspecified type Procedures XR ESOPHAGRAM RADIOLOGIC EXAM ESOPHAGUS SINGLE CONTRAST STUDY Roselyn Tobar PA-C [address] [place] [address] Xr Imaging Referral ID Status Reason Start Date Expiration Date V isits Requested Visits Authorized [id number] Closed Auto-Generate d Referral 10/26/2022 11/25/2023 1 1 [facility] for visit Narrative* Diagnostic Procedure Only (Routine) - Closed Specialty Diagnoses / Procedures Referred By Contac t Referred To Contact XR IMAGING Diagnoses Other constipation Procedures XR ABDOMEN 1V SUPINE RADIOLOGIC EXAM ABDOMEN 1 VIEW Roselyn Tobar PA-C [address] [place] [address] [place] [address] Referral ID Status Reason Start Date Expiration Date V isits Requested Visits Authorized [id number] Closed Auto-Generate d Referral 10/26/2022 11/25/2023 1 1 [facility] for visit Narrative* Diagnostic Procedure Only (Routine) - Closed Specialty Diagnoses / Procedures Referred By Contac t Referred To Contact BR IMAGING Diagnoses Axillary tenderness, right Mass of right axilla Procedures DELTA DIAGNOSTIC BILATERAL DIAGNOSTIC MAMMOGRAPHY COMPUTER-AIDED DETCJ BI Laura Hernandez APRN.DUMPER [address] [place] [address] Br Imaging [address] [place] [address] Referral ID Status Reason Start Date Expiration Date V isits Requested Visits Authorized [id number] Closed Auto-Generate d Referral 09/26/2023 10/24/2024 1 1 [facility] for visit Narrative* Diagnostic Procedure Only (Routine) - Closed Specialty Diagnoses / Procedures Referred By Contac t Referred To Contact XR IMAGING Diagnoses Pain in axilla, unspecified laterality Numbness and tingling of both upper extremities Procedures XR SHOULDER GENERAL 3V OR MORE AP/TRUE AP/OTHER RIGHT RADEX SHOULDER COMPLETE MINIMUM 2 VIEWS Laura Hernandez, HOUSESMITH.DUMPER [address] [place] [address] [place] [address] Referral ID Status Reason Start Date Expiration Date V isits Requested Visits Authorized [id number] Closed Auto-Generate d Referral 2023 01/26/2025 1 1 [facility] for visit Narrative* Diagnostic Procedure Only (Routine) - Closed Specialty Diagnoses / Procedures Referred By Contac t Referred To Contact XR IMAGING Diagnoses Pain in left hernandez Procedures XR TIBIA FIBULA 2V AP/LAT LEFT RADIOLOGIC EXAMINATION TIBIA & FIBULA 2 VIEWS Older, Laura, HOUSESMITH.DUMPER [address] [place] [address] [place] [address] Referral ID Status Reason Start Date Expiration Date V isits Requested Visits Authorized [id number] Closed Auto-Generate d Referral 02/21/2024 03/22/2025 1 1 [facility] for visit Narrative* Diagnostic Procedure Only (Urgent) - Closed Specialty Diagnoses / Procedures Referred By Contac t Referred To Contact XR IMAGING Diagnoses Fall, initial encounter Procedures XR HIP GENERAL 3V PELV/AP/LAT RIGHT RADEX HIP UNILATERAL WITH PELVIS 2-3 VIEWS Kathy Mueller PA-C [address] [place] [address] [place] [address] Referral ID Status Reason Start Date Expiration Date V isits Requested Visits Authorized [id number] Closed Auto-Generate d Referral 08/18/2021 09/17/2022 1 1 [facility] for visit Narrative* Diagnostic Procedure Only (Routine) - Closed Specialty Diagnoses / Procedures Referred By Contac t Referred To Contact XR IMAGING Diagnoses Chronic RUQ pain Procedures XR ABDOMEN 1V SUPINE RADIOLOGIC EXAM ABDOMEN 1 VIEW Roselyn Tobar PA-C [address] [place] [address] [place] [address] Referral ID Status Reason Start Date Expiration Date V isits Requested Visits Authorized [id number] Closed Auto-Generate d Referral 06/22/2021 07/22/2022 1 1 [facility] for visit Narrative* Diagnostic Procedure Only (Routine) - Closed Specialty Diagnoses / Procedures Referred By Contac t Referred To Contact BR IMAGING Diagnoses Right axillary swelling Procedures US AXILLA ONLY RIGHT US LMTD JOINT/OTH NONVASC XTR STRUX R-T W/IDAG Melanie Shook MD [address] [place] [address] Phone: tel: fax: BR IMAGING [address] [place] [address] Referral ID Status Reason Start Date Expiration Date V isits Requested Visits Authorized [id number] Closed Auto-Generate d Referral 11/06/2024 12/06/2025 1 1 [facility] Summary Purpose Family History No Family History Records Found Relationship Condition Age at Onset Recorded Date/T adarsh Unknown Family History?- Unknown October 09, 2015 1:01pm Family History?- Unknown October 09, 2015 1:01pm Family History?Cancer Unknown October 09, 2015 1:01pm Relationship Condition Age at Onset Recorded Date/T adarsh mother Hypertension Unknown Cardiac disease Unknown Eczema Unknown Abdominal aortic aneurysm (AAA) Unknown Fibromyalgia Unknown father Malignant neoplasm of lung Unknown Alcohol abuse Unknown Malignant neoplasm of colon Unknown sister Hypertension Unknown Asthma Unknown Migraine headache Unknown Gout Unknown aunt Malignant neoplasm of breast Unknown Advance Directives No Advanced Directives Records FoundDocuments on File Type Date Recorded Patient Eap Counselor Expl anation Advance Directive(s) 01/18/2021 9:33 PM Advance Directive(s) 12/13/2020 6:35 PM Advance Directive(s) 11/24/2020 11:42 AM Advance Directive(s) 08/25/2020 10:35 AM Advance Directive(s) 08/23/2020 5:18 PM Advance Directive(s) 02/13/2020 9:06 AM Advance Directive(s) 12/03/2017 7:34 PM Advance Directive(s) 05/03/2017 6:32 PM Advance Directive(s) 03/13/2017 8:25 AM Advance Directive(s) 03/08/2017 9:28 AM Advance Directive(s) 01/16/2017 5:49 PM Advance Directive(s) 12/10/2015 12:55 PM Documents on File Type Date Recorded Patient Eap Counselor Expl anation Advance Directive(s) 10/06/2021 8:00 AM Advance Directive(s) 01/18/2021 9:33 PM Advance Directive(s) 12/13/2020 6:35 PM Advance Directive(s) 11/24/2020 11:42 AM Advance Directive(s) 08/25/2020 10:35 AM Advance Directive(s) 08/23/2020 5:18 PM Advance Directive(s) 02/13/2020 9:06 AM Advance Directive(s) 12/03/2017 7:34 PM Advance Directive(s) 05/03/2017 6:32 PM Advance Directive(s) 03/13/2017 8:25 AM Advance Directive(s) 03/08/2017 9:28 AM Advance Directive(s) 01/16/2017 5:49 PM Advance Directive(s) 12/10/2015 12:55 PM Documents on File Type Date Recorded Patient Eap Counselor Expl anation Advance Directive(s) 10/06/2021 8:00 AM Advance Directive(s) 01/18/2021 9:33 PM Advance Directive(s) 12/13/2020 6:35 PM Advance Directive(s) 11/24/2020 11:42 AM Advance Directive(s) 08/25/2020 10:35 AM Advance Directive(s) 08/23/2020 5:18 PM Advance Directive(s) 02/13/2020 9:06 AM Advance Directive(s) 12/03/2017 7:34 PM Advance Directive(s) 05/03/2017 6:32 PM Advance Directive(s) 03/13/2017 8:25 AM Advance Directive(s) 03/08/2017 9:28 AM Advance Directive(s) 01/16/2017 5:49 PM Advance Directive(s) 12/10/2015 12:55 PM Advance Directive Response Recorded Date/ Time Advance Directives Yes May 05, 2016 9:10am Living Will No November 28, 2021 3 :50pm Power of Scuba Diving Instructor No November 28, 2021 3:50pm Advance Directive Response Recorded Date/ Time Advance Directives Yes May 05, 2016 9:10am Living Will No February 09, 2022 10:09am Power of Scuba Diving Instructor No February 09 10:09am Advance Directive Response Recorded Date/ Time Advance Directives Yes May 05, 2016 9:10am Living Will No October 29, 2022 2:28pm Power of Scuba Diving Instructor No October 29 2:28pm Advance Directive Response Recorded Date/ Time Advance Directives Yes May 05, 2016 8:10am Living Will No October 29, 2022 1:28pm Power of Scuba Diving Instructor No October 29 1:28pm Advance Directive Response Recorded Date/ Time Advance Directives Yes May 05, 2016 8:10am Living Will No August 26 7:05pm Power of Scuba Diving Instructor No August 26, 2023 7:05pm Advance Directive Response Recorded Date/ Time Living Will No March 31, 2024 11:54am Do you have a Healthcare Power of Scuba Diving Instructor? No March 31, 2024 11:54am Living Will No January 21, 2024 5:52pm Do you have a Healthcare Power of Scuba Diving Instructor? No January 21, 2024 5:52pm Advance Directives Yes May 05, 2016 9:10am Advance Directive Response Recorded Date/ Time Living Will No January 21, 2024 5:52pm Do you have a Healthcare Power of Scuba Diving Instructor? No January 21, 2024 5:52pm Advance Directives Yes May 05, 2016 9:10am Medications Administered Section Inactive Administered Medications - up to 3 most recent administrations Medication Order MAR Action Action Date Dose Rate Site lactated ringers iv infusion 50 mL/hr, INTRAVENOUS, CONTINUOUS, Starting on Sun10/06/21 at 0830, Until Sun10/07/21 at 0413 New Bag/Syringe/Bottle 10/06/2021 8:29 AM EDT 50 mL/hr 50 mL/hr Inactive Administered Medications - up to 3 most recent administrations Medication Order MAR Action Action Date Dose Rate Site ipratropium-albuterol 3 mL nebulizer solution (DUONEB) 3 mL, INHALATION, ONCE, 1 dose, On Sun09/12/22 at 1330, PROTECT FROM LIGHT. The unit-dose vial should remain stored in the protective foil pouch until time of use., Preprocedure Given 09/12/2022 1:30 PM EST 3 mL lactated ringers iv infusion 30 mL/hr, INTRAVENOUS, CONTINUOUS, Starting on Sun09/12/22 at 1300, Until Sun09/12/22 at 1358, Preprocedure Continued by Anesthesia 09/12/2022 1:33 PM EST 30 mL/hr New Bag/Syringe/Bottle 09/12/2022 1:06 PM EST 30 mL/hr 3 0 mL/hr Inactive Administered Medications - up to 3 most recent administrations Medication Order MAR Action Action Date Dose Rate Site diphenhydrAMINE 12.5-50 mg injection (BENADRYL) 12.5-50 mg, INTRAVENOUS, DIRECTED, Starting on Sun01/12/23 at 1030, Until Sun01/12/23 at 1429, DOSING DIRECTED BY PHYSICIAN FOR PROCEDURAL SEDATION ONLY, Intraprocedure Given 01/12/2023 10:17 AM EDT 50 mg fentaNYL 50 mcg/mL 25-100 mcg injection (SUBLIMAZE) 25-100 mcg, INTRAVENOUS, DIRECTED, Starting on Sun01/12/23 at 1030, Until Sun01/12/23 at 1429, DOSING DIRECTED BY PHYSICIAN FOR PROCEDURAL SEDATION ONLY, Intraprocedure Given 01/12/2023 10:21 AM EDT 50 mcg Given 01/12/2023 10:15 AM EDT 50 mcg lactated ringers iv infusion 75 mL/hr, INTRAVENOUS, CONTINUOUS, Starting on Sun01/12/23 at 1030, Until Sun01/12/23 at 1008, Preprocedure New Bag/Syringe/Bottle 01/12/2023 10:44 AM EDT 75 mL/hr 75 mL/hr Wrist, Right New Bag/Syringe/Bottle 01/12/2023 10:00 AM EDT 75 mL/hr 75 mL/hr meperidine (PF) 12.5-100 mg injection (DEMEROL) 12.5-100 mg, INTRAVENOUS, DIRECTED, Starting on Sun01/12/23 at 1100, Until Sun01/12/23 at 1459, DOSING DIRECTED BY PHYSICIAN FOR PROCEDURAL SEDATION ONLY, Intraprocedure Given 01/12/2023 10:25 AM EDT 50 mg midazolam 1-5 mg injection (VERSED) 1-5 mg, INTRAVENOUS, DIRECTED, Starting on Sun01/12/23 at 1030, Until Sun01/12/23 at 1429, DOSING DIRECTED BY PHYSICIAN FOR PROCEDURAL SEDATION ONLY, Intraprocedure Given 01/12/2023 10:19 AM EDT 2 mg Given 01/12/2023 10:15 AM EDT 3 mg Reason for Referral Specialty Diagnoses / Procedures Referred By Ml caballero Referred To Contact Infectious Diseases Diagnoses Helicobacter pylori infection Procedures CONSULT TO INFECTIOUS DISEASES OFFICE/OUTPATIENT [facility] 60-74 MINUTES Roselyn Tobar PA-C [address] [place] [address] Referral ID Status Reason Start Date Expiration Date Visits Requested Visits Authorized [id number] Authorized PCP Requested Referral 11/10/2021 11/10/2022 1 1 Specialty Diagnoses / Procedures Referred By Contac t Referred To Contact Diagnoses Irritable bowel syndrome with constipation Roselyn Tobar PA-C [address] [place] [address] Referral ID Status Reason Start Date Expiration Date V isits Requested Visits Authorized [id number] Pending Review 1 1 Specialty Diagnoses / Procedures Referred By Contac t Referred To Contact CT IMAGING Diagnoses Vomiting without nausea, unspecified vomiting type Constipation, unspecified constipation type Acute LUQ pain Nausea Procedures CT ABD/PEL W IVCON CT ABD & PELVIS W/CONTRAST Laura Hernandez, HOUSESMITH.DUMPER [address] [place] [address] Ct Imaging Referral ID Status Reason Start Date Expiration Date V isits Requested Visits Authorized [id number] Open Auto-Generat ed Referral Patient Cleared - Admin/Chairm an/Director advise to proceed 11/22/2022 12/22/2023 2 2 Specialty Diagnoses / Procedures Referred By Contac t Referred To Contact Diagnoses Irritable bowel syndrome with constipation Laura Hernandez, HOUSESMITH.DUMPER [address] [place] [address] Referral ID Status Reason Start Date Expiration Date Visits Re quested Visits Authorized [id number] Closed 1 1 Specialty Diagnoses / Procedures Referred By Contac t Referred To Contact Diagnoses Hiatal hernia 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 Procedures CONSULT TO BARIATRIC SURGERY Roselyn Tobar PA-C [address] [place] [address] Referral ID Status Reason Start Date Expiration Date V isits Requested Visits Authorized [id number] Ref Not Required 02/28/2023 04/29/2023 1 1 Specialty Diagnoses / Procedures Referred By Contac t Referred To Contact CT IMAGING Diagnoses Vomiting without nausea, unspecified vomiting type Constipation, unspecified constipation type Acute LUQ pain Nausea Procedures CT ABD/PEL W IVCON CT ABD & PELVIS W/CONTRAST Laura Hernandez, HOUSESMITH.DUMPER [address] [place] [address] [place] [address] Referral ID Status Reason Start Date Expiration Date V isits Requested Visits Authorized [id number] Closed Auto-Generat ed Referral Patient Cleared - Admin/Chairm an/Director advise to proceed or did not respond 11/23/2022 01/22/2023 2 2 Specialty Diagnoses / Procedures Referred By Contac t Referred To Contact General Surgery Diagnoses Biliary calculus of other site without obstruction RUQ abdominal pain Procedures CONSULT TO GENERAL SURGERY OFFICE/OUTPATIENT [facility] 60-74 MINUTES Older, EVELYN Lewis.DUMPER [address] [place] [address] Referral ID Status Reason Start Date Expiration Date V isits Requested Visits Authorized [id number] Closed PCP Requested Referral 06/13/2023 06/12/2024 1 1 Referral ID Status Reason Start Date Expiration Date Visits Re quested Visits Authorized [id number] Closed 1 1 Specialty Diagnoses / Procedures Referred By Contac t Referred To Contact Gastroenterology Diagnoses Hiatal hernia 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 Gastroesophageal reflux disease with esophagitis, unspecified whether hemorrhage Irritable bowel syndrome with constipation Procedures CONSULT TO GASTROENTEROLOGY OFFICE/OUTPATIENT [facility] 60 MINUTES Older, EVELYN Lewis.DUMPER [address] [place] [address] Referral ID Status Reason Start Date Expiration Date Visits Requested Visits Authorized [id number] Authorized PCP Requested Referral 01/16/2024 01/15/2025 1 1 Specialty Diagnoses / Procedures Referred By Contac t Referred [facility] Contact [facility] Diagnoses Syncope, unspecified syncope type Procedures US CAROTID ARTERIES [facility] DUPLEX SCAN EXTRACRANIAL ART COMPL BI STUDY Older, Laura, EVELYN.DUMPER [address] [place] [address] [facility] [address] [place] [address] Referral ID Status Reason Start Date Expiration Date Visits Requested Visits Authorized [id number] Authorized Auto-Generat ed Referral 01/16/2024 01/15/2025 1 1 Specialty Diagnoses / Procedures Referred By Contac t Referred To Contact Cardiology Diagnoses Syncope, unspecified syncope type Procedures CONSULT TO CARDIOLOGY OFFICE/OUTPATIENT [facility] 60 MINUTES Older, EVELYN Lewis.DUMPER [address] [place] [address] Referral ID Status Reason Start Date Expiration Date Visits Requested Visits Authorized [id number] Authorized PCP Requested Referral 01/16/2024 01/15/2025 1 1 Specialty Diagnoses / Procedures Referred By Contac t Referred To Contact [facility] Diagnoses Syncope, unspecified syncope type Procedures ECG COMPLETE ECG ROUTINE ECG W/LEAST 12 LDS W/I&R Laura Hernandez APRN.DUMPER [address] [place] [address] [facility] [address] [place] [address] Referral ID Status Reason Start Date Expiration Date Visits Requested Visits Authorized [id number] Pending Review Auto-Generat ed Referral 01/16/2024 01/15/2025 1 1 Specialty Diagnoses / Procedures Referred By Contac t Referred To Contact Cardiology Diagnoses Syncope and collapse Procedures CONSULT TO CARDIOLOGY OFFICE/OUTPATIENT [facility] 60 MINUTES Laura Hernandez APRN.DUMPER [address] [place] [address] Referral ID Status Reason Start Date Expiration Date Visits Requested Visits Authorized [id number] Authorized PCP Requested Referral 03/14/2024 03/14/2025 1 1 Specialty Diagnoses / Procedures Referred By Contac t Referred To Contact CT IMAGING Diagnoses Syncope and collapse Procedures CT BRAIN WO IVCON CT HEAD/BRAIN W/O CONTRAST MATERIAL Laura Hernandez APRN.DUMPER [address] [place] [address] [place] [address] Referral ID Status Reason Start Date Expiration Date Visits Requested Visits Authorized [id number] Authorized Auto-Generat ed Referral 03/14/2024 04/13/2025 1 1 Referral ID Status Reason Start Date Expiration Date V isits Requested Visits Authorized [id number] Closed Auto-Generate d Referral 03/14/2024 04/13/2025 1 1 Chief Complaint and Reason for Visit Chief Complaint RIGHT FLANK/ BACK PA IN SOB Chief Complaint SOB COPD NICOTINE DEP NICOTINE DEP Reason for Visit COPD (chronic obstru ctive pulmonary disease) Lung nodule Nicotine dependence, cigarettes, in remission Chief Complaint SOB COPD NICOTINE DEP NICOTINE DEP 1 M FU FOOT Reason for Visit COPD (chronic obstru ctive pulmonary disease) Lung nodule Nicotine dependence, cigarettes, in remission COPD (chronic obstructive pulmonary disease) Lung nodule Tobacco abuse Chief Complaint 1 M FU FOOT STRICTURE OF ARTERY Reason for Visit COPD (chronic obstru ctive pulmonary disease) Lung nodule Tobacco abuse Chief Complaint 3 M FU CONSTIPATION Reason for Visit Asthma-COPD overlap syndrome Smoking greater than 30 pack years Chief Complaint 3 M FU CONSTIPATION COPD COPD Reason for Visit Asthma-COPD overlap syndrome Smoking greater than 30 pack years Chief Complaint CONSTIPATION COPD COPD 4 m fu FOLLOW LUNG NODULE Reason for Visit Lung nodule Tobacco abuse Asthma-COPD overlap syndrome Chief Complaint Acute Illness Injection 3 M FU Chronic obstructive pulmonary disease, unspecified Chronic obstructive pulmonary disease, unspecified Reason for Visit Asthma-COPD overlap syndrome Smoking greater than 30 pack years Tobacco abuse Asthma-COPD overlap syndrome Chief Complaint Acute Illness Injection 3 M FU Chronic obstructive pulmonary disease, unspecified Chronic obstructive pulmonary disease, unspecified RIGHT BREAST SWELLING PAIN Reason for Visit Asthma-COPD overlap syndrome Smoking greater than 30 pack years Tobacco abuse Asthma-COPD overlap syndrome Chief Complaint 3 M FU Chronic obstructive pulmonary disease, unspecified Chronic obstructive pulmonary disease, unspecified RIGHT BREAST SWELLING PAIN CHEST PAIN chest pain Reason for Visit Tobacco abuse Asthma-COPD overlap syndrome Chief Complaint Admit Date 6 M FU October 07, 2024 8:22 am SMOKER January 01, 2025 1:39 pm 3 M FU January 06, 2025 9:23a m Reason for Visit Admit Date Duggan esophagus determined by endoscop y October 07, 2024 8:22am Gastritis October 07, 2024 8:22 am Sphincter of Oddi dysfunction October 07, 2024 8:22am Chief Complaint Admit Date 6 M FU October 07, 2024 8:22 am SMOKER January 01, 2025 1:39 pm 3 M FU January 06, 2025 9:23a m 7 m fu January 14, 2025 8:01a m Reason for Visit Admit Date Duggan esophagus determined by endoscop y October 07, 2024 8:22am Gastritis October 07, 2024 8:22 am Sphincter of Oddi dysfunction October 07, 2024 8:22am Duggan esophagus determined by endoscop y January 06, 2025 9:23am Gastritis January 06, 2025 9:23a m Sphincter of Oddi dysfunction January 06, 2025 9:23am Hypoxia January 14, 2025 8:01a m Asthma-COPD overlap syndrome January 14 025 8:01am Chief Complaint Admit Date SMOKER January 01, 2025 1:39 pm 3 M FU January 06, 2025 9:23a m 7 m fu January 14, 2025 8:01a m Asthma- Severe Persistent Asthma February 06, 2025 8:50am Reason for Visit Admit Date Duggan esophagus determined by endoscop y January 06, 2025 9:23am Gastritis January 06, 2025 9:23a m Sphincter of Oddi dysfunction January 06, 2025 9:23am Hypoxia January 14, 2025 8:01a m Lung nodule January 14, 2025 8:01a m Asthma-COPD overlap syndrome January 14 8:01am Smoking greater than 30 pack years January 14, 2025 8:01am Asthma-COPD overlap syndrome February 06, 2025 8:50am Chief Complaint Admit Date SMOKER January 01, 2025 1:39 pm 3 M FU January 06, 2025 9:23a m 7 m fu January 14, 2025 8:01a m Asthma- Severe Persistent Asthma February 06, 2025 8:50am 1 M FU February 13, 2025 8:1 4am Health Concerns Infection Onset Date Last Indicated Resolved Time COVID-19 Rule-Out 08/25/2020 08/25/2020 08/25/2020 12:11 PM EST COVID-19 Rule-Out 08/31/2020 08/31/2020 09/01/2020 1:57 AM EST COVID-19 Rule-Out 05/18/2021 05/18/2021 05/19/2021 2:28 AM EST COVID-19 Confirmed 05/18/2021 05/18/2021 8:53 PM EST Additional Source Comments INFORMATION SOURCE (unrecogn ized section and content) DATE CREATED AUTHOR 01/01/2018 [facility] DATE CREATED AUTHOR AUTHOR'S ORGANIZ ATION 12/14/2019 [facility] DATE CREATED AUTHOR AUTHOR'S ORGANIZ ATION 04/29/2021 [facility] DATE CREATED AUTHOR AUTHOR'S ORGANIZ ATION 03/05/2023 [facility] DATE CREATED AUTHOR AUTHOR'S ORGANIZ ATION 02/27/2024 [facility] DATE CREATED AUTHOR AUTHOR'S ORGANIZ ATION 02/19/2025 [facility] DATE CREATED AUTHOR AUTHOR'S ORGANIZ ATION 02/23/2025 [facility] Source Comments (unrecognize d section and content) In the event this informatio n is protected by the Federal Confidentiality of Alcohol and Drug Abuse Patient Records regulations: The Federal rules restrict any use of the information to criminally investigate or prosecute any alcohol or drug abuse patient.[facility] the event this information is protected by the Federal Confidentiality of Alcohol and Drug Abuse Patient Records regulations: The Federal rules restrict any use of the information to criminally investigate or prosecute any alcohol or drug abuse patient.[facility] the event this information is protected by the Federal Confidentiality of Alcohol and Drug Abuse Patient Records regulations: The Federal rules restrict any use of the information to criminally investigate or prosecute any alcohol or drug abuse patient.[facility] the event this information is protected by the Federal Confidentiality of Alcohol and Drug Abuse Patient Records regulations: The Federal rules restrict any use of the information to criminally investigate or prosecute any alcohol or drug abuse patient.[facility] the event this information is protected by the Federal Confidentiality of Alcohol and Drug Abuse Patient Records regulations: The Federal rules restrict any use of the information to criminally investigate or prosecute any alcohol or drug abuse patient.[facility] the event this information is protected by the Federal Confidentiality of Alcohol and Drug Abuse Patient Records regulations: The Federal rules restrict any use of the information to criminally investigate or prosecute any alcohol or drug abuse patient.[facility] the event this information is protected by the Federal Confidentiality of Alcohol and Drug Abuse Patient Records regulations: The Federal rules restrict any use of the information to criminally investigate or prosecute any alcohol or drug abuse patient.[facility] the event this information is protected by the Federal Confidentiality of Alcohol and Drug Abuse Patient Records regulations: The Federal rules restrict any use of the information to criminally investigate or prosecute any alcohol or drug abuse patient.[facility] the event this information is protected by the Federal Confidentiality of Alcohol and Drug Abuse Patient Records regulations: The Federal rules restrict any use of the information to criminally investigate or prosecute any alcohol or drug abuse patient.[facility] the event this information is protected by the Federal Confidentiality of Alcohol and Drug Abuse Patient Records regulations: The Federal rules restrict any use of the information to criminally investigate or prosecute any alcohol or drug abuse patient.[facility] CenterIn the event this information is protected by the Federal Confidentiality of Alcohol and Drug Abuse Patient Records regulations: The Federal rules restrict any use of the information to criminally investigate or prosecute any alcohol or drug abuse patient.[facility] CenterIn the event this information is protected by the Federal Confidentiality of Alcohol and Drug Abuse Patient Records regulations: The Federal rules restrict any use of the information to criminally investigate or prosecute any alcohol or drug abuse patient.[facility] CenterIn the event this information is protected by the Federal Confidentiality of Alcohol and Drug Abuse Patient Records regulations: The Federal rules restrict any use of the information to criminally investigate or prosecute any alcohol or drug abuse patient.[facility] CenterIn the event this information is protected by the Federal Confidentiality of Alcohol and Drug Abuse Patient Records regulations: The Federal rules restrict any use of the information to criminally investigate or prosecute any alcohol or drug abuse patient.[facility] CenterIn the event this information is protected by the Federal Confidentiality of Alcohol and Drug Abuse Patient Records regulations: The Federal rules restrict any use of the information to criminally investigate or prosecute any alcohol or drug abuse patient.[facility] CenterIn the event this information is protected by the Federal Confidentiality of Alcohol and Drug Abuse Patient Records regulations: The Federal rules restrict any use of the information to criminally investigate or prosecute any alcohol or drug abuse patient.[facility] CenterIn the event this information is protected by the Federal Confidentiality of Alcohol and Drug Abuse Patient Records regulations: The Federal rules restrict any use of the information to criminally investigate or prosecute any alcohol or drug abuse patient.[facility] CenterIn the event this information is protected by the Federal Confidentiality of Alcohol and Drug Abuse Patient Records regulations: The Federal rules restrict any use of the information to criminally investigate or prosecute any alcohol or drug abuse patient.[facility] CenterIn the event this information is protected by the Federal Confidentiality of Alcohol and Drug Abuse Patient Records regulations: The Federal rules restrict any use of the information to criminally investigate or prosecute any alcohol or drug abuse patient.[facility] CenterIn the event this information is protected by the Federal Confidentiality of Alcohol and Drug Abuse Patient Records regulations: The Federal rules restrict any use of the information to criminally investigate or prosecute any alcohol or drug abuse patient.[facility] CenterIn the event this information is protected by the Federal Confidentiality of Alcohol and Drug Abuse Patient Records regulations: The Federal rules restrict any use of the information to criminally investigate or prosecute any alcohol or drug abuse patient.[facility] CenterIn the event this information is protected by the Federal Confidentiality of Alcohol and Drug Abuse Patient Records regulations: The Federal rules restrict any use of the information to criminally investigate or prosecute any alcohol or drug abuse patient.[facility] CenterIn the event this information is protected by the Federal Confidentiality of Alcohol and Drug Abuse Patient Records regulations: The Federal rules restrict any use of the information to criminally investigate or prosecute any alcohol or drug abuse patient.[facility] CenterIn the event this information is protected by the Federal Confidentiality of Alcohol and Drug Abuse Patient Records regulations: The Federal rules restrict any use of the information to criminally investigate or prosecute any alcohol or drug abuse patient.[facility] CenterIn the event this information is protected by the Federal Confidentiality of Alcohol and Drug Abuse Patient Records regulations: The Federal rules restrict any use of the information to criminally investigate or prosecute any alcohol or drug abuse patient.[facility] CenterIn the event this information is protected by the Federal Confidentiality of Alcohol and Drug Abuse Patient Records regulations: The Federal rules restrict any use of the information to criminally investigate or prosecute any alcohol or drug abuse patient.[facility] CenterIn the event this information is protected by the Federal Confidentiality of Alcohol and Drug Abuse Patient Records regulations: The Federal rules restrict any use of the information to criminally investigate or prosecute any alcohol or drug abuse patient.[facility] CenterIn the event this information is protected by the Federal Confidentiality of Alcohol and Drug Abuse Patient Records regulations: The Federal rules restrict any use of the information to criminally investigate or prosecute any alcohol or drug abuse patient.[facility] CenterIn the event this information is protected by the Federal Confidentiality of Alcohol and Drug Abuse Patient Records regulations: The Federal rules restrict any use of the information to criminally investigate or prosecute any alcohol or drug abuse patient.[facility] CenterIn the event this information is protected by the Federal Confidentiality of Alcohol and Drug Abuse Patient Records regulations: The Federal rules restrict any use of the information to criminally investigate or prosecute any alcohol or drug abuse patient.[facility] CenterIn the event this information is protected by the Federal Confidentiality of Alcohol and Drug Abuse Patient Records regulations: The Federal rules restrict any use of the information to criminally investigate or prosecute any alcohol or drug abuse patient.[facility] CenterIn the event this information is protected by the Federal Confidentiality of Alcohol and Drug Abuse Patient Records regulations: The Federal rules restrict any use of the information to criminally investigate or prosecute any alcohol or drug abuse patient.[facility] CenterIn the event this information is protected by the Federal Confidentiality of Alcohol and Drug Abuse Patient Records regulations: The Federal rules restrict any use of the information to criminally investigate or prosecute any alcohol or drug abuse patient.[facility] CenterIn the event this information is protected by the Federal Confidentiality of Alcohol and Drug Abuse Patient Records regulations: The Federal rules restrict any use of the information to criminally investigate or prosecute any alcohol or drug abuse patient.[facility] CenterIn the event this information is protected by the Federal Confidentiality of Alcohol and Drug Abuse Patient Records regulations: The Federal rules restrict any use of the information to criminally investigate or prosecute any alcohol or drug abuse patient.[facility] CenterIn the event this information is protected by the Federal Confidentiality of Alcohol and Drug Abuse Patient Records regulations: The Federal rules restrict any use of the information to criminally investigate or prosecute any alcohol or drug abuse patient.[facility] CenterIn the event this information is protected by the Federal Confidentiality of Alcohol and Drug Abuse Patient Records regulations: The Federal rules restrict any use of the information to criminally investigate or prosecute any alcohol or drug abuse patient.[facility] CenterIn the event this information is protected by the Federal Confidentiality of Alcohol and Drug Abuse Patient Records regulations: The Federal rules restrict any use of the information to criminally investigate or prosecute any alcohol or drug abuse patient.[facility] CenterIn the event this information is protected by the Federal Confidentiality of Alcohol and Drug Abuse Patient Records regulations: The Federal rules restrict any use of the information to criminally investigate or prosecute any alcohol or drug abuse patient.[facility] the event this information is protected by the Federal Confidentiality of Alcohol and Drug Abuse Patient Records regulations: The Federal rules restrict any use of the information to criminally investigate or prosecute any alcohol or drug abuse patient.[facility] CenterIn the event this information is protected by the Federal Confidentiality of Alcohol and Drug Abuse Patient Records regulations: The Federal rules restrict any use of the information to criminally investigate or prosecute any alcohol or drug abuse patient.[facility] CenterIn the event this information is protected by the Federal Confidentiality of Alcohol and Drug Abuse Patient Records regulations: The Federal rules restrict any use of the information to criminally investigate or prosecute any alcohol or drug abuse patient.[facility]In the event this information is protected by the Federal Confidentiality of Alcohol and Drug Abuse Patient Records regulations: The Federal rules restrict any use of the information to criminally investigate or prosecute any alcohol or drug abuse patient.[facility]In the event this information is protected by the Federal Confidentiality of Alcohol and Drug Abuse Patient Records regulations: The Federal rules restrict any use of the information to criminally investigate or prosecute any alcohol or drug abuse patient.[facility]In the event this information is protected by the Federal Confidentiality of Alcohol and Drug Abuse Patient Records regulations: The Federal rules restrict any use of the information to criminally investigate or prosecute any alcohol or drug abuse patient.[facility]In the event this information is protected by the Federal Confidentiality of Alcohol and Drug Abuse Patient Records regulations: The Federal rules restrict any use of the information to criminally investigate or prosecute any alcohol or drug abuse patient.[facility]In the event this information is protected by the Federal Confidentiality of Alcohol and Drug Abuse Patient Records regulations: The Federal rules restrict any use of the information to criminally investigate or prosecute any alcohol or drug abuse patient.[facility]In the event this information is protected by the Federal Confidentiality of Alcohol and Drug Abuse Patient Records regulations: The Federal rules restrict any use of the information to criminally investigate or prosecute any alcohol or drug abuse patient.[facility]In the event this information is protected by the Federal Confidentiality of Alcohol and Drug Abuse Patient Records regulations: The Federal rules restrict any use of the information to criminally investigate or prosecute any alcohol or drug abuse patient.[facility]In the event this information is protected by the Federal Confidentiality of Alcohol and Drug Abuse Patient Records regulations: The Federal rules restrict any use of the information to criminally investigate or prosecute any alcohol or drug abuse patient.[facility]In the event this information is protected by the Federal Confidentiality of Alcohol and Drug Abuse Patient Records regulations: The Federal rules restrict any use of the information to criminally investigate or prosecute any alcohol or drug abuse patient.[facility]In the event this information is protected by the Federal Confidentiality of Alcohol and Drug Abuse Patient Records regulations: The Federal rules restrict any use of the information to criminally investigate or prosecute any alcohol or drug abuse patient.[facility]In the event this information is protected by the Federal Confidentiality of Alcohol and Drug Abuse Patient Records regulations: The Federal rules restrict any use of the information to criminally investigate or prosecute any alcohol or drug abuse patient.[facility]In the event this information is protected by the Federal Confidentiality of Alcohol and Drug Abuse Patient Records regulations: The Federal rules restrict any use of the information to criminally investigate or prosecute any alcohol or drug abuse patient.[facility]In the event this information is protected by the Federal Confidentiality of Alcohol and Drug Abuse Patient Records regulations: The Federal rules restrict any use of the information to criminally investigate or prosecute any alcohol or drug abuse patient.[facility]In the event this information is protected by the Federal Confidentiality of Alcohol and Drug Abuse Patient Records regulations: The Federal rules restrict any use of the information to criminally investigate or prosecute any alcohol or drug abuse patient.[facility]In the event this information is protected by the Federal Confidentiality of Alcohol and Drug Abuse Patient Records regulations: The Federal rules restrict any use of the information to criminally investigate or prosecute any alcohol or drug abuse patient.[facility]In the event this information is protected by the Federal Confidentiality of Alcohol and Drug Abuse Patient Records regulations: The Federal rules restrict any use of the information to criminally investigate or prosecute any alcohol or drug abuse patient.[facility]In the event this information is protected by the Federal Confidentiality of Alcohol and Drug Abuse Patient Records regulations: The Federal rules restrict any use of the information to criminally investigate or prosecute any alcohol or drug abuse patient.[facility]In the event this information is protected by the Federal Confidentiality of Alcohol and Drug Abuse Patient Records regulations: The Federal rules restrict any use of the information to criminally investigate or prosecute any alcohol or drug abuse patient.[facility]In the event this information is protected by the Federal Confidentiality of Alcohol and Drug Abuse Patient Records regulations: The Federal rules restrict any use of the information to criminally investigate or prosecute any alcohol or drug abuse patient.[facility]In the event this information is protected by the Federal Confidentiality of Alcohol and Drug Abuse Patient Records regulations: The Federal rules restrict any use of the information to criminally investigate or prosecute any alcohol or drug abuse patient.[facility]In the event this information is protected by the Federal Confidentiality of Alcohol and Drug Abuse Patient Records regulations: The Federal rules restrict any use of the information to criminally investigate or prosecute any alcohol or drug abuse patient.[facility]In the event this information is protected by the Federal Confidentiality of Alcohol and Drug Abuse Patient Records regulations: The Federal rules restrict any use of the information to criminally investigate or prosecute any alcohol or drug abuse patient.[facility]In the event this information is protected by the Federal Confidentiality of Alcohol and Drug Abuse Patient Records regulations: The Federal rules restrict any use of the information to criminally investigate or prosecute any alcohol or drug abuse patient.[facility]In the event this information is protected by the Federal Confidentiality of Alcohol and Drug Abuse Patient Records regulations: The Federal rules restrict any use of the information to criminally investigate or prosecute any alcohol or drug abuse patient.[facility]In the event this information is protected by the Federal Confidentiality of Alcohol and Drug Abuse Patient Records regulations: The Federal rules restrict any use of the information to criminally investigate or prosecute any alcohol or drug abuse patient.[facility]In the event this information is protected by the Federal Confidentiality of Alcohol and Drug Abuse Patient Records regulations: The Federal rules restrict any use of the information to criminally investigate or prosecute any alcohol or drug abuse patient.[facility]In the event this information is protected by the Federal Confidentiality of Alcohol and Drug Abuse Patient Records regulations: The Federal rules restrict any use of the information to criminally investigate or prosecute any alcohol or drug abuse patient.[facility]In the event this information is protected by the Federal Confidentiality of Alcohol and Drug Abuse Patient Records regulations: The Federal rules restrict any use of the information to criminally investigate or prosecute any alcohol or drug abuse patient.[facility]In the event this information is protected by the Federal Confidentiality of Alcohol and Drug Abuse Patient Records regulations: The Federal rules restrict any use of the information to criminally investigate or prosecute any alcohol or drug abuse patient.[facility]In the event this information is protected by the Federal Confidentiality of Alcohol and Drug Abuse Patient Records regulations: The Federal rules restrict any use of the information to criminally investigate or prosecute any alcohol or drug abuse patient.[facility]In the event this information is protected by the Federal Confidentiality of Alcohol and Drug Abuse Patient Records regulations: The Federal rules restrict any use of the information to criminally investigate or prosecute any alcohol or drug abuse patient.[facility]In the event this information is protected by the Federal Confidentiality of Alcohol and Drug Abuse Patient Records regulations: The Federal rules restrict any use of the information to criminally investigate or prosecute any alcohol or drug abuse patient.[facility]In the event this information is protected by the Federal Confidentiality of Alcohol and Drug Abuse Patient Records regulations: The Federal rules restrict any use of the information to criminally investigate or prosecute any alcohol or drug abuse patient.[facility]In the event this information is protected by the Federal Confidentiality of Alcohol and Drug Abuse Patient Records regulations: The Federal rules restrict any use of the information to criminally investigate or prosecute any alcohol or drug abuse patient.[facility]In the event this information is protected by the Federal Confidentiality of Alcohol and Drug Abuse Patient Records regulations: The Federal rules restrict any use of the information to criminally investigate or prosecute any alcohol or drug abuse patient.[facility]In the event this information is protected by the Federal Confidentiality of Alcohol and Drug Abuse Patient Records regulations: The Federal rules restrict any use of the information to criminally investigate or prosecute any alcohol or drug abuse patient.[facility]In the event this information is protected by the Federal Confidentiality of Alcohol and Drug Abuse Patient Records regulations: The Federal rules restrict any use of the information to criminally investigate or prosecute any alcohol or drug abuse patient.[facility]In the event this information is protected by the Federal Confidentiality of Alcohol and Drug Abuse Patient Records regulations: The Federal rules restrict any use of the information to criminally investigate or prosecute any alcohol or drug abuse patient.[facility]In the event this information is protected by the Federal Confidentiality of Alcohol and Drug Abuse Patient Records regulations: The Federal rules restrict any use of the information to criminally investigate or prosecute any alcohol or drug abuse patient.[facility]In the event this information is protected by the Federal Confidentiality of Alcohol and Drug Abuse Patient Records regulations: The Federal rules restrict any use of the information to criminally investigate or prosecute any alcohol or drug abuse patient.[facility]In the event this information is protected by the Federal Confidentiality of Alcohol and Drug Abuse Patient Records regulations: The Federal rules restrict any use of the information to criminally investigate or prosecute any alcohol or drug abuse patient.[facility]In the event this information is protected by the Federal Confidentiality of Alcohol and Drug Abuse Patient Records regulations: The Federal rules restrict any use of the information to criminally investigate or prosecute any alcohol or drug abuse patient.[facility]In the event this information is protected by the Federal Confidentiality of Alcohol and Drug Abuse Patient Records regulations: The Federal rules restrict any use of the information to criminally investigate or prosecute any alcohol or drug abuse patient.[facility]In the event this information is protected by the Federal Confidentiality of Alcohol and Drug Abuse Patient Records regulations: The Federal rules restrict any use of the information to criminally investigate or prosecute any alcohol or drug abuse patient.[facility]In the event this information is protected by the Federal Confidentiality of Alcohol and Drug Abuse Patient Records regulations: The Federal rules restrict any use of the information to criminally investigate or prosecute any alcohol or drug abuse patient.[facility]In the event this information is protected by the Federal Confidentiality of Alcohol and Drug Abuse Patient Records regulations: The Federal rules restrict any use of the information to criminally investigate or prosecute any alcohol or drug abuse patient.[facility]In the event this information is protected by the Federal Confidentiality of Alcohol and Drug Abuse Patient Records regulations: The Federal rules restrict any use of the information to criminally investigate or prosecute any alcohol or drug abuse patient.[facility] the event this information is protected by the Federal Confidentiality of Alcohol and Drug Abuse Patient Records regulations: The Federal rules restrict any use of the information to criminally investigate or prosecute any alcohol or drug abuse patient.[facility]In the event this information is protected by the Federal Confidentiality of Alcohol and Drug Abuse Patient Records regulations: The Federal rules restrict any use of the information to criminally investigate or prosecute any alcohol or drug abuse patient.[facility]In the event this information is protected by the Federal Confidentiality of Alcohol and Drug Abuse Patient Records regulations: The Federal rules restrict any use of the information to criminally investigate or prosecute any alcohol or drug abuse patient.[facility]In the event this information is protected by the Federal Confidentiality of Alcohol and Drug Abuse Patient Records regulations: The Federal rules restrict any use of the information to criminally investigate or prosecute any alcohol or drug abuse patient.[facility] CenterIn the event this information is protected by the Federal Confidentiality of Alcohol and Drug Abuse Patient Records regulations: The Federal rules restrict any use of the information to criminally investigate or prosecute any alcohol or drug abuse patient.[facility] CenterIn the event this information is protected by the Federal Confidentiality of Alcohol and Drug Abuse Patient Records regulations: The Federal rules restrict any use of the information to criminally investigate or prosecute any alcohol or drug abuse patient.[facility] CenterIn the event this information is protected by the Federal Confidentiality of Alcohol and Drug Abuse Patient Records regulations: The Federal rules restrict any use of the information to criminally investigate or prosecute any alcohol or drug abuse patient.[facility] CenterIn the event this information is protected by the Federal Confidentiality of Alcohol and Drug Abuse Patient Records regulations: The Federal rules restrict any use of the information to criminally investigate or prosecute any alcohol or drug abuse patient.[facility] CenterIn the event this information is protected by the Federal Confidentiality of Alcohol and Drug Abuse Patient Records regulations: The Federal rules restrict any use of the information to criminally investigate or prosecute any alcohol or drug abuse patient.[facility] CenterIn the event this information is protected by the Federal Confidentiality of Alcohol and Drug Abuse Patient Records regulations: The Federal rules restrict any use of the information to criminally investigate or prosecute any alcohol or drug abuse patient.[facility] CenterIn the event this information is protected by the Federal Confidentiality of Alcohol and Drug Abuse Patient Records regulations: The Federal rules restrict any use of the information to criminally investigate or prosecute any alcohol or drug abuse patient.[facility] CenterIn the event this information is protected by the Federal Confidentiality of Alcohol and Drug Abuse Patient Records regulations: The Federal rules restrict any use of the information to criminally investigate or prosecute any alcohol or drug abuse patient.[facility] CenterIn the event this information is protected by the Federal Confidentiality of Alcohol and Drug Abuse Patient Records regulations: The Federal rules restrict any use of the information to criminally investigate or prosecute any alcohol or drug abuse patient.[facility] CenterIn the event this information is protected by the Federal Confidentiality of Alcohol and Drug Abuse Patient Records regulations: The Federal rules restrict any use of the information to criminally investigate or prosecute any alcohol or drug abuse patient.[facility] CenterIn the event this information is protected by the Federal Confidentiality of Alcohol and Drug Abuse Patient Records regulations: The Federal rules restrict any use of the information to criminally investigate or prosecute any alcohol or drug abuse patient.[facility] CenterIn the event this information is protected by the Federal Confidentiality of Alcohol and Drug Abuse Patient Records regulations: The Federal rules restrict any use of the information to criminally investigate or prosecute any alcohol or drug abuse patient.[facility] CenterIn the event this information is protected by the Federal Confidentiality of Alcohol and Drug Abuse Patient Records regulations: The Federal rules restrict any use of the information to criminally investigate or prosecute any alcohol or drug abuse patient.[facility] CenterIn the event this information is protected by the Federal Confidentiality of Alcohol and Drug Abuse Patient Records regulations: The Federal rules restrict any use of the information to criminally investigate or prosecute any alcohol or drug abuse patient.[facility] CenterIn the event this information is protected by the Federal Confidentiality of Alcohol and Drug Abuse Patient Records regulations: The Federal rules restrict any use of the information to criminally investigate or prosecute any alcohol or drug abuse patient.[facility] CenterIn the event this information is protected by the Federal Confidentiality of Alcohol and Drug Abuse Patient Records regulations: The Federal rules restrict any use of the information to criminally investigate or prosecute any alcohol or drug abuse patient.[facility] CenterIn the event this information is protected by the Federal Confidentiality of Alcohol and Drug Abuse Patient Records regulations: The Federal rules restrict any use of the information to criminally investigate or prosecute any alcohol or drug abuse patient.[facility] CenterIn the event this information is protected by the Federal Confidentiality of Alcohol and Drug Abuse Patient Records regulations: The Federal rules restrict any use of the information to criminally investigate or prosecute any alcohol or drug abuse patient.[facility] CenterIn the event this information is protected by the Federal Confidentiality of Alcohol and Drug Abuse Patient Records regulations: The Federal rules restrict any use of the information to criminally investigate or prosecute any alcohol or drug abuse patient.[facility] CenterIn the event this information is protected by the Federal Confidentiality of Alcohol and Drug Abuse Patient Records regulations: The Federal rules restrict any use of the information to criminally investigate or prosecute any alcohol or drug abuse patient.[facility] CenterIn the event this information is protected by the Federal Confidentiality of Alcohol and Drug Abuse Patient Records regulations: The Federal rules restrict any use of the information to criminally investigate or prosecute any alcohol or drug abuse patient.[facility] CenterIn the event this information is protected by the Federal Confidentiality of Alcohol and Drug Abuse Patient Records regulations: The Federal rules restrict any use of the information to criminally investigate or prosecute any alcohol or drug abuse patient.[facility] CenterIn the event this information is protected by the Federal Confidentiality of Alcohol and Drug Abuse Patient Records regulations: The Federal rules restrict any use of the information to criminally investigate or prosecute any alcohol or drug abuse patient.[facility] CenterIn the event this information is protected by the Federal Confidentiality of Alcohol and Drug Abuse Patient Records regulations: The Federal rules restrict any use of the information to criminally investigate or prosecute any alcohol or drug abuse patient.[facility] CenterIn the event this information is protected by the Federal Confidentiality of Alcohol and Drug Abuse Patient Records regulations: The Federal rules restrict any use of the information to criminally investigate or prosecute any alcohol or drug abuse patient.[facility] CenterIn the event this information is protected by the Federal Confidentiality of Alcohol and Drug Abuse Patient Records regulations: The Federal rules restrict any use of the information to criminally investigate or prosecute any alcohol or drug abuse patient.[facility] CenterIn the event this information is protected by the Federal Confidentiality of Alcohol and Drug Abuse Patient Records regulations: The Federal rules restrict any use of the information to criminally investigate or prosecute any alcohol or drug abuse patient.[facility] CenterIn the event this information is protected by the Federal Confidentiality of Alcohol and Drug Abuse Patient Records regulations: The Federal rules restrict any use of the information to criminally investigate or prosecute any alcohol or drug abuse patient.[facility] CenterIn the event this information is protected by the Federal Confidentiality of Alcohol and Drug Abuse Patient Records regulations: The Federal rules restrict any use of the information to criminally investigate or prosecute any alcohol or drug abuse patient.[facility] CenterIn the event this information is protected by the Federal Confidentiality of Alcohol and Drug Abuse Patient Records regulations: The Federal rules restrict any use of the information to criminally investigate or prosecute any alcohol or drug abuse patient.[facility] CenterIn the event this information is protected by the Federal Confidentiality of Alcohol and Drug Abuse Patient Records regulations: The Federal rules restrict any use of the information to criminally investigate or prosecute any alcohol or drug abuse patient.[facility] CenterIn the event this information is protected by the Federal Confidentiality of Alcohol and Drug Abuse Patient Records regulations: The Federal rules restrict any use of the information to criminally investigate or prosecute any alcohol or drug abuse patient.[facility] CenterIn the event this information is protected by the Federal Confidentiality of Alcohol and Drug Abuse Patient Records regulations: The Federal rules restrict any use of the information to criminally investigate or prosecute any alcohol or drug abuse patient.[facility] CenterIn the event this information is protected by the Federal Confidentiality of Alcohol and Drug Abuse Patient Records regulations: The Federal rules restrict any use of the information to criminally investigate or prosecute any alcohol or drug abuse patient.[facility] CenterIn the event this information is protected by the Federal Confidentiality of Alcohol and Drug Abuse Patient Records regulations: The Federal rules restrict any use of the information to criminally investigate or prosecute any alcohol or drug abuse patient.[facility] CenterIn the event this information is protected by the Federal Confidentiality of Alcohol and Drug Abuse Patient Records regulations: The Federal rules restrict any use of the information to criminally investigate or prosecute any alcohol or drug abuse patient.[facility] CenterIn the event this information is protected by the Federal Confidentiality of Alcohol and Drug Abuse Patient Records regulations: The Federal rules restrict any use of the information to criminally investigate or prosecute any alcohol or drug abuse patient.[facility] CenterIn the event this information is protected by the Federal Confidentiality of Alcohol and Drug Abuse Patient Records regulations: The Federal rules restrict any use of the information to criminally investigate or prosecute any alcohol or drug abuse patient.[facility] CenterIn the event this information is protected by the Federal Confidentiality of Alcohol and Drug Abuse Patient Records regulations: The Federal rules restrict any use of the information to criminally investigate or prosecute any alcohol or drug abuse patient.[facility] CenterIn the event this information is protected by the Federal Confidentiality of Alcohol and Drug Abuse Patient Records regulations: The Federal rules restrict any use of the information to criminally investigate or prosecute any alcohol or drug abuse patient.[facility] CenterIn the event this information is protected by the Federal Confidentiality of Alcohol and Drug Abuse Patient Records regulations: The Federal rules restrict any use of the information to criminally investigate or prosecute any alcohol or drug abuse patient.[facility] CenterIn the event this information is protected by the Federal Confidentiality of Alcohol and Drug Abuse Patient Records regulations: The Federal rules restrict any use of the information to criminally investigate or prosecute any alcohol or drug abuse patient.[facility] CenterIn the event this information is protected by the Federal Confidentiality of Alcohol and Drug Abuse Patient Records regulations: The Federal rules restrict any use of the information to criminally investigate or prosecute any alcohol or drug abuse patient.[facility] CenterIn the event this information is protected by the Federal Confidentiality of Alcohol and Drug Abuse Patient Records regulations: The Federal rules restrict any use of the information to criminally investigate or prosecute any alcohol or drug abuse patient.[facility] CenterIn the event this information is protected by the Federal Confidentiality of Alcohol and Drug Abuse Patient Records regulations: The Federal rules restrict any use of the information to criminally investigate or prosecute any alcohol or drug abuse patient.[facility] CenterIn the event this information is protected by the Federal Confidentiality of Alcohol and Drug Abuse Patient Records regulations: The Federal rules restrict any use of the information to criminally investigate or prosecute any alcohol or drug abuse patient.[facility] the event this information is protected by the Federal Confidentiality of Alcohol and Drug Abuse Patient Records regulations: The Federal rules restrict any use of the information to criminally investigate or prosecute any alcohol or drug abuse patient.[facility] CenterIn the event this information is protected by the Federal Confidentiality of Alcohol and Drug Abuse Patient Records regulations: The Federal rules restrict any use of the information to criminally investigate or prosecute any alcohol or drug abuse patient.[facility] CenterIn the event this information is protected by the Federal Confidentiality of Alcohol and Drug Abuse Patient Records regulations: The Federal rules restrict any use of the information to criminally investigate or prosecute any alcohol or drug abuse patient.[facility]In the event this information is protected by the Federal Confidentiality of Alcohol and Drug Abuse Patient Records regulations: The Federal rules restrict any use of the information to criminally investigate or prosecute any alcohol or drug abuse patient.[facility] CenterIn the event this information is protected by the Federal Confidentiality of Alcohol and Drug Abuse Patient Records regulations: The Federal rules restrict any use of the information to criminally investigate or prosecute any alcohol or drug abuse patient.[facility] CenterIn the event this information is protected by the Federal Confidentiality of Alcohol and Drug Abuse Patient Records regulations: The Federal rules restrict any use of the information to criminally investigate or prosecute any alcohol or drug abuse patient.[facility] CenterIn the event this information is protected by the Federal Confidentiality of Alcohol and Drug Abuse Patient Records regulations: The Federal rules restrict any use of the information to criminally investigate or prosecute any alcohol or drug abuse patient.[facility] CenterIn the event this information is protected by the Federal Confidentiality of Alcohol and Drug Abuse Patient Records regulations: The Federal rules restrict any use of the information to criminally investigate or prosecute any alcohol or drug abuse patient.[facility] Reason for Visit (unrecogniz ed section and content) Reason Comments Radiology US Specialty Diagnoses / Procedures Referred By Ml t Referred To Contact US IMAGING Diagnoses RUQ abdominal pain Nausea Procedures US ABD RIGHT UPPER QUADRANT US ABDOMINAL REAL TIME W/IMAGE LIMITED Laura Hernandez APRN.DUMPER [address] [place] [address] [facility] [place] [address] Referral ID Status Reason Start Date Expiration Date V isits Requested Visits Authorized [id number] Closed Auto-Generate d Referral 06/08/2023 07/07/2024 1 1 Reason Comments Acid reflux Abdominal pain. XR 1 08/26/20 H pylori 06/28/21 Reason Comments Patient Question Reason Comments Results Reason Comments Results Reason Comments Recheck Follow up Reason Comments Recheck COPD follow up Reason Comments Medication Question Reason Comments Recheck COPD follow up Reason Comments Yearly Exam Reason Comments Orders Reason Comments Recheck Follow up COPD Reason Comments Pain Pain throughout arms , legs, shoulders x 5 days Reason Onset Date Comments Refill Request 03/01/2022 Reason Comments Recheck 2 week shingles foll ow up Reason Comments Recheck Rash follow up, new rash on leg and arm x 1 week, sharp shooting pain Reason Comments Recheck Shingles follow up Reason Comments Head Congestion Chest congestion, wh eezing x 3 days Reason Comments Recheck 1 week follow up. pn eumonia Reason Comments Recheck Follow up, pain, hea daches daily Reason Comments Cough Cough, vomitting whe n awaking x 1 week Reason Comments Appointment Reason Comments Heartburn Vomiting, Dysphagia Reason Comments Recheck Reason Onset Date Comments Refill Request 08/31/2022 Reason Comments Procedure Follow Up EGD 09/12/22. Waking u p vomiting in the night tastes like battery acid. Stomach feels on fire Reason Comments Insurance Authorization Reason Comments Recheck 3 month follow up Reason Comments Peter PA report Reason Onset Date Comments Refill Request 02/01/2023 Reason Onset Date Comments Refill Request 02/19/2023 Reason Comments Refill Request Reason Comments Orders Reason Comments New Patient Reason Comments Difficulty Urinating Pain with urination x 2 weeks Chest Pain Right side down the right arm off and on x 1 week Reason Onset Date Comments Refill Request 03/26/2023 Reason Comments Lump R side of breast tow ards axilla. Very painful Specialty Diagnoses / Procedures [facility] Diagnoses Irritable bowel syndrome with constipation Procedures COLONOSCOPY FLX W/REMOVAL OF FOREIGN BODY(S) [facility] [address] [place] [address] Referral ID Status Reason Start Date Expiration Date Visits Re quested Visits Authorized [id number] 1 1 Reason Comments Radiology US Specialty Diagnoses / Procedures [facility] To [facility] Diagnoses Axillary tenderness, right Breast pain Procedures US BREAST LTD RIGHT US BREAST UNI REAL TIME WITH IMAGE LIMITED Laura Hernandez, HOUSESMITH.DUMPER [address] [place] [address] [facility] [address] [place] [address] Referral ID Status Reason Start Date Expiration Date V isits Requested Visits Authorized [id number] Closed Auto-Generate d Referral 02/08/2023 03/09/2024 [address] Specialty Diagnoses / Procedures Referred By [facility] Referred To Contact CT IMAGING Diagnoses Vomiting without nausea, unspecified vomiting type Constipation, unspecified constipation type Acute LUQ pain Nausea Procedures CT ABD/PEL W IVCON CT ABD & PELVIS W/CONTRAST Laura Hernandez APRN.DUMPER [address] [place] [address] [place] [address] Referral ID Status Reason Start Date Expiration Date V isits Requested Visits Authorized [id number] Closed Auto-Generat ed Referral Patient Cleared - Admin/Chairm an/Director advise to proceed or did not respond 11/23/2022 01/22/2023 2 2 Specialty Diagnoses / Procedures Referred By Contac t Referred To Contact [facility] Diagnoses Right axillary swelling Pain in right axilla Procedures US BREAST LTD RIGHT US BREAST UNI REAL TIME WITH IMAGE LIMITED Renetta Kline, HOUSESMITH.ANDROID DEVELOPER [address] [place] [address] [facility] [address] [place] [address] Referral ID Status Reason Start Date Expiration Date V isits Requested Visits Authorized [id number] Closed Auto-Generate d Referral 05/10/2023 06/08/2024 1 1 Reason Comments Sleep Problem Pain Right side chest Abdominal Pain Reason Comments Recheck 3 month follow up Reason Comments Follow Up Lap jairo with chola ngiogram Reason Comments Wheezing X 2 DAYS , SPOTS ON EYELIDS Reason Comments Derm Problem under bilateral armp it areas x few days Reason Comments Refill Request Specialty Diagnoses / Procedures Referred By Contac t Referred To Contact [facility] Diagnoses Axillary tenderness, right Axillary mass, right Procedures US BREAST LTD RIGHT US BREAST UNI REAL TIME WITH IMAGE LIMITED Laura Hernandez, HOUSESMITH.DUMPER [address] [place] [address] [facility] [address] [place] [id number] Referral ID Status Reason Start Date Expiration Date V isits Requested Visits Authorized [id number] Closed Auto-Generate d Referral 09/18/2023 10/17/2024 1 1 Reason Comments Recheck 3 month follow up Reason Comments Patient Update Reason Comments Numbness Couple weeks elbow s into hands Reason Onset Date Comments EMG 12/11/2023 Specialty Diagnoses / Procedures Referred By Contac t Referred To Contact [facility] Diagnoses Numbness and tingling of both upper extremities Pain in both upper extremities Procedures EMG(NEURO/NI) NERVE CONDUCTION STUDIES 9-10 STUDIES María Elena Duarte, HOUSESMITH.DUMPER [address] [place] [address] [facility] [place] [address] [place] [address] Referral ID Status Reason Start Date Expiration Date V isits Requested Visits Authorized [id number] Closed Auto-Generate d Referral 11/01/2023 07/08/2024 1 1 Reason Comments Recheck Follow up, lump unde r arm. R foot pain Reason Comments Recheck Follow up Reason Comments Opened In Error Reason Comments Recheck Zio monitor results Reason Comments Recheck 1 week follow up Reason Comments [employer] - Other Reason Comments Results Specialty Diagnoses / Procedures Referred By Contac t Referred To Contact CT IMAGING Diagnoses Syncope and collapse Procedures CT BRAIN WO IVCON CT HEAD/BRAIN W/O CONTRAST MATERIAL Belen, Laura, EVELYN.DUMPER [address] [place] [address] [place] [address] Referral ID Status Reason Start Date Expiration Date V isits Requested Visits Authorized [id number] Closed Auto-Generate d Referral 03/14/2024 04/13/2025 1 1 Reason Comments Recheck 1 month follow up Specialty Diagnoses / Procedures Referred By Contac t Referred To Contact Cardiology Diagnoses Syncope, unspecified syncope type Procedures CONSULT TO CARDIOLOGY OFFICE/OUTPATIENT [facility] 60 MINUTES Older, Laura, HOUSESMITH.DUMPER [address] [place] [phone] Referral ID Status Reason Start Date Expiration Date V isits Requested Visits Authorized [id number] Closed PCP Requested Referral 01/16/2024 01/15/2025 1 1 Reason Comments Patient Update Patient Question Reason Comments 07/24/2023 LAP JAIRO [place] Reason Onset Date Comments Refill Request 06/06/2024 Reason Onset Date Comments Refill Request 07/31/2024 Reason Comments Nasal Congestion bodyaches, vomiting, wheezing, sob, fatigue x 10 days Reason Comments Headaches Reason Comments Headache Headache x 1 week Reason Comments Recheck Headache follow up Reason Onset Date Comments Allied Health Visit 10/01/2024 Medication A dherence Outreach Reason Comments New Pain Specialty Diagnoses / Procedures Referred By Contac t Referred To Contact Orthopedics Diagnoses RUE weakness Axillary pain, right Chronic right shoulder pain Procedures CONSULT TO ORTHOPAEDICS OFFICE/OUTPATIENT [facility] 60 MINUTES Older, Laura, HOUSESMITH.DUMPER [address] [place] [address] Phone: tel: fax: Referral ID Status Reason Start Date Expiration Date V isits Requested Visits Authorized [id number] Closed PCP Requested Referral 09/08/2024 09/08/2025 1 1 Reason Comments Recheck 1 week follow up Reason Comments Consult Bilat axillary swell ing. R>L has gotten worse and more painful over the past few months Specialty Diagnoses / Procedures Referred By Ml t Referred To Contact General Surgery Diagnoses Right axillary swelling Procedures CONSULT TO GENERAL SURGERY OFFICE/OUTPATIENT [facility] 60 MINUTES Deep Ramires APRN.DUMPER [address] [place] [address] Phone: tel: fax: Referral ID Status Reason Start Date Expiration Date V isits Requested Visits Authorized [id number] Closed PCP Requested Referral 10/31/2024 10/31/2025 1 1 Specialty Diagnoses / Procedures Referred By Ml t Referred To Contact CT IMAGING Diagnoses Right axillary swelling Procedures CT CHEST WO IVCON DIAGNOSTIC COMPUTED TOMOGRAPHY THORAX W/O Melanie López, [address] [address] Phone: tel: fax: [place] [phone] Referral ID Status Reason Start Date Expiration Date V isits Requested Visits Authorized [id number] Closed Auto-Generate d Referral 11/06/2024 12/06/2025 1 1 Reason Comments Follow Up US & CT scan Reason Comments Family History Of Cancer Specialty Diagnoses / Procedures Referred By Ml t Referred To Contact Diagnoses Family history of ovarian cancer Family history of breast cancer Procedures CONSULT TO MEDICAL GENETICS - GENERAL OFFICE/OUTPATIENT [facility] 60 MINUTES MEDICAL GENETICS COUNSELING EACH 30 MINUTES Deep Ramires APRN.KACY [address] [place] [address] Phone: tel: fax: Genetic [address] [address] Referral ID Status Reason Start Date Expiration Date V isits Requested Visits Authorized [id number] Closed PCP Requested Referral Auto-Generated Referral 10/31/2024 10/31/2025 1 1 Reason Comments F/U 6 Month Reason Comments PT Eval Physical Therapy Specialty Diagnoses / Procedures Referred By Contac t Referred To Contact [facility] Diagnoses RUE weakness Axillary pain, right Chronic right shoulder pain Cervical radiculopathy Procedures CONSULT TO PHYSICAL THERAPY PHYSICAL THERAPY EVALUATION HIGH COMPLEX 45 MINS Heath Mar MD [address] [place] [address] Phone: tel: fax: [facility] [address] [place] [address] Referral ID Status Reason Start Date Expiration Date Visits Requested Visits Authorized [id number] Authorized Auto-Generat ed Referral 07/09/2024 07/08/2025 99 99 Reason Comments Headache Reason Onset Date Comments Refill Request 12/25/2024 Reason Comments Recheck Medication follow up Reason Onset Date Comments Allied Health Visit 02/17/2025 Medication A dherence Outreach Care Teams (unrecognized sec tion and content) Agency Trainer Relationship Specialty Start Date End Date Amanda Wallace MD [address] [place] [address] PCP - General Internal Medicine 01/24/18 Agency Trainer Relationship Specialty Start Date End Date Amanda Wallace MD [address] [place] [address] PCP - General Internal Medicine 01/24/18 Agency Trainer Relationship Specialty Start Date End Date Amanda Wallace MD [address] [place] [address] PCP - General Internal Medicine 01/24/18 Agency Trainer Relationship Specialty Start Date End Date Amanda Wallace MD [address] [place] [address] PCP - General Internal Medicine 01/24/18 Agency Trainer Relationship Specialty Start Date End Date Amanda Wallace MD [address] [place] [address] PCP - General Internal Medicine 01/24/18 Agency Trainer Relationship Specialty Start Date End Date Amanda Wallace MD [address] [place] [address] PCP - General Internal Medicine 01/24/18 Agency Trainer Relationship Specialty Start Date End Date Amanda Wallace MD [address] [place] [address] PCP - General Internal Medicine 01/24/18 Agency Trainer Relationship Specialty Start Date End Date Amanda Wallace MD [address] [place] [address] PCP - General Internal Medicine 01/24/18 Agency Trainer Relationship Specialty Start Date End Date Amanda Wallace MD [address] [place] [address] PCP - General Internal Medicine 01/24/18 Agency Trainer Relationship Specialty Start Date End Date Amanda Wallace MD [address] [place] [address] PCP - General Internal Medicine 01/24/18 Agency Trainer Relationship Specialty Start Date End Date Amanda Wallace MD [address] [place] [address] PCP - General Internal Medicine 01/24/18 Agency Trainer Relationship Specialty Start Date End Date Amanda Wallace MD [address] [place] [address] PCP - General Internal Medicine 01/24/18 Agency Trainer Relationship Specialty Start Date End Date Amanda Wallace MD [address] [place] [address] PCP - General Internal Medicine 01/24/18 Agency Trainer Relationship Specialty Start Date End Date Amanda Wallace MD [address] [place] [address] PCP - General Internal Medicine 01/24/18 Agency Trainer Relationship Specialty Start Date End Date Amanda Wallace MD [address] [place] [address] PCP - General Internal Medicine 01/24/18 Agency Trainer Relationship Specialty Start Date End Date Amanda Wallace MD [address] [place] [address] PCP - General Internal Medicine 01/24/18 Agency Trainer Relationship Specialty Start Date End Date Amanda Wallace MD [address] [place] [address] PCP - General Internal Medicine 01/24/18 Agency Trainer Relationship Specialty Start Date End Date Amanda Wallace MD [address] [place] [address] PCP - General Internal Medicine 01/24/18 Agency Trainer Relationship Specialty Start Date End Date Amanda Wallace MD [address] [place] [address] PCP - General Internal Medicine 01/24/18 Agency Trainer Relationship Specialty Start Date End Date Amanda Wallace MD [address] [place] [address] PCP - General Internal Medicine 01/24/18 Agency Trainer Relationship Specialty Start Date End Date Amanda Wallace MD [address] [place] [address] PCP - General Internal Medicine 01/24/18 Agency Trainer Relationship Specialty Start Date End Date Amanda Wallace MD [address] [place] [address] PCP - General Internal Medicine 01/24/18 Agency Trainer Relationship Specialty Start Date End Date Amanda Wallace MD [address] [place] [address] PCP - General Internal Medicine 01/24/18 Agency Trainer Relationship Specialty Start Date End Date Amanda Wallace MD [address] [facility] [place] [address] PCP - General Internal Medicine 01/24/18 Agency Trainer Relationship Specialty Start Date End Date Amanda Wallace MD [address] [facility] [place] [address] PCP - General Internal Medicine 01/24/18 Agency Trainer Relationship Specialty Start Date End Date Amanda Wallace MD [address] [facility] [place] [address] PCP - General Internal Medicine 01/24/18 Agency Trainer Relationship Specialty Start Date End Date Amanda Wallace MD [address] [place] [address] PCP - General Internal Medicine 01/24/18 Agency Trainer Relationship Specialty Start Date End Date Amanda Wallace MD [address] [facility] [place] [address] PCP - General Internal Medicine 01/24/18 Team Status: Active Member Role Status Dates Dr. Amanda Wallace MD Family Provider Active LAURA HERNANDEZ NP-C Primary Care Provider Active Team Status: Inactive Member Role Status Dates Dr. Amanda Wallace MD Primary Care Provider Active Mickey Valencia POT ANNEALER, POT ANNEALER-C Attending Provider, Referrin g Provider Active Team Status: Inactive Member Role Status Dates LAURA HERNANDEZ NP-C Primary Care Provider Active Dr. Sheryl Nguyen MD Emergency Provider Active Agency Trainer Relationship Specialty Start Date End Date Amanda Wallace MD [address] [facility] [place] [address] PCP - General Internal Medicine 01/24/18 Agency Trainer Relationship Specialty Start Date End Date Amanda Wallace MD [address] [facility] [place] [address] PCP - General Internal Medicine 01/24/18 Team Status: Active Member Role Status Dates Mickey Valencia POT ANNEALER, POT ANNEALER-C Referring Provider, Other Pr ovider Active LAURA OLDER , POT ANNEALER-C Primary Care Provider Active Dr. Efren Riuz , DO Attending Provider Active Team Status: Inactive Member Role Status Dates Mickey Valencia POT ANNEALER, POT ANNEALER-C Attending Provider, Referadithya g Provider Active LAURA HERNANDEZ POT ANNEALER-C Primary Care Provider Active Team Status: Inactive Member Role Status Dates LAURA HERNANDEZ POT ANNEALER-C Primary Care Provider Active Dr. Sheryl Nguyen MD Attending Provider, Emergency Provider Active Agency Trainer Relationship Specialty Start Date End Date Amanda Wallace MD [address] [place] [address] PCP - General Internal Medicine 01/24/18 Agency Trainer Relationship Specialty Start Date End Date Amanda Wallace MD [address] [place] [address] PCP - General Internal Medicine 01/24/18 Agency Trainer Relationship Specialty Start Date End Date Amanda Wallace MD [address] [place] [address] PCP - General Internal Medicine 01/24/18 Team Status: Inactive Member Role Status Dates Dr. Amanda Wallace MD Referring Provider Active Dr. Efren Ruiz , Attending Provider Active LAURA HERNANDEZ POT ANNEALER-C Primary Care Provider Active Team Status: Inactive Member Role Status Dates LAURA HERNANDEZ POT ANNEALER-C Primary Care Provider Active Dr. Efren Ruiz , Attending Provider, Referring Pro vider Active Agency Trainer Relationship Specialty Start Date End Date Amanda Wallace MD [address] [place] [address] PCP - General Internal Medicine 01/24/18 Agency Trainer Relationship Specialty Start Date End Date Amanda Wallace MD [address] [place] [address] PCP - General Internal Medicine 01/24/18 Agency Trainer Relationship Specialty Start Date End Date Amanda Wallace MD [address] [place] [address] PCP - General Internal Medicine 01/24/18 Agency Trainer Relationship Specialty Start Date End Date Amanda Wallace MD [address] [place] [address] PCP - General Internal Medicine 01/24/18 Agency Trainer Relationship Specialty Start Date End Date Amanda Wallace MD [address] [place] [address] PCP - General Internal Medicine 01/24/18 Agency Trainer Relationship Specialty Start Date End Date Amanda Wallace MD [address] [place] [address] PCP - General Internal Medicine 01/24/18 Agency Trainer Relationship Specialty Start Date End Date Amanda Wallace MD [address] [place] [address] PCP - General Internal Medicine 01/24/18 Agency Trainer Relationship Specialty Start Date End Date Laura Hernandez APRN.DUMPER [address] [place] [address] PCP - General Internal Medicine 03/05/23 Agency Trainer Relationship Specialty Start Date End Date Laura Hernandez APRN.DUMPER [address] [place] [address] PCP - General Internal Medicine 03/05/23 Agency Trainer Relationship Specialty Start Date End Date Amanda Wallace MD [address] [place] [address] PCP - General Internal Medicine 03/26/23 Agency Trainer Relationship Specialty Start Date End Date Fauzia Pendleton PCP - General 07/30/06 03/07/16 Amanda Wallace MD [address] [place] [address] PCP - General Internal Medicine 03/08/16 08/20/16 Oksana Cordero HOUSESMITH.DUMPER [address] [place] [address] PCP - General Family Medicine 08/21/16 01/15/17 Sonam Tobin HOUSESMITH PCP - General Family Medicine 01/16/17 03/05/17 Amanda Wallace MD [address] [place] [address] PCP - General Internal Medicine 03/06/17 12/02/17 Amanda Wallace MD [address] [place] [address] PCP - General Internal Medicine 01/24/18 03/04/23 Laura Hernandez HOUSESMITH.DUMPER [address] [place] [address] PCP - General Internal Medicine 03/05/23 03/25/23 Amanda Wallace MD [address] [place] [address] PCP - General Internal Medicine 03/26/23 Agency Trainer Relationship Specialty Start Date End Date Amanda Wallace MD [address] [place] [address] PCP - General Internal Medicine 03/26/23 Team Status: Inactive Member Role Status Dates LAURA HERNANDEZ , POT ANNEALER-C Primary Care Provider, Referring Prov ider Active Mickey Valencia POT ANNEALER, POT ANNEALER-C Attending Provider Active Team Status: Inactive Member Role Status Dates LAURA HERNANDEZ POT ANNEALER-C Primary Care Provider, Referring Prov ider Active Dr. Efren Ruiz , DO Attending Provider Active Team Status: Active Member Role Status Dates LAURA HERNANDEZ , POT ANNEALER-C Primary Care Provider Active Dr. Efren Ruiz , DO Referring Provider, Other Provide r Active Dr. Alex Graham MD Attending Provider Active Agency Trainer Relationship Specialty Start Date End Date Amanda Wallace MD [address] [facility] [place] [address] PCP - General Internal Medicine 01/24/18 03/04/23 Agency Trainer Relationship Specialty Start Date End Date Amanda Wallace MD [address] [facility] [place] [address] PCP - General Internal Medicine 01/24/18 03/04/23 Agency Trainer Relationship Specialty Start Date End Date Laura Hernandez APRN.DUMPER [address] [facility] [place] [address] PCP - General Internal Medicine 03/05/23 03/25/23 Agency Trainer Relationship Specialty Start Date End Date Amanda Wallace MD [address] [facility] [place] [address] PCP - General Internal Medicine 01/24/18 03/04/23 Agency Trainer Relationship Specialty Start Date End Date Amanda Wallace MD [address] [facility] [place] [address] PCP - General Internal Medicine 03/26/23 Team Status: Inactive Member Role Status Dates LAURA HERNANDEZ , POT ANNEALER-C Primary Care Provider Active Renetta Kline NP, POT ANNEALER-C Attending Provider, Referring Pr ovider Active Agency Trainer Relationship Specialty Start Date End Date Amanda Wallace MD [address] [facility] [place] [address] PCP - General Internal Medicine 03/26/23 Agency Trainer Relationship Specialty Start Date End Date Laura Hernandez APRN.DUMPER [address] [facility] [place] [address] PCP - General Internal Medicine 07/03/23 Agency Trainer Relationship Specialty Start Date End Date Older, Laura, HOUSESMITH.DUMPER [address] [facility], [place] [address] PCP - General Internal Medicine 07/03/23 Agency Trainer Relationship Specialty Start Date End Date Older, Laura, HOUSESMITH.DUMPER [address] [facility], [place] [address] PCP - General Internal Medicine 07/03/23 Team Status: Inactive Member Role Status Dates LAURA HERNANDEZ , POT ANNEALER-C Primary Care Provider Active Dr. Aydin Almodovar , DO Attending Provider, Emergency P emy Active Team Status: Inactive Member Role Status Dates LAURA HERNANDEZ , POT ANNEALER-C Primary Care Provider Active Dr. Compa Martin , DO Emergency Provider Active Agency Trainer Relationship Specialty Start Date End Date Amanda Wallace MD [address] [facility] [place] [address] PCP - General Internal Medicine 03/26/23 07/02/23 OlderLaura, HOUSESMITH.DUMPER [address] [facility] [place] [address] PCP - General Internal Medicine 07/03/23 Agency Trainer Relationship Specialty Start Date End Date Older, Laura, HOUSESMITH.DUMPER [address] [facility], [place] [address] PCP - General Internal Medicine 07/03/23 Agency Trainer Relationship Specialty Start Date End Date Older, Laura, HOUSESMITH.DUMPER [address] [facility], [place] [address] PCP - General Internal Medicine 07/03/23 Agency Trainer Relationship Specialty Start Date End Date Older, Laura, HOUSESMITH.DUMPER [address] [facility] [place] [address] PCP - General Internal Medicine 07/03/23 Agency Trainer Relationship Specialty Start Date End Date Older, Laura, HOUSESMITH.DUMPER [address] [place] [address] PCP - General Internal Medicine 07/03/23 Agency Trainer Relationship Specialty Start Date End Date Older, Laura, HOUSESMITH.DUMPER [address] [place] [address] PCP - General Internal Medicine 07/03/23 Agency Trainer Relationship Specialty Start Date End Date Older, Laura, HOUSESMITH.DUMPER [address] [place] [address] PCP - General Internal Medicine 07/03/23 Agency Trainer Relationship Specialty Start Date End Date Older, Laura, HOUSESMITH.DUMPER [address] [facility] [place] [address] PCP - General Internal Medicine 07/03/23 Agency Trainer Relationship Specialty Start Date End Date Older, Laura, HOUSESMITH.DUMPER [address] [facility] [place] [address] PCP - General Internal Medicine 07/03/23 Agency Trainer Relationship Specialty Start Date End Date Older, Laura, HOUSESMITH.DUMPER [address] [facility] [place] [address] PCP - General Internal Medicine 07/03/23 Agency Trainer Relationship Specialty Start Date End Date Amanda Wallace MD [address] [facility] [place] [address] PCP - General Internal Medicine 12/17/23 Agency Trainer Relationship Specialty Start Date End Date Amanda Wallace MD [address] [facility] [place] [address] PCP - General Internal Medicine 12/17/23 Agency Trainer Relationship Specialty Start Date End Date Amanda Wallace MD [address] [place] [address] PCP - General Internal Medicine 12/17/23 Agency Trainer Relationship Specialty Start Date End Date Amanda Wallace MD [address] [place] [address] PCP - General Internal Medicine 12/17/23 Agency Trainer Relationship Specialty Start Date End Date Amanda Wallace MD [address] [place] [address] PCP - General Internal Medicine 12/17/23 Agency Trainer Relationship Specialty Start Date End Date Amanda Wallace MD [address] [place] [address] PCP - General Internal Medicine 12/17/23 Agency Trainer Relationship Specialty Start Date End Date Amanda Wallace MD [address] [place] [address] PCP - General Internal Medicine 12/17/23 Agency Trainer Relationship Specialty Start Date End Date Amanda Wallace MD [address] [place] [address] PCP - General Internal Medicine 12/17/23 Agency Trainer Relationship Specialty Start Date End Date Amanda Wallace MD [address] [place] [address] PCP - General Internal Medicine 12/17/23 Agency Trainer Relationship Specialty Start Date End Date Amanda Wallace MD [address] [place] [address] PCP - General Internal Medicine 12/17/23 Agency Trainer Relationship Specialty Start Date End Date Amanda Wallace MD [address] [place] [address] PCP - General Internal Medicine 12/17/23 Agency Trainer Relationship Specialty Start Date End Date Amanda Wallace MD [address] [place] [address] PCP - General Internal Medicine 12/17/23 Agency Trainer Relationship Specialty Start Date End Date Laura Hernandez APRN.CNP [address] [facility] [place] [address] PCP - General Internal Medicine 07/03/23 12/16/23 Agency Trainer Relationship Specialty Start Date End Date Amanda Wallace MD [address] [place] [address] PCP - General Internal Medicine 12/17/23 Agency Trainer Relationship Specialty Start Date End Date Amanda Wallace MD [address] [place] [address] PCP - General Internal Medicine 12/17/23 Agency Trainer Relationship Specialty Start Date End Date Amanda Wallace MD [address] [place] [address] PCP - General Internal Medicine 01/24/18 03/04/23 Agency Trainer Relationship Specialty Start Date End Date Amanda Wallace MD [address] [facility] [place] [address] PCP - General Internal Medicine 01/24/18 03/04/23 Agency Trainer Relationship Specialty Start Date End Date Amanda Wallace MD [address] [facility] [place] [address] PCP - General Internal Medicine 01/24/18 03/04/23 Agency Trainer Relationship Specialty Start Date End Date Amanda Wallace MD [address] [facility] [place] [address] PCP - General Internal Medicine 01/24/18 03/04/23 Agency Trainer Relationship Specialty Start Date End Date Amanda Wallace MD [address] [facility] [place] [address] PCP - General Internal Medicine 01/24/18 03/04/23 Agency Trainer Relationship Specialty Start Date End Date Amanda Wallace MD [address] [facility] [place] [address] PCP - General Internal Medicine 01/24/18 03/04/23 Agency Trainer Relationship Specialty Start Date End Date Amanda Wallace MD [address] [facility] [place] [address] PCP - General Internal Medicine 12/17/23 Agency Trainer Relationship Specialty Start Date End Date Amanda Wallace MD [address] [facility] [place] [address] PCP - General Internal Medicine 01/24/18 03/04/23 Agency Trainer Relationship Specialty Start Date End Date Amanda Wallace MD [address] [place] [address] PCP - General Internal Medicine 01/24/18 03/04/23 Agency Trainer Relationship Specialty Start Date End Date Amanda Wallace MD [address] [place] [address] PCP - General Internal Medicine 01/24/18 03/04/23 Agency Trainer Relationship Specialty Start Date End Date Amanda Wallace MD [address] [place] [address] PCP - General Internal Medicine 12/17/23 Agency Trainer Relationship Specialty Start Date End Date Amanda Wallace MD [address] [place] [address] PCP - General Internal Medicine 03/26/23 07/02/23 Laura Hernandez APRN.DUMPER [address] [facility] [place] [place] [address] PCP - General Internal Medicine 07/03/23 12/16/23 Amanda Wallace MD [address] [place] [address] PCP - General Internal Medicine 12/17/23 Agency Trainer Relationship Specialty Start Date End Date Amanda Wallace MD [address] [place] [address] PCP - General Internal Medicine 12/17/23 Agency Trainer Relationship Specialty Start Date End Date Amanda Wallace MD [address] [place] [address] PCP - General Internal Medicine 12/17/23 Agency Trainer Relationship Specialty Start Date End Date Amanda Wallace MD [address] [place] [address] PCP - General Internal Medicine 12/17/23 Zaida Goodson PA-C [address] [place] [address] Registered Nurse Maternity Family Medicine 06/15/24 Laura Hernandez APRN.DUMPER [address] [facility] [place] [address] Registered Nurse Maternity Internal Medicine 06/15/24 Vilma Lin PA-C [address] [place] [address] Registered Nurse Maternity Family Medicine 06/15/24 Agency Trainer Relationship Specialty Start Date End Date Amanda Wallace MD [address] [facility] [place] [address] PCP - General Internal Medicine 12/17/23 Zaida Goodson PA-C [address] [place] [address] Registered Nurse Maternity Family Medicine 06/15/24 Laura Hernandez, HOUSESMITH.DUMPER [address] [facility] [place] [address] Registered Nurse Maternity Internal Medicine 06/15/24 Vilma Lin PA-C [address] [place] [address] Registered Nurse Maternity Family Medicine 06/15/24 Agency Trainer Relationship Specialty Start Date End Date Amanda Wallace MD [address] [place] [address] PCP - General Internal Medicine 12/17/23 Zaida Goodson PA-C [address] [place] [address] Registered Nurse Maternity Family Medicine 06/15/24 Laura Hernandez APRN.DUMPER [address] [place] [address] Registered Nurse Maternity Internal Medicine 06/15/24 Vilma Lin PA-C [address] [place] [address] Registered Nurse Maternity Family Medicine 06/15/24 Agency Trainer Relationship Specialty Start Date End Date Amanda Wallace MD [address] [place] [address] PCP - General Internal Medicine 12/17/23 Zaida Goodson PA-C [address] [place] [address] Registered Nurse Maternity Family Medicine 06/15/24 Laura Hernandez APRN.DUMPER [address] [place] [address] Registered Nurse Maternity Internal Medicine 06/15/24 Vilma Lin PA-C [address] [place] [address] Registered Nurse Maternity Family Medicine 06/15/24 Agency Trainer Relationship Specialty Start Date End Date Amanda Wallace MD [address] [place] [address] PCP - General Internal Medicine 12/17/23 Laura Hernandez APRN.DUMPER [address] [facility] [place] [address] Registered Nurse Maternity Internal Medicine 06/15/24 Agency Trainer Relationship Specialty Start Date End Date Amanda Wallace MD [address] [facility] [place] [address] PCP - General Internal Medicine 12/17/23 Laura Hernandez APRN.DUMPER [address] [facility] [place] [address] Registered Nurse Maternity Internal Medicine 06/15/24 Agency Trainer Relationship Specialty Start Date End Date Amanda Wallace MD [address] [facility] [place] [address] PCP - General Internal Medicine 12/17/23 Laura Hernandez HOUSESMITH.DUMPER [address] [facility] [place] [address] Registered Nurse Maternity Internal Medicine 06/15/24 Agency Trainer Relationship Specialty Start Date End Date Amanda Wallace MD [address] [facility] [place] [address] PCP - General Internal Medicine 12/17/23 Laura Hernandez HOUSESMITH.DUMPER [address] [facility] [place] [address] Registered Nurse Maternity Internal Medicine 06/15/24 Agency Trainer Relationship Specialty Start Date End Date Amanda Wallace MD [address] [place] [address] PCP - General Internal Medicine 12/17/23 Laura Hernandez APRN.DUMPER [address] [facility], [place] [address] Registered Nurse Maternity Internal Medicine 06/15/24 Agency Trainer Relationship Specialty Start Date End Date Amanda Wallace MD [address] [facility] [place] [address] PCP - General Internal Medicine 12/17/23 Laura Hernandez APRN.DUMPER [address] [facility] [place] [address] Registered Nurse Maternity Internal Medicine 06/15/24 Agency Trainer Relationship Specialty Start Date End Date Amanda Wallace MD [address] [facility] [place] [address] PCP - General Internal Medicine 12/17/23 Laura Hernandez APRN.DUMPER [address] [facility] [place] [address] Registered Nurse Maternity Internal Medicine 06/15/24 Agency Trainer Relationship Specialty Start Date End Date Amanda Wallace MD [address] [facility] [place] [address] PCP - General Internal Medicine 12/17/23 Laura Hernandez APRN.DUMPER [address] [facility] [place] [address] Registered Nurse Maternity Internal Medicine 06/15/24 Agency Trainer Relationship Specialty Start Date End Date Amanda Wallace MD [address] [facility] [place] [address] PCP - General Internal Medicine 12/17/23 Laura Hernandez APRN.DUMPER [address] [place] [address] Registered Nurse Maternity Internal Medicine 06/15/24 Agency Trainer Relationship Specialty Start Date End Date Amanda Wallace MD [address] [place], [place] [id number] PCP - General Internal Medicine 12/17/23 Laura Hernandez APRN.DUMPER [address] [place] [address] Registered Nurse Maternity Internal Medicine 06/15/24 Agency Trainer Relationship Specialty Start Date End Date Amanda Wallace MD [address] [place] [address] PCP - General Internal Medicine 12/17/23 Zaida Goodson PA-C [address] [place] [id number] Registered Nurse Maternity Family Medicine 06/15/24 09/28/24 Laura Hernandez APRN.DUMPER [address] [place] [address] Registered Nurse Maternity Internal Medicine 06/15/24 Vilma Lin PA-C [address] [place] [address] Registered Nurse Maternity Family Medicine 06/15/24 09/28/24 Agency Trainer Relationship Specialty Start Date End Date Amanda Wallace MD [address] [place], [place] [id number] PCP - General Internal Medicine 12/17/23 Laura Hernandez APRN.DUMPER [address] [place], [place] [id number] Registered Nurse Maternity Internal Medicine 06/15/24 Agency Trainer Relationship Specialty Start Date End Date Amanda Wallace MD [address] [place] [address] PCP - General Internal Medicine 12/17/23 Laura Hernandez APRN.DUMPER [address] [place] [address] Registered Nurse Maternity Internal Medicine 06/15/24 Agency Trainer Relationship Specialty Start Date End Date Amanda Wallace MD [address] [place] [address] PCP - General Internal Medicine 12/17/23 Laura Hernandez APRN.DUMPER [address] [place] [address] Registered Nurse Maternity Internal Medicine 06/15/24 Agency Trainer Relationship Specialty Start Date End Date Amanda Wallace MD [address] [place] [address] PCP - General Internal Medicine 12/17/23 Laura Hernandez HOUSESMITH.DUMPER [address] [place] [address] Registered Nurse Maternity Internal Medicine 06/15/24 Agency Trainer Relationship Specialty Start Date End Date Amanda Wallace MD [address] [place] [address] PCP - General Internal Medicine 12/17/23 Laura Hernandez APRN.DUMPER [address] [place] [address] Registered Nurse Maternity Internal Medicine 06/15/24 Agency Trainer Relationship Specialty Start Date End Date Amanda Wallace MD [address] [place] [address] PCP - General Internal Medicine 12/17/23 Laura Hernandez APRN.DUMPER [address] [place] [address] Registered Nurse Maternity Internal Medicine 06/15/24 Agency Trainer Relationship Specialty Start Date End Date Amanda Wallace MD [address] [place], [place] [address] PCP - General Internal Medicine 12/17/23 Laura Hernandez APRN.DUMPER [address] [place] [address] Registered Nurse Maternity Internal Medicine 06/15/24 Team Status: Active Member Role/Relationship Status Dates LAURA HERNANDEZ , POT ANNEALER-C Primary Care Provider Active Team Status: Inactive Member Role/Relationship Status Dates LAURA HERNANDEZ , POT ANNEALER-C Primary Care Provider Active St art: October 07, 2024 End: October 07, 2024 LAURA HERNANDEZ , POT ANNEALER-C Referring Provider Active Start : October 07, 2024 End: October 07, 2024 Dr. Pelon Hamilton DO Attending Provider Active Start: October 07, 2024 End: October 07, 2024 Team Status: Active Member Role/Relationship Status Dates LAURA HERNANDEZ , POT ANNEALER-C Primary Care Provider Active St art: January 01, 2025 Mickey Valencia POT ANNEALER, POT ANNEALER-C Attending Provider Active Start: January 01, 2025 Mickey Valencia POT ANNEALER, POT ANNEALER-C Referring Provider Active Start: January 01, 2025 Team Status: Inactive Member Role/Relationship Status Dates LAURA HERNANDEZ , POT ANNEALER-C Primary Care Provider Active St art: January 06, 2025 End: January 06, 2025 LAURA HERNANDEZ , POT ANNEALER-C Referring Provider Active Start : January 06, 2025 End: January 06, 2025 Dr. Pelon Hamilton DO Attending Provider Active Start: January 06, 2025 End: January 06, 2025 Team Status: Inactive Member Role/Relationship Status Dates LAURA HERNANDEZ POT ANNEALER-C Primary Care Provider Active St art: January 01, 2025 End: January 01, 2025 Mickey Valencia POT ANNEALER, POT ANNEALER-C Attending Provider Active Start: January 01, 2025 End: January 01, 2025 Mickey Valencia POT ANNEALER, POT ANNEALER-C Referring Provider Active Start: January 01, 2025 End: January 01, 2025 Agency Trainer Relationship Specialty Start Date End Date Amanda Wallace MD [address] [place] [address] PCP - General Internal Medicine 12/17/23 Laura Hernandez APRN.CNP [address] [place] [address] Registered Nurse Maternity Internal Medicine 06/15/24 Team Status: Inactive Member Role/Relationship Status Dates LAURA HERNANDEZ POT ANNEALER-C Primary Care Provider Active St art: January 14, 2025 End: January 14, 2025 LAURA HERNANDEZ , POT ANNEALER-C Referring Provider Active Start : January 14, 2025 End: January 14, 2025 Lorin Salinas NP-C Attending Provider Active Start: January 14, 2025 End: January 14, 2025 Team Status: Inactive Member Role/Relationship Status Dates LAURA HERNANDEZ POT ANNEALER-C Primary Care Provider Active St art: January 01, 2025 End: January 01, 2025 Mickey Valencia POT ANNEALER, POT ANNEALER-C Attending Provider Active Start: January 01, 2025 End: January 01, 2025 Mickey Valencia POT ANNEALER, POT ANNEALER-C Referring Provider Active Start: January 01, 2025 End: January 01, 2025 Team Status: Inactive Member Role/Relationship Status Dates LAURA HERNANDEZ POT ANNEALER-C Primary Care Provider Active St art: January 06, 2025 End: January 06, 2025 LAURA HERNANDEZ , POT ANNEALER-C Referring Provider Active Start : January 06, 2025 End: January 06, 2025 Dr. Pelon Hamilton , DO Attending Provider Active Start: January 06, 2025 End: January 06, 2025 Team Status: Inactive Member Role/Relationship Status Dates LAURA OLDER , POT ANNEALER-C Primary Care Provider Active St art: January 14, 2025 End: January 14, 2025 LAURA OLDER , POT ANNEALER-C Referring Provider Active Start : January 14, 2025 End: January 14, 2025 Lorin Salinas , POT ANNEALER-C Attending Provider Active Start: January 14, 2025 End: January 14, 2025 Team Status: Inactive Member Role/Relationship Status Dates LAURA OLDER , POT ANNEALER-C Primary Care Provider Active St art: February 06, 2025 End: February 06, 2025 LAURA OLDER , POT ANNEALER-C Referring Provider Active Start : February 06, 2025 End: February 06, 2025 Lorin Salinas POT ANNEALER-C Attending Provider Active Start: February 06, 2025 End: February 06, 2025 Team Status: Inactive Member Role/Relationship Status Dates LAURA OLDER , POT ANNEALER-C Primary Care Provider Active St art: February 13, 2025 End: February 13, 2025 LAURA OLDER , POT ANNEALER-C Referring Provider Active Start : February 13, 2025 End: February 13, 2025 Dr. Pelon Hamilton , DO Attending Provider Active Start: February 13, 2025 End: February 13, 2025 Goals (unrecognized section and content) Goals may be documented in a n alternate sectionGoals may be documented in an alternate sectionGoals may be documented in an alternate sectionGoals may be documented in an alternate sectionGoals may be documented in an alternate sectionGoals may be documented in an alternate sectionGoals may be documented in an alternate sectionGoals may be documented in an alternate sectionGoals may be documented in an alternate sectionGoals may be documented in an alternate sectionGoals may be documented in an alternate sectionGoals may be documented in an alternate sectionGoals may be documented in an alternate sectionGoals may be documented in an alternate sectionGoals may be documented in an alternate section FOR RECORDS PERTAINING TO PATIENTS WHO ARE OR HAVE BEEN ENROLLED IN A CHEMICAL DEPENDENCY/SUBSTANCEABUSE PROGRAM, SOME INFORMATION MAY BE OMITTED. This clinical summary was aggregated from multiple sources. Caution should be exercised in using it in the provision of clinical care. This summary normalizes information from multiple sources, and as a consequence, information in this document may materially change the coding, format and clinical context of patient data. In addition, data may be omitted in some cases. CLINICAL DECISIONS SHOULD BE BASED ON THE PRIMARY CLINICAL RECORDS. [facility] provides no warranty or guarantee of the accuracy or completeness of information in this document.
[2025-02-24] MEDS: Lactated Ringers 1,000 ML 15 ML IV (06:09)
--- NOTE | 2025-02-24 06:24 | PCM.HP.STD ---
HPI - General General Date of Admission: 02/24/25 Date of Service: 02/24/25 Chief Complaint: Duenas's esophagus and GERD HPI Narrative KARSON STEINBERG, is a 54 F who presents for surveillance of Duenas's esophagus *BGI established 9.12.30 pt reports a long history of GERD, IBS-C, Barretts. Pt reports that about a year ago she was told she has a small hiatal hernia. Pt states that she has nearly constant HB and nothing seems to be helpful. Pt reports waking in the middle of the night throwing up due to her HB. Pt reports taking Ibsrela and that if she did not she could go months without a bm. EGD 04.03.24 LA Grade B erosive esophagitis with no bleeding. Biopsied. No specimens collected. Chronic gastritis. Biopsied. Erythematous duodenopathy. Biopsied. GET 04.04.24 abnormal 60.4 minutes US and elastography 04.05.24 hepatic measurement 18.7cm with fatty infiltration, stiffness measures 5.6kPa compatible with F0-F1 Metavir score. HIDA 10.2.24 abnormal OV 10.7.24 OV 4.1.25 pt reports N/V has improved, was previously a nightly occurrence, is now only having it a few times a week. Pt reports that she is having a bm two times a week and continues with Ibsrela and states that this is effective for her. pt reports abdominal cramping when she eats, not relieved by a bm. Continues with Dexilant and Famotidine and reports these are helpful. OV 7.1.25 pt reports continued N/V 2-3 times a week. Has had BRBPR a few times in the last few days. Denies GI symptoms of concern at this time. Continues with Ibsrela, Dexilant, and Famotidine. OV 8.8.25 pt reports improved symptoms, notes N/V is less frequent. States that she occasionally feels like food is sitting at the base of her esophagus. Pt reports famotidine is helpful for her HB. [facility] Medical History High cholesterol Migraine headache On home oxygen therapy Wears glasses Wears dentures Cancer History of IBS Heartburn Gastric reflux Smoker Shortness of breath on exertion Chronic cough Leg cramps History of echocardiogram Cholelithiasis Irritable bowel syndrome with constipation Hiatal hernia Constipation Snoring Hx of migraines Lung disease Internal hemorrhoids History of uterine cancer H. pylori infection GERD (gastroesophageal reflux disease) Emphysema lung Bulimia nervosa Duenas's esophagus Asthma Anxiety Anorexia nervosa COPD (chronic obstructive pulmonary disease) Home Medications ?Medication ?Instructions ?Recorded ?Last Taken ?Type ergocalciferol (vitamin D2) 1,250 1,250 mcg PO QWEEK 12/09/21 02/19/25 History mcg (50,000 unit) capsule phenylephrine 0.25 %-cocoa butter 1 supp MA PRN PRN Hemorrhoids 02/09/22 Unknown History 88.44 % rectal suppository (Preparation H(phenyleph,cocoa buttr)) epinephrine 0.3 mg/0.3 mL 0.3 mg (0.3 mL) IM ONCE #1 ea 01/08/23 Unknown Rx injection, auto-injector (EpiPen) diclofenac sodium 1 % topical gel 2 g topical ONCE PRN rash 01/18/24 Unknown History promethazine 25 mg tablet 25 mg PO TID PRN nausea and 01/18/24 02/23/25 History vomiting PEP device #1 ea 02/05/24 Unknown Rx albuterol sulfate 2.5 mg/3 mL 2.5 mg (3 mL) inhalation Q6H PRN 02/05/24 02/24/25 05:00 Rx (0.083 %) solution for nebulization PRN Sob &/Or Wheezing #180 mL fluticasone propionate 50 1 spray BID #3 ea 02/05/24 02/22/25 Rx mcg/actuation nasal spray,suspension dexlansoprazole 30 mg 30 mg PO BID #60 caps 04/14/24 02/23/25 Rx capsule,biphase delayed release famotidine 20 mg tablet 20 mg PO BID PRN breakthrough 04/14/24 02/23/25 Rx heartburn #60 tabs dicyclomine 20 mg tablet 20 mg PO BID #60 tabs 04/16/24 02/23/25 Rx atorvastatin 20 mg tablet 20 mg PO QDAY 05/15/24 02/23/25 History metoclopramide HCl 10 mg tablet 10 mg PO QAC #90 tabs 06/03/24 02/23/25 Rx tenapanor 50 mg tablet (Ibsrela) 50 mg PO BID #180 tabs 08/28/24 02/23/25 Rx Lactobacillus acidophilus 2 2,000 mmu cells PO BID #60 tabs 01/06/25 02/23/25 Rx billion cell tablet albuterol sulfate 90 mcg/actuation 1 puff inhalation Q4H PRN PRN Sob 01/14/25 02/23/25 Rx aerosol inhaler (Ventolin HFA) &/Or Wheezing #8.5 grams amitriptyline 150 mg tablet 150 mg PO QHS 01/14/25 02/23/25 History doxycycline hyclate 100 mg capsule 100 mg PO BID #14 caps 01/14/25 02/23/25 Rx dupilumab 300 mg/2 mL subcutaneous 300 mg (2 mL) subcut Q2W #4 mL 01/14/25 02/20/25 Rx pen injector (Dupixent) famotidine 40 mg tablet 40 mg PO QDAY PRN GERD 01/14/25 Unknown History fluticasone fur. 200 mcg-umeclid 1 inh inhalation DAILY #3 ea 01/14/25 02/23/25 Rx 62.5 mcg-vilant 25 mcg inhalat.powder (Trelegy Ellipta) guaifenesin 1,200 mg tablet, 1,200 mg PO Q12H #60 tabs 01/14/25 02/23/25 Rx extended release 12 hr ipratropium 0.5 mg-albuterol 3 mg 3 ml inhalation Q4H PRN Shortness 01/14/25 Unknown Rx (2.5 mg base)/3 mL nebulization Of Breath Or Wheezing #180 mL soln loratadine 10 mg tablet (Claritin) 10 mg PO DAILY #90 tabs 01/14/25 02/23/25 Rx meloxicam 15 mg tablet 15 mg PO QDAY 01/14/25 02/23/25 History montelukast 10 mg tablet 10 mg PO DAILY #90 tabs 01/14/25 02/23/25 Rx rizatriptan 10 mg tablet 10 mg PO Q2H PRN migraine headache 01/14/25 Unknown History topiramate 25 mg tablet 25 mg PO QHS 01/14/25 02/23/25 History sucralfate 100 mg/mL oral 10 ml PO BID 30 days #600 mL 02/13/25 02/23/25 Rx suspension OXYGEN - Supplemental ([facility] 02/23/25 Unknown History INFORMATIONAL USE ONLY) Allergy/AdvReac Type Severity Reaction Status Date / Time Penicillins (PCN) Allergy Anaphylaxis Verified 02/24/25 05:54 Family History Mother Hypertension Heart disease Eczema AAA (abdominal aortic aneurysm) Fibromyalgia Father Lung cancer Alcohol abuse Colon cancer Sister Hypertension Asthma Migraine headache Gout Fibromyalgia Aunt Breast cancer Aunt Breast cancer Surgical History History of colonoscopy History of esophagogastroduodenoscopy (EGD) History of cholecystectomy History of hysterectomy History of appendectomy Social History Smoking Status: Current every day smoker tobacco type: cigarettes alcohol intake: current alcohol intake frequency: holidays/special occasions only substance use type: does not use ROS Constitutional Constitutional: Denies fatigue, fever(s), poor appetite, weight gain or weight loss Gastrointestinal Gastrointestinal: Denies belching, bloating, change in bowel habits, change in stool character, chewing difficulty, coffee ground emesis, constipation, cramping, diarrhea, dyspepsia, dysphagia, early satiety, excessive flatus, fecal incontinence, heartburn, hematemesis, hematochezia, hemorrhoids, loose stools, melena, nausea, odynophagia, rectal bleeding, tenesmus, vomiting or weight changes Vital Signs Vital Signs Vital Signs: 02/24/25 05:58 02/24/25 06:00 Temperature 96.9 F L Temperature Source Temporal Pulse Rate 61 Respiratory Rate 16 Respiratory Pattern Normal Blood Pressure 126/77 H Blood Pressure Mean 93 Blood Pressure Source Monitor Blood Pressure Position Semi-Fowlers Blood Pressure Location Left Arm Pulse Ox 99 Oxygen Delivery Method Room Air Weight Weight: 117 lb 9.6 oz Body Mass Index (BMI) 22.2 Physical Exam Const alert, oriented x3, no apparent distress and healthy appearing General Appearance: cooperative GI normal to inspection, nondistended, normoactive bowel sounds, soft to palpation, non-tender and non-distended Percussion: normal to percussion Rectal Exam: deferred Assessment & Plan Assessment/Plan (1) Dysphagia: (2) Duenas esophagus determined by endoscopy: PLAN: Assessment and Plan Assessment and Plan (1) Duenas esophagus determined by endoscopy: Status: Acute Plan: KARSON STEINBERG, is a 53 F who presents to the office today for FU with desire to review EGD results and complaints of continued nausea and emesis waking her up at night due to severe heartburn. Differential diagnoses include: SOD, delayed gastric emptying, steatosis. Discussed plan with her and her spouse. amylase/lipase to determine type of SoD consider surgery consult for sphincterotomy divide dose of dexlansoprazole to BID add famotidine 20mg PO BID, one dose at HD, other dose as needed metoclopramide 10mg PO TID [id number] discussed smoking cessation, she's trying to get Chantix call with results office follow-up 6 months repeat EGD (2) Gastritis: Status: Acute Qualifiers: Gastritis type: other gastritis Chronicity: chronic Gastritis bleeding: without bleeding Qualified Code(s): K29.50 - Unspecified chronic gastritis without bleeding Plan: Secondary to food allergies and cigarettes. We will add a probiotic twice a day. As it can help with the bloating that is secondary to COPD induced bloating. (3) Sphincter of Oddi dysfunction: Status: Acute Plan: No problems at this time. (4) Dysphagia: Status: Acute Plan: Esophageal dysphagia secondary to cough induced reflux. I will put her on sulcal fate therapy twice a day and schedule her for upper endoscopy. Medications: New sucralfate 10 mL PO BID 600 mL 2RF 30 days
--- NOTE | 2025-02-24 06:25 | PCM.PRE.AN2 ---
ASA Classification* ASA Classification ASA Classification: 3 Assessment & Plan Anesthesia* Anesthesia Assessment Anesthesia Assessment: Discussed sedation and/or anesthesia options, risks, benefits, and alternatives with patient/parents/legal guardian/POA. Questions invited. The patient/parents/legal guardian/POA seems to understand and agrees to proceed with anesthesia plan. Reviewed the physical assessment, medical history, allergy history and patient home medications list prior to surgery/procedure/anesthetic and documented any changes. Performed airway and anesthesia risk assessments. Anesthesia Type Anesthesia Type: MAC History Source History Obtained from:: Patient and Chart Anesthesia Focused Assessment* Temperature: 96.9 F Pulse Rate: 61 Blood Pressure: 126/77 Respiratory Rate: 16 Pulse Ox: 99 Oxygen Delivery Method: Room Air Airway Assessment Mouth opens: >3 cm Mallampati Score: II Teeth Condition: Dentures (Full upper dentures are out.) and Missing (Multiple missing teeth on the bottom. Remaining teeth are tight.) Neck Range of motion (ROM): Full ROM Labs Anesthesia Preop lab: CBC WBC 11.2 K/mm3 (4.4-11.0) H 01/21/24 17:40 01/21/24 RBC 5.11 M/mm3 (4.2-5.4) 01/21/24 17:40 01/21/24 Hgb 14.2 g/dL (12.0-15.0) 01/21/24 17:40 01/21/24 Hct 43.9 % (37-47) 01/21/24 17:40 01/21/24 Plt Count 396 K/mm3 (150-450) 01/21/24 17:40 01/21/24 CHEMISTRY Potassium 4.0 mmol/L (3.5-5.1) 03/14/24 09:44 03/14/24 Sodium 137 mmol/L (136-145) 03/14/24 09:44 03/14/24 Magnesium 2.2 mg/dL (1.6-2.6) 01/21/24 17:40 01/21/24 Phosphorus 3.3 mg/dL (2.5-4.9) 10/10/15 04:50 10/10/15 BUN 13 mg/dL (7-18) 03/14/24 09:44 03/14/24 Creatinine 0.92 mg/dL (0.55-1.02) 03/14/24 09:44 03/14/24 Glucose 97 mg/dL (74-106) 03/14/24 09:44 03/14/24 TSH 3.390 uIU/mL (0.358-3.740) 03/14/24 09:44 03/14/24 COAG PT 15.1 SECONDS (11.7-14.9) H 05/27/20 16:45 05/27/20 Pre-Assessment Diagnosis/Proposed Procedure Planned Operative Procedure(s): EGD Anesthesia History Anesthesia History - platinum smith: Anesthesia History - platinum smith Hx Hospitalization No 02/23/25 11:50 Any Problems With Anesthesia No 02/23/25 11:50 Cholinesterase deficiency No 02/23/25 11:50 You/Your Family Experience No 02/23/25 11:50 fever (hyperthermia) with Relationship Recent Exposure to Contagious No 02/24/25 05:58 Disease Does patient have nerve No 02/23/25 11:50 stimulator Patient instructed to have device shut off --Does patient have Pacemaker No 02/24/25 06:00 or ICD? When Was Last Pacemaker Check QUESTION #4 FULL TEXT: You/Your Family Experience fever (hyperthermia) with Anesthesia Last Oral Intake Last Oral intake: Last Oral Intake NPO since 23:30 02/24/25 06:00 Meds taken in AM with sips of No 02/24/25 06:00 water? Meds patient instructed to take am of surgery PONV PONV - platinum smith: PONV - platinum smith Female Yes 02/23/25 11:50 HX of Motion Sickness No 02/23/25 11:50 HX of N/V After Surgery No 02/23/25 11:50 Non-Smoker No 02/23/25 11:50 Duration of Surgery greater No 02/23/25 11:50 than 60 minutes Number of Risk Factors 1 02/23/25 11:50 PONV Score Low Risk 02/23/25 11:50 Height & Weight Height & Weight: Anesthesia: Height & Weight Height 5 ft 1 in 02/24/25 06:00 Weight: 53.342 kg 02/24/25 06:00 Body Mass Index (BMI) 22.2 02/24/25 06:00 Respiratory Assessment Respiratory Assessment - platinum smith: Respiratory Tract Infection Hx - platinum smith Hx Respiratory Tract Infection No 02/23/25 11:50 STOP Sleep Apnea STOP Sleep Apnea - platinum smith: STOP Sleep Apnea - platinum smith Hx Hypertension No 02/23/25 11:50 Hx Sleep Apnea No: 4L O2 @ NIGHT VIA NC 02/23/25 11:50 CPAP BIPAP Do you snore loudly (louder No 02/23/25 11:50 than talking or can be heard Do you often feel tired/ No 02/23/25 11:50 fatigued/ sleepy during daytime? Has anyone observed you stop No 02/23/25 11:50 breathing during sleep? STOP Results Negative 02/23/25 11:50 QUESTION #5 FULL TEXT : Do you snore loudly (louder than talking or can be heard through closed doors)? Tobacco Use History Tobacco Use History - platinum smith: Tobacco Use History - platinum smith Tobacco Use Smoking Status Current every day smoker 02/23/25 11:50 Hx Tobacco Use Yes 02/23/25 11:50 Years Smoking Packs Smoked per Day 0.5 02/23/25 11:50 Smoking Cessation Date was within the last 15 years Hx Smoking Cessation Date Hx Smoking Cessation Counseling Any additional information?: Yes Smoking Status: Current every day smoker (Patient did not smoke today.) Hematologic Medial History Hematologic Hx - platinum smith: Hematologic Medical Hx - knitter helper Hx of Blood Transfusion No 02/23/25 11:50 Hx of Transfusion in last 3 No 02/23/25 11:50 Months Date of Last Transfusion (if within last 3 months) Ever experience any problems No 02/23/25 11:50 with transfusion(s)? Specify any problems Hx of Preganancy in last 3 N/A 02/23/25 11:50 Months Nurse Filling Out Transfusion NBUCHER 02/23/25 11:50 & Questions: Date: 02/23/25 02/23/25 11:50 Time: 11:51 02/23/25 11:50 Patient unable to answer at this time (ie. confused, unrespo /Reproduction History /Reproductive History - platinum smith: /Reproductive Hx- platinum smith Hx Now No 02/23/25 11:50 Gestational Age (in weeks): EDC: Hx Hx Para Hx Section SAB No 02/23/25 11:50 Active Medications Active Medications: Current Medications Generic Name Dose Route Start Last Admin Trade Name Freq PRN Reason Stop Dose Admin Lactated Ringer's 1,000 mls @ 15 mls/hr 02/24/25 05:45 02/24/25 06:09 IV 15 mls/hr .Q48H HARRY Administration PFSH Medical History High cholesterol Migraine headache On home oxygen therapy Wears glasses Wears dentures Cancer History of IBS Heartburn Gastric reflux Smoker Shortness of breath on exertion Chronic cough Leg cramps History of echocardiogram Cholelithiasis Irritable bowel syndrome with constipation Hiatal hernia Constipation Snoring Hx of migraines Lung disease Internal hemorrhoids History of uterine cancer H. pylori infection GERD (gastroesophageal reflux disease) Emphysema lung Bulimia nervosa Duenas's esophagus Asthma Anxiety Anorexia nervosa COPD (chronic obstructive pulmonary disease) Home Medications ?Medication ?Instructions ?Recorded ?Last Taken ?Type ergocalciferol (vitamin D2) 1,250 1,250 mcg PO QWEEK 12/09/21 02/19/25 History mcg (50,000 unit) capsule phenylephrine 0.25 %-cocoa butter 1 supp ID PRN PRN Hemorrhoids 02/09/22 Unknown History 88.44 % rectal suppository (Preparation H(phenyleph,cocoa buttr)) epinephrine 0.3 mg/0.3 mL 0.3 mg (0.3 mL) IM ONCE #1 ea 01/08/23 Unknown Rx injection, auto-injector (EpiPen) diclofenac sodium 1 % topical gel 2 g topical ONCE PRN rash 01/18/24 Unknown History promethazine 25 mg tablet 25 mg PO TID PRN nausea and 01/18/24 02/23/25 History vomiting PEP device #1 ea 02/05/24 Unknown Rx albuterol sulfate 2.5 mg/3 mL 2.5 mg (3 mL) inhalation Q6H PRN 02/05/24 02/24/25 05:00 Rx (0.083 %) solution for nebulization PRN Sob &/Or Wheezing #180 mL fluticasone propionate 50 1 spray BID #3 ea 02/05/24 02/22/25 Rx mcg/actuation nasal spray,suspension dexlansoprazole 30 mg 30 mg PO BID #60 caps 04/14/24 02/23/25 Rx capsule,biphase delayed release famotidine 20 mg tablet 20 mg PO BID PRN breakthrough 04/14/24 02/23/25 Rx heartburn #60 tabs dicyclomine 20 mg tablet 20 mg PO BID #60 tabs 04/16/24 02/23/25 Rx atorvastatin 20 mg tablet 20 mg PO QDAY 05/15/24 02/23/25 History metoclopramide HCl 10 mg tablet 10 mg PO QAC #90 tabs 06/03/24 02/23/25 Rx tenapanor 50 mg tablet (Ibsrela) 50 mg PO BID #180 tabs 08/28/24 02/23/25 Rx Lactobacillus acidophilus 2 2,000 mmu cells PO BID #60 tabs 01/06/25 02/23/25 Rx billion cell tablet albuterol sulfate 90 mcg/actuation 1 puff inhalation Q4H PRN PRN Sob 01/14/25 02/23/25 Rx aerosol inhaler (Ventolin HFA) &/Or Wheezing #8.5 grams amitriptyline 150 mg tablet 150 mg PO QHS 01/14/25 02/23/25 History doxycycline hyclate 100 mg capsule 100 mg PO BID #14 caps 01/14/25 02/23/25 Rx dupilumab 300 mg/2 mL subcutaneous 300 mg (2 mL) subcut Q2W #4 mL 01/14/25 02/20/25 Rx pen injector (Dupixent) famotidine 40 mg tablet 40 mg PO QDAY PRN GERD 01/14/25 Unknown History fluticasone fur. 200 mcg-umeclid 1 inh inhalation DAILY #3 ea 01/14/25 02/23/25 Rx 62.5 mcg-vilant 25 mcg inhalat.powder (Trelegy Ellipta) guaifenesin 1,200 mg tablet, 1,200 mg PO Q12H #60 tabs 01/14/25 02/23/25 Rx extended release 12 hr ipratropium 0.5 mg-albuterol 3 mg 3 ml inhalation Q4H PRN Shortness 01/14/25 Unknown Rx (2.5 mg base)/3 mL nebulization Of Breath Or Wheezing #180 mL soln loratadine 10 mg tablet (Claritin) 10 mg PO DAILY #90 tabs 01/14/25 02/23/25 Rx meloxicam 15 mg tablet 15 mg PO QDAY 01/14/25 02/23/25 History montelukast 10 mg tablet 10 mg PO DAILY #90 tabs 01/14/25 02/23/25 Rx rizatriptan 10 mg tablet 10 mg PO Q2H PRN migraine headache 01/14/25 Unknown History topiramate 25 mg tablet 25 mg PO QHS 01/14/25 02/23/25 History sucralfate 100 mg/mL oral 10 ml PO BID 30 days #600 mL 02/13/25 02/23/25 Rx suspension OXYGEN - Supplemental ([facility] 02/23/25 Unknown History INFORMATIONAL USE ONLY) Allergy/AdvReac Type Severity Reaction Status Date / Time Penicillins (PCN) Allergy Anaphylaxis Verified 02/24/25 05:54 Family History Mother Hypertension Heart disease Eczema AAA (abdominal aortic aneurysm) Fibromyalgia Father Lung cancer Alcohol abuse Colon cancer Sister Hypertension Asthma Migraine headache Gout Fibromyalgia Aunt Breast cancer Aunt Breast cancer Surgical History History of colonoscopy History of esophagogastroduodenoscopy (EGD) History of cholecystectomy History of hysterectomy History of appendectomy Social History Smoking Status: Current every day smoker tobacco type: cigarettes alcohol intake: current alcohol intake frequency: holidays/special occasions only substance use type: does not use Review of Systems (Anesthesia) ROS Narrative System reviewed and no additional complaints, except as documented.
--- NOTE | 2025-02-24 06:30 | EGD_PTH ---
PATIENT: KARSON STEINBERG LOC: EN U#:[id number] AGE/SX: 54/F ROOM: RE02/24/[address]: Dr. Pelon Hamilton DO : 1970 BED: DIS: 02/24/2025 SPEC #: [id number] RECD: 02/24/25 07:34 STATUS: SHANNAN RENereida #: [id number] KATIE: 02/24/25 06:[address]: Pelon Hamilton DEPT: SURGICAL PATHOLOGY RECD BY: Destin De La Cruz ENTERED: 02/24/25 13:25 SP TYPE: EGD BIOPSY RENETTA DR: LAURA RUCKER, MORTGAGE COUNSELOR-C Tissues: A - Esophagus, NOS Procedures: Surgery Specimen Level IV HEADER OPERATION: EGD with biopsy PRE-OP DIAGNOSIS: Dysphagia, Duenas's esophagus determined by endoscopy TISSUE SUBMITTED: A- Distal esophagus biopsy MICROSCOPIC DIAGNOSIS A. Distal esophagus, biopsy: Duenas mucosa. Negative for dysplasia. MICROSCOPIC DESCRIPTION Slides are reviewed. GROSS DESCRIPTION A. Received in fixative is one container labeled with the patient's name and designated Distal esophagus biopsy. The specimen consists of four irregular fragments of light lewis soft tissue that measure 0.3 to 0.5 cm. The specimen is totally submitted in one cassette. [place] 02/24/2025 CPT:18597 ADDENDUM ADDENDUM ADDENDUM ADDENDUM ADDENDUM ADDENDUM ADDENDUM ADDENDUM ADDENDUM ADDENDUM ADDENDUM 04/09/2025 15:58 ADDENDUM 04/09/2025 15:58 ADDENDUM 04/09/2025 15:58 ADDENDUM 04/09/2025 15:58 ADDENDUM 04/09/2025 15:58 This addendum is added to incorporate an outside pathology consultation report. [facility] - [facility] REPORT - A1 : Risk Class: LOW Risk Score: 4.9 5-year probability of progression: 5% Please see complete above mentioned consultation report in EMR
--- NOTE | 2025-02-24 06:54 | PCM.POST.ANE ---
Anesthesia: Postop Eval I Current Vital Signs Temperature: 97.2 F Pulse Rate: 72 Blood Pressure: 102/67 Respiratory Rate: 16 Pulse Ox: 95 Oxygen Delivery Method: Room Air Assessment Airway patent: Yes Spontaneous unlabored respirations: Yes Mental status: Asleep nausea: No Vomiting: No Anesthesia Complication: No Fluid Hydration Crystalloid volume administer (ml): 300 Total IV fluid infused: 300 Progress Note Anesthesia document: Postop Eval 1 completed: Yes
--- NOTE | 2025-02-24 06:55 | OP.EGD_ITS ---
Patient Name: Jane Malik Procedure Date: 02/24/2025 6:19 AM Date of : 1970 Age: 54 Procedure: Upper GI endoscopy Indications: Follow-up of Duenas's esophagus Providers: Pelon Hamilton DO Referring MD: Abdelrahman Lutz Medicines: Monitored Anesthesia Care Patient Profile: This is a 54 year old female. Refer to note in patient chart for documentation of history and physical. Patient has symptoms of chronic heartburn and chronic nausea. Her most recent EGD for Duenas's biopsy. Complications: No immediate complications. Procedure: Pre-Anesthesia Assessment: - Prior to the procedure, a History and Physical was performed, and patient medications and allergies were reviewed. The patient is competent. The risks and benefits of the procedure and the sedation options and risks were discussed with the patient. All questions were answered and informed consent was obtained. Patient identification and proposed procedure were verified by the physician in the pre-procedure area. Mental Status Examination: alert and oriented. Airway Examination: normal oropharyngeal airway and neck mobility. Respiratory Examination: clear to auscultation. CV Examination: normal. Prophylactic Antibiotics: The patient does not require prophylactic antibiotics. Prior Anticoagulants: The patient has taken no anticoagulant or antiplatelet agents except for NSAID medication. ASA Grade Assessment: II - A patient with mild systemic disease. After reviewing the risks and benefits, the patient was deemed in satisfactory condition to undergo the procedure. The anesthesia plan was to use monitored anesthesia care (MAC). Immediately prior to administration of medications, the patient was re-assessed for adequacy to receive sedatives. The heart rate, respiratory rate, oxygen saturations, blood pressure, adequacy of pulmonary ventilation, and response to care were monitored throughout the procedure. The physical status of the patient was re-assessed after the procedure. After obtaining informed consent, the endoscope was passed under direct vision. Throughout the procedure, the patient's blood pressure, pulse, and oxygen saturations were monitored continuously. The gastroscope was introduced through the mouth, and advanced to the second part of duodenum. The upper GI endoscopy was accomplished without difficulty. The patient tolerated the procedure well. Scope In: 6:39:24 AM Scope Out: 6:42:16 AM Total Procedure Duration Time 0 hours 2 minutes 52 seconds Findings: There were esophageal mucosal changes secondary to established short-segment Duenas's disease present in the lower third of the esophagus. The maximum longitudinal extent of these mucosal changes was 3 cm in length. Mucosa was biopsied with a cold forceps for histology in a targeted manner at intervals of 1 cm in the lower third of the esophagus. One specimen bottle was sent to pathology. Verification of patient identification for the specimen was done. Estimated blood loss was minimal. Suspect gastroparesis due to absence of peristalsis, patient symptoms and retained gastric contents. No gross lesions were noted in the entire examined duodenum. Impression: - Esophageal mucosal changes secondary to established short-segment Duenas's disease. Biopsied. - Gastroparesis. - No gross lesions in the entire examined duodenum. Recommendation: - Discharge patient to home. - Resume previous diet. - Continue present medications. - Await pathology results. Procedure Code(s): --- Professional --- 98447, Esophagogastroduodenoscopy, flexible, transoral; with biopsy, single or multiple CPT copyright 2021 [employer]. All rights reserved. The codes documented in this report are preliminary and upon marketing analytics specialist review may be revised to meet current compliance requirements. Pelon Hamilton DO 02/24/2025 6:54:11 AM This report has been signed electronically. Number of Addenda: 0 Note Initiated On: 02/24/2025 6:19 AM
--- NOTE | 2025-02-24 06:55 | OP.PROVAT_ITS ---
02/24/2025 Abdelrahman Lutz Re : Upper GI endoscopy procedure for Jane Malik Archie Glover This procedure was performed on Monday, February 24, 2025. My impressions and recommendations are as follows: Impressions : - Esophageal mucosal changes secondary to established short-segment Duenas's disease. Biopsied. - Gastroparesis. - No gross lesions in the entire examined duodenum. Recommendations : - Discharge patient to home. - Resume previous diet. - Continue present medications. - Await pathology results. My findings are described in the full procedure note, which is enclosed. If I can be of further assistance, please feel free to contact me at . Sincerely, Pelon Hamilton, 02/24/2025 6:54:11 AM This report has been signed electronically.
--- NOTE | 2025-02-24 07:45 | PCM.POSTANE2 ---
Anesthesia Postop Eval I Sum Postop Eval Completion status Anesthesia document: Postop Eval 1 completed: Yes Anesthesia Postop Eval I Summary Anesthesia Postop Eval I Summary: Anesthesia Postop Eval I: Assessment Summary Airway patent Yes 02/24/25 06:55 [email or web address] Spontaneous unlabored Yes 02/24/25 06:55 [email or web address] respirations Mental status Asleep 02/24/25 06:55 [email or web address] nausea No 02/24/25 06:55 [email or web address] Vomiting No 02/24/25 06:55 [email or web address] Anesthesia Postop Eval I: Fluid Summary Crystalloid volume administer 300 02/24/25 06:55 [email or web address] (ml) Colloids volume administered ( ml) Blood Product volume administered (ml) Total IV fluid infused 300 02/24/25 06:55 [email or web address] Anesthesia Postop Eval I: Summary Notes Anesthesia Complication No 02/24/25 06:55 [email or web address] Anesthesia Complication Comment: Post-operative progress note Anesthesia: Postop Eval II Evaluation Mental status: Awake Pain Level: 0 nausea: No Vomiting: No Complications Anesthesia Complication: No
== END 2025-02-24 07:17 | disposition home or self-care (01) ==
LOC: EN 05:25 → AC 05:26
PROVIDERS: PCP Nurse Practitioner; Referring Provider Nurse Practitioner; Visit Provider Internal Medicine Gastroenterology
PROC: 0DJ08ZZ Inspection of Upper Intestinal Tract, Via Natural or Artificial Opening Endoscopic (ICD-10-PCS; CPT 43235; principal; 2025-02-24 06:25)
DX: K22.70 Barrett's esophagus without dysplasia (principal); J44.9 Chronic obstructive pulmonary disease, unspecified; Z90.710 Acquired absence of both cervix and uterus; G43.909 Migraine, unspecified, not intractable, without status migrainosus; Z79.899 Other long term (current) drug therapy; E78.00 Pure hypercholesterolemia, unspecified; Z79.51 Long term (current) use of inhaled steroids; K31.84 Gastroparesis; R13.10 Dysphagia, unspecified; Z90.49 Acquired absence of other specified parts of digestive tract; F17.210 Nicotine dependence, cigarettes, uncomplicated; K83.4 Spasm of sphincter of Oddi; K21.9 Gastro-esophageal reflux disease without esophagitis
CPT/HCPCS: 43239; 88305; J2405

== ENCOUNTER → 2025-03-10 | Outpatient (CLI) | payer MEDICARE, SELFPAY ==
--- NOTE | 2025-03-10 08:07 | CT_ITS ---
PROCEDURE: CHEST WITH CONTRAST 03/10/2025 REASON FOR EXAM: AXILLARY ADENOPATHY, MEDIASTINAL ADENOPATHY TECHNIQUE: Procedure Code: CTCHW Modality: CT Procedure: CHEST WITH CONTRAST Coronal and Sagittal reconstruction series were provided. CONTRAST: Isovue 370 VOLUME: 100 mL One or more dose reduction techniques were used (e.g., Automated exposure control, adjustment of the mA and/or kV according to patient size, use of iterative reconstruction technique). RADIATION DOSE SUMMARY: CTDlvol: 14.37 mGy DLP: 163.38 mGycm COMPARISON: CT chest without contrast, 01/01/2025. FINDINGS: PULMONARY NODULES: (Only nodules >3mm are reported) Lower neck:The thyroid gland is normal. There is no supraclavicular lymphadenopathy. Mediastinum:There are few stable reactive mediastinal lymph nodes. Heart and Vasculature:The heart size is normal. There is no pericardial effusion. There is minimal calcific vascular disease of the thoracic aorta and coronary arteries. Esophagus:Normal. Upper Abdomen:There is minimal calcific vascular disease of the visualized abdominal aorta. Suspect cholecystectomy. Chest wall:There are multiple stable reactive axillary lymph nodes bilaterally. There is osteopenia of the thoracic spine. There is mild dextroscoliosis of the thoracic spine. Lungs, airways and pleura: There is stable pleural-parenchymal scarring in both lung apices. There is mild upper lobe predominant emphysema with both centrilobular and paraseptal components. There has been interval resolution of multiple areas of ground-glass opacity in the mid and lower lung zones bilaterally. There are multiple stable pleural-based nodules in the lower lobe of the right lung, consistent with reactive lymph nodes. There are no new pulmonary nodules. There are no pleural effusions. CT/Chest WITH Contrast IMPRESSION: 1. Interval clearing of multiple areas of ground-glass opacity in both lungs a s described. 2. Stable pleural-based nodules in the lower lobe of the right lung consistent with reactive lymph nodes. 3. There are no new pulmonary nodules. 4. Emphysema. 5. Minimal calcific vascular disease. 6. Stable reactive mediastinal and axillary lymph nodes. Recommendation: Follow-up low-dose chest CT in 12 months. [id number]
== END | disposition home or self-care (01) ==
LOC: CT 08:03
PROVIDERS: PCP Nurse Practitioner; Referring Provider Nurse Practitioner Family; Visit Provider Nurse Practitioner Family
DX: R91.1 Solitary pulmonary nodule (principal)
CPT/HCPCS: 71260

== ENCOUNTER → 2025-03-31 | Outpatient (CLI) | payer MEDICARE, SELFPAY ==
--- NOTE | 2025-03-31 07:51 | NM_ITS ---
PROCEDURE: GASTRIC EMPTYING STUDY - 4 HR 03/31/2025 REASON FOR EXAM: NASUEA COMPARISON: None TECHNIQUE: Procedure Code: [id number] Modality: NM Procedure: GASTRIC EMPTYING STUDY - 4 HR The patient ingested a standard meal of 2 cooked eggs with 1 mCi of sulfur colloid, 2 slices of bread, to passive butter and 6 oz of water. Anterior and posterior planar images of the upper abdomen were obtained for 1 minute immediately following the meal at 1h, 2h and 4h if more than 10% of the activity persisted within the stomach. Regions of interest were drawn, and a geometric mean was used to calculate a [id number]. Medications taken in the past 24 hours that may affect gastric emptying: None RADIOPHARMACEUTICAL: 1 mCi of technetium 99 M sulfur colloid. FINDINGS: Percent activity remaining in stomach: 1 hour 78 % (normal 37-90%) 2 hours: 65 % (normal 30-60%) 4 hours: 14 % (normal 0-10%) Raw data T1/2 = 149.6 minutes NM/Gastric Emptying Study - 4 HR IMPRESSION: Prolonged solid phase gastric emptying. Reading Location: [id number]
== END | disposition home or self-care (01) ==
LOC: NM 07:48
PROVIDERS: PCP Nurse Practitioner; Referring Provider Nurse Practitioner Acute Care; Visit Provider Nurse Practitioner Acute Care
DX: R11.0 Nausea (principal); K31.84 Gastroparesis
CPT/HCPCS: 78264; A9541